=== PATIENT | female | born 1935 | race Caucasian/White ===

== ENCOUNTER 2022-09-08 07:28 | Outpatient (OUT) | payer MEDICARE, OTHER, SELFPAY ==
[2022-09-08 08:37] LABS: BUN Creatinine Ratio 29.3; Calcium 8.9 mg/dL (8.5-10.1); Carbon Dioxide 27.6 mmol/L (21.0-32.0); Chloride 100 mmol/L (98-107); Estimated GFR (African America 41 (>=60); Estimated GFR (Non-African Ame 34 (>=60); Glucose 169 mg/dL (74-106); Potassium 4.6 mmol/L (3.5-5.1); Sodium 136 mmol/L (136-145)
== END 2022-09-08 07:29 ==
LOC: LAB 07:32
PROVIDERS: PCP Internal Medicine; Visit Provider Internal Medicine Cardiovascular Disease
DX: I25.10 Atherosclerotic heart disease of native coronary artery without angina pectoris (principal); I48.91 Unspecified atrial fibrillation; I25.5 Ischemic cardiomyopathy; I50.9 Heart failure, unspecified
CPT/HCPCS: 36415; 80048; 83880

== ENCOUNTER 2023-01-18 10:33 | Outpatient (OUT) | payer MEDICARE, OTHER, SELFPAY ==
[2023-01-18 11:00] LABS: Basophils Absolute Auto 0.1 10^3/uL (0.0-0.1); Basophils Percent Auto 0.9 % (0.2-2.0); Eosinophils Absolute Auto 0.2 10^3/uL (0.0-0.7); Eosinophils Percent Auto 2.2 % (0.9-7.0); Hematocrit 44.2 % (36.0-48.0); Hemoglobin 14.7 g/dL (12.0-16.0); Immature Granulocytes Abs Auto 0.04 10^3/uL (0.00-0.03); Immature Granulocytes Pct Auto 0.5 % (0.0-0.5); Lymphocytes Absolute Auto 2.3 10^3/uL (1.2-3.8); Lymphocytes Percent Auto 28.9 % (20.5-60.0); Mean Corpuscular HGB Conc 33.3 g/dL (29.9-35.2); Mean Corpuscular Hemoglobin 31.7 pg (26.7-34.0); Mean Corpuscular Volume 95.5 fL (81.0-99.0); Mean Platelet Volume 11.4 fL (9.5-13.5); Monocytes Absolute Auto 0.7 10^3/uL (0.3-0.8); Monocytes Percent Auto 9.2 % (1.7-12.0); Neutrophils Absolute Auto 4.6 10^3/uL (1.4-6.5); Neutrophils Percent Auto 58.3 % (43.0-75.0); Platelet Count 193 10^3/uL (150-450); Red Blood Count 4.63 10^6/uL (4.20-5.40); Red Cell Distribution Width 13.3 % (11.0-15.0); White Blood Count 7.9 10^3/uL (4.0-11.0)
[2023-01-18 11:17] LABS: Estimated Average Glucose 160 mg/dL; Glycohemoglobin A1C 7.2 % (4.5-6.2)
[2023-01-18 11:52] LABS: Alanine Aminotransferase 25 U/L (14-59); Albumin Globulin Ratio 0.8; Albumin Level 3.3 g/dL (3.4-5.0); Alkaline Phosphatase 98 U/L (46-116); Anion Gap 14.5; Aspartate Amino Transferase 17 U/L (15-37); BUN Creatinine Ratio 27.1; Bilirubin Total 0.6 mg/dL (0.2-1.0); Calcium 9.1 mg/dL (8.5-10.1); Carbon Dioxide 26.9 mmol/L (21.0-32.0); Chloride 100 mmol/L (98-107); Estimated GFR (African America 48 (>=60); Estimated GFR (Non-African Ame 39 (>=60); Globulin 4.2 g/dL; Glucose 189 mg/dL (74-106); Potassium 4.4 mmol/L (3.5-5.1); Sodium 137 mmol/L (136-145); Total Protein 7.5 g/dL (6.4-8.2)
== END 2023-01-18 10:34 | disposition home or self-care (01) ==
LOC: LAB 10:35
PROVIDERS: PCP Internal Medicine; Visit Provider Internal Medicine
DX: N18.30 Chronic kidney disease, stage 3 unspecified (principal); G62.9 Polyneuropathy, unspecified; E11.9 Type 2 diabetes mellitus without complications
CPT/HCPCS: 36415; 80053; 82607; 83036; 85025

== ENCOUNTER 2023-10-05 07:13 | Outpatient (OUT) | payer MEDICARE, OTHER, SELFPAY ==
--- OUTSIDE RECORDS SUMMARY | 2023-10-05 07:18 | XMS_ITS | CCD ---
Author Organization [facility] Care Team Providers Care Securities Research Analyst Name Role Phone Darrian Benton Unavailable Unavailable GLORIA SARMED Admitting Unavailable GLORIASUNILMED Attending Unavailable ROMARIO BAKER Primary Care Unavailable ER, JOVANNI Referring Unavailable [place] Procedure Practitioner Unavailab le UNKNOWN, PROVIDER Surgeon Unavailable MD Quan Schultz Primary Care Provider [phone] MD Toi Johnson Admit Provider MD Brissa Hoffman Attending Provider FAWWAD, GOOD H Admitting Unavailable FAWWAD, GOOD H Attending Unavailable FAWWAD, GOOD H Consulting Unavailable FAWWAD, GOOD H Primary Care Unavailable FAWWAD, GOOD H Attending Unavailable FAWWAD, GOOD H Consulting Unavailable FAWWAD, GOOD H Primary Care Unavailable FAWWAD, GOOD H Admitting Unavailable FAWWAD, GOOD H Admitting Unavailable FAWWAD, GOOD H Attending Unavailable FAWWAD, GOOD H Consulting Unavailable FAWWAD, GOOD H Primary Care Unavailable DEQUAN Hinojosa, DR HOPE Attending Unavailable MARIBEL .EARLE Consulting UnavailDR JAYY Armando Admitting Unavailable FAWWAD, GOOD H Primary Care Unavailable DR JAYY ARGUELLES Consulting Unavailable ALICIA LAND Consulting Unavailable LAURENCE RAJPUT Consulting Unavailable JENNIFER SWIFT Consulting Unavailable MD Quan Schultz Attending Provider [phone] Faw[place]ad, Good Unavailable Unavailable Unavailable NO FAMILY, PHYSICIAN Primary Care Unavailable Shaikh Schultz Attending Unavailable Fawwad, Good Admitting Unavailable Toi Johnson Admitting Unavailab Shreya Spear Consulting Unavailable Brissa Hoffman Attending Unavailable Shaikh Schultz Primary Care Unavailable Sharron Casey Consulting Unavailable Barney Toledo Consulting Unavailable Joseluis Romero Consulting Unavail able Stephanie Hancock Consulting Unavailable Brandyn Swanson Consulting Unavailab Mackenzie Kimble Consulting Unavailable Yu Barriga Consulting Unavailable SalvadorAzaliaMoncho Najeeb Consulting Unavailab Brian Mcknight Consulting Unavailable Beverly Persaud Consulting Unavailable Janice Harden Consulting Unavailable JOSELUIS CASEY Attending Unavailable JACINTO, JOSELUIS Attending Unavailable Jacinto, Dr. Joseluis Warren Attending Unava ilable Jacinto, Dr. Josleuis Warren Attending Unava ilable Jacinto, Dr. Joseluis Warren Referring Unava iljakob Casey, Dr. Joseluis Warren Attending Unava joshable Marion, Dr. Good Referring Unavailable Jacinto, Dr. Joseluis Warren Attending Unava ilable MARION, Attending Unavailable Allergies Allergy Classification Reported Allergen(s) Allergy Type Date of Onset Reaction(s) Facility (2 sources) Albuterol Drug Allergy 04-06-2018 [facility] Repository (1 source) Albuterol Drug Allergy 06-22-2022 [facility] Rep[facility] Medications Current Medications Medication Drug Class(es) Dates Sig (Normalized) Sig (Original) allopurinol 300 mg oral tablet (6 sources) Xanthine Oxidase Inhibitor Start: 06-22-2022 take 300 mg by mouth once daily Allopurinol Active 300 MG PO Daily June 22, 2022 12:00am Start: 04-13-2019 End: 06-22-2022 take 100 mg by mouth twice daily Allopurinol Discontinued 100 MG PO Twice daily April 13, 2019 1:00am June 22, 2022 3:38am atorvastatin 40 mg oral tablet (4 sources) HMG-CoA Reductase Inhibitor Start: 06-23-2022 take 40 mg by mouth once daily in the evening Atorvastatin Active 40 MG PO Every evening 30 30 June 23, 2022 12:00am furosemide 40 mg oral tablet (6 sources) Loop Diuretic Start: 04-13-2019 End: 06-22-2022 take 40 mg by mouth once daily Furosemide Active 40 MG PO Daily June 22, 2022 12:00am glipiZIDE 10 mg oral tablet (6 sources) Sulfonylurea Start: 06-22-2022 take 10 mg by mouth twice daily Glipizide Active 10 MG PO Twice daily June 22, 2022 12:00am Start: 04-13-2019 End: 06-22-2022 take 5 mg by mouth twice daily Glipizide Discontinued 5 MG PO Twice daily April 13, 2019 1:00am June 22, 2022 3:38am take 1 tablet by raymond twice daily glipiZIDE ER 10 MG Oral Tablet Extended Release 24 Hour Take 1 tablet twice daily Quantity: 180 Refills: 1 Ordered: 01-Jul-2022 DO Active levothyroxine sodium 0.2 mg oral tablet (6 sources) l-Thyroxine Start: 04-13-2019 End: 06-22-2022 take 200 ug by mouth once daily Levothyroxine Active 200 MCG PO Daily June 22, 2022 12:00am take 1 capsule by mo [facility] once daily in the morning Levothyroxine Sodium 200 MCG Oral Capsul e TAKE 1 CAPSULE DAILY IN THE MORNING Quantity: 0 Refills: 0 Ordered: 01-Jul-2022 DO Active losartan potassium 100 mg oral tablet (4 sources) Angiotensin 2 Receptor Deisy Start: 06-22-2022 take 100 mg by mouth once daily Losartan Active 100 MG PO Daily June 22, 2022 12:00am metFORMIN hydrochloride 500 mg oral tablet (6 sources) Biguanide Start: 04-13-2019 End: 06-22-2022 take 500 mg by mouth twice daily Metformin Active 500 MG PO Twice daily June 22, 2022 12:00am 24 hr metoprolol succinate 50 mg extended release oral tablet (8 sources) beta-Adrenergic Deisy Start: 06-23-2022 take 150 mg by mouth once daily Metoprolol Succinate Active 150 MG PO Daily June 23, 2022 12:00am Start: 06-22-2022 End: 06-23-2022 take 100 mg by mouth once daily Metoprolol Succinate Discontinued 100 MG PO Daily June 22, 2022 12:00am June 23, 2022 12:19pm Start: 04-13-2019 End: 06-22-2022 take 50 mg by mouth once daily Metoprolol Succinate Di scontinued 50 MG PO Daily April 13, 2019 1:00am June 22, 2022 3:38am take 3 tablets by mo [facility] once daily Metoprolol Succinate ER 50 MG Oral Tablet Extended Release 24 Hour TAKE 3 TABLET Daily Quantity: 270 Refills: 0 Ordered: 15-Sep-2022 Joseluis Casey DO Active rivaroxaban 15 mg oral tablet (6 sources) Factor Xa Inhibitor Start: 06-23-2022 take 1 tablet by mouth once daily Rivaroxaban (Xarelto) 15 mg Tablet Active 15 MG PO DAILY@17 30 30 June 23, 2022 12:00am Start: 06-22-2022 End: 06-23-2022 take 1 tablet by mouth at bedtime Rivaroxaban (Xarelto) 20 mg tablet Discontinued 20 MG PO Bedtime June 22, 2022 12:00am June 23, 2022 12:19pm Completed/Discontinued Medications Medication Drug Class(es) Dates Sig (Normalized) Sig (Original) clopidogrel 75 mg oral tablet (2 sources) [id number] Platelet Inhibitor Start: 04-13-2019 End: 06-22-2022 take 75 mg by mouth once daily Clopidogrel Discontinued 75 MG PO Daily April 13, 2019 1:00am June 22, 2022 3:38am digoxin 0.125 mg oral tablet (2 sources) Cardiac Glycoside Start: 04-13-2019 End: 04-17-2019 take 125 ug by mouth once daily Digoxin Discontinued 125 MCG PO Daily April 13, 2019 1:00am April 17, 2019 3:13pm probenecid 500 mg oral tablet (2 sources) Start: 04-13-2019 End: 06-22-2022 take 500 mg by mouth once daily Probenecid Discontinued 500 MG PO Daily April 13, 2019 1:00am June 22, 2022 3:38am ramipril 10 mg oral capsule (2 sources) Angiotensin Converting Enzyme Inhibitor Start: 04-13-2019 End: 06-22-2022 take 10 mg by mouth once daily Ramipril Discontinued 10 MG PO Daily April 13, 2019 1:00am June 22, 2022 3:38am warfarin sodium 5 mg oral tablet (2 sources) Vitamin K Antagonist Start: 04-13-2019 End: 06-22-2022 Warfarin Discontinued 0 .ROUTE .COMPLEX April 13, 2019 1:00am June 22, 2022 3:38[address]. Baker in [place] instructions 5mg everyday besides Wednesday and Wednesday which then she takes 7.5mg Problems Active Problems Problem Classification Problem Date Documented [place] Episodic/Chronic Acute and unspecified renal failure (4 sources) Injury of kidney; 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: [Acute kidney failure, unspecified] Onset: 06-22-2022 06-23-2022 Episodic Acute myocardial infarction (1 source) Non-ST elevation (NSTEMI) myocardial infarction; 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: [NON-ST ELEVATION MYOCARDIAL INFARCT] Onset: 06-23-2022 Chronic Aortic; peripheral; and visceral artery aneurysms (2 sources) Ascending aorta dilatation; 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: [Thoracic aortic ectasia] 04-20-2019 Chronic Cardiac dysrhythmias (11 sources) Atrial fibrillation; 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: [Unspecified atrial fibrillation] Onset: 06-22-2022 06-22-2022 Chronic Chronic kidney disease (6 sources) Chronic kidney disease stage 3; 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: [Stage 3 chronic kidney disease] 04-20-2019 Chronic Coagulation and hemorrhagic disorders (5 sources) Factor V Leiden mutation; 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: [Activated protein C resistance] Onset: 06-22-2022 04-20-2019 Chronic Congestive heart failure; nonhypertensive (4 sources) Symptomatic congestive heart failure; 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: [Congestive heart failure, unspecified] Onset: 07-23-2022 Chronic Coronary atherosclerosis and other heart disease (14 sources) Coronary arteriosclerosis; 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: [Atherosclerotic heart disease of [place] coronary artery without angina pectoris] Onset: 06-22-2022 04-13-2019 Chronic Coronary atherosclerosis and other heart disease (4 sources) Presence of coronary angioplasty implant and graft; 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: [Percutaneous transluminal coronary angioplasty status] Onset: 06-22-2022 06-23-2022 Episodic Deficiency and other anemia (2 sources) Anemia; 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: [Anemia, unspecified] 04-15-2019 Episodic Deficiency and other anemia (2 sources) Iron deficiency anemia; 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: [Iron deficiency anemia, unspecified] 04-20-2019 Episodic Diabetes mellitus with complications (6 sources) Type 2 diabetes mellitus with diabetic polyneuropathy; 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: [Type 2 diabetes mellitus with diabetic chronic kidney disease] Onset: 07-03-2021 Chronic Diabetes mellitus without complication (11 sources) Diabetes mellitus; 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: [Type 2 diabetes mellitus without complications] Onset: 12-29-2021 04-20-2019 Chronic Disorders of lipid metabolism (2 sources) Pure hypercholesterolemia , unspecified; 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: [Hyperlipidemia, unspecified] Onset: 07-03-2021 Chronic Esophageal disorders (2 sources) Esophagitis; 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: [Esophagitis determined by endoscopy] 04-20-2019 Episodic Essential hypertension (5 sources) Hypertensive disorder; 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: [Essential (primary) hypertension] Onset: 06-22-2022 04-20-2019 Chronic Genitourinary symptoms and ill-defined conditions (1 source) Personal history of urinary (tract) infections; 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: [PERS HX URINARY TRACT INFECTIONS] Onset: 06-23-2022 Episodic Gout and other crystal arthropathies (2 sources) Gout; 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: [Gout, unspecified] 04-20-2019 Chronic Hypertension with complications and secondary hypertension (1 source) Hypertensive heart disease with heart failure; 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: [HTN HEART DISEASE W/HEART FAIL] Onset: 06-23-2022 Chronic Leukemias (1 source) Acute leukemia of unspecified cell type, in remission; 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: [AC LEUKEMIA UNS CELL TYPE IN REMISS] Onset: 06-23-2022 Chronic Malaise and fatigue (3 sources) Weakness; 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: [WEAKNESS] Onset: 06-21-2022 Episodic Nonspecific chest pain (2 sources) Chest pain; 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: [Chest pain, unspecified] 04-13-2019 Episodic Other aftercare (2 sources) Long-term current use of anticoagulant; 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: [half-way (current) use of anticoagulants] 04-20-2019 Episodic Other aftercare (4 sources) 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; 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: [Long-term (current) use of anticoagulants] Onset: 06-22-2022 06-23-2022 Episodic Other aftercare (1 source) remote computer terminal operator (current) use of oral hypoglycemic drugs; 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: [FLEET MANAGER/DISPATCH USE ORAL HYPOGLYCEMIC DX] Onset: 06-23-2022 Episodic Other aftercare (1 source) Other exterminator (current) drug therapy; 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: [OTH FLEET MANAGER/DISPATCH CURRENT DRUG THERAPY] Onset: 06-23-2022 Episodic Other hematologic conditions (2 sources) Raised cardiac enzyme or marker; 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: [Other specified abnormalities of plasma proteins] 06-22-2022 Episodic Other hematologic conditions (3 sources) Other specified abnormalities of plasma proteins; 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: [Other abnormal blood chemistry] Onset: 06-22-2022 06-23-2022 Episodic Other lower respiratory disease (2 sources) Dyspnea; 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: [Dyspnea, unspecified] 04-13-2019 Episodic Other lower respiratory disease (2 sources) Multiple nodules of lung; 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: [Other nonspecific abnormal finding of lung field] 04-20-2019 Episodic Other lower respiratory disease (3 sources) Dyspnea, unspecified; 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: [Other respiratory abnormalities] Onset: 06-22-2022 06-23-2022 Episodic Other nutritional; endocrine; and metabolic disorders (1 source) Morbid (severe) obesity due to excess calories; 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: [MORBID SEVERE OBES D/T EXCESS TAIWO] Onset: 06-23-2022 Chronic Other nutritional; endocrine; and metabolic disorders (1 source) Body mass index (BMI) 45.0-49.9, adult; 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: [BODY MASS INDEX BMI 45.0-49.9 ADULT] Onset: 06-23-2022 Chronic Other screening for suspected conditions (not mental disorders or infectious disease) (4 sources) Deviation of international normalized ratio from target range; 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: [Abnormal coagulation profile] 04-13-2019 Episodic Phlebitis; thrombophlebitis and thromboembolism (1 source) Personal history of other venous thrombosis and embolism; 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: [PERS HX OTH VENOUS THROMBOSIS AND EMBO] Onset: 06-23-2022 Episodic Pulmonary heart disease (6 sources) History of arterial thrombosis; 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: [Personal history of pulmonary embolism] Onset: 06-22-2022 04-20-2019 Episodic Residual codes; unclassified (2 sources) H/O cardiac surgery; 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: [Other specified postprocedural states] 06-22-2022 Episodic Residual codes; unclassified (3 sources) Other specified postprocedural states; 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: [Other postprocedural status] Onset: 06-22-2022 06-23-2022 Episodic Thyroid disorders (7 sources) Hypothyroidism; 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: [Hypothyroidism, unspecified] Onset: 06-30-2021 04-20-2019 Chronic Unclassified (1 source) CHRN KIDNEY DISEASE STG 3 UNSP; 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: [CHRN KIDNEY DISEASE STG 3 UNSP] Onset: 10-01-2021 Past or Other Problems Problem Classification Problem Date Documented Date Episodic/Chronic Immunizations and screening for infectious disease (2 sources) Patient encounter status; 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: [Other specified vaccination] Resolved: 07-01-2022 Episodic Other nutritional; endocrine; and metabolic disorders (1 source) Hyperuricemia without signs of inflammatory arthritis and tophaceous disease; 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: [HU W/O SIGNS IA AND TOPHACEOUS DZ] Onset: 07-03-2021 Episodic Unclassified (2 sources) Never smoked tobacco; 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: [Never a smoker] Results Test Name Value Interpretation Reference Range Facility Office Visit (Cardiology)on 09-30-2022 Follow-up visit Diagnoses/Problems Assessed Afib (427.31) (I48.91) ASHD (arteriosclerotic heart disease) (414.00) (I25.10) CHF (congestive heart failure), NYHA class III (428.0) (I50.9) Chronic renal insufficiency (585.9) (N18.9) History of coronary artery bypass graft (V45.81) (Z95.1) History of non-ST elevation myocardial infarction (NSTEMI) (412) (I25.2) Ischemic cardiomyopathy (414.8) (I25.5) Diabetes (250.00) (E11.9) Never a smoker Factor V Leiden (289.81) (D68.51) Orders Afib, ASHD (arteriosclerotic heart disease), Diabetes, Ischemic cardiomyopathy ALT - Alanine Aminotransferase, Serum; Status:Active - Retrospective Authorization; Requested for:[id number]; AST; Status:Active - Retrospective Authorization; Requested for:[id number]; Basic Metabolic Panel; Status:Active - Retrospective Authorization; Requested for:[id number]; Lipid Panel; Status:Active - Retrospective Authorization; Requested for:[id number]; SocHx: Never a smoker Tobacco Use Screening; Status:Complete; Done: [id number] Patient Instructions Please bring all medicines, vitamins, and herbal supplements with you when you come to the office. Prescriptions will not be filled unless you are compliant with your follow up appointments or have a follow up appointment scheduled as per instruction of your physician. Refills should be requested at the time of your visit. Follow up in 1 year. lab for one year. will try to obtain most recent labs at [facility] in last two weeks if no lipid will order and then discuss with Dr. Joseluis Casey DO Repatha start due to statin intolerance. ( patient does not want injections at the age of 87 years) Chief Complaint MOHAN ESPINOZA is being seen for a 12 week follow-up of. 87-year-old female returns for follow-up following recent stress imaging, revealing completely normal perfusion scan and normal ejection fraction. Details of her cardiovascular history are noted in my original consult note and last office note as well She is currently asymptomatic from a cardiovascular standpoint with no angina, hospitalizations for heart failure, nitrate usage Her underlying history is noted for ASHD with remote CABG, chronic atrial fibrillation, diabetes, obesity, factor V Leiden deficiency with previous pulmonary embolism. She is intolerant to all statins and is unwilling to try injectable therapies at this time. She had renal profile performed in June revealing elevated glucose and creatinine of 1.6 we have addressed this with her and regards to her diabetes and kidney function. Recommendations: Follow-up in 1 year on same therapies we attempted to engage patient regarding consideration for injectable therapies for cholesterol, but she refuses. Surgical History Problems History of Appendectomy History of Complete colonoscopy Managed By: Yoan Dobbs MD (Gastroenterology) History of [place] filter placement Past Medical History Problems History of Encounter for immunization (V03.89) (Z23) Resolved Date: 01 Jul 2022 Current Meds Medication NameInstruction Allopurinol 300 MG Oral TabletTake 1 tablet daily Furosemide 40 MG Oral TabletTAKE 1 TABLET DAILY. glipiZIDE ER 10 MG Oral Tablet Extended Release 24 HourTake 1 tablet twice daily Levothyroxine Sodium 200 MCG Oral CapsuleTAKE 1 CAPSULE DAILY IN THE MORNING Losartan Potassium 100 MG Oral TabletTAKE 1 TABLET DAILY. metFORMIN HCl - 500 MG Oral TabletTake 1 tablet twice daily Metoprolol Succinate ER 50 MG Oral Tablet Extended Release 24 HourTAKE 3 TABLET Daily Xarelto 15 MG Oral TabletTake 1 tablet daily Allergies Medication Statins Adverse Reaction; Myalgia; Recorded By: Su Temple; 09/30/2022 9:41:02 AM Social History Problems Caffeine use (V49.89) (Z78.9) 2.5 cups coffee in morning Never a smoker No alcohol use No illicit drug use Review of Systems Constitutional: not feeling tired. Cardiovascular: no intermittent leg claudication and as noted in HPI. Respiratory: no cough and no shortness of breath. Gastrointestinal: no change in bowel habits and no blood in stools. Integumentary: no skin rashes. Neurological: no seizures and no frequent falls. All other systems have been reviewed and are negative for complaint. Vitals Vital Signs Recorded: [id number] 09:09AM Heart Rate56 [id number], LUE, Sitting [id number], LUE, Sitting Height5 ft 8 in Tobacco Useb) No Physical Exam Constitutional: alert and in no acute distress. Neck: neck is supple, symmetric, trachea midline, no masses and no thyromegaly . Pulmonary: no increased work of breathing or signs of respiratory distress and lungs clear to auscultation. Cardiovascular: carotid pulses 2+ bilaterally with no bruit , JVP was normal, no thrills , irregular rate controlled rhythm., pedal pulses 2+ bilaterally , no edema and Radial: left 0. Abdomen: abdomen non-tender, no masses and no hepatomegaly . Skin: skin warm and dry, normal skin turgor . Psyc (more content not included)... Normal [facility] CARDIAC STRESS/REST INJE CTIONon 07-23-2022 [facility] CARDIAC STRESS/REST INJECTION Patient Name: MOHAN ESPINOZA STUDY: MYOCARDIAL PERFUSION STRESS TEST WITH LEXISCAN Performing facility: [facility], [address] [place] [address], [address], [address] Provider: Leanna Casey DO, FACC PCP: Dr. Ruben Schultz Supervising provider: Yu Barriga MD, [facility] INDICATION: A-fib ASHD CHF HISTORY: Gender: F; Age: 87 y/o ; Height: 0 cm; Weight: 815.4358335 kg. CAD; Diabetes; Previous [place]; Arrhythmias; Denies smoking. CABG on 2007. COMPARISON: No comparison. ACCESSION NUMBER(S): [id number]; [id number]; [id number] ORDERING CLINICIAN: JOSELUIS CASEY TECHNIQUE: TWO DAY protocol. Stress injection: Date:07-23-22, 35.8 mCi of Myoview IV 20 seconds after rapid injection of Lexiscan. Rest injection: Date: 07-23-22, 35.2 mCi of Myoview IV at rest. The patient had a rapid injection of 0.4 mg of Lexiscan IV over 10 seconds. Imaging was performed by gated tomographic technique. Reason for Lexiscan: Wheelchair STRESS TEST DATA: Resting heart rate was 81 BPM. Resting blood pressure was 104/68 mmHg. Peak blood pressure was 104/62 mmHg. Peak heart rate was 94 BPM. TEST TERMINATED DUE TO: Protocol completed FINDINGS: STRESS TEST RESULTS: Resting electrocardiogram revealed atrial fibrillation with nonspecific ST-T changes. There were no significant ischemic ECG changes or dysrhythmias. The patient did not have chest pains/symptoms during procedure. There was a normal recovery phase. IMAGING RESULTS: Image quality was good. Rest and stress tomographic images were reviewed and revealed normal perfusion without evidence of ischemia, myocardial infarction, or left ventricular dilatation with stress. Overall left ventricular systolic function appeared to be normal without regional wall motion abnormalities. Ejection fraction was 60%. TID is 0.83 and is normal. There when evidence of breast attenuation artifact. IMPRESSION: Normal Lexiscan Myoview cardiac perfusion stress test. No evidence of ischemia or myocardial infarction by perfusion imaging. Normal left ventricular systolic function, ejection fraction 60%. No previous study available for comparison. Electronically signed by: STEPHANIE HANCOCK MD Normal [facility] Height or Weight NOT Doneon 07-01-2022 Adult depression screening assessment Yes [facility] [employer] 250 DO Work Phone: Adult depression screening assessment Moderately Severe (15-19) [facility] [employer] heck 250 DO Work Phone: Fall risk assessment a) No falls within the last year [facility] [employer] heck 250 DO Work Phone: Tobacco use status [facility] b) No M [facility] [employer] heck 250 DO Work Phone: Height or Weight NOT Done 3-Nearly every day [facility] [employer] heck 250 DO Work Phone: Height or Weight NOT Done 1-Several days [facility] [employer] y 250 DO Work Phone: Height or Weight NOT Done 0-Not at all [facility] [employer] y 250 DO Work Phone: Height or Weight NOT Done Very Difficult [facility] [employer] y 250 DO Work Phone: Office Visit (Cardiology)on 07-01-2022 Follow-up visit Diagnoses/Problems Assessed ASHD (arteriosclerotic heart disease) (414.00) (I25.10) History of coronary artery bypass graft (V45.81) (Z95.1) Afib (427.31) (I48.91) Chronic renal insufficiency (585.9) (N18.9) Ischemic cardiomyopathy (414.8) (I25.5) CHF (congestive heart failure), NYHA class III (428.0) (I50.9) History of non-ST elevation myocardial infarction (NSTEMI) (412) (I25.2) Never a smoker Diabetes (250.00) (E11.9) Orders Afib, ASHD (arteriosclerotic heart disease), CHF (congestive heart failure), NYHA class III NM Cardiac Stress/Rest Nuclear Med Order; Status:Hold For - Scheduling,Retrospect wilson Authorization; Requested for:[id number]; Radiologist to Determine Optimal Study : Y What are the patient's signs and symptoms? : cad afib Afib, ASHD (arteriosclerotic heart disease), CHF (congestive heart failure), NYHA class III, Ischemic cardiomyopathy Basic Metabolic Panel; Status:Active - Retrospective Authorization; Requested for:[id number]; Brain Natriuretic Peptide BNP; Status:Active - Retrospective Authorization; Requested for:[id number]; Health Maintenance Depression Follow-up Visit Outpatient Follow-up Status: Complete - Retrospective Authorization Done: [id number] SocHx: Never a smoker Tobacco Use Screening; Status:Complete; Done: [id number] Tobacco Use Screening; Status:Complete; Done: [id number] Patient Instructions Please bring all medicines, vitamins, and herbal supplements with you when you come to the office. Prescriptions will not be filled unless you are compliant with your follow up appointments or have a follow up appointment scheduled as per instruction of your physician. Refills should be requested at the time of your visit. Follow up in [12 ] weeks Chief Complaint [facility] D/C 06/23/22. 86-year-old female returns for follow-up following recent hospitalization, and transfer from outside hospital with elevated biomarkers, symptoms of UTI, abdominal discomfort, controlled atrial fibrillation and acute on chronic renal failure. Her cardiology consultation is reviewed in detail. In brief she has a history of remote CABG, previously has been seen by Dr. Randolph for her cardiology care. She was seen previously by myself with similar presentation and atrial fibrillation in 2019, she remains in atrial fibrillation currently and since that time it appears. She has a history of factor V Leiden deficiency, remote pulmonary embolism, morbid obesity, A-fib/flutter, diastolic congestive heart failure, chronic kidney disease, diabetes, ambulatory disability and chronic anticoagulation. Her initial troponins were 279 and trended down to 182, BNP was elevated at 507, chest x-ray was clear, ECG revealed sinus rhythm with no ST changes and she had no anginal complaints Echocardiogram revealed mildly reduced LV function at 45% which is a change from her 2020 echo (normal at that time) Her coronary anatomy and graft anatomy is inclusive for SAMSON to LAD, GRICELDA to the diagonal 2, SVG to the OM 2, SVG to the PDA branch performed in July 2007 Recommendations, proceed with Lexiscan stress imaging, chemistry and BNP profiles, follow-up for report thereafterwards Surgical History Problems History of Appendectomy History of Complete colonoscopy Managed By: Dilia RAMIREZ, Yoan Li (Gastroenterology) History of [place] filter placement Past Medical History Problems History of Encounter for immunization (V03.89) (Z23) Resolved Date: 01 Jul 2022 Current Meds Medication NameInstruction Allopurinol 300 MG Oral TabletTake 1 tablet daily Atorvastatin Calcium 40 MG Oral TabletTAKE 1 TABLET AT BEDTIME Furosemide 40 MG Oral TabletTAKE 1 TABLET DAILY. glipiZIDE ER 10 MG Oral Tablet Extended Release 24 HourTake 1 tablet twice daily Levothyroxine Sodium 200 MCG Oral CapsuleTAKE 1 CAPSULE DAILY IN THE MORNING Losartan Potassium 100 MG Oral TabletTAKE 1 TABLET DAILY. metFORMIN HCl - 500 MG Oral TabletTake 1 tablet twice daily Metoprolol Succinate ER 50 MG Oral Tablet Extended Release 24 HourTAKE 3 TABLET Daily Xarelto 15 MG Oral TabletTake 1 tablet daily Allergies Medication No Known Drug Allergies Recorded By: Nallely Gibbs; 07/01/2022 9:26:09 AM Social History Problems Caffeine use (V49.89) (Z78.9) 2.5 cups coffee in morning Never a smoker No alcohol use No illicit drug use Review of Systems Constitutional: not feeling tired. Cardiovascular: no intermittent leg claudication and as noted in HPI. Respiratory: shortness of breath during exertion, but no cough and no shortness of breath. Gastrointestinal: no change in bowel habits and no blood in stools. Integumentary: no skin rashes. Neurological: no seizures and no frequent falls. All other systems have been reviewed and are negative for complaint. Vitals Vital Signs Recorded: 01Jul2022 09:34AM Heart Rate68, L Radial [id number], RUE, Sitting [id number], RUE, Sitting Height5 ft 8 in Height or Weight NOT Done (more content not included)... Normal [facility] Basic Metabolic Panelon 06-20 GFR/1.73 sq M.predicted MDRD (S/P/Bld) [Vol rate/Area] 30.239 mL/min/{1.73_m2} Normal [facility] Comment on above: Performed By: #### C K, HS TROP #### [facility] [address] [place] [id number] [place] Calcium [Mass/volume] in Ser um or PlasmaOrdered By: Brissa Hoffman on 06-29-2022 Calcium [Mass/Vol] 8.8 mg/dL Normal 8.6-10.3 [facility] Comment on above: Result Comment: PERF ORMED BY: [place] [address] PATHOLOGIST SITE ADMINISTRATOR CINDY BRADSHAW M.D. Performed By: #### C K, HS TROP #### [facility] [address] [place] [address] [place] Carbon dioxide, total [Moles /volume] in Serum or PlasmaOrdered By: Brissa Hoffman on 06-29-2022 CO2 [Moles/Vol] 32.3 mmol/L High 21.0-31.0 [facility] Comment on above: Performed By: #### C K, HS TROP #### [facility] [address] [place] [address] [place] Chloride [Moles/volume] in S octaviano or PlasmaOrdered By: Brissa Hoffman on 06-29-2022 Chloride [Moles/Vol] 100 mmol/L Normal 98-107 [facility] Comment on above: Performed By: #### C K, HS TROP #### [facility] [address] [place] [id number] [place] Creatinine [Mass/volume] in Serum or PlasmaOrdered By: Brissa Hoffman on 06-29-2022 Creatinine [Mass/Vol] 1.66 mg/dL High 0.60-1.20 [facility] Comment on above: Performed By: #### C K, HS TROP #### [facility] [address] [place] [address] [place] Glucose [Mass/volume] in Ser um or PlasmaOrdered By: Brissa Hoffman on 06-29-2022 Glucose [Mass/Vol] 245 mg/dL High 70-100 [facility] Comment on above: ADA recommended refe rence rangeRandom Glucose Reference Range is dependent on time and content of last meal. Glucose of more than 200 mg/dL in a nonstressed, ambulatory subject supports the diagnosis of Diabetes Mellitus. Result Comment: [place] om Glucose Reference Range is dependent on time and content of last meal. Glucose of more than 200 mg/dL in a nonstressed, ambulatory subject supports the diagnosis of Diabetes Mellitus. ADA recommended reference range Performed By: #### C K, HS TROP #### [facility] [address] No Panel InformationOrdered By: Brissa Hoffman on 06-29-2022 Estimated GFR (CKD-EPI) 30.239 mL/Min [facility] Creatinine Clearance (Chem N/A [facility] Potassium [Moles/volume] in Serum or PlasmaOrdered By: Brissa Hoffman on 06-29-2022 Potassium [Moles/Vol] 4.6 mmol/L Normal 3.5-5.1 [facility] Comment on above: Performed By: #### C K, HS TROP #### [facility] [address] [place] [address] [place] Serum or plasma anion gap de terminationOrdered By: Brissa Hoffman on 06-29-2022 Anion gap [Moles/Vol] 9.3 mmol/L Normal 6.0-15.0 [facility] Comment on above: Performed By: #### C K, HS TROP #### [facility] [address] [place] [address] [place] Sodium [Moles/volume] in Ser um or PlasmaOrdered By: Brissa Hoffman on 06-29-2022 Sodium [Moles/Vol] 137 mmol/L Normal 136-145 [facility] Comment on above: Performed By: #### C Beth HS TROP #### [facility] [address] Urea nitrogen [Mass/volume] in Serum or PlasmaOrdered By: Brissa Hoffman on 06-29-2022 Urea nitrogen [Mass/Vol] 31 mg/dL High 7-25 [facility] Comment on above: Performed By: #### C Beth, HS TROP #### [facility] [address] Basic Metabolic Panelon Anion gap [Moles/Vol] 10.9 mmol/L Normal 6.0-15.0 [facility] Comment on above: Performed By: #### G LULS #### Point of Care testing , Calcium [Mass/Vol] 8.7 mg/dL Normal 8.6-10.3 [facility] Comment on above: Performed By: #### G LULS #### Point of Care testing , Chloride [Moles/Vol] 102 mmol/L Normal 98-107 [facility] Comment on above: Performed By: #### G LULS #### Point of Care testing , CO2 [Moles/Vol] 26.3 mmol/L Normal 21.0-31.0 [facility] Comment on above: Performed By: #### G LULS #### Point of Care testing , Creatinine [Mass/Vol] 1.44 mg/dL High 0.60-1.20 [facility] Comment on above: Performed By: #### G LULS #### Point of Care testing , Creatinine Clr Calc Pharmacy 42.65 Normal [facility] Comment on above: Result Comment: PERF ORMED BY: [facility] [address] [place] [address] PATHOLOGIST SITE ADMINISTRATOR CINDY BRADSHAW M.D. Performed By: #### G LULS #### Point of Care testing , GFR/1.73 sq M.predicted MDRD (S/P/Bld) [Vol rate/Area] 35.865 mL/min/{1.73_m2} Normal [facility] Comment on above: Performed By: #### G LULS #### Point of Care testing , Glucose [Mass/Vol] 255 mg/dL High 70-100 [facility] Comment on above: Result Comment: [place] Glucose Reference Range is dependent on time and content of last meal. Glucose of more than 200 mg/dL in a nonstressed, ambulatory subject supports the diagnosis of Diabetes Mellitus. ADA recommended reference range Performed By: #### G LULS #### Point of Care testing , Potassium [Moles/Vol] 4.2 mmol/L Normal 3.5-5.1 [facility] Comment on above: Performed By: #### G LULS #### Point of Care testing , Sodium [Moles/Vol] 135 mmol/L Low 136-145 [facility] Comment on above: Performed By: #### G LULS #### Point of Care testing , Urea nitrogen [Mass/Vol] 37 mg/dL High 7-25 [facility] Comment on above: Performed By: #### G LULS #### Point of Care testing , Basophils Auto (Bld) [#/Vol] Ordered By: Brissa Hoffman on 06-23-2022 Basophils (Bld) [#/Vol] 0.1 10*3/uL 0.0-0.2 [facility] Basophils/100 WBC Auto (Bld) Ordered By: Brissa Hoffman on 06-23-2022 Basophils/100 WBC (Bld) 1.0 % . [facility] Calcium [Mass/volume] in Ser um or PlasmaOrdered By: Sharron Casey on 06-23-2022 Calcium [Mass/Vol] 8.7 mg/dL 8.6-10.3 [facility] Carbon dioxide, total [Moles /volume] in Serum or PlasmaOrdered By: Sharron Casey on 06-23-2022 CO2 [Moles/Vol] 26.3 mmol/L 21.0-31.0 [facility] Chloride [Moles/volume] in S octaviano or PlasmaOrdered By: Sharron Casey on 06-23-2022 Chloride [Moles/Vol] 102 mmol/L 98-107 [facility] Complete Blood Count Auto Di ffon 06-23-2022 Basophils (Bld) [#/Vol] 0.1 10*3/uL Normal 0.0-0.2 [facility] Comment on above: Result Comment: PERF ORMED BY: [facility] [place] [address] PATHOLOGIST SITE ADMINISTRATOR CINDY BRADSHAW M.D. Performed By: #### G LULS #### Point of Care testing , Basophils/100 WBC (Bld) 1.0 % Normal . [facility] Comment on above: Performed By: #### G LULS #### Point of Care testing , Eosinophils (Bld) [#/Vol] 0.1 10*3/uL Normal 0.0-0.45 [facility] Comment on above: Performed By: #### G LULS #### Point of Care testing , Eosinophils/100 WBC (Bld) 1.8 % Normal . [facility] Comment on above: Performed By: #### G LULS #### Point of Care testing , Erythrocyte distribution width (RBC) [Ratio] 14.7 % Normal 11.9-15.3 [facility] Comment on above: Performed By: #### G LULS #### Point of Care testing , Hematocrit (Bld) [Volume fraction] 41.2 % Normal 34.0-46.4 [facility] Comment on above: Performed By: #### G LULS #### Point of Care testing , Hemoglobin (Bld) [Mass/Vol] 13.6 g/dL Normal 11.8-15.4 [facility] Comment on above: Performed By: #### G LULS #### Point of Care testing , Lymphocytes (Bld) [#/Vol] 1.6 10*3/uL Normal 1.00-4.8 [facility] Comment on above: Performed By: #### G LULS #### Point of Care testing , Lymphocytes/100 WBC (Bld) 24.6 % Normal . [facility] Comment on above: Performed By: #### G STEVELS #### Point of Care testing , MCH (RBC) [Entitic mass] 30.9 pg Normal 24.7-34.3 [facility] Comment on above: Performed By: #### G LULS #### Point of Care testing , MCV (RBC) [Entitic vol] 93.5 fL Normal 80-100 [facility] Comment on above: Performed By: #### G LULS #### Point of Care testing , Mean Corpuscular HGB Conc 33.0 g/dL Normal 32.0-35.0 [facility] Comment on above: Performed By: #### G STEVELS #### Point of Care testing , Monocytes (Bld) [#/Vol] 0.8 10*3/uL Normal 0.0-0.8 [facility] Comment on above: Performed By: #### G STEVELS #### Point of Care testing , Monocytes/100 WBC (Bld) 12.9 % Normal . [facility] Comment on above: Performed By: #### G STEVELS #### Point of Care testing , Neutrophils (Bld) [#/Vol] 3.8 10*3/uL Normal 1.8-7.7 [facility] Comment on above: Performed By: #### G LULS #### Point of Care testing , Neutrophils/100 WBC (Bld) 59.7 % Normal . [facility] Comment on above: Performed By: #### G LULS #### Point of Care testing , NRBC% 0.0 /100{WBC} Normal 0-0.5 [facility] Comment on above: Performed By: #### G LULS #### Point of Care testing , Platelet mean volume (Bld) [Entitic vol] 10.2 fL Normal 6.3-10.7 [facility] Comment on above: Performed By: #### G LULS #### Point of Care testing , Platelets (Bld) [#/Vol] 147 10*3/uL Low 150-450 [facility] Comment on above: Performed By: #### G LULS #### Point of Care testing , RBC (Bld) [#/Vol] 4.41 10*6/uL Normal 3.60-5.00 [facility] Comment on above: Performed By: #### G AURELIA #### Point of Care testing , WBC (Bld) [#/Vol] 6.4 10*3/uL Normal 3.8-11.6 [facility] Comment on above: Performed By: #### G AURELIA #### Point of Care testing , Creatine Kinaseon 06-23-2022 CK [Catalytic activity/Vol] 74 U/L Normal [facility] Comment on above: Performed By: #### Olimpia K, HS TROP #### [facility] [address] [place] [address] [place] CK [Catalytic activity/Vol] 88 U/L Normal [facility] Comment on above: Performed By: #### Olimpia Campos, HS TROP #### [facility] [address] [place] [address] [place] Creatine kinase [Enzymatic a ctivity/volume] in Serum or PlasmaOrdered By: Sharron Casey on 06-23-2022 CK [Catalytic activity/Vol] 74 U/L [facility] Creatinine [Mass/volume] in Serum or PlasmaOrdered By: Sharron Casey on 06-23-2022 Creatinine [Mass/Vol] 1.44 mg/dL 0.60-1.20 [facility] Eosinophils Auto (Bld) [#/Vo l]Ordered By: Brissa Hoffman on 06-23-2022 Eosinophils (Bld) [#/Vol] 0.1 10*3/uL 0.0-0.45 [facility] Eosinophils/100 WBC Auto (Bl d)Ordered By: Brissa Hoffman on 06-23-2022 Eosinophils/100 WBC (Bld) 1.8 % . [facility] Erythrocyte distribution wid th Auto (RBC) [Ratio]Ordered By: Brissa Hoffman on 06-23-2022 Erythrocyte distribution width (RBC) [Ratio] 14.7 % 11.9-15.3 [facility] Glucose Glucometer (BldC) [M ass/Vol]Ordered By: Brissa Hoffman on 06-23-2022 Glucose [Mass/Vol] 230 mg/dL [facility] Comment on above: Random Glucose Refer ence Range is dependent on time and content of last meal. Glucose of more than 200 mg/dL in a nonstressed, ambulatory subject supports the diagnosis of Diabetes Mellitus. Glucose Poct Glucometerson 0 06-23-2022 Glucose [Mass/Vol] 230 mg/dL Normal [facility] Comment on above: Result Comment: [place] om Glucose Reference Range is dependent on time and content of last meal. Glucose of more than 200 mg/dL in a nonstressed, ambulatory subject supports the diagnosis of Diabetes Mellitus. PERFORMED BY: [place] [address] PATHOLOGIST SITE ADMINISTRATOR CINDY BRADSHAW M.D. Performed By: #### G AURELIA #### Point of Care testing , Glucose [Mass/Vol] 166 mg/dL Normal [facility] Comment on above: Result Comment: [place] om Glucose Reference Range is dependent on time and content of last meal. Glucose of more than 200 mg/dL in a nonstressed, ambulatory subject supports the diagnosis of Diabetes Mellitus. PERFORMED BY: [place] [address] PATHOLOGIST SITE ADMINISTRATOR CINDY BRADSHAW M.D. Performed By: #### C K, [facility] #### [address] Glucose [Mass/volume] in Ser um or PlasmaOrdered By: Sharron Casey on 06-23-2022 Glucose [Mass/Vol] 255 mg/dL 70-100 [facility] Comment on above: ADA recommended refe rence rangeRandom Glucose Reference Range is dependent on time and content of last meal. Glucose of more than 200 mg/dL in a nonstressed, ambulatory subject supports the diagnosis of Diabetes Mellitus. Hematocrit Auto (Bld) [Volum e fraction]Ordered By: Brissa Hoffman on 06-23-2022 Hematocrit (Bld) [Volume fraction] 41.2 % 34.0-46.4 [facility] Hemoglobin [Mass/volume] in BloodOrdered By: Brissa Hoffman on 06-23-2022 Hemoglobin (Bld) [Mass/Vol] 13.6 g/dL 11.8-15.4 [facility] Leukocytes [#/volume] correc ruma for nucleated erythrocytes in Blood by Automated counOrdered By: Brissa Hoffman on 06-23-2022 WBC corrected for nucl RBC Auto (Bld) [#/Vol] 6.4 10*3/uL 3.8-11.6 [facility] Lymphocytes Auto (Bld) [#/Vo l]Ordered By: Brissa Hoffman on 06-23-2022 Lymphocytes (Bld) [#/Vol] 1.6 10*3/uL 1.00-4.8 [facility] Lymphocytes/100 WBC Auto (Bl d)Ordered By: Brissa Hoffman on 06-23-2022 Lymphocytes/100 WBC (Bld) 24.6 % . [facility] MCH Auto (RBC) [Entitic mass ]Ordered By: Brissa Hoffman on 06-23-2022 MCH (RBC) [Entitic mass] 30.9 pg 24.7-34.3 [facility] MCHC Auto (RBC) [Mass/Vol]Or dered By: Brissa Hoffman on 06-23-2022 MCHC (RBC) [Mass/Vol] 33.0 g/dL 32.0-35.0 [facility] MCV Auto (RBC) [Entitic vol] Ordered By: Brissa Hoffman on 06-23-2022 MCV (RBC) [Entitic vol] 93.5 fL 80-100 [facility] Monocytes Auto (Bld) [#/Vol] Ordered By: Brissa Hoffman on 06-23-2022 Monocytes (Bld) [#/Vol] 0.8 10*3/uL 0.0-0.8 [facility] Monocytes/100 WBC Auto (Bld) Ordered By: Brissa Hoffman on 06-23-2022 Monocytes/100 WBC (Bld) 12.9 % . [facility] Neutrophils Auto (Bld) [#/Vo l]Ordered By: Brissa Hoffman on 06-23-2022 Neutrophils (Bld) [#/Vol] 3.8 10*3/uL 1.8-7.7 [facility] Neutrophils/100 WBC Auto (Bl d)Ordered By: Brissa Hoffman on 06-23-2022 Neutrophils/100 WBC (Bld) 59.7 % . [facility] No Panel InformationOrdered By: Sharron Casey on 06-23-2022 Estimated GFR (CKD-EPI) 35.865 mL/Min [facility] Creatinine Clearance (Chem 42.65 [facility] Nucleated erythrocytes [Pres ence] in Blood by Automated countOrdered By: Brissa Hoffman on 06-23-2022 Nucleated RBC Auto Ql (Bld) 0.0 /100{WBC} 0-0.5 [facility] Platelet mean volume Auto (B ld) [Entitic vol]Ordered By: Brissa Hoffman on 06-23-2022 Platelet mean volume (Bld) [Entitic vol] 10.2 fL 6.3-10.7 [facility] Platelets Auto (Bld) [#/Vol] Ordered By: Brissa Hoffman on 06-23-2022 Platelets (Bld) [#/Vol] 147 10*3/uL 150-450 [facility] Potassium [Moles/volume] in Serum or PlasmaOrdered By: Sharrno Casey on 06-23-2022 Potassium [Moles/Vol] 4.2 mmol/L 3.5-5.1 [facility] RBC Auto (Bld) [#/Vol]Ordere d By: Brissa Hoffman on 06-23-2022 RBC (Bld) [#/Vol] 4.41 10*6/uL 3.60-5.00 [facility] Serum or plasma anion gap de terminationOrdered By: Sharron Casey on 06-23-2022 Anion gap [Moles/Vol] 10.9 mmol/L 6.0-15.0 [facility] Sodium [Moles/volume] in Ser um or PlasmaOrdered By: Sharron Casey on 06-23-2022 Sodium [Moles/Vol] 135 mmol/L 136-145 [facility] Troponin I High Sensitivityo n 06-23-2022 Troponin I High Sensitivity 65.3 pg/mL Off scale high 0.0-15.0 [facility] Comment on above: Result Comment: Crit ical Result : Called to and read back by: CHELY HERNADEZ at: 06/23/2022 10:49:30 by:LEENA PERFORMED BY: [phone] PATHOLOGIST SITE ADMINISTRATOR CINDY BRADSHAW M.D. Performed By: #### C K, HS TROP #### [facility] [address] [place] [address] Troponin I High Sensitivity 75.9 pg/mL Off scale high 0.0-15.0 [facility] Comment on above: Result Comment: Crit ical Result : Called to and read back by: RICARDO LANDRUM at: 06/23/2022 03:00:48 by:[id number] PERFORMED BY: [place] [phone] PATHOLOGIST SITE ADMINISTRATOR CINDY BRADSHAW M.D. Performed By: #### C K, HS TROP #### [facility] [address] [place] [address] Troponin I.cardiac [Mass/vol ume] in Serum or Plasma by Detection limit <= 0.01 ng/Ordered By: Sharron Casey on 06-23-2022 Troponin I.cardiac DL <= 0.01 ng/mL [Mass/Vol] 65.3 pg/mL 0.0-15.0 [facility] Comment on above: Critical Result : Ca lled to and read back by: CHELY HERNADEZ at: 06/23/2022 10:49:30 by:LEENA Urea nitrogen [Mass/volume] in Serum or PlasmaOrdered By: Sharron Casey on 06-23-2022 Urea nitrogen [Mass/Vol] 37 mg/dL 7-25 [facility] WBC Auto (Bld) [#/Vol]Ordere d By: Brissa Hoffman on 06-23-2022 WBC (Bld) [#/Vol] 6.4 10*3/uL 3.8-11.6 [facility] A1C with Estimated Average Darnell blackwell 06-22-2022 Glucose [Mass/Vol] 194 mg/dL Normal [facility] Comment on above: Result Comment: PERF ORMED BY: [facility] [address] [place] [address] PATHOLOGIST SITE ADMINISTRATOR CINDY BRADSHAW M.D. Performed By: #### G LULS #### Point of Care testing , HbA1c (Bld) [Mass fraction] 8.4 % High 4.3-5.6 [facility] Comment on above: Result Comment: Incr eased risk for diabetes: 5.7 - 6.4 diabetes: >6.4 glycemic control for adults with diabetes: <7.0 Performed By: #### G LULS #### Point of Care testing , Alanine aminotransferase [En zymatic activity/volume] in Serum or PlasmaOrdered By: Marcela Cano on 06-22-2022 ALT [Catalytic activity/Vol] 13 U/L 7-52 [facility] Albumin [Mass/volume] in Ser um or Plasma by Bromocresol green (BCG) dye binding methoOrdered By: Marcela Cano on 06-22-2022 Albumin BCG dye [Mass/Vol] 3.4 g/dL 3.5-5.7 [facility] Alkaline phosphatase [Enzyma tic activity/volume] in Serum or PlasmaOrdered By: Marcela Cano on 06-22-2022 ALP [Catalytic activity/Vol] 74 U/L 34-104 [facility] Aspartate aminotransferase [ Enzymatic activity/volume] in Serum or PlasmaOrdered By: Marcela Cano on 06-22-2022 AST [Catalytic activity/Vol] 16 U/L 13-39 [facility] B-Type Natriuretic Peptideon 06-22-2022 Natriuretic peptide B (Bld) [Mass/Vol] 507.0 pg/mL High 5-100 [facility] Comment on above: Result Comment: PERF ORMED BY: [facility] [address] [place] [address] PATHOLOGIST SITE ADMINISTRATOR CINDY BRADSHAW M.D. Performed By: #### C K, HS TROP #### [facility] [address] Bilirubin.total [Mass/volume ] in Serum or PlasmaOrdered By: Marcela Cano on 06-22-2022 Bilirubin [Mass/Vol] 0.7 mg/dL 0.3-1.0 [facility] Cholesterol [Mass/volume] in Serum or PlasmaOrdered By: Marcela Cano on 06-22-2022 Cholesterol [Mass/Vol] 162 mg/dL 140-200 [facility] Comment on above: Chol less than 200 m g/dl low riskChol 201-239 mg/dl borderline riskChol 240 mg/dl and greater high risk Cholesterol in LDL Calc [Mas s/Vol]Ordered By: Marcela Cano on 06-22-2022 Cholesterol in LDL [Mass/Vol] 105 mg/dL 0-100 [facility] Comment on above: LDL ATP III CLASSIFI CATIONLDL less than 100 mg/dL OptimalLDL 100-129 mg/dL Near or above optimalLDL 130-159 mg/dL Borderline highLDL 160-189 mg/dL HighLDL greater than 189 mg/dL Very high Cholesterol in VLDL Calc [Ma ss/Vol]Ordered By: Marcela Cano on 06-22-2022 Cholesterol in VLDL [Mass/Vol] 32 mg/dL [facility] Complete Blood Count Auto Di ffon 06-22-2022 Basophils (Bld) [#/Vol] 0.1 10*3/uL Normal 0.0-0.2 [facility] Comment on above: Result Comment: PERF ORMED BY: [place] [address] PATHOLOGIST SITE ADMINISTRATOR CINDY BRADSHAW M.D. Performed By: #### C K, HS TROP #### [facility] [address] [place] [address] [place] Basophils/100 WBC (Bld) 0.9 % Normal . [facility] Comment on above: Performed By: #### C K, HS TROP #### [facility] [address] [place] [address] [place] Eosinophils (Bld) [#/Vol] 0.0 10*3/uL Normal 0.0-0.45 [facility] Comment on above: Performed By: #### C K, HS TROP #### [facility] [address] Eosinophils/100 WBC (Bld) 0.1 % Normal . [facility] Comment on above: Performed By: #### C K, HS TROP #### [address] Erythrocyte distribution width (RBC) [Ratio] 14.7 % Normal 11.9-15.3 [facility] Comment on above: Performed By: #### C K, HS TROP #### [address] Hematocrit (Bld) [Volume fraction] 42.1 % Normal 34.0-46.4 [facility] Comment on above: Performed By: #### C K, HS TROP #### [address] Hemoglobin (Bld) [Mass/Vol] 13.9 g/dL Normal 11.8-15.4 [facility] Comment on above: Performed By: #### C K, HS TROP #### [address] Lymphocytes (Bld) [#/Vol] 1.4 10*3/uL Normal 1.00-4.8 [facility] Comment on above: Performed By: #### C K, HS TROP #### [address] Lymphocytes/100 WBC (Bld) 13.4 % Normal . [facility] Comment on above: Performed By: #### C K, HS TROP #### [address] MCH (RBC) [Entitic mass] 30.6 pg Normal 24.7-34.3 [facility] Comment on above: Performed By: #### C K, HS TROP #### [address] MCV (RBC) [Entitic vol] 93.0 fL Normal 80-100 [facility] Comment on above: Performed By: #### C K, HS TROP #### [facility] [address] Mean Corpuscular HGB Conc 32.9 g/dL Normal 32.0-35.0 [facility] Comment on above: Performed By: #### C K, HS TROP #### [facility] [address] [place] [address] [place] Monocytes (Bld) [#/Vol] 0.9 10*3/uL High 0.0-0.8 [facility] Comment on above: Performed By: #### C K, HS TROP #### [facility] [address] Monocytes/100 WBC (Bld) 8.1 % Normal . [facility] Comment on above: Performed By: #### C K, HS TROP #### [facility] [address] Neutrophils (Bld) [#/Vol] 8.3 10*3/uL High 1.8-7.7 [facility] Comment on above: Performed By: #### C K, HS TROP #### [facility] [address] [place] [address] Neutrophils/100 WBC (Bld) 77.5 % Normal . [facility] Comment on above: Performed By: #### C K, HS TROP #### [facility] [address] [place] [address] [place] NRBC% 0.1 /100{WBC} Normal 0-0.5 [facility] Comment on above: Performed By: #### C K, HS TROP #### [facility] [address] Platelet mean volume (Bld) [Entitic vol] 9.7 fL Normal 6.3-10.7 [facility] Comment on above: Performed By: #### C K, HS TROP #### [facility] [address] [place] [address] [place] Platelets (Bld) [#/Vol] 135 10*3/uL Low 150-450 [facility] Comment on above: Performed By: #### C K, HS TROP #### [facility] [address] [place] [address] RBC (Bld) [#/Vol] 4.53 10*6/uL Normal 3.60-5.00 [facility] Comment on above: Performed By: #### C K, HS TROP #### [facility] [address] [place] [address] WBC (Bld) [#/Vol] 10.7 10*3/uL Normal 3.8-11.6 [facility] Comment on above: Performed By: #### C Beth, HS TROP #### [facility] [address] [place] [address] Comprehensive Metabolic Pane faye 06-22-2022 Albumin [Mass/Vol] 3.4 g/dL Low 3.5-5.7 [facility] Comment on above: Performed By: #### C Beth, HS TROP #### [facility] [address] [place] [address] Albumin/Globulin [Mass ratio] 1.4 {ratio} Normal [facility] Comment on above: Performed By: #### C K, HS TROP #### [address] ALP [Catalytic activity/Vol] 74 U/L Normal 34-104 [facility] Comment on above: Performed By: #### C K, HS TROP #### [facility] [address] [place] [address] ALT [Catalytic activity/Vol] 13 U/L Normal 7-52 [facility] Comment on above: Performed By: #### C K, HS TROP #### [facility] [address] [place] [address] Anion gap [Moles/Vol] 11.2 mmol/L Normal 6.0-15.0 [facility] Comment on above: Performed By: #### C K, HS TROP #### [facility] [address] [place] [address] AST [Catalytic activity/Vol] 16 U/L Normal 13-39 [facility] Comment on above: Performed By: #### C K, HS TROP #### [facility] [address] Bilirubin [Mass/Vol] 0.7 mg/dL Normal 0.3-1.0 [facility] Comment on above: Performed By: #### C K, HS TROP #### [facility] [address] Calcium [Mass/Vol] 8.5 mg/dL Low 8.6-10.3 [facility] Comment on above: Performed By: #### C K, HS TROP #### [facility] [address] Chloride [Moles/Vol] 102 mmol/L Normal 98-107 [facility] Comment on above: Performed By: #### C K, HS TROP #### [facility] [address] CO2 [Moles/Vol] 24.8 mmol/L Normal 21.0-31.0 [facility] Comment on above: Performed By: #### C K, HS TROP #### [facility] [address] Creatinine [Mass/Vol] 1.92 mg/dL High 0.60-1.20 [facility] Comment on above: Performed By: #### C K, HS TROP #### [facility] [address] [place] [address] [place] Creatinine Clr Calc Pharmacy 31.93 [facility] Comment on above: Performed By: #### C K, HS TROP #### [facility] [address] [place] [address] [place] GFR/1.73 sq M.predicted MDRD (S/P/Bld) [Vol rate/Area] 25.395 mL/min/{1.73_m2} [facility] Comment on above: Performed By: #### C K, HS TROP #### [facility] [address] [place] [address] [place] Globulin (S) [Mass/Vol] 2.5 g/dL Normal [facility] Comment on above: Performed By: #### C K, HS TROP #### [facility] [address] Glucose [Mass/Vol] 193 mg/dL High 70-100 [facility] Comment on above: Result Comment: [place] Glucose Reference Range is dependent on time and content of last meal. Glucose of more than 200 mg/dL in a nonstressed, ambulatory subject supports the diagnosis of Diabetes Mellitus. ADA recommended reference range Performed By: #### C K, HS TROP #### [facility] [address] Potassium [Moles/Vol] 4.0 mmol/L Normal 3.5-5.1 [facility] Comment on above: Performed By: #### C K, HS TROP #### [facility] [address] Protein [Mass/Vol] 5.9 g/dL Low 6.4-8.9 [facility] Comment on above: Performed By: #### C K, HS TROP #### [facility] [address] [place] [address] Sodium [Moles/Vol] 134 mmol/L Low 136-145 [facility] Comment on above: Performed By: #### C K, HS TROP #### [facility] [address] [place] [address] [place] Urea nitrogen [Mass/Vol] 39 mg/dL High 7-25 [facility] Comment on above: Performed By: #### C K, HS TROP #### [facility] [address] [place] [id number] [place] Creatine Kinaseon 06-22-2022 CK [Catalytic activity/Vol] 114 U/L Normal 30-223 [facility] Comment on above: Performed By: #### H S TROP, CK #### [facility] [address] [place] [id number] [facility] CK [Catalytic activity/Vol] 130 U/L Normal 30-223 [facility] Comment on above: Performed By: #### C K, HS TROP #### [facility] [address] [place] [id number] [facility] echo transthoracicon [facility] echo transthoracic [facility] [place] [address] [place] [id number] Echocardiogram Signed Patient: Mohan Espinoza MR#: [id number] 8 : 1935 Acct:[id number] Age/Sex: 86 / F ADM Date: 06/22/22 Loc: Room: [address] [place] [address] Type: ADM IN Attending Dr: Brissa Hoffman MD Ordering Provider: Sharron Casey DO Date of Service: 06/22/2206/11/1002 [facility] echo transthoracic: NSTEMI Copies to: MD Sharron Rice DO Height: 68 in Weight: 300 lb Performed By: SOULEYMANE Burr BSA: 2.4 m2 BP: 103/60 mmHg HR: 103 Reason For Study: NSTEMI History: Anemia. DM. Factor V Leiden. IVC Filter. HTN. [place]. Cancer. Chemotherapy. PE. CABG. PCI. Former Smoker. Interpretation Summary Mild concentric left ventricular hypertrophy. The LV ejection fraction is 45 %. A variety of Doppler measurements indicate impaired left ventricular relaxation, which is associated with grade I/IV or mild diastolic dysfunction. Moderate hypokinesis of the mid to distal anteroseptal wall The left atrium appears mildly dilated. The right atrium is mildly dilated. There is trace mitral regurgitation. There is trace tricuspid regurgitation. Mild aortic root dilatation. The aortic root is 4.1 cm Compared to prior study, changes are noted. New regional wall motion abnormalitie is now present. Procedure/Quality: A two-dimensional transthoracic echocardiogram with color flow, Doppler and injection of contrast agent Definity was performed. A two- dimensional transthoracic echocardiogram with color flow and Doppler was performed. The study was technically suboptimal in quality due to patient body habitus . Left Ventricle: The left ventricular size is normal. Mild concentric left ventricular hypertrophy. The LV ejection fraction is 45 %. A variety of Doppler measurements indicate impaired left ventricular relaxation, which is associated with grade I/IV or mild diastolic dysfunction. Moderate hypokinesis of the mid to distal anteroseptal wall. Left Atrium: The left atrium appears mildly dilated. Right Atrium: The right atrium is mildly dilated. Right Ventricle: The right ventricular size, thickness and function are normal. Aortic Valve: The aortic valve is mildly calcified. No aortic regurgitation is present. Mitral Valve: The mitral valve is normal in structure and function. There is trace mitral regurgitation. Tricuspid Valve: The tricuspid valve is normal in structure and function. There is trace tricuspid regurgitation. Pulmonic Valve: The pulmonic valve is normal in structure and function. Arteries: Mild aortic root dilatation. The aortic root is 4.1 cm. Pericardium/Pleura: No pericardial effusion seen. There is no pleural effusion. IVC/Hepatic Viens: The inferior vena cava is normal in size, with a normal collapsibility index. Measurements with Normals IVSd: 1.2 cm (0.7-1.1 cm)LVIDd: 3.4 cm (3.7-5.4 cm) LVPWd: 1.2 cm (0.7-1.1 cm)LVIDs: 2.9 cm (2.3-3.6 cm) LA dimension: 4.8 cm (2.3-4.0 cm)Ao root diam: 3.2 cm(2.0-3.6 cm) asc Aorta Diam: 4.1 cm(2.1-3.4cm) Doppler with Normals RVSP(TR): 22.8 mmHg (18-35mmHg) MV E max ashlee: 97.7 cm/sec(0.8-1.3m/s) MV A max ashlee: 30.0 cm/sec(0.0-0.0m/s) MV E/A: 3.3 (<1.5) MMode/2D Measurements Calculations RVDd: 2.9 cm FS: 13.9 % Ao root area: LVOT diam: 1.9 cm TAPSE: 2.1 cm EDV(Teich): 8.2 cm2 LVOT area: 2.8 cm2 RV S Ashlee: 47.6 ml 11.5 cm/sec ESV(Teich): 33.1 ml EF(Teich): 30.5 % __ LVLd ap4: 8.5 cm SV(MOD-sp4): LAV(MOD-sp4): LA A2 area: 21.4 cm2 EDV(MOD-sp4): 63.5 ml 36.4 ml 128.0 ml LAV(MOD-sp2): LA A4 area: 16.8 cm2 LVLs ap4: 6.4 cm 62.6 ml LA length (vol): ESV(MOD-sp4): 6.3 cm 64.5 ml LA vol: 48.7 ml EF(MOD-sp4): 49.6 % LA vol index: 20.0 ml/m2 Doppler Measurements Calculations MV max P.0 mmHg E/E' lat: MR max ashlee: TV max P.5 271.1 cm/sec 20.0 mmHg E/E' med: MR max P.6 mmHg 9.3 __ TR max ashlee: 222.6 cm/sec TR max P.8 mmHg RAP systole: 3.0 mmHg Transcribed By: SCV Performed At: 06/22/22 1102 Signed By: Stephanie Hancock MD 06/22/22 1251 Normal [facility] Globulin Calc (S) [Mass/Vol] Ordered By: Marcela Cano on 06-22-2022 Globulin (S) [Mass/Vol] 2.5 g/dL [facility] Glucose Poct Glucometerson 0 06-22-2022 Glucose [Mass/Vol] 245 mg/dL Normal [facility] Comment on above: Result Comment: [place] Glucose Reference Range is dependent on time and content of last meal. Glucose of more than 200 mg/dL in a nonstressed, ambulatory subject supports the diagnosis of Diabetes Mellitus. PERFORMED BY: [place] [address] [place] [place] [address] PATHOLOGIST SITE ADMINISTRATOR CINDY BRADSHAW M.D. Performed By: #### G LULS #### Point of Care testing , Glucose [Mass/Vol] 201 mg/dL Normal [facility] Comment on above: Result Comment: [facility] Glucose Reference Range is dependent on time and content of last meal. Glucose of more than 200 mg/dL in a nonstressed, ambulatory subject supports the diagnosis of Diabetes Mellitus. PERFORMED BY: [facility] [address] [place] [id number] PATHOLOGIST SITE ADMINISTRATOR CINDY BRADSHAW M.D. Performed By: #### G LULS #### Point of Care testing , Commemt1 Glu2: Cleaned Meter Normal [facility] Comment on above: Result Comment: PERF ORMED BY: [facility] [address] [place] [id number] PATHOLOGIST SITE ADMINISTRATOR CINDY BRADSHAW M.D. Performed By: #### G LULS #### Point of Care testing , Glucose [Mass/Vol] 191 mg/dL Normal [facility] Comment on above: Result Comment: [facility] Glucose Reference Range is dependent on time and content of last meal. Glucose of more than 200 mg/dL in a nonstressed, ambulatory subject supports the diagnosis of Diabetes Mellitus. Performed By: #### G LULS #### Point of Care testing , Glucose mean value [Mass/vol ume] in Blood Estimated from glycated hemoglobinOrdered By: Marcela Cano on 06-22-2022 Average glucose Estimated from glycated hemoglobin (Bld) [Mass/Vol] 194 mg/dL [facility] Hemoglobin A1c percentageOrd ered By: Marcela Cano on 06-22-2022 HbA1c (Bld) [Mass fraction] 8.4 % 4.3-5.6 [facility] Comment on above: Increased risk for d iabetes: 5.7 - 6.4diabetes: >6.4glycemic control for adults with diabetes: <7.0 Lactate [Moles/volume] in Se rum or PlasmaOrdered By: Marcela Cano on 06-22-2022 Lactate [Moles/Vol] 1.2 mmol/L 0.5-2.2 [facility] Lactic Acidon 06-22-2022 Lactate [Moles/Vol] 1.2 mmol/L Normal 0.5-2.2 [facility] Comment on above: Result Comment: PERF ORMED BY: [place] [address] PATHOLOGIST SITE ADMINISTRATOR CINDY BRADSHAW M.D. Performed By: #### C K, HS TROP #### [facility] [address] [place] [address] [facility] Lipid Panelon 06-22-2022 Cholesterol [Mass/Vol] 162 mg/dL Normal 140-200 [facility] Comment on above: Result Comment: Chol less than 200 mg/dl low risk Chol 201-239 mg/dl borderline risk Chol 240 mg/dl and greater high risk Performed By: #### C K, HS TROP #### [facility] [address] Cholesterol in HDL [Mass/Vol] 25 mg/dL Low 35-85 [facility] Comment on above: Result Comment: HDL CHOL ATP-III CLASSIFICATION Cardiovascular Risk HDL > or equal to 60 mg/dL LOW HDL < 40 mg/dL HIGH Performed By: #### C K, HS TROP #### [facility] [address] [place] [address] [place] Cholesterol.total/Mary Ann sterol in HDL [Mass ratio] 6.5 {ratio} Normal <5.0 [facility] Comment on above: Result Comment: PERF ORMED BY: [place] [address] PATHOLOGIST SITE ADMINISTRATOR CINDY BRADSHAW M.D. Performed By: #### C K, HS TROP #### [facility] [address] [place] [phone] [place] LDL Cholesterol,Calculated 105 mg/dL High 0-100 [facility] Comment on above: Result Comment: LDL ATP III CLASSIFICATION LDL less than 100 mg/dL Optimal LDL 100-129 mg/dL Near or above optimal LDL 130-159 mg/dL Borderline high LDL 160-189 mg/dL High LDL greater than 189 mg/dL Very high Performed By: #### C K, HS TROP #### [facility] [address] [place] [id number] [place] Triglyceride w/Reflex 160 mg/dL High 0-149 [facility] Comment on above: Result Comment: TRIG ATP III CLASSIFICATION TRIG less than 150 mg/dL Normal TRIG 150-199 mg/dL Borderline high TRIG 200-500 mg/dL High TRIG greater than 500 mg/dL Very high Standard traceable to the Center for Disease Conrtrol and Prevention (CDC) test method. Performed By: #### C K, HS TROP #### [facility] [address] VLDL CHOLESTEROL 32 mg/dL Normal [facility] Comment on above: Performed By: #### C K, HS TROP #### [facility] [address] Natriuretic peptide B [Mass/ Vol]Ordered By: Marcela Cano on 06-22-2022 Natriuretic peptide B (Bld) [Mass/Vol] 507.0 pg/mL 5-100 [facility] No Panel InformationOrdered By: Toi Johnson on 06-22-2022 Bedside Glucose Comment Glu2: cleaned meter [facility] Protein [Mass/volume] in Ser um or PlasmaOrdered By: Marcela Cano on 06-22-2022 Protein [Mass/Vol] 5.9 g/dL 6.4-8.9 [facility] Serum or plasma albumin/glob ulin mass ratioOrdered By: Marcela Cano on 06-22-2022 Albumin/Globulin [Mass ratio] 1.4 {ratio} [facility] Serum or plasma high density lipoprotein (HDL) cholesterol measurementOrdered By: Marcela Cano on 06-22-2022 Cholesterol in HDL [Mass/Vol] 25 mg/dL 35-85 [facility] Comment on above: HDL CHOL ATP-III CLA SSIFICATION Cardiovascular RiskHDL > or equal to 60 mg/dL LOWHDL < 40 mg/dL HIGH Serum or plasma total choles terol/high density lipoprotein (HDL) cholesterol mass ratOrdered By: Marcela Cano on 06-22-2022 Cholesterol.total/Mary Ann sterol in HDL [Mass ratio] 6.5 {ratio} <5.0 [facility] TROPONIN, HIGH SENSITIVITYon 06-22-2022 HSTROP 395.9 pg/mL Critically high 4.0-51.3 [facility] Comment on above: Result Comment: CUT- OFF POINTS HAVE BEEN ESTABLISHED BASED ON THE FOURTH UNIVERSAL DEFINITIONS OF MYOCARDIAL INFARCTION. THE UPPER REFERENCE LIMIT (URL) OF TROPONIN, DEFINED THE 99TH PERCENTILE OF cTnI DISTRIBUTION IN A REFERENCE POPULATION, HAS BEEN CONFIRMED THE DECISION THRESHOLD FOR [place] DIAGNOSIS. Performed By: #### U RTPCR #### [facility] [address] [place] [address] [address] Shilpa Beard Triglyceride [Mass/volume] i n Serum or PlasmaOrdered By: Marcela Cano on 06-22-2022 Triglyceride [Mass/Vol] 160 mg/dL 0-149 [facility] Comment on above: TRIG ATP III CLASSIF ICATIONTRIG less than 150 mg/dL NormalTRIG 150-199 mg/dL Borderline highTRIG 200-500 mg/dL High TRIG greater than 500 mg/dL Very highStandard traceable to the Center for Disease Conrtrol and Prevention (CDC) test method. Troponin I High Sensitivityo n 06-22-2022 Troponin I High Sensitivity 86.3 pg/mL Off scale high 0.0-15.0 [facility] Comment on above: Result Comment: Crit ical Result : Called to and read back by: RICARDO LANDRUM at: 06/22/2022 20:03:59 by:[email or web address] PERFORMED BY: [place] [address] PATHOLOGIST SITE ADMINISTRATOR CINDY BRADSHAW M.D. Performed By: #### H S TROP, CK #### [facility] [address] [place] [address] Troponin I High Sensitivity 182.3 pg/mL Off scale high 0.0-15.0 [facility] Comment on above: Result Comment: Crit ical Result : Called to and read back by: THERESE SANTOS at: 06/22/2022 11:30:47 by:[id number] PERFORMED BY: [place] [address] PATHOLOGIST SITE ADMINISTRATOR CINDY BRADSHAW M.D. Performed By: #### C K, HS TROP #### [address] Troponin I High Sensitivity 168.1 pg/mL Off scale high 0.0-15.0 [facility] Comment on above: Result Comment: Crit ical Result : Called to and read back by: THERESE SANTOS at: 06/22/2022 11:31:17 by:[id number] PERFORMED BY: [place] [phone] PATHOLOGIST SITE ADMINISTRATOR CINDY BRADSHAW M.D. Performed By: #### C K, HS TROP #### [address] Troponin I High Sensitivity 279.0 pg/mL Off scale high 0.0-15.0 [facility] Comment on above: Result Comment: Crit ical Result : Called to and read back by: PEDRO SAUL at: 06/22/2022 06:20:50 by:[id number] PERFORMED BY: [place] [address] PATHOLOGIST SITE ADMINISTRATOR CINDY BRADSHAW M.D. Performed By: #### G LULS #### Point of Care testing , AMYLASEon 06-21-2022 Amylase [Catalytic activity/Vol] 41 U/L Normal 25-115 [facility] Comment on above: Performed By: #### L IPA, ALLISON #### [facility] [address] [place] [address] Dr. Shilpa Beard CBC AUTO DIFFon 06-21-2022 BASO # 0.1 103/ul Normal 0.0-0.1 [facility] Comment on above: Performed By: #### C BC #### [facility] [address] [place] [address] Dr. Shilpa Beard Basophils/100 WBC (Bld) 0.4 % Normal 0.2-2.0 [facility] Comment on above: Performed By: #### C BC #### [facility] [address] [place] [address] Dr. Shilpa Beard EO # 0.0 103/ul Normal 0.0-0.7 [facility] Comment on above: Performed By: #### C BC #### [facility] [address] [place] [address] [address] Shilpa Beard Eosinophils/100 WBC (Bld) 0.1 % Critically low 0.9-7.0 [facility] Comment on above: Performed By: #### C BC #### [facility] [address] [place] [address] Dr. Shilpa Beard Erythrocyte distribution width (RBC) [Ratio] 13.4 % Normal 11.0-15.0 [facility] Comment on above: Performed By: #### C BC #### [facility] [address] [place] [address] Dr. Shilpa Beard Hematocrit (Bld) [Volume fraction] 46.1 % Normal 36.0-48.0 [facility] Comment on above: Performed By: #### C BC #### [facility] [address] [place] [address] Dr. Shilpa Beard Hemoglobin (Bld) [Mass/Vol] 15.6 g/dL Normal 12.0-16.0 [facility] Comment on above: Performed By: #### C BC #### [facility] [address] [place] [address] Dr. Shilpa Beard IG # 0.07 10e3/ul Critically high 0.00-0.03 [facility] Comment on above: Performed By: #### C BC #### [facility] [address] [place] [address] Dr. Shilpa Beard IG % 0.4 % Normal 0.0-0.5 [facility] Comment on above: Performed By: #### C BC #### [facility] [address] [place] [address] Dr. Shilpa Beard LYMPH # 0.7 103/ul Critically low 1.2-3.8 [facility] Comment on above: Performed By: #### C BC #### [facility] [address] [place] [address] Dr. Shilpa Beard Lymphocytes/100 WBC (Bld) 4.4 % Critically low 20.5-60.0 [facility] Comment on above: Performed By: #### C BC #### [facility] [address] [place] [address] Dr. Shilpa Beard MANUAL DIFF REQ NO Normal [facility] Comment on above: Performed By: #### C BC #### [facility] [address] [place] [address] Dr. Shilpa Beard MCH (RBC) [Entitic mass] 30.8 pg Normal 26.7-34.0 [facility] Comment on above: Performed By: #### C BC #### [facility] [address] [place] [address] Dr. Shilpa Beard MCHC (RBC) [Mass/Vol] 33.8 g/dL Normal 29.9-35.2 [facility] Comment on above: Performed By: #### C BC #### [facility] [address] [place] [address] Dr. Shilpa Beard MCV (RBC) [Entitic vol] 90.9 fL Normal 81.0-99.0 [facility] Comment on above: Performed By: #### C BC #### [facility] [address] [place] [address] Dr. Shilpa Beard MONO # 0.9 103/ul Critically high 0.3-0.8 [facility] Comment on above: Performed By: #### C BC #### [facility] [address] [place] [address] Dr. Shilpa Beard Monocytes/100 WBC (Bld) 5.6 % Normal 1.7-12.0 [facility] Comment on above: Performed By: #### C BC #### [facility] [address] [place] [address] Dr. Shilpa Beard NEUT # 14.5 103/ul Critically high 1.4-6.5 [facility] Comment on above: Performed By: #### C BC #### [facility] [address] [place] [address] Dr. Shilpa Beard Neutrophils/100 WBC (Bld) 89.1 % Critically high 43.0-75.0 [facility] Comment on above: Performed By: #### C BC #### [facility] [address] [place] [address] [address] Shilpa Beard Platelet mean volume (Bld) [Entitic vol] 11.6 fL Normal 9.5-13.5 [facility] Comment on above: Performed By: #### C BC #### [facility] [address] [place] [address] [address] Shilpa Beard PLT 176 103/ul Normal 150-450 [facility] Comment on above: Performed By: #### C BC #### [facility] [address] [place] [address] [address] Shilpa Beard RBC 5.07 106/ul Normal 4.20-5.40 [facility] Comment on above: Performed By: #### C BC #### [facility] [address] [place] [address] [address] Shilpa Beard WBC 16.2 103/ul Critically high 4.0-11.0 [facility] Comment on above: Performed By: #### C BC #### [facility] [address] [place] [address] [address] ABD/PELVIS WO CONon 06-21 CT ABD/PELVIS WO CON EXAMINATION: CT ABD/PELVIS WO CON, 06/21/2022 8:29 PM EDT HISTORY: UNSPECIFIED ABDOMINAL PAIN COMPARISON: 04/07/2022 TECHNIQUE: CT scan of the abdomen and pelvis was performed without IV contrast. CT dose reduction technique was used, including Automated Exposure Control. FINDINGS: Limited evaluation of the viscera/organs and vasculature without intravenous contrast. TUBES AND IMPLANTS: IVC filter. LOWER CHEST: Reticular opacities in the lung bases suggestive of scarring. Mild cardiomegaly ABDOMEN and PELVIS ABDOMINAL WALL AND SOFT TISSUES: Unremarkable. BONES: No suspicious lesions. Multilevel degenerative changes of the spine. ARTERIES: Mild aortoiliac calcification without aneurysm VEINS: Incompletely evaluated. LYMPH NODES: Unremarkable. PERITONEUM/ RETROPERITONEUM: Unremarkable. BOWEL: No obstruction. APPENDIX: Not identified. No inflammatory changes in its expected location. LIVER: No focal lesions. GALLBLADDER: Unremarkable. BILE DUCTS: Not dilated SPLEEN: Unremarkable. PANCREAS: Fatty atrophy ADRENALS: Unremarkable. KIDNEYS/ URETERS: Nonspecific mild perinephric stranding. No stones or hydronephrosis. REPRODUCTIVE ORGANS: Peripherally calcified fibroid or colonic diverticulum is noted. URINARY BLADDER: Unremarkable IMPRESSION: Nonspecific bilateral perinephric stranding. No evidence of obstructive uropathy. Other nonacute findings as described above. Electronically authenticated by: JENNIFER SWIFT Date: 2022-06-21 21:52 Normal [facility] CULTURE URINEon 06-21-2022 CULTURE URINE Culture Observations : NO GROWTH. Normal [facility] Comment on above: Performed By: #### L IPA, ALLISON #### [facility] [address], [place] [address] Dr. Shilpa Beard Covid-19 PCR ([facility])on SARS-CoV-2 (COVID-19) RNA COLIN+probe Ql (Unsp spec) Not detected Normal NOT DETECTED [facility] Comment on above: Result Comment: When diagnostic testing is negative, the possibility of a false negative should be considered in the context of a patient's recent exposures and the presence of clinical signs and symptoms consistent with SARS-CoV-2. This test is not yet approved or cleared by the [place] FDA. When there are no FDA-approved or cleared tests available, and other criteria are met, FDA can make tests available under an emergency access mechanism called an Emergency Use Authorization (EUA). The EUA for this test is supported by the [place] of Health and Human Service's declaration that circumstances exist to justify the emergency use of in vitro diagnostics for the detection and/or diagnosis of the virus that causes COVID-19. This EUA will remain in effect for the duration of the COVID-19 declaration justifying emergency of IVDs, unless it is terminated or revoked by the FDA (after which the test may no longer be used). Performed By: #### C VDTBH #### [facility] [address] [place] [address] Dr. Shilpa Beard ER URINE PROFILEon 3 Bilirubin Ql (U) Negative Normal NEGATIVE [facility] Comment on above: Performed By: #### U RTPCR #### [facility] [address] [place], [place] [address] Dr. Shilpa Beard Clarity (U) CLEAR Normal CLEAR [facility] Comment on above: Performed By: #### U RTPCR #### [facility] [address] [address] [address] Shilpa Beard Color (U) LT. YELLOW Normal YELLOW [facility] Comment on above: Performed By: #### U RTPCR #### [facility] [address] [place] [address] Dr. Shilpa Beard ERUAHD A micrscopic examination will be performed if indicated. Normal [facility] Comment on above: Performed By: #### U RTPCR #### [facility] [address] [place] [address] Dr. Shilpa Beard Glucose Ql (U) 250 mg/dl Abnormal NEGATIVE [facility] Comment on above: Performed By: #### U RTPCR #### [facility] [address] [place] [address] Dr. Shilpa Beard Hemoglobin Ql (U) TRACE-INTACT Abnormal NEGATIVE [facility] Comment on above: Performed By: #### U RTPCR #### [facility] [address] [place] [address] Dr. Shilpa Beard Ketones Ql (U) Negative Normal NEGATIVE [facility] Comment on above: Performed By: #### U RTPCR #### [facility] [address] [place] [address] Dr. Shilpa Beard LEUKOCYTES Negative Normal NEGATIVE [facility] Comment on above: Performed By: #### U RTPCR #### [facility] [address] [place] [address] Dr. Shilpa Beard Nitrite Ql (U) Negative Normal NEGATIVE [facility] Comment on above: Performed By: #### U RTPCR #### [facility] [address] [place] [address] Dr. Shilpa Beard pH (U) 5.0 [pH] Normal 5-9 [facility] Comment on above: Performed By: #### U RTPCR #### [facility] [address] [place] [address] Dr. Shilpa Beard Protein (U) [Mass/Vol] 100 mg/dL Abnormal NEGAT WILSON/ TRACE [facility] Comment on above: Performed By: #### U RTPCR #### [facility] [address] [place] [address] Dr. Shilpa Beard SPEC GRAVITY 1.025 Normal 1.005-<=1.02 5 [facility] Comment on above: Performed By: #### U RTPCR #### [facility] [address] [place] [address] Dr. Shilpa Beard UR MICRO IND INDICATED Normal [facility] Comment on above: Performed By: #### U RTPCR #### [facility] [address] [place] [address] Dr. Shilpa Beard Urobilinogen Qn (U) 0.2 {Jacklyn'U}/dL Normal 0.2 - 1. 0 [facility] Comment on above: Performed By: #### U RTPCR #### [facility] [address] [place] [address] Dr. Shilpa Beard LIPASEon 06-21-2022 Lipase [Catalytic activity/Vol] 80.0 U/L Normal 73.0-393.0 [facility] Comment on above: Performed By: #### L IPA, ALLISON #### [facility] [address] [place] [address] Dr. Shilpa Beard Lipase [Catalytic activity/Vol] 82.0 U/L Normal 73.0-393.0 [facility] Comment on above: Performed By: #### U RTPCR #### [facility] [address] [place] [address] Dr. Shilpa Beard PROF 14(COMP METB)on 023 Albumin [Mass/Vol] 3.3 g/dL Critically low 3.4-5.0 [facility] Comment on above: Performed By: #### U RTPCR #### [facility] [address] [place] [address] Dr. Shilpa Beard Albumin/Globulin [Mass ratio] 0.8 {ratio} Normal [facility] Comment on above: Performed By: #### U RTPCR #### [facility] [address] [place] [address] Dr. Shilpa Beard ALP [Catalytic activity/Vol] 114 U/L Normal 46-116 [facility] Comment on above: Performed By: #### U RTPCR #### [facility] [address] [address] [address] Shilpa Beard ALT [Catalytic activity/Vol] 18 U/L Normal 14-59 [facility] Comment on above: Performed By: #### U RTPCR #### [facility] [address] [address] [address] Shilpa Beard Anion gap [Moles/Vol] 18.4 mmol/L Normal [facility] Comment on above: Performed By: #### U RTPCR #### [facility] [address] [place] [address] Dr. Shilpa Beard AST [Catalytic activity/Vol] 22 U/L Normal 15-37 [facility] Comment on above: Performed By: #### U RTPCR #### [facility] [address] [place] [address] Dr. Shilpa Beard Bilirubin [Mass/Vol] 0.6 mg/dL Normal 0.2-1.0 [facility] Comment on above: Performed By: #### U RTPCR #### [facility] [address] [place] [address] Dr. Shilpa Beard Calcium [Mass/Vol] 8.9 mg/dL Normal 8.5-10.1 [facility] Comment on above: Performed By: #### U RTPCR #### [facility] [address] [place] [address] Dr. Shilpa Beard Chloride [Moles/Vol] 100 mmol/L Normal 98-107 [facility] Comment on above: Performed By: #### U RTPCR #### [facility] [address] [address] [address] Shilpa Beard CO2 [Moles/Vol] 22.2 mmol/L Normal 21.0-32.0 [facility] Comment on above: Performed By: #### U RTPCR #### [facility] [address] [address] [address] Shilpa Beard Creatinine [Mass/Vol] 1.80 mg/dL Critically high 0.55-1.02 [facility] Comment on above: Performed By: #### U RTPCR #### [facility] [address] [address] [address] Shilpa Beard EGFR-AF HONG K[place]ER 32 mL/min/1.73m2 Critically low >=60 [facility] Comment on above: Performed By: #### U RTPCR #### [facility] [address] [address] [address] Shilpa Beard EGFR-NON AF [place]ER 27 mL/min/1.73m2 Critically low >=60 [facility] Comment on above: Performed By: #### U RTPCR #### [facility] [address] [place] [address] Dr. Shilpa Beard Globulin (S) [Mass/Vol] 4.0 g/dL Normal [facility] Comment on above: Performed By: #### U RTPCR #### [facility] [address] [place] [address] Dr. Shilpa Beard Glucose [Mass/Vol] 277 mg/dL Critically high 74-106 [facility] Comment on above: Performed By: #### U RTPCR #### [facility] [address] [place] [address] Dr. Shilpa Beard Potassium [Moles/Vol] 4.6 mmol/L Normal 3.5-5.1 [facility] Comment on above: Performed By: #### U RTPCR #### [facility] [address] [place] [address] Dr. Shilpa Beard Protein [Mass/Vol] 7.3 g/dL Normal 6.4-8.2 [facility] Comment on above: Performed By: #### U RTPCR #### [facility] [address] [place] [address] Dr. Shilpa Beard Sodium [Moles/Vol] 136 mmol/L Normal 136-145 [facility] Comment on above: Performed By: #### U RTPCR #### [facility] [address] [address] [address] Shilpa Beard Urea nitrogen [Mass/Vol] 35.0 mg/dL Critically high 7.0-18.0 [facility] Comment on above: Performed By: #### U RTPCR #### [facility] [address] [place] [address] Dr. Shilpa Beard Urea nitrogen/Creatinine [Mass ratio] 19.4 mg/mg Normal [facility] Comment on above: Performed By: #### U RTPCR #### [facility] [address] [place] [address] Dr. Shilpa Beard TROPONIN, HIGH SENSITIVITYon 06-21-2022 HSTROP 190.4 pg/mL Critically high 4.0-51.3 [facility] Comment on above: Result Comment: CUT- OFF POINTS HAVE BEEN ESTABLISHED BASED ON THE FOURTH UNIVERSAL DEFINITIONS OF MYOCARDIAL INFARCTION. THE UPPER REFERENCE LIMIT (URL) OF TROPONIN, DEFINED THE 99TH PERCENTILE OF cTnI DISTRIBUTION IN A REFERENCE POPULATION, HAS BEEN CONFIRMED THE DECISION THRESHOLD FOR [place] DIAGNOSIS. Performed By: #### H STROPN #### [facility] [address] [place] [address] Dr. Shilpa Beard HSTROP 103.3 pg/mL Critically high 4.0-51.3 [facility] Comment on above: Result Comment: CUT- OFF POINTS HAVE BEEN ESTABLISHED BASED ON THE FOURTH UNIVERSAL DEFINITIONS OF MYOCARDIAL INFARCTION. THE UPPER REFERENCE LIMIT (URL) OF TROPONIN, DEFINED THE 99TH PERCENTILE OF cTnI DISTRIBUTION IN A REFERENCE POPULATION, HAS BEEN CONFIRMED THE DECISION THRESHOLD FOR [place] DIAGNOSIS. Performed By: #### U RTPCR #### [facility] [address] [place] [address] Dr. Shilpa Beard URINE MICROSCOPIC ONLYon AMORPHOUS CRYSTALS FEW Normal [facility] Comment on above: Performed By: #### U RTPCR #### [facility] [address] [place] [address] Dr. Shilpa Beard BACTERIA SMALL Abnormal NONE SEEN [facility] Comment on above: Performed By: #### U RTPCR #### [facility] [address] [place] [address] Dr. Shilpa Beard Bacteria identified Cx Nom (U) INDICATED Normal [facility] Comment on above: Performed By: #### U RTPCR #### [facility] [address] [place] [address] Dr. Shilpa Beard CAST SEEN Abnormal NONE SEEN [facility] Comment on above: Performed By: #### U RTPCR #### [facility] [address] [place] [address] Dr. Shilpa Beard Crystals LM Nom (Urine sed) SEEN Abnormal NONE SEEN [facility] Comment on above: Performed By: #### U RTPCR #### [facility] [address] [place] [address] Dr. Shilpa Beard Epithelial cells LM Ql (Urine sed) FEW Abnormal NONE SEEN /RARE [facility] Comment on above: Performed By: #### U RTPCR #### [facility] [address] [place] [address] Dr. Shilpa Beard HYALINE CAST FEW Normal [facility] Comment on above: Performed By: #### U RTPCR #### [facility] [address] [place] [address] Dr. Shilpa Beard MUCOUS NONE SEEN Normal NONE SEEN [facility] Comment on above: Performed By: #### U RTPCR #### [facility] [address] [place] [address] Dr. Shilpa Beard RBC 2-5 Abnormal 0-2 [facility] Comment on above: Performed By: #### U RTPCR #### [facility] [address] [place] [address] Dr. Shilpa Beard WBC NONE SEEN Normal NONE SEEN [facility] Comment on above: Performed By: #### U RTPCR #### [facility] [address] [place] [address] Dr. Shilpa Beard XR CHEST 1 Von 06-21-2022 XR CHEST 1 V EXAM: XR CHEST 1 V HISTORY: Episodes of weakness; technologist notes state nausea and generalized weakness for one day and history of leukemia, diabetes and hypertension. COMPARISON: 11/01/2020. TECHNIQUE: AP erect portable chest radiograph performed. FINDINGS: Stable median sternotomy wires. The trachea air column is unremarkable. Stable mild prominence of the cardiac silhouette. There is low lung volumes with mild elevation of the right hemidiaphragm. There is no consolidation or infiltrates. There is no pleural effusion or pulmonary vascular congestion. There is no pneumothorax or osseous abnormality. IMPRESSION: Expiratory chest radiograph. No acute cardiopulmonary process is seen. Electronically authenticated by: LAURENCE RAJPUT Date: 2022-06-21 17:15 Normal [facility] GLYCOHEMOGLOBIN A1Con 2021 ADA RECOMMENDATION SEE BELOW Normal [facility] Comment on above: Result Comment: ADA RECOMMENDED LIMIT 4.0 - 6.0 ADA THERAPEUTIC TARGET < 7.0 ACTION SUGGESTED > 7.0 Performed By: #### A 1C #### [facility] [address] [place] [address] Dr. Shilpa Beard Glucose [Mass/Vol] 174 mg/dL Normal [facility] Comment on above: Performed By: #### A 1C #### [facility] [address] [place] [address] Dr. Shilpa Beard HbA1c (Bld) [Mass fraction] 7.7 % Critically high 4.5-6.2 [facility] Comment on above: Performed By: #### A 1C #### [facility] [address] [address] [address] Shilpa Beard PROF CHEM 8 (BAS METB)on Anion gap [Moles/Vol] 13.6 mmol/L Normal [facility] [place] Comment on above: Performed By: #### B MP #### [facility] [address] [place] [address] Dr. Shilpa Beard Calcium [Mass/Vol] 9.6 mg/dL Normal 8.5-10.1 [facility] Comment on above: Performed By: #### B MP #### [facility] [address] [place] [address] Dr. Shilpa Beard Chloride [Moles/Vol] 103 mmol/L Normal 98-107 [facility] Comment on above: Performed By: #### B MP #### [facility] [address] [place] [address] Dr. Shilpa Beard CO2 [Moles/Vol] 26.1 mmol/L Normal 21.0-32.0 [facility] Comment on above: Performed By: #### B MP #### [facility] [address] [address] [address] Shilpa Beard Creatinine [Mass/Vol] 1.30 mg/dL Critically high 0.55-1.02 [facility] Comment on above: Performed By: #### B MP #### [facility] [address] [address] [address] Shilpa Beard EGFR-AF HONG [place]ER 47 mL/min/1.73m2 Critically low >=60 [facility] Comment on above: Performed By: #### B MP #### [facility] [address] [address] [address] Shilpa Beard EGFR-NON AF [place]ER 39 mL/min/1.73m2 Critically low >=60 [facility] Comment on above: Performed By: #### B MP #### [facility] [address] [address] [address] Shilpa Beard Glucose [Mass/Vol] 219 mg/dL Critically high 74-106 [facility] Comment on above: Performed By: #### B MP #### [facility] [address] [address] [address] Shilpa Beard Potassium [Moles/Vol] 4.7 mmol/L Normal 3.5-5.1 [facility] Comment on above: Performed By: #### B MP #### [facility] [address] [address] [address] Shilpa Beard Sodium [Moles/Vol] 138 mmol/L Normal 136-145 [facility] Comment on above: Performed By: #### B MP #### [facility] [address] [address] [address] Shilpa Beard Urea nitrogen [Mass/Vol] 37.0 mg/dL Critically high 7.0-18.0 [facility] Comment on above: Performed By: #### B MP #### [facility] [address] [address] [address] Shilpa Beard Urea nitrogen/Creatinine [Mass ratio] 28.5 mg/mg Normal [facility] Comment on above: Performed By: #### B MP #### [facility] [address] [address] [address] Shilpa Beard PROF CHEM 8 (BAS METB)on Anion gap [Moles/Vol] 15.2 mmol/L Normal [facility] [place] Comment on above: Performed By: #### L IPA, ALLISON #### [facility] [address] [address] [address] Shilpa Beard Calcium [Mass/Vol] 8.7 mg/dL Normal 8.5-10.1 [facility] Comment on above: Performed By: #### L IPA, ALLISON #### [facility] [address] [address] [address] Shilpa Beard Chloride [Moles/Vol] 102 mmol/L Normal 98-107 [facility] Comment on above: Performed By: #### L IPA, ALLISON #### [facility] [address] [place] [address] Dr. Shilpa Beard CO2 [Moles/Vol] 22.8 mmol/L Normal 21.0-32.0 [facility] Comment on above: Performed By: #### L IPA, ALLISON #### [facility] [address] [place] [address] Dr. Shilpa Beard Creatinine [Mass/Vol] 1.32 mg/dL Critically high 0.55-1.02 [facility] Comment on above: Performed By: #### L IPA, ALLISON #### [facility] [address] [place] [address] Dr. Shilpa Beard EGFR-AF [place]ER 46 mL/min/1.73m2 Critically low >=60 [facility] Comment on above: Performed By: #### L IPA, ALLISON #### [facility] [address] [place] [address] Dr. Shilpa Beard EGFR-NON AF [place] 38 mL/min/1.73m2 Critically low >=60 [facility] Comment on above: Performed By: #### L IPA, ALLISON #### [facility] [address] [place] [address] Dr. Shilpa Beard Glucose [Mass/Vol] 168 mg/dL Critically high 74-106 [facility] Comment on above: Performed By: #### L IPA, ALLISON #### [facility] [address] [place] [address] Dr. Shilpa Beard Potassium [Moles/Vol] 5.0 mmol/L Normal 3.5-5.1 [facility] Comment on above: Performed By: #### L IPA, ALLISON #### [facility] [address] [place] [address] Dr. Shilpa Beard Sodium [Moles/Vol] 135 mmol/L Critically low 136-145 [facility] Comment on above: Performed By: #### L IPA, ALLISON #### [facility] [address] [place] [address] Dr. Shilpa Beard Urea nitrogen [Mass/Vol] 38.0 mg/dL Critically high 7.0-18.0 [facility] Comment on above: Performed By: #### L IPA, ALLISON #### [facility] [address] [place] [address] Dr. Shilpa Beard Urea nitrogen/Creatinine [Mass ratio] 28.8 mg/mg Normal [facility] Comment on above: Performed By: #### L IPA, ALLISON #### [facility] [address] [place] [address] Dr. Shilpa Beard CBC AUTO DIFFon 06-30-2021 BASO # 0.1 103/ul Normal 0.0-0.1 [facility] Comment on above: Performed By: #### L IPA, ALLISON #### [facility] [address] [place] [address] Dr. Shilpa Beard Basophils/100 WBC (Bld) 1.0 % Normal 0.2-2.0 [facility] Comment on above: Performed By: #### L IPA, ALLISON #### [facility] [address] [place] [address] Dr. Shilpa Beard EO # 0.2 103/ul Normal 0.0-0.7 [facility] Comment on above: Performed By: #### L IPA, ALLISON #### [facility] [address] [place] [address] Dr. Shilpa Beard Eosinophils/100 WBC (Bld) 1.8 % Normal 0.9-7.0 [facility] Comment on above: Performed By: #### L IPA, ALLISON #### [facility] [address] [place] [address] Dr. Shilpa Beard Erythrocyte distribution width (RBC) [Ratio] 13.3 % Normal 11.0-15.0 [facility] Comment on above: Performed By: #### L IPA, ALLISON #### [facility] [address] [place] [address] Dr. Shilpa Beard Hematocrit (Bld) [Volume fraction] 46.5 % Normal 36.0-48.0 [facility] Comment on above: Performed By: #### L IPA, ALLISON #### [facility] [address] [place] [address] Dr. Shilpa Beard Hemoglobin (Bld) [Mass/Vol] 15.1 g/dL Normal 12.0-16.0 [facility] Comment on above: Performed By: #### L IPA, ALLISON #### [facility] [address] [place] [address] Dr. Shilpa Beard IG # 0.06 10e3/ul Critically high 0.00-0.03 [facility] Comment on above: Performed By: #### L IPA, ALLISON #### [facility] [address] [place] [address] Dr. Shilpa Beard IG % 0.7 % Critically high 0.0-0.5 [facility] Comment on above: Performed By: #### L IPA, ALLISON #### [facility] [address] [place] [address] Dr. Shilpa Beard LYMPH # 2.9 103/ul Normal 1.2-3.8 [facility] Comment on above: Performed By: #### L IPA, ALLISON #### [facility] [address] [place] [address] Dr. Shilpa Beard Lymphocytes/100 WBC (Bld) 35.4 % Normal 20.5-60.0 [facility] Comment on above: Performed By: #### L IPA, ALLISON #### [facility] [address] [place] [address] Dr. Shilpa Beard MANUAL DIFF REQ NO Normal [facility] Comment on above: Performed By: #### L IPA, ALLISON #### [facility] [address] [place] [address] Dr. Shilpa Beard MCH (RBC) [Entitic mass] 29.8 pg Normal 26.7-34.0 [facility] Comment on above: Performed By: #### L IPA, ALLISON #### [facility] [address] [place] [address] Dr. Shilpa Beard MCHC (RBC) [Mass/Vol] 32.5 g/dL Normal 29.9-35.2 [facility] Comment on above: Performed By: #### L IPA, ALLISON #### [facility] [address] [place] [address] Dr. Shilpa Beard MCV (RBC) [Entitic vol] 91.9 fL Normal 81.0-99.0 [facility] Comment on above: Performed By: #### L IPA, ALLISON #### [facility] [address] [place] [address] Dr. Shilpa Beard MONO # 0.8 103/ul Normal 0.3-0.8 [facility] Comment on above: Performed By: #### L IPA, ALLISON #### [facility] [address] [place] [address] Dr. Shilpa Beard Monocytes/100 WBC (Bld) 9.9 % Normal 1.7-12.0 [facility] Comment on above: Performed By: #### L IPA, ALLISON #### [facility] [address] [place] [address] Dr. Shilpa Beard NEUT # 4.2 103/ul Normal 1.4-6.5 [facility] Comment on above: Performed By: #### L IPA, ALLISON #### [facility] [address] [place] [address] Dr. Shilpa Beard Neutrophils/100 WBC (Bld) 51.2 % Normal 43.0-75.0 [facility] Comment on above: Performed By: #### L IPA, ALLISON #### [facility] [address] [address] [address] Shilpa Beard Platelet mean volume (Bld) [Entitic vol] 11.1 fL Normal 9.5-13.5 [facility] Comment on above: Performed By: #### L IPA, ALLISON #### [facility] [address] [place] [address] Dr. Shilpa Beard PLT 263 103/ul Normal 150-450 [facility] Comment on above: Performed By: #### L IPA, ALLISON #### [facility] Laboratory [address] [address] [address] Shilpa Beard RBC 5.06 106/ul Normal 4.20-5.40 [facility] Comment on above: Performed By: #### L IPA, ALLISON #### [facility] [address] [place] [address] Dr. Shilpa Beard WBC 8.1 103/ul Normal 4.0-11.0 [facility] Comment on above: Performed By: #### L IPA, ALLISON #### [facility] [address] [place] [address] Dr. Shilpa Beard GLYCOHEMOGLOBIN A1Con 2021 ADA RECOMMENDATION ADA THERAPEUTIC TARGET 6.0 - 7.0 ACTION SUGGESTED > 7.0 Normal [facility] Comment on above: Performed By: #### U RTPCR #### [facility] [address] [place] [address] Dr. Shilpa Beard Glucose [Mass/Vol] 186 mg/dL Normal [facility] Comment on above: Performed By: #### U RTPCR #### [facility] [address] [place] [address] Dr. Shlipa Beard HbA1c (Bld) [Mass fraction] 8.1 % Critically high <=6.0 [facility] Comment on above: Performed By: #### U RTPCR #### [facility] [address] [place] [address] Dr. Shilpa Beard LIPID PROFILEon 06-30-2021 CHOL-HDL RATIO NORM SEE BELOW Normal [facility] Comment on above: Result Comment: 3.3 - 4.4 LOW RISK 4.4 - 7.1 AVERAGE RISK 7.1 - 11.0 MODERATE RISK >11.0 HIGH RISK Performed By: #### L IPID, URIC, TSH, CMP #### [facility] [address] [place] [address] Dr. Shilpa Beard Cholesterol [Mass/Vol] 223 mg/dL Critically high <=200 [facility] Comment on above: Performed By: #### L IPID, URIC, TSH, CMP #### [facility] [address] [place] [address] Dr. Shilpa Beard Cholesterol in HDL [Mass/Vol] 31 mg/dL Critically low 40-60 [facility] Comment on above: Performed By: #### L IPID, URIC, TSH, CMP #### [facility] [address] [place] [address] Dr. Shilpa Beard Cholesterol in LDL [Mass/Vol] 143.6 mg/dL Normal [facility] Comment on above: Performed By: #### L IPID, URIC, TSH, CMP #### [facility] [address] [place] [address] Dr. Shilpa Beard Cholesterol.total/Mary Ann sterol in HDL [Mass ratio] 7.2 {ratio} Normal [facility] Comment on above: Performed By: #### L IPID, URIC, TSH, CMP #### [facility] [address] [place] [address] Dr. Shilpa Beard HDL NORMAL > or = 60 mg/dl - LO W CARDIOVASCULAR RISK <40 mg/dl - HIGH CARDIOVASCULAR RISK Normal [facility] Comment on above: Performed By: #### L IPID, URIC, TSH, CMP #### [facility] [address] [place] [address] Dr. Shilpa Beard LDL CALC NORMAL SEE BELOW Normal [facility] Comment on above: Result Comment: <100 mg/dl OPTIMAL 100 - 129 mg/dl NEAR OR ABOVE OPTIMAL 130 - 159 mg/dl BORDERLINE HIGH 160 - 189 mg/dl HIGH >190 mg/dl VERY HIGH Performed By: #### L IPID, URIC, TSH, CMP #### [facility] [address] [place] [address] Dr. Shilpa Beard Triglyceride [Mass/Vol] 242 mg/dL Critically high <=150 [facility] Comment on above: Performed By: #### L IPID, URIC, TSH, CMP #### [facility] [address] [place] [address] Dr. Shilpa Beard VLDL CALC 48.4 mg/dL Normal [facility] Comment on above: Performed By: #### L IPID, URIC, TSH, CMP #### [facility] [address] [place] [address] Dr. Shilpa Beard PROF 14(COMP METB)on 022 Albumin [Mass/Vol] 3.2 g/dL Critically low 3.4-5.0 [facility] Comment on above: Performed By: #### U RTPCR #### [facility] [address] [place] [address] Dr. Shilpa Beard Albumin/Globulin [Mass ratio] 0.7 {ratio} Normal [facility] Comment on above: Performed By: #### U RTPCR #### [facility] [address] [place] [address] Dr. Shilpa Beard ALP [Catalytic activity/Vol] 99 U/L Normal 46-116 [facility] Comment on above: Performed By: #### U RTPCR #### [facility] [address] [place] [address] Dr. Shilpa Beard ALT [Catalytic activity/Vol] 42 U/L Normal 14-59 [facility] Comment on above: Performed By: #### U RTPCR #### [facility] [address] [place] [address] Dr. Shilpa Beard Anion gap [Moles/Vol] 13.1 mmol/L Normal [facility] Comment on above: Performed By: #### U RTPCR #### [facility] [address] [place] [address] Dr. Shilpa Beard AST [Catalytic activity/Vol] 53 U/L Critically high 15-37 [facility] Comment on above: Performed By: #### U RTPCR #### [facility] [address] [place] [address] Dr. Shilpa Beard Bilirubin [Mass/Vol] 0.5 mg/dL Normal 0.2-1.3 [facility] Comment on above: Performed By: #### U RTPCR #### [facility] [address] [place] [address] Dr. Shilpa Beard Calcium [Mass/Vol] 8.8 mg/dL Normal 8.5-10.1 [facility] Comment on above: Performed By: #### U RTPCR #### [facility] [address] [address] [address] Shilpa Beard Chloride [Moles/Vol] 100 mmol/L Normal 98-107 [facility] Comment on above: Performed By: #### U RTPCR #### [facility] [address] [place] [address] Dr. Shilpa Beard CO2 [Moles/Vol] 26.7 mmol/L Normal 22.0-30.0 [facility] Comment on above: Performed By: #### U RTPCR #### [facility] [address] [place] [address] Dr. Shilpa Beard Creatinine [Mass/Vol] 1.24 mg/dL Critically high 0.52-1.04 [facility] Comment on above: Performed By: #### U RTPCR #### [facility] [address] [place] [address] Dr. Shilpa Beard EGFR-AF HONG [place]ER 50 mL/min/1.73m2 Critically low >=60 [facility] Comment on above: Performed By: #### U RTPCR #### [facility] [address] [place] [address] Dr. Shilpa Beard EGFR-NON AF [place]ER 41 mL/min/1.73m2 Critically low >=60 [facility] Comment on above: Performed By: #### U RTPCR #### [facility] [address] [place] [address] Dr. Shilpa Beard Globulin (S) [Mass/Vol] 4.5 g/dL Normal [facility] Comment on above: Performed By: #### U RTPCR #### [facility] [address] [place] [address] Dr. Shilpa Beard Glucose [Mass/Vol] 193 mg/dL Critically high 74-106 [facility] Comment on above: Performed By: #### U RTPCR #### [facility] [address] [address] [address] Shilpa Beard Potassium [Moles/Vol] 4.8 mmol/L Normal 3.4-5.0 [facility] Comment on above: Performed By: #### U RTPCR #### [facility] [address] [place] [address] Dr. Shilpa Beard Protein [Mass/Vol] 7.7 g/dL Normal 6.1-8.2 [facility] Comment on above: Performed By: #### U RTPCR #### [facility] [address] [place] [address] Dr. Shilpa Beard Sodium [Moles/Vol] 135 mmol/L Critically low 137-145 [facility] Comment on above: Performed By: #### U RTPCR #### [facility] [address] [place] [address] Dr. Shilpa Beard Urea nitrogen [Mass/Vol] 30.0 mg/dL Critically high 7.0-18.0 [facility] Comment on above: Performed By: #### U RTPCR #### [facility] [address] [place] [address] Dr. Shilpa Beard Urea nitrogen/Creatinine [Mass ratio] 24.2 mg/mg Normal [facility] Comment on above: Performed By: #### U RTPCR #### [facility] [address] [place] [address] Dr. Shilpa Beard TSHon 06-30-2021 TSH 2.982 uIU/mL Normal 0.470-4.680 [facility] Comment on above: Performed By: #### U RTPCR #### [facility] [address] [place] [address] Dr. Shilpa Beard TSH RANGE SEE BELOW Normal [facility] Comment on above: Result Comment: <0.3 4 UIU/ml HYPERTHYROID 0.34-5.60 UIU/ml EUTHYROID >5.60 UIU/ml HYPOTHYROID Performed By: #### U RTPCR #### [facility] [address] [place] [address] Dr. Shilpa Beard URIC ACID SERUMon 06-30-2021 Urate [Mass/Vol] 7.9 mg/dL Critically high 2.5-6.2 [facility] Comment on above: Performed By: #### L IPID, URIC, TSH, CMP #### [facility] [address] [address] [address] Shilpa Beard URINE T PROTEIN CREAT RATIOo n 06-30-2021 Protein (U) [Mass/Vol] 50.5 mg/dL Critically high <=12.0 [facility] Comment on above: Performed By: #### U RTPCR #### [facility] [address] [place] [address] Dr. Shilpa Beard UR PROT CREAT RAT 0.22 Normal [facility] Comment on above: Performed By: #### U RTPCR #### [facility] [address] [place] [address] Dr. Shilpa Beard URINE CREAT 230.96 mg/dL Normal 20.00-300.00 [facility] Comment on above: Performed By: #### U RTPCR #### [facility] [address] [place] [address] Dr. Shilpa Beard CNPTOUTREACHon 04-15-2020 CNPTOUTREA Patient Outreach (COOCC3) MOHAN ESPINOZA ([id number]) 1935 F Date Time Provider Department 04/15/20 BRENNAN ARVIZU During your visit today, we recorded the following information about you: Allergies As of Date: 04/15/2020 Noted Allergy Reaction ALBUTEROL 11/04/2015 16 - Unknown BIAXIN (CLARITHROMYCIN) 11/04/2015 16 - Unknown LIPITOR (ATORVASTATIN CALCIUM) 11/04/2015 6 - Diarrhea ZETIA (EZETIMIBE) 11/04/2015 16 - Unknown Comments: Headaches Date Reviewed: 09/08/2018 Reviewed by: Linnette Zhang - Fully Assessed Order(s):SARS-COVID VACCINE 1ST DOSE APPT [[id number]] Order #: [id number] FUTURE Prescriptions as of 04/15/2020 Sig: CLOPIDOGREL 75 MG TABLET ALLOPURINOL 100 MG TABLET GLIPIZIDE ER 5 MG TABLET, EXT* RAMIPRIL 10 MG CAPSULE Take 10 mg by mouth once kt* DIGOXIN 250 MCG (0.25 MG) TAB* Take 250 mcg by mouth once da* METOPROLOL TARTRATE 25 MG TAB* Take 25 mg by mouth twice jen* PROBENECID 500 MG TABLET Take 500 mg by mouth once jen* METFORMIN 500 MG TABLET Take 500 mg by mouth twice da* WARFARIN 5 MG TABLET Take 5 mg by mouth daily as d* LEVOTHYROXINE 175 MCG TABLET Take 175 mcg by mouth daily b* Problem List As Of Date 04/15/2020 Noted Resolved Hairy cell leukemia, 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 Author Type: Physician Type: Progress Notes Filed: 09/18/2019 4:23 PM Note Text: PATIENT NAME: Mohan Espinoza [facility] NO.: [id number] ATTENDING PHYSICIAN: Saeid Oneil MD DATE OF SERVICE: September 18, 2019 Dear PERLITA [place] ROMARIO here is an update on a follow up visit on female Mohan Espinoza at the clinic 09/18/2019 This was a telephone visit per patient's request. Patient agreed to a telephone visit Diagnosis: 1. Hairy Cell Leukemia 2. 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 Review of records demonstrates that the patient was treated with Rituxan and fludarabine in the early 1999. HPI: Mohan Espinoza is a 84 year old year old female here for follow up. Overall she is doing well. Denies any new complaints. No nausea vomiting fevers or chills. Denies any headaches. She is scheduled to get blood work tomorrow. PAST MEDICAL HISTORY Diagnosis Date - Atrial fibrillation (HCC) - DM (diabetes mellitus) (HCC) - Dyspnea - Factor V Leiden (HCC) - Gout - Heart attack (HCC) 04/06/2018 [facility] - Hematuria - History of DVT (deep vein thrombosis) - Hyperlipidemia - Hypothyroidism - Osteoarthritis both knees - Renal insufficiency - Vitamin D deficiency Social History Tobacco Use - Smoking status: Never Smoker - Smokeless tobacco: Never Used Substance Use Topics - Alcohol use: No - Drug use: No No family history on file. Past medical, social and family history reviewed without any changes. REVIEW OF SYSTEMS GENERAL: No weight loss, malaise or fevers. No night sweats. HEENT: Negative for headaches, No changes in hearing or vision, no nose bleeds or other nasal problems. RESPIRATORY: Negative for cough, wheezing and shortness of breath CARDIOVASCULAR: Negative for chest pain, leg swelling and palpitations GI: Negative for abdominal discomfort, blood in stools or black stools and change in bowel habits : Negative for dysuria, frequency and incontinence MUSCULOSKELETAL: Negative for joint pain or swelling, back pain, and muscle pain. SKIN: Negative for lesions, rash, and itching. HEMATOLOGY/LYMPHOLOGY Negative for prolonged bleeding, bruising easily, and swollen nodes. NEURO: Negative for numbness or tingling of hands/feet. No weakness. PHYSICAL EXAMINATION: There were no vitals taken for this visit. There were no vitals taken for this visit. Last 3 Encounter Wt Readings: Date: Wt: 09/08/2018 0 kg () 09/09/2017 0 kg () 09/10/2016 135.2 kg (298 lb) General appearance:ECOG PERFORMANCE STATUS: 1- Restricted in physically strenuous activity. Carries out light duty. Patient in NAD. LABS: Glucose (mg/dL) Date Value 09/08/2018 237 Potassium (mmol/L) Date Value 09/08/2018 5.1 Sodium (mmol/L) Date Value 09/08/2018 137 Chloride (mmol/L) Date Value 09/08/2018 99 CO2 (mmol/L) Date Value 09/08/2018 22 Creatinine (mg/dL) Date Value 09/08/2018 1.19 BUN (mg/dL) Date Value 09/08/2018 42 Anion Gap (mmol/L) Date Value 09/08/2018 16 Calcium (mg/dL) Date Value 09/08/2018 9.3 Protein, Total (g/dL) Date Value 09/08/2018 6.9 Albumin (g/dL) Date Value 09/08/2018 3.8 Bilirubin, Total (mg/dL) Date Value 09/08/2018 0.2 Alkaline Phosphatase (U/L) Date Value 09/08/2018 78 AST (U/L) Date Value 09/08/2018 38 ALT (U/L) Date Value 09/08/2018 25 WBC Date Value Ref Range Status 09/08/2018 5.78 3.70 - 11.00 k/uL Final RBC Date Value Ref Range Status 09/08/2018 4.75 3.90 - 5.20 m/uL Final Hemoglobin Date Value Ref Range Status 09/08/2018 12.4 11.5 - 15.5 g/dL Final Hematocrit Date Value Ref Range Status 09/08/2018 37.4 36.0 - 46.0 % Final MCV Date Value Ref Range Status 09/08/2018 78.7 (L) 80.0 - 100.0 fL Final MCH Date Value Ref Range Status 09/08/2018 26.1 26.0 - 34.0 pG Final MCHC Date Value Ref Range Status 09/08/2018 33.2 30.5 - 36.0 g/dL Final RDW-CV Date Value Ref Range Status 09/08/2018 16.9 (H) 11.5 - 15.0 % Final Platelet Count Date Value Ref Range Status 09/08/2018 229 150 - 400 k/uL Final MPV Date Value Ref Range Status 09/08/2018 10.0 9.0 - 12.7 fL Final Abs Neut (ANC) Date Value Ref Range Status 09/08/2018 2.43 1.45 - 7.50 k/uL Final Lymph% Date Value Ref Range Status 09/08/2018 43.8 % Final Abs Lymph Date Value Ref Range Status 09/08/2018 2.53 1.00 - 4.00 k/uL Final Sumter% Date Value Ref Range Status 09/08/2018 13.5 % Final Abs [place] Date Value Ref Range Status 09/08/2018 0.78 0.00 - 0.86 k/uL Final Abs Eosin Date Value Ref Range Status 09/08/2018 <0.03 0.00 - 0.45 k/uL Final Baso% Date Value Ref Range Status 09/08/2018 0.7 % Final Abs Baso Date Value Ref Range Status 09/08/2018 0.04 0.00 - 0.10 k/uL Final PATH: Imaging: Assessment and Plan: Mohan Espinoza is a 84 year old year old female here for follow up. History of hairy cell leukemia status post Rituxan and fludarabine based on the review of the previous notes from Dr. Garcia in early 1999 patient has been in complete remission since that time. Requested patient to have CBC results sent to our office. See back in one year. 10 minute telephone conversation. Thank you for the kind referral. If there are any questions and or concerns please do not hesitate to contact me at [phone]. Saeid Oneil MD Hematology/Medical Oncology [facility] CC: Irlanda Baker MD Normal [facility] BASIC METABOLIC PANELon 03-23 Calcium [Mass/Vol] 9.1 mg/dL Normal 8.6-10.3 [facility] Comment on above: Order Comment: No: D o not add to previous draw Performed By: #### 0 0071, 14197, 63180, 44421, 15093, 28102 #### [facility] [address] [place] [address], [place] Chloride [Moles/Vol] 113 mmol/L High 98-107 [facility] Comment on above: Order Comment: No: D o not add to previous draw Performed By: #### 0 0071, 58547, 78122, 86883, 70712, 27061 #### [facility] [address] [place] [address], [place] CO2 [Moles/Vol] 26 mmol/L Normal 21-31 [facility] Comment on above: Order Comment: No: D o not add to previous draw Performed By: #### 0 0071, 67869, 45032, 26917, 50980, 48497 #### [facility] [address] [place] [address], [facility] Creatinine [Mass/Vol] 0.95 mg/dL Normal 0.60-1.20 [facility] Comment on above: Order Comment: No: D o not add to previous draw Performed By: #### 0 0071, 84938, 84242, 14802, 07082, 83445 #### [facility] [address] [place] [address], [facility] GFR/1.73 sq M predicted among blacks MDRD (S/P/Bld) [Vol rate/Area] mL/min/{1.73_m2} Normal >60 [facility] Comment on above: Order Comment: No: D o not add to previous draw Result Comment: Calc ulation may not be valid for patients over 70 years Performed By: #### 0 0071, 12201, 91888, 52949, 64313, 01910 #### [facility] [address] [facility] [place] [address], [facility] GFR/1.73 sq M predicted among non-blacks MDRD (S/P/Bld) [Vol rate/Area] 56 ml/min/1.73sq m Abnormal >60 [facility] Comment on above: Order Comment: No: D o not add to previous draw Result Comment: Calc ulation may not be valid for patients over 70 years Performed By: #### 0 0071, 23590, 95318, 92069, 29941, 30323 #### [facility] [address] [place] [address], [facility] Glucose [Mass/Vol] 169 mg/dL High 70-100 [facility] Comment on above: Order Comment: No: D o not add to previous draw Performed By: #### 0 0071, 91035, 30787, 19361, 89468, 27680 #### [facility] [address] [place] [address], [facility] Potassium [Moles/Vol] 4.5 mmol/L Normal 3.5-5.1 [facility] Comment on above: Order Comment: No: D o not add to previous draw Performed By: #### 0 0071, 75350, 77742, 56551, 13435, 97303 #### [facility] [address] Sodium [Moles/Vol] 147 mmol/L High 136-145 [facility] Comment on above: Order Comment: No: D o not add to previous draw Performed By: #### 0 0071, 41101, 79915, 31210, 82341, 47542 #### [facility] [address] Urea nitrogen [Mass/Vol] 18 mg/dL Normal 7-25 [facility] Comment on above: Order Comment: No: D o not add to previous draw Performed By: #### 0 0071, 89747, 27740, 42274, 79935, 29944 #### [facility] [address] CBC W/DIFFon 04-10-2018 ABS BASOPHILS 0.1 10*3/uL Normal 0.0-0.2 [facility] Comment on above: Order Comment: No: D o not add to previous draw Performed By: #### 0 0071, 51451, 25342, 02083, 89289, 13789 #### [facility] [address] ABS IMM GRANS 0.1 10*3/uL Normal 0.0-0.2 [facility] Comment on above: Order Comment: No: D o not add to previous draw Performed By: #### 0 0071, 63828, 15349, 64359, 76516, 69967 #### [facility] [address] ABS NEUTROPHILS 2.2 10*3/uL Normal 1.6-7.6 [facility] Comment on above: Order Comment: No: D o not add to previous draw Performed By: #### 0 0071, 99994, 84385, 01371, 18367, 44784 #### [facility] [address] [place] [address], [facility] Basophils/100 WBC (Bld) 1.0 % Normal 0.0-1.0 T ann marie [facility] Comment on above: Order Comment: No: D o not add to previous draw Performed By: #### 0 0071, 98631, 00965, 52205, 03412, 20044 #### [facility] [address] [place] [address], [facility] Eosinophils (Bld) [#/Vol] 0.0 10*3/uL Normal 0.0-0.5 [facility] Comment on above: Order Comment: No: D o not add to previous draw Performed By: #### 0 0071, 58315, 59246, 74962, 73906, 56118 #### [facility] [address] [place] [address], [facility] Eosinophils/100 WBC (Bld) 0.0 % Normal 0.0-6.0 [facility] Comment on above: Order Comment: No: D o not add to previous draw Performed By: #### 0 0071, 96145, 40055, 48868, 34743, 48165 #### [facility] [address] [place] [address], [facility] Erythrocyte distribution width (RBC) [Ratio] 12.9 % Normal 11.5-15.0 [facility] Comment on above: Order Comment: No: D o not add to previous draw Performed By: #### 0 0071, 48301, 24058, 99867, 67747, 55605 #### [facility] [address] [place] [address], [facility] Hematocrit (Bld) [Volume fraction] 35.3 % Low 36.0-45.0 [facility] Comment on above: Order Comment: No: D o not add to previous draw Performed By: #### 0 0071, 34948, 66166, 46962, 24724, 99793 #### [facility] [address] Hemoglobin (Bld) [Mass/Vol] 11.7 g/dL Low 12.0-15.0 [facility] Comment on above: Order Comment: No: D o not add to previous draw Performed By: #### 0 0071, 38964, 59710, 45422, 84934, 99880 #### [facility] [address] [place] [address], [facility] IMMATURE GRANS 1.0 % Normal 0.0-1.0 [facility] Comment on above: Order Comment: No: D o not add to previous draw Performed By: #### 0 0071, 76587, 99886, 99094, 40672, 30310 #### [facility] [address] Lymphocytes (Bld) [#/Vol] 1.9 10*3/uL Normal 1.2-4.0 [facility] Comment on above: Order Comment: No: D o not add to previous draw Performed By: #### 0 0071, 67219, 37442, 68380, 89916, 21255 #### [facility] [address] Lymphocytes/100 WBC (Bld) 39.0 % Normal 20.0-45.0 [facility] Comment on above: Order Comment: No: D o not add to previous draw Performed By: #### 0 0071, 95780, 86776, 25054, 48355, 71430 #### [facility] [address] [place] [address], [facility] MCH (RBC) [Entitic mass] 29.9 pg Normal 27.0-33.0 [facility] Comment on above: Order Comment: No: D o not add to previous draw Performed By: #### 0 0071, 32759, 56481, 79306, 13679, 91013 #### [facility] [address] [place] [address], [place] MCHC (RBC) [Mass/Vol] 33.1 g/dL Normal 32.0-35.0 [facility] Comment on above: Order Comment: No: D o not add to previous draw Performed By: #### 0 0071, 98516, 55109, 35025, 51724, 99428 #### [facility] [address] [place] [address], [facility] MCV (RBC) [Entitic vol] 90.3 fL Normal 82.0-98.0 T [facility] Comment on above: Order Comment: No: D o not add to previous draw Performed By: #### 0 0071, 63796, 98029, 56334, 21991, 00750 #### [facility] [address] [place] [address], [facility] Monocytes (Bld) [#/Vol] 0.7 10*3/uL Normal 0.1-1.0 [facility] Comment on above: Order Comment: No: D o not add to previous draw Performed By: #### 0 0071, 83016, 71862, 11786, 05184, 37610 #### [facility] [address] [facility] [place] [address], [facility] MONOS 14.8 % High 5.0-12.0 [facility] Comment on above: Order Comment: No: D o not add to previous draw Performed By: #### 0 0071, 77467, 71546, 01929, 02535, 65906 #### [facility] [address] [place] [address], [facility] Neutrophils/100 WBC (Bld) 44.2 % Normal 40.0-72.0 [facility] Comment on above: Order Comment: No: D o not add to previous draw Performed By: #### 0 0071, 57833, 26939, 78955, 02575, 01671 #### [facility] [address] [place] [address], [facility] Nucleated RBC/100 WBC (Bld) [Ratio] 0 % Normal 0-0 [facility] Comment on above: Order Comment: No: D o not add to previous draw Performed By: #### 0 0071, 45233, 72473, 42887, 41222, 27639 #### [facility] [address] [place] [address], [facility] PLAT CNT 178 10*3/uL Normal 150-400 [facility] Comment on above: Order Comment: No: D o not add to previous draw Performed By: #### 0 0071, 72900, 89002, 19277, 87548, 43371 #### [facility] [address] [place] [address], [facility] RBC (Bld) [#/Vol] 3.91 10*6/uL Normal 3.80-5.00 [facility] Comment on above: Order Comment: No: D o not add to previous draw Performed By: #### 0 0071, 48794, 07753, 03747, 86325, 80437 #### [facility] [address] [place] [address], [facility] WBC (Bld) [#/Vol] 4.92 10*3/uL Normal 4.00-10.60 [facility] Comment on above: Order Comment: No: D o not add to previous draw Performed By: #### 0 0071, 46336, 52164, 50387, 30270, 19764 #### [facility] [address] [place] [address], [facility] POC GLUCOSE LABon 04-10-2018 Glucose [Mass/Vol] 245 mg/dL High 70-100 [facility] Comment on above: Performed By: #### 0 0071, 69714, 48264, 10484, 56335, 19164 #### [facility] [address] [place] [address], [facility] Glucose [Mass/Vol] 220 mg/dL High 70-100 [facility] Comment on above: Performed By: #### 0 0071, 29576, 61270, 51573, 81904, 58576 #### [facility] [address] [facility]. [address] PROTHROMBIN TIMEon 9 INR Coag (PPP) [Relative time] 1.84 {INR} High 0.91-1.16 [facility] Comment on above: Result Comment: ACCC P RECOMMENDED INR FOR WARFARIN THERAPY ------- CONDITION INR PROPHYLAXIS OF VENOUS THROMBOSIS 2-3 (HIGH-RISK SURGERY) TREATMENT OF VENOUS THROMBOSIS 2-3 TREATMENT OF PULMONARY EMBOLISM 2-3 PREVENTION OF SYSTEMIC EMBOLISM: 2-3 ACUTE MYOCARDIAL INFARCTION TISSUE HEART VALVES VALVULAR HEART DISEASE ATRIAL FIBRILLATION RECURRENT SYSTEMIC EMBOLISM MECHANICAL HEART VALVE 2.5-3.5 FROM: ORAL ANTICOAGULANTS. MECHANISM OF ACTION, CLINICAL EFFECTIVENESS, AND OPTIMAL THERAPEUTIC RANGE. CHEST 1995;108:231S-246S. Performed By: #### 0 0071, 96949, 75685, 76540, 40988, 40826 #### [facility] [address] [facility] [place] [address], [facility] PT Coag (PPP) [Time] 21.3 s High 12.3-14.8 [facility] Comment on above: Result Comment: ALL RESULTS MUST BE INTERPRETED WITH RESPECT TO BLOOD DRAWING ARTIFACT OR DILUTION ERROR OF ANTICOAGULANT AT THE TIME OF SAMPLING. Performed By: #### 0 0071, 21276, 72871, 37380, 22090, 92084 #### [facility] [address] BASIC METABOLIC PANELon 03-22 Calcium [Mass/Vol] 8.5 mg/dL Low 8.6-10.3 [facility] Comment on above: Order Comment: No: D o not add to previous draw Performed By: #### 0 0071, 31434, 39384, 13478, 74750, 59645 #### [facility] [address] [place] [address], [facility] Chloride [Moles/Vol] 104 mmol/L Normal 98-107 [facility] Comment on above: Order Comment: No: D o not add to previous draw Performed By: #### 0 0071, 17117, 29655, 75289, 83538, 02733 #### [facility] [address] [place] [address], [place] CO2 [Moles/Vol] 24 mmol/L Normal 21-31 [facility] Comment on above: Order Comment: No: D o not add to previous draw Performed By: #### 0 0071, 55860, 76293, 70810, 40111, 78998 #### [facility] [address] [place] [address], [place] Creatinine [Mass/Vol] 0.90 mg/dL Normal 0.60-1.20 [facility] Comment on above: Order Comment: No: D o not add to previous draw Performed By: #### 0 0071, 70393, 98653, 89851, 59015, 61621 #### [facility] [address] [place] [address], [place] GFR/1.73 sq M predicted among blacks MDRD (S/P/Bld) [Vol rate/Area] mL/min/{1.73_m2} Normal >60 [facility] Comment on above: Order Comment: No: D o not add to previous draw Result Comment: Calc ulation may not be valid for patients over 70 years Performed By: #### 0 0071, 61461, 16239, 27835, 91073, 59062 #### [facility] [address] [place] [address], [place] GFR/1.73 sq M predicted among non-blacks MDRD (S/P/Bld) [Vol rate/Area] mL/min/{1.73_m2} Normal >60 [facility] Comment on above: Order Comment: No: D o not add to previous draw Result Comment: Calc ulation may not be valid for patients over 70 years Performed By: #### 0 0071, 26433, 34471, 51018, 17341, 75670 #### [facility] [address] [place] [address], [place] Glucose [Mass/Vol] 173 mg/dL High 70-100 [facility] Comment on above: Order Comment: No: D o not add to previous draw Performed By: #### 0 0071, 17463, 20112, 32043, 23131, 04913 #### [facility] [address] [place] [address], [place] Potassium [Moles/Vol] 4.1 mmol/L Normal 3.5-5.1 [facility] Comment on above: Order Comment: No: D o not add to previous draw Performed By: #### 0 0071, 90964, 66016, 83234, 64481, 62209 #### [facility] [address] [place] [address], [place] Sodium [Moles/Vol] 136 mmol/L Normal 136-145 [facility] Comment on above: Order Comment: No: D o not add to previous draw Performed By: #### 0 0071, 81810, 58584, 00024, 89828, 78669 #### [facility] [address] [place] [address], [place] Urea nitrogen [Mass/Vol] 21 mg/dL Normal 7-25 [facility] Comment on above: Order Comment: No: D o not add to previous draw Performed By: #### 0 0071, 82665, 06419, 27625, 13173, 98251 #### [facility] [address] [place] [address], [place] CBC COMPLETE BLOOD COUNTon 0 04-09-2018 Erythrocyte distribution width (RBC) [Ratio] 12.9 % Normal 11.5-15.0 [facility] Comment on above: Order Comment: No: D o not add to previous draw Performed By: #### 0 0071, 63466, 95277, 01088, 37641, 54205 #### [facility] [address] [place] [address], [facility] Hematocrit (Bld) [Volume fraction] 35.1 % Low 36.0-45.0 [facility] Comment on above: Order Comment: No: D o not add to previous draw Performed By: #### 0 0071, 65634, 11551, 54127, 57603, 71393 #### [facility] [address] [place] [address], [facility] Hemoglobin (Bld) [Mass/Vol] 11.4 g/dL Low 12.0-15.0 [facility] Comment on above: Order Comment: No: D o not add to previous draw Performed By: #### 0 0071, 16967, 62047, 52042, 60560, 06547 #### [facility] [address] [place] [address], [place] MCH (RBC) [Entitic mass] 29.8 pg Normal 27.0-33.0 [facility] Comment on above: Order Comment: No: D o not add to previous draw Performed By: #### 0 0071, 39935, 53548, 68735, 96651, 35044 #### [facility] [address] [place] [address], [place] MCHC (RBC) [Mass/Vol] 32.5 g/dL Normal 32.0-35.0 [facility] Comment on above: Order Comment: No: D o not add to previous draw Performed By: #### 0 0071, 27460, 82849, 03317, 87030, 34823 #### [facility] [address] [place] [address], [place] MCV (RBC) [Entitic vol] 91.9 fL Normal 82.0-98.0 [facility] Comment on above: Order Comment: No: D o not add to previous draw Performed By: #### 0 0071, 05932, 96495, 07144, 78777, 54045 #### [facility] [address] [place] [address], [facility] Nucleated RBC/100 WBC (Bld) [Ratio] 0 % Normal 0-0 [facility] Comment on above: Order Comment: No: D o not add to previous draw Performed By: #### 0 0071, 22116, 91231, 34194, 01607, 06530 #### [facility] [address] [place] [address], [facility] PLAT CNT 171 10*3/uL Normal 150-400 [facility] Comment on above: Order Comment: No: D o not add to previous draw Performed By: #### 0 0071, 17898, 71357, 03088, 77596, 09153 #### [facility] [address] [place] [address], [facility] RBC (Bld) [#/Vol] 3.82 10*6/uL Normal 3.80-5.00 [facility] Comment on above: Order Comment: No: D o not add to previous draw Performed By: #### 0 0071, 32815, 32157, 83377, 42251, 28279 #### [facility] [address] [place] [address], [facility] WBC (Bld) [#/Vol] 5.35 10*3/uL Normal 4.00-10.60 [facility] Comment on above: Order Comment: No: D o not add to previous draw Performed By: #### 0 0071, 04845, 63464, 65003, 95732, 65162 #### [facility] [address] [place] [address], [facility] Cardiovascular Lab Reporton 04-09-2018 Cardiovascular Lab Report [facility] Patient Name: Mohan Espinoza [facility] MR #: [id number] Physician: Jane Clark of [facility] Randolph Medicine Service Date: 04/08/2018 Division of Birthdate: 1935 Cardiology Room #: [id number] Adult Cardiovascular Services [facility] [address] [place] [address] Cardiovascular Laboratory Report CARDIAC CATHETERIZATION REPORT INDICATION: The patient is an 82-year-old woman with coronary artery disease status post bypass surgery in the past. She is admitted with a urinary tract infection and mdg-SM-zamancu elevation myocardial infarction. She was referred for cardiac catheterization. PROCEDURE: 1. Bilateral selective coronary angiography. 2. Graft angiography. 3. Limited right femoral angiography. 4. Successful balloon dilatation and drug-eluting stenting of 99% mid RCA stenosis reduced to 0% by a Synergy 3.0 x 32 mm drug-eluting stent postdilated to 3.0 mm at high pressures. 5. Successful balloon dilation and drug-eluting stenting of 90% mid RCA stenosis reduced to 0% by deployment of a Synergy 3.0 x 12 mm drug-eluting stent postdilated to 3.0 mm at high pressures. 6. Successful balloon dilatation and drug-eluting stenting of 99% distal RCA stenosis reduced to 0% by deployment of a Synergy 2.5 x 20 mm drug-eluting stent postdilated to 2.5 mm at high pressure. 7. Administration of intracoronary nitroglycerin. 8. Deployment of a vascular access closure device. METHOD: Procedure was explained to the patient with the risks and benefits. She signed informed consent. She was brought to labor relations analyst in a fasting state. The right groin area was prepped and draped in usual fashion. Using micropuncture technique, the right common femoral artery was accessed. The inner cannula was advanced and the right femoral angiography was performed followed by upsizing to a 6-Macedonian x 11 cm sheath. Bilateral selective coronary angiography was then performed using 6-Macedonian JL4 and JR4 diagnostic catheters. A 6-Macedonian AR2 diagnostic catheter was used to selectively engage the saphenous venous graft to the obtuse marginal branch and right coronary artery and the radial graft to the diagonal branch. Angiography was performed. Catheter was removed. A 6-Macedonian FRANCES diagnostic catheter was used to selectively engage the left subclavian artery and then selectively engage. The left internal mammary artery angiography was performed. Catheter was removed. Heparin was administered intravenously and therapeutic ACT confirmed during the procedure. A 6-Macedonian JR4 guiding catheter was advanced and used to engage the right coronary ostium. A Prowater wire was advanced into the distal RCA, balloon angioplasty in the distal RCA was performed using Emerge 2.5 x 15 mm balloon inflated at 12 atmospheres. The balloon was brought backwards to the mid RCA and used to perform balloon angioplasty. Additional balloon dilatation was then performed using a NC Quantum [place] 2.5 x 8 mm balloon inflated at 14 atmospheres in the mid and distal RCA. Angiography was performed after administration of intracoronary nitroglycerin, this showed suboptimal results, therefore a Synergy 2.5 x 20 mm drug-eluting stent was advanced and deployed at 11 atmospheres in the distal RCA extending into the PDA branch. Another Synergy 3.0 x 12 mm drug-eluting stent was deployed in the mid focal lesion at 11 atmospheres, this was followed by deployment of another Synergy 3.0 x 32 mm drug-eluting stent deployed in the morrrftz-ay-qwc RCA at 11 atmospheres. Following that, NC Quantum [place] 2.5 x 8 mm noncompliant balloon was advanced into the distal stent and used to perform postdilatation at 16 atmospheres followed by postdilatation using NC Quantum [place] 3.0 x 8 mm balloon inflated at 18 atmospheres in the distal stent of the mid segment followed by additional postdilatation using NC Quantum [place] 3.0 x 20 mm noncompliant balloon inflated at 18 atmospheres in the zcymwbhu-bd-xuz segment stent. Intracoronary nitroglycerin 100 mcg was administered followed by final angiography, which showed excellent result with reduction of the stenosis to 0%. No evidence of dissection or perforation. The guiding catheter was removed. Procedure was concluded. The right femoral arteriotomy was managed with a 6-Macedonian Angio-Seal device with good hemostasis. She tolerated the procedure well. She was loaded with 600 mg of Plavix at the end of the procedure and was transferred back to her room. TOTAL FLUORO TIME: 28.22 minutes. TOTAL AIR KERMA: 3081 mGy. TOTAL CONTRAST VOLUME: 200 mL. HEMODYNAMICS: AO 167/76, mean 104. CORONARY ANGIOGRAPHY: This is a right dominant circulation. Left main. This arises from left coronary cusp. It bifurcates into left anterior descending, circumflex vessels, left main has a 50% stenosis. Left anterior descending. This is occluded proximally. The distal LAD is seen filling via patent SAMSON graft. The diagonal branch is seen filling via a patent radial graft. Circumflex vessel. This has a 60% proximal to mid segment stenosis and distally has mild disease. Right coronary artery. This arises from the right coronary cusp. It is a large and dominant vessel. It has diffuse disease throughout its course reaching 99% in the rbyowaja-ci-jyw segment. Another lesion was 90% in the tku-po-vznocz segment and then this was followed by another 99% stenosis in the distal segment extending into the PDA branch. All stenosis was reduced to 0% by Synergy drug-eluting stents as noted above. GRAFT ANGIOGRAPHY: SAMSON to LAD. This graft is widely patent. Radial graft to the diagonal branch. This graft is patent with mild disease at its ostium. Saphenous venous graft to the RCA. This graft is stump occluded. Saphenous venous graft to the OM. This graft is stump occluded. Limited right femoral angiography. This showed access in the right common femoral artery with no obstructive lesions noted in the femoral artery or its proximal branches. SUMMARY OF THE FINDINGS: 1. Severe 3-vessel coronary artery disease. 2. Patent 2/4 bypass grafts (patent SAMSON to LAD, patent radial graft to the diagonal branch, occluded saphenous venous graft to the OM, occluded saphenous venous graft to the PDA). 3. A 99% vmfvskzg-qe-kza, 90% mid, and 99% wdt-ck-wueipw stenosis in the RCA, all reduced to 0% by Synergy drug-eluting stents. RECOMMENDATIONS: 1. Aspirin and statin therapy for life. 2. Plavix therapy for minimum of 6 months to 12 months after Synergy drug-eluting stenting and NSTEMI presentation. 3. The patient can resume anticoagulation therapy for her hypercoagulable state. 4. In order to reduce the risk of bleeding, in 3-6 months aspirin can be omitted from her regimen and she can continue on Plavix and anticoagulation therapy up to 12 months after which aspirin can be resumed and Plavix can be stopped. 5. Follow up with Dr. Robert Tompkins in Cardiology Clinic. Electronically Signed by: Jane Randolph M.D. 04/17/2018 12:42 P Jane Randolph M.D. Date Dict: 04/08/2018/05:57 P/Jane Randolph M.D. Date Trans: 04/09/2018 06:33 A/alli [id number] cc: Romario Baker M.D. [address] [place] [address] Robert Tompkins M.D. [address] [place] [address] Normal [facility] MAGNESIUM BLOODon 04-09-2018 Magnesium [Mass/Vol] 1.6 mg/dL Low 1.9-2.7 [facility] Comment on above: Order Comment: No: D o not add to previous draw Performed By: #### 0 0071, 69321, 85517, 66587, 88377, 88250 #### [facility] [address] [place] [address], [place] POC GLUCOSE LABon 04-09-2018 Glucose [Mass/Vol] 253 mg/dL High 70-100 [facility] Comment on above: Performed By: #### 0 0071, 13521, 26585, 35531, 88477, 61595 #### [facility] [address] [place] [address], [place] Glucose [Mass/Vol] 161 mg/dL High 70-100 [facility] Comment on above: Performed By: #### 0 0071, 57513, 43977, 46869, 15911, 07510 #### [facility] [address] [place] [address], [place] Glucose [Mass/Vol] 244 mg/dL High 70-100 [facility] Comment on above: Performed By: #### 0 0071, 12164, 46084, 96790, 11632, 72153 #### [facility] [address] [place] [address], [place] Glucose [Mass/Vol] 175 mg/dL High 70-100 [facility] Comment on above: Performed By: #### 0 0071, 67715, 07291, 46367, 30466, 91463 #### [facility] [address] [facility]. [address] PROTHROMBIN TIMEon 9 INR Coag (PPP) [Relative time] 1.72 {INR} High 0.91-1.16 [facility] Comment on above: Result Comment: ACCC P RECOMMENDED INR FOR WARFARIN THERAPY ------- CONDITION INR PROPHYLAXIS OF VENOUS THROMBOSIS 2-3 (HIGH-RISK SURGERY) TREATMENT OF VENOUS THROMBOSIS 2-3 TREATMENT OF PULMONARY EMBOLISM 2-3 PREVENTION OF SYSTEMIC EMBOLISM: 2-3 ACUTE MYOCARDIAL INFARCTION TISSUE HEART VALVES VALVULAR HEART DISEASE ATRIAL FIBRILLATION RECURRENT SYSTEMIC EMBOLISM MECHANICAL HEART VALVE 2.5-3.5 FROM: ORAL ANTICOAGULANTS. MECHANISM OF ACTION, CLINICAL EFFECTIVENESS, AND OPTIMAL THERAPEUTIC RANGE. CHEST 1995;108:231S-246S. Performed By: #### 0 0071, 35116, 37700, 79025, 32134, 76458 #### [facility] [address] [facility] [place] [address], [facility] PT Coag (PPP) [Time] 20.2 s High 12.3-14.8 [facility] Comment on above: Result Comment: ALL RESULTS MUST BE INTERPRETED WITH RESPECT TO BLOOD DRAWING ARTIFACT OR DILUTION ERROR OF ANTICOAGULANT AT THE TIME OF SAMPLING. Performed By: #### 0 0071, 47367, 85924, 05512, 36271, 68237 #### [facility] [address] [facility] [place] [address], [place] BASIC METABOLIC PANELon 03-22 Calcium [Mass/Vol] 9.1 mg/dL Normal 8.6-10.3 [facility] Comment on above: Order Comment: No: D o not add to previous draw Performed By: #### 0 0071, 90221, 45110, 61398, 95992, 73268 #### [facility] [address] [place] [address], [facility] Chloride [Moles/Vol] 103 mmol/L Normal 98-107 [facility] Comment on above: Order Comment: No: D o not add to previous draw Performed By: #### 0 0071, 56945, 24219, 69695, 33943, 56251 #### [facility] [address] [place] [address], [facility] CO2 [Moles/Vol] 24 mmol/L Normal 21-31 [facility] Comment on above: Order Comment: No: D o not add to previous draw Performed By: #### 0 0071, 41933, 58707, 27297, 64911, 49431 #### [facility] [address] [place] [address], [facility] Creatinine [Mass/Vol] 0.95 mg/dL Normal 0.60-1.20 [facility] Comment on above: Order Comment: No: D o not add to previous draw Performed By: #### 0 0071, 27755, 75156, 11465, 15485, 90732 #### [facility] [address] [place] [address], [place] GFR/1.73 sq M predicted among blacks MDRD (S/P/Bld) [Vol rate/Area] mL/min/{1.73_m2} Normal >60 [facility] Comment on above: Order Comment: No: D o not add to previous draw Result Comment: Calc ulation may not be valid for patients over 70 years Performed By: #### 0 0071, 87458, 12545, 18388, 82655, 07825 #### [facility] [address] [place] [address], [facility] GFR/1.73 sq M predicted among non-blacks MDRD (S/P/Bld) [Vol rate/Area] 56 ml/min/1.73sq m Abnormal >60 [facility] Comment on above: Order Comment: No: D o not add to previous draw Result Comment: Calc ulation may not be valid for patients over 70 years Performed By: #### 0 0071, 52115, 45853, 61646, 11784, 18813 #### [facility] [address] [place] [address], [facility] Glucose [Mass/Vol] 158 mg/dL High 70-100 [facility] Comment on above: Order Comment: No: D o not add to previous draw Performed By: #### 0 0071, 60050, 97196, 46171, 51539, 13141 #### [facility] [address] [place] [address], [facility] Potassium [Moles/Vol] 4.3 mmol/L Normal 3.5-5.1 [facility] Comment on above: Order Comment: No: D o not add to previous draw Performed By: #### 0 0071, 80916, 67844, 59719, 78979, 26346 #### [facility] [address] [place] [address], [facility] Sodium [Moles/Vol] 134 mmol/L Low 136-145 [facility] Comment on above: Order Comment: No: D o not add to previous draw Performed By: #### 0 0071, 39641, 26609, 95765, 94978, 76017 #### [facility] [address] [place] [address], [facility] Urea nitrogen [Mass/Vol] 24 mg/dL Normal 7-25 [facility] Comment on above: Order Comment: No: D o not add to previous draw Performed By: #### 0 0071, 23236, 51563, 61606, 33761, 74193 #### [facility] [address] CBC COMPLETE BLOOD COUNTon 0 - Erythrocyte distribution width (RBC) [Ratio] 13.0 % Normal 11.5-15.0 [facility] Comment on above: Order Comment: No: D o not add to previous draw Performed By: #### 0 0071, 22054, 95403, 67493, 86104, 17461 #### [facility] [address] [place] [address], [facility] Hematocrit (Bld) [Volume fraction] 38.4 % Normal 36.0-45.0 [facility] Comment on above: Order Comment: No: D o not add to previous draw Performed By: #### 0 0071, 65588, 08233, 96013, 17156, 23485 #### [facility] [address] [facility] Hemoglobin (Bld) [Mass/Vol] 12.7 g/dL Normal 12.0-15.0 [facility] Comment on above: Order Comment: No: D o not add to previous draw Performed By: #### 0 0071, 46788, 83597, 27688, 38651, 79197 #### [facility] [address] [place] [address], [facility] MCH (RBC) [Entitic mass] 30.4 pg Normal 27.0-33.0 [facility] Comment on above: Order Comment: No: D o not add to previous draw Performed By: #### 0 0071, 83590, 67238, 63686, 75849, 69070 #### [facility] [address] [facility] [place] [address], [facility] MCHC (RBC) [Mass/Vol] 33.1 g/dL Normal 32.0-35.0 [facility] Comment on above: Order Comment: No: D o not add to previous draw Performed By: #### 0 0071, 81282, 89559, 07890, 83655, 64648 #### [facility] [address] [place] [address], [facility] MCV (RBC) [Entitic vol] 91.9 fL Normal 82.0-98.0 [facility] Comment on above: Order Comment: No: D o not add to previous draw Performed By: #### 0 0071, 53304, 65561, 37783, 64093, 70136 #### [facility] [address] [place] [address], [facility] Nucleated RBC/100 WBC (Bld) [Ratio] 0 % Normal 0-0 [facility] Comment on above: Order Comment: No: D o not add to previous draw Performed By: #### 0 0071, 23035, 99745, 21776, 59088, 17392 #### [facility] [address] [facility] [place] [address], [facility] PLAT CNT 164 10*3/uL Normal 150-400 [facility] Comment on above: Order Comment: No: D o not add to previous draw Performed By: #### 0 0071, 09223, 20272, 30498, 90898, 83430 #### [facility] [address] [place] [address], [facility] RBC (Bld) [#/Vol] 4.18 10*6/uL Normal 3.80-5.00 [facility] Comment on above: Order Comment: No: D o not add to previous draw Performed By: #### 0 0071, 75320, 75032, 35785, 56016, 54839 #### [facility] [address] [place] [address], [facility] WBC (Bld) [#/Vol] 6.62 10*3/uL Normal 4.00-10.60 [facility] Comment on above: Order Comment: No: D o not add to previous draw Performed By: #### 0 0071, 71855, 18252, 80746, 81219, 84311 #### [facility] [address] [place] [address], [facility] MAGNESIUM BLOODon 01-18-2019 Magnesium [Mass/Vol] 1.9 mg/dL Normal 1.9-2.7 [facility] Comment on above: Order Comment: No: D o not add to previous draw Performed By: #### 0 0071, 65346, 69664, 70709, 51316, 72657 #### [facility] [address] [place] [address], [facility] POC GLUCOSE LABon 04-08-2018 Glucose [Mass/Vol] 199 mg/dL High 70-100 [facility] Comment on above: Performed By: #### 0 0071, 97334, 53282, 98901, 27525, 99604 #### [facility] [address] [place] [address], [facility] Glucose [Mass/Vol] 198 mg/dL High 70-100 [facility] Comment on above: Performed By: #### 0 0071, 18550, 74731, 02101, 38219, 84421 #### [facility] [address] [place] [address], [facility] Glucose [Mass/Vol] 155 mg/dL High 70-100 [facility] Comment on above: Performed By: #### 0 0071, 07816, 20997, 17844, 87331, 27720 #### [facility] [address] [place] [address], [facility] PROTHROMBIN TIMEon 9 INR Coag (PPP) [Relative time] 1.68 {INR} High 0.91-1.16 [facility] Comment on above: Result Comment: ACCC P RECOMMENDED INR FOR WARFARIN THERAPY ------- CONDITION INR PROPHYLAXIS OF VENOUS THROMBOSIS 2-3 (HIGH-RISK SURGERY) TREATMENT OF VENOUS THROMBOSIS 2-3 TREATMENT OF PULMONARY EMBOLISM 2-3 PREVENTION OF SYSTEMIC EMBOLISM: 2-3 ACUTE MYOCARDIAL INFARCTION TISSUE HEART VALVES VALVULAR HEART DISEASE ATRIAL FIBRILLATION RECURRENT SYSTEMIC EMBOLISM MECHANICAL HEART VALVE 2.5-3.5 FROM: ORAL ANTICOAGULANTS. MECHANISM OF ACTION, CLINICAL EFFECTIVENESS, AND OPTIMAL THERAPEUTIC RANGE. CHEST 1995;108:231S-246S. Performed By: #### 0 0071, 29266, 56026, 06883, 78819, 11766 #### [facility] [address] PT Coag (PPP) [Time] 19.9 s High 12.3-14.8 [facility] Comment on above: Result Comment: ALL RESULTS MUST BE INTERPRETED WITH RESPECT TO BLOOD DRAWING ARTIFACT OR DILUTION ERROR OF ANTICOAGULANT AT THE TIME OF SAMPLING. Performed By: #### 0 0071, 91634, 34659, 56518, 67578, 64992 #### [facility] [address] [place], [place] [id number] [place] [address] *RAPID FLU AANDB BY MITCHELL Connor 04-07-2018 *RAPID FLU AANDB BY MOLECULAR Clinical Report: (D) Specimen: NASAL SWAB Collected: 04/06/2018 22:10 Status: Final Last Updated: 04/06/2018 23:10 FLUA RNA (Final) Negative FLUB RNA (Final) Negative Normal [facility] Comment on above: Performed By: #### 0 0071, 34284, 99275, 39474, 57387, 81905 #### [facility] [address] [place] [address], [facility] BASIC METABOLIC PANELon 03-22 Calcium [Mass/Vol] 8.3 mg/dL Low 8.6-10.3 [facility] Comment on above: Order Comment: No: D o not add to previous draw Performed By: #### 0 0071, 47050, 62099, 04824, 62885, 96061 #### [facility] [address] [place] [address], [facility] Chloride [Moles/Vol] 105 mmol/L Normal 98-107 [facility] Comment on above: Order Comment: No: D o not add to previous draw Performed By: #### 0 0071, 66880, 20283, 61915, 28533, 21737 #### [facility] [address] [place] [address], [facility] CO2 [Moles/Vol] 24 mmol/L Normal 21-31 [facility] Comment on above: Order Comment: No: D o not add to previous draw Performed By: #### 0 0071, 26258, 08840, 06541, 50097, 31031 #### [facility] [address] [place] [address], [facility] Creatinine [Mass/Vol] 1.24 mg/dL High 0.60-1.20 [facility] Comment on above: Order Comment: No: D o not add to previous draw Performed By: #### 0 0071, 94462, 04290, 57805, 51421, 75740 #### [facility] [address] [place] [address], [facility] GFR/1.73 sq M predicted among blacks MDRD (S/P/Bld) [Vol rate/Area] 50 ml/min/1.73sq m Abnormal >60 [facility] Comment on above: Order Comment: No: D o not add to previous draw Result Comment: Calc ulation may not be valid for patients over 70 years Performed By: #### 0 0071, 16438, 90663, 84509, 26680, 16165 #### [facility] [address] [place] [address], [facility] GFR/1.73 sq M predicted among non-blacks MDRD (S/P/Bld) [Vol rate/Area] 42 ml/min/1.73sq m Abnormal >60 [facility] Comment on above: Order Comment: No: D o not add to previous draw Result Comment: Calc ulation may not be valid for patients over 70 years Performed By: #### 0 0071, 84665, 62880, 71591, 52207, 92785 #### [facility] [address] [place] [address], [facility] Glucose [Mass/Vol] 166 mg/dL High 70-100 [facility] Comment on above: Order Comment: No: D o not add to previous draw Performed By: #### 0 0071, 81596, 14681, 44235, 95086, 85765 #### [facility] [address] [place] [address], [facility] Potassium [Moles/Vol] 4.2 mmol/L Normal 3.5-5.1 [facility] Comment on above: Order Comment: No: D o not add to previous draw Performed By: #### 0 0071, 95077, 58104, 70469, 31901, 40741 #### [facility] [address] [facility]. [address] Sodium [Moles/Vol] 135 mmol/L Low 136-145 [facility] Comment on above: Order Comment: No: D o not add to previous draw Performed By: #### 0 0071, 73969, 38861, 58507, 11581, 07917 #### [facility] [address] [place] [address], [facility] Urea nitrogen [Mass/Vol] 33 mg/dL High 7-25 [facility] Comment on above: Order Comment: No: D o not add to previous draw Performed By: #### 0 0071, 81462, 86949, 26403, 98862, 55971 #### [facility] [address] [facility] [place] [address], [facility] CBC W/DIFFon 04-07-2018 ABS BASOPHILS 0.1 10*3/uL Normal 0.0-0.2 [facility] Comment on above: Order Comment: No: D o not add to previous draw Performed By: #### 0 0071, 48745, 37244, 60519, 75369, 22479 #### [facility] [address] [place] [address], [facility] ABS IMM GRANS 0.1 10*3/uL Normal 0.0-0.2 [facility] Comment on above: Order Comment: No: D o not add to previous draw Performed By: #### 0 0071, 33806, 70714, 47368, 53190, 42506 #### [facility] [address] [place] [address], [facility] ABS NEUTROPHILS 6.4 10*3/uL Normal 1.6-7.6 [facility] Comment on above: Order Comment: No: D o not add to previous draw Performed By: #### 0 0071, 21032, 38199, 49058, 53166, 01482 #### [facility] [address] [place] [address], [facility] Basophils/100 WBC (Bld) 0.5 % Normal 0.0-1.0 T ann marie [facility] Comment on above: Order Comment: No: D o not add to previous draw Performed By: #### 0 0071, 88749, 21693, 31844, 53943, 70529 #### [facility] [address] [place] [address], [facility] Eosinophils (Bld) [#/Vol] 0.0 10*3/uL Normal 0.0-0.5 [facility] Comment on above: Order Comment: No: D o not add to previous draw Performed By: #### 0 0071, 55876, 65505, 88627, 70287, 44402 #### [facility] [address] [place] [address], [facility] Eosinophils/100 WBC (Bld) 0.0 % Normal 0.0-6.0 [facility] Comment on above: Order Comment: No: D o not add to previous draw Performed By: #### 0 0071, 78640, 53704, 47575, 45627, 46403 #### [facility] [address] Erythrocyte distribution width (RBC) [Ratio] 13.2 % Normal 11.5-15.0 [facility] Comment on above: Order Comment: No: D o not add to previous draw Performed By: #### 0 0071, 14344, 35076, 45216, 76213, 47170 #### [facility] [address] [place] [address], [facility] Hematocrit (Bld) [Volume fraction] 35.0 % Low 36.0-45.0 [facility] Comment on above: Order Comment: No: D o not add to previous draw Performed By: #### 0 0071, 94229, 99337, 52011, 70571, 77065 #### [facility] [address] [facility] Hemoglobin (Bld) [Mass/Vol] 11.4 g/dL Low 12.0-15.0 [facility] Comment on above: Order Comment: No: D o not add to previous draw Performed By: #### 0 0071, 88270, 07024, 59739, 52372, 66703 #### [facility] [address] [facility] [place] [address], [facility] IMMATURE GRANS 0.5 % Normal 0.0-1.0 [facility] Comment on above: Order Comment: No: D o not add to previous draw Performed By: #### 0 0071, 87053, 77844, 43798, 69576, 25385 #### [facility] [address] [facility] [place] [id number], [facility] Lymphocytes (Bld) [#/Vol] 2.1 10*3/uL Normal 1.2-4.0 [facility] Comment on above: Order Comment: No: D o not add to previous draw Performed By: #### 0 0071, 10688, 01357, 04963, 13852, 24977 #### [facility] [address] Lymphocytes/100 WBC (Bld) 21.7 % Normal 20.0-45.0 [facility] Comment on above: Order Comment: No: D o not add to previous draw Performed By: #### 0 0071, 62868, 69036, 42868, 67796, 88061 #### [facility] [address] [facility] [place] [address], [facility] MCH (RBC) [Entitic mass] 29.8 pg Normal 27.0-33.0 [facility] Comment on above: Order Comment: No: D o not add to previous draw Performed By: #### 0 0071, 25306, 65293, 11611, 65962, 91202 #### [facility] [address] [place] [address], [facility] MCHC (RBC) [Mass/Vol] 32.6 g/dL Normal 32.0-35.0 [facility] Comment on above: Order Comment: No: D o not add to previous draw Performed By: #### 0 0071, 94141, 15436, 97123, 01735, 77910 #### [facility] [address] [place] [address], [facility] MCV (RBC) [Entitic vol] 91.4 fL Normal 82.0-98.0 T [facility] Comment on above: Order Comment: No: D o not add to previous draw Performed By: #### 0 0071, 46938, 19228, 72721, 54224, 85686 #### [facility] [address] [place] [address], [facility] Monocytes (Bld) [#/Vol] 1.0 10*3/uL Normal 0.1-1.0 [facility] Comment on above: Order Comment: No: D o not add to previous draw Performed By: #### 0 0071, 85046, 05354, 16535, 76249, 41083 #### [facility] [address] [place] [address], [facility] MONOS 10.6 % Normal 5.0-12.0 [facility] Comment on above: Order Comment: No: D o not add to previous draw Performed By: #### 0 0071, 03124, 42679, 15668, 09047, 21770 #### [facility] [address] [place] [id number], [facility] Neutrophils/100 WBC (Bld) 66.7 % Normal 40.0-72.0 [facility] Comment on above: Order Comment: No: D o not add to previous draw Performed By: #### 0 0071, 77719, 33913, 72557, 32256, 27290 #### [facility] [address] [facility] [place] [address], [facility] Nucleated RBC/100 WBC (Bld) [Ratio] 0 % Normal 0-0 [facility] Comment on above: Order Comment: No: D o not add to previous draw Performed By: #### 0 0071, 04664, 32313, 21625, 18637, 19930 #### [facility] [address] [address], [facility] PLAT CNT 150 10*3/uL Normal 150-400 [facility] Comment on above: Order Comment: No: D o not add to previous draw Performed By: #### 0 0071, 33161, 65965, 32987, 24325, 09631 #### [facility] [address] [place] [id number], [facility] RBC (Bld) [#/Vol] 3.83 10*6/uL Normal 3.80-5.00 [facility] Comment on above: Order Comment: No: D o not add to previous draw Performed By: #### 0 0071, 46373, 15988, 64403, 36640, 63964 #### [facility] [address] [place] [address], [place] WBC (Bld) [#/Vol] 9.53 10*3/uL Normal 4.00-10.60 [facility] Comment on above: Order Comment: No: D o not add to previous draw Performed By: #### 0 0071, 83934, 70017, 22679, 86443, 76726 #### [facility] [address] [place] [address], [facility] MAGNESIUM BLOODon 04-07-2018 Magnesium [Mass/Vol] 1.4 mg/dL Low 1.9-2.7 [facility] Comment on above: Order Comment: No: D o not add to previous draw Performed By: #### 0 0071, 47954, 65859, 81134, 52532, 22234 #### [facility] [address] [place] [address], [facility] PHOSPHORUS BLOODon 9 Phosphate [Mass/Vol] 2.6 mg/dL Normal 2.5-5.0 [facility] Comment on above: Order Comment: No: D o not add to previous draw Performed By: #### 0 0071, 15405, 48321, 33501, 01985, 13506 #### [facility] [address] [place] [address], [place] POC GLUCOSE LABon 04-07-2018 Glucose [Mass/Vol] 187 mg/dL High 70-100 [facility] Comment on above: Performed By: #### 0 0071, 85007, 86995, 97587, 86352, 84523 #### [facility] [address] [place] [address], [place] Glucose [Mass/Vol] 182 mg/dL High 70-100 [facility] Comment on above: Performed By: #### 0 0071, 42866, 43917, 68373, 60263, 57178 #### [facility] [address] [place] [address], [place] Glucose [Mass/Vol] 156 mg/dL High 70-100 [facility] Comment on above: Performed By: #### 0 0071, 73704, 32799, 76821, 06025, 11038 #### [facility] [address] [facility] [place] [address], [facility] Glucose [Mass/Vol] 148 mg/dL High 70-100 [facility] Comment on above: Performed By: #### 0 0071, 65753, 24343, 39033, 93180, 04097 #### [facility] [address] [facility] PROTHROMBIN TIMEon 9 INR Coag (PPP) [Relative time] 1.65 {INR} High 0.91-1.16 [facility] Comment on above: Result Comment: ACCC P RECOMMENDED INR FOR WARFARIN THERAPY ------- CONDITION INR PROPHYLAXIS OF VENOUS THROMBOSIS 2-3 (HIGH-RISK SURGERY) TREATMENT OF VENOUS THROMBOSIS 2-3 TREATMENT OF PULMONARY EMBOLISM 2-3 PREVENTION OF SYSTEMIC EMBOLISM: 2-3 ACUTE MYOCARDIAL INFARCTION TISSUE HEART VALVES VALVULAR HEART DISEASE ATRIAL FIBRILLATION RECURRENT SYSTEMIC EMBOLISM MECHANICAL HEART VALVE 2.5-3.5 FROM: ORAL ANTICOAGULANTS. MECHANISM OF ACTION, CLINICAL EFFECTIVENESS, AND OPTIMAL THERAPEUTIC RANGE. CHEST 1995;108:231S-246S. Performed By: #### 0 0071, 63322, 70189, 61814, 56782, 29291 #### [facility] [address] [facility] [place] [address], [facility] PT Coag (PPP) [Time] 19.6 s High 12.3-14.8 [facility] Comment on above: Result Comment: ALL RESULTS MUST BE INTERPRETED WITH RESPECT TO BLOOD DRAWING ARTIFACT OR DILUTION ERROR OF ANTICOAGULANT AT THE TIME OF SAMPLING. Performed By: #### 0 0071, 10984, 01819, 54310, 68389, 24218 #### [facility] [address] [facility] [place] [address], [facility] INR Coag (PPP) [Relative time] 1.68 {INR} High 0.91-1.16 [facility] Comment on above: Result Comment: ACCC P RECOMMENDED INR FOR WARFARIN THERAPY ------- CONDITION INR PROPHYLAXIS OF VENOUS THROMBOSIS 2-3 (HIGH-RISK SURGERY) TREATMENT OF VENOUS THROMBOSIS 2-3 TREATMENT OF PULMONARY EMBOLISM 2-3 PREVENTION OF SYSTEMIC EMBOLISM: 2-3 ACUTE MYOCARDIAL INFARCTION TISSUE HEART VALVES VALVULAR HEART DISEASE ATRIAL FIBRILLATION RECURRENT SYSTEMIC EMBOLISM MECHANICAL HEART VALVE 2.5-3.5 FROM: ORAL ANTICOAGULANTS. MECHANISM OF ACTION, CLINICAL EFFECTIVENESS, AND OPTIMAL THERAPEUTIC RANGE. CHEST 1995;108:231S-246S. Performed By: #### 0 0071, 36276, 00805, 60574, 85145, 10622 #### [facility] [address] [facility] [place] [address], [facility] PT Coag (PPP) [Time] 19.9 s High 12.3-14.8 [facility] Comment on above: Result Comment: ALL RESULTS MUST BE INTERPRETED WITH RESPECT TO BLOOD DRAWING ARTIFACT OR DILUTION ERROR OF ANTICOAGULANT AT THE TIME OF SAMPLING. Performed By: #### 0 0071, 71787, 16600, 24615, 18348, 23689 #### [facility] [address] [place] [address], [facility] TROPONIN-Ion 04-07-2018 Troponin I.cardiac [Mass/Vol] 0.15 ng/mL Critically high 0.00-0.04 [facility] Comment on above: Order Comment: No: D o not add to previous draw Result Comment: M-KS EVIOUS CRITICAL RESULT REFERENCE RANGES: 0.00 - 0.04 ng/ml NORMAL 0.05 - 0.50 ng/ml INDETERMINATE > 0.50 ng/ml CONSISTENT WITH AN M.I. Performed By: #### 0 0071, 99508, 66042, 66349, 35333, 99149 #### [facility] [address] [place] [address], [facility] Troponin I.cardiac [Mass/Vol] 0.17 ng/mL Critically high 0.00-0.04 [facility] Comment on above: Result Comment: M-KS EVIOUS CRITICAL RESULT REFERENCE RANGES: 0.00 - 0.04 ng/ml NORMAL 0.05 - 0.50 ng/ml INDETERMINATE > 0.50 ng/ml CONSISTENT WITH AN M.I. Performed By: #### 0 0071, 84479, 71363, 89110, 09728, 89250 #### [facility] [address] [place] [address], [facility] Troponin I.cardiac [Mass/Vol] 0.20 ng/mL Critically high 0.00-0.04 [facility] Comment on above: Order Comment: No: D o not add to previous draw Result Comment: M-KS EVIOUS CRITICAL RESULT REFERENCE RANGES: 0.00 - 0.04 ng/ml NORMAL 0.05 - 0.50 ng/ml INDETERMINATE > 0.50 ng/ml CONSISTENT WITH AN M.I. Performed By: #### 0 0071, 64024, 03817, 92498, 78079, 61602 #### [facility] [address] [place] [address], [facility] URINALYSIS REFLEXon 04-07-19 19 Appearance (U) SL CLOUDY Abnormal CLEAR [facility] Comment on above: Order Comment: No: D o not add to previous draw Performed By: #### 0 [id number], [id number], 81691, 14974, 79647, 37690 #### [facility] [address] [place] [address], [facility] Bilirubin [Mass/Vol] Negative Normal NEGATIVE [facility] Comment on above: Order Comment: No: D o not add to previous draw Performed By: #### 0 [id number], [id number], 83136, 67114, 61185, 33301 #### [facility] [address] [place] [address], [place] BLOOD Negative Normal NEGATIVE [facility] Comment on above: Order Comment: No: D o not add to previous draw Performed By: #### 0 [id number], 78602, 11169, 93487, 12341, 25270 #### [facility] [address] [place] [address], [place] Color (U) YELLOW Normal YELLOW [facility] Comment on above: Order Comment: No: D o not add to previous draw Performed By: #### 0 [id number], [id number], 79751, 14116, 23967, 54368 #### [facility] [address] [place] [address], [place] EPIS MANY Abnormal FEW,OCC,NONE SEEN [facility] Comment on above: Order Comment: No: D o not add to previous draw Performed By: #### 0 0071, 92747, 14183, 11244, 85806, 45150 #### [facility] [address] [place] [address], [place] Glucose [Mass/Vol] Negative Normal NEGATIVE [facility] Comment on above: Order Comment: No: D o not add to previous draw Performed By: #### 0 0071, 65463, 49151, 17948, 70999, 83579 #### [facility] [address] [place] [address], [place] KETONE Negative Normal NEGATIVE [facility] Comment on above: Order Comment: No: D o not add to previous draw Performed By: #### 0 0071, 58083, 24238, 07912, 79699, 22625 #### [facility] [address] [place] [address], [facility] LEUK LIYAH MODERATE Abnormal NEGATIVE [facility] Comment on above: Order Comment: No: D o not add to previous draw Performed By: #### 0 0071, 49681, 71635, 54357, 90871, 61295 #### [facility] [address] [place] [address], [facility] Nitrite Ql (U) Negative Normal NEGATIVE [facility] Comment on above: Order Comment: No: D o not add to previous draw Performed By: #### 0 0071, 77393, 28547, 25249, 26727, 14217 #### [facility] [address] [facility] [place] [address], [facility] pH (Bld) 5.0 Normal 5.0-8.0 [facility] Comment on above: Order Comment: No: D o not add to previous draw Performed By: #### 0 0071, 17429, 62107, 72388, 13859, 01477 #### [facility] [address] [facility] [place] [address], [facility] Protein (U) [Mass/Vol] Negative Normal NEGATIVE [facility] Comment on above: Order Comment: No: D o not add to previous draw Performed By: #### 0 0071, 04890, 12768, 21109, 70213, 89781 #### [facility] [address] [facility] [place] [address], [facility] RBC (U) [#/Vol] 0-2 Abnormal NONE SEEN [facility] Comment on above: Order Comment: No: D o not add to previous draw Performed By: #### 0 0071, 48732, 06296, 96568, 82371, 83471 #### [facility] [address] [facility] [place] [address], [facility] SPEC GRAV 1.019 Normal 1.015-1.020 [facility] Comment on above: Order Comment: No: D o not add to previous draw Performed By: #### 0 0071, 50670, 53953, 64239, 23257, 07668 #### [facility] [address] [place] [address], [facility] WBC UA 11-20 Abnormal NONE SEEN [facility] Comment on above: Order Comment: No: D o not add to previous draw Performed By: #### 0 0071, 17340, 16465, 82887, 94202, 53795 #### [facility] [address] [place] [address], [facility] *A-LEGIONELLA AG URon 2018 DIRECT EXAM test. Normal [facility] Comment on above: Order Comment: No: D o not add to previous draw [place] Normal [facility] Comment on above: Order Comment: No: D o not add to previous draw REPORT STATUS FINAL 04/07/2018 Normal [facility] Comment on above: Order Comment: No: D o not add to previous draw *BLOOD CULTUREon 04-06-2018 Bacteria identified Cx Nom (Bld) Clinical Report: (D) Specimen: BLOOD CULTURE Collected: 04/06/2018 19:35 Status: Final Last Updated: 04/12/2018 07:54 (1) x 2 Prior to Antibiotic Administration CULT RES (Final) No Growth Day 5 Normal [facility] Comment on above: Order Comment: No: D o not add to previous draw Performed By: #### 0 0071, 62660, 59306, 49742, 21607, 73480 #### [facility] [address] [address], [facility] Bacteria identified Cx Nom (Bld) Clinical Report: (D) Specimen: BLOOD CULTURE Collected: 04/06/2018 19:34 Status: Final Last Updated: 04/12/2018 07:54 (1) x 2 Prior to Antibiotic Administration CULT RES (Final) No Growth Day 5 Normal [facility] Comment on above: Order Comment: No: D o not add to previous draw Performed By: #### 0 0071, 12595, 64860, 64768, 80012, 80322 #### [facility] [address] [place] [address], [place] BASIC METABOLIC PANELon 03-22 Calcium [Mass/Vol] 8.5 mg/dL Low 8.6-10.3 [facility] Comment on above: Order Comment: No: D o not add to previous draw Performed By: #### 0 0071, 84707, 16224, 79369, 74846, 23613 #### [facility] [address] [place] [address], [facility] Chloride [Moles/Vol] 104 mmol/L Normal 98-107 [facility] Comment on above: Order Comment: No: D o not add to previous draw Performed By: #### 0 0071, 96196, 37220, 53779, 07092, 71739 #### [facility] [address] [place] [address], [facility] CO2 [Moles/Vol] 22 mmol/L Normal 21-31 [facility] Comment on above: Order Comment: No: D o not add to previous draw Performed By: #### 0 0071, 78222, 90145, 41295, 12693, 64543 #### [facility] [address] [place] [address], [facility] Creatinine [Mass/Vol] 1.41 mg/dL High 0.60-1.20 [facility] Comment on above: Order Comment: No: D o not add to previous draw Performed By: #### 0 0071, 05280, 07847, 78462, 31631, 20009 #### [facility] [address] [place] [address], [place] GFR/1.73 sq M predicted among blacks MDRD (S/P/Bld) [Vol rate/Area] 44 ml/min/1.73sq m Abnormal >60 [facility] Comment on above: Order Comment: No: D o not add to previous draw Result Comment: Calc ulation may not be valid for patients over 70 years Performed By: #### 0 0071, 17364, 24197, 76502, 84313, 61841 #### [facility] [address] [place] [address], [facility] GFR/1.73 sq M predicted among non-blacks MDRD (S/P/Bld) [Vol rate/Area] 36 ml/min/1.73sq m Abnormal >60 [facility] Comment on above: Order Comment: No: D o not add to previous draw Result Comment: Calc ulation may not be valid for patients over 70 years Performed By: #### 0 0071, 05689, 11477, 30819, 54041, 51282 #### [facility] [address] [place] [address], [facility] Glucose [Mass/Vol] 198 mg/dL High 70-100 [facility] Comment on above: Order Comment: No: D o not add to previous draw Performed By: #### 0 0071, 61208, 37047, 87142, 69602, 54790 #### [facility] [address] [place] [address], [facility] Potassium [Moles/Vol] 4.7 mmol/L Normal 3.5-5.1 [facility] Comment on above: Order Comment: No: D o not add to previous draw Performed By: #### 0 0071, 44425, 80515, 87548, 53780, 56297 #### [facility] [address] [place] [address], [facility] Sodium [Moles/Vol] 135 mmol/L Low 136-145 [facility] Comment on above: Order Comment: No: D o not add to previous draw Performed By: #### 0 0071, 75822, 36347, 80803, 13277, 40657 #### [facility] [address] [place] [address], [facility] Urea nitrogen [Mass/Vol] 34 mg/dL High 7-25 [facility] Comment on above: Order Comment: No: D o not add to previous draw Performed By: #### 0 0071, 56988, 98062, 88320, 07196, 47808 #### [facility] [address] CBC W/DIFFon 04-06-2018 ABS BASOPHILS 0.1 10*3/uL Normal 0.0-0.2 [facility] Comment on above: Performed By: #### 5 0103 #### [facility] [address] ABS IMM GRANS 0.1 10*3/uL Normal 0.0-0.2 [facility] Comment on above: Performed By: #### 5 0103 #### [facility] [address] ABS NEUTROPHILS 11.3 10*3/uL High 1.6-7.6 [facility] Comment on above: Performed By: #### 5 0103 #### [facility] [address] Basophils/100 WBC (Bld) 0.3 % Normal 0.0-1.0 T ann marie [facility] Comment on above: Performed By: #### 5 0103 #### [facility] [address] [place] [address], [facility] Eosinophils (Bld) [#/Vol] 0.0 10*3/uL Normal 0.0-0.5 [facility] Comment on above: Performed By: #### 5 0103 #### [facility] [address] [place] [address], [facility] Eosinophils/100 WBC (Bld) 0.0 % Normal 0.0-6.0 [facility] Comment on above: Performed By: #### 5 0103 #### [facility] [address] Erythrocyte distribution width (RBC) [Ratio] 13.1 % Normal 11.5-15.0 [facility] Comment on above: Performed By: #### 5 0103 #### [facility] [address] Hematocrit (Bld) [Volume fraction] 38.9 % Normal 36.0-45.0 [facility] Comment on above: Performed By: #### 5 0103 #### [facility] [address] Hemoglobin (Bld) [Mass/Vol] 12.7 g/dL Normal 12.0-15.0 [facility] Comment on above: Performed By: #### 0103 #### [facility] [address] IMMATURE GRANS 0.3 % Normal 0.0-1.0 [facility] Comment on above: Performed By: #### 102 #### [facility] [address] Lymphocytes (Bld) [#/Vol] 1.8 10*3/uL Normal 1.2-4.0 [facility] Comment on above: Performed By: #### 3 #### [facility] [address] Lymphocytes/100 WBC (Bld) 12.2 % Low 20.0-45.0 [facility] Comment on above: Performed By: #### 3 #### [facility] [address] MCH (RBC) [Entitic mass] 30.5 pg Normal 27.0-33.0 [facility] Comment on above: Performed By: #### 3 #### [facility] [address] [place] [address], [facility] MCHC (RBC) [Mass/Vol] 32.6 g/dL Normal 32.0-35.0 [facility] Comment on above: Performed By: #### 3 #### [facility] [address] [place] [address], [facility] MCV (RBC) [Entitic vol] 93.3 fL Normal 82.0-98.0 [facility] Comment on above: Performed By: #### 5 0103 #### [facility] [address] [place] [address], [facility] Monocytes (Bld) [#/Vol] 1.2 10*3/uL High 0.1-1.0 [facility] Comment on above: Performed By: #### 5 0103 #### [facility] [address] [facility]. [place] [id number], [facility] MONOS 8.4 % Normal 5.0-12.0 [facility] Comment on above: Performed By: #### 5 102 #### [facility] [address] [facility] [place] [id number], [facility] Neutrophils/100 WBC (Bld) 78.8 % High 40.0-72.0 [facility] Comment on above: Performed By: #### 102 #### [facility] [address] [facility] [place] [id number], [facility] Nucleated RBC/100 WBC (Bld) [Ratio] 0 % Normal 0-0 [facility] Comment on above: Performed By: #### 5 102 #### [facility] [address] [place] [address], [facility] PLAT CNT 156 10*3/uL Normal 150-400 [facility] Comment on above: Performed By: #### 5 3 #### [facility] [address] [place] [address], [facility] RBC (Bld) [#/Vol] 4.17 10*6/uL Normal 3.80-5.00 [facility] Comment on above: Performed By: #### 102 #### [facility] [address] [place] [address], [facility] WBC (Bld) [#/Vol] 14.33 10*3/uL High 4.00-10.60 [facility] Comment on above: Performed By: #### 5 0103 #### [address] CHEST AND LATERALon 04-06-19 19 CHEST AND LATERAL [facility] Department of Radiology [address] [place] [id number] Patient Name: MOHAN ESPINOZA : 1935 Sex: F Age: Race: White Pt. 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 QUESTION FOR THE RADIOLOGIST: R/O Pneumonia PROTOCOL: AP(PA) and Lateral views were obtained. COMPARISON: 04/02/2007 FINDINGS: Unchanged cardiomediastinal silhouette. Median sternotomy wires. Minimal bibasilar opacities, likely atelectasis or scarring. No pleural effusion. No pneumothorax. Degenerative changes of the thoracic spine. IMPRESSION: No radiographic evidence of acute cardiopulmonary process. Minimal basal atelectasis. Approved by:Murtaza Villagran on 04/07/2018 8:42 AM EST. I, Ronna Villalobos, have reviewed the images and report and concur with these findings. Electronically signed by:Ronna Villalobos. Transcribed by: [email or web address], User Resident: MURTAZA VILLAGRAN Electronically Signed by: RONNA VILLALOBOS @ 04/07/2018 09:13 AM I personally read this/these film(s) with this resident Normal [facility] Comment on above: Order Comment: No: D o not add to previous draw DIGOXINon 04-06-2018 Digoxin [Mass/Vol] 0.7 ng/mL Normal 0.7-2.0 [facility] Comment on above: Performed By: #### 0 0071, 91301, 70568, 39856, 00782, 22082 #### [facility] [address] [place] [address], [facility] LIVER BATTERYon 04-06-2018 Albumin [Mass/Vol] 3.4 g/dL Low 3.5-5.7 [facility] Comment on above: Order Comment: No: D o not add to previous draw Performed By: #### 0 0071, 45023, 35445, 96824, 73866, 63806 #### [facility] [address] [place] [address], [facility] ALKALINE PHOSPH 50 IU/L Normal 34-104 [facility] Comment on above: Order Comment: No: D o not add to previous draw Performed By: #### 0 0071, 30916, 96989, 02114, 54057, 54507 #### [facility] [address] [place] [address], [facility] ALT [Catalytic activity/Vol] 16 U/L Normal 7-52 [facility] Comment on above: Order Comment: No: D o not add to previous draw Performed By: #### 0 0071, 98016, 72596, 34142, 43551, 50600 #### [facility] [address] [place] [address], [facility] AST [Catalytic activity/Vol] 17 U/L Normal 13-39 [facility] Comment on above: Order Comment: No: D o not add to previous draw Performed By: #### 0 0071, 91887, 08633, 57650, 91608, 76862 #### [facility] [address] [place] [address], [place] Bilirubin [Mass/Vol] 0.5 mg/dL Normal 0.3-1.0 [facility] Comment on above: Order Comment: No: D o not add to previous draw Performed By: #### 0 0071, 98596, 55226, 02093, 68386, 69115 #### [facility] [address] [place] [address], [facility] Bilirubin.direct [Mass/Vol] 0.1 mg/dL Normal 0.0-0.2 [facility] Comment on above: Order Comment: No: D o not add to previous draw Performed By: #### 0 0071, 10661, 48245, 54254, 50278, 15453 #### [facility] [address] [place] [address], [facility] Protein [Mass/Vol] 6.2 g/dL Normal 6.0-8.3 [facility] Comment on above: Order Comment: No: D o not add to previous draw Performed By: #### 0 0071, 24007, 73357, 00121, 68681, 87870 #### [facility] [address] [place] [address], [place] MAGNESIUM BLOODon 04-06-2018 Magnesium [Mass/Vol] 1.3 mg/dL Low 1.9-2.7 [facility] Comment on above: Order Comment: No: D o not add to previous draw Performed By: #### 0 0071, 79064, 54415, 02867, 50283, 95557 #### [facility] [address] PHOSPHORUS BLOODon 9 Phosphate [Mass/Vol] 2.6 mg/dL Normal 2.5-5.0 [facility] Comment on above: Order Comment: No: D o not add to previous draw Performed By: #### 0 0071, 39534, 70391, 62706, 09540, 23462 #### [facility] [address] POC GLUCOSE LABon 04-06-2018 Glucose [Mass/Vol] 172 mg/dL High 70-100 [facility] Comment on above: Performed By: #### 8 5499 #### [facility] [address] PROCALCITONINon 04-06-2018 PROCALCITONIN 2.61 ng/mL Critically high 0.00-0.10 [facility] Comment on above: Order Comment: Yes: Add to Previous draw if able Result Comment: Susp ected Lower Respiratory Tract Infection: 0.1-0.25ng/mL- Low likelihood for bacterial infection;Antibiotics discouraged.* >0.25ng/mL- Increased likelihood bacterial infection;Antibiotics encouraged. Suspected Sepsis: Strongly consider initiating antibiotics in all unstable patients. 0.1-0.5ng/mL- Low likelihood for sepsis; Antibiotics discouraged.* >0.5ng/mL- Increased likelihood sepsis; Antibiotics encouraged. >2.0ng/mL- High risk of sepsis/septic shock; Antibiotics strongly encouraged. *Recommend retesting PCT within 6-12hours if clinically indicated and initial PCT<0.5ng/mL RESULTS CHECKED AND CALLED. ACCURATELY READ BACK BY LAURA VITAL RN AT 2034 Performed By: #### 3 1488 #### [facility] [address] [place] [address], [facility] SEPSIS LACTATE W/REFLEXon Lactate [Moles/Vol] 1.4 mmol/L Normal 0.5-2.2 [facility] Comment on above: Order Comment: No: D o not add to previous draw Performed By: #### 3 1414 #### [facility] [address] [facility] [place] [address], [facility] TROPONIN-Ion 04-06-2018 Troponin I.cardiac [Mass/Vol] 0.23 ng/mL Critically high 0.00-0.04 [facility] Comment on above: Order Comment: No: D o not add to previous draw 175- PATIENT DOES NOT HAVE I.D. BAND YET -TECH BM 1824- NO I.D. BAND YET -TECH GC Result Comment: M-CR ITICAL RESULT(S) REVIEWED, CALLED TO AND READ BACK BY LAURA VITAL RN AT 2108 REFERENCE RANGES: 0.00 - 0.04 ng/ml NORMAL 0.05 - 0.50 ng/ml INDETERMINATE > 0.50 ng/ml CONSISTENT WITH AN M.I. Performed By: #### 0 0071, 82496, 88533, 33283, 28885, 85044 #### [facility] [address] [facility] [place] [address], [facility] CRPon 11-05-2017 CRP mass conc 4.0 mg/dL High <=1.9 [facility] Comment on above: Performed By: #### 2 [id number] ####[facility] [id number] [place] [address] Vital Signs Date Time Vital Sign Value Performing Clinician Facility 07-01-2022 09:34-0400 Body height 172.72 cm Shaikh Marion Work Phone: [facility] [address] DO Work Phone: 07-01-2022 09:34-0400 Body mass index (BMI) [Ratio] Patient Reason Not Done Shaikh Marion Work Phone: [facility] DO Work Phone: 07-01-2022 09:34-0400 Diastolic blood pressure 66 mm[Hg] Shaikh Marion Work Phone: [facility] 250 DO Work Phone: 07-01-2022 09:34-0400 Heart rate 68 /min Birgitluis Work Phone: [facility] 250 DO Work Phone: 07-01-2022 09:34-0400 Systolic blood pressure 106 mm[Hg] Shaikh Marion Work Phone: [facility] DO Work Phone: 07-01-2022 09:34-0400 16 1 Shaikh Binaandie Work Phone: [facility] DO Work Phone: Comment on above: PHQ-9 TS 06-23-2022 11:26-0400 Body temperature 97.4 [degF] MD Shaikh Schultz Work Phone: [facility] 06-23-2022 11:26-0400 Diastolic blood pressure 69 mm[Hg] MD Shaikh Schultz Work Phone: [facility] 06-23-2022 11:26-0400 Heart rate 100 /min MD Shaikh Schultz Work Phone: [facility] 06-23-2022 11:26-0400 Respiratory rate 18 /min MD Shaikh Schultz Work Phone: [facility] 06-23-2022 11:26-0400 SaO2% (BldA) [Mass fraction] 96 % MD Shaikh Schultz Work Phone: [facility] 06-23-2022 11:26-0400 Systolic blood pressure 123 mm[Hg] MD Shaikh Schultz Work Phone: [facility] 06-23-2022 08:03-0400 Inhaled oxygen flow rate 1 L/min MD Shaikh Schultz Work Phone: [facility] 06-23-2022 06:00-0400 Body weight 136.4 kg MD Shaikh Schultz Work Phone: [facility] 06-22-2022 14:39-0400 Body height 172.72 cm MD Shaikh Schultz Work Phone: [facility] 06-22-2022 00:00-0400 45 1 Shaikh Marion Work Phone: [facility] 250 DO Work Phone: Comment on above: [id number] Encounters Encounter Date Encounter Type Care Provider Facility Start: 04-12-2023 End: 04-12-2023 ambulatory SHAIKH MARION Not Available Start: 09-30-[address] Joseluis Casey Facility: Start: 09-11-2022 Rx Renewal Shaikh Marion Work Phone: [facility] DO Work Phone: Start: 07-27-2022 ambulatory JOSELUIS CASEY Facilit y:[id number] Start: 07-23-2022 ambulatory JOSELUIS CASEY Facilit y:[id number] Start: 07-01-2022 Office outpatient vi sit 40 minutes Shaikh Marion Work Phone: [facility] DO Work Phone: Start: 07-01-[address] Shaikh Schultz Facil ity: Start: 06-29-2022 End: 06-29-2022 ambulatory MD Shaikh Schultz Work Phone: [facility] Work Phone: Start: 06-29-2022 End: 06-29-2022 Departed Referred MD Shaikh Schultz Work Phone: [facility] Work Phone: Start: 06-23-[address] Joseluis Casey Facility:[id number] Start: 06-22-[address] Joseluis Casey Fac ility:[id number] Start: 06-22-2022 End: 06-23-2022 Evaluation and management of inpatient Toi Chamorro reneawillperlita Facility:[facility] Start: 06-22-2022 End: 06-23-2022 Evaluation and management of inpatient MD Shaikh Schultz Work Phone: [facility] Work Phone: Start: 06-22-[address] Joseluis Casey Facility:[id number] Start: 06-21-2022 End: 06-22-[address] JAYY BAIRES . Facility:[facility] Start: 12-29-2021 End: 12-30-2021 ambulatory SHAIKH Guillermo SCHULTZ Facility:[facility] Start: 09-29-2021 End: 09-30-2021 ambulatory GOOD H MARION Facility:[facility] Start: 06-30-2021 End: 07-01-2021 ambulatory GOOD H BINAD Facility:[facility] Start: 04-06-2018 End: 04-10-2018 Evaluation and management of inpatient DAVE MACDONALD Facility:[facility] Start: 11-05-2017 End: 11-06-2017 Patient encounter Darrian Benton Facility:[facility] Procedures Date Procedure Procedure Detail Performing Clinician Start: 03-22-2019 Total colonoscopy Shaik guillermo Schultz Work Phone: Start: 04-08-2018 DILATION OF 1 COR AR T WITH 3 DRUG-ELUT, PERC APPROACH JANE RANDOLPH Start: 04-08-2018 FLUOROSCOPY OF L INT MAMM GRAFT USING OTH CONTRAST JANE RANDOLPH Start: 04-08-2018 FLUOROSCOPY OF MULT COR A GRAFT USING OTH CONTRAST JANE RANDOLPH Start: 04-08-2018 FLUOROSCOPY OF MULTI PLE CORONARY ARTERIES USING OTH CONTRAST JANE RANDOLPH Appendectomy Marion Work Phone: History of coronary artery bypass grafting History of coronary artery bypass graft Marion Work Phone: History of placement of stent for coronary artery disease History of heart artery stent MD Shaikh Schultz Work Phone: Insertion of inferio r vena caval filter Goodguillermo Schultz Work Phone: Plan of Treatment Date Care Activity Detail Author Start: 09-30-2022 FUV, Provider: Joseluis Casey, Status: Pen, Time: 9:20 AM FUV, Provider: Joseluis Casey, Status: Pen, Time: 9:20 AM [facility] 250 DO Work Phone: Start: 07-27-2022 REST ONLY, Provider: AQUILINO HHVI NUCLEAR 01,[id number], Status: Pen, Time: 1:00 PM REST ONLY, Provider: AQUILINO HHVI NUCLEAR 01,[id number], Status: Pen, Time: 1:00 PM [facility] 250 DO Work Phone: Start: 07-23-2022 STRESSNUC2, Provider : AQUILINO HHVI NUCLEAR 01,[id number], Status: Pen, Time: 1:00 PM STRESSNUC2, Provider: AQUILINO HHVI NUCLEAR 01,[id number], Status: Pen, Time: 1:00 PM [facility] 250 DO Work Phone: Start: 06-23-2022 [facility] Start: 06-22-2022 Hospital admission [facility] Blood chemistry [facility] Patient Education Heart Failure, Adult (DC) [facility] Work Phone: Patient referral [facility] Work Phone: [facility] Immunizations Immunization Date Immunization Notes Care Provider Fa cility 01-21-2021 Moderna COVID-19 Vac cine 100 MCG/0.5ML Intramuscular Suspension Good Fawwad Work Phone: [facility] 250 DO Work Phone: 12-31-2020 Seasonal trivalent influenza vaccine, adjuvanted, preservative free Good [place]ad Work Phone: [facility] 250 DO Work Phone: 05-21-2020 Moderna COVID-19 Vac cine 100 MCG/0.5ML Intramuscular Suspension Good [place]wad Work Phone: [facility] 250 DO Work Phone: 04-23-2020 Moderna COVID-19 Vac cine 100 MCG/0.5ML Intramuscular Suspension Good [place] Work Phone: [facility] 250 DO Work Phone: 12-28-2019 Seasonal trivalent influenza vaccine, adjuvanted, preservative free Good [place]wad Work Phone: [facility] 250 DO Work Phone: 01-18-2019 Seasonal trivalent influenza vaccine, adjuvanted, preservative free Good [place]ad Work Phone: [facility] Work Phone: 02-01-2018 Seasonal trivalent influenza vaccine, adjuvanted, preservative free Good [place]wad Work Phone: [facility] 250 DO Work Phone: 01-07-2017 Seasonal trivalent influenza vaccine, adjuvanted, preservative free Good Fawwad Work Phone: [facility] 250 DO Work Phone: 02-26-2014 influenza, injectabl e, quadrivalent, contains preservative Shaikh Binad Work Phone: [facility] 250 DO Work Phone: 12-26-2012 influenza, seasonal, injectable Good Caronwad Work Phone: [facility] 250 DO Work Phone: 03-22-2002 pneumococcal polysaccharide vaccine, 23 valent Shaikh Binad Work Phone: [place] [address] DO Work Phone: Comment on above: Series: Payers Date Payer Category Payer Self-pay [id number] 1957 Medicare [id number] 3ff [id number] 1959 Unknown [id number] 1937 Unknown [id number] 2.16.8 [id number] 1937 Unknown [id number] 2.16.84 [id number] 1937 Unknown [id number] 2.16.84 0.1.755990.3.579.2.593 1937 Unknown [id number] 2.16.84 0.1.542016.3.579.2.593 1937 Unknown [id number] 2.16.84 0.1.384240.3.579.2.593 1937 Unknown [id number] 2.16.8 40.1.019372.3.579.2.1068 1937 Unknown [id number] 2.16.8 40.1.178403.3.579.2.1068 1937 Unknown [id number] 2.16. 840.1.915330.3.579.2.356 1937 Unknown [id number] 2.16. 840.1.157334.3.579.2.356 1937 Unknown [id number] 2.16. 840.1.984457.3.579.2.356 1937 Unknown [id number] 2.16. 840.1.241992.3.579.2.356 1937 Unknown [id number] 2.16. 840.1.761524.3.579.2.356 1937 Unknown [id number] 2.16.84 0.1.006414.3.579.2.1259 Medicare [id number] Unknown Unknown [id number] 2.16.8 40.1.035140.3.579.2.531 Unknown [id number] 2.16.8 [id number] Social History Date Type Detail Facility Start: 06-22-2022 [facility] [place] (finding) [facility] Start: 1935 Sex Assigned At Female F [facility] Caffeine use Caffeine use [facility] 250 DO Work Phone: Comment on above: 2.5 cups coffee in m or[place]; Goals Date Patient Goal Desired Activity /State Functional Status Date Assessment Result Facility 06-23-2022 Functional status Patient at Baseline [facility] Work Phone: Mental Status Date Assessment Result Facility 06-23-2022 Cognitive function Cognitive Sta tus Patient at Baseline [facility] Work Phone: Progress note 06-23-2022 Note Date & Type Note Facility 06-23-2022 Progress note Note Date/Time June 23, 2022 12:11pm [facility] [address] [place] [address] Hospitalist Progress Note Signed Patient: AlexisMohan MR#: [id number] : 1935 Acct:[id number] Age/Sex: 86 / F Adm Date: 3 Loc: 4 Room: [address] [place] [address] Type: ADM IN Attending Dr: Brissa Hoffman MD Copies to: ~ Date of Service: 06/23/2022 Subjective Subjective Narrative: Patient has been seen and examined today. She is doing quite well. Denies any chest pain any shortness of breath but being tired Physical exam: General -awake, alert, oriented ?3, not in acute distress Cardiovascular -S1 with S2 Pulmonary - clear to auscultation bilaterally Gastrointestinal - abdomen is soft, nondistended, nontender, bowel sounds positive, there is no rigidity, no rebound Extremities -no edema Neurological -no focal neurological dysfunction noted Exam Physical Exam Vital Signs: Temp Pulse Resp BP Pulse Ox O2 Del Method O2 Flow Rate 36.3 C L 100 H 18 123/69 96 Room Air 1 06/23/22 11:26 06/23/22 11:26 06/23/22 11:26 06/23/22 11:26 06/23/22 11:26 06/23/22 11:26 06/23/22 08:03 Objective Lab Results 06/23/22 10:06 06/23/22 10:06 Meds Allergies and Active Meds Allergies albuterol Allergy (Verified 06/22/22 03:36) Unknown Reaction Active Meds: Active Medications Generic Name Dose Route Start Last Admin Trade Name Freq PRN Reason Stop Dose Admin Acetaminophen 650 mg 06/22/22 04:52 Acetaminophen 325 Mg Tablet PO 06/22/23 04:51 Q6HR PRN Pain Scale 1 - 3 or fever Allopurinol 300 mg 06/22/22 09:00 06/23/22 09:13 Allopurinol 300 Mg Tablet PO 06/22/23 08:59 300 mg DAILY PERLA Administration Atorvastatin Calcium 40 mg 06/23/22 21:00 Atorvastatin 40 Mg Tablet PO 06/23/23 20:59 QPM PERLA Dextrose 0 gm 06/22/22 05:06 Dextrose 50% In Water 25 Gm/50 Ml Syringe IV-PUSH 06/22/23 05:05 PRN PRN Hypoglycemia Furosemide 40 mg 06/22/22 08:00 06/23/22 09:13 Furosemide 40 Mg Tablet PO 06/22/23 07:59 40 mg DAILY@0800 PERLA Administration Glucose 0 gm 06/22/22 05:06 Dextrose 40% Gel 15 Gm Tube PO 06/22/23 05:05 PRN PRN Hypoglycemia Insulin Aspart 0 units 06/22/22 08:00 06/23/22 09:14 Insulin Aspart 300 Units/3 Ml Insuln.Pen SUBCUT 06/22/23 07:59 1 units TID.WM.HS PERLA Administration Protocol Levothyroxine Sodium 200 mcg 06/22/22 06:30 06/23/22 06:57 Levothyroxine 200 Mcg Tablet PO 06/22/23 06:29 200 mcg DAILY@0630 PERLA Administration Losartan Potassium 100 mg 06/22/22 09:00 06/22/22 09:07 Losartan 50 Mg Tablet PO 06/22/23 08:59 Not Given DAILY PERLA Metoprolol Succinate 150 mg 06/24/22 09:00 Metoprolol Succinate 50 Mg Tab.Er.24h PO 06/24/23 08:59 DAILY PERLA Rivaroxaban 15 mg 06/22/22 17:00 06/22/22 17:00 Rivaroxaban 15 Mg Tablet PO 06/22/23 16:59 15 mg DAILY@17 PERLA Administration A&P - Hospitalist Assessment/Plan (1) Elevated troponin: (2) HTN (hypertension): (3) Diabetes mellitus: (4) Atrial fibrillation: (5) CAD (coronary artery disease): (6) Dyspnea: Plan 1. Elevated troponin, Dyspnea History of several MIs and CABG, A-fib on Xarelto ? Evaluated by cardiology 2. Type 2 diabetes with hyperglycemia ? Glucose checks ACHS ? Started sliding scale insulin 3. Mildly abnormal UA ? UA from outside hospital shows trace bacteria, hyaline casts, crystals ? Request results of urine culture from outside hospital - Hold on antibiotic therapy at this time 4. Atrial fibrillation ? Patient's EKG shows A-fib with RVR, ventricular rate 102 ? Patient admitted on telemetry, currently shows A-fib with ventricular rate of 85 ? 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 HOME HEALTH TO MANAGE: Nursing/PT to eval and treat Monitor VS per protocol Monitor Cardiovascular assessment--Elevated troponin, CAD, HTN Please draw a BMP in 5 days, Send to Dr. Schultz Assist with medication management and provide medication education Assist with glucose control Provide education on high risk fall precautions [facility] Work Phone: Progress note 06-23-2022 Note Date & Type Note Facility 06-23-2022 Progress note Note Date/Time June 23, 2022 9:56 am [facility] [address] [place] [address] Cardiology Progress Note Signed Patient: Mohan Espinoza MR#: [id number] : 1935 Acct:[id number] Age/Sex: 86 / F Adm Date: 3 Loc: Room: [address] [place] [address] Type: ADM IN Attending Dr: Brissa Hoffman MD Copies to: ~ Date of Service: 06/23/2022 Subjective Principal diagnosis: Atrial fibrillation, ASHD, CHF, mild LV dysfunction, history of CABG Interval history: Stable, asymptomatic with resting tachycardia/A-fib at 100 bpm. Troponin 75 down from 279. Renal function not reassessed this morning and therefore we willsimply reassess chemistry profile. Patient states she is breathing much better. Recommendations: Increase metoprolol to 150 daily, reassess renal profile, add statin; if renal function is same or better, she can be discharged on therapies as mentioned above, to follow-up with Dr. Randolph in [place], for further evaluation and management Exam Physical Exam Vital Signs: Temp Pulse Resp BP Pulse Ox O2 Del Method O2 Flow Rate 97.6 F 91 H 16 132/80 95 Nasal Cannula 1 06/23/22 07:52 06/23/22 07:52 06/23/22 07:52 06/23/22 07:52 06/23/22 07:52 06/23/22 08:03 06/23/22 08:03 Const General: cooperative, comfortable and no acute distress Nutritional Appearance: obese Orientation: alert, awake and oriented x3 Resp Effort & Inspection: normal respiratory effort Auscultation: clear to auscultation bilaterally Cardio Rate: tachycardic Rhythm: abnormal rhythm Heart Sounds: S1 normal, S2 normal and no murmurs GI Inspection: obesity Palpation: soft Neuro General: patient alert, patient awake and patient oriented x3 Extrem General: no clubbing, cyanosis or edema Objective Labs 06/22/22 05:17 06/22/22 05:17 Labs: Laboratory Results - last 24 hr 06/22/22 06/22/22 06/22/22 10:05 10:11 16:12 POC Glucose 201 Total Creatine Kinase 130 Troponin I High Sens 168.1 H* 182.3 H* 06/22/22 06/22/22 06/23/22 19:23 21:05 02:19 POC Glucose 245 Total Creatine Kinase 114 88 Troponin I High Sens 86.3 H* 75.9 H* 06/23/22 06:59 POC Glucose 166 Total Creatine Kinase Troponin I High Sens A&P - Cardiology (1) History of heart artery stent: Code(s): Z95.5 - Presence of coronary angioplasty implant and graft Status: Acute (2) History of open heart surgery: Code(s): Z98.890 - Other specified postprocedural states Status: Acute (3) Atrial fibrillation: Code(s): I48.91 - Unspecified atrial fibrillation Status: Acute (4) Elevated troponin: Code(s): R77.8 - Other specified abnormalities of plasma proteins Status: Acute (5) CKD (chronic kidney disease), stage III: Code(s): N18.3 - Chronic kidney disease, stage 3 (moderate) Status: Acute (6) Diabetes mellitus: Code(s): E11.9 - Type 2 diabetes mellitus without complications Status: Acute (7) H/O pulmonary artery thrombosis: Code(s): Z86.711 - Personal history of pulmonary embolism Status: Acute (8) Chronic anticoagulation: Code(s): Z79.01 - half-way (current) use of anticoagulants Status: Acute (9) Factor V Leiden: Code(s): D68.51 - Activated protein C resistance Status: Acute Documented By: Sharron Casey DO 06/23/22 0952 Signed By: <Electronically signed by Sharron Casey DO> 06/23/22 0956 [facility] Work Phone: Progress note 06-22-2022 Note Date & Type Note Facility 06-22-2022 Progress note Note Date/Time June 22, 2022 2:12pm [facility] [address] [place] [address] Hospitalist Progress Note Signed Patient: Mohan Espinoza MR#: [id number] : 1935 Acct:[id number] Age/Sex: 86 / F Adm Date: 3 Loc: Room: [address] [place] [address] Type: ADM IN Attending Dr: Brissa Hoffman MD Copies to: ~ Date of Service: 06/22/2022 Subjective Subjective Narrative: Patient has been seen and examined today. She is doing quite well. Denies any chest pain any shortness of breath but being tired Physical exam: General -awake, alert, oriented ?3, not in acute distress Cardiovascular -S1 with S2 Pulmonary - clear to auscultation bilaterally Gastrointestinal - abdomen is soft, nondistended, nontender, bowel sounds positive, there is no rigidity, no rebound Extremities -no edema Neurological -no focal neurological dysfunction noted Exam Physical Exam Vital Signs: Temp Pulse Resp BP Pulse Ox O2 Del Method O2 Flow Rate 36.3 C L 84 22 103/60 95 Nasal Cannula 2 06/22/22 11:54 06/22/22 11:54 06/22/22 11:54 06/22/22 11:54 06/22/22 11:54 06/22/22 11:54 06/22/22 11:54 Objective Lab Results 06/22/22 05:17 06/22/22 05:17 Meds Allergies and Active Meds Allergies albuterol Allergy (Verified 06/22/22 03:36) Unknown Reaction Active Meds: Active Medications Generic Name Dose Route Start Last Admin Trade Name Freq PRN Reason Stop Dose Admin Acetaminophen 650 mg 06/22/22 04:52 Acetaminophen 325 Mg Tablet PO 06/22/23 04:51 Q6HR PRN Pain Scale 1 - 3 or fever Allopurinol 300 mg 06/22/22 09:00 06/22/22 08:30 Allopurinol 300 Mg Tablet PO 06/22/23 08:59 300 mg DAILY PERLA Administration Dextrose 0 gm 06/22/22 05:06 Dextrose 50% In Water 25 Gm/50 Ml Syringe IV-PUSH 06/22/23 05:05 PRN PRN Hypoglycemia Furosemide 40 mg 06/22/22 08:00 06/22/22 07:48 Furosemide 40 Mg Tablet PO 06/22/23 07:59 Not Given DAILY@0800 PERLA Glucose 0 gm 06/22/22 05:06 Dextrose 40% Gel 15 Gm Tube PO 06/22/23 05:05 PRN PRN Hypoglycemia Insulin Aspart 0 units 06/22/22 08:00 06/22/22 12:02 Insulin Aspart 300 Units/3 Ml Insuln.Pen SUBCUT 06/22/23 07:59 1 units TID.WM.[facility] Administration Protocol Levothyroxine Sodium 200 mcg 06/22/22 06:30 06/22/22 05:49 Levothyroxine 200 Mcg Tablet PO 06/22/23 06:29 200 mcg DAILY@0630 [facility] Administration Losartan Potassium 100 mg 06/22/22 09:00 06/22/22 09:07 Losartan 50 Mg Tablet PO 06/22/23 08:59 Not Given DAILY [facility] Metoprolol Succinate 100 mg 06/22/22 09:00 06/22/22 09:08 Metoprolol Succinate 100 Mg Tab.Er.24h PO 06/22/23 08:59 Not Given DAILY [facility] Rivaroxaban 15 mg 06/22/22 17:00 Rivaroxaban 15 Mg Tablet PO 06/22/23 16:59 DAILY@17 [facility] A&P - Hospitalist Assessment/Plan (1) Elevated troponin: (2) HTN (hypertension): (3) Diabetes mellitus: (4) Atrial fibrillation: (5) CAD (coronary artery disease): (6) Dyspnea: Plan 1. Elevated troponin, Dyspnea History of several MIs and CABG, A-fib on Xarelto ? Evaluated by cardiology 2. Type 2 diabetes with hyperglycemia ? Glucose checks ACHS ? Started sliding scale insulin 3. Mildly abnormal UA ? UA from outside hospital shows trace bacteria, hyaline casts, crystals ? Request results of urine culture from outside hospital - Hold on antibiotic therapy at this time 4. Atrial fibrillation ? Patient's EKG shows A-fib with RVR, ventricular rate 102 ? Patient admitted on telemetry, currently shows A-fib with ventricular rate of 85 ? 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 Gout: Continue home meds DVT prophylaxis: Home Xarelto, SCD CODE STATUS: Full code Documented By: Brissa Hoffman MD 06/22/22 1411 Signed By: <Electronically signed by Brissa Hoffman MD> 06/22/22 1414 [facility] Work Phone: Consult note 06-22-2022 Note Date & Type Note Facility 06-22-2022 Consult note Note Date/Time June 22, 2022 11:40am [facility] [address] [place] [address] Cardiology Consult Note Signed Patient: Mohan Espinoza MR#: [id number] : 1935 Acct:[id number] Age/Sex: 86 / F Adm Date: 3 Loc: Room: [address] [place] [address] Type: ADM IN Attending Dr: Brissa Hoffman MD Copies to: MD Shaikh Marion Vidal MD W Scott Sheldon, DO~ Cardiology HPI History of Present Illness Consult Date: 06/22/22 Reason for Consult: Elevated cardiac biomarkers, atrial fibrillation, ASHD HPI: Ms. Espinoza is a 86 year old female seen in cardiology consultation at the request of hospitalist after patient was transferred from [place] emergency room with elevated cardiac biomarkers. She presented with symptoms of UTI, bodyaches, lower extremity weakness, rigors; very similar to symptoms she has had before with urinary tract infections. She did not complaining of any shortness of breath or chest discomfort, she was complaining of lower abdominal discomfort as well. In [place] ER, her initial high-sensitivity troponins came back elevated at 100, serum creatinine 1.8, ECG consistent with controlled atrial fibrillation. There were initial attempts to transfer her to [facility] with her primary card doffer Dr. Randolph. They were unable to accept her immediately, there was some concern in the ER that she could not be admitted to [place] (? Unknown reason), therefore [facility] hospitalist was contacted and accepted patient in transfer. I have previously seen the patient for similar presentation with A-fib in 2020. Past medical history is noted for ASHD, remote CABG 2007, history of factor V Leiden deficiency, pulmonary embolism, morbid obesity, atrial fibrillation/flutter, diastolic congestive heart failure, chronic kidney disease, diabetes mellitus, chronic anticoagulation. Current serum creatinine is 1.92, BNP 507, troponins have trended down from 279 to 168 and 182. She has no complaints of angina, she does have resting dyspnea and pursed lip breathing at bedside after morning personal hygiene activities. Echocardiogram is currently pending, and patient remains on appropriate heart failure therapies and rate control therapy for A-fib Impression/recommendations: Probable type II non-ST elevation WA secondary to multiple comorbidities including obesity, chronic renal insufficiency, A-fib. There is no clinical evidence of angina/ACS. We will await echocardiogram for further evaluation of left ventricular systolicfunction, and make further recommendations based on these findings. I would notrecommend invasive assessment at this time due to progressive chronic renal insufficiency and the potential for DARYL with contrast. We will review medications make appropriate recommendations. As per 2020 consult, I would recommend at least an ischemic evaluation with Lexiscan stress imaging; this canbe completed with her primary card doffer Review of Systems Review of Systems All other systems reviewed & are negative unless noted below or in HPI Constitutional Constitutional: Reports as per HPI Cardiovascular Cardiovascular: Denies chest pain, Denies chest pain at rest, Denies chest pain with activity, Reports dyspnea, Denies pedal edema and Denies syncope Respiratory Respiratory: Reports as per HPI and Reports dyspnea Gastrointestinal Gastrointestinal: Reports as per HPI and Reports abdominal pain Genitourinary Genitourinary: Reports as per HPI Musculoskeletal Musculoskeletal: Reports as per HPI and Reports muscle weakness Neurologic Neurologic: Reports system reviewed and no additional complaints, except as documented PMFSH Vaccinated for COVID-19?: Yes Medical History (Updated 06/22/22 @ 05:17 by Marcela Cano DO, RES) Anemia Diabetes Factor V Leiden Gout [place] filter in place Hypertension Hypothyroidism Myocardial infarct Non-Hodgkin lymphoma in remission Patient recieved chemo therapy Pulmonary embolism Surgical History (Updated 06/22/22 @ 12:49 by Sharron Casey DO) History of appendectomy History of heart artery stent March 2018- 3 stents placed at [facility] History of open heart surgery x4 Family History Father Diabetes Mother Stroke Other HTN (hypertension) Social History Smoking Status: Former smoker Substance Use Type: None Meds Medications and Allergies Allergies albuterol Allergy (Verified 06/22/22 03:36) Unknown Reaction Home Medications allopurinol 300 mg tablet 300 mg PO DAILY 06/22/22 [History Confirmed 06/22/22] furosemide 40 mg tablet 40 mg PO DAILY 06/22/22 [History Confirmed 06/22/22] glipizide 10 mg tablet 10 mg PO BID 06/22/22 [History Confirmed 06/22/22] levothyroxine 200 mcg tablet 200 mcg PO DAILY 06/22/22 [History Confirmed 06/22/22] losartan 100 mg tablet 100 mg PO DAILY 06/22/22 [History Confirmed 06/22/22] metformin 500 mg tablet 500 mg PO BID 06/22/22 [History Confirmed 06/22/22] metoprolol succinate 100 mg tablet,extended release 24 hr 100 mg PO DAILY 06/22/22 [History Confirmed 06/22/22] rivaroxaban 20 mg tablet (Xarelto) 20 mg PO HS 06/22/22 [History Confirmed 06/22/22] Exam Physical Exam Vital Signs: Temp Pulse Resp BP Pulse Ox O2 Del Method O2 Flow Rate 98.2 F 78 24 93/61 L 97 Nasal Cannula 2 06/22/22 08:00 06/22/22 08:00 06/22/22 08:30 06/22/22 08:00 06/22/22 08:00 06/22/22 08:00 06/22/22 08:00 Const General: cooperative and no acute distress Nutritional Appearance: obese Orientation: alert, awake and oriented x3 HEENT Head: normal to inspection Neck Neck: normal visual inspection Chest Chest palpation & inspection: normal inspection of the chest Resp Effort & Inspection: able to speak in complete sentences, abnormal respiratory pattern and tachypneic Auscultation: clear to auscultation bilaterally Cardio Rate: regular rate Rhythm: abnormal rhythm Heart Sounds: S1 normal, S2 normal and no murmurs Pulses: radial pulses present GI Inspection: large pannus Palpation: soft Skin General: no rashes or lesions noted Neuro General: patient alert, patient awake and patient oriented x3 Cognition: normal cognition Speech: speech normal Extrem General: no clubbing, cyanosis or edema Results Labs 06/22/22 05:17 06/22/22 05:17 Lab results: Cardiac Enzymes 06/22/22 06/22/22 06/22/22 Range/Units 05:17 05:17 10:11 AST 16 (13-39) U/L Total Creatine Kinase 130 (30-223) U/L B-Natriuretic Peptide 507.0 H (5-100) pg/mL Lipids 06/22/22 Range/Units 05:17 Triglycerides 160 H (0-149) mg/dL Cholesterol 162 (140-200) mg/dL HDL Cholesterol 25 L (35-85) mg/dL Cholesterol/HDL Ratio 6.5 (<5.0) CBC 06/22/22 Range/Units 05:17 RBC 4.53 (3.60-5.00) X10E6/uL Hgb 13.9 (11.8-15.4) g/dL Hct 42.1 (34.0-46.4) % Plt Count 135 L (150-450) x10E3/uL Neut # (Auto) 8.3 H (1.8-7.7) x10E3/uL Lymph # (Auto) 1.4 (1.00-4.8) x10E3/uL [place] # (Auto) 0.9 H (0.0-0.8) x10E3/uL Eos # (Auto) 0.0 (0.0-0.45) x10E3/uL Baso # (Auto) 0.1 (0.0-0.2) x10E3/uL Comprehensive Metabolic Panel 06/22/22 Range/Units 05:17 Sodium 134 L (136-145) mmol/L Potassium 4.0 (3.5-5.1) mmol/L Chloride 102 (98-107) mmol/L Carbon Dioxide 24.8 (21.0-31.0) mmol/L BUN 39 H (7-25) mg/dL Creatinine 1.92 H (0.60-1.20) mg/dL Glucose 193 H (70-100) mg/dL Calcium 8.5 L (8.6-10.3) mg/dL AST 16 (13-39) U/L ALT 13 (7-52) U/L Alkaline Phosphatase 74 (34-104) U/L Total Protein 5.9 L (6.4-8.9) gm/dL Albumin 3.4 L (3.5-5.7) gm/dL Intake and Output 06/21/22 06/22/22 06/22/22 23:59 07:59 15:59 Intake Total 0 / 0 Balance 0 / 0 Intake: Oral 0 / 0 Other: # Unmeasured Voids 1 # Bowel Movements 0 Weight 136 kg Date of Last Bowel Movement 06/22/22 06/22/22 Patient Weight 06/22/22 23:59 Weight 136 kg EKG Interpretations EKG EKG shows: atrial fibrillation A&P - Cardiology (1) Atrial fibrillation: Code(s): I48.91 - Unspecified atrial fibrillation (2) Elevated troponin: Code(s): R77.8 - Other specified abnormalities of plasma proteins (3) HTN (hypertension): Code(s): I10 - Essential (primary) hypertension (4) CKD (chronic kidney disease), stage III: Code(s): N18.3 - Chronic kidney disease, stage 3 (moderate) (5) Diabetes mellitus: Code(s): E11.9 - Type 2 diabetes mellitus without complications (6) H/O pulmonary artery thrombosis: Code(s): Z86.711 - Personal history of pulmonary embolism (7) Factor V Leiden: Code(s): D68.51 - Activated protein C resistance Documented By: Sharron Casey DO 06/22/22 1136 Signed By: <Electronically signed by Sharron Casey DO> 06/22/22 1249 [facility] Work Phone: History and physical note 06-22-2022 Note Date & Type Note Facility 06-22-2022 History and physi taiwo note Note Date/Time June 22, 2022 4:22am [facility] [address] [place] [address] Hospitalist H&P Signed Patient: Mohan Espinoza MR#: [id number] : 1935 Acct:[id number] Age/Sex: 86 / F Adm Date: 3 Loc: 4P Room: 3T3175-9 Type: ADM IN Attending Dr: Toi Johnson MD Copies to: MD Marcela Garvey DO, RES Shaikh Marion MD~ HPI DATE OF EXAMINATION: 06/22/22 CHIEF COMPLAINT: NSTEMI HISTORY OF PRESENT ILLNESS: Patient is an 86-year-old female with a past medical history of CKD, PE, A-fib on anticoagulation, hypertension, hyperlipidemia, diabetes mellitus type 2 who presented to outside hospital because she felt like she had a UTI. Said that she got very chilled and weak and was able to get warm. States that she does not have any unilateral weakness, denies any burning with urination or abdominalpain. She has no chest pain or shortness of breath. Does state that she has a significant history of several MIs with CABG and has never had any chest pain with these. At the outside emergency room, chest x-ray negative for any acute cardiopulmonary pathology. EKG shows A-fib with RVR, ventricular rate 102, leftaxis deviation, lateral T wave inversion, no ST segment elevation. CT abdomen pelvis shows nonspecific bilateral perinephric stranding, no obstructive neuropathy, no other acute findings. Troponins were elevated to 103.3. UA shows small amount of bacteria, hyaline casts, crystals, negative leukocytes. Lipase is 82. Sodium 136, potassium 4.6. Glucose elevated to 277. Creatinine 1.8, BUN 35. Liver function within normal limits. WBC elevated to 16.2. Hemoglobin 15.6. At the time of my exam patient is resting comfortably in hospital bed. States that she is slightly short of breath requiring small amount of oxygen. Does have some mild abdominal pain and nausea. Denies any fevers, chills, headache, dizziness, chest pain, vomiting. Review of Systems Review of Systems All other systems reviewed & are negative unless noted below or in HPI PMFSH Vaccinated for COVID-19?: Yes Medical History (Updated 06/22/22 @ 05:17 by Marcela Cano DO, RES) Anemia Diabetes Factor V Leiden Gout Lee Ann filter in place Hypertension Hypothyroidism Myocardial infarct Non-Hodgkin lymphoma in remission Patient recieved chemo therapy Pulmonary embolism Surgical History History of appendectomy History of heart artery stent March 2018- 3 stents placed at [facility] History of open heart surgery x4 Family History Father Diabetes Mother Stroke Other HTN (hypertension) Social History Smoking Status: Former smoker Substance Use Type: None Meds Medications and Allergies Allergies albuterol Allergy (Verified 06/22/22 03:36) Unknown Reaction Home Medications allopurinol 300 mg tablet 300 mg PO DAILY 06/22/22 [History Confirmed 06/22/22] furosemide 40 mg tablet 40 mg PO DAILY 06/22/22 [History Confirmed 06/22/22] glipizide 10 mg tablet 10 mg PO BID 06/22/22 [History Confirmed 06/22/22] levothyroxine 200 mcg tablet 200 mcg PO DAILY 06/22/22 [History Confirmed 06/22/22] losartan 100 mg tablet 100 mg PO DAILY 06/22/22 [History Confirmed 06/22/22] metformin 500 mg tablet 500 mg PO BID 06/22/22 [History Confirmed 06/22/22] metoprolol succinate 100 mg tablet,extended release 24 hr 100 mg PO DAILY 06/22/22 [History Confirmed 06/22/22] rivaroxaban 20 mg tablet (Xarelto) 20 mg PO HS 06/22/22 [History Confirmed 06/22/22] Exam Physical Exam Vital Signs: Temp Pulse Resp BP Pulse Ox O2 Del Method O2 Flow Rate 97.6 F 91 H 25 H 103/73 96 Nasal Cannula 2 06/22/22 03:37 06/22/22 03:37 06/22/22 03:37 06/22/22 03:37 06/22/22 03:37 06/22/22 03:39 06/22/22 03:39 Const General: cooperative Nutritional Appearance: obese Orientation: alert, awake and oriented x3 HEENT Head: normocephalic and atraumatic Eyes General: appearance normal, both eyes and all related structures Neck Neck: normal visual inspection Chest Chest palpation & inspection: normal inspection of the chest Resp Effort & Inspection: normal respiratory effort and able to speak in complete sentences Auscultation: clear to auscultation bilaterally, no rales, no rhonchi and no wheezes Cardio Rate: regular rate Rhythm: abnormal rhythm GI Palpation: soft and tender Auscultation: normal bowel sounds Skin General: no rashes or lesions noted Neuro General: patient alert, patient awake, patient oriented x3 and no focal motor deficits Extrem General: normal to inspection and no edema A&P - Hospitalist Assessment/Plan (1) Elevated troponin: (2) HTN (hypertension): (3) Diabetes mellitus: (4) Atrial fibrillation: (5) CAD (coronary artery disease): (6) Dyspnea: Plan 1. Elevated troponin, Dyspnea History of several MIs and CABG, A-fib on Xarelto ? Patient O2 sat is 96 on 2 L nasal cannula, not on home ? EKG shows A-fib with RVR, left axis deviation, lateral T wave inversions ? Chest x-ray negative for acute cardiopulmonary pathology ? Troponins elevated to 103, BNP 507 ? Patient admitted to inpatient service with telemetry ? Continue to trend troponins, EKG ? Last echo and 04/10 showed EF 60 to 65%, mild diastolic dysfunction, will repeat echo ? Repeat BMP, CBC, CMP, lactic acid, lipid panel ? Consult to cardiology 2. Type 2 diabetes with hyperglycemia ? Glucose checks ACHS ? We will hold metformin for possible heart cath ? Start sliding scale insulin 3. Mildly abnormal UA ? UA from outside hospital shows trace bacteria, hyaline casts, crystals ? Request results of urine culture from outside hospital - Hold on antibiotic therapy at this time 4. Atrial fibrillation ? Patient's EKG shows A-fib with RVR, ventricular rate 102 ? Patient admitted on telemetry, currently shows A-fib with ventricular rate of 85 ? 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 I reviewed her history and performed sarabia elements of exam and formulated the plan of care and confirmed the resident's note above. Patient transferred here to [facility] due to elevated troponin and her significant cardiac history. She has no cardiorespiratory complaints at this time, but notes that she never has cardiorespiratory complaints when her cardiac events occur. We will have cardiology assess and determine if any further coronary investigation needs to occur while patient is admitted here. Obtain echocardiogram for further evaluation of cardiac function. Documented By: Toi Johnson MD 3 [id number] Signed By: <Electronically signed by Toi Johnson MD> 06/22/22 0715 <Electronically signed by DO FLAQUITA Cano> 06/22/22 0614 [facility] Work Phone: Evaluation note Note Date & Type Note Facility Evaluation note Diagnosis Onset Date Atrial fibrillation acute CAD (coronary artery disease) acute Chronic anticoagulation acut e CKD (chronic kidney disease), stage III acute Diabetes mellitus acute Dyspnea acute Elevated troponin acute Factor V Leiden acute H/O pulmonary artery thrombosis acute History of heart artery stent acute History of open heart surgery acute HTN (hypertension) acute [facility] Work Phone: Summary Purpose Family History No Family History Records Found Relationship Condition Age at Onset Recorded Date/T bernardo Not Specified Hypertension Unknown father Diabetes mellitus Unknown Not Specified Cerebrovascular accident (CVA) Unknown Unknown Family Member Name Dates Details Family history of cerebrovas cular accident (CVA): Mother, Brother(V17.1, Z82.3) Status:Active Family history of diabetes m ellitus: Father(V18.0, Z83.3) Status:Active Acute coronary syndrome: Bro ther Status:Active Heart problem: Brother Status:Active COVID: Brother Status:Active Family history of lung disea se: Sister(V19.8, Z83.6) Status:Active Unknown Family Member Name Dates Details Family history of cerebrovas cular accident (CVA): Mother, Brother(V17.1, Z82.3) Status:Active Family history of diabetes m ellitus: Father(V18.0, Z83.3) Status:Active Acute coronary syndrome: Bro ther Status:Active Heart problem: Brother Status:Active COVID: Brother Status:Active Family history of lung disea se: Sister(V19.8, Z83.6) Status:Active Advance Directives No Advanced Directives Records Found Advance Directive Response Recorded Date/ Time Advance Directives No April 13, 2019 7:25pm Hospital Course Note MR#: [id number] [facility] Pt. Name: Mohan Espinoza Admitted: 04/06/2018 Discharged: 04/10/2018 Date of : 1935 Physician: Dave Macdonald MD DISCHARGE SUMMARY PRIMARY DIAGNOSES: 1. Sepsis. 2. Non ST- elevation myocardial infarction. 3. Acute kidney injury. 4. History of coronary artery disease status post CABG in 2007. 5. History of non-Hodgkin's lymphoma/atypical hairy cell leukemia. 6. History of multiple PE. 7. History of factor V Leiden deficiency. 8. History of paroxysmal atrial fibrillation, on digoxin and warfarin. 9. Hypertension. 10. Obstructive sleep apnea. 11. Obesity. HISTORY OF PRESENT ILLNESS AND HOSPITALIZATION COURSE: The patient is an 82-year-old female with extensive past medical history as above, the patient was seen in [facility] after she was feeling weak for 1 day. In [facility], she was found to have a temperature of 101 and her initial workup revealed elevated white count of 17,000 and positive troponin at 0.29 (more content not included)... Chief Complaint and Reason for Visit Chief Complaint non stemi Reason for Visit Atrial fibrillation CAD (coronary artery disease) Chronic anticoagulation CKD (chronic kidney disease), stage III Diabetes mellitus Dyspnea Elevated troponin Factor V Leiden H/O pulmonary artery thrombosis History of heart artery stent History of open heart surgery HTN (hypertension) Chief Complaint non stemi Acute kidney injury Reason for Visit Atrial fibrillation CAD (coronary artery disease) Chronic anticoagulation CKD (chronic kidney disease), stage III Diabetes mellitus Dyspnea Elevated troponin Factor V Leiden H/O pulmonary artery thrombosis History of heart artery stent History of open heart surgery HTN (hypertension) Chief Complaint * [facility] D/C 06/23/22. * 86-year-old female returns for follow-up following recent hospitalization, and transfer from outside hospital with elevated biomarkers, symptoms of UTI, abdominal discomfort, controlled atrial fibrillation and acute on chronic renal failure. * Her cardiology consultation is reviewed in detail. In brief she has a history of remote CABG, previously has been seen by Dr. Randolph for her cardiology care. She was seen previously by myself withsimilar presentation and atrial fibrillation in 2019, she remains in atrial fibrillation currently and since that time it appears. * She has a history of factor V Leiden deficiency, remote pulmonary embolism, morbid obesity, A-fib/flutter, diastolic congestive heart failure, chronic kidney disease, diabetes, ambulatory disability and chronic anticoagulation. * Her initial troponins were 279 and trended down to 182, BNP was elevated at 507, chest x-ray was clear, ECG revealed sinus rhythm with no ST changes and she had no anginal complaints * Echocardiogram revealed mildly reduced LV function at 45% which is a change from her 2020 echo (normal at that time) * Her coronary anatomy and graft anatomy is inclusive for SAMSON to LAD, GRICELDA to the diagonal 2, SVG tothe OM 2, SVG to the PDA branch performed in July 2007 * Recommendations, proceed with Lexiscan stress imaging, chemistry and BNP profiles, follow-up for report thereafterwards Additional Source Comments INFORMATION SOURCE (unrecogn ized section and content) DATE CREATED AUTHOR 11/06/2017 [facility] DATE CREATED AUTHOR AUTHOR'S ORGANIZ ATION 04/04/2019 [facility] DATE CREATED AUTHOR AUTHOR'S ORGANIZ ATION 04/18/2020 [facility] DATE CREATED AUTHOR AUTHOR'S ORGANIZ ATION 06/24/2022 [facility] DATE CREATED AUTHOR AUTHOR'S ORGANIZ ATION 07/03/2022 [facility] DATE CREATED AUTHOR AUTHOR'S ORGANIZ ATION 09/26/2022 [facility] DATE CREATED AUTHOR AUTHOR'S ORGANIZ ATION 10/01/2022 [facility] DATE CREATED AUTHOR AUTHOR'S ORGANIZ ATION 10/01/2022 [employer] DATE CREATED AUTHOR AUTHOR'S ORGANIZ ATION 04/12/2023 [facility] EPIC Care Teams (unrecognized sec tion and content) Team Status: Inactive Member Role Status Dates Shaikh Marion MD Attending Provider Active Team Status: Inactive Member Role Status Dates Shaikh Marion MD Primary Care Provider Active Toi Johnson MD Admit Provider Active Brissa Hoffman MD Attending Provider Active Team Status: Active Member Role Status Dates Shaikh Marion MD Primary Care Provider Active FOR RECORDS PERTAINING TO PATIENTS WHO ARE OR HAVE BEEN ENROLLED IN A CHEMICAL DEPENDENCY/SUBSTANCEABUSE PROGRAM, SOME INFORMATION MAY BE OMITTED. This clinical summary was aggregated from multiple sources. Caution should be exercised in using it in the provision of clinical care. This summary normalizes information from multiple sources, and as a consequence, information in this document may materially change the coding, format and clinical context of patient data. In addition, data may be omitted in some cases. CLINICAL DECISIONS SHOULD BE BASED ON THE PRIMARY CLINICAL RECORDS. [facility] [employer] [facility]. provides no warranty or guarantee of the accuracy or completeness of information in this document.
[2023-10-05 08:31] LABS: Alanine Aminotransferase 17 U/L (14-59); Anion Gap 14.5; Aspartate Amino Transferase 20 U/L (15-37); BUN Creatinine Ratio 32.8; Calcium 8.8 mg/dL (8.5-10.1); Carbon Dioxide 25.3 mmol/L (21.0-32.0); Chloride 105 mmol/L (98-107); Chol HDL Ratio 5.4; Cholesterol 189 mg/dL (<=200); Estimated GFR (African America 48 (>=60); Estimated GFR (Non-African Ame 40 (>=60); Glucose 154 mg/dL (74-106); HDL Cholesterol 35 mg/dL (40-60); Potassium 4.8 mmol/L (3.5-5.1); Sodium 140 mmol/L (136-145); Triglycerides 171 mg/dL (<=150); VLDL CHOLESTEROL 34.2 mg/dL
== END 2023-10-05 07:14 | disposition home or self-care (01) ==
LOC: LAB 07:15
PROVIDERS: PCP Internal Medicine; Visit Provider Internal Medicine Cardiovascular Disease
DX: I48.91 Unspecified atrial fibrillation (principal); I25.10 Atherosclerotic heart disease of native coronary artery without angina pectoris; E11.9 Type 2 diabetes mellitus without complications; I25.5 Ischemic cardiomyopathy
CPT/HCPCS: 36415; 80048; 80061; 84450; 84460

== ENCOUNTER 2023-12-24 20:33 | Emergency (ER) | payer MEDICARE, OTHER, SELFPAY ==
[2023-12-24] VITALS (25 sets, daily range): BP systolic 128–157; BP diastolic 86–97; PULSE 73–124; TEMP 36.2; O2SAT 89–98; BMI 42.1
--- OUTSIDE RECORDS SUMMARY | 2023-12-24 20:41 | XMS_ITS | CCD ---
Author Organization [facility] Care Team Providers Care Belt Fixer Name Role Phone Darrian Benton Unavailable Unavailable GLORIA SARMED Admitting Unavailable GLORIASUNILMED Attending Unavailable ROMARIO BAKER Primary Care Unavailable ER, JOVANNI Referring Unavailable [place] Procedure Practitioner Unavailab le UNKNOWN, PROVIDER Surgeon Unavailable MD Quan Schultz Primary Care Provider [phone] MD Toi Johnson Admit Provider MD Brissa [...] Consulting Unavailable MD Quan Schultz Attending Provider [place], Good Unavailable Unavailable Unavailable NO FAMILY, [...] Kimble Consulting Unavailable Yu Barriga Consulting Unavailable SalvadorAzalia petersenMoncho Najeeb Consulting Unavailab Brian Mcknight Consulting Unavailable Beverly Persaud Consulting Unavailable Janice Harden Consulting Unavailable JACINTO, JOSELUIS Attending Unavailable JACINTO, JOSELUIS Attending Unavailable Jacinto, Dr. Joseluis Warren Attending Unava ilable Jacinto, Dr. Joseluis Warren Attending Unava ilable Jacinto, Dr. Joseluis Warren Referring Unava iljakob aCsey, Dr. Joseluis Warren Attending Unava ilable Marion, Dr. Good Referring Unavailable Jacinto, Dr. Joseluis Warren Attending Unava ilable JACINTO, JOSELUIS Lara Attending Unavailable SHAIKH SCHULTZ Primary Care Unavailable SHAIKH SCHULTZ Attending Unavailable EMILIE FAIR Attending Unavailabl e Allergies Allergy Classification Reported Allergen(s) Allergy Type Date of Onset Reaction(s) Facility (2 sources) Albuterol Drug Allergy 9 [facility] Repository (1 source) Albuterol Drug Allergy 3 [facility] Repository (1 source) Hmg-Coa Reductase Inhibitors (Statins); 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: [[id number] REDUCTASE INHIBITORS] Propensity to adverse reactions to drug (disorder) 4 [facility] 3 Repository Medications Current Medications Medication Drug Class(es) [...] Atorvastatin Active 40 MG PO Every evening June 23, 2022 12:00am furosemide 40 mg [...] 2022 12:00am take 1 capsule by mo [facility] once daily in the morning Levothyroxine [...] 22, 2022 3:38am take 3 tablets by [facility] once daily Metoprolol Succinate ER 50 MG Oral Tablet Extended Release 24 Hour TAKE 3 TABLET Daily Quantity: 270 Refills: 0 Ordered: 15-Sep-2022 Joseluis Casey DO Active rivaroxaban 15 mg oral tablet (6 sources) Factor Xa Inhibitor Start: 06-23-2022 take 1 tablet by mouth once daily Rivaroxaban (Xarelto) 15 mg Tablet Active 15 MG PO DAILY@17 30 June 23, 2022 12:00am Start: 06-22-2022 [...] 22, 2022 3:38am Per Dr. Baker in [facility] instructions 5mg everyday besides Wednesday and Wednesday which then she takes 7.5mg Problems Active Problems Problem Classification Problem Date Documented Da te Episodic/Chronic Acute and unspecified renal failure (4 sources) Injury of kidney; 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: [Acute kidney failure, unspecified] Onset: 06-22-2022 06-23-2022 Episodic Acute myocardial infarction (1 source) Non-ST elevation (NSTEMI) myocardial infarction; 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: [NON-ST ELEVATION MYOCARDIAL INFARCT] Onset: 06-23-2022 Chronic Aortic; peripheral; and visceral artery aneurysms (2 sources) Ascending aorta dilatation; 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: [Thoracic aortic ectasia] 04-20-2019 Chronic Cardiac dysrhythmias (13 sources) Atrial fibrillation; 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: [Unspecified atrial fibrillation] Onset: 06-22-2022 06-22-2022 Chronic Chronic kidney disease (8 sources) Chronic kidney disease stage 3; 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: [Stage 3 chronic kidney disease] Onset: 06-02-2023 04-20-2019 Chronic Coagulation and hemorrhagic disorders (7 sources) Factor V Leiden mutation; 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: [Activated protein C resistance] Onset: 06-22-2022 04-20-2019 Chronic Congestive heart failure; nonhypertensive (4 sources) Symptomatic congestive heart failure; 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: [Congestive heart failure, unspecified] Onset: 07-23-2022 Chronic Coronary atherosclerosis and other heart disease (18 sources) Coronary arteriosclerosis; 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: [Atherosclerotic heart disease of [place] coronary artery without angina pectoris] Onset: 06-22-2022 04-13-2019 Chronic Coronary atherosclerosis and other heart disease (8 sources) Presence of coronary angioplasty implant and [...] Onset: 07-03-2021 Chronic Diabetes mellitus without complication (13 sources) Diabetes mellitus; 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: [Type 2 diabetes [...] sources) Long-term current use of anticoagulant; 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: [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] 04-20-2019 Episodic Other aftercare (4 sources) 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; 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: [Long-term (current) use of anticoagulants] Onset: 06-22-2022 06-23-2022 Episodic Other aftercare (1 source) [facility] (current) use of oral hypoglycemic drugs; 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: [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 DX] Onset: 06-23-2022 Episodic Other aftercare (1 source) Other usp (current) drug therapy; 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: [OTH HALF-WAY CURRENT DRUG THERAPY] Onset: 06-23-2022 Episodic Other [...] EMBO] Onset: 06-23-2022 Episodic Pulmonary heart disease (8 sources) History of arterial thrombosis; 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: [Personal history of pulmonary embolism] Onset: 06-22-2022 04-20-2019 Episodic Residual codes; unclassified (2 sources) H/O cardiac surgery; 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: [Other specified postprocedural states] 06-22-2022 Episodic Residual codes; unclassified (3 sources) Other specified postprocedural states; 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: [Other postprocedural status] Onset: 06-22-2022 06-23-2022 Episodic Residual codes; unclassified (2 sources) Other specified health status; 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: [Other specified health status] Onset: 10-19-2023 Episodic Thyroid disorders (7 sources) Hypothyroidism; 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: [...] Aminotransferase, Serum; Status:Active - Retrospective Authorization; Requested for:[id number]; AST; Status:Active - Retrospective Authorization; Requested for:[id number]; Basic Metabolic Panel; Status:Active - Retrospective Authorization; Requested for:[id number]; Lipid Panel; Status:Active - Retrospective Authorization; Requested for:[id number]; SocHx: Never a smoker Tobacco Use Screening; Status:Complete; Done: [id number] Patient Instructions Please bring all medicines, vitamins, [...] try to obtain most recent labs at [facility] in last two weeks if no lipid [...] By: Yoan Dobbs MD (Gastroenterology) History of [place] filter placement Past Medical History Problems History [...] negative for complaint. Vitals Vital Signs Recorded: [id number] 09:09AM Heart Rate56 Buctccpf975, LUE, Sitting Nowabnxxq92, LUE, Sitting Height5 ft 8 in Tobacco [...] (more content not included)... Normal [facility] CARDIAC STRESS/REST INJE CTIONon 07-23-2022 [facility] CARDIAC STRESS/REST INJECTION Patient Name: MOHAN ESPINOZA STUDY: MYOCARDIAL PERFUSION STRESS TEST WITH LEXISCAN Performing facility: [facility], [address] [place] [address], [address], [place] [id number] [facility] Provider: Leanna Casey DO, FACC PCP: Dr. Ruben Schultz Supervising provider: Yu Barriga MD, FACC INDICATION: A-fib ASHD CHF HISTORY: Gender: F; Age: 87 y/o ; Height: 0 cm; Weight: 967.1841354 kg. CAD; Diabetes; Previous [place]; Arrhythmias; Denies smoking. CABG on 2007. COMPARISON: No comparison. ACCESSION NUMBER(S): [id number]; [id number]; [id number] ORDERING CLINICIAN: JOSELUIS CASEY TECHNIQUE: TWO DAY [...] Electronically signed by: STEPHANIE HANCOCK MD Normal [facility] Height or Weight NOT Doneon 07-01-2022 Adult depression screening assessment Yes [facility] [address] DO Work Phone: Adult depression screening assessment Moderately Severe (15-19) [facility] [address] DO Work Phone: Fall risk assessment a) No falls within the last year [facility] DO Work Phone: Tobacco use status [facility] b) No M Located Within [facility] DO Work Phone: Height or Weight NOT Done 3-Nearly every day [facility] DO Work Phone: Height or Weight NOT Done 1-Several days [facility] DO Work Phone: Height or Weight NOT Done 0-Not at all [facility] DO Work Phone: Height or Weight NOT Done Very Difficult [facility] DO Work Phone: Office Visit [...] Status:Hold For - Scheduling,Retrospect wilson Authorization; Requested for:01Jul2022; Radiologist to Determine Optimal Study : Y What are the patient's signs and symptoms? : cad afib Afib, ASHD (arteriosclerotic heart disease), CHF (congestive heart failure), NYHA class III, Ischemic cardiomyopathy Basic Metabolic Panel; Status:Active - Retrospective Authorization; Requested for:01Jul2022; Brain Natriuretic Peptide BNP; Status:Active - Retrospective Authorization; Requested for:01Jul2022; Health Maintenance Depression Follow-up Visit Outpatient Follow-up Status: Complete - Retrospective Authorization Done: 01Jul2022 SocHx: Never a smoker Tobacco Use Screening; Status:Complete; Done: 01Jul2022 Tobacco Use Screening; Status:Complete; Done: 01Jul2022 Patient Instructions Please bring all medicines, vitamins, and herbal supplements with you when you come to the office. Prescriptions will not be filled unless you are compliant with your follow up appointments or have a follow up appointment scheduled as per instruction of your physician. Refills should be requested at the time of your visit. Follow up in [12 ] weeks Chief Complaint [facility] 06/23/22. 86-year-old female returns for follow-up [...] Dilia RAMIREZ, Yoan Li (Gastroenterology) History of [place] filter placement Past Medical History Problems History [...] Recorded: 01Jul2022 09:34AM Heart Rate68, L Radial Fohatwvt895, RUE, Sitting Nhcqwqhlz58, RUE, Sitting Height5 ft 8 in Height or Weight NOT Done (more content not included)... Normal [employer] Basic Metabolic Panelon 06-20 GFR/1.73 sq M.predicted MDRD (S/P/Bld) [Vol rate/Area] 30.239 mL/min/{1.73_m2} Normal [facility] Comment on above: Performed By: #### C K, HS TROP #### [facility] [address] Calcium [Mass/volume] in Ser um or PlasmaOrdered By: Brissa Hoffman on 06-29-2022 Calcium [Mass/Vol] 8.8 mg/dL Normal 8.6-10.3 [facility] Comment on above: Result Comment: PERF ORMED BY: [facility] [address] [facility] [place] [place] [address] PATHOLOGIST MED SURG RN CINDY BRADSHAW M.D. Performed By: #### C K, HS TROP #### [facility] [address] Carbon dioxide, total [Moles /volume] in Serum or PlasmaOrdered By: Brissa Hoffman on 06-29-2022 CO2 [Moles/Vol] 32.3 mmol/L High 21.0-31.0 [facility] Comment on above: Performed By: #### C K, HS TROP #### [facility] [address] [place] [address] [place] Chloride [Moles/volume] in S octaviano or PlasmaOrdered By: Brissa Hoffman on 06-29-2022 Chloride [Moles/Vol] 100 mmol/L Normal 98-107 [facility] Comment on above: Performed By: #### C K, HS TROP #### [facility] [address] Creatinine [Mass/volume] in Serum or PlasmaOrdered By: Brissa Hoffman on 06-29-2022 Creatinine [Mass/Vol] 1.66 mg/dL High 0.60-1.20 [facility] Comment on above: Performed By: #### C K, HS TROP #### [facility] [address] Glucose [Mass/volume] in Ser um or PlasmaOrdered By: Brissa Hoffman on 06-29-2022 Glucose [Mass/Vol] 245 mg/dL High 70-100 [facility] Comment on above: ADA recommended refe rence rangeRandom Glucose Reference Range is dependent on time and content of last meal. Glucose of more than 200 mg/dL in a nonstressed, ambulatory subject supports the diagnosis of Diabetes Mellitus. Result Comment: [place] [facility] Glucose Reference Range is dependent on time and content of last meal. Glucose of more than 200 mg/dL in a nonstressed, ambulatory subject supports the diagnosis of Diabetes Mellitus. ADA recommended reference range Performed By: #### C K, HS TROP #### [facility] [address] No Panel InformationOrdered By: Brissa Hoffman on 06-29-2022 Estimated GFR (CKD-EPI) 30.239 mL/Min [facility] Creatinine Clearance (Chem N/A [facility] Potassium [Moles/volume] in Serum or PlasmaOrdered By: Brissa Hoffman on 06-29-2022 Potassium [Moles/Vol] 4.6 mmol/L Normal 3.5-5.1 [facility] Comment on above: Performed By: #### C K, HS TROP #### [facility] [address] Serum or plasma anion gap de terminationOrdered By: Brissa Mele on 06-29-2022 Anion gap [Moles/Vol] 9.3 mmol/L Normal 6.0-15.0 [facility] Comment on above: Performed By: #### C K, HS TROP #### [facility] [address] [place] [address] [place] Sodium [Moles/volume] in Ser um or PlasmaOrdered By: Brissa Mele on 06-29-2022 Sodium [Moles/Vol] 137 mmol/L Normal 136-145 [facility] Comment on above: Performed By: #### C K, HS TROP #### [address] Urea nitrogen [Mass/volume] in Serum or PlasmaOrdered By: Brissa Hoffman on 06-29-2022 Urea nitrogen [Mass/Vol] 31 mg/dL High 7-25 [facility] Comment on above: Performed By: #### C K, HS TROP #### [address] Basic Metabolic Panelon Anion gap [Moles/Vol] 10.9 mmol/L Normal 6.0-15.0 [facility] Comment on above: Performed By: #### G AURELIA #### Point of Care testing , Calcium [Mass/Vol] 8.7 mg/dL Normal 8.6-10.3 [facility] Comment on above: Performed By: #### G AURELIA #### Point of Care testing , Chloride [Moles/Vol] 102 mmol/L Normal 98-107 [facility] Comment on above: Performed By: #### G LULS #### Point of Care testing , CO2 [Moles/Vol] 26.3 mmol/L Normal 21.0-31.0 [facility] Comment on above: Performed By: #### G LUJIMMIE #### Point of Care testing , Creatinine [Mass/Vol] 1.44 mg/dL High 0.60-1.20 [facility] Comment on above: Performed By: #### G LULS #### Point of Care testing , Creatinine Clr Calc Pharmacy 42.65 [facility] Comment on above: Result Comment: PERF ORMED BY: [facility] [place] [address] PATHOLOGIST MED SURG RN CINDY BRADSHAW M.D. Performed By: #### G LULS #### Point of Care testing , GFR/1.73 sq M.predicted MDRD (S/P/Bld) [Vol rate/Area] 35.865 mL/min/{1.73_m2} [facility] Comment on above: Performed By: #### G LULS #### Point of Care testing , Glucose [Mass/Vol] 255 mg/dL High 70-100 [facility] Comment on above: Result Comment: [place] Glucose Reference Range is dependent on time and content of last meal. Glucose of more than 200 mg/dL in a nonstressed, ambulatory subject supports the diagnosis of Diabetes Mellitus. ADA recommended reference range Performed By: #### G LULS #### Point of Care testing , Potassium [Moles/Vol] 4.2 mmol/L Normal 3.5-5.1 [facility] Comment on above: Performed By: #### G LULS #### Point of Care testing , Sodium [Moles/Vol] 135 mmol/L Low 136-145 [facility] Comment on above: Performed By: #### G LULS #### Point of Care testing , Urea nitrogen [Mass/Vol] 37 mg/dL High 7-25 [facility] Comment on above: Performed By: #### G LULS #### Point of Care testing , Basophils Auto (Bld) [#/Vol] Ordered By: Brissa Hoffman on 06-23-2022 Basophils (Bld) [#/Vol] 0.1 10*3/uL 0.0-0.2 [facility] Basophils/100 WBC Auto (Bld) Ordered By: Brissa Hoffman on 06-23-2022 Basophils/100 WBC (Bld) 1.0 % . [facility] Calcium [Mass/volume] in Ser um or PlasmaOrdered By: Sharron Casey on 06-23-2022 Calcium [Mass/Vol] 8.7 mg/dL 8.6-10.3 [facility] Carbon dioxide, total [Moles /volume] in Serum or PlasmaOrdered By: Sharron Casey on 06-23-2022 CO2 [Moles/Vol] 26.3 mmol/L 21.0-31.0 [facility] Chloride [Moles/volume] in S octaviano or PlasmaOrdered By: Sharron Casey on 06-23-2022 Chloride [Moles/Vol] 102 mmol/L 98-107 [facility] Complete Blood Count Auto Di ffon 06-23-2022 Basophils (Bld) [#/Vol] 0.1 10*3/uL Normal 0.0-0.2 [facility] Comment on above: Result Comment: PERF ORMED BY: [facility] [address] [place] [address] PATHOLOGIST MED SURG RN CINDY BRADSHAW M.D. Performed By: #### G LULS #### Point of Care testing , Basophils/100 WBC (Bld) 1.0 % Normal . [facility] Comment on above: Performed By: #### G LULS #### Point of Care testing , Eosinophils (Bld) [#/Vol] 0.1 10*3/uL Normal 0.0-0.45 [facility] Comment on above: Performed By: #### G LULS #### Point of Care testing , Eosinophils/100 WBC (Bld) 1.8 % Normal . [facility] Comment on above: Performed By: #### G LULS #### Point of Care testing , Erythrocyte distribution width (RBC) [Ratio] 14.7 % Normal 11.9-15.3 [facility] Comment on above: Performed By: #### G LULS #### Point of Care testing , Hematocrit (Bld) [Volume fraction] 41.2 % Normal 34.0-46.4 [facility] Comment on above: Performed By: #### G LULS #### Point of Care testing , Hemoglobin (Bld) [Mass/Vol] 13.6 g/dL Normal 11.8-15.4 [facility] Comment on above: Performed By: #### G STEVELS #### Point of Care testing , Lymphocytes (Bld) [#/Vol] 1.6 10*3/uL Normal 1.00-4.8 [facility] Comment on above: Performed By: #### G LULS #### Point of Care testing , Lymphocytes/100 WBC (Bld) 24.6 % Normal . [facility] Comment on above: Performed By: #### G LULS #### Point of Care testing , MCH (RBC) [Entitic mass] 30.9 pg Normal 24.7-34.3 [facility] Comment on above: Performed By: #### G STEVELS #### Point of Care testing , MCV (RBC) [Entitic vol] 93.5 fL Normal 80-100 [facility] Comment on above: Performed By: #### G STEVELS #### Point of Care testing , Mean Corpuscular HGB Conc 33.0 g/dL Normal 32.0-35.0 [facility] Comment on above: Performed By: #### G STEVELS #### Point of Care testing , Monocytes (Bld) [#/Vol] 0.8 10*3/uL Normal 0.0-0.8 [facility] Comment on above: Performed By: #### G STEVELS #### Point of Care testing , Monocytes/100 WBC (Bld) 12.9 % Normal . [facility] Comment on above: Performed By: #### G STEVELS #### Point of Care testing , Neutrophils (Bld) [#/Vol] 3.8 10*3/uL Normal 1.8-7.7 [facility] Comment on above: Performed By: #### G LULS #### Point of Care testing , Neutrophils/100 WBC (Bld) 59.7 % Normal . [facility] Comment on above: Performed By: #### G LULS #### Point of Care testing , NRBC% 0.0 /100{WBC} Normal 0-0.5 [facility] Comment on above: Performed By: #### Darnell MOSES #### Point of Care testing , Platelet mean volume (Bld) [Entitic vol] 10.2 fL Normal 6.3-10.7 [facility] Comment on above: Performed By: #### G AURELIA #### Point of Care testing , Platelets (Bld) [#/Vol] 147 10*3/uL Low 150-450 [facility] Comment on above: Performed By: #### G AURELIA #### Point of Care testing , RBC (Bld) [#/Vol] 4.41 10*6/uL Normal 3.60-5.00 [facility] Comment on above: Performed By: #### G AURELIA #### Point of Care testing , WBC (Bld) [#/Vol] 6.4 10*3/uL Normal 3.8-11.6 [facility] Comment on above: Performed By: #### Darnell MOSES #### Point of Care testing , Creatine Kinaseon 06-23-2022 CK [Catalytic activity/Vol] 74 U/L Normal 30-223 [facility] Comment on above: Performed By: #### Olimpia Campos HS TROP #### [facility] [address] [place] [address] CK [Catalytic activity/Vol] 88 U/L Normal [facility] Comment on above: Performed By: #### Olimpia Campos, HS TROP #### [facility] [address] Creatine kinase [Enzymatic a ctivity/volume] in Serum or PlasmaOrdered By: Sharron Casey on 06-23-2022 CK [Catalytic activity/Vol] 74 U/L [facility] Creatinine [Mass/volume] in Serum or PlasmaOrdered By: Sharron Casey on 06-23-2022 Creatinine [Mass/Vol] 1.44 mg/dL 0.60-1.20 [facility] Eosinophils Auto (Bld) [#/Vo l]Ordered By: Brissa Hoffman on 06-23-2022 Eosinophils (Bld) [#/Vol] 0.1 10*3/uL 0.0-0.45 [facility] Eosinophils/100 WBC Auto (Bl d)Ordered By: Brissa Hoffman on 06-23-2022 Eosinophils/100 WBC (Bld) 1.8 % . [facility] Erythrocyte distribution wid th Auto (RBC) [Ratio]Ordered By: Brissa Hoffman on 06-23-2022 Erythrocyte distribution width (RBC) [Ratio] 14.7 % 11.9-15.3 [facility] Glucose Glucometer (BldC) [M ass/Vol]Ordered By: Brissa Hoffman on 06-23-2022 Glucose [Mass/Vol] 230 mg/dL [facility] Comment on above: Random Glucose Refer ence Range is dependent on time and content of last meal. Glucose of more than 200 mg/dL in a nonstressed, ambulatory subject supports the diagnosis of Diabetes Mellitus. Glucose Poct Glucometerson 0 06-23-2022 Glucose [Mass/Vol] 230 mg/dL Normal [facility] Comment on above: Result Comment: [facility] Glucose Reference Range is dependent on time and content of last meal. Glucose of more than 200 mg/dL in a nonstressed, ambulatory subject supports the diagnosis of Diabetes Mellitus. PERFORMED BY: [place] [address] PATHOLOGIST MED SURG RN CINDY BRADSHAW M.D. Performed By: #### G LULS #### Point of Care testing , Glucose [Mass/Vol] 166 mg/dL Normal [facility] Comment on above: Result Comment: [facility] Glucose Reference Range is dependent on time and content of last meal. Glucose of more than 200 mg/dL in a nonstressed, ambulatory subject supports the diagnosis of Diabetes Mellitus. PERFORMED BY: [place] [address] PATHOLOGIST MED SURG RN CINDY BRADSHAW M.D. Performed By: #### C K, HS TROP #### [address] Glucose [Mass/volume] in Ser um or PlasmaOrdered By: Sharron Casey on 06-23-2022 Glucose [Mass/Vol] 255 mg/dL 70-100 [facility] Comment on above: ADA recommended refe rence rangeRandom Glucose Reference Range is dependent on time and content of last meal. Glucose of more than 200 mg/dL in a nonstressed, ambulatory subject supports the diagnosis of Diabetes Mellitus. Hematocrit Auto (Bld) [Volum e fraction]Ordered By: Brissa Hoffman on 06-23-2022 Hematocrit (Bld) [Volume fraction] 41.2 % 34.0-46.4 [facility] Hemoglobin [Mass/volume] in BloodOrdered By: Brissa Hoffman on 06-23-2022 Hemoglobin (Bld) [Mass/Vol] 13.6 g/dL 11.8-15.4 [facility] Leukocytes [#/volume] correc ruma for nucleated erythrocytes in Blood by Automated counOrdered By: Brissa Hoffman on 06-23-2022 WBC corrected for nucl RBC Auto (Bld) [#/Vol] 6.4 10*3/uL 3.8-11.6 [facility] Lymphocytes Auto (Bld) [#/Vo l]Ordered By: Brissa Hoffman on 06-23-2022 Lymphocytes (Bld) [#/Vol] 1.6 10*3/uL 1.00-4.8 [facility] Lymphocytes/100 WBC Auto (Bl d)Ordered By: Brissa Hoffamn on 06-23-2022 Lymphocytes/100 WBC (Bld) 24.6 % . [facility] MCH Auto (RBC) [Entitic mass ]Ordered By: Brissa Hoffman on 06-23-2022 MCH (RBC) [Entitic mass] 30.9 pg 24.7-34.3 [facility] MCHC Auto (RBC) [Mass/Vol]Or dered By: Brissa Hoffman on 06-23-2022 MCHC (RBC) [Mass/Vol] 33.0 g/dL 32.0-35.0 [facility] MCV Auto (RBC) [Entitic vol] Ordered By: Brissa Hoffman on 06-23-2022 MCV (RBC) [Entitic vol] 93.5 fL 80-100 [facility] Monocytes Auto (Bld) [#/Vol] Ordered By: Brissa Hoffman on 06-23-2022 Monocytes (Bld) [#/Vol] 0.8 10*3/uL 0.0-0.8 [facility] Monocytes/100 WBC Auto (Bld) Ordered By: Brissa Hoffman on 06-23-2022 Monocytes/100 WBC (Bld) 12.9 % . [facility] Neutrophils Auto (Bld) [#/Vo l]Ordered By: Brissa Hoffman on 06-23-2022 Neutrophils (Bld) [#/Vol] 3.8 10*3/uL 1.8-7.7 [facility] Neutrophils/100 WBC Auto (Bl d)Ordered By: Brissa Hoffman on 06-23-2022 Neutrophils/100 WBC (Bld) 59.7 % . [facility] No Panel InformationOrdered By: Sharron Casey on 06-23-2022 Estimated GFR (CKD-EPI) 35.865 mL/Min [facility] Creatinine Clearance (Chem 42.65 [facility] Nucleated erythrocytes [Pres ence] in Blood by Automated countOrdered By: Brissa Hoffman on 06-23-2022 Nucleated RBC Auto Ql (Bld) 0.0 /100{WBC} 0-0.5 [facility] Platelet mean volume Auto (B ld) [Entitic vol]Ordered By: Brissa Hoffman on 06-23-2022 Platelet mean volume (Bld) [Entitic vol] 10.2 fL 6.3-10.7 [facility] Platelets Auto (Bld) [#/Vol] Ordered By: Brissa Hoffman on 06-23-2022 Platelets (Bld) [#/Vol] 147 10*3/uL 150-450 [facility] Potassium [Moles/volume] in Serum or PlasmaOrdered By: Sharron Casey on 06-23-2022 Potassium [Moles/Vol] 4.2 mmol/L 3.5-5.1 [facility] RBC Auto (Bld) [#/Vol]Ordere d By: Brissa Hoffman on 06-23-2022 RBC (Bld) [#/Vol] 4.41 10*6/uL 3.60-5.00 [facility] Serum or plasma anion gap de terminationOrdered By: Sharron Casey on 06-23-2022 Anion gap [Moles/Vol] 10.9 mmol/L 6.0-15.0 [facility] Sodium [Moles/volume] in Ser um or PlasmaOrdered By: Sharron Casey on 06-23-2022 Sodium [Moles/Vol] 135 mmol/L 136-145 [facility] Troponin I High Sensitivityo n 06-23-2022 Troponin I High Sensitivity 65.3 pg/mL Off scale high 0.0-15.0 [facility] Comment on above: Result Comment: Crit ical Result : Called to and read back by: CHELY HERNADEZ at: 06/23/2022 10:49:30 by:LEENA PERFORMED BY: [place] [phone] PATHOLOGIST MED SURG RN CINDY BRADSHAW M.D. Performed By: #### C K, HS TROP #### [facility] [address] [place] [address] Troponin I High Sensitivity 75.9 pg/mL Off scale high 0.0-15.0 [facility] Comment on above: Result Comment: Crit ical Result : Called to and read back by: RICARDO LANDRUM at: 06/23/2022 03:00:48 by:[id number] PERFORMED BY: [place] [phone] PATHOLOGIST MED SURG RN CINDY BRADSHAW M.D. Performed By: #### C K, HS TROP #### [facility] [address] [place] [address] Troponin I.cardiac [Mass/vol ume] in Serum or Plasma by Detection limit <= 0.01 ng/Ordered By: Sharron Casey on 06-23-2022 Troponin I.cardiac DL <= 0.01 ng/mL [Mass/Vol] 65.3 pg/mL 0.0-15.0 [facility] Comment on above: Critical Result : Ca lled to and read back by: CHELY HERNADEZ at: 06/23/2022 10:49:30 by:LEENA Urea nitrogen [Mass/volume] in Serum or PlasmaOrdered By: Sharron Casey on 06-23-2022 Urea nitrogen [Mass/Vol] 37 mg/dL 7- [facility] WBC Auto (Bld) [#/Vol]Ordere d By: Brissa Hoffman on 06-23-2022 WBC (Bld) [#/Vol] 6.4 10*3/uL 3.8-11.6 [facility] A1C with Estimated Average Darnell blackwell 06-22-2022 Glucose [Mass/Vol] 194 mg/dL Normal [facility] Comment on above: Result Comment: PERF ORMED BY: [facility] [address] [place] [address] PATHOLOGIST MED SURG RN CINDY BRADSHAW M.D. Performed By: #### G LULS #### Point of Care testing , HbA1c (Bld) [Mass fraction] 8.4 % High 4.3-5.6 [facility] Comment on above: Result Comment: Incr eased risk for diabetes: 5.7 - 6.4 diabetes: >6.4 glycemic control for adults with diabetes: <7.0 Performed By: #### G LULS #### Point of Care testing , Alanine aminotransferase [En zymatic activity/volume] in Serum or PlasmaOrdered By: Marcela Cano on 06-22-2022 ALT [Catalytic activity/Vol] 13 U/L 7-52 [facility] Albumin [Mass/volume] in Ser um or Plasma by Bromocresol green (BCG) dye binding methoOrdered By: Marcela Cano on 06-22-2022 Albumin BCG dye [Mass/Vol] 3.4 g/dL 3.5-5.7 [facility] Alkaline phosphatase [Enzyma tic activity/volume] in Serum or PlasmaOrdered By: Marcela Cano on 06-22-2022 ALP [Catalytic activity/Vol] 74 U/L 34-104 [facility] Aspartate aminotransferase [ Enzymatic activity/volume] in Serum or PlasmaOrdered By: Marcela Cano on 06-22-2022 AST [Catalytic activity/Vol] 16 U/L 13-39 [facility] B-Type Natriuretic Peptideon 06-22-2022 Natriuretic peptide B (Bld) [Mass/Vol] 507.0 pg/mL High 5-100 [facility] Comment on above: Result Comment: PERF ORMED BY: [place] [address] PATHOLOGIST MED SURG RN CINDY BRADSHAW M.D. Performed By: #### C K, HS TROP #### [address] Bilirubin.total [Mass/volume ] in Serum or PlasmaOrdered By: Marcela Cano on 06-22-2022 Bilirubin [Mass/Vol] 0.7 mg/dL 0.3-1.0 [facility] Cholesterol [Mass/volume] in Serum or PlasmaOrdered By: Marcela Cano on 06-22-2022 Cholesterol [Mass/Vol] 162 mg/dL 140-200 [facility] Comment on above: Chol less than 200 m g/dl low riskChol 201-239 mg/dl borderline riskChol 240 mg/dl and greater high risk Cholesterol in LDL Calc [Mas s/Vol]Ordered By: Marcela Cano on 06-22-2022 Cholesterol in LDL [Mass/Vol] 105 mg/dL 0-100 [facility] Comment on above: LDL ATP III CLASSIFI CATIONLDL less than 100 mg/dL OptimalLDL 100-129 mg/dL Near or above optimalLDL 130-159 mg/dL Borderline highLDL 160-189 mg/dL HighLDL greater than 189 mg/dL Very high Cholesterol in VLDL Calc [Ma ss/Vol]Ordered By: Marcela Cano on 06-22-2022 Cholesterol in VLDL [Mass/Vol] 32 mg/dL [facility] Complete Blood Count Auto Di ffon 06-22-2022 Basophils (Bld) [#/Vol] 0.1 10*3/uL Normal 0.0-0.2 [facility] Comment on above: Result Comment: PERF ORMED BY: [facility] [address] [place] [address] PATHOLOGIST MED SURG RN CINDY BRADSHAW M.D. Performed By: #### C K, HS TROP #### [facility] [address] [place] [address] [place] Basophils/100 WBC (Bld) 0.9 % Normal . [facility] Comment on above: Performed By: #### C K, HS TROP #### [facility] [address] [place] [address] [place] Eosinophils (Bld) [#/Vol] 0.0 10*3/uL Normal 0.0-0.45 [facility] Comment on above: Performed By: #### C K, HS TROP #### [facility] [address] [place] [address] [place] Eosinophils/100 WBC (Bld) 0.1 % Normal . [facility] Comment on above: Performed By: #### C K, HS TROP #### [facility] [address] [place] [address] [place] Erythrocyte distribution width (RBC) [Ratio] 14.7 % Normal 11.9-15.3 [facility] Comment on above: Performed By: #### C K, HS TROP #### [facility] [address] [place] [address] [place] Hematocrit (Bld) [Volume fraction] 42.1 % Normal 34.0-46.4 [facility] Comment on above: Performed By: #### C K, HS TROP #### [facility] [address] [place] [address] [place] Hemoglobin (Bld) [Mass/Vol] 13.9 g/dL Normal 11.8-15.4 [facility] Comment on above: Performed By: #### C K, HS TROP #### [facility] [address] [place] [address] [place] Lymphocytes (Bld) [#/Vol] 1.4 10*3/uL Normal 1.00-4.8 [facility] Comment on above: Performed By: #### C K, HS TROP #### [facility] [address] [place] [address] [place] Lymphocytes/100 WBC (Bld) 13.4 % Normal . [facility] Comment on above: Performed By: #### C K, HS TROP #### [facility] [address] MCH (RBC) [Entitic mass] 30.6 pg Normal 24.7-34.3 [facility] Comment on above: Performed By: #### C K, HS TROP #### [facility] [address] MCV (RBC) [Entitic vol] 93.0 fL Normal 80-100 [facility] Comment on above: Performed By: #### C K, HS TROP #### [facility] [address] Mean Corpuscular HGB Conc 32.9 g/dL Normal 32.0-35.0 [facility] Comment on above: Performed By: #### C K, HS TROP #### [address] Monocytes (Bld) [#/Vol] 0.9 10*3/uL High 0.0-0.8 [facility] Comment on above: Performed By: #### C K, HS TROP #### [facility] [address] Monocytes/100 WBC (Bld) 8.1 % Normal . [facility] Comment on above: Performed By: #### C K, HS TROP #### [facility] [address] [place] [address] [place] Neutrophils (Bld) [#/Vol] 8.3 10*3/uL High 1.8-7.7 [facility] Comment on above: Performed By: #### C K, HS TROP #### [facility] [address] [place] [address] [place] Neutrophils/100 WBC (Bld) 77.5 % Normal . [facility] Comment on above: Performed By: #### C K, HS TROP #### [facility] [address] NRBC% 0.1 /100{WBC} Normal 0-0.5 [facility] Comment on above: Performed By: #### C K, HS TROP #### [address] Platelet mean volume (Bld) [Entitic vol] 9.7 fL Normal 6.3-10.7 [facility] Comment on above: Performed By: #### C K, HS TROP #### [address] Platelets (Bld) [#/Vol] 135 10*3/uL Low 150-450 [facility] Comment on above: Performed By: #### C K, HS TROP #### [address] RBC (Bld) [#/Vol] 4.53 10*6/uL Normal 3.60-5.00 [facility] Comment on above: Performed By: #### C K, HS TROP #### [address] WBC (Bld) [#/Vol] 10.7 10*3/uL Normal 3.8-11.6 [facility] Comment on above: Performed By: #### C Beth, HS TROP #### [address] Comprehensive Metabolic Pane faye 06-22-2022 Albumin [Mass/Vol] 3.4 g/dL Low 3.5-5.7 [facility] Comment on above: Performed By: #### C K, HS TROP #### [address] Albumin/Globulin [Mass ratio] 1.4 {ratio} Normal [facility] Comment on above: Performed By: #### C K, HS TROP #### [address] ALP [Catalytic activity/Vol] 74 U/L Normal 34-104 [facility] Comment on above: Performed By: #### C K, HS TROP #### [facility] [address] [place] [address] ALT [Catalytic activity/Vol] 13 U/L Normal 7-52 [facility] Comment on above: Performed By: #### C K, HS TROP #### [facility] [address] Anion gap [Moles/Vol] 11.2 mmol/L Normal 6.0-15.0 [facility] Comment on above: Performed By: #### C K, HS TROP #### [facility] [address] AST [Catalytic activity/Vol] 16 U/L Normal 13-39 [facility] Comment on above: Performed By: #### C K, HS TROP #### [facility] [address] Bilirubin [Mass/Vol] 0.7 mg/dL Normal 0.3-1.0 [facility] Comment on above: Performed By: #### C K, HS TROP #### [facility] [address] Calcium [Mass/Vol] 8.5 mg/dL Low 8.6-10.3 [facility] Comment on above: Performed By: #### C K, HS TROP #### [facility] [address] Chloride [Moles/Vol] 102 mmol/L Normal 98-107 [facility] Comment on above: Performed By: #### C K, HS TROP #### [facility] [address] CO2 [Moles/Vol] 24.8 mmol/L Normal 21.0-31.0 [facility] Comment on above: Performed By: #### C K, HS TROP #### [facility] [address] [place] [address] [place] Creatinine [Mass/Vol] 1.92 mg/dL High 0.60-1.20 [facility] Comment on above: Performed By: #### C K, HS TROP #### [facility] [address] [place] [address] [place] Creatinine Clr Calc Pharmacy 31.93 Normal [facility] Comment on above: Performed By: #### C K, HS TROP #### [facility] [address] [place] [address] [place] GFR/1.73 sq M.predicted MDRD (S/P/Bld) [Vol rate/Area] 25.395 mL/min/{1.73_m2} Normal [facility] Comment on above: Performed By: #### C K, HS TROP #### [facility] [address] [place] [address] [place] Globulin (S) [Mass/Vol] 2.5 g/dL Normal [facility] Comment on above: Performed By: #### C K, HS TROP #### [facility] [address] Glucose [Mass/Vol] 193 mg/dL High 70-100 [facility] Comment on above: Result Comment: [place] Glucose Reference Range is dependent on time and content of last meal. Glucose of more than 200 mg/dL in a nonstressed, ambulatory subject supports the diagnosis of Diabetes Mellitus. ADA recommended reference range Performed By: #### C K, HS TROP #### [facility] [address] [place] [address] [place] Potassium [Moles/Vol] 4.0 mmol/L Normal 3.5-5.1 [facility] Comment on above: Performed By: #### C K, HS TROP #### [facility] [address] [place] [address] [place] Protein [Mass/Vol] 5.9 g/dL Low 6.4-8.9 [facility] Comment on above: Performed By: #### C K, HS TROP #### [facility] [address] [place] [id number] [place] Sodium [Moles/Vol] 134 mmol/L Low 136-145 [facility] Comment on above: Performed By: #### C K, HS TROP #### [facility] [address] [place] [id number] [place] Urea nitrogen [Mass/Vol] 39 mg/dL High 7-25 [facility] Comment on above: Performed By: #### C K, HS TROP #### [facility] [address] [place] [address] [place] Creatine Kinaseon 06-22-2022 CK [Catalytic activity/Vol] 114 U/L Normal 30-223 [facility] Comment on above: Performed By: #### H S TROP, CK #### [facility] [address] [place] [address] [place] CK [Catalytic activity/Vol] 130 U/L Normal 30-223 [facility] Comment on above: Performed By: #### C K, HS TROP #### [facility] [address] [place] [address] [facility] ECH echo transthoracicon [facility] echo transthoracic [facility] Main [place] [address] [place] [address] Echocardiogram Signed Patient: Mohan Espinoza MR#: [id number] 8 : 1935 Acct:[id number] Age/Sex: 86 / F ADM Date: 06/22/22 Loc: Room: [address] [place] [address] Type: ADM IN Attending Dr: Brissa Hoffman MD Ordering Provider: Sharron Casey DO Date of Service: 06/22/2206/11/1002 ECH/ECH echo transthoracic: NSTEMI Copies to: MD Sharron Rice DO Height: 68 in Weight: 300 lb Performed By: SOULEYMANE Burr BSA: 2.4 m2 BP: 103/60 mmHg HR: 103 Reason For Study: NSTEMI History: Anemia. DM. Factor V Leiden. IVC Filter. HTN. TN. Cancer. Chemotherapy. PE. CABG. PCI. Former Smoker. [...] Signed By: Stephanie Hancock MD 06/22/22 1251 [facility] Globulin Calc (S) [Mass/Vol] Ordered By: Marcela Cano on 06-22-2022 Globulin (S) [Mass/Vol] 2.5 g/dL [facility] Glucose Poct Glucometerson 0 06-22-2022 Glucose [Mass/Vol] 245 mg/dL Normal [facility] Comment on above: Result Comment: [place] Glucose Reference Range is dependent on time and content of last meal. Glucose of more than 200 mg/dL in a nonstressed, ambulatory subject supports the diagnosis of Diabetes Mellitus. PERFORMED BY: [facility] [address] [place] [place] [address] PATHOLOGIST MED SURG RN CINDY BRADSHAW M.D. Performed By: #### G LULS #### Point of Care testing , Glucose [Mass/Vol] 201 mg/dL Normal [facility] Comment on above: Result Comment: [facility] Glucose Reference Range is dependent on time and content of last meal. Glucose of more than 200 mg/dL in a nonstressed, ambulatory subject supports the diagnosis of Diabetes Mellitus. PERFORMED BY: [facility] [address] [place] [address] PATHOLOGIST MED SURG RN CINDY BRADSHAW M.D. Performed By: #### G LULS #### Point of Care testing , Commemt1 Glu2: Cleaned Meter Normal [facility] Comment on above: Result Comment: PERF ORMED BY: [facility] [address] [place] [address] PATHOLOGIST MED SURG RN CINDY BRADSHAW M.D. Performed By: #### G LULS #### Point of Care testing , Glucose [Mass/Vol] 191 mg/dL Normal [facility] Comment on above: Result Comment: [place] Glucose Reference Range is dependent on time [...] from glycated hemoglobin (Bld) [Mass/Vol] 194 mg/dL [facility] Hemoglobin A1c percentageOrd ered By: Marcela Cano on 06-22-2022 HbA1c (Bld) [Mass fraction] 8.4 % 4.3-5.6 [facility] Comment on above: Increased risk for d iabetes: 5.7 - 6.4diabetes: >6.4glycemic control for adults with diabetes: <7.0 Lactate [Moles/volume] in Se rum or PlasmaOrdered By: Marcela Cano on 06-22-2022 Lactate [Moles/Vol] 1.2 mmol/L 0.5-2.2 [facility] Lactic Acidon 06-22-2022 Lactate [Moles/Vol] 1.2 mmol/L Normal 0.5-2.2 [facility] Comment on above: Result Comment: PERF ORMED BY: [place] [address] PATHOLOGIST MED SURG RN CINDY BRADSHAW M.D. Performed By: #### C K, HS TROP #### [facility] [address] [place] [address] Lipid Panelon 06-22-2022 Cholesterol [Mass/Vol] 162 mg/dL Normal 140-200 [facility] Comment on above: Result Comment: Chol less than 200 mg/dl low risk Chol 201-239 mg/dl borderline risk Chol 240 mg/dl and greater high risk Performed By: #### C K, HS TROP #### [address] Cholesterol in HDL [Mass/Vol] 25 mg/dL Low 35-85 [facility] Comment on above: Result Comment: HDL CHOL ATP-III CLASSIFICATION Cardiovascular Risk HDL > or equal to 60 mg/dL LOW HDL < 40 mg/dL HIGH Performed By: #### C K, HS TROP #### [facility] [address] [place] [address] [place] Cholesterol.total/Mary Ann sterol in HDL [Mass ratio] 6.5 {ratio} Normal <5.0 [facility] Comment on above: Result Comment: PERF ORMED BY: [place] [address] PATHOLOGIST MED SURG RN CINDY BRADSHAW M.D. Performed By: #### C K, HS TROP #### [facility] [address] LDL Cholesterol,Calculated 105 mg/dL High 0-100 [facility] Comment on above: Result Comment: LDL ATP III CLASSIFICATION LDL less than 100 mg/dL Optimal LDL 100-129 mg/dL Near or above optimal LDL 130-159 mg/dL Borderline high LDL 160-189 mg/dL High LDL greater than 189 mg/dL Very high Performed By: #### C K, HS TROP #### [facility] [address] Triglyceride w/Reflex 160 mg/dL High 0-149 [facility] Comment on above: Result Comment: TRIG ATP III CLASSIFICATION TRIG less than 150 mg/dL Normal TRIG 150-199 mg/dL Borderline high TRIG 200-500 mg/dL High TRIG greater than 500 mg/dL Very high Standard traceable to the Center for Disease Conrtrol and Prevention (CDC) test method. Performed By: #### C K, HS TROP #### [facility] [address] VLDL CHOLESTEROL 32 mg/dL Normal [facility] Comment on above: Performed By: #### C K, HS TROP #### [facility] [address] Natriuretic peptide B [Mass/ Vol]Ordered By: Marcela Cano on 06-22-2022 Natriuretic peptide B (Bld) [Mass/Vol] 507.0 pg/mL 5-100 [facility] No Panel InformationOrdered By: Toi Johnson on 06-22-2022 Bedside Glucose Comment Glu2: cleaned meter [facility] Protein [Mass/volume] in Ser um or PlasmaOrdered By: Marcela Cano on 06-22-2022 Protein [Mass/Vol] 5.9 g/dL 6.4-8.9 [facility] Serum or plasma albumin/glob ulin mass ratioOrdered By: Marcela Cano on 06-22-2022 Albumin/Globulin [Mass ratio] 1.4 {ratio} [facility] Serum or plasma high density lipoprotein (HDL) cholesterol measurementOrdered By: Marcela Cano on 06-22-2022 Cholesterol in HDL [Mass/Vol] 25 mg/dL 35-85 [facility] Comment on above: HDL CHOL ATP-III CLA SSIFICATION Cardiovascular RiskHDL > or equal to 60 mg/dL LOWHDL < 40 mg/dL HIGH Serum or plasma total choles terol/high density lipoprotein (HDL) cholesterol mass ratOrdered By: Marcela Cano on 06-22-2022 Cholesterol.total/Mary Ann sterol in HDL [Mass ratio] 6.5 {ratio} <5.0 [facility] TROPONIN, HIGH SENSITIVITYon 06-22-2022 HSTROP 395.9 pg/mL Critically high 4.0-51.3 [facility] Comment on above: Result Comment: CUT- OFF POINTS HAVE BEEN ESTABLISHED BASED ON THE FOURTH UNIVERSAL DEFINITIONS OF MYOCARDIAL INFARCTION. THE UPPER REFERENCE LIMIT (URL) OF TROPONIN, DEFINED THE 99TH PERCENTILE OF cTnI DISTRIBUTION IN A REFERENCE POPULATION, HAS BEEN CONFIRMED THE DECISION THRESHOLD FOR [place] DIAGNOSIS. Performed By: #### U RTPCR #### [facility] [address] [place] [address] Dr. Shilpa Beard Triglyceride [Mass/volume] i n Serum or PlasmaOrdered By: Marcela Cano on 06-22-2022 Triglyceride [Mass/Vol] 160 mg/dL 0-149 [facility] Comment on above: TRIG ATP III CLASSIF ICATIONTRIG less than 150 mg/dL NormalTRIG 150-199 mg/dL Borderline highTRIG 200-500 mg/dL High TRIG greater than 500 mg/dL Very highStandard traceable to the Center for Disease Conrtrol and Prevention (CDC) test method. Troponin I High Sensitivityo n 06-22-2022 Troponin I High Sensitivity 86.3 pg/mL Off scale high 0.0-15.0 [facility] Comment on above: Result Comment: Crit ical Result : Called to and read back by: RICARDO LANDRUM at: 06/22/2022 20:03:59 by:MAHIN PERFORMED BY: [place] [address] PATHOLOGIST MED SURG RN CINDY BRADSHAW M.D. Performed By: #### H S TROP, CK #### [address] Troponin I High Sensitivity 182.3 pg/mL Off scale high 0.0-15.0 [facility] Comment on above: Result Comment: Crit ical Result : Called to and read back by: THERESE SANTOS at: 06/22/2022 11:30:47 by:[id number] PERFORMED BY: [phone] PATHOLOGIST MED SURG RN CINDY BRADSHAW M.D. Performed By: #### C K, HS TROP #### [address] Troponin I High Sensitivity 168.1 pg/mL Off scale high 0.0-15.0 [facility] Comment on above: Result Comment: Crit ical Result : Called to and read back by: THERESE SANTOS at: 06/22/2022 11:31:17 by:[id number] PERFORMED BY: [place] [phone] PATHOLOGIST MED SURG RN CINDY BRADSHAW M.D. Performed By: #### C K, HS TROP #### [place] [address] [place] Troponin I High Sensitivity 279.0 pg/mL Off scale high 0.0-15.0 [facility] Comment on above: Result Comment: Crit ical Result : Called to and read back by: PEDRO SAUL at: 06/22/2022 06:20:50 by:[id number] PERFORMED BY: [place] [phone] PATHOLOGIST MED SURG RN CINDY BRADSHAW M.D. Performed By: #### G LULS #### Point of Care testing , AMYLASEon 06-21-2022 Amylase [Catalytic activity/Vol] 41 U/L Normal 25-115 [facility] Comment on above: Performed By: #### L IPA, ALLISON #### [facility] [address] [place] [address] Dr. Shilpa Beard CBC AUTO DIFFon 06-21-2022 BASO # 0.1 103/ul Normal 0.0-0.1 [facility] Comment on above: Performed By: #### C BC #### [facility] [address] [place] [address] Dr. Shilpa Beard Basophils/100 WBC (Bld) 0.4 % Normal 0.2-2.0 [facility] Comment on above: Performed By: #### C BC #### [facility] [address] [place] [address] Dr. Shilpa Beard EO # 0.0 103/ul Normal 0.0-0.7 [facility] Comment on above: Performed By: #### C BC #### [facility] [address] [place] [address] Dr. Shilpa Beard Eosinophils/100 WBC (Bld) 0.1 % Critically low 0.9-7.0 [facility] Comment on above: Performed By: #### C BC #### [facility] [address] [place] [address] Dr. Shilpa Beard Erythrocyte distribution width (RBC) [Ratio] 13.4 % Normal 11.0-15.0 [facility] Comment on above: Performed By: #### C BC #### [facility] [address] [place] [address] Dr. Shilpa Beard Hematocrit (Bld) [Volume fraction] 46.1 % Normal 36.0-48.0 [facility] Comment on above: Performed By: #### C BC #### [facility] [address] [place] [address] Dr. Shilpa Beard Hemoglobin (Bld) [Mass/Vol] 15.6 g/dL Normal 12.0-16.0 [facility] Comment on above: Performed By: #### C BC #### [facility] [address] [place] [address] Dr. Shilpa Beard IG # 0.07 10e3/ul Critically high 0.00-0.03 [facility] Comment on above: Performed By: #### C BC #### [facility] [address] [place] [address] Dr. Shilpa Beard IG % 0.4 % Normal 0.0-0.5 [facility] Comment on above: Performed By: #### C BC #### [facility] [address] [address] [address] Shilpa Beard LYMPH # 0.7 103/ul Critically low 1.2-3.8 [facility] Comment on above: Performed By: #### C BC #### [facility] [address] [place] [address] Dr. Shilpa Beard Lymphocytes/100 WBC (Bld) 4.4 % Critically low 20.5-60.0 [facility] Comment on above: Performed By: #### C BC #### [facility] [address] [place] [address] Dr. Shilpa Beard MANUAL DIFF REQ NO Normal [facility] Comment on above: Performed By: #### C BC #### [facility] [address] [place] [address] Dr. Shilpa Beard MCH (RBC) [Entitic mass] 30.8 pg Normal 26.7-34.0 [facility] Comment on above: Performed By: #### C BC #### [facility] [address] [place] [address] Dr. Shilpa Beard MCHC (RBC) [Mass/Vol] 33.8 g/dL Normal 29.9-35.2 [facility] Comment on above: Performed By: #### C BC #### [facility] [address] [place] [address] Dr. Shilpa Beard MCV (RBC) [Entitic vol] 90.9 fL Normal 81.0-99.0 [facility] Comment on above: Performed By: #### C BC #### [facility] [address] [place] [address] Dr. Shilpa Beard MONO # 0.9 103/ul Critically high 0.3-0.8 [facility] Comment on above: Performed By: #### C BC #### [facility] [address] [place] [address] Dr. Shilpa Beard Monocytes/100 WBC (Bld) 5.6 % Normal 1.7-12.0 [facility] Comment on above: Performed By: #### C BC #### [facility] [address] [address] [address] Shilpa Beard NEUT # 14.5 103/ul Critically high 1.4-6.5 [facility] Comment on above: Performed By: #### C BC #### [facility] [address] [address] [address] Shilpa Beard Neutrophils/100 WBC (Bld) 89.1 % Critically high 43.0-75.0 [facility] Comment on above: Performed By: #### C BC #### [facility] [address] [place] [address] Dr. Shilpa Beard Platelet mean volume (Bld) [Entitic vol] 11.6 fL Normal 9.5-13.5 [facility] Comment on above: Performed By: #### C BC #### [facility] [address] [place] [address] Dr. Shilpa Beard PLT 176 103/ul Normal 150-450 [facility] Comment on above: Performed By: #### C BC #### [facility] [address] [place] [address] Dr. Shilpa Beard RBC 5.07 106/ul Normal 4.20-5.40 [facility] Comment on above: Performed By: #### C BC #### [facility] [address] [place] [address] Dr. Shilpa Beard WBC 16.2 103/ul Critically high 4.0-11.0 [facility] Comment on above: Performed By: #### C BC #### [facility] [address] [place] [address] ABD/PELVIS WO CONon [...] JENNIFER SWIFT Date: 2022-06-21 21:52 Normal [facility] CULTURE URINEon 06-21-2022 CULTURE URINE Culture Observations : NO GROWTH. Normal [facility] Comment on above: Performed By: #### L IPAALLISON #### [facility] [address] [address] [address] Shilpa Beard [facility]on SARS-CoV-2 (COVID-19) RNA COLIN+probe Ql (Unsp spec) Not detected Normal NOT DETECTED [facility] Comment on above: Result Comment: When diagnostic [...] for this test is supported by the [place] of [employer] and Human Service's declaration that [...] used). Performed By: #### C VDTBH #### [facility] [address] [place] [address] Dr. Shilpa GALVEZ URINE PROFILEon 3 Bilirubin Ql (U) Negative Normal NEGATIVE [facility] Comment on above: Performed By: #### U RTPCR #### [facility] [address] [place] [address] Dr. Shilpa Beard Clarity (U) CLEAR Normal CLEAR [facility] Comment on above: Performed By: #### U RTPCR #### [facility] [address] [place] [address] Dr. Shilpa Beard Color (U) LT. YELLOW Normal YELLOW [facility] Comment on above: Performed By: #### U RTPCR #### [facility] [address] [place] [address] Dr. Shilpa SUTTON A micrscopic examination will be performed if indicated. Normal [facility] Comment on above: Performed By: #### U RTPCR #### [facility] [address] [place] [address] Dr. Shilpa Beard Glucose Ql (U) 250 mg/dl Abnormal NEGATIVE [facility] Comment on above: Performed By: #### U RTPCR #### [facility] [address] [place] [address] Dr. Shilpa Beard Hemoglobin Ql (U) TRACE-INTACT Abnormal NEGATIVE [facility] Comment on above: Performed By: #### U RTPCR #### [facility] [address] [place] [address] Dr. Shilpa Beard Ketones Ql (U) Negative Normal NEGATIVE [facility] Comment on above: Performed By: #### U RTPCR #### [facility] [address] [place] [address] Dr. Shilpa Beard LEUKOCYTES Negative Normal NEGATIVE [facility] Comment on above: Performed By: #### U RTPCR #### [facility] [address] [place] [address] Dr. Shilpa Beard Nitrite Ql (U) Negative Normal NEGATIVE [facility] Comment on above: Performed By: #### U RTPCR #### [facility] [address] [place] [address] Dr. Shilpa Beard pH (U) 5.0 [pH] Normal 5-9 [facility] Comment on above: Performed By: #### U RTPCR #### [facility] [address] [place] [address] Dr. Shilpa Beard Protein (U) [Mass/Vol] 100 mg/dL Abnormal NEGAT WILSON/ TRACE [facility] Comment on above: Performed By: #### U RTPCR #### [facility] [address] [place] [address] Dr. Shilpa Beard SPEC GRAVITY 1.025 Normal 1.005-<=1.02 5 [facility] Comment on above: Performed By: #### U RTPCR #### [facility] [address] [place] [address] Dr. Shilpa Beard UR MICRO IND INDICATED Normal [facility] Comment on above: Performed By: #### U RTPCR #### [facility] [address] [place] [address] Dr. Shilpa Beard Urobilinogen Qn (U) 0.2 {Jacklyn'U}/dL Normal 0.2 - 1. 0 [facility] Comment on above: Performed By: #### U RTPCR #### [facility] [address] [place] [address] Dr. Shilpa Beard LIPASEon 06-21-2022 Lipase [Catalytic activity/Vol] 80.0 U/L Normal 73.0-393.0 [facility] Comment on above: Performed By: #### L IPA, ALLISON #### [facility] [address] [place] [address] Dr. Shilpa Beard Lipase [Catalytic activity/Vol] 82.0 U/L Normal 73.0-393.0 [facility] Comment on above: Performed By: #### U RTPCR #### [facility] [address] [place] [address] Dr. Shilpa Beard PROF 14(COMP METB)on 023 Albumin [Mass/Vol] 3.3 g/dL Critically low 3.4-5.0 [facility] Comment on above: Performed By: #### U RTPCR #### [facility] [address] [place] [address] Dr. Shilpa Beard Albumin/Globulin [Mass ratio] 0.8 {ratio} Normal [facility] Comment on above: Performed By: #### U RTPCR #### [facility] [address] [address] [address] Shilpa Beard ALP [Catalytic activity/Vol] 114 U/L Normal 46-116 [facility] Comment on above: Performed By: #### U RTPCR #### [facility] [address] [address] [address] Shilpa Beard ALT [Catalytic activity/Vol] 18 U/L Normal 14-59 [facility] Comment on above: Performed By: #### U RTPCR #### [facility] [address] [place] [address] Dr. Shilpa Beard Anion gap [Moles/Vol] 18.4 mmol/L Normal [facility] Comment on above: Performed By: #### U RTPCR #### [facility] [address] [place] [address] Dr. Shilpa Beard AST [Catalytic activity/Vol] 22 U/L Normal 15-37 [facility] Comment on above: Performed By: #### U RTPCR #### [facility] [address] [place] [address] Dr. Shilpa Beard Bilirubin [Mass/Vol] 0.6 mg/dL Normal 0.2-1.0 [facility] Comment on above: Performed By: #### U RTPCR #### [facility] [address] [place] [address] Dr. Shilpa Beard Calcium [Mass/Vol] 8.9 mg/dL Normal 8.5-10.1 [facility] Comment on above: Performed By: #### U RTPCR #### [facility] [address] [place] [address] Dr. Shilpa Beard Chloride [Moles/Vol] 100 mmol/L Normal 98-107 [facility] Comment on above: Performed By: #### U RTPCR #### [facility] [address] [address] [address] Shilpa Beard CO2 [Moles/Vol] 22.2 mmol/L Normal 21.0-32.0 [facility] Comment on above: Performed By: #### U RTPCR #### [facility] [address] [address] [address] Shilpa Beard Creatinine [Mass/Vol] 1.80 mg/dL Critically high 0.55-1.02 [facility] Comment on above: Performed By: #### U RTPCR #### [facility] [address] [address] [address] Shilpa Beard EGFR-AF GERMAN 32 mL/min/1.73m2 Critically low >=60 [facility] Comment on above: Performed By: #### U RTPCR #### [facility] [address] [address] [address] Shilpa Beard EGFR-NON AF GERMAN 27 mL/min/1.73m2 Critically low >=60 [facility] Comment on above: Performed By: #### U RTPCR #### [facility] [address] [address] [address] Shilpa Beard Globulin (S) [Mass/Vol] 4.0 g/dL Normal [facility] Comment on above: Performed By: #### U RTPCR #### [facility] [address] [address] [address] Shilpa Beard Glucose [Mass/Vol] 277 mg/dL Critically high 74-106 [facility] Comment on above: Performed By: #### U RTPCR #### [facility] [address] [address] [address] Shilpa Beard Potassium [Moles/Vol] 4.6 mmol/L Normal 3.5-5.1 [facility] Comment on above: Performed By: #### U RTPCR #### [facility] [address] [address] [address] Shilpa Beard Protein [Mass/Vol] 7.3 g/dL Normal 6.4-8.2 [facility] Comment on above: Performed By: #### U RTPCR #### [facility] [address] [address] [address] Shilpa Beard Sodium [Moles/Vol] 136 mmol/L Normal 136-145 [facility] Comment on above: Performed By: #### U RTPCR #### [facility] [address] [address] [address] Shilpa Beard Urea nitrogen [Mass/Vol] 35.0 mg/dL Critically high 7.0-18.0 [facility] Comment on above: Performed By: #### U RTPCR #### [facility] [address] [address] [address] Shilpa Beard Urea nitrogen/Creatinine [Mass ratio] 19.4 mg/mg Normal [facility] Comment on above: Performed By: #### U RTPCR #### [facility] [address] [place] [address] Dr. Shilpa Beard TROPONIN, HIGH SENSITIVITYon 06-21-2022 HSTROP 190.4 pg/mL Critically high 4.0-51.3 [facility] Comment on above: Result Comment: CUT- OFF POINTS HAVE BEEN ESTABLISHED BASED ON THE FOURTH UNIVERSAL DEFINITIONS OF MYOCARDIAL INFARCTION. THE UPPER REFERENCE LIMIT (URL) OF TROPONIN, DEFINED THE 99TH PERCENTILE OF cTnI DISTRIBUTION IN A REFERENCE POPULATION, HAS BEEN CONFIRMED THE DECISION THRESHOLD FOR [place] DIAGNOSIS. Performed By: #### H STROPN #### [facility] [address] [place] [address] Dr. Shilpa Beard HSTROP 103.3 pg/mL Critically high 4.0-51.3 [facility] Comment on above: Result Comment: CUT- OFF POINTS HAVE BEEN ESTABLISHED BASED ON THE FOURTH UNIVERSAL DEFINITIONS OF MYOCARDIAL INFARCTION. THE UPPER REFERENCE LIMIT (URL) OF TROPONIN, DEFINED THE 99TH PERCENTILE OF cTnI DISTRIBUTION IN A REFERENCE POPULATION, HAS BEEN CONFIRMED THE DECISION THRESHOLD FOR TN DIAGNOSIS. Performed By: #### U RTPCR #### [facility] [address] [place] [address] Dr. Shilpa Beard URINE MICROSCOPIC ONLYon AMORPHOUS CRYSTALS FEW Normal [facility] Comment on above: Performed By: #### U RTPCR #### [facility] [address] [place] [address] Dr. Shilpa Beard BACTERIA SMALL Abnormal NONE SEEN [facility] Comment on above: Performed By: #### U RTPCR #### [facility] [address] [place] [address] Dr. Shilpa Beard Bacteria identified Cx Nom (U) INDICATED Normal [facility] Comment on above: Performed By: #### U RTPCR #### [facility] [address] [place] [address] Dr. Shilpa Beard CAST SEEN Abnormal NONE SEEN [facility] Comment on above: Performed By: #### U RTPCR #### [facility] [address] [place] [address] Dr. Shilpa Beard Crystals LM Nom (Urine sed) SEEN Abnormal NONE SEEN [facility] Comment on above: Performed By: #### U RTPCR #### [facility] [address] [place] [address] Dr. Shilpa Beard Epithelial cells LM Ql (Urine sed) FEW Abnormal NONE SEEN /RARE [facility] Comment on above: Performed By: #### U RTPCR #### [facility] [address] [place] [address] Dr. Shilpa Beard HYALINE CAST FEW Normal [facility] Comment on above: Performed By: #### U RTPCR #### [facility] [address] [place] [address] Dr. Shilpa Beard MUCOUS NONE SEEN Normal NONE SEEN [facility] Comment on above: Performed By: #### U RTPCR #### [facility] [address] [place] [address] Dr. Shilpa Beard RBC 2-5 Abnormal 0-2 [facility] Comment on above: Performed By: #### U RTPCR #### [facility] [address] [place] [address] Dr. Shilpa Beard WBC NONE SEEN Normal NONE SEEN [facility] Comment on above: Performed By: #### U RTPCR #### [facility] [address] [place] [address] Dr. Shilpa Beard XR CHEST 1 Von [...] LAURENCE RAJPUT Date: 2022-06-21 17:15 Normal [facility] GLYCOHEMOGLOBIN A1Con 2021 ADA RECOMMENDATION SEE BELOW Normal [facility] Comment on above: Result Comment: ADA RECOMMENDED LIMIT 4.0 - 6.0 ADA THERAPEUTIC TARGET < 7.0 ACTION SUGGESTED > 7.0 Performed By: #### A 1C #### [facility] [address] [place] [address] Dr. Shilpa Beard Glucose [Mass/Vol] 174 mg/dL Normal [facility] Comment on above: Performed By: #### A 1C #### [facility] [address] [address] [address] Shilpa Beard HbA1c (Bld) [Mass fraction] 7.7 % Critically high 4.5-6.2 [facility] Comment on above: Performed By: #### A 1C #### [facility] [address] [address] [address] Shilpa Beard PROF CHEM 8 (BAS METB)on Anion gap [Moles/Vol] 13.6 mmol/L Normal [facility] Comment on above: Performed By: #### B MP #### [facility] [address] [place] [address] Dr. Shilpa Beard Calcium [Mass/Vol] 9.6 mg/dL Normal 8.5-10.1 [facility] Comment on above: Performed By: #### B MP #### [facility] [address] [address] [address] Shilpa Beard Chloride [Moles/Vol] 103 mmol/L Normal 98-107 [facility] Comment on above: Performed By: #### B MP #### [facility] [address] [address] [address] Shilpa Beard CO2 [Moles/Vol] 26.1 mmol/L Normal 21.0-32.0 [facility] Comment on above: Performed By: #### B MP #### [facility] [address] [address] [address] Shilpa Beard Creatinine [Mass/Vol] 1.30 mg/dL Critically high 0.55-1.02 [facility] Comment on above: Performed By: #### B MP #### [facility] [address] [address] [address] Shilpa Beard EGFR-AF GERMAN 47 mL/min/1.73m2 Critically low >=60 [facility] Comment on above: Performed By: #### B MP #### [facility] [address] [address] [address] Shilpa Beard EGFR-NON AF GERMAN 39 mL/min/1.73m2 Critically low >=60 [facility] Comment on above: Performed By: #### B MP #### [facility] [address] [address] [address] Shilpa Beard Glucose [Mass/Vol] 219 mg/dL Critically high 74-[address] [facility] Comment on above: Performed By: #### B MP #### [facility] [address] [address] [address] Shilpa Beard Potassium [Moles/Vol] 4.7 mmol/L Normal 3.5-5.1 [facility] Comment on above: Performed By: #### B MP #### [facility] [address] [address] [address] Shilpa Beard Sodium [Moles/Vol] 138 mmol/L Normal 136-145 [facility] Comment on above: Performed By: #### B MP #### [facility] [address] [address] [address] Shilpa Beard Urea nitrogen [Mass/Vol] 37.0 mg/dL Critically high 7.0-18.0 [facility] Comment on above: Performed By: #### B MP #### [facility] [address] [address] [address] Shilpa Beard Urea nitrogen/Creatinine [Mass ratio] 28.5 mg/mg Normal [facility] Comment on above: Performed By: #### B MP #### [facility] [address] [address] [address] Shilpa Beard PROF CHEM 8 (BAS METB)on Anion gap [Moles/Vol] 15.2 mmol/L Normal [facility] Comment on above: Performed By: #### L IPA, ALLISON #### [facility] [address] [place] [address] Dr. Shilpa Beard Calcium [Mass/Vol] 8.7 mg/dL Normal 8.5-10.1 [facility] Comment on above: Performed By: #### L IPA, ALLISON #### [facility] [address] [place] [address] Dr. Shilpa Beard Chloride [Moles/Vol] 102 mmol/L Normal 98-107 [facility] Comment on above: Performed By: #### L IPA, ALLISON #### [facility] [address] [place] [address] Dr. Shilpa Beard CO2 [Moles/Vol] 22.8 mmol/L Normal 21.0-32.0 [facility] Comment on above: Performed By: #### L IPA, ALLISON #### [facility] [address] [place] [address] Dr. Shilpa Beard Creatinine [Mass/Vol] 1.32 mg/dL Critically high 0.55-1.02 [facility] Comment on above: Performed By: #### L IPA, ALLISON #### [facility] [address] [place] [address] Dr. Shilpa Beard EGFR-AF GERMAN 46 mL/min/1.73m2 Critically low >=60 [facility] Comment on above: Performed By: #### L IPA, ALLISON #### [facility] [address] [address] [address] Shilpa Beard EGFR-NON AF GERMAN 38 mL/min/1.73m2 Critically low >=60 [facility] Comment on above: Performed By: #### L IPA, ALLISON #### [facility] [address] [address] [address] Shilpa Beard Glucose [Mass/Vol] 168 mg/dL Critically high 74-106 [facility] Comment on above: Performed By: #### L IPA, ALLISON #### [facility] [address] [address] [address] Shilpa Beard Potassium [Moles/Vol] 5.0 mmol/L Normal 3.5-5.1 [facility] Comment on above: Performed By: #### L IPA, ALLISON #### [facility] [address] [place] [address] Dr. Shilpa Beard Sodium [Moles/Vol] 135 mmol/L Critically low 136-145 [facility] Comment on above: Performed By: #### L IPA, ALLISON #### [facility] [address] [address] [address] Shilpa Beard Urea nitrogen [Mass/Vol] 38.0 mg/dL Critically high 7.0-18.0 [facility] Comment on above: Performed By: #### L IPA, ALLISON #### [facility] [address] [address] [address] Shilpa Beard Urea nitrogen/Creatinine [Mass ratio] 28.8 mg/mg Normal [facility] Comment on above: Performed By: #### L IPA, ALLISON #### [facility] [address] [address] [address] Shilpa Beard CBC AUTO DIFFon 06-30-2021 BASO # 0.1 103/ul Normal 0.0-0.1 [facility] Comment on above: Performed By: #### L IPA, ALLISON #### [facility] [address] [address] [address] Shilpa Beard Basophils/100 WBC (Bld) 1.0 % Normal 0.2-2.0 [facility] Comment on above: Performed By: #### L IPA, ALLISON #### [facility] [address] [place] [address] Dr. Shilpa Beard EO # 0.2 103/ul Normal 0.0-0.7 [facility] Comment on above: Performed By: #### L IPA, ALLISON #### [facility] [address] [place] [address] Dr. Shilpa Beard Eosinophils/100 WBC (Bld) 1.8 % Normal 0.9-7.0 [facility] Comment on above: Performed By: #### L IPA, ALLISON #### [facility] [address] [place] [address] Dr. Shilpa Beard Erythrocyte distribution width (RBC) [Ratio] 13.3 % Normal 11.0-15.0 [facility] Comment on above: Performed By: #### L IPA, ALLISON #### [facility] [address] [place] [address] Dr. Shilpa Beard Hematocrit (Bld) [Volume fraction] 46.5 % Normal 36.0-48.0 [facility] Comment on above: Performed By: #### L IPA, ALLISON #### [facility] [address] [place] [address] Dr. Shilpa Beard Hemoglobin (Bld) [Mass/Vol] 15.1 g/dL Normal 12.0-16.0 [facility] Comment on above: Performed By: #### L IPA, ALLISON #### [facility] [address] [place] [address] Dr. Shilpa Beard IG # 0.06 10e3/ul Critically high 0.00-0.03 [facility] Comment on above: Performed By: #### L IPA, ALLISON #### [facility] [address] [place] [address] Dr. Shilpa Baerd IG % 0.7 % Critically high 0.0-0.5 [facility] Comment on above: Performed By: #### L IPA, ALLISON #### [facility] [address] [place] [address] Dr. Shilpa Beard LYMPH # 2.9 103/ul Normal 1.2-3.8 [facility] Comment on above: Performed By: #### L IPA, ALLISON #### [facility] [address] [place] [address] Dr. Shilpa Beard Lymphocytes/100 WBC (Bld) 35.4 % Normal 20.5-60.0 [facility] Comment on above: Performed By: #### L IPA, ALLISON #### [facility] [address] [place] [address] Dr. Shilpa Beard MANUAL DIFF REQ NO Normal [facility] Comment on above: Performed By: #### L IPA, ALLISON #### [facility] [address] [place] [address] Dr. Shilpa Beard MCH (RBC) [Entitic mass] 29.8 pg Normal 26.7-34.0 [facility] Comment on above: Performed By: #### L IPA, ALLISON #### [facility] [address] [place] [address] Dr. Shilpa Beard MCHC (RBC) [Mass/Vol] 32.5 g/dL Normal 29.9-35.2 [facility] Comment on above: Performed By: #### L IPA, ALLISON #### [facility] [address] [place] [address] Dr. Shilpa Beard MCV (RBC) [Entitic vol] 91.9 fL Normal 81.0-99.0 [facility] Comment on above: Performed By: #### L IPA, ALLISON #### [facility] [address] [place] [address] Dr. Shilpa Beard MONO # 0.8 103/ul Normal 0.3-0.8 [facility] Comment on above: Performed By: #### L IPA, ALLISON #### [facility] [address] [place] [address] Dr. Shilpa Beard Monocytes/100 WBC (Bld) 9.9 % Normal 1.7-12.0 [facility] Comment on above: Performed By: #### L IPA, ALLISON #### [facility] [address] [place] [address] Dr. Shilpa Beard NEUT # 4.2 103/ul Normal 1.4-6.5 [facility] Comment on above: Performed By: #### L IPA, ALLISON #### [facility] [address] [place] [address] Dr. Shilpa Beard Neutrophils/100 WBC (Bld) 51.2 % Normal 43.0-75.0 [facility] Comment on above: Performed By: #### L IPA, ALLISON #### [facility] [address] [place] [address] Dr. Shilpa Beard Platelet mean volume (Bld) [Entitic vol] 11.1 fL Normal 9.5-13.5 [facility] Comment on above: Performed By: #### L IPA, ALLISON #### [facility] [address] [place] [address] Dr. Shilpa Beard PLT 263 103/ul Normal 150-450 [facility] Comment on above: Performed By: #### L IPA, ALLISON #### [facility] [address] [place] [address] Dr. Shilpa Beard RBC 5.06 106/ul Normal 4.20-5.40 [facility] Comment on above: Performed By: #### L IPA, ALLISON #### [facility] [address] [place] [address] Dr. Shilpa Beard WBC 8.1 103/ul Normal 4.0-11.0 [facility] Comment on above: Performed By: #### L IPA, ALLISON #### [facility] [address] [place] [address] Dr. Shilpa Beard GLYCOHEMOGLOBIN A1Con 2021 ADA RECOMMENDATION ADA THERAPEUTIC TARGET 6.0 - 7.0 ACTION SUGGESTED > 7.0 Normal [facility] Comment on above: Performed By: #### U RTPCR #### [facility] [address] [place] [address] Dr. Shilpa Beard Glucose [Mass/Vol] 186 mg/dL Normal [facility] Comment on above: Performed By: #### U RTPCR #### [facility] [address] [place] [address] Dr. Shilpa Beard HbA1c (Bld) [Mass fraction] 8.1 % Critically high <=6.0 [facility] Comment on above: Performed By: #### U RTPCR #### [facility] [address] [place] [address] Dr. Shilpa Beard LIPID PROFILEon 06-30-2021 CHOL-HDL RATIO NORM SEE BELOW Normal [facility] Comment on above: Result Comment: 3.3 - 4.4 LOW RISK 4.4 - 7.1 AVERAGE RISK 7.1 - 11.0 MODERATE RISK >11.0 HIGH RISK Performed By: #### L IPID, URIC, TSH, CMP #### [facility] [address] [place] [address] Dr. Shilpa Beard Cholesterol [Mass/Vol] 223 mg/dL Critically high <=200 [facility] Comment on above: Performed By: #### L IPID, URIC, TSH, CMP #### [facility] [address] [place] [address] Dr. Shilpa Beard Cholesterol in HDL [Mass/Vol] 31 mg/dL Critically low 40-60 [facility] Comment on above: Performed By: #### L IPID, URIC, TSH, CMP #### [facility] [address] [place] [address] Dr. Shilpa Beard Cholesterol in LDL [Mass/Vol] 143.6 mg/dL Normal [facility] Comment on above: Performed By: #### L IPID, URIC, TSH, CMP #### [facility] [address] [place] [address] Dr. Shilpa Beard Cholesterol.total/Mary Ann sterol in HDL [Mass ratio] 7.2 {ratio} Normal [facility] Comment on above: Performed By: #### L IPID, URIC, TSH, CMP #### [facility] [address] [place] [address] Dr. Shilpa Beard HDL NORMAL > or = 60 mg/dl - LO W CARDIOVASCULAR RISK <40 mg/dl - HIGH CARDIOVASCULAR RISK Normal [facility] Comment on above: Performed By: #### L IPID, URIC, TSH, CMP #### [facility] [address] [address] [address] Shilpa Beard LDL CALC NORMAL SEE BELOW Normal [facility] Comment on above: Result Comment: <100 mg/dl OPTIMAL 100 - 129 mg/dl NEAR OR ABOVE OPTIMAL 130 - 159 mg/dl BORDERLINE HIGH 160 - 189 mg/dl HIGH >190 mg/dl VERY HIGH Performed By: #### L IPID, URIC, TSH, CMP #### [facility] [address] [place] [address] Dr. Shilpa Beard Triglyceride [Mass/Vol] 242 mg/dL Critically high <=150 [facility] Comment on above: Performed By: #### L IPID, URIC, TSH, CMP #### [facility] [address] [address] [address] Shilpa Beard VLDL CALC 48.4 mg/dL Normal [facility] Comment on above: Performed By: #### L IPID, URIC, TSH, CMP #### [facility] [address] [place] [address] Dr. Shilpa Beard PROF 14(COMP METB)on 022 Albumin [Mass/Vol] 3.2 g/dL Critically low 3.4-5.0 [facility] Comment on above: Performed By: #### U RTPCR #### [facility] [address] [place] [address] Dr. Shilpa Beard Albumin/Globulin [Mass ratio] 0.7 {ratio} Normal [facility] Comment on above: Performed By: #### U RTPCR #### [facility] [address] [place] [address] Dr. Shilpa Beard ALP [Catalytic activity/Vol] 99 U/L Normal 46-116 [facility] Comment on above: Performed By: #### U RTPCR #### [facility] [address] [place] [address] Dr. Shilpa Beard ALT [Catalytic activity/Vol] 42 U/L Normal 14-59 [facility] Comment on above: Performed By: #### U RTPCR #### [facility] [address] [place] [address] Dr. Shilpa Beard Anion gap [Moles/Vol] 13.1 mmol/L Normal Th [facility] Comment on above: Performed By: #### U RTPCR #### [facility] [address] [address] [address] Shilpa Beard AST [Catalytic activity/Vol] 53 U/L Critically high 15-37 [facility] Comment on above: Performed By: #### U RTPCR #### [facility] [address] [address] [address] Shilpa Beard Bilirubin [Mass/Vol] 0.5 mg/dL Normal 0.2-1.3 [facility] Comment on above: Performed By: #### U RTPCR #### [facility] [address] [address] [address] Shilpa Beard Calcium [Mass/Vol] 8.8 mg/dL Normal 8.5-10.1 [facility] Comment on above: Performed By: #### U RTPCR #### [facility] [address] [address] [address] Shilpa Beard Chloride [Moles/Vol] 100 mmol/L Normal 98-107 [facility] Comment on above: Performed By: #### U RTPCR #### [facility] [address] [place] [address] Dr. Shilpa Beard CO2 [Moles/Vol] 26.7 mmol/L Normal 22.0-30.0 [facility] Comment on above: Performed By: #### U RTPCR #### [facility] [address] [address] [address] Shilpa Beard Creatinine [Mass/Vol] 1.24 mg/dL Critically high 0.52-1.04 [facility] Comment on above: Performed By: #### U RTPCR #### [facility] [address] [place] [address] Dr. Shilpa Beard EGFR-AF GERMAN 50 mL/min/1.73m2 Critically low >=60 [facility] Comment on above: Performed By: #### U RTPCR #### [facility] [address] [address] [address] Shilpa Beard EGFR-NON AF GERMAN 41 mL/min/1.73m2 Critically low >=60 [facility] Comment on above: Performed By: #### U RTPCR #### [facility] [address] [place] [address] Dr. Shilpa Beard Globulin (S) [Mass/Vol] 4.5 g/dL Normal [facility] Comment on above: Performed By: #### U RTPCR #### [facility] [address] [place] [address] Dr. Shilpa Beard Glucose [Mass/Vol] 193 mg/dL Critically high 74-106 [facility] Comment on above: Performed By: #### U RTPCR #### [facility] [address] [place] [address] Dr. Shilpa Beard Potassium [Moles/Vol] 4.8 mmol/L Normal 3.4-5.0 [facility] Comment on above: Performed By: #### U RTPCR #### [facility] [address] [place] [address] Dr. Shilpa Beard Protein [Mass/Vol] 7.7 g/dL Normal 6.1-8.2 [facility] Comment on above: Performed By: #### U RTPCR #### [facility] [address] [place] [address] Dr. Shilpa Beard Sodium [Moles/Vol] 135 mmol/L Critically low 137-145 [facility] Comment on above: Performed By: #### U RTPCR #### [facility] [address] [place] [address] Dr. Shilpa Beard Urea nitrogen [Mass/Vol] 30.0 mg/dL Critically high 7.0-18.0 [facility] Comment on above: Performed By: #### U RTPCR #### [facility] [address] [place] [address] Dr. Shilpa Beard Urea nitrogen/Creatinine [Mass ratio] 24.2 mg/mg Normal [facility] Comment on above: Performed By: #### U RTPCR #### [facility] [address] [place] [address] Dr. Shilpa Beard TSHon 06-30-2021 TSH 2.982 uIU/mL Normal 0.470-4.680 [facility] Comment on above: Performed By: #### U RTPCR #### [facility] [address] [place] [address] Dr. Shilpa Beard TSH RANGE SEE BELOW Normal [facility] Comment on above: Result Comment: <0.3 4 UIU/ml HYPERTHYROID 0.34-5.60 UIU/ml EUTHYROID >5.60 UIU/ml HYPOTHYROID Performed By: #### U RTPCR #### [facility] [address] [place] [address] Dr. Shilpa Beard URIC ACID SERUMon 06-30-2021 Urate [Mass/Vol] 7.9 mg/dL Critically high 2.5-6.2 [facility] Comment on above: Performed By: #### L IPID, URIC, TSH, CMP #### [facility] [address] [place] [address] Dr. Shilpa Beard URINE T PROTEIN CREAT RATIOo n 06-30-2021 Protein (U) [Mass/Vol] 50.5 mg/dL Critically high <=12.0 [facility] Comment on above: Performed By: #### U RTPCR #### [facility] [address] [place] [address] Dr. Shilpa Beard UR PROT CREAT RAT 0.22 Normal [facility] Comment on above: Performed By: #### U RTPCR #### [facility] [address] [place] [address] Dr. Shilpa Beard URINE CREAT 230.96 mg/dL Normal 20.00-300.00 [facility] Comment on above: Performed By: #### U RTPCR #### [facility] [address] [place] [address] Dr. Shilpa Vazquez 04-15-2020 [facility] MOHAN ESPINOZA ([id number]) 1935 F Date Time Provider Department 04/15/20 [...] Fully Assessed Order(s):SARS-COVID VACCINE 1ST DOSE APPT [[id number]] Order #: [id number] FUTURE Prescriptions as of 04/15/2020 Sig: CLOPIDOGREL [...] (HCC) [C91.41]11/04/2015 Letter Text Encounter Status:Closed by [employer] on 04/18/20 [facility] PROGRESSon 09-18-2019 PROGRESS HNO ID: [id number] Author: aSeid Szymanski) Thad Service: ? Author Type: Physician Type: Progress Notes Filed: 09/18/2019 4:23 PM Note Text: PATIENT NAME: Mohan Espinoza CLINIC NO.: [id number] ATTENDING PHYSICIAN: Saeid Oneil MD DATE OF SERVICE: September 18, 2019 Dear IRLANDA Islas here is an update on a follow [...] - Gout - Heart attack (HCC) 04/06/2018 [facility] - Hematuria - History of DVT [...] 09/08/2018 2.53 1.00 - 4.00 k/uL Final [facility]% Date Value Ref Range Status 09/08/2018 13.5 % Final Abs [facility] Date Value Ref Range Status 09/08/2018 0.78 [...] do not hesitate to contact me at [phone]. Saeid Oneil MD Hematology/Medical Oncology [facility] CC: Irlanda Baker MD Normal [facility] BASIC METABOLIC PANELon 03-23 Calcium [Mass/Vol] 9.1 mg/dL Normal 8.6-10.3 [facility] Comment on above: Order Comment: No: D o not add to previous draw Performed By: #### 0 0071, 84169, 39734, 97323, 27572, 49695 #### [facility] [address] [place] [address], [facility] Chloride [Moles/Vol] 113 mmol/L High 98-107 [facility] Comment on above: Order Comment: No: D o not add to previous draw Performed By: #### 0 0071, 16551, 23701, 59979, 57166, 81681 #### [facility] [address] [place] [address], [facility] CO2 [Moles/Vol] 26 mmol/L Normal 21-31 [facility] Comment on above: Order Comment: No: D o not add to previous draw Performed By: #### 0 0071, 60386, 12484, 63055, 79027, 34285 #### [facility] [address] [place] [address], [place] Creatinine [Mass/Vol] 0.95 mg/dL Normal 0.60-1.20 [facility] Comment on above: Order Comment: No: D o not add to previous draw Performed By: #### 0 0071, 40413, 88736, 36804, 69936, 36326 #### [facility] [address] [place] [address], [facility] GFR/1.73 sq M predicted among blacks MDRD (S/P/Bld) [Vol rate/Area] mL/min/{1.73_m2} Normal >60 [facility] Comment on above: Order Comment: No: D o not add to previous draw Result Comment: Calc ulation may not be valid for patients over 70 years Performed By: #### 0 0071, 03216, 35523, 49152, 79432, 69014 #### [facility] [address] [place] [address], [facility] GFR/1.73 sq M predicted among non-blacks MDRD (S/P/Bld) [Vol rate/Area] 56 ml/min/1.73sq m Abnormal >60 [facility] Comment on above: Order Comment: No: D o not add to previous draw Result Comment: Calc ulation may not be valid for patients over 70 years Performed By: #### 0 0071, 16966, 19191, 99922, 66637, 82558 #### [facility] [address] [place] [address], [place] Glucose [Mass/Vol] 169 mg/dL High 70-100 [facility] Comment on above: Order Comment: No: D o not add to previous draw Performed By: #### 0 0071, 72556, 13528, 50806, 29833, 29390 #### [facility] [address] Potassium [Moles/Vol] 4.5 mmol/L Normal 3.5-5.1 [facility] Comment on above: Order Comment: No: D o not add to previous draw Performed By: #### 0 0071, 08907, 46261, 11109, 41625, 30252 #### [facility] [address] Sodium [Moles/Vol] 147 mmol/L High 136-145 [facility] Comment on above: Order Comment: No: D o not add to previous draw Performed By: #### 0 0071, 59510, 07499, 41255, 41561, 25574 #### [facility] [address] Urea nitrogen [Mass/Vol] 18 mg/dL Normal 7-25 [facility] Comment on above: Order Comment: No: D o not add to previous draw Performed By: #### 0 0071, 67417, 94567, 76054, 61382, 31399 #### [facility] [address] CBC W/DIFFon 04-10-2018 ABS BASOPHILS 0.1 10*3/uL Normal 0.0-0.2 [facility] Comment on above: Order Comment: No: D o not add to previous draw Performed By: #### 0 0071, 80911, 05827, 79264, 19195, 54948 #### [facility] [address] ABS IMM GRANS 0.1 10*3/uL Normal 0.0-0.2 [facility] Comment on above: Order Comment: No: D o not add to previous draw Performed By: #### 0 0071, 29362, 16574, 44664, 10796, 89544 #### [facility] [address] [place] [address], [facility] ABS NEUTROPHILS 2.2 10*3/uL Normal 1.6-7.6 [facility] Comment on above: Order Comment: No: D o not add to previous draw Performed By: #### 0 0071, 18439, 14438, 39336, 79165, 78122 #### [facility] [address] [facility] [place] [address], [facility] Basophils/100 WBC (Bld) 1.0 % Normal 0.0-1.0 [facility] Comment on above: Order Comment: No: D o not add to previous draw Performed By: #### 0 0071, 79738, 71614, 11990, 69581, 09282 #### [facility] [address] [place] [address], [facility] Eosinophils (Bld) [#/Vol] 0.0 10*3/uL Normal 0.0-0.5 [facility] Comment on above: Order Comment: No: D o not add to previous draw Performed By: #### 0 0071, 07525, 89993, 37195, 78011, 77084 #### [facility] [address] [facility] [place] [address], [facility] Eosinophils/100 WBC (Bld) 0.0 % Normal 0.0-6.0 [facility] Comment on above: Order Comment: No: D o not add to previous draw Performed By: #### 0 0071, 84429, 49879, 31168, 26668, 07810 #### [facility] [address] [place] [address], [facility] Erythrocyte distribution width (RBC) [Ratio] 12.9 % Normal 11.5-15.0 [facility] Comment on above: Order Comment: No: D o not add to previous draw Performed By: #### 0 0071, 67560, 48576, 17614, 81184, 33541 #### [facility] [address] [place] [address], [facility] Hematocrit (Bld) [Volume fraction] 35.3 % Low 36.0-45.0 [facility] Comment on above: Order Comment: No: D o not add to previous draw Performed By: #### 0 0071, 85123, 39285, 64989, 48224, 16000 #### [facility] [address] [facility] [place] [address], [facility] Hemoglobin (Bld) [Mass/Vol] 11.7 g/dL Low 12.0-15.0 [facility] Comment on above: Order Comment: No: D o not add to previous draw Performed By: #### 0 0071, 40854, 37325, 52955, 45839, 36127 #### [facility] [address] IMMATURE GRANS 1.0 % Normal 0.0-1.0 [facility] Comment on above: Order Comment: No: D o not add to previous draw Performed By: #### 0 0071, 94182, 63801, 24258, 20476, 66531 #### [facility] [address] Lymphocytes (Bld) [#/Vol] 1.9 10*3/uL Normal 1.2-4.0 [facility] Comment on above: Order Comment: No: D o not add to previous draw Performed By: #### 0 0071, 17060, 81228, 27974, 56131, 28023 #### [facility] [address] [place] [address], [facility] Lymphocytes/100 WBC (Bld) 39.0 % Normal 20.0-45.0 [facility] Comment on above: Order Comment: No: D o not add to previous draw Performed By: #### 0 0071, 81657, 41404, 04938, 51880, 07739 #### [facility] [address] [place] [address], [facility] MCH (RBC) [Entitic mass] 29.9 pg Normal 27.0-33.0 [facility] Comment on above: Order Comment: No: D o not add to previous draw Performed By: #### 0 0071, 02729, 90797, 82825, 73880, 80487 #### [facility] [address] [place] [address], [facility] MCHC (RBC) [Mass/Vol] 33.1 g/dL Normal 32.0-35.0 [facility] Comment on above: Order Comment: No: D o not add to previous draw Performed By: #### 0 0071, 30428, 53750, 58504, 86945, 56648 #### [facility] [address] [facility] [address] MCV (RBC) [Entitic vol] 90.3 fL Normal 82.0-98.0 [facility] Comment on above: Order Comment: No: D o not add to previous draw Performed By: #### 0 0071, 70001, 69976, 32580, 34461, 43338 #### [facility] [address] [place] [address], [facility] Monocytes (Bld) [#/Vol] 0.7 10*3/uL Normal 0.1-1.0 [facility] Comment on above: Order Comment: No: D o not add to previous draw Performed By: #### 0 0071, 08829, 08780, 10620, 79642, 01775 #### [facility] [address] MONOS 14.8 % High 5.0-12.0 [facility] Comment on above: Order Comment: No: D o not add to previous draw Performed By: #### 0 0071, 41426, 17139, 88132, 00630, 13924 #### [facility] [address] [place] [address], [facility] Neutrophils/100 WBC (Bld) 44.2 % Normal 40.0-72.0 [facility] Comment on above: Order Comment: No: D o not add to previous draw Performed By: #### 0 0071, 38066, 00046, 11904, 02642, 59641 #### [facility] [address] [place] [address], [facility] Nucleated RBC/100 WBC (Bld) [Ratio] 0 % Normal 0-0 [facility] Comment on above: Order Comment: No: D o not add to previous draw Performed By: #### 0 0071, 18492, 30535, 32444, 86935, 82520 #### [facility] [address] [place] [address], [facility] PLAT CNT 178 10*3/uL Normal 150-400 [facility] Comment on above: Order Comment: No: D o not add to previous draw Performed By: #### 0 0071, 86581, 18583, 26876, 01054, 18814 #### [facility] [address] [facility] [place] [address], [facility] RBC (Bld) [#/Vol] 3.91 10*6/uL Normal 3.80-5.00 [facility] Comment on above: Order Comment: No: D o not add to previous draw Performed By: #### 0 0071, 10265, 81150, 31705, 90129, 84087 #### [facility] [address] [place] [address], [facility] WBC (Bld) [#/Vol] 4.92 10*3/uL Normal 4.00-10.60 [facility] Comment on above: Order Comment: No: D o not add to previous draw Performed By: #### 0 0071, 10869, 36915, 10118, 42722, 52935 #### [facility] [address] [place] [id number], [facility] POC GLUCOSE LABon 04-10-2018 Glucose [Mass/Vol] 245 mg/dL High 70-100 [facility] Comment on above: Performed By: #### 0 0071, 09676, 18976, 87299, 36927, 22550 #### [facility] [address] [place] [address], [facility] Glucose [Mass/Vol] 220 mg/dL High 70-100 [facility] Comment on above: Performed By: #### 0 0071, 29718, 46295, 23371, 89421, 44120 #### [facility] [address] [place] [address], [facility] PROTHROMBIN TIMEon 9 INR Coag (PPP) [Relative time] 1.84 {INR} High 0.91-1.16 [facility] Comment on above: Result Comment: ACCC [...] CHEST 1995;108:231S-246S. Performed By: #### 0 0071, 83175, 41434, 25954, 32971, 23979 #### [facility] [address] [place] [address], [place] PT Coag (PPP) [Time] 21.3 s High 12.3-14.8 [facility] Comment on above: Result Comment: ALL RESULTS MUST BE INTERPRETED WITH RESPECT TO BLOOD DRAWING ARTIFACT OR DILUTION ERROR OF ANTICOAGULANT AT THE TIME OF SAMPLING. Performed By: #### 0 0071, 94554, 88175, 00358, 57011, 57318 #### [facility] [address] [place] [address], [facility] BASIC METABOLIC PANELon 03-22 Calcium [Mass/Vol] 8.5 mg/dL Low 8.6-10.3 [facility] Comment on above: Order Comment: No: D o not add to previous draw Performed By: #### 0 0071, 39908, 45917, 21838, 73525, 66505 #### [facility] [address] [place] [address], [facility] Chloride [Moles/Vol] 104 mmol/L Normal 98-107 [facility] Comment on above: Order Comment: No: D o not add to previous draw Performed By: #### 0 0071, 97452, 07529, 24159, 64599, 47431 #### [facility] [address] [place] [address], [place] CO2 [Moles/Vol] 24 mmol/L Normal 21-31 [facility] Comment on above: Order Comment: No: D o not add to previous draw Performed By: #### 0 0071, 38377, 36078, 83085, 07289, 81209 #### [facility] [address] [place] [address], [facility] Creatinine [Mass/Vol] 0.90 mg/dL Normal 0.60-1.20 [facility] Comment on above: Order Comment: No: D o not add to previous draw Performed By: #### 0 0071, 08795, 71293, 69061, 98841, 46966 #### [facility] [address] [place] [address], [place] GFR/1.73 sq M predicted among blacks MDRD (S/P/Bld) [Vol rate/Area] mL/min/{1.73_m2} Normal >60 [facility] Comment on above: Order Comment: No: D o not add to previous draw Result Comment: Calc ulation may not be valid for patients over 70 years Performed By: #### 0 0071, 77421, 70642, 69463, 65711, 33090 #### [facility] [address] [place] [address], [facility] GFR/1.73 sq M predicted among non-blacks MDRD (S/P/Bld) [Vol rate/Area] mL/min/{1.73_m2} Normal >60 [facility] Comment on above: Order Comment: No: D o not add to previous draw Result Comment: Calc ulation may not be valid for patients over 70 years Performed By: #### 0 0071, 05847, 62887, 68742, 91506, 57502 #### [facility] [address] [place] [address], [facility] Glucose [Mass/Vol] 173 mg/dL High 70-100 [facility] Comment on above: Order Comment: No: D o not add to previous draw Performed By: #### 0 0071, 98411, 14636, 85653, 83847, 81423 #### [facility] [address] [place] [address], [facility] Potassium [Moles/Vol] 4.1 mmol/L Normal 3.5-5.1 [facility] Comment on above: Order Comment: No: D o not add to previous draw Performed By: #### 0 0071, 57871, 24486, 39985, 04381, 15299 #### [facility] [address] [place] [address], [place] Sodium [Moles/Vol] 136 mmol/L Normal 136-145 [facility] Comment on above: Order Comment: No: D o not add to previous draw Performed By: #### 0 0071, 49274, 50937, 02740, 01183, 19830 #### [facility] [address] [place] [address], [facility] Urea nitrogen [Mass/Vol] 21 mg/dL Normal 7-25 [facility] Comment on above: Order Comment: No: D o not add to previous draw Performed By: #### 0 0071, 17976, 70644, 53088, 53336, 18620 #### [facility] [address] [place] [id number], [facility] CBC COMPLETE BLOOD COUNTon 0 - Erythrocyte distribution width (RBC) [Ratio] 12.9 % Normal 11.5-15.0 [facility] Comment on above: Order Comment: No: D o not add to previous draw Performed By: #### 0 0071, 62410, 29321, 35578, 54112, 69046 #### [facility] [address] [place], [place] [address] [place] [address] Hematocrit (Bld) [Volume fraction] 35.1 % Low 36.0-45.0 [facility] Comment on above: Order Comment: No: D o not add to previous draw Performed By: #### 0 0071, 13760, 01370, 42070, 21574, 18696 #### [facility] [address] [place] [address], [facility] Hemoglobin (Bld) [Mass/Vol] 11.4 g/dL Low 12.0-15.0 [facility] Comment on above: Order Comment: No: D o not add to previous draw Performed By: #### 0 0071, 48010, 03340, 65305, 78488, 90092 #### [facility] [address] [place] [address], [facility] MCH (RBC) [Entitic mass] 29.8 pg Normal 27.0-33.0 [facility] Comment on above: Order Comment: No: D o not add to previous draw Performed By: #### 0 0071, 68217, 68210, 54405, 88486, 93395 #### [facility] [address] MCHC (RBC) [Mass/Vol] 32.5 g/dL Normal 32.0-35.0 [facility] Comment on above: Order Comment: No: D o not add to previous draw Performed By: #### 0 0071, 24390, 16184, 31786, 82959, 37452 #### [facility] [address] [facility] [place] [address], [facility] MCV (RBC) [Entitic vol] 91.9 fL Normal 82.0-98.0 [facility] Comment on above: Order Comment: No: D o not add to previous draw Performed By: #### 0 0071, 03704, 07306, 12050, 33761, 56565 #### [facility] [address] [facility] [place] [address], [facility] Nucleated RBC/100 WBC (Bld) [Ratio] 0 % Normal 0-0 [facility] Comment on above: Order Comment: No: D o not add to previous draw Performed By: #### 0 0071, 07880, 89971, 62158, 31501, 20320 #### [facility] [address] [place] [address], [facility] PLAT CNT 171 10*3/uL Normal 150-400 [facility] Comment on above: Order Comment: No: D o not add to previous draw Performed By: #### 0 0071, 11906, 35721, 90094, 89901, 08762 #### [facility] [address] [facility] [place] [address], [facility] RBC (Bld) [#/Vol] 3.82 10*6/uL Normal 3.80-5.00 [facility] Comment on above: Order Comment: No: D o not add to previous draw Performed By: #### 0 0071, 31338, 76632, 31632, 85645, 66175 #### [facility] [address] [facility] [place] [address], [facility] WBC (Bld) [#/Vol] 5.35 10*3/uL Normal 4.00-10.60 [facility] Comment on above: Order Comment: No: D o not add to previous draw Performed By: #### 0 0071, 69118, 57895, 91601, 27263, 96724 #### [facility] [address] [place] [address], [facility] Cardiovascular Lab Reporton 04-09-2018 Cardiovascular Lab Report [facility] Patient Name: Mohan Espinoza [facility] MR #: [id number] Physician: Jane Clark of [facility] Medicine Service Date: 04/08/2018 Division of Birthdate: 1935 Cardiology Room #: [id number] Adult Cardiovascular Services [facility] [address] [place] [address] Cardiovascular Laboratory Report CARDIAC CATHETERIZATION REPORT INDICATION: The patient is an 82-year-old woman with coronary artery disease status post bypass surgery in the past. She is admitted with a urinary tract infection and uze-KC-ktgzcql elevation myocardial infarction. She was referred for [...] signed informed consent. She was brought to laborer rags in a fasting state. The right groin area was prepped and draped in usual fashion. Using micropuncture technique, the right common femoral artery was accessed. The inner cannula was advanced and the right femoral angiography was performed followed by upsizing to a 6-Lebanese x 11 cm sheath. Bilateral selective coronary angiography was then performed using 6-Lebanese JL4 and JR4 diagnostic catheters. A 6-Lebanese AR2 diagnostic catheter was used to selectively engage the saphenous venous graft to the obtuse marginal branch and right coronary artery and the radial graft to the diagonal branch. Angiography was performed. Catheter was removed. A 6-Lebanese FRANCES diagnostic catheter was used to selectively engage the left subclavian artery and then selectively engage. The left internal mammary artery angiography was performed. Catheter was removed. Heparin was administered intravenously and therapeutic ACT confirmed during the procedure. A 6-Lebanese JR4 guiding catheter was advanced and used to engage the right coronary ostium. A Geosophic wire was advanced into the distal RCA, balloon angioplasty in the distal RCA was performed using Emerge 2.5 x 15 mm balloon inflated at 12 atmospheres. The balloon was brought backwards to the mid RCA and used to perform balloon angioplasty. Additional balloon dilatation was then performed using a NC Quantum Luray 2.5 x 8 mm balloon inflated at [...] 32 mm drug-eluting stent deployed in the xwxepael-ju-ksa RCA at 11 atmospheres. Following that, NC Quantum [place] 2.5 x 8 mm noncompliant balloon was advanced into the distal stent and used to perform postdilatation at 16 atmospheres followed by postdilatation using NC Quantum Luray 3.0 x 8 mm balloon inflated at 18 atmospheres in the distal stent of the mid segment followed by additional postdilatation using NC Quantum Luray 3.0 x 20 mm noncompliant balloon inflated at 18 atmospheres in the vosrmkea-tj-nrf segment stent. Intracoronary nitroglycerin 100 mcg was administered followed by final angiography, which showed excellent result with reduction of the stenosis to 0%. No evidence of dissection or perforation. The guiding catheter was removed. Procedure was concluded. The right femoral arteriotomy was managed with a 6-Lebanese Angio-Seal device with good hemostasis. She tolerated [...] throughout its course reaching 99% in the udauwcow-jj-yfm segment. Another lesion was 90% in the yae-pp-hmcsmh segment and then this was followed by [...] graft to the PDA). 3. A 99% uakiqriv-ga-eev, 90% mid, and 99% tom-ab-mioytw stenosis in the RCA, all reduced to [...] P/Jane Randolph M.D. Date Trans: 04/09/2018 06:33 Luna/alli [id number] cc: Romario Baker M.D. [address] [place] [address] Robert Tompkins M.D. [address] [place] [address] Normal [facility] MAGNESIUM BLOODon 04-09-2018 Magnesium [Mass/Vol] 1.6 mg/dL Low 1.9-2.7 [facility] Comment on above: Order Comment: No: D o not add to previous draw Performed By: #### 0 0071, 39835, 16742, 55996, 97232, 64402 #### [facility] [address] [facility] [place] [address], [facility] POC GLUCOSE LABon 04-09-2018 Glucose [Mass/Vol] 253 mg/dL High 70-100 [facility] Comment on above: Performed By: #### 0 0071, 91694, 70675, 35394, 01332, 24824 #### [facility] [address] [place] [address], [facility] Glucose [Mass/Vol] 161 mg/dL High 70-100 [facility] Comment on above: Performed By: #### 0 0071, 53366, 91809, 79782, 26378, 12604 #### [facility] [address] [place] [address], [facility] Glucose [Mass/Vol] 244 mg/dL High 70-100 [facility] Comment on above: Performed By: #### 0 0071, 56535, 80730, 11909, 50181, 97318 #### [facility] [address] [place] [address], [facility] Glucose [Mass/Vol] 175 mg/dL High 70-100 [facility] Comment on above: Performed By: #### 0 0071, 30284, 91875, 73491, 53565, 07054 #### [facility] [address] [place] [address], [facility] PROTHROMBIN TIMEon 9 INR Coag (PPP) [Relative time] 1.72 {INR} High 0.91-1.16 [facility] Comment on above: Result Comment: ACCC [...] CHEST 1995;108:231S-246S. Performed By: #### 0 0071, 81178, 25411, 73083, 10832, 47790 #### [facility] [address] [place] [address], [facility] PT Coag (PPP) [Time] 20.2 s High 12.3-14.8 [facility] Comment on above: Result Comment: ALL RESULTS MUST BE INTERPRETED WITH RESPECT TO BLOOD DRAWING ARTIFACT OR DILUTION ERROR OF ANTICOAGULANT AT THE TIME OF SAMPLING. Performed By: #### 0 0071, 00858, 97809, 91262, 61301, 40025 #### [facility] [address] [place] [address], [facility] BASIC METABOLIC PANELon 03-22 Calcium [Mass/Vol] 9.1 mg/dL Normal 8.6-10.3 [facility] Comment on above: Order Comment: No: D o not add to previous draw Performed By: #### 0 0071, 35666, 48202, 77093, 64965, 30733 #### [facility] [address] [place] [address], [facility] Chloride [Moles/Vol] 103 mmol/L Normal 98-107 [facility] Comment on above: Order Comment: No: D o not add to previous draw Performed By: #### 0 0071, 38727, 13364, 01284, 87946, 06467 #### [facility] [address] [place] [id number], [facility] CO2 [Moles/Vol] 24 mmol/L Normal 21-31 [facility] Comment on above: Order Comment: No: D o not add to previous draw Performed By: #### 0 0071, 41206, 05599, 70633, 25215, 68890 #### [facility] [address] [place] [address], [facility] Creatinine [Mass/Vol] 0.95 mg/dL Normal 0.60-1.20 [facility] Comment on above: Order Comment: No: D o not add to previous draw Performed By: #### 0 0071, 89601, 38400, 54749, 14375, 76367 #### [facility] [address] [place] [address], [place] GFR/1.73 sq M predicted among blacks MDRD (S/P/Bld) [Vol rate/Area] mL/min/{1.73_m2} Normal >60 [facility] Comment on above: Order Comment: No: D o not add to previous draw Result Comment: Calc ulation may not be valid for patients over 70 years Performed By: #### 0 0071, 11555, 01915, 30132, 01283, 81430 #### [facility] [address] [place] [address], [facility] GFR/1.73 sq M predicted among non-blacks MDRD (S/P/Bld) [Vol rate/Area] 56 ml/min/1.73sq m Abnormal >60 [facility] Comment on above: Order Comment: No: D o not add to previous draw Result Comment: Calc ulation may not be valid for patients over 70 years Performed By: #### 0 0071, 31036, 59557, 68046, 83678, 29048 #### [facility] [address] [place] [address], [facility] Glucose [Mass/Vol] 158 mg/dL High 70-100 [facility] Comment on above: Order Comment: No: D o not add to previous draw Performed By: #### 0 0071, 70063, 40444, 81921, 38272, 23750 #### [facility] [address] [place] [address], [place] Potassium [Moles/Vol] 4.3 mmol/L Normal 3.5-5.1 [facility] Comment on above: Order Comment: No: D o not add to previous draw Performed By: #### 0 0071, 05449, 86102, 11061, 43872, 27652 #### [facility] [address] [place] [address], [place] Sodium [Moles/Vol] 134 mmol/L Low 136-145 [facility] Comment on above: Order Comment: No: D o not add to previous draw Performed By: #### 0 0071, 82570, 97095, 05685, 61754, 77374 #### [facility] [address] [place] [address], [facility] Urea nitrogen [Mass/Vol] 24 mg/dL Normal 7-25 [facility] Comment on above: Order Comment: No: D o not add to previous draw Performed By: #### 0 0071, 22711, 29041, 46952, 81063, 12087 #### [facility] [address] CBC COMPLETE BLOOD COUNTon 0 - Erythrocyte distribution width (RBC) [Ratio] 13.0 % Normal 11.5-15.0 [facility] Comment on above: Order Comment: No: D o not add to previous draw Performed By: #### 0 0071, 18578, 75119, 92452, 34113, 54038 #### [facility] [address] [facility] [address] Hematocrit (Bld) [Volume fraction] 38.4 % Normal 36.0-45.0 [facility] Comment on above: Order Comment: No: D o not add to previous draw Performed By: #### 0 0071, 95278, 22012, 14627, 97299, 15990 #### [facility] [address] [facility] Hemoglobin (Bld) [Mass/Vol] 12.7 g/dL Normal 12.0-15.0 [facility] Comment on above: Order Comment: No: D o not add to previous draw Performed By: #### 0 0071, 72823, 97963, 50001, 95299, 70442 #### [facility] [address] [place] [id number], [facility] MCH (RBC) [Entitic mass] 30.4 pg Normal 27.0-33.0 [facility] Comment on above: Order Comment: No: D o not add to previous draw Performed By: #### 0 0071, 60730, 37663, 38489, 60426, 80322 #### [facility] [address] [place] [address], [facility] MCHC (RBC) [Mass/Vol] 33.1 g/dL Normal 32.0-35.0 [facility] Comment on above: Order Comment: No: D o not add to previous draw Performed By: #### 0 0071, 31218, 01618, 97575, 82711, 65262 #### [facility] [address] [place] [address], [facility] MCV (RBC) [Entitic vol] 91.9 fL Normal 82.0-98.0 [facility] Comment on above: Order Comment: No: D o not add to previous draw Performed By: #### 0 0071, 71680, 20576, 87906, 22852, 29532 #### [facility] [address] [facility] [address] Nucleated RBC/100 WBC (Bld) [Ratio] 0 % Normal 0-0 [facility] Comment on above: Order Comment: No: D o not add to previous draw Performed By: #### 0 0071, 80815, 24674, 37746, 31443, 74059 #### [facility] [address] [facility] [place] [address], [facility] PLAT CNT 164 10*3/uL Normal 150-400 [facility] Comment on above: Order Comment: No: D o not add to previous draw Performed By: #### 0 0071, 57217, 06311, 90821, 47576, 16439 #### [facility] [address] [facility] [place] [id number], [facility] RBC (Bld) [#/Vol] 4.18 10*6/uL Normal 3.80-5.00 [facility] Comment on above: Order Comment: No: D o not add to previous draw Performed By: #### 0 0071, 74952, 40181, 43379, 40291, 85105 #### [facility] [address] [facility] [place] [address], [facility] WBC (Bld) [#/Vol] 6.62 10*3/uL Normal 4.00-10.60 [facility] Comment on above: Order Comment: No: D o not add to previous draw Performed By: #### 0 0071, 59349, 79831, 95218, 55742, 83098 #### [facility] [address] [facility] [place] [address], [facility] MAGNESIUM BLOODon 04-08-2018 Magnesium [Mass/Vol] 1.9 mg/dL Normal 1.9-2.7 [facility] Comment on above: Order Comment: No: D o not add to previous draw Performed By: #### 0 0071, 15380, 27618, 77033, 97573, 58616 #### [facility] [address] [facility] [place] [address], [facility] POC GLUCOSE LABon 04-08-2018 Glucose [Mass/Vol] 199 mg/dL High 70-100 [facility] Comment on above: Performed By: #### 0 0071, 73795, 40083, 84802, 34491, 70669 #### [facility] [address] [place] [address], [facility] Glucose [Mass/Vol] 198 mg/dL High 70-100 [facility] Comment on above: Performed By: #### 0 0071, 20775, 75604, 69850, 21216, 77579 #### [facility] [address] [place] [address], [facility] Glucose [Mass/Vol] 155 mg/dL High 70-100 [facility] Comment on above: Performed By: #### 0 0071, 03546, 47328, 43613, 29867, 44240 #### [facility] [address] [facility] [place] [address], [facility] PROTHROMBIN TIMEon 9 INR Coag (PPP) [Relative time] 1.68 {INR} High 0.91-1.16 [facility] Comment on above: Result Comment: ACCC [...] CHEST 1995;108:231S-246S. Performed By: #### 0 0071, 23669, 38374, 87733, 78625, 40628 #### [facility] [address] PT Coag (PPP) [Time] 19.9 s High 12.3-14.8 [facility] Comment on above: Result Comment: ALL RESULTS MUST BE INTERPRETED WITH RESPECT TO BLOOD DRAWING ARTIFACT OR DILUTION ERROR OF ANTICOAGULANT AT THE TIME OF SAMPLING. Performed By: #### 0 0071, 91685, 04158, 46542, 23128, 24865 #### [facility] [address] *RAPID FLU AANDB BY MITCHELL Connor 04-07-2018 *RAPID FLU AANDB BY MOLECULAR Clinical Report: (D) Specimen: NASAL SWAB Collected: 04/06/2018 22:10 Status: Final Last Updated: 04/06/2018 23:10 FLUA RNA (Final) Negative FLUB RNA (Final) Negative Normal [facility] Comment on above: Performed By: #### 0 0071, 86481, 43906, 47396, 94650, 28667 #### [facility] [address] [place] [address], [facility] BASIC METABOLIC PANELon 03-22 Calcium [Mass/Vol] 8.3 mg/dL Low 8.6-10.3 [facility] Comment on above: Order Comment: No: D o not add to previous draw Performed By: #### 0 0071, 71808, 34662, 27428, 50441, 06602 #### [facility] [address] [place] [address], [facility] Chloride [Moles/Vol] 105 mmol/L Normal 98-107 [facility] Comment on above: Order Comment: No: D o not add to previous draw Performed By: #### 0 0071, 43267, 42412, 06384, 13215, 93816 #### [facility] [address] [place] [address], [facility] CO2 [Moles/Vol] 24 mmol/L Normal 21-31 [facility] Comment on above: Order Comment: No: D o not add to previous draw Performed By: #### 0 0071, 02595, 13086, 42649, 48748, 28669 #### [facility] [address] [place] [address], [facility] Creatinine [Mass/Vol] 1.24 mg/dL High 0.60-1.20 [facility] Comment on above: Order Comment: No: D o not add to previous draw Performed By: #### 0 0071, 45125, 15362, 85043, 30373, 83575 #### [facility] [address] [place] [address], [facility] GFR/1.73 sq M predicted among blacks MDRD (S/P/Bld) [Vol rate/Area] 50 ml/min/1.73sq m Abnormal >60 [facility] Comment on above: Order Comment: No: D o not add to previous draw Result Comment: Calc ulation may not be valid for patients over 70 years Performed By: #### 0 0071, 24871, 85326, 43617, 00851, 67675 #### [facility] [address] [place] [address], [facility] GFR/1.73 sq M predicted among non-blacks MDRD (S/P/Bld) [Vol rate/Area] 42 ml/min/1.73sq m Abnormal >60 [facility] Comment on above: Order Comment: No: D o not add to previous draw Result Comment: Calc ulation may not be valid for patients over 70 years Performed By: #### 0 0071, 76952, 69286, 14731, 60192, 52406 #### [facility] [address] [place] [address], [place] Glucose [Mass/Vol] 166 mg/dL High 70-100 [facility] Comment on above: Order Comment: No: D o not add to previous draw Performed By: #### 0 0071, 69430, 83812, 35701, 85182, 50599 #### [facility] [address] [place] [address], [place] Potassium [Moles/Vol] 4.2 mmol/L Normal 3.5-5.1 [facility] Comment on above: Order Comment: No: D o not add to previous draw Performed By: #### 0 0071, 04864, 95720, 51094, 53043, 96770 #### [facility] [address] [place] [address], [place] Sodium [Moles/Vol] 135 mmol/L Low 136-145 [facility] Comment on above: Order Comment: No: D o not add to previous draw Performed By: #### 0 0071, 74347, 27195, 93742, 90132, 68067 #### [facility] [address] [place] [address], [place] Urea nitrogen [Mass/Vol] 33 mg/dL High 7-25 [facility] Comment on above: Order Comment: No: D o not add to previous draw Performed By: #### 0 0071, 69385, 70185, 68173, 53682, 99370 #### [facility] [address] [place] [address], [facility] CBC W/DIFFon 04-07-2018 ABS BASOPHILS 0.1 10*3/uL Normal 0.0-0.2 [facility] Comment on above: Order Comment: No: D o not add to previous draw Performed By: #### 0 0071, 74557, 41141, 78574, 16120, 94380 #### [facility] [address] ABS IMM GRANS 0.1 10*3/uL Normal 0.0-0.2 [facility] Comment on above: Order Comment: No: D o not add to previous draw Performed By: #### 0 0071, 74021, 52134, 96357, 57094, 46580 #### [facility] [address] ABS NEUTROPHILS 6.4 10*3/uL Normal 1.6-7.6 [facility] Comment on above: Order Comment: No: D o not add to previous draw Performed By: #### 0 0071, 99289, 19203, 17344, 00141, 69442 #### [facility] [address] [place] [address], [facility] Basophils/100 WBC (Bld) 0.5 % Normal 0.0-1.0 [facility] Comment on above: Order Comment: No: D o not add to previous draw Performed By: #### 0 0071, 66280, 27428, 25874, 13570, 22821 #### [facility] [address] [place] [address], [facility] Eosinophils (Bld) [#/Vol] 0.0 10*3/uL Normal 0.0-0.5 [facility] Comment on above: Order Comment: No: D o not add to previous draw Performed By: #### 0 0071, 22813, 44234, 80202, 71708, 61328 #### [facility] [address] [place] [address], [facility] Eosinophils/100 WBC (Bld) 0.0 % Normal 0.0-6.0 [facility] Comment on above: Order Comment: No: D o not add to previous draw Performed By: #### 0 0071, 79731, 57086, 31908, 26026, 19709 #### [facility] [address] Erythrocyte distribution width (RBC) [Ratio] 13.2 % Normal 11.5-15.0 [facility] Comment on above: Order Comment: No: D o not add to previous draw Performed By: #### 0 0071, 37272, 82665, 24587, 24359, 29751 #### [facility] [address] Hematocrit (Bld) [Volume fraction] 35.0 % Low 36.0-45.0 [facility] Comment on above: Order Comment: No: D o not add to previous draw Performed By: #### 0 0071, 16145, 08683, 65866, 90722, 06500 #### [facility] [address] Hemoglobin (Bld) [Mass/Vol] 11.4 g/dL Low 12.0-15.0 [facility] Comment on above: Order Comment: No: D o not add to previous draw Performed By: #### 0 0071, 32036, 12097, 15065, 52377, 74147 #### [facility] [address] [place] [address], [facility] IMMATURE GRANS 0.5 % Normal 0.0-1.0 [facility] Comment on above: Order Comment: No: D o not add to previous draw Performed By: #### 0 0071, 35838, 81760, 52113, 73995, 17779 #### [facility] [address] [place] [address], [facility] Lymphocytes (Bld) [#/Vol] 2.1 10*3/uL Normal 1.2-4.0 [facility] Comment on above: Order Comment: No: D o not add to previous draw Performed By: #### 0 0071, 21767, 90779, 90572, 88177, 45116 #### [facility] [address] [place] [address], [facility] Lymphocytes/100 WBC (Bld) 21.7 % Normal 20.0-45.0 [facility] Comment on above: Order Comment: No: D o not add to previous draw Performed By: #### 0 0071, 06006, 74648, 65994, 52488, 58839 #### [facility] [address] [place] [address], [facility] MCH (RBC) [Entitic mass] 29.8 pg Normal 27.0-33.0 [facility] Comment on above: Order Comment: No: D o not add to previous draw Performed By: #### 0 0071, 93736, 31257, 55507, 37509, 69547 #### [facility] [address] [place] [address], [facility] MCHC (RBC) [Mass/Vol] 32.6 g/dL Normal 32.0-35.0 [facility] Comment on above: Order Comment: No: D o not add to previous draw Performed By: #### 0 0071, 48153, 90139, 55340, 16150, 95051 #### [facility] [address] [place] [address], [facility] MCV (RBC) [Entitic vol] 91.4 fL Normal 82.0-98.0 [facility] Comment on above: Order Comment: No: D o not add to previous draw Performed By: #### 0 0071, 46505, 08644, 31778, 81063, 45708 #### [facility] [address] [place] [address], [facility] Monocytes (Bld) [#/Vol] 1.0 10*3/uL Normal 0.1-1.0 [facility] Comment on above: Order Comment: No: D o not add to previous draw Performed By: #### 0 0071, 46108, 22445, 90653, 19631, 57459 #### [facility] [address] [place] [id number], [facility] MONOS 10.6 % Normal 5.0-12.0 [facility] Comment on above: Order Comment: No: D o not add to previous draw Performed By: #### 0 0071, 32499, 96124, 35064, 75715, 17395 #### [facility] [address] [place] [address], [facility] Neutrophils/100 WBC (Bld) 66.7 % Normal 40.0-72.0 [facility] Comment on above: Order Comment: No: D o not add to previous draw Performed By: #### 0 0071, 60089, 84569, 13977, 75077, 39315 #### [facility] [address] [facility] [place] [address], [facility] Nucleated RBC/100 WBC (Bld) [Ratio] 0 % Normal 0-0 [facility] Comment on above: Order Comment: No: D o not add to previous draw Performed By: #### 0 0071, 46395, 82301, 31774, 11926, 11699 #### [facility] [address] [place] [id number], [facility] PLAT CNT 150 10*3/uL Normal 150-400 [facility] Comment on above: Order Comment: No: D o not add to previous draw Performed By: #### 0 0071, 82231, 29868, 54756, 56030, 31979 #### [facility] [address] [place] [address], [facility] RBC (Bld) [#/Vol] 3.83 10*6/uL Normal 3.80-5.00 [facility] Comment on above: Order Comment: No: D o not add to previous draw Performed By: #### 0 0071, 22155, 93545, 38716, 98179, 28626 #### [facility] [address] [place] [address], [facility] WBC (Bld) [#/Vol] 9.53 10*3/uL Normal 4.00-10.60 [facility] Comment on above: Order Comment: No: D o not add to previous draw Performed By: #### 0 0071, 50576, 66738, 12330, 65811, 35191 #### [facility] [address] [place] [address], [facility] MAGNESIUM BLOODon 04-07-2018 Magnesium [Mass/Vol] 1.4 mg/dL Low 1.9-2.7 [facility] Comment on above: Order Comment: No: D o not add to previous draw Performed By: #### 0 0071, 96076, 58150, 24177, 91330, 72421 #### [facility] [address] [place] [address], [facility] PHOSPHORUS BLOODon 9 Phosphate [Mass/Vol] 2.6 mg/dL Normal 2.5-5.0 [facility] Comment on above: Order Comment: No: D o not add to previous draw Performed By: #### 0 0071, 03337, 02329, 73172, 13064, 48654 #### [facility] [address] [place] [address], [place] POC GLUCOSE LABon 04-07-2018 Glucose [Mass/Vol] 187 mg/dL High 70-100 [facility] Comment on above: Performed By: #### 0 0071, 76554, 40606, 30827, 40588, 39161 #### [facility] [address] [place] [address], [place] Glucose [Mass/Vol] 182 mg/dL High 70-100 [facility] Comment on above: Performed By: #### 0 0071, 23715, 02465, 26256, 67372, 40811 #### [facility] [address] [place] [address], [facility] Glucose [Mass/Vol] 156 mg/dL High 70-100 [facility] Comment on above: Performed By: #### 0 0071, 32383, 25157, 36509, 11778, 20258 #### [facility] [address] [place] [address], [facility] Glucose [Mass/Vol] 148 mg/dL High 70-100 [facility] Comment on above: Performed By: #### 0 0071, 43226, 05046, 71240, 85235, 51037 #### [facility] [address] [place] [address], [facility] PROTHROMBIN TIMEon 9 INR Coag (PPP) [Relative time] 1.65 {INR} High 0.91-1.16 [facility] Comment on above: Result Comment: ACCC [...] CHEST 1995;108:231S-246S. Performed By: #### 0 0071, 11494, 95074, 08268, 18692, 49904 #### [facility] [address] [place] [address], [place] PT Coag (PPP) [Time] 19.6 s High 12.3-14.8 [facility] Comment on above: Result Comment: ALL RESULTS MUST BE INTERPRETED WITH RESPECT TO BLOOD DRAWING ARTIFACT OR DILUTION ERROR OF ANTICOAGULANT AT THE TIME OF SAMPLING. Performed By: #### 0 0071, 16075, 75893, 61759, 73488, 60411 #### [facility] [address] [place] [address], [place] INR Coag (PPP) [Relative time] 1.68 {INR} High 0.91-1.16 [facility] Comment on above: Result Comment: ACCC [...] CHEST 1995;108:231S-246S. Performed By: #### 0 0071, 29001, 77510, 15916, 20678, 56783 #### [facility] [address] [place] [address], [place] PT Coag (PPP) [Time] 19.9 s High 12.3-14.8 [facility] Comment on above: Result Comment: ALL RESULTS MUST BE INTERPRETED WITH RESPECT TO BLOOD DRAWING ARTIFACT OR DILUTION ERROR OF ANTICOAGULANT AT THE TIME OF SAMPLING. Performed By: #### 0 0071, 78106, 09156, 67248, 66232, 45001 #### [facility] [address] TROPONIN-Ion 04-07-2018 Troponin I.cardiac [Mass/Vol] 0.15 ng/mL Critically high 0.00-0.04 [facility] Comment on above: Order Comment: No: D o not add to previous draw Result Comment: M-GA EVIOUS CRITICAL RESULT REFERENCE RANGES: 0.00 - 0.04 ng/ml NORMAL 0.05 - 0.50 ng/ml INDETERMINATE > 0.50 ng/ml CONSISTENT WITH AN M.I. Performed By: #### 0 0071, 97302, 44109, 85897, 80799, 00055 #### [facility] [address] Troponin I.cardiac [Mass/Vol] 0.17 ng/mL Critically high 0.00-0.04 [facility] Comment on above: Result Comment: M-GA EVIOUS CRITICAL RESULT REFERENCE RANGES: 0.00 - 0.04 ng/ml NORMAL 0.05 - 0.50 ng/ml INDETERMINATE > 0.50 ng/ml CONSISTENT WITH AN M.I. Performed By: #### 0 0071, 53923, 27692, 31916, 06053, 54833 #### [facility] [address] Troponin I.cardiac [Mass/Vol] 0.20 ng/mL Critically high 0.00-0.04 [facility] Comment on above: Order Comment: No: D o not add to previous draw Result Comment: M-GA EVIOUS CRITICAL RESULT REFERENCE RANGES: 0.00 - 0.04 ng/ml NORMAL 0.05 - 0.50 ng/ml INDETERMINATE > 0.50 ng/ml CONSISTENT WITH AN M.I. Performed By: #### 0 0071, 14298, 46227, 43826, 64377, 51600 #### [facility] [address] [place] [address], [place] URINALYSIS REFLEXon 04-07-19 19 Appearance (U) SL CLOUDY Abnormal CLEAR [facility] Comment on above: Order Comment: No: D o not add to previous draw Performed By: #### 0 0071, 40194, 98971, 39407, 50635, 58533 #### [facility] [address] [place] [address], [place] Bilirubin [Mass/Vol] Negative Normal NEGATIVE [facility] Comment on above: Order Comment: No: D o not add to previous draw Performed By: #### 0 0071, 67568, 99122, 79352, 94050, 48240 #### [facility] [address] [place] [address], [place] BLOOD Negative Normal NEGATIVE [facility] Comment on above: Order Comment: No: D o not add to previous draw Performed By: #### 0 0071, 18720, 88135, 75950, 15495, 33492 #### [facility] [address] [place] [address], [place] Color (U) YELLOW Normal YELLOW [facility] Comment on above: Order Comment: No: D o not add to previous draw Performed By: #### 0 0071, 03701, 64742, 57318, 16735, 95990 #### [facility] [address] [place] [address], [place] EPIS MANY Abnormal FEW,OCC,NONE SEEN [facility] Comment on above: Order Comment: No: D o not add to previous draw Performed By: #### 0 0071, 82098, 00254, 06966, 99482, 64835 #### [facility] [address] [place] [address], [place] Glucose [Mass/Vol] Negative Normal NEGATIVE [facility] Comment on above: Order Comment: No: D o not add to previous draw Performed By: #### 0 0071, 25795, 80631, 07425, 13371, 13361 #### [facility] [address] [place] [address], [facility] KETONE Negative Normal NEGATIVE [facility] Comment on above: Order Comment: No: D o not add to previous draw Performed By: #### 0 0071, 84685, 95047, 93397, 02568, 51023 #### [facility] [address] [place] [address], [facility] LEUK LIYAH MODERATE Abnormal NEGATIVE [facility] Comment on above: Order Comment: No: D o not add to previous draw Performed By: #### 0 0071, 32000, 87892, 01891, 30802, 32758 #### [facility] [address] [place] [address], [facility] Nitrite Ql (U) Negative Normal NEGATIVE [facility] Comment on above: Order Comment: No: D o not add to previous draw Performed By: #### 0 0071, 92725, 90914, 01606, 32934, 28316 #### [facility] [address] [place] [address], [facility] pH (Bld) 5.0 Normal 5.0-8.0 [facility] Comment on above: Order Comment: No: D o not add to previous draw Performed By: #### 0 0071, 67510, 49513, 40583, 10659, 76521 #### [facility] [address] [place] [address], [facility] Protein (U) [Mass/Vol] Negative Normal NEGATIVE [facility] Comment on above: Order Comment: No: D o not add to previous draw Performed By: #### 0 0071, 32931, 94389, 20406, 52155, 83969 #### [facility] [address] [place] [address], [facility] RBC (U) [#/Vol] 0-2 Abnormal NONE SEEN [facility] Comment on above: Order Comment: No: D o not add to previous draw Performed By: #### 0 0071, 56032, 23932, 63708, 35281, 93646 #### [facility] [address] [place] [address], [facility] SPEC GRAV 1.019 Normal 1.015-1.020 [facility] Comment on above: Order Comment: No: D o not add to previous draw Performed By: #### 0 0071, 36835, 31181, 99686, 06941, 27532 #### [facility] [address] [place] [address], [facility] WBC UA 11-20 Abnormal NONE SEEN [facility] Comment on above: Order Comment: No: D o not add to previous draw Performed By: #### 0 0071, 91514, 36199, 82282, 01286, 34308 #### [facility] [address] [facility] [place] [address], [facility] *A-LEGIONELLA AG URon 2018 DIRECT EXAM test. Normal [facility] Comment on above: Order Comment: No: D o not add to previous draw [place] Normal [facility] Comment on above: Order Comment: No: D o not add to previous draw REPORT STATUS FINAL 04/07/2018 Normal [facility] Comment on above: Order Comment: No: D o not add to previous draw *BLOOD CULTUREon 04-06-2018 Bacteria identified Cx Nom (Bld) Clinical Report: (D) Specimen: BLOOD CULTURE Collected: 04/06/2018 19:35 Status: Final Last Updated: 04/12/2018 07:54 (1) x 2 Prior to Antibiotic Administration CULT RES (Final) No Growth Day 5 Normal [facility] Comment on above: Order Comment: No: D o not add to previous draw Performed By: #### 0 0071, 97271, 84794, 48502, 11044, 71696 #### [facility] [address] [place] [address], [facility] Bacteria identified Cx Nom (Bld) Clinical Report: (D) Specimen: BLOOD CULTURE Collected: 04/06/2018 19:34 Status: Final Last Updated: 04/12/2018 07:54 (1) x 2 Prior to Antibiotic Administration CULT RES (Final) No Growth Day 5 Normal [facility] Comment on above: Order Comment: No: D o not add to previous draw Performed By: #### 0 0071, 01077, 97958, 96566, 67853, 92330 #### [facility] [address] [place] [address], [facility] BASIC METABOLIC PANELon 03-22 Calcium [Mass/Vol] 8.5 mg/dL Low 8.6-10.3 [facility] Comment on above: Order Comment: No: D o not add to previous draw Performed By: #### 0 0071, 45990, 15654, 66222, 15852, 05111 #### [facility] [address] [place] [address], [place] Chloride [Moles/Vol] 104 mmol/L Normal 98-107 [facility] Comment on above: Order Comment: No: D o not add to previous draw Performed By: #### 0 0071, 78803, 58338, 62366, 08015, 58115 #### [facility] [address] [place] [address], [place] CO2 [Moles/Vol] 22 mmol/L Normal 21-31 [facility] Comment on above: Order Comment: No: D o not add to previous draw Performed By: #### 0 0071, 16435, 36281, 24753, 93240, 09295 #### [facility] [address] [place] [address], [place] Creatinine [Mass/Vol] 1.41 mg/dL High 0.60-1.20 [facility] Comment on above: Order Comment: No: D o not add to previous draw Performed By: #### 0 0071, 12698, 91329, 25501, 55378, 02724 #### [facility] [address] [place] [address], [place] GFR/1.73 sq M predicted among blacks MDRD (S/P/Bld) [Vol rate/Area] 44 ml/min/1.73sq m Abnormal >60 [facility] Comment on above: Order Comment: No: D o not add to previous draw Result Comment: Calc ulation may not be valid for patients over 70 years Performed By: #### [id number], [id number] #### [facility] [address] [place] [address], [facility] GFR/1.73 sq M predicted among non-blacks MDRD (S/P/Bld) [Vol rate/Area] 36 ml/min/1.73sq m Abnormal >60 [facility] Comment on above: Order Comment: No: D o not add to previous draw Result Comment: Calc ulation may not be valid for patients over 70 years Performed By: #### 0 0071, 46212, 96373, 28672, 37839, 72371 #### [facility] [address] [place] [address], [facility] Glucose [Mass/Vol] 198 mg/dL High 70-100 [facility] Comment on above: Order Comment: No: D o not add to previous draw Performed By: #### 0 0071, 68510, 21163, 67768, 76472, 73835 #### [facility] [address] [place] [address], [place] Potassium [Moles/Vol] 4.7 mmol/L Normal 3.5-5.1 [facility] Comment on above: Order Comment: No: D o not add to previous draw Performed By: #### 0 0071, 44862, 43637, 94193, 57312, 19387 #### [facility] [address] [place] [address], [place] Sodium [Moles/Vol] 135 mmol/L Low 136-145 [facility] Comment on above: Order Comment: No: D o not add to previous draw Performed By: #### 0 0071, 89750, 96802, 09811, 56434, 66445 #### [facility] [address] [place] [address], [facility] Urea nitrogen [Mass/Vol] 34 mg/dL High 7-25 [facility] Comment on above: Order Comment: No: D o not add to previous draw Performed By: #### 0 0071, 02189, 69503, 83061, 96536, 62654 #### [facility] [address] [place] [address], [facility] CBC W/DIFFon 04-06-2018 ABS BASOPHILS 0.1 10*3/uL Normal 0.0-0.2 [facility] Comment on above: Performed By: #### 5 0103 #### [facility] [address] ABS IMM GRANS 0.1 10*3/uL Normal 0.0-0.2 [facility] Comment on above: Performed By: #### 5 0103 #### [facility] [address] [place] [address], [facility] ABS NEUTROPHILS 11.3 10*3/uL High 1.6-7.6 [facility] Comment on above: Performed By: #### 5 0103 #### [facility] [address] [place] [address], [facility] Basophils/100 WBC (Bld) 0.3 % Normal 0.0-1.0 [facility] Comment on above: Performed By: #### 5 0103 #### [facility] [address] [place] [address], [facility] Eosinophils (Bld) [#/Vol] 0.0 10*3/uL Normal 0.0-0.5 [facility] Comment on above: Performed By: #### 5 3 #### [facility] [address] [place] [address], [facility] Eosinophils/100 WBC (Bld) 0.0 % Normal 0.0-6.0 [facility] Comment on above: Performed By: #### 5 0103 #### [facility] [address] Erythrocyte distribution width (RBC) [Ratio] 13.1 % Normal 11.5-15.0 [facility] Comment on above: Performed By: #### 5 0103 #### [facility] [address] Hematocrit (Bld) [Volume fraction] 38.9 % Normal 36.0-45.0 [facility] Comment on above: Performed By: #### 5 0103 #### [facility] [address] Hemoglobin (Bld) [Mass/Vol] 12.7 g/dL Normal 12.0-15.0 [facility] Comment on above: Performed By: #### 5 0103 #### [facility] [address] IMMATURE GRANS 0.3 % Normal 0.0-1.0 [facility] Comment on above: Performed By: #### 5 0103 #### [facility] [address] Lymphocytes (Bld) [#/Vol] 1.8 10*3/uL Normal 1.2-4.0 [facility] Comment on above: Performed By: #### 5 3 #### [facility] [address] Lymphocytes/100 WBC (Bld) 12.2 % Low 20.0-45.0 [facility] Comment on above: Performed By: #### 5 3 #### [facility] [address] [facility] [place] [address], [facility] MCH (RBC) [Entitic mass] 30.5 pg Normal 27.0-33.0 [facility] Comment on above: Performed By: #### 5 3 #### [facility] [address] [facility] [place] [address], [facility] MCHC (RBC) [Mass/Vol] 32.6 g/dL Normal 32.0-35.0 [facility] Comment on above: Performed By: #### 5 3 #### [facility] [address] [facility] [place] [address], [facility] MCV (RBC) [Entitic vol] 93.3 fL Normal 82.0-98.0 [facility] Comment on above: Performed By: #### 5 102 #### [facility] [address] [place] [address], [facility] Monocytes (Bld) [#/Vol] 1.2 10*3/uL High 0.1-1.0 [facility] Comment on above: Performed By: #### 5 3 #### [facility] [address] [facility] MONOS 8.4 % Normal 5.0-12.0 [facility] Comment on above: Performed By: #### 5 102 #### [facility] [address] [facility] Neutrophils/100 WBC (Bld) 78.8 % High 40.0-72.0 [facility] Comment on above: Performed By: #### 3 #### [facility] [address] [facility] [place] [address], [facility] Nucleated RBC/100 WBC (Bld) [Ratio] 0 % Normal 0-0 [facility] Comment on above: Performed By: #### 5 3 #### [facility] [address] [place] [address], [facility] PLAT CNT 156 10*3/uL Normal 150-400 [facility] Comment on above: Performed By: #### 5 102 #### [facility] [address] [place] [address], [facility] RBC (Bld) [#/Vol] 4.17 10*6/uL Normal 3.80-5.00 [facility] Comment on above: Performed By: #### 5 0103 #### [facility] [address] [facility] [place] [address], [facility] WBC (Bld) [#/Vol] 14.33 10*3/uL High 4.00-10.60 [facility] Comment on above: Performed By: #### 5 0103 #### [facility] [address] [place] [address], [facility] CHEST AND LATERALon 04-06-19 CHEST AND LATERAL [facility] Department of Radiology [address] [place] [address] [phone] Patient Name: MOHAN ESPINOZA : 1935 Sex: F Age: Race: White Pt. Location: [id number] Patient Status: I Ordered Date: 04/06/2018 6:20:00 [...] findings. Electronically signed by:Ronna Villalobos. Transcribed by: [email or web address], User Resident: MURTAZA VILLAGRAN Electronically Signed by: RONNA VILLALOBOS @ 04/07/2018 09:13 AM I personally read this/these film(s) with this resident Normal [facility] Comment on above: Order Comment: No: D o not add to previous draw DIGOXINon 04-06-2018 Digoxin [Mass/Vol] 0.7 ng/mL Normal 0.7-2.0 [facility] Comment on above: Performed By: #### 0 0071, 16645, 29568, 46319, 27316, 46166 #### [facility] [address] [place] [address], [facility] LIVER BATTERYon 04-06-2018 Albumin [Mass/Vol] 3.4 g/dL Low 3.5-5.7 [facility] Comment on above: Order Comment: No: D o not add to previous draw Performed By: #### 0 0071, 68898, 44833, 59843, 47016, 14112 #### [facility] [address] [facility] [place] [address], [facility] ALKALINE PHOSPH 50 IU/L Normal 34-104 [facility] Comment on above: Order Comment: No: D o not add to previous draw Performed By: #### 0 0071, 25386, 89767, 04876, 04072, 20948 #### [facility] [address] [place] [address], [place] ALT [Catalytic activity/Vol] 16 U/L Normal 7-52 [facility] Comment on above: Order Comment: No: D o not add to previous draw Performed By: #### 0 0071, 88352, 72134, 26618, 74011, 98656 #### [facility] [address] [place] [address], [place] AST [Catalytic activity/Vol] 17 U/L Normal 13-39 [facility] Comment on above: Order Comment: No: D o not add to previous draw Performed By: #### 0 0071, 94030, 19262, 39128, 84927, 58326 #### [facility] [address] [place] [address], [place] Bilirubin [Mass/Vol] 0.5 mg/dL Normal 0.3-1.0 [facility] Comment on above: Order Comment: No: D o not add to previous draw Performed By: #### 0 0071, 32962, 44309, 53999, 92831, 84628 #### [facility] [address] [place] [address], [place] Bilirubin.direct [Mass/Vol] 0.1 mg/dL Normal 0.0-0.2 [facility] Comment on above: Order Comment: No: D o not add to previous draw Performed By: #### 0 0071, 97489, 25896, 52556, 44463, 56462 #### [facility] [address] [place] [address], [place] Protein [Mass/Vol] 6.2 g/dL Normal 6.0-8.3 [facility] Comment on above: Order Comment: No: D o not add to previous draw Performed By: #### 0 0071, 58028, 46978, 82885, 80658, 93454 #### [facility] [address] [place] [address], [facility] MAGNESIUM BLOODon 04-06-2018 Magnesium [Mass/Vol] 1.3 mg/dL Low 1.9-2.7 [facility] Comment on above: Order Comment: No: D o not add to previous draw Performed By: #### 0 0071, 10267, 63714, 92930, 39639, 35718 #### [facility] [address] [place] [address], [facility] PHOSPHORUS BLOODon 9 Phosphate [Mass/Vol] 2.6 mg/dL Normal 2.5-5.0 [facility] Comment on above: Order Comment: No: D o not add to previous draw Performed By: #### 0 0071, 16635, 92712, 14181, 99549, 38613 #### [facility] [address] [place] [address], [facility] POC GLUCOSE LABon 04-06-2018 Glucose [Mass/Vol] 172 mg/dL High 70-100 [facility] Comment on above: Performed By: #### 8 5499 #### [facility] [address] [place] [address], [facility] PROCALCITONINon 04-06-2018 PROCALCITONIN 2.61 ng/mL Critically high 0.00-0.10 [facility] Comment on above: Order Comment: Yes: [...] 2034 Performed By: #### 3 1488 #### [facility] [address] [facility] SEPSIS LACTATE W/REFLEXon Lactate [Moles/Vol] 1.4 mmol/L Normal 0.5-2.2 [facility] Comment on above: Order Comment: No: D o not add to previous draw Performed By: #### 3 1414 #### [facility] [address] [facility] [place] [address], [facility] TROPONIN-Ion 04-06-2018 Troponin I.cardiac [Mass/Vol] 0.23 ng/mL Critically high 0.00-0.04 [facility] Comment on above: Order Comment: No: D o not add to previous draw 1756- PATIENT DOES NOT HAVE I.D. BAND YET -TECH BM 1824- NO I.D. BAND YET -TECH GC Result Comment: M-CR ITICAL RESULT(S) REVIEWED, CALLED TO AND READ BACK BY LAURA VITAL RN AT 210 REFERENCE RANGES: 0.00 - 0.04 ng/ml NORMAL 0.05 - 0.50 ng/ml INDETERMINATE > 0.50 ng/ml CONSISTENT WITH AN M.I. Performed By: #### 0 0071, 32526, 96609, 81046, 97739, 62698 #### [facility] [address] [place] [address], [facility] CRPon 11-05-2017 CRP mass conc 4.0 mg/dL High <=1.9 [facility] Comment on above: Performed By: #### 2 [id number] ####[facility] [address] [place] [address] Vital Signs Date Time Vital Sign Value Performing Clinician Facility 07-01-2022 09:34-0400 Body height 172.72 cm Shaikh Caronesme Work Phone: [facility] [address] DO Work Phone: 07-01-2022 09:34-0400 Body mass index (BMI) [Ratio] Patient Reason Not Done Shaikh Birgitluis Work Phone: [facility] DO Work Phone: 07-01-2022 09:34-0400 Diastolic blood pressure 66 mm[Hg] Shaikh Marion Work Phone: [facility] DO Work Phone: 07-01-2022 09:34-0400 Heart rate 68 /min Shaikh Caronwaandie Work Phone: [facility] DO Work Phone: 07-01-2022 09:34-0400 Systolic blood pressure 106 mm[Hg] Shaikh Marion Work Phone: [facility] DO Work Phone: 07-01-2022 09:34-0400 16 1 Goodmandy Reardonwad Work Phone: [facility] DO Work Phone: Comment on above: PHQ-9 TS 06-23-2022 11:26-0400 Body temperature 97.4 [degF] MD Shaikh Schultz Work Phone: [facility] 06-23-2022 11:26-0400 Diastolic blood pressure 69 mm[Hg] MD Shaikh Schultz Work Phone: [facility] 06-23-2022 11:26-0400 Heart rate 100 /min MD Shaikh Schultz Work Phone: [facility] 06-23-2022 11:26-0400 Respiratory rate 18 /min MD Shaikh Schultz Work Phone: [facility] 06-23-2022 11:26-0400 SaO2% (BldA) [Mass fraction] 96 % MD Shaikh Schultz Work Phone: [facility] 06-23-2022 11:26-0400 Systolic blood pressure 123 mm[Hg] MD Shaikh Schultz Work Phone: [facility] 06-23-2022 08:03-0400 Inhaled oxygen flow rate 1 L/min MD Shaikh Schultz Work Phone: [facility] 06-23-2022 06:00-0400 Body weight 136.4 kg MD Shaikh Schultz Work Phone: [facility] 06-22-2022 14:39-0400 Body height 172.72 cm MD Shaikh Schultz Work Phone: [facility] 06-22-2022 00:00-0400 45 1 Shaikh Marion Work Phone: [facility] DO Work Phone: Comment on above: [id number] Encounters Encounter Date Encounter Type Care Provider Facility Start: 10-25-2023 End: 10-25-2023 ambulatory EMILIE FAIR Not Available Start: 10-19-2023 End: 10-19-2023 ambulatory JOSELUIS [facility] Start: 04-12-2023 End: 04-12-2023 ambulatory SHAIKH MARION Not Available Start: 09-30-[address] Joseluis quigley Johnson Facility: Start: 09-11-2022 Rx Renewal Shaikh Marino Work Phone: [facility] DO Work Phone: Start: 07-27-2022 ambulatory JOSELUIS CASEY Facilit y:[id number] Start: 07-23-2022 ambulatory JOSELUIS CASEY Facilit y:[id number] Start: 07-01-2022 Office outpatient visit 40 minutes Shaikh Marion Work Phone: [facility] DO Work Phone: Start: 07-01-[address] Shaikh Schultz Facil ity: Start: 06-29-2022 End: 06-29-2022 ambulatory MD Shaikh Schultz Work Phone: [facility] Work Phone: Start: 06-29-2022 End: 06-29-2022 Departed Referred MD Shaikh Schultz Work Phone: [facility] Work Phone: Start: 06-23-[address] Joseluis Casey Facility:[id number] Start: 06-22-[address] Joseluis Casey Fac ility:[id number] Start: 06-22-2022 End: 06-23-2022 Evaluation and management of inpatient Toi Johnson Facility:[facility] Start: 06-22-2022 End: 06-23-2022 Evaluation and management of inpatient MD Shaikh Schultz Work Phone: [facility] Work Phone: Start: 06-22-[address] Joseluis Casey Facility:[id number] Start: 06-21-2022 End: 06-22-[address] JAYY Hinojosa Facility:H1 Start: 12-29-2021 End: 12-30-2021 ambulatory SHAIKH Guillermo SCHULTZ Facility:H1 Start: 09-29-2021 End: 09-30-2021 ambulatory SHAIKH Guillermo SCHULTZ Facility: Start: 06-30-2021 End: 07-01-2021 ambulatory SHAIKH Guillermo SCHULTZ Facility: Start: 04-06-2018 End: 04-10-2018 Evaluation and management of inpatient DAVE MACDONALD Facility:[facility] Start: 11-05-2017 End: 11-06-2017 Patient encounter aDrrian Benton [facility] Procedures Date Procedure Procedure Detail Performing Clinician Start: 03-22-2019 Total colonoscopy Elver h Marion Work Phone: Start: 04-08-2018 DILATION OF 1 COR AR T WITH 3 DRUG-ELUT, PERC APPROACH JANE Carie MOUKARBEL Start: 04-08-2018 FLUOROSCOPY OF L INT MAMM GRAFT USING OTH CONTRAST JANE Darnell MOUKARBEL Start: 04-08-2018 FLUOROSCOPY OF MULT COR A GRAFT USING OTH CONTRAST JANE Carie MOUKARBEL Start: 04-08-2018 FLUOROSCOPY OF MULTI PLE CORONARY ARTERIES USING OTH CONTRAST JANE Darnell MOUKARBEL Appendectomy Shaikh Marion Work Phone: History of coronary artery bypass grafting History of coronary artery bypass graft Shaikh Marion Work Phone: History of placement of stent for coronary artery disease History of heart artery stent MD Shaikh Schultz Work Phone: Insertion of inferio r vena caval filter Shaikh Marion Work Phone: Plan of Treatment Date Care Activity Detail Author Start: 09-30-2022 FUV, Provider: Joseluis Casey, Status: Pen, Time: 9:20 AM FUV, Provider: Joseluis Casey, Status: Pen, Time: 9:20 AM [facility] DO Work Phone: Start: 07-27-2022 REST ONLY, Provider: AQUILINO PAYNEI NUCLEAR 01,[id number], Status: Pen, Time: 1:00 PM REST ONLY, Provider: AQUILINO PAYNEI NUCLEAR 01,[id number], Status: Pen, Time: 1:00 PM [facility] DO Work Phone: Start: 07-23-2022 STRESSNUC2, Provider : AQUILINO HHVI NUCLEAR 01,[id number], Status: Pen, Time: 1:00 PM STRESSNUC2, Provider: AQUILINO HHVI NUCLEAR 01,[id number], Status: Pen, Time: 1:00 PM [facility] 250 DO Work Phone: Start: 06-23-2022 [facility] Start: 06-22-2022 Hospital admission [facility] Blood chemistry [facility] Patient Education Heart Failure, Adult (DC) [facility] Work Phone: Patient referral [facility] Work Phone: [facility] Immunizations Immunization Date Immunization Notes Care Provider Birgit peñaloza 01-21-2021 Moderna COVID-19 Vac cine 100 MCG/0.5ML Intramuscular Suspension Shaikh Marion Work Phone: [facility] 250 DO Work Phone: 12-31-2020 Seasonal trivalent influenza vaccine, adjuvanted, preservative free Shaikh Marion Work Phone: [facility] 250 DO Work Phone: 05-21-2020 Moderna COVID-19 Vac cine 100 MCG/0.5ML Intramuscular Suspension Shaikh Marion Work Phone: [facility] 250 DO Work Phone: 04-23-2020 Moderna COVID-19 Vac cine 100 MCG/0.5ML Intramuscular Suspension Good Birgitwwad Work Phone: [facility] 250 DO Work Phone: 12-28-2019 Seasonal trivalent influenza vaccine, adjuvanted, preservative free Good Fawwad Work Phone: [facility] 250 DO Work Phone: 01-18-2019 Seasonal trivalent influenza vaccine, adjuvanted, preservative free Good [place] Work Phone: [place] [address] DO Work Phone: 02-01-2018 Seasonal trivalent influenza vaccine, adjuvanted, preservative free [facility] [place] Work Phone: [place] [address] DO Work Phone: 01-07-2017 Seasonal trivalent influenza vaccine, adjuvanted, preservative free Good [place] Work Phone: [place] [address] DO Work Phone: 02-26-2014 influenza, injectabl e, quadrivalent, contains preservative [facility] [place] Work Phone: [place] [address] DO Work Phone: 12-26-2012 influenza, seasonal, injectable Good [place] Work Phone: [place] [address] DO Work Phone: 03-22-2002 pneumococcal polysaccharide vaccine, 23 valent [facility] [place] Work Phone: [place] [address] DO Work Phone: Comment on above: Series: Payers Date Payer Category Payer Self-pay [id number] 1957 Medicare [id number] 3ff [id number] 1957 Unknown [id number] 1935 Unknown [id number] 2.16.8 40.1.153839.3.579.2.647 1935 Unknown [id number] 2.16.84 0.1.946533.3.579.2.593 1935 Unknown [id number] 2.16.84 0.1.365581.3.579.2.593 1935 Unknown [id number] 2.16.84 0.1.082726.3.579.2.593 1935 Unknown [id number] 2.16.84 0.1.123200.3.579.2.593 1937 Unknown [id number] 2.16.8 40.1.117792.3.579.2.1068 1937 Unknown [id number] 2.16.8 40.1.633572.3.579.2.1068 1937 Unknown [id number] 2.16. 840.1.823554.3.579.2.356 1937 Unknown [id number] 2.. 840.1.001891.3.579.2.356 1935 Unknown [id number] 2.. 840.1.511369.3.579.2.356 1937 Unknown [id number] 2.. 840.1.804334.3.579.2.356 1937 Unknown [id number] 2.. 840.1.008564.3.579.2.356 1937 Unknown [id number] 2.16.8 40.1.216510.3.579.2.1244 1937 Unknown [id number] 2.16.84 0.1.499960.3.579.2.1259 1935 Unknown [id number] 2.16.84 0.1.371504.3.579.2.1259 Medicare [id number] Unknown Unknown [id number] 2.16.8 40.1.429686.3.579.2.531 Unknown [id number] 2.16.8 40.1.342369.3.579.2.531 Social History Date Type Detail Facility Start: 06-22-2022 Tobacco smoking stat us NHIS Ex-smoker (finding) [facility] Start: 1935 Sex Assigned At Female F [facility] Caffeine use Caffeine use -[facility] DO Work Phone: Comment on above: 2.5 cups coffee in m orning; Goals Date Patient Goal Desired Activity /State Functional Status Date Assessment Result Facility 06-23-2022 Functional status Patient at Baseline [facility] Work Phone: Mental Status Date Assessment Result Facility 06-23-2022 Cognitive function Cognitive Sta tus Patient at Baseline [facility] Work Phone: Progress note 06-23-2022 Note Date & Type Note Facility 06-23-2022 Progress note Note Date/Time June 23, 2022 12:11pm [facility] ENTER [address] [place] [address] Hospitalist Progress Note Signed Patient: Mohan Espinoza MR#: [id number] : 1935 Acct:[id number] Age/Sex: 86 / F Adm Date: 3 Loc: Room: [address] [place] [address] Type: ADM IN Attending Dr: Brissa Hoffman [...] Dose Route Start Last Admin Trade Name Carly PRN Reason Stop Dose Admin Acetaminophen 650 [...] Tablet PO 06/22/23 08:59 Not Given DAILY [facility] Metoprolol Succinate 150 mg 06/24/22 09:00 Metoprolol Succinate 50 Mg Tab.Er.24h PO 06/24/23 08:59 DAILY [facility] Rivaroxaban 15 mg 06/22/22 17:00 06/22/22 17:00 [...] <Electronically signed by Brissa Hoffman MD> 06/23/22 8294 [facility] Work Phone: Hospital Discharge instructions 06-23-2022 Note Date & Type Note Facility 06-23-2022 Hospital Discharg e instructions Ambulatory OrdersInitiate Home Health Time Frame: 06/23/22, Location: Determined By Patient Additional Instructions Please call and schedule an appointment with your established Carpenter Supervisor Wooden Ship. HOME HEALTH TO MANAGE: Nursing/PT to eval and treat Monitor VS per protocol Monitor Cardiovascular assessment--Elevated troponin, CAD, HTN Please draw a BMP in 5 days, Send to Dr. Schultz Assist with medication management and provide medication education Assist with glucose control Provide education on high risk fall precautions [facility] Work Phone: Progress note 06-23-2022 Note Date & Type Note Facility 06-23-2022 Progress note Note Date/Time June 23, 2022 9:56 am [facility] ENTER [address] [place] [address] Cardiology Progress Note Signed Patient: Mohan Espinoza MR#: [id number] : 1935 Acct:[id number] Age/Sex: 86 / F Adm Date: 3 Loc: Room: [address] [place] [address] Type: ADM IN Attending Dr: Brissa Hoffman [...] above, to follow-up with Dr. Randolph in [place], for further evaluation and management Exam Physical [...] Acute (8) Chronic anticoagulation: Code(s): Z79.01 - [facility] (current) use of anticoagulants Status: Acute (9) Factor V Leiden: Code(s): D68.51 - Activated protein C resistance Status: Acute Documented By: Sharron Casey DO 06/23/22 0952 Signed By: <Electronically signed by Sharron Casey DO> 06/23/22 0956 [facility] Work Phone: Progress note 06-22-2022 Note Date & Type Note Facility 06-22-2022 Progress note Note Date/Time June 22, 2022 2:12pm [facility] [facility] [address] [place] [address] Hospitalist Progress Note Signed Patient: Mohan Espinoza MR#: [id number] : 1935 Acct:[id number] Age/Sex: 86 / F Adm Date: 3 Loc: 4 Room: [address] [place] [address] Type: ADM IN Attending Dr: Brissa Hoffman [...] Tablet PO 06/22/23 08:59 Not Given DAILY [facility] Metoprolol Succinate 100 mg 06/22/22 09:00 06/22/22 09:08 Metoprolol Succinate 100 Mg Tab.Er.24h PO 06/22/23 08:59 Not Given DAILY [facility] Rivaroxaban 15 mg 06/22/22 17:00 Rivaroxaban 15 Mg Tablet PO 06/22/23 16:59 DAILY@17 [facility] A&P - Hospitalist Assessment/Plan (1) Elevated troponin: [...] 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 DVT/PE: [place] filter in place Gout: Continue home meds DVT prophylaxis: Home Xarelto, SCD CODE STATUS: Full code Documented By: Brissa Hoffman MD 06/22/22 1411 Signed By: <Electronically signed by Brissa Hoffman MD> 06/22/22 1414 [facility] Work Phone: Consult note 06-22-2022 Note Date & Type Note Facility 06-22-2022 Consult note Note Date/Time June 22, 2022 11:40am [facility] [address] [place], [place] [id number] Cardiology Consult Note Signed Patient: Mohan Espinoza MR#: [id number] : 1935 Acct:[id number] Age/Sex: 86 / F Adm Date: 3 Loc: 4P Room: 1E6485-1 Type: ADM IN Attending Dr: Brissa Hoffman MD Copies to: MD Shaikh Marion Vidal MD W Scott Sheldon, DO~ Cardiology HPI History of Present Illness Consult Date: 06/22/22 Reason for Consult: Elevated cardiac biomarkers, atrial fibrillation, ASHD HPI: Ms. Espinoza is a 86 year old female seen in cardiology consultation at the request of hospitalist after patient was transferred from [facility] emergency room with elevated cardiac biomarkers. She presented with symptoms of UTI, bodyaches, lower extremity weakness, rigors; very similar to symptoms she has had before with urinary tract infections. She did not complaining of any shortness of breath or chest discomfort, she was complaining of lower abdominal discomfort as well. In [facility] ER, her initial high-sensitivity troponins came back elevated at 100, serum creatinine 1.8, ECG consistent with controlled atrial fibrillation. There were initial attempts to transfer her to [facility] with her primary casting house worker Dr. Randolph. They were unable to accept her immediately, there was some concern in the ER that she could not be admitted to [facility] (? 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 History of open heart surgery x4 [...] x10E3/uL Lymph # (Auto) 1.4 (1.00-4.8) x10E3/uL [place] # (Auto) 0.9 H (0.0-0.8) x10E3/uL Eos [...] signed by Sharron Casey DO> 06/22/22 1249 [facility] Work Phone: History and physical note 06-22-2022 Note Date & Type Note Facility 06-22-2022 History and physi taiwo note Note Date/Time June 22, 2022 4:22am [facility] [address] [place] [address] Hospitalist H&P Signed Patient: Mohan Espinoza MR#: [id number] : 1935 Acct:[id number] Age/Sex: 86 / F Adm Date: 3 Loc: Room: [address] [place] [address] Type: ADM IN Attending Dr: Toi Johnson [...] stent March 2018- [address] 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 I reviewed her history and performed sarabia elements of exam and formulated the plan of care and confirmed the resident's note above. Patient transferred here to [facility] due to elevated troponin and her significant [...] signed by DO FLAQUITA Cano> 06/22/22 0614 [facility] Work Phone: Evaluation note Note Date [...] open heart surgery acute HTN (hypertension) acute [facility] Work Phone: Summary Purpose Family History [...] 2019 7:25pm Hospital Course Note MR#: [id number] [facility] Pt. Name: Mohan Espinoza Admitted: 04/06/2018 Discharged: [...] as above, the patient was seen in [facility] after she was feeling weak for 1 day. In [facility], she was found to have a temperature [...] heart surgery HTN (hypertension) Chief Complaint * [facility] D/C 06/23/22. * 86-year-old female returns for [...] myself withsimilar presentation and atrial fibrillation in 2020, she remains in atrial fibrillation currently and [...] section and content) DATE CREATED AUTHOR 11/06/2017 [facility] DATE CREATED AUTHOR AUTHOR'S ORGANIZ ATION 04/04/2019 [facility] DATE CREATED AUTHOR AUTHOR'S ORGANIZ ATION 04/18/2020 [facility] DATE CREATED AUTHOR AUTHOR'S ORGANIZ ATION 06/24/2022 [facility] DATE CREATED AUTHOR AUTHOR'S ORGANIZ ATION 07/03/2022 [facility] DATE CREATED AUTHOR AUTHOR'S ORGANIZ ATION 09/26/2022 [facility] DATE CREATED AUTHOR AUTHOR'S ORGANIZ ATION 10/01/2022 [facility] DATE CREATED AUTHOR AUTHOR'S ORGANIZ ATION 10/01/2022 [employer] DATE CREATED AUTHOR AUTHOR'S ORGANIZ ATION 10/21/2023 [facility] DATE CREATED AUTHOR AUTHOR'S ORGANIZ ATION 10/26/2023 [facility] EPIC Care Teams (unrecognized sec [...] BE BASED ON THE PRIMARY CLINICAL RECORDS. [employer] provides no warranty or guarantee of the accuracy or completeness of information in this document.
--- NOTE | 2023-12-24 20:53 | ED.GENADUL1 ---
HPI HPI - General Adult General Chief complaint: Dizziness Stated complaint: FEVER, CHILLS Time Seen by Provider: 12/24/23 20:43 Source: patient Mode of arrival: ambulance Limitations: no limitations History of Present Illness HPI narrative: ill past couple of days. complains of diarrhea one episode, cough, shortness of breath and chills. No chest pain. Did have lower abdominal pain earlier. No nausea or vomiting. feels weak. past history of A. fib and takes Xarelto Related Data Home Medications ?Medication ?Instructions ?Recorded ?Confirmed allopurinol 300 mg tablet 300 mg PO DAILY 12/25/23 12/25/23 furosemide 40 mg tablet 40 mg PO DAILY 12/25/23 12/25/23 glipizide 10 mg tablet 10 mg PO BID 12/25/23 12/25/23 levothyroxine 200 mcg tablet 200 mcg PO DAILY 12/25/23 12/25/23 metformin 500 mg tablet 500 mg PO DAILY 12/25/23 12/25/23 metoprolol succinate 50 mg 150 mg PO DAILY 12/25/23 12/25/23 tablet,extended release 24 hr rivaroxaban 15 mg tablet (Xarelto) 15 mg PO Q24H 12/25/23 12/25/23 Allergies Allergy/AdvReac Type Severity Reaction Status Date / Time Iodinated Contrast Media Allergy Unknown Unknown Verified 12/24/23 23:08 Opioid HPI Opioid Management Most Recent Opioid Data: No Data to Display Review of Systems ROS Status of ROS 10 or more systems reviewed and unremarkable except as noted in history and below PFSH PFSH Social History Little interest or pleasure in doing things: not at all Feeling down, depressed, or hopeless: not at all Exam Constitutional Vital Signs, click to edit/add: Last Vital Signs Temp 97.1 F L 12/24/23 20:36 Pulse 111 H 12/25/23 02:34 Resp 29 H 12/25/23 02:10 BP 100/80 12/25/23 02:34 Pulse Ox 94 L 12/25/23 02:34 O2 Del Method Room Air 12/25/23 02:34 Common normals: no apparent distress (mild respiratory distress), oriented x3 and alert HENMT Common normals: normocephalic and head/scalp atraumatic Eye Common normals: PERRL, EOMs intact bilaterally and conjunctivae normal Respiratory Common normals: normal respiratory effort, no retractions and clear to auscultation bilaterally Other: tachypnea Cardio Common normals: regular rate, regular rhythm, S1 normal heart sound and S2 normal heart sound GI Common normals: Normal to inspection, nondistended, normoactive bowel sounds present, soft to palpation and non-tender Extremity Common normals: normal to inspection and full ROM Neuro Common normals: oriented x3, moves all extremities and no focal motor deficits Psych Appearance: grossly normal Course Vital Signs Vital signs: Vital Signs Blood Pressure 157/86 H 12/24/23 20:35 Temperature 97.1 F L 12/24/23 20:36 Pulse Rate 111 H 12/25/23 02:34 Respiratory Rate 29 H 12/25/23 02:10 Blood Pressure 100/80 12/25/23 02:34 Pulse Oximetry 94 L 12/25/23 02:34 Oxygen Delivery Method Room Air 12/25/23 02:34 Medical Decision Making MDM Narrative Medical decision making narrative: patient presents complaining of chills, weakness and shortness of breath. Has mild cough and one episode of diarrhea. Past history of blood clots and A. fib. Followed by Dr Casey. presents dyspnea . Chest clear on exam. Patient tachycardic and EKG demonstrating A. fib without acute changes. First troponin elevated and 2nd troponin increased. D-dimer elevated but patient not candidate for CTA at this time due to GFR 28 Hospitalist paged from [facility]. Discussed with hospitalist at [facility] and he would like ASA and lovenox. Patient informed of the plan to transfer to [facility] Lab Data Labs: Lab Results 12/24/23 12/24/23 12/24/23 Range/Units 21:23 21:35 21:45 WBC 17.3 H (4.0-11.0) 10^3/uL RBC 5.39 (4.20-5.40) 10^6/uL Hgb 16.6 H (12.0-16.0) g/dL Hct 49.6 H (36.0-48.0) % MCV 92.0 (81.0-99.0) fL MCH 30.8 (26.7-34.0) pg MCHC 33.5 (29.9-35.2) g/dL RDW 13.3 (11.0-15.0) % Plt Count 236 (150-450) 10^3/uL MPV 11.3 (9.5-13.5) fL Neut % (Auto) 83.6 H (43.0-75.0) % Lymph % (Auto) 8.8 L (20.5-60.0) % Williams % (Auto) 6.5 (1.7-12.0) % Eos % (Auto) 0.3 L (0.9-7.0) % Baso % (Auto) 0.5 (0.2-2.0) % Neut # (Auto) 14.5 H (1.4-6.5) 10^3/uL Lymph # (Auto) 1.5 (1.2-3.8) 10^3/uL Williams # (Auto) 1.1 H (0.3-0.8) 10^3/uL Eos # (Auto) 0.1 (0.0-0.7) 10^3/uL Baso # (Auto) 0.1 (0.0-0.1) 10^3/uL Abs Immat Gran (auto) 0.06 H (0.00-0.03) 10^3/uL Imm/Tot Granulo (auto) 0.3 (0.0-0.5) % D-Dimer 0.89 H* (<=0.59) mg/L FEU Sodium 134 L (136-145) mmol/L Potassium 4.3 (3.5-5.1) mmol/L Chloride 97 L (98-107) mmol/L Carbon Dioxide 24.3 (21.0-32.0) mmol/L Anion Gap 17.0 BUN 41.0 H (7.0-18.0) mg/dL Creatinine 1.73 H (0.55-1.02) mg/dL Est GFR ( Amer) 34 L (>=60 mL/min/1.73m^2) Est GFR (Non-Af Amer) 28 L (>=60 mL/min/1.73m^2) BUN/Creatinine Ratio 23.7 Glucose 231 H (74-106) mg/dL Calcium 9.4 (8.5-10.1) mg/dL Troponin I High Sens 51.6 H* (4.0-51.3) pg/mL Urine Color (YELLOW) Urine Clarity (CLEAR) Urine pH (5.0-9.0) Ur Specific [place] (1.005-1.025) Urine Protein (NEG/TRACE) mg/dL Urine Glucose (UA) (NEGATIVE) mg/dL Urine Ketones (NEGATIVE) mg/dL Urine Occult Blood (NEGATIVE) Urine Nitrite (NEGATIVE) Urine Bilirubin (NEGATIVE) Urine Urobilinogen (0.2-1.0) EU/dL Ur Leukocyte Esterase (NEGATIVE) Urine RBC (0-2) #/HPF Urine WBC (NONE SEEN) #/HPF Ur Squamous Epith Cells (NONE/RARE) #/LPF Urine Crystals (None Seen) #/HPF Urine Bacteria (NONE SEEN) #/HPF Urine Casts (NONE SEEN) #/LPF Urine Mucus (NONE SEEN) Ur Culture Indicated? Influenza Type A Ag Negative Influenza Type B Ag Negative SARS-CoV-2 Ag (CV2AG) Negative (NEGATIVE) 12/24/23 12/25/23 Range/Units 21:50 00:25 WBC (4.0-11.0) 10^3/uL RBC (4.20-5.40) 10^6/uL Hgb (12.0-16.0) g/dL Hct (36.0-48.0) % MCV (81.0-99.0) fL MCH (26.7-34.0) pg MCHC (29.9-35.2) g/dL RDW (11.0-15.0) % Plt Count (150-450) 10^3/uL MPV (9.5-13.5) fL Neut % (Auto) (43.0-75.0) % Lymph % (Auto) (20.5-60.0) % Williams % (Auto) (1.7-12.0) % Eos % (Auto) (0.9-7.0) % Baso % (Auto) (0.2-2.0) % Neut # (Auto) (1.4-6.5) 10^3/uL Lymph # (Auto) (1.2-3.8) 10^3/uL Williams # (Auto) (0.3-0.8) 10^3/uL Eos # (Auto) (0.0-0.7) 10^3/uL Baso # (Auto) (0.0-0.1) 10^3/uL Abs Immat Gran (auto) (0.00-0.03) 10^3/uL Imm/Tot Granulo (auto) (0.0-0.5) % D-Dimer (<=0.59) mg/L FEU Sodium (136-145) mmol/L Potassium (3.5-5.1) mmol/L Chloride (98-107) mmol/L Carbon Dioxide (21.0-32.0) mmol/L Anion Gap BUN (7.0-18.0) mg/dL Creatinine (0.55-1.02) mg/dL Est GFR ( Amer) (>=60 mL/min/1.73m^2) Est GFR (Non-Af Amer) (>=60 mL/min/1.73m^2) BUN/Creatinine Ratio Glucose (74-106) mg/dL Calcium (8.5-10.1) mg/dL Troponin I High Sens 220.2 H* (4.0-51.3) pg/mL Urine Color Lt. yellow (YELLOW) Urine Clarity Clear (CLEAR) Urine pH 6.0 (5.0-9.0) Ur Specific [place] 1.020 (1.005-1.025) Urine Protein 100 A (NEG/TRACE) mg/dL Urine Glucose (UA) Negative (NEGATIVE) mg/dL Urine Ketones Negative (NEGATIVE) mg/dL Urine Occult Blood Small A (NEGATIVE) Urine Nitrite Negative (NEGATIVE) Urine Bilirubin Negative (NEGATIVE) Urine Urobilinogen 0.2 (0.2-1.0) EU/dL Ur Leukocyte Esterase Small A (NEGATIVE) Urine RBC 0-2 (0-2) #/HPF Urine WBC 0-2 A (NONE SEEN) #/HPF Ur Squamous Epith Cells Few A (NONE/RARE) #/LPF Urine Crystals None seen (None Seen) #/HPF Urine Bacteria None seen (NONE SEEN) #/HPF Urine Casts None seen (NONE SEEN) #/LPF Urine Mucus None seen (NONE SEEN) Ur Culture Indicated? No Influenza Type A Ag Influenza Type B Ag SARS-CoV-2 Ag (CV2AG) (NEGATIVE) Discharge Plan Discharge Chief Complaint: Dizziness Clinical Impression: Atrial fibrillation with RVR, Elevated troponin, D-dimer, elevated Patient Disposition: Xfer Acute Care Hospital Discharge Location: [facility] Mode of Transportation: EMS Discharge Date/Time: 12/25/23 02:37
--- NOTE | 2023-12-24 20:56 | XR_ITS ---
The [address] [address] Patient Name: MOHAN INTERIANO MRN: [id number] date: 1935 Sex: F Assigned Patient Location: ER Current Patient Location: ER Accession/Order Number: [id number] Exam Date: 12/24/2023 21:14 Report Date: 12/24/2023 21:30 At the request of: MOSES OBREGON Procedure: XR chest 1V EXAM: XR chest 1V TECHNIQUE: Single AP view chest HISTORY: short of breath COMPARISON: 06/21/2022 FINDINGS: The heart and mediastinum are unremarkable. Strandy worse are seen. No acute consolidation. Osseous structures are intact. Evaluation limited by low lung volumes and patient rotation. XR/XR chest 1V IMPRESSION: No acute pulmonary disease. Electronically authenticated by: BOBBY WRIGHT Date: 12/24/2023 21:30
--- NOTE | 2023-12-24 20:57 | ECG_ITS ---
The [facility] Test Date: 2023-12-24 Pat Name: MOHAN INTERIANO Department: Room: - Gender: Female Data Abstractor: : 1935 Requested By: SHAIKH ELLIOTT Order Number: [id number] Reading MD: BURAK SCOTT Measurements Intervals [place] Rate: 100 P: -[id number] [place]: -[id number] QRS: -31 QRSD: 110 T: 109 QT: 368 QTc: 425 Interpretive Statements 57649 Atrial fibrillation with rapid ventricular response 2540 Incomplete left bundle branch block [address] depression, probably digitalis effect 29613 Twave abnormality, possible lateral ischemia or digitalis effect 5211 Minimal voltage criteria for LVH, may be normal variant 7200 Abnormal left axis deviation 8003 Consistent with pulmonary disease 9150 abnormal ECG Electronically Signed On 12-26-2023 20:49:54 EDT by BURAK SCOTT
[2023-12-24] MEDS: 0.9 % SODIUM CHLORIDE 1,000 ML 999 ML IV (21:54)
[2023-12-24 21:57] LABS: BUN Creatinine Ratio 23.7; Calcium 9.4 mg/dL (8.5-10.1); Carbon Dioxide 24.3 mmol/L (21.0-32.0); Chloride 97 mmol/L (98-107); Estimated GFR (African America 34 (>=60 mL/min/1.73m^2); Estimated GFR (Non-African Ame 28 (>=60 mL/min/1.73m^2); Glucose 231 mg/dL (74-106); Potassium 4.3 mmol/L (3.5-5.1); Sodium 134 mmol/L (136-145)
[2023-12-24 21:58] LABS: Basophils Absolute Auto 0.1 10^3/uL (0.0-0.1); Basophils Percent Auto 0.5 % (0.2-2.0); Eosinophils Absolute Auto 0.1 10^3/uL (0.0-0.7); Eosinophils Percent Auto 0.3 % (0.9-7.0); Hematocrit 49.6 % (36.0-48.0); Hemoglobin 16.6 g/dL (12.0-16.0); Immature Granulocytes Abs Auto 0.06 10^3/uL (0.00-0.03); Immature Granulocytes Pct Auto 0.3 % (0.0-0.5); Lymphocytes Absolute Auto 1.5 10^3/uL (1.2-3.8); Lymphocytes Percent Auto 8.8 % (20.5-60.0); Mean Corpuscular HGB Conc 33.5 g/dL (29.9-35.2); Mean Corpuscular Hemoglobin 30.8 pg (26.7-34.0); Mean Platelet Volume 11.3 fL (9.5-13.5); Monocytes Absolute Auto 1.1 10^3/uL (0.3-0.8); Monocytes Percent Auto 6.5 % (1.7-12.0); Neutrophils Absolute Auto 14.5 10^3/uL (1.4-6.5); Neutrophils Percent Auto 83.6 % (43.0-75.0); Platelet Count 236 10^3/uL (150-450); Red Blood Count 5.39 10^6/uL (4.20-5.40); Red Cell Distribution Width 13.3 % (11.0-15.0); White Blood Count 17.3 10^3/uL (4.0-11.0)
[2023-12-24 21:59] LABS: Bilirubin Urine NEGATIVE (NEGATIVE); Blood Urine SMALL (NEGATIVE); Clarity Urine CLEAR (CLEAR); Color Urine LT. YELLOW (YELLOW); Glucose Urine UA NEGATIVE (NEGATIVE); Ketones Urine NEGATIVE (NEGATIVE); Leukocyte Esterase Urine SMALL (NEGATIVE); Nitrite Urine NEGATIVE (NEGATIVE); Protein Urine 100 mg/dL (NEG/TRACE); Urobilinogen Urine 0.2 EU/dL (0.2-1.0)
[2023-12-24 22:04] LABS: Troponin I High Sensitivity 51.6 pg/mL (4.0-51.3)
[2023-12-24 22:06] LABS: Urine Microscopic Indicated YES
[2023-12-24 22:11] LABS: Bacteria Urine NONE SEEN #/HPF (NONE SEEN); RBC Urine 0-2 #/HPF (0-2); WBC Urine 0-2 #/HPF (NONE SEEN)
[2023-12-24 22:12] LABS: Cast Seen? NONE SEEN #/LPF (NONE SEEN); Crystals Seen? None Seen #/HPF (None Seen); Mucus Urine NONE SEEN (NONE SEEN); Squamous Epithelial Cell Urine FEW #/LPF (NONE/RARE); Urine Culture Indicated NO
[2023-12-24 22:12] LABS: Influenza Virus A Antigen Negative
[2023-12-24 22:13] LABS: Influenza Virus B Antigen Negative; Internal Control Within Normal Limits; SARS-CoV-2 Ag NEGATIVE (NEGATIVE)
[2023-12-24 22:20] LABS: D Dimer 0.89 mg/L FEU (<=0.59)
[2023-12-25] VITALS (15 sets, daily range): BP systolic 100; BP diastolic 80; PULSE 97–128; O2SAT 91–94
[2023-12-25 00:49] LABS: Troponin I High Sensitivity 220.2 pg/mL (4.0-51.3)
--- NOTE | 2023-12-25 00:49 | PC.NURSE ---
lab called with a critical troponin 220.2 dr terry notified
[2023-12-25] MEDS: ASPIRIN 81 MG TAB.CHEW 324 MG PO (02:00)
[2023-12-25] MEDS: ENOXAPARIN SODIUM 120 MG/0.8 ML SYRINGE SUBQ (02:00)
--- NOTE | 2023-12-25 02:11 | PC.NURSE ---
PHYSICIAN NOTIFIED. MEDICATION HELD
== END 2023-12-25 02:37 | disposition short-term general hospital (02) ==
PROVIDERS: Emergency Provider Internal Medicine; PCP Internal Medicine
DX: I48.91 Unspecified atrial fibrillation (principal); R79.89 Other specified abnormal findings of blood chemistry; R79.1 Abnormal coagulation profile; Z20.822 Contact with and (suspected) exposure to COVID-19; Z79.01 Long term (current) use of anticoagulants
CPT/HCPCS: 36415; 71045; 80048; 81001; 84484; 85025; 85378; 87804; 87811; 93005; 96360; 96361; 96372; 99285; J1650

== ENCOUNTER 2024-04-17 07:34 | Outpatient (OUT) | payer MEDICARE, OTHER, SELFPAY ==
--- OUTSIDE RECORDS SUMMARY | 2024-04-17 07:39 | XMS_ITS | CCD ---
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 Name Role Phone Darrian Benton Unavailable Unavailable GLORIA, SARMED Admitting Unavailable GLORIA, SARMED Attending Unavailable ROMARIO BAKER Primary Care Unavailable ER, JOVANNI Referring Unavailable SD Procedure Practitioner Unavailab le UNKNOWN, PROVIDER Surgeon Unavailable MD Quan Schultz Primary Care Provider MD Toi Johnson Admit Provider MD Brissa Hoffman Attending Provider [phone] FAWWAD, GOOD H Admitting Unavailable FAWWAD, GOOD [...] H Primary Care Unavailable DR JAYY ARGUELLES Attending Unavailable MARIBEL .EARLE Consulting UnavailDR JAYY Armando Admitting Unavailable FAWWAD, GOOD H Primary Care Unavailable DR JAYY ARGUELLES Consulting Unavailable ALICIA LAND Consulting Unavailable LAURENCE RAJPUT Consulting Unavailable JENNIFER SWIFT Consulting Unavailable MD Quan Schultz Attending Provider [place], Good Unavailable Unavailable Unavailable JOSELUIS CASEY Attending Unavailable JOSELUIS CASEY Attending Unavailable Jacinto, Dr. Joseluis Warren Attending Unava ilable Jacinto, Dr. Joseluis Warren Attending Unava ilable Jacinto, Dr. Joseluis Warren Referring Unava iljakob Casey, Dr. Joseluis Warren Attending Cesiava Dr. Qaun Stewart Referring Unavailable Jacinto, Dr. Joseluis Warren Attending Unava ilable Nelson Orourke Attending Unavailable Ren Mohan Admitting Unavailable Emilie Meza Primary Care Unavaila ble DO Ren Mohan Admit Provider [phone] DO Nelson Orourke Attending Provider Derrick, CHRISTY Wells Primary Care Provid er Fabricio Edouard MD Primary Care Provider Derrick MILTON, Emilie Unavailable JOSELUIS CASEY Attending Unavailable SHAIKH SCHULTZ Primary Care Unavailable SHAIKH SCHULTZ Attending Unavailable EMILIE MEZA Attending Unavailabl e MEZAEMILIE Attending Unavailabl e MEZA, EMILIE Attending Unavailabl e Allergies Allergy Classification Reported Allergen(s) Allergy Type Date of Onset Reaction(s) Facility (2 sources) Albuterol Drug Allergy 9 [facility] Repository (1 source) Albuterol Drug Allergy 3 [facility] Repository (10 sources) Albuterol Drug Allergy 6 [facility] (10 sources) atorvastatin Drug Allergy [address] [facility] (10 sources) Clarithromycin Allergy to substance 6 [facility] (10 sources) ezetimibe Drug Allergy 6 [facility] (1 source) Hmg-Coa Reductase Inhibitors (Statins); 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: [ZNAMZKY-CXP-YIN REDUCTASE INHIBITORS] Propensity to adverse reactions to drug (disorder) 4 [facility] 3 Repository Medications Current Medications Medication Drug Class(es) Dates Sig (Normalized) Sig (Original) allopurinol 300 mg oral tablet (19 sources) Xanthine Oxidase Inhibitor Start: 02-28-2024 take 1 tablet by mouth once daily allopurinol (Zyloprim) 300 MG tablet Indications: Hyperuricemia without signs of inflammatory arthritis and tophaceous disease Take 1 tablet (300 mg) by mouth Daily 90 tablet 1 02/28/2024 Active Start: 02-28-2024 take 1 tablet by raymond th once daily allopurinol (Zyloprim) 300 MG tablet Indications: Hyperuricemia without signs of inflammatory arthritis and tophaceous disease Take 1 tablet (300 mg) by mouth Daily 90 tablet 1 02/28/2024 Active Start: 02-28-2024 take 1 tablet by raymond th once daily allopurinol (Zyloprim) 300 MG tablet Indications: Hyperuricemia without signs of inflammatory arthritis and tophaceous disease Take 1 tablet (300 mg) by mouth Daily 90 tablet 1 02/28/2024 Active Start: 06-22-2022 End: 02-28-2024 take 1 tablet by mouth once daily allopurinol (Zyloprim) 300 MG tablet Indications: Hyperuricemia without signs of inflammatory arthritis and tophaceous disease TAKE 1 TABLET BY MOUTH DAILY 90 tablet 1 09/08/2023 02/28/2024 Discontinued (Reorder) Start: 04-13-2019 End: 06-22-2022 take 100 mg by mouth twice daily Allopurinol Discontinued 100 MG PO Twice daily April 13, 2019 1:00am June 22, 2022 3:38am atorvastatin 40 mg oral tablet (5 sources) HMG-CoA Reductase Inhibitor Start: 06-23-2022 take 40 mg by mouth once daily in the evening Atorvastatin Active 40 MG PO Every evening 30 June 23, 2022 12:00am furosemide 40 mg oral tablet (19 sources) Loop Diuretic Start: 02-28-2024 take 1 tablet by mouth once daily furosemide (Lasix) 40 MG tablet Indications: 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/HCC) Take 1 tablet (40 mg) by mouth Daily 90 tablet 1 02/28/2024 Active Start: 02-28-2024 take 1 tablet by raymond th once daily furosemide (Lasix) 40 MG tablet Indications: 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/HCC) Take 1 tablet (40 mg) by mouth Daily 90 tablet 1 02/28/2024 Active Start: 09-08-2023 End: 02-28-2024 take 1 tablet by mouth once daily furosemide (Lasix) 40 MG tablet Indications: 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/HCC) TAKE 1 TABLET BY MOUTH DAILY 90 tablet 1 09/08/2023 02/28/2024 Discontinued (Reorder) Start: 04-13-2019 End: 06-22-2022 take 40 mg by mouth once daily Furosemide Active 40 MG PO Daily June 22, 2022 12:00am glipiZIDE 10 mg oral tablet (19 sources) Sulfonylurea Start: 06-22-2022 End: 08-26-2024 take 1 tablet by mouth in the morning glipiZIDE (Glucotrol) 10 MG tablet Indications: Type 2 diabetes mellitus without complications (CMS/HCC) Take 1 tablet (10 mg) by mouth in the morning and 1 tablet (10 mg) before bedtime. 180 tablet 1 02/28/2024 08/26/2024 Active Start: 04-13-2019 End: 06-22-2022 take 5 mg by mouth twice daily Glipizide Discontinued 5 MG PO Twice daily April 13, 2019 1:00am June 22, 2022 3:38am take 1 tablet by raymond twice daily glipiZIDE ER 10 MG Oral Tablet Extended Release 24 Hour Take 1 tablet twice daily Quantity: 180 Refills: 1 Ordered: 01-Jul-2022 DO Active levothyroxine sodium 0.2 mg oral tablet (19 sources) l-Thyroxine Start: 09-08-2023 End: 08-26-2024 take 1 tablet by mouth once daily levothyroxine (Synthroid, Levoxyl) 200 MCG tablet Indications: Hypothyroidism, unspecified (CMS/HCC) Take 1 tablet (200 mcg) by mouth Daily 90 tablet 1 02/28/2024 08/26/2024 Active Start: 04-13-2019 End: 06-22-2022 take 200 ug by mouth once daily Levothyroxine Active 2 00 MCG PO Daily June 22, 2022 12:00am take 1 capsule by mo [facility] once daily in the morning Levothyroxine Sodium 200 MCG Oral Capsule TAKE 1 CAPSULE DAILY IN THE MORNING Quantity: 0 Refills: 0 Ordered: 01-Jul-2022 DO Active losartan potassium 100 mg oral tablet (5 sources) Angiotensin 2 Receptor Jazmine Start: 06-22-2022 take 100 mg by mouth once daily Losartan Active 100 MG PO Daily June 22, 2022 12:00am metFORMIN hydrochloride 500 mg oral tablet (19 sources) Biguanide Start: 04-05-2024 take 1 tablet by mouth in the morning metFORMIN (Glucophage) 500 MG tablet Indications: Type 2 diabetes mellitus without complications (CMS/HCC) Take 1 tablet (500 mg) by mouth in the morning and 1 tablet (500 mg) before bedtime. 180 tablet 1 04/05/2024 Active Start: 09-09-2023 End: 04-05-2024 take 1 tablet by mouth twice daily metFORMIN (Glucophage) 500 MG tablet Indications: Type 2 diabetes mellitus without complications (CMS/HCC) TAKE 1 TABLET BY MOUTH TWICE DAILY 180 tablet 1 09/09/2023 04/05/2024 Discontinued (Reorder) Start: 04-13-2019 End: 06-22-2022 take 500 mg by mouth twice daily Metformin Active 500 MG PO Twice daily June 22, 2022 12:00am 24 hr metoprolol succinate 50 mg extended release oral tablet (20 sources) beta-Adrenergic Jazmine Start: 06-23-2022 take 150 mg by mouth [...] 2022 3:38am take 1 tablet by raymond every twenty-four hours in the morning metoprolol succinate XL (Toprol-XL) 100 MG 24 hr tablet Take 1 tablet by mouth in the morning. Active take 3 tablets by mo [facility] once daily Metoprolol Succinate ER 50 MG Oral Tablet Extended Release 24 Hour TAKE 3 TABLET Daily Quantity: 270 Refills: 0 Ordered: 15-Sep-2022 Joseluis Casey DO Active rivaroxaban 15 mg oral tablet (19 sources) Factor Xa Inhibitor Start: 06-23-2022 End: 12-28-2023 take 1 tablet by mouth once daily rivaroxaban (Xarelto) 15 MG tablet Indications: Unspecified atrial fibrillation (CMS/HCC) Take 1 tablet (15 mg) by mouth Daily 90 tablet 1 12/28/2023 Active Start: 06-22-2022 End: 06-23-2022 take 1 tablet by mouth at bedtime Rivaroxaban (Xarelto) 20 mg tablet Discontinued 20 MG PO Bedtime June 22, 2022 12:00am June 23, 2022 12:19pm spironolactone 25 mg oral tablet (10 sources) Aldosterone Antagonist spironola ctone (Aldactone) 25 MG tablet Oral Active Completed/Discontinued Medications Medication Drug Class(es) Dates Sig (Normalized) Sig (Original) clopidogrel 75 mg oral tablet (3 sources) [id number] Platelet Inhibitor Start: 04-13-2019 End: 06-22-2022 take 75 mg by mouth once daily Clopidogrel Discontinued 75 MG PO Daily April 13, 2019 1:00am June 22, 2022 3:38am digoxin 0.125 mg oral tablet (3 sources) Cardiac Glycoside Start: 04-13-2019 End: 04-17-2019 take 125 ug by mouth once daily Digoxin Discontinued 125 MCG PO Daily April 13, 2019 1:00am April 17, 2019 3:13pm probenecid 500 mg oral tablet (3 sources) Start: 04-13-2019 End: 06-22-2022 take 500 mg by mouth once daily Probenecid Discontinued 500 MG PO Daily April 13, 2019 1:00am June 22, 2022 3:38am ramipril 10 mg oral capsule (3 sources) Angiotensin Converting Enzyme Inhibitor Start: 04-13-2019 End: 06-22-2022 take 10 mg by mouth once daily Ramipril Discontinued 10 MG PO Daily April 13, 2019 1:00am June 22, 2022 3:38am warfarin sodium 5 mg oral tablet (3 sources) Vitamin K Antagonist Start: 04-13-2019 End: 06-22-2022 Warfarin Discontinued 0 .ROUTE .COMPLEX April 13, 2019 1:00am June 22, 2022 3:[address]. Baker in [place] instructions 5mg everyday besides Wednesday and Wednesday which then she takes 7.5mg Problems Active Problems Problem Classification Problem Date Documented Date Episodic/Chronic Acute and unspecified renal failure (3 sources) Injury of kidney; 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: [Acute kidney failure, unspecified] 06-23-2022 Episodic Acute myocardial infarction (7 sources) Non-ST elevation (NSTEMI) myocardial infarction; 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: [Myocardial infarction type 2] Onset: 06-23-2022 12-25-2023 Chronic Aortic; peripheral; and visceral artery aneurysms (3 sources) Ascending aorta dilatation; 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: [Thoracic aortic ectasia] 04-20-2019 Chronic Cardiac dysrhythmias (20 sources) Atrial fibrillation; 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: [Unspecified atrial fibrillation] Onset: 10-29-2011 06-22-2022 Chronic Cataract (20 sources) Bilateral age-related nuclear cataracts; 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: [Age-related nuclear cataract, bilateral] Onset: 09-23-2022 09-23-2022 Chronic Chronic kidney disease (19 sources) Chronic kidney disease stage 3; 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: [Stage 3 chronic kidney disease] Onset: 04-12-2023 04-20-2019 Chronic Coagulation and hemorrhagic disorders (17 sources) Factor V Leiden mutation; 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: [Activated protein C resistance] Onset: 04-12-2023 04-20-2019 Chronic Congestive heart failure; nonhypertensive (4 sources) Symptomatic congestive heart failure; 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: [Congestive heart failure, unspecified] Onset: 07-23-2022 Chronic Coronary atherosclerosis and other heart disease (20 sources) Coronary arteriosclerosis; 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: [Atherosclerotic heart disease of [place] coronary artery without angina pectoris] Onset: 12-15-2010 04-13-2019 Chronic Coronary atherosclerosis and other heart disease (7 sources) Presence of coronary angioplasty implant and graft; 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: [Percutaneous transluminal coronary angioplasty status] Onset: 06-23-2022 06-23-2022 Episodic Deficiency and other anemia (3 sources) Anemia; 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: [Anemia, unspecified] 04-15-2019 Episodic Deficiency and other anemia (3 sources) Iron deficiency anemia; 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: [Iron deficiency anemia, unspecified] 04-20-2019 Episodic Diabetes mellitus with complications (19 sources) Type 2 diabetes mellitus with diabetic polyneuropathy; 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: [Type 2 diabetes mellitus with diabetic chronic kidney disease] Onset: 07-03-2021 Chronic Diabetes mellitus without complication (15 sources) Diabetes mellitus; 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: [Type 2 diabetes mellitus without complications] Onset: 12-29-2021 04-20-2019 Chronic Disorders of lipid metabolism (12 sources) Pure hypercholesterolemia, unspecified; 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: [Hyperlipidemia, unspecified] Onset: 12-15-2010 04-12-2023 Chronic Esophageal disorders (10 sources) Gastroesophageal reflux disease; 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: [Gastro-esophageal reflux disease without esophagitis] Onset: 10-29-2011 04-12-2023 Chronic Esophageal disorders (3 sources) Esophagitis; 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: [Esophagitis determined by endoscopy] 04-20-2019 Episodic Essential hypertension (17 sources) Hypertensive disorder; 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: [Essential (primary) hypertension] Onset: 12-15-2010 04-20-2019 Chronic Genitourinary symptoms and ill-defined conditions (1 source) Personal history of urinary (tract) infections; 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: [PERS HX URINARY TRACT INFECTIONS] Onset: 06-23-2022 Episodic Gout and other crystal arthropathies (13 sources) Gout; 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: [Gout, unspecified] Onset: 12-15-2010 04-20-2019 Chronic Hypertension with complications and secondary hypertension (1 source) Hypertensive heart disease with heart failure; 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: [HTN HEART DISEASE W/HEART FAIL] Onset: 06-23-2022 Chronic Immunizations and screening for infectious disease (4 sources) Patient encounter status; 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: [Other specified vaccination] Resolved: 07-01-2022 01-25-2024 Episodic Leukemias (20 sources) Acute leukemia of unspecified cell type, in remission; 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, disease] Onset: 12-15-2010 04-12-2023 Chronic Malaise and fatigue (3 sources) Weakness; 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: [WEAKNESS] Onset: 06-21-2022 Episodic Nonspecific chest pain (3 sources) Chest pain; 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: [Chest pain, unspecified] 04-13-2019 Episodic Osteoarthritis (10 sources) Degenerative joint disease involving multiple joints; 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: [Polyosteoarthritis, unspecified] Onset: 12-15-2010 04-12-2023 Chronic Other aftercare (3 sources) Long-term current use of anticoagulant; 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: [buttermaker helper (current) use of anticoagulants] 04-20-2019 Episodic Other aftercare (3 sources) buttermaker helper (current) use of anticoagulants; 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: [Long-term (current) use of anticoagulants] Onset: 06-23-2022 06-23-2022 Episodic Other aftercare (1 source) jail (current) use of oral hypoglycemic drugs; 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: [HORSE TRADER USE ORAL HYPOGLYCEMIC DX] Onset: 06-23-2022 Episodic Other aftercare (1 source) Other care home (current) drug therapy; 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: [OTH HORSE TRADER CURRENT DRUG THERAPY] Onset: 06-23-2022 Episodic Other hematologic conditions (3 sources) Raised cardiac enzyme or marker; 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: [Other specified abnormalities of plasma proteins] 06-22-2022 Episodic Other hematologic conditions (2 sources) Other specified abnormalities of plasma proteins; 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: [Other abnormal blood chemistry] 06-23-2022 Episodic Other lower respiratory disease (3 sources) Dyspnea; 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: [Dyspnea, unspecified] 04-13-2019 Episodic Other lower respiratory disease (3 sources) Multiple nodules of lung; 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: [Other nonspecific abnormal finding of lung field] 04-20-2019 Episodic Other lower respiratory disease (2 sources) Dyspnea, unspecified; 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: [Other respiratory abnormalities] 06-23-2022 Episodic Other nutritional; endocrine; and metabolic disorders (1 source) Morbid (severe) obesity due to excess calories; 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: [MORBID SEVERE OBES D/T EXCESS TAIWO] Onset: 06-23-2022 Chronic Other nutritional; endocrine; and metabolic disorders (1 source) Body mass index (BMI) 45.0-49.9, adult; 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: [BODY MASS INDEX BMI 45.0-49.9 ADULT] Onset: 06-23-2022 Chronic Other nutritional; endocrine; and metabolic disorders (10 sources) Morbid obesity; 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: [Morbid (severe) obesity due to excess calories] Onset: 12-15-2010 04-12-2023 Chronic Other nutritional; endocrine; and metabolic disorders (1 source) Hyperuricemia without signs of inflammatory arthritis and tophaceous disease; 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: [Hyperuricemia without signs of inflammatory arthritis and tophaceous disease] 02-28-2024 Episodic Other screening for suspected conditions (not mental disorders or infectious disease) (6 sources) Deviation of international normalized ratio from target range; 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: [Abnormal coagulation profile] 04-13-2019 Episodic Residual codes; unclassified (3 sources) H/O cardiac surgery; 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: [Other specified postprocedural states] 06-22-2022 Episodic Residual codes; unclassified (2 sources) Other specified postprocedural states; 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: [Other postprocedural status] 06-23-2022 Episodic Residual codes; unclassified (2 sources) Other specified health status; 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: [Other specified health status] Onset: 10-19-2023 Episodic Thyroid disorders (20 sources) Hypothyroidism; 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: [Hypothyroidism, unspecified] Onset: 12-15-2010 04-20-2019 Chronic Unclassified (1 source) CHRN KIDNEY DISEASE STG 3 UNSP; 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: [CHRN KIDNEY DISEASE STG 3 UNSP] Onset: 10-01-2021 Past or Other Problems Problem Classification Problem Date Documented Da te Episodic/Chronic Mood disorders (10 sources) Mood disorders Onset: 04-12-2023 04-12-2023 Other nutritional; endocrine; and metabolic disorders (1 source) Hyperuricemia without signs of inflammatory arthritis and tophaceous disease; 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: [HU W/O SIGNS IA AND TOPHACEOUS DZ] Onset: 07-03-2021 Episodic Phlebitis; thrombophlebitis and thromboembolism (11 sources) Personal history of other venous thrombosis and embolism; 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: [H/O: Deep vein thrombosis] Onset: 02-09-2022 04-12-2023 Episodic Pulmonary heart disease (18 sources) History of arterial thrombosis; 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: [Personal history of pulmonary embolism] Onset: 02-09-2022 04-20-2019 Episodic Unclassified (2 sources) Never smoked tobacco; 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: [Never a smoker] Results Test Name Value Interpretation Reference Range Facility Glucose Poct GlucometersOrde red By: Nelson Orourke on 12-28-2023 Glucose [Mass/Vol] 144 mg/dL Normal [facility] Comment on above: Result Comment: [place] Glucose Reference Range is dependent on time and content of last meal. Glucose of more than 200 mg/dL in a nonstressed, ambulatory subject supports the diagnosis of Diabetes Mellitus. PERFORMED BY: [address] [place] [address] PATHOLOGIST MICROFICHE DUPLICATOR CINDY BRADSHAW M.D. Performed By: #### H S TROP #### [address] Random Glucose Refer ence Range is dependent on time and content of last meal. Glucose of more than 200 mg/dL in a nonstressed, ambulatory subject supports the diagnosis of Diabetes Mellitus. Basic Metabolic PanelOrdered By: Ren Mohan on 12-27-2023 Anion gap [Moles/Vol] 11.7 mmol/L Normal 6.0-15.0 [facility] Comment on above: Performed By: #### G STEVELS #### Point of Care testing , Calcium [Mass/Vol] 8.6 mg/dL Normal 8.6-10.3 [facility] Comment on above: Performed By: #### G STEVELS #### Point of Care testing , Chloride [Moles/Vol] 102 mmol/L Normal 98-107 [facility] Comment on above: Performed By: #### G STEVELS #### Point of Care testing , CO2 [Moles/Vol] 24.9 mmol/L Normal 21.0-31.0 [facility] Comment on above: Performed By: #### G STEVELS #### Point of Care testing , Creatinine [Mass/Vol] 1.12 mg/dL Normal 0.60-1.20 [facility] Comment on above: Performed By: #### G STEVELS #### Point of Care testing , Glucose [Mass/Vol] 172 mg/dL High 70-100 [facility] Comment on above: Result Comment: [place] Glucose Reference Range is dependent on time and content of last meal. Glucose of more than 200 mg/dL in a nonstressed, ambulatory subject supports the diagnosis of Diabetes Mellitus. ADA recommended reference range Performed By: #### G LULS #### Point of Care testing , ADA recommended refe rence rangeRandom Glucose Reference Range is dependent on time and content of last meal. Glucose of more than 200 mg/dL in a nonstressed, ambulatory subject supports the diagnosis of Diabetes Mellitus. Potassium [Moles/Vol] 3.6 mmol/L Normal 3.5-5.1 [facility] Comment on above: Performed By: #### G LULS #### Point of Care testing , Sodium [Moles/Vol] 135 mmol/L Low 136-145 [facility] Comment on above: Performed By: #### G LULS #### Point of Care testing , Urea nitrogen [Mass/Vol] 38 mg/dL High 7-25 [facility] Comment on above: Performed By: #### G AURELIA #### Point of Care testing , Basic Metabolic Panelon Creatinine Clr Calc Pharmacy 52.61 Normal [facility] Comment on above: Performed By: #### G AURELIA #### Point of Care testing , GFR/1.73 sq M.predicted MDRD (S/P/Bld) [Vol rate/Area] 47.889 mL/min/{1.73_m2} Normal [facility] Comment on above: Performed By: #### G AURELIA #### Point of Care testing , Complete Blood Count Auto Di ffOrdered By: Ren Mohan on 12-27-2023 Basophils (Bld) [#/Vol] 0.1 10*3/uL Normal 0.0-0.2 [facility] Comment on above: Result Comment: PERF ORMED BY: [place] [address] PATHOLOGIST MICROFICHE DUPLICATOR CINDY BRADSHAW M.D. Performed By: #### C BC, MG, BMP #### [facility] [address] [place] [address] Basophils/100 WBC (Bld) 0.8 % Normal . [facility] Comment on above: Performed By: #### C BC, MG, BMP #### [facility] [address] [place] [address] [place] Eosinophils (Bld) [#/Vol] 0.2 10*3/uL Normal 0.0-0.45 [facility] Comment on above: Performed By: #### C BC, MG, BMP #### [facility] [address] [place] [address] [place] Eosinophils/100 WBC (Bld) 3.4 % Normal . [facility] Comment on above: Performed By: #### C BC, MG, BMP #### [facility] [address] [place] [address] Erythrocyte distribution width (RBC) [Ratio] 14.4 % Normal 11.9-15.3 [facility] Comment on above: Performed By: #### C BC, MG, BMP #### [facility] [address] Hematocrit (Bld) [Volume fraction] 39.7 % Normal 34.0-46.4 [facility] Comment on above: Performed By: #### C BC, MG, BMP #### [address] Hemoglobin (Bld) [Mass/Vol] 13.5 g/dL Normal 11.8-15.4 [facility] Comment on above: Performed By: #### C BC, MG, BMP #### [address] Lymphocytes (Bld) [#/Vol] 2.4 10*3/uL Normal 1.00-4.8 [facility] Comment on above: Performed By: #### C BC, MG, BMP #### [address] Lymphocytes/100 WBC (Bld) 34.5 % Normal . [facility] Comment on above: Performed By: #### C BC, MG, BMP #### [address] MCH (RBC) [Entitic mass] 31.6 pg Normal 24.7-34.3 [facility] Comment on above: Performed By: #### C BC, MG, BMP #### [address] MCV (RBC) [Entitic vol] 93.2 fL Normal 80-100 [facility] Comment on above: Performed By: #### C BC, MG, BMP #### [address] Monocytes (Bld) [#/Vol] 0.9 10*3/uL High 0.0-0.8 [facility] Comment on above: Performed By: #### C BC, MG, BMP #### [address] Monocytes/100 WBC (Bld) 12.5 % Normal . [facility] Comment on above: Performed By: #### C BC, MG, BMP #### [facility] [address] Neutrophils (Bld) [#/Vol] 3.5 10*3/uL Normal 1.8-7.7 [facility] Comment on above: Performed By: #### C BC, MG, BMP #### [facility] [address] Neutrophils/100 WBC (Bld) 48.8 % Normal . [facility] [facility] Comment on above: Performed By: #### C BC, MG, BMP #### [address] Platelet mean volume (Bld) [Entitic vol] 9.9 fL Normal 6.3-10.7 [facility] Comment on above: Performed By: #### C BC, MG, BMP #### [address] Platelets (Bld) [#/Vol] 175 10*3/uL Normal 150-450 [facility] Comment on above: Performed By: #### C BC, MG, BMP #### [address] RBC (Bld) [#/Vol] 4.26 10*6/uL Normal 3.60-5.00 [facility] Comment on above: Performed By: #### C BC, MG, BMP #### [address] WBC (Bld) [#/Vol] 7.1 10*3/uL Normal 3.8-11.6 [facility] Comment on above: Performed By: #### C BC, MG, BMP #### [address] Complete Blood Count Auto Di ffon 12-27-2023 Mean Corpuscular HGB Conc 33.9 g/dL Normal 32.0-35.0 [facility] Comment on above: Performed By: #### C BC, MG, BMP #### [address] NRBC% 0.0 /100{WBC} Normal 0-0.5 [facility] Comment on above: Performed By: #### C BC, MG, BMP #### [facility] [address] [place] [address] [facility] echo transthoracicon ECH echo transthoracic [facility] Main [place] [address] [place] [address] Echocardiogram Signed Patient: Mohan Espinoza MR#: [id number] 8 : 1935 Acct:[id number] Age/Sex: 88 / F ADM Date: 12/25/23 Loc: Room: [address] [place] [address] Type: ADM IN Attending Dr: Nelson Orourke DO Ordering Provider: Apryl Shirley MD Date of Service: 12/27/2310/13/1835 ECH/ECH echo transthoracic: Troponin elevation Copies to: MD Apryl Streeter MD A 10:19 AM Patient Location: : 1935 Gender: Female (MM/DD/YYYY) Age: 88 Years Ordering Physician: Apryl Shirley Height: 68 in Weight: 298.065 lb Performed By: SOULEYMANE Solares BSA: 2.42 m2 BP: 148 / 80 mmHg HR: 71 bpm Reason For Study: Troponin elevation History: Anemia. DM. Factor V Leiden. IVC Filter. HTN. AR. Cancer. Chemotherapy. PE. CABG. PCI. Former Smoke + + Interpretation Summary Ejection Fraction = 60-65%. Hypokinesis of the basal to mid anteroseptal wall. Mild concentric left ventricular hypertrophy. The left atrium appears mildly dilated. There is trace mitral regurgitation. There is trace tricuspid regurgitation. The study was technically suboptimal in quality due to patient body habitus . Compared to prior study, there is no significant change. Procedure/Quality: A two-dimensional transthoracic echocardiogram with color flow, Doppler and injection of contrast agent Definity was performed. A two-dimensional transthoracic echocardiogram with color flow and Doppler was performed. The study was technically suboptimal in quality due to patient body habitus . Left Ventricle: The left ventricular size is normal. Mild concentric left ventricular hypertrophy. Ejection Fraction = 60-65%. Inadequate for diastolic asssessment. Hypokinesis of the basal to mid anteroseptal wall. Left Atrium: The left atrium appears mildly dilated. Right Atrium: The right atrium is not well visualized. Right Ventricle: The right ventricle is not well visualized. Aortic Valve: The aortic valve is moderately calcified. No hemodynamically significant valvular aortic stenosis. No aortic regurgitation is present. Mitral Valve: The mitral valve is normal in structure and function. No significant mitral valve stenosis. There is trace mitral regurgitation. Tricuspid Valve: The tricuspid valve is not well visualized. There is trace tricuspid regurgitation. Pulmonic Valve: The pulmonic valve is not well visualized. Arteries: The aortic root is not well visualized. Pericardium/Pleura: No pericardial effusion seen. There is no pleural effusion. IVC/Hepatic Veins: The inferior vena cava is normal in size, with a normal collapsibility index. MMode/2D Measurements Calculations IVSd (0.7-1.1 cm): 1.29 cm LVIDd (3.7-5.4 cm): 4.4 cm LVPWd (0.7-1.1 cm): 1.08 cm LVIDs (2.3-3.6 cm): 3.0 cm LA dimension (2.3-4.0 cm): 5.1 Ao root diam (2.0-3.2 cm): 3.0 cm cm FS: 32.0 % Ao root area: 7.2 cm2 EDV(Teich): 86.6 ml LVOT diam: 2.02 cm ESV(Teich): 34.3 ml LVOT area: 3.2 cm2 EF(Teich): 60.4 % LAV(MOD-sp2): 51.9 ml LAV(MOD-sp4): 47.7 ml LA A2 area: 20.9 cm2 LA A4 area: 20.1 cm2 LA length (vol): 6.7 cm LA vol: 53.1 ml LA vol index: 21.9 ml/m2 Doppler Measurements Calculations MV E max ashlee: 112.0 cm/sec Ao V2 max: 142.5 cm/sec MV V2 VTI: 23.8 cm Ao max P.1 mmHg MV dec time: 0.17 sec Ao mean P.5 mmHg MV dec slope: 673.3 cm/sec?? Ao V2 mean: 97.8 cm/sec E/E' lat: 9.6 Ao V2 VTI: 27.6 cm E/E' med: 12.1 JUNIE(I,D): 1.95 cm2 JUNIE(V,D): 1.39 cm2 TV max P.0 mmHg LV V1 max: 61.8 cm/sec TR max ashlee: 301.6 cm/sec LV V1 max P.53 mmHg TR max P.4 mmHg LV V1 mean: 42.3 cm/sec RAP systole: 5.0 mmHg LV V1 mean P.82 mmHg LV V1 VTI: 16.9 cm + + + -+ + : Electronically : : signed by: Jane : : : : Gerardo : : : : : : on: 12/27/2023, : : 7:58 PM : Transcribed By: JENNIFRE Performed At: 12/27/23 1019 Signed By: Jane Carrillo MD 12/27/231957 Normal [facility] Glucose Poct Glucometerson 1 Glucose [Mass/Vol] 220 mg/dL Normal [facility] Comment on above: Result Comment: [place] Glucose Reference Range is dependent on time and content of last meal. Glucose of more than 200 mg/dL in a nonstressed, ambulatory subject supports the diagnosis of Diabetes Mellitus. PERFORMED BY: [place] [address] PATHOLOGIST MICROFICHE DUPLICATOR CINDY BRADSHAW M.D. Performed By: #### G LULS #### Point of Care testing , Glucose [Mass/Vol] 242 mg/dL Normal [facility] Comment on above: Result Comment: [facility] Glucose Reference Range is dependent on time and content of last meal. Glucose of more than 200 mg/dL in a nonstressed, ambulatory subject supports the diagnosis of Diabetes Mellitus. PERFORMED BY: [place] [address] PATHOLOGIST MICROFICHE DUPLICATOR CINDY BRADSHAW M.D. Performed By: #### H S TROP #### [address] Glucose [Mass/Vol] 272 mg/dL Normal [facility] Comment on above: Result Comment: [facility] Glucose Reference Range is dependent on time and content of last meal. Glucose of more than 200 mg/dL in a nonstressed, ambulatory subject supports the diagnosis of Diabetes Mellitus. PERFORMED BY: [place] [address] PATHOLOGIST MICROFICHE DUPLICATOR CINDY BRADSHAW M.D. Performed By: #### G LULS #### Point of Care testing , Glucose [Mass/Vol] 182 mg/dL Normal [facility] Comment on above: Result Comment: [facility] Glucose Reference Range is dependent on time and content of last meal. Glucose of more than 200 mg/dL in a nonstressed, ambulatory subject supports the diagnosis of Diabetes Mellitus. PERFORMED BY: [place] [address] PATHOLOGIST MICROFICHE DUPLICATOR CINDY BRADSHAW M.D. Performed By: #### G LULS #### Point of Care testing , Leukocytes [#/volume] correc ruma for nucleated erythrocytes in Blood by Automated counOrdered By: Ren Mohan on 12-27-2023 WBC corrected for nucl RBC Auto (Bld) [#/Vol] 7.1 10*3/uL 3.8-11.6 [facility] MCHC Auto (RBC) [Mass/Vol]Or dered By: Ren Mohan on 12-27-2023 MCHC (RBC) [Mass/Vol] 33.9 g/dL 32.0-35.0 [facility] MagnesiumOrdered By: Ren Mohan on 12-27-2023 Magnesium [Mass/Vol] 1.9 mg/dL Normal 1.9-2.7 [facility] Comment on above: Result Comment: PERF ORMED BY: [place] [address] PATHOLOGIST MICROFICHE DUPLICATOR CINDY BRADSHAW M.D. Performed By: #### G LULS #### Point of Care testing , No Panel InformationOrdered By: Ren Mohan on 12-27-2023 Estimated GFR (CKD-EPI) 47.889 mL/Min [facility] Creatinine Clearance (Chem 52.61 [facility] Nucleated erythrocytes [Pres ence] in Blood by Automated countOrdered By: Ren Mohan on 12-27-2023 Nucleated RBC Auto Ql (Bld) 0.0 /100{WBC} 0-0.5 [facility] US venous duplex LE BIon US venous duplex LE BI [facility] [place] [address] Ultrasound Report Signed Patient: Mohan Espinoza MR#: [id number] 8 : 1935 Acct:[id number] Age/Sex: 88 / F ADM Date: 12/25/23 Loc: Room: [address] [place] [address] Type: ADM IN Attending Dr: Nelson Orourke DO Ordering Provider: Apryl Shirley MD Date of Service: 12/26/23 US/US venous duplex LE BI: elevated d-dimer/Leg swelling Copies to: MD Nelson Price DO BILATERAL LOWER EXTREMITY VENOUS DUPLEX INDICATION: Leg edema and pain. PROCEDURE: Color-flow duplex scanning is used to interrogate the deep venous system of the right and left lower extremities. The common femoral vein, femoral vein and popliteal vein show good compressibility with normal proximal and distal augmentation. The calf veins are compressible. US/US venous duplex LE BI IMPRESSION: NO EVIDENCE FOR DEEP VEIN THROMBOSIS OR PROXIMAL SUPERFICIAL THROMBOPHLEBITIS IN THE RIGHT OR LEFT LOWER EXTREMITY. There is a large hypoechoic area identified in the left popliteal fossa measuring 5.2 x 2.0 x 2.2 cm. This may represent a Walls's cyst. Impression dictated by: Jaxson Cooney MD12/27/2023 2:30 PM Dictation [facility] Tech: Selena Vaughanjeannine Transcribed By: SANA 12/27/23 143 Dictated By: Jaxson Cooney MD 12/27/231429 Signed By: 12/27/23 143 Normal [facility] Albumin [Mass/volume] in Ser um or Plasma by Bromocresol green (BCG) dye binding methoOrdered By: Apryl Shirley on 12-26-2023 Albumin BCG dye [Mass/Vol] 3.3 g/dL Low 3.5-5.7 [facility] Basic Metabolic Panelon 10-0 Anion gap [Moles/Vol] 12.7 mmol/L Normal 6.0-15.0 [facility] Comment on above: Performed By: #### H S TROP #### [address] Calcium [Mass/Vol] 8.7 mg/dL Normal 8.6-10.3 [facility] Comment on above: Performed By: #### H S TROP #### [facility] [address] [place] [id number] [place] Chloride [Moles/Vol] 100 mmol/L Normal 98-107 [facility] Comment on above: Performed By: #### H S TROP #### [facility] [address] [place] [id number] [place] CO2 [Moles/Vol] 26.1 mmol/L Normal 21.0-31.0 [facility] Comment on above: Performed By: #### H S TROP #### [place] [id number] [place] Creatinine [Mass/Vol] 1.37 mg/dL High 0.60-1.20 [facility] Comment on above: Performed By: #### H S TROP #### [place] [address] [place] Creatinine Clr Calc Pharmacy 42.97 Normal [facility] Comment on above: Performed By: #### H S TROP #### [place] [address] [place] GFR/1.73 sq M.predicted MDRD (S/P/Bld) [Vol rate/Area] 37.604 mL/min/{1.73_m2} Normal [facility] Comment on above: Performed By: #### H S TROP #### [address] Glucose [Mass/Vol] 180 mg/dL High 70-100 [facility] Comment on above: Result Comment: [place] Glucose Reference Range is dependent on time and content of last meal. Glucose of more than 200 mg/dL in a nonstressed, ambulatory subject supports the diagnosis of Diabetes Mellitus. ADA recommended reference range Performed By: #### H S TROP #### [address] Potassium [Moles/Vol] 3.8 mmol/L Normal 3.5-5.1 [facility] Comment on above: Performed By: #### H S TROP #### [place] [address] [place] Sodium [Moles/Vol] 135 mmol/L Low 136-145 [facility] Comment on above: Performed By: #### H S TROP #### [place] [address] [place] Urea nitrogen [Mass/Vol] 44 mg/dL High 7-25 [facility] Comment on above: Performed By: #### H S TROP #### [address] Bilirubin.direct [Mass/volum e] in Serum or PlasmaOrdered By: Apryl Shirley on 12-26-2023 Bilirubin.direct [Mass/Vol] 0.10 mg/dL 0.03-0.18 [facility] Complete Blood Count Auto Di ffon 12-26-2023 Basophils (Bld) [#/Vol] 0.0 10*3/uL Normal 0.0-0.2 [facility] Comment on above: Result Comment: PERF ORMED BY: [place] [address] PATHOLOGIST MICROFICHE DUPLICATOR CINDY BRADSHAW M.D. Performed By: #### H S TROP #### [address] Basophils/100 WBC (Bld) 0.6 % Normal . [facility] Comment on above: Performed By: #### H S TROP #### [address] Eosinophils (Bld) [#/Vol] 0.2 10*3/uL Normal 0.0-0.45 [facility] Comment on above: Performed By: #### H S TROP #### [address] Eosinophils/100 WBC (Bld) 2.2 % Normal . [facility] Comment on above: Performed By: #### H S TROP #### [address] Erythrocyte distribution width (RBC) [Ratio] 14.8 % Normal 11.9-15.3 [facility] Comment on above: Performed By: #### H S TROP #### [address] Hematocrit (Bld) [Volume fraction] 42.0 % Normal 34.0-46.4 [facility] Comment on above: Performed By: #### H S TROP #### [address] Hemoglobin (Bld) [Mass/Vol] 14.1 g/dL Normal 11.8-15.4 [facility] Comment on above: Performed By: #### H S TROP #### [place] [address] [place] Lymphocytes (Bld) [#/Vol] 2.2 10*3/uL Normal 1.00-4.8 [facility] Comment on above: Performed By: #### H S TROP #### [address] Lymphocytes/100 WBC (Bld) 30.0 % Normal . [facility] Comment on above: Performed By: #### H S TROP #### [address] MCH (RBC) [Entitic mass] 31.5 pg Normal 24.7-34.3 [facility] Comment on above: Performed By: #### H S TROP #### [address] MCV (RBC) [Entitic vol] 93.9 fL Normal 80-100 [facility] Comment on above: Performed By: #### H S TROP #### [address] Mean Corpuscular HGB Conc 33.6 g/dL Normal 32.0-35.0 [facility] Comment on above: Performed By: #### H S TROP #### [address] Monocytes (Bld) [#/Vol] 0.9 10*3/uL High 0.0-0.8 [facility] Comment on above: Performed By: #### H S TROP #### [address] Monocytes/100 WBC (Bld) 12.2 % Normal . [facility] Comment on above: Performed By: #### H S TROP #### [address] Neutrophils (Bld) [#/Vol] 4.1 10*3/uL Normal 1.8-7.7 [facility] Comment on above: Performed By: #### H S TROP #### [address] Neutrophils/100 WBC (Bld) 55.0 % Normal . [facility] Comment on above: Performed By: #### H S TROP #### [address] NRBC% 0.2 /100{WBC} Normal 0-0.5 [facility] Comment on above: Performed By: #### H S TROP #### [place] [id number] [facility] Platelet mean volume (Bld) [Entitic vol] 10.1 fL Normal 6.3-10.7 [facility] Comment on above: Performed By: #### H S TROP #### [place] [address] [place] Platelets (Bld) [#/Vol] 168 10*3/uL Normal 150-450 [facility] Comment on above: Performed By: #### H S TROP #### [address] RBC (Bld) [#/Vol] 4.47 10*6/uL Normal 3.60-5.00 [facility] Comment on above: Performed By: #### H S TROP #### [place] [address] [place] WBC (Bld) [#/Vol] 7.4 10*3/uL Normal 3.8-11.6 [facility] Comment on above: Performed By: #### H S TROP #### [address] ECG 12 lead ECGon 12-26-2023 ECG [address] [facility] [place] [address] Electrocardiograph Report Signed Patient: Mohan Espinoza MR#: [id number] 8 : 1935 Acct:[id number] Age/Sex: 88 / F ADM Date: 12/25/23 Loc: Room: [address] [place] [address] Type: ADM IN Attending Dr: Apryl Shirley MD Ordering Provider: Apryl Shirley MD Date of Service: 12/26/2309/12/499 ECG/ECG 12 lead ECG: Elevated tropnin Copies to: Test Reason : Blood Pressure : */* mmHG Vent. Rate : 62 BPM Atrial Rate : * BPM P-R Int : * ms QRS Dur : 96 ms QT Int : 478 ms P-R-T Axes : * -6 63 degrees QTcB Int : 485 ms Atrial fibrillation Prolonged QT Abnormal ECG Confirmed by Nubia Holley ([id number]) on 12/26/2023 3:04:05 PM Referred By: Electronically Signed By: Nubia Holley Transcribed By: MUS Signed By Nubia Holley MD 4 1504 Normal [facility] Glucose Poct Glucometerson 1 Glucose [Mass/Vol] 287 mg/dL Normal [facility] Comment on above: Result Comment: [facility] Glucose Reference Range is dependent on time and content of last meal. Glucose of more than 200 mg/dL in a nonstressed, ambulatory subject supports the diagnosis of Diabetes Mellitus. PERFORMED BY: [place] [address] PATHOLOGIST MICROFICHE DUPLICATOR CINDY BRADSHAW M.D. Performed By: #### [employer] #### [address] Glucose [Mass/Vol] 217 mg/dL Normal [facility] Comment on above: Result Comment: [facility] Glucose Reference Range is dependent on time and content of last meal. Glucose of more than 200 mg/dL in a nonstressed, ambulatory subject supports the diagnosis of Diabetes Mellitus. PERFORMED BY: [place] [address] PATHOLOGIST MICROFICHE DUPLICATOR CINDY BRADSHAW M.D. Performed By: #### G LULS #### Point of Care testing , Glucose [Mass/Vol] 286 mg/dL Normal [facility] Comment on above: Result Comment: [facility] Glucose Reference Range is dependent on time and content of last meal. Glucose of more than 200 mg/dL in a nonstressed, ambulatory subject supports the diagnosis of Diabetes Mellitus. PERFORMED BY: [place] [id number] PATHOLOGIST MICROFICHE DUPLICATOR CINDY BRADSHAW M.D. Performed By: #### G LULS #### Point of Care testing , Glucose [Mass/Vol] 155 mg/dL Normal [facility] Comment on above: Result Comment: [place] Glucose Reference Range is dependent on time and content of last meal. Glucose of more than 200 mg/dL in a nonstressed, ambulatory subject supports the diagnosis of Diabetes Mellitus. PERFORMED BY: [place] [address] PATHOLOGIST MICROFICHE DUPLICATOR CINDY BRADSHAW M.D. Performed By: #### G LUJIMMIE #### Point of Care testing , Hepatic Panelon 12-26-2023 Albumin [Mass/Vol] 3.3 g/dL Low 3.5-5.7 [facility] Comment on above: Performed By: #### H S TROP #### [address] Bilirubin,Indirect 0.4 mg/dL Normal [facility] Comment on above: Performed By: #### H S TROP #### [address] Bilirubin.indirect [Mass/Vol] 0.10 mg/dL Normal 0.03-0.18 [facility] Comment on above: Performed By: #### H S TROP #### [address] Hepatic PanelOrdered By: Dhara Shirley on 12-26-2023 Albumin/Globulin [Mass ratio] 1.0 {ratio} Normal [facility] Comment on above: Performed By: #### H S TROP #### [address] ALP [Catalytic activity/Vol] 77 U/L Normal 34-104 [facility] Comment on above: Performed By: #### H S TROP #### [address] ALT [Catalytic activity/Vol] 11 U/L Normal 7-52 [facility] Comment on above: Performed By: #### H S TROP #### [address] AST [Catalytic activity/Vol] 17 U/L Normal 13-39 [facility] Comment on above: Performed By: #### H S TROP #### [facility] [address] [place] [address] Bilirubin [Mass/Vol] 0.5 mg/dL Normal 0.3-1.0 [facility] Comment on above: Performed By: #### H S TROP #### [facility] [address] [place] [address] Globulin (S) [Mass/Vol] 3.4 g/dL Normal [facility] Comment on above: Performed By: #### H S TROP #### [facility] [address] [place] [address] Protein [Mass/Vol] 6.7 g/dL Normal 6.4-8.9 [facility] Comment on above: Performed By: #### H S TROP #### [facility] [address] [place] [address] Magnesiumon 12-26-2023 Magnesium [Mass/Vol] 2.1 mg/dL Normal 1.9-2.7 [facility] Comment on above: Performed By: #### H S TROP #### [address] Serum or plasma non-glucuron idated bilirubin measurement (mass/volume)Ordered By: Apryl Shirley on 12-26-2023 Bilirubin.indirect [Mass/Vol] 0.4 mg/dL [facility] Thyroid Stimulating HormoneO rdered By: Ren Mohan on 12-26-2023 TSH Qn 0.61 m[IU]/L Normal 0.45-5.33 [facility] Comment on above: Result Comment: PERF ORMED BY: [place] [address] PATHOLOGIST MICROFICHE DUPLICATOR CINDY BRADSHAW M.D. Performed By: #### H S TROP #### [facility] [address] [place] [address] Troponin I High Sensitivityo n 12-26-2023 Troponin I High Sensitivity 73.3 pg/mL Off scale high 0.0-15.0 [facility] Comment on above: Result Comment: Crit ical Result : Called to and read back by: CLAUDIA ARELLANO at: 12/26/2023 07:38:15 by:SPENCER PERFORMED BY: [place] [address] PATHOLOGIST MICROFICHE DUPLICATOR CINDY BRADSHAW M.D. Performed By: #### H S TROP #### [address] Troponin I.cardiac [Mass/vol ume] in Serum or Plasma by Detection limit <= 0.01 ng/Ordered By: Apryl Shirley on 12-26-2023 Troponin I.cardiac DL <= 0.01 ng/mL [Mass/Vol] 73.3 pg/mL High 0.0-15.0 [facility] Comment on above: Critical Result : Ca lled to and read back by: CLAUDIA ARELLANO at: 12/26/2023 07:38:15 by:SPENCER XR chest 1V portableon 12-25 XR chest 1V portable [facility] [place] [address] [place] [address] XRay Report Signed Patient: Mohan Espinoza MR#: [id number] 8 : 1935 Acct:[id number] Age/Sex: 88 / F ADM Date: 12/25/23 Loc: Room: [address] [place] [address] Type: ADM IN Attending Dr: Apryl Shirley MD Copies to: Apryl Shirley MD Ordering Provider: Apryl Shirley MD Date of Service: 12/26/23 XR/XR chest 1V portable: PNA SINGLE VIEW CHEST CLINICAL HISTORY: Weakness, shortness of breath wheezing COMPARISON: Chest 06/21/2022 FINDINGS: Sternotomy wires are noted. Post CABG changes. No consolidation pneumothorax pleural effusion or free air. XR/XR chest 1V portable IMPRESSION: NO ACUTE FINDINGS Impression dictated by: Ck Dove Jr., D.OAshish12/26/2023 9:37 AM Dictation Location: [facility]IO-PC-15 Transcribed By: SANA 12/26/23936 Dictated By: Ck Dove Jr, DO 12/26/23935 Signed By: 12/26/23936 Normal [facility] A1C with Estimated Average G luon 12-25-2023 Glucose [Mass/Vol] 177 mg/dL Normal [facility] Comment on above: Result Comment: PERF ORMED BY: [place] [address] PATHOLOGIST MICROFICHE DUPLICATOR CINDY BRADSHAW M.D. Performed By: #### H S TROP #### [facility] [address] [place] [address] A1C with Estimated Average G luOrdered By: Ren Mohan on 12-25-2023 HbA1c (Bld) [Mass fraction] 7.8 % High 4.3-5.6 [facility] Comment on above: Result Comment: Incr eased risk for diabetes: 5.7 - 6.4 diabetes: >6.4 glycemic control for adults with diabetes: <7.0 Performed By: #### H S TROP #### [facility] [address] [place] [address] Increased risk for d iabetes: 5.7 - 6.4diabetes: >6.4glycemic control for adults with diabetes: <7.0 Activated partial thrombopla stin time (aPTT) in platelet poor plasma by coagulation aOrdered By: Ren Mohan on 12-25-2023 aPTT Coag (PPP) [Time] 33.2 s 25.1-36.5 [facility] Comment on above: A hematocrit value g reater than 55% may lead to inaccurate results in coagulation testing. Patients having hematocrit values >55% require a special collection tube for coagulation studies. Please contact the laboratory at [phone] for redraw instructions. Basic Metabolic Panelon Anion gap [Moles/Vol] 14.8 mmol/L Normal 6.0-15.0 Th [facility] Comment on above: Order Comment: FASTI NG N Performed By: #### G LULS #### Point of Care testing , Calcium [Mass/Vol] 8.5 mg/dL Low 8.6-10.3 [facility] Comment on above: Order Comment: FASTI NG N Performed By: #### G LULS #### Point of Care testing , Chloride [Moles/Vol] 99 mmol/L Normal 98-107 [facility] Comment on above: Order Comment: FASTI NG N Performed By: #### G LULS #### Point of Care testing , CO2 [Moles/Vol] 25.5 mmol/L Normal 21.0-31.0 [facility] Comment on above: Order Comment: FASTI NG N Performed By: #### G LULS #### Point of Care testing , Creatinine [Mass/Vol] 1.84 mg/dL High 0.60-1.20 [facility] Comment on above: Order Comment: FASTI NG N Performed By: #### G LULS #### Point of Care testing , Creatinine Clr Calc Pharmacy 31.63 Normal [facility] Comment on above: Order Comment: FASTI NG N Performed By: #### G LULS #### Point of Care testing , GFR/1.73 sq M.predicted MDRD (S/P/Bld) [Vol rate/Area] 26.395 mL/min/{1.73_m2} Normal [facility] Comment on above: Order Comment: FASTI NG N Performed By: #### G LULS #### Point of Care testing , Glucose [Mass/Vol] 258 mg/dL High 70-100 [facility] Comment on above: Order Comment: FASTI NG N Result Comment: [place] Glucose Reference Range is dependent on time and content of last meal. Glucose of more than 200 mg/dL in a nonstressed, ambulatory subject supports the diagnosis of Diabetes Mellitus. ADA recommended reference range Performed By: #### G LULS #### Point of Care testing , Potassium [Moles/Vol] 4.3 mmol/L Normal 3.5-5.1 [facility] Comment on above: Order Comment: FASTI NG N Performed By: #### G LULS #### Point of Care testing , Sodium [Moles/Vol] 135 mmol/L Low 136-145 [facility] Comment on above: Order Comment: FASTI NG N Performed By: #### G LULS #### Point of Care testing , Urea nitrogen [Mass/Vol] 45 mg/dL High 7-25 [facility] Comment on above: Order Comment: FASTI NG N Performed By: #### G LULS #### Point of Care testing , BioFire Not Detectedon 12-24 BioFire Not Detected Not detected Normal Not Detecte [facility] Comment on above: Result Comment: This is a duplicate RP2.1 COVID (PCR) result to be used for statistical tracking purpose only. PERFORMED BY: [place] [address] PATHOLOGIST MICROFICHE DUPLICATOR CINDY BRADSHAW M.D. Performed By: #### G LULS #### Point of Care testing , Blood Cultureon 12-25-2023 Bacteria identified Cx Nom (Bld) NO GROWTH 5 DAYS PERFORMED BY: [place] [id number] PATHOLOGIST MICROFICHE DUPLICATOR CINDY BRADSHAW M.D. Normal [facility] Comment on above: Performed By: #### G LULS #### Point of Care testing , COVID-19 Detected/Not Detect edOrdered By: Ren Mohan on 12-25-2023 SARS-CoV-2 (COVID-19) RNA COLIN+non-probe Ql (Nph) Not detected Not Detecte [facility] Comment on above: This is a duplicate RP2.1 COVID (PCR) result to be used for statistical tracking purpose only. Cholesterol in LDL Calc [Mas s/Vol]Ordered By: Ren Mohan on 12-25-2023 Cholesterol in LDL [Mass/Vol] 115 mg/dL High 0-100 [facility] Comment on above: LDL ATP III CLASSIFI CATIONLDL less than 100 mg/dL OptimalLDL 100-129 mg/dL Near or above optimalLDL 130-159 mg/dL Borderline highLDL 160-189 mg/dL HighLDL greater than 189 mg/dL Very high Cholesterol in VLDL Calc [Ma ss/Vol]Ordered By: Ren Moahn on 12-25-2023 Cholesterol in VLDL [Mass/Vol] 23 mg/dL [facility] Complete Blood Count Auto Di ffon 12-25-2023 Basophils (Bld) [#/Vol] 0.1 10*3/uL Normal 0.0-0.2 [facility] Comment on above: Result Comment: PERF ORMED BY: [facility] [place] [address] PATHOLOGIST MICROFICHE DUPLICATOR CINDY BRADSHAW M.D. Performed By: #### G LULS #### Point of Care testing , Basophils/100 WBC (Bld) 0.5 % Normal . [facility] Comment on above: Performed By: #### G LULS #### Point of Care testing , Eosinophils (Bld) [#/Vol] 0.0 10*3/uL Normal 0.0-0.45 [facility] Comment on above: Performed By: #### G LULS #### Point of Care testing , Eosinophils/100 WBC (Bld) 0.0 % Normal . [facility] Comment on above: Performed By: #### G LULS #### Point of Care testing , Erythrocyte distribution width (RBC) [Ratio] 14.7 % Normal 11.9-15.3 [facility] Comment on above: Performed By: #### G LULS #### Point of Care testing , Hematocrit (Bld) [Volume fraction] 42.8 % Normal 34.0-46.4 [facility] Comment on above: Performed By: #### G LULS #### Point of Care testing , Hemoglobin (Bld) [Mass/Vol] 14.4 g/dL Normal 11.8-15.4 [facility] Comment on above: Performed By: #### G LULS #### Point of Care testing , Lymphocytes (Bld) [#/Vol] 1.5 10*3/uL Normal 1.00-4.8 [facility] Comment on above: Performed By: #### G LULS #### Point of Care testing , Lymphocytes/100 WBC (Bld) 9.8 % Normal . [facility] Comment on above: Performed By: #### G LULS #### Point of Care testing , MCH (RBC) [Entitic mass] 31.4 pg Normal 24.7-34.3 [facility] Comment on above: Performed By: #### G LULS #### Point of Care testing , MCV (RBC) [Entitic vol] 93.2 fL Normal 80-100 [facility] Comment on above: Performed By: #### G LULS #### Point of Care testing , Mean Corpuscular HGB Conc 33.7 g/dL Normal 32.0-35.0 [facility] Comment on above: Performed By: #### G LULS #### Point of Care testing , Monocytes (Bld) [#/Vol] 0.7 10*3/uL Normal 0.0-0.8 [facility] Comment on above: Performed By: #### G LULS #### Point of Care testing , Monocytes/100 WBC (Bld) 5.0 % Normal . [facility] Comment on above: Performed By: #### G LULS #### Point of Care testing , Neutrophils (Bld) [#/Vol] 12.6 10*3/uL High 1.8-7.7 [facility] Comment on above: Performed By: #### G LULS #### Point of Care testing , Neutrophils/100 WBC (Bld) 84.7 % Normal . [facility] Comment on above: Performed By: #### G LULS #### Point of Care testing , NRBC% 0.1 /100{WBC} Normal 0-0.5 [facility] Comment on above: Performed By: #### G LULS #### Point of Care testing , Platelet mean volume (Bld) [Entitic vol] 10.1 fL Normal 6.3-10.7 [facility] Comment on above: Performed By: #### G LULS #### Point of Care testing , Platelets (Bld) [#/Vol] 187 10*3/uL Normal 150-450 [facility] Comment on above: Performed By: #### G LULS #### Point of Care testing , RBC (Bld) [#/Vol] 4.59 10*6/uL Normal 3.60-5.00 [facility] Comment on above: Performed By: #### G LULS #### Point of Care testing , WBC (Bld) [#/Vol] 14.9 10*3/uL High 3.8-11.6 [facility] Comment on above: Performed By: #### G LULS #### Point of Care testing , Creatine KinaseOrdered By: Willem mustafabelen Kalpanarosa on 12-25-2023 CK [Catalytic activity/Vol] 52 U/L Normal 30-223 [facility] Comment on above: Performed By: #### G LULS #### Point of Care testing , Glucose Poct Glucometerson 1 Glucose [Mass/Vol] 232 mg/dL Normal [facility] Comment on above: Result Comment: [facility] Glucose Reference Range is dependent on time and content of last meal. Glucose of more than 200 mg/dL in a nonstressed, ambulatory subject supports the diagnosis of Diabetes Mellitus. PERFORMED BY: [place] [id number] PATHOLOGIST MICROFICHE DUPLICATOR CINDY BRADSHAW M.D. Performed By: #### G LULS #### Point of Care testing , Glucose [Mass/Vol] 213 mg/dL Normal [facility] Comment on above: Result Comment: [facility] Glucose Reference Range is dependent on time and content of last meal. Glucose of more than 200 mg/dL in a nonstressed, ambulatory subject supports the diagnosis of Diabetes Mellitus. PERFORMED BY: [address] [place] [address] PATHOLOGIST MICROFICHE DUPLICATOR CINDY BRADSHAW M.D. Performed By: #### G LULS #### Point of Care testing , Glucose [Mass/Vol] 252 mg/dL Normal [facility] Comment on above: Result Comment: [facility] Glucose Reference Range is dependent on time and content of last meal. Glucose of more than 200 mg/dL in a nonstressed, ambulatory subject supports the diagnosis of Diabetes Mellitus. PERFORMED BY: [address] [place] [address] PATHOLOGIST MICROFICHE DUPLICATOR CINDY BRADSHAW M.D. Performed By: #### G LULS #### Point of Care testing , Glucose [Mass/Vol] 202 mg/dL Normal [facility] Comment on above: Result Comment: [facility] Glucose Reference Range is dependent on time and content of last meal. Glucose of more than 200 mg/dL in a nonstressed, ambulatory subject supports the diagnosis of Diabetes Mellitus. PERFORMED BY: [facility] [address] [place] [id number] PATHOLOGIST MICROFICHE DUPLICATOR CINDY BRADSHAW M.D. Performed By: #### G LULS #### Point of Care testing , Glucose mean value [Mass/vol ume] in Blood Estimated from glycated hemoglobinOrdered By: Ren Mohan on 12-25-2023 Average glucose Estimated from glycated hemoglobin (Bld) [Mass/Vol] 177 mg/dL [facility] Lipid PanelOrdered By: Nik Mohan on 12-25-2023 Cholesterol [Mass/Vol] 166 mg/dL Normal 140-200 [facility] Comment on above: Order Comment: FASTI NG N Result Comment: Chol less than 200 mg/dl low risk Chol 201-239 mg/dl borderline risk Chol 240 mg/dl and greater high risk Performed By: #### G LULS #### Point of Care testing , Chol less than 200 m g/dl low riskChol 201-239 mg/dl borderline riskChol 240 mg/dl and greater high risk Cholesterol in HDL [Mass/Vol] 27 mg/dL Normal 23-92 [facility] Comment on above: Order Comment: FASTI NG N Result Comment: HDL CHOL ATP-III CLASSIFICATION Cardiovascular Risk HDL > or equal to 60 mg/dL LOW HDL < 40 mg/dL HIGH Performed By: #### G LULS #### Point of Care testing , HDL CHOL ATP-III CLA SSIFICATION Cardiovascular RiskHDL > or equal to 60 mg/dL LOWHDL < 40 mg/dL HIGH Cholesterol.total/Chol esterol in HDL [Mass ratio] 6.1 {ratio} Normal <5.0 [facility] Comment on above: Order Comment: FASTI NG N Result Comment: PERF ORMED BY: [facility] [address] [place] [address] PATHOLOGIST MICROFICHE DUPLICATOR CINDY BRADSHAW M.D. Performed By: #### G LULS #### Point of Care testing , Lipid Panelon 12-25-2023 LDL Cholesterol,Calculated 115 mg/dL High 0-100 [facility] Comment on above: Order Comment: FASTI NG N Result Comment: LDL ATP III CLASSIFICATION LDL less than 100 mg/dL Optimal LDL 100-129 mg/dL Near or above optimal LDL 130-159 mg/dL Borderline high LDL 160-189 mg/dL High LDL greater than 189 mg/dL Very high Performed By: #### G LULS #### Point of Care testing , Triglyceride w/Reflex 118 mg/dL Normal 0-149 [facility] Comment on above: Order Comment: FASTI NG N Result Comment: TRIG ATP III CLASSIFICATION TRIG less than 150 mg/dL Normal TRIG 150-199 mg/dL Borderline high TRIG 200-500 mg/dL High TRIG greater than 500 mg/dL Very high Standard traceable to the Center for Disease Conrtrol and Prevention (CDC) test method. Performed By: #### G LULS #### Point of Care testing , VLDL CHOLESTEROL 23 mg/dL Normal [facility] Comment on above: Order Comment: FASTI NG N Performed By: #### G LULS #### Point of Care testing , Magnesiumon 12-25-2023 Magnesium [Mass/Vol] 1.3 mg/dL Low 1.9-2.7 [facility] Comment on above: Order Comment: FASTI NG N Performed By: #### G LULS #### Point of Care testing , Partial Thromboplastin Timeo n 12-25-2023 aPTT Coag (Bld) [Time] 33.2 s Normal 25.1-36.5 [facility] Comment on above: Result Comment: A he matocrit value greater than 55% may lead to inaccurate results in coagulation testing. Patients having hematocrit values >55% require a special collection tube for coagulation studies. Please contact the laboratory at [phone] for redraw instructions. PERFORMED BY: [facility] [address] [address] PATHOLOGIST MICROFICHE DUPLICATOR CINDY BRADSHAW M.D. Performed By: #### P TT #### [address] Prothrombin Time INROrdered By: Ren Mohan on 12-25-2023 INR Coag (PPP) [Relative time] 1.2 {INR} Normal [facility] Comment on above: Result Comment: INR Therapeutic Range A) Pre- and Peroperative OAT started two weeks before surgery. NOT HIP SURGERY: 1.5 - 2.5 HIP SURGERY: 2 - 3 B) Primary and secondary prevention of venous THROMBOSIS: 2 - 3 C) Active venous thrombosis, pulmonary embolism and prevention of recurrent venous thrombosis: 2 - 3 D) Prevention of arterial thromboembolism including patients with mechanical heart valves: 3 - 4.5 PERFORMED BY: [place] [address] PATHOLOGIST MICROFICHE DUPLICATOR CINDY BRADSHAW M.D. Performed By: #### G LULS #### Point of Care testing , INR Therapeutic Rang e A) Pre- and Peroperative OAT started two weeks before surgery. NOT HIP SURGERY: 1.5 - 2.5 HIP SURGERY: 2 - 3B) Primary and secondary prevention of venous THROMBOSIS: 2 - 3C) Active venous thrombosis, pulmonary embolismand prevention of recurrent venous thrombosis: 2 - 3D) Prevention of arterial thromboembolismincluding patients with mechanical heart valves: 3 - 4.5 PT Coag (PPP) [Time] 14.1 s High 9.0-12.9 [facility] Comment on above: Result Comment: A he matocrit value greater than 55% may lead to inaccurate results in coagulation testing. Patients having hematocrit values >55% require a special collection tube for coagulation studies. Please contact the laboratory at [phone] for redraw instructions. Performed By: #### G LULS #### Point of Care testing , A hematocrit value g reater than 55% may lead to inaccurate results in coagulation testing. Patients having hematocrit values >55% require a special collection tube for coagulation studies. Please contact the laboratory at [phone] for redraw instructions. Respiratory (Upper) Panel, P CRon 12-25-2023 Respiratory (Upper) Panel, PCR Adenovirus Not detected Bordetella parapertussis Not detected Chlamydia pneumoniae Not detected Coronavirus 229E Not detected Coronavirus HKU1 Not detected Coronavirus NL63 Not detected Coronavirus OC43 Not detected Influenza A Not detected Influenza B Not detected Human Metapneumovirus Not detected Mycoplasma pneumoniae Not detected Parainfluenza Virus 1 Not detected Parainfluenza Virus 2 Not detected Parainfluenza Virus 3 Not detected Parainfluenza Virus 4 Not detected Bordetella pertussis-ptxP Not detected Human Rhino/Enterovirus Not detected Resp. Syncytial Virus Not detected COVID-19 Detected/Not Detected Not detected Blank Space -- FLUA TEST INCLUDES Influenza A tests for the following clinically FLUA TEST INCLUDES significant subtypes: FLUA TEST INCLUDES - Influenza A FLUA TEST INCLUDES - Influenza A H1 FLUA TEST INCLUDES - Influenza A H1 2009 FLUA TEST INCLUDES - Influenza A H3 Blank Space -- PERFORMED BY: [address] [place] [address] PATHOLOGIST MICROFICHE DUPLICATOR CINDY BRADSHAW M.D. Normal [facility] Comment on above: Performed By: #### G LUJIMMIE #### Point of Care testing , Respiratory pathogens DNA an d RNA panel - Nasopharynx by COLIN with non-probe detectionOrdered By: Ren Mohan on 12-25-2023 Respiratory pathogens DNA and RNA panel COLIN+non-probe (Nph) [facility] Triglyceride [Mass/volume] i n Serum or PlasmaOrdered By: Ren Mohan on 12-25-2023 Triglyceride [Mass/Vol] 118 mg/dL 0-149 [facility] Comment on above: TRIG ATP III CLASSIF ICATIONTRIG less than 150 mg/dL NormalTRIG 150-199 mg/dL Borderline highTRIG 200-500 mg/dL High TRIG greater than 500 mg/dL Very highStandard traceable to the Center for Disease Conrtrol and Prevention (CDC) test method. Troponin I High Sensitivityo n 12-25-2023 Troponin I High Sensitivity 282.7 pg/mL Off scale high 0.0-15.0 [facility] Comment on above: Result Comment: Derrick wild Result : Called to and read back by: ARMANI GUDINO at: 12/25/2023 07:36:52 by:SPENCER PERFORMED BY: [facility] [address] [place] [address] PATHOLOGIST MICROFICHE DUPLICATOR CINDY BRADSHAW M.D. Performed By: #### G LULS #### Point of Care testing , Office Visit (Cardiology)on 09-30-2022 Follow-up visit Diagnoses/Problems [...] Aminotransferase, Serum; Status:Active - Retrospective Authorization; Requested for:[id number]; AST; Status:Active - Retrospective Authorization; Requested for:[id number]; Basic Metabolic Panel; Status:Active - Retrospective Authorization; Requested for:[id number]; Lipid Panel; Status:Active - Retrospective Authorization; Requested for:[id number]; SocHx: Never a smoker Tobacco Use Screening; Status:Complete; Done: [id number] Patient Instructions Please bring all medicines, vitamins, [...] try to obtain most recent labs at [facility] in last two weeks if no lipid [...] By: Yoan Dobbs MD (Gastroenterology) History of [place] filter placement Past Medical History Problems History [...] negative for complaint. Vitals Vital Signs Recorded: [id number] 09:09AM Heart Rate56 Ailobniz094, LUE, Sitting Swdruvcew73, LUE, Sitting Height5 ft 8 in Tobacco [...] . Psyc (more content not included)... Normal Touchworks [facility] CARDIAC STRESS/REST INJE CTIONon 07-23-2022 [facility] CARDIAC STRESS/REST INJECTION Patient Name: MOHAN ESPINOZA STUDY: MYOCARDIAL PERFUSION STRESS TEST WITH LEXISCAN Performing facility: [facility], [address] [place] [address], [address], [address] Provider: Leanna Casey DO, FACC PCP: Dr. Ruben Schultz Supervising provider: Yu Barriga MD, FACC INDICATION: A-fib ASHD CHF HISTORY: Gender: F; Age: 87 y/o ; Height: 0 cm; Weight: 346.0298906 kg. CAD; Diabetes; Previous AR; Arrhythmias; Denies smoking. CABG on 2007. COMPARISON: No comparison. ACCESSION NUMBER(S): [id number]; [id number]; [id number] ORDERING CLINICIAN: JOSELUIS CASEY TECHNIQUE: TWO DAY [...] Electronically signed by: STEPHANIE HANCOCK MD Normal [facility] Height or Weight NOT Doneon 07-01-2022 Adult depression screening assessment Yes [facility] [email or web address] DO Work Phone: Adult depression screening assessment Moderately Severe (15-19) M [facility] [employer] 250 DO Work Phone: Fall risk assessment a) No falls within the last year [facility] [employer] 250 DO Work Phone: Tobacco use status [facility] b) No [facility] [employer] 250 DO Work Phone: Height or Weight NOT Done 3-Nearly every day [facility] [employer] 250 DO Work Phone: Height or Weight NOT Done 1-Several days [facility] [employer] 250 DO Work Phone: Height or Weight NOT Done 0-Not at all [facility] [employer] 250 DO Work Phone: Height or Weight NOT Done Very Difficult -[facility] Heart-Sandu salvador 250 DO Work Phone: Office Visit (Cardiology)on [...] Stress/Rest Nuclear Med Order; Status:Hold For - Scheduling,Retrospective Authorization; Requested for:01Jul2022; Radiologist to Determine Optimal Study : Y What are the patient's signs and symptoms? : cad afib Afib, ASHD (arteriosclerotic heart disease), CHF (congestive heart failure), NYHA class III, Ischemic cardiomyopathy Basic Metabolic Panel; Status:Active - Retrospective Authorization; Requested for:[id number]; Brain Natriuretic Peptide BNP; Status:Active - Retrospective Authorization; Requested for:[id number]; Health Maintenance Depression Follow-up Visit Outpatient Follow-up Status: Complete - Retrospective Authorization Done: [id number] SocHx: Never a smoker Tobacco Use Screening; Status:Complete; Done: [id number] Tobacco Use Screening; Status:Complete; Done: [id number] Patient Instructions Please bring all medicines, vitamins, and herbal supplements with you when you come to the office. Prescriptions will not be filled unless you are compliant with your follow up appointments or have a follow up appointment scheduled as per instruction of your physician. Refills should be requested at the time of your visit. Follow up in [12 ] weeks Chief Complaint [facility] D/C 06/23/22. 86-year-old female returns for follow-up [...] 45% which is a change from her 2019 echo (normal at that time) Her coronary [...] Dilia RAMIREZ, Yoan Li (Gastroenterology) History of Low[place] filter placement Past Medical History Problems History [...] Recorded: 01Jul2022 09:34AM Heart Rate68, L Radial Muzzyzpn716, RUE, Sitting Nhnnfoibj80, RUE, Sitting Height5 ft 8 in Height or Weight NOT Done (more content not included)... Normal Touchworks Calcium [Mass/volume] in Ser um or PlasmaOrdered By: Brissa Hoffman on 06-29-2022 Calcium [Mass/Vol] 8.8 mg/dL 8.6-10.3 [facility] Carbon dioxide, total [Moles /volume] in Serum or PlasmaOrdered By: Brissa Hoffman on 06-29-2022 CO2 [Moles/Vol] 32.3 mmol/L 21.0-31.0 [facility] Chloride [Moles/volume] in S octaviano or PlasmaOrdered By: Brissa Hoffman on 06-29-2022 Chloride [Moles/Vol] 100 mmol/L 98-107 [facility] Creatinine [Mass/volume] in Serum or PlasmaOrdered By: Brissa Hoffman on 06-29-2022 Creatinine [Mass/Vol] 1.66 mg/dL 0.60-1.20 [facility] Glucose [Mass/volume] in Ser um or PlasmaOrdered By: Brissa Hoffman on 06-29-2022 Glucose [Mass/Vol] 245 mg/dL 70-100 [facility] Comment on above: ADA recommended refe rence rangeRandom Glucose Reference Range is dependent on time and content of last meal. Glucose of more than 200 mg/dL in a nonstressed, ambulatory subject supports the diagnosis of Diabetes Mellitus. No Panel InformationOrdered By: Brissa Hoffman on 06-29-2022 Estimated GFR (CKD-EPI) 30.239 mL/Min [facility] Creatinine Clearance (Chem N/A [facility] Potassium [Moles/volume] in Serum or PlasmaOrdered By: Brissa Hoffman on 06-29-2022 Potassium [Moles/Vol] 4.6 mmol/L 3.5-5.1 [facility] Serum or plasma anion gap de terminationOrdered By: Brissa Hoffman on 06-29-2022 Anion gap [Moles/Vol] 9.3 mmol/L 6.0-15.0 [facility] Sodium [Moles/volume] in Ser um or PlasmaOrdered By: Brissa Hoffman on 06-29-2022 Sodium [Moles/Vol] 137 mmol/L 136-145 [facility] Urea nitrogen [Mass/volume] in Serum or PlasmaOrdered By: Brissa Hoffman on 06-29-2022 Urea nitrogen [Mass/Vol] 31 mg/dL 7-25 [facility] Basophils Auto (Bld) [#/Vol] Ordered By: Brissa Hoffman on 06-23-2022 Basophils (Bld) [#/Vol] 0.1 10*3/uL 0.0-0.2 [facility] Basophils/100 WBC Auto (Bld) Ordered By: Brissa Hoffman on 06-23-2022 Basophils/100 WBC (Bld) 1.0 % . [facility] Calcium [Mass/volume] in Ser um or PlasmaOrdered By: Marta Casey on 06-23-2022 Calcium [Mass/Vol] 8.7 mg/dL 8.6-10.3 [facility] Carbon dioxide, total [Moles /volume] in Serum or PlasmaOrdered By: Marta Casey on 06-23-2022 CO2 [Moles/Vol] 26.3 mmol/L 21.0-31.0 [facility] Chloride [Moles/volume] in S octaviano or PlasmaOrdered By: Marta Casey on 06-23-2022 Chloride [Moles/Vol] 102 mmol/L 98-107 [facility] Creatine kinase [Enzymatic a ctivity/volume] in Serum or PlasmaOrdered By: Marta Casey on 06-23-2022 CK [Catalytic activity/Vol] 74 U/L 30-223 [facility] Creatinine [Mass/volume] in Serum or PlasmaOrdered By: Marta Casey on 06-23-2022 Creatinine [Mass/Vol] 1.44 mg/dL 0.60-1.20 [facility] Eosinophils Auto (Bld) [#/Vo l]Ordered By: Brissa Hoffman on 06-23-2022 Eosinophils (Bld) [#/Vol] 0.1 10*3/uL 0.0-0.45 [facility] Eosinophils/100 WBC Auto (Bl d)Ordered By: Brissa Hoffman on 06-23-2022 Eosinophils/100 WBC (Bld) 1.8 % . [facility] Erythrocyte distribution wid th Auto (RBC) [Ratio]Ordered By: Brissa Hoffman on 06-23-2022 Erythrocyte distribution width (RBC) [Ratio] 14.7 % 11.9-15.3 [facility] Glucose Glucometer (BldC) [M ass/Vol]Ordered By: Brissa Hoffman on 06-23-2022 Glucose [Mass/Vol] 230 mg/dL [facility] Comment on above: Random Glucose Refer ence Range is dependent on time and content of last meal. Glucose of more than 200 mg/dL in a nonstressed, ambulatory subject supports the diagnosis of Diabetes Mellitus. Glucose [Mass/volume] in Ser um or PlasmaOrdered By: Marta Casey on 06-23-2022 Glucose [Mass/Vol] 255 mg/dL 70-100 [facility] Comment on above: ADA recommended refe rence rangeRandom Glucose Reference Range is dependent on time and content of last meal. Glucose of more than 200 mg/dL in a nonstressed, ambulatory subject supports the diagnosis of Diabetes Mellitus. Hematocrit Auto (Bld) [Volum e fraction]Ordered By: Brissa Hoffman on 06-23-2022 Hematocrit (Bld) [Volume fraction] 41.2 % 34.0-46.4 [facility] Hemoglobin [Mass/volume] in BloodOrdered By: Brissa Hoffman on 06-23-2022 Hemoglobin (Bld) [Mass/Vol] 13.6 g/dL 11.8-15.4 [facility] Leukocytes [#/volume] correc ruma for nucleated erythrocytes in Blood by Automated counOrdered By: Brissa Hoffman on 06-23-2022 WBC corrected for nucl RBC Auto (Bld) [#/Vol] 6.4 10*3/uL 3.8-11.6 [facility] Lymphocytes Auto (Bld) [#/Vo l]Ordered By: Brissa Hoffman on 06-23-2022 Lymphocytes (Bld) [#/Vol] 1.6 10*3/uL 1.00-4.8 [facility] Lymphocytes/100 WBC Auto (Bl d)Ordered By: Brissa Hoffman on 06-23-2022 Lymphocytes/100 WBC (Bld) 24.6 % . [facility] MCH Auto (RBC) [Entitic mass ]Ordered By: Brissa Hoffman on 06-23-2022 MCH (RBC) [Entitic mass] 30.9 pg 24.7-34.3 [facility] MCHC Auto (RBC) [Mass/Vol]Or dered By: Brissa Hoffman on 06-23-2022 MCHC (RBC) [Mass/Vol] 33.0 g/dL 32.0-35.0 [facility] MCV Auto (RBC) [Entitic vol] Ordered By: Brissa Hoffman on 06-23-2022 MCV (RBC) [Entitic vol] 93.5 fL 80-100 [facility] Monocytes Auto (Bld) [#/Vol] Ordered By: Brissa Hoffman on 06-23-2022 Monocytes (Bld) [#/Vol] 0.8 10*3/uL 0.0-0.8 [facility] Monocytes/100 WBC Auto (Bld) Ordered By: Brissa Hoffman on 06-23-2022 Monocytes/100 WBC (Bld) 12.9 % . [facility] Neutrophils Auto (Bld) [#/Vo l]Ordered By: Brissa Hoffman on 06-23-2022 Neutrophils (Bld) [#/Vol] 3.8 10*3/uL 1.8-7.7 [facility] Neutrophils/100 WBC Auto (Bl d)Ordered By: Brissa Hoffman on 06-23-2022 Neutrophils/100 WBC (Bld) 59.7 % . [facility] No Panel InformationOrdered By: Marta Casey on 06-23-2022 Estimated GFR (CKD-EPI) 35.865 mL/Min [facility] Creatinine Clearance (Chem 42.65 [facility] Nucleated erythrocytes [Pres ence] in Blood by Automated countOrdered By: Brissa Hoffman on 06-23-2022 Nucleated RBC Auto Ql (Bld) 0.0 /100{WBC} 0-0.5 [facility] Platelet mean volume Auto (B ld) [Entitic vol]Ordered By: Brissa Hoffman on 06-23-2022 Platelet mean volume (Bld) [Entitic vol] 10.2 fL 6.3-10.7 [facility] Platelets Auto (Bld) [#/Vol] Ordered By: Brissa Hoffman on 06-23-2022 Platelets (Bld) [#/Vol] 147 10*3/uL 150-450 [facility] Potassium [Moles/volume] in Serum or PlasmaOrdered By: Marta Casey on 06-23-2022 Potassium [Moles/Vol] 4.2 mmol/L 3.5-5.1 [facility] RBC Auto (Bld) [#/Vol]Ordere d By: Brissa Hoffman on 06-23-2022 RBC (Bld) [#/Vol] 4.41 10*6/uL 3.60-5.00 [facility] Serum or plasma anion gap de terminationOrdered By: Marta Casey on 06-23-2022 Anion gap [Moles/Vol] 10.9 mmol/L 6.0-15.0 [facility] Sodium [Moles/volume] in Ser um or PlasmaOrdered By: Marta Casey on 06-23-2022 Sodium [Moles/Vol] 135 mmol/L 136-145 [facility] Troponin I.cardiac [Mass/vol ume] in Serum or Plasma by Detection limit <= 0.01 ng/Ordered By: Marta Casey on 06-23-2022 Troponin I.cardiac DL <= 0.01 ng/mL [Mass/Vol] 65.3 pg/mL 0.0-15.0 [facility] Comment on above: Critical Result : Ca lled to and read back by: CHELY HERNADEZ at: 06/23/2022 10:49:30 by:LEENA Urea nitrogen [Mass/volume] in Serum or PlasmaOrdered By: Marta Casey on 06-23-2022 Urea nitrogen [Mass/Vol] 37 mg/dL 7-25 [facility] WBC Auto (Bld) [#/Vol]Ordere d By: Brissa Hoffman on 06-23-2022 WBC (Bld) [#/Vol] 6.4 10*3/uL 3.8-11.6 [facility] Alanine aminotransferase [En zymatic activity/volume] in Serum or PlasmaOrdered By: Marcela Cano on 06-22-2022 ALT [Catalytic activity/Vol] 13 U/L 7-52 [facility] Albumin [Mass/volume] in Ser um or Plasma by Bromocresol green (BCG) dye binding methoOrdered By: Marcela Cano on 06-22-2022 Albumin BCG dye [Mass/Vol] 3.4 g/dL 3.5-5.7 [facility] Alkaline phosphatase [Enzyma tic activity/volume] in Serum or PlasmaOrdered By: Marcela Cano on 06-22-2022 ALP [Catalytic activity/Vol] 74 U/L 34-104 [facility] Aspartate aminotransferase [ Enzymatic activity/volume] in Serum or PlasmaOrdered By: Marcela Cano on 06-22-2022 AST [Catalytic activity/Vol] 16 U/L 13-39 [facility] Bilirubin.total [Mass/volume ] in Serum or PlasmaOrdered By: Marcela Cano on 06-22-2022 Bilirubin [Mass/Vol] 0.7 mg/dL 0.3-1.0 [facility] Cholesterol [Mass/volume] in Serum or PlasmaOrdered By: Marcela Cano on 06-22-2022 Cholesterol [Mass/Vol] 162 mg/dL 140-200 [facility] Comment on above: Chol less than 200 m g/dl low riskChol 201-239 mg/dl borderline riskChol 240 mg/dl and greater high risk Cholesterol in LDL Calc [Mas s/Vol]Ordered By: Marcela Cano on 06-22-2022 Cholesterol in LDL [Mass/Vol] 105 mg/dL 0-100 [facility] Comment on above: LDL ATP III CLASSIFI CATIONLDL less than 100 mg/dL OptimalLDL 100-129 mg/dL Near or above optimalLDL 130-159 mg/dL Borderline highLDL 160-189 mg/dL HighLDL greater than 189 mg/dL Very high Cholesterol in VLDL Calc [Ma ss/Vol]Ordered By: Marcela Cano on 06-22-2022 Cholesterol in VLDL [Mass/Vol] 32 mg/dL [facility] Globulin Calc (S) [Mass/Vol] Ordered By: Marcela Cano on 06-22-2022 Globulin (S) [Mass/Vol] 2.5 g/dL [facility] Glucose mean value [Mass/vol ume] in Blood Estimated from glycated hemoglobinOrdered By: Marcela Cano on 06-22-2022 Average glucose Estimated from glycated hemoglobin (Bld) [Mass/Vol] 194 mg/dL [facility] Hemoglobin A1c percentageOrd ered By: Marcela Cano on 06-22-2022 HbA1c (Bld) [Mass fraction] 8.4 % 4.3-5.6 [facility] Comment on above: Increased risk for d iabetes: 5.7 - 6.4diabetes: >6.4glycemic control for adults with diabetes: <7.0 Lactate [Moles/volume] in Se rum or PlasmaOrdered By: Marcela Cano on 06-22-2022 Lactate [Moles/Vol] 1.2 mmol/L 0.5-2.2 [facility] Natriuretic peptide B [Mass/ Vol]Ordered By: Marcela Cano on 06-22-2022 Natriuretic peptide B (Bld) [Mass/Vol] 507.0 pg/mL 5-100 [facility] No Panel InformationOrdered By: Toi Johnson on 06-22-2022 Bedside Glucose Comment Glu2: cleaned meter [facility] Protein [Mass/volume] in Ser um or PlasmaOrdered By: Marcela Cano on 06-22-2022 Protein [Mass/Vol] 5.9 g/dL 6.4-8.9 [facility] Serum or plasma albumin/glob ulin mass ratioOrdered By: Marcela Cano on 06-22-2022 Albumin/Globulin [Mass ratio] 1.4 {ratio} [facility] Serum or plasma high density lipoprotein (HDL) cholesterol measurementOrdered By: Marcela Cano on 06-22-2022 Cholesterol in HDL [Mass/Vol] 25 mg/dL 35-85 [facility] Comment on above: HDL CHOL ATP-III CLA SSIFICATION Cardiovascular RiskHDL > or equal to 60 mg/dL LOWHDL < 40 mg/dL HIGH Serum or plasma total choles terol/high density lipoprotein (HDL) cholesterol mass ratOrdered By: Marcela Cano on 06-22-2022 Cholesterol.total/Chol esterol in HDL [Mass ratio] 6.5 {ratio} <5.0 [facility] TROPONIN, HIGH SENSITIVITYon 06-22-2022 HSTROP 395.9 pg/mL Critically high 4.0-51.[address] [facility] Comment on above: Result Comment: CUT- OFF POINTS HAVE BEEN ESTABLISHED BASED ON THE FOURTH UNIVERSAL DEFINITIONS OF MYOCARDIAL INFARCTION. THE UPPER REFERENCE LIMIT (URL) OF TROPONIN, DEFINED THE 99TH PERCENTILE OF cTnI DISTRIBUTION IN A REFERENCE POPULATION, HAS BEEN CONFIRMED THE DECISION THRESHOLD FOR AR DIAGNOSIS. Performed By: #### U RTPCR #### [facility] [address] [place] [address] Dr. Shilpa Beard Triglyceride [Mass/volume] i n Serum or PlasmaOrdered By: Marcela Cano on 06-22-2022 Triglyceride [Mass/Vol] 160 mg/dL 0-149 [facility] Comment on above: TRIG ATP III CLASSIF ICATIONTRIG less than 150 mg/dL NormalTRIG 150-199 mg/dL Borderline highTRIG 200-500 mg/dL High TRIG greater than 500 mg/dL Very highStandard traceable to the Center for Disease Conrtrol and Prevention (CDC) test method. AMYLASEon 06-21-2022 Amylase [Catalytic activity/Vol] 41 U/L Normal 25-[address] [facility] Comment on above: Performed By: #### L IPA, ALLISON #### [facility] [address] [place] [address] Dr. Shilpa Beard CBC AUTO DIFFon 06-21-2022 BASO # 0.1 103/ul Normal 0.0-0.1 [facility] Comment on above: Performed By: #### C BC #### [facility] [address] [place] [address] Dr. Shilpa Beard Basophils/100 WBC (Bld) 0.4 % Normal 0.2-2.0 [facility] Comment on above: Performed By: #### C BC #### [facility] [address] [place] [address] Dr. Shilpa Beard EO # 0.0 103/ul Normal 0.0-0.7 [facility] Comment on above: Performed By: #### C BC #### [facility] [address] [place] [address] Dr. Shilpa Beard Eosinophils/100 WBC (Bld) 0.1 % Critically low 0.9-7.0 [facility] Comment on above: Performed By: #### C BC #### [facility] [address] [place] [address] Dr. Shilpa Beard Erythrocyte distribution width (RBC) [Ratio] 13.4 % Normal 11.0-15.0 [facility] Comment on above: Performed By: #### C BC #### [facility] [address] [place] [address] Dr. Shilpa Beard Hematocrit (Bld) [Volume fraction] 46.1 % Normal 36.0-48.0 [facility] Comment on above: Performed By: #### C BC #### [facility] [address] [place] [address] Dr. Shilpa Beard Hemoglobin (Bld) [Mass/Vol] 15.6 g/dL Normal 12.0-16.0 [facility] Comment on above: Performed By: #### C BC #### [facility] [address] [place] [address] Dr. Shilpa Beard IG # 0.07 10e3/ul Critically high 0.00-0.03 [facility] Comment on above: Performed By: #### C BC #### [facility] [address] [place] [address] Dr. Shilpa Beard IG % 0.4 % Normal 0.0-0.5 [facility] Comment on above: Performed By: #### C BC #### [facility] [address] [place] [address] Dr. Shilpa Beard LYMPH # 0.7 103/ul Critically low 1.2-3.8 [facility] Comment on above: Performed By: #### C BC #### [facility] [address] [place] [address] Dr. Shilpa Beard Lymphocytes/100 WBC (Bld) 4.4 % Critically low 20.5-60.0 [facility] Comment on above: Performed By: #### C BC #### [facility] [address] [place] [address] Dr. Shilpa Beard MANUAL DIFF REQ NO Normal [facility] Comment on above: Performed By: #### C BC #### [facility] [address] [place] [address] Dr. Shilpa Beard MCH (RBC) [Entitic mass] 30.8 pg Normal 26.7-34.0 [facility] Comment on above: Performed By: #### C BC #### [facility] [address] [place] [address] Dr. Shilpa Beard MCHC (RBC) [Mass/Vol] 33.8 g/dL Normal 29.9-35.2 [facility] Comment on above: Performed By: #### C BC #### [facility] [address] [place] [address] Dr. Shilpa Beard MCV (RBC) [Entitic vol] 90.9 fL Normal 81.0-99.0 [facility] Comment on above: Performed By: #### C BC #### [facility] [address] [place] [address] Dr. Shilpa Beard MONO # 0.9 103/ul Critically high 0.3-0.8 [facility] Comment on above: Performed By: #### C BC #### [facility] [address] [place] [address] Dr. Shilpa Beard Monocytes/100 WBC (Bld) 5.6 % Normal 1.7-12.0 [facility] Comment on above: Performed By: #### C BC #### [facility] [address] [address] [address] Shilpa Beard NEUT # 14.5 103/ul Critically high 1.4-6.5 [facility] Comment on above: Performed By: #### C BC #### [facility] [address] [address] [address] Shilpa Beard Neutrophils/100 WBC (Bld) 89.1 % Critically high 43.0-75.0 [facility] Comment on above: Performed By: #### C BC #### [facility] [address] [address] [address] Shilpa Beard Platelet mean volume (Bld) [Entitic vol] 11.6 fL Normal 9.5-13.5 [facility] Comment on above: Performed By: #### C BC #### [facility] [address] [place] [address] Dr. Shilpa Beard PLT 176 103/ul Normal 150-[address] [facility] Comment on above: Performed By: #### C BC #### [facility] [address] [address] [address] Shilpa Beard RBC 5.07 106/ul Normal 4.20-5.[address] [facility] Comment on above: Performed By: #### C BC #### [facility] [address] [place] [address] Dr. Shilpa Beard WBC 16.2 103/ul Critically high 4.0-11.0 [facility] Comment on above: Performed By: #### C BC #### [facility] [address] [place] [address] ABD/PELVIS WO CONon 06-21 CT ABD/PELVIS WO CON EXAMINATION: CT ABD /PELVIS WO CON, 06/21/2022 8:29 PM EDT HISTORY: [...] JENNIFER SWIFT Date: 2022-06-21 21:52 [address] [facility] CULTURE URINEon 06-21-2022 CULTURE URINE Culture Observations : NO GROWTH. Normal [facility] Comment on above: Performed By: #### L IPA, ALLISON #### [facility] [address] [address] [address] Shilpa Beard [facility]on SARS-CoV-2 (COVID-19) RNA COLIN+probe Ql (Unsp spec) Not detected Normal NOT DETECTED [facility] Comment on above: Result Comment: When diagnostic [...] for this test is supported by the [place] of Health and Human Service's declaration that [...] longer be used). Performed By: #### C VDTB #### [facility] [address] [place] [address] Dr. Shilpa Beard ER URINE PROFILEon 3 Bilirubin Ql (U) Negative Normal NEGATIVE [facility] Comment on above: Performed By: #### U RTPCR #### [facility] [address] [place] [address] Dr. Shilpa Beard Clarity (U) CLEAR Normal CLEAR [facility] Comment on above: Performed By: #### U RTPCR #### [facility] [address] [place] [address] Dr. Shilpa Beard Color (U) LT. YELLOW Normal YELLOW [facility] Comment on above: Performed By: #### U RTPCR #### [facility] [address] [place] [address] Dr. Shilpa Beard ERUAHD A micrscopic examina tion will be performed if indicated. Normal [facility] Comment on above: Performed By: #### U RTPCR #### [facility] [address] [place] [address] Dr. Shilpa Beard Glucose Ql (U) 250 mg/dl Abnormal NEGATIVE [facility] Comment on above: Performed By: #### U RTPCR #### [facility] [address] [place] [address] Dr. Shilpa Beard Hemoglobin Ql (U) TRACE-INTACT Abnormal NEGATIVE [facility] Comment on above: Performed By: #### U RTPCR #### [facility] [address] [place] [address] Dr. Shilpa Beard Ketones Ql (U) Negative Normal NEGATIVE [facility] Comment on above: Performed By: #### U RTPCR #### [facility] [address] [place] [address] Dr. Shilpa Beard LEUKOCYTES Negative Normal NEGATIVE [facility] Comment on above: Performed By: #### U RTPCR #### [facility] [address] [place] [address] Dr. Shilpa Beard Nitrite Ql (U) Negative Normal NEGATIVE [facility] Comment on above: Performed By: #### U RTPCR #### [facility] [address] [place] [address] Dr. Shilpa Beard pH (U) 5.0 [pH] Normal 5-9 [facility] Comment on above: Performed By: #### U RTPCR #### [facility] [address] [place] [address] Dr. Shilpa Beard Protein (U) [Mass/Vol] 100 mg/dL Abnormal NEGAT WILSON/ TRACE [facility] Comment on above: Performed By: #### U RTPCR #### [facility] [address] [place] [address] Dr. Shilpa Beard SPEC GRAVITY 1.025 Normal 1.005-<=1. 025 [facility] Comment on above: Performed By: #### U RTPCR #### [facility] [address] [place] [address] Dr. Shilpa Beard UR MICRO IND INDICATED Normal [facility] Comment on above: Performed By: #### U RTPCR #### [facility] [address] [place] [address] Dr. Shilpa Beard Urobilinogen Qn (U) 0.2 {Jacklyn'U}/dL Normal 0.2 - 1. 0 [facility] Comment on above: Performed By: #### U RTPCR #### [facility] [address] [place] [address] Dr. Shilpa Beard LIPASEon 06-21-2022 Lipase [Catalytic activity/Vol] 80.0 U/L Normal 73.0-393.0 [facility] Comment on above: Performed By: #### L IPA, ALLISON #### [facility] [address] [place] [address] Dr. Shilpa Beard Lipase [Catalytic activity/Vol] 82.0 U/L Normal 73.0-393.0 [facility] Comment on above: Performed By: #### U RTPCR #### [facility] [address] [place] [address] Dr. Shilpa Beard PROF 14(COMP METB)on 023 Albumin [Mass/Vol] 3.3 g/dL Critically low 3.4-5.0 [facility] Comment on above: Performed By: #### U RTPCR #### [facility] [address] [place] [address] Dr. Shilpa Beard Albumin/Globulin [Mass ratio] 0.8 {ratio} Normal [facility] Comment on above: Performed By: #### U RTPCR #### [facility] [address] [place] [address] Dr. Shilpa Beard ALP [Catalytic activity/Vol] 114 U/L Normal 46-116 [facility] Comment on above: Performed By: #### U RTPCR #### [facility] [address] [place] [address] Dr. Shilpa Beard ALT [Catalytic activity/Vol] 18 U/L Normal 14-59 [facility] Comment on above: Performed By: #### U RTPCR #### [facility] [address] [place] [address] Dr. Shilpa Beard Anion gap [Moles/Vol] 18.4 mmol/L Normal [facility] Comment on above: Performed By: #### U RTPCR #### [facility] [address] [place] [address] Dr. Shilpa eBard AST [Catalytic activity/Vol] 22 U/L Normal 15-37 [facility] Comment on above: Performed By: #### U RTPCR #### [facility] [address] [place] [address] Dr. Shilpa Beard Bilirubin [Mass/Vol] 0.6 mg/dL Normal 0.2-1.0 [facility] Comment on above: Performed By: #### U RTPCR #### [facility] [address] [place] [address] Dr. Shilpa Beard Calcium [Mass/Vol] 8.9 mg/dL Normal 8.5-10.1 [facility] Comment on above: Performed By: #### U RTPCR #### [facility] [address] [place] [address] Dr. Shilpa Beard Chloride [Moles/Vol] 100 mmol/L Normal 98-107 [facility] Comment on above: Performed By: #### U RTPCR #### [facility] [address] [place] [address] Dr. Shilpa Beard CO2 [Moles/Vol] 22.2 mmol/L Normal 21.0-32.0 [facility] Comment on above: Performed By: #### U RTPCR #### [facility] [address] [place] [address] Dr. Shilpa Beard Creatinine [Mass/Vol] 1.80 mg/dL Critically high 0.55-1.02 [facility] Comment on above: Performed By: #### U RTPCR #### [facility] [address] [place] [address] Dr. Shilpa Beard EGFR-AF SURINAMESE 32 mL/min/1.73m2 Critically low >=60 [facility] Comment on above: Performed By: #### U RTPCR #### [facility] [address] [place] [address] Dr. Shilpa Beard EGFR-NON AF SURINAMESE 27 mL/min/1.73m2 Critically low >=60 [facility] Comment on above: Performed By: #### U RTPCR #### [facility] [address] [place] [address] Dr. Shilpa Beard Globulin (S) [Mass/Vol] 4.0 g/dL Normal [facility] Comment on above: Performed By: #### U RTPCR #### [facility] [address] [place] [address] Dr. Shilpa Beard Glucose [Mass/Vol] 277 mg/dL Critically high 74-106 [facility] Comment on above: Performed By: #### U RTPCR #### [facility] [address] [place] [address] Dr. Shilpa Beard Potassium [Moles/Vol] 4.6 mmol/L Normal 3.5-5.1 [facility] Comment on above: Performed By: #### U RTPCR #### [facility] [address] [place] [address] Dr. Shilpa Beard Protein [Mass/Vol] 7.3 g/dL Normal 6.4-8.[address] [facility] Comment on above: Performed By: #### U RTPCR #### [facility] [address] [place] [address] Dr. Shilpa Beard Sodium [Moles/Vol] 136 mmol/L Normal 136-[address] [facility] Comment on above: Performed By: #### U RTPCR #### [facility] [address] [place] [address] Dr. Shilpa Beard Urea nitrogen [Mass/Vol] 35.0 mg/dL Critically high 7.0-18.0 [facility] Comment on above: Performed By: #### U RTPCR #### [facility] [address] [place] [address] Dr. Shilpa Beard Urea nitrogen/Creatinine [Mass ratio] 19.4 mg/mg Normal [facility] Comment on above: Performed By: #### U RTPCR #### [facility] [address] [place] [address] Dr. Shilpa Beard TROPONIN, HIGH SENSITIVITYon 06-21-2022 HSTROP 190.4 pg/mL Critically high 4.0-51.[address] [facility] Comment on above: Result Comment: CUT- OFF POINTS HAVE BEEN ESTABLISHED BASED ON THE FOURTH UNIVERSAL DEFINITIONS OF MYOCARDIAL INFARCTION. THE UPPER REFERENCE LIMIT (URL) OF TROPONIN, DEFINED THE 99TH PERCENTILE OF cTnI DISTRIBUTION IN A REFERENCE POPULATION, HAS BEEN CONFIRMED THE DECISION THRESHOLD FOR AR DIAGNOSIS. Performed By: #### H STROPN #### [facility] [address] [place] [address] Dr. Shilpa Beard HSTROP 103.3 pg/mL Critically high 4.0-51.[address] [facility] Comment on above: Result Comment: CUT- OFF POINTS HAVE BEEN ESTABLISHED BASED ON THE FOURTH UNIVERSAL DEFINITIONS OF MYOCARDIAL INFARCTION. THE UPPER REFERENCE LIMIT (URL) OF TROPONIN, DEFINED THE 99TH PERCENTILE OF cTnI DISTRIBUTION IN A REFERENCE POPULATION, HAS BEEN CONFIRMED THE DECISION THRESHOLD FOR AR DIAGNOSIS. Performed By: #### U RTPCR #### [facility] [address] [place] [address] Dr. Shilpa Beard URINE MICROSCOPIC ONLYon 04- 02-2023 AMORPHOUS CRYSTALS FEW Normal [facility] Comment on above: Performed By: #### U RTPCR #### [facility] [address] [address] [address] Shilpa Beard BACTERIA SMALL Abnormal NONE SEEN The [facility] Comment on above: Performed By: #### U RTPCR #### [facility] [address] [place] [address] Dr. Shilpa Beard Bacteria identified Cx Nom (U) INDICATED Normal [facility] Comment on above: Performed By: #### U RTPCR #### [facility] [address] [place] [address] Dr. Shilpa Beard CAST SEEN Abnormal NONE SEEN [facility] Comment on above: Performed By: #### U RTPCR #### [facility] [address] [place] [address] Dr. Shilpa Beard Crystals LM Nom (Urine sed) SEEN Abnormal NONE SEEN [facility] Comment on above: Performed By: #### U RTPCR #### [facility] [address] [place] [address] Dr. Shilpa Beard Epithelial cells LM Ql (Urine sed) FEW Abnormal NONE SEEN /RARE The [facility] Comment on above: Performed By: #### U RTPCR #### [facility] [address] [place] [address] Dr. Shilpa Beard HYALINE CAST FEW Normal [facility] Comment on above: Performed By: #### U RTPCR #### [facility] [address] [place] [address] Dr. Shilpa Beard MUCOUS NONE SEEN Normal NONE SEEN [facility] Comment on above: Performed By: #### U RTPCR #### [facility] [address] [place] [address] Dr. Shilpa Beard RBC 2-5 Abnormal 0-[address] [facility] Comment on above: Performed By: #### U RTPCR #### [facility] [address] [place] [address] Dr. Shilpa Beard WBC NONE SEEN Normal NONE SEEN The [facility] Comment on above: Performed By: #### U RTPCR #### [facility] [address] [place] [address] Dr. Shilpa Beard XR CHEST 1 Von [...] LAURENCE RAJPUT Date: 2022-06-21 17:15 Normal [address] [facility] GLYCOHEMOGLOBIN A1Con 2021 ADA RECOMMENDATION SEE BELOW Normal [facility] Comment on above: Result Comment: ADA RECOMMENDED LIMIT 4.0 - 6.0 ADA THERAPEUTIC TARGET < 7.0 ACTION SUGGESTED > 7.0 Performed By: #### A 1C #### [facility] [address] [place] [address] Dr. Shilpa Beard Glucose [Mass/Vol] 174 mg/dL Normal [facility] Comment on above: Performed By: #### A 1C #### [facility] [address] [place] [address] Dr. Shilpa Beard HbA1c (Bld) [Mass fraction] 7.7 % Critically high 4.5-6.2 [facility] Comment on above: Performed By: #### A 1C #### [facility] [address] [place] [address] Dr. Shilpa Beard PROF CHEM 8 (BAS METB)on Anion gap [Moles/Vol] 13.6 mmol/L Normal [facility] Comment on above: Performed By: #### B MP #### [facility] [address] [place] [address] Dr. Shilpa Beard Calcium [Mass/Vol] 9.6 mg/dL Normal 8.5-10.1 [facility] Comment on above: Performed By: #### B MP #### [facility] [address] [address] [address] Shilpa Beard Chloride [Moles/Vol] 103 mmol/L Normal 98-107 [facility] Comment on above: Performed By: #### B MP #### [facility] [address] [address] [address] Shilpa Beard CO2 [Moles/Vol] 26.1 mmol/L Normal 21.0-32.0 [facility] Comment on above: Performed By: #### B MP #### [facility] [address] [address] [address] Shilpa Beard Creatinine [Mass/Vol] 1.30 mg/dL Critically high 0.55-1.02 [facility] Comment on above: Performed By: #### B MP #### [facility] [address] [address] [address] Shilpa Beard EGFR-AF SURINAMESE 47 mL/min/1.73m2 Critically low >=[address] [facility] Comment on above: Performed By: #### B MP #### [facility] [address] [address] [address] Shilpa Beard EGFR-NON AF SURINAMESE 39 mL/min/1.73m2 Critically low >=60 [facility] Comment on above: Performed By: #### B MP #### [facility] [address] [address] [address] Shilpa Beard Glucose [Mass/Vol] 219 mg/dL Critically high 74-106 [facility] Comment on above: Performed By: #### B MP #### [facility] [address] [address] [address] Shilpa Beard Potassium [Moles/Vol] 4.7 mmol/L Normal 3.5-5.[address] [facility] Comment on above: Performed By: #### B MP #### [facility] [address] [address] [address] Shilpa Beard Sodium [Moles/Vol] 138 mmol/L Normal 136-[address] [facility] Comment on above: Performed By: #### B MP #### [facility] [address] [address] [address] Shilpa Beard Urea nitrogen [Mass/Vol] 37.0 mg/dL Critically high 7.0-18.0 [facility] Comment on above: Performed By: #### B MP #### [facility] [address] [place] [address] Dr. Shilpa Beard Urea nitrogen/Creatinine [Mass ratio] 28.5 mg/mg Normal [facility] Comment on above: Performed By: #### B MP #### [facility] [address] [place] [address] Dr. Shilpa Beard PROF CHEM 8 (BAS METB)on Anion gap [Moles/Vol] 15.2 mmol/L Normal [facility] Comment on above: Performed By: #### L IPA, ALLISON #### [facility] [address] [place] [address] Dr. Shilpa Beard Calcium [Mass/Vol] 8.7 mg/dL Normal 8.5-10.1 [facility] Comment on above: Performed By: #### L IPA, ALLISON #### [facility] [address] [place] [address] Dr. Shilpa Beard Chloride [Moles/Vol] 102 mmol/L Normal 98-107 [facility] Comment on above: Performed By: #### L IPA, ALLISON #### [facility] [address] [place] [address] Dr. Shilpa Beard CO2 [Moles/Vol] 22.8 mmol/L Normal 21.0-32.0 [facility] Comment on above: Performed By: #### L IPA, ALLISON #### [facility] [address] [place] [address] Dr. Shilpa Beard Creatinine [Mass/Vol] 1.32 mg/dL Critically high 0.55-1.02 [facility] Comment on above: Performed By: #### L IPA, ALLISON #### [facility] [address] [place] [address] Dr. Shilpa Beard EGFR-AF SURINAMESE 46 mL/min/1.73m2 Critically low >=[address] [facility] Comment on above: Performed By: #### L IPA, ALLISON #### [facility] [address] [address] [address] Shilpa Beard EGFR-NON AF SURINAMESE 38 mL/min/1.73m2 Critically low >=60 [facility] Comment on above: Performed By: #### L IPA, ALLISON #### [facility] [address] [address] [address] Shilpa Beard Glucose [Mass/Vol] 168 mg/dL Critically high 74-106 T [facility] Comment on above: Performed By: #### L IPA, ALLISON #### [facility] [address] [address] [address] Shilpa Beard Potassium [Moles/Vol] 5.0 mmol/L Normal 3.5-5.1 [facility] Comment on above: Performed By: #### L IPA, ALLISON #### [facility] [address] [place] [address] Dr. Shilpa Beard Sodium [Moles/Vol] 135 mmol/L Critically low 136-145 [facility] Comment on above: Performed By: #### L IPA, ALLISON #### [facility] [address] [address] [address] Shilpa Beard Urea nitrogen [Mass/Vol] 38.0 mg/dL Critically high 7.0-18.0 [facility] Comment on above: Performed By: #### L IPA, ALLISON #### [facility] [address] [address] [address] Shilpa Beard Urea nitrogen/Creatinine [Mass ratio] 28.8 mg/mg Normal [facility] Comment on above: Performed By: #### L IPA, ALLISON #### [facility] [address] [address] [address] Shilpa Beard CBC AUTO DIFFon 06-30-2021 BASO # 0.1 103/ul Normal 0.0-0.1 [facility] Comment on above: Performed By: #### L IPA, ALLISON #### [facility] [address] [address] [address] Shilpa Beard Basophils/100 WBC (Bld) 1.0 % Normal 0.2-2.0 [facility] Comment on above: Performed By: #### L IPA, ALLISON #### [facility] [address] [place] [address] Dr. Shilpa Beard EO # 0.2 103/ul Normal 0.0-0.7 [facility] Comment on above: Performed By: #### L IPA, ALLISON #### [facility] [address] [place] [address] Dr. Shilpa Beard Eosinophils/100 WBC (Bld) 1.8 % Normal 0.9-7.0 [facility] Comment on above: Performed By: #### L IPA, ALLISON #### [facility] [address] [place] [address] Dr. Shilpa Beard Erythrocyte distribution width (RBC) [Ratio] 13.3 % Normal 11.0-15.0 [facility] Comment on above: Performed By: #### L IPA, ALLISON #### [facility] [address] [place] [address] Dr. Shilpa Beard Hematocrit (Bld) [Volume fraction] 46.5 % Normal 36.0-48.0 [facility] Comment on above: Performed By: #### L IPA, ALLISON #### [facility] [address] [place] [address] Dr. Shilpa Beard Hemoglobin (Bld) [Mass/Vol] 15.1 g/dL Normal 12.0-16.0 [facility] Comment on above: Performed By: #### L IPA, ALLISON #### [facility] [address] [place] [address] Dr. Shilpa Beard IG # 0.06 10e3/ul Critically high 0.00-0.03 [facility] Comment on above: Performed By: #### L IPA, ALLISON #### [facility] [address] [place] [address] Dr. Shilpa Beard IG % 0.7 % Critically high 0.0-0.5 [facility] Comment on above: Performed By: #### L IPA, ALLISON #### [facility] [address] [place] [address] Dr. Shilpa Beard LYMPH # 2.9 103/ul Normal 1.2-3.8 [facility] Comment on above: Performed By: #### L IPA, ALLISON #### [facility] [address] [place] [address] Dr. Shilpa Beard Lymphocytes/100 WBC (Bld) 35.4 % Normal 20.5-60.0 [facility] Comment on above: Performed By: #### L IPA, ALLISON #### [facility] [address] [place] [address] Dr. Shilpa Beard MANUAL DIFF REQ NO Normal [facility] Comment on above: Performed By: #### L IPA, ALLISON #### [facility] [address] [place] [address] Dr. Shilpa Beard MCH (RBC) [Entitic mass] 29.8 pg Normal 26.7-34.0 [facility] Comment on above: Performed By: #### L IPA, ALLISON #### [facility] [address] [place] [address] Dr. Shilpa Beard MCHC (RBC) [Mass/Vol] 32.5 g/dL Normal 29.9-35.[address] [facility] Comment on above: Performed By: #### L IPA, ALLISON #### [facility] [address] [place] [address] Dr. Shilpa Beard MCV (RBC) [Entitic vol] 91.9 fL Normal 81.0-99.0 [facility] Comment on above: Performed By: #### L IPA, ALLISON #### [facility] [address] [place] [address] Dr. Shilpa Beard MONO # 0.8 103/ul Normal 0.3-0.8 [facility] Comment on above: Performed By: #### L IPA, ALLISON #### [facility] [address] [place] [address] Dr. Shilpa Beard Monocytes/100 WBC (Bld) 9.9 % Normal 1.7-12.0 [facility] Comment on above: Performed By: #### L IPA, ALLISON #### [facility] [address] [place] [address] Dr. Shilpa Beard NEUT # 4.2 103/ul Normal 1.4-6.5 [facility] Comment on above: Performed By: #### L IPA, ALLISON #### [facility] [address] [place] [address] Dr. Shilpa Beard Neutrophils/100 WBC (Bld) 51.2 % Normal 43.0-75.0 [facility] Comment on above: Performed By: #### L IPA, ALLISON #### [facility] [address] [place] [address] Dr. Shilpa Beard Platelet mean volume (Bld) [Entitic vol] 11.1 fL Normal 9.5-13.5 [facility] Comment on above: Performed By: #### L IPA, ALLISON #### [facility] [address] [place] [address] Dr. Shilpa Beard PLT 263 103/ul Normal 150-[address] [facility] Comment on above: Performed By: #### L IPA, ALLISON #### [facility] [address] [place] [address] Dr. Shilpa Beard RBC 5.06 106/ul Normal 4.20-5.[address] [facility] Comment on above: Performed By: #### L IPA, ALLISON #### [facility] [address] [place] [address] Dr. Shilpa Beard WBC 8.1 103/ul Normal 4.0-11.0 [facility] Comment on above: Performed By: #### L IPA, ALLISON #### [facility] [address] [place] [address] Dr. Shilpa Beard GLYCOHEMOGLOBIN A1Con 2021 ADA RECOMMENDATION ADA THERAPEUTIC TARG ET 6.0 - 7.0 ACTION SUGGESTED > 7.0 Normal [facility] Comment on above: Performed By: #### U RTPCR #### [facility] [address] [place] [address] Dr. Shilpa Beard Glucose [Mass/Vol] 186 mg/dL Normal [facility] Comment on above: Performed By: #### U RTPCR #### [facility] [address] [place] [address] Dr. Shilpa Beard HbA1c (Bld) [Mass fraction] 8.1 % Critically high <=6.0 [facility] Comment on above: Performed By: #### U RTPCR #### [facility] [address] [place] [address] Dr. Shilpa Beard LIPID PROFILEon 06-30-2021 CHOL-HDL RATIO NORM SEE BELOW Normal [facility] Comment on above: Result Comment: 3.3 - 4.4 LOW RISK 4.4 - 7.1 AVERAGE RISK 7.1 - 11.0 MODERATE RISK >11.0 HIGH RISK Performed By: #### L IPID, URIC, TSH, CMP #### [facility] [address] [place] [address] Dr. Shilpa Beadr Cholesterol [Mass/Vol] 223 mg/dL Critically high <=200 [facility] Comment on above: Performed By: #### L IPID, URIC, TSH, CMP #### [facility] [address] [place] [address] Dr. Shilpa Beard Cholesterol in HDL [Mass/Vol] 31 mg/dL Critically low 40-60 [facility] Comment on above: Performed By: #### L IPID, URIC, TSH, CMP #### [facility] [address] [place] [address] Dr. Shilpa Beard Cholesterol in LDL [Mass/Vol] 143.6 mg/dL Normal [facility] Comment on above: Performed By: #### L IPID, URIC, TSH, CMP #### [facility] [address] [place] [address] Dr. Shilpa Beard Cholesterol.total/Chol esterol in HDL [Mass ratio] 7.2 {ratio} Normal [facility] Comment on above: Performed By: #### L IPID, URIC, TSH, CMP #### [facility] [address] [place] [address] Dr. Shlipa Beard HDL NORMAL > or = 60 mg/dl - LO W CARDIOVASCULAR RISK <40 mg/dl - HIGH CARDIOVASCULAR RISK Normal [facility] Comment on above: Performed By: #### L IPID, URIC, TSH, CMP #### [facility] [address] [place] [address] Dr. Shilpa Beard LDL CALC NORMAL SEE BELOW Normal [facility] Comment on above: Result Comment: <100 mg/dl OPTIMAL 100 - 129 mg/dl NEAR OR ABOVE OPTIMAL 130 - 159 mg/dl BORDERLINE HIGH 160 - 189 mg/dl HIGH >190 mg/dl VERY HIGH Performed By: #### L IPID, URIC, TSH, CMP #### [facility] [address] [address] [address] Shilpa Beard Triglyceride [Mass/Vol] 242 mg/dL Critically high <=150 [facility] Comment on above: Performed By: #### L IPID, URIC, TSH, CMP #### [facility] [address] [address] [address] Shilpa Beard VLDL CALC 48.4 mg/dL Normal [facility] Comment on above: Performed By: #### L IPID, URIC, TSH, CMP #### [facility] [address] [address] [address] Shilpa Beard PROF 14(COMP METB)on 022 Albumin [Mass/Vol] 3.2 g/dL Critically low 3.4-5.0 [facility] Comment on above: Performed By: #### U RTPCR #### [facility] [address] [address] [address] Shilpa Beard Albumin/Globulin [Mass ratio] 0.7 {ratio} Normal [facility] Comment on above: Performed By: #### U RTPCR #### [facility] [address] [address] [address] Shilpa Beard ALP [Catalytic activity/Vol] 99 U/L Normal 46-116 [facility] Comment on above: Performed By: #### U RTPCR #### [facility] [address] [address] [address] Shilpa Beard ALT [Catalytic activity/Vol] 42 U/L Normal 14-59 [facility] Comment on above: Performed By: #### U RTPCR #### [facility] [address] [address] [address] Shilpa Beard Anion gap [Moles/Vol] 13.1 mmol/L Normal Th e [facility] Comment on above: Performed By: #### U RTPCR #### [facility] [address] [address] [address] Shilpa Beard AST [Catalytic activity/Vol] 53 U/L Critically high 15-37 [facility] Comment on above: Performed By: #### U RTPCR #### [facility] [address] [address] [address] Shilpa Beard Bilirubin [Mass/Vol] 0.5 mg/dL Normal 0.2-1.3 [facility] Comment on above: Performed By: #### U RTPCR #### [facility] [address] [address] [address] Shilpa Beard Calcium [Mass/Vol] 8.8 mg/dL Normal 8.5-10.1 [facility] Comment on above: Performed By: #### U RTPCR #### [facility] [address] [address] [address] Shilpa Beard Chloride [Moles/Vol] 100 mmol/L Normal 98-107 [facility] Comment on above: Performed By: #### U RTPCR #### [facility] [address] [address] [address] Shilpa Beard CO2 [Moles/Vol] 26.7 mmol/L Normal 22.0-30.0 [facility] Comment on above: Performed By: #### U RTPCR #### [facility] [address] [address] [address] Shilpa Beard Creatinine [Mass/Vol] 1.24 mg/dL Critically high 0.52-1.04 [facility] Comment on above: Performed By: #### U RTPCR #### [facility] [address] [address] [address] Shilpa Beard EGFR-AF SURINAMESE 50 mL/min/1.73m2 Critically low >=60 [facility] Comment on above: Performed By: #### U RTPCR #### [facility] [address] [address] [address] Shilpa Beard EGFR-NON AF SURINAMESE 41 mL/min/1.73m2 Critically low >=60 [facility] Comment on above: Performed By: #### U RTPCR #### [facility] [address] [place] [address] Dr. Shilpa Beard Globulin (S) [Mass/Vol] 4.5 g/dL Normal [facility] Comment on above: Performed By: #### U RTPCR #### [facility] [address] [address] [address] Shilpa Beard Glucose [Mass/Vol] 193 mg/dL Critically high 74-106 T [facility] Comment on above: Performed By: #### U RTPCR #### [facility] [address] [place] [address] Dr. Shilpa Beard Potassium [Moles/Vol] 4.8 mmol/L Normal 3.4-5.0 [facility] Comment on above: Performed By: #### U RTPCR #### [facility] [address] [place] [address] Dr. Shilpa Beard Protein [Mass/Vol] 7.7 g/dL Normal 6.1-8.2 [facility] Comment on above: Performed By: #### U RTPCR #### [facility] [address] [place] [address] Dr. Shilpa Beard Sodium [Moles/Vol] 135 mmol/L Critically low 137-145 [facility] Comment on above: Performed By: #### U RTPCR #### [facility] [address] [place] [address] Dr. Shilpa Beard Urea nitrogen [Mass/Vol] 30.0 mg/dL Critically high 7.0-18.0 [facility] Comment on above: Performed By: #### U RTPCR #### [facility] [address] [place] [address] Dr. Shilpa Beard Urea nitrogen/Creatinine [Mass ratio] 24.2 mg/mg Normal [facility] Comment on above: Performed By: #### U RTPCR #### [facility] [address] [place] [address] Dr. Shilpa Beard TSHon 06-30-2021 TSH 2.982 uIU/mL Normal 0.470-4.68 0 [facility] Comment on above: Performed By: #### U RTPCR #### [facility] [address] [place] [address] Dr. Shilpa Beard TSH RANGE SEE BELOW Normal [facility] Comment on above: Result Comment: <0.3 4 UIU/ml HYPERTHYROID 0.34-5.60 UIU/ml EUTHYROID >5.60 UIU/ml HYPOTHYROID Performed By: #### U RTPCR #### [facility] [address] [place] [address] Dr. Shilpa Beard URIC ACID SERUMon 06-30-2021 Urate [Mass/Vol] 7.9 mg/dL Critically high 2.5-6.2 [facility] Comment on above: Performed By: #### L IPID, URIC, TSH, CMP #### [facility] [address] [place] [address] Dr. Shilpa Beard URINE T PROTEIN CREAT RATIOo n 06-30-2021 Protein (U) [Mass/Vol] 50.5 mg/dL Critically high <=12.0 [facility] Comment on above: Performed By: #### U RTPCR #### [facility] [address] [place] [address] Dr. Shilpa Beard UR PROT CREAT RAT 0.22 Normal [facility] Comment on above: Performed By: #### U RTPCR #### [facility] [address] [place] [address] Dr. Shilpa Beard URINE CREAT 230.96 mg/dL Normal 20.00-300. 00 [facility] Comment on above: Performed By: #### U RTPCR #### [facility] [address] [place] [address] Dr. Shilpa Vazquez [facility] ([facility] OCC3[facility] -- MOHAN ESPINOZA ([id number]) 1935 F Date Time Provider Department 04/15/20 [...] Fully Assessed Order(s):SARS-COVID VACCINE 1ST DOSE APPT [[id number]] Order #: [id number] FUTURE Prescriptions as of 04/15/2020 Sig: CLOPIDOGREL [...] (HCC) [C91.41]11/04/2015 Letter Text Encounter Status:Closed by Is That Odd, Fair ObserverUSER on 04/18/20 [facility] PROGRESSon 09-18-2019 PROGRESS HNO ID: [id number] Author: Saeid Oneil Service: ? Author Type: Physician Type: Progress Notes Filed: 09/18/2019 4:23 PM Note Text: PATIENT NAME: Mohan Espinoza CLINIC NO.: [id number] ATTENDING PHYSICIAN: Saeid Oneil MD DATE OF [...] and fludarabine in the early 1999. HPI: Mhoan Espinoza is a 84 year old year [...] - Gout - Heart attack (HCC) 04/06/2018 [facility] - Hematuria - History of DVT [...] 09/08/2018 2.53 1.00 - 4.00 k/uL Final Cobb% Date Value Ref Range Status 09/08/2018 13.5 % Final Abs Cobb Date Value Ref Range Status 09/08/2018 0.78 [...] do not hesitate to contact me at [phone]. Saeid Oneil MD Hematology/Medical Oncology [facility] CC: Irlanda Baker MD Normal [facility] BASIC METABOLIC PANELon 03-23 Calcium [Mass/Vol] 9.1 mg/dL Normal 8.6-10.3 [facility] Comment on above: Order Comment: No: D o not add to previous draw Performed By: #### 0 0071, 82283, 53793, 71207, 91669, 86255 #### [facility] [address] [place] [address], [facility] Chloride [Moles/Vol] 113 mmol/L High 98-107 [facility] Comment on above: Order Comment: No: D o not add to previous draw Performed By: #### 0 0071, 21017, 83195, 41751, 81626, 41677 #### [facility] [address] [place] [address], [place] CO2 [Moles/Vol] 26 mmol/L Normal 21-31 [facility] Comment on above: Order Comment: No: D o not add to previous draw Performed By: #### 0 0071, 46740, 84206, 52761, 47758, 28363 #### [facility] [address] [place] [address], [place] Creatinine [Mass/Vol] 0.95 mg/dL Normal 0.60-1.20 [facility] Comment on above: Order Comment: No: D o not add to previous draw Performed By: #### 0 0071, 03406, 93363, 22584, 30302, 06008 #### [facility] [address] [place] [address], [place] GFR/1.73 sq M predicted among blacks MDRD (S/P/Bld) [Vol rate/Area] mL/min/{1.73_m2} Normal >60 [facility] Comment on above: Order Comment: No: D o not add to previous draw Result Comment: Calc ulation may not be valid for patients over 70 years Performed By: #### 0 0071, 72332, 14169, 49552, 17766, 96730 #### [facility] [address] [place] [address], [place] GFR/1.73 sq M predicted among non-blacks MDRD (S/P/Bld) [Vol rate/Area] 56 ml/min/1.73sq m Abnormal >60 [facility] Comment on above: Order Comment: No: D o not add to previous draw Result Comment: Calc ulation may not be valid for patients over 70 years Performed By: #### 0 0071, 68602, 62390, 96268, 71047, 19185 #### [facility] [address] [place] [address], [place] Glucose [Mass/Vol] 169 mg/dL High 70-100 [facility] Comment on above: Order Comment: No: D o not add to previous draw Performed By: #### 0 0071, 93614, 12710, 29397, 73085, 25114 #### [facility] [address] Potassium [Moles/Vol] 4.5 mmol/L Normal 3.5-5.1 [facility] Comment on above: Order Comment: No: D o not add to previous draw Performed By: #### 0 0071, 22443, 12758, 64476, 43058, 04005 #### [facility] [address] Sodium [Moles/Vol] 147 mmol/L High 136-145 [facility] Comment on above: Order Comment: No: D o not add to previous draw Performed By: #### 0 0071, 73393, 44060, 19183, 37241, 66143 #### [facility] [address] Urea nitrogen [Mass/Vol] 18 mg/dL Normal 7-25 [facility] Comment on above: Order Comment: No: D o not add to previous draw Performed By: #### 0 0071, 69162, 61768, 85060, 12345, 83169 #### [facility] [address] CBC W/DIFFon 04-10-2018 ABS BASOPHILS 0.1 10*3/uL Normal 0.0-0.2 [facility] Comment on above: Order Comment: No: D o not add to previous draw Performed By: #### 0 0071, 89044, 00946, 66489, 62315, 76396 #### [facility] [address] ABS IMM GRANS 0.1 10*3/uL Normal 0.0-0.2 [facility] Comment on above: Order Comment: No: D o not add to previous draw Performed By: #### 0 0071, 07099, 29743, 73403, 63769, 62686 #### [facility] [address] [place] [address], [facility] ABS NEUTROPHILS 2.2 10*3/uL Normal 1.6-7.6 [facility] Comment on above: Order Comment: No: D o not add to previous draw Performed By: #### 0 0071, 73476, 89567, 40033, 15129, 48642 #### [facility] [address] [facility] [place] [address], [facility] Basophils/100 WBC (Bld) 1.0 % Normal 0.0-1.0 [facility] Comment on above: Order Comment: No: D o not add to previous draw Performed By: #### 0 0071, 39769, 37219, 44101, 99885, 64030 #### [facility] [address] [place] [address], [facility] Eosinophils (Bld) [#/Vol] 0.0 10*3/uL Normal 0.0-0.5 [facility] Comment on above: Order Comment: No: D o not add to previous draw Performed By: #### 0 0071, 89210, 71526, 30417, 20599, 64013 #### [facility] [address] [facility] [place] [address], [facility] Eosinophils/100 WBC (Bld) 0.0 % Normal 0.0-6.0 [facility] Comment on above: Order Comment: No: D o not add to previous draw Performed By: #### 0 0071, 58229, 24067, 67587, 59829, 75068 #### [facility] [address] [place] [address], [facility] Erythrocyte distribution width (RBC) [Ratio] 12.9 % Normal 11.5-15.0 [facility] Comment on above: Order Comment: No: D o not add to previous draw Performed By: #### 0 0071, 69357, 90193, 63450, 20933, 86066 #### [facility] [address] [place] [address], [facility] Hematocrit (Bld) [Volume fraction] 35.3 % Low 36.0-45.0 [facility] Comment on above: Order Comment: No: D o not add to previous draw Performed By: #### 0 0071, 47775, 24098, 04054, 72161, 13506 #### [facility] [address] [place] [address], [facility] Hemoglobin (Bld) [Mass/Vol] 11.7 g/dL Low 12.0-15.0 [facility] Comment on above: Order Comment: No: D o not add to previous draw Performed By: #### 0 0071, 75008, 28144, 82288, 95027, 88077 #### [facility] [address] [facility] IMMATURE GRANS 1.0 % Normal 0.0-1.0 [facility] Comment on above: Order Comment: No: D o not add to previous draw Performed By: #### 0 0071, 20538, 47004, 06604, 04577, 01051 #### [facility] [address] [facility] [place] [address], [facility] Lymphocytes (Bld) [#/Vol] 1.9 10*3/uL Normal 1.2-4.0 [facility] Comment on above: Order Comment: No: D o not add to previous draw Performed By: #### 0 0071, 79483, 43632, 79505, 77613, 04514 #### [facility] [address] [facility] [place] [address], [facility] Lymphocytes/100 WBC (Bld) 39.0 % Normal 20.0-45.0 [facility] Comment on above: Order Comment: No: D o not add to previous draw Performed By: #### 0 0071, 85827, 37737, 45012, 59297, 80838 #### [facility] [address] [facility] MCH (RBC) [Entitic mass] 29.9 pg Normal 27.0-33.0 [facility] Comment on above: Order Comment: No: D o not add to previous draw Performed By: #### 0 0071, 62366, 51226, 72893, 03146, 55489 #### [facility] [address] [facility] [place] [place] [address], [facility] MCHC (RBC) [Mass/Vol] 33.1 g/dL Normal 32.0-35.0 [facility] Comment on above: Order Comment: No: D o not add to previous draw Performed By: #### 0 0071, 21922, 28501, 84575, 59247, 65248 #### [facility] [address] [facility] MCV (RBC) [Entitic vol] 90.3 fL Normal 82.0-98.0 [facility] Comment on above: Order Comment: No: D o not add to previous draw Performed By: #### 0 0071, 34972, 66398, 42521, 37243, 59453 #### [facility] [address] [place] [address], [facility] Monocytes (Bld) [#/Vol] 0.7 10*3/uL Normal 0.1-1.0 [facility] Comment on above: Order Comment: No: D o not add to previous draw Performed By: #### 0 0071, 53857, 23999, 04930, 50690, 28759 #### [facility] [address] MONOS 14.8 % High 5.0-12.0 [facility] Comment on above: Order Comment: No: D o not add to previous draw Performed By: #### 0 0071, 74403, 52736, 09356, 66761, 54816 #### [facility] [address] [facility] [place] [address], [facility] Neutrophils/100 WBC (Bld) 44.2 % Normal 40.0-72.0 [facility] Comment on above: Order Comment: No: D o not add to previous draw Performed By: #### 0 0071, 52032, 09213, 50488, 10429, 56321 #### [facility] [address] [place] [address], [facility] Nucleated RBC/100 WBC (Bld) [Ratio] 0 % Normal 0-0 [facility] Comment on above: Order Comment: No: D o not add to previous draw Performed By: #### 0 0071, 67598, 26734, 14131, 83275, 64018 #### [facility] [address] [place] [address], [facility] PLAT CNT 178 10*3/uL Normal 150-400 [facility] Comment on above: Order Comment: No: D o not add to previous draw Performed By: #### 0 0071, 45433, 29352, 41582, 75286, 66620 #### [facility] [address] [place] [address], [facility] RBC (Bld) [#/Vol] 3.91 10*6/uL Normal 3.80-5.00 [facility] Comment on above: Order Comment: No: D o not add to previous draw Performed By: #### 0 0071, 96662, 21448, 15705, 10651, 45584 #### [facility] [address] [place] [address], [facility] WBC (Bld) [#/Vol] 4.92 10*3/uL Normal 4.00-10.60 [facility] Comment on above: Order Comment: No: D o not add to previous draw Performed By: #### 0 0071, 47872, 55276, 31294, 55032, 57193 #### [facility] [address] [place] [address], [facility] POC GLUCOSE LABon 04-10-2018 Glucose [Mass/Vol] 245 mg/dL High 70-100 [facility] Comment on above: Performed By: #### 0 0071, 77223, 50629, 06404, 77124, 57180 #### [facility] [address] [facility]. [address] Glucose [Mass/Vol] 220 mg/dL High 70-100 [facility] Comment on above: Performed By: #### 0 0071, 91559, 54718, 69821, 54434, 64896 #### [facility] [address] [facility] [address] PROTHROMBIN TIMEon 9 INR Coag (PPP) [Relative time] 1.84 {INR} High 0.91-1.16 [facility] Comment on above: Result Comment: ACCC P RECOMMENDED INR FOR WARFARIN THERAPY --------- ------- CONDITION INR PROPHYLAXIS OF VENOUS THROMBOSIS 2-3 (HIGH-RISK SURGERY) TREATMENT OF VENOUS THROMBOSIS 2-3 TREATMENT OF PULMONARY EMBOLISM 2-3 PREVENTION OF SYSTEMIC EMBOLISM: 2-3 ACUTE MYOCARDIAL INFARCTION TISSUE HEART VALVES VALVULAR HEART DISEASE ATRIAL FIBRILLATION RECURRENT SYSTEMIC EMBOLISM MECHANICAL HEART VALVE 2.5-3.5 FROM: ORAL ANTICOAGULANTS. MECHANISM OF ACTION, CLINICAL EFFECTIVENESS, AND OPTIMAL THERAPEUTIC RANGE. CHEST 1995;108:231S-246S. Performed By: #### 0 0071, 30390, 62065, 68483, 50142, 60541 #### [facility] [address] [facility] [place] [address], [facility] PT Coag (PPP) [Time] 21.3 s High 12.3-14.8 [facility] Comment on above: Result Comment: ALL RESULTS MUST BE INTERPRETED WITH RESPECT TO BLOOD DRAWING ARTIFACT OR DILUTION ERROR OF ANTICOAGULANT AT THE TIME OF SAMPLING. Performed By: #### 0 0071, 09660, 66700, 97867, 86673, 51867 #### [facility] [address] [place] [address], [facility] BASIC METABOLIC PANELon 03-22 Calcium [Mass/Vol] 8.5 mg/dL Low 8.6-10.3 [facility] Comment on above: Order Comment: No: D o not add to previous draw Performed By: #### 0 0071, 58256, 99789, 76081, 78148, 42166 #### [facility] [address] [place] [address], [facility] Chloride [Moles/Vol] 104 mmol/L Normal 98-107 [facility] Comment on above: Order Comment: No: D o not add to previous draw Performed By: #### 0 0071, 54675, 89332, 48636, 03622, 19490 #### [facility] [address] [place] [address], [place] CO2 [Moles/Vol] 24 mmol/L Normal 21-31 [facility] Comment on above: Order Comment: No: D o not add to previous draw Performed By: #### 0 0071, 45715, 16187, 50604, 51377, 54697 #### [facility] [address] [place] [address], [place] Creatinine [Mass/Vol] 0.90 mg/dL Normal 0.60-1.20 [facility] Comment on above: Order Comment: No: D o not add to previous draw Performed By: #### 0 0071, 11414, 44817, 50595, 91993, 70756 #### [facility] [address] [place] [address], [place] GFR/1.73 sq M predicted among blacks MDRD (S/P/Bld) [Vol rate/Area] mL/min/{1.73_m2} Normal >60 [facility] Comment on above: Order Comment: No: D o not add to previous draw Result Comment: Calc ulation may not be valid for patients over 70 years Performed By: #### 0 0071, 44616, 63887, 86029, 07706, 63437 #### [facility] [address] [place] [address], [facility] GFR/1.73 sq M predicted among non-blacks MDRD (S/P/Bld) [Vol rate/Area] mL/min/{1.73_m2} Normal >60 [facility] Comment on above: Order Comment: No: D o not add to previous draw Result Comment: Calc ulation may not be valid for patients over 70 years Performed By: #### 0 0071, 25110, 37789, 12456, 71697, 67481 #### [facility] [address] [place] [address], [place] Glucose [Mass/Vol] 173 mg/dL High 70-100 [facility] Comment on above: Order Comment: No: D o not add to previous draw Performed By: #### 0 0071, 67329, 13175, 62757, 11108, 65963 #### [facility] [address] [place] [address], [place] Potassium [Moles/Vol] 4.1 mmol/L Normal 3.5-5.1 [facility] Comment on above: Order Comment: No: D o not add to previous draw Performed By: #### 0 0071, 27155, 78850, 44899, 55676, 17518 #### [facility] [address] [place] [address], [place] Sodium [Moles/Vol] 136 mmol/L Normal 136-145 [facility] Comment on above: Order Comment: No: D o not add to previous draw Performed By: #### 0 0071, 37982, 24395, 38176, 42537, 50502 #### [facility] [address] Urea nitrogen [Mass/Vol] 21 mg/dL Normal 7-25 [facility] Comment on above: Order Comment: No: D o not add to previous draw Performed By: #### 0 0071, 96524, 85496, 53535, 17083, 07099 #### [facility] [address] [facility] [place] [address], [facility] CBC COMPLETE BLOOD COUNTon 0 04-09-2018 Erythrocyte distribution width (RBC) [Ratio] 12.9 % Normal 11.5-15.0 [facility] Comment on above: Order Comment: No: D o not add to previous draw Performed By: #### 0 0071, 34665, 68839, 22515, 48830, 57201 #### [facility] [address] Hematocrit (Bld) [Volume fraction] 35.1 % Low 36.0-45.0 [facility] Comment on above: Order Comment: No: D o not add to previous draw Performed By: #### 0 0071, 71512, 70619, 96821, 84247, 36465 #### [facility] [address] [facility] [place] [address], [facility] Hemoglobin (Bld) [Mass/Vol] 11.4 g/dL Low 12.0-15.0 [facility] Comment on above: Order Comment: No: D o not add to previous draw Performed By: #### 0 0071, 51417, 26200, 28673, 13136, 37872 #### [facility] [address] [place] [address], [facility] MCH (RBC) [Entitic mass] 29.8 pg Normal 27.0-33.0 [facility] Comment on above: Order Comment: No: D o not add to previous draw Performed By: #### 0 0071, 84634, 27060, 67782, 50753, 96172 #### [facility] [address] [facility] [address] MCHC (RBC) [Mass/Vol] 32.5 g/dL Normal 32.0-35.0 [facility] Comment on above: Order Comment: No: D o not add to previous draw Performed By: #### 0 0071, 75244, 29885, 38213, 69448, 04480 #### [facility] [address] [place] [address], [facility] MCV (RBC) [Entitic vol] 91.9 fL Normal 82.0-98.0 [facility] Comment on above: Order Comment: No: D o not add to previous draw Performed By: #### 0 0071, 12869, 81437, 52437, 78844, 28829 #### [facility] [address] [facility] [place] [address], [facility] Nucleated RBC/100 WBC (Bld) [Ratio] 0 % Normal 0-0 [facility] Comment on above: Order Comment: No: D o not add to previous draw Performed By: #### 0 0071, 10549, 22646, 20941, 74299, 41893 #### [facility] [address] [place] [address], [facility] PLAT CNT 171 10*3/uL Normal 150-400 [facility] Comment on above: Order Comment: No: D o not add to previous draw Performed By: #### 0 0071, 09645, 38489, 17767, 74144, 98034 #### [facility] [address] [facility] [place] [address], [facility] RBC (Bld) [#/Vol] 3.82 10*6/uL Normal 3.80-5.00 [facility] Comment on above: Order Comment: No: D o not add to previous draw Performed By: #### 0 0071, 84634, 88319, 31911, 42261, 57601 #### [facility] [address] [place] [id number], [facility] WBC (Bld) [#/Vol] 5.35 10*3/uL Normal 4.00-10.60 [facility] Comment on above: Order Comment: No: D o not add to previous draw Performed By: #### 0 0071, 53537, 16670, 68373, 00143, 40291 #### [facility] [address] [place] [address], [facility] Cardiovascular Lab Reporton 04-09-2018 Cardiovascular Lab Report [facility] Patient Name: Mohan Espinoza [facility] MR #: [id number] Physician: Jane Clark of [facility] Medicine Service Date: 04/08/2018 Division of Birthdate: 1935 Cardiology Room #: [id number] Adult Cardiovascular Services [facility] [address] [facility]. [place] [address] Cardiovascular Laboratory Report CARDIAC CATHETERIZATION REPORT INDICATION: The patient is an 82-year-old woman with coronary artery disease status post bypass surgery in the past. She is admitted with a urinary tract infection and dwq-CS-gdkdkpo elevation myocardial infarction. She was referred for [...] signed informed consent. She was brought to laboratory courier in a fasting state. The right groin area was prepped and draped in usual fashion. Using micropuncture technique, the right common femoral artery was accessed. The inner cannula was advanced and the right femoral angiography was performed followed by upsizing to a 6-Bhutanese x 11 cm sheath. Bilateral selective coronary angiography was then performed using 6-Bhutanese JL4 and JR4 diagnostic catheters. A 6-Bhutanese AR2 diagnostic catheter was used to selectively engage the saphenous venous graft to the obtuse marginal branch and right coronary artery and the radial graft to the diagonal branch. Angiography was performed. Catheter was removed. A 6-Bhutanese FRANCES diagnostic catheter was used to selectively engage the left subclavian artery and then selectively engage. The left internal mammary artery angiography was performed. Catheter was removed. Heparin was administered intravenously and therapeutic ACT confirmed during the procedure. A 6-Bhutanese JR4 guiding catheter was advanced and used to engage the right coronary ostium. A Photobucket wire was advanced into the distal RCA, balloon angioplasty in the distal RCA was performed using Emerge 2.5 x 15 mm balloon inflated at 12 atmospheres. The balloon was brought backwards to the mid RCA and used to perform balloon angioplasty. Additional balloon dilatation was then performed using a NC Quantum [place] 2.5 x 8 mm balloon inflated at [...] 32 mm drug-eluting stent deployed in the dqcqroaz-zh-acp RCA at 11 atmospheres. Following that, NC Quantum [place] 2.5 x 8 mm noncompliant balloon was advanced into the distal stent and used to perform postdilatation at 16 atmospheres followed by postdilatation using NC Quantum [place] 3.0 x 8 mm balloon inflated at 18 atmospheres in the distal stent of the mid segment followed by additional postdilatation using NC Quantum [place] 3.0 x 20 mm noncompliant balloon inflated at 18 atmospheres in the bvxjvixz-he-wry segment stent. Intracoronary nitroglycerin 100 mcg was administered followed by final angiography, which showed excellent result with reduction of the stenosis to 0%. No evidence of dissection or perforation. The guiding catheter was removed. Procedure was concluded. The right femoral arteriotomy was managed with a 6-Bhutanese Angio-Seal device with good hemostasis. She tolerated [...] throughout its course reaching 99% in the tcffcorv-uc-btg segment. Another lesion was 90% in the avh-hs-ubzvpm segment and then this was followed by [...] graft to the PDA). 3. A 99% mjfxxfuc-ui-zxf, 90% mid, and 99% kgn-sh-xxijxs stenosis in the RCA, all reduced to [...] Randolph M.D. Date Trans: 04/09/2018 06:33 Luna/alli [id number] cc: Romario Baker M.D. [address] [place] [address] Robert Tompkins M.D. [address] [place] [address] Normal [facility] MAGNESIUM BLOODon 04-09-2018 Magnesium [Mass/Vol] 1.6 mg/dL Low 1.9-2.7 [facility] Comment on above: Order Comment: No: D o not add to previous draw Performed By: #### 0 0071, 05106, 17640, 28040, 68182, 06631 #### [facility] [address] [place] [address], [facility] POC GLUCOSE LABon 04-09-2018 Glucose [Mass/Vol] 253 mg/dL High 70-100 [facility] Comment on above: Performed By: #### 0 0071, 76063, 92856, 76236, 21246, 47659 #### [facility] [address] [place] [address], [place] Glucose [Mass/Vol] 161 mg/dL High 70-100 [facility] Comment on above: Performed By: #### 0 0071, 67460, 55872, 68628, 27234, 50941 #### [facility] [address] [facility] [address], [facility] Glucose [Mass/Vol] 244 mg/dL High 70-100 [facility] Comment on above: Performed By: #### 0 0071, 87207, 89524, 27381, 93830, 76969 #### [facility] [address] [place] [address], [facility] Glucose [Mass/Vol] 175 mg/dL High 70-100 [facility] Comment on above: Performed By: #### 0 0071, 30738, 56836, 67775, 66392, 96699 #### [facility] [address] [facility] [place] [address], [facility] PROTHROMBIN TIMEon 9 INR Coag (PPP) [Relative time] 1.72 {INR} High 0.91-1.16 [facility] Comment on above: Result Comment: ACCC P RECOMMENDED INR FOR WARFARIN THERAPY --------- ------- CONDITION INR PROPHYLAXIS OF VENOUS THROMBOSIS 2-3 (HIGH-RISK SURGERY) TREATMENT OF VENOUS THROMBOSIS 2-3 TREATMENT OF PULMONARY EMBOLISM 2-3 PREVENTION OF SYSTEMIC EMBOLISM: 2-3 ACUTE MYOCARDIAL INFARCTION TISSUE HEART VALVES VALVULAR HEART DISEASE ATRIAL FIBRILLATION RECURRENT SYSTEMIC EMBOLISM MECHANICAL HEART VALVE 2.5-3.5 FROM: ORAL ANTICOAGULANTS. MECHANISM OF ACTION, CLINICAL EFFECTIVENESS, AND OPTIMAL THERAPEUTIC RANGE. CHEST 1995;108:231S-246S. Performed By: #### 0 0071, 46942, 63686, 25523, 46989, 15541 #### [facility] [address] [place] [address], [facility] PT Coag (PPP) [Time] 20.2 s High 12.3-14.8 [facility] Comment on above: Result Comment: ALL RESULTS MUST BE INTERPRETED WITH RESPECT TO BLOOD DRAWING ARTIFACT OR DILUTION ERROR OF ANTICOAGULANT AT THE TIME OF SAMPLING. Performed By: #### 0 0071, 77258, 65333, 60005, 70344, 77508 #### [facility] [address] [place] [address], [facility] BASIC METABOLIC PANELon 03-22 Calcium [Mass/Vol] 9.1 mg/dL Normal 8.6-10.3 [facility] Comment on above: Order Comment: No: D o not add to previous draw Performed By: #### 0 0071, 68564, 12388, 38863, 72158, 52947 #### [facility] [address] [place] [address], [facility] Chloride [Moles/Vol] 103 mmol/L Normal 98-107 [facility] Comment on above: Order Comment: No: D o not add to previous draw Performed By: #### 0 0071, 00286, 49246, 16007, 86097, 82213 #### [facility] [address] [place] [address], [facility] CO2 [Moles/Vol] 24 mmol/L Normal 21-31 [facility] Comment on above: Order Comment: No: D o not add to previous draw Performed By: #### 0 0071, 72411, 55853, 97594, 18682, 55124 #### [facility] [address] [place] [address], [place] Creatinine [Mass/Vol] 0.95 mg/dL Normal 0.60-1.20 [facility] Comment on above: Order Comment: No: D o not add to previous draw Performed By: #### 0 0071, 22453, 75586, 99823, 94978, 50499 #### [facility] [address] [place] [address], [place] GFR/1.73 sq M predicted among blacks MDRD (S/P/Bld) [Vol rate/Area] mL/min/{1.73_m2} Normal >60 [facility] Comment on above: Order Comment: No: D o not add to previous draw Result Comment: Calc ulation may not be valid for patients over 70 years Performed By: #### 0 0071, 20777, 03595, 59221, 90700, 08825 #### [facility] [address] [place] [address], [facility] GFR/1.73 sq M predicted among non-blacks MDRD (S/P/Bld) [Vol rate/Area] 56 ml/min/1.73sq m Abnormal >60 [facility] Comment on above: Order Comment: No: D o not add to previous draw Result Comment: Calc ulation may not be valid for patients over 70 years Performed By: #### 0 0071, 01927, 57081, 47741, 38935, 44707 #### [facility] [address] [facility] [place] [address], [facility] Glucose [Mass/Vol] 158 mg/dL High 70-100 [facility] Comment on above: Order Comment: No: D o not add to previous draw Performed By: #### 0 0071, 74692, 94653, 35633, 14136, 48564 #### [facility] [address] [place] [address], [facility] Potassium [Moles/Vol] 4.3 mmol/L Normal 3.5-5.1 [facility] Comment on above: Order Comment: No: D o not add to previous draw Performed By: #### 0 0071, 04439, 11019, 07235, 31870, 47047 #### [facility] [address] [place] [address], [place] Sodium [Moles/Vol] 134 mmol/L Low 136-145 [facility] Comment on above: Order Comment: No: D o not add to previous draw Performed By: #### 0 0071, 81132, 00057, 13409, 65378, 16699 #### [facility] [address] [place], [place] [address] [place] [address] Urea nitrogen [Mass/Vol] 24 mg/dL Normal 7-25 [facility] Comment on above: Order Comment: No: D o not add to previous draw Performed By: #### 0 0071, 83668, 30094, 43757, 59371, 73511 #### [facility] [address] [place], [place] [address] [place] [address] CBC COMPLETE BLOOD COUNTon 04-08-2018 Erythrocyte distribution width (RBC) [Ratio] 13.0 % Normal 11.5-15.0 [facility] Comment on above: Order Comment: No: D o not add to previous draw Performed By: #### 0 0071, 98395, 85933, 57079, 25847, 17741 #### [facility] [address] [facility] [place] Hematocrit (Bld) [Volume fraction] 38.4 % Normal 36.0-45.0 [facility] Comment on above: Order Comment: No: D o not add to previous draw Performed By: #### 0 0071, 45603, 97206, 12398, 29282, 59421 #### [facility] [address] [place] [address], [facility] Hemoglobin (Bld) [Mass/Vol] 12.7 g/dL Normal 12.0-15.0 [facility] Comment on above: Order Comment: No: D o not add to previous draw Performed By: #### 0 0071, 00488, 50714, 38898, 73605, 00576 #### [facility] [address] [place] [address], [facility] MCH (RBC) [Entitic mass] 30.4 pg Normal 27.0-33.0 [facility] Comment on above: Order Comment: No: D o not add to previous draw Performed By: #### 0 0071, 67316, 08382, 39398, 61261, 07640 #### [facility] [address] [place] [address], [facility] MCHC (RBC) [Mass/Vol] 33.1 g/dL Normal 32.0-35.0 [facility] Comment on above: Order Comment: No: D o not add to previous draw Performed By: #### 0 0071, 20955, 96645, 00899, 41662, 82545 #### [facility] [address] [place] [address], [facility] MCV (RBC) [Entitic vol] 91.9 fL Normal 82.0-98.0 [facility] Comment on above: Order Comment: No: D o not add to previous draw Performed By: #### 0 0071, 35284, 22222, 88522, 59033, 27059 #### [facility] [address] [facility] [place] [address], [facility] Nucleated RBC/100 WBC (Bld) [Ratio] 0 % Normal 0-0 [facility] Comment on above: Order Comment: No: D o not add to previous draw Performed By: #### 0 0071, 42407, 81316, 37642, 66650, 50916 #### [facility] [address] [place] [address], [facility] PLAT CNT 164 10*3/uL Normal 150-400 [facility] Comment on above: Order Comment: No: D o not add to previous draw Performed By: #### 0 0071, 56856, 44382, 97617, 76542, 34756 #### [facility] [address] [place] [address], [facility] RBC (Bld) [#/Vol] 4.18 10*6/uL Normal 3.80-5.00 [facility] Comment on above: Order Comment: No: D o not add to previous draw Performed By: #### 0 0071, 96814, 78832, 66388, 65787, 96348 #### [facility] [address] [facility] [place] [place] [address], [facility] WBC (Bld) [#/Vol] 6.62 10*3/uL Normal 4.00-10.60 [facility] Comment on above: Order Comment: No: D o not add to previous draw Performed By: #### 0 0071, 65155, 76035, 83923, 66078, 76045 #### [facility] [address] [place] [address], [facility] MAGNESIUM BLOODon 04-08-2018 Magnesium [Mass/Vol] 1.9 mg/dL Normal 1.9-2.7 [facility] Comment on above: Order Comment: No: D o not add to previous draw Performed By: #### 0 0071, 20552, 56205, 48075, 03530, 64521 #### [facility] [address] [place] [address], [facility] POC GLUCOSE LABon 04-08-2018 Glucose [Mass/Vol] 199 mg/dL High 70-100 [facility] Comment on above: Performed By: #### 0 0071, 47602, 64523, 76199, 76582, 47518 #### [facility] [address] [place] [address], [facility] Glucose [Mass/Vol] 198 mg/dL High 70-100 [facility] Comment on above: Performed By: #### 0 0071, 70417, 69071, 44493, 23065, 43938 #### [facility] [address] [place] [id number], [facility] Glucose [Mass/Vol] 155 mg/dL High 70-100 [facility] Comment on above: Performed By: #### 0 0071, 28670, 21173, 06343, 11956, 54089 #### [facility] [address] [place] [id number], [facility] PROTHROMBIN TIMEon 9 INR Coag (PPP) [Relative time] 1.68 {INR} High 0.91-1.16 [facility] Comment on above: Result Comment: ACCC P RECOMMENDED INR FOR WARFARIN THERAPY --------- ------- CONDITION INR PROPHYLAXIS OF VENOUS THROMBOSIS 2-3 (HIGH-RISK SURGERY) TREATMENT OF VENOUS THROMBOSIS 2-3 TREATMENT OF PULMONARY EMBOLISM 2-3 PREVENTION OF SYSTEMIC EMBOLISM: 2-3 ACUTE MYOCARDIAL INFARCTION TISSUE HEART VALVES VALVULAR HEART DISEASE ATRIAL FIBRILLATION RECURRENT SYSTEMIC EMBOLISM MECHANICAL HEART VALVE 2.5-3.5 FROM: ORAL ANTICOAGULANTS. MECHANISM OF ACTION, CLINICAL EFFECTIVENESS, AND OPTIMAL THERAPEUTIC RANGE. CHEST 1995;108:231S-246S. Performed By: #### 0 0071, 93920, 84957, 80392, 88489, 40968 #### [facility] [address] [facility]. [address] PT Coag (PPP) [Time] 19.9 s High 12.3-14.8 [facility] Comment on above: Result Comment: ALL RESULTS MUST BE INTERPRETED WITH RESPECT TO BLOOD DRAWING ARTIFACT OR DILUTION ERROR OF ANTICOAGULANT AT THE TIME OF SAMPLING. Performed By: #### 0 0071, 85284, 53529, 82230, 03161, 95595 #### [facility] [address] [facility] *RAPID FLU AANDB BY MITCHELL Connor 04-07-2018 *RAPID FLU AANDB BY MOLECULAR Clinical Report: (D) Specimen: NASAL SWAB Collected: 04/06/2018 22:10 Status: Final Last Updated: 04/06/2018 23:10 FLUA RNA (Final) Negative FLUB RNA (Final) Negative Normal [facility] Comment on above: Performed By: #### 0 0071, 41898, 56346, 44746, 79447, 67823 #### [facility] [address] [place] [address], [facility] BASIC METABOLIC PANELon 03-22 Calcium [Mass/Vol] 8.3 mg/dL Low 8.6-10.3 [facility] Comment on above: Order Comment: No: D o not add to previous draw Performed By: #### 0 0071, 28459, 12671, 01889, 52929, 69871 #### [facility] [address] [place] [address], [facility] Chloride [Moles/Vol] 105 mmol/L Normal 98-107 [facility] Comment on above: Order Comment: No: D o not add to previous draw Performed By: #### 0 0071, 48594, 82647, 46399, 21301, 28661 #### [facility] [address] [place] [address], [facility] CO2 [Moles/Vol] 24 mmol/L Normal 21-31 [facility] Comment on above: Order Comment: No: D o not add to previous draw Performed By: #### 0 0071, 19355, 27255, 56108, 64249, 43407 #### [facility] [address] [place] [id number], [facility] Creatinine [Mass/Vol] 1.24 mg/dL High 0.60-1.20 [facility] Comment on above: Order Comment: No: D o not add to previous draw Performed By: #### 0 0071, 97641, 66802, 94424, 77712, 54778 #### [facility] [address] [place] [address], [place] GFR/1.73 sq M predicted among blacks MDRD (S/P/Bld) [Vol rate/Area] 50 ml/min/1.73sq m Abnormal >60 [facility] Comment on above: Order Comment: No: D o not add to previous draw Result Comment: Calc ulation may not be valid for patients over 70 years Performed By: #### 0 0071, 56456, 67106, 41237, 07282, 24851 #### [facility] [address] [place] [address], [facility] GFR/1.73 sq M predicted among non-blacks MDRD (S/P/Bld) [Vol rate/Area] 42 ml/min/1.73sq m Abnormal >60 [facility] Comment on above: Order Comment: No: D o not add to previous draw Result Comment: Calc ulation may not be valid for patients over 70 years Performed By: #### 0 0071, 95907, 10071, 28070, 67722, 04098 #### [facility] [address] [place] [address], [facility] Glucose [Mass/Vol] 166 mg/dL High 70-100 [facility] Comment on above: Order Comment: No: D o not add to previous draw Performed By: #### 0 0071, 12872, 98265, 34891, 52806, 96161 #### [facility] [address] [place] [address], [facility] Potassium [Moles/Vol] 4.2 mmol/L Normal 3.5-5.1 [facility] Comment on above: Order Comment: No: D o not add to previous draw Performed By: #### 0 0071, 48666, 18328, 79423, 74043, 67236 #### [facility] [address] [place] [address], [facility] Sodium [Moles/Vol] 135 mmol/L Low 136-145 [facility] Comment on above: Order Comment: No: D o not add to previous draw Performed By: #### 0 0071, 81062, 77472, 72221, 24999, 70709 #### [facility] [address] [place] [address], [facility] Urea nitrogen [Mass/Vol] 33 mg/dL High 7-25 [facility] Comment on above: Order Comment: No: D o not add to previous draw Performed By: #### 0 0071, 50975, 29120, 53180, 12929, 51322 #### [facility] [address] [place] [address], [facility] CBC W/DIFFon 04-07-2018 ABS BASOPHILS 0.1 10*3/uL Normal 0.0-0.2 [facility] Comment on above: Order Comment: No: D o not add to previous draw Performed By: #### 0 0071, 56780, 25610, 19208, 63109, 90171 #### [facility] [address] ABS IMM GRANS 0.1 10*3/uL Normal 0.0-0.2 [facility] Comment on above: Order Comment: No: D o not add to previous draw Performed By: #### 0 0071, 60488, 88996, 82354, 81683, 24935 #### [facility] [address] ABS NEUTROPHILS 6.4 10*3/uL Normal 1.6-7.6 [facility] Comment on above: Order Comment: No: D o not add to previous draw Performed By: #### 0 0071, 40090, 04605, 63565, 41910, 89492 #### [facility] [address] [place] [address], [facility] Basophils/100 WBC (Bld) 0.5 % Normal 0.0-1.0 [facility] Comment on above: Order Comment: No: D o not add to previous draw Performed By: #### 0 0071, 94092, 60761, 06494, 85964, 10002 #### [facility] [address] [place] [address], [facility] Eosinophils (Bld) [#/Vol] 0.0 10*3/uL Normal 0.0-0.5 [facility] Comment on above: Order Comment: No: D o not add to previous draw Performed By: #### 0 0071, 08120, 10721, 90592, 26123, 32455 #### [facility] [address] [place] [address], [facility] Eosinophils/100 WBC (Bld) 0.0 % Normal 0.0-6.0 [facility] Comment on above: Order Comment: No: D o not add to previous draw Performed By: #### 0 0071, 15169, 25139, 22589, 44191, 91099 #### [facility] [address] Erythrocyte distribution width (RBC) [Ratio] 13.2 % Normal 11.5-15.0 [facility] Comment on above: Order Comment: No: D o not add to previous draw Performed By: #### 0 0071, 32717, 90573, 72739, 85153, 26415 #### [facility] [address] [facility] [address] Hematocrit (Bld) [Volume fraction] 35.0 % Low 36.0-45.0 [facility] Comment on above: Order Comment: No: D o not add to previous draw Performed By: #### 0 0071, 91562, 53700, 79186, 77259, 86675 #### [facility] [address] [facility] [address] Hemoglobin (Bld) [Mass/Vol] 11.4 g/dL Low 12.0-15.0 [facility] Comment on above: Order Comment: No: D o not add to previous draw Performed By: #### 0 0071, 89030, 38883, 72722, 55378, 51737 #### [facility] [address] [place] [address], [facility] IMMATURE GRANS 0.5 % Normal 0.0-1.0 [facility] Comment on above: Order Comment: No: D o not add to previous draw Performed By: #### 0 0071, 67224, 49230, 11358, 74529, 53124 #### [facility] [address] Lymphocytes (Bld) [#/Vol] 2.1 10*3/uL Normal 1.2-4.0 [facility] Comment on above: Order Comment: No: D o not add to previous draw Performed By: #### 0 0071, 46808, 58968, 77980, 24631, 52124 #### [facility] [address] [facility] [place] [address], [facility] Lymphocytes/100 WBC (Bld) 21.7 % Normal 20.0-45.0 [facility] Comment on above: Order Comment: No: D o not add to previous draw Performed By: #### 0 0071, 25010, 90889, 18171, 19296, 43133 #### [facility] [address] [facility] [place] [address], [facility] MCH (RBC) [Entitic mass] 29.8 pg Normal 27.0-33.0 [facility] Comment on above: Order Comment: No: D o not add to previous draw Performed By: #### 0 0071, 29481, 24702, 58659, 74287, 43314 #### [facility] [address] [place] [address], [facility] MCHC (RBC) [Mass/Vol] 32.6 g/dL Normal 32.0-35.0 [facility] Comment on above: Order Comment: No: D o not add to previous draw Performed By: #### 0 0071, 59929, 98507, 86851, 00401, 55951 #### [facility] [address] [place] [address], [facility] MCV (RBC) [Entitic vol] 91.4 fL Normal 82.0-98.0 [facility] Comment on above: Order Comment: No: D o not add to previous draw Performed By: #### 0 0071, 89709, 03919, 71413, 00297, 59146 #### [facility] [address] [place] [address], [facility] Monocytes (Bld) [#/Vol] 1.0 10*3/uL Normal 0.1-1.0 [facility] Comment on above: Order Comment: No: D o not add to previous draw Performed By: #### 0 0071, 41460, 10835, 72484, 16728, 02185 #### [facility] [address] [place] [address], [facility] MONOS 10.6 % Normal 5.0-12.0 [facility] Comment on above: Order Comment: No: D o not add to previous draw Performed By: #### 0 0071, 65063, 64333, 09938, 84944, 57123 #### [facility] [address] [facility] [place] [place] [address], [facility] Neutrophils/100 WBC (Bld) 66.7 % Normal 40.0-72.0 [facility] Comment on above: Order Comment: No: D o not add to previous draw Performed By: #### 0 0071, 23477, 03970, 96961, 10641, 38695 #### [facility] [address] [facility]. [address] Nucleated RBC/100 WBC (Bld) [Ratio] 0 % Normal 0-0 [facility] Comment on above: Order Comment: No: D o not add to previous draw Performed By: #### 0 0071, 17453, 55257, 80341, 07393, 33452 #### [facility] [address] [facility] [place] [place] [address], [facility] PLAT CNT 150 10*3/uL Normal 150-400 [facility] Comment on above: Order Comment: No: D o not add to previous draw Performed By: #### 0 0071, 62377, 40077, 85084, 57233, 91852 #### [facility] [address] [place] [address], [facility] RBC (Bld) [#/Vol] 3.83 10*6/uL Normal 3.80-5.00 [facility] Comment on above: Order Comment: No: D o not add to previous draw Performed By: #### 0 0071, 95641, 62190, 62385, 26417, 06980 #### [facility] [address] [place] [address], [facility] WBC (Bld) [#/Vol] 9.53 10*3/uL Normal 4.00-10.60 [facility] Comment on above: Order Comment: No: D o not add to previous draw Performed By: #### 0 0071, [id number], 88020, 06896, 98615, 12438 #### [facility] [address] [place] [address], [facility] MAGNESIUM BLOODon 04-07-2018 Magnesium [Mass/Vol] 1.4 mg/dL Low 1.9-2.7 [facility] Comment on above: Order Comment: No: D o not add to previous draw Performed By: #### 0 0071, [id number], 17790, 20706, 63746, 31845 #### [facility] [address] [place] [address], [facility] PHOSPHORUS BLOODon 9 Phosphate [Mass/Vol] 2.6 mg/dL Normal 2.5-5.0 [facility] Comment on above: Order Comment: No: D o not add to previous draw Performed By: #### 0 0071, 30982, 41004, 20854, 60693, 15439 #### [facility] [address] [place] [address], [place] POC GLUCOSE LABon 04-07-2018 Glucose [Mass/Vol] 187 mg/dL High 70-100 [facility] Comment on above: Performed By: #### 0 0071, 44670, 54197, 43396, 92400, 09998 #### [facility] [address] [place] [address], [place] Glucose [Mass/Vol] 182 mg/dL High 70-100 [facility] Comment on above: Performed By: #### 0 0071, 35922, 59617, 24671, 24101, 08220 #### [facility] [address] [place] [address], [facility] Glucose [Mass/Vol] 156 mg/dL High 70-100 [facility] Comment on above: Performed By: #### 0 0071, 99161, 78737, 43326, 49963, 48311 #### [facility] [address] [facility] [place] [address], [facility] Glucose [Mass/Vol] 148 mg/dL High 70-100 [facility] Comment on above: Performed By: #### 0 0071, 14867, 12793, 39020, 16931, 35054 #### [facility] [address] PROTHROMBIN TIMEon 9 INR Coag (PPP) [Relative time] 1.65 {INR} High 0.91-1.16 [facility] Comment on above: Result Comment: ACCC P RECOMMENDED INR FOR WARFARIN THERAPY --------- ------- CONDITION INR PROPHYLAXIS OF VENOUS THROMBOSIS 2-3 (HIGH-RISK SURGERY) TREATMENT OF VENOUS THROMBOSIS 2-3 TREATMENT OF PULMONARY EMBOLISM 2-3 PREVENTION OF SYSTEMIC EMBOLISM: 2-3 ACUTE MYOCARDIAL INFARCTION TISSUE HEART VALVES VALVULAR HEART DISEASE ATRIAL FIBRILLATION RECURRENT SYSTEMIC EMBOLISM MECHANICAL HEART VALVE 2.5-3.5 FROM: ORAL ANTICOAGULANTS. MECHANISM OF ACTION, CLINICAL EFFECTIVENESS, AND OPTIMAL THERAPEUTIC RANGE. CHEST 1995;108:231S-246S. Performed By: #### 0 0071, 17139, 50114, 07472, 15734, 33024 #### [facility] [address] [place] [address], [place] PT Coag (PPP) [Time] 19.6 s High 12.3-14.8 [facility] Comment on above: Result Comment: ALL RESULTS MUST BE INTERPRETED WITH RESPECT TO BLOOD DRAWING ARTIFACT OR DILUTION ERROR OF ANTICOAGULANT AT THE TIME OF SAMPLING. Performed By: #### 0 0071, 22752, 33016, 11809, 06468, 29089 #### [facility] [address] [place] [address], [place] INR Coag (PPP) [Relative time] 1.68 {INR} High 0.91-1.16 [facility] Comment on above: Result Comment: ACCC P RECOMMENDED INR FOR WARFARIN THERAPY --------- ------- CONDITION INR PROPHYLAXIS OF VENOUS THROMBOSIS 2-3 (HIGH-RISK SURGERY) TREATMENT OF VENOUS THROMBOSIS 2-3 TREATMENT OF PULMONARY EMBOLISM 2-3 PREVENTION OF SYSTEMIC EMBOLISM: 2-3 ACUTE MYOCARDIAL INFARCTION TISSUE HEART VALVES VALVULAR HEART DISEASE ATRIAL FIBRILLATION RECURRENT SYSTEMIC EMBOLISM MECHANICAL HEART VALVE 2.5-3.5 FROM: ORAL ANTICOAGULANTS. MECHANISM OF ACTION, CLINICAL EFFECTIVENESS, AND OPTIMAL THERAPEUTIC RANGE. CHEST 1995;108:231S-246S. Performed By: #### 0 0071, 97126, 33071, 33721, 62685, 18632 #### [facility] [address] [place] [address], [place] PT Coag (PPP) [Time] 19.9 s High 12.3-14.8 [facility] Comment on above: Result Comment: ALL RESULTS MUST BE INTERPRETED WITH RESPECT TO BLOOD DRAWING ARTIFACT OR DILUTION ERROR OF ANTICOAGULANT AT THE TIME OF SAMPLING. Performed By: #### 0 0071, 99291, 88514, 81990, 05906, 46620 #### [facility] [address] TROPONIN-Ion 04-07-2018 Troponin I.cardiac [Mass/Vol] 0.15 ng/mL Critically high 0.00-0.04 [facility] Comment on above: Order Comment: No: D o not add to previous draw Result Comment: M-SD EVIOUS CRITICAL RESULT REFERENCE RANGES: 0.00 - 0.04 ng/ml NORMAL 0.05 - 0.50 ng/ml INDETERMINATE > 0.50 ng/ml CONSISTENT WITH AN M.I. Performed By: #### 0 0071, 52589, 99047, 40465, 47246, 07730 #### [facility] [address] Troponin I.cardiac [Mass/Vol] 0.17 ng/mL Critically high 0.00-0.04 [facility] Comment on above: Result Comment: M-SD EVIOUS CRITICAL RESULT REFERENCE RANGES: 0.00 - 0.04 ng/ml NORMAL 0.05 - 0.50 ng/ml INDETERMINATE > 0.50 ng/ml CONSISTENT WITH AN M.I. Performed By: #### 0 0071, 55317, 50262, 14574, 53677, 91268 #### [facility] [address] Troponin I.cardiac [Mass/Vol] 0.20 ng/mL Critically high 0.00-0.04 [facility] Comment on above: Order Comment: No: D o not add to previous draw Result Comment: M-SD EVIOUS CRITICAL RESULT REFERENCE RANGES: 0.00 - 0.04 ng/ml NORMAL 0.05 - 0.50 ng/ml INDETERMINATE > 0.50 ng/ml CONSISTENT WITH AN M.I. Performed By: #### 0 0071, 72365, 78405, 44448, 85384, 39769 #### [facility] [address] [place] [address], [facility] URINALYSIS REFLEXon 04-07-19 19 Appearance (U) SL CLOUDY Abnormal CLEAR [facility] Comment on above: Order Comment: No: D o not add to previous draw Performed By: #### 0 0071, 72253, 82954, 61885, 21262, 53723 #### [facility] [address] [place] [address], [place] Bilirubin [Mass/Vol] Negative Normal NEGATIVE [facility] Comment on above: Order Comment: No: D o not add to previous draw Performed By: #### 0 0071, 56846, 41481, 00365, 84803, 35321 #### [facility] [address] [place] [address], [place] BLOOD Negative Normal NEGATIVE [facility] Comment on above: Order Comment: No: D o not add to previous draw Performed By: #### 0 0071, 00677, 57344, 07124, 42843, 51172 #### [facility] [address] [place] [address], [place] Color (U) YELLOW Normal YELLOW [facility] Comment on above: Order Comment: No: D o not add to previous draw Performed By: #### 0 0071, 78416, 95768, 44742, 97298, 10791 #### [facility] [address] [place] [address], [place] EPIS MANY Abnormal FEW,OCC,NO NE SEEN [facility] Comment on above: Order Comment: No: D o not add to previous draw Performed By: #### 0 0071, 25204, 30749, 85096, 36821, 38071 #### [facility] [address] [place] [address], [place] Glucose [Mass/Vol] Negative Normal NEGATIVE [facility] Comment on above: Order Comment: No: D o not add to previous draw Performed By: #### 0 0071, 46493, 81264, 34598, 65918, 37189 #### [facility] [address] [place] [address], [facility] KETONE Negative Normal NEGATIVE [facility] Comment on above: Order Comment: No: D o not add to previous draw Performed By: #### 0 0071, 82455, 37578, 70885, 23606, 64615 #### [facility] [address] [place] [address], [place] LEUK LIYAH MODERATE Abnormal NEGATIVE [facility] Comment on above: Order Comment: No: D o not add to previous draw Performed By: #### 0 0071, 35684, 72621, 95005, 88540, 25805 #### [facility] [address] [place] [address], [facility] Nitrite Ql (U) Negative Normal NEGATIVE [facility] Comment on above: Order Comment: No: D o not add to previous draw Performed By: #### 0 0071, 78025, 15825, 68000, 39152, 94413 #### [facility] [address] [place] [address], [facility] pH (Bld) 5.0 Normal 5.0-8.0 [facility] Comment on above: Order Comment: No: D o not add to previous draw Performed By: #### 0 0071, 96307, 61532, 80335, 39944, 76132 #### [facility] [address] [place] [address], [facility] Protein (U) [Mass/Vol] Negative Normal NEGATIVE Th [facility] Comment on above: Order Comment: No: D o not add to previous draw Performed By: #### 0 0071, 76932, 67118, 17831, 15546, 76931 #### [facility] [address] [place] [address], [place] RBC (U) [#/Vol] 0-2 Abnormal NONE SEEN [facility] Comment on above: Order Comment: No: D o not add to previous draw Performed By: #### 0 0071, 43123, 50501, 45845, 56785, 93378 #### [facility] [address] [place] [address], [facility] SPEC GRAV 1.019 Normal 1.015-1.02 0 [facility] Comment on above: Order Comment: No: D o not add to previous draw Performed By: #### 0 0071, 36081, 15540, 36577, 17535, 03612 #### [facility] [address] [place] [address], [facility] WBC UA 11-20 Abnormal NONE SEEN [facility] Comment on above: Order Comment: No: D o not add to previous draw Performed By: #### 0 0071, 17189, 05868, 70309, 76928, 63970 #### [facility] [address] *A-LEGIONELLA AG URon 2018 DIRECT EXAM test. Normal [facility] Comment on above: Order Comment: No: D o not add to previous draw [place] Normal [facility] Comment on above: Order Comment: No: D o not add to previous draw REPORT STATUS FINAL 04/07/2018 Normal [facility] Comment on above: Order Comment: No: D o not add to previous draw *BLOOD CULTUREon 04-06-2018 Bacteria identified Cx Nom (Bld) Clinical Report: (D) Specimen: BLOOD CULTURE Collected: 04/06/2018 19:35 Status: Final Last Updated: 04/12/2018 07:54 (1) x 2 Prior to Antibiotic Administration CULT RES (Final) No Growth Day 5 Normal [facility] Comment on above: Order Comment: No: D o not add to previous draw Performed By: #### 0 0071, 66223, 58510, 42026, 94176, 01996 #### [facility] [address] [place] [address], [facility] Bacteria identified Cx Nom (Bld) Clinical Report: (D) Specimen: BLOOD CULTURE Collected: 04/06/2018 19:34 Status: Final Last Updated: 04/12/2018 07:54 (1) x 2 Prior to Antibiotic Administration CULT RES (Final) No Growth Day 5 Normal [facility] Comment on above: Order Comment: No: D o not add to previous draw Performed By: #### 0 0071, 79026, 22107, 45717, 08551, 52970 #### [facility] [address] [place] [address], [place] BASIC METABOLIC PANELon 03-22 Calcium [Mass/Vol] 8.5 mg/dL Low 8.6-10.3 [facility] Comment on above: Order Comment: No: D o not add to previous draw Performed By: #### 0 0071, 31339, 10724, 41145, 69303, 72908 #### [facility] [address] [place] [address], [place] Chloride [Moles/Vol] 104 mmol/L Normal 98-107 [facility] Comment on above: Order Comment: No: D o not add to previous draw Performed By: #### 0 0071, 00072, 86200, 72336, 00817, 90827 #### [facility] [address] [place] [address], [place] CO2 [Moles/Vol] 22 mmol/L Normal 21-31 [facility] Comment on above: Order Comment: No: D o not add to previous draw Performed By: #### 0 0071, 95285, 70467, 32542, 75251, 92222 #### [facility] [address] [place] [address], [place] Creatinine [Mass/Vol] 1.41 mg/dL High 0.60-1.20 [facility] Comment on above: Order Comment: No: D o not add to previous draw Performed By: #### 0 0071, 54102, 27452, 36961, 10648, 16368 #### [facility] [address] [place] [address], [place] GFR/1.73 sq M predicted among blacks MDRD (S/P/Bld) [Vol rate/Area] 44 ml/min/1.73sq m Abnormal >60 [facility] Comment on above: Order Comment: No: D o not add to previous draw Result Comment: Calc ulation may not be valid for patients over 70 years Performed By: #### 0 0071, 97965, 81140, 85638, 50205, 29689 #### [facility] [address] [place] [address], [facility] GFR/1.73 sq M predicted among non-blacks MDRD (S/P/Bld) [Vol rate/Area] 36 ml/min/1.73sq m Abnormal >60 [facility] Comment on above: Order Comment: No: D o not add to previous draw Result Comment: Calc ulation may not be valid for patients over 70 years Performed By: #### 0 0071, 39267, 79015, 17904, 88194, 70714 #### [facility] [address] [facility] [place] [address], [facility] Glucose [Mass/Vol] 198 mg/dL High 70-100 [facility] Comment on above: Order Comment: No: D o not add to previous draw Performed By: #### 0 0071, 30117, 22180, 91041, 42652, 18632 #### [facility] [address] [place] [address], [facility] Potassium [Moles/Vol] 4.7 mmol/L Normal 3.5-5.1 [facility] Comment on above: Order Comment: No: D o not add to previous draw Performed By: #### 0 0071, 38649, 63048, 14365, 12136, 74461 #### [facility] [address] [place] [address], [place] Sodium [Moles/Vol] 135 mmol/L Low 136-145 [facility] Comment on above: Order Comment: No: D o not add to previous draw Performed By: #### 0 0071, 34469, 77723, 47554, 09179, 15976 #### [facility] [address] Urea nitrogen [Mass/Vol] 34 mg/dL High 7-25 [facility] Comment on above: Order Comment: No: D o not add to previous draw Performed By: #### 0 0071, 78275, 18547, 44161, 35317, 78451 #### [facility] [address] [place] [address], [facility] CBC W/DIFFon 04-06-2018 ABS BASOPHILS 0.1 10*3/uL Normal 0.0-0.2 [facility] Comment on above: Performed By: #### 5 0103 #### [facility] [address] ABS IMM GRANS 0.1 10*3/uL Normal 0.0-0.2 [facility] Comment on above: Performed By: #### 5 0103 #### [facility] [address] ABS NEUTROPHILS 11.3 10*3/uL High 1.6-7.6 [facility] Comment on above: Performed By: #### 5 0103 #### [facility] [address] Basophils/100 WBC (Bld) 0.3 % Normal 0.0-1.0 [facility] Comment on above: Performed By: #### 5 0103 #### [facility] [address] [place] [address], [facility] Eosinophils (Bld) [#/Vol] 0.0 10*3/uL Normal 0.0-0.5 [facility] Comment on above: Performed By: #### 5 3 #### [facility] [address] [place] [address], [facility] Eosinophils/100 WBC (Bld) 0.0 % Normal 0.0-6.0 [facility] Comment on above: Performed By: #### 5 0103 #### [facility] [address] [facility]. [address] Erythrocyte distribution width (RBC) [Ratio] 13.1 % Normal 11.5-15.0 [facility] Comment on above: Performed By: #### 5 0103 #### [facility] [address] [facility]. [address] Hematocrit (Bld) [Volume fraction] 38.9 % Normal 36.0-45.0 [facility] Comment on above: Performed By: #### 5 3 #### [facility] [address] Hemoglobin (Bld) [Mass/Vol] 12.7 g/dL Normal 12.0-15.0 [facility] Comment on above: Performed By: #### 5 3 #### [facility] [address] IMMATURE GRANS 0.3 % Normal 0.0-1.0 [facility] Comment on above: Performed By: #### 5 3 #### [facility] [address] Lymphocytes (Bld) [#/Vol] 1.8 10*3/uL Normal 1.2-4.0 [facility] Comment on above: Performed By: #### 5 3 #### [facility] [address] Lymphocytes/100 WBC (Bld) 12.2 % Low 20.0-45.0 [facility] Comment on above: Performed By: #### 5 3 #### [facility] [address] [facility]. [address] MCH (RBC) [Entitic mass] 30.5 pg Normal 27.0-33.0 [facility] Comment on above: Performed By: #### 5 0103 #### [facility] [address] [facility]. [address] MCHC (RBC) [Mass/Vol] 32.6 g/dL Normal 32.0-35.0 [facility] Comment on above: Performed By: #### 3 #### [facility] [address] [place] [address], [facility] MCV (RBC) [Entitic vol] 93.3 fL Normal 82.0-98.0 [facility] Comment on above: Performed By: #### 102 #### [facility] [address] [place] [address], [facility] Monocytes (Bld) [#/Vol] 1.2 10*3/uL High 0.1-1.0 [facility] Comment on above: Performed By: #### 3 #### [facility] [address] MONOS 8.4 % Normal 5.0-12.0 [facility] Comment on above: Performed By: #### 102 #### [facility] [address] Neutrophils/100 WBC (Bld) 78.8 % High 40.0-72.0 [facility] Comment on above: Performed By: #### 5 3 #### [facility] [address] Nucleated RBC/100 WBC (Bld) [Ratio] 0 % Normal 0-0 [facility] Comment on above: Performed By: #### 102 #### [facility] [address] [place] [address], [facility] PLAT CNT 156 10*3/uL Normal 150-400 [facility] Comment on above: Performed By: #### 3 #### [facility] [address] [place] [place] [address], [facility] RBC (Bld) [#/Vol] 4.17 10*6/uL Normal 3.80-5.00 [facility] Comment on above: Performed By: #### 5 0103 #### [address] [address], [facility] WBC (Bld) [#/Vol] 14.33 10*3/uL High 4.00-10.60 [facility] Comment on above: Performed By: #### 5 0103 #### [address] [address], [facility] CHEST AND LATERALon 04-06-19 19 CHEST AND LATERAL [facility] Department of Radiology [address] [place] [address] [phone] Patient Name: MOHAN ESPINOZA : 1935 Sex: F Age: Race: White Pt. Location: [id number] Patient Status: I Ordered Date: 04/06/2018 6:20:00 [...] findings. Electronically signed by:Ronna Villalobos. Transcribed by: [email or web address], User Resident: MURTAZA VILLAGRAN Electronically Signed by: RONNA VILLALOBOS @ 04/07/2018 09:13 AM I personally read this/these film(s) with this resident Normal [facility] Comment on above: Order Comment: No: D o not add to previous draw DIGOXINon 04-06-2018 Digoxin [Mass/Vol] 0.7 ng/mL Normal 0.7-2.0 [facility] Comment on above: Performed By: #### 0 0071, 55726, 75387, 63720, 16572, 98669 #### [facility] [address] [facility] [place] [address], [facility] LIVER BATTERYon 04-06-2018 Albumin [Mass/Vol] 3.4 g/dL Low 3.5-5.7 [facility] Comment on above: Order Comment: No: D o not add to previous draw Performed By: #### 0 0071, 30622, 02369, 40198, 16135, 27065 #### [facility] [address] [place] [address], [facility] ALKALINE PHOSPH 50 IU/L Normal 34-104 [facility] Comment on above: Order Comment: No: D o not add to previous draw Performed By: #### 0 0071, 09663, 65390, 81075, 89264, 49833 #### [facility] [address] [place] [address], [place] ALT [Catalytic activity/Vol] 16 U/L Normal 7-52 [facility] Comment on above: Order Comment: No: D o not add to previous draw Performed By: #### 0 0071, 47017, 18243, 06427, 48211, 34550 #### [facility] [address] [place] [address], [place] AST [Catalytic activity/Vol] 17 U/L Normal 13-39 [facility] Comment on above: Order Comment: No: D o not add to previous draw Performed By: #### 0 0071, 54589, 31662, 40966, 62758, 09219 #### [facility] [address] [place] [address], [place] Bilirubin [Mass/Vol] 0.5 mg/dL Normal 0.3-1.0 [facility] Comment on above: Order Comment: No: D o not add to previous draw Performed By: #### 0 0071, 23177, 37478, 01235, 69968, 42464 #### [facility] [address] [place] [address], [place] Bilirubin.direct [Mass/Vol] 0.1 mg/dL Normal 0.0-0.2 [facility] Comment on above: Order Comment: No: D o not add to previous draw Performed By: #### 0 0071, 15797, 92722, 61399, 61091, 43601 #### [facility] [address] [place] [address], [place] Protein [Mass/Vol] 6.2 g/dL Normal 6.0-8.3 [facility] Comment on above: Order Comment: No: D o not add to previous draw Performed By: #### 0 0071, 88824, 51104, 03221, 03448, 90307 #### [facility] [address] [place] [address], [place] MAGNESIUM BLOODon 04-06-2018 Magnesium [Mass/Vol] 1.3 mg/dL Low 1.9-2.7 [facility] Comment on above: Order Comment: No: D o not add to previous draw Performed By: #### 0 0071, 69083, 26901, 99218, 42253, 45551 #### [facility] [address] [place] [address], [facility] PHOSPHORUS BLOODon 9 Phosphate [Mass/Vol] 2.6 mg/dL Normal 2.5-5.0 [facility] Comment on above: Order Comment: No: D o not add to previous draw Performed By: #### 0 0071, 24896, 20699, 09235, 28475, 94509 #### [facility] [address] [place] [address], [facility] POC GLUCOSE LABon 04-06-2018 Glucose [Mass/Vol] 172 mg/dL High 70-100 [facility] Comment on above: Performed By: #### 8 5499 #### [facility] [address] [place] [address], [facility] PROCALCITONINon 04-06-2018 PROCALCITONIN 2.61 ng/mL Critically high 0.00-0.10 [facility] Comment on above: Order Comment: Yes: Add [...] 2034 Performed By: #### 3 1488 #### [facility] [address] [place] [address], [facility] SEPSIS LACTATE W/REFLEXon Lactate [Moles/Vol] 1.4 mmol/L Normal 0.5-2.2 [facility] Comment on above: Order Comment: No: D o not add to previous draw Performed By: #### 3 1414 #### [facility] [address] [place] [address], [facility] TROPONIN-Ion 04-06-2018 Troponin I.cardiac [Mass/Vol] 0.23 ng/mL Critically high 0.00-0.04 [facility] Comment on above: Order Comment: No: D [...] AN M.I. Performed By: #### 0 0071, 93557, 50323, 44724, 03887, 94007 #### [facility] [address] [place] [address], [facility] CRPon 11-05-2017 CRP mass conc 4.0 mg/dL High <=1.9 [facility] Comment on above: Performed By: #### 2 [id number] ####[facility] [id number] [place] [address] Vital Signs Date Time Vital Sign Value Performing Clinician Facility 01-25-2024 08:54-0500 Body height 172.7 cm Emilie Meza [employer] Work Phone: [facility] 01-25-2024 08:54-0500 Body temperature 97 [degF] Emilie Meza [employer] Work Phone: [facility] 01-25-2024 08:54-0500 Diastolic blood pressure 82 mm[Hg] Emilie Meza [employer] Work Phone: [facility] 01-25-2024 08:54-0500 Heart rate 76 /min Emilie Meza [employer] Work Phone: [facility] 01-25-2024 08:54-0500 Respiratory rate 18 /min Emilie Meza [employer] Work Phone: [facility] 01-25-2024 08:54-0500 SaO2% (BldA) [Mass fraction] 94 % Emilie Meza [employer] Work Phone: [facility] 01-25-2024 08:54-0500 Systolic blood pressure 118 mm[Hg] Emilie Meza HAIRCUTTER Work Phone: [facility] 01-10-2024 11:08-0400 Body temperature 97 [degF] Emilie Meza HA[employer]TER Work Phone: [facility] 01-10-2024 11:08-0400 Diastolic blood pressure 68 mm[Hg] Emilie Meza HAIRCUTTER Work Phone: [facility] 01-10-2024 11:08-0400 Heart rate 85 /min Emilie Meza HA[employer]TER Work Phone: [facility] 01-10-2024 11:08-0400 SaO2% (BldA) [Mass fraction] 94 % Emilie Meza HAIRCUTTER Work Phone: [facility] 01-10-2024 11:08-0400 Systolic blood pressure 140 mm[Hg] Emilie Willsonzpatrick HAIRCUTTER Work Phone: [facility] 12-28-2023 08:00-0400 Body temperature 98.4 [degF] DO Ren Frings Work Phone: [facility] 12-28-2023 08:00-0400 Diastolic blood pressure 80 mm[Hg] DO Ren Frings Work Phone: [facility] 12-28-2023 08:00-0400 Heart rate 80 /min DO Ren Frings Work Phone: [facility] 12-28-2023 08:00-0400 Respiratory rate 18 /min DO Ren Frings Work Phone: [facility] 12-28-2023 08:00-0400 SaO2% (BldA) [Mass fraction] 96 % DO Ern Frings Work Phone: [facility] 12-28-2023 08:00-0400 Systolic blood pressure 155 mm[Hg] DO Ren Frings Work Phone: [facility] 12-28-2023 06:00-0400 Body weight 132.9 kg DO Ren Frings Work Phone: [facility] 12-25-2023 11:58-0400 Body height 172.72 cm DO Ren Frings Work Phone: [facility] 07-01-2022 09:34-0400 Body height 172.72 cm Shaikh Marion Work Phone: [facility] DO Work Phone: 07-01-2022 09:34-0400 Body mass index (BMI) [Ratio] Patient Reason Not Done Shaikh Marion Work Phone: [facility] DO Work Phone: 07-01-2022 09:34-0400 Diastolic blood pressure 66 mm[Hg] Shaikh Marion Work Phone: [facility] DO Work Phone: 07-01-2022 09:34-0400 Heart rate 68 /min Shaikh Marion Work Phone: [facility] DO Work Phone: 07-01-2022 09:34-0400 Systolic blood pressure 106 mm[Hg] Shaikh Marion Work Phone: [facility] DO Work Phone: 07-01-2022 09:34-0400 16 1 Shaikh Marion Work Phone: [facility] DO Work Phone: Comment on above: PHQ-9 TS 06-23-2022 11:26-0400 Body temperature 97.4 [degF] MD Shaikh Schultz Work Phone: [facility] 06-23-2022 11:26-0400 Diastolic blood pressure 69 mm[Hg] MD Shaikh Schultz Work Phone: [facility] 06-23-2022 11:26-0400 Heart rate 100 /min MD Shaikh Schultz Work Phone: [facility] 06-23-2022 11:26-0400 Respiratory rate 18 /min MD Shaikh Schultz Work Phone: [facility] 06-23-2022 11:26-0400 SaO2% (BldA) [Mass fraction] 96 % MD Shaikh Schultz Work Phone: [facility] 06-23-2022 11:26-0400 Systolic blood pressure 123 mm[Hg] MD Shaikh Schultz Work Phone: [facility] 06-23-2022 08:03-0400 Inhaled oxygen flow rate 1 L/min MD Shaikh Schultz Work Phone: [facility] 06-23-2022 06:00-0400 Body weight 136.4 kg MD Shaikh Schultz Work Phone: [facility] 06-22-2022 14:39-0400 Body height 172.72 cm MD Shaikh Schultz Work Phone: [facility] 06-22-2022 00:00-0400 45 1 Shaikh Marion Work Phone: [facility] DO Work Phone: Comment on above: [id number] Encounters Encounter Date Encounter Type Care Provider Facility Start: 04-05-2024 End: 04-05-2024 Refill Emilie Meza HAIRCUTTER [facility] Comment on above: Type 2 diabetes mary itus without complications (CMS/HCC) Start: 02-28-2024 End: 02-28-2024 Refill Emilie Albertsk HAIRCUTTER Work Phone: [facility] Comment on above: 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; Type 2 diabetes mellitus without complications (CMS/HCC) 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) Hypothyroidism, unsp ecified (CMS/HCC); Unspecified atrial fibrillation (CMS/HCC) Start: 01-25-2024 End: 01-25-2024 Bamboo flowsheet Emilie Albertsk HAIRCUTTER Work Phone: [facility] Start: 01-25-2024 End: 01-25-2024 Bamboo flowsheet Emilie Albertsk HAIRCUTTER Work Phone: [facility] Start: 01-25-2024 End: 01-25-2024 Office outpatient visit 15 minutes Emilie Meza HAIRCUTTER Work Phone: [facility] Comment on above: 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, without long-term current use of insulin (HCC) ([facility]/HCC) (Primary Dx); Essential hypertension (CMS/HCC); Acquired hypothyroidism ([facility]); Need for influenza vaccination Start: 01-25-2024 End: 01-25-2024 ambulatory EMILIE MEZA Not Available Start: 01-10-2024 End: 01-10-2024 Transitional care manage srvc 14 day discharge Emilie Meza HAIRCUTTER Work Phone: [facility] Comment on above: Longstanding persist ent atrial fibrillation ([facility]/HCC) (Primary Dx) Start: 01-10-2024 End: 01-10-2024 ambulatory EMILIE MEZA Not Available Start: 12-28-2023 End: 12-28-2023 Refill [facility]il[facility] HAIRCUTTER [facility] Comment on above: Unspecified atrial f ibrillation ([facility]/HCC) Start: 12-25-2023 End: 12-28-2023 Evaluation and management of inpatient Nelson Orourke Facility:[facility] Start: 10-25-2023 End: 10-25-2023 ambulatory EMILIE MEZA Not Available Start: 10-19-2023 End: 10-19-2023 ambulatory [facility] Ambulatory Start: 04-12-2023 Patient encounter procedure Emilie Meza HAIRCUTTER Work Phone: [facility] Start: 04-12-2023 End: 04-12-2023 ambulatory SHAIKH MARION Not Available Start: 09-30-[address] Joseluis Casey Facility: Start: 09-11-2022 Rx Renewal Shaikh Marion Work Phone: [facility] DO Work Phone: Start: 07-27-2022 ambulatory JOSELUIS CASEY Facilit y:[id number] Start: 07-23-2022 ambulatory JOSELUIS CASEY Facilit y:[id number] Start: 07-01-2022 Office outpatient vi sit 40 minutes Shaikh Marion Work Phone: [facility] DO Work Phone: Start: 07-01-[address] Shaikh Schultz Facil ity:[id number] Start: 06-29-2022 End: 06-29-2022 ambulatory MD Shaikh Schultz Work Phone: [facility] Work Phone: Start: 06-29-2022 End: 06-29-2022 Departed Referred MD Shaikh Schultz Work Phone: [facility] Work Phone: Start: 06-23-[address] Joseluis Casey Facility:[id number] Start: 06-22-[address] Joseluis Casey Fac ility:[id number] Start: 06-22-2022 End: 06-23-2022 Evaluation and management of inpatient MD Shaikh Schultz Work Phone: [facility] [place] [facility] Work Phone: Start: 06-22-[address] Joseluis Casey Facility:[id number] Start: 06-21-2022 End: 06-22-[address] JAYY Hinojosa Facility:H1 Start: 12-29-2021 End: 12-30-2021 ambulatory SHAIKH Guillermo SCHULTZ Facility:H1 Start: 09-29-2021 End: 09-30-2021 ambulatory SHAIKH Guillermo SCHULTZ Facility:H1 Start: 06-30-2021 End: 07-01-2021 ambulatory SHAIKH Guillermo SCHULTZ Facility:H1 Start: 04-06-2018 End: 04-10-2018 Evaluation and management of inpatient DAVE MACDONALD Facility:[facility] Start: 11-05-2017 End: 11-06-2017 Patient encounter Darrian Benton Facility:[facility] Procedures Date Procedure Procedure Detail Performing Clinician Start: 12-26-2023 Duplex scan of lower limb veins DO Ren Mohan Work Phone: Start: 12-26-2023 Plain chest X-ray DO Lou Mohan Work Phone: Start: 12-25-2023 Respiratory Panel (PCR) DO Ren Mohan Work Phone: Start: 02-09-2022 History of coronary artery bypass grafting History of coronary artery bypass graft Emilie Meza NP Work Phone: Start: 03-22-2019 Total colonoscopy Shaik guillermo Schultz Work Phone: Start: 04-08-2018 DILATION OF 1 COR AR T WITH 3 DRUG-ELUT, PERC APPROACH JANE RANDOLPH Start: 04-08-2018 FLUOROSCOPY OF L INT MAMM GRAFT USING OTH CONTRAST JANE RANDOLPH Start: 04-08-2018 FLUOROSCOPY OF MULT COR A GRAFT USING OTH CONTRAST JANE RANDOLPH Start: 04-08-2018 FLUOROSCOPY OF MULTI PLE CORONARY ARTERIES USING OTH CONTRAST JANE Darnell MOALEJARBOLI Appendectomy Shaikh Marion Work Phone: History of coronary artery bypass grafting History of coronary artery bypass graft Shaikh Marion Work Phone: History of placement of stent for coronary artery disease History of heart artery stent MD Shaikh Schultz Work Phone: Insertion of inferio r vena caval filter Shaikh Marion Work Phone: Plan of Treatment Date Care Activity Detail Author Start: 10-03-2025 Glaucoma screening Diabetes: R etinopathy Screening [facility] Start: 05-01-2024 End: 05-01-2024 Patient encounter procedure 05/01/2024 9:00 AM EST Office Visit [facility] [address] [place] [place] [id number] Emilie Meza, YOAN [address] [facility] [id number] [facility] Start: 04-12-2024 Medicare Annual Wellness (AWV) Medicare Annual Wellness (AWV) [facility] Start: 04-12-2024 Pneumococcal Vaccine : 65+ Years (2 of 2 - PCV) Pneumococcal Vaccine: 65+ Years (2 of 2 - PCV) [facility] Comment on above: Postponed from 03/22 (Patient Refused) Start: 02-14-2024 Influenza vaccination Influenza Vacc ine (#1) [facility] Comment on above: Postponed from 11/20 (Patient Ill Today) Start: 01-25-2024 End: 01-24-2025 CBC W Auto Differential panel - Blood CBC and differential Lab Routine Type 2 diabetes mellitus with stage 3a chronic kidney disease, without long-term current use of insulin (HCC) (CMS/HCC) Essential hypertension (CMS/HCC) Expected: 01/25/2024 (Approximate), Expires: 01/24/2025 [facility] Comment on above: Expected: 01/25/2024 (Approximate), Expires: 01/24/2025 Start: 01-25-2024 End: 01-24-2025 Comprehensive metabolic 2000 panel - Serum or Plasma Comprehensive metabolic panel Lab Routine Type 2 diabetes mellitus with stage 3a chronic kidney disease, without long-term current use of insulin (HCC) (CMS/HCC) Essential hypertension (CMS/HCC) Expected: 01/25/2024 (Approximate), Expires: 01/24/2025 [facility] Comment on above: Expected: 01/25/2024 (Approximate), Expires: 01/24/2025 Start: 01-25-2024 End: 01-24-2025 Hemoglobin A1c/Hemoglobin.total in Blood Hemoglobin A1c Lab Routine Type 2 diabetes mellitus with stage 3a chronic kidney disease, without long-term current use of insulin (HCC) (CMS/HCC) Essential hypertension (CMS/HCC) Expected: 01/25/2024 (Approximate), Expires: 01/24/2025 [facility] Comment on above: Expected: 01/25/2024 (Approximate), Expires: 01/24/2025 Start: 01-25-2024 End: 01-24-2025 TSH W/REFLEX TO FT4 TSH W/REFLEX TO FT4 Lab Routine Acquired hypothyroidism (CMS/HCC) Expected: 01/25/2024 (Approximate), Expires: 01/24/2025 [facility] Comment on above: Expected: 01/25/2024 (Approximate), Expires: 01/24/2025 Start: 01-25-2024 End: 01-25-2024 Patient encounter procedure [facility] Comment on above: Arrived Start: 01-10-2024 End: 01-10-2024 Patient encounter procedure 01/10/2024 11:00 AM EDT Office Visit [facility] [address] [place] [address] Emilie Meza, YOAN [address] [place] [address] [facility] Start: 12-28-2023 [facility] Start: 12-25-2023 Blood culture for bacteria, including anaerobic screen Blood Culture [facility] Start: 12-25-2023 Hospital admission [facility] Start: 11-21-2023 Influenza vaccination Influenza Vacc ine (#1) [facility] Start: 04-20-2023 Hemoglobin A1c measurement Diabetes: Hemoglobin A1C [facility] Start: 09-30-2022 FUV, Provider: Joseluis Casey, Status: Pen, Time: 9:20 AM FUV, Provider: Joseluis Casey, Status: Pen, Time: 9:20 AM [facility] Work Phone: Start: 07-27-2022 REST ONLY, Provider: AQUILINO PAYNEI NUCLEAR ,[id number], Status: Pen, Time: 1:00 PM REST ONLY, Provider: AQUILINO HHVI NUCLEAR ,[id number], Status: Pen, Time: 1:00 PM [facility] Work Phone: Start: 07-23-2022 STRESSNUC2, Provider : AQUILINO HHVI NUCLEAR ,[id number], Status: Pen, Time: 1:00 PM STRESSNUC2, Provider: AQUILINO PAYNEI NUCLEAR ,[id number], Status: Pen, Time: 1:00 PM [facility] 250 DO Work Phone: Start: 06-23-2022 [facility] Start: 06-22-2022 Hospital admission [facility] Start: 1954 Urine screening for protein Diabetes: Urine Protein Screening [facility] Blood chemistry [facility] Microalbumin/Creatin ine panel in random Urine Microalbumin / creatinine urine ratio Lab Routine Type 2 diabetes mellitus with stage 3a chronic kidney disease, without long-term current use of insulin (HCC) ([facility]/HCC) Essential hypertension ([facility]) Ordered: 01/25/2024 [facility] Work Phone: Comment on above: Ordered: 01/25/2024 Patient Education [facility] Work Phone: Patient referral [facility] Work Phone: [facility] Immunizations Immunization Date Immunization Notes Care Provider [facility] 01-25-2024 Influenza, injectabl e, Madin Sarah Ann Canine Kidney, preservative free, quadrivalent Emilie Meza HAIRCUTTER Work Phone: [facility] 01-21-2021 Moderna COVID-19 Vaccine 100 MCG/0.5ML Intramuscular Suspension Shaikh aMrion Work Phone: [facility] 250 DO Work Phone: 12-31-2020 Seasonal trivalent influenza vaccine, adjuvanted, preservative free Shaikh Marion Work Phone: [facility] 250 DO Work Phone: 12-31-2020 influenza virus vaccine, unspecified formulation Emilie Meza HAIRCUTTER Work Phone: [facility] 05-21-2020 Moderna COVID-19 Vaccine 100 MCG/0.5ML Intramuscular Suspension [employer] [facility] Work Phone: 04-23-2020 Moderna COVID-19 Vaccine 100 MCG/0.5ML Intramuscular Suspension [employer] Work Phone: [facility] Work Phone: 12-28-2019 Seasonal trivalent influenza vaccine, adjuvanted, preservative free [employer] Work Phone: [facility] Work Phone: 01-18-2019 Seasonal trivalent influenza vaccine, adjuvanted, preservative free [employer] [facility] Work Phone: 02-01-2018 Seasonal trivalent influenza vaccine, adjuvanted, preservative free [employer] Work Phone: [facility] Work Phone: 01-07-2017 Seasonal trivalent influenza vaccine, adjuvanted, preservative free [employer] [facility] Work Phone: 02-26-2014 influenza, injectabl e, quadrivalent, contains preservative [employer] Work Phone: [facility] Work Phone: 12-26-2012 influenza, seasonal, injectable [employer] Work Phone: [facility] DO Work Phone: 03-22-2002 pneumococcal polysaccharide vaccine, 23 valent [employer] Work Phone: [facility] Work Phone: Comment on above: Series: Payers Date Payer Category Payer Self-pay [id number] 2022 Private Health Insurance [id number] 2002 Medicare [id number] 1959 Medicare [id number] 1959 Unknown [id number] 1937 Unknown [id number] 2.16.8 [id number] 1937 Unknown [id number] 2.16.84 [id number] 1937 Unknown [id number] 2.16.84 [id number] 1937 Unknown [id number] 2.16.84 [id number] 1937 Unknown [id number] 2.16.84 [id number] 1937 Unknown [id number] 2.16.8 [id number] 1937 Unknown [id number] 2.16.8 [id number] 1937 Unknown [id number] 2.16. [id number] 1937 Unknown [id number] 2.16. [id number] 1937 Unknown [id number] 2.16. [id number] 1937 Unknown [id number] 2.16. [id number] 1937 Unknown [id number] 2.16. [id number] 1937 Unknown [id number] 2.16.8 [id number] 1937 Unknown [id number] 2.16.84 [id number] 1937 Unknown [id number] 2.16.84 0.1.001723.3.579.2.1259 1937 Unknown [id number] 2.16.84 [id number] 1937 Unknown [id number] 2.16.84 [id number] Medicare [id number] Unknown Unknown [id number] 2.16.8 [id number] Social History Date Type Detail Facility Start: 06-22-2022 End: 12-25-2023 Tobacco smoking status CTIS Ex-smoker (finding) [facility] Start: 1935 Sex Assigned At Female F [facility] Start: 10-25-2023 End: 01-25-2024 Caffeine use Caffeine use [place] [address] DO Work Phone: Comment on above: 2.5 cups coffee in m orning; Start: 10-25-2023 Tobacco smoking status CTIS Never smoked tobacco [facility] Start: 10-25-2023 Tobacco use and exposure Smokeless tobacco non-user [facility] Start: 10-25-2023 End: 01-25-2024 Alcoholic beverage intake Lifetime non-drinker (finding) [facility] Start: 10-25-2023 End: 01-25-2024 Tobacco use panel [facility] Start: 1935 Sex assigned at Not on file [facility] NEGATED: Highlighted rowStart: NINF History of tobacco use Passive smoker [facility] Goals Date Patient Goal Desired Activity /State Functional Status Date Assessment Result Facility 12-28-2023 Functional status Patient at [facility] Work Phone: 06-23-2022 Functional status Patient at [facility] Work Phone: Mental Status Date Assessment Result Facility 12-28-2023 Cognitive function Cognitive Sta tus Patient at Baseline [facility] Work Phone: 06-23-2022 Cognitive function Cognitive Sta tus Patient at Baseline [facility] Work Phone: Clinical Notes 06-22-2022 to 01-25-2024 Emilie Meza NP - 01/25/2024 11:07 AM Nuno Meza, YOAN - 01/25/2024 11:06 AM Nuno Meza, YOAN - 01/25/2024 11:06 AM Nuno Meza, YOAN - 01/25/2024 11:06 AM EST Note Date & Type Note Facility 01-25-2024 History of Presen t illness Narrative Associated Problem(s): Essential hypertension ([facility]) Currently taking Metoprolol Succincate 100mg Checks BP at home; Averages are 120's/70's Denies orthostatic changes, dizziness, cough, shortness of breath, swelling in extremities. Continue current regimen. Given BP log, advised pt to record BP and bring log back with them to next visit. Associated Problem(s): Type 2 diabetes mellitus with stage 3a chronic kidney disease, without long-term current use of insulin (HCC) (CMS/HCC) Most recent labs: hemoglobin A1C Average FSBS range from BGs range between 117 and 137 Checks BG levels using: Finger sticks Accucheck Glucometer No episode of hypoglycemia No medication adverse effects reported by the patient. Patient educated on lifestyle modifications, dietary restrictions, signs and symptoms of hypoglycemia/hyperglycemia and importance of eating regular consistent meals. Stressed upon importance of checking blood glucose at home and bring blood glucose log to appointments. All questions, concerns answered and addressed. Encouraged to call office if persistent hypoglycemia/hyperglycemia on home glucose monitoring noted. Associated Problem(s): Acquired hypothyroidism (CMS/HCC) On levothyroxine. TSH needs checked. Labs ordered today. Associated Problem(s): Stage 3a chronic kidney disease (HCC) (CMS/HCC) Most recent Creatinine: 1.28 eGFR 40 Continue to monitor closely Avoid nephrotoxic agents. Images from the original note were not included. Subjective Patient ID: Mohan Espinoza is a 88 y.o. female who presents for Hypertension. HPI Specailists: Cardiology- Dr. Casey Ophthalmology- Dr. Guadalupe/ HTN: Currently taking Metoprolol Succincate 100mg Checks BP at home; Averages are 120's/70's Denies orthostatic changes, dizziness, cough, shortness of breath, swelling in extremities. Continue current regimen. Given BP log, advised pt to record BP and bring log back with them to next visit. DMII: Most recent labs: hemoglobin A1C Average FSBS range from BGs range between 117 and 137 Checks BG levels using: Finger sticks Accucheck Glucometer No episode of hypoglycemia No medication adverse effects reported by the patient. Patient educated on lifestyle modifications, dietary restrictions, signs and symptoms of hypoglycemia/hyperglycemia and importance of eating regular consistent meals. Stressed upon importance of checking blood glucose at home and bring blood glucose log to appointments. All questions, concerns answered and addressed. Encouraged to call office if persistent hypoglycemia/hyperglycemia on home glucose monitoring noted. Education: Check blood sugars daily, notify if <70 or >200. Take medications (pills or insulin) as directed. Monitor for s/s of hypoglycemia (sweaty, dizziness, nausea, vomiting, or shakiness). Watch for increase in thirst, urination, or appetite. Inspect feet frequently monitoring for open wounds , and also recommend yearly eye exam. Pt should attempt to remain as physically active as chronic conditions allow, as well as trying to follow a diet low in carbohydrates, and simple sugars. Hypothyroidism: On levothyroxine. TSH needs checked. Labs ordered today. CKDIII: Most recent Creatinine: 1.28 eGFR 40 Continue to monitor closely Avoid nephrotoxic agents. Review of Systems Constitutional: Positive for fatigue. Negative for activity change, appetite change, chills, diaphoresis, fever and unexpected weight change. HENT: Negative for congestion, ear pain, rhinorrhea, sinus pressure, sinus pain, sneezing, sore throat, trouble swallowing and voice change. Eyes: Negative for visual disturbance. Respiratory: Negative for cough, chest tightness, shortness of breath and wheezing. Cardiovascular: Negative for chest pain, palpitations and leg swelling. Gastrointestinal: Negative for abdominal distention, abdominal pain, blood in stool, constipation, diarrhea and vomiting. Genitourinary: Negative for decreased urine volume, dysuria, flank pain, frequency, hematuria and urgency. Musculoskeletal: Negative for arthralgias, gait problem, joint swelling and myalgias. Skin: Negative for rash. Neurological: Negative for dizziness, tremors, syncope, weakness, light-headedness and headaches. Psychiatric/Behavioral: Negative for decreased concentration and suicidal ideas. The patient is not nervous/anxious. Hematological: Does not bruise/bleed easily. Endocrine: Negative for cold intolerance, heat intolerance, polydipsia, polyphagia and polyuria. Objective Physical Exam Vitals reviewed. Constitutional: Appearance: Normal appearance. HENT: Head: Normocephalic and atraumatic. Right Ear: Tympanic membrane normal. Left Ear: Tympanic membrane normal. Nose: Nose normal. Mouth/Throat: Mouth: Mucous membranes are moist. Pharynx: Oropharynx is clear. Eyes: Pupils: Pupils are equal, round, and reactive to light. Cardiovascular: Rate and Rhythm: Normal rate. Rhythm irregular. Pulses: Normal pulses. Heart sounds: Normal heart sounds. Pulmonary: Effort: Pulmonary effort is normal. Breath sounds: Normal breath sounds. Abdominal: General: Abdomen is flat. Bowel sounds are normal. Palpations: Abdomen is soft. Musculoskeletal: General: Normal range of motion. Cervical back: Normal range of motion. Skin: General: Skin is warm and dry. Capillary Refill: Capillary refill takes less than 2 seconds. Neurological: General: No focal deficit present. Mental Status: She is alert and oriented to person, place, and time. Psychiatric: Mood and Affect: Mood normal. Behavior: Behavior normal. Assessment/Plan Problem List Items Addressed This Visit Acquired hypothyroidism (CMS/HCC) On levothyroxine. TSH needs checked. Labs ordered today. Relevant Orders TSH W/REFLEX TO FT4 Essential hypertension (CMS/HCC) Currently taking Metoprolol Succincate 100mg Checks BP at home; Averages are 120's/70's Denies orthostatic changes, dizziness, cough, shortness of breath, swelling in extremities. Continue current regimen. Given BP log, advised pt to record BP and bring log back with them to next visit. Relevant Orders Microalbumin / creatinine urine ratio Hemoglobin A1c Comprehensive metabolic panel CBC and differential Type 2 diabetes mellitus with stage 3a chronic kidney disease, without long-term current use of insulin (HCC) (CMS/[facility]) - Primary Most recent labs: hemoglobin A1C Average FSBS range from BGs range between 117 and 137 Checks BG levels using: Finger sticks Accucheck Glucometer No episode of hypoglycemia No medication adverse effects reported by the patient. Patient educated on lifestyle modifications, dietary restrictions, signs and symptoms of hypoglycemia/hyperglycemia and importance of eating regular consistent meals. Stressed upon importance of checking blood glucose at home and bring blood glucose log to appointments. All questions, concerns answered and addressed. Encouraged to call office if persistent hypoglycemia/hyperglycemia on home glucose monitoring noted. Relevant Orders Microalbumin / creatinine urine ratio Hemoglobin A1c Comprehensive metabolic panel CBC and differential Other Visit Diagnoses Need for influenza vaccination documented in this encounter [facility] 01-25-2024 Instructions Emilie Meza NP - 01/25/2024 9:00 AM EST FASTING labs ordered. Nothing to eat or drink for 12 hours prior to blood draw. Water and black coffee ok. Call if you need anything! documented in this encounter [facility] 01-10-2024 History of Presen t illness Narrative Associated Problem(s): Atrial fibrillation (CMS/HCC) Currently taking Eliquis. Was admitted to [facility] for NSTEMI 12/24 Echo ordered EF was 60%-65% [facility] discharged, believed troponin elevations were related to brief episode of Afib RVR No medication changes States she feels better presently, but is still fatigued. Follows with Dr. Monge Cardiology; Has not made an appointment to follow up with Cards yet. Advised pt to do so. Images from the original note were not included. Subjective Patient ID: Mohan Espinoza is a 88 y.o. female who presents for Hospital Follow-up. HPI Specialists: Dr. Saleem Charles Hospital Follow-Up: Was admitted to [facility] for NSTEMI 12/24-12/27 Echo ordered EF was 60%-65% [facility] discharged, believed troponin elevations were related to brief episode of Afib RVR No medicaiton changes States she feels better presently, but is still fatigued. Follows with Dr. Monge Cardiology; Has not made an appointment to follow up with Cards yet. Advised pt to do so. Review of Systems Constitutional: Positive for fatigue. Negative for activity change, appetite change, chills, diaphoresis, fever and unexpected weight change. HENT: Negative for congestion, ear pain, rhinorrhea, sinus pressure, sinus pain, sneezing, sore throat, trouble swallowing and voice change. Eyes: Negative for visual disturbance. Respiratory: Negative for cough, chest tightness, shortness of breath and wheezing. Cardiovascular: Negative for chest pain, palpitations and leg swelling. Gastrointestinal: Negative for abdominal distention, abdominal pain, blood in stool, constipation, diarrhea and vomiting. Genitourinary: Negative for decreased urine volume, dysuria, flank pain, frequency, hematuria and urgency. Musculoskeletal: Negative for arthralgias, gait problem, joint swelling and myalgias. Skin: Negative for rash. Neurological: Negative for dizziness, tremors, syncope, weakness, light-headedness and headaches. Psychiatric/Behavioral: Negative for decreased concentration and suicidal ideas. The patient is not nervous/anxious. Hematological: Does not bruise/bleed easily. Endocrine: Negative for cold intolerance, heat intolerance, polydipsia, polyphagia and polyuria. Objective Physical Exam Vitals reviewed. Constitutional: Appearance: Normal appearance. HENT: Head: Normocephalic and atraumatic. Right Ear: Tympanic membrane normal. Left Ear: Tympanic membrane normal. Nose: Nose normal. Mouth/Throat: Mouth: Mucous membranes are moist. Pharynx: Oropharynx is clear. Eyes: Pupils: Pupils are equal, round, and reactive to light. Cardiovascular: Rate and Rhythm: Normal rate and regular rhythm. Pulses: Normal pulses. Heart sounds: Normal heart sounds. Pulmonary: Effort: Pulmonary effort is normal. Breath sounds: Normal breath sounds. Abdominal: General: Abdomen is flat. Bowel sounds are normal. Palpations: Abdomen is soft. Musculoskeletal: General: Normal range of motion. Cervical back: Normal range of motion. Skin: General: Skin is warm and dry. Capillary Refill: Capillary refill takes less than 2 seconds. Neurological: General: No focal deficit present. Mental Status: She is alert and oriented to person, place, and time. Psychiatric: Mood and Affect: Mood normal. Behavior: Behavior normal. Assessment/Plan Problem List Items Addressed This Visit Atrial fibrillation (CMS/HCC) - Primary Currently taking Eliquis. Was admitted to [facility] for NSTEMI 12/24 Echo ordered EF was 60%-65% [facility] discharged, believed troponin elevations were related to brief episode of Afib RVR No medication changes States she feels better presently, but is still fatigued. Follows with Dr. Casey- Cardiology; Has not made an appointment to follow up with Cards yet. Advised pt to do so. documented in this encounter [facility] 01-10-2024 Instructions Emilie Meza NP - 01/10/2024 11:00 AM EDT Follow up with Cardiology- Call office to schedule appointment Joseluis Vuong DO [address] [address], [address] [id number] documented in this encounter [facility] 12-28-2023 Progress note Note Date/Time December 27, 2023 10:24pm [facility] [address] [place] [address] Hospitalist Progress Note Signed Patient: Mohan Espinoza MR#: [id number] : 1935 Acct:[id number] Age/Sex: 88 / F Adm Date: 4 Loc: 3T Room: [address] [place] [address] Type: ADM IN Attending Dr: Nelson Orourke DO Copies to: ~ Date of Service: 12/27/2023 Subjective Subjective Narrative: Seen and evaluated, patient endorses feeling much better, she denies any furtherissues with chest pain. type 2 myocardial infarction Rule out NSTEMI ASA,beta jazmine and statin Echo shows EF of 60 to 65% with moderate hypokinesis of the anterolateral wall, very similar and unchanged from her prior study may need outpatient elective stress test Rule out atypical PNA Continue with azithromycin/ceftriaxone Hypomagnesemia Replace as needed MagOx LE edema She reported more pain in her left leg , D-dimer (BH) noted to be elevated lower extremity ultrasound preliminary report was negative for dvt HTN She said she has been having lightheadedness recently Her blood pressure was trending up today, plan to resume her home antihypertensives upon discharge DM blood sugars were reviewed A1c 7.8 carbohydrate controlled diet. sliding scale insulin and accuchecks. hold oral antidiabetic medication/metformin. basal insulin: 15 units hypoglycemia protocol. Exam Physical Exam Vital Signs: Temp Pulse Resp BP Pulse Ox O2 Del Method 98.0 F 67 18 134/87 97 Room Air 12/27/23 20:13 12/27/23 20:13 12/27/23 20:13 12/27/23 20:13 12/27/23 20:13 12/27/23 20:13 Narrative: General: Awake alert, no acute distress HEENT: head atraumatic, normocephalic, moist mucous membranes Neck: supple no masses, no lymphadenopathy CVS: regular rate and rhythm, no murmurs or gallops Respiratory: clear to auscultation bilaterally, no wheezing or crackles, symmetric expansion GI: soft, nondistended, nontender, positive bowel sounds with no organomegaly Extremity: moves all extremities, no restrictions of movements, no calf tenderness, no edema Neuro: AOx3, CN II-VII intact. Moves all extremities in all planes of motion. Skin: dry, intact no rashes or lesions Objective Lab Results 12/27/23 06:02 12/27/23 06:02 Microbiology Results Microbiology 12/25/23 06:04 Blood - Left Antecubital Blood Culture - Preliminary No Growth 2 Days 12/25/23 06:04 Blood - Right Hand Blood Culture - Preliminary No Growth 2 Days Meds Allergies and Active Meds Allergies albuterol Allergy (Verified 06/22/22 03:36) Unknown Reaction Active Meds: Active Medications Generic Name Dose Route Start Last Admin Trade Name Freq PRN Reason Stop Dose Admin Allopurinol 300 mg 12/25/23 09:00 12/27/23 08:49 Allopurinol 300 Mg Tablet PO 12/24/24 08:59 300 mg DAILY PERLA Administration Aspirin 81 mg 12/26/23 09:00 12/27/23 08:49 Aspirin 81 Mg Tablet.Dr PO 12/25/24 08:59 81 mg DAILY PERLA Administration Atorvastatin Calcium 40 mg 12/25/23 21:00 12/27/23 21:08 Atorvastatin 40 Mg Tablet PO 12/24/24 20:59 Not Given QPM PERLA Dextrose 0 gm 12/25/23 18:11 Dextrose 50% In Water 25 Gm/50 Ml Syringe IV-PUSH 12/24/24 18:10 PRN PRN Hypoglycemia Furosemide 40 mg 12/26/23 09:00 12/27/23 08:50 Furosemide 40 Mg Tablet PO 12/25/24 08:59 40 mg DAILY PERLA Administration Glucose 0 gm 12/25/23 18:11 Dextrose 40% Gel 15 Gm Tube PO 12/24/24 18:10 PRN PRN Hypoglycemia Azithromycin 500 mg in 250 mls @ 250 mls/hr 12/25/23 09:00 12/27/23 08:50 Zithromax IV 250 mls/hr Q24H PERLA Administration Magnesium Sulfate 2 gm in 50 mls @ 25 mls/hr 12/26/23 05:44 Magnesium Sulf 2gm-*Swfi* IV 12/25/24 05:43 DAILY PRN Magnesium < 1.9 Insulin Aspart 0 units 10/05/24 22:00 12/27/23 21:05 Insulin Aspart 300 Units/3 Ml Insuln.Pen SUBCUT 12/24/24 21:59 2 units TID.WM.HS PERLA Administration Protocol Insulin Glargine 15 units 12/25/23 22:00 12/27/23 21:05 Insulin Glargine 300 Units/3 Ml Insuln.Pen SUBCUT 12/24/24 21:59 15 units QHS PERLA Administration Levothyroxine Sodium 200 mcg 12/25/23 06:30 12/27/23 06:43 Levothyroxine 200 Mcg Tablet PO 12/24/24 06:29 200 mcg DAILY@0630 PERLA Administration Magnesium Oxide 400 mg 12/26/23 09:00 12/27/23 08:49 Magnesium Oxide 400 Mg Tablet PO 12/25/24 08:59 400 mg DAILY PERLA Administration Metoprolol Succinate 150 mg 12/25/23 06:00 12/27/23 08:49 Metoprolol Succinate 50 Mg Tab.Er.24h PO 12/24/24 05:59 150 mg DAILY PERLA Administration Oxycodone/Acetaminophen 1 tab 12/26/23 10:14 Oxycodone/Acetaminophen 5-325 Mg Tablet PO Q6H PRN Pain Rivaroxaban 15 mg 12/25/23 17:00 12/27/23 17:15 Rivaroxaban 15 Mg Tablet PO 12/24/24 16:59 15 mg DAILY@17 PERLA Administration A&P - Hospitalist Assessment/Plan (1) Type 2 AR (myocardial infarction): Plan Documented By: Nelson Orourke DO 12/27/232221 Signed By: <Electronically signed by Nelson Orourke DO> 12/27/232223 [facility] Work Phone: 1(887) 598-377710-06-2024 Progress note Author Apryl Shirley [facility] December 26, 2023 5:24pm Note Date/Time December 26, 2023 3: 47pm [facility] [address] [place] [address] Hospitalist Progress Note Signed Patient: Mohan Espinoza MR#: [id number] : 1935 Acct:[id number] Age/Sex: 88 / F Adm Date: 4 Loc: 3T Room: [address] [place] [address] Type: ADM IN Attending Dr: Apryl Shirley MD Copies to: ~ Date of Service: 12/26/2023 Subjective Subjective Narrative: Assessment And Plan 88-year-old female with previously known history of atrial fibrillation, hypertension, CKD , diabetes and hyperlipidemia, Hypothyroidism She presented to [facility] () ER earlier this evening with initially reported shortness of breath type 2 myocardial infarction Rule out NSTEMI She denies any chest pain or worsening SOB during her stay HS-Troponin 50 ()> 200 () > 280 ([facility]) > 73 (today) LDL 115 EKG () shows afib RVR High Sensitivity Troponin was found incidentally to be mildly elevated above normal limits. There are no significant EKG changes. This is likely type 2 myocardial infarction secondary to ischaemia due to increased oxygen demand and/or decreased supply in the setting of tachycardia . Decreased Troponin renalclearance due to decreased renal function may play a role too. Last echo last year ASA,beta jazmine and statin Echo pending may need outpatient elective stress test Rule out atypical PNA No fever leukocytosis resolved She is complaining symptomatic complaints are of malaise and chills and nonproductive cough Afebrile in the hospital , leukocytosis Respiratory (Upper) Panel, PCR negative Blood culture negative azithromycin/ceftriaxone Hypomagnesemia Replace as needed MagOx LE edema She reported more pain in her left leg , D-dimer () noted to be elevated lower extremity ultrasound preliminary report was negative for dvt HTN She said she has been having lightheadedness recently BP low normal. hold on lisinopril DM blood sugars were reviewed A1c 7.8 carbohydrate controlled diet. sliding scale insulin and accuchecks. hold oral antidiabetic medication/metformin. basal insulin: 15 units hypoglycemia protocol. LINTERVAL HPI: As Above, Pt resting in bed. feeling better. Denies any chest pain, SOB Chronic diseases: Unless mentioned Above, Essential home medications have been continued. DVT Px: Addressed Disposition: home in 1-2 days Plan of care Discussed with: the medical team, the patient L Exam Physical Exam Vital Signs: Temp Pulse Resp BP Pulse Ox O2 Del Method 36.6 C 74 20 113/74 97 Room Air 12/26/23 12:00 12/26/23 12:00 12/26/23 12:00 12/26/23 12:00 12/26/23 12:00 12/26/23 12:00 Narrative: GEN: NAD, Cooperative NECK: ? JVD, supple LUNGS: diminished breathing sounds minimal rhonchi. CV: nl S1 S2; no M/R/G, ABD: Soft, ND, NT, + BS, ? HSM EXT: LE peripheral lymphedema, left leg tenderness above the ankle, chronic tenderness in her left knee, No calf muscle tenderness NEURO: ? FND. PSYCH: nl affect, AOx3 Objective Lab Results 12/26/23 06:23 12/26/23 06:23 Microbiology Results Microbiology 12/25/23 06:04 Blood - Left Antecubital Blood Culture - Preliminary No Growth 1 Day 12/25/23 06:04 Blood - Right Hand Blood Culture - Preliminary No Growth 1 Day Meds Allergies and Active Meds Allergies albuterol Allergy (Verified 06/22/22 03:36) Unknown Reaction Active Meds: Active Medications Generic Name Dose Route Start Last Admin Trade Name Carly PRN Reason Stop Dose Admin Allopurinol 300 mg 12/25/23 09:00 12/26/23 08:44 Allopurinol 300 Mg Tablet PO 12/24/24 08:59 300 mg DAILY PERLA Administration Aspirin 81 mg 12/26/23 09:00 12/26/23 08:45 Aspirin 81 Mg Tablet.Dr PO 12/25/24 08:59 81 mg DAILY PERLA Administration Atorvastatin Calcium 40 mg 12/25/23 21:00 12/25/23 22:10 Atorvastatin 40 Mg Tablet PO 12/24/24 20:59 Not Given QPM PERLA Dextrose 0 gm 12/25/23 18:11 Dextrose 50% In Water 25 Gm/50 Ml Syringe IV-PUSH 12/24/24 18:10 PRN PRN Hypoglycemia Furosemide 40 mg 12/26/23 09:00 12/26/23 08:45 Furosemide 40 Mg Tablet PO 12/25/24 08:59 40 mg DAILY PERLA Administration Glucose 0 gm 12/25/23 18:11 Dextrose 40% Gel 15 Gm Tube PO 12/24/24 18:10 PRN PRN Hypoglycemia Azithromycin 500 mg in 250 mls @ 250 mls/hr 12/25/23 09:00 12/26/23 08:45 Zithromax IV 250 mls/hr Q24H PERLA Administration Magnesium Sulfate 2 gm in 50 mls @ 25 mls/hr 12/26/23 05:44 Magnesium Sulf 2gm-*Swfi* IV 12/25/24 05:43 DAILY PRN Magnesium < 1.9 Insulin Aspart 0 units 12/25/23 22:00 12/26/23 12:58 Insulin Aspart 300 Units/3 Ml Insuln.Pen SUBCUT 12/24/24 21:59 3 units TID.WM.HS PERLA Administration Protocol Insulin Glargine 15 units 12/25/23 22:00 12/26/23 00:09 Insulin Glargine 300 Units/3 Ml Insuln.Pen SUBCUT 12/24/24 21:59 15 units QHS PERLA Administration Levothyroxine Sodium 200 mcg 12/25/23 06:30 12/26/23 05:31 Levothyroxine 200 Mcg Tablet PO 12/24/24 06:29 200 mcg DAILY@0630 PERLA Administration Magnesium Oxide 400 mg 12/26/23 09:00 12/26/23 08:45 Magnesium Oxide 400 Mg Tablet PO 12/25/24 08:59 400 mg DAILY PERLA Administration Metoprolol Succinate 150 mg 12/25/23 06:00 12/26/23 08:44 Metoprolol Succinate 50 Mg Tab.Er.24h PO 12/24/24 05:59 150 mg DAILY PERLA Administration Oxycodone/Acetaminophen 1 tab 12/26/23 10:14 Oxycodone/Acetaminophen 5-325 Mg Tablet PO Q6H PRN Pain Rivaroxaban 15 mg 12/25/23 17:00 12/25/23 17:21 Rivaroxaban 15 Mg Tablet PO 12/24/24 16:59 15 mg DAILY@17 PERLA Administration A&P - Hospitalist Assessment/Plan (1) Type 2 AR (myocardial infarction): Plan Documented By: Apryl Shirley MD 12/26/23 8050 Signed By: <Electronically signed by Apryl Shirley MD> 12/26/23 5798 [facility] Work Phone: 1(571) 877-867710-06-2024 Progress note Author Apryl Shirley [facility] December 25, 2023 11:11pm Note Date/Time December 25, 2023 6: 36pm [facility] [address] [place] [address] Hospitalist Progress Note Signed Patient: Mohan Espinoza MR#: [id number] : 1935 Acct:[id number] Age/Sex: 88 / F Adm Date: 4 Loc: 3T Room: [address] [place] [address] Type: ADM IN Attending Dr: Apryl Shirley MD Copies to: ~ Date of Service: 12/25/2023 Subjective Subjective Narrative: Assessment And Plan 88-year-old female with previously known history of atrial fibrillation, hypertension, CKD , diabetes and hyperlipidemia, Hypothyroidism She presented to [facility] () ER earlier this evening with initially reported shortness of breath type 2 myocardial infarction Rule out NSTEMI She denies any chest pain or worsening SOB HS-Troponin 50 ()> 200 () > 280 ([facility]) LDL 115 EKG () shows afib RVR High Sensitivity Troponin was found incidentally to be mildly elevated above normal limits. There are no significant EKG changes. This is likely type 2 myocardial infarction secondary to ischaemia due to increased oxygen demand and/or decreased supply in the setting of tachycardia . Decreased Troponin renalclearance due to decreased renal function may play a role too. Troponin will be repeated in am ASA,beta jazmine and statin Echo She is already on Xarelto adding Lovenox will increase risk of bleeding with no extra benefits Rule out atypical PNA She is complaining symptomatic complaints are of malaise and chills and nonproductive cough Afebrile in the hospital , leukocytosis Respiratory (Upper) Panel, PCR negative Blood culture negative Empirically will start azithromycin Add ceftriaxone Hypomagnesemia Replace as needed MagOx LE edema She reported more pain in her left leg , D-dimer () noted to be elevated Will check for DVT HTN She said she has been having lightheadedness recently BP low normal will hold on lisinopril DM blood sugars were reviewed A1c 7.8 carbohydrate controlled diet. sliding scale insulin and accuchecks. hold oral antidiabetic medication/metformin. basal insulin: 15 units hypoglycemia protocol. LINTERVAL HPI: As Above, Pt resting in bed. feeling better. Denies any chest pain, SOB Chronic diseases: Unless mentioned Above, Essential home medications have been continued. DVT Px: Addressed Disposition: To be determined Plan of care Discussed with: the medical team, the patient L Exam Physical Exam Vital Signs: Temp Pulse Resp BP Pulse Ox O2 Del Method 36.8 C 66 20 117/66 94 L Room Air 12/25/23 16:00 12/25/23 16:00 12/25/23 16:00 12/25/23 16:00 12/25/23 16:00 12/25/23 16:00 Narrative: GEN: NAD, Cooperative NECK: ? JVD, supple LUNGS: diminished breathing sounds minimal rhonchi . CV: nl S1 S2; no M/R/G, ABD: Soft, ND, NT, + BS, ? HSM EXT: LE peripheral lymphedema, left leg tenderness above the ankle, chronic tenderness in her left knee, No calf muscle tenderness NEURO: ? FND. PSYCH: nl affect, AOx3 Objective Lab Results 12/25/23 06:04 12/25/23 06:04 Microbiology Results Microbiology 12/25/23 06:45 Nasopharyngeal Respiratory Panel (PCR) - Final Meds Allergies and Active Meds Allergies albuterol Allergy (Verified 06/22/22 03:36) Unknown Reaction Active Meds: Active Medications Generic Name Dose Route Start Last Admin Trade Name Freq PRN Reason Stop Dose Admin Allopurinol 300 mg 12/25/23 09:00 12/25/23 08:44 Allopurinol 300 Mg Tablet PO 12/24/24 08:59 300 mg DAILY PERLA Administration Atorvastatin Calcium 40 mg 12/25/23 21:00 Atorvastatin 40 Mg Tablet PO 12/24/24 20:59 QPM PERLA Dextrose 0 gm 12/25/23 18:11 Dextrose 50% In Water 25 Gm/50 Ml Syringe IV-PUSH 12/24/24 18:10 PRN PRN Hypoglycemia Furosemide 40 mg 12/26/23 09:00 Furosemide 40 Mg Tablet PO 12/25/24 08:59 DAILY PERLA Glucose 0 gm 12/25/23 18:11 Dextrose 40% Gel 15 Gm Tube PO 12/24/24 18:10 PRN PRN Hypoglycemia Azithromycin 500 mg in 250 mls @ 250 mls/hr 12/25/23 09:00 12/25/23 08:43 Zithromax IV 250 mls/hr Q24H PERLA Administration Magnesium Sulfate 2 gm in 50 mls @ 25 mls/hr 12/26/23 05:44 Magnesium Sulf 2gm-*Swfi* IV 12/25/24 05:43 DAILY PRN Magnesium < 1.9 Insulin Aspart 0 units 12/25/23 22:00 Insulin Aspart 300 Units/3 Ml Insuln.Pen SUBCUT 12/24/24 21:59 TID.WM.HS [facility] Protocol Insulin Glargine 15 units 12/25/23 22:00 Insulin Glargine 300 Units/3 Ml Insuln.Pen SUBCUT 12/24/24 21:59 QHS PERLA Levothyroxine Sodium 200 mcg 12/25/23 06:30 12/25/23 06:34 Levothyroxine 200 Mcg Tablet PO 12/24/24 06:29 200 mcg DAILY@0630 PERLA Administration Metoprolol Succinate 150 mg 12/25/23 06:00 12/25/23 06:34 Metoprolol Succinate 50 Mg Tab.Er.24h PO 12/24/24 05:59 150 mg DAILY PERLA Administration Rivaroxaban 15 mg 12/25/23 17:00 12/25/23 17:21 Rivaroxaban 15 Mg Tablet PO 12/24/24 16:59 15 mg DAILY@17 PERLA Administration A&P - Hospitalist Assessment/Plan (1) Type 2 AR (myocardial infarction): Plan Documented By: Apryl Shirley MD 12/25/231811 Signed By: <Electronically signed by Apryl Sihrley MD> 12/25/23 0541 [facility] Work Phone: 1(110) 563-752710-05-2024 History and physical note Author Ren Mohan [facility] December 25, 2023 5:41am Note Date/Time December 25, 2023 3: 54am [facility] [address] [place] [address] Hospitalist H&P Signed Patient: Mohan Espinoza MR#: [id number] : 1935 Acct:[id number] Age/Sex: 88 / F Adm Date: 4 Loc: Room: [address] [place] [address] Type: ADM IN Attending Dr: Ren Mohan DO Copies to: Ren Mohan DO NO FAMILY PHYSICIAN~ HPI DATE OF EXAMINATION: 12/25/23 CHIEF COMPLAINT: Shortness of breath HISTORY OF PRESENT ILLNESS: This patient is an 88-year-old female with previously known history of atrial fibrillation, hypertension, type 2 diabetes and hyperlipidemia. She has been evaluated here at [facility] necessitating cardiology consultation for troponin elevation in June of last year. She presented to outside ER earlier this evening with initially reported shortness of breath per report. Accompanying documentation from outside ER suggest this was associated with ongoing cough with subjective fevers and chills. Diarrhea reported x 1. Overall malaise. Available vital signs for review indicate tachypnea 34 breaths/min and tachycardia 109 bpm. Afebrile, 94% oxygen saturation on room air with a blood pressure 138/91. Laboratory evaluation revealed leukocytosis of 17.3 with neutrophil predominance, monocyte elevation 1.1., H&H 16.6/49.6%, platelets 236. D-dimer was elevated per outside scale at 0.89 although not significantly so based on age adjustment. Chemistries showed appropriate electrolytes BUN/creatinine 41/1.73. High- sensitivity troponin elevated at 51.6 with subsequent repeat 220.2. Urinalysis is benign appearing. Viral screening for COVID and influenza negative. Nonacute chest x- ray reported. I discussed the case earlier in the evening with ER physician at [place] and with rising troponins ACS cannot be excluded at this time and decision was made to provide therapeutic Lovenox 1 mg/kg, aspirin 324 mg. Records accompanying her show only orders for heparin drip, IV metoprolol and Solu-Medrol 125. Per patient and nursing report the patient did not receive Lovenox and aspirin as intended. She describes generalized malaise and nonfocal weakness for upwards of a week with difficulty sleeping. Minimally productive cough and subjective chills. Has some faint audible wheezing and visible dyspnea on initial evaluation Physical Examination: GENERAL APPEARANCE: Alert, up in bed AAOx3, mildly dyspneic appearing CARDIAC: Normal S1 and S2. Irregularly irregular, mildly tachycardic LUNGS: Clear to auscultation anterolaterally without wheeze rhonchi or rales ABDOMEN: Positive bowel sounds. Soft, nontender. No guarding or signs of an acute abdomen EXTREMITIES: No clubbing, cyanosis or edema NEUROLOGICAL: No focal deficits SKIN: Skin normal color, texture and turgor with no lesions or eruptions. PSYCHIATRIC: Appropriate mood and affect Assessment and plan: 1. Non-ST segment myocardial infarction versus type II demand ischemia 2. Atrial fibrillation with rapid ventricular rate 3. Generalized malaise 4. Shortness of breath with cough 5. Hypertension 6. Type 2 diabetes mellitus 7. Hyperlipidemia 8. Leukocytosis 9. Factor V Leiden disorder with history of pulmonary embolism status post [place] filter 10. Hypothyroidism 11. 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 Her symptomatic complaints are of malaise and chills/cough. Shewas influenza and COVID-negative but will screen with full viral PCR panel as her complaints are consistent with a viral syndrome. Certainly her troponin elevation and its initial trajectory need to be monitored but rapid heart rate and tachypnea on presentation could have led to type II myocardial infarction. A set of cardiac markers is pending this morning and she has received aspirin bolus with anticoagulation Lovenox x 1. Additionally her regularly prescribed Xarelto has been on board and will be continued for now unless true suspicion for ongoing event develops. She however at this time has relatively good control of respiratory status with minimal hypoxia and mild tachycardia, persistent A-fib. Empirically will start azithromycin for concomitant anti-inflammatory effect given her work of breathing and faint wheeze audible at the bedside. Oddly when I actually listen to her lungs she is clear to auscultation. Will consider repeat chest x-ray but empirically draw blood cultures with a.m. labs and if further concern for bacterial pneumonia persist addition of Rocephin to azithromycin can be considered. She is on 200 mcg of levothyroxine daily which will also be continued. Given her malaise and fatigue will check thyroid studies to assure adequate dosing. Her CKD is seemingly near baseline but will evaluate on labs this morning. Likely can safely continue metformin and glipizide. Continue on 150 mg metoprolol ER. [facility] Medical History (Updated 12/25/23 @ 05:41 by Ren Mohan DO) Non-Hodgkin lymphoma in remission Patient recieved chemo therapy Problem List clean-up per request of Phys. EHR [facility] [place] filter in place Problem List clean-up per request of Phys. EHR Cmte Anemia Problem List clean-up per request of Phys. EHR Cmte Hypothyroidism Problem List clean-up per request of Phys. EHR Cmte Hypertension Problem List clean-up per request of Phys. EHR Cmte Gout Problem List clean-up per request of Phys. EHR Cmte Factor V Leiden Problem List clean-up per request of Phys. EHR [facility] Pulmonary embolism Problem List clean-up per request of Phys. EHR [facility] Diabetes Problem List clean-up per request of Phys. EHR [facility] Myocardial infarct Problem List clean-up per request of Phys. EHR [facility] Surgical History (Updated 03/03/23 @ 14:47 by Fast FiBR Ms) History of appendectomy Problem List clean-up per request of Phys. EHR [facility] History of open heart surgery x4 Problem List clean-up per request of Phys. EHR [facility] History of heart artery stent March 2018- 3 stents placed at [facility] Problem List clean-up per request of Phys. EHR [facility] Family History Father Diabetes Mother Stroke Other Hypertension Social History Smoking Status: Former smoker Substance Use Type: None Meds Medications and Allergies Allergies albuterol Allergy (Verified 06/22/22 03:36) Unknown Reaction Home Medications allopurinol 300 mg tablet 300 mg PO DAILY 06/22/22 [History Confirmed 12/25/23] furosemide 40 mg tablet 40 mg PO DAILY 06/22/22 [History Confirmed 12/25/23] glipizide 10 mg tablet 10 mg PO BID 06/22/22 [History Confirmed 12/25/23] levothyroxine 200 mcg tablet 200 mcg PO DAILY 06/22/22 [History Confirmed 12/25/23] losartan 100 mg tablet 100 mg PO DAILY 06/22/22 [History Confirmed 12/25/23] metformin 500 mg tablet 500 mg PO BID 06/22/22 [History Confirmed 12/25/23] atorvastatin 40 mg tablet 40 mg PO QPM 30 days #30 tabs 06/23/22 [Rx Confirmed 12/25/23] metoprolol succinate 50 mg tablet,extended release 24 hr 150 mg (3 x 50 mg) PO DAILY 30 days #90 tabs 06/23/22 [Rx Confirmed 12/25/23] rivaroxaban 15 mg tablet (Xarelto) 15 mg PO DAILY@17 30 days #30 tabs 06/23/22 [Rx Confirmed 12/25/23] Assessment & Plan Assessment/Plan (1) NSTEMI (non-ST elevated myocardial infarction): Plan . IP vs OBS Justification Based on differential dx, clinical care plan, and risk of adverse events, if untreated, in my clinical judgement this patient requires an acute care setting as: INPATIENT because of an expectation of an over 2 midnight stay. Estimated length of stay (# of days): 3 Documented By: Ren Mohan DO 12/25/23 43 Signed By: <Electronically signed by Ren Mohan DO> 12/25/23 0541 [facility] Work Phone: [phone]) 258-107904-04-2023 Progress note Author Brissa Hoffman [facility] June 23, 2022 5:18pm Note Date/Time June 23, 2022 12:1 1pm [facility] [address] [place] [address] Hospitalist Progress Note Signed Patient: Mohan Espinoza MR#: [id number] : 1935 Acct:[id number] Age/Sex: 86 / F Adm Date: 3 Loc: Room: [address] [place] [address] Type: ADM IN Attending Dr: Brissa Hoffman [...] Tablet PO 06/22/23 08:59 Not Given DAILY [facility] Metoprolol Succinate 150 mg 06/24/22 09:00 Metoprolol Succinate 50 Mg Tab.Er.24h PO 06/24/23 08:59 DAILY [facility] Rivaroxaban 15 mg 06/22/22 17:00 06/22/22 17:00 Rivaroxaban 15 Mg Tablet PO 06/22/23 16:59 15 mg DAILY@17 [facility] Administration A&P - Hospitalist Assessment/Plan (1) Elevated [...] 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 DVT/PE: [place] filter in place Gout: Continue home meds DVT prophylaxis: Home Xarelto, SCD CODE STATUS: Full code Documented By: Brissa Hoffman MD 06/23/22 1210 Signed By: <Electronically signed by Brissa Hoffman MD> 06/23/22 1718 [facility] Work Phone: 1(209) 924-806904-04-2023 Hospital Discharge instructionsAmbulatory Orders* Initiate Home Health Time Frame: 06/23/22, Location: Determined By Patient Additional Instructions Please call and schedule an appointment with your established Tablet Tester. HOME HEALTH TO MANAGE: Nursing/PT to eval and treat Monitor VS per protocol Monitor Cardiovascular assessment--Elevated troponin, CAD, HTN Please draw a BMP in 5 days, Send to Dr. Schultz Assist with medication management and provide medication education Assist with glucose control Provide education on high risk fall precautions [facility] Work Phone: 1([phone]) 107-319504-04-2023 Progress note Author W Jacinto [facility] June 23, 2022 9:56am Note Date/Time June 23, 2022 9:56 am [facility] [address] [place] [address] Cardiology Progress Note Signed Patient: Mohan Espinoza MR#: [id number] : 1935 Acct:[id number] Age/Sex: 86 / F Adm Date: 3 Loc: 4 Room: [address] [place] [address] Type: ADM IN Attending Dr: Brissa Hoffman [...] above, to follow-up with Dr. 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 - Activated protein C resistance Status: Acute Documented By: Marta Casey DO 06/23/22 0952 Signed By: <Electronically signed by Marta Casey DO> 06/23/22 0956 [facility] Work Phone: [phone] 242-185404-03-2023 Progress note Author Brissa Hoffman [facility] June 22, 2022 2:14pm Note Date/Time June 22, 2022 2:12 pm [facility] [address] [place] [address] Hospitalist Progress Note Signed Patient: Mohan Espinoza MR#: [id number] : 1935 Acct:[id number] Age/Sex: 86 / F Adm Date: 3 Loc: Room: [address] [place] [address] Type: ADM IN Attending Dr: Brissa Hoffman [...] 08:59 Not Given DAILY [facility] Metoprolol Succinate 100 mg 06/22/22 09:00 06/22/22 09:08 Metoprolol Succinate 100 Mg Tab.Er.24h PO 06/22/23 08:59 Not Given DAILY [facility] Rivaroxaban 15 mg 06/22/22 17:00 Rivaroxaban 15 Mg Tablet PO 06/22/23 16:59 DAILY@17 [facility] A&P - Hospitalist Assessment/Plan (1) Elevated troponin: [...] <Electronically signed by Brissa Hoffman MD> 06/22/22 [facility] Work Phone: 1(755) 238-933704-03-2023 Consult note Author Marta Casey [facility] June 22, 2022 12:49pm Note Date/Time June 22, 2022 11:4 0am [facility] [address] [place] [address] Cardiology Consult Note Signed Patient: Mohan Espinoza MR#: [id number] : 1935 Acct:[id number] Age/Sex: 86 / F Adm Date: 3 Loc: Room: [address] [place] [address] Type: ADM IN Attending Dr: Brissa Hoffman MD Copies to: MD Shaikh Marion Vidal MD W Scott Sheldon, DO~ Cardiology HPI History of Present Illness Consult Date: 06/22/22 Reason for Consult: Elevated cardiac biomarkers, atrial fibrillation, ASHD HPI: Ms. Espinoza is a 86 year old female seen in cardiology consultation at the request of hospitalist after patient was transferred from [place] emergency room with elevated cardiac biomarkers. She presented with symptoms of UTI, bodyaches, lower extremity weakness, rigors; very similar to symptoms she has had before with urinary tract infections. She did not complaining of any shortness of breath or chest discomfort, she was complaining of lower abdominal discomfort as well. In [place] ER, her initial high-sensitivity troponins came back elevated at 100, serum creatinine 1.8, ECG consistent with controlled atrial fibrillation. There were initial attempts to transfer her to [facility] with her primary metal grader Dr. Randolph. They were unable to accept her immediately, there was some concern in the ER that she could not be admitted to [place] (? Unknown reason), therefore [facility] hospitalist was contacted and accepted patient in [...] A-fib Impression/recommendations: Probable type II non-ST elevation AR secondary to multiple comorbidities including obesity, chronic [...] imaging; this canbe completed with her primary metal grader Review of Systems Review of Systems All [...] Surgical History (Updated 06/22/22 @ 12:49 by Marta Casey DO) History of appendectomy History of heart artery stent March 2018- 3 stents placed at [facility] History of open heart surgery x4 [...] x10E3/uL Lymph # (Auto) 1.4 (1.00-4.8) x10E3/uL Cobb # (Auto) 0.9 H (0.0-0.8) x10E3/uL Eos [...] - Activated protein C resistance Documented By: Marta Casey DO 06/22/22 1136 Signed By: <Electronically signed by Marta Casey DO> 06/22/22 2339 [facility] Work Phone: 1([phone]) 219-239504-03-2023 History and physical note Author Toi Johnson [facility] June 22, 2022 7:15am Note Date/Time June 22, 2022 4:22 am [facility] [address] [place] [address] Hospitalist H&P Signed Patient: Mohan Espinoza MR#: [id number] : 1935 Acct:[id number] Age/Sex: 86 / F Adm Date: 3 Loc: Room: [address] [place] [address] Type: ADM IN Attending Dr: Toi Johnson [...] RES) Anemia Diabetes Factor V Leiden Gout Lowell filter in place Hypertension Hypothyroidism Myocardial infarct Non-Hodgkin lymphoma in remission Patient recieved chemo therapy Pulmonary embolism Surgical History History of appendectomy History of heart artery stent March 2018- 3 stents placed at [facility] History of open heart surgery x4 [...] resident's note above. Patient transferred here to [facility] due to elevated troponin and her significant [...] signed by DO FLAQUITA Cano> 06/22/22 0614 [facility] Work Phone: Evaluation note* Diagnosis Onset Date Resolution Status Atrial fibrillation acute CAD (coronary artery disease) acute Chronic anticoagulation acut e CKD (chronic kidney disease), stage III acute Diabetes mellitus acute Dyspnea acute Elevated troponin acute Factor V Leiden acute H/O pulmonary artery thrombosis acute History of heart artery stent acute History of open heart surgery acute HTN (hypertension) acute [facility] Work Phone: Evaluation note* Diagnosis Onset Date Resolution Status NSTEMI (non-ST elevated myocardial infarction) acute Type 2 AR (myocardial infarction) acute [facility] Work Phone: Evaluation note* Diagnosis Unspecified atrial fibrillation (CMS/HCC) documented in this encounter [facility] Diagnosis Primary hypertension (CMS/HCC)- Primary Unspecified essential hypertension Hypothyroidism, unspecified type (CMS/HCC) Type 2 diabetes mellitus with stage 3a chronic kidney disease, without long-term current use of insulin (HCC) (CMS/HCC) Longstanding persistent atrial fibrillation (CMS/HCC) Coronary artery disease involving [place] coronary artery of [place] heart without angina pectoris (CMS/HCC) Essential hypertension (CMS/HCC) Unspecified essential hypertension Stage 3a chronic kidney disease (HCC) (CMS/HCC) Acquired hypothyroidism (CMS/HCC) Unspecified hypothyroidism Chronic lymphocytic leukemia (CMS/HCC) Chronic lymphoid leukemia, without mention of having achieved remission Medicare annual wellness visit, subsequent Longstanding persistent atrial fibrillation (CMS/HCC)- Primary documented in this encounter [facility]* Diagnosis Primary hypertension (CMS/HCC)- Primary Unspecified essential hypertension Hypothyroidism, unspecified type (CMS/HCC) Type 2 diabetes mellitus with stage 3a chronic kidney disease, without long-term current use of insulin (HCC) (CMS/HCC) Longstanding persistent atrial fibrillation (CMS/HCC) Coronary artery disease involving [place] coronary artery of [place] heart without angina pectoris (CMS/HCC) Essential hypertension (CMS/HCC) Unspecified essential hypertension Stage 3a chronic kidney disease (HCC) (CMS/HCC) Acquired hypothyroidism (CMS/HCC) Unspecified hypothyroidism Chronic lymphocytic leukemia (CMS/HCC) Chronic lymphoid leukemia, without mention of having achieved remission Medicare annual wellness visit, subsequent Longstanding persistent atrial fibrillation (CMS/HCC)- Primary Type 2 diabetes mellitus with stage 3a chronic kidney disease, without long-term current use of insulin (HCC) (CMS/HCC)- Primary Essential hypertension (CMS/HCC) Unspecified essential hypertension Acquired hypothyroidism (CMS/HCC) Unspecified hypothyroidism Need for influenza vaccination Need for prophylactic vaccination and inoculation against influenza documented in this encounter [facility]* Diagnosis Primary hypertension (CMS/HCC)- Primary Unspecified essential hypertension Hypothyroidism, unspecified type (CMS/HCC) Type 2 diabetes mellitus with stage 3a chronic kidney disease, without long-term current use of insulin (HCC) (CMS/HCC) Longstanding persistent atrial fibrillation (CMS/HCC) Coronary artery disease involving [place] coronary artery of [place] heart without angina pectoris (CMS/HCC) Essential hypertension (CMS/HCC) Unspecified essential hypertension Stage 3a chronic kidney disease (HCC) (CMS/HCC) Acquired hypothyroidism (CMS/HCC) Unspecified hypothyroidism Chronic lymphocytic leukemia (CMS/HCC) Chronic lymphoid leukemia, without mention of having achieved remission Medicare annual wellness visit, subsequent Longstanding persistent atrial fibrillation (CMS/HCC)- Primary Type 2 diabetes mellitus with stage 3a chronic kidney disease, without long-term current use of insulin (HCC) (CMS/HCC)- Primary Essential hypertension (CMS/HCC) Unspecified essential hypertension Acquired hypothyroidism (CMS/HCC) Unspecified hypothyroidism Need for influenza vaccination Need for prophylactic vaccination and inoculation against influenza Hyperuricemia without signs of inflammatory arthritis and tophaceous disease Type 2 diabetes mellitus without complications (CMS/HCC) documented in this encounter [facility]* Diagnosis Primary hypertension (CMS/HCC)- Primary Unspecified essential hypertension Hypothyroidism, unspecified type (CMS/HCC) Type 2 diabetes mellitus with stage 3a chronic kidney disease, without long-term current use of insulin (HCC) (CMS/HCC) Longstanding persistent atrial fibrillation (CMS/HCC) Coronary artery disease involving [place] coronary artery of [place] heart without angina pectoris (CMS/HCC) Essential hypertension (CMS/HCC) Unspecified essential hypertension Stage 3a chronic kidney disease (HCC) (CMS/HCC) Acquired hypothyroidism (CMS/HCC) Unspecified hypothyroidism Chronic lymphocytic leukemia ([facility]/HCC) Chronic lymphoid leukemia, without mention of having achieved remission Medicare annual wellness visit, subsequent Longstanding persistent atrial fibrillation (CMS/HCC)- Primary Type 2 diabetes mellitus with stage 3a chronic kidney disease, without long-term current use of insulin (HCC) ([facility]/HCC)- Primary Essential hypertension (CMS/HCC) Unspecified essential hypertension Acquired hypothyroidism ([facility]/HCC) Unspecified hypothyroidism Need for influenza vaccination Need for prophylactic vaccination and inoculation against influenza 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/HCC) documented in this encounter [facility]* Diagnosis Primary hypertension (CMS/HCC)- Primary Unspecified essential hypertension Hypothyroidism, unspecified type (CMS/HCC) Type 2 diabetes mellitus with stage 3a chronic kidney disease, without long-term current use of insulin (HCC) (CMS/HCC) Longstanding persistent atrial fibrillation (CMS/HCC) Coronary artery disease involving [place] coronary artery of [place] heart without angina pectoris (CMS/HCC) Essential hypertension (CMS/HCC) Unspecified essential hypertension Stage 3a chronic kidney disease (HCC) (CMS/HCC) Acquired hypothyroidism (CMS/HCC) Unspecified hypothyroidism Chronic lymphocytic leukemia (CMS/HCC) Chronic lymphoid leukemia, without mention of having achieved remission Medicare annual wellness visit, subsequent Longstanding persistent atrial fibrillation (CMS/HCC)- Primary Type 2 diabetes mellitus with stage 3a chronic kidney disease, without long-term current use of insulin (HCC) ([facility]/HCC)- Primary Essential hypertension (CMS/HCC) Unspecified essential hypertension Acquired hypothyroidism (CMS/HCC) Unspecified hypothyroidism Need for influenza vaccination Need for prophylactic vaccination and inoculation against influenza Hypothyroidism, unspecified (CMS/HCC) Unspecified atrial fibrillation (CMS/HCC) documented in this encounter [facility]* Diagnosis Primary hypertension (CMS/HCC)- Primary Unspecified essential hypertension Hypothyroidism, unspecified type (CMS/HCC) Type 2 diabetes mellitus with stage 3a chronic kidney disease, without long-term current use of insulin (HCC) (CMS/HCC) Longstanding persistent atrial fibrillation (CMS/HCC) Coronary artery disease involving [place] coronary artery of [place] heart without angina pectoris (CMS/HCC) Essential hypertension (CMS/HCC) Unspecified essential hypertension Stage 3a chronic kidney disease (HCC) (CMS/HCC) Acquired hypothyroidism (CMS/HCC) Unspecified hypothyroidism Chronic lymphocytic leukemia (CMS/HCC) Chronic lymphoid leukemia, without mention of having achieved remission Medicare annual wellness visit, subsequent Longstanding persistent atrial fibrillation (CMS/HCC)- Primary Type 2 diabetes mellitus with stage 3a chronic kidney disease, without long-term current use of insulin (HCC) (CMS/HCC)- Primary Essential hypertension (CMS/HCC) Unspecified essential hypertension Acquired hypothyroidism (CMS/HCC) Unspecified hypothyroidism Need for influenza vaccination Need for prophylactic vaccination and inoculation against influenza Type 2 diabetes mellitus without complications (CMS/HCC) documented in this encounter [facility] Summary Purpose Family History Relationship Condition Age at Onset Recorded Date/T [...] of lung disea se: Sister(V19.8, Z83.6) Status:Active Relationship Condition Age at Onset Recorded Date/T bernardo Not Specified Hypertension Unknown father Diabetes mellitus Unknown mother Cerebrovascular accident (CVA) Unknown Advance Directives Advance Directive Response Recorded Date/ Time Advance Directives No April 13, 2019 7:25pm Hospital Course Note MR#: [id number] I [facility] Pt. Name: Mohan Espinoza Admitted: 04/06/2018 Discharged: [...] as above, the patient was seen in [facility] after she was feeling weak for 1 day[address] [facility], she was found to have a temperature [...] open heart surgery HTN (hypertension) Chief Complaint Nstemi Reason for Visit NSTEMI (non-ST eleva ruma myocardial infarction) Type 2 AR (myocardial infarction) Chief Complaint * [facility] D/C 06/23/22. * 86-year-old female returns for [...] section and content) DATE CREATED AUTHOR 11/06/2017 [facility] DATE CREATED AUTHOR AUTHOR'S ORGANIZ ATION 04/04/2019 [facility] DATE CREATED AUTHOR AUTHOR'S ORGANIZ ATION 04/18/2020 [facility] DATE CREATED AUTHOR AUTHOR'S ORGANIZ ATION 06/24/2022 [facility] DATE CREATED AUTHOR AUTHOR'S ORGANIZ ATION 09/26/2022 [facility] DATE CREATED AUTHOR AUTHOR'S ORGANIZ ATION 10/01/2022 [facility] DATE CREATED AUTHOR AUTHOR'S ORGANIZ ATION 10/01/2022 [facility] DATE CREATED AUTHOR AUTHOR'S ORGANIZ ATION 12/30/2023 [facility] DATE CREATED AUTHOR AUTHOR'S ORGANIZ ATION 01/12/2024 [facility] DATE CREATED AUTHOR AUTHOR'S ORGANIZ ATION 01/26/2024 [facility] [employer] Care Teams (unrecognized sec tion and content) Team Status: Inactive Member Role Status Dates Shaikh Marion MD Attending Provider Active Team Status: Inactive Member Role Status Dates Shaikh Marion MD Primary Care Provider Active Toi Johnson MD Admit Provider Active Brissa Hoffman MD Attending Provider Active Team Status: Active Member Role Status Dates Shaikh Marion MD Primary Care Provider Active Team Status: Active Member Role Status Dates Emilie Meza NP-[place] Primary Care Provider Ac tive Team Status: Inactive Member Role Status Dates Ren Mohan DO Admit Provider Active Start: December 25, 2023 End: December 28, 2023 Nelson Orourke DO Attending Provider Active St art: December 25, 2023 End: December 28, 2023 Emilie Meza NP-C Primary Care Provider Ac tive Start: December 25, 2023 End: December 28, 2023 Lift Mechanic Relationship Specialty Start Date End Date Fabricio Edouard MD [address] [place] [phone] PCP - General Family Medicine 10/20/23 Emilie Meza NP [address] [place] [phone] Nurse Practitioner Family Medicine 10/20/23 Lift Mechanic Relationship Specialty Start Date End Date Fabricio Edouard MD [address] [place] [phone] PCP - General Family Medicine 10/20/23 Emilie Meza NP [address] [place] [address] Nurse Practitioner Family Medicine 10/20/23 Lift Mechanic Relationship Specialty Start Date End Date Fabricio Edouard MD [address] [place] [phone] PCP - General Family Medicine 10/20/23 Emilie Meza NP [address] [place] [address] Nurse Practitioner Family Medicine 10/20/23 Lift Mechanic Relationship Specialty Start Date End Date Fabricio Edouard MD [address] [place] [phone] PCP - General Family Medicine 10/20/23 Emilie Meza NP [address] [place] [address] Nurse Practitioner Family Medicine 10/20/23 Lift Mechanic Relationship Specialty Start Date End Date Fabricio Edouard MD [address] [place] [phone] PCP - General Family Medicine 10/20/23 Emilie Meza NP [address] [place] [address] Nurse Practitioner Family Medicine 10/20/23 Lift Mechanic Relationship Specialty Start Date End Date Fabricio Edouard MD [address] [place] [phone] PCP - General Family Medicine 10/20/23 Emilie Meza NP [address] [place] [address] Nurse Practitioner Family Medicine 10/20/23 Lift Mechanic Relationship Specialty Start Date End Date Fabricio Edouard MD [address] [place] [address] PCP - General Family Medicine 10/20/23 Emilie Meza NP [address] [place] [address] Nurse Practitioner Family Medicine 10/20/23 Reason for Visit (unrecogniz ed section and content) Reason Onset Date Comments Med Refill 12/28/2023 Reason Comments Hospital Follow-up Reason Comments Hypertension Reason Onset Date Comments Med Refill 02/28/2024 Reason Onset Date Comments Med Refill 04/05/2024 FOR RECORDS PERTAINING TO PATIENTS WHO ARE [...] BE BASED ON THE PRIMARY CLINICAL RECORDS. [employer] provides no warranty or guarantee of the accuracy or completeness of information in this document.
[2024-04-17 08:12] LABS: Basophils Absolute Auto 0.1 10^3/uL (0.0-0.1); Basophils Percent Auto 1.1 % (0.2-2.0); Eosinophils Absolute Auto 0.2 10^3/uL (0.0-0.7); Eosinophils Percent Auto 2.9 % (0.9-7.0); Hematocrit 45.2 % (36.0-48.0); Hemoglobin 14.9 g/dL (12.0-16.0); Immature Granulocytes Abs Auto 0.03 10^3/uL (0.00-0.03); Immature Granulocytes Pct Auto 0.4 % (0.0-0.5); Lymphocytes Absolute Auto 2.6 10^3/uL (1.2-3.8); Lymphocytes Percent Auto 34.2 % (20.5-60.0); Mean Corpuscular Volume 94.2 fL (81.0-99.0); Mean Platelet Volume 11.6 fL (9.5-13.5); Monocytes Absolute Auto 0.8 10^3/uL (0.3-0.8); Monocytes Percent Auto 10.3 % (1.7-12.0); Neutrophils Absolute Auto 3.9 10^3/uL (1.4-6.5); Neutrophils Percent Auto 51.1 % (43.0-75.0); Platelet Count 218 10^3/uL (150-450); Red Cell Distribution Width 13.8 % (11.0-15.0); White Blood Count 7.6 10^3/uL (4.0-11.0)
[2024-04-17 08:24] LABS: Estimated Average Glucose 154 mg/dL
[2024-04-17 09:31] LABS: Alanine Aminotransferase 20 U/L (14-59); Albumin Globulin Ratio 0.7; Albumin Level 3.1 g/dL (3.4-5.0); Alkaline Phosphatase 99 U/L (46-116); Anion Gap 14.1; Aspartate Amino Transferase 17 U/L (15-37); BUN Creatinine Ratio 20.4; Bilirubin Total 0.5 mg/dL (0.2-1.0); Calcium 8.9 mg/dL (8.5-10.1); Carbon Dioxide 27.1 mmol/L (21.0-32.0); Chloride 105 mmol/L (98-107); Estimated GFR (African America 44 (>=60 mL/min/1.73m^2); Estimated GFR (Non-African Ame 37 (>=60 mL/min/1.73m^2); Globulin 4.2 g/dL; Glucose 173 mg/dL (74-106); Potassium 4.2 mmol/L (3.5-5.1); Sodium 142 mmol/L (136-145); TSH W/ REFLEX FT4 0.937 uIU/mL (0.358-3.740); Total Protein 7.3 g/dL (6.4-8.2)
[2024-04-17 13:55] LABS: Creatinine Urine Random 62.19 mg/dL (20.00-300.00); Microalbum Creatinine Ratio Ur 120.5 mg/g (0.0-29.9); Microalbumin Urine Random 7.5 mg/dL (<=30.0)
== END 2024-04-17 07:35 | disposition home or self-care (01) ==
LOC: LAB 07:36
DX: E03.9 Hypothyroidism, unspecified (principal); E11.22 Type 2 diabetes mellitus with diabetic chronic kidney disease; N18.31 Chronic kidney disease, stage 3a; I12.9 Hypertensive chronic kidney disease with stage 1 through stage 4 chronic kidney disease, or unspecified chronic kidney disease
CPT/HCPCS: 36415; 80053; 82043; 82570; 83036; 84443; 85025

== ENCOUNTER 2024-07-06 13:10 | Inpatient (IN) | payer MEDICARE, OTHER, SELFPAY ==
[2024-07-06 13:10] VITALS: BP 94/71; PULSE 91; TEMP 36.5; O2SAT 94; BMI 41.8
--- NOTE | 2024-07-06 13:22 | ECG_ITS ---
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 Measurements Intervals [place] Rate: 82 P: -11092 [place]: -[address] QRS: -5 QRSD: 86 T: 108 QT: 362 QTc: 400 Interpretive Statements 1210 Atrial fibrillation [address] depression, probably digitalis effect [address] & [place] abnormality, probably digitalis effect 9140 abnormal rhythm ECG Compared to ECG 12/24/2023 20:42:34 QRS duration has decreased Electronically Signed On 07-06-2024 17:17:03 EDT by JANE WESLEY M.D.
--- NOTE | 2024-07-06 13:23 | ED.GENADUL1 ---
HPI HPI - General Adult General Chief complaint: Fall Stated complaint: WEAKNESS Time Seen by Provider: 07/06/24 13:13 Source: patient Mode of arrival: ambulance Limitations: no limitations History of Present Illness HPI narrative: 88-year-old female presents for generalized weakness. Today she tried to get out of bed but her legs would not support her and she slid off the bed onto the floor. She did not injure herself in any way and did not hit her head. She was not able to get herself up off the floor. She lives with her at home. Paramedics transported her here. She fell also about a week ago. She does not complain of any pain and has not had a fever. She states she has had some intermittent diarrhea for about 2 weeks. Related Data Home Medications ?Medication ?Instructions ?Recorded ?Confirmed allopurinol 300 mg tablet 300 mg PO DAILY 12/25/23 07/06/24 furosemide 40 mg tablet 40 mg PO DAILY 12/25/23 07/06/24 glipizide 10 mg tablet 10 mg PO BID 12/25/23 07/06/24 levothyroxine 200 mcg tablet 200 mcg PO DAILY 12/25/23 07/06/24 metformin 500 mg tablet 500 mg PO DAILY 12/25/23 07/06/24 metoprolol succinate 50 mg 150 mg PO DAILY 12/25/23 07/06/24 tablet,extended release 24 hr rivaroxaban 15 mg tablet (Xarelto) 15 mg PO Q24H 12/25/23 07/06/24 Allergies Allergy/AdvReac Type Severity Reaction Status Date / Time Iodinated Contrast Media Allergy Unknown Unknown Verified 07/06/24 13:32 Opioid HPI Opioid Management Most Recent Opioid Data: No Data to Display Review of Systems ROS Narrative A ten point review of systems is negative except as noted above. PFSH PFSH Medical History (Updated 07/06/24 @ 16:01 by Kasi Kendrick MD) Diabetes ?E11.9 - Type 2 diabetes mellitus without complications (ICD-10) Atrial fibrillation ?I48.91 - Unspecified atrial fibrillation (ICD-10) Surgical History (Updated 07/06/24 @ 13:33 by Kristin Ellis RN) Hx of heart artery stent ?Z95.5 - Presence of coronary angioplasty implant and graft (ICD-10) Social History Little interest or pleasure in doing things: not at all Feeling down, depressed, or hopeless: not at all Exam Narrative Exam Narrative: Nurses note and vital signs reviewed and patient is not hypoxic. General: The patient appears in no apparent distress. Patient is resting comfortably on cart. Skin: Warm, dry, no pallor noted. There is no rash noted. Head: Normocephalic, atraumatic Eye: Normal conjunctiva, no drainage Ears, Nose, Mouth, and Throat: oral mucosa is moist. Nares patent. Cardiovascular: Regular Rate and Rhythm Respiratory: Patient is in no distress, no accessory muscle use, lungs are clear to auscultation, no wheezing, rales or rhonchi Back: non-tender GI: Soft and nontender Musculoskeletal: The patient has no evidence of calf tenderness, no pitting edema, symmetrical pulses noted bilaterally Neurological: A&O x4, normal speech; she is unable to lift each leg off of the bed individually. She is able to move her arms without difficulty. Psychiatric: Cooperative Constitutional Vital Signs, click to edit/add: Last Vital Signs Temp 97.7 F 07/06/24 13:10 Pulse 94 H 07/06/24 14:49 Resp 20 07/06/24 14:49 BP 145/91 H 07/06/24 14:49 Pulse Ox 98 07/06/24 14:49 O2 Del Method Room Air 07/06/24 14:49 Course Vital Signs Vital signs: Vital Signs Temperature 97.7 F 07/06/24 13:10 Pulse Rate 91 H 07/06/24 13:10 Respiratory Rate 20 07/06/24 13:10 Blood Pressure 94/71 07/06/24 13:10 Pulse Oximetry 94 L 07/06/24 13:10 Oxygen Delivery Method Room Air 07/06/24 13:10 Temperature 97.7 F 07/06/24 13:10 Pulse Rate 94 H 07/06/24 14:49 Respiratory Rate 20 07/06/24 14:49 Blood Pressure 145/91 H 07/06/24 14:49 Pulse Oximetry 98 07/06/24 14:49 Oxygen Delivery Method Room Air 07/06/24 14:49 Medical Decision Making MDM Narrative Medical decision making narrative: Her workup is negative. No evidence of UTI. She is unable to bear weight on her legs and she will be admitted. She will likely need social media senior associate consult and possible ECF placement. Treatment diagnosis and disposition were discussed with the patient. Differential Diagnosis Differential Diagnosis: UTI, dehydration, anemia Lab Data Lab results reviewed: Yes I reviewed the patient's lab results Labs: Lab Results 07/06/24 07/06/24 Range/Units 13:46 13:52 WBC 12.8 H (4.0-11.0) 10^3/uL RBC 4.92 (4.20-5.40) 10^6/uL Hgb 15.4 (12.0-16.0) g/dL Hct 45.7 (36.0-48.0) % MCV 92.9 (81.0-99.0) fL MCH 31.3 (26.7-34.0) pg MCHC 33.7 (29.9-35.2) g/dL RDW 13.7 (11.0-15.0) % Plt Count 194 (150-450) 10^3/uL MPV 11.5 (9.5-13.5) fL Neut % (Auto) 80.8 H (43.0-75.0) % Lymph % (Auto) 11.3 L (20.5-60.0) % [place] % (Auto) 6.6 (1.7-12.0) % Eos % (Auto) 0.3 L (0.9-7.0) % Baso % (Auto) 0.6 (0.2-2.0) % Neut # (Auto) 10.3 H (1.4-6.5) 10^3/uL Lymph # (Auto) 1.4 (1.2-3.8) 10^3/uL [place] # (Auto) 0.8 (0.3-0.8) 10^3/uL Eos # (Auto) 0.0 (0.0-0.7) 10^3/uL Baso # (Auto) 0.1 (0.0-0.1) 10^3/uL Abs Immat Gran (auto) 0.05 H (0.00-0.03) 10^3/uL Imm/Tot Granulo (auto) 0.4 (0.0-0.5) % Sodium 137 (136-145) mmol/L Potassium 4.3 (3.5-5.1) mmol/L Chloride 100 (98-107) mmol/L Carbon Dioxide 25.7 (21.0-32.0) mmol/L Anion Gap 15.6 BUN 37.0 H (7.0-18.0) mg/dL Creatinine 1.65 H (0.55-1.02) mg/dL Est GFR ( Amer) 36 L (>=60 mL/min/1.73m^2) Est GFR (Non-Af Amer) 29 L (>=60 mL/min/1.73m^2) BUN/Creatinine Ratio 22.4 Glucose 174 H (74-106) mg/dL Calcium 9.0 (8.5-10.1) mg/dL Troponin I High Sens 10.1 (4.0-51.3) pg/mL Urine Color Lt. yellow (YELLOW) Urine Clarity Clear (CLEAR) Urine pH 6.0 (5.0-9.0) Ur Specific [place] 1.020 (1.005-1.025) Urine Protein Negative (NEG/TRACE) mg/dL Urine Glucose (UA) Negative (NEGATIVE) mg/dL Urine Ketones Negative (NEGATIVE) mg/dL Urine Occult Blood Small A (NEGATIVE) Urine Nitrite Negative (NEGATIVE) Urine Bilirubin Negative (NEGATIVE) Urine Urobilinogen 0.2 (0.2-1.0) EU/dL Ur Leukocyte Esterase Moderate A (NEGATIVE) Urine RBC 0-2 (0-2) #/HPF Urine WBC 2-5 A (NONE SEEN) #/HPF Ur Squamous Epith Cells Few A (NONE/RARE) #/LPF Ur Transition Epith Cell Rare A (NONE SEEN) #/LPF Urine Crystals None seen (None Seen) #/HPF Urine Bacteria Small A (NONE SEEN) #/HPF Urine Casts Seen A (NONE SEEN) #/LPF Hyaline Casts Few Urine Mucus Small A (NONE SEEN) Ur Culture Indicated? Yes-[facility] [place] Imaging Data Chest x-ray: Radiologist's impression: No acute process ECG Data Attestation: I personally reviewed and interpreted this ECG as follows: (EKG on my interpretation shows atrial fibrillation) Discharge Plan Discharge Chief Complaint: Fall Clinical Impression: Generalized weakness Patient Disposition: Admitted as Observation Time of Disposition Decision: 16:00 Condition: Fair
--- NOTE | 2024-07-06 13:23 | PC.NURSE ---
Per patient she slid off side of the bed landing on buttocks. Denies Loss of conscious. Denies injury from fall.
[2024-07-06] MEDS: 0.9 % SODIUM CHLORIDE 500 ML IV (14:05)
[2024-07-06 14:12] LABS: Basophils Absolute Auto 0.1 10^3/uL (0.0-0.1); Basophils Percent Auto 0.6 % (0.2-2.0); Eosinophils Percent Auto 0.3 % (0.9-7.0); Hematocrit 45.7 % (36.0-48.0); Hemoglobin 15.4 g/dL (12.0-16.0); Immature Granulocytes Abs Auto 0.05 10^3/uL (0.00-0.03); Immature Granulocytes Pct Auto 0.4 % (0.0-0.5); Lymphocytes Absolute Auto 1.4 10^3/uL (1.2-3.8); Lymphocytes Percent Auto 11.3 % (20.5-60.0); Mean Corpuscular HGB Conc 33.7 g/dL (29.9-35.2); Mean Corpuscular Hemoglobin 31.3 pg (26.7-34.0); Mean Corpuscular Volume 92.9 fL (81.0-99.0); Mean Platelet Volume 11.5 fL (9.5-13.5); Monocytes Absolute Auto 0.8 10^3/uL (0.3-0.8); Monocytes Percent Auto 6.6 % (1.7-12.0); Neutrophils Absolute Auto 10.3 10^3/uL (1.4-6.5); Neutrophils Percent Auto 80.8 % (43.0-75.0); Platelet Count 194 10^3/uL (150-450); Red Blood Count 4.92 10^6/uL (4.20-5.40); Red Cell Distribution Width 13.7 % (11.0-15.0); White Blood Count 12.8 10^3/uL (4.0-11.0)
[2024-07-06 14:13] LABS: Bilirubin Urine NEGATIVE (NEGATIVE); Blood Urine SMALL (NEGATIVE); Clarity Urine CLEAR (CLEAR); Color Urine LT. YELLOW (YELLOW); Glucose Urine UA NEGATIVE (NEGATIVE); Ketones Urine NEGATIVE (NEGATIVE); Leukocyte Esterase Urine MODERATE (NEGATIVE); Nitrite Urine NEGATIVE (NEGATIVE); Protein Urine NEGATIVE (NEG/TRACE); Urobilinogen Urine 0.2 EU/dL (0.2-1.0)
[2024-07-06 14:20] LABS: Anion Gap 15.6; BUN Creatinine Ratio 22.4; Carbon Dioxide 25.7 mmol/L (21.0-32.0); Chloride 100 mmol/L (98-107); Estimated GFR (African America 36 (>=60 mL/min/1.73m^2); Estimated GFR (Non-African Ame 29 (>=60 mL/min/1.73m^2); Glucose 174 mg/dL (74-106); Potassium 4.3 mmol/L (3.5-5.1); Sodium 137 mmol/L (136-145)
[2024-07-06 14:21] LABS: Bacteria Urine SMALL #/HPF (NONE SEEN); Cast Seen? SEEN #/LPF (NONE SEEN); Crystals Seen? None Seen #/HPF (None Seen); Mucus Urine SMALL (NONE SEEN); RBC Urine 0-2 #/HPF (0-2); Squamous Epithelial Cell Urine FEW #/LPF (NONE/RARE); Transitional Epi Cells Urine RARE #/LPF (NONE SEEN)
[2024-07-06 14:22] LABS: Hyaline Casts Urine FEW; Urine Culture Indicated YES-FRMC
[2024-07-06 14:39] LABS: Troponin I High Sensitivity 10.1 pg/mL (4.0-51.3)
[2024-07-06 14:49] VITALS: BP 145/91; PULSE 94; O2SAT 98
[2024-07-06 17:06] VITALS: BP 116/77; PULSE 80; TEMP 36.4; O2SAT 94; BMI 31.6
--- NOTE | 2024-07-06 17:55 | P.HP_ITS ---
HPI H&P: HPI History of Present Illness Chief complaint: WEAKNESS Narrative: Patient presented emergency room after a fall and unable to get up, having knee pain, over the last week to 10 days she has been progressively getting weaker, in ER found to have significant dehydration acute UTI with leukocytosis and sinus tachycardia When I saw patient up in the medical surgical floor she been given some IV fluids and did feel somewhat better with that, no conversational dyspnea just feels generally short of breath with any activity Opioid HPI Opioid Management Most Recent Pain and Opioid Data: Last Pain Scale 7 07/06/24 18:00 07/06/24 Last Pain Assessment 07/06/24 18:00 Last ORT Total Score 0 07/06/24 17:06 07/06/24 Last ORT Risk Category Low Risk 07/06/24 17:06 07/06/24 Review of Systems ROS Status of ROS 10 or more systems reviewed and unremark able except as noted in history and below PFSH PFSH Medical History (Updated 07/06/24 @ 17:36 by Gayathri Mcdonald) Non Hodgkin's lymphoma ?C85.90 - Non-Hodgkin lymphoma, unspecified, unspecified site (ICD-10) Diabetes ?E11.9 - Type 2 diabetes mellitus without complications (ICD-10) Atrial fibrillation ?I48.91 - Unspecified atrial fibrillation (ICD-10) Surgical History (Updated 07/06/24 @ 13:33 by Kristin Ellis RN) Hx of heart artery stent ?Z95.5 - Presence of coronary angioplasty implant and graft (ICD-10) Social History Highest level of school completed/degree received: some college, no degree Little interest or pleasure in doing things: not at all Feeling down, depressed, or hopeless: not at all Meds Home Medications and Allergies Home Medications ?Medication ?Instructions ?Recorded ?Confirmed ?Type allopurinol 300 mg tablet 300 mg PO DAILY 12/25/23 07/06/24 History furosemide 40 mg tablet 40 mg PO DAILY 12/25/23 07/06/24 History glipizide 10 mg tablet 10 mg PO BID 12/25/23 07/06/24 History levothyroxine 200 mcg tablet 200 mcg PO DAILY 12/25/23 07/06/24 History metformin 500 mg tablet 500 mg PO DAILY 12/25/23 07/06/24 History metoprolol succinate 50 mg 150 mg PO DAILY 12/25/23 07/06/24 History tablet,extended release 24 hr rivaroxaban 15 mg tablet (Xarelto) 15 mg PO Q24H 12/25/23 07/06/24 History Allergies Allergy/AdvReac Type Severity Reaction Status Date / Time Iodinated Contrast Media Allergy Unknown Unknown Verified 07/06/24 13:32 Exam Constitutional Vital Signs, click to edit/add: Last Vital Signs Temp 97.5 F L 07/06/24 17:06 Pulse 80 07/06/24 17:06 Resp 20 07/06/24 17:06 BP 116/77 07/06/24 17:06 Pulse Ox 94 L 07/06/24 17:06 O2 Del Method Room Air 07/06/24 17:06 Documenting provider has reviewed patient's vital signs: yes Common normals: no apparent distress Respiratory Common normals: normal respiratory effort and no retractions Cardio Common normals: regular rhythm Rate: tachycardic GI Common normals: Normal to inspection, nondistended, normoactive bowel sounds p resent and soft to palpation Neuro [place] Coma Scale: document GCS findings Results Labs Labs: Short CBC 07/06/24 Range/Units 13:46 WBC 12.8 H (4.0-11.0) 10^3/uL Hgb 15.4 (12.0-16.0) g/dL Hct 45.7 (36.0-48.0) % Plt Count 194 (150-450) 10^3/uL BMP 07/06/24 13:46 Sodium 137 Potassium 4.3 Chloride 100 Carbon Dioxide 25.7 BUN 37.0 H Creatinine 1.65 H Glucose 174 H Calcium 9.0 Urine 07/06/24 Range/Units 13:52 Urine Color Lt. yellow (YELLOW) Urine Clarity Clear (CLEAR) Urine pH 6.0 (5.0-9.0) Ur Specific [place] 1.020 (1.005-1.025) Urine Protein Negative (NEG/TRACE) mg/dL Urine Glucose (UA) Negative (NEGATIVE) mg/dL Assessment and Plan Assessment and Plan (1) Generalized weakness: (2) D-dimer, elevated: (3) Elevated troponin: (4) Atrial fibrillation with RVR: Plan Admission findings: tachycardia, labile hypertension, leukocytosis, mild elevation in creatinine with an acute UTI resulting in criteria for sepsis (tachycardia, leukocytosis with a known infectious source of urine) Sepsis secondary to likely pyelonephritis with back pain-IV antibiotics, blood cultures, urine cultures, serial labs Leukocytosis secondary to the above-monitor daily Acute elevation in creatinine secondary to dehydration, 125.4% above baseline Atrial fibrillation-rates not controlled-but improving with IV fluids, check echocardiogram, HST, BNP Coronary artery disease-see above Knee pain bilaterally-check x-rays Diabetes mellitus-insulin sliding scale Admission status: Patient with tachycardia, labile hypertension, leukocytosis with known infectious source reviewed urine and back pain likely pyelonephritis, resulting in sepsis, medically necessary treatment will span 2 midnights. Inpatient status
--- OUTSIDE RECORDS SUMMARY | 2024-07-06 18:21 | XMS_ITS | CCD ---
Author Organization [facility] Care Team Providers Care Data Communications Engineer Name Role Phone Darrian Benton Unavailable Unavailable GLORIA, SARMED Admitting Unavailable GLORIA, SARMED Attending Unavailable ROMARIO BAKER Primary Care Unavailable ER, JOVANNI Referring Unavailable MO Procedure Practitioner Unavailab le UNKNOWN, PROVIDER Surgeon Unavailable MD Quan Schultz Primary Care Provider MD Toi Johnson Admit Provider MD Brissa Hoffman Attending Provider [phone] FAWWAD, GOOD H Admitting Unavailable FAWWAD, GOOD [...] Consulting Unavailable MD Quan Schultz Attending Provider [phone] [place], Good Unavailable Unavailable Unavailable JOSELUIS CASEY Attending Unavailable JOSELUIS CASEY Attending Unavailable Jacinto, Dr. Joseluis Warren Attending Unava ilable Jacinto, Dr. Joseluis Warren Attending Unava ilable Jacinto, Dr. Joseluis Warren Referring Unava ilable Jacinto, Dr. Joseluis Warren Attending Unava iljakob Schultz, Dr. Good Referring Unavailable Jacinto, Dr. Joseluis Warren Attending Unava ilable Nelson Orourke Attending Unavailable Ren Mohan Admitting Unavailable Emilie Meza Primary Care Unavaila DO Ren Kiser Admit Provider [phone] DO Nelson Orourke Attending Provider [phone] CHRSITY Meza Primary Care Provid er Fabricio Edouard MD Primary Care Provider Derrick RODDING MACHINE TENDER, Emilie Unavailable [phone] JOSELUIS CASEY Attending Unavailable SHAIKH SCHULTZ Primary Care Unavailable Meza RODDING MACHINE TENDER, Emilie Unavailable [phone] ИРИНА BROWN Attending Unavailable MEZAEMILIE Attending Unavailabl e MEZA, EMILIE Attending Unavailabl e MEZAEMILIE Attending Unavailabl e Allergies Allergy Classification Reported Allergen(s) Allergy Type Date of Onset Reaction(s) Facility (2 sources) Albuterol Drug Allergy 9 [facility] Repository (1 source) Albuterol Drug Allergy 3 [facility] Repository (14 sources) Albuterol Drug Allergy 6 [facility] (14 sources) atorvastatin Drug Allergy 6 Diarrhea [facility] (14 sources) Clarithromycin Allergy to substance 6 [facility] (14 sources) ezetimibe Drug Allergy 6 [facility] Healthcare (1 source) Hmg-Coa Reductase Inhibitors (Statins); 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: [ATUMFCU-VGZ-QDG REDUCTASE INHIBITORS] Propensity to adverse reactions to drug (disorder) 4 [facility] 3 Repository (3 sources) Angiotensin-conver ting enzyme inhibitor agent Drug Intolerance 4 Other [facility] Healthcare Work Phone: (3 sources) Other Propensity to adverse reactions 4 Other [facility] Medications Current Medications Medication Drug Class(es) Dates Sig (Normalized) Sig (Original) allopurinol 300 mg oral tablet (20 sources) Xanthine Oxidase Inhibitor Start: 06-22-2022 End: 02-28-2024 take 1 tablet by mouth once daily allopurinol (Zyloprim) 300 MG tablet Indications: Hyperuricemia without signs of inflammatory arthritis and tophaceous disease Take 1 tablet (300 mg) by mouth Daily 90 tablet 1 02/28/2024 Active Start: 04-13-2019 End: 06-22-2022 take 100 mg [...] 2022 12:00am furosemide 40 mg oral tablet (20 sources) Loop Diuretic Start: 09-08-2023 End: 02-28-2024 take 1 tablet by mouth once daily furosemide (Lasix) 40 MG tablet Indications: 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/HCC) Take 1 tablet (40 mg) by mouth Daily 90 tablet 1 02/28/2024 Active Start: 04-13-2019 End: 06-22-2022 take 40 mg by mouth once daily Furosemide Active 40 MG PO Daily June 22, 2022 12:00am glipiZIDE 10 mg oral tablet (20 sources) Sulfonylurea Start: 06-22-2022 End: 08-26-2024 take [...] 2022 3:38am take 1 tablet by raymond th twice daily glipiZIDE ER 10 MG Oral Tablet Extended Release 24 Hour Take 1 tablet twice daily Quantity: 180 Refills: 1 Ordered: 01-Jul-2022 DO Active levothyroxine sodium 0.2 mg oral tablet (20 sources) l-Thyroxine Start: 09-08-2023 End: 08-26-2024 take 1 tablet by mouth once daily levothyroxine (Synthroid, Levoxyl) 200 MCG tablet Indications: Hypothyroidism, unspecified (CMS/HCC) Take 1 tablet (200 mcg) by mouth Daily 90 tablet 1 02/28/2024 08/26/2024 Active Start: 04-13-2019 End: 06-22-2022 take 200 ug by mouth once daily Levothyroxine Active 2 00 MCG PO Daily June 22, 2022 12:00am take 1 capsule by [facility] once daily in the morning Levothyroxine Sodium 200 MCG Oral Capsule TAKE 1 CAPSULE DAILY IN THE MORNING Quantity: 0 Refills: 0 Ordered: 01-Jul-2022 DO Active losartan potassium 100 mg oral tablet (5 sources) Angiotensin 2 Receptor Jazmine Start: 06-22-2022 take 100 mg by mouth once daily Losartan Active 100 MG PO Daily June 22, 2022 12:00am metFORMIN hydrochloride 500 mg oral tablet (20 sources) Biguanide Start: 09-09-2023 End: 04-05-2024 take 1 tablet by mouth in the morning metFORMIN (Glucophage) 500 MG tablet Indications: Type 2 diabetes mellitus without complications (CMS/HCC) Take 1 tablet (500 mg) by mouth in the morning and 1 tablet (500 mg) before bedtime. 180 tablet 1 04/05/2024 Active Start: 04-13-2019 End: 06-22-2022 take 500 mg by mouth twice daily Metformin Active 500 MG PO Twice daily June 22, 2022 12:00am 24 hr metoprolol succinate 50 mg extended release oral tablet (20 sources) beta-Adrenergic Jazmine Start: 05-08-2024 take 3 tablets by mouth once daily metoprolol succinate XL (Toprol-XL) 50 MG 24 hr tablet TAKE 3 TABLETS BY MOUTH ONCE DAILY DO NOT CRUSH OR CHEW 05/08/2024 Active Start: 06-23-2022 take 150 mg by mouth once kt y Metoprolol Succinate Active 150 MG PO Daily 90 30 June 23, 2022 12:00am Start: 06-22-2022 End: 06-23-2022 take 100 mg by mouth once daily Metoprolol Succinate Discontinued 100 MG PO Daily June 22, 2022 12:00am June 23, 2022 12:19pm Start: 04-13-2019 End: 06-22-2022 take 50 mg by mouth once daily Metoprolol Succinate Di scontinued 50 MG PO Daily April 13, 2019 1:00am June 22, 2022 3:38am End: 05-25-2024 take 1 tablet by mouth every twenty-four hours in the morning metoprolol succinate XL (Toprol-XL) 100 MG 24 hr tablet Take 1 tablet by mouth in the morning. 05/25/2024 Discontinued take 3 tablets by mo uth once daily Metoprolol Succinate ER 50 MG Oral Tablet Extended Release 24 Hour TAKE 3 TABLET Daily Quantity: 270 Refills: 0 Ordered: 15-Sep-2022 Joseluis Casey DO Active rivaroxaban 15 mg oral tablet (20 sources) Factor Xa Inhibitor Start: 06-23-2022 End: [...] 2022 12:19pm spironolactone 25 mg oral tablet (14 sources) Aldosterone Antagonist End: 05-25-2024 spironolactone (Aldactone) 25 MG tablet Oral 05/25/2024 Discontinued (Therapy completed) Completed/Discontinued Medications Medication Drug Class(es) Dates Sig [...] 22, 2022 3:38am Per Dr. Baker in [place] instructions 5mg everyday besides Wednesday and Wednesday which then she takes 7.5mg Problems Active Problems Problem Classification Problem Date Documented Da te Episodic/Chronic Acute and unspecified renal failure (3 [...] Onset: 09-23-2022 09-23-2022 Chronic Chronic kidney disease (20 sources) Chronic kidney disease stage 3; 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: [Stage 3 chronic kidney disease] Onset: 04-12-2023 Resolved: 05-25-2024 04-20-2019 Chronic Coagulation and hemorrhagic disorders (20 sources) Factor V Leiden mutation; 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: [Activated protein C resistance] Onset: 04-12-2023 04-20-2019 Chronic Congestive heart failure; nonhypertensive (12 sources) Symptomatic congestive heart failure; 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: [Congestive heart failure, unspecified] Onset: 07-23-2022 Resolved: 05-25-2024 05-25-2024 Chronic Coronary atherosclerosis and other heart disease (20 sources) Coronary arteriosclerosis; 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: [Atherosclerotic heart disease of [place] coronary artery without angina pectoris] Onset: 12-15-2010 Resolved: 05-25-2024 04-13-2019 Chronic Coronary atherosclerosis and other heart disease (7 sources) Presence of coronary angioplasty implant and graft; 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: [Percutaneous transluminal coronary angioplasty status] Onset: 06-23-2022 06-23-2022 Episodic Deficiency and other anemia (3 sources) Anemia; 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: [Anemia, unspecified] 04-15-2019 Episodic Deficiency and other anemia (3 sources) Iron deficiency anemia; 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: [Iron deficiency anemia, unspecified] 04-20-2019 Episodic Diabetes mellitus with complications (20 sources) Type 2 diabetes mellitus with diabetic polyneuropathy; 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: [Type 2 diabetes mellitus with diabetic chronic kidney disease] Onset: 07-03-2021 Chronic Diabetes mellitus without complication (15 sources) Diabetes mellitus; 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: [Type 2 diabetes mellitus without complications] Onset: 12-29-2021 04-20-2019 Chronic Disorders of lipid metabolism (16 sources) Pure hypercholesterolemia , unspecified; 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: [Hyperlipidemia, unspecified] Onset: 12-15-2010 04-12-2023 Chronic Esophageal disorders (3 sources) Esophagitis; 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: [Esophagitis determined by endoscopy] 04-20-2019 Episodic Essential hypertension (20 sources) Hypertensive disorder; 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: [Essential (primary) hypertension] Onset: 12-15-2010 04-20-2019 Chronic Genitourinary symptoms and ill-defined conditions (1 source) Personal history of urinary (tract) infections; 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: [PERS HX URINARY TRACT INFECTIONS] Onset: 06-23-2022 Episodic Gout and other crystal arthropathies (17 sources) Gout; 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: [Gout, unspecified] Onset: 12-15-2010 04-20-2019 Chronic Hypertension with complications and secondary hypertension (1 source) Hypertensive heart disease with heart failure; 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: [HTN HEART DISEASE W/HEART FAIL] Onset: 06-23-2022 Chronic Immunity disorders (5 sources) Secondary immune deficiency disorder; 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: [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 elsewhere] Onset: 05-25-2024 05-25-2024 Chronic Immunizations and screening for infectious disease [...] 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: [Chest pain, unspecified] 04-13-2019 Episodic Osteoarthritis (14 sources) Degenerative joint disease involving multiple joints; 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: [Polyosteoarthritis, unspecified] Onset: 12-15-2010 04-12-2023 Chronic Other aftercare (3 sources) Long-term current use of anticoagulant; 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: [care home (current) use of anticoagulants] 04-20-2019 Episodic Other aftercare (3 sources) terminal carman (current) use of anticoagulants; 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: [Long-term (current) use of anticoagulants] Onset: 06-23-2022 06-23-2022 Episodic Other aftercare (1 source) care home (current) use of oral hypoglycemic drugs; 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: [FDC USE ORAL HYPOGLYCEMIC DX] Onset: 06-23-2022 Episodic Other aftercare (1 source) Other senior living (current) drug therapy; 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: [OTH LEGAL ASSISTANT CURRENT DRUG THERAPY] Onset: 06-23-2022 Episodic Other [...] Chronic Other nutritional; endocrine; and metabolic disorders (11 sources) Morbid obesity; 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: [Morbid (severe) obesity due to excess calories] Onset: 12-15-2010 04-12-2023 Chronic Other nutritional; endocrine; and metabolic disorders (5 sources) Obesity caused by energy imbalance; 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: [Morbid (severe) obesity due to excess calories] Onset: 12-15-2010 05-25-2024 Chronic Other nutritional; endocrine; and metabolic disorders (5 sources) Body mass index 40+ - severely obese; 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: [Body mass index (BMI) 40.0-44.9, adult] Onset: 05-25-2024 05-25-2024 Chronic Other nutritional; endocrine; and metabolic disorders (3 sources) Hyperuricemia without signs of inflammatory arthritis and [...] postprocedural status] 06-23-2022 Episodic Residual codes; unclassified (7 sources) Other specified health status; 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: [Other drug allergy] Onset: 10-19-2023 Episodic Thyroid disorders (20 sources) Hypothyroidism; 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: [Hypothyroidism, unspecified] Onset: 12-15-2010 04-20-2019 Chronic Unclassified (1 source) CHRN KIDNEY DISEASE STG 3 UNSP; 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: [CHRN KIDNEY DISEASE STG 3 UNSP] Onset: 10-01-2021 Past or Other Problems Problem Classification Problem Date Documented Da te Episodic/Chronic Esophageal disorders (14 sources) Gastroesophageal reflux disease; 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: [Gastro-esophageal reflux disease without esophagitis] Onset: 2 Resolved: 5 04-12-2023 Chronic Mood disorders (14 sources) Mood disorders Onset: 4 04-12-2023 Other nutritional; endocrine; and metabolic disorders (1 source) Hyperuricemia without signs of inflammatory arthritis and tophaceous disease; 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: [HU W/O SIGNS IA AND TOPHACEOUS DZ] Onset: 2 Episodic Phlebitis; thrombophlebitis and thromboembolism (15 sources) Personal history of other venous thrombosis and embolism; 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: [H/O: Deep vein thrombosis] Onset: 2 04-12-2023 Episodic Pulmonary heart disease (20 sources) History of arterial thrombosis; 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: [Personal history of pulmonary embolism] Onset: 2 04-20-2019 Episodic Unclassified (2 sources) Never smoked tobacco; 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: [Never a smoker] Results Test Name Value Interpretation Reference Range Facility ALL CBC WITH AUTO DIFFon BASOPHILS ABSOLUTE AUTO 0.1 [facility] Basophils/100 WBC (Bld) 1.1 % 0.2 - 2.0 % [facility] Eosinophils/100 WBC (Bld) 2.9 % 0.9 - 7.0 % [facility] Erythrocyte distribution width (RBC) [Ratio] 13.8 % 11.0 - 15.0 % [facility] Hematocrit (Bld) [Volume fraction] 45.2 % 36.0 - 48.0 % [facility] Hemoglobin (Bld) [Mass/Vol] 14.9 g/dL 12.0 - 16.0 g/dL [facility] IMMATURE GRANULOCYTES ABS AUTO 0.03 [facility] Immature granulocytes/100 WBC (Bld) 0.4 % 0.0 - 0.5 % [facility] LYMPHOCYTES ABSOLUTE [facility] Lymphocytes/100 WBC (Bld) 34.2 % 20.5 - 60.0 % [facility] MCH (RBC) [Entitic mass] 31 pg 26.7 - 34.0 pg [facility] MCHC (RBC) [Mass/Vol] 33 g/dL 29.9 - 35.2 g/dL [facility] MCV (RBC) [Entitic vol] 94.2 fL 81.0 - 99.0 fL [facility] MONOCYTES ABSOLUTE AUTO 0.8 [facility] Monocytes/100 WBC (Bld) 10.3 % 1.7 - 12.0 % [facility] NEUTROPHILS ABSOLUTE AUTO 3.9 [facility] Neutrophils/100 WBC (Bld) 51.1 % 43.0 - 75.0 % [facility] Platelet mean volume (Bld) [Entitic vol] 11.6 fL 9.5 - 13.5 fL [facility] TBH EO # 0.2 [facility] [address]T [address] [facility] RBC 4.8 [facility] WBC 7.6 [facility] Glucose Poct GlucometersOrde red By: Nelson Orourke on 12-28-2023 Glucose [Mass/Vol] 144 mg/dL Normal [facility] Comment on above: Result Comment: [place] Glucose Reference Range is dependent on time and content of last meal. Glucose of more than 200 mg/dL in a nonstressed, ambulatory subject supports the diagnosis of Diabetes Mellitus. PERFORMED BY: [place] [address] PATHOLOGIST OCEANIC SCIENCES PROFESSOR CINDY BRADSHAW M.D. Performed By: #### H S TROP #### [address] Random Glucose Refer ence Range is dependent on time and content of last meal. Glucose of more than 200 mg/dL in a nonstressed, ambulatory subject supports the diagnosis of Diabetes Mellitus. Basic Metabolic PanelOrdered By: Ren Mohan on 12-27-2023 Anion gap [Moles/Vol] 11.7 mmol/L Normal 6.0-15.0 [facility] Comment on above: Performed By: #### G LULS #### Point of Care testing , Calcium [Mass/Vol] 8.6 mg/dL Normal 8.6-10.3 [facility] Comment on above: Performed By: #### G LULS #### Point of Care testing , Chloride [Moles/Vol] 102 mmol/L Normal 98-107 [facility] Comment on above: Performed By: #### G LULS #### Point of Care testing , CO2 [Moles/Vol] 24.9 mmol/L Normal 21.0-31.0 [facility] Comment on above: Performed By: #### G LULS #### Point of Care testing , Creatinine [Mass/Vol] 1.12 mg/dL Normal 0.60-1.20 [facility] Comment on above: Performed By: #### G LULS #### Point of Care testing , Glucose [Mass/Vol] 172 mg/dL High 70-100 [facility] Comment on above: Result Comment: [place] om Glucose Reference Range is dependent on [...] Mellitus. Potassium [Moles/Vol] 3.6 mmol/L Normal 3.5-5.1 [facility] Comment on above: Performed By: #### G LULS #### Point of Care testing , Sodium [Moles/Vol] 135 mmol/L Low 136-145 [facility] Comment on above: Performed By: #### G LULS #### Point of Care testing , Urea nitrogen [Mass/Vol] 38 mg/dL High 7-25 [facility] Comment on above: Performed By: #### G LULS #### Point of Care testing , Basic Metabolic Panelon 10-0 Creatinine Clr Calc Pharmacy 52.61 Normal [facility] Comment on above: Performed By: #### G LULS #### Point of Care testing , GFR/1.73 sq M.predicted MDRD (S/P/Bld) [Vol rate/Area] 47.889 mL/min/{1.73_m2} Normal [facility] Comment on above: Performed By: #### G LULS #### Point of Care testing , Complete Blood Count Auto Di ffOrdered By: Ren Mohan on 12-27-2023 Basophils (Bld) [#/Vol] 0.1 10*3/uL Normal 0.0-0.2 [facility] Comment on above: Result Comment: PERF ORMED BY: [place] [address] PATHOLOGIST OCEANIC SCIENCES PROFESSOR CINDY BRADSHAW M.D. Performed By: #### C BC MG, BMP #### [address] Basophils/100 WBC (Bld) 0.8 % Normal . [facility] Comment on above: Performed By: #### C BC MG, BMP #### [address] Eosinophils (Bld) [#/Vol] 0.2 10*3/uL Normal 0.0-0.45 [facility] Comment on above: Performed By: #### C BC MG, BMP #### [address] Eosinophils/100 WBC (Bld) 3.4 % Normal . [facility] Comment on above: Performed By: #### C BC MG, BMP #### [address] Erythrocyte distribution width (RBC) [Ratio] 14.4 % Normal 11.9-15.3 [facility] Comment on above: Performed By: #### C BC MG, BMP #### [address] Hematocrit (Bld) [Volume fraction] 39.7 % Normal 34.0-46.4 [facility] Comment on above: Performed By: #### C BC MG, BMP #### [address] Hemoglobin (Bld) [Mass/Vol] 13.5 g/dL Normal 11.8-15.4 [facility] Comment on above: Performed By: #### C BC MG, BMP #### [address] [place] [address] [place] Lymphocytes (Bld) [#/Vol] 2.4 10*3/uL Normal 1.00-4.8 [facility] Comment on above: Performed By: #### C BC MG, BMP #### [facility] [address] [place] [address] [place] Lymphocytes/100 WBC (Bld) 34.5 % Normal . [facility] Comment on above: Performed By: #### C BC, MG, BMP #### [facility] [address] [place] [address] [place] MCH (RBC) [Entitic mass] 31.6 pg Normal 24.7-34.3 [facility] Comment on above: Performed By: #### C BC, MG, BMP #### [facility] [address] [place] [address] [place] MCV (RBC) [Entitic vol] 93.2 fL Normal 80-100 [facility] Comment on above: Performed By: #### C BC, MG, BMP #### [facility] [address] [place] [address] [place] Monocytes (Bld) [#/Vol] 0.9 10*3/uL High 0.0-0.8 [facility] Comment on above: Performed By: #### C BC, MG, BMP #### [place] [address] [place] Monocytes/100 WBC (Bld) 12.5 % Normal . [facility] Comment on above: Performed By: #### C BC, MG, BMP #### [facility] [address] [place] [address] [place] Neutrophils (Bld) [#/Vol] 3.5 10*3/uL Normal 1.8-7.7 [facility] Comment on above: Performed By: #### C BC, MG, BMP #### [facility] [address] [place] [address] [place] Neutrophils/100 WBC (Bld) 48.8 % Normal . [facility] Comment on above: Performed By: #### C BC, MG, BMP #### [facility] [address] [place] [address] Platelet mean volume (Bld) [Entitic vol] 9.9 fL Normal 6.3-10.7 [facility] Comment on above: Performed By: #### C BC, MG, BMP #### [address] Platelets (Bld) [#/Vol] 175 10*3/uL Normal 150-450 [facility] Comment on above: Performed By: #### C BC, MG, BMP #### [address] RBC (Bld) [#/Vol] 4.26 10*6/uL Normal 3.60-5.00 [facility] Comment on above: Performed By: #### C BC, MG, BMP #### [address] WBC (Bld) [#/Vol] 7.1 10*3/uL Normal 3.8-11.6 [facility] Comment on above: Performed By: #### C BC, MG, BMP #### [address] Complete Blood Count Auto Di ffon 12-27-2023 Mean Corpuscular HGB Conc 33.9 g/dL Normal 32.0-35.0 [facility] Comment on above: Performed By: #### C BC, MG, BMP #### [address] NRBC% 0.0 /100{WBC} Normal 0-0.5 [facility] Comment on above: Performed By: #### C BC, MG, BMP #### [address] [facility] echo transthoracicon [facility] echo transthoracic [facility] Main [place] [address] [place] [address] Echocardiogram Signed Patient: Mohan Espinoza MR#: [id number] 8 : 1935 Acct:[id number] Age/Sex: 88 / F ADM Date: 12/25/23 Loc: Room: [address] [place] [address] Type: ADM IN Attending Dr: Nelson Orourke DO Ordering Provider: Apryl Shirley MD Date of Service: 12/27/2310/13/1835 [facility] echo transthoracic: Troponin elevation Copies to: MD Apryl Streeter MD A 10:19 AM Patient Location: : 1935 Gender: Female (MM/DD/YYYY) Age: 88 Years Ordering Physician: Apryl Shirley Height: 68 in Weight: 298.065 lb Performed By: SOULEYMANE Solares BSA: 2.42 m2 BP: 148 / 80 mmHg HR: 71 bpm Reason For Study: Troponin elevation History: Anemia. DM. Factor V Leiden. IVC Filter. HTN. [place]. Cancer. Chemotherapy. PE. CABG. PCI. Former Smoke [...] : : 7:58 PM : Transcribed By: JENNIFER Performed At: 12/27/23 1019 Signed By: Jane Carrillo MD 12/27/231957 Normal [facility] Glucose Poct Glucometerson 1 Glucose [Mass/Vol] 220 mg/dL Normal [facility] Comment on above: Result Comment: [facility] Glucose Reference Range is dependent on time and content of last meal. Glucose of more than 200 mg/dL in a nonstressed, ambulatory subject supports the diagnosis of Diabetes Mellitus. PERFORMED BY: [facility] [address] [place] [address] PATHOLOGIST OCEANIC SCIENCES PROFESSOR CINDY BRADSHAW M.D. Performed By: #### G AURELIA #### Point of Care testing , Glucose [Mass/Vol] 242 mg/dL Normal [facility] Comment on above: Result Comment: [facility] Glucose Reference Range is dependent on time and content of last meal. Glucose of more than 200 mg/dL in a nonstressed, ambulatory subject supports the diagnosis of Diabetes Mellitus. PERFORMED BY: [place] [address] PATHOLOGIST OCEANIC SCIENCES PROFESSOR CINDY BRADSHAW M.D. Performed By: #### H S TROP #### [address] Glucose [Mass/Vol] 272 mg/dL Normal [facility] Comment on above: Result Comment: [facility] Glucose Reference Range is dependent on time and content of last meal. Glucose of more than 200 mg/dL in a nonstressed, ambulatory subject supports the diagnosis of Diabetes Mellitus. PERFORMED BY: [place] [address] PATHOLOGIST OCEANIC SCIENCES PROFESSOR CINDY BRADSHAW M.D. Performed By: #### G LULS #### Point of Care testing , Glucose [Mass/Vol] 182 mg/dL Normal [facility] Comment on above: Result Comment: [facility] Glucose Reference Range is dependent on time and content of last meal. Glucose of more than 200 mg/dL in a nonstressed, ambulatory subject supports the diagnosis of Diabetes Mellitus. PERFORMED BY: [place] [address] PATHOLOGIST OCEANIC SCIENCES PROFESSOR CINDY BRADSHAW M.D. Performed By: #### G LULS #### Point of Care testing , Leukocytes [#/volume] correc ruma for nucleated erythrocytes in Blood by Automated counOrdered By: Ren Mohan on 12-27-2023 WBC corrected for nucl RBC Auto (Bld) [#/Vol] 7.1 10*3/uL 3.8-11.6 [facility] MCHC Auto (RBC) [Mass/Vol]Or dered By: Ren Mohan on 12-27-2023 MCHC (RBC) [Mass/Vol] 33.9 g/dL 32.0-35.0 [facility] MagnesiumOrdered By: Ren Mohan on 12-27-2023 Magnesium [Mass/Vol] 1.9 mg/dL Normal 1.9-2.7 [facility] Comment on above: Result Comment: PERF ORMED BY: [place] [address] PATHOLOGIST OCEANIC SCIENCES PROFESSOR CINDY BRADSHAW M.D. Performed By: #### G LULS #### Point of Care testing , No Panel InformationOrdered By: Ren Mohan on 12-27-2023 Estimated GFR (CKD-EPI) 47.889 mL/Min [facility] Creatinine Clearance (Chem 52.61 [facility] Nucleated erythrocytes [Pres ence] in Blood by Automated countOrdered By: Ren Mohan on 12-27-2023 Nucleated RBC Auto Ql (Bld) 0.0 /100{WBC} 0-0.5 [facility] US venous duplex LE BIon US venous duplex LE BI [facility] Main [place] [address] [place] [id number] Ultrasound Report Signed Patient: Mohan Espinoza MR#: [id number] 8 : 1935 Acct:[id number] Age/Sex: 88 / F ADM Date: 12/25/23 Loc: Room: [address] [place] [address] Type: ADM IN Attending Dr: Nelson Orourke [...] Jaxson Cooney MD12/27/2023 2:30 PM Dictation Location: [facility]- Tech: Selena Meade Transcribed By: SANA 12/27/231429 Dictated By: Jaxson Cooney MD 12/27/23 143 Signed By: 12/27/23 143 Normal [facility] Albumin [Mass/volume] in Ser um or Plasma by Bromocresol green (BCG) dye binding methoOrdered By: Apryl Shirley on 12-26-2023 Albumin BCG dye [Mass/Vol] 3.3 g/dL Low 3.5-5.7 [facility] Basic Metabolic Panelon Anion gap [Moles/Vol] 12.7 mmol/L Normal 6.0-15.0 [facility] Comment on above: Performed By: #### H S TROP #### [address] Calcium [Mass/Vol] 8.7 mg/dL Normal 8.6-10.3 [facility] Comment on above: Performed By: #### H S TROP #### [address] Chloride [Moles/Vol] 100 mmol/L Normal 98-107 [facility] Comment on above: Performed By: #### H S TROP #### [place] [address] [place] CO2 [Moles/Vol] 26.1 mmol/L Normal 21.0-31.0 [facility] Comment on above: Performed By: #### H S TROP #### [facility] [address] [place] [address] [place] Creatinine [Mass/Vol] 1.37 mg/dL High 0.60-1.20 [facility] Comment on above: Performed By: #### H S TROP #### [facility] [address] [place] [address] [place] Creatinine Clr Calc Pharmacy 42.97 Normal [facility] Comment on above: Performed By: #### H S TROP #### [place] [address] [place] GFR/1.73 sq M.predicted MDRD (S/P/Bld) [Vol rate/Area] 37.604 mL/min/{1.73_m2} Normal [facility] Comment on above: Performed By: #### H S TROP #### [address] Glucose [Mass/Vol] 180 mg/dL High 70-100 [facility] Comment on above: Result Comment: [facility] Glucose Reference Range is dependent on time and content of last meal. Glucose of more than 200 mg/dL in a nonstressed, ambulatory subject supports the diagnosis of Diabetes Mellitus. ADA recommended reference range Performed By: #### H S TROP #### [address] Potassium [Moles/Vol] 3.8 mmol/L Normal 3.5-5.1 [facility] Comment on above: Performed By: #### H S TROP #### [address] Sodium [Moles/Vol] 135 mmol/L Low 136-145 [facility] Comment on above: Performed By: #### H S TROP #### [address] Urea nitrogen [Mass/Vol] 44 mg/dL High 7-25 [facility] Comment on above: Performed By: #### H S TROP #### [address] Bilirubin.direct [Mass/volum e] in Serum or PlasmaOrdered By: Apryl Shirley on 12-26-2023 Bilirubin.direct [Mass/Vol] 0.10 mg/dL 0.03-0.18 [facility] Complete Blood Count Auto Di ffon 12-26-2023 Basophils (Bld) [#/Vol] 0.0 10*3/uL Normal 0.0-0.2 [facility] Comment on above: Result Comment: PERF ORMED BY: [place] [address] PATHOLOGIST OCEANIC SCIENCES PROFESSOR CINDY BRADSHAW M.D. Performed By: #### H S TROP #### [place] [address] [place] Basophils/100 WBC (Bld) 0.6 % Normal . [facility] Comment on above: Performed By: #### H S TROP #### [place] [address] [place] Eosinophils (Bld) [#/Vol] 0.2 10*3/uL Normal 0.0-0.45 [facility] Comment on above: Performed By: #### H S TROP #### [place] [address] [place] Eosinophils/100 WBC (Bld) 2.2 % Normal . [facility] Comment on above: Performed By: #### H S TROP #### [address] Erythrocyte distribution width (RBC) [Ratio] 14.8 % Normal 11.9-15.3 [facility] Comment on above: Performed By: #### H S TROP #### [address] Hematocrit (Bld) [Volume fraction] 42.0 % Normal 34.0-46.4 [facility] Comment on above: Performed By: #### H S TROP #### [address] Hemoglobin (Bld) [Mass/Vol] 14.1 g/dL Normal 11.8-15.4 [facility] Comment on above: Performed By: #### H S TROP #### [place] [address] [place] Lymphocytes (Bld) [#/Vol] 2.2 10*3/uL Normal 1.00-4.8 [facility] Comment on above: Performed By: #### H S TROP #### [place] [address] [place] Lymphocytes/100 WBC (Bld) 30.0 % Normal . [facility] Comment on above: Performed By: #### H S TROP #### [address] MCH (RBC) [Entitic mass] 31.5 pg Normal 24.7-34.3 [facility] Comment on above: Performed By: #### H S TROP #### [address] MCV (RBC) [Entitic vol] 93.9 fL Normal 80-100 [facility] Comment on above: Performed By: #### H S TROP #### [address] Mean Corpuscular HGB Conc 33.6 g/dL Normal 32.0-35.0 [facility] Comment on above: Performed By: #### H S TROP #### [address] Monocytes (Bld) [#/Vol] 0.9 10*3/uL High 0.0-0.8 [facility] Comment on above: Performed By: #### H S TROP #### [address] Monocytes/100 WBC (Bld) 12.2 % Normal . [facility] Comment on above: Performed By: #### H S TROP #### [address] Neutrophils (Bld) [#/Vol] 4.1 10*3/uL Normal 1.8-7.7 [facility] Comment on above: Performed By: #### H S TROP #### [address] Neutrophils/100 WBC (Bld) 55.0 % Normal . [facility] Comment on above: Performed By: #### H S TROP #### [address] NRBC% 0.2 /100{WBC} Normal 0-0.5 [facility] Comment on above: Performed By: #### H S TROP #### [address] Platelet mean volume (Bld) [Entitic vol] 10.1 fL Normal 6.3-10.7 [facility] Comment on above: Performed By: #### H S TROP #### [facility] [address] [id number] [place] Platelets (Bld) [#/Vol] 168 10*3/uL Normal 150-450 [facility] Comment on above: Performed By: #### H S TROP #### [facility] [address] [id number] [facility] RBC (Bld) [#/Vol] 4.47 10*6/uL Normal 3.60-5.00 [facility] Comment on above: Performed By: #### H S TROP #### [facility] [address] [id number] [place] WBC (Bld) [#/Vol] 7.4 10*3/uL Normal 3.8-11.6 [facility] Comment on above: Performed By: #### H S TROP #### [address] ECG 12 lead ECGon 12-26-2023 ECG 12 lead ECG [facility] Main [place] [address] [place] [address] Electrocardiograph Report Signed Patient: Mohan Espinoza MR#: [id number] 8 : 1935 Acct:[id number] Age/Sex: 88 / F ADM Date: 12/25/23 Loc: Room: [address] [place] [address] Type: ADM IN Attending Dr: Apryl Shirley [...] QT Abnormal ECG Confirmed by Nubia Holley ([id number]) on 12/26/2023 3:04:05 PM Referred By: Electronically Signed By: Nubia Holley Transcribed By: MUS Signed By Nubia Holley MD 4 1504 Normal [facility] Glucose Poct Glucometerson 1 Glucose [Mass/Vol] 287 mg/dL Normal [facility] Comment on above: Result Comment: [place] Glucose Reference Range is dependent on time and content of last meal. Glucose of more than 200 mg/dL in a nonstressed, ambulatory subject supports the diagnosis of Diabetes Mellitus. PERFORMED BY: [place] [address] PATHOLOGIST OCEANIC SCIENCES PROFESSOR CINDY BRADSHAW M.D. Performed By: #### H S TROP #### [address] Glucose [Mass/Vol] 217 mg/dL Normal [facility] Comment on above: Result Comment: [facility] Glucose Reference Range is dependent on time and content of last meal. Glucose of more than 200 mg/dL in a nonstressed, ambulatory subject supports the diagnosis of Diabetes Mellitus. PERFORMED BY: [place] [address] PATHOLOGIST OCEANIC SCIENCES PROFESSOR CINDY BRADSHAW M.D. Performed By: #### G LULS #### Point of Care testing , Glucose [Mass/Vol] 286 mg/dL Normal [facility] Comment on above: Result Comment: [facility] Glucose Reference Range is dependent on time and content of last meal. Glucose of more than 200 mg/dL in a nonstressed, ambulatory subject supports the diagnosis of Diabetes Mellitus. PERFORMED BY: [place] [address] PATHOLOGIST OCEANIC SCIENCES PROFESSOR CINDY BRADSHAW M.D. Performed By: #### G LULS #### Point of Care testing , Glucose [Mass/Vol] 155 mg/dL Normal [facility] Comment on above: Result Comment: [facility] Glucose Reference Range is dependent on time and content of last meal. Glucose of more than 200 mg/dL in a nonstressed, ambulatory subject supports the diagnosis of Diabetes Mellitus. PERFORMED BY: [place] [id number] PATHOLOGIST OCEANIC SCIENCES PROFESSOR CINDY BRADSHAW M.D. Performed By: #### G LULS #### Point of Care testing , Hepatic Panelon 12-26-2023 Albumin [Mass/Vol] 3.3 g/dL Low 3.5-5.7 [facility] Comment on above: Performed By: #### H S TROP #### [address] Bilirubin,Indirect 0.4 mg/dL Normal [facility] Comment on above: Performed By: #### H S TROP #### [address] Bilirubin.indirect [Mass/Vol] 0.10 mg/dL Normal 0.03-0.18 [facility] Comment on above: Performed By: #### H S TROP #### [address] Hepatic PanelOrdered By: Dhara Shirley on 12-26-2023 Albumin/Globulin [Mass ratio] 1.0 {ratio} Normal [facility] Comment on above: Performed By: #### H S TROP #### [address] ALP [Catalytic activity/Vol] 77 U/L Normal 34-104 [facility] Comment on above: Performed By: #### H S TROP #### [address] ALT [Catalytic activity/Vol] 11 U/L Normal 7-52 [facility] Comment on above: Performed By: #### H S TROP #### [address] AST [Catalytic activity/Vol] 17 U/L Normal 13-39 [facility] Comment on above: Performed By: #### H S TROP #### [address] Bilirubin [Mass/Vol] 0.5 mg/dL Normal 0.3-1.0 [facility] Comment on above: Performed By: #### H S TROP #### [address] Globulin (S) [Mass/Vol] 3.4 g/dL Normal [facility] Comment on above: Performed By: #### H S TROP #### [address] Protein [Mass/Vol] 6.7 g/dL Normal 6.4-8.9 [facility] Comment on above: Performed By: #### H S TROP #### [facility] [address] [place] [address] Magnesiumon 12-26-2023 Magnesium [Mass/Vol] 2.1 mg/dL Normal 1.9-2.7 [facility] Comment on above: Performed By: #### H S TROP #### [address] Serum or plasma non-glucuron idated bilirubin measurement (mass/volume)Ordered By: Apryl Shirley on 12-26-2023 Bilirubin.indirect [Mass/Vol] 0.4 mg/dL [facility] Thyroid Stimulating HormoneO rdered By: Ren Mohan on 12-26-2023 TSH Qn 0.61 m[IU]/L Normal 0.45-5.33 [facility] Comment on above: Result Comment: PERF ORMED BY: [place] [address] PATHOLOGIST OCEANIC SCIENCES PROFESSOR CINDY BRADSHAW M.D. Performed By: #### H S TROP #### [address] Troponin I High Sensitivityo n 12-26-2023 Troponin I High Sensitivity 73.3 pg/mL Off scale high 0.0-15.0 [facility] Comment on above: Result Comment: Crit ical Result : Called to and read back by: CLAUDIA ARELLANO at: 12/26/2023 07:38:15 by:SPENCER PERFORMED BY: [place] [address] PATHOLOGIST OCEANIC SCIENCES PROFESSOR CINDY BRADSHAW M.D. Performed By: #### H S TROP #### [address] Troponin I.cardiac [Mass/vol ume] in Serum or Plasma by Detection limit <= 0.01 ng/Ordered By: Apryl Shirley on 12-26-2023 Troponin I.cardiac DL <= 0.01 ng/mL [Mass/Vol] 73.3 pg/mL High 0.0-15.0 [facility] Comment on above: Critical Result : Ca lled to and read back by: CLAUDIA ARELLANO at: 12/26/2023 07:38:15 by:SPENCER XR chest 1V portableon 12-25 XR chest 1V portable [facility] Main [address] [address] XRay Report Signed Patient: Mohan Espinoza MR#: [id number] 8 : 1935 Acct:[id number] Age/Sex: 88 / F ADM Date: 12/25/23 Loc: Room: [address] [place] [address] Type: ADM IN Attending Dr: Apryl Shirley [...] FINDINGS Impression dictated by: Ck Dove Jr., D.O.12/26/2023 9:37 AM Dictation Location: [place] [address] Transcribed By: [facility] 12/26/23936 Dictated By: Ck Dove Jr DO 12/26/23935 Signed By: 12/26/23936 Normal [facility] A1C with Estimated Average G rosalva 12-25-2023 Glucose [Mass/Vol] 177 mg/dL Normal [facility] Comment on above: Result Comment: PERF ORMED BY: [place] [address] PATHOLOGIST OCEANIC SCIENCES PROFESSOR CINDY BRADSHAW M.D. Performed By: #### H S TROP #### [facility] [address] [id number] [facility] A1C with Estimated Average G luOrdered By: Ren Mohan on 12-25-2023 HbA1c (Bld) [Mass fraction] 7.8 % High 4.3-5.6 [facility] Comment on above: Result Comment: Incr eased risk for diabetes: 5.7 - 6.4 diabetes: >6.4 glycemic control for adults with diabetes: <7.0 Performed By: #### H S TROP #### [facility] [address] [id number] [facility] Increased risk for d iabetes: 5.7 - 6.4diabetes: >6.4glycemic control for adults with diabetes: <7.0 Activated partial thrombopla stin time (aPTT) in platelet poor plasma by coagulation aOrdered By: Ren Mohan on 12-25-2023 aPTT Coag (PPP) [Time] 33.2 s 25.1-36.5 [facility] Comment on above: A hematocrit value g reater than 55% may lead to inaccurate results in coagulation testing. Patients having hematocrit values >55% require a special collection tube for coagulation studies. Please contact the laboratory at [phone] for redraw instructions. Basic Metabolic Panelon Anion gap [Moles/Vol] 14.8 mmol/L Normal 6.0-15.0 [facility] Comment on above: Order Comment: FASTI NG N Performed By: #### G LULS #### Point of Care testing , Calcium [Mass/Vol] 8.5 mg/dL Low 8.6-10.3 [facility] Comment on above: Order Comment: FASTI NG N Performed By: #### G LULS #### Point of Care testing , Chloride [Moles/Vol] 99 mmol/L Normal 98-107 [facility] Comment on above: Order Comment: FASTI NG N Performed By: #### G LULS #### Point of Care testing , CO2 [Moles/Vol] 25.5 mmol/L Normal 21.0-31.0 [facility] Comment on above: Order Comment: FASTI NG N Performed By: #### G LULS #### Point of Care testing , Creatinine [Mass/Vol] 1.84 mg/dL High 0.60-1.20 [facility] Comment on above: Order Comment: FASTI NG N Performed By: #### G LULS #### Point of Care testing , Creatinine Clr Calc Pharmacy 31.63 Normal [facility] Comment on above: Order Comment: FASTI NG N Performed By: #### G LULS #### Point of Care testing , GFR/1.73 sq M.predicted MDRD (S/P/Bld) [Vol rate/Area] 26.395 mL/min/{1.73_m2} Normal [facility] Comment on above: Order Comment: FASTI NG N Performed By: #### G LULS #### Point of Care testing , Glucose [Mass/Vol] 258 mg/dL High 70-100 [facility] Comment on above: Order Comment: FASTI NG N Result Comment: [place] Glucose Reference Range is dependent on time and content of last meal. Glucose of more than 200 mg/dL in a nonstressed, ambulatory subject supports the diagnosis of Diabetes Mellitus. ADA recommended reference range Performed By: #### G LULS #### Point of Care testing , Potassium [Moles/Vol] 4.3 mmol/L Normal 3.5-5.1 [facility] Comment on above: Order Comment: FASTI NG N Performed By: #### G LULS #### Point of Care testing , Sodium [Moles/Vol] 135 mmol/L Low 136-145 [facility] Comment on above: Order Comment: FASTI NG N Performed By: #### G LULS #### Point of Care testing , Urea nitrogen [Mass/Vol] 45 mg/dL High 7-25 [facility] Comment on above: Order Comment: FASTI NG N Performed By: #### G LULS #### Point of Care testing , BioFire Not Detectedon 12-24 BioFire Not Detected Not detected Normal Not Detecte [facility] Comment on above: Result Comment: This is a duplicate RP2.1 COVID (PCR) result to be used for statistical tracking purpose only. PERFORMED BY: [place] [address] [address] [id number] PATHOLOGIST OCEANIC SCIENCES PROFESSOR CINDY BRADSHAW M.D. Performed By: #### G LULS #### Point of Care testing , Blood Cultureon 12-25-2023 Bacteria identified Cx Nom (Bld) NO GROWTH 5 DAYS PERFORMED BY: [address] [place] [address] PATHOLOGIST OCEANIC SCIENCES PROFESSOR CINDY BRADSHAW M.D. Normal [facility] Comment on above: Performed By: #### G LULS #### Point of Care testing , COVID-19 Detected/Not Detect edOrdered By: Ren Mohan on 12-25-2023 SARS-CoV-2 (COVID-19) RNA COLIN+non-probe Ql (Nph) Not detected Not Detecte [facility] Comment on above: This is a duplicate RP2.1 COVID (PCR) result to be used for statistical tracking purpose only. Cholesterol in LDL Calc [Mas s/Vol]Ordered By: Ren Mohan on 12-25-2023 Cholesterol in LDL [Mass/Vol] 115 mg/dL High 0-100 [facility] Comment on above: LDL ATP III CLASSIFI CATIONLDL less than 100 mg/dL OptimalLDL 100-129 mg/dL Near or above optimalLDL 130-159 mg/dL Borderline highLDL 160-189 mg/dL HighLDL greater than 189 mg/dL Very high Cholesterol in VLDL Calc [Ma ss/Vol]Ordered By: Ren Mohan on 12-25-2023 Cholesterol in VLDL [Mass/Vol] 23 mg/dL [facility] Complete Blood Count Auto Di ffon 12-25-2023 Basophils (Bld) [#/Vol] 0.1 10*3/uL Normal 0.0-0.2 [facility] Comment on above: Result Comment: PERF ORMED BY: [place] [address] [address] [id number] PATHOLOGIST OCEANIC SCIENCES PROFESSOR CINDY BRADSHAW M.D. Performed By: #### G LULS #### Point of Care testing , Basophils/100 WBC (Bld) 0.5 % Normal . [facility] Comment on above: Performed By: #### G LULS #### Point of Care testing , Eosinophils (Bld) [#/Vol] 0.0 10*3/uL Normal 0.0-0.45 [facility] Comment on above: Performed By: #### G LULS #### Point of Care testing , Eosinophils/100 WBC (Bld) 0.0 % Normal . [facility] Comment on above: Performed By: #### G LULS #### Point of Care testing , Erythrocyte distribution width (RBC) [Ratio] 14.7 % Normal 11.9-15.3 [facility] Comment on above: Performed By: #### G LULS #### Point of Care testing , Hematocrit (Bld) [Volume fraction] 42.8 % Normal 34.0-46.4 [facility] Comment on above: Performed By: #### G LULS #### Point of Care testing , Hemoglobin (Bld) [Mass/Vol] 14.4 g/dL Normal 11.8-15.4 [facility] Comment on above: Performed By: #### G LULS #### Point of Care testing , Lymphocytes (Bld) [#/Vol] 1.5 10*3/uL Normal 1.00-4.8 [facility] Comment on above: Performed By: #### G LULS #### Point of Care testing , Lymphocytes/100 WBC (Bld) 9.8 % Normal . [facility] Comment on above: Performed By: #### G LULS #### Point of Care testing , MCH (RBC) [Entitic mass] 31.4 pg Normal 24.7-34.3 [facility] Comment on above: Performed By: #### G LULS #### Point of Care testing , MCV (RBC) [Entitic vol] 93.2 fL Normal 80-100 [facility] Comment on above: Performed By: #### G LULS #### Point of Care testing , Mean Corpuscular HGB Conc 33.7 g/dL Normal 32.0-35.0 [facility] Comment on above: Performed By: #### G LULS #### Point of Care testing , Monocytes (Bld) [#/Vol] 0.7 10*3/uL Normal 0.0-0.8 [facility] Comment on above: Performed By: #### G LULS #### Point of Care testing , Monocytes/100 WBC (Bld) 5.0 % Normal . [facility] Comment on above: Performed By: #### G LULS #### Point of Care testing , Neutrophils (Bld) [#/Vol] 12.6 10*3/uL High 1.8-7.7 [facility] Comment on above: Performed By: #### G LULS #### Point of Care testing , Neutrophils/100 WBC (Bld) 84.7 % Normal . [facility] Comment on above: Performed By: #### G LULS #### Point of Care testing , NRBC% 0.1 /100{WBC} Normal 0-0.5 [facility] Comment on above: Performed By: #### G LULS #### Point of Care testing , Platelet mean volume (Bld) [Entitic vol] 10.1 fL Normal 6.3-10.7 [facility] Comment on above: Performed By: #### G LULS #### Point of Care testing , Platelets (Bld) [#/Vol] 187 10*3/uL Normal 150-450 [facility] Comment on above: Performed By: #### G LULS #### Point of Care testing , RBC (Bld) [#/Vol] 4.59 10*6/uL Normal 3.60-5.00 [facility] Comment on above: Performed By: #### G LULS #### Point of Care testing , WBC (Bld) [#/Vol] 14.9 10*3/uL High 3.8-11.6 [facility] Comment on above: Performed By: #### G LULS #### Point of Care testing , Creatine KinaseOrdered By: Willem Mohan on 12-25-2023 CK [Catalytic activity/Vol] 52 U/L Normal 30-223 [facility] Comment on above: Performed By: #### G LULS #### Point of Care testing , Glucose Poct Glucometerson 1 Glucose [Mass/Vol] 232 mg/dL Normal [facility] Comment on above: Result Comment: [facility] Glucose Reference Range is dependent on time and content of last meal. Glucose of more than 200 mg/dL in a nonstressed, ambulatory subject supports the diagnosis of Diabetes Mellitus. PERFORMED BY: [place] [address] PATHOLOGIST OCEANIC SCIENCES PROFESSOR CINDY BRADSHAW M.D. Performed By: #### G LULS #### Point of Care testing , Glucose [Mass/Vol] 213 mg/dL Normal [facility] Comment on above: Result Comment: [facility] Glucose Reference Range is dependent on time and content of last meal. Glucose of more than 200 mg/dL in a nonstressed, ambulatory subject supports the diagnosis of Diabetes Mellitus. PERFORMED BY: [place] [id number] PATHOLOGIST OCEANIC SCIENCES PROFESSOR CINDY BRADSHAW M.D. Performed By: #### G LULS #### Point of Care testing , Glucose [Mass/Vol] 252 mg/dL Normal [facility] Comment on above: Result Comment: [facility] Glucose Reference Range is dependent on time and content of last meal. Glucose of more than 200 mg/dL in a nonstressed, ambulatory subject supports the diagnosis of Diabetes Mellitus. PERFORMED BY: [place] [address] PATHOLOGIST OCEANIC SCIENCES PROFESSOR CINDY BRADSHAW M.D. Performed By: #### G LULS #### Point of Care testing , Glucose [Mass/Vol] 202 mg/dL Normal [facility] Comment on above: Result Comment: [facility] Glucose Reference Range is dependent on time and content of last meal. Glucose of more than 200 mg/dL in a nonstressed, ambulatory subject supports the diagnosis of Diabetes Mellitus. PERFORMED BY: [place] [id number] PATHOLOGIST OCEANIC SCIENCES PROFESSOR CINDY BRADSHAW M.D. Performed By: #### G LULS #### Point of Care testing , Glucose mean value [Mass/vol ume] in Blood Estimated from glycated hemoglobinOrdered By: Ren Mohan on 12-25-2023 Average glucose Estimated from glycated hemoglobin (Bld) [Mass/Vol] 177 mg/dL [facility] Lipid PanelOrdered By: Nik Mohan on 12-25-2023 Cholesterol [Mass/Vol] 166 mg/dL Normal 140-200 [facility] Comment on above: Order Comment: FASTI [...] in HDL [Mass/Vol] 27 mg/dL Normal 23-92 [facility] Comment on above: Order Comment: FASTI NG [...] HDL [Mass ratio] 6.1 {ratio} Normal <5.0 [facility] Comment on above: Order Comment: FASTI NG N Result Comment: PERF ORMED BY: [facility] [address] [place] [address] PATHOLOGIST OCEANIC SCIENCES PROFESSOR CINDY BRADSHAW M.D. Performed By: #### G LULS #### Point of Care testing , Lipid Panelon 12-25-2023 LDL Cholesterol,Calculated 115 mg/dL High 0-100 [facility] Comment on above: Order Comment: FASTI NG N Result Comment: LDL ATP III CLASSIFICATION LDL less than 100 mg/dL Optimal LDL 100-129 mg/dL Near or above optimal LDL 130-159 mg/dL Borderline high LDL 160-189 mg/dL High LDL greater than 189 mg/dL Very high Performed By: #### G LULS #### Point of Care testing , Triglyceride w/Reflex 118 mg/dL Normal 0-149 [facility] Comment on above: Order Comment: [...] , VLDL CHOLESTEROL 23 mg/dL Normal [facility] Comment on above: Order Comment: FASTI NG N Performed By: #### G LULS #### Point of Care testing , Magnesiumon 12-25-2023 Magnesium [Mass/Vol] 1.3 mg/dL Low 1.9-2.7 [facility] Comment on above: Order Comment: FASTI NG N Performed By: #### G LULS #### Point of Care testing , Partial Thromboplastin Timeo n 12-25-2023 aPTT Coag (Bld) [Time] 33.2 s Normal 25.1-36.5 [facility] Comment on above: Result Comment: A he matocrit value greater than 55% may lead to inaccurate results in coagulation testing. Patients having hematocrit values >55% require a special collection tube for coagulation studies. Please contact the laboratory at [phone] for redraw instructions. PERFORMED BY: [place] [address] PATHOLOGIST OCEANIC SCIENCES PROFESSOR CINDY BRADSHAW M.D. Performed By: #### P TT #### [address] Prothrombin Time INROrdered By: Ren Mohan on 12-25-2023 INR Coag (PPP) [Relative time] 1.2 {INR} Normal [facility] Comment on above: Result Comment: INR Therapeutic [...] heart valves: 3 - 4.5 PERFORMED BY: [facility] [place] [address] PATHOLOGIST OCEANIC SCIENCES PROFESSOR CINDY BRADSHAW M.D. Performed By: #### G [...] Coag (PPP) [Time] 14.1 s High 9.0-12.9 [facility] Comment on above: Result Comment: A he matocrit value greater than 55% may lead to inaccurate results in coagulation testing. Patients having hematocrit values >55% require a special collection tube for coagulation studies. Please contact the laboratory at [phone] for redraw instructions. Performed By: #### G LULS #### Point of Care testing , A hematocrit value g reater than 55% may lead to inaccurate results in coagulation testing. Patients having hematocrit values >55% require a special collection tube for coagulation studies. Please contact the laboratory at [phone] for redraw instructions. Respiratory (Upper) Panel, P [...] A H3 Blank Space -- PERFORMED BY: [facility] [address] [place] [place] [address] PATHOLOGIST OCEANIC SCIENCES PROFESSOR CINDY BRADSHAW M.D. Normal [facility] Comment on above: Performed By: #### G LULS #### Point of Care testing , Respiratory pathogens DNA an d RNA panel - Nasopharynx by COLIN with non-probe detectionOrdered By: Ren Mohan on 12-25-2023 Respiratory pathogens DNA and RNA panel COLIN+non-probe (Nph) [facility] Triglyceride [Mass/volume] i n Serum or PlasmaOrdered By: Ren Mohan on 12-25-2023 Triglyceride [Mass/Vol] 118 mg/dL 0-149 [facility] Comment on above: TRIG ATP III CLASSIF ICATIONTRIG less than 150 mg/dL NormalTRIG 150-199 mg/dL Borderline highTRIG 200-500 mg/dL High TRIG greater than 500 mg/dL Very highStandard traceable to the Center for Disease Conrtrol and Prevention (CDC) test method. Troponin I High Sensitivityo n 12-25-2023 Troponin I High Sensitivity 282.7 pg/mL Off scale high 0.0-15.0 [facility] Comment on above: Result Comment: Crit ical Result : Called to and read back by: ARMANI GUDINO at: 12/25/2023 07:36:52 by:SPENCER PERFORMED BY: [facility] [address] [place] [address] PATHOLOGIST OCEANIC SCIENCES PROFESSOR CINDY BRADSHAW M.D. Performed By: #### G [...] Aminotransferase, Serum; Status:Active - Retrospective Authorization; Requested for:[id number]; AST; Status:Active - Retrospective Authorization; Requested for:[id number]; Basic Metabolic Panel; Status:Active - Retrospective Authorization; Requested for:[id number]; Lipid Panel; Status:Active - Retrospective Authorization; Requested for:[id number]; SocHx: Never a smoker Tobacco Use Screening; Status:Complete; Done: [id number] Patient Instructions Please bring all medicines, vitamins, [...] try to obtain most recent labs at [facility] in last two weeks if no [...] By: Yoan Dobbs MD (Gastroenterology) History of [place] filter placement Past Medical History Problems History [...] negative for complaint. Vitals Vital Signs Recorded: [id number] 09:09AM Heart Rate56 [id number], LUE, Sitting Rzxtquhrr69, LUE, Sitting Height5 ft 8 in Tobacco [...] (more content not included)... Normal [facility] CARDIAC STRESS/REST INJE CTIONon 07-23-2022 [facility] CARDIAC STRESS/REST INJECTION Patient Name: MOHAN ESPINOZA STUDY: MYOCARDIAL PERFUSION STRESS TEST WITH LEXISCAN Performing facility: [facility], [address] [place] [address], [address], [address] Provider: Leanna Casey DO, FACC PCP: Dr. Ruben Schultz Supervising provider: Yu Barriga MD, FACC INDICATION: A-fib ASHD CHF HISTORY: Gender: F; Age: 87 y/o ; Height: 0 cm; Weight: 076.1088577 kg. CAD; Diabetes; Previous [place]; Arrhythmias; Denies smoking. CABG on 2007. COMPARISON: No comparison. ACCESSION NUMBER(S): [id number]; [id number]; [id number] ORDERING CLINICIAN: JOSELUIS CASEY TECHNIQUE: TWO DAY [...] Electronically signed by: STEPHANIE HANCOCK MD Normal [facility] Height or Weight NOT Doneon 07-01-2022 Adult depression screening assessment Yes [facility] [employer] 250 DO Work Phone: Adult depression screening assessment Moderately Severe (15-19) [facility] [employer] 250 DO Work Phone: Fall risk assessment a) No falls within the last year [facility] [employer] 250 DO Work Phone: Tobacco use status CPHS b) No [facility] [employer] 250 DO Work Phone: Height or Weight NOT Done 3-Nearly every day [facility] [employer] 250 DO Work Phone: Height or Weight NOT Done 1-Several days [facility] [employer] [employer] 250 DO Work Phone: Height or Weight NOT Done 0-Not at all [facility] [employer] 250 DO Work Phone: Height or Weight NOT Done Very Difficult [facility] [employer] 250 DO Work Phone: Office Visit (Cardiology)on [...] Order; Status:Hold For - Scheduling,Retrospective Authorization; Requested for:[id number]; Radiologist to Determine Optimal Study : Y What are the patient's signs and symptoms? : cad afib Afib, ASHD (arteriosclerotic heart disease), CHF (congestive heart failure), NYHA class III, Ischemic cardiomyopathy Basic Metabolic Panel; Status:Active - Retrospective Authorization; Requested for:[id number]; Brain Natriuretic Peptide BNP; Status:Active - Retrospective Authorization; Requested for:[id number]; Health Maintenance Depression Follow-up Visit Outpatient Follow-up Status: Complete - Retrospective Authorization Done: 01Jul2022 SocHx: Never a smoker Tobacco Use Screening; Status:Complete; Done: [id number] Tobacco Use Screening; Status:Complete; Done: [id number] Patient Instructions Please bring all medicines, vitamins, and herbal supplements with you when you come to the office. Prescriptions will not be filled unless you are compliant with your follow up appointments or have a follow up appointment scheduled as per instruction of your physician. Refills should be requested at the time of your visit. Follow up in [12 ] weeks Chief Complaint [facility] [place]. 86-year-old female returns for follow-up [...] By: Yoan Dobbs MD (Gastroenterology) History of [place] filter placement Past Medical History Problems History [...] Recorded: 01Jul2022 09:34AM Heart Rate68, L Radial [id number], RUE, Sitting Szqhkmsqo50, RUE, Sitting Height5 ft 8 in Height or Weight NOT Done (more content not included)... Normal [facility]works Calcium [Mass/volume] in Ser um or PlasmaOrdered By: Brissa Hoffman on 06-29-2022 Calcium [Mass/Vol] 8.8 mg/dL 8.6-10.3 [facility] Carbon dioxide, total [Moles /volume] in Serum or PlasmaOrdered By: Brissa Hoffman on 06-29-2022 CO2 [Moles/Vol] 32.3 mmol/L 21.0-31.0 [facility] Chloride [Moles/volume] in S octaviano or PlasmaOrdered By: Brissa Hoffman on 06-29-2022 Chloride [Moles/Vol] 100 mmol/L 98-107 [facility] Creatinine [Mass/volume] in Serum or PlasmaOrdered By: Brissa Hoffman on 06-29-2022 Creatinine [Mass/Vol] 1.66 mg/dL 0.60-1.20 [facility] Glucose [Mass/volume] in Ser um or PlasmaOrdered By: Brissa Hoffman on 06-29-2022 Glucose [Mass/Vol] 245 mg/dL 70-100 [facility] Comment on above: ADA recommended refe rence rangeRandom Glucose Reference Range is dependent on time and content of last meal. Glucose of more than 200 mg/dL in a nonstressed, ambulatory subject supports the diagnosis of Diabetes Mellitus. No Panel InformationOrdered By: Brissa Hoffman on 06-29-2022 Estimated GFR (CKD-EPI) 30.239 mL/Min [facility] Creatinine Clearance (Chem N/A [facility] Potassium [Moles/volume] in Serum or PlasmaOrdered By: Brissa Hoffman on 06-29-2022 Potassium [Moles/Vol] 4.6 mmol/L 3.5-5.1 [facility] Serum or plasma anion gap de terminationOrdered By: Brissa Hoffman on 06-29-2022 Anion gap [Moles/Vol] 9.3 mmol/L 6.0-15.0 [facility] Sodium [Moles/volume] in Ser um or PlasmaOrdered By: Brissa Hoffman on 06-29-2022 Sodium [Moles/Vol] 137 mmol/L 136-145 [facility] Urea nitrogen [Mass/volume] in Serum or PlasmaOrdered By: Brissa Hoffman on 06-29-2022 Urea nitrogen [Mass/Vol] 31 mg/dL 7-25 [facility] Basophils Auto (Bld) [#/Vol] Ordered By: Brissa Hoffman on 06-23-2022 Basophils (Bld) [#/Vol] 0.1 10*3/uL 0.0-0.2 [facility] Basophils/100 WBC Auto (Bld) Ordered By: Brissa Hoffman on 06-23-2022 Basophils/100 WBC (Bld) 1.0 % . [facility] Calcium [Mass/volume] in Ser um or PlasmaOrdered By: Sharron Casey on 06-23-2022 Calcium [Mass/Vol] 8.7 mg/dL 8.6-10.3 [facility] Carbon dioxide, total [Moles /volume] in Serum or PlasmaOrdered By: Sharron Casey on 06-23-2022 CO2 [Moles/Vol] 26.3 mmol/L 21.0-31.0 [facility] Chloride [Moles/volume] in S octaviano or PlasmaOrdered By: Sharron Casey on 06-23-2022 Chloride [Moles/Vol] 102 mmol/L 98-107 [facility] Creatine kinase [Enzymatic a ctivity/volume] in Serum or PlasmaOrdered By: Sharron Casey on 06-23-2022 CK [Catalytic activity/Vol] 74 U/L 30-223 [facility] Creatinine [Mass/volume] in Serum or PlasmaOrdered By: Sharron Casey on 06-23-2022 Creatinine [Mass/Vol] 1.44 mg/dL 0.60-1.20 [facility] Eosinophils Auto (Bld) [#/Vo l]Ordered By: Brissa Hoffman on 06-23-2022 Eosinophils (Bld) [#/Vol] 0.1 10*3/uL 0.0-0.45 [facility] Eosinophils/100 WBC Auto (Bl d)Ordered By: Brissa Hoffman on 06-23-2022 Eosinophils/100 WBC (Bld) 1.8 % . [facility] Erythrocyte distribution wid th Auto (RBC) [Ratio]Ordered By: Brissa Hoffman on 06-23-2022 Erythrocyte distribution width (RBC) [Ratio] 14.7 % 11.9-15.3 [facility] Glucose Glucometer (BldC) [M ass/Vol]Ordered By: Brissa Hoffman on 06-23-2022 Glucose [Mass/Vol] 230 mg/dL [facility] Comment on above: Random Glucose Refer ence Range is dependent on time and content of last meal. Glucose of more than 200 mg/dL in a nonstressed, ambulatory subject supports the diagnosis of Diabetes Mellitus. Glucose [Mass/volume] in Ser um or PlasmaOrdered By: Sharron Casey on 06-23-2022 Glucose [Mass/Vol] 255 mg/dL 70-100 [facility] Comment on above: ADA recommended refe rence rangeRandom Glucose Reference Range is dependent on time and content of last meal. Glucose of more than 200 mg/dL in a nonstressed, ambulatory subject supports the diagnosis of Diabetes Mellitus. Hematocrit Auto (Bld) [Volum e fraction]Ordered By: Brissa Hoffman on 06-23-2022 Hematocrit (Bld) [Volume fraction] 41.2 % 34.0-46.4 [facility] Hemoglobin [Mass/volume] in BloodOrdered By: Brissa Hoffman on 06-23-2022 Hemoglobin (Bld) [Mass/Vol] 13.6 g/dL 11.8-15.4 [facility] Leukocytes [#/volume] correc ruma for nucleated erythrocytes in Blood by Automated counOrdered By: Brissa Hoffman on 06-23-2022 WBC corrected for nucl RBC Auto (Bld) [#/Vol] 6.4 10*3/uL 3.8-11.6 [facility] Lymphocytes Auto (Bld) [#/Vo l]Ordered By: Brissa Hoffman on 06-23-2022 Lymphocytes (Bld) [#/Vol] 1.6 10*3/uL 1.00-4.8 [facility] Lymphocytes/100 WBC Auto (Bl d)Ordered By: Brissa Hoffman on 06-23-2022 Lymphocytes/100 WBC (Bld) 24.6 % . [facility] MCH Auto (RBC) [Entitic mass ]Ordered By: Brissa Hoffman on 06-23-2022 MCH (RBC) [Entitic mass] 30.9 pg 24.7-34.3 [facility] MCHC Auto (RBC) [Mass/Vol]Or dered By: Brissa Hoffman on 06-23-2022 MCHC (RBC) [Mass/Vol] 33.0 g/dL 32.0-35.0 [facility] MCV Auto (RBC) [Entitic vol] Ordered By: Brissa Hoffman on 06-23-2022 MCV (RBC) [Entitic vol] 93.5 fL 80-100 [facility] Monocytes Auto (Bld) [#/Vol] Ordered By: Brissa Hoffman on 06-23-2022 Monocytes (Bld) [#/Vol] 0.8 10*3/uL 0.0-0.8 [facility] Monocytes/100 WBC Auto (Bld) Ordered By: Brissa Hoffman on 06-23-2022 Monocytes/100 WBC (Bld) 12.9 % . [facility] Neutrophils Auto (Bld) [#/Vo l]Ordered By: Brissa Hoffman on 06-23-2022 Neutrophils (Bld) [#/Vol] 3.8 10*3/uL 1.8-7.7 [facility] Neutrophils/100 WBC Auto (Bl d)Ordered By: Brissa Hoffman on 06-23-2022 Neutrophils/100 WBC (Bld) 59.7 % . [facility] No Panel InformationOrdered By: Sharron Casey on 06-23-2022 Estimated GFR (CKD-EPI) 35.865 mL/Min [facility] Creatinine Clearance (Chem 42.65 [facility] Nucleated erythrocytes [Pres ence] in Blood by Automated countOrdered By: Brissa Hoffman on 06-23-2022 Nucleated RBC Auto Ql (Bld) 0.0 /100{WBC} 0-0.5 [facility] Platelet mean volume Auto (B ld) [Entitic vol]Ordered By: Brissa Hoffman on 06-23-2022 Platelet mean volume (Bld) [Entitic vol] 10.2 fL 6.3-10.7 [facility] Platelets Auto (Bld) [#/Vol] Ordered By: Brissa Hoffman on 06-23-2022 Platelets (Bld) [#/Vol] 147 10*3/uL 150-450 [facility] Potassium [Moles/volume] in Serum or PlasmaOrdered By: Sharron Casey on 06-23-2022 Potassium [Moles/Vol] 4.2 mmol/L 3.5-5.1 [facility] RBC Auto (Bld) [#/Vol]Ordere d By: Brissa Hoffman on 06-23-2022 RBC (Bld) [#/Vol] 4.41 10*6/uL 3.60-5.00 [facility] Serum or plasma anion gap de terminationOrdered By: Sharron Casey on 06-23-2022 Anion gap [Moles/Vol] 10.9 mmol/L 6.0-15.0 [facility] Sodium [Moles/volume] in Ser um or PlasmaOrdered By: Sharron Casey on 06-23-2022 Sodium [Moles/Vol] 135 mmol/L 136-145 [facility] Troponin I.cardiac [Mass/vol ume] in Serum or Plasma by Detection limit <= 0.01 ng/Ordered By: Sharron Casey on 06-23-2022 Troponin I.cardiac DL <= 0.01 ng/mL [Mass/Vol] 65.3 pg/mL 0.0-15.0 [facility] Comment on above: Critical Result : Ca lled to and read back by: CHELY HERNADEZ at: 06/23/2022 10:49:30 by:LEENA Urea nitrogen [Mass/volume] in Serum or PlasmaOrdered By: Sharron Casey on 06-23-2022 Urea nitrogen [Mass/Vol] 37 mg/dL 7-25 [facility] WBC Auto (Bld) [#/Vol]Ordere d By: Brissa Hoffman on 06-23-2022 WBC (Bld) [#/Vol] 6.4 10*3/uL 3.8-11.6 [facility] Alanine aminotransferase [En zymatic activity/volume] in Serum or PlasmaOrdered By: Marcela Cano on 06-22-2022 ALT [Catalytic activity/Vol] 13 U/L 7-52 [facility] Albumin [Mass/volume] in Ser um or Plasma by Bromocresol green (BCG) dye binding methoOrdered By: Marcela Cano on 06-22-2022 Albumin BCG dye [Mass/Vol] 3.4 g/dL 3.5-5.7 [facility] Alkaline phosphatase [Enzyma tic activity/volume] in Serum or PlasmaOrdered By: Marcela Cano on 06-22-2022 ALP [Catalytic activity/Vol] 74 U/L 34-104 [facility] Aspartate aminotransferase [ Enzymatic activity/volume] in Serum or PlasmaOrdered By: Marcela Cano on 06-22-2022 AST [Catalytic activity/Vol] 16 U/L 13-39 [facility] Bilirubin.total [Mass/volume ] in Serum or PlasmaOrdered By: Marcela Cano on 06-22-2022 Bilirubin [Mass/Vol] 0.7 mg/dL 0.3-1.0 [facility] Cholesterol [Mass/volume] in Serum or PlasmaOrdered By: Marcela Cano on 06-22-2022 Cholesterol [Mass/Vol] 162 mg/dL 140-200 [facility] Comment on above: Chol less than 200 m g/dl low riskChol 201-239 mg/dl borderline riskChol 240 mg/dl and greater high risk Cholesterol in LDL Calc [Mas s/Vol]Ordered By: Marcela Cano on 06-22-2022 Cholesterol in LDL [Mass/Vol] 105 mg/dL 0-100 [facility] Comment on above: LDL ATP III CLASSIFI CATIONLDL less than 100 mg/dL OptimalLDL 100-129 mg/dL Near or above optimalLDL 130-159 mg/dL Borderline highLDL 160-189 mg/dL HighLDL greater than 189 mg/dL Very high Cholesterol in VLDL Calc [Ma ss/Vol]Ordered By: Marcela Cano on 06-22-2022 Cholesterol in VLDL [Mass/Vol] 32 mg/dL [facility] Globulin Calc (S) [Mass/Vol] Ordered By: Marcela Cano on 06-22-2022 Globulin (S) [Mass/Vol] 2.5 g/dL [facility] Glucose mean value [Mass/vol ume] in Blood Estimated from glycated hemoglobinOrdered By: Marcela Cano on 06-22-2022 Average glucose Estimated from glycated hemoglobin (Bld) [Mass/Vol] 194 mg/dL [facility] Hemoglobin A1c percentageOrd ered By: Marcela Cano on 06-22-2022 HbA1c (Bld) [Mass fraction] 8.4 % 4.3-5.6 [facility] Comment on above: Increased risk for d iabetes: 5.7 - 6.4diabetes: >6.4glycemic control for adults with diabetes: <7.0 Lactate [Moles/volume] in Se rum or PlasmaOrdered By: Marcela Cano on 06-22-2022 Lactate [Moles/Vol] 1.2 mmol/L 0.5-2.2 [facility] Natriuretic peptide B [Mass/ Vol]Ordered By: Marcela Cano on 06-22-2022 Natriuretic peptide B (Bld) [Mass/Vol] 507.0 pg/mL 5-100 [facility] No Panel InformationOrdered By: Toi Johnson on 06-22-2022 Bedside Glucose Comment Glu2: cleaned meter [facility] Protein [Mass/volume] in Ser um or PlasmaOrdered By: Marcela Cano on 06-22-2022 Protein [Mass/Vol] 5.9 g/dL 6.4-8.9 [facility] Serum or plasma albumin/glob ulin mass ratioOrdered By: Marcela Cano on 06-22-2022 Albumin/Globulin [Mass ratio] 1.4 {ratio} [facility] Serum or plasma high density lipoprotein (HDL) cholesterol measurementOrdered By: Marcela Cano on 06-22-2022 Cholesterol in HDL [Mass/Vol] 25 mg/dL 35-85 [facility] Comment on above: HDL CHOL ATP-III CLA SSIFICATION Cardiovascular RiskHDL > or equal to 60 mg/dL LOWHDL < 40 mg/dL HIGH Serum or plasma total choles terol/high density lipoprotein (HDL) cholesterol mass ratOrdered By: Marcela Cano on 06-22-2022 Cholesterol.total/Chol esterol in HDL [Mass ratio] 6.5 {ratio} <5.0 [facility] TROPONIN, HIGH SENSITIVITYon 06-22-2022 HSTROP 395.9 pg/mL Critically high 4.0-51.3 [facility] Comment on above: Result Comment: CUT- OFF POINTS HAVE BEEN ESTABLISHED BASED ON THE FOURTH UNIVERSAL DEFINITIONS OF MYOCARDIAL INFARCTION. THE UPPER REFERENCE LIMIT (URL) OF TROPONIN, DEFINED THE 99TH PERCENTILE OF cTnI DISTRIBUTION IN A REFERENCE POPULATION, HAS BEEN CONFIRMED THE DECISION THRESHOLD FOR [place] DIAGNOSIS. Performed By: #### U RTPCR #### [facility] [address] [place] [address] Dr. Shilpa Beard Triglyceride [Mass/volume] i n Serum or PlasmaOrdered By: Marcela Cano on 06-22-2022 Triglyceride [Mass/Vol] 160 mg/dL 0-149 [facility] Comment on above: TRIG ATP III CLASSIF ICATIONTRIG less than 150 mg/dL NormalTRIG 150-199 mg/dL Borderline highTRIG 200-500 mg/dL High TRIG greater than 500 mg/dL Very highStandard traceable to the Center for Disease Conrtrol and Prevention (CDC) test method. AMYLASEon 06-21-2022 Amylase [Catalytic activity/Vol] 41 U/L Normal 25-115 [facility] Comment on above: Performed By: #### L IPA, ALLISON #### [facility] [address] [place] [address] Dr. Shilpa Beard CBC AUTO DIFFon 06-21-2022 BASO # 0.1 103/ul Normal 0.0-0.1 [facility] Comment on above: Performed By: #### C BC #### [facility] [address] [place] [address] Dr. Shilpa Beard Basophils/100 WBC (Bld) 0.4 % Normal 0.2-2.0 [facility] Comment on above: Performed By: #### C BC #### [facility] [address] [place] [address] Dr. Shilpa Beard EO # 0.0 103/ul Normal 0.0-0.7 [facility] Comment on above: Performed By: #### C BC #### [facility] [address] [place] [address] Dr. Shilpa Beard Eosinophils/100 WBC (Bld) 0.1 % Critically low 0.9-7.0 [facility] Comment on above: Performed By: #### C BC #### [facility] [address] [place] [address] Dr. Shilpa eBard Erythrocyte distribution width (RBC) [Ratio] 13.4 % Normal 11.0-15.0 [facility] Comment on above: Performed By: #### C BC #### [facility] [address] [place] [address] Dr. Shilpa Beard Hematocrit (Bld) [Volume fraction] 46.1 % Normal 36.0-48.0 [facility] Comment on above: Performed By: #### C BC #### [facility] [address] [place] [address] Dr. Shilpa Beard Hemoglobin (Bld) [Mass/Vol] 15.6 g/dL Normal 12.0-16.0 [facility] Comment on above: Performed By: #### C BC #### [facility] [address] [place] [address] Dr. Shilpa Beard IG # 0.07 10e3/ul Critically high 0.00-0.03 [facility] Comment on above: Performed By: #### C BC #### [facility] [address] [place] [address] Dr. Shilpa Beard IG % 0.4 % Normal 0.0-0.5 [facility] Comment on above: Performed By: #### C BC #### [facility] [address] [place] [address] Dr. Shilpa Beard LYMPH # 0.7 103/ul Critically low 1.2-3.8 [facility] Comment on above: Performed By: #### C BC #### [facility] [address] [place] [address] Dr. Shilpa Beard Lymphocytes/100 WBC (Bld) 4.4 % Critically low 20.5-60.0 [facility] Comment on above: Performed By: #### C BC #### [facility] [address] [place] [address] Dr. Shilpa Beard MANUAL DIFF REQ NO Normal [facility] Comment on above: Performed By: #### C BC #### [facility] [address] [place] [address] Dr. Shilpa Beard MCH (RBC) [Entitic mass] 30.8 pg Normal 26.7-34.0 [facility] Comment on above: Performed By: #### C BC #### [facility] [address] [place] [address] Dr. Shilpa Beard MCHC (RBC) [Mass/Vol] 33.8 g/dL Normal 29.9-35.2 [facility] Comment on above: Performed By: #### C BC #### [facility] [address] [place] [address] Dr. Shilpa Beard MCV (RBC) [Entitic vol] 90.9 fL Normal 81.0-99.0 [facility] Comment on above: Performed By: #### C BC #### [facility] [address] [place] [address] Dr. Shilpa Beard MONO # 0.9 103/ul Critically high 0.3-0.8 [facility] Comment on above: Performed By: #### C BC #### [facility] [address] [place] [address] Dr. Shilpa Beard Monocytes/100 WBC (Bld) 5.6 % Normal 1.7-12.0 [facility] Comment on above: Performed By: #### C BC #### [facility] [address] [place] [address] Dr. Shilpa Beard NEUT # 14.5 103/ul Critically high 1.4-6.5 [facility] Comment on above: Performed By: #### C BC #### [facility] [address] [place] [address] Dr. Shilpa Beard Neutrophils/100 WBC (Bld) 89.1 % Critically high 43.0-75.0 [facility] Comment on above: Performed By: #### C BC #### [facility] [address] [place], [place] [address] Dr. Shilpa Beard Platelet mean volume (Bld) [Entitic vol] 11.6 fL Normal 9.5-13.5 [facility] Comment on above: Performed By: #### C BC #### [facility] [address] [address] [address] Shilpa Beard PLT 176 103/ul Normal 150-450 [facility] Comment on above: Performed By: #### C BC #### [facility] [address] [address] [address] Shilpa Beard RBC 5.07 106/ul Normal 4.20-5.40 [facility] Comment on above: Performed By: #### C BC #### [facility] [address] [address] [address] Shilpa Beard WBC 16.2 103/ul Critically high 4.0-11.0 [facility] Comment on above: Performed By: #### C BC #### [facility] [address] [place] [address] ABD/PELVIS WO CONon [...] JENNIFER SWIFT Date: 2022-06-21 21:52 Normal [facility] CULTURE URINEon 06-21-2022 CULTURE URINE Culture Observations : NO GROWTH. Normal [facility] Comment on above: Performed By: #### L IPA, ALLISON #### [facility] [address] [address] [address] Shilpa Beard [facility]on SARS-CoV-2 (COVID-19) RNA COLIN+probe Ql (Unsp spec) Not detected Normal NOT DETECTED [facility] Comment on above: Result Comment: When diagnostic [...] for this test is supported by the [place] of Health and Human Service's declaration that [...] used). Performed By: #### C VDTBH #### [facility] [address] [address] [address] Shilpa Beard ER URINE PROFILEon 3 Bilirubin Ql (U) Negative Normal NEGATIVE [facility] Comment on above: Performed By: #### U RTPCR #### [facility] [address] [place], [place] [address] Dr. Shilpa Beard Clarity (U) CLEAR Normal CLEAR [facility] Comment on above: Performed By: #### U RTPCR #### [facility] [address] [place] [address] Dr. Shilpa Beard Color (U) LT. YELLOW Normal YELLOW [facility] Comment on above: Performed By: #### U RTPCR #### [facility] [address] [place] [address] Dr. Shilpa Beard ERUAHD A micrscopic examina tion will be performed if indicated. Normal [facility] Comment on above: Performed By: #### U RTPCR #### [facility] [address] [place] [address] Dr. Shilpa Beard Glucose Ql (U) 250 mg/dl Abnormal NEGATIVE [facility] Comment on above: Performed By: #### U RTPCR #### [facility] [address] [place] [address] Dr. Shilpa Beard Hemoglobin Ql (U) TRACE-INTACT Abnormal NEGATIVE [facility] Comment on above: Performed By: #### U RTPCR #### [facility] [address] [place] [address] Dr. Shilpa Beard Ketones Ql (U) Negative Normal NEGATIVE [facility] Comment on above: Performed By: #### U RTPCR #### [facility] [address] [place] [address] Dr. Shilpa Beard LEUKOCYTES Negative Normal NEGATIVE [facility] Comment on above: Performed By: #### U RTPCR #### [facility] [address] [place] [address] Dr. Shilpa Beard Nitrite Ql (U) Negative Normal NEGATIVE [facility] Comment on above: Performed By: #### U RTPCR #### [facility] [address] [place] [address] Dr. Shilpa Beard pH (U) 5.0 [pH] Normal 5-9 [facility] Comment on above: Performed By: #### U RTPCR #### [facility] [address] [place] [address] Dr. Shilpa Beard Protein (U) [Mass/Vol] 100 mg/dL Abnormal NEGAT WILSON/ TRACE [facility] Comment on above: Performed By: #### U RTPCR #### [facility] [address] [place] [address] Dr. Shilpa Beard SPEC GRAVITY 1.025 Normal 1.005-<=1. 025 [facility] Comment on above: Performed By: #### U RTPCR #### [facility] [address] [place] [address] Dr. Shilpa Beard UR MICRO IND INDICATED Normal [facility] Comment on above: Performed By: #### U RTPCR #### [facility] [address] [place] [address] Dr. Shilpa Beard Urobilinogen Qn (U) 0.2 {Jacklyn'U}/dL Normal 0.2 - 1. 0 [facility] Comment on above: Performed By: #### U RTPCR #### [facility] [address] [place] [address] Dr. Shilpa Beard LIPASEon 06-21-2022 Lipase [Catalytic activity/Vol] 80.0 U/L Normal 73.0-393.0 [facility] Comment on above: Performed By: #### L IPA, ALLISON #### [facility] [address] [place] [address] Dr. Shilpa Beard Lipase [Catalytic activity/Vol] 82.0 U/L Normal 73.0-393.0 [facility] Comment on above: Performed By: #### U RTPCR #### [facility] [address] [place] [address] Dr. Shilpa Beard PROF 14(COMP METB)on 023 Albumin [Mass/Vol] 3.3 g/dL Critically low 3.4-5.0 [facility] Comment on above: Performed By: #### U RTPCR #### [facility] [address] [place] [address] Dr. Shilpa Beard Albumin/Globulin [Mass ratio] 0.8 {ratio} Normal [facility] Comment on above: Performed By: #### U RTPCR #### [facility] [address] [place] [address] Dr. Shilpa Beard ALP [Catalytic activity/Vol] 114 U/L Normal 46-116 [facility] Comment on above: Performed By: #### U RTPCR #### [facility] [address] [address] [address] Shilpa Beard ALT [Catalytic activity/Vol] 18 U/L Normal 14-59 [facility] Comment on above: Performed By: #### U RTPCR #### [facility] [address] [address] [address] Shilpa Beard Anion gap [Moles/Vol] 18.4 mmol/L Normal [facility] Comment on above: Performed By: #### U RTPCR #### [facility] [address] [address] [address] Shilpa Beard AST [Catalytic activity/Vol] 22 U/L Normal 15-37 [facility] Comment on above: Performed By: #### U RTPCR #### [facility] [address] [place] [address] Dr. Shilpa Beard Bilirubin [Mass/Vol] 0.6 mg/dL Normal 0.2-1.0 [facility] Comment on above: Performed By: #### U RTPCR #### [facility] [address] [address] [address] Shilpa Beard Calcium [Mass/Vol] 8.9 mg/dL Normal 8.5-10.1 [facility] Comment on above: Performed By: #### U RTPCR #### [facility] [address] [place] [address] [address] Shilpa Beard Chloride [Moles/Vol] 100 mmol/L Normal 98-107 [facility] Comment on above: Performed By: #### U RTPCR #### [facility] [address] [place] [address] [address] Shilpa Beard CO2 [Moles/Vol] 22.2 mmol/L Normal 21.0-32.0 [facility] Comment on above: Performed By: #### U RTPCR #### [facility] [address] [address] [address] Shilpa Beard Creatinine [Mass/Vol] 1.80 mg/dL Critically high 0.55-1.02 [facility] Comment on above: Performed By: #### U RTPCR #### [facility] [address] [place] [address] [address] Shilpa Baerd EGFR-AF [place] 32 mL/min/1.73m2 Critically low >=60 [facility] Comment on above: Performed By: #### U RTPCR #### [facility] [address] [place] [address] [address] Shilpa Beard EGFR-NON AF [place] 27 mL/min/1.73m2 Critically low >=60 [facility] Comment on above: Performed By: #### U RTPCR #### [facility] [address] [address] [address] Shilpa Beard Globulin (S) [Mass/Vol] 4.0 g/dL Normal [facility] Comment on above: Performed By: #### U RTPCR #### [facility] [address] [address] [address] Shilpa Beard Glucose [Mass/Vol] 277 mg/dL Critically high 74-106 [facility] Comment on above: Performed By: #### U RTPCR #### [facility] [address] [address] [address] Shilpa Beard Potassium [Moles/Vol] 4.6 mmol/L Normal 3.5-5.1 [facility] Comment on above: Performed By: #### U RTPCR #### [facility] [address] [address] [address] Shilpa Beard Protein [Mass/Vol] 7.3 g/dL Normal 6.4-8.2 [facility] Comment on above: Performed By: #### U RTPCR #### [facility] [address] [address] [address] Shilpa Beard Sodium [Moles/Vol] 136 mmol/L Normal 136-145 [facility] Comment on above: Performed By: #### U RTPCR #### [facility] [address] [address] [address] Shilpa Beard Urea nitrogen [Mass/Vol] 35.0 mg/dL Critically high 7.0-18.0 [facility] Comment on above: Performed By: #### U RTPCR #### [facility] [address] [place] [address] Dr. Shilpa Beard Urea nitrogen/Creatinine [Mass ratio] 19.4 mg/mg Normal [facility] Comment on above: Performed By: #### U RTPCR #### [facility] [address] [place] [address] Dr. Shilpa Beard TROPONIN, HIGH SENSITIVITYon 06-21-2022 HSTROP 190.4 pg/mL Critically high 4.0-51.3 [facility] Comment on above: Result Comment: CUT- OFF POINTS HAVE BEEN ESTABLISHED BASED ON THE FOURTH UNIVERSAL DEFINITIONS OF MYOCARDIAL INFARCTION. THE UPPER REFERENCE LIMIT (URL) OF TROPONIN, DEFINED THE 99TH PERCENTILE OF cTnI DISTRIBUTION IN A REFERENCE POPULATION, HAS BEEN CONFIRMED THE DECISION THRESHOLD FOR [place] DIAGNOSIS. Performed By: #### H STROPN #### [facility] [address] [place] [address] Dr. Shilpa Beard HSTROP 103.3 pg/mL Critically high 4.0-51.3 [facility] Comment on above: Result Comment: CUT- OFF POINTS HAVE BEEN ESTABLISHED BASED ON THE FOURTH UNIVERSAL DEFINITIONS OF MYOCARDIAL INFARCTION. THE UPPER REFERENCE LIMIT (URL) OF TROPONIN, DEFINED THE 99TH PERCENTILE OF cTnI DISTRIBUTION IN A REFERENCE POPULATION, HAS BEEN CONFIRMED THE DECISION THRESHOLD FOR [place] DIAGNOSIS. Performed By: #### U RTPCR #### [facility] [address] [place] [address] Dr. Shilpa Beard URINE MICROSCOPIC ONLYon AMORPHOUS CRYSTALS FEW Normal [facility] Comment on above: Performed By: #### U RTPCR #### [facility] [address] [place] [address] Dr. Shilpa Beard BACTERIA SMALL Abnormal NONE SEEN [facility] Comment on above: Performed By: #### U RTPCR #### [facility] [address] [place] [address] Dr. Shilpa Beard Bacteria identified Cx Nom (U) INDICATED Normal [facility] Comment on above: Performed By: #### U RTPCR #### [facility] [address] [place], [place] [id number] Dr. Shilpa Beard CAST SEEN Abnormal NONE SEEN [facility] Comment on above: Performed By: #### U RTPCR #### [facility] [address] [place] [address] Dr. Shilpa Beard Crystals LM Nom (Urine sed) SEEN Abnormal NONE SEEN [facility] Comment on above: Performed By: #### U RTPCR #### [facility] [address] [place] [address] Dr. Shilpa Beard Epithelial cells LM Ql (Urine sed) FEW Abnormal NONE SEEN /RARE [facility] Comment on above: Performed By: #### U RTPCR #### [facility] [address] [place] [address] Dr. Shilpa Beard HYALINE CAST FEW Normal [facility] Comment on above: Performed By: #### U RTPCR #### [facility] [address] [place] [address] Dr. Shilpa Beard MUCOUS NONE SEEN Normal NONE SEEN [facility] Comment on above: Performed By: #### U RTPCR #### [facility] [address] [place] [address] Dr. Shilpa Beard RBC 2-5 Abnormal 0-2 [facility] Comment on above: Performed By: #### U RTPCR #### [facility] [address] [place] [address] Dr. Shilpa Beard WBC NONE SEEN Normal NONE SEEN [facility] Comment on above: Performed By: #### U RTPCR #### [facility] [address] [place] [address] Dr. Shilpa Beard XR CHEST 1 Von [...] LAURENCE RAJPUT Date: 2022-06-21 17:15 Normal [facility] GLYCOHEMOGLOBIN A1Con 2021 ADA RECOMMENDATION SEE BELOW Normal [facility] Comment on above: Result Comment: ADA RECOMMENDED LIMIT 4.0 - 6.0 ADA THERAPEUTIC TARGET < 7.0 ACTION SUGGESTED > 7.0 Performed By: #### A 1C #### [facility] [address] [place] [address] Dr. Shilpa Beard Glucose [Mass/Vol] 174 mg/dL Normal [facility] Comment on above: Performed By: #### A 1C #### [facility] [address] [place] [address] Dr. Shilpa Beard HbA1c (Bld) [Mass fraction] 7.7 % Critically high 4.5-6.2 [facility] Comment on above: Performed By: #### A 1C #### [facility] [address] [place] [address] Dr. Shilpa Beard PROF CHEM 8 (BAS METB)on Anion gap [Moles/Vol] 13.6 mmol/L Normal [facility] Comment on above: Performed By: #### B MP #### [facility] [address] [place] [address] Dr. Shilpa Beard Calcium [Mass/Vol] 9.6 mg/dL Normal 8.5-10.1 [facility] Comment on above: Performed By: #### B MP #### [facility] [address] [place] [address] Dr. Shilpa Beard Chloride [Moles/Vol] 103 mmol/L Normal 98-107 [facility] Comment on above: Performed By: #### B MP #### [facility] [address] [place] [address] Dr. Shilpa Beard CO2 [Moles/Vol] 26.1 mmol/L Normal 21.0-32.0 [facility] Comment on above: Performed By: #### B MP #### [facility] [address] [place] [address] Dr. Shilpa Beard Creatinine [Mass/Vol] 1.30 mg/dL Critically high 0.55-1.02 [facility] Comment on above: Performed By: #### B MP #### [facility] [address] [place] [address] [address] Shilpa Beard EGFR-AF [place] 47 mL/min/1.73m2 Critically low >=60 [facility] Comment on above: Performed By: #### B MP #### [facility] [address] [place] [address] [address] Shilpa Beard EGFR-NON AF [place] 39 mL/min/1.73m2 Critically low >=60 [facility] Comment on above: Performed By: #### B MP #### [facility] [address] [place] [address] Dr. Shilpa Beard Glucose [Mass/Vol] 219 mg/dL Critically high 74-106 [facility] Comment on above: Performed By: #### B MP #### [facility] [address] [address] [address] Shilpa Beard Potassium [Moles/Vol] 4.7 mmol/L Normal 3.5-5.1 [facility] Comment on above: Performed By: #### B MP #### [facility] [address] [place] [address] Dr. Shilpa Beard Sodium [Moles/Vol] 138 mmol/L Normal 136-145 [facility] Comment on above: Performed By: #### B MP #### [facility] [address] [place] [address] [address] Shilpa Beard Urea nitrogen [Mass/Vol] 37.0 mg/dL Critically high 7.0-18.0 [facility] Comment on above: Performed By: #### B MP #### [facility] [address] [place] [address] [address] Shilpa Beard Urea nitrogen/Creatinine [Mass ratio] 28.5 mg/mg Normal [facility] Comment on above: Performed By: #### B MP #### [facility] [address] [place] [address] Dr. Shilpa Beard PROF CHEM 8 (BAS METB)on Anion gap [Moles/Vol] 15.2 mmol/L Normal [facility] Comment on above: Performed By: #### L IPA, ALLISON #### [facility] [address] [address] [address] Shilpa Beard Calcium [Mass/Vol] 8.7 mg/dL Normal 8.5-10.1 [facility] Comment on above: Performed By: #### L IPA, ALLISON #### [facility] [address] [address] [address] Shilpa Beard Chloride [Moles/Vol] 102 mmol/L Normal 98-107 [facility] Comment on above: Performed By: #### L IPA, ALLISON #### [facility] [address] [address] [address] Shilpa Beard CO2 [Moles/Vol] 22.8 mmol/L Normal 21.0-32.0 [facility] Comment on above: Performed By: #### L IPA, ALLISON #### [facility] [address] [address] [address] Shilpa Beard Creatinine [Mass/Vol] 1.32 mg/dL Critically high 0.55-1.02 [facility] Comment on above: Performed By: #### L IPA, ALLISON #### [facility] [address] [address] [address] Shilpa Beard EGFR-AF [place] 46 mL/min/1.73m2 Critically low >=60 [facility] Comment on above: Performed By: #### L IPA, ALLISON #### [facility] [address] [address] [address] Shilpa Beard EGFR-NON AF [place] 38 mL/min/1.73m2 Critically low >=60 [facility] Comment on above: Performed By: #### L IPA, ALLISON #### [facility] [address] [address] [address] Shilpa Beard Glucose [Mass/Vol] 168 mg/dL Critically high 74-106 [facility] Comment on above: Performed By: #### L IPA, ALLISON #### [facility] [address] [place] [address] Dr. Shilpa Beard Potassium [Moles/Vol] 5.0 mmol/L Normal 3.5-5.1 [facility] Comment on above: Performed By: #### L IPA, ALLISON #### [facility] [address] [place] [address] Dr. Shilpa Beard Sodium [Moles/Vol] 135 mmol/L Critically low 136-145 [facility] Comment on above: Performed By: #### L IPA, ALLISON #### [facility] [address] [place] [address] Dr. Shilpa Beard Urea nitrogen [Mass/Vol] 38.0 mg/dL Critically high 7.0-18.0 [facility] Comment on above: Performed By: #### L IPA, ALLISON #### [facility] [address] [place] [address] Dr. Shilpa Beard Urea nitrogen/Creatinine [Mass ratio] 28.8 mg/mg Normal [facility] Comment on above: Performed By: #### L IPA, ALLISON #### [facility] [address] [place] [address] Dr. Shilpa Beard CBC AUTO DIFFon 06-30-2021 BASO # 0.1 103/ul Normal 0.0-0.1 [facility] Comment on above: Performed By: #### L IPA, ALLISON #### [facility] [address] [place] [address] Dr. Shilpa Beard Basophils/100 WBC (Bld) 1.0 % Normal 0.2-2.0 [facility] Comment on above: Performed By: #### L IPA, ALLISON #### [facility] [address] [place] [address] Dr. Shilpa Beard EO # 0.2 103/ul Normal 0.0-0.7 [facility] Comment on above: Performed By: #### L IPA, ALLISON #### [facility] [address] [place] [address] Dr. Shilpa Beard Eosinophils/100 WBC (Bld) 1.8 % Normal 0.9-7.0 [facility] Comment on above: Performed By: #### L IPA, ALLISON #### [facility] [address] [place] [address] Dr. Shilpa Beard Erythrocyte distribution width (RBC) [Ratio] 13.3 % Normal 11.0-15.0 [facility] Comment on above: Performed By: #### L IPA, ALLISON #### [facility] [address] [place] [address] Dr. Shilpa Beard Hematocrit (Bld) [Volume fraction] 46.5 % Normal 36.0-48.0 [facility] Comment on above: Performed By: #### L IPA, ALLISON #### [facility] [address] [place] [address] Dr. Shilpa Beard Hemoglobin (Bld) [Mass/Vol] 15.1 g/dL Normal 12.0-16.0 [facility] Comment on above: Performed By: #### L IPA, ALLISON #### [facility] [address] [place] [address] Dr. Shilpa Beard IG # 0.06 10e3/ul Critically high 0.00-0.03 [facility] Comment on above: Performed By: #### L IPA, ALLISON #### [facility] [address] [place] [address] Dr. Shilpa Beard IG % 0.7 % Critically high 0.0-0.5 [facility] Comment on above: Performed By: #### L IPA, ALLISON #### [facility] [address] [place] [address] Dr. Shilpa Beard LYMPH # 2.9 103/ul Normal 1.2-3.8 [facility] Comment on above: Performed By: #### L IPA, ALLISON #### [facility] [address] [place] [address] Dr. Shilpa Beard Lymphocytes/100 WBC (Bld) 35.4 % Normal 20.5-60.0 [facility] Comment on above: Performed By: #### L IPA, ALLISON #### [facility] [address] [place] [address] Dr. Shilpa Beard MANUAL DIFF REQ NO [facility] Comment on above: Performed By: #### L IPA, ALLISON #### [facility] [address] [place] [address] Dr. Shilpa Beard MCH (RBC) [Entitic mass] 29.8 pg Normal 26.7-34.0 [facility] Comment on above: Performed By: #### L IPA, ALLISON #### [facility] [address] [place] [address] Dr. Shilpa Beard MCHC (RBC) [Mass/Vol] 32.5 g/dL Normal 29.9-35.2 [facility] Comment on above: Performed By: #### L IPA, ALLISON #### [facility] [address] [place] [address] Dr. Shilpa Beard MCV (RBC) [Entitic vol] 91.9 fL Normal 81.0-99.0 [facility] Comment on above: Performed By: #### L IPA, ALLISON #### [facility] [address] [place] [address] Dr. Shilpa Beard MONO # 0.8 103/ul Normal 0.3-0.8 [facility] Comment on above: Performed By: #### L IPA, ALLISON #### [facility] [address] [place] [address] Dr. Shilpa Beard Monocytes/100 WBC (Bld) 9.9 % Normal 1.7-12.0 [facility] Comment on above: Performed By: #### L IPA, ALLISON #### [facility] [address] [place] [address] Dr. Shilpa Beard NEUT # 4.2 103/ul Normal 1.4-6.5 [facility] Comment on above: Performed By: #### L IPA, ALLISON #### [facility] [address] [place] [address] Dr. Shilpa Beard Neutrophils/100 WBC (Bld) 51.2 % Normal 43.0-75.0 [facility] Comment on above: Performed By: #### L IPA, ALLISON #### [facility] [address] [place] [address] Dr. Shilpa Beard Platelet mean volume (Bld) [Entitic vol] 11.1 fL Normal 9.5-13.5 [facility] Comment on above: Performed By: #### L IPA, ALLISON #### [facility] [address] [place] [address] Dr. Shilpa Beard PLT 263 103/ul Normal 150-450 [facility] Comment on above: Performed By: #### L IPA, ALLISON #### [facility] [address] [place] [address] Dr. Shilpa Beard RBC 5.06 106/ul Normal 4.20-5.40 [facility] Comment on above: Performed By: #### L IPA, ALLISON #### [facility] [address] [place] [address] Dr. Shilpa Beard WBC 8.1 103/ul Normal 4.0-11.0 [facility] Comment on above: Performed By: #### L IPA, ALLISON #### [facility] [address] [place] [address] Dr. Shilpa Beard GLYCOHEMOGLOBIN A1Con 2021 ADA RECOMMENDATION ADA THERAPEUTIC TARG ET 6.0 - 7.0 ACTION SUGGESTED > 7.0 Normal [facility] Comment on above: Performed By: #### U RTPCR #### [facility] [address] [place] [address] Dr. Shilpa Beard Glucose [Mass/Vol] 186 mg/dL Normal [facility] Comment on above: Performed By: #### U RTPCR #### [facility] [address] [place] [address] Dr. Shilpa Beard HbA1c (Bld) [Mass fraction] 8.1 % Critically high <=6.0 [facility] Comment on above: Performed By: #### U RTPCR #### [facility] [address] [place] [address] Dr. Shilpa Beard LIPID PROFILEon 06-30-2021 CHOL-HDL RATIO NORM SEE BELOW Normal [facility] Comment on above: Result Comment: 3.3 - 4.4 LOW RISK 4.4 - 7.1 AVERAGE RISK 7.1 - 11.0 MODERATE RISK >11.0 HIGH RISK Performed By: #### L IPID, URIC, TSH, CMP #### [facility] [address] [address] [address] Shilpa Beard Cholesterol [Mass/Vol] 223 mg/dL Critically high <=200 [facility] Comment on above: Performed By: #### L IPID, URIC, TSH, CMP #### [facility] [address] [address] [address] Shilpa Beard Cholesterol in HDL [Mass/Vol] 31 mg/dL Critically low 40-60 [facility] Comment on above: Performed By: #### L IPID, URIC, TSH, CMP #### [facility] [address] [address] [address] Shilpa Beard Cholesterol in LDL [Mass/Vol] 143.6 mg/dL Normal [facility] Comment on above: Performed By: #### L IPID, URIC, TSH, CMP #### [facility] [address] [place] [address] Dr. Shilpa Beard Cholesterol.total/Chol esterol in HDL [Mass ratio] 7.2 {ratio} Normal [facility] Comment on above: Performed By: #### L IPID, URIC, TSH, CMP #### [facility] [address] [address] [address] Shilpa Beard HDL NORMAL > or = 60 mg/dl - LO W CARDIOVASCULAR RISK <40 mg/dl - HIGH CARDIOVASCULAR RISK Normal [facility] Comment on above: Performed By: #### L IPID, URIC, TSH, CMP #### [facility] [address] [address] [address] Shilpa Beard LDL CALC NORMAL SEE BELOW Normal [facility] Comment on above: Result Comment: <100 mg/dl OPTIMAL 100 - 129 mg/dl NEAR OR ABOVE OPTIMAL 130 - 159 mg/dl BORDERLINE HIGH 160 - 189 mg/dl HIGH >190 mg/dl VERY HIGH Performed By: #### L IPID, URIC, TSH, CMP #### [facility] [address] [address] [address] Shilpa Beard Triglyceride [Mass/Vol] 242 mg/dL Critically high <=150 [facility] Comment on above: Performed By: #### L IPID, URIC, TSH, CMP #### [facility] [address] [address] [address] Shilpa Beard VLDL CALC 48.4 mg/dL Normal [facility] Comment on above: Performed By: #### L IPID, URIC, TSH, CMP #### [facility] [address] [address] [address] Shilpa Beard PROF 14(COMP METB)on 022 Albumin [Mass/Vol] 3.2 g/dL Critically low 3.4-5.0 [facility] Comment on above: Performed By: #### U RTPCR #### [facility] [address] [place] [address] Dr. Shilpa Beard Albumin/Globulin [Mass ratio] 0.7 {ratio} Normal [facility] Comment on above: Performed By: #### U RTPCR #### [facility] [address] [place] [address] Dr. Shilpa Beard ALP [Catalytic activity/Vol] 99 U/L Normal 46-116 [facility] Comment on above: Performed By: #### U RTPCR #### [facility] [address] [place] [address] Dr. Shilpa Beard ALT [Catalytic activity/Vol] 42 U/L Normal 14-59 [facility] Comment on above: Performed By: #### U RTPCR #### [facility] [address] [place] [address] Dr. Shilpa Beard Anion gap [Moles/Vol] 13.1 mmol/L Normal [facility] Comment on above: Performed By: #### U RTPCR #### [facility] [address] [place] [address] Dr. Shilpa Beard AST [Catalytic activity/Vol] 53 U/L Critically high 15-37 [facility] Comment on above: Performed By: #### U RTPCR #### [facility] [address] [place] [address] Dr. Shilpa Beard Bilirubin [Mass/Vol] 0.5 mg/dL Normal 0.2-1.3 [facility] Comment on above: Performed By: #### U RTPCR #### [facility] [address] [address] [address] Shilpa Beard Calcium [Mass/Vol] 8.8 mg/dL Normal 8.5-10.1 [facility] Comment on above: Performed By: #### U RTPCR #### [facility] [address] [address] [address] Shilpa Beard Chloride [Moles/Vol] 100 mmol/L Normal 98-107 [facility] Comment on above: Performed By: #### U RTPCR #### [facility] [address] [address] [address] Shilpa Beard CO2 [Moles/Vol] 26.7 mmol/L Normal 22.0-30.0 [facility] Comment on above: Performed By: #### U RTPCR #### [facility] [address] [address] [address] Shilpa Beard Creatinine [Mass/Vol] 1.24 mg/dL Critically high 0.52-1.04 [facility] Comment on above: Performed By: #### U RTPCR #### [facility] [address] [address] [address] Shilpa Beard EGFR-AF [place] 50 mL/min/1.73m2 Critically low >=60 [facility] Comment on above: Performed By: #### U RTPCR #### [facility] [address] [address] [address] Shilpa Beard EGFR-NON AF [place] 41 mL/min/1.73m2 Critically low >=60 [facility] Comment on above: Performed By: #### U RTPCR #### [facility] [address] [address] [address] Shilpa Beard Globulin (S) [Mass/Vol] 4.5 g/dL [facility] Comment on above: Performed By: #### U RTPCR #### [facility] [address] [address] [address] Shilpa Beard Glucose [Mass/Vol] 193 mg/dL Critically high 74-106 T [facility] Comment on above: Performed By: #### U RTPCR #### [facility] [address] [address] [address] Shilpa Beard Potassium [Moles/Vol] 4.8 mmol/L Normal 3.4-5.0 [facility] Comment on above: Performed By: #### U RTPCR #### [facility] [address] [place] [address] Dr. Shilpa Beard Protein [Mass/Vol] 7.7 g/dL Normal 6.1-8.2 [facility] Comment on above: Performed By: #### U RTPCR #### [facility] [address] [place] [address] Dr. Shilpa Beard Sodium [Moles/Vol] 135 mmol/L Critically low 137-145 Th [facility] Comment on above: Performed By: #### U RTPCR #### [facility] [address] [place] [address] Dr. Shilpa Beard Urea nitrogen [Mass/Vol] 30.0 mg/dL Critically high 7.0-18.0 [facility] Comment on above: Performed By: #### U RTPCR #### [facility] [address] [place] [address] Dr. Shilpa Beard Urea nitrogen/Creatinine [Mass ratio] 24.2 mg/mg Normal [facility] Comment on above: Performed By: #### U RTPCR #### [facility] [address] [place] [address] Dr. Shilpa Beard TSHon 06-30-2021 TSH 2.982 uIU/mL Normal 0.470-4.68 0 [facility] Comment on above: Performed By: #### U RTPCR #### [facility] [address] [place] [address] Dr. Shilpa Beard TSH RANGE SEE BELOW Normal [facility] Comment on above: Result Comment: <0.3 4 UIU/ml HYPERTHYROID 0.34-5.60 UIU/ml EUTHYROID >5.60 UIU/ml HYPOTHYROID Performed By: #### U RTPCR #### [facility] [address] [place] [address] Dr. Shilpa Beard URIC ACID SERUMon 06-30-2021 Urate [Mass/Vol] 7.9 mg/dL Critically high 2.5-6.2 [facility] Comment on above: Performed By: #### L IPID, URIC, TSH, CMP #### [facility] [address] [address] [address] Shilpa Beard URINE T PROTEIN CREAT RATIOo n 06-30-2021 Protein (U) [Mass/Vol] 50.5 mg/dL Critically high <=12.0 [facility] Comment on above: Performed By: #### U RTPCR #### [facility] [address] [address] [address] Shilpa Beard UR PROT CREAT RAT 0.22 Normal [facility] Comment on above: Performed By: #### U RTPCR #### [facility] [address] [place] [address] Dr. Shilpa Beard URINE CREAT 230.96 mg/dL Normal 20.00-300. 00 [facility] Comment on above: Performed By: #### U RTPCR #### [facility] [address] [address] [address] Shilpa Beard CNPTOUTREACHon 04-15-2020 CNPTOUTREA Patient Outreach ([place] OCC3) -- MOHAN ESPINOZA ([id number]) 1935 F Date Time Provider Department 04/15/20 [...] Fully Assessed Order(s):SARS-COVID VACCINE 1ST DOSE APPT [[id number]] Order #: [id number] FUTURE Prescriptions as of 04/15/2020 Sig: CLOPIDOGREL [...] (HCC) [C91.41]11/04/2015 Letter Text Encounter Status:Closed by [employer] on 04/18/20 [facility] PROGRESSon 09-18-2019 PROGRESS HNO ID: [id number] Author: Saeid Szymanski) Thad Service: ? Author Type: Physician Type: Progress Notes Filed: 09/18/2019 4:23 PM Note Text: PATIENT NAME: Mohan Espinoza [facility] NO.: [id number] ATTENDING PHYSICIAN: Saeid Oneil MD DATE OF [...] - Gout - Heart attack (HCC) 04/06/2018 [facility] - Hematuria - History of DVT (deep [...] 09/08/2018 2.53 1.00 - 4.00 k/uL Final [place]% Date Value Ref Range Status 09/08/2018 13.5 % Final Abs [facility] Date Value Ref Range Status 09/08/2018 0.78 [...] do not hesitate to contact me at [phone]. Saeid Oneil MD Hematology/Medical Oncology [facility] CC: Irlanda Baker MD Normal [facility] BASIC METABOLIC PANELon 03-23 Calcium [Mass/Vol] 9.1 mg/dL Normal 8.6-10.3 [facility] Comment on above: Order Comment: No: D o not add to previous draw Performed By: #### 0 0071, 54047, 08409, 61144, 68977, 27094 #### [facility] [address] [place] [address], [place] Chloride [Moles/Vol] 113 mmol/L High 98-107 [facility] Comment on above: Order Comment: No: D o not add to previous draw Performed By: #### 0 0071, 48463, 43495, 99142, 66634, 90249 #### [facility] [address] [place] [address], [place] CO2 [Moles/Vol] 26 mmol/L Normal 21-31 [facility] Comment on above: Order Comment: No: D o not add to previous draw Performed By: #### 0 0071, 25441, 76002, 84152, 55283, 08067 #### [facility] [address] [place] [address], [place] Creatinine [Mass/Vol] 0.95 mg/dL Normal 0.60-1.20 [facility] Comment on above: Order Comment: No: D o not add to previous draw Performed By: #### 0 0071, 67732, 67216, 96836, 46501, 55991 #### [facility] [address] [place] [address], [facility] GFR/1.73 sq M predicted among blacks MDRD (S/P/Bld) [Vol rate/Area] mL/min/{1.73_m2} Normal >60 [facility] Comment on above: Order Comment: No: D o not add to previous draw Result Comment: Calc ulation may not be valid for patients over 70 years Performed By: #### 0 0071, 38832, 13284, 17216, 01729, 48932 #### [facility] [address] [place] [address], [facility] GFR/1.73 sq M predicted among non-blacks MDRD (S/P/Bld) [Vol rate/Area] 56 ml/min/1.73sq m Abnormal >60 [facility] Comment on above: Order Comment: No: D o not add to previous draw Result Comment: Calc ulation may not be valid for patients over 70 years Performed By: #### 0 0071, 68683, 38403, 81428, 54740, 34518 #### [facility] [address] [place] [address], [facility] Glucose [Mass/Vol] 169 mg/dL High 70-100 [facility] Comment on above: Order Comment: No: D o not add to previous draw Performed By: #### 0 0071, 73723, 92058, 87969, 61351, 80455 #### [facility] [address] [place] [address], [facility] Potassium [Moles/Vol] 4.5 mmol/L Normal 3.5-5.1 [facility] Comment on above: Order Comment: No: D o not add to previous draw Performed By: #### 0 0071, 45324, 97462, 77209, 49932, 80916 #### [facility] [address] Sodium [Moles/Vol] 147 mmol/L High 136-145 [facility] Comment on above: Order Comment: No: D o not add to previous draw Performed By: #### 0 0071, 86946, 55988, 03428, 65265, 67024 #### [facility] [address] [facility]. [address] Urea nitrogen [Mass/Vol] 18 mg/dL Normal 7-25 [facility] Comment on above: Order Comment: No: D o not add to previous draw Performed By: #### 0 0071, 83225, 39867, 56759, 40093, 74443 #### [facility] [address] CBC W/DIFFon 04-10-2018 ABS BASOPHILS 0.1 10*3/uL Normal 0.0-0.2 [facility] Comment on above: Order Comment: No: D o not add to previous draw Performed By: #### 0 0071, 59395, 98480, 87356, 53625, 80308 #### [facility] [address] ABS IMM GRANS 0.1 10*3/uL Normal 0.0-0.2 [facility] Comment on above: Order Comment: No: D o not add to previous draw Performed By: #### 0 0071, 11854, 26593, 48046, 60634, 52651 #### [facility] [address] ABS NEUTROPHILS 2.2 10*3/uL Normal 1.6-7.6 [facility] Comment on above: Order Comment: No: D o not add to previous draw Performed By: #### 0 0071, 09800, 30849, 59813, 15989, 24237 #### [facility] [address] Basophils/100 WBC (Bld) 1.0 % Normal 0.0-1.0 [facility] Comment on above: Order Comment: No: D o not add to previous draw Performed By: #### 0 0071, 33800, 65753, 48100, 85043, 46571 #### [facility] [address] [place] [address], [facility] Eosinophils (Bld) [#/Vol] 0.0 10*3/uL Normal 0.0-0.5 [facility] Comment on above: Order Comment: No: D o not add to previous draw Performed By: #### 0 0071, 27772, 70979, 18467, 44904, 02475 #### [facility] [address] [place] [address], [facility] Eosinophils/100 WBC (Bld) 0.0 % Normal 0.0-6.0 [facility] Comment on above: Order Comment: No: D o not add to previous draw Performed By: #### 0 0071, 62098, 31889, 81032, 52569, 85413 #### [facility] [address] [place] [address], [facility] Erythrocyte distribution width (RBC) [Ratio] 12.9 % Normal 11.5-15.0 [facility] Comment on above: Order Comment: No: D o not add to previous draw Performed By: #### 0 0071, 22567, 77288, 87818, 75430, 84907 #### [facility] [address] [place] [address], [place] Hematocrit (Bld) [Volume fraction] 35.3 % Low 36.0-45.0 [facility] Comment on above: Order Comment: No: D o not add to previous draw Performed By: #### 0 0071, 58294, 46075, 73677, 04417, 19896 #### [facility] [address] [place] [address], [facility] Hemoglobin (Bld) [Mass/Vol] 11.7 g/dL Low 12.0-15.0 [facility] Comment on above: Order Comment: No: D o not add to previous draw Performed By: #### 0 0071, 67291, 09239, 42954, 76967, 74171 #### [facility] [address] [place] [address], [facility] IMMATURE GRANS 1.0 % Normal 0.0-1.0 [facility] Comment on above: Order Comment: No: D o not add to previous draw Performed By: #### 0 0071, 57614, 04082, 25182, 89005, 36959 #### [facility] [address] [facility] [place] [address], [facility] Lymphocytes (Bld) [#/Vol] 1.9 10*3/uL Normal 1.2-4.0 [facility] Comment on above: Order Comment: No: D o not add to previous draw Performed By: #### 0 0071, 73088, 70424, 11544, 41741, 15302 #### [facility] [address] [facility] [place] [address], [facility] Lymphocytes/100 WBC (Bld) 39.0 % Normal 20.0-45.0 [facility] Comment on above: Order Comment: No: D o not add to previous draw Performed By: #### 0 0071, 10492, 46495, 05091, 49345, 83095 #### [facility] [address] [place] [address], [facility] MCH (RBC) [Entitic mass] 29.9 pg Normal 27.0-33.0 [facility] Comment on above: Order Comment: No: D o not add to previous draw Performed By: #### 0 0071, 51557, 97010, 08048, 50801, 16009 #### [facility] [address] [place] [address], [facility] MCHC (RBC) [Mass/Vol] 33.1 g/dL Normal 32.0-35.0 [facility] Comment on above: Order Comment: No: D o not add to previous draw Performed By: #### 0 0071, 93563, 18988, 04665, 08571, 65488 #### [facility] [address] [place] [address], [facility] MCV (RBC) [Entitic vol] 90.3 fL Normal 82.0-98.0 [facility] Comment on above: Order Comment: No: D o not add to previous draw Performed By: #### 0 0071, 35429, 58726, 03709, 24089, 44959 #### [facility] [address] [facility] [place] [address], [facility] Monocytes (Bld) [#/Vol] 0.7 10*3/uL Normal 0.1-1.0 [facility] Comment on above: Order Comment: No: D o not add to previous draw Performed By: #### 0 0071, 75443, 05680, 83901, 56200, 30785 #### [facility] [address] [facility] [place] [address], [facility] MONOS 14.8 % High 5.0-12.0 [facility] Comment on above: Order Comment: No: D o not add to previous draw Performed By: #### 0 0071, 12477, 62088, 95817, 67477, 33427 #### [facility] [address] [facility] [place] [address], [facility] Neutrophils/100 WBC (Bld) 44.2 % Normal 40.0-72.0 [facility] Comment on above: Order Comment: No: D o not add to previous draw Performed By: #### 0 0071, 34847, 85901, 49573, 99383, 89994 #### [facility] [address] [place] [address], [facility] Nucleated RBC/100 WBC (Bld) [Ratio] 0 % Normal 0-0 [facility] Comment on above: Order Comment: No: D o not add to previous draw Performed By: #### 0 0071, 99195, 12101, 58208, 51891, 58791 #### [facility] [address] [facility] [place] [address], [facility] PLAT CNT 178 10*3/uL Normal 150-400 [facility] Comment on above: Order Comment: No: D o not add to previous draw Performed By: #### 0 0071, 00733, 60238, 29671, 67727, 01321 #### [facility] [address] [facility] [place] [address], [facility] RBC (Bld) [#/Vol] 3.91 10*6/uL Normal 3.80-5.00 [facility] Comment on above: Order Comment: No: D o not add to previous draw Performed By: #### 0 0071, 03295, 27711, 04775, 21659, 74760 #### [facility] [address] [facility] [place] [address], [facility] WBC (Bld) [#/Vol] 4.92 10*3/uL Normal 4.00-10.60 [facility] Comment on above: Order Comment: No: D o not add to previous draw Performed By: #### 0 0071, 05747, 55488, 20648, 80321, 14585 #### [facility] [address] [facility] [place] [address], [facility] POC GLUCOSE LABon 04-10-2018 Glucose [Mass/Vol] 245 mg/dL High 70-100 [facility] Comment on above: Performed By: #### 0 0071, 33422, 96795, 45996, 92431, 38110 #### [facility] [address] [facility] [place] [address], [facility] Glucose [Mass/Vol] 220 mg/dL High 70-100 [facility] Comment on above: Performed By: #### 0 0071, 52126, 23470, 43310, 72208, 33704 #### [facility] [address] [facility]. [address] PROTHROMBIN TIMEon 9 INR Coag (PPP) [Relative time] 1.84 {INR} High 0.91-1.16 [facility] Comment on above: Result Comment: [...] CHEST 1995;108:231S-246S. Performed By: #### 0 0071, 00135, 84023, 20730, 79131, 46793 #### [facility] [address] [facility]. [address] PT Coag (PPP) [Time] 21.3 s High 12.3-14.8 [facility] Comment on above: Result Comment: ALL RESULTS MUST BE INTERPRETED WITH RESPECT TO BLOOD DRAWING ARTIFACT OR DILUTION ERROR OF ANTICOAGULANT AT THE TIME OF SAMPLING. Performed By: #### 0 0071, 09090, 77212, 97808, 94021, 11177 #### [facility] [address] BASIC METABOLIC PANELon 03-22 Calcium [Mass/Vol] 8.5 mg/dL Low 8.6-10.3 [facility] Comment on above: Order Comment: No: D o not add to previous draw Performed By: #### 0 0071, 17091, 70404, 21548, 40803, 61345 #### [facility] [address] [place] [address], [facility] Chloride [Moles/Vol] 104 mmol/L Normal 98-107 [facility] Comment on above: Order Comment: No: D o not add to previous draw Performed By: #### 0 0071, 64812, 32857, 34399, 42760, 24974 #### [facility] [address] [place] [address], [place] CO2 [Moles/Vol] 24 mmol/L Normal 21-31 [facility] Comment on above: Order Comment: No: D o not add to previous draw Performed By: #### 0 0071, 35698, 55030, 84512, 74417, 90608 #### [facility] [address] [place] [address], [facility] Creatinine [Mass/Vol] 0.90 mg/dL Normal 0.60-1.20 [facility] Comment on above: Order Comment: No: D o not add to previous draw Performed By: #### 0 0071, 09528, 37357, 74933, 58932, 90365 #### [facility] [address] [place] [address], [place] GFR/1.73 sq M predicted among blacks MDRD (S/P/Bld) [Vol rate/Area] mL/min/{1.73_m2} Normal >60 [facility] Comment on above: Order Comment: No: D o not add to previous draw Result Comment: Calc ulation may not be valid for patients over 70 years Performed By: #### 0 0071, 87622, 31415, 06473, 81489, 90931 #### [facility] [address] [place] [address], [place] GFR/1.73 sq M predicted among non-blacks MDRD (S/P/Bld) [Vol rate/Area] mL/min/{1.73_m2} Normal >60 [facility] Comment on above: Order Comment: No: D o not add to previous draw Result Comment: Calc ulation may not be valid for patients over 70 years Performed By: #### 0 0071, 94892, 55877, 42981, 82225, 07764 #### [facility] [address] [place] [address], [place] Glucose [Mass/Vol] 173 mg/dL High 70-100 [facility] Comment on above: Order Comment: No: D o not add to previous draw Performed By: #### 0 0071, 05534, 74937, 33959, 24375, 03793 #### [facility] [address] [place] [address], [place] Potassium [Moles/Vol] 4.1 mmol/L Normal 3.5-5.1 [facility] Comment on above: Order Comment: No: D o not add to previous draw Performed By: #### 0 0071, 20412, 31291, 58891, 20511, 91171 #### [facility] [address] [place] [address], [place] Sodium [Moles/Vol] 136 mmol/L Normal 136-145 [facility] Comment on above: Order Comment: No: D o not add to previous draw Performed By: #### 0 0071, 41652, 97131, 22359, 38400, 84894 #### [facility] [address] [place] [address], [place] Urea nitrogen [Mass/Vol] 21 mg/dL Normal 7-25 [facility] Comment on above: Order Comment: No: D o not add to previous draw Performed By: #### 0 0071, 81579, 42830, 46936, 76870, 45099 #### [facility] [address] [place] [address], [place] CBC COMPLETE BLOOD COUNTon 0 - Erythrocyte distribution width (RBC) [Ratio] 12.9 % Normal 11.5-15.0 [facility] Comment on above: Order Comment: No: D o not add to previous draw Performed By: #### 0 0071, 07577, 35465, 45361, 10599, 28737 #### [facility] [address] [place] [address], [facility] Hematocrit (Bld) [Volume fraction] 35.1 % Low 36.0-45.0 [facility] Comment on above: Order Comment: No: D o not add to previous draw Performed By: #### 0 0071, 08518, 40416, 43055, 88842, 53568 #### [facility] [address] [place] [address], [facility] Hemoglobin (Bld) [Mass/Vol] 11.4 g/dL Low 12.0-15.0 [facility] Comment on above: Order Comment: No: D o not add to previous draw Performed By: #### 0 0071, 09816, 72545, 91133, 40389, 76496 #### [facility] [address] [place] [address], [facility] MCH (RBC) [Entitic mass] 29.8 pg Normal 27.0-33.0 [facility] Comment on above: Order Comment: No: D o not add to previous draw Performed By: #### 0 0071, 80871, 46694, 71078, 13495, 38556 #### [facility] [address] [place] [address], [facility] MCHC (RBC) [Mass/Vol] 32.5 g/dL Normal 32.0-35.0 [facility] Comment on above: Order Comment: No: D o not add to previous draw Performed By: #### 0 0071, 24427, 79522, 57142, 04736, 17705 #### [facility] [address] [place] [address], [facility] MCV (RBC) [Entitic vol] 91.9 fL Normal 82.0-98.0 [facility] Comment on above: Order Comment: No: D o not add to previous draw Performed By: #### 0 0071, 11562, 15275, 90009, 22551, 47148 #### [facility] [address] [place] [address], [facility] Nucleated RBC/100 WBC (Bld) [Ratio] 0 % Normal 0-0 [facility] Comment on above: Order Comment: No: D o not add to previous draw Performed By: #### 0 0071, 64968, 34914, 53878, 03208, 98769 #### [facility] [address] [place] [address], [facility] PLAT CNT 171 10*3/uL Normal 150-400 [facility] Comment on above: Order Comment: No: D o not add to previous draw Performed By: #### 0 0071, 41228, 98233, 95379, 70799, 51116 #### [facility] [address] [address], [facility] RBC (Bld) [#/Vol] 3.82 10*6/uL Normal 3.80-5.00 [facility] Comment on above: Order Comment: No: D o not add to previous draw Performed By: #### 0 0071, 00254, 68305, 12804, 14764, 10161 #### [facility] [address] [place] [address], [facility] WBC (Bld) [#/Vol] 5.35 10*3/uL Normal 4.00-10.60 [facility] Comment on above: Order Comment: No: D o not add to previous draw Performed By: #### 0 0071, 03762, 09095, 18075, 81263, 77860 #### [facility] [address] [facility] [place] [address], [facility] Cardiovascular Lab Reporton 04-09-2018 Cardiovascular Lab Report [facility] Patient Name: Mohan Espinoza [facility] MR #: [id number] Physician: Jane Clark of [facility] Medicine Service Date: 04/08/2018 Division of Birthdate: 1935 Cardiology Room #: [id number] Adult Cardiovascular Services [place] [address] [place] [address] Cardiovascular Laboratory Report CARDIAC CATHETERIZATION REPORT INDICATION: The patient is an 82-year-old woman with coronary artery disease status post bypass surgery in the past. She is admitted with a urinary tract infection and cja-MH-silxahd elevation myocardial infarction. She was referred for [...] signed informed consent. She was brought to cath lab manager in a fasting state. The right groin area was prepped and draped in usual fashion. Using micropuncture technique, the right common femoral artery was accessed. The inner cannula was advanced and the right femoral angiography was performed followed by upsizing to a 6-Tunisian x 11 cm sheath. Bilateral selective coronary angiography was then performed using 6-Tunisian JL4 and JR4 diagnostic catheters. A 6-Tunisian AR2 diagnostic catheter was used to selectively engage the saphenous venous graft to the obtuse marginal branch and right coronary artery and the radial graft to the diagonal branch. Angiography was performed. Catheter was removed. A 6-Tunisian FRANCES diagnostic catheter was used to selectively engage the left subclavian artery and then selectively engage. The left internal mammary artery angiography was performed. Catheter was removed. Heparin was administered intravenously and therapeutic ACT confirmed during the procedure. A 6-Tunisian JR4 guiding catheter was advanced and used [...] was then performed using a NC Quantum Cooks 2.5 x 8 mm balloon inflated at [...] 32 mm drug-eluting stent deployed in the kmvgdeft-di-jgt RCA at 11 atmospheres. Following that, NC Quantum Cooks 2.5 x 8 mm noncompliant balloon was advanced into the distal stent and used to perform postdilatation at 16 atmospheres followed by postdilatation using NC Quantum Cooks 3.0 x 8 mm balloon inflated at 18 atmospheres in the distal stent of the mid segment followed by additional postdilatation using NC Quantum Cooks 3.0 x 20 mm noncompliant balloon inflated at 18 atmospheres in the nvldicjm-va-pvc segment stent. Intracoronary nitroglycerin 100 mcg was administered followed by final angiography, which showed excellent result with reduction of the stenosis to 0%. No evidence of dissection or perforation. The guiding catheter was removed. Procedure was concluded. The right femoral arteriotomy was managed with a 6-Tunisian Angio-Seal device with good hemostasis. She tolerated [...] throughout its course reaching 99% in the fummsqxu-ka-aur segment. Another lesion was 90% in the uns-pb-sywafe segment and then this was followed by [...] graft to the PDA). 3. A 99% eqxkttof-lv-mbv, 90% mid, and 99% kok-yx-wkxzsb stenosis in the RCA, all reduced to [...] P Jane Randolph M.D. Date Dict: 04/08/2018/05:57 Shashank/Jane Randolph M.D. Date Trans: 04/09/2018 06:33 A/alli [id number] cc: Romario Baker M.D. [address] [place] [address] Robert Tompkins M.D. [address] [place] [address] Normal [facility] MAGNESIUM BLOODon 04-09-2018 Magnesium [Mass/Vol] 1.6 mg/dL Low 1.9-2.7 [facility] Comment on above: Order Comment: No: D o not add to previous draw Performed By: #### 0 0071, 72830, 06137, 57132, 30910, 73548 #### [facility] [address] [facility] [place] [address], [facility] POC GLUCOSE LABon 04-09-2018 Glucose [Mass/Vol] 253 mg/dL High 70-100 [facility] Comment on above: Performed By: #### 0 0071, 12848, 73466, 03051, 04022, 73744 #### [facility] [address] [facility] [place] [address], [place] Glucose [Mass/Vol] 161 mg/dL High 70-100 [facility] Comment on above: Performed By: #### 0 0071, 40260, 22690, 83730, 82826, 90373 #### [facility] [address] [place] [address], [place] Glucose [Mass/Vol] 244 mg/dL High 70-100 [facility] Comment on above: Performed By: #### 0 0071, 99241, 88006, 61290, 26345, 36449 #### [facility] [address] [place] [address], [place] Glucose [Mass/Vol] 175 mg/dL High 70-100 [facility] Comment on above: Performed By: #### 0 0071, 47574, 18570, 16029, 43719, 82478 #### [facility] [address] [facility] [facility] PROTHROMBIN TIMEon 9 INR Coag (PPP) [Relative time] 1.72 {INR} High 0.91-1.16 [facility] Comment on above: Result Comment: [...] CHEST 1995;108:231S-246S. Performed By: #### 0 0071, 65547, 51817, 45004, 32345, 61094 #### [facility] [address] [facility] [place] [address], [facility] PT Coag (PPP) [Time] 20.2 s High 12.3-14.8 [facility] Comment on above: Result Comment: ALL RESULTS MUST BE INTERPRETED WITH RESPECT TO BLOOD DRAWING ARTIFACT OR DILUTION ERROR OF ANTICOAGULANT AT THE TIME OF SAMPLING. Performed By: #### 0 0071, 92807, 82904, 90947, 35521, 62783 #### [facility] [address] BASIC METABOLIC PANELon 03-22 Calcium [Mass/Vol] 9.1 mg/dL Normal 8.6-10.3 [facility] Comment on above: Order Comment: No: D o not add to previous draw Performed By: #### 0 0071, 07803, 14396, 89733, 49769, 14296 #### [facility] [address] [place] [address], [place] Chloride [Moles/Vol] 103 mmol/L Normal 98-107 [facility] Comment on above: Order Comment: No: D o not add to previous draw Performed By: #### 0 0071, 52141, 81950, 16690, 80928, 14608 #### [facility] [address] [place] [address], [place] CO2 [Moles/Vol] 24 mmol/L Normal 21-31 [facility] Comment on above: Order Comment: No: D o not add to previous draw Performed By: #### 0 0071, 93258, 27950, 72015, 50362, 53861 #### [facility] [address] [place] [address], [place] Creatinine [Mass/Vol] 0.95 mg/dL Normal 0.60-1.20 [facility] Comment on above: Order Comment: No: D o not add to previous draw Performed By: #### 0 0071, 15113, 27594, 05345, 59702, 52402 #### [facility] [address] [place] [address], [place] GFR/1.73 sq M predicted among blacks MDRD (S/P/Bld) [Vol rate/Area] mL/min/{1.73_m2} Normal >60 [facility] Comment on above: Order Comment: No: D o not add to previous draw Result Comment: Calc ulation may not be valid for patients over 70 years Performed By: #### 0 0071, 87543, 78180, 85813, 84422, 93001 #### [facility] [address] [place] [address], [place] GFR/1.73 sq M predicted among non-blacks MDRD (S/P/Bld) [Vol rate/Area] 56 ml/min/1.73sq m Abnormal >60 [facility] Comment on above: Order Comment: No: D o not add to previous draw Result Comment: Calc ulation may not be valid for patients over 70 years Performed By: #### 0 0071, 87611, 85370, 93927, 53107, 28201 #### [facility] [address] [place] [address], [place] Glucose [Mass/Vol] 158 mg/dL High 70-100 [facility] Comment on above: Order Comment: No: D o not add to previous draw Performed By: #### 0 0071, 32378, 00486, 98319, 48917, 34988 #### [facility] [address] [place] [address], [place] Potassium [Moles/Vol] 4.3 mmol/L Normal 3.5-5.1 [facility] Comment on above: Order Comment: No: D o not add to previous draw Performed By: #### 0 0071, 34909, 30454, 06482, 54634, 38157 #### [facility] [address] [place] [address], [place] Sodium [Moles/Vol] 134 mmol/L Low 136-145 [facility] Comment on above: Order Comment: No: D o not add to previous draw Performed By: #### 0 0071, 24058, 69172, 73075, 03401, 09086 #### [facility] [address] [place] [address], [place] Urea nitrogen [Mass/Vol] 24 mg/dL Normal 7-25 [facility] Comment on above: Order Comment: No: D o not add to previous draw Performed By: #### 0 0071, 35842, 02211, 17164, 36530, 65973 #### [facility] [address] [place] [address], [place] CBC COMPLETE BLOOD COUNTon 0 -18-2019 Erythrocyte distribution width (RBC) [Ratio] 13.0 % Normal 11.5-15.0 [facility] Comment on above: Order Comment: No: D o not add to previous draw Performed By: #### 0 0071, 76614, 64308, 35276, 27208, 01437 #### [facility] [address] [place] [id number], [facility] Hematocrit (Bld) [Volume fraction] 38.4 % Normal 36.0-45.0 [facility] Comment on above: Order Comment: No: D o not add to previous draw Performed By: #### 0 0071, 85162, 96197, 11044, 87340, 18805 #### [facility] [address] [place] [address], [facility] Hemoglobin (Bld) [Mass/Vol] 12.7 g/dL Normal 12.0-15.0 [facility] Comment on above: Order Comment: No: D o not add to previous draw Performed By: #### 0 0071, 18999, 66728, 87143, 17920, 30949 #### [facility] [address] [place] [address], [facility] MCH (RBC) [Entitic mass] 30.4 pg Normal 27.0-33.0 [facility] Comment on above: Order Comment: No: D o not add to previous draw Performed By: #### 0 0071, 88228, 18691, 32583, 02071, 42922 #### [facility] [address] [place] [address], [facility] MCHC (RBC) [Mass/Vol] 33.1 g/dL Normal 32.0-35.0 [facility] Comment on above: Order Comment: No: D o not add to previous draw Performed By: #### 0 0071, 39428, 89661, 36271, 25852, 85629 #### [facility] [address] [place] [address], [facility] MCV (RBC) [Entitic vol] 91.9 fL Normal 82.0-98.0 [facility] Comment on above: Order Comment: No: D o not add to previous draw Performed By: #### 0 0071, 79500, 96568, 07910, 80895, 42039 #### [facility] [address] [place] [address], [facility] Nucleated RBC/100 WBC (Bld) [Ratio] 0 % Normal 0-0 [facility] Comment on above: Order Comment: No: D o not add to previous draw Performed By: #### 0 0071, 99845, 39469, 45270, 95279, 83050 #### [facility] [address] [facility] [place] [address], [facility] PLAT CNT 164 10*3/uL Normal 150-400 [facility] Comment on above: Order Comment: No: D o not add to previous draw Performed By: #### 0 0071, 86572, 75228, 23822, 04524, 52082 #### [facility] [address] [place] [address], [facility] RBC (Bld) [#/Vol] 4.18 10*6/uL Normal 3.80-5.00 [facility] Comment on above: Order Comment: No: D o not add to previous draw Performed By: #### 0 0071, 58286, 35196, 26898, 54186, 57816 #### [facility] [address] [facility] [place] [address], [facility] WBC (Bld) [#/Vol] 6.62 10*3/uL Normal 4.00-10.60 [facility] Comment on above: Order Comment: No: D o not add to previous draw Performed By: #### 0 0071, 63334, 08443, 49201, 89260, 43113 #### [facility] [address] [place] [address], [facility] MAGNESIUM BLOODon 04-08-2018 Magnesium [Mass/Vol] 1.9 mg/dL Normal 1.9-2.7 [facility] Comment on above: Order Comment: No: D o not add to previous draw Performed By: #### 0 0071, 69106, 59471, 36398, 86292, 68727 #### [facility] [address] [place] [address], [facility] POC GLUCOSE LABon 04-08-2018 Glucose [Mass/Vol] 199 mg/dL High 70-100 [facility] Comment on above: Performed By: #### 0 0071, 41534, 65380, 59940, 65202, 90612 #### [facility] [address] [place] [address], [place] Glucose [Mass/Vol] 198 mg/dL High 70-100 [facility] Comment on above: Performed By: #### 0 0071, 68848, 69490, 89556, 99758, 97358 #### [facility] [address] [place] [address], [facility] Glucose [Mass/Vol] 155 mg/dL High 70-100 [facility] Comment on above: Performed By: #### 0 0071, 35843, 75663, 58288, 22110, 07688 #### [facility] [address] [place] [address], [facility] PROTHROMBIN TIMEon 9 INR Coag (PPP) [Relative time] 1.68 {INR} High 0.91-1.16 [facility] Comment on above: Result Comment: [...] CHEST 1995;108:231S-246S. Performed By: #### 0 0071, 81172, 58359, 90995, 71225, 79953 #### [facility] [address] PT Coag (PPP) [Time] 19.9 s High 12.3-14.8 [facility] Comment on above: Result Comment: ALL RESULTS MUST BE INTERPRETED WITH RESPECT TO BLOOD DRAWING ARTIFACT OR DILUTION ERROR OF ANTICOAGULANT AT THE TIME OF SAMPLING. Performed By: #### 0 0071, 96960, 22572, 04142, 26437, 02862 #### [facility] [address] *RAPID FLU AANDB BY MITCHELL Connor 04-07-2018 *RAPID FLU AANDB BY MOLECULAR Clinical Report: (D) Specimen: NASAL SWAB Collected: 04/06/2018 22:10 Status: Final Last Updated: 04/06/2018 23:10 FLUA RNA (Final) Negative FLUB RNA (Final) Negative Normal [facility] Comment on above: Performed By: #### 0 0071, 98585, 66784, 95887, 22392, 38886 #### [facility] [address] BASIC METABOLIC PANELon 03-22 Calcium [Mass/Vol] 8.3 mg/dL Low 8.6-10.3 [facility] Comment on above: Order Comment: No: D o not add to previous draw Performed By: #### 0 0071, 01584, 62906, 94484, 85393, 71168 #### [facility] [address] [place] [address], [facility] Chloride [Moles/Vol] 105 mmol/L Normal 98-107 [facility] Comment on above: Order Comment: No: D o not add to previous draw Performed By: #### 0 0071, 24891, 97045, 87383, 49786, 95174 #### [facility] [address] [place] [address], [place] CO2 [Moles/Vol] 24 mmol/L Normal 21-31 [facility] Comment on above: Order Comment: No: D o not add to previous draw Performed By: #### 0 0071, 86601, 01533, 98208, 62375, 89178 #### [facility] [address] [place] [address], [facility] Creatinine [Mass/Vol] 1.24 mg/dL High 0.60-1.20 [facility] Comment on above: Order Comment: No: D o not add to previous draw Performed By: #### 0 0071, 98917, 92067, 50009, 68007, 00303 #### [facility] [address] [place] [address], [place] GFR/1.73 sq M predicted among blacks MDRD (S/P/Bld) [Vol rate/Area] 50 ml/min/1.73sq m Abnormal >60 [facility] Comment on above: Order Comment: No: D o not add to previous draw Result Comment: Calc ulation may not be valid for patients over 70 years Performed By: #### 0 0071, 67190, 69843, 74335, 78357, 80948 #### [facility] [address] [place] [address], [place] GFR/1.73 sq M predicted among non-blacks MDRD (S/P/Bld) [Vol rate/Area] 42 ml/min/1.73sq m Abnormal >60 [facility] Comment on above: Order Comment: No: D o not add to previous draw Result Comment: Calc ulation may not be valid for patients over 70 years Performed By: #### 0 0071, 45765, 12275, 68830, 23453, 66869 #### [facility] [address] [facility] [place] [address], [facility] Glucose [Mass/Vol] 166 mg/dL High 70-100 [facility] Comment on above: Order Comment: No: D o not add to previous draw Performed By: #### 0 0071, 07676, 02857, 09416, 22241, [id number] #### [facility] [address] [place] [address], [facility] Potassium [Moles/Vol] 4.2 mmol/L Normal 3.5-5.1 [facility] Comment on above: Order Comment: No: D o not add to previous draw Performed By: #### 0 0071, 59686, 73953, 91014, 06519, 15739 #### [facility] [address] [place] [address], [facility] Sodium [Moles/Vol] 135 mmol/L Low 136-145 [facility] Comment on above: Order Comment: No: D o not add to previous draw Performed By: #### 0 0071, 71045, 57534, 31495, 06561, 51392 #### [facility] [address] [place] [address], [facility] Urea nitrogen [Mass/Vol] 33 mg/dL High 7-25 [facility] Comment on above: Order Comment: No: D o not add to previous draw Performed By: #### 0 0071, 87662, 86198, 00895, 86746, 34969 #### [facility] [address] [facility] [place] [address], [facility] CBC W/DIFFon 04-07-2018 ABS BASOPHILS 0.1 10*3/uL Normal 0.0-0.2 [facility] Comment on above: Order Comment: No: D o not add to previous draw Performed By: #### 0 0071, 75564, 52226, 72584, 77438, 98912 #### [facility] [address] [place] [address], [facility] ABS IMM GRANS 0.1 10*3/uL Normal 0.0-0.2 [facility] Comment on above: Order Comment: No: D o not add to previous draw Performed By: #### 0 0071, 19028, 60665, 07876, 17705, 57051 #### [facility] [address] [place] [address], [facility] ABS NEUTROPHILS 6.4 10*3/uL Normal 1.6-7.6 [facility] Comment on above: Order Comment: No: D o not add to previous draw Performed By: #### 0 0071, 42245, 99614, 75428, 55228, 00198 #### [facility] [address] [place] [address], [facility] Basophils/100 WBC (Bld) 0.5 % Normal 0.0-1.0 [facility] Comment on above: Order Comment: No: D o not add to previous draw Performed By: #### 0 0071, 17620, 68907, 17589, 22842, 11598 #### [facility] [address] [place] [address], [facility] Eosinophils (Bld) [#/Vol] 0.0 10*3/uL Normal 0.0-0.5 [facility] Comment on above: Order Comment: No: D o not add to previous draw Performed By: #### 0 0071, 54071, 60380, 88935, 03779, 89955 #### [facility] [address] [facility] [place] [address], [facility] Eosinophils/100 WBC (Bld) 0.0 % Normal 0.0-6.0 [facility] Comment on above: Order Comment: No: D o not add to previous draw Performed By: #### 0 0071, 84868, 72776, 95771, 09020, 55064 #### [facility] [address] [place] [address], [facility] Erythrocyte distribution width (RBC) [Ratio] 13.2 % Normal 11.5-15.0 [facility] Comment on above: Order Comment: No: D o not add to previous draw Performed By: #### 0 0071, 88668, 95880, 63794, 50062, 33131 #### [facility] [address] Hematocrit (Bld) [Volume fraction] 35.0 % Low 36.0-45.0 [facility] Comment on above: Order Comment: No: D o not add to previous draw Performed By: #### 0 0071, 01594, 99200, 15914, 10074, 64359 #### [facility] [address] [facility] [facility] Hemoglobin (Bld) [Mass/Vol] 11.4 g/dL Low 12.0-15.0 [facility] Comment on above: Order Comment: No: D o not add to previous draw Performed By: #### 0 0071, 09659, 82509, 20428, 52275, 38868 #### [facility] [address] [facility] IMMATURE GRANS 0.5 % Normal 0.0-1.0 [facility] Comment on above: Order Comment: No: D o not add to previous draw Performed By: #### 0 0071, 83405, 56930, 37254, 10473, 38554 #### [facility] [address] [facility] [place] [address], [facility] Lymphocytes (Bld) [#/Vol] 2.1 10*3/uL Normal 1.2-4.0 [facility] Comment on above: Order Comment: No: D o not add to previous draw Performed By: #### 0 0071, 17659, 45012, 87312, 18307, 44392 #### [facility] [address] [place] [address], [facility] Lymphocytes/100 WBC (Bld) 21.7 % Normal 20.0-45.0 [facility] Comment on above: Order Comment: No: D o not add to previous draw Performed By: #### 0 0071, 09514, 53510, 07387, 16678, 95870 #### [facility] [address] [place] [address], [facility] MCH (RBC) [Entitic mass] 29.8 pg Normal 27.0-33.0 [facility] Comment on above: Order Comment: No: D o not add to previous draw Performed By: #### 0 0071, 61826, 34583, 89345, 40192, 79874 #### [facility] [address] [facility] [place] [address], [facility] MCHC (RBC) [Mass/Vol] 32.6 g/dL Normal 32.0-35.0 [facility] Comment on above: Order Comment: No: D o not add to previous draw Performed By: #### 0 0071, 42648, 96278, 70556, 83408, 41009 #### [facility] [address] [place] [address], [facility] MCV (RBC) [Entitic vol] 91.4 fL Normal 82.0-98.0 [facility] Comment on above: Order Comment: No: D o not add to previous draw Performed By: #### 0 0071, 58369, 26938, 60785, 60671, 13300 #### [facility] [address] [facility] [place] [address], [facility] Monocytes (Bld) [#/Vol] 1.0 10*3/uL Normal 0.1-1.0 [facility] Comment on above: Order Comment: No: D o not add to previous draw Performed By: #### 0 0071, 89910, 59710, 99468, 12198, 50789 #### [facility] [address] [place] [id number], [facility] MONOS 10.6 % Normal 5.0-12.0 [facility] Comment on above: Order Comment: No: D o not add to previous draw Performed By: #### 0 0071, 35396, 58298, 59823, 58232, 66163 #### [facility] [address] [place] [address], [facility] Neutrophils/100 WBC (Bld) 66.7 % Normal 40.0-72.0 [facility] Comment on above: Order Comment: No: D o not add to previous draw Performed By: #### 0 0071, 37459, 66905, 65071, 27415, 37764 #### [facility] [address] [place] [address], [facility] Nucleated RBC/100 WBC (Bld) [Ratio] 0 % Normal 0-0 [facility] Comment on above: Order Comment: No: D o not add to previous draw Performed By: #### 0 0071, 29117, 50944, 96153, 94808, 62474 #### [facility] [address] [place] [address], [facility] PLAT CNT 150 10*3/uL Normal 150-400 [facility] Comment on above: Order Comment: No: D o not add to previous draw Performed By: #### 0 0071, 66323, 42362, 79337, 07283, 43790 #### [facility] [address] [place] [address], [facility] RBC (Bld) [#/Vol] 3.83 10*6/uL Normal 3.80-5.00 [facility] Comment on above: Order Comment: No: D o not add to previous draw Performed By: #### 0 0071, 64498, 10842, 81461, 33647, 41318 #### [facility] [address] [place] [address], [facility] WBC (Bld) [#/Vol] 9.53 10*3/uL Normal 4.00-10.60 [facility] Comment on above: Order Comment: No: D o not add to previous draw Performed By: #### 0 0071, 35000, 77297, 03438, 77118, 16377 #### [facility] [address] [place] [address], [place] MAGNESIUM BLOODon 04-07-2018 Magnesium [Mass/Vol] 1.4 mg/dL Low 1.9-2.7 [facility] Comment on above: Order Comment: No: D o not add to previous draw Performed By: #### 0 0071, 41472, 22498, 77577, 78298, 80615 #### [facility] [address] [place] [address], [place] PHOSPHORUS BLOODon 9 Phosphate [Mass/Vol] 2.6 mg/dL Normal 2.5-5.0 [facility] Comment on above: Order Comment: No: D o not add to previous draw Performed By: #### 0 0071, 59920, 97391, 11259, 03307, 24363 #### [facility] [address] [place] [address], [place] POC GLUCOSE LABon 04-07-2018 Glucose [Mass/Vol] 187 mg/dL High 70-100 [facility] Comment on above: Performed By: #### 0 0071, 21816, 55268, 82328, 85631, 84768 #### [facility] [address] [place] [address], [place] Glucose [Mass/Vol] 182 mg/dL High 70-100 [facility] Comment on above: Performed By: #### 0 0071, 93002, 14711, 23223, 97090, 59779 #### [facility] [address] [place] [address], [place] Glucose [Mass/Vol] 156 mg/dL High 70-100 [facility] Comment on above: Performed By: #### 0 0071, 82463, 64147, 24150, 97825, 50150 #### [facility] [address] [place] [address], [place] Glucose [Mass/Vol] 148 mg/dL High 70-100 [facility] Comment on above: Performed By: #### 0 0071, 40737, 25076, 67243, 27824, 87825 #### [facility] [address] [facility]. [address] PROTHROMBIN TIMEon 9 INR Coag (PPP) [Relative time] 1.65 {INR} High 0.91-1.16 [facility] Comment on above: Result Comment: [...] CHEST 1995;108:231S-246S. Performed By: #### 0 0071, 41930, 49114, 14859, 62150, 84803 #### [facility] [address] [place] [address], [facility] PT Coag (PPP) [Time] 19.6 s High 12.3-14.8 [facility] Comment on above: Result Comment: ALL RESULTS MUST BE INTERPRETED WITH RESPECT TO BLOOD DRAWING ARTIFACT OR DILUTION ERROR OF ANTICOAGULANT AT THE TIME OF SAMPLING. Performed By: #### 0 0071, 81052, 62469, 09110, 17725, 60754 #### [facility] [address] INR Coag (PPP) [Relative time] 1.68 {INR} High 0.91-1.16 [facility] Comment on above: Result Comment: ACCC [...] CHEST 1995;108:[id number]. Performed By: #### 0 0071, 86536, 91373, 43877, 77744, 04768 #### [facility] [address] [place] [address], [facility] PT Coag (PPP) [Time] 19.9 s High 12.3-14.8 [facility] Comment on above: Result Comment: ALL RESULTS MUST BE INTERPRETED WITH RESPECT TO BLOOD DRAWING ARTIFACT OR DILUTION ERROR OF ANTICOAGULANT AT THE TIME OF SAMPLING. Performed By: #### 0 0071, 36449, 02711, 92737, 38958, 52782 #### [facility] [address] [place] [address], [facility] TROPONIN-Ion 04-07-2018 Troponin I.cardiac [Mass/Vol] 0.15 ng/mL Critically high 0.00-0.04 [facility] Comment on above: Order Comment: No: D o not add to previous draw Result Comment: M-MO EVIOUS CRITICAL RESULT REFERENCE RANGES: 0.00 - 0.04 ng/ml NORMAL 0.05 - 0.50 ng/ml INDETERMINATE > 0.50 ng/ml CONSISTENT WITH AN M.I. Performed By: #### 0 0071, 21525, 96458, 36810, 01178, 16414 #### [facility] [address] [place] [address], [facility] Troponin I.cardiac [Mass/Vol] 0.17 ng/mL Critically high 0.00-0.04 [facility] Comment on above: Result Comment: M-MO EVIOUS CRITICAL RESULT REFERENCE RANGES: 0.00 - 0.04 ng/ml NORMAL 0.05 - 0.50 ng/ml INDETERMINATE > 0.50 ng/ml CONSISTENT WITH AN M.I. Performed By: #### 0 0071, 97117, 19180, 52430, 71136, 47993 #### [facility] [address] [facility] [place] [address], [facility] Troponin I.cardiac [Mass/Vol] 0.20 ng/mL Critically high 0.00-0.04 [facility] Comment on above: Order Comment: No: D o not add to previous draw Result Comment: M-MO EVIOUS CRITICAL RESULT REFERENCE RANGES: 0.00 - 0.04 ng/ml NORMAL 0.05 - 0.50 ng/ml INDETERMINATE > 0.50 ng/ml CONSISTENT WITH AN M.I. Performed By: #### 0 0071, 49956, 68635, 06520, 45110, 02351 #### [facility] [address] [place] [address], [facility] URINALYSIS REFLEXon 04-07-19 19 Appearance (U) SL CLOUDY Abnormal CLEAR [facility] Comment on above: Order Comment: No: D o not add to previous draw Performed By: #### 0 0071, 91106, 75115, 48632, 94132, 33278 #### [facility] [address] [place] [address], [facility] Bilirubin [Mass/Vol] Negative Normal NEGATIVE [facility] Comment on above: Order Comment: No: D o not add to previous draw Performed By: #### 0 0071, 95027, 66394, 55893, 28764, 39710 #### [facility] [address] [place] [address], [facility] BLOOD Negative Normal NEGATIVE [facility] Comment on above: Order Comment: No: D o not add to previous draw Performed By: #### 0 0071, 72892, 94994, 64729, 77508, 20306 #### [facility] [address] [place] [address], [place] Color (U) YELLOW Normal YELLOW [facility] Comment on above: Order Comment: No: D o not add to previous draw Performed By: #### 0 0071, 22335, 95354, 07281, 98867, 86178 #### [facility] [address] [address], [place] EPIS MANY Abnormal FEW,OCC,NO NE SEEN [facility] Comment on above: Order Comment: No: D o not add to previous draw Performed By: #### 0 0071, 22295, 05650, 81262, 33687, 77126 #### [facility] [address] [facility] [place] [address], [place] Glucose [Mass/Vol] Negative Normal NEGATIVE [facility] Comment on above: Order Comment: No: D o not add to previous draw Performed By: #### 0 0071, 24229, 26579, 37566, 47838, 55093 #### [facility] [address] [place] [address], [place] KETONE Negative Normal NEGATIVE [facility] Comment on above: Order Comment: No: D o not add to previous draw Performed By: #### 0 0071, 78828, 71950, 02379, 27957, 54523 #### [facility] [address] [place] [address], [place] LEUK LIYAH MODERATE Abnormal NEGATIVE [facility] Comment on above: Order Comment: No: D o not add to previous draw Performed By: #### 0 0071, 37654, 63491, 01661, 56088, 66769 #### [facility] [address] [facility] [address], [facility] Nitrite Ql (U) Negative Normal NEGATIVE [facility] Comment on above: Order Comment: No: D o not add to previous draw Performed By: #### 0 0071, 22879, 89643, 15994, 64709, 49102 #### [facility] [address] [facility] [place] [address], [facility] pH (Bld) 5.0 Normal 5.0-8.0 [facility] Comment on above: Order Comment: No: D o not add to previous draw Performed By: #### 0 0071, 74325, 88559, 68895, 63811, 56590 #### [facility] [address] [facility] [place] [address], [facility] Protein (U) [Mass/Vol] Negative Normal NEGATIVE Th e [facility] Comment on above: Order Comment: No: D o not add to previous draw Performed By: #### 0 0071, 87455, 05678, 30299, 77496, 90107 #### [facility] [address] [place] [address], [facility] RBC (U) [#/Vol] 0-2 Abnormal NONE SEEN [facility] Comment on above: Order Comment: No: D o not add to previous draw Performed By: #### 0 0071, 09902, 02779, 94414, 00174, 60920 #### [facility] [address] [place] [address], [facility] SPEC GRAV 1.019 Normal 1.015-1.02 0 [facility] Comment on above: Order Comment: No: D o not add to previous draw Performed By: #### 0 0071, 94492, 09963, 51584, 71604, 11533 #### [facility] [address] [place] [address], [facility] WBC UA 11-20 Abnormal NONE SEEN [facility] Comment on above: Order Comment: No: D o not add to previous draw Performed By: #### 0 0071, 74865, 35896, 89531, 96109, 59417 #### [facility] [address] [place] [address], [facility] *A-LEGIONELLA AG URon 2018 DIRECT EXAM test. Normal [facility] Comment on above: Order Comment: No: D o not add to previous draw [place] Normal [facility] Comment on above: Order Comment: No: D o not add to previous draw REPORT STATUS FINAL 04/07/2018 Normal [facility] Comment on above: Order Comment: No: D o not add to previous draw *BLOOD CULTUREon 04-06-2018 Bacteria identified Cx Nom (Bld) Clinical Report: (D) Specimen: BLOOD CULTURE Collected: 04/06/2018 19:35 Status: Final Last Updated: 04/12/2018 07:54 (1) x 2 Prior to Antibiotic Administration CULT RES (Final) No Growth Day 5 Normal [facility] Comment on above: Order Comment: No: D o not add to previous draw Performed By: #### 0 0071, 97646, 48057, 15204, 83548, 74697 #### [facility] [address] [place] [address], [facility] Bacteria identified Cx Nom (Bld) Clinical Report: (D) Specimen: BLOOD CULTURE Collected: 04/06/2018 19:34 Status: Final Last Updated: 04/12/2018 07:54 (1) x 2 Prior to Antibiotic Administration CULT RES (Final) No Growth Day 5 Normal [facility] Comment on above: Order Comment: No: D o not add to previous draw Performed By: #### 0 0071, 44363, 66021, 47448, 80872, 77332 #### [facility] [address] [place] [address], [facility] BASIC METABOLIC PANELon 03-22 Calcium [Mass/Vol] 8.5 mg/dL Low 8.6-10.3 [facility] Comment on above: Order Comment: No: D o not add to previous draw Performed By: #### 0 0071, 69534, 56936, 78440, 90594, 48603 #### [facility] [address] [place] [address], [place] Chloride [Moles/Vol] 104 mmol/L Normal 98-107 [facility] Comment on above: Order Comment: No: D o not add to previous draw Performed By: #### 0 0071, 71391, 94824, 47246, 02627, 27769 #### [facility] [address] [place] [address], [place] CO2 [Moles/Vol] 22 mmol/L Normal 21-31 [facility] Comment on above: Order Comment: No: D o not add to previous draw Performed By: #### 0 0071, 94840, 51043, 64739, 36571, 63207 #### [facility] [address] [place] [address], [place] Creatinine [Mass/Vol] 1.41 mg/dL High 0.60-1.20 [facility] Comment on above: Order Comment: No: D o not add to previous draw Performed By: #### 0 0071, 72120, 90657, 70380, 10319, 40621 #### [facility] [address] [place] [address], [place] GFR/1.73 sq M predicted among blacks MDRD (S/P/Bld) [Vol rate/Area] 44 ml/min/1.73sq m Abnormal >60 [facility] Comment on above: Order Comment: No: D o not add to previous draw Result Comment: Calc ulation may not be valid for patients over 70 years Performed By: #### 0 0071, 76810, 02461, 38933, 91611, 76880 #### [facility] [address] [place] [address], [place] GFR/1.73 sq M predicted among non-blacks MDRD (S/P/Bld) [Vol rate/Area] 36 ml/min/1.73sq m Abnormal >60 [facility] Comment on above: Order Comment: No: D o not add to previous draw Result Comment: Calc ulation may not be valid for patients over 70 years Performed By: #### 0 0071, 33991, 48452, 46400, 20724, 16262 #### [facility] [address] [place] [address], [facility] Glucose [Mass/Vol] 198 mg/dL High 70-100 [facility] Comment on above: Order Comment: No: D o not add to previous draw Performed By: #### 0 0071, 74244, 70150, 15178, 56153, 78886 #### [facility] [address] [place] [address], [facility] Potassium [Moles/Vol] 4.7 mmol/L Normal 3.5-5.1 [facility] Comment on above: Order Comment: No: D o not add to previous draw Performed By: #### 0 0071, 76325, 39339, 95364, 39217, 59151 #### [facility] [address] [place] [address], [facility] Sodium [Moles/Vol] 135 mmol/L Low 136-145 [facility] Comment on above: Order Comment: No: D o not add to previous draw Performed By: #### 0 0071, 76852, 80187, 23189, 96487, 26779 #### [facility] [address] [place] [address], [place] Urea nitrogen [Mass/Vol] 34 mg/dL High 7-25 [facility] Comment on above: Order Comment: No: D o not add to previous draw Performed By: #### 0 0071, 80908, 75783, 33230, 76104, 96136 #### [facility] [address] [place] [address], [place] CBC W/DIFFon 04-06-2018 ABS BASOPHILS 0.1 10*3/uL Normal 0.0-0.2 [facility] Comment on above: Performed By: #### 5 0103 #### [facility] [address] [place] [address], [facility] ABS IMM GRANS 0.1 10*3/uL Normal 0.0-0.2 [facility] Comment on above: Performed By: #### 5 0103 #### [facility] [address] ABS NEUTROPHILS 11.3 10*3/uL High 1.6-7.6 [facility] Comment on above: Performed By: #### 5 0103 #### [facility] [address] Basophils/100 WBC (Bld) 0.3 % Normal 0.0-1.0 [facility] Comment on above: Performed By: #### 5 0103 #### [facility] [address] [place] [address], [facility] Eosinophils (Bld) [#/Vol] 0.0 10*3/uL Normal 0.0-0.5 [facility] Comment on above: Performed By: #### 5 0103 #### [facility] [address] [place] [address], [facility] Eosinophils/100 WBC (Bld) 0.0 % Normal 0.0-6.0 [facility] Comment on above: Performed By: #### 5 0103 #### [facility] [address] Erythrocyte distribution width (RBC) [Ratio] 13.1 % Normal 11.5-15.0 [facility] Comment on above: Performed By: #### 5 0103 #### [facility] [address] [place] [address], [facility] Hematocrit (Bld) [Volume fraction] 38.9 % Normal 36.0-45.0 [facility] Comment on above: Performed By: #### 5 0103 #### [facility] [address] [facility] [place] [address], [facility] Hemoglobin (Bld) [Mass/Vol] 12.7 g/dL Normal 12.0-15.0 [facility] Comment on above: Performed By: #### 5 0103 #### [facility] [address] [facility] [place] [address], [facility] IMMATURE GRANS 0.3 % Normal 0.0-1.0 [facility] Comment on above: Performed By: #### 5 0103 #### [facility] [address] Lymphocytes (Bld) [#/Vol] 1.8 10*3/uL Normal 1.2-4.0 [facility] Comment on above: Performed By: #### 5 0103 #### [facility] [address] Lymphocytes/100 WBC (Bld) 12.2 % Low 20.0-45.0 [facility] Comment on above: Performed By: #### 5 0103 #### [facility] [address] MCH (RBC) [Entitic mass] 30.5 pg Normal 27.0-33.0 [facility] Comment on above: Performed By: #### 5 0103 #### [facility] [address] [place] [address], [facility] MCHC (RBC) [Mass/Vol] 32.6 g/dL Normal 32.0-35.0 [facility] Comment on above: Performed By: #### 5 3 #### [facility] [address] [place] [address], [facility] MCV (RBC) [Entitic vol] 93.3 fL Normal 82.0-98.0 [facility] Comment on above: Performed By: #### 5 102 #### [facility] [address] [facility] [place] [address], [facility] Monocytes (Bld) [#/Vol] 1.2 10*3/uL High 0.1-1.0 [facility] Comment on above: Performed By: #### 102 #### [facility] [address] [place] [address], [facility] MONOS 8.4 % Normal 5.0-12.0 [facility] Comment on above: Performed By: #### 102 #### [facility] [address] [place] [address], [facility] Neutrophils/100 WBC (Bld) 78.8 % High 40.0-72.0 [facility] Comment on above: Performed By: #### 102 #### [facility] [address] Nucleated RBC/100 WBC (Bld) [Ratio] 0 % Normal 0-0 [facility] Comment on above: Performed By: #### 102 #### [facility] [address] [place] [address], [facility] PLAT CNT 156 10*3/uL Normal 150-400 [facility] Comment on above: Performed By: #### 5 102 #### [facility] [address] [facility] [place] [address], [facility] RBC (Bld) [#/Vol] 4.17 10*6/uL Normal 3.80-5.00 [facility] Comment on above: Performed By: #### 102 #### [facility] [address] [place] [address], [facility] WBC (Bld) [#/Vol] 14.33 10*3/uL High 4.00-10.60 [facility] Comment on above: Performed By: #### 102 #### [id number] [place] [address] CHEST AND LATERALon 04-06-19 CHEST AND LATERAL [facility] Department of Radiology [address] [place] [phone] Patient Name: MOHAN ESPINOZA : 1935 Sex: F Age: Race: White Pt. Location: [id number] Patient Status: I Ordered Date: 04/06/2018 6:20:00 [...] findings. Electronically signed by:Ronna Villalobos. Transcribed by: [email or web address], User Resident: MURTAZA VILLAGRAN Electronically Signed by: RONNA VILLALOBOS @ 04/07/2018 09:13 AM I personally read this/these film(s) with this resident Normal [facility] Comment on above: Order Comment: No: D o not add to previous draw DIGOXINon 04-06-2018 Digoxin [Mass/Vol] 0.7 ng/mL Normal 0.7-2.0 [facility] Comment on above: Performed By: #### 0 0071, 86510, 90888, 02156, 20241, 42189 #### [facility] [address] [place] [address], [facility] LIVER BATTERYon 04-06-2018 Albumin [Mass/Vol] 3.4 g/dL Low 3.5-5.7 [facility] Comment on above: Order Comment: No: D o not add to previous draw Performed By: #### 0 0071, 49910, 95471, 44778, 09437, 88986 #### [facility] [address] [place] [address], [facility] ALKALINE PHOSPH 50 IU/L Normal 34-104 [facility] Comment on above: Order Comment: No: D o not add to previous draw Performed By: #### 0 0071, 72594, 22686, 37458, 58819, 10538 #### [facility] [address] [place] [address], [place] ALT [Catalytic activity/Vol] 16 U/L Normal 7-52 [facility] Comment on above: Order Comment: No: D o not add to previous draw Performed By: #### 0 0071, 80021, 91647, 94937, 72169, 18424 #### [facility] [address] [place] [address], [place] AST [Catalytic activity/Vol] 17 U/L Normal 13-39 [facility] Comment on above: Order Comment: No: D o not add to previous draw Performed By: #### 0 0071, 19001, 90611, 29584, 00931, 80316 #### [facility] [address] [place] [address], [facility] Bilirubin [Mass/Vol] 0.5 mg/dL Normal 0.3-1.0 [facility] Comment on above: Order Comment: No: D o not add to previous draw Performed By: #### 0 0071, 86505, 65545, 77359, 44627, 74421 #### [facility] [address] [place] [address], [facility] Bilirubin.direct [Mass/Vol] 0.1 mg/dL Normal 0.0-0.2 [facility] Comment on above: Order Comment: No: D o not add to previous draw Performed By: #### 0 0071, 84374, 17875, 79356, 50264, 30916 #### [facility] [address] [place] [address], [facility] Protein [Mass/Vol] 6.2 g/dL Normal 6.0-8.3 [facility] Comment on above: Order Comment: No: D o not add to previous draw Performed By: #### 0 0071, 51745, 09825, 33976, 95634, 09238 #### [facility] [address] [place] [address], [facility] MAGNESIUM BLOODon 04-06-2018 Magnesium [Mass/Vol] 1.3 mg/dL Low 1.9-2.7 [facility] Comment on above: Order Comment: No: D o not add to previous draw Performed By: #### 0 0071, 94513, 96100, 01368, 86373, 31078 #### [facility] [address] [place] [address], [facility] PHOSPHORUS BLOODon 9 Phosphate [Mass/Vol] 2.6 mg/dL Normal 2.5-5.0 [facility] Comment on above: Order Comment: No: D o not add to previous draw Performed By: #### 0 0071, 06148, 24238, 65707, 12843, 35987 #### [facility] [address] [place] [address], [facility] POC GLUCOSE LABon 04-06-2018 Glucose [Mass/Vol] 172 mg/dL High 70-100 [facility] Comment on above: Performed By: #### 8 5499 #### [facility] [address] [place] [address], [facility] PROCALCITONINon 04-06-2018 PROCALCITONIN 2.61 ng/mL Critically high 0.00-0.10 [facility] Comment on above: Order Comment: Yes: [...] By: #### 3 1488 #### [facility] [address] [facility] [place] [address], [facility] SEPSIS LACTATE W/REFLEXon Lactate [Moles/Vol] 1.4 mmol/L Normal 0.5-2.2 [facility] Comment on above: Order Comment: No: D o not add to previous draw Performed By: #### 3 1414 #### [facility] [address] [facility]. [address] TROPONIN-Ion 04-06-2018 Troponin I.cardiac [Mass/Vol] 0.23 ng/mL Critically high 0.00-0.04 [facility] Comment on above: Order Comment: No: [...] AN M.I. Performed By: #### 0 0071, 82482, 07319, 30052, 22379, 05886 #### [facility] [address] [facility] CRPon 11-05-2017 CRP mass conc 4.0 mg/dL High <=1.9 [facility] Comment on above: Performed By: #### 2 [id number] ####[facility] [id number] [place] [address] Vital Signs Date Time Vital Sign Value Performing Clinician Facility 05-25-2024 10:29-0500 Body height 172.7 cm Ирина Brown [employer] Work Phone: [facility] 05-25-2024 10:29-0500 Body mass index (BMI) [Ratio] 41.36 kg/m2 Ирина Brown NP Work Phone: [facility] 05-25-2024 10:29-0500 Body temperature 97.59 [degF] Ирина Santanaholz [employer]ER Work Phone: [facility] 05-25-2024 10:29-0500 Body weight 123.38 kg Иринаchuck Santanaholz [employer]ACHINE TENDER Work Phone: [facility] 05-25-2024 10:29-0500 Diastolic blood pressure 72 mm[Hg] Ирина Dorethahholz [employer]ACHINE TENDER Work Phone: [facility] 05-25-2024 10:29-0500 Heart rate 94 /min Ирина Dorethahholz [employer]ACHINE TENDER Work Phone: [facility] 05-25-2024 10:29-0500 Respiratory rate 22 /min Ирина Maxholz [employer]ACH[employer] TENDER Work Phone: [facility] 05-25-2024 10:29-0500 SaO2% (BldA) [Mass fraction] 98 % Ирина Maxholz [employer]ACH[employer] TENDER Work Phone: [facility] 05-25-2024 10:29-0500 Systolic blood pressure 128 mm[Hg] Ирина Dorethahholz [employer]ACHINE TENDER Work Phone: [facility] 01-25-2024 08:54-0500 Body height 172.7 cm Emilie Meza [employer]ER Work Phone: [facility] 01-25-2024 08:54-0500 Body temperature 97 [degF] Emilie Meza [employer]ACH[employer] TENDER Work Phone: [facility] 01-25-2024 08:54-0500 Diastolic blood pressure 82 mm[Hg] Emilie Meza [employer]ING [employer]INE TENDER Work Phone: [facility] 01-25-2024 08:54-0500 Heart rate 76 /min Emilie Meza [employer]INE T[employer]ER Work Phone: [facility] 01-25-2024 08:54-0500 Respiratory rate 18 /min Emilie Meza [employer] T[employer]ER Work Phone: [facility] 01-25-2024 08:54-0500 SaO2% (BldA) [Mass fraction] 94 % Emilie Meza [employer] MACHINE TENDER Work Phone: [facility] 01-25-2024 08:54-0500 Systolic blood pressure 118 mm[Hg] Emilie Meza [employer] MACHINE TENDER Work Phone: [facility] 01-10-2024 11:08-0400 Body temperature 97 [degF] Emilie Meza [employer]ACHINE TENDER Work Phone: [facility] 01-10-2024 11:08-0400 Diastolic blood pressure 68 mm[Hg] Emilie Meza [employer] MACHINE TENDER Work Phone: [facility] 01-10-2024 11:08-0400 Heart rate 85 /min Emilie Meza [employer] TENDER Work Phone: [facility] 01-10-2024 11:08-0400 SaO2% (BldA) [Mass fraction] 94 % Emilie Meza [employer] MACH[employer] TENDER Work Phone: [facility] 01-10-2024 11:08-0400 Systolic blood pressure 140 mm[Hg] Emilie Meza [employer]DING MACHINE TENDER Work Phone: [facility] 12-28-2023 08:00-0400 Body temperature 98.4 [degF] DO Ren Frings Work Phone: [facility] 12-28-2023 08:00-0400 Diastolic blood pressure 80 mm[Hg] DO Ren Frings Work Phone: [facility] 12-28-2023 08:00-0400 Heart rate 80 /min DO Ren Frings Work Phone: [facility] 12-28-2023 08:00-0400 Respiratory rate 18 /min DO Ren Frings Work Phone: [facility] 12-28-2023 08:00-0400 SaO2% (BldA) [Mass fraction] 96 % DO Ren Frings Work Phone: [facility] 12-28-2023 08:00-0400 Systolic blood pressure 155 mm[Hg] DO Ren Correangs Work Phone: [facility] 12-28-2023 06:00-0400 Body weight 132.9 kg DO Ren Correangs Work Phone: [facility] 12-25-2023 11:58-0400 Body height 172.72 cm DO Ren Correangs Work Phone: [facility] 07-01-2022 09:34-0400 Body height 172.72 cm Shaikh Caronwad Work Phone: [facility] [address] DO Work Phone: 07-01-2022 09:34-0400 Body mass index (BMI) [Ratio] Patient Reason Not Done Shaikh Caronwad Work Phone: [facility] 250 DO Work Phone: 07-01-2022 09:34-0400 Diastolic blood pressure 66 mm[Hg] Shaikh Caronwad Work Phone: [facility] 250 DO Work Phone: 07-01-2022 09:34-0400 Heart rate 68 /min Shaikh Caronwad Work Phone: [facility] 250 DO Work Phone: 07-01-2022 09:34-0400 Systolic blood pressure 106 mm[Hg] Good Birgitwwad Work Phone: [facility] 250 DO Work Phone: 07-01-2022 09:34-0400 16 1 Good Birgitwwad Work Phone: [facility] 250 DO Work Phone: Comment on above: PHQ-9 TS 06-23-2022 11:26-0400 Body temperature 97.4 [degF] MD Shaikh Schultz Work Phone: [facility] 06-23-2022 11:26-0400 Diastolic blood pressure 69 mm[Hg] MD Shaikh Schultz Work Phone: [facility] 06-23-2022 11:26-0400 Heart rate 100 /min MD Shaikh Schultz Work Phone: [facility] 06-23-2022 11:26-0400 Respiratory rate 18 /min MD Shaikh Schultz Work Phone: [facility] 06-23-2022 11:26-0400 SaO2% (BldA) [Mass fraction] 96 % MD Shaikh Schultz Work Phone: [facility] 06-23-2022 11:26-0400 Systolic blood pressure 123 mm[Hg] MD Shaikh Schultz Work Phone: [facility] 06-23-2022 08:03-0400 Inhaled oxygen flow rate 1 L/min MD Shaikh Schultz Work Phone: [facility] 06-23-2022 06:00-0400 Body weight 136.4 kg MD Shaikh Schultz Work Phone: [facility] 06-22-2022 14:39-0400 Body height 172.72 cm MD Shaikh Schultz Work Phone: [facility] 06-22-2022 00:00-0400 45 1 Shaikh Marion Work Phone: [facility] 250 DO Work Phone: Comment on above: [id number] Encounters Encounter Date Encounter Type Care Provider Facility Start: 05-25-2024 End: 05-25-2024 Bamboo flowsheet Ирина Kevin [employer]ACHINE TENDER Work Phone: [facility] Start: 05-25-2024 End: 05-25-2024 Bamboo flowsheet Ирина Dorethaguillermoevans [employer]DING MACHINE TENDER Work Phone: [facility] Start: 05-25-2024 End: 05-25-2024 Office outpatient visit 25 minutes Ирина Brown [employer]ACHINE TENDER Work Phone: [facility] Comment on above: 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) (Primary Dx); 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/HCC); Chronic diastolic (congestive) heart failure (CMS/HCC); Chronic kidney disease, stage 3b (HCC) (CMS/HCC); 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); 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 elsewhere (CMS/HCC); 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); Hairy cell leukemia, in remission (CMS/HCC); Unspecified atrial fibrillation (CMS/HCC); Morbid (severe) obesity due to excess calories (CMS/HCC); Body mass index (BMI) 40.0-44.9, adult (CMS/HCC); Cardiomyopathy, ischemic (CMS/HCC); Coronary artery disease involving [place] coronary artery of [place] heart without angina pectoris (CMS/HCC); Essential hypertension (CMS/HCC); Acquired hypothyroidism (CMS/HCC); Factor V Leiden mutation (CMS/HCC); Statin intolerance; Hyperuricemia without signs of inflammatory arthritis and tophaceous disease Start: 05-25-2024 End: 05-25-2024 ambulatory ИРИНА KEVIN Not Available Start: 04-17-2024 End: 04-17-2024 Clinisync Result Encounter Emilie Meza [employer] MACHINE TENDER Work Phone: [facility] External Department Unsolicited Start: 04-17-2024 End: 04-17-2024 Clinisync Result Encounter Emilie Meza [employer]DING MACHINE TENDER Work Phone: [facility] External Department Unsolicited Start: 04-05-2024 End: 04-05-2024 Refill Emilie Lawsontrick [employer]DING MACHINE TENDER Work Phone: [facility] Comment on above: Type 2 diabetes mary itus without complications (CMS/HCC) Start: 02-28-2024 End: 02-28-2024 Refill Emilie Meza [employer]ODDING MACHINE TENDER Work Phone: [facility] Comment on above: 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; Type 2 diabetes mellitus without complications (CMS/HCC) 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) Hypothyroidism, unsp ecified (CMS/HCC); Unspecified atrial fibrillation (CMS/HCC) Start: 01-25-2024 End: 01-25-2024 Bamboo flowsheet Emilie Albertsk [employer]ODDING MACHINE TENDER Work Phone: [facility] Start: 01-25-2024 End: 01-25-2024 Bamboo flowsheet Emilie Meza [employer]ODDING MACHINE TENDER Work Phone: [facility] Start: 01-25-2024 End: 01-25-2024 Office outpatient visit 15 minutes Emilie Meza [employer] MACHINE TENDER Work Phone: [facility] Comment on above: 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, without long-term current use of insulin (HCC) (CMS/HCC) (Primary Dx); Essential hypertension (CMS/HCC); Acquired hypothyroidism (CMS/HCC); Need for influenza vaccination Start: 01-25-2024 End: 01-25-2024 ambulatory EMILIE MEZA Not Available Start: 01-10-2024 End: 01-10-2024 Transitional care manage srvc 14 day discharge Emilie Meza [employer] MACHINE [employer]ENDER Work Phone: [facility] Comment on above: Longstanding persist ent atrial fibrillation (CMS/HCC) (Primary Dx) Start: 01-10-2024 End: 01-10-2024 ambulatory EMILIE MEZA Not Available Start: 12-28-2023 End: 12-28-2023 Refill Emilie Meza [employer]DING MACHINE TENDER Work Phone: [facility] Comment on above: Unspecified atrial f ibrillation (CMS/HCC) Start: 12-25-2023 End: 12-28-2023 Evaluation and management of inpatient Nelson Orourke Facility:[facility] Start: 10-25-2023 End: 10-25-2023 ambulatory EMILIE WRIGHTPATRICK Not Available Start: 10-19-2023 End: 10-19-2023 ambulatory JOSELUIS CASEY [facility] Ambulatory Start: 04-12-2023 Patient encounter procedure Emilie Meza [employer]DING MACHINE TENDER Work Phone: [facility] Start: 09-30-[address] Joseluis Casey Facility: Start: 09-11-2022 Rx Renewal Shaikh Marion Work Phone: [facility] 250 DO Work Phone: Start: 07-27-2022 ambulatory JOSELUIS CASEY Facilit y:[id number] Start: 07-23-2022 ambulatory JOSELUIS CASEY Facilit y:[id number] Start: 07-01-2022 Office outpatient vi sit 40 minutes Shaikh Marion Work Phone: [facility] 250 DO Work Phone: Start: 07-01-[address] Shaikh Schultz Facil ity: Start: 06-29-2022 End: 06-29-2022 ambulatory MD Shaikh Schultz Work Phone: [facility] Work Phone: Start: 06-29-2022 End: 06-29-2022 Departed Referred MD Shaikh Schultz Work Phone: [facility] Work Phone: Start: 06-23-[address] Joseluis Casey Facility:[id number] Start: 06-22-[address] Joseluis Casey Fac ility:[id number] Start: 06-22-2022 End: 06-23-2022 Evaluation and management of inpatient MD Shaikh Schultz Work Phone: [facility] Work Phone: Start: 06-22-[address] Joseluis Casey Facility:[id number] Start: 06-21-2022 End: 06-22-[address] JAYY BAIRES . Facility:[facility]1 Start: 12-29-2021 End: 12-30-2021 ambulatory GOOD Guillermo FAWPERLA Facility:[facility]1 Start: 09-29-2021 End: 09-30-2021 ambulatory GOOD H FAWPERLA Facility:[facility]1 Start: 06-30-2021 End: 07-01-2021 ambulatory GOOD H FAWPERLA Facility: Start: 04-06-2018 End: 04-10-2018 Evaluation and management of inpatient DAVE MACDONALD Facility:[facility] Start: 11-05-2017 End: 11-06-2017 Patient encounter Darrian Benton Facility[facility] Procedures Date Procedure Procedure Detail Performing Clinician Start: 04-17-2024 ALL CBC WITH AUTO DIFF Emilie Meza [employer]DING MACHINE TENDER Work Phone: Start: 12-26-2023 Duplex scan of lower limb veins DO Ren Mohan Work Phone: Start: 12-26-2023 Plain chest X-ray DO Lou Mohan Work Phone: Start: 12-25-2023 Respiratory Panel (PCR) DO Ren Mohan Work Phone: Start: 02-09-2022 History of coronary artery bypass grafting History of coronary artery bypass graft Emilie Meza [employer]DING MACHINE TENDER Work Phone: Start: 03-22-2019 Total colonoscopy Shaik guillermo Schultz Work Phone: Start: 04-08-2018 DILATION OF 1 COR AR T WITH 3 DRUG-ELUT, PERC APPROACH JANE Darnell MOUKARBEL Start: 04-08-2018 FLUOROSCOPY OF L INT MAMM GRAFT USING OTH CONTRAST JANE V MOUKARBEL Start: 04-08-2018 FLUOROSCOPY OF MULT COR A GRAFT USING OTH CONTRAST JANE BIGGSRBOLI Start: 04-08-2018 FLUOROSCOPY OF MULTI PLE CORONARY ARTERIES USING OTH CONTRAST JANE RANDOLPH [facility] Marion Work Phone: History of coronary artery bypass grafting History of coronary artery bypass graft Good Marion Work Phone: History of placement of stent for coronary artery disease History of heart artery stent MD Shaikh Schultz Work Phone: Insertion of inferio r vena caval filter Shaikh Marion Work Phone: Plan of Treatment Date Care Activity Detail Author Start: 10-03-2025 Glaucoma screening Diabetes: R etinopathy Screening [facility] Start: 04-17-2025 Urine screening for protein Diabetes: Urine Protein Screening [facility] Start: 08-29-2024 End: 08-29-2024 Patient encounter procedure 08/29/2024 10:30 AM EDT Office Visit [facility] [address] [place] [address] Ирина Brown NP [address] [place] [id number] [facility] Start: 07-16-2024 Hemoglobin A1c measurement Diabetes: Hemoglobin A1C [facility] Start: 05-25-2024 End: 05-25-2024 Patient encounter procedure 05/25/2024 10:30 AM EST Office Visit [facility] [address] [place] [address] Ирина Brown NP [address] [place] [id number] Cardiomyopathy, ischemic (CMS/HCC) (Primary Dx); 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/HCC); Chronic diastolic (congestive) heart failure (CMS/HCC); 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/HCC); Chronic kidney disease, stage 3b (HCC) (CMS/HCC); 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); 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 elsewhere (CMS/HCC); 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); Hairy cell leukemia, in remission (CMS/HCC); Unspecified atrial fibrillation (CMS/HCC); Morbid (severe) obesity due to excess calories (CMS/HCC); Body mass index (BMI) 40.0-44.9, adult (CMS/HCC); Coronary artery disease involving [place] coronary artery of [place]scar[place] heart without angina pectoris (CMS/HCC); Essential hypertension (CMS/HCC); Acquired hypothyroidism (CMS/HCC); Factor V Leiden mutation (CMS/HCC); Statin intolerance [facility] Comment on above: Cardiomyopathy, isch emic (CMS/HCC) (Primary Dx); 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/HCC); Chronic diastolic (congestive) heart failure (CMS/HCC); 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/HCC); Chronic kidney disease, stage 3b (HCC) (CMS/HCC); 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); 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 elsewhere (CMS/HCC); 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); Hairy cell leukemia, in remission (CMS/HCC); Unspecified atrial fibrillation (CMS/HCC); Morbid (severe) obesity due to excess calories (CMS/HCC); Body mass index (BMI) 40.0-44.9, adult (CMS/HCC); Coronary artery disease involving [place] coronary artery of [place]scar[place] heart without angina pectoris (CMS/HCC); Essential hypertension (CMS/HCC); Acquired hypothyroidism (CMS/HCC); Factor V Leiden mutation (CMS/HCC); Statin intolerance Start: 05-01-2024 End: 05-01-2024 Patient encounter procedure 05/01/2024 9:00 AM EST Office Visit [facility] [address] [place] [address] Emilie Meza NP [address] [place] [address] [facility] Start: 04-12-2024 Medicare Annual Well ness (AWV) Medicare Annual Wellness (AWV) [facility] Start: 04-12-2024 Pneumococcal Vaccine : 65+ Years (2 of 2 - PCV) Pneumococcal Vaccine: 65+ Years (2 of 2 - PCV) [facility] Comment on above: Postponed from 03/22 (Patient Refused) Start: 02-14-2024 Influenza vaccination Influenza Vacc ine (#1) [facility] Comment on above: Postponed from 11/20 (Patient Ill Today) Start: 01-25-2024 End: 01-24-2025 CBC W Auto Differential panel - Blood CBC and differential Lab Routine Type 2 diabetes mellitus with stage 3a chronic kidney disease, without long-term current use of insulin (HCC) (CMS/HCC) Essential hypertension (CMS/HCC) Expected: 01/25/2024 (Approximate), Expires: 01/24/2025 [facility] Comment on above: Expected: 01/25/2024 (Approximate), Expires: 01/24/2025 Start: 01-25-2024 End: 01-24-2025 Comprehensive metabolic 2000 panel - Serum or Plasma Comprehensive metabolic panel Lab Routine Type 2 diabetes mellitus with stage 3a chronic kidney disease, without long-term current use of insulin (HCC) (CMS/HCC) Essential hypertension (CMS/HCC) Expected: 01/25/2024 (Approximate), Expires: 01/24/2025 [facility] Comment on above: Expected: 01/25/2024 (Approximate), Expires: 01/24/2025 Start: 01-25-2024 End: 01-24-2025 Hemoglobin A1c/Hemoglobin.total in Blood Hemoglobin A1c Lab Routine Type 2 diabetes mellitus with stage 3a chronic kidney disease, without long-term current use of insulin (HCC) (CMS/HCC) Essential hypertension (CMS/HCC) Expected: 01/25/2024 (Approximate), Expires: 01/24/2025 [facility] Comment on above: Expected: 01/25/2024 (Approximate), Expires: 01/24/2025 Start: 01-25-2024 End: 01-24-2025 TSH W/REFLEX TO FT4 TSH W/REFLEX TO FT4 Lab Routine Acquired hypothyroidism (CMS/HCC) Expected: 01/25/2024 (Approximate), Expires: 01/24/2025 [facility] Comment on above: Expected: 01/25/2024 (Approximate), Expires: 01/24/2025 Start: 01-25-2024 End: 01-25-2024 Patient encounter procedure [facility] Comment on above: Arrived Start: 01-10-2024 End: 01-10-2024 Patient encounter procedure 01/10/2024 11:00 AM EDT Office Visit [facility] [address] [place] [address] Emilie Meza NP [address] [place] [address] [facility] Start: 12-28-2023 [facility] Start: 12-25-2023 Blood culture for bacteria, including anaerobic screen Blood Culture [facility] Start: 12-25-2023 Hospital admission [facility] Start: 11-21-2023 Influenza vaccination Influenza Vacc ine (#1) [facility] Start: 04-20-2023 Hemoglobin A1c measurement Diabetes: Hemoglobin A1C [facility] Start: 09-30-2022 FUV, Provider: Joseluis Casey, Status: Pen, Time: 9:20 AM FUV, Provider: Joseluis Casey, Status: Pen, [facility]: [facility] Start: 07-27-2022 REST ONLY, Provider: AQUILINO HHVI NUCLEAR 01,[id number], Status: Pen, Time: 1:00 PM REST ONLY, Provider: AQUILINO HHVI NUCLEAR 01,[id number], Status: Pen, Time: 1:00 PM [facility] Work [facility]: Start: 07-23-2022 STRESSNUC2, Provider : AQUILINO HHVI NUCLEAR 01,[id number], Status: Pen, Time: 1:00 PM STRESSNUC2, Provider: AQUILINO HHVI NUCLEAR 01,[id number], Status: Pen, Time: 1:00 PM [facility] 250 DO Work Phone: Start: 06-23-2022 [facility] Start: 06-22-2022 Hospital admission [facility] Start: 03-22-2003 Pneumococcal Vaccine : 65+ Years (2 of 2 - PCV) Pneumococcal Vaccine: 65+ Years (2 of 2 - PCV) [facility] Start: 1956 Urine screening for protein Diabetes: Urine Protein Screening [facility] Blood chemistry [facility] Microalbumin/Creatin ine panel in random Urine Microalbumin / creatinine urine ratio Lab Routine Type 2 diabetes mellitus with stage 3a chronic kidney disease, without long-term current use of insulin (HCC) ([facility]/HCC) Essential hypertension ([facility]/HCC) Ordered: 01/25/2024 [facility] Work Phone: Comment on above: Ordered: 01/25/2024 Patient Education [facility] Work Phone: Patient referral [facility] Work Phone: [facility] Immunizations Immunization Date Immunization Notes Care Provider Birgit peñaloza 01-25-2024 Influenza, injectabl e, Madin Ackerman Canine Kidney, preservative free, quadrivalent Emilie Willsonzpatrick [employer] Work Phone: [facility] 01-21-2021 Moderna COVID-19 Vaccine 100 MCG/0.5ML Intramuscular Suspension Shaikh Marion Work Phone: [facility] 250 DO Work Phone: 12-31-2020 Seasonal trivalent influenza vaccine, adjuvanted, preservative free Shaikh Marion Work Phone: [facility] 250 DO Work Phone: 12-31-2020 influenza virus vaccine, unspecified formulation Emilie Meza [employer] Work Phone: [facility] 05-21-2020 Moderna COVID-19 Vaccine 100 MCG/0.5ML Intramuscular Suspension Good [facility]awwad [facility] Work Phone: 04-23-2020 Moderna COVID-19 Vaccine 100 MCG/0.5ML Intramuscular Suspension Good [place]awwad Work Phone: [facility] 250 DO Work Phone: 12-28-2019 Seasonal trivalent influenza vaccine, adjuvanted, preservative free [employer] [place] Work Phone: [facility] 250 DO Work Phone: 01-18-2019 Seasonal trivalent influenza vaccine, adjuvanted, preservative free [place] Work Phone: [place] [address] DO Work Phone: 02-01-2018 Seasonal trivalent influenza vaccine, adjuvanted, preservative free Good [place] Work Phone: [facility] Friends[facility]AT DO Work Phone: 01-07-2017 Seasonal trivalent influenza vaccine, adjuvanted, preservative free [employer] [place] Work Phone: [place] [address] DO Work Phone: 02-26-2014 influenza, injectabl e, quadrivalent, contains preservative [employer] [place] Work Phone: [facility] 250 DO Work Phone: 12-26-2012 influenza, seasonal, injectable [employer] [place] Work Phone: [facility] 250 DO Work Phone: 03-22-2002 pneumococcal polysaccharide vaccine, 23 valent [employer] [place] Work Phone: [facility] 250 DO Work Phone: Comment on above: Series: Payers Date Payer Category Payer Self-pay [id number] 2022 Private Health Insurance [id number] 2002 Medicare [id number] 1959 Medicare [id number] 1959 Unknown [id number] 1937 Unknown [id number] 2.16.8 [id number] 1937 Unknown [id number] 2.16.84 [id number] 1937 Unknown [id number] 2.16.84 [id number] 1937 Unknown [id number] 2.16.84 [id number] 1937 Unknown [id number] 2.16.84 [id number] 1937 Unknown [id number] 2.16.8 [id number] 1937 Unknown [id number] 2.16.8 [id number] 1937 Unknown [id number] 2.16. [id number] 1937 Unknown [id number] 2.16. [id number] 1937 Unknown [id number] 2.16. [id number] 1937 Unknown [id number] 2.16. [id number] 1937 Unknown [id number] 2.16. [id number] 1937 Unknown [id number] 2.16.8 [id number] 1937 Unknown [id number] 2.16.84 [id number] 1937 Unknown [id number] 2.16.84 [id number] 1937 Unknown [id number] 2.16.84 [id number] 1937 Unknown [id number] 2.16.84 [id number] Medicare [id number] Unknown Unknown [id number] 2.16.8 [id number] Social History Date Type Detail Facility Start: 06-22-2022 End: 12-25-2023 Tobacco smoking status TNIS Ex-smoker (finding) [facility] Start: 1935 Sex Assigned At Female F [facility] Start: 10-25-2023 End: 05-25-2024 Caffeine use Caffeine use [place] [address] DO Work Phone: Comment on above: 2.5 cups coffee in m orning; Start: 10-25-2023 Tobacco smoking status TNIS Never smoked tobacco [facility] Start: 10-25-2023 Tobacco use and exposure Smokeless tobacco non-user [facility] Start: 10-25-2023 End: 05-25-2024 Alcoholic beverage intake Lifetime non-drinker (finding) [facility] Start: 10-25-2023 End: 05-25-2024 Tobacco use panel [facility] Start: 1935 Sex assigned at Not on file [facility] NEGATED: Highlighted rowStart: NINF History of tobacco use Passive smoker [facility] Goals Date Patient Goal Desired Activity /State Functional Status Date Assessment Result Facility 12-28-2023 Functional status [facility] at [facility] Work Phone: 06-23-2022 Functional status Patient at [facility] Work Phone: Mental Status Date Assessment Result Facility 12-28-2023 Cognitive function Cognitive Sta tus Patient at [facility] Work Phone: 06-23-2022 Cognitive function Cognitive Sta tus Patient at [facility] Work Phone: Clinical Notes 06-22-2022 to 05-25-2024 LIZETTE SILVERMAN - 05/25/2024 10:30 AM ESTLisa Aichevans, YOAN - 05/25/2024 10:30 AM ESTLisa Aichholz, [employer]ER - 05/25/2024 6:52 AM ESTLisa Aichholz, YOAN - 05/25/2024 6:51 AM ESTPatient Instructions Note Date & Type Note Facility 05-25-2024 History of Presen t illness Narrative 102 fasting glucose this morning Pt had labs done 04/17 was told that her labs were good however she did not get urine results back Images from the original note were not included. Mohan Espinoza is a 88 y.o. female presents with chief complaint of Diabetes HPI: Afib/CAD/CHF: follows with dr casey, no acute sxs, stable on meds Diabetes She presents for her follow-up diabetic visit. She has type 2 diabetes mellitus. Her disease course has been stable. There are no hypoglycemic associated symptoms. Pertinent negatives for hypoglycemia include no dizziness, headaches, nervousness/anxiousness, seizures or tremors. Associated symptoms include fatigue and foot paresthesias. Pertinent negatives for diabetes include no blurred vision, no chest pain, no polydipsia, no polyphagia and no polyuria. There are no hypoglycemic complications. Symptoms are stable. Diabetic complications include heart disease, nephropathy and peripheral neuropathy. Risk factors for coronary artery disease include diabetes mellitus, dyslipidemia, hypertension, obesity and sedentary lifestyle. Current diabetic treatment includes oral agent (monotherapy). She is compliant with treatment all of the time. An YUSEF inhibitor/angiotensin II receptor jazmine is not being taken. Eye exam is current. Hypertension This is a chronic problem. The current episode started more than 1 year ago. The problem is unchanged. The problem is controlled. Associated symptoms include malaise/fatigue. Pertinent negatives include no blurred vision, chest pain, headaches, palpitations, peripheral edema or shortness of breath. Risk factors for coronary artery disease include diabetes mellitus, dyslipidemia, obesity and sedentary lifestyle. Past treatments include beta blockers. The current treatment provides significant improvement. There are no compliance problems. Hypertensive end-organ damage includes kidney disease, CAD/[place] and heart failure. Identifiable causes of hypertension include chronic renal disease and a thyroid problem. Thyroid Problem Presents for follow-up visit. Symptoms include diarrhea (intermittent) and fatigue. Patient reports no anxiety, cold intolerance, constipation, depressed mood, hoarse voice, leg swelling, palpitations or tremors. The symptoms have been stable. Her past medical history is significant for heart failure. SUBJECTIVE: MEDICATIONS: Current Outpatient Medications Medication Instructions allopurinol (ZYLOPRIM) 300 mg, Oral, Daily furosemide (LASIX) 40 mg, Oral, Daily glipiZIDE (GLUCOTROL) 10 mg, Oral, 2 times daily levothyroxine (SYNTHROID, LEVOXYL) 200 mcg, Oral, Daily metFORMIN (GLUCOPHAGE) 500 mg, Oral, 2 times daily metoprolol succinate XL (Toprol-XL) 100 MG 24 hr tablet 1 tablet, Daily metoprolol succinate XL (Toprol-XL) 50 MG 24 hr tablet TAKE 3 TABLETS BY MOUTH ONCE DAILY DO NOT CRUSH OR CHEW rivaroxaban (XARELTO) 15 mg, Oral, Daily spironolactone (Aldactone) 25 MG tablet Oral ALLERGIES: Allergies Allergen Reactions Albuterol Other Reaction(s): Other (See Comments), Unknown pt states hurt my lungs Yusef Inhibitors Other hypotension Atorvastatin Diarrhea Clarithromycin Other Reaction(s): Unknown Ezetimibe Other Reaction(s): Unknown Headaches Other Other hypotension REVIEW OF SYMPTOMS: Review of Systems Constitutional: Positive for fatigue and malaise/fatigue. Negative for appetite change, chills and fever. HENT: Negative for congestion, ear pain, hoarse voice and sore throat. Eyes: Negative for blurred vision, pain, discharge, redness and visual disturbance. Respiratory: Negative for cough, shortness of breath and wheezing. Cardiovascular: Negative for chest pain, palpitations and leg swelling. Gastrointestinal: Positive for diarrhea (intermittent). Negative for abdominal pain, blood in stool, constipation, nausea and vomiting. Genitourinary: Negative for difficulty urinating, dysuria and frequency. Musculoskeletal: Positive for arthralgias. Negative for back pain, joint swelling and myalgias. Skin: Negative for rash and wound. Neurological: Negative for dizziness, tremors, seizures, syncope and headaches. Psychiatric/Behavioral: Negative for behavioral problems, self-injury and suicidal ideas. The patient is not nervous/anxious. Hematological: Does not bruise/bleed easily. Endocrine: Negative for cold intolerance, polydipsia, polyphagia and polyuria. Allergic/Immunologic: Negative for environmental allergies and food allergies. PAST MEDICAL HISTORY Past Medical History: Diagnosis Date Allergic rhinitis, mild At moderate risk for fall Atrial fibrillation ([facility]) CAD (coronary atherosclerotic disease) ([facility]) CHF (congestive heart failure) ([facility]) Chronic diastolic heart failure ([facility]) 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) ([facility]) CLL (chronic lymphocytic leukemia) ([facility]) Edema, unspecified type Factor 5 Leiden mutation, heterozygous ([facility]) Fatigue Gout History of DVT (deep vein thrombosis) History of non-Hodgkin's lymphoma HLD (hyperlipidemia) ([facility]) HTN (hypertension) ([facility] Hypercholesteremia ([facility]) Hyperuricemia Hypothyroid ([facility]) Iron deficiency anemia Left ankle swelling Peripheral neuropathy S/P CABG (coronary artery bypass graft) Type 2 diabetes mellitus ([facility]) Past Surgical History: Procedure Laterality Date APPENDECTOMY CARDIAC SURGERY Stents CORONARY ARTERY BYPASS GRAFT x4 OTHER SURGICAL HISTORY [place] family history includes Diabetes in an other family member; Heart disease in her mother; Hypertension in an other family member; Stroke in an other family member. OBJECTIVE: Visit Vitals BP 128/72 Pulse 94 Temp 97.6 F (Temporal) Resp 22 Ht 5' 8 Wt 272 lb SpO2 98% BMI 41.36 kg/m OB Status Postmenopausal Smoking Status Never BSA 2.43 m Physical Exam Vitals and nursing note reviewed. Constitutional: General: She is not in acute distress. Appearance: Normal appearance. HENT: Head: Normocephalic and atraumatic. Right Ear: Tympanic membrane, ear canal and external ear normal. Left Ear: Tympanic membrane, ear canal and external ear normal. Nose: Nose normal. No congestion or rhinorrhea. Mouth/Throat: Mouth: Mucous membranes are moist. Pharynx: No oropharyngeal exudate or posterior oropharyngeal erythema. Eyes: Extraocular Movements: Extraocular movements intact. Conjunctiva/sclera: Conjunctivae normal. Neck: Vascular: No carotid bruit. Cardiovascular: Rate and Rhythm: Normal rate. Rhythm irregular. Pulses: Normal pulses. Heart sounds: Normal heart sounds. No murmur heard. Pulmonary: Effort: Pulmonary effort is normal. No respiratory distress. Breath sounds: Normal breath sounds. No wheezing or rhonchi. Abdominal: General: Bowel sounds are normal. There is no distension. Palpations: Abdomen is soft. There is no mass. Tenderness: There is no abdominal tenderness. Musculoskeletal: General: Normal range of motion. Cervical back: Normal range of motion and neck supple. Right lower leg: No edema. Left lower leg: No edema. Lymphadenopathy: Cervical: No cervical adenopathy. Skin: General: Skin is warm and dry. Capillary Refill: Capillary refill takes 2 to 3 seconds. Findings: No rash. Neurological: General: No focal deficit present. Mental Status: She is alert and oriented to person, place, and time. Psychiatric: Mood and Affect: Mood normal. Behavior: Behavior normal. Thought Content: Thought content normal. Judgment: Judgment normal. ASSESSMENT AND PLAN: No follow-ups on file. Problem List Items Addressed This Visit Acquired hypothyroidism (CMS/HCC) Current med: levothyroxine Check labs yearly, and prn dose changes or changes in symptoms Unspecified atrial fibrillation (CMS/HCC) B jazmine and xarelto Hairy cell leukemia, in remission (CMS/HCC) Essential hypertension (CMS/HCC) Please check blood pressure daily and record DASH diet Limit caffeine Take medication as directed Contact office if chest pain, pressure, dizziness, shortness of breath, swelling legs Recommend slow position changes Current meds; diuretic, and b jazmine Morbid (severe) obesity due to excess calories (CMS/HCC) Discussed with patient their BMI (actual, verses recommended). We have also discussed lifestyle modifications: attempts to perform physical activity as chronic conditions allow, also to monitor dietary intake: increasing protein/fruits/veggies and lowering carb intake (unless contraindicated). Limit sodas, juices, and sugary drinks. Coronary artery disease involving [place] coronary artery of [place] heart without angina pectoris ([facility]) Unable to tolerate statin Does take b jazmine Factor V Leiden mutation ([facility]) On xarelto Type 2 diabetes mellitus with diabetic chronic kidney disease ([facility]) Check blood sugars daily, notify if <70 [...] diet low in carbohydrates, and simple sugars. Current med: metformin, glipizide, intolerant to statins and yusef/arb, and no asa d/t Xarelto A1c 7% on 04/17/24 Type 2 diabetes mellitus with diabetic cataract ([facility]) Chronic diastolic (congestive) heart failure ([facility]) On b jazmine, and diuretic Chronic kidney disease, stage 3b (HCC) ([facility]) Control blood pressure and blood sugars Check labs yearly and prn Type 2 diabetes mellitus with diabetic polyneuropathy ([facility]) No current meds for this Recommend freq foot checks, proper fitting shoes Adequate blood sugar control 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 elsewhere ([facility]) Body mass index (BMI) 40.0-44.9, adult ([facility]) Cardiomyopathy, ischemic ([facility]) - Primary Noted from cardiology Current meds: b jazmine, aldactone, diuretics Statin intolerance Other Visit Diagnoses Chronic lymphocytic leukemia of B-cell type not having achieved remission ([facility]) Hyperuricemia without signs of inflammatory arthritis and tophaceous disease Associated Problem(s): Factor V Leiden mutation ([facility]) On xarelto Associated Problem(s): 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/HCC) Check blood sugars daily, notify if <70 [...] diet low in carbohydrates, and simple sugars. Current med: metformin, glipizide, intolerant to statins and yusef/arb, and no asa d/t Xarelto A1c 7% on 04/17/24 Associated Problem(s): Morbid (severe) obesity due to excess calories (CMS/HCC) Discussed with patient their BMI (actual, verses recommended). We have also discussed lifestyle modifications: attempts to perform physical activity as chronic conditions allow, also to monitor dietary intake: increasing protein/fruits/veggies and lowering carb intake (unless contraindicated). Limit sodas, juices, and sugary drinks. Associated Problem(s): Acquired hypothyroidism (CMS/HCC) Current med: levothyroxine Check labs yearly, and prn dose changes or changes in symptoms Associated Problem(s): Chronic kidney disease, stage 3b (HCC) (CMS/HCC) Control blood pressure and blood sugars Check labs yearly and prn Associated Problem(s): Unspecified atrial fibrillation (CMS/HCC) B jazmine and xarelto A fib today , rate controlled Associated Problem(s): Essential hypertension (CMS/HCC) Please check blood pressure daily and record DASH diet Limit caffeine Take medication as directed Contact office if chest pain, pressure, dizziness, shortness of breath, swelling legs Recommend slow position changes Current meds; diuretic, and b jazmine Associated Problem(s): Coronary artery disease involving [place] coronary artery of [place] heart without angina pectoris (CMS/HCC) Unable to tolerate statin Does take b jazmine Associated Problem(s): Chronic diastolic (congestive) heart failure (CMS/HCC) On b jazmine, and diuretic Associated Problem(s): Cardiomyopathy, ischemic (CMS/HCC) Noted from cardiology Current meds: b jazmine, aldactone, diuretics Associated Problem(s): 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) No current meds for this Recommend freq foot checks, proper fitting shoes Adequate blood sugar control documented in this encounter [facility] 05-25-2024 Instructions Ирина Brown NP - 05/25/2024 10:30 AM EST No changes in meds In 3 months medicare wellness documented in this encounter [facility] 01-25-2024 History of Presen t illness Narrative Associated Problem(s): Essential hypertension (CMS/HCC) Currently taking Metoprolol Succincate [...] long-term current use of insulin (HCC) (CMS/HCC) - Primary Most recent labs: hemoglobin A1C [...] for influenza vaccination documented in this encounter [facility] 01-25-2024 Instructions Emilie Meza NP - 01/25/2024 9:00 AM EST FASTING labs ordered. Nothing to eat or drink for 12 hours prior to blood draw. Water and black coffee ok. Call if you need anything! documented in this encounter [facility] 01-10-2024 History of Presen t illness Narrative Associated Problem(s): Atrial fibrillation (CMS/HCC) Currently taking Eliquis. Was admitted to [facility] for NSTEMI 12/24 Echo ordered EF was 60%-65% [facility] discharged, believed troponin elevations were related to [...] presents for Hospital Follow-up. HPI Specialists: Dr. Casey- Cardiology Hospital Follow-Up: Was admitted to [facility] for NSTEMI 12/24-12/27 Echo ordered EF was 60%-65% [facility] discharged, believed troponin elevations were related to [...] Primary Currently taking Eliquis. Was admitted to [facility] for NSTEMI 12/24 Echo ordered EF was 60%-65% [facility] discharged, believed troponin elevations were related to brief episode of Afib RVR No medication changes States she feels better presently, but is still fatigued. Follows with Dr. Casey- Cardiology; Has not made an appointment to follow up with Cards yet. Advised pt to do so. documented in this encounter [facility] 01-10-2024 Instructions Emilie Meza NP - 01/10/2024 11:00 AM EDT Follow up with Cardiology- Call office to schedule appointment Joseluis Vuong DO [address] [place], [place] [id number] documented in this encounter [facility] 12-28-2023 Progress note Note Date/Time December 27, 2023 10:24pm [facility] [address] [place] [address] Hospitalist Progress Note Signed Patient: Mohan Espinoza MR#: [id number] : 1935 Acct:[id number] Age/Sex: 88 / F Adm Date: 4 Loc: Room: [address] [place] [address] Type: ADM IN Attending Dr: Nelson Orourke [...] 1.9 Insulin Aspart 0 units 12/25/23 22:00 12/27/23 21:05 Insulin Aspart 300 Units/3 [...] A&P - Hospitalist Assessment/Plan (1) Type 2 [place] (myocardial infarction): Plan Documented By: Nelson Orourke DO 12/27/232221 Signed By: <Electronically signed by Nelson Orourke, DO> 12/27/232223 [facility] Work Phone: 1(653) 308-313010-06-2024 Progress note Author Apryl Shirley [facility] December 26, 2023 5:24pm Note Date/Time December 26, 2023 3: 47pm [facility] [address] [place] [address] Hospitalist Progress Note Signed Patient: Mohan Espinoza MR#: [id number] : 1935 Acct:[id number] Age/Sex: 88 / F Adm Date: 4 Loc: Room: [address] [place] [address] Type: ADM IN Attending Dr: Apryl Shirley MD Copies to: ~ Date of Service: 12/26/2023 Subjective Subjective Narrative: Assessment And Plan 88-year-old female with previously known history of atrial fibrillation, hypertension, CKD , diabetes and hyperlipidemia, Hypothyroidism She presented to [facility] () ER earlier this evening with initially reported shortness of breath type 2 myocardial infarction Rule out NSTEMI She denies any chest pain or worsening SOB during her stay HS-Troponin 50 ()> 200 () > 280 ([facility]) > 73 (today) LDL 115 EKG () [...] A&P - Hospitalist Assessment/Plan (1) Type 2 [place] (myocardial infarction): Plan Documented By: Apryl Shirley MD 12/26/23 1540 Signed By: <Electronically signed by Apryl Shirley MD> 12/26/23 1722 [facility] Work Phone: 1([phone]) 323-533210-06-2024 Progress note Author Apryl Shirley [facility] December 25, 2023 11:11pm Note Date/Time December 25, 2023 6: 36pm [facility] [address] [place] [address] Hospitalist Progress Note Signed Patient: Mohan Espinoza MR#: [id number] : 1935 Acct:[id number] Age/Sex: 88 / F Adm Date: 4 Loc: Room: [address] [place] [address] Type: ADM IN Attending Dr: Apryl Shirley MD Copies to: ~ Date of Service: 12/25/2023 Subjective Subjective Narrative: Assessment And Plan 88-year-old female with previously known history of atrial fibrillation, hypertension, CKD , diabetes and hyperlipidemia, Hypothyroidism She presented to [facility] () ER earlier this evening with initially reported shortness of breath type 2 myocardial infarction Rule out NSTEMI She denies any chest pain or worsening SOB HS-Troponin 50 ()> 200 () > 280 ([facility]) LDL 115 EKG () shows afib RVR [...] , D-dimer (BH) noted to be elevated Will check for [...] 40 Mg Tablet PO 12/24/24 20:59 QPM [facility] Dextrose 0 gm 12/25/23 18:11 Dextrose 50% In Water 25 Gm/50 Ml Syringe IV-PUSH 12/24/24 18:10 PRN PRN Hypoglycemia Furosemide 40 mg 12/26/23 09:00 Furosemide 40 Mg Tablet PO 12/25/24 08:59 DAILY [facility] Glucose 0 gm 12/25/23 18:11 Dextrose 40% [...] 300 Units/3 Ml Insuln.Pen SUBCUT 12/24/24 21:59 TID.WM.[facility] Protocol Insulin Glargine 15 units 12/25/23 22:00 Insulin Glargine 300 Units/3 Ml Insuln.Pen SUBCUT 12/24/24 21:59 QHS [facility] Levothyroxine Sodium 200 mcg 12/25/23 06:30 12/25/23 06:34 Levothyroxine 200 Mcg Tablet PO 12/24/24 06:29 200 mcg DAILY@0630 [facility] Administration Metoprolol Succinate 150 mg 12/25/23 06:00 12/25/23 06:34 Metoprolol Succinate 50 Mg Tab.Er.24h PO 12/24/24 05:59 150 mg DAILY [facility] Administration Rivaroxaban 15 mg 12/25/23 17:00 12/25/23 17:21 Rivaroxaban 15 Mg Tablet PO 12/24/24 16:59 15 mg DAILY@17 [facility] Administration A&P - Hospitalist Assessment/Plan (1) Type 2 [place] (myocardial infarction): Plan Documented By: Apryl Shirley MD 12/25/231811 Signed By: <Electronically signed by Apryl Shirley MD> 12/25/23 7338 [facility] Work Phone: 1(432) 564-573610-05-2024 History and physical note Author Ren Mohan [facility] December 25, 2023 5:41am Note Date/Time December 25, 2023 3: 54am [facility] [address] [place] [address] Hospitalist H&P Signed Patient: Mohan Espinoza MR#: [id number] : 1935 Acct:[id number] Age/Sex: 88 / F Adm Date: 4 Loc: 3T Room: [address] [place] [address] Type: ADM IN Attending Dr: Ren Mohan DO Copies to: Ren Mohan DO NO FAMILY PHYSICIAN~ HPI DATE OF EXAMINATION: 12/25/23 CHIEF COMPLAINT: Shortness of breath HISTORY OF PRESENT ILLNESS: This patient is an 88-year-old female with previously known history of atrial fibrillation, hypertension, type 2 diabetes and hyperlipidemia. She has been evaluated here at [facility] necessitating cardiology consultation for troponin elevation in [...] in the evening with ER physician at [place] and with rising troponins ACS cannot be [...] with history of pulmonary embolism status post [place] filter 10. Hypothyroidism 11. Coronary artery disease [...] glipizide. Continue on 150 mg metoprolol ER. [facility] Medical History (Updated 12/25/23 @ 05:41 by Ren Mohan DO) Non-Hodgkin lymphoma in remission Patient recieved chemo therapy Problem List clean-up per request of Phys. EHR [facility] [place] filter in place Problem List clean-up per [...] clean-up per request of Phys. EHR Cmte Pulmonary embolism Problem List clean-up per request of Phys. EHR [facility] Diabetes Problem List clean-up per request of Phys. EHR Cmte Myocardial infarct Problem List clean-up per request of Phys. EHR [facility] Surgical History (Updated 03/03/23 @ 14:47 [facility] History of appendectomy Problem List clean-up per request of Phys. EHR [facility] History of open heart surgery x4 Problem List clean-up per request of Phys. EHR [facility] History of heart artery stent March 2018- 3 stents placed at [facility] Problem List clean-up per request of Phys. EHR [facility] Family History Father Diabetes Mother Stroke Other [...] 3 Documented By: Ren Mohan DO 12/25/23 03 43 Signed By: <Electronically signed by Ren Mohan DO> 12/25/23 0541 [facility] Work Phone: 1([phone]) [phone] Progress note Author Brissa Hoffman [facility] June 23, 2022 5:18pm Note Date/Time June 23, 2022 12:1 1pm [facility] [address] [place] [address] Hospitalist Progress Note Signed Patient: Mohan Espinoza MR#: [id number] : 1935 Acct:[id number] Age/Sex: 86 / F Adm Date: 3 Loc: Room: [address] [place] [address] Type: ADM IN Attending Dr: Brissa Hoffman [...] Insulin Aspart 300 Units/3 Ml Insuln.Pen SUBCUT 04/02/24 07:59 1 units TID.WM.HS [facility] Administration Protocol [...] 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 DVT/PE: [place] filter in place Gout: Continue home meds DVT prophylaxis: Home Xarelto, SCD CODE STATUS: Full code Documented By: Brissa Hoffman MD 06/23/22 1210 Signed By: <Electronically signed by Brissa Hoffman MD> 06/23/22 1718 [facility] Work Phone: [phone]) 243-574604-04-2023 Hospital Discharge instructionsAmbulatory Orders* Initiate Home Health Time Frame: 06/23/22, Location: Determined By Patient Additional Instructions Please call and schedule an appointment with your established Oxyacetylene Torch Operator. HOME HEALTH TO MANAGE: Nursing/PT to eval and treat Monitor VS per protocol Monitor Cardiovascular assessment--Elevated troponin, CAD, HTN Please draw a BMP in 5 days, Send to Dr. Schultz Assist with medication management and provide medication education Assist with glucose control Provide education on high risk fall precautions [facility] Work Phone: 1([phone]) 214-188104-04-2023 Progress note Author W Jacinto [facility] June 23, 2022 9:56am Note Date/Time June 23, 2022 9:56 am [facility] [address] [place] [address] Cardiology Progress Note Signed Patient: Mohan Espinoza MR#: [id number] : 1935 Acct:[id number] Age/Sex: 86 / F Adm Date: 3 Loc: Room: [address] [place] [address] Type: ADM IN Attending Dr: Brissa Hoffman [...] above, to follow-up with Dr. Randolph in [place], for further evaluation and management Exam Physical [...] Acute (8) Chronic anticoagulation: Code(s): Z79.01 - terminal carman (current) use of anticoagulants Status: Acute (9) Factor V Leiden: Code(s): D68.51 - Activated protein C resistance Status: Acute Documented By: Sharron Casey DO 06/23/22 0952 Signed By: <Electronically signed by Sharron Casey DO> 06/23/22 9513 [facility] Work Phone: [phone] Progress note Author Brissa Hoffman [facility] June 22, 2022 2:14pm Note Date/Time June 22, 2022 2:12 pm [facility] [address] [place] [address] Hospitalist Progress Note Signed Patient: Mohan Espinoza MR#: [id number] : 1935 Acct:[id number] Age/Sex: 86 / F Adm Date: 3 Loc: Room: [address] [place] [address] Type: ADM IN Attending Dr: Brissa Hoffman [...] Tablet PO 06/22/23 07:59 Not Given DAILY@0800 [facility] Glucose 0 gm 06/22/22 05:06 Dextrose 40% Gel 15 Gm Tube PO 06/22/23 05:05 PRN PRN Hypoglycemia Insulin Aspart 0 units 06/22/22 08:00 06/22/22 12:02 Insulin Aspart 300 Units/3 Ml Insuln.Pen SUBCUT 06/22/23 07:59 1 units TID.WM.[facility] Administration Protocol Levothyroxine Sodium 200 mcg 06/22/22 06:30 06/22/22 05:49 Levothyroxine 200 Mcg Tablet PO 06/22/23 06:29 200 mcg DAILY@0630 [facility] Administration Losartan Potassium 100 mg 06/22/22 09:00 06/22/22 09:07 Losartan 50 Mg Tablet PO 06/22/23 08:59 Not Given DAILY [facility] Metoprolol Succinate 100 mg 06/22/22 09:00 06/22/22 09:08 Metoprolol Succinate 100 Mg Tab.Er.24h PO 06/22/23 08:59 Not Given DAILY [facility] Rivaroxaban 15 mg 06/22/22 17:00 Rivaroxaban 15 Mg Tablet PO 06/22/23 16:59 DAILY@17 [facility] A&P - Hospitalist Assessment/Plan (1) Elevated [...] 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 DVT/PE: [place] filter in place Gout: Continue home meds DVT prophylaxis: Home Xarelto, SCD CODE STATUS: Full code Documented By: Brissa Hoffman MD 06/22/22 1411 Signed By: <Electronically signed by Brissa Hoffman MD> 06/22/22 1414 [facility] Work Phone: [phone] Consult note Author Sharron Casey [facility] June 22, 2022 12:49pm Note Date/Time June 22, 2022 11:4 0am [facility] [address] [place] [address] Cardiology Consult Note Signed Patient: Mohan Espinoza MR#: [id number] : 1935 Acct:[id number] Age/Sex: 86 / F Adm Date: 3 Loc: Room: [address] [place] [address] Type: ADM IN Attending Dr: Brissa Hoffman MD Copies to: MD Shaikh Marion Vidal MD W Scott Sheldon, DO~ Cardiology HPI History of Present Illness Consult Date: 06/22/22 Reason for Consult: Elevated cardiac biomarkers, atrial fibrillation, ASHD HPI: Ms. Espinoza is a 86 year old female seen in cardiology consultation at the request of hospitalist after patient was transferred from [place] emergency room with elevated cardiac biomarkers. She presented with symptoms of UTI, bodyaches, lower extremity weakness, rigors; very similar to symptoms she has had before with urinary tract infections. She did not complaining of any shortness of breath or chest discomfort, she was complaining of lower abdominal discomfort as well. In [place] ER, her initial high-sensitivity troponins came back elevated at 100, serum creatinine 1.8, ECG consistent with controlled atrial fibrillation. There were initial attempts to transfer her to [facility] with her primary cryptologic technician technical Dr. Randolph. They were unable to accept her immediately, there was some concern in the ER that she could not be admitted to [place] (? Unknown reason), therefore [facility] hospitalist was contacted and accepted patient in transfer. I have previously seen the patient for similar presentation with A-fib in 2019. Past medical history is noted for ASHD, [...] A-fib Impression/recommendations: Probable type II non-ST elevation [place] secondary to multiple comorbidities including obesity, chronic [...] imaging; this canbe completed with her primary cryptologic technician technical Review of Systems Review of Systems All [...] stent March 2018- 3 stents placed at [facility] History of open heart surgery x4 Family [...] x10E3/uL Lymph # (Auto) 1.4 (1.00-4.8) x10E3/uL [place] # (Auto) 0.9 H (0.0-0.8) x10E3/uL Eos [...] signed by Sharron Casey DO> 06/22/22 1249 [facility] Work Phone: [phone]) [phone] History and physical note Author Toi Johnson [facility] June 22, 2022 7:15am Note Date/Time June 22, 2022 4:22 am [facility] [address] [place] [address] Hospitalist H&P Signed Patient: Mohan Espinoza MR#: [id number] : 1935 Acct:[id number] Age/Sex: 86 / F Adm Date: 3 Loc: Room: [address] [place] [address] Type: ADM IN Attending Dr: Toi Johnson [...] RES) Anemia Diabetes Factor V Leiden Gout [place] filter in place Hypertension Hypothyroidism Myocardial infarct Non-Hodgkin lymphoma in remission Patient recieved chemo therapy Pulmonary embolism Surgical History History of appendectomy History of heart artery stent March 2018- 3 stents placed at [facility] History of open heart surgery x4 Family [...] resident's note above. Patient transferred here to [facility] due to elevated troponin and her significant [...] function. Documented By: Toi Johnson MD 3 [id number] Signed By: <Electronically signed by Toi Johnson MD> 06/22/22 0715 <Electronically signed by DO FLAQUITA Cano> 06/22/22 0614 [facility] Work Phone: Evaluation note* Diagnosis Onset Date Resolution Status Atrial fibrillation acute CAD (coronary artery disease) acute Chronic anticoagulation acut e CKD (chronic kidney disease), stage III acute Diabetes mellitus acute Dyspnea acute Elevated troponin acute Factor V Leiden acute H/O pulmonary artery thrombosis acute History of heart artery stent acute History of open heart surgery acute HTN (hypertension) acute [facility] Work Phone: Evaluation note* Diagnosis Onset Date Resolution Status NSTEMI (non-ST elevated myocardial infarction) acute Type 2 [place] (myocardial infarction) acute [facility] Work Phone: Evaluation note* Diagnosis Unspecified atrial fibrillation (CMS/HCC) documented in this encounter [facility] HealthcareEvaluation note* Diagnosis Primary hypertension ([facility]/HCC)- Primary Unspecified essential hypertension Hypothyroidism, unspecified type ([facility]/HCC) Type 2 diabetes mellitus with stage 3a chronic kidney disease, without long-term current use of insulin (HCC) ([facility]/HCC) Longstanding persistent atrial fibrillation (CMS/HCC) Coronary artery disease involving [place] coronary artery of [place] heart without angina pectoris (CMS/HCC) Essential hypertension (CMS/HCC) Unspecified essential hypertension Stage 3a chronic kidney disease (HCC) (CMS/HCC) Acquired hypothyroidism (CMS/HCC) Unspecified hypothyroidism Chronic lymphocytic leukemia (CMS/HCC) Chronic lymphoid leukemia, without mention of having achieved remission Medicare annual wellness visit, subsequent Longstanding persistent atrial fibrillation (CMS/HCC)- Primary documented in this encounter [facility] HealthcareEvaluation note* Diagnosis Primary hypertension (CMS/HCC)- Primary Unspecified essential hypertension Hypothyroidism, unspecified type (CMS/HCC) Type 2 diabetes mellitus with stage 3a chronic kidney disease, without long-term current use of insulin (HCC) (CMS/HCC) Longstanding persistent atrial fibrillation (CMS/HCC) Coronary artery disease involving [place] coronary artery of [place] heart without angina pectoris (CMS/HCC) Essential hypertension [...] inoculation against influenza documented in this encounter [facility] HealthcareEvaluation note* Diagnosis Primary hypertension (CMS/HCC)- Primary Unspecified essential hypertension Hypothyroidism, unspecified type (CMS/HCC) Type 2 diabetes mellitus with stage 3a chronic kidney disease, without long-term current use of insulin (HCC) (CMS/HCC) Longstanding persistent atrial fibrillation (CMS/HCC) Coronary artery disease involving [place] coronary artery of [place] heart without angina pectoris (CMS/HCC) Essential hypertension (CMS/HCC) Unspecified essential hypertension Stage 3a chronic kidney disease (HCC) (CMS/HCC) Acquired hypothyroidism (CMS/HCC) Unspecified hypothyroidism Chronic lymphocytic leukemia ([facility]/HCC) Chronic lymphoid leukemia, without mention of having achieved remission Medicare annual wellness visit, subsequent Longstanding persistent atrial fibrillation (CMS/HCC)- Primary Type 2 diabetes mellitus with stage 3a chronic kidney disease, without long-term current use of insulin (HCC) ([facility]/HCC)- Primary Essential hypertension (CMS/HCC) Unspecified essential hypertension Acquired hypothyroidism (CMS/HCC) Unspecified hypothyroidism Need for influenza vaccination Need for prophylactic vaccination and inoculation against influenza Hyperuricemia without signs of inflammatory arthritis and tophaceous disease Type 2 diabetes mellitus without complications (CMS/HCC) documented in this encounter [facility] HealthcareEvaluation note* Diagnosis Primary hypertension (CMS/HCC)- Primary Unspecified essential hypertension Hypothyroidism, unspecified type (CMS/HCC) Type 2 diabetes mellitus with stage 3a chronic kidney disease, without long-term current use of insulin (HCC) (CMS/HCC) Longstanding persistent atrial fibrillation (CMS/HCC) Coronary artery disease involving [place] coronary artery of [place] heart without angina pectoris (CMS/HCC) Essential hypertension [...] kidney disease (CMS/HCC) documented in this encounter [facility] HealthcareEvaluation note* Diagnosis Primary hypertension (CMS/HCC)- Primary Unspecified essential hypertension Hypothyroidism, unspecified type (CMS/HCC) Type 2 diabetes mellitus with stage 3a chronic kidney disease, without long-term current use of insulin (HCC) (CMS/HCC) Longstanding persistent atrial fibrillation (CMS/HCC) Coronary artery disease involving [place] coronary artery of [place] heart without angina pectoris (CMS/HCC) Essential hypertension (CMS/HCC) Unspecified essential hypertension Stage 3a chronic kidney disease (HCC) (CMS/HCC) Acquired hypothyroidism (CMS/HCC) Unspecified hypothyroidism Chronic lymphocytic leukemia ([facility]/HCC) Chronic lymphoid leukemia, without mention of having achieved remission Medicare annual wellness visit, subsequent Longstanding persistent atrial fibrillation (CMS/HCC)- Primary Type 2 diabetes mellitus with stage 3a chronic kidney disease, without long-term current use of insulin (HCC) ([facility]/HCC)- Primary Essential hypertension (CMS/HCC) Unspecified essential hypertension Acquired hypothyroidism (CMS/HCC) Unspecified hypothyroidism Need for influenza vaccination Need for prophylactic vaccination and inoculation against influenza Hypothyroidism, unspecified (CMS/HCC) Unspecified atrial fibrillation (CMS/HCC) documented in this encounter [facility] HealthcareEvaluation note* Diagnosis Primary hypertension (CMS/HCC)- Primary Unspecified essential hypertension Hypothyroidism, unspecified type (CMS/HCC) Type 2 diabetes mellitus with stage 3a chronic kidney disease, without long-term current use of insulin (HCC) (CMS/HCC) Longstanding persistent atrial fibrillation (CMS/HCC) Coronary artery disease involving [place] coronary artery of [place] heart without angina pectoris (CMS/HCC) Essential hypertension (CMS/HCC) Unspecified essential hypertension Stage 3a chronic kidney disease (HCC) (CMS/HCC) Acquired hypothyroidism (CMS/HCC) Unspecified hypothyroidism Chronic lymphocytic leukemia ([facility]/HCC) Chronic lymphoid leukemia, without mention of having achieved remission Medicare annual wellness visit, subsequent Longstanding persistent atrial fibrillation (CMS/HCC)- Primary Type 2 diabetes mellitus with stage 3a chronic kidney disease, without long-term current use of insulin (HCC) ([facility]/HCC)- Primary Essential hypertension (CMS/HCC) Unspecified essential hypertension Acquired hypothyroidism (CMS/HCC) Unspecified hypothyroidism Need for influenza vaccination Need for prophylactic vaccination and inoculation against influenza Type 2 diabetes mellitus without complications (CMS/HCC) documented in this encounter [facility] HealthcareEvaluation note* Diagnosis Primary hypertension (CMS/HCC)- Primary Unspecified essential hypertension Hypothyroidism, unspecified type ([facility]/HCC) Type 2 diabetes mellitus with stage 3a chronic kidney disease, without long-term current use of insulin (HCC) (CMS/HCC) Longstanding persistent atrial fibrillation (CMS/HCC) Coronary artery disease involving [place] coronary artery of [place] heart without angina pectoris (CMS/HCC) Essential hypertension (CMS/HCC) Unspecified essential hypertension Stage 3a chronic kidney disease (HCC) (CMS/HCC) Acquired hypothyroidism ([facility]/HCC) Unspecified hypothyroidism Chronic lymphocytic leukemia ([facility]/HCC) Chronic lymphoid leukemia, without mention of having [...] diabetes mellitus with diabetic chronic kidney disease ([facility]/HCC)- Primary Type 2 diabetes mellitus with diabetic cataract ([facility]/HCC) Type II or unspecified type diabetes mellitus with ophthalmic manifestations, not stated as uncontrolled Chronic diastolic (congestive) heart failure ([facility]/HCC) Chronic kidney disease, stage 3b (HCC) ([facility]/HCC) Type 2 diabetes mellitus with diabetic polyneuropathy ([facility]/HCC) 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 elsewhere ([facility]) Chronic lymphocytic leukemia of B-cell type not having achieved remission ([facility]/HCC) Hairy cell leukemia, in remission ([facility]) Unspecified atrial fibrillation ([facility]) Morbid (severe) obesity due to excess calories ([facility]) Body mass index (BMI) 40.0-44.9, adult ([facility]) Cardiomyopathy, ischemic ([facility]/HCC) Other specified forms of chronic ischemic heart disease Coronary artery disease involving [place] coronary artery of [place] heart without angina pectoris (CMS/HCC) Essential hypertension ([facility]/HCC) Unspecified essential hypertension Acquired hypothyroidism ([facility]/HCC) Unspecified hypothyroidism Factor V Leiden mutation ([facility]/HCC) Primary hypercoagulable state Statin intolerance Hyperuricemia without signs of inflammatory arthritis and tophaceous disease documented in this encounter [facility] Summary Purpose Family History No Family History [...] mother Cerebrovascular accident (CVA) Unknown Advance Directives No Advanced Directives Records Found Advance Directive Response Recorded Date/ Time Advance Directives No April 13, 2019 7:25pm Hospital Course Note MR#: [id number] [facility] Pt. Name: Mohan Espinoza Admitted: 04/06/2018 Discharged: [...] as above, the patient was seen in [facility] after she was feeling weak for 1 day. In [facility], she was found to have a temperature [...] (non-ST eleva ruma myocardial infarction) Type 2 [place] (myocardial infarction) Chief Complaint * [facility]. * 86-year-old female returns for [...] section and content) DATE CREATED AUTHOR 11/06/2017 [facility] DATE CREATED AUTHOR AUTHOR'S ORGANIZ ATION 04/04/2019 [facility] DATE CREATED AUTHOR AUTHOR'S ORGANIZ ATION 04/18/2020 [facility] DATE CREATED AUTHOR AUTHOR'S ORGANIZ ATION 06/24/2022 [facility] DATE CREATED AUTHOR AUTHOR'S ORGANIZ ATION 09/26/2022 [facility] DATE CREATED AUTHOR AUTHOR'S ORGANIZ ATION 10/01/2022 [facility] DATE CREATED AUTHOR AUTHOR'S ORGANIZ ATION 10/01/2022 [employer] DATE CREATED AUTHOR AUTHOR'S ORGANIZ ATION 12/30/2023 [facility] DATE CREATED AUTHOR AUTHOR'S ORGANIZ ATION 01/12/2024 [facility] DATE CREATED AUTHOR AUTHOR'S ORGANIZ ATION 05/27/2024 [facility] d[facility] Specialists EPIC Care Teams (unrecognized [...] December 25, 2023 End: December 28, 2023 CONNOR MathewsC Primary Care Provider Ac tive Start: December 25, 2023 End: December 28, 2023 Data Communications Engineer Relationship Specialty Start Date End Date Fabricio Edouard MD [address] [place] [address] PCP - General Family Medicine 10/20/23 Emilie Meza NP [address] [place] [address] Nurse Practitioner Family Medicine 10/20/23 Data Communications Engineer Relationship Specialty Start Date End Date Fabricio Edouard MD [address] [place] [phone] PCP - General Family Medicine 10/20/23 Emilie Meza NP [address] [place] [address] Nurse Practitioner Family Medicine 10/20/23 Data Communications Engineer Relationship Specialty Start Date End Date Fabricio Edouard MD [address] [place] [phone] PCP - General Family Medicine 10/20/23 Emilie Meza NP [address] [place] [phone] Nurse Practitioner Family Medicine 10/20/23 Data Communications Engineer Relationship Specialty Start Date End Date Fabricio Edouard MD [address] [place] [phone] PCP - General Family Medicine 10/20/23 Emilie Meza NP [address] [place] [address] Nurse Practitioner Family Medicine 10/20/23 Data Communications Engineer Relationship Specialty Start Date End Date Fabricio Edouard MD [address] [place] [phone] PCP - General Family Medicine 10/20/23 Emilie Meza NP [address] [place] [address] Nurse Practitioner Family Medicine 10/20/23 Data Communications Engineer Relationship Specialty Start Date End Date Fabricio Edouard MD [address] [place] [phone] PCP - General Family Medicine 10/20/23 Emilie Meza NP [address] [place] [address] Nurse Practitioner Family Medicine 10/20/23 Data Communications Engineer Relationship Specialty Start Date End Date Fabricio Edouard MD [address] [place] [phone] PCP - General Family Medicine 10/20/23 Emilie Meza NP [address] [place] [address] Nurse Practitioner Family Medicine 10/20/23 Data Communications Engineer Relationship Specialty Start Date End Date Fabricio Edouard MD [address] [place] [phone] PCP - General Family Medicine 10/20/23 Emilie Meza NP [address] [place] [address] Nurse Practitioner Family Medicine 10/20/23 Data Communications Engineer Relationship Specialty Start Date End Date Fabricio Edouard MD [address] [place] [phone] PCP - General [facility] 10/20/23 Emilie Meza NP [address] [place] [phone] Nurse Practitioner [facility] 10/20/23 Data Communications Engineer Relationship Specialty Start Date End Date Fabricio Edouard MD [address] [place] [phone] PCP - General [facility] 10/20/23 Emilie Meza NP [address] [place] [phone] Nurse Practitioner [facility] Medicine 10/20/23 Reason for Visit (unrecogniz ed section and content) Reason Onset Date Comments Med Refill 12/28/2023 Reason Comments Hospital Follow-up Reason Comments Hypertension Reason Onset Date Comments Med Refill 02/28/2024 Reason Onset Date Comments Med Refill 04/05/2024 Reason Comments Diabetes FOR RECORDS PERTAINING TO PATIENTS WHO ARE [...] BE BASED ON THE PRIMARY CLINICAL RECORDS. [employer] provides no warranty or guarantee of the accuracy or completeness of information in this document.
[2024-07-06 18:23] LABS: Alanine Aminotransferase 21 U/L (14-59); Albumin Globulin Ratio 0.8; Albumin Level 3.2 g/dL (3.4-5.0); Alkaline Phosphatase 105 U/L (46-116); Aspartate Amino Transferase 20 U/L (15-37); Bilirubin Direct 0.1 mg/dL (0.0-0.2); Bilirubin Total 0.5 mg/dL (0.2-1.0); Globulin 4.2 g/dL; Magnesium 1.1 mg/dL (1.8-2.4); Thyroid Stimulating Hormone 0.564 uIU/mL (0.358-3.740); Total Protein 7.4 g/dL (6.4-8.2)
[2024-07-06] MEDS: RIVAROXABAN 10 MG TABLET 15 MG PO (18:29)
[2024-07-06] MEDS: CEFTRIAXONE 1,000 MG in 0.9 % SODIUM CHLORIDE 50 ML 100 MG IV (18:29)
[2024-07-06] MEDS: LACTATED RINGER'S SOLUTION 1,000 ML 100 ML IV (18:29)
[2024-07-06 19:50] VITALS: BP 144/84; PULSE 85; TEMP 36.9; O2SAT 93
[2024-07-06 19:57] VITALS: O2SAT 92
[2024-07-06 20:23] LABS: Glucometer 252 mg/dL (74-106)
[2024-07-06] MEDS: GLIPIZIDE 10 MG TABLET PO (21:45)
[2024-07-06] MEDS: INSULIN ASPART 300 UNIT/3 ML PEN SUBQ (21:45)
[2024-07-07] VITALS (8 sets, daily range): BP systolic 132–149; BP diastolic 72–90; PULSE 68–87; TEMP 36.4–36.8; O2SAT 92–98
--- NOTE | 2024-07-07 01:05 | PC.NURSE ---
iv attempt times 2. one to left hand, one to left arm both with 22 guage catheters, both attempts unsuccessful. DGangluff Rn Into try iv.
[2024-07-07] MEDS: LACTATED RINGER'S SOLUTION 1,000 ML 100 ML IV ×2 (05:46→23:06)
[2024-07-07] MEDS: LEVOTHYROXINE SODIUM 100 MCG TABLET 200 MCG PO (05:46)
[2024-07-07 06:30] LABS: Basophils Absolute Auto 0.1 10^3/uL (0.0-0.1); Basophils Percent Auto 0.6 % (0.2-2.0); Eosinophils Percent Auto 0.4 % (0.9-7.0); Hematocrit 42.4 % (36.0-48.0); Immature Granulocytes Abs Auto 0.05 10^3/uL (0.00-0.03); Immature Granulocytes Pct Auto 0.6 % (0.0-0.5); Lymphocytes Absolute Auto 2.2 10^3/uL (1.2-3.8); Lymphocytes Percent Auto 27.1 % (20.5-60.0); Mean Corpuscular Hemoglobin 30.7 pg (26.7-34.0); Mean Platelet Volume 11.4 fL (9.5-13.5); Monocytes Absolute Auto 0.8 10^3/uL (0.3-0.8); Neutrophils Absolute Auto 5.1 10^3/uL (1.4-6.5); Neutrophils Percent Auto 61.3 % (43.0-75.0); Platelet Count 172 10^3/uL (150-450); Red Blood Count 4.56 10^6/uL (4.20-5.40); Red Cell Distribution Width 13.8 % (11.0-15.0); White Blood Count 8.2 10^3/uL (4.0-11.0)
[2024-07-07 06:43] LABS: Anion Gap 14.6; BUN Creatinine Ratio 24.7; Calcium 8.4 mg/dL (8.5-10.1); Chloride 102 mmol/L (98-107); Estimated GFR (African America 35 (>=60 mL/min/1.73m^2); Estimated GFR (Non-African Ame 29 (>=60 mL/min/1.73m^2); Glucose 109 mg/dL (74-106); Potassium 3.6 mmol/L (3.5-5.1); Sodium 137 mmol/L (136-145)
--- NOTE | 2024-07-07 06:53 | P.PN_ITS ---
Progress Note: Subjective Subjective Interval history: Patient still describes significant weakness this morning, shortness of breath Exam Constitutional Vital Signs, click to edit/add: Last Vital Signs Temp 97.7 F 07/07/24 04:00 Pulse 82 07/07/24 04:00 Resp 18 07/07/24 04:00 BP 132/74 07/07/24 04:00 Pulse Ox 93 L 07/07/24 04:00 O2 Del Method Room Air 07/07/24 04:00 Documenting provider has reviewed patient's vital signs: yes Common normals: no apparent distress Respiratory Common normals: normal respiratory effort, no retractions and clear to auscultation bilaterally Cardio Common normals: regular rate and regular rhythm Rate: not tachycardic GI Common normals: Normal to inspection, nondistended, normoactive bowel sounds present and soft to palpation Neuro Brennon Coma Scale: document GCS findings Progress Note: Objective Labs Labs: Short CBC 07/06/24 07/07/24 Range/Units 13:46 06:03 WBC 12.8 H 8.2 (4.0-11.0) 10^3/uL Hgb 15.4 14.0 (12.0-16.0) g/dL Hct 45.7 42.4 (36.0-48.0) % Plt Count 194 172 (150-450) 10^3/uL BMP 07/06/24 07/07/24 13:46 06:03 Sodium 137 137 Potassium 4.3 3.6 Chloride 100 102 Carbon Dioxide 25.7 24.0 BUN 37.0 H 41.0 H Creatinine 1.65 H 1.66 H Glucose 174 H 109 H Calcium 9.0 8.4 L Liver Function 07/06/24 Range/Units 13:46 Total Bilirubin 0.5 (0.2-1.0) mg/dL Direct Bilirubin 0.1 (0.0-0.2) mg/dL AST 20 (15-37) U/L ALT 21 (14-59) U/L Alkaline Phosphatase 105 (46-116) U/L Albumin 3.2 L (3.4-5.0) g/dL Urine 07/06/24 Range/Units 13:52 Urine Color Lt. yellow (YELLOW) Urine Clarity Clear (CLEAR) Urine pH 6.0 (5.0-9.0) Ur Specific [place] 1.020 (1.005-1.025) Urine Protein Negative (NEG/TRACE) mg/dL Urine Glucose (UA) Negative (NEGATIVE) mg/dL Progress Note: A&P Assessment and Plan (1) Generalized weakness: (2) D-dimer, elevated: (3) Elevated troponin: (4) Atrial fibrillation with RVR: Plan Admission findings: tachycardia, labile hypertension, leukocytosis, mild elevation in creatinine with an acute UTI resulting in criteria for sepsis (tachycardia, leukocytosis with a known infectious source of urine) Sepsis secondary to likely pyelonephritis with back pain-maintain current antibiotics until cultures returned Leukocytosis secondary to the above-improved Acute elevation in creatinine secondary to dehydration, 125.4% above baseline- still above baseline, small fluid bolus today Atrial fibrillation-rates not controlled-but improving with IV fluids, check echocardiogram,-improved, troponin and BNP negative Coronary artery disease-see above Knee pain bilaterally-check x-rays show moderate arthritis Diabetes mellitus-insulin sliding scale-stable Admission status: Patient with tachycardia, labile hypertension, leukocytosis with known infectious source reviewed urine and back pain likely pyelonephritis, resulting in sepsis, medically necessary treatment will span 2 midnights. Inpatient status, maintain inpatient status as creatinine is not improved, fluid bolus given today, maintain IV antibiotics for pyelonephritis ?
--- NOTE | 2024-07-07 08:29 | CM.NOTE ---
Rounds made with Dr. White, PT and OT will evaluate pt today for discharge planning. No discharge today. Pt c/o increased SOB with minimal activity.
[2024-07-07 08:53] LABS: Glucometer 98 mg/dL (74-106)
[2024-07-07] MEDS: METFORMIN HCL 500 MG TABLET PO ×2 (09:04→17:26)
[2024-07-07] MEDS: ACETAMINOPHEN 500 MG TABLET 1000 MG PO (09:04)
[2024-07-07] MEDS: ALLOPURINOL 300 MG TABLET PO (09:04)
[2024-07-07] MEDS: MAGNESIUM SULFATE IN WATER 4 GM/100 ML PIGGYBACK IV (09:04)
[2024-07-07] MEDS: MAGNESIUM OXIDE 400 MG TABLET PO ×2 (09:04→21:29)
[2024-07-07] MEDS: GLIPIZIDE 10 MG TABLET PO ×2 (09:04→21:29)
[2024-07-07] MEDS: METOPROLOL SUCCINATE 50 MG TAB.ER.24H 150 MG PO (09:04)
--- NOTE | 2024-07-07 10:04 | CM.NOTE ---
Important Message From Medicare discussed with pt, pt verbalizes understanding and signs paper. Original given to pt and copy placed on pt's chart.
[2024-07-07 12:00] LABS: Glucometer 132 mg/dL (74-106)
--- NOTE | 2024-07-07 13:09 | CM.NOTE ---
Spoke with Kiara Anderson at [facility] they will be able to accept pt, awaiting PT and OT notes and will send after documentation completed.
--- NOTE | 2024-07-07 14:04 | CM.NOTE ---
PT note faxed to [facility] and e-mailed to Fausto.
--- NOTE | 2024-07-07 15:24 | CM.NOTE ---
Faxed OT note and e-mailed note to Fausto morton [place].
[2024-07-07 16:15] LABS: Glucometer 159 mg/dL (74-106)
[2024-07-07] MEDS: 0.9 % SODIUM CHLORIDE 250 ML 10 ML IV (17:26)
[2024-07-07] MEDS: CEFTRIAXONE 1,000 MG in 0.9 % SODIUM CHLORIDE 50 ML 100 MG IV (17:26)
[2024-07-07] MEDS: RIVAROXABAN 10 MG TABLET 15 MG PO (17:33)
--- NOTE | 2024-07-07 17:50 | CA_ITS ---
Patient Name: MOHAN INTERIANO MR#: [id number] : 1935 Exam Date: 07/07/2024 Ordering Doctor: DR Stuart White . ECHOCARDIOGRAM REPORT PROCEDURE: CA ECHO DOPPLER COMPLETE INDICATIONS: Dyspnea, CABGx4, cardiac stents, atrial fibrillation, diabetes, Non Hodgkin's lymphoma COMPARISON: None. DESCRIPTION: COMPLETE ECHOCARDIOGRAM Real-time transthoracic echocardiography with 2D, M-mode, spectral and color flow Doppler performed. QUALITY: Technical quality was good. LEFT VENTRICLE: Normal chamber size. Mild concentric left ventricular hypertrophy. Normal systolic function. LV EF: Normal left ventricular ejection fraction, (55%). DIASTOLIC: Not adequately assessed due to heart rhythm. ATRIAL SEPTUM: LEFT ATRIUM: Moderate dilatation. RIGHT ATRIUM: Moderate dilatation. RIGHT VENTRICLE: Mild dilatation. Normal right ventricular systolic function. TRICUSPID VALVE: Normal mobility and thickness. No stenosis with mild to moderate regurgitation. Doppler studies reveal moderately (45-60) elevated right sided pressures. RVSP 56 mmHg MITRAL VALVE: Normal mobility and thickness. No evidence of mitral valve stenosis. There is no mitral annular calcification. Mild mitral regurgitation. AORTIC VALVE: Normal trileaflet appearance. Left coronary cusp appears to have diminished mobility. Mild aortic regurgitation. AORTIC ROOT: Normal diameter and appearance, measuring 3.4 cm. Ascending aorta is normal in size, measuring 2.9 cm. PULMONIC VALVE: Normal thickness and mobility. No stenosis. Mild regurgitation. PERICARDIUM: No evidence of pericardial effusion. IVC: IVC is dilated (2.4 cm), does not collapse. PLEURA: CONCLUSION: 1. Mild concentric left ventricular hypertrophy with normal systolic function. Estimated LVEF is 55%. 2. Mildly dilated right ventricle with normal systolic function. 3. Moderate biatrial dilatation. 4. Mild aortic and mitral regurgitation. 5. Mild to moderate tricuspid regurgitation. 6. Moderately elevated right-sided pressures. RVSP is 56 mmHg. Adult Echocardiography Procedure Report Left Ventricle LVEDD (3.7 - 5.6 cm): 4.57 cm LVESD (2.2 - 4.0 cm): 3.75 cm LVIVS thickness (0.6 - 1.2 cm): 1.18 cm LVPW thickness (0.5 - 1.0 cm): 1.05 cm LVOT Max Gradient: 2.01 mm[Hg] LVOT Area (cm2): 0.71 m/s Peak Velocity (LVOT): 0.71 m/s LVOT Diameter 2.17 cm Left Atrium LA Volume Index (2D A2C): 47.98 ml/m2 Left Atrium Systolic Dimension: 4.01 cm Mitral Valve Mitral Valve E-Wave Peak Velocity: 0.96 m/s Right Ventricle Aorta AO Root Diam: 3.39 cm Ascending Ao Diam: 2.92 cm Aortic Valve AoV Area (Peak Tito): 2.30 cm2, 2.30 cm2 Peak Velocity(Antegrade Flow): 1.14 m/s Peak Gradient(Antegrade Flow): 5.17 mm[Hg] Tricuspid Valve Peak Velocity (Regurgitant Flow): 3.22 m/s, 2.81 m/s, 3.12 m/s Pulmonic Valve Peak Velocity: 0.90 m/s Peak Gradient: 3.74 mm[Hg], 2.84 mm[Hg], 3.46 mm[Hg], 3.01 mm[Hg] Right Atrium Right Atrium Systolic Pressure: 73.41 ml, 73.41 ml Dictated by: Irwin Randolph M.D. on 07/07/2024 at 14:55 Approved by: Irwin Randolph M.D. on 07/07/2024 at 15:01
[2024-07-07 22:45] LABS: Glucometer 174 mg/dL (74-106)
[2024-07-08] VITALS (8 sets, daily range): BP systolic 131–173; BP diastolic 72–84; PULSE 76–88; TEMP 36.5–36.9; O2SAT 91–94
[2024-07-08] MEDS: LEVOTHYROXINE SODIUM 100 MCG TABLET 200 MCG PO (05:47)
[2024-07-08 06:12] LABS: Basophils Absolute Auto 0.1 10^3/uL (0.0-0.1); Basophils Percent Auto 0.8 % (0.2-2.0); Eosinophils Absolute Auto 0.2 10^3/uL (0.0-0.7); Eosinophils Percent Auto 2.8 % (0.9-7.0); Hematocrit 37.2 % (36.0-48.0); Hemoglobin 12.5 g/dL (12.0-16.0); Immature Granulocytes Abs Auto 0.04 10^3/uL (0.00-0.03); Immature Granulocytes Pct Auto 0.5 % (0.0-0.5); Lymphocytes Absolute Auto 2.1 10^3/uL (1.2-3.8); Lymphocytes Percent Auto 27.5 % (20.5-60.0); Mean Corpuscular HGB Conc 33.6 g/dL (29.9-35.2); Mean Corpuscular Hemoglobin 31.3 pg (26.7-34.0); Mean Platelet Volume 11.6 fL (9.5-13.5); Monocytes Absolute Auto 0.9 10^3/uL (0.3-0.8); Monocytes Percent Auto 12.3 % (1.7-12.0); Neutrophils Absolute Auto 4.2 10^3/uL (1.4-6.5); Neutrophils Percent Auto 56.1 % (43.0-75.0); Platelet Count 171 10^3/uL (150-450); Red Cell Distribution Width 13.7 % (11.0-15.0); White Blood Count 7.5 10^3/uL (4.0-11.0)
[2024-07-08 06:23] LABS: Anion Gap 11.8; BUN Creatinine Ratio 30.2; Calcium 8.4 mg/dL (8.5-10.1); Chloride 104 mmol/L (98-107); Estimated GFR (African America 49 (>=60 mL/min/1.73m^2); Estimated GFR (Non-African Ame 40 (>=60 mL/min/1.73m^2); Glucose 98 mg/dL (74-106); Magnesium 1.8 mg/dL (1.8-2.4); Potassium 3.8 mmol/L (3.5-5.1); Sodium 139 mmol/L (136-145)
[2024-07-08] MEDS: MAGNESIUM OXIDE 400 MG TABLET PO ×2 (08:24→21:48)
[2024-07-08] MEDS: METOPROLOL SUCCINATE 50 MG TAB.ER.24H 150 MG PO (08:24)
[2024-07-08] MEDS: ALLOPURINOL 300 MG TABLET PO (08:24)
[2024-07-08] MEDS: GLIPIZIDE 10 MG TABLET PO ×2 (08:24→21:48)
[2024-07-08] MEDS: METFORMIN HCL 500 MG TABLET PO ×2 (08:25→16:17)
[2024-07-08] MEDS: LACTATED RINGER'S SOLUTION 1,000 ML 100 ML IV (09:04)
--- NOTE | 2024-07-08 10:12 | PT.DAILY ---
Physical Therapy Daily Note PT Daily Note/Assess Start: 07/08/24 09:56 Freq: Status: Active Protocol: Document 07/08/24 09:56 [id number] (Rec: 07/08/24 10:12 [id number]) Physical Therapy Daily Note/Assessment Time In/Time Out Time In 08:15 Time Out 08:40 Pain In Pain Level 8 Pain Out Pain Level 8 Subjective Subjective Patient received supine in bed and agreeable to participate with PT. States her legs are very painful today. Requests to use BSC. Therapeutic Exercise Time Therapeutic Exercise 13 Minutes (minutes) Therapeutic Exercise 1 Units Therapeutic Exercise Treatment Therapeutic Exercise Patient performed supine AAROM L foot DF @ 10 reps and Treatment AAROM L SLR x 15 reps. R LE ther ex for AAROM ankle pumps, SLR, hip ABD x 10 reps. Passive L hip IR stretching to increase flexibility to improve ability to perform bed mobility. Therapeutic Activity Time Therapeutic Activity 12 Minutes (minutes) Therapeutic Activity 1 Units Therapeutic Activity Treatment Bed Mobility Ability Minimum Assist,Moderate Assist Chair Transfer Minimum Assist Ability Therapeutic Activity Bed mobility: supine to L sitting with use of L hand Comments rail. Patient pulls on sock to assist with moving legs to EOB. Good balance sitting EOB without UE support. Transfer: sit to stand to 2WW with MIN A +1. Verbal cues for safe hand placement on bed to push up. Patient able to take 4 steps while pivoting to BSC and is CGA for stand to sit. Patient is able to clean renzo area. MAX A +1 to doff and arturo under garment. BSC to 2WW transfer is MIN A +1 with verbal cues for safe hand placement. Patient states it is to painful to the legs to walk today. Patient returned to EOB and required MOD A +1 for LE management placement onto bed. CBWR and all post treatment needs met. Total Physical Therapy Time Total Therapy 25 Minutes Total Physical 2 Therapy Units Summary Daily Note Summary Patient verbalizes considerable pain to R knee, specifically to R patella and L hip during ther ex and request to not walk. Attempted to encourage patient to participate and continued to decline. Patient demonstrates increased antalgia when weight shifting to load and unload LE during transfers from 2WW to BSC. Patient required less assistance with bed mobility. Patient would benefit from SNF to address functional deficits for return to PLOF.
[2024-07-08 11:17] LABS: Glucometer 181 mg/dL (74-106)
[2024-07-08] MEDS: INSULIN ASPART 300 UNIT/3 ML PEN SUBQ ×2 (11:22→16:21)
[2024-07-08] MEDS: CEFTRIAXONE 1,000 MG in 0.9 % SODIUM CHLORIDE 50 ML 100 MG IV (16:13)
[2024-07-08] MEDS: RIVAROXABAN 10 MG TABLET 15 MG PO (16:17)
[2024-07-08 16:21] LABS: Glucometer 254 mg/dL (74-106)
--- NOTE | 2024-07-08 16:41 | PM.IMPN1 ---
Progress Note: A&P Assessment and Plan (1) Generalized weakness: Assessment and Plan: Due to dehydration, possible UTI. Improved but overall poor functional status with gradual decline in physical health. PT/OT eval and treatment. Will benefit from SNF placement (2) Fall: Assessment and Plan: Due to legs giving out. No sig injury. No head trauma. PT/OT. Will benefit from placement into SNF for rehab. Qualifiers: Encounter type: subsequent encounter Qualified Code(s): W19.XXXD - Unspecified fall, subsequent encounter (3) Atrial fibrillation: Assessment and Plan: In NSR. On Xarelto for Stroke px. Qualifiers: Atrial fibrillation type: paroxysmal Qualified Code(s): I48.0 - Paroxysmal atrial fibrillation (4) Diabetes: Assessment and Plan: FSBS at goal. C/w home medications. 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 (6) History of pulmonary embolism: Assessment and Plan: On Xarelto. (7) (HFpEF) heart failure with preserved ejection fraction: Assessment and Plan: More or less euvolemic. Stop IVF. Start Lasix from tomorrow. Qualifiers: Heart failure chronicity: chronic Qualified Code(s): I50.32 - Chronic diastolic (congestive) heart failure (8) CKD stage 3a, GFR 45-59 ml/min: Assessment and Plan: Renal fx more or less at baseline. Monitor. (9) HTN (hypertension): Assessment and Plan: Stable. C/w home medications Qualifiers: Hypertension type: primary hypertension Qualified Code(s): I10 - Essential (primary) hypertension (10) Hypothyroid: Assessment and Plan: C/w Levothyroxine Qualifiers: Hypothyroidism type: unspecified Qualified Code(s): E03.9 - Hypothyroidism, unspecified Internal Medicine - PN: Subj Subjective Interval history: Seen and examined. Feels well overall except for generalized weakness, fatigue. No overnight events. Exam Constitutional Vital Signs, click to edit/add: Last Vital Signs Temp 98.4 F 07/08/24 15:38 Pulse 88 07/08/24 15:38 Resp 20 07/08/24 15:38 BP 149/75 H 07/08/24 15:38 Pulse Ox 93 L 07/08/24 15:38 O2 Del Method Room Air 07/08/24 15:38 Documenting provider has reviewed patient's vital signs: yes Common normals: no apparent distress and oriented x3 General appearance: cooperative Respiratory Common normals: normal respiratory effort and clear to auscultation bilaterally Effort & inspection: able to speak in complete sentences Auscultation: clear to auscultation bilaterally Cardio Common normals: regular rate, S1 normal heart sound and S2 normal heart sound Rate: regular rate Heart sounds: S1 normal and S2 normal Extremity Common normals: no clubbing, cyanosis or edema Neuro Common normals: oriented x3, moves all extremities and no focal motor deficits Psych Common normals: mental status grossly normal, denies hallucinations, denies homicidal ideation and denies suicidal ideation Internal Medicine - PN: Obj Da Labs Labs: Laboratory Results - last 24 hr 07/07/24 07/08/24 07/08/24 19:49 05:57 11:16 WBC 7.5 RBC 4.00 L Hgb 12.5 Hct 37.2 MCV 93.0 MCH 31.3 MCHC 33.6 RDW 13.7 Plt Count 171 MPV 11.6 Neut % (Auto) 56.1 Lymph % (Auto) 27.5 [place] % (Auto) 12.3 H Eos % (Auto) 2.8 Baso % (Auto) 0.8 Neut # (Auto) 4.2 Lymph # (Auto) 2.1 [place] # (Auto) 0.9 H Eos # (Auto) 0.2 Baso # (Auto) 0.1 Abs Immat Gran (auto) 0.04 H Imm/Tot Granulo (auto) 0.5 Sodium 139 Potassium 3.8 Chloride 104 Carbon Dioxide 27.0 Anion Gap 11.8 BUN 38.0 H Creatinine 1.26 H Est GFR ( Amer) 49 L Est GFR (Non-Af Amer) 40 L BUN/Creatinine Ratio 30.2 Glucose 98 Calcium 8.4 L Magnesium 1.8 POC Glucose 174 H 181 H 07/08/24 16:19 WBC RBC Hgb Hct MCV MCH MCHC RDW Plt Count MPV Neut % (Auto) Lymph % (Auto) [place] % (Auto) Eos % (Auto) Baso % (Auto) Neut # (Auto) Lymph # (Auto) [place] # (Auto) Eos # (Auto) Baso # (Auto) Abs Immat Gran (auto) Imm/Tot Granulo (auto) Sodium Potassium Chloride Carbon Dioxide Anion Gap BUN Creatinine Est GFR ( Amer) Est GFR (Non-Af Amer) BUN/Creatinine Ratio Glucose Calcium Magnesium POC Glucose 254 H
[2024-07-08 19:35] LABS: Glucometer 164 mg/dL (74-106)
[2024-07-09 00:54] VITALS: BP 155/85; PULSE 90; TEMP 37.2; O2SAT 90
[2024-07-09 03:48] VITALS: BP 137/75; PULSE 86; TEMP 36.6; O2SAT 92
[2024-07-09] MEDS: LEVOTHYROXINE SODIUM 100 MCG TABLET 200 MCG PO (05:31)
[2024-07-09 06:14] LABS: Basophils Absolute Auto 0.1 10^3/uL (0.0-0.1); Basophils Percent Auto 0.6 % (0.2-2.0); Eosinophils Absolute Auto 0.2 10^3/uL (0.0-0.7); Eosinophils Percent Auto 2.2 % (0.9-7.0); Hematocrit 37.5 % (36.0-48.0); Hemoglobin 12.3 g/dL (12.0-16.0); Immature Granulocytes Abs Auto 0.04 10^3/uL (0.00-0.03); Immature Granulocytes Pct Auto 0.5 % (0.0-0.5); Lymphocytes Percent Auto 24.3 % (20.5-60.0); Mean Corpuscular HGB Conc 32.8 g/dL (29.9-35.2); Mean Corpuscular Hemoglobin 30.8 pg (26.7-34.0); Mean Platelet Volume 11.4 fL (9.5-13.5); Monocytes Absolute Auto 1.1 10^3/uL (0.3-0.8); Monocytes Percent Auto 13.2 % (1.7-12.0); Neutrophils Absolute Auto 4.8 10^3/uL (1.4-6.5); Neutrophils Percent Auto 59.2 % (43.0-75.0); Platelet Count 168 10^3/uL (150-450); Red Blood Count 3.99 10^6/uL (4.20-5.40); Red Cell Distribution Width 13.6 % (11.0-15.0); White Blood Count 8.1 10^3/uL (4.0-11.0)
[2024-07-09 06:25] LABS: Anion Gap 9.8; BUN Creatinine Ratio 26.8; Calcium 8.8 mg/dL (8.5-10.1); Carbon Dioxide 27.2 mmol/L (21.0-32.0); Chloride 105 mmol/L (98-107); Estimated GFR (African America 50 (>=60 mL/min/1.73m^2); Estimated GFR (Non-African Ame 41 (>=60 mL/min/1.73m^2); Glucose 108 mg/dL (74-106); Magnesium 1.7 mg/dL (1.8-2.4); Sodium 138 mmol/L (136-145)
[2024-07-09 08:00] VITALS: BP 139/77; PULSE 84; TEMP 36.6; O2SAT 94
[2024-07-09] MEDS: NYSTATIN 15 GM POWDER 1 APPLIC TOPICAL (08:33)
[2024-07-09] MEDS: MAGNESIUM OXIDE 400 MG TABLET PO (08:34)
[2024-07-09] MEDS: FUROSEMIDE 40 MG TABLET PO (08:34)
[2024-07-09] MEDS: ALLOPURINOL 300 MG TABLET PO (08:34)
[2024-07-09] MEDS: METOPROLOL SUCCINATE 50 MG TAB.ER.24H 150 MG PO (08:34)
[2024-07-09] MEDS: METFORMIN HCL 500 MG TABLET PO (08:34)
[2024-07-09] MEDS: GLIPIZIDE 10 MG TABLET PO (08:34)
[2024-07-09 11:50] VITALS: O2SAT 93
--- NOTE | 2024-07-09 12:23 | P.DS_ITS ---
DS: Providers Provider Date of admission: 07/06/24 16:33 Primary care physician: EMILIE FAIR Admitting clinician: Stuart White Attending physician on admission: Stuart White Consults: 07/06/24 17:47 Consult to Pharmacy Routine Consulting Provider: Reason for consultation: Please [place] me when Med Rec is Updated Has provider been notified: No Occupational Therapy Eval and Treat Routine Reason for consultation: Only if needed for Rehab Has provider been notified: No Physical Therapy Eval and Treat Routine Reason for consultation: Eval and Treat Has provider been notified: No Attending physician on discharge: Shaikh Marion Discharging clinician: Shaikh Marion DS: Diagnosis Discharge Diagnosis (1) Generalized weakness: (2) Fall: Qualifiers: Encounter type: subsequent encounter Qualified Code(s): W19.XXXD - Unspecified fall, subsequent encounter (3) Atrial fibrillation: Qualifiers: Atrial fibrillation type: paroxysmal Qualified Code(s): I48.0 - Paroxysmal atrial fibrillation (4) Diabetes: Qualifiers: Diabetes mellitus type: type 2 Diabetes mellitus fdc insulin use: without assistant terminal manager use Diabetes mellitus complication status: with kidney complications Diabetes mellitus complication detail: with chronic kidney disease Chronic kidney disease stage: stage 3 (moderate) Chronic kidney disease stage 3 subtype: stage 3a (GFR 45-59) Qualified Code(s): E11.22 - Type 2 diabetes mellitus with diabetic chronic kidney disease; N18.31 - Chronic kidney disease, stage 3a (5) Factor V Leiden mutation: (6) History of pulmonary embolism: (7) (HFpEF) heart failure with preserved ejection fraction: Qualifiers: Heart failure chronicity: chronic Qualified Code(s): I50.32 - Chronic diastolic (congestive) heart failure (8) CKD stage 3a, GFR 45-59 ml/min: (9) HTN (hypertension): Qualifiers: Hypertension type: primary hypertension Qualified Code(s): I10 - Essential (primary) hypertension (10) Hypothyroid: Qualifiers: Hypothyroidism type: unspecified Qualified Code(s): E03.9 - Hypothyroidism, unspecified DS: Summary Hospital Course Hospital Course: 88-year-old female with past medical history of recurrent VTE, heart failure wi th preserved ejection fraction, severe osteoarthritis of bilateral knees, presented to ED for generalized weakness, difficulty with ambulation and fall at home. Her trauma workup was unremarkable. Upon evaluation, she was dehydrated with mild acute kidney insufficiency along with UTI. She was treated with IV hydration and IV Rocephin. Patient was evaluated by PT/OT. She subjectively feels well but is still unable to ambulate safely and will require continued rehab. Time Spent with Patient Time attestation: Total time spent providing and/or coordinating discharge services: Exam Constitutional Vital Signs, click to edit/add: Last Vital Signs Temp 98 F 07/09/24 08:00 Pulse 84 07/09/24 08:00 Resp 20 07/09/24 08:00 BP 139/77 07/09/24 08:00 Pulse Ox 93 L 07/09/24 11:50 O2 Del Method Room Air 07/09/24 11:50 DS: Data Data Completed and Pending Labs on day of discharge: Labs from last 24 hours 07/09/24 07/08/24 07/08/24 05:56 19:34 16:19 WBC 8.1 RBC 3.99 L Hgb 12.3 Hct 37.5 MCV 94.0 MCH 30.8 MCHC 32.8 RDW 13.6 Plt Count 168 MPV 11.4 Neut % (Auto) 59.2 Lymph % (Auto) 24.3 [place] % (Auto) 13.2 H Eos % (Auto) 2.2 Baso % (Auto) 0.6 Neut # (Auto) 4.8 Lymph # (Auto) 2.0 [place] # (Auto) 1.1 H Eos # (Auto) 0.2 Baso # (Auto) 0.1 Abs Immat Gran (auto) 0.04 H Imm/Tot Granulo (auto) 0.5 Sodium 138 Potassium 4.0 Chloride 105 Carbon Dioxide 27.2 Anion Gap 9.8 BUN 33.0 H Creatinine 1.23 H Est GFR ( Amer) 50 L Est GFR (Non-Af Amer) 41 L BUN/Creatinine Ratio 26.8 Glucose 108 H Calcium 8.8 Magnesium 1.7 L POC Glucose 164 H 254 H Preliminary micro results at discharge 07/06/24 14:14 Blood Culture Result 2 - Preliminary Blood NO GROWTH AT 36-48 HOURS. FINAL TO FOLLOW. 07/06/24 13:46 Blood Culture Result 1 - Preliminary Blood NO GROWTH AT 36-48 HOURS. FINAL TO FOLLOW. 07/06/24 13:52 Urine Culture - Preliminary Urine,Clean Catch Pending - Specimen sent to [facility] Discharge Plan Discharge Disposition: Xfer SNF Condition: Fair Discharge Medications: New cefdinir 300 mg capsule 300 mg PO BID 5 Days Qty: 10 0RF Continued Xarelto 15 mg tablet 15 mg PO Q24H allopurinol 300 mg tablet 300 mg PO DAILY furosemide 40 mg tablet 40 mg PO DAILY glipizide 10 mg tablet 10 mg PO BID levothyroxine 200 mcg tablet 200 mcg PO DAILY metformin 500 mg tablet 500 mg PO BIDWM metoprolol succinate 50 mg tablet extended release 24 hr 150 mg PO DAILY Print Language: Mohawk Forms: Portal Instructions Follow Up Appointments: F/u with PCP in one week
--- NOTE | 2024-07-09 13:32 | PC.NURSE ---
Report called to Selena at the [facility]
== END 2024-07-09 13:47 | DRG 690 ==
LOC: ER 16:00 → MS 18:09
PROVIDERS: Admitting Provider Family Medicine; Emergency Provider Emergency Medicine; Visit Provider Internal Medicine
DX: N39.0 Urinary tract infection, site not specified (principal); D68.51 Activated protein C resistance; I13.0 Hypertensive heart and chronic kidney disease with heart failure and stage 1 through stage 4 chronic kidney disease, or unspecified chronic kidney disease; I50.32 Chronic diastolic (congestive) heart failure; I48.0 Paroxysmal atrial fibrillation; E11.22 Type 2 diabetes mellitus with diabetic chronic kidney disease; N18.31 Chronic kidney disease, stage 3a; E03.9 Hypothyroidism, unspecified; M17.0 Bilateral primary osteoarthritis of knee; N28.9 Disorder of kidney and ureter, unspecified; I25.10 Atherosclerotic heart disease of native coronary artery without angina pectoris; E86.0 Dehydration; Z91.81 History of falling; Z79.899 Other long term (current) drug therapy; Z79.84 Long term (current) use of oral hypoglycemic drugs; Z79.890 Hormone replacement therapy; Z79.01 Long term (current) use of anticoagulants; Z91.041 Radiographic dye allergy status; Z95.5 Presence of coronary angioplasty implant and graft; Z85.72 Personal history of non-Hodgkin lymphomas; R79.89 Other specified abnormal findings of blood chemistry; Z86.711 Personal history of pulmonary embolism
CPT/HCPCS: 36415; 71045; 73562; 80048; 80076; 81001; 82948; 83605; 83735; 83880; 84436; 84443; 84484; 85025; 87040; 87086; 93005; 93306; 94667; 94668; 94761; 97110; 97161; 97165; 97530; 99285; J0696; J3475

== ENCOUNTER 2024-09-15 07:30 | Outpatient (OUT) | payer MEDICARE, OTHER, SELFPAY ==
--- OUTSIDE RECORDS SUMMARY | 2024-07-06 17:21 | XMS_ITS ---
Author Organization [facility] in [place] Address [address] [place] [address] Care Team Providers Care Bulldozer Operator Name Role Phone Marion RAMIREZ, [facility] Primary Care Provider Asad Ingram [phone] REASON FOR VISIT not [facility] patient Encounters Encounter Location Date Provider Diagnosis [facility] Medicine [address] [place] [address] 07/06/2024 Asad White Plan Of Treatment No Information Progress Notes * Noy ESPINOZA ADOB:1935 (88 yo F)Acc No.[id number]:07/06/2024 Patient: Sharron Noy JONES :1935 A ge:88 Y S ex:Female Address:[facility] [place] [address] * true * Date: Generated for Carmenzai gualberto/Ayahg/eTransmitting on: 0 09/15/2024 07:37 AM EDT
--- OUTSIDE RECORDS SUMMARY | 2024-09-15 07:36 | XMS_ITS | CCD ---
Author Organization [facility] Care Team Providers Care Lubrication Servicer Name Role Phone Darrian Benton Unavailable Unavailable GLORIA SARMED Admitting Unavailable GLORIA SARMED Attending Unavailable ROMARIO BAKER Primary Care Unavailable ER, JOVANNI Referring Unavailable [place] Procedure Practitioner Unavailab le UNKNOWN, PROVIDER Surgeon [...] ilable Jacinto, Dr. Joseluis Warren Attending Unava paula Casey, Dr. Joseluis Warren Referring Unava paula Casey, Dr. Joseluis Warren Attending Cesiava paula Schultz, Dr. Good Referring Unavailable Jacinto, Dr. Joseluis Warren Attending Cesiava DO Ren Castelan Admit Provider DO Nelson Orourke Attending Provider [phone] YOAN Meza-C Emilie Wells Primary Care [facility] er Fabricio Edouard MD Primary Care Provider Derrick ASSISTANT ACTIVITIES DIRECTOR, Emilie Unavailable JOSELUIS CASEY Attending Unavailable SHAIKH SCHULTZ [facility] Unavailable Derrick ASSISTANT ACTIVITIES DIRECTOR, Emilie Unavailable [phone] Kevin ASSISTANT ACTIVITIES DIRECTOR, Ирина Unavailable Alfonso Kendrick Admitting Unavailable Alfonso Kendrick Attending Unavailable Emilie Meza Primary Care Unavaila Ren Kiser Admitting Unavailable Nelson Orourke Attending Unavailable Emilie Meza [facility] Unavaila radha Meza ASSISTANT ACTIVITIES DIRECTOR-C, Emilie Wells Primary [facility] er Alfonso Kendrick DO Attending Provider ИРИНА BROWN Attending Unavailable ИРИНА BROWN Attending Unavailable EMILIE MEZA Attending Unavaildorothea e EMILIE MEZA Attending Unavailabl e EMILIE MEZA Attending Unavailabl e Allergies Allergy Classification Reported Allergen(s) Allergy Type Date of Onset Reaction(s) Facility (2 sources) Albuterol Drug Allergy 9 [facility] Repository (19 sources) Albuterol Drug Allergy 6 [facility] (19 sources) atorvastatin Drug Allergy 6 Diarrhea [facility] (19 sources) Clarithromycin Allergy to substance 6 [facility] (19 sources) ezetimibe Drug Allergy 6 [facility] (1 source) Hmg-Coa Reductase Inhibitors (Statins); 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: [[id number] REDUCTASE INHIBITORS] Propensity to adverse reactions to drug (disorder) 4 Hospitals 3 Repository (8 sources) Angiotensin-conver ting enzyme inhibitor agent Drug Intolerance 4 Other [facility] Healthcare Work Phone: (8 sources) Other Propensity to adverse reactions 4 Other [facility] Healthcare (1 source) Albuterol Drug Allergy 3 [facility] Repository Medications Current Medications Medication Drug Class(es) [...] 02/28/2024 Active Start: 04-13-2019 End: 06-22-2022 take 1 tablet by mouth twice daily Allopurinol 100 mg Tablet Discontinued 100 MG PO Twice daily April 13, 2019 1:00am June 22, 2022 3:38am atorvastatin 40 mg oral tablet (6 sources) HMG-CoA Reductase Inhibitor Start: 06-23-2022 take 1 tablet by mouth once daily in the evening Atorvastatin 40 mg Tablet Active 40 MG PO Every evening June 23, 2022 12:00am furosemide 40 mg oral tablet (20 sources) Loop Diuretic Start: 04-13-2019 End: 02-28-2024 take 1 tablet by mouth once daily furosemide (Lasix) 40 MG tablet Indications: 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/HCC) Take 1 tablet (40 mg) by mouth Daily 90 tablet 1 02/28/2024 Active glipiZIDE 10 mg oral tablet (20 sources) Sulfonylurea Start: 06-22-2022 End: 08-26-2024 take 1 tablet by mouth in the morning glipiZIDE (Glucotrol) 10 MG tablet Indications: Type 2 diabetes mellitus without complications Take 1 tablet (10 mg) by mouth in the morning and 1 tablet (10 mg) before bedtime. 180 tablet 1 02/28/2024 Active Start: 04-13-2019 End: 06-22-2022 take 1 tablet by mouth twice daily Glipizide 5 mg Tablet Extended Release 24hr Discontinued 5 MG PO Twice daily April 13, 2019 1:00am June 22, 2022 3:38am take 1 tablet by raymond twice daily glipiZIDE ER 10 MG Oral Tablet Extended Release 24 Hour Take 1 tablet twice daily Quantity: 180 Refills: 1 Ordered: 01-Jul-2022 DO Active levothyroxine sodium 0.2 mg oral tablet (20 sources) l-Thyroxine Start: 04-13-2019 End: 08-26-2024 take 1 tablet by mouth once daily levothyroxine (Synthroid, Levoxyl) 200 MCG tablet Indications: Hypothyroidism, unspecified Take 1 tablet (200 mcg) by mouth Daily 90 tablet 1 02/28/2024 Active take 1 capsule by mo [facility] once daily in the morning Levothyroxine Sodium 200 MCG Oral Capsul e TAKE 1 CAPSULE DAILY IN THE MORNING Quantity: 0 Refills: 0 Ordered: 01-Jul-2022 DO Active losartan potassium 100 mg oral tablet (6 sources) Angiotensin 2 Receptor Jazmine Start: 06-22-2022 take 1 tablet by mouth once daily Losartan 100 mg tablet Active 100 MG PO Daily June 22, 2022 12:00am metFORMIN hydrochloride 500 mg oral tablet (20 sources) Biguanide Start: 04-13-2019 End: 04-05-2024 take 1 tablet by mouth in the morning metFORMIN (Glucophage) 500 MG tablet Indications: Type 2 diabetes mellitus without complications Take 1 tablet (500 mg) by mouth in the morning and 1 tablet (500 mg) before bedtime. 180 tablet 1 04/05/2024 Active 24 hr metoprolol succinate 50 mg extended release oral tablet (20 sources) beta-Adrenergic Jazmine Start: 06-23-2022 take 3 tablets by mouth once daily metoprolol succinate XL (Toprol-XL) 50 MG 24 hr tablet TAKE 3 TABLETS BY MOUTH ONCE DAILY DO NOT CRUSH OR CHEW 05/08/2024 Active Start: 06-23-2022 take 150 mg by mouth once kt y Metoprolol Succinate Active 150 MG PO Daily 90 30 June 23, 2022 12:00am Start: 06-22-2022 End: 06-23-2022 take 1 tablet by mouth once daily Metoprolol Succinate 100 mg tablet extended release 24 hr Discontinued 100 MG PO Daily June 22, 2022 12:00am June 23, 2022 12:19pm Start: 04-13-2019 End: 06-22-2022 take 1 capsule by mouth once daily Metoprolol Succinate 50 mg Capsule,Sprinkle,Er 24hr Discontinued 50 MG PO Daily April 13, 2019 [...] sources) Factor Xa Inhibitor Start: 06-23-2022 End: 10-08-2024 take 1 tablet by mouth at mealtime rivaroxaban (Xarelto) 15 MG tablet Indications: Unspecified atrial fibrillation (CMS/HCC) Take 1 tablet (15 mg) by mouth in the evening. Take with meals 90 tablet 1 07/10/2024 10/08/2024 Active Start: 06-22-2022 End: 06-23-2022 take 1 [...] Sig (Original) clopidogrel 75 mg oral tablet (4 sources) P2Y12 Platelet Inhibitor Start: 04-13-2019 End: 06-22-2022 take 1 tablet by mouth once daily Clopidogrel 75 mg Tablet Discontinued 75 MG PO Daily April 13, 2019 1:00am June 22, 2022 3:38am digoxin 0.125 mg oral tablet (4 sources) Cardiac Glycoside Start: 04-13-2019 End: 04-17-2019 take 1 tablet by mouth once daily Digoxin 125 mcg (0.125 mg) Tablet Discontinued 125 MCG PO Daily April 13, 2019 1:00am April 17, 2019 3:13pm probenecid 500 mg oral tablet (4 sources) Start: 04-13-2019 End: 06-22-2022 take 1 tablet by mouth once daily Probenecid 500 mg Tablet Discontinued 500 MG PO Daily April 13, 2019 1:00am June 22, 2022 3:38am ramipril 10 mg oral capsule (4 sources) Angiotensin Converting Enzyme Inhibitor Start: 04-13-2019 End: 06-22-2022 take 1 capsule by mouth once daily Ramipril 10 mg Capsule Discontinued 10 MG PO Daily April 13, 2019 1:00am June 22, 2022 3:38am warfarin sodium 5 mg oral tablet (4 sources) Vitamin K Antagonist Start: 04-13-2019 End: 06-22-2022 Warfarin 5 mg Tablet Discontinued 0 .ROUTE .COMPLEX April 13, 2019 1:00am June 22, 2022 3:38[address] Dr. Baker in [place] instructions 5mg everyday besides Wednesday and Wednesday which then she takes 7.5mg Problems Active Problems Problem Classification Problem Date Documented Da te Episodic/Chronic Acute and unspecified renal failure (4 sources) Injury of kidney; 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: [Acute kidney failure, unspecified] 06-23-2022 Episodic Comment on above: Problem List clean-u p per request of Phys. EHR Cmte Acute myocardial infarction (9 sources) Non-ST elevation (NSTEMI) myocardial infarction; 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: [Myocardial infarction] Onset: 06-23-2022 12-25-2023 Chronic Aortic; peripheral; and visceral artery aneurysms (4 sources) Ascending aorta dilatation; 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: [Thoracic aortic ectasia] 04-20-2019 Chronic Comment on above: Problem List clean-u p per request of Phys. EHR Cmte Cardiac dysrhythmias (20 sources) Atrial fibrillation; 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: [Unspecified atrial fibrillation] Onset: 10-29-2011 06-22-2022 Chronic Comment on above: Problem List clean-u p per request of Phys. EHR Cmte Cataract (20 sources) Bilateral age-related nuclear cataracts; 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: [Age-related nuclear cataract, bilateral] Onset: 09-23-2022 09-23-2022 Chronic Chronic kidney disease (20 sources) Chronic kidney disease stage 3; 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: [Stage 3 chronic kidney disease] Onset: 04-12-2023 Resolved: 05-25-2024 04-20-2019 Chronic Comment on above: Problem List clean-u p [facility] Phys. [facility] Coagulation and hemorrhagic disorders (20 sources) Factor V Leiden mutation; 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: [Activated protein C resistance] Onset: 04-12-2023 04-20-2019 Chronic Comment on above: Problem List clean-u p per request of Phys. [facility] Congestive heart failure; nonhypertensive (20 sources) Symptomatic congestive heart failure; 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: [Congestive heart failure, unspecified] Onset: 07-23-2022 Resolved: 05-25-2024 05-25-2024 Chronic Coronary atherosclerosis and other heart disease (20 sources) Coronary arteriosclerosis; 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: [Atherosclerotic heart disease of [place] coronary artery without angina pectoris] Onset: 12-15-2010 Resolved: 05-25-2024 04-13-2019 Chronic Comment on above: Problem List clean-u p per request of Phys. EHR [facility] Coronary atherosclerosis and other heart disease (7 sources) Presence of coronary angioplasty implant and graft; 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: [Percutaneous transluminal coronary angioplasty status] Onset: 06-23-2022 06-23-2022 Episodic Deficiency and other anemia (4 sources) Anemia; 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: [Anemia, unspecified] 04-15-2019 Episodic Comment on above: Problem List clean-u p per request of Phys. EHR [facility] Deficiency and other anemia (4 sources) Iron deficiency anemia; 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: [Iron deficiency anemia, unspecified] 04-20-2019 Episodic Comment on above: Problem List clean-u p per request of Phys. [facility] Diabetes mellitus with complications (20 sources) Type 2 diabetes mellitus with diabetic polyneuropathy; 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: [Type 2 diabetes mellitus with diabetic chronic kidney disease] Onset: 07-03-2021 Chronic Diabetes mellitus without complication (16 sources) Diabetes mellitus; 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: [Type 2 diabetes mellitus without complications] Onset: 12-29-2021 04-20-2019 Chronic Comment on above: Problem List clean-u p per request of Phys. [facility] Disorders of lipid metabolism (20 sources) Pure hypercholesterolemia , unspecified; 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: [Hyperlipidemia, unspecified] Onset: 12-15-2010 04-12-2023 Chronic Esophageal disorders (4 sources) Esophagitis; 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: [Esophagitis determined by endoscopy] 04-20-2019 Episodic Comment on above: Problem List clean-u p per request of Phys. EHR Cmte Essential hypertension (20 sources) Hypertensive disorder; 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: [Essential (primary) hypertension] Onset: 12-15-2010 04-20-2019 Chronic Comment on above: Problem List clean-u p per request of Phys. EHR Cmte Genitourinary symptoms and ill-defined conditions (1 source) Personal history of urinary (tract) infections; 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: [PERS HX URINARY TRACT INFECTIONS] Onset: 06-23-2022 Episodic Gout and other crystal arthropathies (20 sources) Gout; 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: [Gout, unspecified] Onset: 12-15-2010 04-20-2019 Chronic Comment on above: Problem List clean-u p per request of Phys. EHR Cmte Hypertension with complications and secondary hypertension (1 source) Hypertensive heart disease with heart failure; 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: [HTN HEART DISEASE W/HEART FAIL] Onset: 06-23-2022 Chronic Immunity disorders (10 sources) Secondary immune deficiency disorder; 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: [Immunodeficiency [...] [WEAKNESS] Onset: 06-21-2022 Episodic Nonspecific chest pain (4 sources) Chest pain; 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: [Chest pain, unspecified] 04-13-2019 Episodic Comment on above: Problem List clean-u p per request of Phys. EHR Cmte Osteoarthritis (19 sources) Degenerative joint disease involving multiple joints; 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: [Polyosteoarthritis, unspecified] Onset: 12-15-2010 04-12-2023 Chronic Other aftercare (4 sources) Long-term current use of anticoagulant; 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: [senior living (current) use of anticoagulants] 04-20-2019 Episodic Comment on above: Problem List clean-u p per request of Phys. 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 EHR Cmte Other hematologic conditions (2 sources) Other specified abnormalities of plasma proteins; 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: [Other abnormal blood chemistry] 06-23-2022 Episodic Other lower respiratory disease (4 sources) Dyspnea; 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: [Dyspnea, unspecified] 04-13-2019 Episodic Comment on above: Problem List clean-u p per request of Phys. EHR Cmte Other lower respiratory disease (4 sources) Multiple nodules of lung; 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: [Other nonspecific abnormal finding of lung field] 04-20-2019 Episodic Comment on above: Problem List clean-u p per request of Phys. EHR Cmte Other lower respiratory disease (2 sources) Dyspnea, [...] Chronic Other nutritional; endocrine; and metabolic disorders (12 sources) Obesity caused by energy imbalance; 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: [Morbid (severe) obesity due to excess calories] Onset: 12-15-2010 05-25-2024 Chronic Other nutritional; endocrine; and metabolic disorders (10 sources) Body mass index 40+ - severely obese; 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: [Body mass index (BMI) 40.0-44.9, adult] Onset: 05-25-2024 05-25-2024 Chronic Other nutritional; endocrine; and metabolic disorders (4 sources) Hypomagnesemia; 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: [Hypomagnesemia] Onset: 08-29-2024 08-29-2024 Chronic Other nutritional; endocrine; and metabolic disorders (3 sources) Hyperuricemia without signs of inflammatory arthritis and tophaceous disease; 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: [Hyperuricemia without signs of inflammatory arthritis and tophaceous disease] 02-28-2024 Episodic Other screening for suspected conditions (not mental disorders or infectious disease) (8 sources) Deviation of international normalized ratio from target range; 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: [Abnormal coagulation profile] 04-13-2019 Episodic Comment on above: Problem List clean-u p per request of Phys. EHR Cmte Residual codes; unclassified (4 sources) H/O cardiac surgery; 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: [Other specified postprocedural states] 06-22-2022 Episodic Comment on above: [id number] List clean -up per request of Phys. EHR Cmte Residual codes; unclassified (2 sources) Other specified postprocedural states; 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: [Other postprocedural status] 06-23-2022 Episodic Thyroid disorders (20 sources) Hypothyroidism; 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: [Hypothyroidism, unspecified] Onset: 12-15-2010 04-20-2019 Chronic Comment on above: Problem List clean-u p per request of Phys. EHR Cmte Unclassified (1 source) CHRN KIDNEY DISEASE STG 3 UNSP; 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: [CHRN KIDNEY DISEASE STG 3 UNSP] Onset: 10-01-2021 Past or Other Problems Problem Classification Problem Date Documented Da te Episodic/Chronic Esophageal disorders (19 sources) Gastroesophageal reflux disease; 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: [Gastro-esophageal reflux disease without esophagitis] Onset: 2 Resolved: 5 04-12-2023 Chronic Mood disorders (19 sources) Mood disorders Onset: 4 Resolved: 5 04-12-2023 Other nutritional; endocrine; and metabolic disorders (1 source) Hyperuricemia without signs of inflammatory arthritis and tophaceous disease; 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: [HU W/O SIGNS IA AND TOPHACEOUS DZ] Onset: 2 Episodic Phlebitis; thrombophlebitis and thromboembolism (20 sources) Personal history of other venous thrombosis and embolism; 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: [H/O: Deep vein thrombosis] Onset: 2 04-12-2023 Episodic Pulmonary heart disease (20 sources) History of arterial thrombosis; 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: [Personal history of pulmonary embolism] Onset: 2 04-20-2019 Episodic Comment on above: Problem List clean-u p per request of Phys. EHR Cmte Residual codes; unclassified (12 sources) Other specified health status; 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: [Other drug allergy] Onset: 4 Episodic Unclassified (2 sources) Never smoked tobacco; 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: [Never a smoker] Unclassified (2 sources) Onset: 5 08-29-2024 Results Test Name Value Interpretation Reference Range Facility HbA1c (Bld) [Mass fraction]o n 08-29-2024 Interpretation and review of laboratory results Abnormal [facility] - Hematology and Cell countson 08-29-2024 HbA1c (Bld) [Mass fraction] 6.4 % [facility] Urine Cultureon 07-06-2024 Bacteria identified Cx Nom (U) >100,000 colonies/ml mixed bacterial skin contaminants 2 Days PERFORMED BY: [place] [address] PATHOLOGIST CORPORATE TRAVEL COUNSELOR RIC BASS M.D. Normal [facility] Comment on above: Performed By: #### B MP, HEPATIC, TSH3, MG, CBC #### [address] ALL CBC WITH AUTO DIFFon BASOPHILS ABSOLUTE AUTO 0.1 [facility] Basophils/100 WBC (Bld) 1.1 % 0.2 - 2.0 % [facility] Eosinophils/100 WBC (Bld) 2.9 % 0.9 - 7.0 % [facility] Erythrocyte distribution width (RBC) [Ratio] 13.8 % 11.0 - 15.0 % [facility] Hematocrit (Bld) [Volume fraction] 45.2 % 36.0 - 48.0 % [facility] Hemoglobin (Bld) [Mass/Vol] 14.9 g/dL 12.0 - 16.0 g/dL [facility] IMMATURE GRANULOCYTES ABS AUTO 0.03 [facility] Immature granulocytes/100 WBC (Bld) 0.4 % 0.0 - 0.5 % [facility] LYMPHOCYTES ABSOLUTE AUTO 2.6 [facility] Lymphocytes/100 WBC (Bld) 34.2 % 20.5 - 60.0 % [facility] MCH (RBC) [Entitic mass] 31 pg 26.7 - 34.0 pg [facility] MCHC (RBC) [Mass/Vol] 33 g/dL 29.9 - 35.2 g/dL [facility] MCV (RBC) [Entitic vol] 94.2 fL 81.0 - 99.0 fL [facility] MONOCYTES ABSOLUTE AUTO 0.8 [facility] Monocytes/100 WBC (Bld) 10.3 % 1.7 - 12.0 % [facility] NEUTROPHILS ABSOLUTE AUTO 3.9 [facility] Neutrophils/100 WBC (Bld) 51.1 % 43.0 - 75.0 % [facility] Platelet mean volume (Bld) [Entitic vol] 11.6 fL 9.5 - 13.5 fL [facility] TBH EO # 0.2 [facility] TB PLT [address] [facility] RBC 4.[address] [facility] WBC 7.6 [facility] Capillary blood glucose edin urement by glucometer (mass/volume)Ordered By: Nelson Orourke on 12-28-2023 Glucose [Mass/Vol] 144 mg/dL Normal [facility] Comment on above: Random Glucose Refer ence Range is dependent on time and content of last meal. Glucose of more than 200 mg/dL in a nonstressed, ambulatory subject supports the diagnosis of Diabetes Mellitus. Result Comment: [facility] Glucose Reference Range is dependent on time and content of last meal. Glucose of more than 200 mg/dL in a nonstressed, ambulatory subject supports the diagnosis of Diabetes Mellitus. PERFORMED BY: [place] [address] PATHOLOGIST CORPORATE TRAVEL COUNSELOR CINDY BRADSHAW M.D. Performed By: #### B MP, HEPATIC, TSH3, MG, CBC #### [address] Automated basophil %Ordered By: Ren Mohan on 12-27-2023 Basophils/100 WBC (Bld) 0.8 % Normal . [facility] Comment on above: Performed By: #### B MP, HEPATIC, TSH3, MG, CBC #### [address] Automated basophil countOrde red By: Ren Mohan on 12-27-2023 Basophils (Bld) [#/Vol] 0.1 10*3/uL Normal 0.0-0.2 [facility] Comment on above: Result Comment: PERF ORMED BY: [place] [address] PATHOLOGIST CORPORATE TRAVEL COUNSELOR CINDY BRADSHAW M.D. Performed By: #### B MP, HEPATIC, TSH3, MG, CBC #### [address] Automated blood monocyte cou ntOrdered By: Ren Mohan on 12-27-2023 Monocytes (Bld) [#/Vol] 0.9 10*3/uL High 0.0-0.8 [facility] Comment on above: Performed By: #### B MP, HEPATIC, TSH3, MG, CBC #### [address] Automated eosinophil %Ordere d By: Ren Mohan on 12-27-2023 Eosinophils/100 WBC (Bld) 3.4 % Normal . [facility] Comment on above: Performed By: #### B MP, HEPATIC, TSH3, MG, CBC #### [address] Automated eosinophil countOr dered By: Ren Mohan on 12-27-2023 Eosinophils (Bld) [#/Vol] 0.2 10*3/uL Normal 0.0-0.45 [facility] Comment on above: Performed By: #### B MP, HEPATIC, TSH3, MG, CBC #### [address] Automated monocyte %Ordered By: Ren Mohan on 12-27-2023 Monocytes/100 WBC (Bld) 12.5 % Normal . [facility] Comment on above: Performed By: #### B MP, HEPATIC, TSH3, MG, CBC #### [address] Automated neutrophil %Ordere d By: Ren Mohan on 12-27-2023 Neutrophils/100 WBC (Bld) 48.8 % Normal . [facility] Comment on above: Performed By: #### B MP, HEPATIC, TSH3, MG, CBC #### [address] Basic Metabolic Panelon Creatinine Clr Calc Pharmacy 52.61 Normal [facility] Comment on above: Performed By: #### B MP, HEPATIC, TSH3, MG, CBC #### [address] GFR/1.73 sq M.predicted MDRD (S/P/Bld) [Vol rate/Area] 47.889 mL/min/{1.73_m2} Normal [facility] Comment on above: Performed By: #### B MP, HEPATIC, TSH3, MG, CBC #### [address] Calcium [Mass/volume] in Ser um or PlasmaOrdered By: Ren Mohan on 12-27-2023 Calcium [Mass/Vol] 8.6 mg/dL Normal 8.6-10.3 [facility] Comment on above: Performed By: #### B MP, HEPATIC, TSH3, MG, CBC #### [address] Carbon dioxide, total [Moles /volume] in Serum or PlasmaOrdered By: Ren Mohan on 12-27-2023 CO2 [Moles/Vol] 24.9 mmol/L Normal 21.0-31.0 [facility] Comment on above: Performed By: #### B MP, HEPATIC, TSH3, MG, CBC #### [place] [address] [place] Chloride [Moles/volume] in S octaviano or PlasmaOrdered By: Ren Mohan on 12-27-2023 Chloride [Moles/Vol] 102 mmol/L Normal 98-107 [facility] Comment on above: Performed By: #### B MP, HEPATIC, TSH3, MG, CBC #### [facility] [address] Complete Blood Count Auto Di ffon 12-27-2023 Mean Corpuscular HGB Conc 33.9 g/dL Normal 32.0-35.0 [facility] Comment on above: Performed By: #### B MP, HEPATIC, TSH3, MG, CBC #### [facility] [address] NRBC% 0.0 /100{WBC} Normal 0-0.5 [facility] Comment on above: Performed By: #### B MP, HEPATIC, TSH3, MG, CBC #### [facility] [address] Creatinine [Mass/volume] in Serum or PlasmaOrdered By: Ren Mohan on 12-27-2023 Creatinine [Mass/Vol] 1.12 mg/dL Normal 0.60-1.20 [facility] Comment on above: Performed By: #### B MP, HEPATIC, TSH3, MG, CBC #### [facility] [address] ECH echo transthoracicon ECH echo transthoracic [facility] Main [place] [address] [place] [address] Echocardiogram Signed Patient: Mohan Espinoza MR#: [id number] 8 : 1935 Acct:[id number] Age/Sex: 88 / F ADM Date: 12/25/23 Loc: Room: [address] [place] [address] Type: ADM IN Attending Dr: Nelson Orourke [...] DM. Factor V Leiden. IVC Filter. HTN. [place]. Cancer. Chemotherapy. PE. CABG. PCI. Former Smoke [...] By: Jane Carrillo MD 12/27/231957 Normal [facility] Erythrocyte distribution wid th [Ratio] by Automated countOrdered By: Ren Mohan on 12-27-2023 Erythrocyte distribution width (RBC) [Ratio] 14.4 % Normal 11.9-15.3 [facility] Comment on above: Performed By: #### B MP, HEPATIC, TSH3, MG, CBC #### [facility] [address] [place] [address] Erythrocytes [#/volume] in B lood by Automated countOrdered By: Ren Mohan on 12-27-2023 RBC (Bld) [#/Vol] 4.26 10*6/uL Normal 3.60-5.00 [facility] Comment on above: Performed By: #### B MP, HEPATIC, TSH3, MG, CBC #### [facility] [address] [place] [address] Glucose Poct Glucometerson 1 Glucose [Mass/Vol] 220 mg/dL Normal [facility] Comment on above: Result Comment: [facility] Glucose Reference Range is dependent on time and content of last meal. Glucose of more than 200 mg/dL in a nonstressed, ambulatory subject supports the diagnosis of Diabetes Mellitus. PERFORMED BY: [place] [address] PATHOLOGIST [employer] COUNSELOR CINDY BRADSHAW M.D. Performed By: #### B MP, HEPATIC, TSH3, MG, CBC #### [facility] [address] [place] [address] [place] Glucose [Mass/Vol] 242 mg/dL Normal [facility] Comment on above: Result Comment: [place] [facility] Glucose Reference Range is dependent on time and content of last meal. Glucose of more than 200 mg/dL in a nonstressed, ambulatory subject supports the diagnosis of Diabetes Mellitus. PERFORMED BY: [place] [address] PATHOLOGIST [employer] TRAV[employer] COUNSEL[employer] CINDY BRADSHAW M.D. Performed By: #### B MP, HEPATIC, TSH3, MG, CBC #### [place] [address] [place] Glucose [Mass/Vol] 272 mg/dL Normal [facility] Comment on above: Result Comment: [place] [facility] Glucose Reference Range is dependent on time and content of last meal. Glucose of more than 200 mg/dL in a nonstressed, ambulatory subject supports the diagnosis of Diabetes Mellitus. PERFORMED BY: [place] [address] PATHOLOGIST [employer] COUNSEL[employer] CINDY BRADSHAW M.D. Performed By: #### B MP, HEPATIC, TSH3, MG, CBC #### [address] [address] [place] Glucose [Mass/Vol] 182 mg/dL Normal [facility] Comment on above: Result Comment: [place] [facility] Glucose Reference Range is dependent on time and content of last meal. Glucose of more than 200 mg/dL in a nonstressed, ambulatory subject supports the diagnosis of Diabetes Mellitus. PERFORMED BY: [place] [address] PATHOLOGIST [employer] TRAV[employer] COUNSELOR CINDY BRADSHAW M.D. Performed By: #### B MP, HEPATIC, TSH3, MG, CBC #### [address] [address] [place] Glucose [Mass/volume] in Ser um or PlasmaOrdered By: Ren Mohan on 12-27-2023 Glucose [Mass/Vol] 172 mg/dL High 70-100 [facility] Comment on above: ADA recommended refe rence rangeRandom Glucose Reference Range is dependent on time and content of last meal. Glucose of more than 200 mg/dL in a nonstressed, ambulatory subject supports the diagnosis of Diabetes Mellitus. Result Comment: [place] [facility] Glucose Reference Range is dependent on time and content of last meal. Glucose of more than 200 mg/dL in a nonstressed, ambulatory subject supports the diagnosis of Diabetes Mellitus. ADA recommended reference range Performed By: #### B MP, HEPATIC, TSH3, MG, CBC #### [address] Hematocrit [Volume Fraction] of Blood by Automated countOrdered By: Ren Mohan on 12-27-2023 Hematocrit (Bld) [Volume fraction] 39.7 % Normal 34.0-46.4 [facility] Comment on above: Performed By: #### B MP, HEPATIC, TSH3, MG, CBC #### [address] Hemoglobin [Mass/volume] in BloodOrdered By: Ren Mohan on 12-27-2023 Hemoglobin (Bld) [Mass/Vol] 13.5 g/dL Normal 11.8-15.4 [facility] Comment on above: Performed By: #### B MP, HEPATIC, TSH3, MG, CBC #### [facility] [address] [place] [address] Leukocytes [#/volume] correc ruma for nucleated erythrocytes in Blood by Automated counOrdered By: Ren Mohan on 12-27-2023 WBC corrected for nucl RBC Auto (Bld) [#/Vol] 7.1 10*3/uL 3.8-11.6 [facility] Leukocytes [#/volume] in Blo od by Automated countOrdered By: Ren Mohan on 12-27-2023 WBC (Bld) [#/Vol] 7.1 10*3/uL Normal 3.8-11.6 [facility] Comment on above: Performed By: #### B MP, HEPATIC, TSH3, MG, CBC #### [facility] [address] Lymphocytes [#/volume] in Bl ood by Automated countOrdered By: Ren Mohan on 12-27-2023 Lymphocytes (Bld) [#/Vol] 2.4 10*3/uL Normal 1.00-4.8 [facility] Comment on above: Performed By: #### B MP, HEPATIC, TSH3, MG, CBC #### [facility] [address] Lymphocytes/100 leukocytes i n Blood by Automated countOrdered By: Ren Mohan on 12-27-2023 Lymphocytes/100 WBC (Bld) 34.5 % Normal . [facility] Comment on above: Performed By: #### B MP, HEPATIC, TSH3, MG, CBC #### [address] MCH [Entitic mass] by Automa ruma countOrdered By: Ren Mohan on 12-27-2023 MCH (RBC) [Entitic mass] 31.6 pg Normal 24.7-34.3 [facility] Comment on above: Performed By: #### B MP, HEPATIC, TSH3, MG, CBC #### [address] MCHC Auto (RBC) [Mass/Vol]Or dered By: Ren Mohan on 12-27-2023 MCHC (RBC) [Mass/Vol] 33.9 g/dL 32.0-35.0 [facility] MCV [Entitic volume] by Auto mated countOrdered By: Ren Mohan on 12-27-2023 MCV (RBC) [Entitic vol] 93.2 fL Normal 80-100 [facility] Comment on above: Performed By: #### B MP, HEPATIC, TSH3, MG, CBC #### [address] Magnesium [Mass/volume] in S octaviano or PlasmaOrdered By: Ren Mohan on 12-27-2023 Magnesium [Mass/Vol] 1.9 mg/dL Normal 1.9-2.7 [facility] Comment on above: Result Comment: PERF ORMED BY: [place] [address] PATHOLOGIST [employer]ATE TRAVEL COUNSELOR CINDY BRADSHAW M.D. Performed By: #### B MP, HEPATIC, TSH3, MG, CBC #### [facility] [address] [place] [address] Neutrophils [#/volume] in Bl ood by Automated countOrdered By: Ren Mohan on 12-27-2023 Neutrophils (Bld) [#/Vol] 3.5 10*3/uL Normal 1.8-7.7 [facility] Comment on above: Performed By: #### B MP, HEPATIC, TSH3, MG, CBC #### [address] No Panel InformationOrdered By: Ren Mohan on 12-27-2023 Estimated GFR (CKD-EPI) 47.889 mL/Min [facility] Creatinine Clearance (Chem 52.61 [facility] Nucleated erythrocytes [Pres ence] in Blood by Automated countOrdered By: Ren Mohan on 12-27-2023 Nucleated RBC Auto Ql (Bld) 0.0 /100{WBC} 0-0.5 [facility] Platelet mean volume [Entiti c volume] in Blood by Automated countOrdered By: Ren Mohan on 12-27-2023 Platelet mean volume (Bld) [Entitic vol] 9.9 fL Normal 6.3-10.7 [facility] Comment on above: Performed By: #### B MP, HEPATIC, TSH3, MG, CBC #### [facility] [address] [place] [address] [place] Platelets [#/volume] in Bloo d by Automated countOrdered By: Ren Mohan on 12-27-2023 Platelets (Bld) [#/Vol] 175 10*3/uL Normal 150-450 [facility] Comment on above: Performed By: #### B MP, HEPATIC, TSH3, MG, CBC #### [facility] [address] [place] [address] [place] Potassium [Moles/volume] in Serum or PlasmaOrdered By: Ren Mohan on 12-27-2023 Potassium [Moles/Vol] 3.6 mmol/L Normal 3.5-5.1 [facility] Comment on above: Performed By: #### B MP, HEPATIC, TSH3, MG, CBC #### [facility] [address] Serum or plasma anion gap de terminationOrdered By: Ren Mohan on 12-27-2023 Anion gap [Moles/Vol] 11.7 mmol/L Normal 6.0-15.0 [facility] Comment on above: Performed By: #### B MP, HEPATIC, TSH3, MG, CBC #### [address] Sodium [Moles/volume] in Ser um or PlasmaOrdered By: Ren Mohan on 12-27-2023 Sodium [Moles/Vol] 135 mmol/L Low 136-145 [facility] Comment on above: Performed By: #### B MP, HEPATIC, TSH3, MG, CBC #### [address] US venous duplex LE BIon US venous duplex LE BI [facility] Main [place] [address] [place] [address] Ultrasound Report Signed Patient: Mohan Espinoza MR#: [id number] 8 : 1935 Acct:[id number] Age/Sex: 88 / F ADM Date: 12/25/23 Loc: Room: [address] [place] [address] Type: ADM IN Attending Dr: Nelson Orourke [...] Jaxson Cooney MD12/27/2023 2:30 PM Dictation Location: [facility] Tech: Selena Shearosa Transcribed By: SANA 12/27/23 143 Dictated By: Jaxson Cooney MD 12/27/23 143 Signed By: 12/27/23 143 Normal [facility] Urea nitrogen [Mass/volume] in Serum or PlasmaOrdered By: Ren Mohan on 12-27-2023 Urea nitrogen [Mass/Vol] 38 mg/dL High 7-25 [facility] Comment on above: Performed By: #### B MP, HEPATIC, TSH3, MG, CBC #### [facility] [address] [place] [address] [place] Alanine aminotransferase [En zymatic activity/volume] in Serum or PlasmaOrdered By: Apryl Shirley on 12-26-2023 ALT [Catalytic activity/Vol] 11 U/L Normal 7-52 [facility] Comment on above: Performed By: #### B MP, HEPATIC, TSH3, MG, CBC #### [facility] [address] [place] [address] [place] Albumin [Mass/volume] in Ser um or Plasma by Bromocresol green (BCG) dye binding methoOrdered By: Apryl Shirley on 12-26-2023 Albumin BCG dye [Mass/Vol] 3.3 g/dL Low 3.5-5.7 [facility] Alkaline phosphatase [Enzyma tic activity/volume] in Serum or PlasmaOrdered By: Apryl Shirley on 12-26-2023 ALP [Catalytic activity/Vol] 77 U/L Normal 34-104 [facility] Comment on above: Performed By: #### B MP, HEPATIC, TSH3, MG, CBC #### [address] Aspartate aminotransferase [ Enzymatic activity/volume] in Serum or PlasmaOrdered By: Apryl Shirley on 12-26-2023 AST [Catalytic activity/Vol] 17 U/L Normal 13-39 [facility] Comment on above: Performed By: #### B MP, HEPATIC, TSH3, MG, CBC #### [address] Basic Metabolic Panelon 10-0 Anion gap [Moles/Vol] 12.7 mmol/L Normal 6.0-15.0 [facility] Comment on above: Performed By: #### B MP, HEPATIC, TSH3, MG, CBC #### [address] Calcium [Mass/Vol] 8.7 mg/dL Normal 8.6-10.3 [facility] Comment on above: Performed By: #### B MP, HEPATIC, TSH3, MG, CBC #### [address] Chloride [Moles/Vol] 100 mmol/L Normal 98-107 [facility] Comment on above: Performed By: #### B MP, HEPATIC, TSH3, MG, CBC #### [address] CO2 [Moles/Vol] 26.1 mmol/L Normal 21.0-31.0 [facility] Comment on above: Performed By: #### B MP, HEPATIC, TSH3, MG, CBC #### [address] Creatinine [Mass/Vol] 1.37 mg/dL High 0.60-1.20 [facility] Comment on above: Performed By: #### B MP, HEPATIC, TSH3, MG, CBC #### [address] Creatinine Clr Calc Pharmacy 42.97 Normal [facility] Comment on above: Performed By: #### B MP, HEPATIC, TSH3, MG, CBC #### [facility] [address] [place] [address] [place] GFR/1.73 sq M.predicted MDRD (S/P/Bld) [Vol rate/Area] 37.604 mL/min/{1.73_m2} Normal [facility] Comment on above: Performed By: #### B MP, HEPATIC, TSH3, MG, CBC #### [facility] [address] Glucose [Mass/Vol] 180 mg/dL High 70-100 [facility] Comment on above: Result Comment: [facility] Glucose Reference Range is dependent on time and content of last meal. Glucose of more than 200 mg/dL in a nonstressed, ambulatory subject supports the diagnosis of Diabetes Mellitus. ADA recommended reference range Performed By: #### B MP, HEPATIC, TSH3, MG, CBC #### [facility] [address] Potassium [Moles/Vol] 3.8 mmol/L Normal 3.5-5.1 [facility] Comment on above: Performed By: #### B MP, HEPATIC, TSH3, MG, CBC #### [facility] [address] [place] [address] [place] Sodium [Moles/Vol] 135 mmol/L Low 136-145 [facility] Comment on above: Performed By: #### B MP, HEPATIC, TSH3, MG, CBC #### [facility] [address] [place] [address] [place] Urea nitrogen [Mass/Vol] 44 mg/dL High 7-25 [facility] Comment on above: Performed By: #### B MP, HEPATIC, TSH3, MG, CBC #### [facility] [address] [place] [address] [place] Bilirubin.direct [Mass/volum e] in Serum or PlasmaOrdered By: Apryl Shirley on 12-26-2023 Bilirubin.direct [Mass/Vol] 0.10 mg/dL 0.03-0.18 [facility] Bilirubin.total [Mass/volume ] in Serum or PlasmaOrdered By: Apryl Shirley on 12-26-2023 Bilirubin [Mass/Vol] 0.5 mg/dL Normal 0.3-1.0 [facility] Comment on above: Performed By: #### B MP, HEPATIC, TSH3, MG, CBC #### [address] Complete Blood Count Auto Di ffon 12-26-2023 Basophils (Bld) [#/Vol] 0.0 10*3/uL Normal 0.0-0.2 [facility] Comment on above: Result Comment: PERF ORMED BY: [place] [address] PATHOLOGIST [employer] COUNSEL[employer] CINDY BRADSHAW M.D. Performed By: #### B MP, HEPATIC, TSH3, MG, CBC #### [address] Basophils/100 WBC (Bld) 0.6 % Normal . [facility] Comment on above: Performed By: #### B MP, HEPATIC, TSH3, MG, CBC #### [address] Eosinophils (Bld) [#/Vol] 0.2 10*3/uL Normal 0.0-0.45 [facility] Comment on above: Performed By: #### B MP, HEPATIC, TSH3, MG, CBC #### [address] Eosinophils/100 WBC (Bld) 2.2 % Normal . [facility] Comment on above: Performed By: #### B MP, HEPATIC, TSH3, MG, CBC #### [address] Erythrocyte distribution width (RBC) [Ratio] 14.8 % Normal 11.9-15.3 [facility] Comment on above: Performed By: #### B MP, HEPATIC, TSH3, MG, CBC #### [address] Hematocrit (Bld) [Volume fraction] 42.0 % Normal 34.0-46.4 [facility] Comment on above: Performed By: #### B MP, HEPATIC, TSH3, MG, CBC #### [address] Hemoglobin (Bld) [Mass/Vol] 14.1 g/dL Normal 11.8-15.4 [facility] Comment on above: Performed By: #### B MP, HEPATIC, TSH3, MG, CBC #### [address] Lymphocytes (Bld) [#/Vol] 2.2 10*3/uL Normal 1.00-4.8 [facility] Comment on above: Performed By: #### B MP, HEPATIC, TSH3, MG, CBC #### [address] Lymphocytes/100 WBC (Bld) 30.0 % Normal . [facility] Comment on above: Performed By: #### B MP, HEPATIC, TSH3, MG, CBC #### [address] MCH (RBC) [Entitic mass] 31.5 pg Normal 24.7-34.3 [facility] Comment on above: Performed By: #### B MP, HEPATIC, TSH3, MG, CBC #### [address] MCV (RBC) [Entitic vol] 93.9 fL Normal 80-100 [facility] Comment on above: Performed By: #### B MP, HEPATIC, TSH3, MG, CBC #### [address] Mean Corpuscular HGB Conc 33.6 g/dL Normal 32.0-35.0 [facility] Comment on above: Performed By: #### B MP, HEPATIC, TSH3, MG, CBC #### [address] Monocytes (Bld) [#/Vol] 0.9 10*3/uL High 0.0-0.8 [facility] Comment on above: Performed By: #### B MP, HEPATIC, TSH3, MG, CBC #### [address] Monocytes/100 WBC (Bld) 12.2 % Normal . [facility] Comment on above: Performed By: #### B MP, HEPATIC, TSH3, MG, CBC #### [address] Neutrophils (Bld) [#/Vol] 4.1 10*3/uL Normal 1.8-7.7 [facility] Comment on above: Performed By: #### B MP, HEPATIC, TSH3, MG, CBC #### [address] Neutrophils/100 WBC (Bld) 55.0 % Normal . [facility] Comment on above: Performed By: #### B MP, HEPATIC, TSH3, MG, CBC #### [address] NRBC% 0.2 /100{WBC} Normal 0-0.5 [facility] Comment on above: Performed By: #### B MP, HEPATIC, TSH3, MG, CBC #### [address] Platelet mean volume (Bld) [Entitic vol] 10.1 fL Normal 6.3-10.7 [facility] Comment on above: Performed By: #### B MP, HEPATIC, TSH3, MG, CBC #### [address] Platelets (Bld) [#/Vol] 168 10*3/uL Normal 150-450 [facility] Comment on above: Performed By: #### B MP, HEPATIC, TSH3, MG, CBC #### [place] [address] [place] RBC (Bld) [#/Vol] 4.47 10*6/uL Normal 3.60-5.00 [facility] Comment on above: Performed By: #### B MP, HEPATIC, TSH3, MG, CBC #### [place] [address] [place] WBC (Bld) [#/Vol] 7.4 10*3/uL Normal 3.8-11.6 [facility] Comment on above: Performed By: #### B MP, HEPATIC, TSH3, MG, CBC #### [place] [id number] [facility] ECG 12 lead ECGon 12-26-2023 ECG 12 lead ECG [facility] Main [place] [address] [place] [address] Electrocardiograph Report Signed Patient: Mohan Espinoza MR#: [id number] 8 : 1935 Acct:[id number] Age/Sex: 88 / F ADM Date: 12/25/23 Loc: Room: [address] [place] [address] Type: ADM IN Attending Dr: Apryl Shirley [...] QT Abnormal ECG Confirmed by Nubia Holley ([id number]) on 12/26/2023 3:04:05 PM Referred By: Electronically Signed By: Nubia Holley Transcribed By: MUS Signed By Nubia Holley MD 4 1504 Normal [facility] Glucose Poct Glucometerson 1 Glucose [Mass/Vol] 287 mg/dL Normal [facility] Comment on above: Result Comment: [place] Glucose Reference Range is dependent on time and content of last meal. Glucose of more than 200 mg/dL in a nonstressed, ambulatory subject supports the diagnosis of Diabetes Mellitus. PERFORMED BY: [place] [address] PATHOLOGIST [employer] COUNSEL[employer] CINDY BRADSHAW M.D. Performed By: #### B MP, HEPATIC, TSH3, MG, CBC #### [address] [address] [place] Glucose [Mass/Vol] 217 mg/dL Normal [facility] Comment on above: Result Comment: [facility] Glucose Reference Range is dependent on time and content of last meal. Glucose of more than 200 mg/dL in a nonstressed, ambulatory subject supports the diagnosis of Diabetes Mellitus. PERFORMED BY: [place] [address] PATHOLOGIST [employer] TRAVEL COUNSELOR CINDY BRADSHAW M.D. Performed By: #### G LULS #### Point of Care testing , Glucose [Mass/Vol] 286 mg/dL Normal [facility] Comment on above: Result Comment: [place] [facility] Glucose Reference Range is dependent on time and content of last meal. Glucose of more than 200 mg/dL in a nonstressed, ambulatory subject supports the diagnosis of Diabetes Mellitus. PERFORMED BY: [place] [address] PATHOLOGIST [employer] TRAVEL COUNSELOR CINDY BRADSHAW M.D. Performed By: #### B MP, HEPATIC, TSH3, MG, CBC #### [address] Glucose [Mass/Vol] 155 mg/dL Normal [facility] Comment on above: Result Comment: [place] [facility] Glucose Reference Range is dependent on time and content of last meal. Glucose of more than 200 mg/dL in a nonstressed, ambulatory subject supports the diagnosis of Diabetes Mellitus. PERFORMED BY: [place] [address] PATHOLOGIST [employer] TRAVEL COUNSELOR CINDY BRADSHAW M.D. Performed By: #### G LULS #### Point of Care testing , Hepatic Panelon 12-26-2023 Albumin [Mass/Vol] 3.3 g/dL Low 3.5-5.7 [facility] Comment on above: Performed By: #### B MP, HEPATIC, TSH3, MG, CBC #### [address] Bilirubin,Indirect 0.4 mg/dL Normal [facility] Comment on above: Performed By: #### B MP, HEPATIC, TSH3, MG, CBC #### [facility] [address] [place] [address] Bilirubin.indirect [Mass/Vol] 0.10 mg/dL Normal 0.03-0.18 [facility] Comment on above: Performed By: #### B MP, HEPATIC, TSH3, MG, CBC #### [address] Magnesiumon 12-26-2023 Magnesium [Mass/Vol] 2.1 mg/dL Normal 1.9-2.7 [facility] Comment on above: Performed By: #### B MP, HEPATIC, TSH3, MG, CBC #### [address] Protein [Mass/volume] in Ser um or PlasmaOrdered By: Apryl Shirley on 12-26-2023 Protein [Mass/Vol] 6.7 g/dL Normal 6.4-8.9 [facility] Comment on above: Performed By: #### B MP, HEPATIC, TSH3, MG, CBC #### [address] Serum globulin measurement b y calculation (mass/volume)Ordered By: Apryl Shirley on 12-26-2023 Globulin (S) [Mass/Vol] 3.4 g/dL [facility] Comment on above: Performed By: #### B MP, HEPATIC, TSH3, MG, CBC #### [address] Serum or plasma albumin/glob ulin mass ratioOrdered By: Apryl Shirley on 12-26-2023 Albumin/Globulin [Mass ratio] 1.0 {ratio} [facility] Comment on above: Performed By: #### B MP, HEPATIC, TSH3, MG, CBC #### [address] Serum or plasma non-glucuron idated bilirubin measurement (mass/volume)Ordered By: Apryl Shirley on 12-26-2023 Bilirubin.indirect [Mass/Vol] 0.4 mg/dL [facility] Thyrotropin [Units/volume] i n Serum or PlasmaOrdered By: Ren Mohan on 12-26-2023 TSH Qn 0.61 m[IU]/L Normal 0.45-5.33 [facility] Comment on above: Result Comment: PERF ORMED BY: [place] [address] PATHOLOGIST [employer] COUNSEL[employer] CINDY BRADSHAW M.D. Performed By: #### B MP, HEPATIC, TSH3, MG, CBC #### [facility] [address] [place], [place] [address] [place] Troponin I High Sensitivityo n 12-26-2023 Troponin I High Sensitivity 73.3 pg/mL Off scale high 0.0-15.0 [facility] Comment on above: Result Comment: Crit ical Result : Called to and read back by: CLAUDIA ARELLANO at: 12/26/2023 07:38:15 by:SPENCER PERFORMED BY: [place] [address] PATHOLOGIST [employer] COUNSELOR CINDY BRADSHAW M.D. Performed By: #### H S TROP #### [facility] [address] [place] [address] Troponin I.cardiac [Mass/vol ume] in Serum or Plasma by Detection limit <= 0.01 ng/Ordered By: Apryl Shirley on 12-26-2023 Troponin I.cardiac DL <= 0.01 ng/mL [Mass/Vol] 73.3 pg/mL High 0.0-15.0 [facility] Comment on above: Critical Result : Ca lled to and read back by: CLAUDIA ARELLANO at: 12/26/2023 07:38:15 by:SPENCER XR chest 1V portableon 12-25 XR chest 1V portable [facility] Main [place] [address] [place] [address] XRay Report Signed Patient: Mohan Espinoza MR#: [id number] 8 : 1935 Acct:[id number] Age/Sex: 88 / F ADM Date: 12/25/23 Loc: Room: [address] [place] [address] Type: ADM IN Attending Dr: Apryl Shirley [...] Dove Jr., D.O.12/26/2023 9:37 AM Dictation Location: [facility]15 Transcribed By: [facility] 12/26/23936 Dictated By: Ck Dove Jr, DO 12/26/23935 Signed By: 12/26/23936 Normal [facility] A1C with Estimated Average G rosalva 12-25-2023 Glucose [Mass/Vol] 177 mg/dL Normal [facility] Comment on above: Result Comment: PERF ORMED BY: [place] [address] PATHOLOGIST [employer] TRAVEL COUNSELOR CINDY BRADSHAW M.D. Performed By: #### B MP, HEPATIC, TSH3, MG, CBC #### [address] Activated partial thrombopla stin time (aPTT) in platelet poor plasma by coagulation aOrdered By: Ren Mohan on 12-25-2023 aPTT Coag (PPP) [Time] 33.2 s 25.1-36.5 [facility] Comment on above: A hematocrit value g reater than 55% may lead to inaccurate results in coagulation testing. Patients having hematocrit values >55% require a special collection tube for coagulation studies. Please contact the laboratory at [phone] for redraw instructions. Basic Metabolic Panelon Anion gap [Moles/Vol] 14.8 mmol/L Normal 6.0-15.0 Th e [facility] Comment on above: Order Comment: FASTI NG N Performed By: #### B MP, HEPATIC, TSH3, MG, CBC #### [facility] [address] Calcium [Mass/Vol] 8.5 mg/dL Low 8.6-10.3 [facility] Comment on above: Order Comment: FASTI NG N Performed By: #### B MP, HEPATIC, TSH3, MG, CBC #### [facility] [address] Chloride [Moles/Vol] 99 mmol/L Normal 98-107 [facility] Comment on above: Order Comment: FASTI NG N Performed By: #### B MP, HEPATIC, TSH3, MG, CBC #### [address] CO2 [Moles/Vol] 25.5 mmol/L Normal 21.0-31.0 [facility] Comment on above: Order Comment: FASTI NG N Performed By: #### B MP, HEPATIC, TSH3, MG, CBC #### [address] Creatinine [Mass/Vol] 1.84 mg/dL High 0.60-1.20 [facility] Comment on above: Order Comment: FASTI NG N Performed By: #### B MP, HEPATIC, TSH3, MG, CBC #### [address] Creatinine Clr Calc Pharmacy 31.63 Normal [facility] Comment on above: Order Comment: FASTI NG N Performed By: #### B MP, HEPATIC, TSH3, MG, CBC #### [place] [address] [place] GFR/1.73 sq M.predicted MDRD (S/P/Bld) [Vol rate/Area] 26.395 mL/min/{1.73_m2} Normal [facility] Comment on above: Order Comment: FASTI NG N Performed By: #### B MP, HEPATIC, TSH3, MG, CBC #### [address] Glucose [Mass/Vol] 258 mg/dL High 70-100 [facility] Comment on above: Order Comment: FASTI NG N Result Comment: Delta Glucose Reference Range is dependent on time and content of last meal. Glucose of more than 200 mg/dL in a nonstressed, ambulatory subject supports the diagnosis of Diabetes Mellitus. ADA recommended reference range Performed By: #### B MP, HEPATIC, TSH3, MG, CBC #### [address] Potassium [Moles/Vol] 4.3 mmol/L Normal 3.5-5.1 [facility] Comment on above: Order Comment: FASTI NG N Performed By: #### B MP, HEPATIC, TSH3, MG, CBC #### [address] Sodium [Moles/Vol] 135 mmol/L Low 136-145 [facility] Comment on above: Order Comment: FASTI NG N Performed By: #### B MP, HEPATIC, TSH3, MG, CBC #### [address] Urea nitrogen [Mass/Vol] 45 mg/dL High 7-25 [facility] Comment on above: Order Comment: FASTI NG N Performed By: #### B MP, HEPATIC, TSH3, MG, CBC #### [address] BioFire Not Detectedon 12-24 BioFire Not Detected Not detected Normal Not Detecte [facility] Comment on above: Result Comment: This is a duplicate RP2.1 COVID (PCR) result to be used for statistical tracking purpose only. PERFORMED BY: [place] [address] PATHOLOGIST [employer]PORATE TRAVEL COUNSELOR CINDY BRADSHAW M.D. Performed By: #### B MP, HEPATIC, TSH3, MG, CBC #### [address] Blood Cultureon 12-25-2023 Bacteria identified Cx Nom (Bld) NO GROWTH 5 DAYS PERFORMED BY: [place] [address] PATHOLOGIST [employer]PORATE TRAVEL COUNSELOR CINDY BRADSHAW M.D. Normal [facility] Comment on above: Performed By: #### B MP, HEPATIC, TSH3, MG, CBC #### [facility] [address] COVID-19 Detected/Not Detect edOrdered By: Ren Mohan on 12-25-2023 SARS-CoV-2 (COVID-19) RNA COLIN+non-probe Ql (Nph) Not detected Not Detecte [facility] Comment on above: This is a duplicate RP2.1 COVID (PCR) result to be used for statistical tracking purpose only. Cholesterol [Mass/volume] in Serum or PlasmaOrdered By: Ren Mohan on 12-25-2023 Cholesterol [Mass/Vol] 166 mg/dL Normal 140-200 [facility] Comment on above: Chol less than 200 m g/dl low riskChol 201-239 mg/dl borderline riskChol 240 mg/dl and greater high risk Order Comment: FASTI NG N Result Comment: Chol less than 200 mg/dl low risk Chol 201-239 mg/dl borderline risk Chol 240 mg/dl and greater high risk Performed By: #### B MP, HEPATIC, TSH3, MG, CBC #### [facility] [address] Cholesterol in LDL Calc [Mas s/Vol]Ordered By: Ren Mohan on 12-25-2023 Cholesterol in LDL [Mass/Vol] 115 mg/dL High 0-100 [facility] Comment on above: LDL ATP III CLASSIFI CATIONLDL less than 100 mg/dL OptimalLDL 100-129 mg/dL Near or above optimalLDL 130-159 mg/dL Borderline highLDL 160-189 mg/dL HighLDL greater than 189 mg/dL Very high Cholesterol in VLDL Calc [Ma ss/Vol]Ordered By: Ren Mohan on 12-25-2023 Cholesterol in VLDL [Mass/Vol] 23 mg/dL [facility] Complete Blood Count Auto Di ffon 12-25-2023 Basophils (Bld) [#/Vol] 0.1 10*3/uL Normal 0.0-0.2 [facility] Comment on above: Result Comment: PERF ORMED BY: [facility] [address] PATHOLOGIST [employer]PORATE TRAVEL COUNSELOR CINDY BRADSHAW M.D. Performed By: #### B MP, HEPATIC, TSH3, MG, CBC #### [address] Basophils/100 WBC (Bld) 0.5 % Normal . [facility] Comment on above: Performed By: #### B MP, HEPATIC, TSH3, MG, CBC #### [address] Eosinophils (Bld) [#/Vol] 0.0 10*3/uL Normal 0.0-0.45 [facility] Comment on above: Performed By: #### B MP, HEPATIC, TSH3, MG, CBC #### [address] Eosinophils/100 WBC (Bld) 0.0 % Normal . [facility] Comment on above: Performed By: #### B MP, HEPATIC, TSH3, MG, CBC #### [address] Erythrocyte distribution width (RBC) [Ratio] 14.7 % Normal 11.9-15.3 [facility] Comment on above: Performed By: #### B MP, HEPATIC, TSH3, MG, CBC #### [address] Hematocrit (Bld) [Volume fraction] 42.8 % Normal 34.0-46.4 [facility] Comment on above: Performed By: #### B MP, HEPATIC, TSH3, MG, CBC #### [address] Hemoglobin (Bld) [Mass/Vol] 14.4 g/dL Normal 11.8-15.4 [facility] Comment on above: Performed By: #### B MP, HEPATIC, TSH3, MG, CBC #### [address] Lymphocytes (Bld) [#/Vol] 1.5 10*3/uL Normal 1.00-4.8 [facility] Comment on above: Performed By: #### B MP, HEPATIC, TSH3, MG, CBC #### [address] Lymphocytes/100 WBC (Bld) 9.8 % Normal . [facility] Comment on above: Performed By: #### B MP, HEPATIC, TSH3, MG, CBC #### [address] MCH (RBC) [Entitic mass] 31.4 pg Normal 24.7-34.3 [facility] Comment on above: Performed By: #### B MP, HEPATIC, TSH3, MG, CBC #### [address] MCV (RBC) [Entitic vol] 93.2 fL Normal 80-100 [facility] Comment on above: Performed By: #### B MP, HEPATIC, TSH3, MG, CBC #### [address] Mean Corpuscular HGB Conc 33.7 g/dL Normal 32.0-35.0 [facility] Comment on above: Performed By: #### B MP, HEPATIC, TSH3, MG, CBC #### [address] Monocytes (Bld) [#/Vol] 0.7 10*3/uL Normal 0.0-0.8 [facility] Comment on above: Performed By: #### B MP, HEPATIC, TSH3, MG, CBC #### [address] Monocytes/100 WBC (Bld) 5.0 % Normal . [facility] Comment on above: Performed By: #### B MP, HEPATIC, TSH3, MG, CBC #### [address] Neutrophils (Bld) [#/Vol] 12.6 10*3/uL High 1.8-7.7 [facility] Comment on above: Performed By: #### B MP, HEPATIC, TSH3, MG, CBC #### [address] Neutrophils/100 WBC (Bld) 84.7 % Normal . [facility] Comment on above: Performed By: #### B MP, HEPATIC, TSH3, MG, CBC #### [address] NRBC% 0.1 /100{WBC} Normal 0-0.5 [facility] Comment on above: Performed By: #### B MP, HEPATIC, TSH3, MG, CBC #### [address] Platelet mean volume (Bld) [Entitic vol] 10.1 fL Normal 6.3-10.7 [facility] Comment on above: Performed By: #### B MP, HEPATIC, TSH3, MG, CBC #### [address] Platelets (Bld) [#/Vol] 187 10*3/uL Normal 150-450 [facility] Comment on above: Performed By: #### B MP, HEPATIC, TSH3, MG, CBC #### [address] RBC (Bld) [#/Vol] 4.59 10*6/uL Normal 3.60-5.00 [facility] Comment on above: Performed By: #### B MP, HEPATIC, TSH3, MG, CBC #### [address] WBC (Bld) [#/Vol] 14.9 10*3/uL High 3.8-11.6 [facility] Comment on above: Performed By: #### B MP, HEPATIC, TSH3, MG, CBC #### [address] Creatine kinase [Enzymatic a ctivity/volume] in Serum or PlasmaOrdered By: Ren Mohan on 12-25-2023 CK [Catalytic activity/Vol] 52 U/L Normal 30-223 [facility] Comment on above: Performed By: #### B MP, HEPATIC, TSH3, MG, CBC #### [facility] [address] [place] [id number] [facility] Glucose Poct Glucometerson 1 Glucose [Mass/Vol] 232 mg/dL Normal [facility] Comment on above: Result Comment: Delta om Glucose Reference Range is dependent on time and content of last meal. Glucose of more than 200 mg/dL in a nonstressed, ambulatory subject supports the diagnosis of Diabetes Mellitus. PERFORMED BY: [place] [address] PATHOLOGIST [employer]PORATE TRAVEL COUNSELOR CINDY BRADSHAW M.D. Performed By: #### B MP, HEPATIC, TSH3, MG, CBC #### [address] Glucose [Mass/Vol] 213 mg/dL Normal [facility] Comment on above: Result Comment: Delta om Glucose Reference Range is dependent on time and content of last meal. Glucose of more than 200 mg/dL in a nonstressed, ambulatory subject supports the diagnosis of Diabetes Mellitus. PERFORMED BY: [place] [address] PATHOLOGIST CORPORATE TRAVEL COUNSELOR CINDY BRADSHAW M.D. Performed By: #### B MP, HEPATIC, TSH3, MG, CBC #### [facility] [address] Glucose [Mass/Vol] 252 mg/dL Normal [facility] Comment on above: Result Comment: Delta om Glucose Reference Range is dependent on time and content of last meal. Glucose of more than 200 mg/dL in a nonstressed, ambulatory subject supports the diagnosis of Diabetes Mellitus. PERFORMED BY: [place] [address] PATHOLOGIST CORPORATE TRAVEL COUNSELOR CINDY BRADSHAW M.D. Performed By: #### B MP, HEPATIC, TSH3, MG, CBC #### [facility] [address] [place] [id number] [place] Glucose [Mass/Vol] 202 mg/dL Normal [facility] Comment on above: Result Comment: Delta om Glucose Reference Range is dependent on time and content of last meal. Glucose of more than 200 mg/dL in a nonstressed, ambulatory subject supports the diagnosis of Diabetes Mellitus. PERFORMED BY: [place] [address] PATHOLOGIST CORPORATE TRAVEL COUNSELOR CINDY BRADSHAW M.D. Performed By: #### G AURELIA #### Point of Care testing , Glucose mean value [Mass/vol ume] in Blood Estimated from glycated hemoglobinOrdered By: Ren Mohan on 12-25-2023 Average glucose Estimated from glycated hemoglobin (Bld) [Mass/Vol] 177 mg/dL [facility] Hemoglobin A1c percentageOrd ered By: Ren Mohan on 12-25-2023 HbA1c (Bld) [Mass fraction] 7.8 % High 4.3-5.6 [facility] Comment on above: Increased risk for d iabetes: 5.7 - 6.4diabetes: >6.4glycemic control for adults with diabetes: <7.0 Result Comment: Incr eased risk for diabetes: 5.7 - 6.4 diabetes: >6.4 glycemic control for adults with diabetes: <7.0 Performed By: #### B MP, HEPATIC, TSH3, MG, CBC #### [address] INR in Platelet poor plasma by Coagulation assayOrdered By: Ren Mohan on 12-25-2023 INR Coag (PPP) [Relative time] 1.2 {INR} Normal [facility] Comment on above: INR Therapeutic Rang e A) Pre- and Peroperative OAT started two weeks before surgery. NOT HIP SURGERY: 1.5 - 2.5 HIP SURGERY: 2 - 3B) Primary and secondary prevention of venous THROMBOSIS: 2 - 3C) Active venous thrombosis, pulmonary embolismand prevention of recurrent venous thrombosis: 2 - 3D) Prevention of arterial thromboembolismincluding patients with mechanical heart valves: 3 - 4.5 Result Comment: INR Therapeutic Range A) Pre- [...] heart valves: 3 - 4.5 PERFORMED BY: [place] [address] PATHOLOGIST CORPORATE TRAVEL COUNSELOR CINDY BRADSHAW M.D. Performed By: #### B MP, HEPATIC, TSH3, MG, CBC #### [address] Lipid Panelon 12-25-2023 LDL Cholesterol,Calculated 115 mg/dL High 0-100 [facility] Comment on above: Order Comment: FASTI NG N Result Comment: LDL ATP III CLASSIFICATION LDL less than 100 mg/dL Optimal LDL 100-129 mg/dL Near or above optimal LDL 130-159 mg/dL Borderline high LDL 160-189 mg/dL High LDL greater than 189 mg/dL Very high Performed By: #### B MP, HEPATIC, TSH3, MG, CBC #### [address] Triglyceride w/Reflex 118 mg/dL Normal 0-149 [facility] Comment on above: Order Comment: FASTI NG N Result Comment: TRIG ATP III CLASSIFICATION TRIG less than 150 mg/dL Normal TRIG 150-199 mg/dL Borderline high TRIG 200-500 mg/dL High TRIG greater than 500 mg/dL Very high Standard traceable to the Center for Disease Conrtrol and Prevention (CDC) test method. Performed By: #### B MP, HEPATIC, TSH3, MG, CBC #### [address] VLDL CHOLESTEROL 23 mg/dL Normal [facility] Comment on above: Order Comment: FASTI NG N Performed By: #### B MP, HEPATIC, TSH3, MG, CBC #### [place] [id number] [facility] Magnesiumon 12-25-2023 Magnesium [Mass/Vol] 1.3 mg/dL Low 1.9-2.7 [facility] Comment on above: Order Comment: FASTI NG N Performed By: #### B MP, HEPATIC, TSH3, MG, CBC #### [place] [address] [place] Partial Thromboplastin Timeo n 12-25-2023 aPTT Coag (Bld) [Time] 33.2 s Normal 25.1-36.5 [facility] e [facility] Comment on above: Result Comment: A he matocrit value greater than 55% may lead to inaccurate results in coagulation testing. Patients having hematocrit values >55% require a special collection tube for coagulation studies. Please contact the laboratory at [phone] for redraw instructions. PERFORMED BY: [address] [address] PATHOLOGIST CORPORATE TRAVEL COUNSELOR CINDY BRADSHAW M.D. Performed By: #### P TT #### [place] [id number] [facility] Prothrombin time (PT)Ordered By: Ren Mohan on 12-25-2023 PT Coag (PPP) [Time] 14.1 s High 9.0-12.9 [facility] Comment on above: A hematocrit value g reater than 55% may lead to inaccurate results in coagulation testing. Patients having hematocrit values >55% require a special collection tube for coagulation studies. Please contact the laboratory at [phone] for redraw instructions. Result Comment: A he matocrit value greater than 55% may lead to inaccurate results in coagulation testing. Patients having hematocrit values >55% require a special collection tube for coagulation studies. Please contact the laboratory at [phone] for redraw instructions. Performed By: #### B MP, HEPATIC, TSH3, MG, CBC #### [address] [address] [facility] Respiratory (Upper) Panel, P CRon 12-25-2023 Respiratory [...] A H3 Blank Space -- PERFORMED BY: [place] [address] PATHOLOGIST CORPORATE TRAVEL COUNSELOR CINDY BRADSHAW M.D. Normal [facility] Comment on above: Performed By: #### B MP, HEPATIC, TSH3, MG, CBC #### [facility] [address] [place] [address] Respiratory pathogens DNA an d RNA panel - Nasopharynx by COLIN with non-probe detectionOrdered By: Ren Mohan on 12-25-2023 Respiratory pathogens DNA and RNA panel COLIN+non-probe (Nph) [facility] Serum or plasma high density lipoprotein (HDL) cholesterol measurementOrdered By: Ren Mohan on 12-25-2023 Cholesterol in HDL [Mass/Vol] 27 mg/dL Normal 23-92 [facility] Comment on above: HDL CHOL ATP-III CLA SSIFICATION Cardiovascular RiskHDL > or equal to 60 mg/dL LOWHDL < 40 mg/dL HIGH Order Comment: TERA Wells Result Comment: HDL CHOL ATP-III CLASSIFICATION Cardiovascular Risk HDL > or equal to 60 mg/dL LOW HDL < 40 mg/dL HIGH Performed By: #### B MP, HEPATIC, TSH3, MG, CBC #### [facility] [address] [place] [address] Serum or plasma total choles terol/high density lipoprotein (HDL) cholesterol mass ratOrdered By: Ren Mohan on 12-25-2023 Cholesterol.total/Chol esterol in HDL [Mass ratio] 6.1 {ratio} Normal <5.0 [facility] Comment on above: Order Comment: TERA ASCENCIO N Result Comment: PERF ORMED BY: [place] [address] PATHOLOGIST CORPORATE TRAVEL COUNSELOR CINDY BRADSHAW M.D. Performed By: #### B MP, HEPATIC, TSH3, MG, CBC #### [place] [id number] [facility] Triglyceride [Mass/volume] i n Serum or PlasmaOrdered By: Ren Mohan on 12-25-2023 Triglyceride [Mass/Vol] 118 mg/dL 0-149 [facility] Comment on above: TRIG ATP III CLASSIF ICATIONTRIG less than 150 mg/dL NormalTRIG 150-199 mg/dL Borderline highTRIG 200-500 mg/dL High TRIG greater than 500 mg/dL Very highStandard traceable to the Center for Disease Conrtrol and Prevention (CDC) test method. Troponin I High Sensitivityo n 12-25-2023 Troponin I High Sensitivity 282.7 pg/mL Off scale high 0.0-15.0 [facility] Comment on above: Result Comment: Crit ical Result : Called to and read back by: ARMANI GUDINO at: 12/25/2023 07:36:52 by:SPENCER PERFORMED BY: [place] [address] PATHOLOGIST CORPORATE TRAVEL COUNSELOR CINDY BRADSHAW M.D. Performed By: #### B MP, HEPATIC, TSH3, MG, CBC #### [place] [id number] [facility] Office Visit (Cardiology)on 09-30-2022 Follow-up visit Diagnoses/Problems [...] Aminotransferase, Serum; Status:Active - Retrospective Authorization; Requested for:[id number]; AST; Status:Active - Retrospective Authorization; Requested for:[id number]; Basic Metabolic Panel; Status:Active - Retrospective Authorization; Requested for:[id number]; Lipid Panel; Status:Active - Retrospective Authorization; Requested for:[id number]; SocHx: Never a smoker Tobacco Use Screening; Status:Complete; Done: [id number] Patient Instructions Please bring all medicines, vitamins, [...] try to obtain most recent labs at [facility] in last two weeks if [...] Dilia RAMIREZ, Yoan Li (Gastroenterology) History of [place] filter placement Past Medical History Problems History [...] negative for complaint. Vitals Vital Signs Recorded: [id number] 09:09AM Heart Rate56 [id number], LUE, Sitting Lswoigxyg18, LUE, Sitting Height5 ft 8 in Tobacco [...] Psyc (more content not included)... Normal [facility] NO CARDIAC STRESS/REST INJE CTIONon 05-04-2023 [facility] CARDIAC STRESS/REST INJECTION Patient Name: MOHAN ESPINOZA STUDY: MYOCARDIAL PERFUSION STRESS TEST WITH LEXISCAN Performing facility: [facility], [address] [place] [address], [address], [place] [address] [facility] Provider: Leanna Casey DO, [facility] PCP: Dr. Ruben Schultz Supervising provider: Yu Barriga MD, [facility] INDICATION: A-fib ASHD CHF HISTORY: Gender: F; Age: 87 y/o ; Height: 0 cm; Weight: [phone] kg. CAD; Diabetes; Previous [place]; Arrhythmias; Denies smoking. CABG on 2007. COMPARISON: No comparison. ACCESSION NUMBER(S): [id number]; [id number]; [id number] ORDERING CLINICIAN: JOSELUIS CASEY TECHNIQUE: TWO DAY [...] Electronically signed by: STEPHANIE HANCOCK MD Normal [facility] Height or Weight NOT Doneon 07-01-2022 Adult depression screening assessment Yes -[facility] DO Work Phone: Adult depression screening assessment Moderately Severe (15-19) M -[facility]-Sandu [address]ador 250 DO Work Phone: Fall risk assessment a) No falls within the last year [facility] ricoy [address] DO Work Phone: Tobacco use status [facility] b) No -[facility]-Sandu [address] 250 DO Work Phone: Height or Weight NOT Done 3-Nearly every day [facility] ricoy 250 DO Work Phone: Height or Weight NOT Done 1-Several days [facility] [address] DO Work Phone: Height or Weight NOT Done 0-Not at all [facility]ana franco 250 DO Work Phone: Height or Weight NOT Done Very Difficult [facility] DO Work Phone: Office Visit (Cardiology)on [...] Metabolic Panel; Status:Active - Retrospective Authorization; Requested for:[id number]; Brain Natriuretic Peptide BNP; Status:Active - Retrospective Authorization; Requested for:[id number]; Health Maintenance Depression Follow-up Visit Outpatient Follow-up Status: Complete - Retrospective Authorization Done: [id number] SocHx: Never a smoker Tobacco Use Screening; Status:Complete; Done: [id number] Tobacco Use Screening; Status:Complete; Done: [id number] Patient Instructions Please bring all medicines, vitamins, and herbal supplements with you when you come to the office. Prescriptions will not be filled unless you are compliant with your follow up appointments or have a follow up appointment scheduled as per instruction of your physician. Refills should be requested at the time of your visit. Follow up in [12 ] weeks Chief Complaint [facility] D/C 06/23/22. 86-year-old [...] Dilia RAMIREZ, Yoan Li (Gastroenterology) History of [place] filter placement Past Medical History Problems History [...] Recorded: 01Jul2022 09:34AM Heart Rate68, L Radial [id number], RUE, Sitting Lkowctwwa43, RUE, Sitting Height5 ft 8 in Height or Weight NOT Done (more content not included)... [facility] Calcium [Mass/volume] in Ser um or PlasmaOrdered By: Brissa Hoffman on 06-29-2022 Calcium [Mass/Vol] 8.8 mg/dL 8.6-10.3 [facility] Carbon dioxide, total [Moles /volume] in Serum or PlasmaOrdered By: Brissa Hoffman on 06-29-2022 CO2 [Moles/Vol] 32.3 mmol/L 21.0-31.0 [facility] Chloride [Moles/volume] in S octaviano or PlasmaOrdered By: Brissa Hoffman on 06-29-2022 Chloride [Moles/Vol] 100 mmol/L 98-107 [facility] Creatinine [Mass/volume] in Serum or PlasmaOrdered By: Brissa Hoffman on 06-29-2022 Creatinine [Mass/Vol] 1.66 mg/dL 0.60-1.20 [facility] Glucose [Mass/volume] in Ser um or PlasmaOrdered By: Brissa Hoffman on 06-29-2022 Glucose [Mass/Vol] 245 mg/dL 70-100 [facility] Comment on above: ADA recommended refe rence rangeRandom Glucose Reference Range is dependent on time and content of last meal. Glucose of more than 200 mg/dL in a nonstressed, ambulatory subject supports the diagnosis of Diabetes Mellitus. No Panel InformationOrdered By: Brissa Hoffman on 06-29-2022 Estimated GFR (CKD-EPI) 30.239 mL/Min [facility] Creatinine Clearance (Chem N/A [facility] Potassium [Moles/volume] in Serum or PlasmaOrdered By: Brissa Hoffman on 06-29-2022 Potassium [Moles/Vol] 4.6 mmol/L 3.5-5.1 [facility] Serum or plasma anion gap de terminationOrdered By: Brissa Hoffman on 06-29-2022 Anion gap [Moles/Vol] 9.3 mmol/L 6.0-15.0 [facility] Sodium [Moles/volume] in Ser um or PlasmaOrdered By: Brissa Hoffman on 06-29-2022 Sodium [Moles/Vol] 137 mmol/L 136-145 [facility] Urea nitrogen [Mass/volume] in Serum or PlasmaOrdered By: Brissa Hoffman on 06-29-2022 Urea nitrogen [Mass/Vol] 31 mg/dL 7-25 [facility] Basophils Auto (Bld) [#/Vol] Ordered By: Brissa Hoffman on 06-23-2022 Basophils (Bld) [#/Vol] 0.1 10*3/uL 0.0-0.2 [facility] Basophils/100 WBC Auto (Bld) Ordered By: Brissa Hoffman on 06-23-2022 Basophils/100 WBC (Bld) 1.0 % . [facility] Calcium [Mass/volume] in Ser um or PlasmaOrdered By: Marta Casey on 06-23-2022 Calcium [Mass/Vol] 8.7 mg/dL 8.6-10.3 [facility] Carbon dioxide, total [Moles /volume] in Serum or PlasmaOrdered By: Marta Casey on 06-23-2022 CO2 [Moles/Vol] 26.3 mmol/L 21.0-31.0 [facility] Chloride [Moles/volume] in S octaviano or PlasmaOrdered By: Marta Casey on 06-23-2022 Chloride [Moles/Vol] 102 mmol/L 98-107 [facility] Creatine kinase [Enzymatic a ctivity/volume] in Serum or PlasmaOrdered By: Marta Casey on 06-23-2022 CK [Catalytic activity/Vol] 74 U/L 30-223 [facility] Creatinine [Mass/volume] in Serum or PlasmaOrdered By: Marta Casey on 06-23-2022 Creatinine [Mass/Vol] 1.44 mg/dL 0.60-1.20 [facility] Eosinophils Auto (Bld) [#/Vo l]Ordered By: Brissa Hoffman on 06-23-2022 Eosinophils (Bld) [#/Vol] 0.1 10*3/uL 0.0-0.45 [facility] Eosinophils/100 WBC Auto (Bl d)Ordered By: Brissa Hoffman on 06-23-2022 Eosinophils/100 WBC (Bld) 1.8 % . [facility] Erythrocyte distribution wid th Auto (RBC) [Ratio]Ordered By: Brissa Hoffman on 06-23-2022 Erythrocyte distribution width (RBC) [Ratio] 14.7 % 11.9-15.3 [facility] Glucose Glucometer (BldC) [M ass/Vol]Ordered By: Brissa Hoffman on 06-23-2022 Glucose [Mass/Vol] 230 mg/dL [facility] Comment on above: Random Glucose Refer ence Range is dependent on time and content of last meal. Glucose of more than 200 mg/dL in a nonstressed, ambulatory subject supports the diagnosis of Diabetes Mellitus. Glucose [Mass/volume] in Ser um or PlasmaOrdered By: Marta Casey on 06-23-2022 Glucose [Mass/Vol] 255 mg/dL 70-100 [facility] Comment on above: ADA recommended refe rence rangeRandom Glucose Reference Range is dependent on time and content of last meal. Glucose of more than 200 mg/dL in a nonstressed, ambulatory subject supports the diagnosis of Diabetes Mellitus. Hematocrit Auto (Bld) [Volum e fraction]Ordered By: Brissa Hoffman on 06-23-2022 Hematocrit (Bld) [Volume fraction] 41.2 % 34.0-46.4 [facility] Hemoglobin [Mass/volume] in BloodOrdered By: Brisas Hoffman on 06-23-2022 Hemoglobin (Bld) [Mass/Vol] 13.6 g/dL 11.8-15.4 [facility] Leukocytes [#/volume] correc ruma for nucleated erythrocytes in Blood by Automated counOrdered By: Brissa Hoffman on 06-23-2022 WBC corrected for nucl RBC Auto (Bld) [#/Vol] 6.4 10*3/uL 3.8-11.6 [facility] Lymphocytes Auto (Bld) [#/Vo l]Ordered By: Brissa Hoffman on 06-23-2022 Lymphocytes (Bld) [#/Vol] 1.6 10*3/uL 1.00-4.8 [facility] Lymphocytes/100 WBC Auto (Bl d)Ordered By: Brissa Hoffman on 06-23-2022 Lymphocytes/100 WBC (Bld) 24.6 % . [facility] MCH Auto (RBC) [Entitic mass ]Ordered By: Brissa Hoffman on 06-23-2022 MCH (RBC) [Entitic mass] 30.9 pg 24.7-34.3 [facility] MCHC Auto (RBC) [Mass/Vol]Or dered By: Brissa Hoffman on 06-23-2022 MCHC (RBC) [Mass/Vol] 33.0 g/dL 32.0-35.0 [facility] MCV Auto (RBC) [Entitic vol] Ordered By: Brissa Hoffman on 06-23-2022 MCV (RBC) [Entitic vol] 93.5 fL 80-100 [facility] Monocytes Auto (Bld) [#/Vol] Ordered By: Brissa Hoffman on 06-23-2022 Monocytes (Bld) [#/Vol] 0.8 10*3/uL 0.0-0.8 [facility] Monocytes/100 WBC Auto (Bld) Ordered By: Brissa Hoffman on 06-23-2022 Monocytes/100 WBC (Bld) 12.9 % . [facility] Neutrophils Auto (Bld) [#/Vo l]Ordered By: Brissa Hoffman on 06-23-2022 Neutrophils (Bld) [#/Vol] 3.8 10*3/uL 1.8-7.7 [facility] Neutrophils/100 WBC Auto (Bl d)Ordered By: Brissa Hoffman on 06-23-2022 Neutrophils/100 WBC (Bld) 59.7 % . [facility] No Panel InformationOrdered By: Marta Casey on 06-23-2022 Estimated GFR (CKD-EPI) 35.865 mL/Min [facility] Creatinine Clearance (Chem 42.65 [facility] Nucleated erythrocytes [Pres ence] in Blood by Automated countOrdered By: Brissa Hoffman on 06-23-2022 Nucleated RBC Auto Ql (Bld) 0.0 /100{WBC} 0-0.5 [facility] Platelet mean volume Auto (B ld) [Entitic vol]Ordered By: Brissa Hoffman on 06-23-2022 Platelet mean volume (Bld) [Entitic vol] 10.2 fL 6.3-10.7 [facility] Platelets Auto (Bld) [#/Vol] Ordered By: Brissa Hoffman on 06-23-2022 Platelets (Bld) [#/Vol] 147 10*3/uL 150-450 [facility] Potassium [Moles/volume] in Serum or PlasmaOrdered By: Marta Casey on 06-23-2022 Potassium [Moles/Vol] 4.2 mmol/L 3.5-5.1 [facility] RBC Auto (Bld) [#/Vol]Ordere d By: Brissa Hoffman on 06-23-2022 RBC (Bld) [#/Vol] 4.41 10*6/uL 3.60-5.00 [facility] Serum or plasma anion gap de terminationOrdered By: Marta Casey on 06-23-2022 Anion gap [Moles/Vol] 10.9 mmol/L 6.0-15.0 [facility] Sodium [Moles/volume] in Ser um or PlasmaOrdered By: Marta Casey on 06-23-2022 Sodium [Moles/Vol] 135 mmol/L 136-145 [facility] Troponin I.cardiac [Mass/vol ume] in Serum or Plasma by Detection limit <= 0.01 ng/Ordered By: Marta Casey on 06-23-2022 Troponin I.cardiac DL <= 0.01 ng/mL [Mass/Vol] 65.3 pg/mL 0.0-15.0 [facility] Comment on above: Critical Result : Ca lled to and read back by: CHELY HERNADEZ at: 06/23/2022 10:49:30 by:LEENA Urea nitrogen [Mass/volume] in Serum or PlasmaOrdered By: Marta Casey on 06-23-2022 Urea nitrogen [Mass/Vol] 37 mg/dL 7- [facility] WBC Auto (Bld) [#/Vol]Ordere d By: Brissa Hoffman on 06-23-2022 WBC (Bld) [#/Vol] 6.4 10*3/uL 3.8-11.6 [facility] Alanine aminotransferase [En zymatic activity/volume] in Serum or PlasmaOrdered By: Marcela Cano on 06-22-2022 ALT [Catalytic activity/Vol] 13 U/L 7-52 [facility] Albumin [Mass/volume] in Ser um or Plasma by Bromocresol green (BCG) dye binding methoOrdered By: Marcela Cano on 06-22-2022 Albumin BCG dye [Mass/Vol] 3.4 g/dL 3.5-5.7 [facility] Alkaline phosphatase [Enzyma tic activity/volume] in Serum or PlasmaOrdered By: Marcela Cano on 06-22-2022 ALP [Catalytic activity/Vol] 74 U/L 34-104 [facility] Aspartate aminotransferase [ Enzymatic activity/volume] in Serum or PlasmaOrdered By: Marcela Cano on 06-22-2022 AST [Catalytic activity/Vol] 16 U/L 13-39 [facility] Bilirubin.total [Mass/volume ] in Serum or PlasmaOrdered By: Marcela Cano on 06-22-2022 Bilirubin [Mass/Vol] 0.7 mg/dL 0.3-1.0 [facility] Cholesterol [Mass/volume] in Serum or PlasmaOrdered By: Marcela Cano on 06-22-2022 Cholesterol [Mass/Vol] 162 mg/dL 140-200 [facility] Comment on above: Chol less than 200 m g/dl low riskChol 201-239 mg/dl borderline riskChol 240 mg/dl and greater high risk Cholesterol in LDL Calc [Mas s/Vol]Ordered By: Marcela Cano on 06-22-2022 Cholesterol in LDL [Mass/Vol] 105 mg/dL 0-100 [facility] Comment on above: LDL ATP III CLASSIFI CATIONLDL less than 100 mg/dL OptimalLDL 100-129 mg/dL Near or above optimalLDL 130-159 mg/dL Borderline highLDL 160-189 mg/dL HighLDL greater than 189 mg/dL Very high Cholesterol in VLDL Calc [Ma ss/Vol]Ordered By: Marcela Cano on 06-22-2022 Cholesterol in VLDL [Mass/Vol] 32 mg/dL [facility] Globulin Calc (S) [Mass/Vol] Ordered By: Marcela Cano on 06-22-2022 Globulin (S) [Mass/Vol] 2.5 g/dL [facility] Glucose mean value [Mass/vol ume] in Blood Estimated from glycated hemoglobinOrdered By: Marcela Cano on 06-22-2022 Average glucose Estimated from glycated hemoglobin (Bld) [Mass/Vol] 194 mg/dL [facility] Hemoglobin A1c percentageOrd ered By: Marcela Cano on 06-22-2022 HbA1c (Bld) [Mass fraction] 8.4 % 4.3-5.6 [facility] Comment on above: Increased risk for d iabetes: 5.7 - 6.4diabetes: >6.4glycemic control for adults with diabetes: <7.0 Lactate [Moles/volume] in Se rum or PlasmaOrdered By: Marcela Cano on 06-22-2022 Lactate [Moles/Vol] 1.2 mmol/L 0.5-2.2 [facility] Natriuretic peptide B [Mass/ Vol]Ordered By: Marcela Cano on 06-22-2022 Natriuretic peptide B (Bld) [Mass/Vol] 507.0 pg/mL 5-100 [facility] No Panel InformationOrdered By: Toi Johnson on 06-22-2022 Bedside Glucose Comment Glu2: cleaned meter [facility] Protein [Mass/volume] in Ser um or PlasmaOrdered By: Marcela Cano on 06-22-2022 Protein [Mass/Vol] 5.9 g/dL 6.4-8.9 [facility] Serum or plasma albumin/glob ulin mass ratioOrdered By: Marcela Cano on 06-22-2022 Albumin/Globulin [Mass ratio] 1.4 {ratio} [facility] Serum or plasma high density lipoprotein (HDL) cholesterol measurementOrdered By: Marcela Cano on 06-22-2022 Cholesterol in HDL [Mass/Vol] 25 mg/dL 35-85 [facility] Comment on above: HDL CHOL ATP-III CLA SSIFICATION Cardiovascular RiskHDL > or equal to 60 mg/dL LOWHDL < 40 mg/dL HIGH Serum or plasma total choles terol/high density lipoprotein (HDL) cholesterol mass ratOrdered By: Marcela Cano on 06-22-2022 Cholesterol.total/Chol esterol in HDL [Mass ratio] 6.5 {ratio} <5.0 [facility] TROPONIN, HIGH SENSITIVITYon 06-22-2022 HSTROP 395.9 pg/mL Critically high 4.0-51.3 [facility] Comment on above: Result Comment: CUT- OFF POINTS HAVE BEEN ESTABLISHED BASED ON THE FOURTH UNIVERSAL DEFINITIONS OF MYOCARDIAL INFARCTION. THE UPPER REFERENCE LIMIT (URL) OF TROPONIN, DEFINED THE 99TH PERCENTILE OF cTnI DISTRIBUTION IN A REFERENCE POPULATION, HAS BEEN CONFIRMED THE DECISION THRESHOLD FOR [place] DIAGNOSIS. Performed By: #### U RTPCR #### [facility] [address] [place] [address] Dr. Shilpa Beard Triglyceride [Mass/volume] i n Serum or PlasmaOrdered By: Marcela Cano on 06-22-2022 Triglyceride [Mass/Vol] 160 mg/dL 0-149 [facility] Comment on above: TRIG ATP III CLASSIF ICATIONTRIG less than 150 mg/dL NormalTRIG 150-199 mg/dL Borderline highTRIG 200-500 mg/dL High TRIG greater than 500 mg/dL Very highStandard traceable to the Center for Disease Conrtrol and Prevention (CDC) test method. AMYLASEon 06-21-2022 Amylase [Catalytic activity/Vol] 41 U/L Normal 25-115 [facility] Comment on above: Performed By: #### L IPA, ALLISON #### [facility] [address] [place] [address] Dr. Shilpa Beard CBC AUTO DIFFon 06-21-2022 BASO # 0.1 103/ul Normal 0.0-0.1 [facility] Comment on above: Performed By: #### C BC #### [facility] [address] [place] [address] Dr. Shilpa Beard Basophils/100 WBC (Bld) 0.4 % Normal 0.2-2.0 [facility] Comment on above: Performed By: #### C BC #### [facility] [address] [place] [address] Dr. Shilpa Beard EO # 0.0 103/ul Normal 0.0-0.7 [facility] Comment on above: Performed By: #### C BC #### [facility] [address] [place] [address] Dr. Shilpa Beard Eosinophils/100 WBC (Bld) 0.1 % Critically low 0.9-7.0 [facility] Comment on above: Performed By: #### C BC #### [facility] [address] [place] [address] Dr. Shilpa Beard Erythrocyte distribution width (RBC) [Ratio] 13.4 % Normal 11.0-15.0 [facility] Comment on above: Performed By: #### C BC #### [facility] [address] [place] [address] Dr. Shilpa Beard Hematocrit (Bld) [Volume fraction] 46.1 % Normal 36.0-48.0 [facility] Comment on above: Performed By: #### C BC #### [facility] [address] [place] [address] Dr. Shilpa Beard Hemoglobin (Bld) [Mass/Vol] 15.6 g/dL Normal 12.0-16.0 [facility] Comment on above: Performed By: #### C BC #### [facility] [address] [place] [address] Dr. Shilpa Beard IG # 0.07 10e3/ul Critically high 0.00-0.03 [facility] Comment on above: Performed By: #### C BC #### [facility] [address] [place] [address] Dr. Shilpa Beard IG % 0.4 % Normal 0.0-0.5 [facility] Comment on above: Performed By: #### C BC #### [facility] [address] [place] [address] Dr. Shilpa Beard LYMPH # 0.7 103/ul Critically low 1.2-3.8 [facility] Comment on above: Performed By: #### C BC #### [facility] [address] [place] [address] Dr. Shilpa Beard Lymphocytes/100 WBC (Bld) 4.4 % Critically low 20.5-60.0 [facility] Comment on above: Performed By: #### C BC #### [facility] [address] [place] [address] Dr. Shilpa Beard MANUAL DIFF REQ NO Normal [facility] Comment on above: Performed By: #### C BC #### [facility] [address] [place] [address] Dr. Shilpa Beard MCH (RBC) [Entitic mass] 30.8 pg Normal 26.7-34.0 [facility] Comment on above: Performed By: #### C BC #### [facility] [address] [address] [address] Shilpa Beard MCHC (RBC) [Mass/Vol] 33.8 g/dL Normal 29.9-35.2 [facility] Comment on above: Performed By: #### C BC #### [facility] [address] [address] [address] Shilpa Beard MCV (RBC) [Entitic vol] 90.9 fL Normal 81.0-99.0 [facility] Comment on above: Performed By: #### C BC #### [facility] [address] [address] [address] Shilpa Beard MONO # 0.9 103/ul Critically high 0.3-0.8 [facility] Comment on above: Performed By: #### C BC #### [facility] [address] [address] [address] Shilpa Beard Monocytes/100 WBC (Bld) 5.6 % Normal 1.7-12.0 [facility] Comment on above: Performed By: #### C BC #### [facility] [address] [address] [address] Shilpa Beard NEUT # 14.5 103/ul Critically high 1.4-6.5 [facility] Comment on above: Performed By: #### C BC #### [facility] [address] [address] [address] Shilpa Beard Neutrophils/100 WBC (Bld) 89.1 % Critically high 43.0-75.0 [facility] Comment on above: Performed By: #### C BC #### [facility] [address] [address] [address] Shilpa Beard Platelet mean volume (Bld) [Entitic vol] 11.6 fL Normal 9.5-13.5 [facility] Comment on above: Performed By: #### C BC #### [facility] [address] [address] [address] Shilpa Beard PLT 176 103/ul Normal 150-450 [facility] Comment on above: Performed By: #### C BC #### [facility] [address] [place], [place] [address] Dr. Shilpa Beard RBC 5.07 106/ul Normal 4.20-5.40 [facility] Comment on above: Performed By: #### C BC #### [facility] [address] [place], [place] [address] Dr. Shilpa Beard WBC 16.2 103/ul Critically high 4.0-11.0 [facility] Comment on above: Performed By: #### C BC #### [facility] [address] [place], [place] [address] ABD/PELVIS WO CONon [...] JENNIFER SWIFT Date: 2022-06-21 21:52 Normal [facility] CULTURE URINEon 06-21-2022 CULTURE URINE Culture Observations : NO GROWTH. Normal [facility] Comment on above: Performed By: #### L IPA, ALLISON #### [facility] [address] [place] [address] Dr. Shilpa Beard Covid-19 PCR (CVDTB)on SARS-CoV-2 (COVID-19) RNA COLIN+probe Ql (Unsp spec) Not detected Normal NOT DETECTED [facility] Comment on above: Result Comment: [...] for this test is supported by the Delivery Driver Assistant of Health and Human Service's declaration that [...] used). Performed By: #### C VDTBH #### [facility] [address] [place] [address] Dr. Shilpa Beard ER URINE PROFILEon 3 Bilirubin Ql (U) Negative Normal NEGATIVE [facility] Comment on above: Performed By: #### U RTPCR #### [facility] [address] [place] [address] Dr. Shilpa Beard Clarity (U) CLEAR Normal CLEAR [facility] Comment on above: Performed By: #### U RTPCR #### [facility] [address] [place] [address] Dr. Shilpa Beard Color (U) LT. YELLOW Normal YELLOW [facility] Comment on above: Performed By: #### U RTPCR #### [facility] [address] [place] [address] Dr. Shilpa Beard ERUAHD A micrscopic examina tion will be performed if indicated. Normal [facility] Comment on above: Performed By: #### U RTPCR #### [facility] [address] [place] [address] Dr. Shilpa Beard Glucose Ql (U) 250 mg/dl Abnormal NEGATIVE [facility] Comment on above: Performed By: #### U RTPCR #### [facility] [address] [place] [address] Dr. Shilpa Beard Hemoglobin Ql (U) TRACE-INTACT Abnormal NEGATIVE [facility] Comment on above: Performed By: #### U RTPCR #### [facility] [address] [place] [address] Dr. Shilpa Beard Ketones Ql (U) Negative Normal NEGATIVE [facility] Comment on above: Performed By: #### U RTPCR #### [facility] [address] [place] [address] Dr. Shilpa Beard LEUKOCYTES Negative Normal NEGATIVE [facility] Comment on above: Performed By: #### U RTPCR #### [facility] [address] [place] [address] Dr. Shilpa Beard Nitrite Ql (U) Negative Normal NEGATIVE [facility] Comment on above: Performed By: #### U RTPCR #### [facility] [address] [place] [address] Dr. Shilpa Beard pH (U) 5.0 [pH] Normal 5-9 [facility] Comment on above: Performed By: #### U RTPCR #### [facility] [address] [place] [address] Dr. Shilpa Beard Protein (U) [Mass/Vol] 100 mg/dL Abnormal NEGAT WILSON/ TRACE [facility] Comment on above: Performed By: #### U RTPCR #### [facility] [address] [place] [address] Dr. Shilpa Beard SPEC GRAVITY 1.025 Normal 1.005-<=1. 025 [facility] Comment on above: Performed By: #### U RTPCR #### [facility] [address] [place] [address] Dr. Shilpa Beard UR MICRO IND INDICATED Normal [facility] Comment on above: Performed By: #### U RTPCR #### [facility] [address] [place] [address] Dr. Shilpa Beard Urobilinogen Qn (U) 0.2 {Jacklyn'U}/dL Normal 0.2 - 1. 0 [facility] Comment on above: Performed By: #### U RTPCR #### [facility] [address] [place] [address] Dr. Shilpa Beard LIPASEon 06-21-2022 Lipase [Catalytic activity/Vol] 80.0 U/L Normal 73.0-393.0 [facility] Comment on above: Performed By: #### L IPA, ALLISON #### [facility] [address] [place] [address] Dr. Shilpa Beard Lipase [Catalytic activity/Vol] 82.0 U/L Normal 73.0-393.0 [facility] Comment on above: Performed By: #### U RTPCR #### [facility] [address] [place] [address] Dr. Shilpa Beard PROF 14(COMP METB)on 023 Albumin [Mass/Vol] 3.3 g/dL Critically low 3.4-5.0 [facility] Comment on above: Performed By: #### U RTPCR #### [facility] [address] [place] [address] Dr. Shilpa Beard Albumin/Globulin [Mass ratio] 0.8 {ratio} Normal [facility] Comment on above: Performed By: #### U RTPCR #### [facility] [address] [place] [address] Dr. Shilpa Beard ALP [Catalytic activity/Vol] 114 U/L Normal 46-116 [facility] Comment on above: Performed By: #### U RTPCR #### [facility] [address] [place] [address] Dr. Shilpa Beard ALT [Catalytic activity/Vol] 18 U/L Normal 14-59 [facility] Comment on above: Performed By: #### U RTPCR #### [facility] [address] [place] [address] Dr. Shilpa Beard Anion gap [Moles/Vol] 18.4 mmol/L Normal Th e [facility] Comment on above: Performed By: #### U RTPCR #### [facility] [address] [place] [address] Dr. Shilpa Beard AST [Catalytic activity/Vol] 22 U/L Normal 15-37 [facility] Comment on above: Performed By: #### U RTPCR #### [facility] [address] [address] [address] Shilpa Beard Bilirubin [Mass/Vol] 0.6 mg/dL Normal 0.2-1.0 [facility] Comment on above: Performed By: #### U RTPCR #### [facility] [address] [place] [address] Dr. Shilpa Beard Calcium [Mass/Vol] 8.9 mg/dL Normal 8.5-10.1 [facility] Comment on above: Performed By: #### U RTPCR #### [facility] [address] [place] [address] Dr. Shilpa Beard Chloride [Moles/Vol] 100 mmol/L Normal 98-107 [facility] Comment on above: Performed By: #### U RTPCR #### [facility] [address] [place] [address] Dr. Shilpa Beard CO2 [Moles/Vol] 22.2 mmol/L Normal 21.0-32.0 [facility] Comment on above: Performed By: #### U RTPCR #### [facility] [address] [place] [address] Dr. Shilpa Beard Creatinine [Mass/Vol] 1.80 mg/dL Critically high 0.55-1.02 [facility] Comment on above: Performed By: #### U RTPCR #### [facility] [address] [place] [address] Dr. Shilpa Beard EGFR-AF BURKINAN 32 mL/min/1.73m2 Critically low >=60 [facility] Comment on above: Performed By: #### U RTPCR #### [facility] [address] [place] [address] Dr. Shilpa Beard EGFR-NON AF BURKINAN 27 mL/min/1.73m2 Critically low >=60 [facility] Comment on above: Performed By: #### U RTPCR #### [facility] [address] [place] [address] Dr. Shilpa Beard Globulin (S) [Mass/Vol] 4.0 g/dL Normal [facility] Comment on above: Performed By: #### U RTPCR #### [facility] [address] [place] [address] Dr. Shilpa Beard Glucose [Mass/Vol] 277 mg/dL Critically high 74-106 [facility] Comment on above: Performed By: #### U RTPCR #### [facility] [address] [place] [address] Dr. Shilpa Beard Potassium [Moles/Vol] 4.6 mmol/L Normal 3.5-5.1 [facility] Comment on above: Performed By: #### U RTPCR #### [facility] [address] [place] [address] Dr. Shilpa Beard Protein [Mass/Vol] 7.3 g/dL Normal 6.4-8.2 [facility] Comment on above: Performed By: #### U RTPCR #### [facility] [address] [place] [address] Dr. Shilpa Beard Sodium [Moles/Vol] 136 mmol/L Normal 136-145 [facility] Comment on above: Performed By: #### U RTPCR #### [facility] [address] [place] [address] Dr. Shilpa Beard Urea nitrogen [Mass/Vol] 35.0 mg/dL Critically high 7.0-18.0 [facility] Comment on above: Performed By: #### U RTPCR #### [facility] [address] [place] [address] Dr. Shilpa Beard Urea nitrogen/Creatinine [Mass ratio] 19.4 mg/mg Normal [facility] Comment on above: Performed By: #### U RTPCR #### [facility] [address] [place] [address] Dr. Shilpa Beard TROPONIN, HIGH SENSITIVITYon 06-21-2022 HSTROP 190.4 pg/mL Critically high 4.0-51.3 [facility] Comment on above: Result Comment: CUT- OFF POINTS HAVE BEEN ESTABLISHED BASED ON THE FOURTH UNIVERSAL DEFINITIONS OF MYOCARDIAL INFARCTION. THE UPPER REFERENCE LIMIT (URL) OF TROPONIN, DEFINED THE 99TH PERCENTILE OF cTnI DISTRIBUTION IN A REFERENCE POPULATION, HAS BEEN CONFIRMED THE DECISION THRESHOLD FOR [place] DIAGNOSIS. Performed By: #### H STROPN #### [facility] [address] [place] [address] Dr. Shilpa Beard HSTROP 103.3 pg/mL Critically high 4.0-51.3 [facility] Comment on above: Result Comment: CUT- OFF POINTS HAVE BEEN ESTABLISHED BASED ON THE FOURTH UNIVERSAL DEFINITIONS OF MYOCARDIAL INFARCTION. THE UPPER REFERENCE LIMIT (URL) OF TROPONIN, DEFINED THE 99TH PERCENTILE OF cTnI DISTRIBUTION IN A REFERENCE POPULATION, HAS BEEN CONFIRMED THE DECISION THRESHOLD FOR AZ DIAGNOSIS. Performed By: #### U RTPCR #### [facility] [address] [place] [address] Dr. Shilpa Beard URINE MICROSCOPIC ONLYon AMORPHOUS CRYSTALS FEW Normal [facility] Comment on above: Performed By: #### U RTPCR #### [facility] [address] [place] [address] Dr. Shilpa Beard BACTERIA SMALL Abnormal NONE SEEN [facility] Comment on above: Performed By: #### U RTPCR #### [facility] [address] [place] [address] Dr. Shilpa Beard Bacteria identified Cx Nom (U) INDICATED Normal [facility] Comment on above: Performed By: #### U RTPCR #### [facility] [address] [place] [address] Dr. Shilpa Beard CAST SEEN Abnormal NONE SEEN [facility] Comment on above: Performed By: #### U RTPCR #### [facility] [address] [place] [address] Dr. Shilpa Beard Crystals LM Nom (Urine sed) SEEN Abnormal NONE SEEN [facility] Comment on above: Performed By: #### U RTPCR #### [facility] [address] [place] [address] Dr. Shilpa Beard Epithelial cells LM Ql (Urine sed) FEW Abnormal NONE SEEN /RARE [facility] Comment on above: Performed By: #### U RTPCR #### [facility] [address] [place] [address] Dr. Shilpa Beard HYALINE CAST FEW Normal [facility] Comment on above: Performed By: #### U RTPCR #### [facility] [address] [place] [address] Dr. Shilpa Beard MUCOUS NONE SEEN Normal NONE SEEN [facility] Comment on above: Performed By: #### U RTPCR #### [facility] [address] [place] [address] Dr. Shilpa Beard RBC 2-5 Abnormal 0-2 [facility] Comment on above: Performed By: #### U RTPCR #### [facility] [address] [place] [address] Dr. Shilpa Beard WBC NONE SEEN Normal NONE SEEN [facility] Comment on above: Performed By: #### U RTPCR #### [facility] [address] [place] [address] Dr. Shilpa Beard XR CHEST 1 Von [...] LAURENCE RAJPUT Date: 2022-06-21 17:15 Normal [facility] GLYCOHEMOGLOBIN A1Con 2021 ADA RECOMMENDATION SEE BELOW Normal [facility] Comment on above: Result Comment: ADA RECOMMENDED LIMIT 4.0 - 6.0 ADA THERAPEUTIC TARGET < 7.0 ACTION SUGGESTED > 7.0 Performed By: #### A 1C #### [facility] [address] [address] [address] Shilpa Beard Glucose [Mass/Vol] 174 mg/dL Normal [facility] Comment on above: Performed By: #### A 1C #### [facility] [address] [place] [address] Dr. Shilpa Beard HbA1c (Bld) [Mass fraction] 7.7 % Critically high 4.5-6.2 [facility] Comment on above: Performed By: #### A 1C #### [facility] [address] [place] [address] Dr. Shilpa Beard PROF CHEM 8 (BAS METB)on Anion gap [Moles/Vol] 13.6 mmol/L Normal [facility] Comment on above: Performed By: #### B MP #### [facility] [address] [place] [address] Dr. Shilpa Beard Calcium [Mass/Vol] 9.6 mg/dL Normal 8.5-10.1 [facility] Comment on above: Performed By: #### B MP #### [facility] [address] [place] [address] Dr. Shilpa Beard Chloride [Moles/Vol] 103 mmol/L Normal 98-107 [facility] Comment on above: Performed By: #### B MP #### [facility] [address] [place] [address] Dr. Shilpa Beard CO2 [Moles/Vol] 26.1 mmol/L Normal 21.0-32.0 [facility] Comment on above: Performed By: #### B MP #### [facility] [address] [place] [address] Dr. Shilpa Beard Creatinine [Mass/Vol] 1.30 mg/dL Critically high 0.55-1.02 [facility] Comment on above: Performed By: #### B MP #### [facility] [address] [place] [address] Dr. Shilpa Beard EGFR-AF BURKINAN 47 mL/min/1.73m2 Critically low >=60 [facility] Comment on above: Performed By: #### B MP #### [facility] [address] [address] [address] Shilpa Beard EGFR-NON AF BURKINAN 39 mL/min/1.73m2 Critically low >=60 [facility] Comment on above: Performed By: #### B MP #### [facility] [address] [address] [address] Shilpa Beard Glucose [Mass/Vol] 219 mg/dL Critically high 74-106 [facility] Comment on above: Performed By: #### B MP #### [facility] [address] [address] [address] Shilpa Beard Potassium [Moles/Vol] 4.7 mmol/L Normal 3.5-5.1 [facility] Comment on above: Performed By: #### B MP #### [facility] [address] [address] [address] Shilpa Beard Sodium [Moles/Vol] 138 mmol/L Normal 136-145 [facility] Comment on above: Performed By: #### B MP #### [facility] [address] [address] [address] Shilpa Beard Urea nitrogen [Mass/Vol] 37.0 mg/dL Critically high 7.0-18.0 [facility] Comment on above: Performed By: #### B MP #### [facility] [address] [address] [address] Shilpa Beard Urea nitrogen/Creatinine [Mass ratio] 28.5 mg/mg Normal [facility] Comment on above: Performed By: #### B MP #### [facility] [address] [address] [address] Shilpa Beard PROF CHEM 8 (BAS METB)on Anion gap [Moles/Vol] 15.2 mmol/L Normal [facility] Comment on above: Performed By: #### L FATEMEH ALLISON #### [facility] [address] [address] [address] Shilpa Beard Calcium [Mass/Vol] 8.7 mg/dL Normal 8.5-10.1 [facility] Comment on above: Performed By: #### L IPA ALLISON #### [facility] [address] [address] [address] Shilpa Beard Chloride [Moles/Vol] 102 mmol/L Normal 98-107 [facility] Comment on above: Performed By: #### L IPA, ALLISON #### [facility] [address] [address] [address] Shilpa Beard CO2 [Moles/Vol] 22.8 mmol/L Normal 21.0-32.0 [facility] Comment on above: Performed By: #### L IPA, ALLISON #### [facility] [address] [address] [address] Shilpa Beard Creatinine [Mass/Vol] 1.32 mg/dL Critically high 0.55-1.02 [facility] Comment on above: Performed By: #### L IPA, ALLISON #### [facility] [address] [place] [address] Dr. Shilpa Beard EGFR-AF BURKINAN 46 mL/min/1.73m2 Critically low >=60 [facility] Comment on above: Performed By: #### L IPA, ALLISON #### [facility] [address] [address] [address] Shilpa Beard EGFR-NON AF BURKINAN 38 mL/min/1.73m2 Critically low >=60 [facility] Comment on above: Performed By: #### L IPA, ALLISON #### [facility] [address] [address] [address] Shilpa Beard Glucose [Mass/Vol] 168 mg/dL Critically high 74-106 [facility] Comment on above: Performed By: #### L IPA, ALLISON #### [facility] [address] [address] [address] Shilpa Beard Potassium [Moles/Vol] 5.0 mmol/L Normal 3.5-5.1 [facility] Comment on above: Performed By: #### L IPA, ALLISON #### [facility] [address] [address] [address] Shilpa Beard Sodium [Moles/Vol] 135 mmol/L Critically low 136-145 [facility] Comment on above: Performed By: #### L IPA, ALLISON #### [facility] [address] [place] [address] Dr. Shilpa Beard Urea nitrogen [Mass/Vol] 38.0 mg/dL Critically high 7.0-18.0 [facility] Comment on above: Performed By: #### L IPA, ALLISON #### [facility] [address] [place] [address] Dr. Shilpa Beard Urea nitrogen/Creatinine [Mass ratio] 28.8 mg/mg Normal [facility] Comment on above: Performed By: #### L IPA, ALLISON #### [facility] [address] [place] [address] Dr. Shilpa Beard CBC AUTO DIFFon 06-30-2021 BASO # 0.1 103/ul Normal 0.0-0.1 [facility] Comment on above: Performed By: #### L IPA, ALLISON #### [facility] [address] [place] [address] Dr. Shilpa Beard Basophils/100 WBC (Bld) 1.0 % Normal 0.2-2.0 [facility] Comment on above: Performed By: #### L IPA, ALLISON #### [facility] [address] [place] [address] Dr. Shilpa Beard EO # 0.2 103/ul Normal 0.0-0.7 [facility] Comment on above: Performed By: #### L IPA, ALLISON #### [facility] [address] [place] [address] Dr. Shilpa Beard Eosinophils/100 WBC (Bld) 1.8 % Normal 0.9-7.0 [facility] Comment on above: Performed By: #### L IPA, ALLISON #### [facility] [address] [place] [address] Dr. Shilpa Beard Erythrocyte distribution width (RBC) [Ratio] 13.3 % Normal 11.0-15.0 [facility] Comment on above: Performed By: #### L IPA, ALLISON #### [facility] [address] [place] [address] Dr. Shilpa Beard Hematocrit (Bld) [Volume fraction] 46.5 % Normal 36.0-48.0 [facility] Comment on above: Performed By: #### L IPA, ALLISON #### [facility] [address] [place] [address] Dr. Shilpa Beard Hemoglobin (Bld) [Mass/Vol] 15.1 g/dL Normal 12.0-16.0 [facility] Comment on above: Performed By: #### L IPA, ALLISON #### [facility] [address] [place] [address] Dr. Shilpa Beard IG # 0.06 10e3/ul Critically high 0.00-0.03 [facility] Comment on above: Performed By: #### L IPA, ALLISON #### [facility] [address] [place] [address] Dr. Shilpa Beard IG % 0.7 % Critically high 0.0-0.5 [facility] Comment on above: Performed By: #### L IPA, ALLISON #### [facility] [address] [place] [address] Dr. Shilpa Beard LYMPH # 2.9 103/ul Normal 1.2-3.8 [facility] Comment on above: Performed By: #### L IPA, ALLISON #### [facility] [address] [place] [address] Dr. Shilpa Beard Lymphocytes/100 WBC (Bld) 35.4 % Normal 20.5-60.0 [facility] Comment on above: Performed By: #### L IPA, ALLISON #### [facility] [address] [place] [address] Dr. Shilpa Beard MANUAL DIFF REQ NO Normal [facility] Comment on above: Performed By: #### L IPA, ALLISON #### [facility] [address] [place] [address] Dr. Shilpa Beard MCH (RBC) [Entitic mass] 29.8 pg Normal 26.7-34.0 [facility] Comment on above: Performed By: #### L IPA, ALLISON #### [facility] [address] [place] [address] Dr. Shilpa Beard MCHC (RBC) [Mass/Vol] 32.5 g/dL Normal 29.9-35.2 [facility] Comment on above: Performed By: #### L IPA, ALLISON #### [facility] [address] [place] [address] Dr. Shilpa Beard MCV (RBC) [Entitic vol] 91.9 fL Normal 81.0-99.0 [facility] Comment on above: Performed By: #### L IPA, ALLISON #### [facility] [address] [place] [address] Dr. Shilpa Beard MONO # 0.8 103/ul Normal 0.3-0.8 [facility] Comment on above: Performed By: #### L IPA, ALLISON #### [facility] [address] [place] [address] Dr. Shilpa Beard Monocytes/100 WBC (Bld) 9.9 % Normal 1.7-12.0 [facility] Comment on above: Performed By: #### L IPA, ALLISON #### [facility] [address] [place] [address] Dr. Shilpa Beard NEUT # 4.2 103/ul Normal 1.4-6.5 [facility] Comment on above: Performed By: #### L IPA, ALLISON #### [facility] [address] [place] [address] Dr. Shilpa Beard Neutrophils/100 WBC (Bld) 51.2 % Normal 43.0-75.0 [facility] Comment on above: Performed By: #### L IPA, ALLISON #### [facility] [address] [place] [address] Dr. Shilpa Beard Platelet mean volume (Bld) [Entitic vol] 11.1 fL Normal 9.5-13.5 [facility] Comment on above: Performed By: #### L IPA, ALLISON #### [facility] [address] [place] [address] Dr. Shilpa Beard PLT 263 103/ul Normal 150-450 [facility] Comment on above: Performed By: #### L IPA, ALLISON #### [facility] [address] [place] [address] Dr. Shilpa Beard RBC 5.06 106/ul Normal 4.20-5.40 [facility] Comment on above: Performed By: #### L ALLISON WELDON #### [facility] [address] [place] [address] Dr. Shilpa Beard WBC 8.1 103/ul Normal 4.0-11.0 [facility] Comment on above: Performed By: #### L ALLISON WELDON #### [facility] [address] [address] [address] Shilpa Beard GLYCOHEMOGLOBIN A1Con 2021 ADA RECOMMENDATION ADA THERAPEUTIC TARG ET 6.0 - 7.0 ACTION SUGGESTED > 7.0 Normal [facility] Comment on above: Performed By: #### U RTPCR #### [facility] [address] [place] [address] Dr. Shilpa Beard Glucose [Mass/Vol] 186 mg/dL Normal [facility] Comment on above: Performed By: #### U RTPCR #### [facility] [address] [place] [address] Dr. Shilpa Beard HbA1c (Bld) [Mass fraction] 8.1 % Critically high <=6.0 [facility] Comment on above: Performed By: #### U RTPCR #### [facility] [address] [place] [address] Dr. Shilpa Beard LIPID PROFILEon 06-30-2021 CHOL-HDL RATIO NORM SEE BELOW Normal [facility] Comment on above: Result Comment: 3.3 - 4.4 LOW RISK 4.4 - 7.1 AVERAGE RISK 7.1 - 11.0 MODERATE RISK >11.0 HIGH RISK Performed By: #### L IPID, URIC, TSH, CMP #### [facility] [address] [place] [address] Dr. Shilpa Beard Cholesterol [Mass/Vol] 223 mg/dL Critically high <=200 [facility] Comment on above: Performed By: #### L IPID, URIC, TSH, CMP #### [facility] [address] [place] [address] Dr. Shilpa Beard Cholesterol in HDL [Mass/Vol] 31 mg/dL Critically low 40-60 [facility] Comment on above: Performed By: #### L IPID, URIC, TSH, CMP #### [facility] [address] [address] [address] Shilpa Beard Cholesterol in LDL [Mass/Vol] 143.6 mg/dL Normal [facility] Comment on above: Performed By: #### L IPID, URIC, TSH, CMP #### [facility] [address] [address] [address] Shilpa Beard Cholesterol.total/Chol esterol in HDL [Mass ratio] 7.2 {ratio} Normal [facility] Comment on above: Performed By: #### L IPID, URIC, TSH, CMP #### [facility] [address] [place] [address] Dr. Shilpa Beard HDL NORMAL > or = 60 mg/dl - LO W CARDIOVASCULAR RISK <40 mg/dl - HIGH CARDIOVASCULAR RISK Normal [facility] Comment on above: Performed By: #### L IPID, URIC, TSH, CMP #### [facility] [address] [place] [address] Dr. Shilpa Beard LDL CALC NORMAL SEE BELOW Normal [facility] Comment on above: Result Comment: <100 mg/dl OPTIMAL 100 - 129 mg/dl NEAR OR ABOVE OPTIMAL 130 - 159 mg/dl BORDERLINE HIGH 160 - 189 mg/dl HIGH >190 mg/dl VERY HIGH Performed By: #### L IPID, URIC, TSH, CMP #### [facility] [address] [place] [address] Dr. Shilap Beard Triglyceride [Mass/Vol] 242 mg/dL Critically high <=150 [facility] Comment on above: Performed By: #### L IPID, URIC, TSH, CMP #### [facility] [address] [address] [address] Shilpa Beard VLDL CALC 48.4 mg/dL Normal [facility] Comment on above: Performed By: #### L IPID, URIC, TSH, CMP #### [facility] [address] [place] [address] Dr. Shilpa Beard PROF 14(COMP METB)on 022 Albumin [Mass/Vol] 3.2 g/dL Critically low 3.4-5.0 [facility] Comment on above: Performed By: #### U RTPCR #### [facility] [address] [place] [address] Dr. Shilpa Beard Albumin/Globulin [Mass ratio] 0.7 {ratio} Normal [facility] Comment on above: Performed By: #### U RTPCR #### [facility] [address] [place] [address] Dr. Shilpa Beard ALP [Catalytic activity/Vol] 99 U/L Normal 46-116 [facility] Comment on above: Performed By: #### U RTPCR #### [facility] [address] [place] [address] Dr. Shilpa Beard ALT [Catalytic activity/Vol] 42 U/L Normal 14-59 [facility] Comment on above: Performed By: #### U RTPCR #### [facility] [address] [place] [address] Dr. Shilpa Beard Anion gap [Moles/Vol] 13.1 mmol/L Normal [facility] Comment on above: Performed By: #### U RTPCR #### [facility] [address] [place] [address] Dr. Shilpa Beard AST [Catalytic activity/Vol] 53 U/L Critically high 15-37 [facility] Comment on above: Performed By: #### U RTPCR #### [facility] [address] [place] [address] Dr. Shilpa Beard Bilirubin [Mass/Vol] 0.5 mg/dL Normal 0.2-1.3 [facility] Comment on above: Performed By: #### U RTPCR #### [facility] [address] [place] [address] Dr. Shilpa Beard Calcium [Mass/Vol] 8.8 mg/dL Normal 8.5-10.1 [facility] Comment on above: Performed By: #### U RTPCR #### [facility] [address] [place] [address] Dr. Shilpa Beard Chloride [Moles/Vol] 100 mmol/L Normal 98-107 [facility] Comment on above: Performed By: #### U RTPCR #### [facility] [address] [address] [address] Shilpa Beard CO2 [Moles/Vol] 26.7 mmol/L Normal 22.0-30.0 [facility] Comment on above: Performed By: #### U RTPCR #### [facility] [address] [address] [address] Shilpa Beard Creatinine [Mass/Vol] 1.24 mg/dL Critically high 0.52-1.04 [facility] Comment on above: Performed By: #### U RTPCR #### [facility] [address] [address] [address] Shilpa Beard EGFR-AF BURKINAN 50 mL/min/1.73m2 Critically low >=60 [facility] Comment on above: Performed By: #### U RTPCR #### [facility] [address] [place] [address] Dr. Shilpa Beard EGFR-NON AF BURKINAN 41 mL/min/1.73m2 Critically low >=60 [facility] Comment on above: Performed By: #### U RTPCR #### [facility] [address] [place] [address] Dr. Shilpa Beard Globulin (S) [Mass/Vol] 4.5 g/dL Normal [facility] Comment on above: Performed By: #### U RTPCR #### [facility] [address] [address] [address] Shilpa Beard Glucose [Mass/Vol] 193 mg/dL Critically high 74-106 [facility] Comment on above: Performed By: #### U RTPCR #### [facility] [address] [address] [address] Shilpa Beard Potassium [Moles/Vol] 4.8 mmol/L Normal 3.4-5.0 [facility] Comment on above: Performed By: #### U RTPCR #### [facility] [address] [place] [address] Dr. Shilpa Beard Protein [Mass/Vol] 7.7 g/dL Normal 6.1-8.2 [facility] Comment on above: Performed By: #### U RTPCR #### [facility] [address] [place] [address] Dr. Shilpa Beard Sodium [Moles/Vol] 135 mmol/L Critically low 137-145 [facility] Comment on above: Performed By: #### U RTPCR #### [facility] [address] [place] [address] Dr. Shilpa Beard Urea nitrogen [Mass/Vol] 30.0 mg/dL Critically high 7.0-18.0 [facility] Comment on above: Performed By: #### U RTPCR #### [facility] [address] [place] [address] Dr. Shilpa Beard Urea nitrogen/Creatinine [Mass ratio] 24.2 mg/mg Normal [facility] Comment on above: Performed By: #### U RTPCR #### [facility] [address] [place] [address] Dr. Shilpa Beard TSHon 06-30-2021 TSH 2.982 uIU/mL Normal 0.470-4.68 0 [facility] Comment on above: Performed By: #### U RTPCR #### [facility] [address] [place] [address] Dr. Shilpa Beard TSH RANGE SEE BELOW Normal [facility] Comment on above: Result Comment: <0.3 4 UIU/ml HYPERTHYROID 0.34-5.60 UIU/ml EUTHYROID >5.60 UIU/ml HYPOTHYROID Performed By: #### U RTPCR #### [facility] [address] [place] [address] Dr. Shilpa Beard URIC ACID SERUMon 06-30-2021 Urate [Mass/Vol] 7.9 mg/dL Critically high 2.5-6.2 [facility] Comment on above: Performed By: #### L IPID, URIC, TSH, CMP #### [facility] [address] [place] [address] Dr. Shilpa Beard URINE T PROTEIN CREAT RATIOo n 06-30-2021 Protein (U) [Mass/Vol] 50.5 mg/dL Critically high <=12.0 [facility] Comment on above: Performed By: #### U RTPCR #### [facility] [address] [address] [address] Shilpa Beard UR PROT CREAT RAT 0.22 Normal [facility] Comment on above: Performed By: #### U RTPCR #### [facility] [address] [address] [address] Shilpa Beard URINE CREAT 230.96 mg/dL Normal 20.00-300. 00 [facility] Comment on above: Performed By: #### U RTPCR #### [facility] [address] [address] [address] Shilpa Beard CNPTOUTREACHon 04-15-2020 CNPTOUTREA Patient Outreach ([place] OCC3) -- MOHAN ESPINOZA ([id number]) 1935 F Date Time Provider Department 04/15/20 [...] Fully Assessed Order(s):SARS-COVID VACCINE 1ST DOSE APPT [98170POH] Order #: [id number] FUTURE Prescriptions as of 04/15/2020 Sig: CLOPIDOGREL [...] (HCC) [C91.41]11/04/2015 Letter Text Encounter Status:Closed by Touchotel, MedStartrUSER on 04/18/20 Normal [facility] PROGRESSon 09-18-2019 PROGRESS HNO ID: [id number] Author: Saeid Szymanski) Thad Service: ? Author Type: Physician Type: Progress Notes Filed: 09/18/2019 4:23 PM Note Text: PATIENT NAME: Mohan Espinoza CLINIC NO.: [id number] ATTENDING PHYSICIAN: Saeid Oneil MD DATE OF SERVICE: September 18, 2019 [facility] on a follow [...] - Gout - Heart attack (HCC) 04/06/2018 [facility] - Hematuria - History of DVT [...] 09/08/2018 2.53 1.00 - 4.00 k/uL Final Dyer% Date Value Ref Range Status 09/08/2018 13.5 % Final Abs Dyer Date Value Ref Range Status 09/08/2018 0.78 [...] do not hesitate to contact me at [phone]. Saeid Oneil MD Hematology/Medical Oncology [facility] CC: Irlanda Baker MD Normal [facility] BASIC METABOLIC PANELon 03-23 Calcium [Mass/Vol] 9.1 mg/dL Normal 8.6-10.3 [facility] Comment on above: Order Comment: No: D o not add to previous draw Performed By: #### 0 0071, 84625, 89446, 38920, 37212, 79674 #### [facility] [address] [place] [address], [place] Chloride [Moles/Vol] 113 mmol/L High 98-107 [facility] Comment on above: Order Comment: No: D o not add to previous draw Performed By: #### 0 0071, 44098, 68911, 42818, 61004, 18810 #### [facility] [address] [place] [address], [place] CO2 [Moles/Vol] 26 mmol/L Normal 21-31 [facility] Comment on above: Order Comment: No: D o not add to previous draw Performed By: #### 0 0071, 66648, 92142, 64748, 88483, 86646 #### [facility] [address] [place] [address], [place] Creatinine [Mass/Vol] 0.95 mg/dL Normal 0.60-1.20 [facility] Comment on above: Order Comment: No: D o not add to previous draw Performed By: #### 0 0071, 33371, 25952, 78400, 48214, 26167 #### [facility] [address] [place] [address], [place] GFR/1.73 sq M predicted among blacks MDRD (S/P/Bld) [Vol rate/Area] mL/min/{1.73_m2} Normal >60 [facility] Comment on above: Order Comment: No: D o not add to previous draw Result Comment: Calc ulation may not be valid for patients over 70 years Performed By: #### 0 0071, 81173, 00489, 51303, 05167, 00188 #### [facility] [address] [place] [address], [facility] GFR/1.73 sq M predicted among non-blacks MDRD (S/P/Bld) [Vol rate/Area] 56 ml/min/1.73sq m Abnormal >60 [facility] Comment on above: Order Comment: No: D o not add to previous draw Result Comment: Calc ulation may not be valid for patients over 70 years Performed By: #### 0 0071, 29424, 24049, 44337, 50549, 93163 #### [facility] [address] [place] [address], [place] Glucose [Mass/Vol] 169 mg/dL High 70-100 [facility] Comment on above: Order Comment: No: D o not add to previous draw Performed By: #### 0 0071, 96697, 72609, 24933, 07599, 87484 #### [facility] [address] [place] [address], [place] Potassium [Moles/Vol] 4.5 mmol/L Normal 3.5-5.1 [facility] Comment on above: Order Comment: No: D o not add to previous draw Performed By: #### 0 0071, 66880, 59629, 26516, 12811, 36387 #### [facility] [address] [place] [address], [place] Sodium [Moles/Vol] 147 mmol/L High 136-145 [facility] Comment on above: Order Comment: No: D o not add to previous draw Performed By: #### 0 0071, 75124, 89247, 46026, 82873, 71797 #### [facility] [address] Urea nitrogen [Mass/Vol] 18 mg/dL Normal 7-25 [facility] Comment on above: Order Comment: No: D o not add to previous draw Performed By: #### 0 0071, 84047, 76035, 58275, 92929, 91274 #### [facility] [address] [place] [address], [facility] CBC W/DIFFon 04-10-2018 ABS BASOPHILS 0.1 10*3/uL Normal 0.0-0.2 [facility] Comment on above: Order Comment: No: D o not add to previous draw Performed By: #### 0 0071, 86767, 57017, 66411, 37908, 58109 #### [facility] [address] ABS IMM GRANS 0.1 10*3/uL Normal 0.0-0.2 [facility] Comment on above: Order Comment: No: D o not add to previous draw Performed By: #### 0 0071, 47158, 27522, 96835, 28107, 17146 #### [facility] [address] ABS NEUTROPHILS 2.2 10*3/uL Normal 1.6-7.6 [facility] Comment on above: Order Comment: No: D o not add to previous draw Performed By: #### 0 0071, 33588, 46423, 10529, 70636, 83071 #### [facility] [address] [place] [address], [facility] Basophils/100 WBC (Bld) 1.0 % Normal 0.0-1.0 [facility] Comment on above: Order Comment: No: D o not add to previous draw Performed By: #### 0 0071, 90611, 47728, 31940, 96201, 51542 #### [facility] [address] [place] [address], [facility] Eosinophils (Bld) [#/Vol] 0.0 10*3/uL Normal 0.0-0.5 [facility] Comment on above: Order Comment: No: D o not add to previous draw Performed By: #### 0 0071, 87564, 54796, 39964, 81710, 51325 #### [facility] [address] [place] [address], [facility] Eosinophils/100 WBC (Bld) 0.0 % Normal 0.0-6.0 [facility] Comment on above: Order Comment: No: D o not add to previous draw Performed By: #### 0 0071, 53688, 26520, 23433, 49801, 84705 #### [facility] [address] [facility] [address] Erythrocyte distribution width (RBC) [Ratio] 12.9 % Normal 11.5-15.0 [facility] Comment on above: Order Comment: No: D o not add to previous draw Performed By: #### 0 0071, 08501, 46590, 14709, 65402, 26244 #### [facility] [address] [facility] [address] Hematocrit (Bld) [Volume fraction] 35.3 % Low 36.0-45.0 [facility] Comment on above: Order Comment: No: D o not add to previous draw Performed By: #### 0 0071, 67591, 58435, 41382, 31332, 42880 #### [facility] [address] [facility] [place] [address], [facility] Hemoglobin (Bld) [Mass/Vol] 11.7 g/dL Low 12.0-15.0 [facility] Comment on above: Order Comment: No: D o not add to previous draw Performed By: #### 0 0071, 26534, 46714, 79795, 22866, 66397 #### [facility] [address] [address], [facility] IMMATURE GRANS 1.0 % Normal 0.0-1.0 [facility] Comment on above: Order Comment: No: D o not add to previous draw Performed By: #### 0 0071, 38747, 54470, 40456, 02052, 64067 #### [facility] [address] [facility] [place] [address], [facility] Lymphocytes (Bld) [#/Vol] 1.9 10*3/uL Normal 1.2-4.0 [facility] Comment on above: Order Comment: No: D o not add to previous draw Performed By: #### 0 0071, 05763, 60333, 60235, 76247, 62590 #### [facility] [address] [facility] [place] [address], [facility] Lymphocytes/100 WBC (Bld) 39.0 % Normal 20.0-45.0 [facility] Comment on above: Order Comment: No: D o not add to previous draw Performed By: #### 0 0071, 50454, 23086, 39407, 58786, 68223 #### [facility] [address] [facility] [place] [address], [facility] MCH (RBC) [Entitic mass] 29.9 pg Normal 27.0-33.0 [facility] Comment on above: Order Comment: No: D o not add to previous draw Performed By: #### 0 0071, 40617, 64631, 05443, 67512, 56574 #### [facility] [address] [facility] [place] [address], [facility] MCHC (RBC) [Mass/Vol] 33.1 g/dL Normal 32.0-35.0 [facility] Comment on above: Order Comment: No: D o not add to previous draw Performed By: #### 0 0071, 45054, 65889, 28051, 37212, 29477 #### [facility] [address] [place] [address], [facility] MCV (RBC) [Entitic vol] 90.3 fL Normal 82.0-98.0 [facility] Comment on above: Order Comment: No: D o not add to previous draw Performed By: #### 0 0071, 51070, 62370, 04140, 56360, 54304 #### [facility] [address] [place] [address], [facility] Monocytes (Bld) [#/Vol] 0.7 10*3/uL Normal 0.1-1.0 [facility] Comment on above: Order Comment: No: D o not add to previous draw Performed By: #### 0 0071, 17059, 23510, 51009, 08490, 63095 #### [facility] [address] MONOS 14.8 % High 5.0-12.0 [facility] Comment on above: Order Comment: No: D o not add to previous draw Performed By: #### 0 0071, 43316, 43086, 09866, 94042, 10169 #### [facility] [address] Neutrophils/100 WBC (Bld) 44.2 % Normal 40.0-72.0 [facility] Comment on above: Order Comment: No: D o not add to previous draw Performed By: #### 0 0071, 19219, 37832, 06393, 72958, 69592 #### [facility] [address] Nucleated RBC/100 WBC (Bld) [Ratio] 0 % Normal 0-0 [facility] Comment on above: Order Comment: No: D o not add to previous draw Performed By: #### 0 0071, 67315, 20108, 48004, 72383, 07979 #### [facility] [address] [place] [address], [facility] PLAT CNT 178 10*3/uL Normal 150-400 [facility] Comment on above: Order Comment: No: D o not add to previous draw Performed By: #### 0 0071, 59484, 82988, 27519, 93411, 18372 #### [facility] [address] [place] [address], [facility] RBC (Bld) [#/Vol] 3.91 10*6/uL Normal 3.80-5.00 [facility] Comment on above: Order Comment: No: D o not add to previous draw Performed By: #### 0 0071, 90094, 49703, 46108, 09613, 37197 #### [facility] [address] [place] [address], [facility] WBC (Bld) [#/Vol] 4.92 10*3/uL Normal 4.00-10.60 [facility] Comment on above: Order Comment: No: D o not add to previous draw Performed By: #### 0 0071, 51113, 21500, 59838, 57835, 34498 #### [facility] [address] [facility] [address] POC GLUCOSE LABon 04-10-2018 Glucose [Mass/Vol] 245 mg/dL High 70-100 [facility] Comment on above: Performed By: #### 0 0071, 79791, 87383, 35398, 00971, 07391 #### [facility] [address] [facility] [address] Glucose [Mass/Vol] 220 mg/dL High 70-100 [facility] Comment on above: Performed By: #### 0 0071, 00844, 12068, 48450, 70099, 81960 #### [facility] [address] [facility]. [address] PROTHROMBIN TIMEon 9 INR Coag (PPP) [Relative time] 1.84 {INR} High 0.91-1.16 [facility] Comment on above: Result Comment: ACCC [...] CHEST 1995;108:231S-246S. Performed By: #### 0 0071, 72338, 22609, 67625, 23578, 59394 #### [facility] [address] PT Coag (PPP) [Time] 21.3 s High 12.3-14.8 [facility] Comment on above: Result Comment: ALL RESULTS MUST BE INTERPRETED WITH RESPECT TO BLOOD DRAWING ARTIFACT OR DILUTION ERROR OF ANTICOAGULANT AT THE TIME OF SAMPLING. Performed By: #### 0 0071, 99044, 34925, 81305, 99908, 71951 #### [facility] [address] BASIC METABOLIC PANELon 03-22 Calcium [Mass/Vol] 8.5 mg/dL Low 8.6-10.3 [facility] Comment on above: Order Comment: No: D o not add to previous draw Performed By: #### 0 0071, 69202, 82002, 53734, 35853, 91033 #### [facility] [address] [place] [address], [facility] Chloride [Moles/Vol] 104 mmol/L Normal 98-107 [facility] Comment on above: Order Comment: No: D o not add to previous draw Performed By: #### 0 0071, 50982, 24507, 83920, 07783, 34931 #### [facility] [address] [place] [address], [place] CO2 [Moles/Vol] 24 mmol/L Normal 21-31 [facility] Comment on above: Order Comment: No: D o not add to previous draw Performed By: #### 0 0071, 43884, 11488, 69186, 83812, 40192 #### [facility] [address] [place] [address], [place] Creatinine [Mass/Vol] 0.90 mg/dL Normal 0.60-1.20 [facility] Comment on above: Order Comment: No: D o not add to previous draw Performed By: #### 0 0071, 97641, 14802, 23591, 67241, 43870 #### [facility] [address] [place] [address], [place] GFR/1.73 sq M predicted among blacks MDRD (S/P/Bld) [Vol rate/Area] mL/min/{1.73_m2} Normal >60 [facility] Comment on above: Order Comment: No: D o not add to previous draw Result Comment: Calc ulation may not be valid for patients over 70 years Performed By: #### 0 0071, 30568, 98960, 67591, 35915, 71527 #### [facility] [address] [place] [address], [place] GFR/1.73 sq M predicted among non-blacks MDRD (S/P/Bld) [Vol rate/Area] mL/min/{1.73_m2} Normal >60 [facility] Comment on above: Order Comment: No: D o not add to previous draw Result Comment: Calc ulation may not be valid for patients over 70 years Performed By: #### 0 0071, 47469, 12483, 12242, 76663, 53739 #### [facility] [address] [place] [address], [place] Glucose [Mass/Vol] 173 mg/dL High 70-100 [facility] Comment on above: Order Comment: No: D o not add to previous draw Performed By: #### 0 0071, 69860, 09080, 03502, 56103, 74892 #### [facility] [address] [place] [address], [facility] Potassium [Moles/Vol] 4.1 mmol/L Normal 3.5-5.1 [facility] Comment on above: Order Comment: No: D o not add to previous draw Performed By: #### 0 0071, 34689, 55431, 66693, 72507, 75967 #### [facility] [address] [place] [address], [facility] Sodium [Moles/Vol] 136 mmol/L Normal 136-145 [facility] Comment on above: Order Comment: No: D o not add to previous draw Performed By: #### 0 0071, 54017, 83161, 64211, 43338, 04445 #### [facility] [address] [place] [address], [facility] Urea nitrogen [Mass/Vol] 21 mg/dL Normal 7-25 [facility] Comment on above: Order Comment: No: D o not add to previous draw Performed By: #### 0 0071, 03034, 98835, 12383, 79111, 92723 #### [facility] [address] [place] [address], [facility] CBC COMPLETE BLOOD COUNTon 0 - Erythrocyte distribution width (RBC) [Ratio] 12.9 % Normal 11.5-15.0 [facility] Comment on above: Order Comment: No: D o not add to previous draw Performed By: #### 0 0071, 92542, 92762, 15146, 59682, 84122 #### [facility] [address] [place] [address], [facility] Hematocrit (Bld) [Volume fraction] 35.1 % Low 36.0-45.0 [facility] Comment on above: Order Comment: No: D o not add to previous draw Performed By: #### 0 0071, 72065, 92072, 72915, 70753, 49867 #### [facility] [address] [facility] [place] [address], [facility] Hemoglobin (Bld) [Mass/Vol] 11.4 g/dL Low 12.0-15.0 [facility] Comment on above: Order Comment: No: D o not add to previous draw Performed By: #### 0 0071, 51453, 30839, 18888, 98544, 55210 #### [facility] [address] [facility] [place] [address], [facility] MCH (RBC) [Entitic mass] 29.8 pg Normal 27.0-33.0 [facility] Comment on above: Order Comment: No: D o not add to previous draw Performed By: #### 0 0071, 27709, 94440, 45743, 49597, 25282 #### [facility] [address] MCHC (RBC) [Mass/Vol] 32.5 g/dL Normal 32.0-35.0 [facility] Comment on above: Order Comment: No: D o not add to previous draw Performed By: #### 0 0071, 31238, 86797, 50302, 54009, 76282 #### [facility] [address] [facility] [place] [address], [facility] MCV (RBC) [Entitic vol] 91.9 fL Normal 82.0-98.0 [facility] Comment on above: Order Comment: No: D o not add to previous draw Performed By: #### 0 0071, 75006, 33789, 02038, 54198, 78117 #### [facility] [address] [place] [address], [facility] Nucleated RBC/100 WBC (Bld) [Ratio] 0 % Normal 0-0 [facility] Comment on above: Order Comment: No: D o not add to previous draw Performed By: #### 0 0071, 64030, 28180, 50525, 35081, 99805 #### [facility] [address] [place] [address], [facility] PLAT CNT 171 10*3/uL Normal 150-400 [facility] Comment on above: Order Comment: No: D o not add to previous draw Performed By: #### 0 0071, 99633, 98290, 55490, 91009, 13604 #### [facility] [address] RBC (Bld) [#/Vol] 3.82 10*6/uL Normal 3.80-5.00 [facility] Comment on above: Order Comment: No: D o not add to previous draw Performed By: #### 0 0071, 30384, 82437, 72026, 26904, 64620 #### [facility] [address] WBC (Bld) [#/Vol] 5.35 10*3/uL Normal 4.00-10.60 [facility] Comment on above: Order Comment: No: D o not add to previous draw Performed By: #### 0 0071, 42903, 36914, 48739, 79561, 01398 #### [facility] [address] Cardiovascular Lab Reporton 04-09-2018 Cardiovascular Lab Report [facility] Patient Name: Mohan Espinoza [facility] MR #: [id number] Physician: Jane Rodriguez Department of Kalen Randolph Medicine Service Date: 04/08/2018 Division of Birthdate: 1935 Cardiology Room #: [id number] Adult Cardiovascular Services [place] [address] Cardiovascular Laboratory Report CARDIAC CATHETERIZATION REPORT INDICATION: The patient is an 82-year-old woman with coronary artery disease status post bypass surgery in the past. She is admitted with a urinary tract infection and mzj-IM-anqccjw elevation myocardial infarction. She was referred for [...] informed consent. She was brought to laboratory secretary in a fasting state. The right groin area was prepped and draped in usual fashion. Using micropuncture technique, the right common femoral artery was accessed. The inner cannula was advanced and the right femoral angiography was performed followed by upsizing to a 6-Chadian x 11 cm sheath. Bilateral selective coronary angiography was then performed using 6-Chadian JL4 and JR4 diagnostic catheters. A 6-Chadian AR2 diagnostic catheter was used to selectively engage the saphenous venous graft to the obtuse marginal branch and right coronary artery and the radial graft to the diagonal branch. Angiography was performed. Catheter was removed. A 6-Chadian FRANCES diagnostic catheter was used to selectively engage the left subclavian artery and then selectively engage. The left internal mammary artery angiography was performed. Catheter was removed. Heparin was administered intravenously and therapeutic ACT confirmed during the procedure. A 6-Chadian JR4 guiding catheter was advanced and used to engage the right coronary ostium. A ShareMagnetwater wire was advanced into the distal RCA, balloon angioplasty in the distal RCA was performed using Emerge 2.5 x 15 mm balloon inflated at 12 atmospheres. The balloon was brought backwards to the mid RCA and used to perform balloon angioplasty. Additional balloon dilatation was then performed using a NC Quantum Purling 2.5 x 8 mm balloon inflated at [...] 32 mm drug-eluting stent deployed in the rldpjvka-yn-yhp RCA at 11 atmospheres. Following that, NC Quantum Purling 2.5 x 8 mm noncompliant balloon was advanced into the distal stent and used to perform postdilatation at 16 atmospheres followed by postdilatation using NC Quantum Purling 3.0 x 8 mm balloon inflated at 18 atmospheres in the distal stent of the mid segment followed by additional postdilatation using NC Quantum Purling 3.0 x 20 mm noncompliant balloon inflated at 18 atmospheres in the pkvbuzvf-zr-wik segment stent. Intracoronary nitroglycerin 100 mcg was administered followed by final angiography, which showed excellent result with reduction of the stenosis to 0%. No evidence of dissection or perforation. The guiding catheter was removed. Procedure was concluded. The right femoral arteriotomy was managed with a 6-Chadian Angio-Seal device with good hemostasis. She tolerated [...] throughout its course reaching 99% in the iouiswog-od-ygz segment. Another lesion was 90% in the gsm-lr-wsuedk segment and then this was followed by [...] graft to the PDA). 3. 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 Date Trans: 04/09/2018 06:33 Luna/alli [id number] cc: Romario Baker M.D. [address] [place] [address], [place] [address] Robert Tompkins M.D. [address] [place] [address] Normal [facility] MAGNESIUM BLOODon 04-09-2018 Magnesium [Mass/Vol] 1.6 mg/dL Low 1.9-2.7 [facility] Comment on above: Order Comment: No: D o not add to previous draw Performed By: #### 0 0071, 02384, 18458, 07014, 55271, 79054 #### [facility] [address] [place] [address], [place] POC GLUCOSE LABon 04-09-2018 Glucose [Mass/Vol] 253 mg/dL High 70-100 [facility] Comment on above: Performed By: #### 0 0071, 88006, 74977, 83875, 48449, 33787 #### [facility] [address] [place] [address], [place] Glucose [Mass/Vol] 161 mg/dL High 70-100 [facility] Comment on above: Performed By: #### 0 0071, 68563, 49428, 19741, 73859, 47209 #### [facility] [address] [place] [address], [place] Glucose [Mass/Vol] 244 mg/dL High 70-100 [facility] Comment on above: Performed By: #### 0 0071, 56710, 23498, 98954, 23237, 04707 #### [facility] [address] [place] [address], [place] Glucose [Mass/Vol] 175 mg/dL High 70-100 [facility] Comment on above: Performed By: #### 0 0071, 81048, 44101, 53987, 86651, 12668 #### [facility] [address] [place] [address], [place] PROTHROMBIN TIMEon 9 INR Coag (PPP) [Relative time] 1.72 {INR} High 0.91-1.16 [facility] Comment on above: Result Comment: ACCC [...] CHEST 1995;108:231S-246S. Performed By: #### 0 0071, 98342, 64544, 90269, 15237, 10758 #### [facility] [address] PT Coag (PPP) [Time] 20.2 s High 12.3-14.8 [facility] Comment on above: Result Comment: ALL RESULTS MUST BE INTERPRETED WITH RESPECT TO BLOOD DRAWING ARTIFACT OR DILUTION ERROR OF ANTICOAGULANT AT THE TIME OF SAMPLING. Performed By: #### 0 0071, 16942, 37705, 96614, 76661, 56781 #### [facility] [address] BASIC METABOLIC PANELon 03-22 Calcium [Mass/Vol] 9.1 mg/dL Normal 8.6-10.3 [facility] Comment on above: Order Comment: No: D o not add to previous draw Performed By: #### 0 0071, 71775, 56183, 97356, 86695, 51391 #### [facility] [address] Chloride [Moles/Vol] 103 mmol/L Normal 98-107 [facility] Comment on above: Order Comment: No: D o not add to previous draw Performed By: #### 0 0071, 20679, 51691, 68869, 00011, 71139 #### [facility] [address] [place] [address], [facility] CO2 [Moles/Vol] 24 mmol/L Normal 21-31 [facility] Comment on above: Order Comment: No: D o not add to previous draw Performed By: #### 0 0071, 37769, 76123, 79507, 78691, 38003 #### [facility] [address] [place] [address], [facility] Creatinine [Mass/Vol] 0.95 mg/dL Normal 0.60-1.20 [facility] Comment on above: Order Comment: No: D o not add to previous draw Performed By: #### 0 0071, 47663, 91317, 12694, 78576, 77056 #### [facility] [address] [facility] [place] [address], [facility] GFR/1.73 sq M predicted among blacks MDRD (S/P/Bld) [Vol rate/Area] mL/min/{1.73_m2} Normal >60 [facility] Comment on above: Order Comment: No: D o not add to previous draw Result Comment: Calc ulation may not be valid for patients over 70 years Performed By: #### 0 0071, 07364, 75849, 67364, 10195, 98712 #### [facility] [address] [facility] [place] [address], [facility] GFR/1.73 sq M predicted among non-blacks MDRD (S/P/Bld) [Vol rate/Area] 56 ml/min/1.73sq m Abnormal >60 [facility] Comment on above: Order Comment: No: D o not add to previous draw Result Comment: Calc ulation may not be valid for patients over 70 years Performed By: #### 0 0071, 02998, 95862, 77145, 51089, 30120 #### [facility] [address] [place] [address], [place] Glucose [Mass/Vol] 158 mg/dL High 70-100 [facility] Comment on above: Order Comment: No: D o not add to previous draw Performed By: #### 0 0071, 42060, 63255, 21816, 02881, 86469 #### [facility] [address] [place] [id number], [facility] Potassium [Moles/Vol] 4.3 mmol/L Normal 3.5-5.1 [facility] Comment on above: Order Comment: No: D o not add to previous draw Performed By: #### 0 0071, 88799, 47027, 81493, 72950, 60283 #### [facility] [address] [place] [address], [facility] Sodium [Moles/Vol] 134 mmol/L Low 136-145 [facility] Comment on above: Order Comment: No: D o not add to previous draw Performed By: #### 0 0071, 98023, 97323, 01975, 65521, 17124 #### [facility] [address] [place] [id number], [facility] Urea nitrogen [Mass/Vol] 24 mg/dL Normal 7-25 [facility] Comment on above: Order Comment: No: D o not add to previous draw Performed By: #### 0 0071, 64787, 04189, 81982, 62590, 43542 #### [facility] [address] [place] [id number], [facility] CBC COMPLETE BLOOD COUNTon 0 - Erythrocyte distribution width (RBC) [Ratio] 13.0 % Normal 11.5-15.0 [facility] Comment on above: Order Comment: No: D o not add to previous draw Performed By: #### 0 0071, 97519, 41106, 79302, 90673, 22679 #### [facility] [address] [place] [address], [facility] Hematocrit (Bld) [Volume fraction] 38.4 % Normal 36.0-45.0 [facility] Comment on above: Order Comment: No: D o not add to previous draw Performed By: #### 0 0071, 05347, 55843, 87369, 96760, 40025 #### [facility] [address] [place] [id number], [facility] Hemoglobin (Bld) [Mass/Vol] 12.7 g/dL Normal 12.0-15.0 [facility] Comment on above: Order Comment: No: D o not add to previous draw Performed By: #### 0 0071, 07373, 57710, 03742, 02187, 64221 #### [facility] [address] [place] [address], [facility] MCH (RBC) [Entitic mass] 30.4 pg Normal 27.0-33.0 [facility] Comment on above: Order Comment: No: D o not add to previous draw Performed By: #### 0 0071, 05718, 75912, 08507, 46635, 62687 #### [facility] [address] [place] [address], [facility] MCHC (RBC) [Mass/Vol] 33.1 g/dL Normal 32.0-35.0 [facility] Comment on above: Order Comment: No: D o not add to previous draw Performed By: #### 0 0071, 25982, 21511, 94616, 80264, 09872 #### [facility] [address] [place] [address], [facility] MCV (RBC) [Entitic vol] 91.9 fL Normal 82.0-98.0 [facility] Comment on above: Order Comment: No: D o not add to previous draw Performed By: #### 0 0071, 23002, 52769, 47291, 95006, 33294 #### [facility] [address] [place] [address], [facility] Nucleated RBC/100 WBC (Bld) [Ratio] 0 % Normal 0-0 [facility] Comment on above: Order Comment: No: D o not add to previous draw Performed By: #### 0 0071, 30890, 82203, 32735, 31658, 13616 #### [facility] [address] [place] [address], [facility] PLAT CNT 164 10*3/uL Normal 150-400 [facility] Comment on above: Order Comment: No: D o not add to previous draw Performed By: #### 0 0071, 10640, 98398, 14913, 57200, 19143 #### [facility] [address] [place] [address], [facility] RBC (Bld) [#/Vol] 4.18 10*6/uL Normal 3.80-5.00 [facility] Comment on above: Order Comment: No: D o not add to previous draw Performed By: #### 0 0071, 79632, 11781, 65502, 02386, 25853 #### [facility] [address] [facility]. [address] WBC (Bld) [#/Vol] 6.62 10*3/uL Normal 4.00-10.60 [facility] Comment on above: Order Comment: No: D o not add to previous draw Performed By: #### 0 0071, 21961, 17644, 16251, 07981, 63064 #### [facility] [address] [facility]. [address] MAGNESIUM BLOODon 04-08-2018 Magnesium [Mass/Vol] 1.9 mg/dL Normal 1.9-2.7 [facility] Comment on above: Order Comment: No: D o not add to previous draw Performed By: #### 0 0071, 28365, 19383, 15311, 13485, 27040 #### [facility] [address] POC GLUCOSE LABon 04-08-2018 Glucose [Mass/Vol] 199 mg/dL High 70-100 [facility] Comment on above: Performed By: #### 0 0071, 49327, 16019, 43839, 22548, 11527 #### [facility] [address] [place] [address], [facility] Glucose [Mass/Vol] 198 mg/dL High 70-100 [facility] Comment on above: Performed By: #### 0 0071, 04561, 90781, 96782, 10590, 12106 #### [facility] [address] [place] [address], [facility] Glucose [Mass/Vol] 155 mg/dL High 70-100 [facility] Comment on above: Performed By: #### 0 0071, 86016, 63183, 21677, 52430, 14546 #### [facility] [address] [place] [address], [facility] PROTHROMBIN TIMEon 9 INR Coag (PPP) [Relative time] 1.68 {INR} High 0.91-1.16 [facility] Comment on above: Result Comment: [...] CHEST 1995;108:231S-246S. Performed By: #### 0 0071, 69358, 44610, 16084, 04118, 89553 #### [facility] [address] [facility] [place] [address], [facility] PT Coag (PPP) [Time] 19.9 s High 12.3-14.8 [facility] Comment on above: Result Comment: ALL RESULTS MUST BE INTERPRETED WITH RESPECT TO BLOOD DRAWING ARTIFACT OR DILUTION ERROR OF ANTICOAGULANT AT THE TIME OF SAMPLING. Performed By: #### 0 0071, 85647, 32134, 96146, 22088, 71367 #### [facility] [address] [facility] [address] *RAPID FLU AANDB BY MOLECULA Nikolas 04-07-2018 *RAPID FLU AANDB BY MOLECULAR Clinical Report: (D) Specimen: NASAL SWAB Collected: 04/06/2018 22:10 Status: Final Last Updated: 04/06/2018 23:10 FLUA RNA (Final) Negative FLUB RNA (Final) Negative Normal [facility] Comment on above: Performed By: #### 0 0071, 47024, 36035, 97395, 77918, 21776 #### [facility] [address] BASIC METABOLIC PANELon 03-22 Calcium [Mass/Vol] 8.3 mg/dL Low 8.6-10.3 [facility] Comment on above: Order Comment: No: D o not add to previous draw Performed By: #### 0 0071, 88925, 75422, 55380, 55721, 06925 #### [facility] [address] [facility] [place] [address], [facility] Chloride [Moles/Vol] 105 mmol/L Normal 98-107 [facility] Comment on above: Order Comment: No: D o not add to previous draw Performed By: #### 0 0071, 77002, 76412, 48014, 64266, 42472 #### [facility] [address] [facility] [place] [address], [facility] CO2 [Moles/Vol] 24 mmol/L Normal 21-31 [facility] Comment on above: Order Comment: No: D o not add to previous draw Performed By: #### 0 0071, 18960, 39369, 27880, 01480, 36558 #### [facility] [address] [place] [address], [facility] Creatinine [Mass/Vol] 1.24 mg/dL High 0.60-1.20 [facility] Comment on above: Order Comment: No: D o not add to previous draw Performed By: #### 0 0071, 46282, 63371, 78110, 32194, 01327 #### [facility] [address] [place] [address], [facility] GFR/1.73 sq M predicted among blacks MDRD (S/P/Bld) [Vol rate/Area] 50 ml/min/1.73sq m Abnormal >60 [facility] Comment on above: Order Comment: No: D o not add to previous draw Result Comment: Calc ulation may not be valid for patients over 70 years Performed By: #### 0 0071, 58704, 30345, 98148, 33369, 79071 #### [facility] [address] [place] [address], [facility] GFR/1.73 sq M predicted among non-blacks MDRD (S/P/Bld) [Vol rate/Area] 42 ml/min/1.73sq m Abnormal >60 [facility] Comment on above: Order Comment: No: D o not add to previous draw Result Comment: Calc ulation may not be valid for patients over 70 years Performed By: #### 0 0071, 38882, 36939, 63836, 77095, 16345 #### [facility] [address] [place] [address], [place] Glucose [Mass/Vol] 166 mg/dL High 70-100 [facility] Comment on above: Order Comment: No: D o not add to previous draw Performed By: #### 0 0071, 67046, 59383, 89863, 96060, 51041 #### [facility] [address] Potassium [Moles/Vol] 4.2 mmol/L Normal 3.5-5.1 [facility] Comment on above: Order Comment: No: D o not add to previous draw Performed By: #### 0 0071, 06054, 21335, 62672, 50831, 44740 #### [facility] [address] [place] [address], [facility] Sodium [Moles/Vol] 135 mmol/L Low 136-145 [facility] Comment on above: Order Comment: No: D o not add to previous draw Performed By: #### 0 0071, 67169, 30711, 78622, 56236, 53976 #### [facility] [address] [facility] [place] [address], [facility] Urea nitrogen [Mass/Vol] 33 mg/dL High 7-25 [facility] Comment on above: Order Comment: No: D o not add to previous draw Performed By: #### 0 0071, 45872, 77699, 66003, 38907, 24103 #### [facility] [address] [facility] [place] [address], [facility] CBC W/DIFFon 04-07-2018 ABS BASOPHILS 0.1 10*3/uL Normal 0.0-0.2 [facility] Comment on above: Order Comment: No: D o not add to previous draw Performed By: #### 0 0071, 10709, 39230, 27105, 71816, 27808 #### [facility] [address] [place] [address], [facility] ABS IMM GRANS 0.1 10*3/uL Normal 0.0-0.2 [facility] Comment on above: Order Comment: No: D o not add to previous draw Performed By: #### 0 0071, 76383, 47463, 93503, 04409, 93396 #### [facility] [address] [place] [address], [facility] ABS NEUTROPHILS 6.4 10*3/uL Normal 1.6-7.6 [facility] Comment on above: Order Comment: No: D o not add to previous draw Performed By: #### 0 0071, 42133, 63515, 96581, 65471, 91798 #### [facility] [address] [place] [address], [facility] Basophils/100 WBC (Bld) 0.5 % Normal 0.0-1.0 [facility] Comment on above: Order Comment: No: D o not add to previous draw Performed By: #### 0 0071, 52898, 31739, 34410, 03476, 22852 #### [facility] [address] [facility] [place] [address], [facility] Eosinophils (Bld) [#/Vol] 0.0 10*3/uL Normal 0.0-0.5 [facility] Comment on above: Order Comment: No: D o not add to previous draw Performed By: #### 0 0071, 53577, 39898, 30182, 27173, 72301 #### [facility] [address] [facility] [place] [address], [facility] Eosinophils/100 WBC (Bld) 0.0 % Normal 0.0-6.0 [facility] Comment on above: Order Comment: No: D o not add to previous draw Performed By: #### 0 0071, 26769, 36785, 47521, 07977, 93951 #### [facility] [address] [facility] [place] [address], [facility] Erythrocyte distribution width (RBC) [Ratio] 13.2 % Normal 11.5-15.0 [facility] Comment on above: Order Comment: No: D o not add to previous draw Performed By: #### 0 0071, 62653, 69176, 20146, 99611, 08771 #### [facility] [address] [place] [address], [place] Hematocrit (Bld) [Volume fraction] 35.0 % Low 36.0-45.0 [facility] Comment on above: Order Comment: No: D o not add to previous draw Performed By: #### 0 0071, 49954, 76653, 35759, 86419, 49682 #### [facility] [address] Hemoglobin (Bld) [Mass/Vol] 11.4 g/dL Low 12.0-15.0 [facility] Comment on above: Order Comment: No: D o not add to previous draw Performed By: #### 0 0071, 96868, 25022, 40786, 72552, 72186 #### [facility] [address] IMMATURE GRANS 0.5 % Normal 0.0-1.0 [facility] Comment on above: Order Comment: No: D o not add to previous draw Performed By: #### 0 0071, 97057, 02181, 85715, 03001, 23113 #### [facility] [address] Lymphocytes (Bld) [#/Vol] 2.1 10*3/uL Normal 1.2-4.0 [facility] Comment on above: Order Comment: No: D o not add to previous draw Performed By: #### 0 0071, 18478, 39150, 46918, 34865, 35031 #### [facility] [address] Lymphocytes/100 WBC (Bld) 21.7 % Normal 20.0-45.0 [facility] Comment on above: Order Comment: No: D o not add to previous draw Performed By: #### 0 0071, 49986, 26021, 97257, 95334, 96662 #### [facility] [address] [place] [address], [facility] MCH (RBC) [Entitic mass] 29.8 pg Normal 27.0-33.0 [facility] Comment on above: Order Comment: No: D o not add to previous draw Performed By: #### 0 0071, 88591, 33529, 15322, 18058, 40598 #### [facility] [address] MCHC (RBC) [Mass/Vol] 32.6 g/dL Normal 32.0-35.0 [facility] Comment on above: Order Comment: No: D o not add to previous draw Performed By: #### 0 0071, 19536, 69818, 65135, 44378, 42186 #### [facility] [address] MCV (RBC) [Entitic vol] 91.4 fL Normal 82.0-98.0 [facility] Comment on above: Order Comment: No: D o not add to previous draw Performed By: #### 0 0071, 50405, 81298, 47252, 62404, 70319 #### [facility] [address] Monocytes (Bld) [#/Vol] 1.0 10*3/uL Normal 0.1-1.0 [facility] Comment on above: Order Comment: No: D o not add to previous draw Performed By: #### 0 0071, 88737, 80887, 89226, 03517, 49754 #### [facility] [address] MONOS 10.6 % Normal 5.0-12.0 [facility] Comment on above: Order Comment: No: D o not add to previous draw Performed By: #### 0 0071, 89718, 35233, 58134, 06522, 13040 #### [facility] [address] Neutrophils/100 WBC (Bld) 66.7 % Normal 40.0-72.0 [facility] Comment on above: Order Comment: No: D o not add to previous draw Performed By: #### 0 0071, 77049, 44624, 98115, 89577, 79116 #### [facility] [address] [place] [address], [facility] Nucleated RBC/100 WBC (Bld) [Ratio] 0 % Normal 0-0 [facility] Comment on above: Order Comment: No: D o not add to previous draw Performed By: #### 0 0071, 44265, 94539, 48156, 53274, 17647 #### [facility] [address] [facility] [place] [address], [facility] PLAT CNT 150 10*3/uL Normal 150-400 [facility] Comment on above: Order Comment: No: D o not add to previous draw Performed By: #### 0 0071, 23716, 07419, 06956, 08517, 80317 #### [facility] [address] [facility] [place] [address], [facility] RBC (Bld) [#/Vol] 3.83 10*6/uL Normal 3.80-5.00 [facility] Comment on above: Order Comment: No: D o not add to previous draw Performed By: #### 0 0071, 71374, 69502, 75569, 83032, 98476 #### [facility] [address] [facility] [place] [address], [facility] WBC (Bld) [#/Vol] 9.53 10*3/uL Normal 4.00-10.60 [facility] Comment on above: Order Comment: No: D o not add to previous draw Performed By: #### 0 0071, 53396, 78064, 60362, 14560, 86997 #### [facility] [address] [facility] [place] [address], [facility] MAGNESIUM BLOODon 04-07-2018 Magnesium [Mass/Vol] 1.4 mg/dL Low 1.9-2.7 [facility] Comment on above: Order Comment: No: D o not add to previous draw Performed By: #### 0 0071, 20156, 34964, 23387, 09458, 04196 #### [facility] [address] [place] [address], [facility] PHOSPHORUS BLOODon 9 Phosphate [Mass/Vol] 2.6 mg/dL Normal 2.5-5.0 [facility] Comment on above: Order Comment: No: D o not add to previous draw Performed By: #### 0 0071, 20744, 56813, 03000, 00084, 60413 #### [facility] [address] [place] [address], [facility] POC GLUCOSE LABon 04-07-2018 Glucose [Mass/Vol] 187 mg/dL High 70-100 [facility] Comment on above: Performed By: #### 0 0071, 58062, 54897, 81707, 28615, 29112 #### [facility] [address] [place] [address], [place] Glucose [Mass/Vol] 182 mg/dL High 70-100 [facility] Comment on above: Performed By: #### 0 0071, 60871, 08447, 17716, 46235, 26147 #### [facility] [address] [place] [address], [place] Glucose [Mass/Vol] 156 mg/dL High 70-100 [facility] Comment on above: Performed By: #### 0 0071, 64421, 35552, 68062, 67084, 94542 #### [facility] [address] [facility] [address], [place] Glucose [Mass/Vol] 148 mg/dL High 70-100 [facility] Comment on above: Performed By: #### 0 0071, 38002, 47460, 97486, 42527, 34187 #### [facility] [address] [place] [address], [place] PROTHROMBIN TIMEon 9 INR Coag (PPP) [Relative time] 1.65 {INR} High 0.91-1.16 [facility] Comment on above: Result Comment: [facility] P RECOMMENDED INR FOR WARFARIN THERAPY --------- [...] CHEST 1995;108:231S-246S. Performed By: #### 0 0071, 97780, 13984, 85608, 99682, 79204 #### [facility] [address] [place] [address], [facility] PT Coag (PPP) [Time] 19.6 s High 12.3-14.8 [facility] Comment on above: Result Comment: ALL RESULTS MUST BE INTERPRETED WITH RESPECT TO BLOOD DRAWING ARTIFACT OR DILUTION ERROR OF ANTICOAGULANT AT THE TIME OF SAMPLING. Performed By: #### 0 0071, 43646, 75868, 66900, 22488, 03209 #### [facility] [address] [place] [address], [place] INR Coag (PPP) [Relative time] 1.68 {INR} High 0.91-1.16 [facility] Comment on above: Result Comment: [facility] P RECOMMENDED INR FOR WARFARIN THERAPY --------- [...] CHEST 1995;108:231S-246S. Performed By: #### 0 0071, 59457, 41834, 07256, 54404, 14852 #### [facility] [address] PT Coag (PPP) [Time] 19.9 s High 12.3-14.8 [facility] Comment on above: Result Comment: ALL RESULTS MUST BE INTERPRETED WITH RESPECT TO BLOOD DRAWING ARTIFACT OR DILUTION ERROR OF ANTICOAGULANT AT THE TIME OF SAMPLING. Performed By: #### 0 0071, 78661, 94075, 97923, 48399, 64518 #### [facility] [address] TROPONIN-Ion 04-07-2018 Troponin I.cardiac [Mass/Vol] 0.15 ng/mL Critically high 0.00-0.04 [facility] Comment on above: Order Comment: No: D o not add to previous draw Result Comment: M-LA EVIOUS CRITICAL RESULT REFERENCE RANGES: 0.00 - 0.04 ng/ml NORMAL 0.05 - 0.50 ng/ml INDETERMINATE > 0.50 ng/ml CONSISTENT WITH AN M.I. Performed By: #### 0 0071, 99997, 86743, 74172, 07556, 60573 #### [facility] [address] [facility] [place] [address], [facility] Troponin I.cardiac [Mass/Vol] 0.17 ng/mL Critically high 0.00-0.04 [facility] Comment on above: Result Comment: M-LA EVIOUS CRITICAL RESULT REFERENCE RANGES: 0.00 - 0.04 ng/ml NORMAL 0.05 - 0.50 ng/ml INDETERMINATE > 0.50 ng/ml CONSISTENT WITH AN M.I. Performed By: #### 0 0071, 29058, 31472, 34055, 29586, 44249 #### [facility] [address] Troponin I.cardiac [Mass/Vol] 0.20 ng/mL Critically high 0.00-0.04 [facility] Comment on above: Order Comment: No: D o not add to previous draw Result Comment: M-LA EVIOUS CRITICAL RESULT REFERENCE RANGES: 0.00 - 0.04 ng/ml NORMAL 0.05 - 0.50 ng/ml INDETERMINATE > 0.50 ng/ml CONSISTENT WITH AN M.I. Performed By: #### 0 0071, 21168, 20696, 24379, 67045, 52436 #### [facility] [address] [place] [address], [facility] URINALYSIS REFLEXon 04-07-19 19 Appearance (U) SL CLOUDY Abnormal CLEAR [facility] Comment on above: Order Comment: No: D o not add to previous draw Performed By: #### 0 0071, 53194, 31557, 85362, 93060, 89412 #### [facility] [address] [place] [address], [facility] Bilirubin [Mass/Vol] Negative Normal NEGATIVE [facility] Comment on above: Order Comment: No: D o not add to previous draw Performed By: #### 0 0071, 59621, 37029, 87678, 92527, 63395 #### [facility] [address] [place] [address], [facility] BLOOD Negative Normal NEGATIVE [facility] Comment on above: Order Comment: No: D o not add to previous draw Performed By: #### 0 0071, 03763, 42293, 61327, 93893, 64572 #### [facility] [address] [place] [address], [facility] Color (U) YELLOW Normal YELLOW [facility] Comment on above: Order Comment: No: D o not add to previous draw Performed By: #### 0 [id number], [id number], [id number], [id number], [id number], [id number] #### [facility] [address] [place] [address], [facility] EPIS MANY Abnormal FEW,OCC,NO NE SEEN [facility] Comment on above: Order Comment: No: D o not add to previous draw Performed By: #### 0 [id number], 67269, 13220, 90766, 55030, 60701 #### [facility] [address] [facility] [place] [address], [facility] Glucose [Mass/Vol] Negative Normal NEGATIVE [facility] Comment on above: Order Comment: No: D o not add to previous draw Performed By: #### 0 0071, 79097, 53798, 52329, 33708, 69815 #### [facility] [address] [facility] [place] [address], [facility] KETONE Negative Normal NEGATIVE [facility] Comment on above: Order Comment: No: D o not add to previous draw Performed By: #### 0 0071, 39502, 98327, 19031, 74060, 38331 #### [facility] [address] [facility] [address], [facility] LEUK LIYAH MODERATE Abnormal NEGATIVE [facility] Comment on above: Order Comment: No: D o not add to previous draw Performed By: #### 0 0071, 08957, 43798, 56709, 41822, 65278 #### [facility] [address] [facility] [address], [facility] Nitrite Ql (U) Negative Normal NEGATIVE [facility] Comment on above: Order Comment: No: D o not add to previous draw Performed By: #### 0 0071, 40871, 21472, 45180, 46057, 44164 #### [facility] [address] [place] [address], [facility] pH (Bld) 5.0 Normal 5.0-8.0 [facility] Comment on above: Order Comment: No: D o not add to previous draw Performed By: #### 0 0071, 29386, 02128, 38619, 94660, 82339 #### [facility] [address] [place] [address], [facility] Protein (U) [Mass/Vol] Negative Normal NEGATIVE [facility] Comment on above: Order Comment: No: D o not add to previous draw Performed By: #### 0 0071, 98561, 44762, 45985, 10753, 94318 #### [facility] [address] [place] [address], [facility] RBC (U) [#/Vol] 0-2 Abnormal NONE SEEN [facility] Comment on above: Order Comment: No: D o not add to previous draw Performed By: #### 0 0071, 14502, 54339, 57562, 47525, 39139 #### [facility] [address] [facility] [place] [address], [facility] SPEC GRAV 1.019 Normal 1.015-1.02 0 [facility] Comment on above: Order Comment: No: D o not add to previous draw Performed By: #### 0 0071, 36376, 32035, 58006, 10709, 73872 #### [facility] [address] [facility] [place] [address], [facility] WBC UA 11-20 Abnormal NONE SEEN [facility] Comment on above: Order Comment: No: D o not add to previous draw Performed By: #### 0 0071, 54734, 77799, 63344, 38255, 67695 #### [facility] [address] [place] [address], [facility] *A-LEGIONELLA AG URon 2018 DIRECT EXAM test. Normal [facility] Comment on above: Order Comment: No: D o not add to previous draw [place] Normal [facility] Comment on above: Order Comment: No: D o not add to previous draw REPORT STATUS FINAL 04/07/2018 Normal [facility] Comment on above: Order Comment: No: D o not add to previous draw *BLOOD CULTUREon 04-06-2018 Bacteria identified Cx Nom (Bld) Clinical Report: (D) Specimen: BLOOD CULTURE Collected: 04/06/2018 19:35 Status: Final Last Updated: 04/12/2018 07:54 (1) x 2 Prior to Antibiotic Administration CULT RES (Final) No Growth Day 5 Normal [facility] Comment on above: Order Comment: No: D o not add to previous draw Performed By: #### 0 0071, 68443, 71655, 95360, 01034, 70565 #### [facility] [address] [place] [address], [facility] Bacteria identified Cx Nom (Bld) Clinical Report: (D) Specimen: BLOOD CULTURE Collected: 04/06/2018 19:34 Status: Final Last Updated: 04/12/2018 07:54 (1) x 2 Prior to Antibiotic Administration CULT RES (Final) No Growth Day 5 Normal [facility] Comment on above: Order Comment: No: D o not add to previous draw Performed By: #### 0 0071, 81186, 33198, 96826, 63837, 58124 #### [facility] [address] [place] [address], [facility] BASIC METABOLIC PANELon 03-22 Calcium [Mass/Vol] 8.5 mg/dL Low 8.6-10.3 [facility] Comment on above: Order Comment: No: D o not add to previous draw Performed By: #### 0 0071, 60085, 25470, 96340, 55044, 88174 #### [facility] [address] [place] [address], [facility] Chloride [Moles/Vol] 104 mmol/L Normal 98-107 [facility] Comment on above: Order Comment: No: D o not add to previous draw Performed By: #### 0 0071, 63062, 45591, 79237, 14553, 31411 #### [facility] [address] [place] [address], [facility] CO2 [Moles/Vol] 22 mmol/L Normal 21-31 [facility] Comment on above: Order Comment: No: D o not add to previous draw Performed By: #### 0 0071, 34856, 91752, 69331, 87928, 04440 #### [facility] [address] [place] [address], [facility] Creatinine [Mass/Vol] 1.41 mg/dL High 0.60-1.20 [facility] Comment on above: Order Comment: No: D o not add to previous draw Performed By: #### 0 0071, 25033, 42999, 20914, 83086, 33026 #### [facility] [address] [place] [address], [facility] GFR/1.73 sq M predicted among blacks MDRD (S/P/Bld) [Vol rate/Area] 44 ml/min/1.73sq m Abnormal >60 [facility] Comment on above: Order Comment: No: D o not add to previous draw Result Comment: Calc ulation may not be valid for patients over 70 years Performed By: #### 0 0071, 74005, 52366, 10864, 54665, 87357 #### [facility] [address] [place] [address], [facility] GFR/1.73 sq M predicted among non-blacks MDRD (S/P/Bld) [Vol rate/Area] 36 ml/min/1.73sq m Abnormal >60 [facility] Comment on above: Order Comment: No: D o not add to previous draw Result Comment: Calc ulation may not be valid for patients over 70 years Performed By: #### 0 0071, 09499, 12332, 15896, 41433, 33265 #### [facility] [address] [place] [address], [place] Glucose [Mass/Vol] 198 mg/dL High 70-100 [facility] Comment on above: Order Comment: No: D o not add to previous draw Performed By: #### 0 0071, 27885, 56268, 96216, 18623, 33613 #### [facility] [address] Potassium [Moles/Vol] 4.7 mmol/L Normal 3.5-5.1 [facility] Comment on above: Order Comment: No: D o not add to previous draw Performed By: #### 0 0071, 49677, 76521, 13048, 93258, 89904 #### [facility] [address] Sodium [Moles/Vol] 135 mmol/L Low 136-145 [facility] Comment on above: Order Comment: No: D o not add to previous draw Performed By: #### 0 0071, 12688, 09531, 31011, 60911, 64851 #### [facility] [address] Urea nitrogen [Mass/Vol] 34 mg/dL High 7-25 [facility] Comment on above: Order Comment: No: D o not add to previous draw Performed By: #### 0 0071, 27435, 70486, 15179, 33317, 72559 #### [facility] [address] [facility] [place] [address], [facility] CBC W/DIFFon 04-06-2018 ABS BASOPHILS 0.1 10*3/uL Normal 0.0-0.2 [facility] Comment on above: Performed By: #### 5 0103 #### [facility] [address] ABS IMM GRANS 0.1 10*3/uL Normal 0.0-0.2 [facility] Comment on above: Performed By: #### 5 0103 #### [facility] [address] [facility]. [place] [id number], [facility] ABS NEUTROPHILS 11.3 10*3/uL High 1.6-7.6 [facility] Comment on above: Performed By: #### 5 0103 #### [facility] [address] [place] [address], [facility] Basophils/100 WBC (Bld) 0.3 % Normal 0.0-1.0 [facility] Comment on above: Performed By: #### 5 0103 #### [facility] [address] [place] [id number], [facility] Eosinophils (Bld) [#/Vol] 0.0 10*3/uL Normal 0.0-0.5 [facility] Comment on above: Performed By: #### 5 0103 #### [facility] [address] [place] [address], [facility] Eosinophils/100 WBC (Bld) 0.0 % Normal 0.0-6.0 [facility] Comment on above: Performed By: #### 5 0103 #### [facility] [address] [facility] [place] [address], [facility] Erythrocyte distribution width (RBC) [Ratio] 13.1 % Normal 11.5-15.0 [facility] Comment on above: Performed By: #### 5 0103 #### [facility] [address] [facility] [place] [id number], [facility] Hematocrit (Bld) [Volume fraction] 38.9 % Normal 36.0-45.0 [facility] Comment on above: Performed By: #### 5 0103 #### [facility] [address] [facility] [place] [id number], [facility] Hemoglobin (Bld) [Mass/Vol] 12.7 g/dL Normal 12.0-15.0 [facility] Comment on above: Performed By: #### 5 0103 #### [facility] [address] IMMATURE GRANS 0.3 % Normal 0.0-1.0 [facility] Comment on above: Performed By: #### 5 0103 #### [facility] [address] Lymphocytes (Bld) [#/Vol] 1.8 10*3/uL Normal 1.2-4.0 [facility] Comment on above: Performed By: #### 5 0103 #### [facility] [address] Lymphocytes/100 WBC (Bld) 12.2 % Low 20.0-45.0 [facility] Comment on above: Performed By: #### 5 3 #### [facility] [address] MCH (RBC) [Entitic mass] 30.5 pg Normal 27.0-33.0 [facility] Comment on above: Performed By: #### 5 3 #### [facility] [address] MCHC (RBC) [Mass/Vol] 32.6 g/dL Normal 32.0-35.0 [facility] Comment on above: Performed By: #### 5 3 #### [facility] [address] MCV (RBC) [Entitic vol] 93.3 fL Normal 82.0-98.0 [facility] Comment on above: Performed By: #### 5 3 #### [facility] [address] [place] [address], [facility] Monocytes (Bld) [#/Vol] 1.2 10*3/uL High 0.1-1.0 [facility] Comment on above: Performed By: #### 5 3 #### [facility] [address] [place] [address], [facility] MONOS 8.4 % Normal 5.0-12.0 [facility] Comment on above: Performed By: #### 5 0103 #### [facility] [address] [facility] [place] [address], [facility] Neutrophils/100 WBC (Bld) 78.8 % High 40.0-72.0 [facility] Comment on above: Performed By: #### 5 0103 #### [facility] [address] [place] [address], [facility] Nucleated RBC/100 WBC (Bld) [Ratio] 0 % Normal 0-0 [facility] Comment on above: Performed By: #### 5 0103 #### [facility] [address] [facility] [place] [address], [facility] PLAT CNT 156 10*3/uL Normal 150-400 [facility] Comment on above: Performed By: #### 5 0103 #### [facility] [address] [place] [address], [facility] RBC (Bld) [#/Vol] 4.17 10*6/uL Normal 3.80-5.00 [facility] Comment on above: Performed By: #### 5 0103 #### [facility] [address] [facility] [place] [address], [facility] WBC (Bld) [#/Vol] 14.33 10*3/uL High 4.00-10.60 [facility] Comment on above: Performed By: #### 5 102 #### [facility] [address] [place] [address], [facility] CHEST AND LATERALon 04-06-19 19 CHEST AND LATERAL [facility] Department of Radiology [address] [place] [phone] Patient Name: MOHAN ESPINOZA : 1935 Sex: F Age: Race: White Pt. Location: [id number] Patient Status: I Ordered Date: 04/06/2018 6:20:00 [...] findings. Electronically signed by:Ronna Villalobos. Transcribed by: [email or web address], User Resident: MURTAZA VILLAGRAN Electronically Signed by: RONNA VILLALOBOS @ 04/07/2018 09:13 AM I personally read this/these film(s) with this resident Normal [facility] Comment on above: Order Comment: No: D o not add to previous draw DIGOXINon 04-06-2018 Digoxin [Mass/Vol] 0.7 ng/mL Normal 0.7-2.0 [facility] Comment on above: Performed By: #### 0 0071, 51298, 34762, 75704, 71295, 97607 #### [facility] [address] [place] [address], [facility] LIVER BATTERYon 04-06-2018 Albumin [Mass/Vol] 3.4 g/dL Low 3.5-5.7 [facility] Comment on above: Order Comment: No: D o not add to previous draw Performed By: #### 0 0071, 42831, 38720, 45118, 44840, 36299 #### [facility] [address] [place] [address], [facility] ALKALINE PHOSPH 50 IU/L Normal 34-104 [facility] Comment on above: Order Comment: No: D o not add to previous draw Performed By: #### 0 0071, 22529, 84166, 69896, 50709, 98318 #### [facility] [address] [place] [address], [facility] ALT [Catalytic activity/Vol] 16 U/L Normal 7-52 [facility] Comment on above: Order Comment: No: D o not add to previous draw Performed By: #### 0 0071, 75369, 53358, 10488, 49191, 24267 #### [facility] [address] [place] [address], [facility] AST [Catalytic activity/Vol] 17 U/L Normal 13-39 [facility] Comment on above: Order Comment: No: D o not add to previous draw Performed By: #### 0 0071, 04624, 45057, 35243, 71513, 94758 #### [facility] [address] [place] [address], [place] Bilirubin [Mass/Vol] 0.5 mg/dL Normal 0.3-1.0 [facility] Comment on above: Order Comment: No: D o not add to previous draw Performed By: #### 0 0071, 95111, 32162, 06433, 12654, 16160 #### [facility] [address] [place] [address], [facility] Bilirubin.direct [Mass/Vol] 0.1 mg/dL Normal 0.0-0.2 [facility] Comment on above: Order Comment: No: D o not add to previous draw Performed By: #### 0 0071, 73215, 69265, 70202, 00531, 45460 #### [facility] [address] [place] [address], [facility] Protein [Mass/Vol] 6.2 g/dL Normal 6.0-8.3 [facility] Comment on above: Order Comment: No: D o not add to previous draw Performed By: #### 0 0071, 39938, 68048, 48610, 31485, 19955 #### [facility] [address] [facility] [place] [address], [facility] MAGNESIUM BLOODon 04-06-2018 Magnesium [Mass/Vol] 1.3 mg/dL Low 1.9-2.7 [facility] Comment on above: Order Comment: No: D o not add to previous draw Performed By: #### 0 0071, 03986, 59425, 84383, 15219, 24583 #### [facility] [address] [facility] [address], [facility] PHOSPHORUS BLOODon 9 Phosphate [Mass/Vol] 2.6 mg/dL Normal 2.5-5.0 [facility] Comment on above: Order Comment: No: D o not add to previous draw Performed By: #### 0 0071, 85195, 36541, 80612, 42157, 72232 #### [facility] [address] [place] [address], [facility] POC GLUCOSE LABon 04-06-2018 Glucose [Mass/Vol] 172 mg/dL High 70-100 [facility] Comment on above: Performed By: #### 8 5499 #### [facility] [address] [place] [address], [facility] PROCALCITONINon 04-06-2018 PROCALCITONIN 2.61 ng/mL Critically high 0.00-0.10 [facility] Comment on above: Order Comment: Yes: [...] 2034 Performed By: #### 3 1488 #### [facility] [address] [place] [address], [facility] SEPSIS LACTATE W/REFLEXon Lactate [Moles/Vol] 1.4 mmol/L Normal 0.5-2.2 [facility] Comment on above: Order Comment: No: D o not add to previous draw Performed By: #### 3 1414 #### [facility] [address] [place], [place] [id number] [place] [address] TROPONIN-Ion 04-06-2018 Troponin I.cardiac [Mass/Vol] 0.23 ng/mL Critically high 0.00-0.04 [facility] Comment on above: Order Comment: No: D o not add to previous draw 1756- PATIENT DOES NOT HAVE I.D. BAND YET -TECH BM 1824- NO I.D. BAND YET -TECH GC Result Comment: M-CR ITICAL RESULT(S) REVIEWED, CALLED TO AND READ BACK BY LAURA VITAL RN AT 2109 REFERENCE RANGES: 0.00 - 0.04 ng/ml NORMAL 0.05 - 0.50 ng/ml INDETERMINATE > 0.50 ng/ml CONSISTENT WITH AN M.I. Performed By: #### 0 0071, 34884, 01299, 13676, 61311, 95336 #### [facility] [address] [place] [address], [facility] CRPon 11-05-2017 CRP mass conc 4.0 mg/dL High <=1.9 [facility] Comment on above: Performed By: #### 2 [id number] ####[facility] [address] [place] [address] Vital Signs Date Time Vital Sign Value Performing Clinician Facility 08-29-2024 10:40-0400 Body temperature 98.1 [degF] Ирина Brown ASSISTANT ACTIVITIES DIRECTOR Work Phone: [facility] 08-29-2024 10:40-0400 Diastolic blood pressure 80 mm[Hg] Ирина Brown ASSISTANT ACTIVITIES DIRECTOR Work Phone: [facility] 08-29-2024 10:40-0400 Heart rate 83 /min Ирина Brown ASSISTANT ACTIVITIES DIRECTOR Work Phone: [facility] 08-29-2024 10:40-0400 Respiratory rate 18 /min Ирина Brown ASSISTANT ACTIVITIES DIRECTOR Work Phone: [facility] 08-29-2024 10:40-0400 SaO2% (BldA) [Mass fraction] 96 % Ирина Brown ASSISTANT ACTIVITIES DIRECTOR Work Phone: [facility] 08-29-2024 10:40-0400 Systolic blood pressure 118 mm[Hg] Иринаluna Santanaholz ASSISTANT ACTIVITIES DIRECTOR Work Phone: [facility] 05-25-2024 10:29-0500 Body height 172.7 cm Ирина Maxholz ASSISTANT ACTIVITIES DIRECTOR Work Phone: [facility] 05-25-2024 10:29-0500 Body mass index (BMI) [Ratio] 41.36 kg/m2 Ирина Dorethahholz ASSISTANT ACTIVITIES DIRECTOR Work Phone: [facility] 05-25-2024 10:29-0500 Body temperature 97.59 [degF] Ирина Dorethahholz ASSISTANT ACTIVITIES DIRECTOR Work Phone: [facility] 05-25-2024 10:29-0500 Body weight 123.38 kg Ирина Maxholz ASSISTANT ACTIVITIES DIRECTOR Work Phone: [facility] 05-25-2024 10:29-0500 Diastolic blood pressure 72 mm[Hg] Ирина Dorethahholz ASSISTANT ACTIVITIES DIRECTOR Work Phone: [facility] 05-25-2024 10:29-0500 Heart rate 94 /min Ирина Dorethahholz ASSISTANT ACTIVITIES DIRECTOR Work Phone: [facility] 05-25-2024 10:29-0500 Respiratory rate 22 /min Ирина Maxholz ASSISTANT ACTIVITIES DIRECTOR Work Phone: [facility] 05-25-2024 10:29-0500 SaO2% (BldA) [Mass fraction] 98 % Ирина Maxholz ASSISTANT ACTIVITIES DIRECTOR Work Phone: [facility] 05-25-2024 10:29-0500 Systolic blood pressure 128 mm[Hg] Ирина Aichholz ASSISTANT ACTIVITIES DIRECTOR Work Phone: [facility] 01-25-2024 08:54-0500 Body height 172.7 cm Emilie Meza ASSISTANT ACTIVITIES DIRECTOR Work Phone: [facility] 01-25-2024 08:54-0500 Body temperature 97 [degF] Emilie Meza ASSISTANT ACTIVITIES DIRECTOR Work Phone: [facility] 01-25-2024 08:54-0500 Diastolic blood pressure 82 mm[Hg] Emilie Meza ASSISTANT ACTIVITIES DIRECTOR Work Phone: [facility] 01-25-2024 08:54-0500 Heart rate 76 /min Emilie Meza ASSISTANT ACTIVITIES DIRECTOR Work Phone: [facility] 01-25-2024 08:54-0500 Respiratory rate 18 /min Emilie Meza ASSISTANT ACTIVITIES DIRECTOR Work Phone: [facility] 01-25-2024 08:54-0500 SaO2% (BldA) [Mass fraction] 94 % Emilie Meza ASSISTANT ACTIVITIES DIRECTOR Work Phone: [facility] 01-25-2024 08:54-0500 Systolic blood pressure 118 mm[Hg] Emilie Meza ASSISTANT ACTIVITIES DIRECTOR Work Phone: [facility] 01-10-2024 11:08-0400 Body temperature 97 [degF] Emilie Meza ASSISTANT ACTIVITIES DIRECTOR Work Phone: [facility] 01-10-2024 11:08-0400 Diastolic blood pressure 68 mm[Hg] Emilie Meza ASSISTANT ACTIVITIES DIRECTOR Work Phone: [facility] 01-10-2024 11:08-0400 Heart rate 85 /min Emilie Meza ASSISTANT ACTIVITIES DIRECTOR Work Phone: [facility] 01-10-2024 11:08-0400 SaO2% (BldA) [Mass fraction] 94 % Emilie Meza ASSISTANT ACTIVITIES DIRECTOR Work Phone: [facility] 01-10-2024 11:08-0400 Systolic blood pressure 140 mm[Hg] Emilie Meza ASSISTANT ACTIVITIES DIRECTOR Work Phone: [facility] 12-28-2023 08:00-0400 Body temperature 98.4 [degF] DO Ren Madleinealirio Work Phone: [facility] 12-28-2023 08:00-0400 Diastolic blood pressure 80 mm[Hg] DO Ren Correangs Work Phone: [facility] 12-28-2023 08:00-0400 Heart rate 80 /min DO Ren Madelinengs Work Phone: [facility] 12-28-2023 08:00-0400 Respiratory rate 18 /min DO Ren Correangs Work Phone: [facility] 12-28-2023 08:00-0400 SaO2% (BldA) [Mass fraction] 96 % DO Ren Correangs Work Phone: [facility] 12-28-2023 08:00-0400 Systolic blood pressure 155 mm[Hg] DO Ren Correangs Work Phone: [facility] 12-28-2023 06:00-0400 Body weight 132.9 kg DO Ren Correangs Work Phone: [facility] 12-25-2023 11:58-0400 Body height 172.72 cm DO Ren Correangs Work Phone: [facility] 07-01-2022 09:34-0400 Body height 172.72 cm Shaikh Birgitwwad Work Phone: [facility] [address] DO Work Phone: 07-01-2022 09:34-0400 Body mass index (BMI) [Ratio] Patient Reason Not Done Good Fawwad Work Phone: [facility] [address] DO Work Phone: 07-01-2022 09:34-0400 Diastolic blood pressure 66 mm[Hg] Good Fawwad Work Phone: [facility] [address] DO Work Phone: 07-01-2022 09:34-0400 Heart rate 68 /min Good Fawwad Work Phone: [facility] [address] DO Work Phone: 07-01-2022 09:34-0400 Systolic blood pressure 106 mm[Hg] Shaikh Marion Work Phone: [facility] DO Work Phone: 07-01-2022 09:34-0400 16 1 Shaikh Marion Work Phone: [facility] DO Work Phone: Comment on above: PHQ-9 TS 06-23-2022 11:26-0400 Body temperature 97.4 [degF] MD Shaikh Schultz Work Phone: [facility] 06-23-2022 11:26-0400 Diastolic blood pressure 69 mm[Hg] MD Shaikh Schultz Work Phone: [facility] 06-23-2022 11:26-0400 Heart rate 100 /min MD Shaikh Schultz Work Phone: [facility] 06-23-2022 11:26-0400 Respiratory rate 18 /min MD Shaikh Schultz Work Phone: [facility] 06-23-2022 11:26-0400 SaO2% (BldA) [Mass fraction] 96 % MD Shaikh Schultz Work Phone: [facility] 06-23-2022 11:26-0400 Systolic blood pressure 123 mm[Hg] MD Shaikh Schultz Work Phone: [facility] 06-23-2022 08:03-0400 Inhaled oxygen flow rate 1 L/min MD Shaikh Schultz Work Phone: [facility] 06-23-2022 06:00-0400 Body weight 136.4 kg MD Shaikh Schultz Work Phone: [facility] 06-22-2022 14:39-0400 Body height 172.72 cm MD Shaikh Schultz Work Phone: [facility] 06-22-2022 00:00-0400 45 1 Shaikh Marion Work Phone: [facility] DO Work Phone: Comment on above: [id number] Encounters Encounter Date Encounter Type Care Provider Facility Start: 08-29-2024 End: 08-29-2024 Bamboo flowsheet Ирина Brown ASSISTANT ACTIVITIES DIRECTOR Work Phone: [facility] Start: 08-29-2024 End: 08-29-2024 Bamboo flowsheet Ирина Brown ASSISTANT ACTIVITIES DIRECTOR Work Phone: [facility] Start: 08-29-2024 End: 08-29-2024 Patient encounter procedure Ирина Brown ASSISTANT ACTIVITIES DIRECTOR Work Phone: [facility] Comment on above: Medicare annual well ness visit, subsequent (Primary Dx); Type 2 diabetes mellitus with stage 3b chronic kidney disease, without long-term current use of insulin ([facility]) ([facility]); Morbid (severe) obesity due to excess calories ([facility]); Acquired hypothyroidism ([facility]); Essential hypertension ([facility]); Chronic diastolic (congestive) heart failure; 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 ([facility]); Type 2 diabetes mellitus with diabetic polyneuropathy, without long-term current use of insulin ([facility]); Hypomagnesemia Start: 08-29-2024 End: 08-29-2024 ambulatory ИРИНА AICHHOLZ Not Available Start: 07-10-2024 End: 07-10-2024 Refill Fabricio Edouard MD Work Phone: [facility] Comment on above: Unspecified atrial f ibrillation ([facility]/HCC) Start: 07-06-2024 End: 07-08-2024 Clinisync Result Encounter Generic External Data Provider [facility] External Department Unsolicited Start: 07-06-2024 End: 07-08-2024 Clinisync Result Encounter Generic External Data Provider [facility] External Department Unsolicited Start: 07-06-2024 End: 07-06-2024 ambulatory Alfonso Bailey Mireille Facility:[facility] Start: 07-06-2024 End: 07-06-2024 Departed Referred Emilie Meza ASSISTANT ACTIVITIES DIRECTOR-C Work Phone: [facility] Start: 05-25-2024 End: 05-25-2024 Bamboo flowsheet Ирина Brown ASSISTANT ACTIVITIES DIRECTOR Work Phone: [facility] Start: 05-25-2024 End: 05-25-2024 Bamboo flowsheet Ирина Brown ASSISTANT ACTIVITIES DIRECTOR Work Phone: [facility] Start: 05-25-2024 End: 05-25-2024 Office outpatient visit 25 minutes Ирина Brown NP Work Phone: [facility] Comment on above: 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) (Primary Dx); 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/HCC); Chronic diastolic (congestive) heart failure ([facility]/HCC); Chronic kidney disease, stage 3b (HCC) ([facility]/HCC); Type 2 diabetes mellitus with diabetic polyneuropathy ([facility]/HCC); 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 elsewhere ([facility]/HCC); Chronic lymphocytic leukemia of B-cell type not having achieved remission ([facility]/HCC); Hairy cell leukemia, in remission ([facility]/HCC); Unspecified atrial fibrillation ([facility]/HCC); Morbid (severe) obesity due to excess calories ([facility]/HCC); Body mass index (BMI) 40.0-44.9, adult (CMS/HCC); Cardiomyopathy, ischemic (CMS/HCC); 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 ([facility]/HCC); Essential hypertension (CMS/HCC); Acquired hypothyroidism (CMS/HCC); Factor V Leiden mutation ([facility]/HCC); Statin intolerance; Hyperuricemia without signs of inflammatory arthritis and tophaceous disease Start: 05-25-2024 End: 05-25-2024 ambulatory ИРИНА BROWN Not Available Start: 04-17-2024 End: 04-17-2024 Clinisync Result Encounter Emilie Meza ASSISTANT ACTIVITIES DIRECTOR Work Phone: [facility] External Department Unsolicited Start: 04-17-2024 End: 04-17-2024 Clinisync Result Encounter Emilie Meza ASSISTANT ACTIVITIES DIRECTOR Work Phone: [facility] External Department Unsolicited Start: 04-05-2024 End: 04-05-2024 Refill Emilie Meza ASSISTANT ACTIVITIES DIRECTOR Work Phone: [facility] Comment on above: Type 2 diabetes mary itus without complications (CMS/HCC) Start: 02-28-2024 End: 02-28-2024 Refill Emilie Alberstk ASSISTANT ACTIVITIES DIRECTOR Work Phone: [facility] Comment on above: 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; Type 2 diabetes mellitus without complications (CMS/HCC) 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) Hypothyroidism, unsp ecified (CMS/HCC); Unspecified atrial fibrillation (CMS/HCC) Start: 01-25-2024 End: 01-25-2024 Bamboo flowsheet Emilie Meza ASSISTANT ACTIVITIES DIRECTOR Work Phone: [facility] Start: 01-25-2024 End: 01-25-2024 Bamboo flowsheet Emilie Meza ASSISTANT ACTIVITIES DIRECTOR Work Phone: [facility] Start: 01-25-2024 End: 01-25-2024 Office outpatient visit 15 minutes Emilie Meza ASSISTANT ACTIVITIES DIRECTOR Work Phone: [facility] Comment on above: 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, without long-term current use of insulin (HCC) (CMS/HCC) (Primary Dx); Essential hypertension (CMS/HCC); Acquired hypothyroidism (CMS/HCC); Need for influenza vaccination Start: 01-25-2024 End: 01-25-2024 ambulatory EMILIE MEZA Not Available Start: 01-10-2024 End: 01-10-2024 Transitional care manage srvc 14 day discharge Emilie Willsonzpatrick ASSISTANT ACTIVITIES DIRECTOR Work Phone: [facility] Comment on above: Longstanding persist ent atrial fibrillation (CMS/HCC) (Primary Dx) Start: 01-10-2024 End: 01-10-2024 ambulatory EMILIE MEZA Not Available Start: 12-28-2023 End: 12-28-2023 Refill Emilie Meza ASSISTANT ACTIVITIES DIRECTOR Work Phone: [facility] Comment on above: Unspecified atrial f ibrillation (CMS/HCC) Start: 12-25-2023 End: 12-28-2023 Evaluation and management of inpatient DO Ren Correaalirio Work Phone: [facility] Work Phone: Start: 10-25-2023 End: 10-25-2023 ambulatory EMILIE MEZA Not Available Start: 10-19-2023 End: 10-19-2023 ambulatory JOSELUIS CASEY [facility] Ambulatory Start: 04-12-2023 Patient encounter procedure Emilie Echevarriapatrick ASSISTANT ACTIVITIES DIRECTOR Work Phone: [facility] Start: 09-30-[address] Joseluis Casey Facility: Start: 09-11-2022 Rx Renewal Shaikh Marion Work Phone: [facility] DO Work Phone: Start: 07-27-2022 ambulatory JOSELUIS CASEY Facilit y:[id number] Start: 07-23-2022 ambulatory JOSELUIS CASEY Facilit y:[id number] Start: 07-01-2022 Office outpatient vi sit 40 minutes Shaikh Marion Work Phone: [facility] DO Work Phone: Start: 07-01-[address] Shaikh Schultz Facil ity: Start: 06-29-2022 End: 06-29-2022 ambulatory MD Shaikh Schultz Work Phone: [facility] Work Phone: Start: 06-29-2022 End: 06-29-2022 Departed Referred MD Shaikh Schultz Work Phone: [facility] Work Phone: Start: 06-23-[address] Joseluis Casey Facility:[id number] Start: 06-22-[address] Joseluis Casey Fac ility:[id number] Start: 06-22-2022 End: 06-23-2022 Evaluation and management of inpatient MD Shaikh Schultz Work Phone: [facility] Work Phone: Start: 06-22-[address] Joseluis Casey Facility:[id number] Start: 06-21-2022 End: 06-22-[address] JAYY BAIRES . Facility:H1 Start: 12-29-2021 End: 12-30-2021 ambulatory SHAIKH Guillermo SCHULTZ Facility:H1 Start: 09-29-2021 End: 09-30-2021 ambulatory SHAIKH Guillermo CSHULTZ Facility:H1 Start: 06-30-2021 End: 07-01-2021 ambulatory SHAIKH Guillermo SCHULTZ Facility: Start: 04-06-2018 End: 04-10-2018 Evaluation and management of inpatient DAVE MACDONALD Facility:[facility] Start: 11-05-2017 End: 11-06-2017 Patient encounter Darrian Benton Facility:[facility] Procedures Date Procedure Procedure Detail Performing Clinician Start: 08-29-2024 Hemoglobin glycosyla ruma a1c Ирина Kevin ASSISTANT ACTIVITIES DIRECTOR Work Phone: Start: 07-06-2024 URINE CULTURE - [facility] Ge neric External Data Provider Start: 04-17-2024 ALL CBC WITH AUTO DIFF Emilie Meza ASSISTANT ACTIVITIES DIRECTOR Work Phone: Start: 12-26-2023 Duplex scan of lower limb veins DO Ren Mohan Work Phone: Start: 12-26-2023 Plain chest X-ray DO Lou Mohan Work Phone: Start: 12-25-2023 Respiratory Panel (PCR) DO Ren Mohan Work Phone: Start: 02-09-2022 History of coronary artery bypass grafting History of coronary artery bypass graft Emilie Meza NP Work Phone: Start: 03-22-2019 Total colonoscopy Shaik guillermo Marion Work Phone: Start: 04-08-2018 DILATION OF 1 COR AR T WITH 3 DRUG-ELUT, PERC APPROACH JANE V MOUKARBEL Start: 04-08-2018 FLUOROSCOPY OF L INT MAMM GRAFT USING OTH CONTRAST JANE V MOUKARBEL Start: 04-08-2018 FLUOROSCOPY OF MULT COR A GRAFT USING OTH CONTRAST JANE V MOUKARBEL Start: 04-08-2018 FLUOROSCOPY OF MULTI PLE CORONARY ARTERIES USING OTH CONTRAST JANE Carie MOUKARBEL Appendectomy Shaikh Marion Work Phone: History of coronary artery bypass grafting History of coronary artery bypass graft Shaikh Marion Work Phone: History of placement of stent for coronary artery disease History of heart artery stent MD Shaikh Schultz Work Phone: Comment on above: March 2018- 3 sten ts placed at [facility] List clean-up per request of Phys. EHR Cmte Insertion of inferio r vena caval filter Shaikh Marion Work Phone: Plan of Treatment Date Care Activity Detail Author Start: 10-03-2025 Glaucoma screening Diabetes: R etinopathy Screening [facility] Start: 09-04-2025 End: 09-04-2025 Patient encounter procedure 09/04/2025 10:00 AM EDT Office Visit [facility] [address] [place] [id number] Ирина Brown NP [address] [place] [address] [facility] Start: 08-29-2025 Medicare Annual Well ness (AWV) Medicare Annual Wellness (AWV) [facility] Start: 04-17-2025 Urine screening for protein Diabetes: Urine Protein Screening [facility] Start: 11-29-2024 Hemoglobin A1c measurement Diabetes: Hemoglobin A1C [facility] Start: 10-31-2024 End: 10-31-2024 Patient encounter procedure 10/31/2024 9:20 AM EDT Office Visit [facility] [address] [place] [address] Ирина Brown NP [address] [place] [id number] [facility] Start: 09-19-2024 End: 08-29-2025 Magnesium [Mass/volume] in Serum or Plasma Magnesium Lab Routine Hypomagnesemia Expected: 09/19/2024 (Approximate), Expires: 08/29/2025 [facility] Comment on above: Expected: 09/19/2024 (Approximate), Expires: 08/29/2025 Start: 08-29-2024 End: 08-29-2025 CBC W Auto Differential panel - Blood CBC and differential Lab Routine Type 2 diabetes mellitus with stage 3b chronic kidney disease, without long-term current use of insulin (HCC) ([facility]) Expected: 08/29/2024 (Approximate), Expires: 08/29/2025 [facility] Work Phone: Comment on above: Expected: 08/29/2024 (Approximate), Expires: 08/29/2025 Start: 08-29-2024 End: 08-29-2025 Comprehensive metabolic 2000 panel - Serum or Plasma Comprehensive metabolic panel Lab Routine Essential hypertension ([facility]/HCC) Chronic diastolic (congestive) heart failure 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 ([facility]/HCC) Type 2 diabetes mellitus with diabetic polyneuropathy, without long-term current use of insulin ([facility]/HCC) Expected: 08/29/2024 (Approximate), Expires: 08/29/2025 [facility] Comment on above: Expected: 08/29/2024 (Approximate), Expires: 08/29/2025 Start: 08-29-2024 End: 08-29-2025 Ferritin [Mass/volume] in Serum or Plasma Ferritin Lab Routine Type 2 diabetes mellitus with stage 3b chronic kidney disease, without long-term current use of insulin (HCC) ([facility]) Expected: 08/29/2024 (Approximate), Expires: 08/29/2025 [facility] Comment on above: Expected: 08/29/2024 (Approximate), Expires: 08/29/2025 Start: 08-29-2024 End: 08-29-2025 Iron + transferrin + TIBC Iron + transferrin + TIBC Lab Routine Type 2 diabetes mellitus with stage 3b chronic kidney disease, without long-term current use of insulin (HCC) ([facility]) Expected: 08/29/2024 (Approximate), Expires: 08/29/2025 [facility] Comment on above: Expected: 08/29/2024 (Approximate), Expires: 08/29/2025 Start: 08-29-2024 End: 08-29-2025 Lipid 1996 panel - Serum or Plasma Lipid panel Lab Routine 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 ([facility]) Expected: 08/29/2024 (Approximate), Expires: 08/29/2025 [facility] Comment on above: Expected: 08/29/2024 (Approximate), Expires: 08/29/2025 Start: 08-29-2024 End: 08-29-2025 Magnesium [Mass/volume] in Serum or Plasma Magnesium Lab Routine Type 2 diabetes mellitus with stage 3b chronic kidney disease, without long-term current use of insulin (HCC) ([facility]) Expected: 08/29/2024 (Approximate), Expires: 08/29/2025 [facility] Comment on above: Expected: 08/29/2024 (Approximate), Expires: 08/29/2025 Start: 08-29-2024 End: 08-29-2025 Parathyrin.intact [Mass/volume] in Serum or Plasma PTH, intact Lab Routine Type 2 diabetes mellitus with stage 3b chronic kidney disease, without long-term current use of insulin (HCC) ([facility]/HCC) Expected: 08/29/2024 (Approximate), Expires: 08/29/2025 [facility] Comment on above: Expected: 08/29/2024 (Approximate), Expires: 08/29/2025 Start: 08-29-2024 End: 08-29-2025 Phosphate [Moles/volume] in Serum or Plasma Phosphorus Lab Routine Type 2 diabetes mellitus with stage 3b chronic kidney disease, without long-term current use of insulin (HCC) ([facility]/HCC) Expected: 08/29/2024 (Approximate), Expires: 08/29/2025 [facility] Comment on above: Expected: 08/29/2024 (Approximate), Expires: 08/29/2025 Start: 08-29-2024 End: 08-29-2025 Urinalysis complete panel - Urine Urinalysis with reflex microscopic (clean catch) Lab Routine Type 2 diabetes mellitus with stage 3b chronic kidney disease, without long-term current use of insulin (HCC) ([facility]) Essential hypertension ([facility]) Type 2 diabetes mellitus with diabetic polyneuropathy, without long-term current use of insulin ([facility]/HCC) Expected: 08/29/2024 (Approximate), Expires: 08/29/2025 [facility] Comment on above: Expected: 08/29/2024 (Approximate), Expires: 08/29/2025 Start: 08-29-2024 End: 08-29-2024 Patient encounter procedure [facility] Comment on above: Medicare [facility], subsequent (Primary Dx); Type 2 diabetes mellitus with stage 3b chronic kidney disease, without long-term current use of insulin (HCC) ([facility]/HCC); Morbid (severe) obesity due to excess calories ([facility]); Acquired hypothyroidism ([facility]/HCC); Essential hypertension ([facility]/HCC); Chronic diastolic (congestive) heart failure; 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 ([facility]); Type 2 diabetes mellitus with diabetic polyneuropathy, without long-term current use of insulin ([facility]/HCC) Start: 07-16-2024 Hemoglobin A1c measurement Diabetes: Hemoglobin A1C [facility] Start: 04-17-2025 Bacteria identified in Urine by Culture Urine Culture [facility] Start: 07-06-2024 Urine culture [facility] Start: 05-25-2024 End: 05-25-2024 Patient encounter procedure 05/25/2024 10:30 AM EST Office Visit [facility] [address] [place] [address] Ирина Brown NP [address] [place] [address] Cardiomyopathy, ischemic (CMS/HCC) (Primary Dx); Type 2 [...] 40.0-44.9, adult (CMS/HCC); 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 (CMS/HCC); Essential hypertension (CMS/HCC); Acquired hypothyroidism (CMS/HCC); Factor V Leiden mutation (CMS/HCC); Statin intolerance [facility] Comment on above: Cardiomyopathy, isch emic [...] 40.0-44.9, adult (CMS/HCC); 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 (CMS/HCC); Essential hypertension (CMS/HCC); Acquired hypothyroidism (CMS/HCC); Factor V Leiden mutation (CMS/HCC); Statin intolerance Start: 05-01-2024 End: 05-01-2024 Patient encounter procedure 05/01/2024 9:00 AM EST Office Visit [facility] [address] [place] [place] [address] Emilie Meza NP [address] [place] [address] [facility] Start: 04-12-2024 Medicare Annual Well ness (AWV) Medicare Annual Wellness (AWV) [facility] Start: 04-12-2024 Pneumococcal Vaccine : 65+ Years (2 of 2 - PCV) Pneumococcal Vaccine: 65+ Years (2 of 2 - PCV) [facility] Comment on above: Postponed from 03/22 (Patient Refused) Start: 02-14-2024 Influenza vaccination Influenza Vacc ine (#1) [facility] Comment on above: Postponed from 11/20 (Patient Ill Today) Start: 01-25-2024 End: 01-24-2025 CBC W Auto Differential panel - Blood CBC and differential Lab Routine Type 2 diabetes mellitus with stage 3a chronic kidney disease, without long-term current use of insulin (HCC) ([facility]/HCC) Essential hypertension ([facility]/HCC) Expected: 01/25/2024 (Approximate), Expires: 01/24/2025 [facility] Comment on above: Expected: 01/25/2024 (Approximate), Expires: 01/24/2025 Start: 01-25-2024 End: 01-24-2025 Comprehensive metabolic 2000 panel - Serum or Plasma Comprehensive metabolic panel Lab Routine Type 2 diabetes mellitus with stage 3a chronic kidney disease, without long-term current use of insulin (HCC) (CMS/HCC) Essential hypertension (CMS/HCC) Expected: 01/25/2024 (Approximate), Expires: 01/24/2025 [facility] Comment on above: Expected: 01/25/2024 (Approximate), Expires: 01/24/2025 Start: 01-25-2024 End: 01-24-2025 Hemoglobin A1c/Hemoglobin.total in Blood Hemoglobin A1c Lab Routine Type 2 diabetes mellitus with stage 3a chronic kidney disease, without long-term current use of insulin (HCC) ([facility]) Essential hypertension ([facility]) Expected: 01/25/2024 (Approximate), Expires: 01/24/2025 [facility] Comment on above: Expected: 01/25/2024 (Approximate), Expires: 01/24/2025 Start: 01-25-2024 End: 01-24-2025 TSH W/REFLEX TO FT4 TSH W/REFLEX TO FT4 Lab Routine Acquired hypothyroidism ([facility]/HCC) Expected: 01/25/2024 (Approximate), Expires: 01/24/2025 [facility] Comment on above: Expected: 01/25/2024 (Approximate), Expires: 01/24/2025 Start: 01-25-2024 End: 01-25-[address] [facility] Comment on above: Arrived Start: 01-10-2024 End: 01-10-2024 Patient encounter procedure 01/10/2024 11:00 AM EDT Office Visit [facility] [address] [place] [address] Emilie Meza, YOAN [address] [place] [address] [facility] Start: 12-28-2023 [facility] Start: 12-25-2023 Blood culture for bacteria, including anaerobic screen Blood Culture [facility] Start: 12-25-2023 Hospital admission [facility] Start: 11-21-2023 Influenza vaccination Influenza Vacc ine (#1) [facility] Start: 04-20-2023 Hemoglobin A1c measurement Diabetes: Hemoglobin A1C [facility] Start: 09-30-2022 FUV, Provider: Joseluis Casey, Status: Pen, Time: 9:20 AM FUV, Provider: Joseluis Casey, Status: Pen, Time: 9:20 AM [facility] DO Work Phone: Start: 07-27-2022 REST ONLY, Provider: AQUILINO PAYNEI NUCLEAR 01,[id number], Status: Pen, Time: 1:00 PM REST ONLY, Provider: AQUILINO PAYNEI NUCLEAR 01,[id number], Status: Pen, Time: 1:00 PM [facility] 250 DO Work Phone: Start: 07-23-2022 STRESSNUC2, Provider : AQUILINO PAYNEI NUCLEAR 01,[id number], Status: Pen, Time: 1:00 PM STRESSNUC2, Provider: AQUILINO PAYNEI NUCLEAR 01,[id number], Status: Pen, Time: 1:00 PM [facility] 250 DO Work Phone: Start: 06-23-2022 [facility] Start: 06-22-2022 Hospital admission [facility] Start: 03-22-2003 Pneumococcal Vaccine : 65+ Years (2 of 2 - PCV) Pneumococcal Vaccine: 65+ Years (2 of 2 - PCV) [facility] Start: 1956 Urine screening for protein Diabetes: Urine Protein Screening [facility] Blood chemistry [facility] Microalbumin/Creatin ine panel in random Urine Microalbumin / creatinine urine ratio Lab Routine Type 2 diabetes mellitus with stage 3a chronic kidney disease, without long-term current use of insulin (HCC) ([facility]/HCC) Essential hypertension ([facility]/HCC) Ordered: 01/25/2024 [facility] Work Phone: Comment on above: Ordered: 01/25/2024 Patient Education [facility] Work Phone: Patient referral [facility] Work Phone: URINE CULTURE - [facility] URINE C[facility]U [facility] Lab Routine 07/06/2024 1:52 PM EDT [facility] Immunizations Immunization Date Immunization Notes Care Provider Fa cility 01-25-2024 Influenza, injectabl e, Madin Lindley Canine Kidney, preservative free, quadrivalent Emilie Meza ASSISTANT ACTIVITIES DIRECTOR Work Phone: [facility] 01-21-2021 Moderna COVID-19 Vaccine 100 MCG/0.5ML Intramuscular Suspension Good Fawwad Work Phone: [facility] 250 DO Work Phone: 12-31-2020 Seasonal trivalent influenza vaccine, adjuvanted, preservative free Good [place]wad Work Phone: [facility] 250 DO Work Phone: 12-31-2020 influenza virus vaccine, unspecified formulation Emilie Meza ASSISTANT ACTIVITIES DIRECTOR Work Phone: [facility] 05-21-2020 Moderna COVID-19 Vaccine 100 MCG/0.5ML Intramuscular Suspension Good Fawwad Work Phone: [facility] 250 DO Work Phone: 04-23-2020 Moderna COVID-19 Vaccine 100 MCG/0.5ML Intramuscular Suspension Good Fawwad Work Phone: [facility] 250 DO Work Phone: 12-28-2019 Seasonal trivalent influenza vaccine, adjuvanted, preservative free Good [place]wad Work Phone: [facility] 250 DO Work Phone: 01-18-2019 Seasonal trivalent influenza vaccine, adjuvanted, preservative free [facility] [place]ad [facility] Phone: [facility] Work Phone: 02-01-2018 Seasonal trivalent influenza vaccine, adjuvanted, preservative free [place] Work Phone: [facility] 250 DO Work Phone: 01-07-2017 Seasonal trivalent influenza vaccine, adjuvanted, preservative free Shaikh Birgitwwad Work Phone: [facility] 250 DO Work Phone: 02-26-2014 influenza, injectabl e, quadrivalent, contains preservative Good [place]wad Work Phone: [facility] 250 DO Work Phone: 12-26-2012 influenza, seasonal, injectable Good [place]wad Work Phone: [place] [address] DO Work Phone: 03-22-2002 pneumococcal polysaccharide vaccine, 23 valent [place] Work Phone: [place] [address] DO Work Phone: Comment on above: Series: Payers Date Payer Category Payer Self-pay [id number] 2022 Private Health Insurance [id number] 2002 Medicare [id number] 1959 Medicare [id number] 1959 Unknown [id number] 1937 Unknown [id number] 2.16.8 40.1.768918.3.579.2.647 1937 Unknown [id number] 2.16.84 0.1.504829.3.579.2.593 1937 Unknown [id number] 2.16.84 0.1.664658.3.579.2.593 1937 Unknown [id number] 2.16.84 0.1.647935.3.579.2.593 1937 Unknown [id number] 2.16.84 0.1.133934.3.579.2.593 1937 Unknown [id number] 2.16.8 40.1.489705.3.579.2.1068 1937 Unknown [id number] 2.16.8 40.1.340334.3.579.2.1068 1937 Unknown [id number] 2.16. 840.1.889757.3.579.2.356 1937 Unknown [id number] 2.16. 840.1.693443.3.579.2.356 1937 Unknown [id number] 2.16. 840.1.190653.3.579.2.356 1937 Unknown [id number] 2.16. 840.1.843800.3.579.2.356 1937 Unknown [id number] 2.16. 840.1.615826.3.579.2.356 1937 Unknown [id number] 2.16.8 40.1.365326.3.579.2.1244 1937 Unknown [id number] 2.16.8 40.1.877050.3.579.2.1259 1937 Unknown [id number] 2.16.84 0.1.569671.3.579.2.1259 1937 Unknown [id number] 2.16.84 0.1.991680.3.579.2.1259 1937 Unknown [id number] 2.16.84 0.1.683692.3.579.2.1259 1937 Unknown [id number] 2.16.84 0.1.000447.3.579.2.1259 Medicare [id number] Unknown Unknown [id number] 2.16.8 40.1.681083.3.579.2.531 Unknown [id number] 2.16.8 40.1.443569.3.579.2.531 Social History Date Type Detail Facility Start: 06-22-2022 End: 12-25-2023 Tobacco smoking status NHIS Ex-smoker (finding) [facility] Start: 1935 Sex Assigned At Female F [facility] Start: 10-25-2023 End: 08-29-2024 Caffeine use Caffeine use -[facility] [facility] DO Work Phone: Comment on above: 2.5 cups coffee in m orning; Start: 10-25-2023 Tobacco smoking status NHIS Never smoked tobacco [facility] Start: 10-25-2023 Tobacco use and exposure Smokeless tobacco non-user [facility] Start: 10-25-2023 End: 08-29-2024 Alcoholic beverage intake Lifetime non-drinker (finding) [facility] Start: 10-25-2023 End: 08-29-2024 Tobacco use panel [facility] Start: 1935 Sex assigned at Not on file [facility] Start: 07-08-2024 Sex Female (finding) [facility] NEGATED: Highlighted rowStart: NINF History of tobacco use Passive smoker [facility] Goals Date Patient Goal Desired Activity /State Functional Status Date Assessment Result Facility 08-29-2024 Patient Health Quest ionnaire 2 item (PHQ-2) [Reported] [facility] 12-28-2023 Functional status Patient at Baseline [facility] Work Phone: 06-23-2022 Functional status Patient at Baseline [facility] Work Phone: [facility] Mental Status Date Assessment Result Facility 12-28-2023 Cognitive function Cognitive Sta tus Patient at Baseline [facility] Work Phone: 06-23-2022 Cognitive function Cognitive Sta tus Patient at Baseline [facility] Work Phone: Clinical Notes 06-22-2022 to 08-29-2024 Ирина Brown, YOAN - 08/29/2024 12:47 PM LIZETTE HARRISON - 08/29/2024 10:30 AM Andrew Brown NP - 08/29/2024 10:30 AM Andrew Brown NP - 08/29/2024 6:35 AM EDTPatient Instructions Note Date & Type Note Facility 08-29-2024 History of Presen t illness Narrative Associated Problem(s): Hypomagnesemia May try otc magnesium oxide 240 or 250mg Check labs in 3 weeks [facility]. Pt came in today walking with a Rolator walker. Pt is needing a glucose meter and strips. Pt has been using her husbands. Pt typically gets a 125 fasting glucose Pt unable to get weight today- weakness and SOB Images from the original note were not included. Mohan Espinoza is a 89 y.o. female presents with chief complaint of Medicare Annual Wellness Visit Initial HPI: Diet:good variety not so much fruits Activity: age appropriate chronic conditions influence this Mental Health Concerns: no acute depression/anxiety Falls in the last year: yes at least twice Still driving: no Do you pay your bills: yes Any hearing problems: no Any Vision problems: glasses , last exam scheduled 10/13 Any Hospitalizations in the last year: yes Specialist: Dr Casey [facility]/Living Will: working that Concerns: discharged from [facility] SUBJECTIVE: MEDICATIONS: Current Outpatient Medications Medication Instructions allopurinol (ZYLOPRIM) 300 mg, Oral, Daily furosemide (LASIX) 40 mg, Oral, Daily glipiZIDE (GLUCOTROL) 10 mg, Oral, 2 times daily levothyroxine (SYNTHROID, LEVOXYL) 200 mcg, Oral, Daily metFORMIN (GLUCOPHAGE) 500 mg, Oral, 2 times daily metoprolol succinate XL (Toprol-XL) 50 MG 24 hr tablet TAKE 3 TABLETS BY MOUTH ONCE DAILY DO NOT CRUSH OR CHEW rivaroxaban (XARELTO) 15 mg, Oral, Daily with evening meal ALLERGIES: Allergies Allergen Reactions Albuterol Other Reaction(s): Other (See Comments), Unknown pt states hurt my lungs Yusef Inhibitors Other hypotension Atorvastatin Diarrhea Clarithromycin Other Reaction(s): Unknown Ezetimibe Other Reaction(s): Unknown Headaches Other Other hypotension REVIEW OF SYMPTOMS: Review of Systems Constitutional: Negative for appetite change, chills and fever. HENT: Negative for congestion, ear pain and sore throat. Eyes: Negative for pain, discharge, redness and visual disturbance. Respiratory: Negative for cough, shortness of breath and wheezing. Cardiovascular: Negative for chest pain, palpitations and leg swelling. Gastrointestinal: Negative for abdominal pain, blood in stool, constipation, diarrhea, nausea and vomiting. Genitourinary: Negative for difficulty urinating, dysuria and frequency. Musculoskeletal: Positive for arthralgias. Negative for back pain, joint swelling and myalgias. Skin: Negative for rash and wound. Neurological: Negative for dizziness, tremors, seizures, syncope and headaches. Psychiatric/Behavioral: Negative for behavioral problems, self-injury and suicidal ideas. The patient is not nervous/anxious. Hematological: Does not bruise/bleed easily. Endocrine: Negative for polydipsia, polyphagia and polyuria. Allergic/Immunologic: Negative for environmental allergies and food allergies. PAST MEDICAL HISTORY Past Medical History: Diagnosis Date Allergic rhinitis, mild At moderate risk for fall Atrial fibrillation ([facility]) CAD (coronary atherosclerotic disease) ([facility]) CHF (congestive heart failure) ([facility]) Chronic diastolic heart failure ([facility]) 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) ([facility]) CLL (chronic lymphocytic leukemia) ([facility]) Edema, unspecified type Factor 5 Leiden mutation, heterozygous ([facility]) Fatigue Gout History of DVT (deep vein thrombosis) History of non-Hodgkin's lymphoma HLD (hyperlipidemia) ([facility]) HTN (hypertension) ([facility]) Hypercholesteremia ([facility]/HCC) Hyperuricemia Hypothyroid ([facility]) Iron deficiency anemia Left ankle swelling Peripheral neuropathy S/P CABG (coronary artery bypass graft) Type 2 diabetes mellitus Past Surgical History: Procedure Laterality Date APPENDECTOMY CARDIAC SURGERY Stents CORONARY ARTERY BYPASS GRAFT x4 OTHER SURGICAL HISTORY [place] [facility] family history includes Diabetes in an other family member; Heart disease in her mother; Hypertension in an other family member; Stroke in an other family member. OBJECTIVE: Visit Vitals BP 118/80 (BP Location: Right arm, Patient Position: Sitting, BP Cuff Size: Adult long) Comment (BP Location): forearm Pulse 83 Temp 98.1 F (Temporal) Resp 18 SpO2 96% OB Status Postmenopausal Smoking Status Never Physical Exam Vitals and nursing note reviewed. Constitutional: General: She is not in acute distress. Appearance: Normal appearance. HENT: Head: Normocephalic and atraumatic. Right Ear: External ear normal. Left Ear: External ear normal. Nose: Nose normal. Mouth/Throat: Mouth: Mucous membranes are moist. Eyes: Extraocular Movements: Extraocular movements intact. Conjunctiva/sclera: Conjunctivae normal. Neck: Vascular: No carotid bruit. Cardiovascular: Rate and Rhythm: Normal rate and regular rhythm. Pulses: Normal pulses. Heart sounds: Normal heart sounds. Pulmonary: Effort: Pulmonary effort is normal. Breath sounds: Normal breath sounds. Abdominal: General: Bowel sounds are normal. There is no distension. Palpations: Abdomen is soft. There is no mass. Tenderness: There is no abdominal tenderness. Musculoskeletal: General: Normal range of motion. Cervical back: Normal range of motion and neck supple. Right lower leg: Edema present. Left lower leg: Edema present. Skin: General: Skin is warm and dry. [...] prn dose changes or changes in symptoms Essential hypertension (CMS/HCC) Please check blood pressure daily and record DASH diet Limit caffeine Take medication as directed Contact office if chest pain, pressure, dizziness, shortness of breath, swelling legs Recommend slow position changes Current meds; diuretic, and b jazmine Relevant Orders Comprehensive metabolic panel Urinalysis with reflex microscopic (clean catch) Morbid (severe) obesity due to excess calories (CMS/HCC) Discussed with patient their BMI (actual, verses recommended). We have also discussed lifestyle modifications: attempts to perform physical activity as chronic conditions allow, also to monitor dietary intake: increasing protein/fruits/veggies and lowering carb intake (unless contraindicated). Limit sodas, juices, and sugary drinks. 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 ([facility]) Unable to tolerate statin Does take b jazmine Relevant Orders Comprehensive metabolic panel Lipid panel Type 2 diabetes mellitus with diabetic chronic kidney disease ([facility]) Check blood sugars daily, notify if <70 [...] and yusef/arb, and no asa d/t Xarelto A1c: 7% on 04/17/24 Relevant Orders POCT glycosylated hemoglobin (Hb A1C) docked device (Completed) CBC and differential Iron + transferrin + TIBC Ferritin PTH, intact Phosphorus Magnesium Urinalysis with reflex microscopic (clean catch) Medicare annual wellness visit, subsequent - Primary Reviewed Ht/Wt/BMI Recommend eye exam yearly Recommend dental exams twice a year Balance work/leisure activities Exercises is recommended most days of the week (appropriate as chronic conditions allow) Follow up yearly and prn Chronic diastolic (congestive) heart failure On b jazmine, and diuretic Relevant Orders Comprehensive metabolic panel Type 2 diabetes mellitus with diabetic polyneuropathy ([facility]) No current meds for this Recommend freq foot checks, proper fitting shoes Adequate blood sugar control Relevant Orders Comprehensive metabolic panel Urinalysis with reflex microscopic (clean catch) Hypomagnesemia May try otc magnesium oxide 240 or 250mg Check labs in 3 weeks Relevant Orders Magnesium Associated Problem(s): Type 2 diabetes mellitus with diabetic polyneuropathy ([facility]) No current meds for this Recommend freq foot checks, proper fitting shoes Adequate blood sugar control Associated Problem(s): 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 ([facility]/HCC) Unable to tolerate statin Does take b jazmine Associated Problem(s): Chronic diastolic (congestive) heart failure On b jazmine, and diuretic Associated Problem(s): Essential hypertension ([facility]/HCC) Please check blood pressure daily and record DASH diet Limit caffeine Take medication as directed Contact office if chest pain, pressure, dizziness, shortness of breath, swelling legs Recommend slow position changes Current meds; diuretic, and b jazmine Associated Problem(s): Acquired hypothyroidism ([facility]/HCC) Current med: levothyroxine Check labs yearly, and prn dose changes or changes in symptoms Associated Problem(s): Morbid (severe) obesity due to excess calories ([facility]/HCC) Discussed with patient their BMI (actual, verses recommended). We have also discussed lifestyle modifications: attempts to perform physical activity as chronic conditions allow, also to monitor dietary intake: increasing protein/fruits/veggies and lowering carb intake (unless contraindicated). Limit sodas, juices, and sugary drinks. Associated Problem(s): Type 2 diabetes mellitus with diabetic chronic kidney disease ([facility]/HCC) Check blood sugars daily, notify if <70 [...] and yusef/arb, and no asa d/t Xarelto A1c: 7% on 04/17/24 Associated Problem(s): Medicare annual wellness visit, subsequent Reviewed Ht/Wt/BMI Recommend eye exam yearly Recommend dental exams twice a year Balance work/leisure activities Exercises is recommended most days of the week (appropriate as chronic conditions allow) Follow up yearly and prn documented in this encounter [facility] 05-25-2024 History of Presen t illness Narrative [...] problems. Hypertensive end-organ damage includes kidney disease, CAD/AZ and heart failure. Identifiable causes of hypertension [...] At moderate risk for fall Atrial fibrillation ([facility]/HCC) CAD (coronary atherosclerotic disease) ([facility]) CHF (congestive heart failure) ([facility] Chronic diastolic heart failure ([facility]) 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) ([facility]) CLL (chronic lymphocytic leukemia) ([facility]) Edema, unspecified type Factor 5 Leiden mutation, heterozygous ([facility]) Fatigue Gout History of DVT (deep vein thrombosis) History of non-Hodgkin's lymphoma HLD (hyperlipidemia) ([facility]) HTN (hypertension) ([facility] Hypercholesteremia ([facility]) Hyperuricemia Hypothyroid ([facility]) Iron deficiency anemia Left ankle swelling Peripheral neuropathy S/P CABG (coronary artery bypass graft) Type 2 diabetes mellitus ([facility]) Past Surgical History: Procedure Laterality Date APPENDECTOMY CARDIAC SURGERY Stents CORONARY ARTERY BYPASS GRAFT x4 OTHER SURGICAL HISTORY [place] family history includes Diabetes in an [...] and sugary drinks. 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 ([facility]) Unable to tolerate statin Does take b jazmine Factor V Leiden mutation ([facility]) On xarelto Type 2 diabetes mellitus with diabetic chronic kidney disease ([facility]) Check blood sugars daily, notify if <70 [...] Type 2 diabetes mellitus with diabetic cataract ([facility]) Chronic diastolic (congestive) heart failure ([facility]) On b jazmine, and diuretic Chronic kidney disease, stage 3b (HCC) ([facility]) Control blood pressure and blood sugars Check labs yearly and prn Type 2 diabetes mellitus with diabetic polyneuropathy ([facility]) No current meds for this Recommend freq foot checks, proper fitting shoes Adequate blood sugar control 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 elsewhere ([facility]) Body mass index (BMI) 40.0-44.9, adult ([facility]) Cardiomyopathy, ischemic ([facility]) - Primary Noted from cardiology Current meds: b jazmine, aldactone, diuretics Statin intolerance Other Visit Diagnoses Chronic lymphocytic leukemia of B-cell type not having achieved remission ([facility]) Hyperuricemia without signs of inflammatory arthritis and tophaceous disease Associated Problem(s): Factor V Leiden mutation ([facility]) On xarelto Associated Problem(s): Type 2 diabetes mellitus with diabetic chronic kidney disease ([facility]) Check blood sugars daily, notify if <70 [...] jazmine Associated Problem(s): 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 Nothing to eat or drink for 12 hours prior to blood draw. Water and black coffee ok. Call if you need anything! documented in this encounter [facility] 01-10-2024 History of Presen t illness Narrative Associated Problem(s): Atrial fibrillation (CMS/HCC) Currently taking Eliquis. Was admitted to [facility] for NSTEMI 12/24 Echo ordered EF was 60%-65% [facility] discharged, believed troponin elevations were related to [...] Casey- Cardiology [facility] Follow-Up: Was admitted to [facility] for NSTEMI 12/24-12/27 Echo ordered EF was 60%-65% [facility] discharged, believed troponin elevations were related to [...] Primary Currently taking Eliquis. Was admitted to [facility] for NSTEMI 12/24 Echo ordered EF was 60%-65% [facility] discharged, believed troponin elevations were related to brief episode of Afib RVR No medication changes States she feels better presently, but is still fatigued. Follows with Dr. Casey- Cardiology; Has not made an appointment to follow up with Cards yet. Advised pt to do so. documented in this encounter [facility] 01-10-2024 Instructions Emilie Meza NP - 01/10/2024 11:00 AM EDT Follow up with Cardiology- Call office to schedule appointment Joseluis Vuong DO [address] [place] [address] documented in this encounter [facility] 12-28-2023 Progress note Note Date/Time December 27, 2023 10:24pm [facility] [address] [place] [address] Hospitalist Progress Note Signed Patient: Mohan Espinoza MR#: [id number] : 1935 Acct:[id number] Age/Sex: 88 / F Adm Date: 4 Loc: Room: 7J7807-3 Type: ADM IN Attending Dr: Nelson Orourke [...] 12/26/23 09:00 12/27/23 08:49 Aspirin 81 Mg Tablet. PO 12/25/24 08:59 81 mg DAILY PERLA [...] A&P - Hospitalist Assessment/Plan (1) Type 2 AZ (myocardial infarction): Plan Documented By: Nelson Orourke, 12/27/232221 Signed By: <Electronically signed by Nelson Orourke, DO> 12/27/232223 [facility] Work Phone: 1(836) 983-418810-06-2024 Progress note Author Apryl Shirley [facility] December 26, 2023 5:24pm Note Date/Time December 26, 2023 3: 47pm [facility] [address] [place] [address] Hospitalist Progress Note Signed Patient: Mohan Espinoza MR#: [id number] : 1935 Acct:[id number] Age/Sex: 88 / F Adm Date: 4 Loc: Room: [address] [place] [address] Type: ADM IN Attending Dr: Apryl Shirley MD Copies to: ~ Date of Service: 12/26/2023 Subjective Subjective Narrative: Assessment And Plan 88-year-old female with previously known history of atrial fibrillation, hypertension, CKD , diabetes and hyperlipidemia, Hypothyroidism She presented to [facility] () ER earlier this evening with initially reported shortness of breath type 2 myocardial infarction Rule out NSTEMI She denies any chest pain or worsening SOB during her stay HS-Troponin 50 ()> 200 () > 280 ([facility]) > 73 (today) LDL 115 [...] A&P - Hospitalist Assessment/Plan (1) Type 2 AZ (myocardial infarction): Plan Documented By: Apryl Shirley MD 12/26/23 1540 Signed By: <Electronically signed by Apryl Shirley MD> 12/26/23 2426 [facility] Work Phone: 1(466) 660-568510-06-2024 Progress note Author Apryl Shirley [facility] December 25, 2023 11:11pm Note Date/Time December 25, 2023 6: 36pm [facility] [address] [place] [address] Hospitalist Progress Note Signed Patient: Mohan Espinoza MR#: [id number] : 1935 Acct:[id number] Age/Sex: 88 / F Adm Date: 4 Loc: Room: [address] [place] [address] Type: ADM IN Attending Dr: Apryl Shirley MD Copies to: ~ Date of Service: 12/25/2023 Subjective Subjective Narrative: Assessment And Plan 88-year-old female with previously known history of atrial fibrillation, hypertension, CKD , diabetes and hyperlipidemia, Hypothyroidism She presented to [facility] () ER earlier this evening with initially reported shortness of breath type 2 myocardial infarction Rule out NSTEMI She denies any chest pain or worsening SOB HS-Troponin 50 ()> 200 () > 280 ([facility]) LDL 115 EKG () shows [...] 40 Mg Tablet PO 12/25/24 08:59 DAILY [facility] Glucose 0 gm 12/25/23 18:11 Dextrose 40% [...] Units/3 Ml Insuln.Pen SUBCUT 12/24/24 21:59 TID.WM.HS [facility] Protocol Insulin Glargine 15 units 12/25/23 22:00 Insulin Glargine 300 Units/3 Ml Insuln.Pen SUBCUT 12/24/24 21:59 QHS [facility] Levothyroxine Sodium 200 mcg 12/25/23 06:30 12/25/23 [...] A&P - Hospitalist Assessment/Plan (1) Type 2 AZ (myocardial infarction): Plan Documented By: Apryl Shirley MD 12/25/231811 Signed By: <Electronically signed by Apryl Shirley MD> 12/25/23 2311 [facility] Work Phone: 1(822) 791-203510-05-2024 History and physical note Author Ren Mohan [facility] December 25, 2023 5:41am Note Date/Time December 25, 2023 3: 54am [facility] [address] [place] [address] Hospitalist H&P Signed Patient: Mohan Espinoza MR#: [id number] : 1935 Acct:[id number] Age/Sex: 88 / F Adm Date: 4 Loc: Room: [address] [place] [address] Type: ADM IN Attending Dr: Ren Mohan DO Copies to: Ren Mohan DO NO FAMILY PHYSICIAN~ HPI DATE OF EXAMINATION: 12/25/23 CHIEF COMPLAINT: Shortness of breath HISTORY OF PRESENT ILLNESS: This patient is an 88-year-old female with previously known history of atrial fibrillation, hypertension, type 2 diabetes and hyperlipidemia. She has been evaluated here at [facility] necessitating cardiology consultation for troponin elevation in [...] in the evening with ER physician at [place] and with rising troponins ACS cannot be [...] with history of pulmonary embolism status post [place] filter 10. Hypothyroidism 11. Coronary artery disease [...] glipizide. Continue on 150 mg metoprolol ER. [facility] Medical History (Updated 12/25/23 @ 05:41 by Ren Mohan DO) Non-Hodgkin lymphoma in remission Patient recieved chemo therapy Problem List clean-up per request of Phys. EHR [facility] [place] filter in place Problem List clean-up per request of Phys. EHR Cmte Anemia Problem List clean-up per request of Phys. EHR Cmte Hypothyroidism Problem List clean-up per request of Phys. EHR Cmte Hypertension Problem List clean-up per request of Phys. EHR Cmte Gout Problem List clean-up per request of Phys. EHR [facility] Factor V Leiden Problem List clean-up per request of Phys. EHR Cmte Pulmonary embolism Problem List clean-up per request of Phys. EHR Cmte Diabetes Problem List clean-up per request of Phys. EHR Cmte Myocardial infarct Problem List clean-up per request of Phys. EHR [facility] Surgical History (Updated 03/03/23 @ 14:47 by [facility]) History of appendectomy Problem List clean-up per request of Phys. EHR [facility] History of open heart surgery x4 Problem List clean-up per request of Phys. EHR [facility] History of heart artery stent March 2018- 3 stents placed at [facility] Problem List clean-up per request of Phys. EHR [facility] Family History Father Diabetes Mother [...] 10 mg tablet 10 mg PO BID 04/03/23 [History Confirmed 12/25/23] levothyroxine 200 mcg tablet [...] signed by Ren Mohan DO> 12/25/23 0541 [facility] Work Phone: 1(530) 111-132804-04-2023 Progress note Author Brissa Hoffman [facility] June 23, 2022 5:18pm Note Date/Time June 23, 2022 12:1 1pm [facility] [address] [place] [address] Hospitalist Progress Note Signed Patient: Mohan Espinoza MR#: [id number] : 1935 Acct:[id number] Age/Sex: 86 / F Adm Date: 3 Loc: Room: [address] [place] [address] Type: ADM IN Attending Dr: Brissa Hoffman [...] Dose Route Start Last Admin Trade Name Larryq PRN Reason Stop Dose Admin Acetaminophen 650 [...] Tablet PO 06/22/23 08:59 Not Given DAILY [facility] Metoprolol Succinate 150 mg 06/24/22 09:00 Metoprolol Succinate 50 Mg Tab.Er.24h PO 06/24/23 08:59 DAILY [facility] Rivaroxaban 15 mg 06/22/22 17:00 06/22/22 17:00 Rivaroxaban 15 Mg Tablet PO 06/22/23 16:59 15 mg DAILY@17 [facility] Administration A&P - Hospitalist Assessment/Plan (1) Elevated [...] signed by Brissa Hoffman MD> 06/23/22 1718 [facility] Work Phone: 1(210) 538-528004-04-2023 Hospital Discharge instructionsAmbulatory Orders* Initiate Home Health Time Frame: 06/23/22, Location: Determined By Patient Additional Instructions Please call and schedule an appointment with your established Eye Specialist. HOME HEALTH TO MANAGE: Nursing/PT to eval and treat Monitor VS per protocol Monitor Cardiovascular assessment--Elevated troponin, CAD, HTN Please draw a BMP in 5 days, Send to Dr. Schultz Assist with medication management and provide medication education Assist with glucose control Provide education on high risk fall precautions [facility] Work Phone: [phone]) 445-335604-04-2023 Progress note Author W Jacinto [facility] June 23, 2022 9:56am Note Date/Time June 23, 2022 9:56 am [facility] [address] [place] [address] Cardiology Progress Note Signed Patient: Mohan Espinoza MR#: [id number] : 1935 Acct:[id number] Age/Sex: 86 / F Adm Date: 3 Loc: Room: [address] [place] [address] Type: ADM IN Attending Dr: Brissa Hoffman [...] above, to follow-up with Dr. Randolph in [place], for further evaluation and management Exam Physical [...] Acute (8) Chronic anticoagulation: Code(s): Z79.01 - director long term care (current) use of anticoagulants Status: Acute (9) Factor V Leiden: Code(s): D68.51 - Activated protein C resistance Status: Acute Documented By: Marta Casey DO 06/23/22 0952 Signed By: <Electronically signed by Marta Casey DO> 06/23/22 0956 [facility] Work Phone: [phone]) 808-912304-03-2023 Progress note Author Brissa Hoffman [facility] [place] 3rd, 2023 2:14pm Note Date/Time June 22, 2022 2:12 pm [facility] [address] [place] [address] Hospitalist Progress Note Signed Patient: Mohan Espinoza MR#: [id number] : 1935 Acct:[id number] Age/Sex: 86 / F Adm Date: 3 Loc: Room: [address] [place] [address] Type: ADM IN Attending Dr: Brissa Hoffman [...] PRN Hypoglycemia Furosemide 40 mg 06/22/22 08:00 04/03/23 07:48 Furosemide 40 Mg Tablet PO 06/22/23 07:59 Not Given DAILY@0800 [facility] Glucose 0 gm 06/22/22 05:06 Dextrose 40% [...] Tablet PO 06/22/23 08:59 Not Given DAILY [facility] Metoprolol Succinate 100 mg 06/22/22 09:00 06/22/22 09:08 Metoprolol Succinate 100 Mg Tab.Er.24h PO 06/22/23 08:59 Not Given DAILY [facility] Rivaroxaban 15 mg 06/22/22 17:00 Rivaroxaban 15 Mg Tablet PO 06/22/23 16:59 DAILY@17 [facility] A&P - Hospitalist Assessment/Plan (1) Elevated troponin: [...] 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 DVT/PE: [place] filter in place Gout: Continue home meds DVT prophylaxis: Home Xarelto, SCD CODE STATUS: Full code Documented By: Brissa Hoffman MD 06/22/22 1411 Signed By: <Electronically signed by Brissa Hoffman MD> 06/22/22 1414 [facility] Work Phone: [phone]) [phone] Consult note Author Marta Casey [facility] June 22, 2022 12:49pm Note Date/Time June 22, 2022 11:4 0am [facility] [address] [place] [address] Cardiology Consult Note Signed Patient: Mohan Espinoza MR#: [id number] : 1935 Acct:[id number] Age/Sex: 86 / F Adm Date: 3 Loc: Room: [address] [place] [address] Type: ADM IN Attending Dr: Brissa Hoffman MD Copies to: MD Shaikh Marion Vidal MD W Scott Sheldon, DO~ Cardiology HPI History of Present Illness Consult Date: 06/22/22 Reason for Consult: Elevated cardiac biomarkers, atrial fibrillation, ASHD HPI: Ms. Espinoza is a 86 year old female seen in cardiology consultation at the request of hospitalist after patient was transferred from [place] emergency room with elevated cardiac biomarkers. She presented with symptoms of UTI, bodyaches, lower extremity weakness, rigors; very similar to symptoms she has had before with urinary tract infections. She did not complaining of any shortness of breath or chest discomfort, she was complaining of lower abdominal discomfort as well. In [place] ER, her initial high-sensitivity troponins came back elevated at 100, serum creatinine 1.8, ECG consistent with controlled atrial fibrillation. There were initial attempts to transfer her to [facility] with her primary check grader Dr. Randolph. They were unable to accept her immediately, there was some concern in the ER that she could not be admitted to [place] (? Unknown reason), therefore [facility] hospitalist was contacted and accepted patient in [...] A-fib Impression/recommendations: Probable type II non-ST elevation [place] secondary to multiple comorbidities including obesity, chronic [...] imaging; this canbe completed with her primary check grader Review of Systems Review of Systems [...] RES) Anemia Diabetes Factor V Leiden Gout [place] filter in place Hypertension Hypothyroidism Myocardial infarct Non-Hodgkin lymphoma in remission Patient recieved chemo therapy Pulmonary embolism Surgical History (Updated 06/22/22 @ 12:49 by Marta Casey DO) History of appendectomy History of heart artery stent March 2018- 3 stents placed at [facility] History of open heart surgery x4 Family [...] x10E3/uL Lymph # (Auto) 1.4 (1.00-4.8) x10E3/uL [place] # (Auto) 0.9 H (0.0-0.8) x10E3/uL Eos [...] <Electronically signed by Marta Casey DO> 06/22/22 1249 [facility] Work Phone: 1(713) 807-692604-03-2023 History and physical note Author Toi Johnson [facility] June 22, 2022 7:15am Note Date/Time June 22, 2022 4:22 am [facility] [address] [place] [address] Hospitalist H&P Signed Patient: Mohan Espinoza MR#: [id number] : 1935 Acct:[id number] Age/Sex: 86 / F Adm Date: 3 Loc: Room: [address] [place] [address] Type: ADM IN Attending Dr: Toi Johnson MD Copies to: MD Marcela Garvey DO, FLAQUITA Schultz MD~ HPI DATE OF EXAMINATION: 06/22/22 CHIEF [...] stent March 2018- 3 stents placed at [facility] History of open heart surgery x4 Family [...] resident's note above. Patient transferred here to [facility] due to elevated troponin and her [...] function. Documented By: Toi Johnson MD 3 [id number] Signed By: <Electronically signed by Toi Johnson MD> 06/22/22 0715 <Electronically signed by DO FLAQUITA Cano> 06/22/22 0614 [facility] Work Phone: Evaluation note* Diagnosis Onset Date Resolution Status Atrial fibrillation acute CAD (coronary artery disease) acute Chronic anticoagulation acut e CKD (chronic kidney disease), stage III acute Diabetes mellitus acute Dyspnea acute Elevated troponin acute Factor V Leiden acute H/O pulmonary artery thrombosis acute History of heart artery stent acute History of open heart surgery acute HTN (hypertension) acute [facility] Work Phone: Evaluation note* Diagnosis Onset Date Resolution Status NSTEMI (non-ST elevated myocardial infarction) acute Type 2 AZ (myocardial infarction) acute [facility] Work Phone: Evaluation note* Diagnosis Unspecified atrial fibrillation (CMS/HCC) documented in this encounter [facility] HealthcareEvaluation note* Diagnosis Primary hypertension (CMS/HCC)- Primary Unspecified essential hypertension Hypothyroidism, unspecified type ([facility]/HCC) Type 2 diabetes mellitus with stage 3a chronic kidney disease, without long-term current use of insulin (HCC) ([facility]/HCC) Longstanding persistent atrial fibrillation (CMS/HCC) 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 (CMS/HCC) Essential hypertension (CMS/HCC) Unspecified essential hypertension Stage 3a chronic kidney disease (HCC) (CMS/HCC) Acquired hypothyroidism (CMS/HCC) Unspecified hypothyroidism Chronic lymphocytic leukemia (CMS/HCC) Chronic lymphoid leukemia, without mention of having achieved remission Medicare annual wellness visit, subsequent Longstanding persistent atrial fibrillation (CMS/HCC)- Primary documented in this encounter [facility] HealthcareEvaluation note* Diagnosis Primary hypertension (CMS/HCC)- Primary Unspecified essential hypertension Hypothyroidism, unspecified type (CMS/HCC) Type 2 diabetes mellitus with stage 3a chronic kidney disease, without long-term current use of insulin (HCC) (CMS/HCC) Longstanding persistent atrial fibrillation (CMS/HCC) 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 (CMS/HCC) Essential hypertension [...] inoculation against influenza documented in this encounter [facility] HealthcareEvaluation note* Diagnosis Primary hypertension (CMS/HCC)- Primary Unspecified essential hypertension Hypothyroidism, unspecified type (CMS/HCC) Type 2 diabetes mellitus with stage 3a chronic kidney disease, without long-term current use of insulin (HCC) (CMS/HCC) Longstanding persistent atrial fibrillation (CMS/HCC) 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 (CMS/HCC) Essential hypertension (CMS/HCC) Unspecified essential hypertension Stage 3a chronic kidney disease (HCC) (CMS/HCC) Acquired hypothyroidism (CMS/HCC) Unspecified hypothyroidism Chronic lymphocytic leukemia ([facility]/HCC) Chronic lymphoid leukemia, without mention of having achieved remission Medicare annual wellness visit, subsequent Longstanding persistent atrial fibrillation (CMS/HCC)- Primary Type 2 diabetes mellitus with stage 3a chronic kidney disease, without long-term current use of insulin (HCC) (CMS/HCC)- Primary Essential hypertension (CMS/HCC) Unspecified essential hypertension Acquired hypothyroidism ([facility]/HCC) Unspecified hypothyroidism Need for influenza vaccination Need for prophylactic vaccination and inoculation against influenza Hyperuricemia without signs of inflammatory arthritis and tophaceous disease Type 2 diabetes mellitus without complications ([facility]/HCC) documented in this encounter [facility] HealthcareEvaluation note* Diagnosis Primary hypertension (CMS/HCC)- Primary Unspecified essential hypertension Hypothyroidism, unspecified type (CMS/HCC) Type 2 diabetes mellitus with stage 3a chronic kidney disease, without long-term current use of insulin (HCC) (CMS/HCC) Longstanding persistent atrial fibrillation ([facility]/HCC) 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 (CMS/HCC) Essential hypertension (CMS/HCC) Unspecified essential hypertension Stage 3a chronic kidney disease (HCC) (CMS/HCC) Acquired hypothyroidism ([facility]/HCC) Unspecified hypothyroidism Chronic lymphocytic leukemia ([facility]/HCC) Chronic lymphoid leukemia, without mention of having achieved remission Medicare annual wellness visit, subsequent Longstanding persistent atrial fibrillation ([facility]/HCC)- Primary Type 2 diabetes mellitus with stage 3a chronic kidney disease, without long-term current use of insulin (HCC) ([facility]/HCC)- Primary Essential hypertension (CMS/HCC) Unspecified essential hypertension Acquired hypothyroidism ([facility]/HCC) Unspecified hypothyroidism Need for influenza vaccination Need for prophylactic vaccination and inoculation against influenza Type 2 diabetes mellitus with diabetic chronic kidney disease ([facility]/HCC) documented in this encounter [facility] HealthcareEvaluation note* Diagnosis Primary hypertension (CMS/HCC)- Primary Unspecified essential hypertension Hypothyroidism, unspecified type (CMS/HCC) Type 2 diabetes mellitus with stage 3a chronic kidney disease, without long-term current use of insulin (HCC) (CMS/HCC) Longstanding persistent atrial fibrillation (CMS/HCC) 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 (CMS/HCC) Essential hypertension [...] atrial fibrillation (CMS/HCC) documented in this encounter [facility] HealthcareEvaluation note* Diagnosis Primary hypertension (CMS/HCC)- Primary Unspecified essential hypertension Hypothyroidism, unspecified type (CMS/HCC) Type 2 diabetes mellitus with stage 3a chronic kidney disease, without long-term current use of insulin (HCC) (CMS/HCC) Longstanding persistent atrial fibrillation (CMS/HCC) 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 (CMS/HCC) Essential hypertension [...] without complications (CMS/HCC) documented in this encounter [facility]* Diagnosis Primary hypertension (CMS/HCC)- Primary Unspecified essential hypertension Hypothyroidism, unspecified type ([facility]/HCC) Type 2 diabetes mellitus with stage 3a chronic kidney disease, without long-term current use of insulin (HCC) ([facility]/HCC) Longstanding persistent atrial fibrillation ([facility]/HCC) 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 ([facility]/HCC) Essential hypertension ([facility]/HCC) Unspecified essential hypertension Stage 3a chronic kidney disease (HCC) ([facility]/HCC) Acquired hypothyroidism ([facility]/HCC) Unspecified hypothyroidism Chronic lymphocytic leukemia ([facility]/HCC) Chronic lymphoid leukemia, without mention of having achieved remission Medicare annual wellness visit, subsequent Longstanding persistent atrial fibrillation ([facility]/HCC)- Primary Type 2 diabetes mellitus with stage 3a chronic kidney disease, without long-term current use of insulin (HCC) ([facility])- Primary Essential hypertension ([facility]/HCC) Unspecified essential hypertension Acquired hypothyroidism ([facility]/HCC) Unspecified hypothyroidism Need for influenza vaccination Need for prophylactic vaccination and inoculation against influenza Type 2 diabetes mellitus with diabetic chronic kidney disease ([facility])- Primary Type 2 diabetes mellitus with diabetic cataract ([facility]) Type II or unspecified type diabetes mellitus with ophthalmic manifestations, not stated as uncontrolled Chronic diastolic (congestive) heart failure ([facility]) Chronic kidney disease, stage 3b (HCC) ([facility]) Type 2 diabetes mellitus with diabetic polyneuropathy ([facility]) 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 elsewhere ([facility]) Chronic lymphocytic leukemia of B-cell type not having achieved remission ([facility]) Hairy cell leukemia, in remission ([facility]) Unspecified atrial fibrillation ([facility]) Morbid (severe) obesity due to excess calories ([facility]) Body mass index (BMI) 40.0-44.9, adult ([facility]) Cardiomyopathy, ischemic ([facility]) Other specified forms of chronic ischemic heart disease 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 ([facility]/HCC) Essential hypertension ([facility]/HCC) Unspecified essential hypertension Acquired hypothyroidism ([facility]/HCC) Unspecified hypothyroidism Factor V Leiden mutation ([facility]/HCC) Primary hypercoagulable state Statin intolerance Hyperuricemia without signs of inflammatory arthritis and tophaceous disease documented in this encounter [facility]* Diagnosis Primary hypertension ([facility]/HCC)- Primary Unspecified essential hypertension Hypothyroidism, unspecified type ([facility]) Type 2 diabetes mellitus with stage 3a chronic kidney disease, without long-term current use of insulin (HCC) (CMS/HCC) Longstanding persistent atrial fibrillation (CMS/HCC) 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 (CMS/HCC) Essential hypertension [...] diabetes mellitus with diabetic chronic kidney disease (CMS/HCC)- Primary 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/HCC) Type II or unspecified type diabetes mellitus with ophthalmic manifestations, not stated as uncontrolled Chronic diastolic (congestive) heart failure Chronic kidney disease, stage 3b (HCC) ([facility]/HCC) 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) 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 elsewhere ([facility]/HCC) Chronic lymphocytic leukemia of B-cell type not having achieved remission ([facility]/HCC) Hairy cell leukemia, in remission ([facility]/HCC) Unspecified atrial fibrillation ([facility]/HCC) Morbid (severe) obesity due to excess calories ([facility]/HCC) Body mass index (BMI) 40.0-44.9, adult ([facility]/HCC) Cardiomyopathy, ischemic ([facility]/HCC) Other specified forms of chronic ischemic heart disease 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 (CMS/HCC) Essential hypertension (CMS/HCC) Unspecified essential hypertension Acquired hypothyroidism (CMS/HCC) Unspecified hypothyroidism Factor V Leiden mutation ([facility]/HCC) Primary hypercoagulable state Statin intolerance Hyperuricemia without signs of inflammatory arthritis and tophaceous disease Unspecified atrial fibrillation (CMS/HCC) documented in this encounter [facility] HealthcareEvaluation noteNo assessment information available[facility] Work Phone: Evaluation note* Diagnosis Primary hypertension (CMS/HCC)- Primary Unspecified essential hypertension Hypothyroidism, unspecified type (CMS/HCC) Type 2 diabetes mellitus with stage 3a chronic kidney disease, without long-term current use of insulin (HCC) ([facility]/HCC) Longstanding persistent atrial fibrillation ([facility]/HCC) 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 ([facility]/HCC) Essential hypertension ([facility]/HCC) Unspecified essential hypertension Stage 3a chronic kidney disease (HCC) ([facility]/HCC) Acquired hypothyroidism ([facility]/HCC) Unspecified hypothyroidism Chronic lymphocytic leukemia ([facility]/HCC) Chronic lymphoid leukemia, without mention of having achieved remission Medicare annual wellness visit, subsequent Longstanding persistent atrial fibrillation (CMS/HCC)- Primary Type 2 diabetes mellitus with stage 3a chronic kidney disease, without long-term current use of insulin (HCC) ([facility]/HCC)- Primary Essential hypertension ([facility]/HCC) Unspecified essential hypertension Acquired hypothyroidism ([facility]/HCC) Unspecified hypothyroidism Need for influenza vaccination Need for prophylactic vaccination and inoculation against influenza Type 2 diabetes mellitus with diabetic chronic kidney disease ([facility]/HCC)- Primary Type 2 diabetes mellitus with diabetic cataract ([facility]) Type II or unspecified type diabetes mellitus with ophthalmic manifestations, not stated as uncontrolled Chronic diastolic (congestive) heart failure Chronic kidney disease, stage 3b (HCC) ([facility]) Type 2 diabetes mellitus with diabetic polyneuropathy ([facility]) 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 elsewhere ([facility]) Chronic lymphocytic leukemia of B-cell type not having achieved remission ([facility]) Hairy cell leukemia, in remission ([facility]) Unspecified atrial fibrillation ([facility]) Morbid (severe) obesity due to excess calories ([facility]) Body mass index (BMI) 40.0-44.9, adult ([facility]) Cardiomyopathy, ischemic ([facility]) Other specified forms of chronic ischemic heart disease 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 ([facility]/HCC) Essential hypertension ([facility]/HCC) Unspecified essential hypertension Acquired hypothyroidism ([facility]/HCC) Unspecified hypothyroidism Factor V Leiden mutation ([facility]) Primary hypercoagulable state Statin intolerance Hyperuricemia without signs of inflammatory arthritis and tophaceous disease Medicare annual wellness visit, subsequent- Primary Type 2 diabetes mellitus with stage 3b chronic kidney disease, without long-term current use of insulin (HCC) ([facility]) Morbid (severe) obesity due to excess calories ([facility]/HCC) Acquired hypothyroidism ([facility]/HCC) Unspecified hypothyroidism Essential hypertension (CMS/HCC) Unspecified essential hypertension Chronic diastolic (congestive) heart failure 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 (CMS/HCC) Type 2 diabetes mellitus with diabetic polyneuropathy, without long-term current use of insulin (CMS/HCC) Hypomagnesemia Disorders of magnesium metabolism documented in this encounter [facility] Summary [...] 2019 7:25pm Hospital Course Note MR#: [id number] [facility] Pt. Name: Mohan Espinoza Admitted: 04/06/2018 Discharged: [...] as above, the patient was seen in [facility] after she was feeling weak for 1 day. In [facility], she was found to have [...] (non-ST eleva ruma myocardial infarction) Type 2 [place] (myocardial infarction) Chief Complaint Admit Date Unknown July 06, 2024 1:5 2pm Chief Complaint * [facility] 06/23/22. * [...] section and content) DATE CREATED AUTHOR 11/06/2017 [facility] DATE CREATED AUTHOR AUTHOR'S ORGANIZ ATION 04/04/2019 [facility] DATE CREATED AUTHOR AUTHOR'S ORGANIZ ATION 04/18/2020 [facility] DATE CREATED AUTHOR AUTHOR'S ORGANIZ ATION 06/24/2022 [facility] DATE CREATED AUTHOR AUTHOR'S ORGANIZ ATION 09/26/2022 [facility] DATE CREATED AUTHOR AUTHOR'S ORGANIZ ATION 10/01/2022 [facility] DATE CREATED AUTHOR AUTHOR'S ORGANIZ ATION 10/01/2022 [facility] DATE CREATED AUTHOR AUTHOR'S ORGANIZ ATION 01/12/2024 [facility] DATE CREATED AUTHOR AUTHOR'S ORGANIZ ATION 07/09/2024 [facility] DATE CREATED AUTHOR AUTHOR'S ORGANIZ ATION 08/30/2024 [facility] EPIC Care Teams (unrecognized sec [...] Team Status: Active Member Role Status Dates CHRISTY Mathews Primary Care Provider Ac tive Team Status: Inactive Member Role Status Dates Ren Mohan DO Admit Provider Active Start: December 25, 2023 End: December 28, 2023 Nelson Orourke DO Attending Provider Active St art: December 25, 2023 End: December 28, 2023 Emilie Meza NP-C Primary Care Provider Ac tive Start: December 25, 2023 End: December 28, 2023 Lubrication Servicer Relationship Specialty Start Date End Date Fabricio Edouard MD [address] [place] [phone] PCP - General Family Medicine 10/20/23 Emilie Meza NP [address] [place] [address] Nurse Practitioner Family Medicine 10/20/23 Lubrication Servicer Relationship Specialty Start Date End Date Fabricio Edouard MD [address] [place] [address] PCP - General Family Medicine 10/20/23 Emilie Meza NP [address] [place] [address] Nurse Practitioner Family Medicine 10/20/23 Lubrication Servicer Relationship Specialty Start Date End Date Fabricio Edouard MD [address] [place] [phone] PCP - General Family Medicine 10/20/23 Emilie Meza NP [address] [place] [address] Nurse Practitioner Family Medicine 10/20/23 Lubrication Servicer Relationship Specialty Start Date End Date Fabricio Edouard MD [address] [place] [phone] PCP - General Family Medicine 10/20/23 Emilie Meza NP [address] [place] [address] Nurse Practitioner Family Medicine 10/20/23 Lubrication Servicer Relationship Specialty Start Date End Date Fabricio Edouard MD [address] [place] [address] PCP - General Family Medicine 10/20/23 Emilie Meza NP [address] [place] [address] Nurse Practitioner Family Medicine 10/20/23 Lubrication Servicer Relationship Specialty Start Date End Date Fabricio Edouard MD [address] [place] [phone] PCP - General Family Medicine 10/20/23 Emilie Meza NP [address] [place] [address] Nurse Practitioner Family Medicine 10/20/23 Lubrication Servicer Relationship Specialty Start Date End Date Fabricio Edouard MD [address] [place] [address] PCP - General Family Medicine 10/20/23 Emilie Meza NP [address] [place] [address] Nurse Practitioner Family Medicine 10/20/23 Lubrication Servicer Relationship Specialty Start Date End Date Fabricio Edouard MD [address] [place] [phone] PCP - General Family Medicine 10/20/23 Emilie Meza NP [address] [place] [address] Nurse Practitioner Family Medicine 10/20/23 Lubrication Servicer Relationship Specialty Start Date End Date Fabricio Edouard MD [address] [place] [address] PCP - General Family Medicine 10/20/23 Emilie Meza NP [address] [place] [address] Nurse Practitioner Family Medicine 10/20/23 Lubrication Servicer Relationship Specialty Start Date End Date Fabricio Edouard MD [address] [place] [address] PCP - General Family Medicine 10/20/23 Emilie Meza NP [address] [place] [address] Nurse Practitioner Family Medicine 10/20/23 Lubrication Servicer Relationship Specialty Start Date End Date Fabricio Edouard MD [address] [place] [address] PCP - General Family Medicine 10/20/23 Ирина Brown NP [address] [place] [address] Nurse Practitioner Family Medicine 05/25/24 Lubrication Servicer Relationship Specialty Start Date End Date Fabricio Edouard MD [address] [place] [address] PCP - General Family Medicine 10/20/23 Ирина Brown NP [address] [place] [phone] Nurse Practitioner Family Medicine 05/25/24 Team Status: Inactive Member Role Status Dates Emilie Meza , YOAN-C Primary Care Provider Ac tive Start: July 06, 2024 End: July 06, 2024 Alfonso Kendrick DO Attending Provider Active S tart: July 06, 2024 End: July 06, 2024 Lubrication Servicer Relationship Specialty Start Date End Date Fabricio Edouard MD [address] [place] [address] PCP - General Family Medicine 10/20/23 Ирина Brown NP [address] [place] [address] Nurse Practitioner Family Medicine 05/25/24 Lubrication Servicer Relationship Specialty Start Date End Date Fabricio Edouard MD [address] [place] [phone] PCP - General Family Medicine 10/20/23 Ирина Brown NP [address] [place] [address] Nurse Practitioner Family Medicine 05/25/24 Reason for Visit (unrecogniz ed section and content) Reason Onset Date Comments Med Refill 12/28/2023 Reason Comments Hospital Follow-up Reason Comments Hypertension Reason Onset Date Comments Med Refill 02/28/2024 Reason Onset Date Comments Med Refill 04/05/2024 Reason Comments Diabetes Reason Onset Date Comments Med Refill 07/10/2024 Reason Comments Medicare Annual Wellness Visit Initial Goals (unrecognized section and content) Goals may be documented in a n alternate section FOR RECORDS PERTAINING TO PATIENTS WHO ARE [...] BE BASED ON THE PRIMARY CLINICAL RECORDS. [employer] provides no warranty or guarantee of the accuracy or completeness of information in this document.
--- OUTSIDE RECORDS SUMMARY | 2024-09-15 07:37 | XMS_ITS | Encounter Summary ---
Author Organization [facility] Address [address] [place] [address] Phone Care Team Providers Care Waybill Clerk Name Role Phone Shaikh JAMES Schultz Primary Care Provider [phone] Encounter Details Date Type Department Care Team (Late st Contact Info) Description 12/25/2023 Scanned Document [facility] [address] [place] [phone] Scanning, Generic Provider Social History Tobacco Use Types Packs/Day Years Used Date Smoking Tobacco: Never Smokeless Tobacco: Never Alcohol Use Standard Drinks/Week Comments Never 0 (1 standard drink = 0.6 oz pur e alcohol) PHQ-2 Answer Date Recorded Patient Health Questionnaire-2 Score 6 07/01/2022 Comments Unknown Sex and Gender Information Value Date Recorded Sex Assigned at Not on file Legal Sex Female 10:52 AM EST Gender Identity Not on file Sexual Orientation Not on file documented as of this encounter Plan of Treatment Upcoming Encounters Date Type Department Care Team (Late st Contact Info) Description 10/18/2024 10:00 AM EDT Office Visit [facility] [address] [place] [address] Joseluis Casey, [address] [place] [address] Scheduled Orders Name Type Priority Associated Diagnoses Orde r Schedule Ultrasound- OnBase Scan Imaging O rdered: 12/25/2023 documented as of this encounter Procedures Procedure Name Priority Date/Time Associated Diagnosis Comments OUTSIDE IMAGING SCAN 12/25/2023 ECHOCARDIOGRAM 12/25/2023 documented in this encounter Results * Echocardiogram (12/25/2023) Narrative 12/25/2023 Ordered by an unspecified provider. us Generic Provider Scanning CV ECHO PROCEDURES Fin al Result * OUTSIDE IMAGING SCAN (12/25/2023) Anatomical Region Laterality Modality Other Narrative 12/25/2023 Ordered by an unspecified provider. us Generic Provider Scanning OUTSIDE SCAN Final Result documented in this encounter Visit Diagnoses Not on filedocumented in this encounter Additional Health Concerns Assessment Noted Time PHQ-9 Depression Total Score: 16 023 9:34 AM EDT A fall risk assessment has been complete d for the patient 10/19/2023 9:56 AM EDT documented as of this encounter Care Teams Waybill Clerk Relationship Specialty Start Date End Date Shaikh Schultz MD PCP - General 07/01/22 documented as of this encounter
--- OUTSIDE RECORDS SUMMARY | 2024-09-15 07:37 | XMS_ITS | Encounter Summary ---
Author Organization [facility] Address [address] [place] [address] Phone Care Team Providers Care Petrologist Name Role Phone Shaikh JAMES Schultz Primary Care Provider [phone] Shaikh JAMES Schultz Primary Care Provider [phone] Shaikh JAMES Schultz Primary Care Provider [phone] Encounter Details Date Type Department Care Team (Late st Contact Info) Description 06/22/2022 Orders Only [facility] [address] [place] [address] Conversion, Onbase Social History Tobacco Use Types Packs/Day Years Used Date Smoking Tobacco: Never Assessed Comments Unknown Sex and Gender Information Value Date Recorded Sex Assigned at Not on file Legal Sex Female 10:52 AM EST Gender Identity Not on file Sexual Orientation Not on file documented as of this encounter Plan of Treatment Upcoming Encounters Date Type Department Care Team (Late st Contact Info) Description 10/18/2024 10:00 AM EDT Office Visit [facility] [address] [place] [address] Joseluis Casey DO [address] [place] [address] Scheduled Orders Name Type Priority Associated Diagnoses Orde r Schedule OUTSIDE LAB SCAN Lab Ordered: 06/22/2022 documented as of this encounter Visit Diagnoses Not on filedocumented in this encounter Care Teams Petrologist Relationship Specialty Start Date End Date Shaikh Schultz MD PCP - General 07/01/22 Shaikh Schultz MD PCP - General 06/23/22 06/30/22 Shaikh Schultz MD PCP - General 06/22/22 06/22/22 documented as of this encounter
--- OUTSIDE RECORDS SUMMARY | 2024-09-15 07:37 | XMS_ITS | Patient Health Record ---
Author Organization [facility] [place] Address [address] [place] [address] Care Team Providers Care Associate Software Engineer Name Role Phone Marion RAMIREZ, [facility] Primary Care Provider Asad Ingram [phone] Results Component Value Reference Range Notes BNP Reviewed date:07/06/2024 09:22:08 PM Interpretation: Performing Lab: Notes/Report: [facility] , NT Pro B Type Natriuretic Pept 1727.0 <=1800.0 pg/mL Performing Lab: see note ML - [facility] LB LACTATE or LACTIC ACID Reviewed date:07/06/2024 09:22:08 PM Interpretation: Performing Lab: Notes/Report: [facility] , Lactate/Lactic Acid 2.0 0.4-2.0 mmol/L Performing Lab: see note ML - [facility] LB LIVER PROFILE Reviewed date:07/06/2024 09:22:08 PM Interpretation: Performing Lab: Notes/Report: [facility] , Bilirubin Total 0.5 0.2-1.0 mg/dL Bilirubin Direct 0.1 0.0-0.2 mg/dL Aspartate Amino Transferase 20 15-37 U/L Alanine Aminotransferase 21 14-59 U/L Alkaline Phosphatase 105 46-116 U/L Total Protein 7.4 6.4-8.2 g/dL Albumin Level 3.2 3.4-5.0 g/dL Globulin 4.2 Albumin Globulin Ratio 0.8 Performing Lab: see note ML - [facility] LB MAGNESIUM Reviewed date:07/06/2024 09:22:08 PM Interpretation: Performing Lab: Notes/Report: [facility] , Magnesium 1.1 1.8-2.4 mg/dL Performing Lab: see note ML - [facility] LB T4 Reviewed date:07/06/2024 09:22:08 PM Interpretation: Performing Lab: Notes/Report: [facility] , T4 Thyroxine 10.90 4.80-13.90 ug/dL Performing Lab: see note ML - [facility] LB TSH Reviewed date:07/06/2024 09:22:08 PM Interpretation: Performing Lab: Notes/Report: [facility] , Thyroid Stimulating Hormone 0.564 0.358-3.740 uIU/mL Performing Lab: see note ML - [facility] LB CBC AUTO DIFF Reviewed date:07/08/2024 01:18:34 PM Interpretation: Performing Lab: Notes/Report: [facility] , White Blood Count 8.2 4.0-11.0 10 3/uL Red Blood Count 4.56 4.20-5.40 10 6/uL Hemoglobin 14.0 12.0-16.0 g/dL Hematocrit 42.4 36.0-48.0 % Mean Corpuscular Volume 93.0 81.0-99.0 fL Mean Corpuscular Hemoglobin 30.7 26.7-34.0 pg Mean Corpuscular HGB Conc 33.0 29.9-35.2 g/dL Red Cell Distribution Width 13.8 11.0-15.0 % Platelet Count 172 150-450 10 3/uL Mean Platelet Volume 11.4 9.5-13.5 fL Neutrophils Percent Auto 61.3 43.0-75.0 % Lymphocytes Percent Auto 27.1 20.5-60.0 % Monocytes Percent Auto 10.0 1.7-12.0 % Eosinophils Percent Auto 0.4 0.9-7.0 % Basophils Percent Auto 0.6 0.2-2.0 % Immature Granulocytes Pct Auto 0.6 0.0-0.5 % Neutrophils Absolute Auto 5.1 1.4-6.5 10 3/uL Lymphocytes Absolute Auto 2.2 1.2-3.8 10 3/uL Monocytes Absolute Auto 0.8 0.3-0.8 10 3/uL Eosinophils Absolute Auto 0.0 0.0-0.7 10 3/uL Basophils Absolute Auto 0.1 0.0-0.1 10 3/uL Immature Granulocytes Abs Auto 0.05 0.00-0.03 10 3/uL Performing Lab: see note - [facility] PROF CHEM 8 (BAS METB) Reviewed date:07/08/2024 01:18:34 PM Interpretation: Performing Lab: Notes/Report: [facility] , Sodium 137 136-145 mmol/L Potassium 3.6 3.5-5.1 mmol/L Chloride 102 98-107 mmol/L Carbon Dioxide 24.0 21.0-32.0 mmol/L Anion Gap 14.6 Glucose 109 74-106 mg/dL Blood Urea Nitrogen 41.0 7.0-18.0 mg/dL Creatinine 1.66 0.55-1.02 mg/dL Estimated GFR ( Tracey 35 >=60 mL/min/1.73m 2 Estimated GFR (Non- Laila 29 >=60 mL/min/1.73m 2 BUN Creatinine Ratio 24.7 Calcium 8.4 8.5-10.1 mg/dL Performing Lab: see note - [facility] CA echo doppler complete Reviewed date:07/08/2024 01:18:34 PM Interpretation: Performing Lab: Notes/Report: Source Facility: [place] [address] Cardiology Report Signed Patient: MOHAN ESPINOZA MR#: [id number] : 1935 Acct:[id number] Age/Sex: 88 / F ADM Date: 07/06/24 Loc: MS 230-[address]: Stuart White M.D. Ordering Physician: Stuart White M.D. Date of Service: 07/07/24 Procedure(s): CA echo doppler complete Accession Number(s): [id number] cc: MALICK FAIR Douglas M.D. Patient Name: MOHAN ESPINOZA MR#: [id number] : 1935 Exam Date: 07/07/2024 Ordering Doctor: DR Stuart White . ECHOCARDIOGRAM REPORT PROCEDURE: CA ECHO DOPPLER COMPLETE INDICATIONS: Dyspnea, CABGx4, cardiac stents, atrial fibrillation, diabetes, Non Hodgkin's lymphoma COMPARISON: None. DESCRIPTION: COMPLETE ECHOCARDIOGRAM Real-time transthoracic echocardiography with 2D, M-mode, spectral and color flow Doppler performed. QUALITY: Technical quality was good. LEFT VENTRICLE: Normal chamber size. Mild concentric left ventricular hypertrophy. Normal systolic function. LV EF: Normal left ventricular ejection fraction, (55%). DIASTOLIC: Not adequately assessed due to heart rhythm. ATRIAL SEPTUM: LEFT ATRIUM: Moderate dilatation. RIGHT ATRIUM: Moderate dilatation. RIGHT VENTRICLE: Mild dilatation. Normal right ventricular systolic function. TRICUSPID VALVE: Normal mobility and thickness. No stenosis with mild to moderate regurgitation. Doppler studies reveal moderately (45-60) elevated right sided pressures. RVSP 56 mmHg MITRAL VALVE: Normal mobility and thickness. No evidence of mitral valve stenosis. There is no mitral annular calcification. Mild mitral regurgitation. AORTIC VALVE: Normal trileaflet appearance. Left coronary cusp appears to have diminished mobility. Mild aortic regurgitation. AORTIC ROOT: Normal diameter and appearance, measuring 3.4 cm. Ascending aorta is normal in size, measuring 2.9 cm. PULMONIC VALVE: Normal thickness and mobility. No stenosis. Mild regurgitation. PERICARDIUM: No evidence of pericardial effusion. IVC: IVC is dilated (2.4 cm), does not collapse. PLEURA: CONCLUSION: 1. Mild concentric left ventricular hypertrophy with normal systolic function. Estimated LVEF is 55%. 2. Mildly dilated right ventricle with normal systolic function. 3. Moderate biatrial dilatation. 4. Mild aortic and mitral regurgitation. 5. Mild to moderate tricuspid regurgitation. 6. Moderately elevated right-sided pressures. RVSP is 56 mmHg. Adult Echocardiography Procedure Report Left Ventricle LVEDD (3.7 - 5.6 cm): 4.57 cm LVESD (2.2 - 4.0 cm): 3.75 cm LVIVS thickness (0.6 - 1.2 cm): 1.18 cm LVPW thickness (0.5 - 1.0 cm): 1.05 cm LVOT Max Gradient: 2.01 mm[Hg] LVOT Area (cm2): 0.71 m/s Peak Velocity (LVOT): 0.71 m/s LVOT Diameter 2.17 cm Left Atrium LA Volume Index (2D A2C): 47.98 ml/m2 Left Atrium Systolic Dimension: 4.01 cm Mitral Valve Mitral Valve E-Wave Peak Velocity: 0.96 m/s Right Ventricle Aorta AO Root Diam: 3.39 cm Ascending Ao Diam: 2.92 cm Aortic Valve AoV Area (Peak Tito): 2.30 cm2, 2.30 cm2 Peak Velocity(Antegrade Flow): 1.14 m/s Peak Gradient(Antegrade Flow): 5.17 mm[Hg] Tricuspid Valve Peak Velocity (Regurgitant Flow): 3.22 m/s, 2.81 m/s, 3.12 m/s Pulmonic Valve Peak Velocity: 0.90 m/s Peak Gradient: 3.74 mm[Hg], 2.84 mm[Hg], 3.46 mm[Hg], 3.01 mm[Hg] Right Atrium Right Atrium Systolic Pressure: 73.41 ml, 73.41 ml Dictated by: Jane Randolph M.D. on 07/07/2024 at 14:55 Approved by: Jane Randolph M.D. on 07/07/2024 at 15:01 Dictated By: JANE RANDOLPH Signed By: 07/07/24 1503 DD/ 1501 TD/TT: Digital Media Strategist: [place] [address] Cardiology Report Signed Patient: MOHAN ESPINOZA MR#: [id number] : 1935 Acct:[id number] Age/Sex: 88 / F ADM Date: 07/06/24 Loc: MS 230-[address]: Di White M.D. Ordering Physician: Stuart White M.D. Date of Service: 07/07/24 Procedure(s): CA ech o doppler complete Accession Number(s): [id number] cc: GARY FAIR; Stuart White M.D. Patient Name: MOHAN ESPINOZA MR#: [id number] : 1935 Exam Date: 07/07/2024 Ordering Doctor: DR Stuart White . ECHOCARDIOGRAM REPORT PROCEDURE: CA ECHO DOPPLER COMPLETE INDICATIONS: Dyspnea , CABGx4, cardiac stents, atrial fibrillation, diabetes, Non Hodgki n's lymphoma COMPARISON: None. DESCRIPTION: COMPLET E ECHOCARDIOGRAM Real-time transthoracic echocardiography wit h 2D, M-mode, spectral and color flow Doppler performed. QUALITY: Technical quality was good. LEFT VENTRICLE: Norm al chamber size. Mild concentric left ventricular hypertrophy. Normal systolic function. LV EF: Normal left ventricular ejection fraction, (55%). DIASTOLIC: Not adequ ately assessed due to heart rhythm. ATRIAL SEPTUM: LEFT ATRIUM: Moderat e dilatation. RIGHT ATRIUM: Modera te dilatation. RIGHT VENTRICLE: Mil d dilatation. Normal right ventricular systolic function. TRICUSPID VALVE: Nor mal mobility and thickness. No stenosis with mild to moderate regurgitati on. Doppler studies reveal moderately (45-60) elevated right sided pressure s. RVSP 56 mmHg MITRAL VALVE: Normal mobility and thickness. No evidence of mitral valve stenosis. There is n o mitral annular calcification. Mild mitral regurgitation. AORTIC VALVE: Normal trileaflet appearance. Left coronary cusp appears to have diminished mobi lity. Mild aortic regurgitation. AORTIC ROOT: Normal diameter and appearance, measuring 3.4 cm. Ascending aorta is normal in s ize, measuring 2.9 cm. PULMONIC VALVE: Norm al thickness and mobility. No stenosis. Mild regurgitation. PERICARDIUM: No evid ence of pericardial effusion. IVC: IVC is dilated (2.4 cm), does not collapse. PLEURA: CONCLUSION: 1. Mild concentric l eft ventricular hypertrophy with normal systolic function. Estimated LVEF is 55%. 2. Mildly dilated ri ght ventricle with normal systolic function. 3. Moderate biatrial dilatation. 4. Mild aortic and m itral regurgitation. 5. Mild to moderate tricuspid regurgitation. 6. Moderately elevat ed right-sided pressures. RVSP is 56 mmHg. Adult Echocardiograp hy Procedure Report Left Ventricle LVEDD (3.7 - 5.6 cm) : 4.57 cm LVESD (2.2 - 4.0 cm) : 3.75 cm LVIVS thickness (0.6 - 1.2 cm): 1.18 cm LVPW thickness (0.5 - 1.0 cm): 1.05 cm LVOT Max Gradient: 2 .01 mm[Hg] LVOT Area (cm2): 0.71 m/s Peak Velocity (LVOT) : 0.71 m/s LVOT Diameter 2.17 cm Left Atrium LA Volume Index (2D A2C): 47.98 ml/m2 Left Atrium Systolic Dimension: 4.01 cm Mitral Valve Mitral Valve E-Wave Peak Velocity: 0.96 m/s Right Ventricle Aorta AO Root Diam: 3.39 cm Ascending Ao Diam: 2 .92 cm Aortic Valve AoV Area (Peak Tito): 2.30 cm2, 2.30 cm2 Peak Velocity(Antegr destiny Flow): 1.14 m/s Peak Gradient(Antegr destiny Flow): 5.17 mm[Hg] Tricuspid Valve Peak Velocity (Regurgitant Flow): 3.22 m/s, 2.81 m/s, 3.12 m/s Pulmonic Valve Peak Velocity: 0.90 m/s Peak Gradient: 3.74 mm[Hg], 2.84 mm[Hg], 3.46 mm[Hg], 3.01 mm[Hg] Right Atrium Right Atrium Systoli c Pressure: 73.41 ml, 73.41 ml Dictated by: Jane Randolph M.D. on 07/07/2024 at 14:55 Approved by: Jane Randolph M.D. on 07/07/2024 at 15:01 Dictated By: JANE RANDOLPH Signed By: 07/07/24 1503 DD/ 1501 TD/TT: Digital Media Strategist: CBC AUTO DIFF Reviewed date:07/08/2024 01:18:34 PM Interpretation: Performing Lab: Notes/Report: [facility] , White Blood Count 7.5 4.0-11.0 10 3/uL Red Blood Count 4.00 4.20-5.40 10 6/uL Hemoglobin 12.5 12.0-16.0 g/dL Hematocrit 37.2 36.0-48.0 % Mean Corpuscular Volume 93.0 81.0-99.0 fL Mean Corpuscular Hemoglobin 31.3 26.7-34.0 pg Mean Corpuscular HGB Conc 33.6 29.9-35.2 g/dL Red Cell Distribution Width 13.7 11.0-15.0 % Platelet Count 171 150-450 10 3/uL Mean Platelet Volume 11.6 9.5-13.5 fL Neutrophils Percent Auto 56.1 43.0-75.0 % Lymphocytes Percent Auto 27.5 20.5-60.0 % Monocytes Percent Auto 12.3 1.7-12.0 % Eosinophils Percent Auto 2.8 0.9-7.0 % Basophils Percent Auto 0.8 0.2-2.0 % Immature Granulocytes Pct Auto 0.5 0.0-0.5 % Neutrophils Absolute Auto 4.2 1.4-6.5 10 3/uL Lymphocytes Absolute Auto 2.1 1.2-3.8 10 3/uL Monocytes Absolute Auto 0.9 0.3-0.8 10 3/uL Eosinophils Absolute Auto 0.2 0.0-0.7 10 3/uL Basophils Absolute Auto 0.1 0.0-0.1 10 3/uL Immature Granulocytes Abs Auto 0.04 0.00-0.03 10 3/uL Performing Lab: see note ML - [facility] LB MAGNESIUM Reviewed date:07/08/2024 01:18:34 PM Interpretation: Performing Lab: Notes/Report: [facility] , Magnesium 1.8 1.8-2.4 mg/dL Performing Lab: see note - [facility] LB PROF CHEM 8 (BAS METB) Reviewed date:07/08/2024 01:18:34 PM Interpretation: Performing Lab: Notes/Report: [facility] , Sodium 139 136-145 mmol/L Potassium 3.8 3.5-5.1 mmol/L Chloride 104 98-107 mmol/L Carbon Dioxide 27.0 21.0-32.0 mmol/L Anion Gap 11.8 Glucose 98 74-106 mg/dL Blood Urea Nitrogen 38.0 7.0-18.0 mg/dL Creatinine 1.26 0.55-1.02 mg/dL Estimated GFR ( Tracey 49 >=60 mL/min/1.73m 2 Estimated GFR (Non- Laila 40 >=60 mL/min/1.73m 2 BUN Creatinine Ratio 30.2 Calcium 8.4 8.5-10.1 mg/dL Performing Lab: see note ML - [facility] LB CBC AUTO DIFF Reviewed date:07/09/2024 07:34:32 PM Interpretation: Performing Lab: Notes/Report: [facility] , White Blood Count 8.1 4.0-11.0 10 3/uL Red Blood Count 3.99 4.20-5.40 10 6/uL Hemoglobin 12.3 12.0-16.0 g/dL Hematocrit 37.5 36.0-48.0 % Mean Corpuscular Volume 94.0 81.0-99.0 fL Mean Corpuscular Hemoglobin 30.8 26.7-34.0 pg Mean Corpuscular HGB Conc 32.8 29.9-35.2 g/dL Red Cell Distribution Width 13.6 11.0-15.0 % Platelet Count 168 150-450 10 3/uL Mean Platelet Volume 11.4 9.5-13.5 fL Neutrophils Percent Auto 59.2 43.0-75.0 % Lymphocytes Percent Auto 24.3 20.5-60.0 % Monocytes Percent Auto 13.2 1.7-12.0 % Eosinophils Percent Auto 2.2 0.9-7.0 % Basophils Percent Auto 0.6 0.2-2.0 % Immature Granulocytes Pct Auto 0.5 0.0-0.5 % Neutrophils Absolute Auto 4.8 1.4-6.5 10 3/uL Lymphocytes Absolute Auto 2.0 1.2-3.8 10 3/uL Monocytes Absolute Auto 1.1 0.3-0.8 10 3/uL Eosinophils Absolute Auto 0.2 0.0-0.7 10 3/uL Basophils Absolute Auto 0.1 0.0-0.1 10 3/uL Immature Granulocytes Abs Auto 0.04 0.00-0.03 10 3/uL Performing Lab: see note ML - [facility] LB MAGNESIUM Reviewed date:07/09/2024 07:34:32 PM Interpretation: Performing Lab: Notes/Report: [facility] , Magnesium 1.7 1.8-2.4 mg/dL Performing Lab: see note ML - [facility] LB PROF CHEM 8 (BAS METB) Reviewed date:07/09/2024 07:34:32 PM Interpretation: Performing Lab: Notes/Report: [facility] , Sodium 138 136-145 mmol/L Potassium 4.0 3.5-5.1 mmol/L Chloride 105 98-107 mmol/L Carbon Dioxide 27.2 21.0-32.0 mmol/L Anion Gap 9.8 Glucose 108 74-106 mg/dL Blood Urea Nitrogen 33.0 7.0-18.0 mg/dL Creatinine 1.23 0.55-1.02 mg/dL Estimated GFR ( Tracey 50 >=60 mL/min/1.73m 2 Estimated GFR (Non- Laila 41 >=60 mL/min/1.73m 2 BUN Creatinine Ratio 26.8 Calcium 8.8 8.5-10.1 mg/dL Performing Lab: see note ML - [facility] LB Reason For Referral No Information Problems Problem Type SNOMED Code ICD Code Onset Dates Problem Status W/U Status Risk Notes Problem 71717141 Type 2 diabetes mellitus with diabetic chronic kidney disease (E11.22) Active confirmed Problem 29358443 Heart failure, unspecified (I50.9) Active confirmed Problem 433573653 Constipation, unspecified (K59.00) Active confirmed Problem Atrial fibrillation with RVR (I48.91) Active confirmed Problem Leukocytosis (878650404) Leukocytosis (D72.829) Active confirmed Problem 306451925 Other persistent atrial fibrillation (I48.19) Active confirmed Problem 050866340 Chronic kidney disease, stage 3a (N18.31) Active confirmed Encounters Encounter Location Date Provider Diagnosis [facility] [address] [place] [address] 07/06/2024 Asad White Plan Of Treatment No Information Insurance Providers Payer Name Payer Address Payer Phone Subscriber Number Group Number Insured Name Patient Relationship to Insured Coverage Start Date Coverage End Date [place] [address] [place] [address] [id number] Mohan Espinoza Self - patient is the insured 3 [facility] [address] [place], [place] [id number] [phone] [id number] NICOLE ESPINOZA Spouse - patient is the spouse of the insured [id number]
--- OUTSIDE RECORDS SUMMARY | 2024-09-15 07:37 | XMS_ITS | Encounter Summary ---
Author Organization [facility] Address [address] [place] [address] Care Team Providers Care Lactation Coordinator Name Role Phone Fabricio Edouard MD Primary Care Provider [phone] Najma Meza CATTLE FARMER Unavailable [phone] Ирина Brown [employer]ATT[employer] FARMER Unavailable [phone] Encounter Details Date Type Department Care Team (Late st Contact Info) Description 05/16/2024 Abstract [facility] [address] [place] [phone] Najma Meza NP Social History Tobacco Use Types Packs/Day Years Used Date Smoking Tobacco: Never Passive Smoke Exposure: Never Smokeless Tobacco: Never Alcohol Use Standard Drinks/Week Comments Never 0 (1 standard drink = 0.6 oz pur e alcohol) PHQ-2 Answer Date Recorded Patient Health Questionnaire-2 Score 0 10/25/2023 Comments No Sex and Gender Information Value Date Recorded Sex Assigned at Not on file Legal Sex Female 7:06 PM EDT Gender Identity Not on file Sexual Orientation Not on file documented as of this encounter Plan of Treatment Upcoming Encounters Date Type Department Care Team (Late st Contact Info) Description 10/31/2024 9:20 AM EDT Office Visit [facility] [address] [place] [phone] Ирина Brown [employer]ER [address] [place] [address] 09/04/2025 10:00 AM EDT Office Visit [facility] [address] [place] [address] Ирина Brown, YOAN [address] [place] [phone] documented as of this encounter Visit Diagnoses Not on filedocumented in this encounter Additional Health Concerns Assessment Noted Time PHQ-9 Depression Total Score: 2 04/12/19 24 9:36 AM EST documented as of this encounter Care Teams Lactation Coordinator Relationship Specialty Start Date End Date Fabricio Edouard MD [address] [place] [phone] PCP - General Family Medicine 10/20/23 Najma Meza NP [address] [place] [address] Nurse Practitioner Family Medicine 10/20/23 05/24/24 Ирина Brown NP [address] [place] [address] Nurse Practitioner Family Medicine 05/25/24 documented as of this encounter
--- OUTSIDE RECORDS SUMMARY | 2024-09-15 07:37 | XMS_ITS | Clinical Summary ---
Author Organization [facility] Address [id number] [address] [place] [address] Care Team Providers Care Senior Category Manager Name Role Phone Jose Ewing MD Primary Care Provider Unava ilable Allergies Active Allergy Reactions Criticality Noted Date Comments Albuterol Other (See Comments) Medium 11/21/2017 pt states hurt my lungs Medications DIGOXIN ORAL Take 125 mcg by mouth daily. Active allopurinol (ZYLOPRIM) 100 mg tablet Take 100 mg by mouth daily. Active metoprolol tartrate (LOPRESSOR) 25 mg tablet Take 25 mg by mouth 2 (two) times a day. Active ramipril (ALTACE) 5 mg capsule Take 5 mg by mouth daily. Active probenecid (BENEMID) 500 mg tablet Take 500 mg by mouth daily. Active acetaminophen (TYLENOL ARTHRITIS PAIN) 650 mg 8 hr tablet Take 1,300 mg by mouth daily. PATIENT TAKES 2 EVERY AM Active ciprofloxacin HCl (CIPRO) 500 mg tablet Take 500 mg by mouth 2 (two) times a day. FOR 10 DAYS 7 Active cholecalciferol , vitamin D3, (cholecalcifero l) 1,000 units tablet Take 1,000 Units by mouth daily. Active spironolactone (ALDACTONE) 25 mg tablet Take 25 mg by mouth daily. Active aspirin 81 mg Take 81 mg by mouth daily. Active loratadine 10 mg capsule Take 10 mg by mouth daily. Active vitamin E 400 units capsule Take 400 Units by mouth daily. Active warfarin (COUMADIN) 5 mg tablet Take 5 mg by mouth daily. TAKE 5MG QD EXCEPT ON MONDAYS TAKE 7.5MG 9 Active levothyroxine (SYNTHROID, LEVOTHROID) 200 MCG tablet Take 200 mcg by mouth daily. Active metFORMIN (GLUCOPHAGE) 500 mg tablet Take 500 mg by mouth 2 (two) times a day with meals. 7 Active glipiZIDE (GLUCOTROL) 5 mg tablet Take 5 mg by mouth 2 (two) times a day before meals. 8 Active warfarin (COUMADIN) 5 mg tablet Take 7.5 mg by mouth daily. 7.5 ON WEDNESDAYS ONLY 8 Active furosemide (LASIX) 20 mg tablet Take 20 mg by mouth 2 (two) times a day. Active clopidogrel (PLAVIX) 75 mg tablet Take 75 mg by mouth daily. Active Social History Tobacco Use Types Packs/Day Years Used Date Smoking Tobacco: Never Assessed Childcare Answer Date Recorded Childcare Unknown 08/25/2018 Employment Answer Date Recorded Employment Unknown 08/25/2018 Purpose - Life Answer Date Recorded Purpose and direction in life Unknown Comments Unknown Sex and Gender Information Value Date Recorded Sex Assigned at Not on file Legal Sex Female 11:44 AM EDT Gender Identity Not on file Sexual Orientation Not on file Last Filed Vital Signs Vital Sign Reading Time Taken Comments Blood Pressure 149/68 05/25/2018 10:56 AM EST Pulse 73 05/25/2018 10:56 AM EST Temperature 36.3 C (97.4 F) 05/25/2018 10:56 AM EST Respiratory Rate 21 05/25/2018 10:56 AM EST Oxygen Saturation 98% 05/07/2018 2:47 PM EST Inhaled Oxygen Concentration - - Weight 140.2 kg (309 lb) 05/07/2018 2:47 PM EST Height 172.7 cm (5' 8 ) 09/07/2016 1:00 PM EDT Body Mass Index 46.98 09/07/2016 1:00 PM EDT Plan of Treatment Not on file Medical Devices Not on file Insurance MEDICARE Care Teams Senior Category Manager Relationship Specialty Start Date End Date Jose Ewing MD PCP - General Family Medicine 09/04/16
--- OUTSIDE RECORDS SUMMARY | 2024-09-15 07:37 | XMS_ITS | Encounter Summary ---
Author Organization [facility] Address [address] [place] [address] Phone Care Team Providers Care Occup Ther Name Role Phone Shaikh JAMES Schultz Primary Care Provider [phone] Encounter Details Date Type Department Care Team (Late st Contact Info) Description 12/27/2023 Scanned Document [facility] [address] [place] [phone] Scanning, Generic Provider Social History Tobacco Use [...] Description 10/18/2024 10:00 AM EDT Office Visit [facility] [address] [facility] [address] [place] [address] Joseluis Casey DO [address] [facility] [address] [place] [address] documented as of this encounter Visit Diagnoses Not on filedocumented in this encounter Additional Health Concerns Assessment Noted Time PHQ-9 Depression Total Score: 16 023 9:34 AM EDT A fall risk assessment has been complete d for the patient 10/19/2023 9:56 AM EDT documented as of this encounter Care Teams Occup Ther Relationship Specialty Start Date End Date Shaikh Schultz MD PCP - General 07/01/22 documented as of this encounter
--- OUTSIDE RECORDS SUMMARY | 2024-09-15 07:37 | XMS_ITS | Clinical Summary ---
Author Organization [facility] Address [address] [place] [address] Phone Care Team Providers Care Bus And Sys Integration Senior Manager Name Role Phone Shaikh JAMES Schultz Primary Care Provider [phone] Allergies Active Allergy Reactions Criticality Noted Date Comments Kody Inhibitors Other 10/19/2023 hypotension Arb-Angiotensin Receptor Antagonist Other 10/19/2023 hypotension Jqyuzpl-Xcb-Gdh Reductase Inhibitors Myalgia 06/02/2023 Medications allopurinol (Zyloprim) 300 mg tablet Take 1 tablet (300 mg) by mouth once daily. Active furosemide (Lasix) 40 mg tablet Take 1 tablet (40 mg) by mouth once daily. Active glipiZIDE XL (Glucotrol XL) 10 mg 24 hr tablet Take 1 tablet (10 mg) by mouth 2 times a day. Do not crush, chew, or split. Active levothyroxine (Synthroid, Levoxyl) 200 mcg tablet Take 1 tablet (200 mcg) by mouth once daily in the morning. Take before meals. Active metFORMIN (Glucophage) 500 mg tablet Take 1 tablet (500 mg) by mouth 2 times daily (morning and late afternoon). Active rivaroxaban (Xarelto) 15 mg tablet Take 1 tablet (15 mg) by mouth once daily in the evening. Take with meals. Take with food. Active metoprolol succinate XL (Toprol-XL) 50 mg 24 hr tabletIndication s:ASHD (arterioscleroti c heart disease),Atrial fibrillation, unspecified type (Multi),Congesti ve heart failure, unspecified HF chronicity, unspecified heart failure type Take 3 tablets (150 mg) by mouth once daily. Do not crush or chew. 270 tablet 3 07/08/2023 Active Active Problems Problem Noted Date Diagnosed Date Statin intolerance 10/19/2023 Other pulmonary embolism without acute cor pulmo nale 10/19/2023 History of PTCA 10/19/2023 A-fib (Multi) 06/02/2023 ASHD (arteriosclerotic heart disease) 06/02/2023 Congestive heart failure 06/02/2023 Chronic renal insufficiency 06/02/2023 Diabetes (Multi) 06/02/2023 Factor V Leiden (Multi) 06/02/2023 History of coronary artery bypass graft 06/02/19 24 History of non-ST elevation myocardial infarctio n (NSTEMI) 06/02/2023 Cardiomyopathy, ischemic 06/02/2023 Immunizations Immunization Administration Dates Next Due Influenza, injectable, quadrivalent 02/26/2014 Influenza, seasonal, injectable 12/26/2012 Influenza, trivalent, adjuvanted 021,12/28/2019,01/18/2019, 018,01/07/2017 Family History Medical History Relation Name Comments coronary syndrome Brother covid Brother cva Brother Diabetes Father cva Mother Lung disease Sister Relation Name Status Comments Brother Father Mother Sister Social History Tobacco Use Types Packs/Day Years Used Date Smoking Tobacco: Never Smokeless Tobacco: Never Tobacco Cessation:Counseling Given: Not Answered Alcohol Use Standard Drinks/Week Comments Never 0 [...] Sign Reading Time Taken Comments Blood Pressure 102/68 10/19/2023 9:55 AM EDT Pulse 68 10/19/2023 9:55 AM EDT Temperature - - Respiratory Rate - - Oxygen Saturation - - Inhaled Oxygen Concentration - - Weight - - Height 172.7 cm (5' 8 ) 10/19/2023 9:55 AM EDT Body Mass Index - - Plan of Treatment Upcoming Encounters Date Type Department Care Team (Late st Contact Info) Description 10/18/2024 10:00 AM EDT Office Visit [place] [id number] [phone] Joseluis Casey, DO [facility], [address] [place], [place] [id number] Health Maintenance Due Date Last Done Comments Bone Density Scan 1937 Creatinine Level 1937 Diabetes: Hemoglobin A1C 1937 Diabetes: Urine Protein Screening 1937 Lipid Panel 1935 Medicare Annual Wellness Visit (AWV) 1937 Potassium Level 1937 Skin Cancer Screening 1937 TSH Level 1937 Diabetes: Retinopathy Screening 07/19/1947 Zoster Vaccines (1 of 2) 1956 DTaP/Tdap/Td Vaccines (1 - Tdap) 07/19/1959 Pneumococcal Vaccine (2 of 2 - PCV) 03/22/2003 03/22/2002 RSV High Risk: (Elderly (60+) or Population) (1 - 1-dose 75+ series) 2012 COVID-19 Vaccine ( - season) 2023 01/21/2021, 05/21/2020, 04/23/2020 Influenza Vaccine (Season Ended) 2024 12/31/2020, 12/28/2019, 01/18/2019, Additional history exists Echocardiogram 12/24/2024 12/25/2023, 06/22/2022 HIB Vaccines Aged Out No longer eligi ble based on patient's age to complete this topic HPV Vaccines (No Doses Required) Completed Hepatitis A Vaccines Aged Out No long er eligible based on patient's age to complete this topic Hepatitis B Vaccines Aged Out No long er eligible based on patient's age to complete this topic IPV Vaccines Aged Out No longer eligi ble based on patient's age to complete this topic Meningococcal Vaccine Aged Out No faye aliza eligible based on patient's age to complete this topic Rotavirus Vaccines Aged Out No longer eligible based on patient's age to complete this topic Procedures Procedure Name Priority Date/Time Associated Diagnosis Comments ECHOCARDIOGRAM 12/25/2023 from Last 3 Months or Most Recently Relevant to Health Maintenance Results * Echocardiogram (12/25/2023) Narrative 12/25/2023 Ordered by an unspecified provider. us Generic Provider Scanning CV ECHO PROCEDURES Fin al Result from Last 3 Months or Most Recently Relevant to Health Maintenance Insurance [facility] MEDICARE [employer]ROAD [facility] MEDICARE RAILROAD Care Teams Bus And Sys Integration Senior Manager Relationship Specialty Start Date End Date Shaikh Schultz MD PCP - General 07/01/22
--- OUTSIDE RECORDS SUMMARY | 2024-09-15 07:37 | XMS_ITS | Clinical Summary ---
Author Organization [facility] Address [address] [place] [address] Care Team Providers Care Shearing Supervisor Name Role Phone Jose Ewing Primary Care Provider Allergies Active Allergy Reactions Criticality Noted Date Comments Albuterol Unknown 11/04/2015 Clarithromycin Unknown 11/04/2015 Atorvastatin Calcium Diarrhea 11/04/2015 Ezetimibe Unknown 11/04/2015 Headaches Medications ramipril (ALTACE) 10 mg capsule Take 10 mg by mouth once daily. Active digoxin (LANOXIN) 250 mcg tablet Take 250 mcg by mouth once daily. Active metoprolol tartrate, short acting, (LOPRESSOR) 25 mg tablet Take 25 mg by mouth twice daily. Active probenecid 500 mg tablet Take 500 mg by mouth once daily. Active metFORMIN (GLUCOPHAGE) 500 mg tablet Take 500 mg by mouth twice daily with meals. Active warfarin (COUMADIN) 5 mg tablet Take 5 mg by mouth daily as directed. Dose may vary. Active levothyroxine (SYNTHROID) 175 mcg tablet Take 175 mcg by mouth daily before breakfast. 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 Last address used for calculation Not on file 02/29/2020 Comments No Sex and Gender Information Value Date Recorded Sex Assigned at Not on file Legal Sex Female 10:18 AM EDT Gender Identity Not on file Sexual Orientation Not on file Last Filed Vital Signs Vital Sign Reading Time Taken Comments Blood Pressure 138/66 09/08/2018 2:21 PM EDT Pulse 86 09/08/2018 2:21 PM EDT Temperature 36.5 C (97.7 F) 09/08/2018 2:21 PM EDT Respiratory Rate 20 09/08/2018 2:21 PM EDT Oxygen Saturation 96% 09/08/2018 2:2 1 PM EDT Inhaled Oxygen Concentration - - Weight 135.2 kg (298 lb) 09/10/2016 1:1 6 PM EDT per patient 08/2016 Height 172.7 cm (5' 7.99 ) 09/09/2017 2 :00 PM EDT Body Mass Index 45.32 09/10/2016 1:16 PM EDT Plan of Treatment Health Maintenance Due Date Last Done Comments Anxiety Screening 07[birth year]19/1953 Depression Screening 07/19/1953 DTaP,Tdap,Td Vaccine (1 - Tdap) 1956 Pneumococcal Vaccine: 50+ (1 of 1 - PCV) 07/19/1987 Shingrix Vaccine (1 of 2) 07/19/1987 Bone Density Screening 2002 RSV Vaccine (1 - 1-dose 75+ series) 2012 Diabetes Screening 09/08/2021 09/08/2018, 11/11/2017 Covid-19 Vaccine ( - season) 2023 Advance Directive Discussion 03/22/2024 Influenza Vaccine (Season Ended) 2024 Procedures Procedure Name Priority Date/Time Associated Diagnosis Comments COMPREHENSIVE METABOLIC PANEL Routine 09/08/2018 2:32 PM EDT Hairy cell leukemia, in remission (HCC) from Last 3 Months or Most Recently Relevant to Health Maintenance Results * (ABNORMAL) COMP METABOLIC PANEL (09/08/2018 2:32 PM EDT) [facility] Protein, Total 6.9 6.3 - 8.0 g/dL 09/09/2018 10:31 AM [facility] Albumin 3.8(L) 3.9 - 4.9 g/dL 09/09/2018 10:31 AM [facility] Calcium 9.3 8.5 - 10.2 mg/dL 09/09/2018 10:31 AM [facility] Bilirubin, Total 0.2 0.2 - 1.3 mg/dL 09/09/2018 10:31 AM [facility] Alkaline Phosphatase 78 34 - 123 U/L 09/09/2018 10:31 AM [facility] AST 38(H) 13 - 35 U/L 09/09/2018 10:31 AM [facility] Glucose 237(H) 74 - 99 mg/dL 09/09/2018 10:31 AM [facility] Comment: The [place] Diabetes Association (ADA) provides guidance for cutoff values for fasting glucose and random glucose. The ADA defines fasting as no caloric intake for at least 8 hours. Fasting plasma glucose results between 100 to 125 mg/dL indicate increased risk for diabetes (prediabetes). Fasting plasma glucose results greater than or equal to 126 mg/dL meet the criteria for diagnosis of diabetes. In the absence of unequivocal hyperglycemia, results should be confirmed by repeat testing. In a patient with classic symptoms of hyperglycemia or hyperglycemic crisis, random plasma glucose results greater than or equal to 200 mg/dL meet the criteria for diagnosis of diabetes. Reference: Standards of Medical Care in Diabetes 2016, [place] Diabetes Association. Diabetes Care. 2016.39(Suppl 1). BUN 42(H) 7 - 21 mg/dL 09/09/2018 10:31 AM [facility] Creatinine 1.19(H) 0.58 - 0.96 mg/dL 09/09/2018 10:31 AM [facility] Sodium 137 136 - 144 mmol/L 09/09/2018 10:31 AM [facility] Potassium 5.1 3.7 - 5.1 mmol/L 09/09/2018 10:31 AM [facility] Chloride 99 97 - 105 mmol/L 09/09/2018 10:31 AM [facility] CO2 22 22 - 30 mmol/L 09/09/2018 10:31 AM EDT [facility] Anion Gap 16 9 - 18 mmol/L 09/09/2018 10:31 AM EDT [facility] ALT 25 7 - 38 U/L 09/09/2018 10:31 AM EDT [facility] eGFR- 53 09/09/2018 10:31 AM EDT [facility] eGFR-All Other Races 44 . 09/09/2018 10:31 AM EDT [facility] Comment: eGFR (Estimated GFR) Units of measure: mL/min/1.73 meters squared eGFR is derived from the reexpressed MDRD Study equation using the following parameters: serum creatinine, age, gender and race. The creatinine assay has been calibrated to be traceable to IDMS. An eGFR <60 mL/min/1.73m2 for >3 months is consistent with chronic kidney disease. Refer to KDOQI guidelines for clinical interpretation. In patients with unstable renal function, e.g. those with acute kidney injury, the eGFR may not accurately reflect actual GFR. Blood specimen (specimen) 09/08/2018 2:32 PM EDT 09/08/2018 2:36 PM EDT us Char Velasquez PA-C LABORATORY Final Result [facility] [address] [place] [address] [facility] [address] [place] [address] from Last 3 Months or Most Recently Relevant to Health Maintenance Insurance MEDICARE RAILROAD [facility] MEDICARE Care Teams Shearing Supervisor Relationship Specialty Start Date End Date Jose Ewing [address] [place] [phone] PCP - General Family Medicine 10/29/15
--- OUTSIDE RECORDS SUMMARY | 2024-09-15 07:37 | XMS_ITS | Referral Summary ---
Author Organization [facility] Address [address] [place] [address] Care Team Providers Care Oxygen Furnace Operator Name Role Phone Shaikh JAMES Schultz Primary Care Provider [phone] Allergies Active Allergy Reactions Criticality Noted Date Comments Albuterol 12/09/2021 Clarithromycin 12/09/2021 Medications aspirin 81 mg EC tablet Take 1 tablet every day by oral route. 1 Active furosemide (Lasix) 40 mg tablet Take 1 tablet by mouth in the morning. Active glipiZIDE (Glucotrol) 10 mg tablet Take 1 tablet by mouth in the morning and at bedtime. Active levothyroxine (Synthroid, Levoxyl) 200 mcg tablet Take 1 tablet by mouth in the morning. Active metFORMIN (Glucophage) 500 mg tablet Take 1 tablet by mouth in the morning and at bedtime. Active allopurinol (Zyloprim) 300 mg tablet Take 300 mg by mouth in the morning. Active pantoprazole (ProtoNix) 40 mg EC tabletIndications :Atherosclerosis of chene[place] coronary artery of [place] heart without angina pectoris,Paroxysm al atrial fibrillation (CMS/HCC) Take 1 tablet (40 mg) by mouth before breakfast. Do not crush, chew, or split. 90 tablet 3 2 Active rivaroxaban (Xarelto) 20 mg tabletIndications :Paroxysmal atrial fibrillation (CMS/HCC),History of pulmonary embolism,History of deep vein thrombosis Take 1 tablet (20 mg) by mouth with evening meal. Take with food. 90 tablet 3 2 Active metoprolol succinate XL (Toprol-XL) 100 mg 24 hr tabletIndications :Essential hypertension Take 1 tablet (100 mg) by mouth in the morning. 90 tablet 3 3 Active losartan (Cozaar) 100 mg tabletIndications :Essential hypertension Take 1 tablet (100 mg) by mouth in the morning. 90 tablet 3 Active Active Problems Problem Noted Date Diagnosed Date History of coronary artery bypass graft 02/10/20 History of pulmonary embolism 02/09/2022 History of deep vein thrombosis 02/09/2022 Occlusion of coronary artery bypass graft 2021 Pulmonary embolism 12/09/2021 Angina pectoris 10/29/2011 Atrial fibrillation 10/29/2011 Gastroesophageal reflux disease 10/29/2011 Type 1 diabetes mellitus 10/29/2011 Acquired hypothyroidism 12/15/2010 Coronary atherosclerosis 12/15/2010 Dyspnea 12/15/2010 Essential hypertension 12/15/2010 Gout 12/15/2010 History of cardiovascular disorder 12/15/2010 Hyperlipidemia 12/15/2010 Morbid obesity 12/15/2010 Immunizations Immunization Administration Dates Next Due Influenza, injectable, quadrivalent 02/26/2014 Influenza, seasonal, injectable 12/26/2012 Influenza, trivalent, adjuvanted 021,12/28/2019,01/18/2019,2017,01/07/2017 Moderna 12 YR UP Vaccine BiV alent Booster 01/21/2021,05/21/2020,04/23/2020 Social History Tobacco Use Types Packs/Day Years Used Date Smoking Tobacco: Never Smokeless Tobacco: Never Tobacco Cessation:Counseling Given: Not Answered Alcohol Use Standard Drinks/Week Comments Not Currently 0 (1 standard drink = 0.6 oz pur e alcohol) [place] Safety & Environment Answer Date Rec orded Fear of Current or Ex-Partner Not on file Emotionally Abused Not on file 05/13/2023 Physically Abused Not on file 05/13/2023 Sexually Abused Not on file 05/13/2023 Physically or Sexually Abused Not on file Comments Unknown Sex and Gender Information Value Date Recorded Sex Assigned at Not on file Legal Sex Female 10:07 PM EDT Gender Identity Not on file Sexual Orientation Not on file Last Filed Vital Signs Vital Sign Reading Time Taken Comments Blood Pressure 149/87 02/09/2022 4:21 PM EST Pulse 72 02/09/2022 4:21 PM EST Temperature - - Respiratory Rate - - Oxygen Saturation 96% 02/09/2022 4:21 PM EST Inhaled Oxygen Concentration - - Weight 134 kg (295 lb) 02/09/2022 4:[address] ated Height 172.7 cm (5' 8 ) 02/09/2022 4:21 PM EST Body Mass Index 44.85 02/09/2022 4:21 PM EST Plan of Treatment Not on [place] [address] [facility] Care Teams Oxygen Furnace Operator Relationship Specialty Start Date End Date Shaikh Schultz MD [address] [place] [phone] PCP - General Family Medicine 12/09/21
--- OUTSIDE RECORDS SUMMARY | 2024-09-15 07:37 | XMS_ITS | Encounter Summary ---
Author Organization [facility] Address [address] [place] [address] Phone Care Team Providers Care Triple Valve Mechanic Name Role Phone Shaikh JAMES Schultz Primary Care Provider [phone] Encounter Details Date Type Department Care Team (Late st Contact Info) Description 12/28/2023 Scanned Document [facility] [address] [place] [phone] Scanning, Generic Provider Social History Tobacco Use [...] Description 10/18/2024 10:00 AM EDT [facility] [address] [facility] [address] [place] [address] Joseluis Casey DO 703 [facility], [address] [place] [address] documented as of this encounter Visit Diagnoses Not on filedocumented in this encounter Additional Health Concerns Assessment Noted Time PHQ-9 Depression Total Score: 16 023 9:34 AM EDT A fall risk assessment has been complete d for the patient 10/19/2023 9:56 AM EDT documented as of this encounter Care Teams Triple Valve Mechanic Relationship Specialty Start Date End Date Shaikh Schultz MD PCP - General 07/01/22 documented as of this encounter
--- OUTSIDE RECORDS SUMMARY | 2024-09-15 07:37 | XMS_ITS | Encounter Summary ---
Author Organization [facility] Address [address] [place] [address] Phone Care Team Providers Care Veterinary Poultry Inspector Name Role Phone Shaikh JAMES Schultz Primary Care Provider Encounter Details Date Type Department Care Team (Late st Contact Info) Description 12/26/2023 Scanned Document [facility] [address] [place] [phone] Scanning, Generic Provider Social History Tobacco Use [...] Description 10/18/2024 10:00 AM EDT Office Visit [facility] [address] [facility] [address] [place] [address] Joseluis Casey DO 703 [facility] 2, [address] [place] [address] documented as of this encounter Visit Diagnoses Not on filedocumented in this encounter Additional Health Concerns Assessment Noted Time PHQ-9 Depression Total Score: 16 023 9:34 AM EDT A fall risk assessment has been complete d for the patient 10/19/2023 9:56 AM EDT documented as of this encounter Care Teams Veterinary Poultry Inspector Relationship Specialty Start Date End Date Shaikh Schultz MD PCP - General 07/01/22 documented as of this encounter
--- OUTSIDE RECORDS SUMMARY | 2024-09-15 07:37 | XMS_ITS | Encounter Summary ---
Author Organization [facility] Address [address] [place] [address] Phone Care Team Providers Care Roller Hand Name Role Phone Shaikh JAMES Schultz Primary Care Provider [phone] Encounter Details Date Type Department Care Team (Late st Contact Info) Description 10/01/2022 Orders Only [facility] [address] [place] [address] Conversion, Onbase Social History Tobacco Use Types Packs/Day Years Used Date Smoking Tobacco: Never Assessed PHQ-2 Answer Date Recorded Patient Health Questionnaire-2 [...] Description 10/18/2024 10:00 AM EDT Office Visit [place] [address] [facility] [address] [place] [address] Joseluis Casey DO 703 [facility] 2, [address] [place] [address] Scheduled Orders Name Type Priority Associated Diagnoses Orde r Schedule OUTSIDE LAB SCAN Lab Ordered: 10/01/2022 documented as of this encounter Visit Diagnoses Not on filedocumented in this encounter Additional Health Concerns Assessment Noted Time PHQ-9 Depression Total Score: 16 023 9:34 AM EDT documented as of this encounter Care Teams Roller Hand Relationship Specialty Start Date End Date Shaikh Schultz MD PCP - General 07/01/22 documented as of this encounter
--- OUTSIDE RECORDS SUMMARY | 2024-09-15 07:37 | XMS_ITS | Encounter Summary ---
Author Organization [facility] Address [address] [place] [address] Care Team Providers Care Head Start Coordinator Name Role Phone Fabricio Edouard MD Primary Care Provider [phone] Najma Meza HAT MARKER Unavailable [phone] Ирина Brown HAT MARKER Unavailable [phone] Encounter Details Date Type Department Care Team (Late st Contact Info) Description 01/25/2024 Abstract [facility] [address] [place] [phone] Najma Meza NP Social History Tobacco Use [...] Office Visit [facility] [address] [place] [phone] Ирина Brown HAT MARKER [address] [place] [address] 09/04/2025 10:00 AM EDT Office Visit [facility] [address] [place] [address] Ирина Brown, YOAN [address] [place] [phone] documented as of this encounter Visit Diagnoses Not on filedocumented in this encounter Additional Health Concerns Assessment Noted Time PHQ-9 Depression Total Score: 2 04/12/19 24 9:36 AM EST documented as of this encounter Care Teams Head Start Coordinator Relationship Specialty Start Date End Date Fabricio Edouard MD [address] [place] [phone] PCP - General Family Medicine 10/20/23 Najma Meza NP [address] [place] [address] Nurse Practitioner Family Medicine 10/20/23 05/24/24 Ирина Brown NP [address] [place] [phone] Nurse Practitioner Family Medicine 05/25/24 documented as of this encounter
--- OUTSIDE RECORDS SUMMARY | 2024-09-15 07:37 | XMS_ITS | Encounter Summary ---
Author Organization [facility] Address [address] [place] [address] Care Team Providers Care Utility Bill Complaints Investigator Name Role Phone Fabricio Edouard MD Primary Care Provider [phone] Ирина Brown NP Unavailable [phone] Encounter Details Date Type Department Care Team (Late st Contact Info) Description 08/29/2024 Abstract [facility] [address] [place] [address] Ирина Brown, YOAN [address] [place] [address] Social History Tobacco Use Types Packs/Day Years Used Date Smoking Tobacco: Never Passive Smoke Exposure: Never Smokeless Tobacco: Never Alcohol Use Standard Drinks/Week Comments Never 0 (1 standard drink = 0.6 oz pur e alcohol) PHQ-2 Answer Date Recorded Patient Health Questionnaire-2 Score 2 08/29/2024 Comments No Sex and Gender Information Value Date Recorded Sex Assigned at Not on file Legal Sex Female 7:06 PM EDT Gender Identity Not on file Sexual Orientation Not on file documented as of this encounter Functional Status * Over the past 2 weeks, how often have you been bothered by any of the following problems? Question Answer Date of Assessment Author Little interest or pleasure in doing things Several days 08/29/2024 10:51 AM EDT YAIMA SILVERMAN Feeling down, depressed, or hopeless Several days 08/29/2024 10:51 AM EDT YAIMA SILVERMAN Patient Health Questionnaire-2 Score 2 08/29/2024 10:51 AM EDT ANTON SILVERMAN * Question Answer Date of Assessment Author Trouble falling or staying asleep, or sleeping too much Nearly every day 08/29/2024 10:51 AM YAIMA BIANCHI Feeling tired or having little energy Nearly every day 08/29/2024 10:51 AM YAIMA BIANCHI Poor appetite or overeating Not at all 08/29/2024 10:51 AM YAIMA BIANCHI Feeling bad about yourself - or that you are a failure or have let yourself or your family down Nearly every day 08/29/2024 10:51 AM YAIMA BIANCHI Trouble concentrating on things, such as reading the newspaper or watching television Not at all 08/29/2024 10:51 AM YAIMA BIANCHI Moving or speaking so slowly that other people could have noticed? Or the opposite - being so fidgety or restless that you have been moving around a lot more than usual. Not at all 08/29/2024 10:51 AM YAIMA BIANCHI Thoughts that you would be better off or hurting yourself in some way Not at all 08/29/2024 10:51 AM ROLANDO BIANCHI Patient Health Questionnaire-9 Score 11 08/29/2024 10:51 AM ANTON BIANCHI documented as of this encounter Plan of Treatment Upcoming Encounters Date Type Department Care Team (Late st Contact Info) Description 10/31/2024 9:20 AM EDT [facility] Visit [facility] [address] [place] [address] Ирина Brown, YOAN [address] [place] [phone] 09/04/2025 10:00 AM EDT Office Visit [facility] [address] [place] [address] Ирина Brown NP [address] [place] [phone] documented as of this encounter Visit Diagnoses Not on filedocumented in this encounter Additional Health Concerns Assessment Noted Time PHQ-9 Depression Total Score: 11 025 10:51 AM EDT A fall risk assessment has been complete d for the patient 08/29/2024 10:52 AM EDT documented as of this encounter Care Teams Utility Bill Complaints Investigator Relationship Specialty Start Date End Date Fabricio Edouard MD [address] [place] [phone] PCP - General Family Medicine 10/20/23 Ирина Brown NP [address] [place] [phone] Nurse Practitioner Family Medicine 05/25/24 documented as of this encounter
--- OUTSIDE RECORDS SUMMARY | 2024-09-15 07:38 | XMS_ITS | Clinical Summary ---
Author Organization [facility] Address [address] [place] [address] Care Team Providers Care Automotive Service Assistant Name Role Phone Fabricio Edouard MD Primary Care Provider [phone] Ирина Brown NP Unavailable [phone] Allergies Active Allergy Reactions Criticality Noted Date Comments Kody Inhibitors Other 10/19/2023 hypotension Albuterol Medium 11/04/2015 Other Reaction(s): Other (See Comments), Unknown pt states hurt my lungs Atorvastatin Diarrhea 11/04/2015 Clarithromycin 11/04/2015 Other Reaction(s): Unknown Ezetimibe 11/04/2015 Other Reaction(s): Unknown Headaches Other Other 10/19/2023 hypotension Medications allopurinol (Zyloprim) 300 MG tabletIndications: Hyperuricemia without signs of inflammatory arthritis and tophaceous disease Take 1 tablet (300 mg) by mouth Daily 90 tablet 1 4 Active glipiZIDE (Glucotrol) 10 MG tabletIndications: Type 2 diabetes mellitus without complications (HCC) Take 1 tablet (10 mg) by mouth in the morning and 1 tablet (10 mg) before bedtime. 180 tablet 1 4 Active furosemide (Lasix) 40 MG tabletIndications: Type 2 diabetes mellitus with diabetic chronic kidney disease (HCC) Take 1 tablet (40 mg) by mouth Daily 90 tablet 1 4 Active levothyroxine (Synthroid, Levoxyl) 200 MCG tabletIndications: Hypothyroidism, unspecified Take 1 tablet (200 mcg) by mouth Daily 90 tablet 1 4 Active metFORMIN (Glucophage) 500 MG tabletIndications: Type 2 diabetes mellitus without complications (HCC) Take 1 tablet (500 mg) by mouth in the morning and 1 tablet (500 mg) before bedtime. 180 tablet 1 5 Active metoprolol succinate XL (Toprol-XL) 50 MG 24 hr tablet TAKE 3 TABLETS BY MOUTH ONCE DAILY DO NOT CRUSH OR CHEW 5 Active rivaroxaban (Xarelto) 15 MG tabletIndications: Unspecified atrial fibrillation (HCC) Take 1 tablet (15 mg) by mouth in the evening. Take with meals 90 tablet 1 5 10/09/19 25 Active Active Problems Problem Noted Date Diagnosed Date Hypomagnesemia 08/29/2024 Assessment & Plan (08/29/2024 12:47 PM EDT): May try otc magnesium oxide 240 or 250mg Check labs in 3 weeks Type 2 diabetes mellitus with diabetic cataract 05/25/2024 Chronic diastolic (congestive) heart failure 08/2024 Assessment & Plan (08/29/2024 6:35 AM EDT): On b jazmine, and diuretic Assessment & Plan (05/25/2024 6:48 AM EST): On b jazmine, and diuretic Chronic kidney disease, stage 3b 05/25/2024 Assessment & Plan (05/25/2024 6:49 AM EST): Control blood pressure and blood sugars Check labs yearly and prn 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 05/25/2024 Assessment & Plan (08/29/2024 6:35 AM EDT): No current meds for this Recommend freq foot checks, proper fitting shoes Adequate blood sugar control Assessment & Plan (05/25/2024 6:47 AM EST): No current meds for this Recommend freq foot checks, proper fitting shoes Adequate blood sugar control 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 05/25/2024 Body mass index (BMI) 40.0-44.9, adult Statin intolerance 10/19/2023 Cardiomyopathy, ischemic 06/02/2023 Assessment & Plan (05/25/2024 6:47 AM EST): Noted from cardiology Current meds: b jazmine, aldactone, diuretics Coronary artery disease invo lving [place] coronary artery of [place] heart without angina pectoris 04/12/2023 Assessment & Plan (08/29/2024 6:35 AM EDT): Unable to tolerate statin Does take b jazmine Assessment & Plan (05/25/2024 6:48 AM EST): Unable to tolerate statin Does take b jazmine Assessment & Plan (04/12/2023 10:26 AM EST): S/p CABG and recent Normal Nuclear stress test. On ASA and BB. Intolerant to statins and not willing to try injectable. Asymptomatic. Factor V Leiden mutation ([facility]) 04/12/2023 Assessment & Plan (05/25/2024 6:52 AM EST): On xarelto Type 2 diabetes mellitus wit h diabetic chronic kidney disease 04/12/2023 Assessment & Plan (08/29/2024 12:48 PM EDT): Check blood sugars daily, notify if <70 [...] med: metformin, glipizide, intolerant to statins and kody/arb, and no asa d/t Xarelto A1c: 6.4% 08/29/24 7% on 04/17/24 Assessment & Plan (05/25/2024 6:52 AM EST): Check blood sugars daily, notify if <70 [...] med: metformin, glipizide, intolerant to statins and kody/arb, and no asa d/t Xarelto A1c 7% on 04/17/24 Assessment & Plan (01/25/2024 11:06 AM EST): Most recent labs: hemoglobin A1C Average FSBS [...] persistent hypoglycemia/hyperglycemia on home glucose monitoring noted. Assessment & Plan (04/12/2023 10:28 AM EST): Most recent labs: hemoglobin A1C 01/11 7.2 Average FSBS range from BGs consistently in an acceptable range No episode of hypoglycemia No medication adverse [...] persistent hypoglycemia/hyperglycemia on home glucose monitoring noted. C/w metformin and glipizide. Medicare annual wellness visit, subsequent 04/12 Assessment & Plan (08/29/2024 6:33 AM EDT): Reviewed Ht/Wt/BMI Recommend eye exam yearly Recommend dental exams twice a year Balance work/leisure activities Exercises is recommended most days of the week (appropriate as chronic conditions allow) Follow up yearly and prn Assessment & Plan (04/12/2023 10:30 AM EST): Stable, chronic medical conditions. Patient has no active complaints to offer. Tolerating her medications w/o adverse effects. Patient not interested in pursuing cancer screening. Patient provided education and counseling on medications, medical conditions relevant to her. All questions and concerns answered.Patient screened for depression, fall risk, cognitive impairment. Pseudophakia 10/14/2022 Age-related nuclear cataract of both eyes 2022 History of coronary artery bypass graft 02/10/20 History of deep vein thrombosis 02/09/2022 History of pulmonary embolism 02/09/2022 Pulmonary embolism 12/09/2021 Hairy cell leukemia, in remission 11/04/2015 Unspecified atrial fibrillation 10/29/2011 Assessment & Plan (05/25/2024 11:26 AM EST): B jazmine and xarelto A fib today , rate controlled Assessment & Plan (01/10/2024 4:59 PM EDT): Currently taking Eliquis. Was admitted to [facility] for NSTEMI 12/24 Echo ordered EF was 60%-65% [facility] discharged, believed troponin elevations were related to brief episode of Afib RVR No medication changes States she feels better presently, but is still fatigued. Follows with Dr. Casey- Cardiology; Has not made an appointment to follow up with Cards yet. Advised pt to do so. Assessment & Plan (04/12/2023 10:24 AM EST): Long standing persistent. HR at goal. Eliquis for stroke Px. No changes. Acquired hypothyroidism 12/15/2010 Assessment & Plan (08/29/2024 6:35 AM EDT): Current med: levothyroxine Check labs yearly, and prn dose changes or changes in symptoms Assessment & Plan (05/25/2024 6:50 AM EST): Current med: levothyroxine Check labs yearly, and prn dose changes or changes in symptoms Assessment & Plan (01/25/2024 11:06 AM EST): On levothyroxine. TSH needs checked. Labs ordered today. Assessment & Plan (04/12/2023 10:27 AM EST): On Levothyroxine. Check TSH Chronic lymphocytic leukemia 12/15/2010 Overview (04/12/2023): ATYPICAL HAIR CELL VARIENT Assessment & Plan (04/12/2023 10:27 AM EST): Hairy cell leukemia, in remission. Monitor with periodic CBC. Essential hypertension 12/15/2010 Assessment & Plan (08/29/2024 6:35 AM EDT): Please check blood pressure daily and record DASH diet Limit caffeine Take medication as directed Contact office if chest pain, pressure, dizziness, shortness of breath, swelling legs Recommend slow position changes Current meds; diuretic, and b jazmine Assessment & Plan (05/25/2024 6:48 AM EST): Please check blood pressure daily and record DASH diet Limit caffeine Take medication as directed Contact office if chest pain, pressure, dizziness, shortness of breath, swelling legs Recommend slow position changes Current meds; diuretic, and b jazmine Assessment & Plan (01/25/2024 11:07 AM EST): Currently taking Metoprolol Succincate 100mg Checks BP at home; Averages are 120's/70's Denies orthostatic changes, dizziness, cough, shortness of breath, swelling in extremities. Continue current regimen. Given BP log, advised pt to record BP and bring log back with them to next visit. Assessment & Plan (04/12/2023 10:26 AM EST): BP well controlled. On average less than 130/90. Tolerating Anti hypertensive w/o adverse effects. Denies lightheadedness, dizziness, syncope, presyncope. Patient encouraged to continue with home BP monitoring and call office if he experiences orthostatic symptoms or persistently elevated BP. C/w same. Check labs Generalized osteoarthritis 12/15/2010 Gout 12/15/2010 Hyperlipidemia 12/15/2010 Morbid (severe) obesity due to excess calories 0 12/15/2010 Assessment & Plan (08/29/2024 6:34 AM EDT): Discussed with patient their BMI (actual, verses recommended). We have also discussed lifestyle modifications: attempts to perform physical activity as chronic conditions allow, also to monitor dietary intake: increasing protein/fruits/veggies and lowering carb intake (unless contraindicated). Limit sodas, juices, and sugary drinks. Assessment & Plan (05/25/2024 6:50 AM EST): Discussed with patient their BMI (actual, verses recommended). We have also discussed lifestyle modifications: attempts to perform physical activity as chronic conditions allow, also to monitor dietary intake: increasing protein/fruits/veggies and lowering carb intake (unless contraindicated). Limit sodas, juices, and sugary drinks. Resolved Problems Problem Noted Date Diagnosed Date Resolved Date Congestive heart failure 06/02/202308/2024 Stage 3a chronic kidney disease 04/12/2023 05/25/2024 Assessment & Plan (01/25/2024 11:06 AM EST): Most recent Creatinine: 1.28 eGFR 40 Continue to monitor closely Avoid nephrotoxic agents. Assessment & Plan (04/12/2023 10:26 AM EST): Stable, due to T2 DM and HTN Monitor. Avoid NSAIDS. Gastroesophageal reflux disease 10/29/2011 05/25/2024 Coronary atherosclerosis 12/15/201008/2024 Overview (04/12/2023): CABG 2008 Encounters Date Type Department Care Team Description 08/29/2024 10:30 AM EDT Office Visit [facility] [address] [place] [address] Ирина Brown NP Medicare annual wellness visit, subsequent (Primary Dx); Type 2 diabetes mellitus with stage 3b chronic kidney disease, without long-term current use of insulin (HCC); Morbid (severe) obesity due to excess calories ([facility]); Acquired hypothyroidism ; Essential hypertension ; Chronic diastolic (congestive) heart failure (HCC); Coronary artery disease involving [place] coronary artery of [place] heart without angina pectoris ; Type 2 diabetes mellitus with diabetic polyneuropathy, without long-term current use of insulin (HCC); Hypomagnesemia 08/29/2024 Abstract [facility] [address] [place] [address] Ирина Brown, YOAN 08/29/2024 Bamboo flowsheet [facility] [address] [place] [address] Ирина Brown, YOAN 07/10/2024 Refill [facility] [address] [place] [phone] Fabricio Edouard MD Unspecified atrial fibrillation (HCC) 07/06/2024 Clinisync Result Encounter [facility] External Department Unsolicited Provider, Generic External Data from Last 3 Months Immunizations Immunization Administration Dates Next Due Influenza, injectable, MDCK, preservative free, quadrivalent 01/25/2024 Influenza, injectable, quadrivalent 02/26/2014 Influenza, seasonal, injectable 12/26/2012 Influenza, trivalent, adjuvanted 021,12/28/2019,01/18/2019,02/01,01/07/2017 Pneumococcal Polysaccharide PPSV23 03/22/2002 Family History Medical History Relation Name Comments Heart disease Mother Diabetes Other Hypertension Other Stroke Other Relation Name Status Comments Mother Other Social History Tobacco Use Types Packs/Day Years Used Date Smoking Tobacco: Never Passive Smoke Exposure: Never Smokeless Tobacco: Never Tobacco Cessation:Counseling Given: [...] Sign Reading Time Taken Comments Blood Pressure 118/80 08/29/2024 10:40 AM EDT Pulse 83 08/29/2024 10:40 AM EDT Temperature 36.7 C (98.1 F) 08/29/2024 10:40 AM EDT Respiratory Rate 18 08/29/2024 10:40 AM EDT Oxygen Saturation 96% 08/29/2024 10:40 AM EDT Inhaled Oxygen Concentration - - Weight 123 kg (272 lb) 05/25/2024 10:29 AM EST Height 172.7 cm (5' 8 ) 05/25/2024 10:29 AM EST Body Mass Index 41.36 05/25/2024 10:29 AM EST Plan of Treatment Upcoming Encounters Date Type Department Care Team (Late st Contact Info) Description 10/31/2024 9:20 AM EDT [facility] [address] [place] [address] Ирина Brown, YOAN [address] [place] [address] 09/04/2025 10:00 AM EDT Office Visit [facility] [address] [place] [address] Ирина Brown, YOAN [address] [place] [address] Health Maintenance Due Date Last Done Comments Pneumococcal Vaccine: 65+ Ye ars (2 of 2 - PCV) 03/22/2003 03/22/2002 Diabetes: Hemoglobin A1C 11/29/2024 025, 04/17/2024, 01/18/2023, Additional history exists Diabetes: Urine Protein Screening 04/17/2025 025 Diabetes: Retinopathy Screening 10/03/2025 10/04/2023, 09/23/2022, 09/23/2022, Additional history exists Influenza Vaccine Completed 01/25/2024, , 12/28/2019, Additional history exists Procedures Procedure Name Priority Date/Time Associated Diagnosis Comments POCT GLYCOSYLATED HEMOGLOBIN (HGB A1C) Routine 08/29/2024 11:38 AM EDT Type 2 diabetes mellitus with stage 3b chronic kidney disease, without long-term current use of insulin (HCC) BLOOD CULTURE 2 Routine 07/06/2024 2:14 PM EDT URINE CULTURE - FR Routine 07/06/2024 1:52 PM EDT BLOOD CULTURE 1 Routine 07/06/2024 1:46 PM EDT from Last 3 Months Results * (ABNORMAL) POCT glycosylated hemoglobin (Hb A1C) docked device (08/29/2024 11:38 AM EDT) Hemoglobin A1C 6.4 Blood Venous blood specimen / Unknown 08/29/2024 11:38 AM EDT us Ирина Brown MANAGER FOOD SAFETY POINT OF CARE TEST ENTER/EDIT O RDERABLES Final Result * BLOOD CULTURE 2 (07/06/2024 2:14 PM EDT) Pathologist [facility] BLOOD CULTURE 2 Blood Culture 2 NG5D NO GROWTH AT 5 DAYS.^NO GROWTH AT 5 DAYS. [facility] 07/06/2024 2:14 PM EDT 07/06/2024 2:16 PM EDT Narrative [facility] - 07/12/2024 2:53 PM EDT PEDS LEFT WRIST us Generic External Data Provider LAB BLOOD ORDERAB LES Final Result [facility] * URINE CULTURE - [facility] (07/06/2024 1:52 PM EDT) Pathologist [facility] URINE CULTURE - [facility] Urine Culture - [facility] >100,000 colonies/ ml mixed [facility] URINE CULTURE - [place] bacterial skin contaminants [facility] URINE CULTURE - [facility] 2 Days [facility] URINE CULTURE - [facility] URINE CULTURE - FR Testing performed at [facility] URINE CULTURE - [place] [address] [place] [address] [facility] 07/06/2024 1:52 PM EDT 07/06/2024 2:04 PM EDT Narrative [facility] - 07/10/2024 2:09 PM EDT us Generic External Data Provider LAB BLOOD ORDERAB LES Final Result [facility] * BLOOD CULTURE 1 (07/06/2024 1:46 PM EDT) BLOOD CULTURE 1 Blood Culture 1 NG5D NO GROWTH AT 5 DAYS.^NO GROWTH AT 5 DAYS. [facility] 07/06/2024 1:46 PM EDT 07/06/2024 2:04 PM EDT Narrative [facility] - 07/11/2024 2:30 PM EDT RIGHT AC Generic External Data Provider LAB BLOOD ORDERAB LES Final Result Performing Organization Address City/[facility]/ZIP Co de Phone Number [facility] from Last 3 [place] [address] [facility] Care Teams Automotive Service Assistant Relationship Specialty Start Date End Date Fabricio Edouard MD [address] [place] [phone] PCP - General Family Medicine 10/20/23 Ирина Brown NP [address] [place] [address] Nurse Practitioner Family Medicine 05/25/24
--- OUTSIDE RECORDS SUMMARY | 2024-09-15 07:38 | XMS_ITS | Clinical Summary ---
Author Organization [facility] Address [address] [place] [address] Care Team Providers Care Clay Burner Name Role Phone Shaikh JAMES Schultz Primary Care Provider [phone] Allergies Active Allergy Reactions Criticality Noted Date [...] (ProtoNix) 40 mg EC tabletIndications :Atherosclerosis of [place] coronary artery of [place] heart without angina pectoris,Paroxysm al atrial fibrillation [...] YR UP Vaccine BiV alent Booster 01/21/2021,05/21/2020,04/23/2020 Family History Medical History Relation Name Comments Heart attack Father Stroke Mother Heart attack Other Stroke Other Relation Name Status Comments Father Mother Other Social History Tobacco Use Types [...] 02/09/2022 4:21 PM EST Plan of Treatment Health Maintenance Due Date Last Done Comments Diabetes: Hemoglobin A1C 1935 Medicare Annual Wellness (AWV) 1935 Diabetes: Retinopathy Screening 07/19/1947 Depression Screening 1949 Diabetes: Urine Protein Screening 1956 Zoster Vaccines (1 of 2) 1954 Adult Tetanus 07/19/1959 Fall Risk Screening 2002 Pneumococcal Vaccine: 50+ Years (2 of 2 - PCV) 03/22/2003 03/22/2002 COVID-19 Vaccine ( season) 2023 01/21/2021, 05/21/2020, 04/23/2020 Influenza Vaccine (Season Ended) 2024 12/31/2020, 12/28/2019, 01/18/2019, Additional history exists HIB Vaccines Aged Out No longer eligi ble based on patient's age to complete this topic HPV Vaccines Aged Out No longer eligi ble based on patient's age to complete this topic IPV Vaccines Aged Out No longer eligi ble based on patient's age to complete this topic Meningococcal B Vaccine Aged Out No l onger eligible based on patient's age to complete this topic Meningococcal Vaccine Aged Out No faye aliza eligible based on patient's age to complete this topic Rotavirus Vaccines Aged Out No longer eligible based on patient's age to complete this topic [place] [address] [facility] [place] [address] Care Teams Clay Burner Relationship Specialty Start Date End Date Shaikh Schultz MD [address] [place] [phone] PCP - General Family Medicine 12/09/21
[2024-09-15 08:51] LABS: Basophils Absolute Auto 0.1 10^3/uL (0.0-0.1); Basophils Percent Auto 1.1 % (0.2-2.0); Eosinophils Absolute Auto 0.2 10^3/uL (0.0-0.7); Eosinophils Percent Auto 2.2 % (0.9-7.0); Hematocrit 42.7 % (36.0-48.0); Hemoglobin 13.7 g/dL (12.0-16.0); Immature Granulocytes Abs Auto 0.03 10^3/uL (0.00-0.03); Immature Granulocytes Pct Auto 0.4 % (0.0-0.5); Lymphocytes Absolute Auto 1.7 10^3/uL (1.2-3.8); Lymphocytes Percent Auto 23.6 % (20.5-60.0); Mean Corpuscular HGB Conc 32.1 g/dL (29.9-35.2); Mean Corpuscular Volume 93.4 fL (81.0-99.0); Mean Platelet Volume 11.4 fL (9.5-13.5); Monocytes Absolute Auto 0.7 10^3/uL (0.3-0.8); Neutrophils Absolute Auto 4.6 10^3/uL (1.4-6.5); Neutrophils Percent Auto 63.7 % (43.0-75.0); Platelet Count 233 10^3/uL (150-450); Red Blood Count 4.57 10^6/uL (4.20-5.40); Red Cell Distribution Width 13.8 % (11.0-15.0); White Blood Count 7.2 10^3/uL (4.0-11.0)
[2024-09-15 09:15] LABS: Magnesium 1.5 mg/dL (1.8-2.4); Phosphorus 2.8 mg/dL (2.6-4.7)
[2024-09-15 09:18] LABS: Alanine Aminotransferase 19 U/L (14-59); Albumin Globulin Ratio 0.8; Albumin Level 3.2 g/dL (3.4-5.0); Alkaline Phosphatase 132 U/L (46-116); Anion Gap 13.5; Aspartate Amino Transferase 20 U/L (15-37); BUN Creatinine Ratio 24.5; Bilirubin Total 0.9 mg/dL (0.2-1.0); Calcium 9.4 mg/dL (8.5-10.1); Carbon Dioxide 26.6 mmol/L (21.0-32.0); Chloride 106 mmol/L (98-107); Chol HDL Ratio 3.7; Cholesterol 142 mg/dL (<=200); Estimated GFR (African America 59 (>=60 mL/min/1.73m^2); Estimated GFR (Non-African Ame 49 (>=60 mL/min/1.73m^2); Globulin 4.2 g/dL; Glucose 113 mg/dL (74-106); HDL Cholesterol 38 mg/dL (40-60); Potassium 4.1 mmol/L (3.5-5.1); Sodium 142 mmol/L (136-145); Total Protein 7.4 g/dL (6.4-8.2); Triglycerides 110 mg/dL (<=150)
[2024-09-15 09:19] LABS: Percent Iron Saturation 19.3 %
[2024-09-15 10:54] LABS: Bilirubin Urine NEGATIVE (NEGATIVE); Blood Urine SMALL (NEGATIVE); Clarity Urine CLEAR (CLEAR); Color Urine YELLOW (YELLOW); Glucose Urine UA NEGATIVE (NEGATIVE); Ketones Urine NEGATIVE (NEGATIVE); Leukocyte Esterase Urine TRACE (NEGATIVE); Nitrite Urine NEGATIVE (NEGATIVE); Protein Urine >=300 mg/dL (NEG/TRACE); Specific Gravity Urine 1.025 (1.005-1.025); Urobilinogen Urine 0.2 EU/dL (0.2-1.0); pH Urine 5.5 (5.0-9.0)
[2024-09-15 11:17] LABS: Urine Microscopic Indicated YES
[2024-09-15 11:27] LABS: Bacteria Urine MODERATE #/HPF (NONE SEEN); Cast Seen? NONE SEEN #/LPF (NONE SEEN); Crystals Seen? None Seen #/HPF (None Seen); Mucus Urine NONE SEEN (NONE SEEN); Squamous Epithelial Cell Urine MODERATE #/LPF (NONE/RARE)
[2024-09-16 04:08] LABS: Transferrin 258 mg/dL (149-313)
[2024-09-17 11:10] LABS: PTH, Intact 42 pg/mL (15-65)
== END 2024-09-15 07:31 | disposition home or self-care (01) ==
LOC: LAB 07:34
PROVIDERS: PCP Nurse Practitioner; Visit Provider Nurse Practitioner
DX: E11.22 Type 2 diabetes mellitus with diabetic chronic kidney disease (principal); N18.32 Chronic kidney disease, stage 3b; I50.32 Chronic diastolic (congestive) heart failure; I25.10 Atherosclerotic heart disease of native coronary artery without angina pectoris; E11.42 Type 2 diabetes mellitus with diabetic polyneuropathy; I12.9 Hypertensive chronic kidney disease with stage 1 through stage 4 chronic kidney disease, or unspecified chronic kidney disease
CPT/HCPCS: 36415; 80053; 80061; 81001; 82728; 83540; 83550; 83735; 83970; 84100; 84466; 85025

== ENCOUNTER 2024-11-14 10:03 | Outpatient (OUT) | payer MEDICARE, OTHER, SELFPAY ==
--- OUTSIDE RECORDS SUMMARY | 2024-11-14 10:12 | XMS_ITS | CCD ---
Author Organization [facility] Care Team Providers Care Diaphragm Builder Name Role Phone Darrian Benton Unavailable Unavailable GLORIA SARMED Admitting Unavailable GLORIA SARMED Attending Unavailable ROMARIO BAKER Primary Care Unavailable ER, JOVANNI Referring Unavailable RI Procedure Practitioner Unavailab le UNKNOWN, PROVIDER Surgeon [...] Admit Provider DO Nelson Orourke Attending Provider Derrick SHEET TAKER-C Emilie Wells Primary Care Provid er Fabricio Edouard MD Primary Care Provider [phone] Meza SHEET TAKER, Emilie Unavailable Meza SHEET TAKER, Emilie Unavailable Kevin SHEET TAKER, Ирина Unavailable Alfonso Kendrick Admitting Unavailable Alfonso Kendrick Attending Unavailable Emilie Meza N Primary Care Unavaila ble Ren Mohan Admitting Unavailable Nelson Orourke Attending Unavailable Meza, Emilie Wells Primary Care Unavaila ble Meza SHEET TAKER-C, Emilie Wells Primary Care Provid er Alfonso Kendrick DO Attending Provider [phone] Shaikh Schultz MD Primary Care Provider JOSELUIS CASEY Attending Unavailable JOSELUIS CASEY Referring Unavailable SHAIKH SCHULTZ Primary Care Unavailable ИРИНА BROWN Attending Unavailable DORETHAHALYSE VILCHISA Attending Unavailable ALYSE BROWNA Attending Unavailable EMILIE MEZA Attending Unavailabl e MEZAEMILIE FELIZ Attending Unavailabl e Allergies Allergy Classification Reported Allergen(s) Allergy Type Date of Onset Reaction(s) Facility (2 sources) Albuterol Drug Allergy 9 [facility] Repository (20 sources) Albuterol Drug Allergy 6 [facility] (20 sources) atorvastatin Drug Allergy 6 Diarrhea [facility] (20 sources) Clarithromycin Allergy to substance 6 [facility] (20 sources) ezetimibe Drug Allergy 6 [facility] Healthcare (16 sources) Angiotensin-conver ting enzyme inhibitor agent; 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: [YUSEF INHIBITORS] Drug Intolerance 4 Other [facility] Healthcare Work Phone: (15 sources) Other Propensity to adverse reactions 4 Other [facility] Healthcare (1 source) Albuterol Drug Allergy 3 [facility] Repository (2 sources) Angiotensin II receptor antagonist; 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: [ARB-ANGIOTENSIN RECEPTOR ANTAGONIST] Propensity to adverse reactions to drug 4 Other [facility] Work Phone: (1 source) Angiotensin-conver ting enzyme inhibitor agent Propensity to adverse reactions to drug 4 Other [facility] (2 sources) HMG-CoA reductase inhibitor; 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: [JNBPLTX-YZE-UVX REDUCTASE INHIBITORS] Propensity to adverse reactions 4 Myalgia [facility] Medications Current Medications Medication Drug Class(es) Dates Sig (Normalized) Sig (Original) allopurinol 300 mg oral tablet (20 sources) Xanthine Oxidase Inhibitor Start: 06-22-2022 End: 01-09-2025 take 1 tablet by mouth once daily allopurinol (Zyloprim) 300 MG tablet Indications: Hyperuricemia without signs of inflammatory arthritis and tophaceous disease Take 1 tablet (300 mg) by mouth Daily 90 tablet 1 10/11/2024 01/09/2025 Active Start: 04-13-2019 End: 06-22-2022 take 1 [...] PO Every evening June 23, 2022 12:00am Blood Glucose Monitoring Suppl (Accu-Chek Dione Plus) w/Device kit (5 sources) Start: 10-31-2024 End: 10-31-2025 Blood Glucose Monitoring Suppl (Accu-Chek Dione Plus) w/Device kit Indications: Type 2 diabetes mellitus with stage 3b chronic kidney disease, without long-term current use of insulin (HCC) 1 each Daily 1 kit 10/31/2024 10/31/2025 Active End: 10-31-[address] (Accu-Chek Dione Plus) w/Device kit 1 each Daily 10/31/2024 Discontinued (Reorder) furosemide 40 mg oral tablet (20 sources) Loop Diuretic Start: 04-13-2019 End: 01-09-2025 take 1 tablet by mouth once daily furosemide (Lasix) 40 MG tablet Indications: Type 2 diabetes mellitus with diabetic chronic kidney disease (HCC) Take 1 tablet (40 mg) by mouth Daily 90 tablet 1 10/11/2024 01/09/2025 Active glipiZIDE 10 mg oral tablet (20 sources) Sulfonylurea Start: 06-22-2022 End: 01-09-2025 take 1 tablet by mouth in the morning glipiZIDE (Glucotrol) 10 MG tablet Indications: Type 2 diabetes mellitus without complications (HCC) Take 1 tablet (10 mg) by mouth in the morning and 1 tablet (10 mg) before bedtime. 180 tablet 1 10/11/2024 01/09/2025 Active Start: 04-13-2019 End: 06-22-2022 take 1 tablet by mouth twice daily Glipizide 5 mg Tablet Extended Release 24hr Discontinued 5 MG PO Twice daily April 13, 2019 1:00am June 22, 2022 3:38am take 1 tablet by raymond th twice daily glipiZIDE XL (Glucotrol XL) 10 mg 24 hr tablet Take 1 tablet (10 mg) by mouth 2 times a day. Do not crush, chew, or split. Active levothyroxine sodium 0.2 mg oral tablet (20 sources) l-Thyroxine Start: 04-13-2019 End: 01-09-2025 take 1 tablet by mouth once daily levothyroxine (Synthroid, Levoxyl) 200 MCG tablet Indications: Hypothyroidism, unspecified Take 1 tablet (200 mcg) by mouth Daily 90 tablet 1 10/11/2024 01/09/2025 Active take 1 capsule by mo uth once daily in the morning Levothyroxine Sodium 200 MCG Oral Capsul e TAKE 1 CAPSULE DAILY IN THE MORNING Quantity: 0 Refills: 0 Ordered: 01-Jul-2022 DO Active losartan potassium 100 mg oral tablet (6 sources) Angiotensin 2 Receptor Jazmine Start: 06-22-2022 take 1 tablet by mouth once daily Losartan 100 mg tablet Active 100 MG PO Daily June 22, 2022 12:00am magnesium oxide 400 mg oral tablet (7 sources) Start: 09-15-2024 End: 02-08-2025 take 1 tablet by mouth once daily magnesium oxide (Mag-Ox) 400 (240 Mg) MG tablet Indications: Hypomagnesemia Take 1 tablet (400 mg) by mouth Daily 90 tablet 1 11/10/2024 02/08/2025 Active metFORMIN hydrochloride 500 mg oral tablet (20 sources) Biguanide Start: 04-13-2019 End: 02-08-2025 take 1 tablet by mouth in the morning metFORMIN (Glucophage) 500 MG tablet Indications: Type 2 diabetes mellitus without complications (HCC) Take 1 tablet (500 mg) by mouth in the morning and 1 tablet (500 mg) before bedtime. 180 tablet 1 11/10/2024 02/08/2025 Active 24 hr metoprolol succinate 50 mg extended release oral tablet (20 sources) beta-Adrenergic Jazmine Start: 05-08-2024 End: 11-17-2024 take 3 tablets by mouth once daily metoprolol succinate XL (Toprol-XL) 50 MG 24 hr tablet TAKE 3 TABLETS BY MOUTH ONCE DAILY DO NOT CRUSH OR CHEW 05/08/2024 Active Start: 06-23-2022 take 3 tablets by mo uth once daily metoprolol succinate XL (Toprol-XL) 50 [...] 05/25/2024 Discontinued take 3 tablets by [facility] once daily Metoprolol Succinate ER 50 MG Oral Tablet Extended Release 24 Hour TAKE 3 TABLET Daily Quantity: 270 Refills: 0 Ordered: 15-Sep-2022 Joseluis Casey DO Active rivaroxaban 15 mg oral tablet (20 sources) Factor Xa Inhibitor Start: 06-23-2022 End: 10-08-2024 take 1 tablet by mouth at mealtime rivaroxaban (Xarelto) 15 MG tablet Indications: Unspecified atrial fibrillation (HCC) Take 1 tablet (15 mg) by mouth in the evening. Take with meals 90 tablet 1 07/10/2024 Active Start: 06-22-2022 End: 06-23-2022 take 1 [...] 22, 2022 3:38am Per Dr. Baker in [place] instructions 5mg everyday besides Wednesday and Wednesday [...] p per request of Phys. 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 EHR Cmte Congestive heart failure; nonhypertensive (20 sources) Symptomatic congestive heart failure; 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: [Congestive heart failure, unspecified] Onset: 07-23-2022 Resolved: 05-25-2024 05-25-2024 Chronic Coronary atherosclerosis and other heart disease (20 sources) Coronary arteriosclerosis; 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: [Atherosclerotic heart disease of [place] coronary artery without angina pectoris] Onset: 12-15-2010 Resolved: 05-25-2024 04-13-2019 Chronic Comment on above: Problem List clean-u p per request of Phys. EHR Cmte Coronary atherosclerosis and other heart disease (5 sources) Presence of coronary angioplasty implant and graft; 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: [Percutaneous transluminal coronary angioplasty status] Onset: 06-23-2022 06-23-2022 Episodic Deficiency and other anemia (4 sources) Anemia; Translations: [Anemia, unspecified] 04-15-2019 Episodic Comment on above: Problem List clean-u p per request of Phys. EHR Cmte Deficiency and other anemia (4 sources) Iron deficiency anemia; Translations: [Iron deficiency anemia, unspecified] 04-20-2019 Episodic Comment on above: Problem List clean-u p per request of Phys. EHR Cmte Diabetes mellitus with complications (20 sources) Type 2 diabetes mellitus with diabetic polyneuropathy; Translations: [Type 2 diabetes mellitus with diabetic chronic kidney disease] Onset: 07-03-2021 Chronic Diabetes mellitus without complication (20 sources) Diabetes mellitus; Translations: [Type 2 diabetes mellitus without complications] Onset: 12-29-2021 04-20-2019 Chronic Comment on above: Problem List clean-u p per request of Phys. EHR Cmte Disorders of lipid metabolism (20 sources) Pure [...] W/HEART FAIL] Onset: 06-23-2022 Chronic Immunity disorders (17 sources) Secondary immune deficiency disorder; Translations: [Immunodeficiency [...] per request of Phys. EHR Cmte Osteoarthritis (20 sources) Degenerative joint disease involving multiple joints; Translations: [Polyosteoarthritis, unspecified] Onset: 12-15-2010 04-12-2023 Chronic Other aftercare (4 sources) Long-term current use of anticoagulant; Translations: [longterm (current) use of anticoagulants] 04-20-2019 Episodic Comment on above: Problem List clean-u p per request of Phys. 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; Translations: [OTH COMMISSIONER OF CONCILIATION CURRENT DRUG THERAPY] Onset: 06-23-2022 Episodic Other gastrointestinal disorders (5 sources) Diarrhea; Translations: [Diarrhea, unspecified] Onset: 10-31-2024 10-31-2024 Episodic Other hematologic conditions (4 sources) Raised [...] Chronic Other nutritional; endocrine; and metabolic disorders (20 sources) Obesity caused by energy imbalance; Translations: [Morbid (severe) obesity due to excess calories] Onset: 12-15-2010 05-25-2024 Chronic Other nutritional; endocrine; and metabolic disorders (17 sources) Body mass index 40+ - severely obese; Translations: [Body mass index (BMI) 40.0-44.9, adult] Onset: 05-25-2024 05-25-2024 Chronic Other nutritional; endocrine; and metabolic disorders (13 sources) Hypomagnesemia; Translations: [Hypomagnesemia] Onset: 08-29-2024 08-29-2024 Chronic Other nutritional; endocrine; and metabolic disorders (4 sources) 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 EHR Cmte Residual codes; unclassified (2 sources) Other specified postprocedural states; Translations: [Other postprocedural status] 06-23-2022 Episodic Residual codes; unclassified (2 sources) Never smoked tobacco; Translations: [Other specified health status] Onset: 10-18-2024 10-18-2024 Episodic Thyroid disorders (20 sources) Hypothyroidism; Translations: [Hypothyroidism, unspecified] Onset: 12-15-2010 04-20-2019 Chronic Comment on above: Problem List clean-u p per request of Phys. EHR Cmte Unclassified (1 source) CHRN KIDNEY DISEASE STG 3 UNSP; Translations: [CHRN KIDNEY DISEASE STG 3 UNSP] Onset: 10-01-2021 Past or Other Problems Problem Classification Problem Date Documented Da te Episodic/Chronic Esophageal disorders (20 sources) Gastroesophageal reflux disease; Translations: [Gastro-esophageal reflux disease without esophagitis] Onset: 2 Resolved: 5 04-12-2023 Chronic Mood disorders (20 sources) Mood disorders Onset: 4 Resolved: 5 [...] of Phys. EHR Cmte Residual codes; unclassified (20 sources) Other specified health status; Translations: [Other drug allergy] Onset: 4 05-25-2024 Episodic Unclassified (2 sources) Never smoked tobacco; Translations: [Never a smoker] Unclassified (10 sources) Onset: 5 Resolved: 5 08-29-2024 Results Test Name Value Interpretation Reference Range Facility ALL CBC WITH AUTO DIFFon BASOPHILS ABSOLUTE AUTO 0.1 [facility] Basophils/100 WBC (Bld) 1.1 % 0.2 - 2.0 % [facility] Eosinophils/100 WBC (Bld) 2.2 % 0.9 - 7.0 % [facility] Erythrocyte distribution width (RBC) [Ratio] 13.8 % 11.0 - 15.0 % [facility] Hematocrit (Bld) [Volume fraction] 42.7 % 36.0 - 48.0 % [facility] Hemoglobin (Bld) [Mass/Vol] 13.7 g/dL 12.0 - 16.0 g/dL [facility] IMMATURE GRANULOCYTES ABS AUTO 0.03 [facility] Immature granulocytes/100 WBC (Bld) 0.4 % 0.0 - 0.5 % [facility] LYMPHOCYTES ABSOLUTE AUTO 1.7 [facility] Lymphocytes/100 WBC (Bld) 23.6 % 20.5 - 60.0 % [facility] MCH (RBC) [Entitic mass] 30 pg 26.7 - 34.0 pg [facility] MCHC (RBC) [Mass/Vol] 32.1 g/dL 29.9 - 35.2 g/dL [facility] MCV (RBC) [Entitic vol] 93.4 fL 81.0 - 99.0 fL [facility] MONOCYTES ABSOLUTE AUTO 0.7 [facility] Monocytes/100 WBC (Bld) 9 % 1.7 - 12.0 % [facility] NEUTROPHILS ABSOLUTE AUTO 4.6 [facility] Neutrophils/100 WBC (Bld) 63.7 % 43.0 - 75.0 % [facility] Platelet mean volume (Bld) [Entitic vol] 11.4 fL 9.5 - 13.5 fL [facility] TBH EO # 0.2 [facility]H PLT 233 [facility] RBC 4.57 [facility] WBC 7.2 [facility] HbA1c (Bld) [Mass fraction]o n 08-29-2024 Interpretation and review of laboratory results Abnormal [facility] - Hematology and Cell countson 08-29-2024 HbA1c (Bld) [Mass fraction] 6.4 % [facility] Urine Cultureon 07-06-2024 Bacteria identified Cx Nom (U) >100,000 colonies/ml mixed bacterial skin contaminants 2 Days PERFORMED BY: [facility] [address] [place] [address] PATHOLOGIST BULLET SWAGING MACHINE ADJUSTER RIC BASS M.D. Normal [facility] Comment on above: Performed By: #### B MP, HEPATIC, TSH3, MG, CBC #### [facility] [address] ALL CBC WITH AUTO DIFFon BASOPHILS ABSOLUTE AUTO 0.1 [facility] Basophils/100 WBC (Bld) 1.1 % 0.2 - 2.0 % [facility] Eosinophils/100 WBC (Bld) 2.9 % 0.9 - 7.0 % [facility] Erythrocyte distribution width (RBC) [Ratio] 13.8 % 11.0 - 15.0 % [facility] Hematocrit (Bld) [Volume fraction] 45.2 % 36.0 - 48.0 % [facility] Hemoglobin (Bld) [Mass/Vol] 14.9 g/dL 12.0 - 16.0 g/dL [facility] IMMATURE GRANULOCYTES ABS AUTO 0.03 [facility] Immature granulocytes/100 WBC (Bld) 0.4 % 0.0 - 0.5 % [facility] LYMPHOCYTES ABSOLUTE AUTO 2.6 [facility] Lymphocytes/100 WBC (Bld) 34.2 % 20.5 - 60.0 % [facility] MCH (RBC) [Entitic mass] 31 pg 26.7 - 34.0 pg [facility] MCHC (RBC) [Mass/Vol] 33 g/dL 29.9 - 35.2 g/dL [facility] MCV (RBC) [Entitic vol] 94.2 fL 81.0 - 99.0 fL [facility] MONOCYTES ABSOLUTE AUTO 0.8 [facility] Monocytes/100 WBC (Bld) 10.3 % 1.7 - 12.0 % [facility] NEUTROPHILS ABSOLUTE AUTO 3.9 [facility] Neutrophils/100 WBC (Bld) 51.1 % 43.0 - 75.0 % [facility] Platelet mean volume (Bld) [Entitic vol] 11.6 fL 9.5 - 13.5 fL [facility] TBH EO # 0.2 [facility] TB PLT 218 [facility] RBC 4.8 [facility] WBC 7.6 [facility] Capillary blood glucose edin urement by glucometer (mass/volume)Ordered By: Nelson Orourke on 12-28-2023 Glucose [Mass/Vol] 144 mg/dL Normal [facility] Comment on above: Random Glucose Refer ence Range is dependent on time and content of last meal. Glucose of more than 200 mg/dL in a nonstressed, ambulatory subject supports the diagnosis of Diabetes Mellitus. Result Comment: [place] Glucose Reference Range is dependent on time and content of last meal. Glucose of more than 200 mg/dL in a nonstressed, ambulatory subject supports the diagnosis of Diabetes Mellitus. PERFORMED BY: [address] [place] [address] PATHOLOGIST BULLET SWAGING MACHINE ADJUSTER CINDY BRADSHAW M.D. Performed By: #### B MP, HEPATIC, TSH3, MG, CBC #### [facility] [address] Automated basophil %Ordered By: Ren Mohan on 12-27-2023 Basophils/100 WBC (Bld) 0.8 % Normal . [facility] Comment on above: Performed By: #### B MP, HEPATIC, TSH3, MG, CBC #### [facility] [address] [place] [address] [place] Automated basophil countOrde red By: Ren Mohan on 12-27-2023 Basophils (Bld) [#/Vol] 0.1 10*3/uL Normal 0.0-0.2 [facility] Comment on above: Result Comment: PERF ORMED BY: [place] [address] PATHOLOGIST BULLET SWAGING MACHINE ADJUSTER CINDY BRADSHAW M.D. Performed By: #### B MP, HEPATIC, TSH3, MG, CBC #### [address] Automated blood monocyte cou ntOrdered By: Ren Mohan on 12-27-2023 Monocytes (Bld) [#/Vol] 0.9 10*3/uL High 0.0-0.8 [facility] Comment on above: Performed By: #### B MP, HEPATIC, TSH3, MG, CBC #### [address] Automated eosinophil %Ordere d By: Ren Mohan on 12-27-2023 Eosinophils/100 WBC (Bld) 3.4 % Normal . [facility] Comment on above: Performed By: #### B MP, HEPATIC, TSH3, MG, CBC #### [address] Automated eosinophil countOr dered By: Ren Mohan on 12-27-2023 Eosinophils (Bld) [#/Vol] 0.2 10*3/uL Normal 0.0-0.45 [facility] Comment on above: Performed By: #### B MP, HEPATIC, TSH3, MG, CBC #### [address] Automated monocyte %Ordered By: Ren Mohan on 12-27-2023 Monocytes/100 WBC (Bld) 12.5 % Normal . [facility] Comment on above: Performed By: #### B MP, HEPATIC, TSH3, MG, CBC #### [address] Automated neutrophil %Ordere d By: Ren Mohan on 12-27-2023 Neutrophils/100 WBC (Bld) 48.8 % Normal . [facility] Comment on above: Performed By: #### B MP, HEPATIC, TSH3, MG, CBC #### [address] Basic Metabolic Panelon 10-0 Creatinine Clr Calc Pharmacy 52.61 Normal [facility] Comment on above: Performed By: #### B MP, HEPATIC, TSH3, MG, CBC #### [address] GFR/1.73 sq M.predicted MDRD (S/P/Bld) [Vol rate/Area] 47.889 mL/min/{1.73_m2} Normal [facility] Comment on above: Performed By: #### B MP, HEPATIC, TSH3, MG, CBC #### [address] Calcium [Mass/volume] in Ser um or PlasmaOrdered By: Ren Mohan on 12-27-2023 Calcium [Mass/Vol] 8.6 mg/dL Normal 8.6-10.3 [facility] Comment on above: Performed By: #### B MP, HEPATIC, TSH3, MG, CBC #### [address] Carbon dioxide, total [Moles /volume] in Serum or PlasmaOrdered By: Ren Mohan on 12-27-2023 CO2 [Moles/Vol] 24.9 mmol/L Normal 21.0-31.0 [facility] Comment on above: Performed By: #### B MP, HEPATIC, TSH3, MG, CBC #### [address] Chloride [Moles/volume] in S octaviano or PlasmaOrdered By: Ren Mohan on 12-27-2023 Chloride [Moles/Vol] 102 mmol/L Normal 98-107 [facility] Comment on above: Performed By: #### B MP, HEPATIC, TSH3, MG, CBC #### [address] Complete Blood Count Auto Di ffon 12-27-2023 Mean Corpuscular HGB Conc 33.9 g/dL Normal 32.0-35.0 [facility] Comment on above: Performed By: #### B MP, HEPATIC, TSH3, MG, CBC #### [facility] [address] NRBC% 0.0 /100{WBC} Normal 0-0.5 [facility] Comment on above: Performed By: #### B MP, HEPATIC, TSH3, MG, CBC #### [facility] [address] [place] [address] Creatinine [Mass/volume] in Serum or PlasmaOrdered By: Ren Mohan on 12-27-2023 Creatinine [Mass/Vol] 1.12 mg/dL Normal 0.60-1.20 [facility] Comment on above: Performed By: #### B MP, HEPATIC, TSH3, MG, CBC #### [facility] [address] [place] [address] ECH echo transthoracicon ECH echo transthoracic [facility] [place] [address] [place] [address] Echocardiogram Signed Patient: Mohan Espinoza MR#: [id number] 8 : 1935 Acct:[id number] Age/Sex: 88 / F ADM Date: 12/25/23 Loc: Room: [address] [place] [address] Type: ADM IN Attending Dr: Nelson Orourke [...] DM. Factor V Leiden. IVC Filter. HTN. IN. Cancer. Chemotherapy. PE. CABG. PCI. Former Smoke [...] By: Jane Carrillo MD 12/27/231957 Normal [facility] Erythrocyte distribution wid th [Ratio] by Automated countOrdered By: Ren Mohan on 12-27-2023 Erythrocyte distribution width (RBC) [Ratio] 14.4 % Normal 11.9-15.3 [facility] Comment on above: Performed By: #### B MP, HEPATIC, TSH3, MG, CBC #### [facility] [address] [place] [address] Erythrocytes [#/volume] in B lood by Automated countOrdered By: Ren Mohan on 12-27-2023 RBC (Bld) [#/Vol] 4.26 10*6/uL Normal 3.60-5.00 [facility] Comment on above: Performed By: #### B MP, HEPATIC, TSH3, MG, CBC #### [facility] [address] [place] [address] Glucose Poct Glucometerson 1 Glucose [Mass/Vol] 220 mg/dL Normal [facility] Comment on above: Result Comment: [facility] Glucose Reference Range is dependent on time and content of last meal. Glucose of more than 200 mg/dL in a nonstressed, ambulatory subject supports the diagnosis of Diabetes Mellitus. PERFORMED BY: [place] [address] PATHOLOGIST BULLET SWAGING MACHINE ADJUSTER CINDY BRADSHAW M.D. Performed By: #### B MP, HEPATIC, TSH3, MG, CBC #### [facility] [address] [place], [place] [id number] [facility] Glucose [Mass/Vol] 242 mg/dL Normal [facility] Comment on above: Result Comment: [place] om Glucose Reference Range is dependent on time and content of last meal. Glucose of more than 200 mg/dL in a nonstressed, ambulatory subject supports the diagnosis of Diabetes Mellitus. PERFORMED BY: [place] [id number] PATHOLOGIST BULLET SWAGING MACHINE ADJUSTER CINDY BRADSHAW M.D. Performed By: #### B MP, HEPATIC, TSH3, MG, CBC #### [address] Glucose [Mass/Vol] 272 mg/dL Normal [facility] Comment on above: Result Comment: [place] om Glucose Reference Range is dependent on time and content of last meal. Glucose of more than 200 mg/dL in a nonstressed, ambulatory subject supports the diagnosis of Diabetes Mellitus. PERFORMED BY: [place] [id number] PATHOLOGIST BULLET SWAGING MACHINE ADJUSTER CINDY BRADSHAW M.D. Performed By: #### B MP, HEPATIC, TSH3, MG, CBC #### [address] [address] [facility] Glucose [Mass/Vol] 182 mg/dL Normal [facility] Comment on above: Result Comment: [place] om Glucose Reference Range is dependent on time and content of last meal. Glucose of more than 200 mg/dL in a nonstressed, ambulatory subject supports the diagnosis of Diabetes Mellitus. PERFORMED BY: [place] [id number] PATHOLOGIST BULLET SWAGING MACHINE ADJUSTER CINDY BRADSHAW M.D. Performed By: #### B MP, HEPATIC, TSH3, MG, CBC #### [place] [id number] [place] Glucose [Mass/volume] in Ser um or PlasmaOrdered By: Ren Mohan on 12-27-2023 Glucose [Mass/Vol] 172 mg/dL High 70-100 [facility] Comment on above: ADA recommended refe rence rangeRandom Glucose Reference Range is dependent on time and content of last meal. Glucose of more than 200 mg/dL in a nonstressed, ambulatory subject supports the diagnosis of Diabetes Mellitus. Result Comment: [place] Glucose Reference Range is dependent on time and content of last meal. Glucose of more than 200 mg/dL in a nonstressed, ambulatory subject supports the diagnosis of Diabetes Mellitus. ADA recommended reference range Performed By: #### B MP, HEPATIC, TSH3, MG, CBC #### [address] Hematocrit [Volume Fraction] of Blood by Automated countOrdered By: Ren Mohan on 12-27-2023 Hematocrit (Bld) [Volume fraction] 39.7 % Normal 34.0-46.4 [facility] Comment on above: Performed By: #### B MP, HEPATIC, TSH3, MG, CBC #### [facility] [address] [place] [address] Hemoglobin [Mass/volume] in BloodOrdered By: Ren Mohan on 12-27-2023 Hemoglobin (Bld) [Mass/Vol] 13.5 g/dL Normal 11.8-15.4 [facility] Comment on above: Performed By: #### B MP, HEPATIC, TSH3, MG, CBC #### [address] Leukocytes [#/volume] correc ruma for nucleated erythrocytes in Blood by Automated counOrdered By: Ren Mohan on 12-27-2023 WBC corrected for nucl RBC Auto (Bld) [#/Vol] 7.1 10*3/uL 3.8-11.6 [facility] Leukocytes [#/volume] in Blo od by Automated countOrdered By: Ren Mohan on 12-27-2023 WBC (Bld) [#/Vol] 7.1 10*3/uL Normal 3.8-11.6 [facility] Comment on above: Performed By: #### B MP, HEPATIC, TSH3, MG, CBC #### [facility] [address] [place] [address] [place] Lymphocytes [#/volume] in Bl ood by Automated countOrdered By: Ren Mohan on 12-27-2023 Lymphocytes (Bld) [#/Vol] 2.4 10*3/uL Normal 1.00-4.8 [facility] Comment on above: Performed By: #### B MP, HEPATIC, TSH3, MG, CBC #### [address] Lymphocytes/100 leukocytes i n Blood by Automated countOrdered By: Ren Mohan on 12-27-2023 Lymphocytes/100 WBC (Bld) 34.5 % Normal . [facility] Comment on above: Performed By: #### B MP, HEPATIC, TSH3, MG, CBC #### [address] MCH [Entitic mass] by Automa ruma countOrdered By: Ren Mohan on 12-27-2023 MCH (RBC) [Entitic mass] 31.6 pg Normal 24.7-34.3 [facility] Comment on above: Performed By: #### B MP, HEPATIC, TSH3, MG, CBC #### [address] MCHC Auto (RBC) [Mass/Vol]Or dered By: Ren Mohan on 12-27-2023 MCHC (RBC) [Mass/Vol] 33.9 g/dL 32.0-35.0 [facility] MCV [Entitic volume] by Auto mated countOrdered By: Ren Mohan on 12-27-2023 MCV (RBC) [Entitic vol] 93.2 fL Normal 80-100 [facility] Comment on above: Performed By: #### B MP, HEPATIC, TSH3, MG, CBC #### [facility] [address] [place] [address] Magnesium [Mass/volume] in S octaviano or PlasmaOrdered By: Ren Mohan on 12-27-2023 Magnesium [Mass/Vol] 1.9 mg/dL Normal 1.9-2.7 [facility] Comment on above: Result Comment: PERF ORMED BY: [place] [address] PATHOLOGIST BULLET SWAGING MACHINE ADJUSTER CINDY BRADSHAW M.D. Performed By: #### B MP, HEPATIC, TSH3, MG, CBC #### [place] [id number] [place] Neutrophils [#/volume] in Bl ood by Automated countOrdered By: Ren Mohan on 12-27-2023 Neutrophils (Bld) [#/Vol] 3.5 10*3/uL Normal 1.8-7.7 [facility] Comment on above: Performed By: #### B MP, HEPATIC, TSH3, MG, CBC #### [facility] [address] [place] [address] No Panel InformationOrdered By: Ren Mohan on 12-27-2023 Estimated GFR (CKD-EPI) 47.889 mL/Min [facility] Creatinine Clearance (Chem 52.61 [facility] Nucleated erythrocytes [Pres ence] in Blood by Automated countOrdered By: Ren Mohan on 12-27-2023 Nucleated RBC Auto Ql (Bld) 0.0 /100{WBC} 0-0.5 [facility] Platelet mean volume [Entiti c volume] in Blood by Automated countOrdered By: Ren Mohan on 12-27-2023 Platelet mean volume (Bld) [Entitic vol] 9.9 fL Normal 6.3-10.7 [facility] Comment on above: Performed By: #### B MP, HEPATIC, TSH3, MG, CBC #### [address] Platelets [#/volume] in Bloo d by Automated countOrdered By: Ren Mohan on 12-27-2023 Platelets (Bld) [#/Vol] 175 10*3/uL Normal 150-450 [facility] Comment on above: Performed By: #### B MP, HEPATIC, TSH3, MG, CBC #### [facility] [address] [place] [address] Potassium [Moles/volume] in Serum or PlasmaOrdered By: Ren Mohan on 12-27-2023 Potassium [Moles/Vol] 3.6 mmol/L Normal 3.5-5.1 [facility] Comment on above: Performed By: #### B MP, HEPATIC, TSH3, MG, CBC #### [address] Serum or plasma anion gap de terminationOrdered By: Ren Mohan on 12-27-2023 Anion gap [Moles/Vol] 11.7 mmol/L Normal 6.0-15.0 [facility] Comment on above: Performed By: #### B MP, HEPATIC, TSH3, MG, CBC #### [facility] [address] Sodium [Moles/volume] in Ser um or PlasmaOrdered By: Ren Mohan on 12-27-2023 Sodium [Moles/Vol] 135 mmol/L Low 136-145 [facility] Comment on above: Performed By: #### B MP, HEPATIC, TSH3, MG, CBC #### [facility] [address] US venous duplex LE BIon US venous duplex LE BI [facility] [place] [address] [place] [address] Ultrasound Report Signed Patient: Mohan Espinoza MR#: [id number] 8 : 1935 Acct:[id number] Age/Sex: 88 / F ADM Date: 12/25/23 Loc: Room: [address] [place] [address] Type: ADM IN Attending Dr: Nelson Orourke [...] Jaxson Cooney MD12/27/2023 2:30 PM Dictation Location: [place] [address] Tech: Selena Meade Transcribed By: SANA 12/27/23 143 Dictated By: Jaxson Cooney MD 12/27/231429 Signed By: 12/27/23 143 Normal [facility] Urea nitrogen [Mass/volume] in Serum or PlasmaOrdered By: Ren Mohan on 12-27-2023 Urea nitrogen [Mass/Vol] 38 mg/dL High 7-25 [facility] Comment on above: Performed By: #### B MP, HEPATIC, TSH3, MG, CBC #### [facility] [address] [place] [address] [place] Alanine aminotransferase [En zymatic activity/volume] in Serum or PlasmaOrdered By: Apryl Shirley on 12-26-2023 ALT [Catalytic activity/Vol] 11 U/L Normal 7-52 [facility] Comment on above: Performed By: #### B MP, HEPATIC, TSH3, MG, CBC #### [facility] [address] [place] [id number] [place] Albumin [Mass/volume] in Ser um or Plasma by Bromocresol green (BCG) dye binding methoOrdered By: Apryl Shirley on 12-26-2023 Albumin BCG dye [Mass/Vol] 3.3 g/dL Low 3.5-5.7 [facility] Alkaline phosphatase [Enzyma tic activity/volume] in Serum or PlasmaOrdered By: Apryl Shirley on 12-26-2023 ALP [Catalytic activity/Vol] 77 U/L Normal 34-104 [facility] Comment on above: Performed By: #### B MP, HEPATIC, TSH3, MG, CBC #### [facility] [address] [place] [id number] [place] Aspartate aminotransferase [ Enzymatic activity/volume] in Serum or PlasmaOrdered By: Apryl Shirley on 12-26-2023 AST [Catalytic activity/Vol] 17 U/L Normal 13-39 [facility] Comment on above: Performed By: #### B MP, HEPATIC, TSH3, MG, CBC #### [address] Basic Metabolic Panelon 10-0 -2023 Anion gap [Moles/Vol] 12.7 mmol/L Normal 6.0-15.0 [facility] Comment on above: Performed By: #### B MP, HEPATIC, TSH3, MG, CBC #### [address] Calcium [Mass/Vol] 8.7 mg/dL Normal 8.6-10.3 [facility] Comment on above: Performed By: #### B MP, HEPATIC, TSH3, MG, CBC #### [address] Chloride [Moles/Vol] 100 mmol/L Normal 98-107 [facility] Comment on above: Performed By: #### B MP, HEPATIC, TSH3, MG, CBC #### [address] CO2 [Moles/Vol] 26.1 mmol/L Normal 21.0-31.0 [facility] Comment on above: Performed By: #### B MP, HEPATIC, TSH3, MG, CBC #### [address] Creatinine [Mass/Vol] 1.37 mg/dL High 0.60-1.20 [facility] Comment on above: Performed By: #### B MP, HEPATIC, TSH3, MG, CBC #### [address] Creatinine Clr Calc Pharmacy 42.97 Normal [facility] Comment on above: Performed By: #### B MP, HEPATIC, TSH3, MG, CBC #### [address] GFR/1.73 sq M.predicted MDRD (S/P/Bld) [Vol rate/Area] 37.604 mL/min/{1.73_m2} Normal [facility] Comment on above: Performed By: #### B MP, HEPATIC, TSH3, MG, CBC #### [address] Glucose [Mass/Vol] 180 mg/dL High 70-100 [facility] Comment on above: Result Comment: [facility] Glucose Reference Range is dependent on time and content of last meal. Glucose of more than 200 mg/dL in a nonstressed, ambulatory subject supports the diagnosis of Diabetes Mellitus. ADA recommended reference range Performed By: #### B MP, HEPATIC, TSH3, MG, CBC #### [address] Potassium [Moles/Vol] 3.8 mmol/L Normal 3.5-5.1 [facility] Comment on above: Performed By: #### B MP, HEPATIC, TSH3, MG, CBC #### [address] Sodium [Moles/Vol] 135 mmol/L Low 136-145 [facility] Comment on above: Performed By: #### B MP, HEPATIC, TSH3, MG, CBC #### [address] Urea nitrogen [Mass/Vol] 44 mg/dL High 7-25 [facility] Comment on above: Performed By: #### B MP, HEPATIC, TSH3, MG, CBC #### [address] Bilirubin.direct [Mass/volum e] in Serum or PlasmaOrdered By: Apryl Shirley on 12-26-2023 Bilirubin.direct [Mass/Vol] 0.10 mg/dL 0.03-0.18 [facility] Bilirubin.total [Mass/volume ] in Serum or PlasmaOrdered By: Apryl Shirley on 12-26-2023 Bilirubin [Mass/Vol] 0.5 mg/dL Normal 0.3-1.0 [facility] Comment on above: Performed By: #### B MP, HEPATIC, TSH3, MG, CBC #### [address] Complete Blood Count Auto Di ffon 12-26-2023 Basophils (Bld) [#/Vol] 0.0 10*3/uL Normal 0.0-0.2 [facility] Comment on above: Result Comment: PERF ORMED BY: [place] [address] PATHOLOGIST BULLET SWAGING MACHINE ADJUSTER CINDY BRADSHAW M.D. Performed By: #### B MP, HEPATIC, TSH3, MG, CBC #### [address] Basophils/100 WBC (Bld) 0.6 % Normal . [facility] Comment on above: Performed By: #### B MP, HEPATIC, TSH3, MG, CBC #### [address] Eosinophils (Bld) [#/Vol] 0.2 10*3/uL Normal 0.0-0.45 [facility] Comment on above: Performed By: #### B MP, HEPATIC, TSH3, MG, CBC #### [address] Eosinophils/100 WBC (Bld) 2.2 % Normal . [facility] Comment on above: Performed By: #### B MP, HEPATIC, TSH3, MG, CBC #### [address] Erythrocyte distribution width (RBC) [Ratio] 14.8 % Normal 11.9-15.3 [facility] Comment on above: Performed By: #### B MP, HEPATIC, TSH3, MG, CBC #### [address] Hematocrit (Bld) [Volume fraction] 42.0 % Normal 34.0-46.4 [facility] Comment on above: Performed By: #### B MP, HEPATIC, TSH3, MG, CBC #### [address] Hemoglobin (Bld) [Mass/Vol] 14.1 g/dL Normal 11.8-15.4 [facility] Comment on above: Performed By: #### B MP, HEPATIC, TSH3, MG, CBC #### [address] Lymphocytes (Bld) [#/Vol] 2.2 10*3/uL Normal 1.00-4.8 [facility] Comment on above: Performed By: #### B MP, HEPATIC, TSH3, MG, CBC #### [address] Lymphocytes/100 WBC (Bld) 30.0 % Normal . [facility] Comment on above: Performed By: #### B MP, HEPATIC, TSH3, MG, CBC #### [address] MCH (RBC) [Entitic mass] 31.5 pg Normal 24.7-34.3 [facility] Comment on above: Performed By: #### B MP, HEPATIC, TSH3, MG, CBC #### [address] MCV (RBC) [Entitic vol] 93.9 fL Normal 80-100 [facility] Comment on above: Performed By: #### B MP, HEPATIC, TSH3, MG, CBC #### [address] Mean Corpuscular HGB Conc 33.6 g/dL Normal 32.0-35.0 [facility] Comment on above: Performed By: #### B MP, HEPATIC, TSH3, MG, CBC #### [address] Monocytes (Bld) [#/Vol] 0.9 10*3/uL High 0.0-0.8 [facility] Comment on above: Performed By: #### B MP, HEPATIC, TSH3, MG, CBC #### [address] Monocytes/100 WBC (Bld) 12.2 % Normal . [facility] Comment on above: Performed By: #### B MP, HEPATIC, TSH3, MG, CBC #### [address] Neutrophils (Bld) [#/Vol] 4.1 10*3/uL Normal 1.8-7.7 [facility] Comment on above: Performed By: #### B MP, HEPATIC, TSH3, MG, CBC #### [address] Neutrophils/100 WBC (Bld) 55.0 % Normal . [facility] Comment on above: Performed By: #### B MP, HEPATIC, TSH3, MG, CBC #### [address] NRBC% 0.2 /100{WBC} Normal 0-0.5 [facility] Comment on above: Performed By: #### B MP, HEPATIC, TSH3, MG, CBC #### [address] Platelet mean volume (Bld) [Entitic vol] 10.1 fL Normal 6.3-10.7 [facility] Comment on above: Performed By: #### B MP, HEPATIC, TSH3, MG, CBC #### [address] Platelets (Bld) [#/Vol] 168 10*3/uL Normal 150-450 [facility] Comment on above: Performed By: #### B MP, HEPATIC, TSH3, MG, CBC #### [address] RBC (Bld) [#/Vol] 4.47 10*6/uL Normal 3.60-5.00 [facility] Comment on above: Performed By: #### B MP, HEPATIC, TSH3, MG, CBC #### [address] WBC (Bld) [#/Vol] 7.4 10*3/uL Normal 3.8-11.6 [facility] Comment on above: Performed By: #### B MP, HEPATIC, TSH3, MG, CBC #### [address] ECG 12 lead ECGon 12-26-2023 ECG 12 lead ECG [facility] Main [place] [address] [place] [address] Electrocardiograph Report Signed Patient: Mohan Espinoza MR#: [id number] 8 : 1935 Acct:[id number] Age/Sex: 88 / F ADM Date: 12/25/23 Loc: Room: [address] [place] [address] Type: ADM IN Attending Dr: Apryl Shirley [...] QT Abnormal ECG Confirmed by Nubia Holley ([id number]) on 12/26/2023 3:04:05 PM Referred By: Electronically Signed By: Nubia Holley Transcribed By: MUS Signed By Nubia Holley MD 4 1504 Normal [facility] Glucose Poct Glucometerson 1 Glucose [Mass/Vol] 287 mg/dL Normal [facility] Comment on above: Result Comment: [facility] Glucose Reference Range is dependent on time and content of last meal. Glucose of more than 200 mg/dL in a nonstressed, ambulatory subject supports the diagnosis of Diabetes Mellitus. PERFORMED BY: [place] [address] PATHOLOGIST BULLET SWAGING MACHINE ADJUSTER CINDY BRADSHAW M.D. Performed By: #### B MP, HEPATIC, TSH3, MG, CBC #### [address] Glucose [Mass/Vol] 217 mg/dL Normal [facility] Comment on above: Result Comment: [facility] Glucose Reference Range is dependent on time and content of last meal. Glucose of more than 200 mg/dL in a nonstressed, ambulatory subject supports the diagnosis of Diabetes Mellitus. PERFORMED BY: [address] [place] [address] PATHOLOGIST BULLET SWAGING MACHINE ADJUSTER CINDY BRADSHAW M.D. Performed By: #### G LUJIMMIE #### Point of Care testing , Glucose [Mass/Vol] 286 mg/dL Normal [facility] Comment on above: Result Comment: [place] Glucose Reference Range is dependent on time and content of last meal. Glucose of more than 200 mg/dL in a nonstressed, ambulatory subject supports the diagnosis of Diabetes Mellitus. PERFORMED BY: [place] [address] PATHOLOGIST BULLET SWAGING MACHINE ADJUSTER CINDY BRADSHAW M.D. Performed By: #### B MP, HEPATIC, TSH3, MG, CBC #### [address] Glucose [Mass/Vol] 155 mg/dL Normal [facility] Comment on above: Result Comment: [facility] Glucose Reference Range is dependent on time and content of last meal. Glucose of more than 200 mg/dL in a nonstressed, ambulatory subject supports the diagnosis of Diabetes Mellitus. PERFORMED BY: [place] [address] PATHOLOGIST BULLET SWAGING MACHINE ADJUSTER CINDY BRADSHAW M.D. Performed By: #### G AURELIA #### Point of Care testing , Hepatic Panelon 12-26-2023 Albumin [Mass/Vol] 3.3 g/dL Low 3.5-5.7 [facility] Comment on above: Performed By: #### B MP, HEPATIC, TSH3, MG, CBC #### [address] Bilirubin,Indirect 0.4 mg/dL Normal [facility] Comment on above: Performed By: #### B MP, HEPATIC, TSH3, MG, CBC #### [address] Bilirubin.indirect [Mass/Vol] 0.10 mg/dL Normal 0.03-0.18 [facility] Comment on above: Performed By: #### B MP, HEPATIC, TSH3, MG, CBC #### [place] [address] Magnesiumon 12-26-2023 Magnesium [Mass/Vol] 2.1 mg/dL Normal 1.9-2.7 [facility] Comment on above: Performed By: #### B MP, HEPATIC, TSH3, MG, CBC #### [address] Protein [Mass/volume] in Ser um or PlasmaOrdered By: Apryl Shirley on 12-26-2023 Protein [Mass/Vol] 6.7 g/dL Normal 6.4-8.9 [facility] Comment on above: Performed By: #### B MP, HEPATIC, TSH3, MG, CBC #### [address] Serum globulin measurement b y calculation (mass/volume)Ordered By: Apryl Shirley on 12-26-2023 Globulin (S) [Mass/Vol] 3.4 g/dL Normal [facility] Comment on above: Performed By: #### B MP, HEPATIC, TSH3, MG, CBC #### [facility] [address] [place] [address] Serum or plasma albumin/glob ulin mass ratioOrdered By: Apryl Shirley on 12-26-2023 Albumin/Globulin [Mass ratio] 1.0 {ratio} [facility] Comment on above: Performed By: #### B MP, HEPATIC, TSH3, MG, CBC #### [facility] [address] [place] [address] Serum or plasma non-glucuron idated bilirubin measurement (mass/volume)Ordered By: Apryl Shirley on 12-26-2023 Bilirubin.indirect [Mass/Vol] 0.4 mg/dL [facility] Thyrotropin [Units/volume] i n Serum or PlasmaOrdered By: Ren Mohan on 12-26-2023 TSH Qn 0.61 m[IU]/L Normal 0.45-5.33 [facility] Comment on above: Result Comment: PERF ORMED BY: [place] [address] PATHOLOGIST BULLET SWAGING MACHINE ADJUSTER CINDY BRADSHAW M.D. Performed By: #### B MP, HEPATIC, TSH3, MG, CBC #### [facility] [address] [place], [place] [id number] [place] Troponin I High Sensitivityo n 12-26-2023 Troponin I High Sensitivity 73.3 pg/mL Off scale high 0.0-15.0 [facility] Comment on above: Result Comment: Crit ical Result : Called to and read back by: CLAUDIA ARELLANO at: 12/26/2023 07:38:15 by:SPENCER PERFORMED BY: [place] [address] PATHOLOGIST BULLET SWAGING MACHINE ADJUSTER CINDY BRADSHAW M.D. Performed By: #### H S TROP #### [address] [address] Troponin I.cardiac [Mass/vol ume] in Serum or Plasma by Detection limit <= 0.01 ng/Ordered By: Apryl Shirley on 12-26-2023 Troponin I.cardiac DL <= 0.01 ng/mL [Mass/Vol] 73.3 pg/mL High 0.0-15.0 [facility] Comment on above: Critical Result : Ca lled to and read back by: CLAUDIA ARELLANO at: 12/26/2023 07:38:15 by:SPENCER XR chest 1V portableon 12-25 XR chest 1V portable [facility] Main [place] [address] [place] [address] XRay Report Signed Patient: Mohan Espinoza MR#: [id number] 8 : 1935 Acct:[id number] Age/Sex: 88 / F ADM Date: 12/25/23 Loc: Room: [address] [place] [address] Type: ADM IN Attending Dr: Apryl Shirley [...] Dove Jr., D.OAshish12/26/2023 9:37 AM Dictation Location: [place] [address] Transcribed By: [facility] 12/26/23936 Dictated By: Ck Dove Jr DO 12/26/23935 Signed By: 12/26/23936 Normal [facility] A1C with Estimated Average Darnell blackwell 12-25-2023 Glucose [Mass/Vol] 177 mg/dL Normal [facility] Comment on above: Result Comment: PERF ORMED BY: [place] [address] PATHOLOGIST BULLET SWAGING MACHINE ADJUSTER CINDY BRADSHAW M.D. Performed By: #### B MP, HEPATIC, TSH3, MG, CBC #### [facility] [address] [place] [address] Activated partial thrombopla stin time (aPTT) in platelet poor plasma by coagulation aOrdered By: Ren Mohan on 12-25-2023 aPTT Coag (PPP) [Time] 33.2 s 25.1-36.5 [facility] Comment on above: A hematocrit value g reater than 55% may lead to inaccurate results in coagulation testing. Patients having hematocrit values >55% require a special collection tube for coagulation studies. Please contact the laboratory at [phone] for redraw instructions. Basic Metabolic Panelon Anion gap [Moles/Vol] 14.8 mmol/L Normal 6.0-15.0 Th e [facility] Comment on above: Order Comment: FASTI NG N Performed By: #### B MP, HEPATIC, TSH3, MG, CBC #### [facility] [address] [place] [address] Calcium [Mass/Vol] 8.5 mg/dL Low 8.6-10.3 [facility] Comment on above: Order Comment: FASTI NG N Performed By: #### B MP, HEPATIC, TSH3, MG, CBC #### [facility] [address] Chloride [Moles/Vol] 99 mmol/L Normal 98-107 [facility] Comment on above: Order Comment: FASTI NG N Performed By: #### B MP, HEPATIC, TSH3, MG, CBC #### [facility] [address] CO2 [Moles/Vol] 25.5 mmol/L Normal 21.0-31.0 [facility] Comment on above: Order Comment: FASTI NG N Performed By: #### B MP, HEPATIC, TSH3, MG, CBC #### [address] Creatinine [Mass/Vol] 1.84 mg/dL High 0.60-1.20 [facility] [facility] Comment on above: Order Comment: FASTI NG N Performed By: #### B MP, HEPATIC, TSH3, MG, CBC #### [address] Creatinine Clr Calc Pharmacy 31.63 Normal [facility] Comment on above: Order Comment: FASTI NG N Performed By: #### B MP, HEPATIC, TSH3, MG, CBC #### [address] GFR/1.73 sq M.predicted MDRD (S/P/Bld) [Vol rate/Area] 26.395 mL/min/{1.73_m2} Normal [facility] Comment on above: Order Comment: FASTI NG N Performed By: #### B MP, HEPATIC, TSH3, MG, CBC #### [address] Glucose [Mass/Vol] 258 mg/dL High 70-100 [facility] Comment on above: Order Comment: FASTI NG N Result Comment: [place] om Glucose Reference Range is dependent on time and content of last meal. Glucose of more than 200 mg/dL in a nonstressed, ambulatory subject supports the diagnosis of Diabetes Mellitus. ADA recommended reference range Performed By: #### B MP, HEPATIC, TSH3, MG, CBC #### [address] Potassium [Moles/Vol] 4.3 mmol/L Normal 3.5-5.1 [facility] Comment on above: Order Comment: FASTI NG N Performed By: #### B MP, HEPATIC, TSH3, MG, CBC #### [address] Sodium [Moles/Vol] 135 mmol/L Low 136-145 [facility] Comment on above: Order Comment: FASTI NG N Performed By: #### B MP, HEPATIC, TSH3, MG, CBC #### [address] Urea nitrogen [Mass/Vol] 45 mg/dL High 7-25 [facility] Comment on above: Order Comment: FASTI NG N Performed By: #### B MP, HEPATIC, TSH3, MG, CBC #### [address] BioFire Not Detectedon 12-24 BioFire Not Detected Not detected Normal Not Detecte [facility] Comment on above: Result Comment: This is a duplicate RP2.1 COVID (PCR) result to be used for statistical tracking purpose only. PERFORMED BY: [place] [address] PATHOLOGIST BULLET SWAGING MACHINE ADJUSTER CINDY BRADSHAW M.D. Performed By: #### B MP, HEPATIC, TSH3, MG, CBC #### [address] Blood Cultureon 12-25-2023 Bacteria identified Cx Nom (Bld) NO GROWTH 5 DAYS PERFORMED BY: [place] [address] PATHOLOGIST BULLET SWAGING MACHINE ADJUSTER CINDY BRADSHAW M.D. Normal [facility] Comment on above: Performed By: #### B MP, HEPATIC, TSH3, MG, CBC #### [address] COVID-19 Detected/Not Detect edOrdered By: Ren Mohan on 12-25-2023 SARS-CoV-2 (COVID-19) RNA COLIN+non-probe Ql (Nph) Not detected Not Detecte [facility] Comment on above: This is a duplicate RP2.1 COVID (PCR) result to be used for statistical tracking purpose only. Cholesterol [Mass/volume] in Serum or PlasmaOrdered By: Ren Mohan on 12-25-2023 Cholesterol [Mass/Vol] 166 mg/dL Normal 140-200 [facility] Comment on above: Chol less than 200 m g/dl low riskChol 201-239 mg/dl borderline riskChol 240 mg/dl and greater high risk Order Comment: FASTI NG N Result Comment: Chol less than 200 mg/dl low risk Chol 201-239 mg/dl borderline risk Chol 240 mg/dl and greater high risk Performed By: #### B MP, HEPATIC, TSH3, MG, CBC #### [facility] [address] [place] [address] [facility] Cholesterol in LDL Calc [Mas s/Vol]Ordered By: Ren Mohan on 12-25-2023 Cholesterol in LDL [Mass/Vol] 115 mg/dL High 0-100 [facility] Comment on above: LDL ATP III CLASSIFI CATIONLDL less than 100 mg/dL OptimalLDL 100-129 mg/dL Near or above optimalLDL 130-159 mg/dL Borderline highLDL 160-189 mg/dL HighLDL greater than 189 mg/dL Very high Cholesterol in VLDL Calc [Ma ss/Vol]Ordered By: Ren Mohan on 12-25-2023 Cholesterol in VLDL [Mass/Vol] 23 mg/dL [facility] Complete Blood Count Auto Di ffon 12-25-2023 Basophils (Bld) [#/Vol] 0.1 10*3/uL Normal 0.0-0.2 [facility] Comment on above: Result Comment: PERF ORMED BY: [place] [address] PATHOLOGIST BULLET SWAGING MACHINE ADJUSTER CINDY BRADSHAW M.D. Performed By: #### B MP, HEPATIC, TSH3, MG, CBC #### [facility] [address] [place] [address] [place] Basophils/100 WBC (Bld) 0.5 % Normal . [facility] Comment on above: Performed By: #### B MP, HEPATIC, TSH3, MG, CBC #### [address] Eosinophils (Bld) [#/Vol] 0.0 10*3/uL Normal 0.0-0.45 [facility] Comment on above: Performed By: #### B MP, HEPATIC, TSH3, MG, CBC #### [address] Eosinophils/100 WBC (Bld) 0.0 % Normal . [facility] Comment on above: Performed By: #### B MP, HEPATIC, TSH3, MG, CBC #### [address] Erythrocyte distribution width (RBC) [Ratio] 14.7 % Normal 11.9-15.3 [facility] Comment on above: Performed By: #### B MP, HEPATIC, TSH3, MG, CBC #### [address] Hematocrit (Bld) [Volume fraction] 42.8 % Normal 34.0-46.4 [facility] Comment on above: Performed By: #### B MP, HEPATIC, TSH3, MG, CBC #### [address] Hemoglobin (Bld) [Mass/Vol] 14.4 g/dL Normal 11.8-15.4 [facility] Comment on above: Performed By: #### B MP, HEPATIC, TSH3, MG, CBC #### [address] Lymphocytes (Bld) [#/Vol] 1.5 10*3/uL Normal 1.00-4.8 [facility] Comment on above: Performed By: #### B MP, HEPATIC, TSH3, MG, CBC #### [address] Lymphocytes/100 WBC (Bld) 9.8 % Normal . [facility] Comment on above: Performed By: #### B MP, HEPATIC, TSH3, MG, CBC #### [address] MCH (RBC) [Entitic mass] 31.4 pg Normal 24.7-34.3 [facility] Comment on above: Performed By: #### B MP, HEPATIC, TSH3, MG, CBC #### [address] MCV (RBC) [Entitic vol] 93.2 fL Normal 80-100 [facility] Comment on above: Performed By: #### B MP, HEPATIC, TSH3, MG, CBC #### [address] Mean Corpuscular HGB Conc 33.7 g/dL Normal 32.0-35.0 [facility] Comment on above: Performed By: #### B MP, HEPATIC, TSH3, MG, CBC #### [address] Monocytes (Bld) [#/Vol] 0.7 10*3/uL Normal 0.0-0.8 [facility] Comment on above: Performed By: #### B MP, HEPATIC, TSH3, MG, CBC #### [address] Monocytes/100 WBC (Bld) 5.0 % Normal . [facility] Comment on above: Performed By: #### B MP, HEPATIC, TSH3, MG, CBC #### [address] Neutrophils (Bld) [#/Vol] 12.6 10*3/uL High 1.8-7.7 [facility] Comment on above: Performed By: #### B MP, HEPATIC, TSH3, MG, CBC #### [address] Neutrophils/100 WBC (Bld) 84.7 % Normal . [facility] Comment on above: Performed By: #### B MP, HEPATIC, TSH3, MG, CBC #### [address] NRBC% 0.1 /100{WBC} Normal 0-0.5 [facility] Comment on above: Performed By: #### B MP, HEPATIC, TSH3, MG, CBC #### [address] Platelet mean volume (Bld) [Entitic vol] 10.1 fL Normal 6.3-10.7 [facility] Comment on above: Performed By: #### B MP, HEPATIC, TSH3, MG, CBC #### [address] Platelets (Bld) [#/Vol] 187 10*3/uL Normal 150-450 [facility] Comment on above: Performed By: #### B MP, HEPATIC, TSH3, MG, CBC #### [address] RBC (Bld) [#/Vol] 4.59 10*6/uL Normal 3.60-5.00 [facility] Comment on above: Performed By: #### B MP, HEPATIC, TSH3, MG, CBC #### [address] WBC (Bld) [#/Vol] 14.9 10*3/uL High 3.8-11.6 [facility] Comment on above: Performed By: #### B MP, HEPATIC, TSH3, MG, CBC #### [address] Creatine kinase [Enzymatic a ctivity/volume] in Serum or PlasmaOrdered By: Ren Mohan on 12-25-2023 CK [Catalytic activity/Vol] 52 U/L Normal 30-223 [facility] Comment on above: Performed By: #### B MP, HEPATIC, TSH3, MG, CBC #### [address] Glucose Poct Glucometerson 1 Glucose [Mass/Vol] 232 mg/dL Normal [facility] Comment on above: Result Comment: [place] Glucose Reference Range is dependent on time and content of last meal. Glucose of more than 200 mg/dL in a nonstressed, ambulatory subject supports the diagnosis of Diabetes Mellitus. PERFORMED BY: [place] [address] PATHOLOGIST BULLET SWAGING MACHINE ADJUSTER CINDY BRADSHAW M.D. Performed By: #### B MP, HEPATIC, TSH3, MG, CBC #### [place] [address] [place] Glucose [Mass/Vol] 213 mg/dL Normal [facility] Comment on above: Result Comment: [place] om Glucose Reference Range is dependent on time and content of last meal. Glucose of more than 200 mg/dL in a nonstressed, ambulatory subject supports the diagnosis of Diabetes Mellitus. PERFORMED BY: [place] [address] PATHOLOGIST BULLET SWAGING MACHINE ADJUSTER CINYD BRADSHAW M.D. Performed By: #### B MP, HEPATIC, TSH3, MG, CBC #### [address] Glucose [Mass/Vol] 252 mg/dL Normal [facility] Comment on above: Result Comment: [place] Glucose Reference Range is dependent on time and content of last meal. Glucose of more than 200 mg/dL in a nonstressed, ambulatory subject supports the diagnosis of Diabetes Mellitus. PERFORMED BY: [place] [address] PATHOLOGIST BULLET SWAGING MACHINE ADJUSTER CINDY BRADSHAW M.D. Performed By: #### B MP, HEPATIC, TSH3, MG, CBC #### [address] Glucose [Mass/Vol] 202 mg/dL Normal [facility] Comment on above: Result Comment: [place] om Glucose Reference Range is dependent on time and content of last meal. Glucose of more than 200 mg/dL in a nonstressed, ambulatory subject supports the diagnosis of Diabetes Mellitus. PERFORMED BY: [place] [address] PATHOLOGIST BULLET SWAGING MACHINE ADJUSTER CINDY BRADSHAW M.D. Performed By: #### G LULS #### Point of Care testing , Glucose mean value [Mass/vol ume] in Blood Estimated from glycated hemoglobinOrdered By: Ren Mohan on 12-25-2023 Average glucose Estimated from glycated hemoglobin (Bld) [Mass/Vol] 177 mg/dL [facility] Hemoglobin A1c percentageOrd ered By: Ren Mohan on 12-25-2023 HbA1c (Bld) [Mass fraction] 7.8 % High 4.3-5.6 [facility] Comment on above: Increased risk for d iabetes: 5.7 - 6.4diabetes: >6.4glycemic control for adults with diabetes: <7.0 Result Comment: Incr eased risk for diabetes: 5.7 - 6.4 diabetes: >6.4 glycemic control for adults with diabetes: <7.0 Performed By: #### B MP, HEPATIC, TSH3, MG, CBC #### [facility] [address] [place] [address] INR in Platelet poor plasma by Coagulation assayOrdered By: Ren Mohan on 12-25-2023 INR Coag (PPP) [Relative time] 1.2 {INR} Normal [facility] Comment on above: INR Therapeutic Rang [...] heart valves: 3 - 4.5 PERFORMED BY: [place] [address] PATHOLOGIST BULLET SWAGING MACHINE ADJUSTER CINDY BRADSHAW M.D. Performed By: #### B MP, HEPATIC, TSH3, MG, CBC #### [facility] [address] [place] [address] Lipid Panelon 12-25-2023 LDL Cholesterol,Calculated 115 mg/dL High 0-100 [facility] Comment on above: Order Comment: FASTI NG N Result Comment: LDL ATP III CLASSIFICATION LDL less than 100 mg/dL Optimal LDL 100-129 mg/dL Near or above optimal LDL 130-159 mg/dL Borderline high LDL 160-189 mg/dL High LDL greater than 189 mg/dL Very high Performed By: #### B MP, HEPATIC, TSH3, MG, CBC #### [address] Triglyceride w/Reflex 118 mg/dL Normal 0-149 [facility] Comment on above: Order Comment: FASTI NG N Result Comment: TRIG ATP III CLASSIFICATION TRIG less than 150 mg/dL Normal TRIG 150-199 mg/dL Borderline high TRIG 200-500 mg/dL High TRIG greater than 500 mg/dL Very high Standard traceable to the Center for Disease Conrtrol and Prevention (CDC) test method. Performed By: #### B MP, HEPATIC, TSH3, MG, CBC #### [address] VLDL CHOLESTEROL 23 mg/dL Normal [facility] Comment on above: Order Comment: FASTI NG N Performed By: #### B MP, HEPATIC, TSH3, MG, CBC #### [address] Magnesiumon 12-25-2023 Magnesium [Mass/Vol] 1.3 mg/dL Low 1.9-2.7 [facility] Comment on above: Order Comment: FASTI NG N Performed By: #### B MP, HEPATIC, TSH3, MG, CBC #### [place] [address] [place] Partial Thromboplastin Timeo n 12-25-2023 aPTT Coag (Bld) [Time] 33.2 s Normal 25.1-36.5 Th e [facility] Comment on above: Result Comment: A he matocrit value greater than 55% may lead to inaccurate results in coagulation testing. Patients having hematocrit values >55% require a special collection tube for coagulation studies. Please contact the laboratory at [phone] for redraw instructions. PERFORMED BY: [place] [address] PATHOLOGIST BULLET SWAGING MACHINE ADJUSTER CINDY BRADSHAW M.D. Performed By: #### P TT #### [address] Prothrombin time (PT)Ordered By: Ren Mohan on 12-25-2023 PT Coag (PPP) [Time] 14.1 s High 9.0-12.9 [facility] Comment on above: A hematocrit value g reater than 55% may lead to inaccurate results in coagulation testing. Patients having hematocrit values >55% require a special collection tube for coagulation studies. Please contact the laboratory at [phone] for redraw instructions. Result Comment: A he matocrit value greater than 55% may lead to inaccurate results in coagulation testing. Patients having hematocrit values >55% require a special collection tube for coagulation studies. Please contact the laboratory at [phone] for redraw instructions. Performed By: #### B MP, HEPATIC, TSH3, MG, CBC #### [facility] [address] [place], [place] [id number] [facility] Respiratory (Upper) Panel, P CRon 12-25-2023 Respiratory [...] A H3 Blank Space -- PERFORMED BY: [place] [address] PATHOLOGIST BULLET SWAGING MACHINE ADJUSTER CINDY BRADSHAW M.D. Normal [facility] Comment on above: Performed By: #### B MP, HEPATIC, TSH3, MG, CBC #### [facility] [address] [place] [address] Respiratory pathogens DNA an d RNA panel - Nasopharynx by COLIN with non-probe detectionOrdered By: Ren Mohan on 12-25-2023 Respiratory pathogens DNA and RNA panel COLIN+non-probe (Nph) [facility] Serum or plasma high density lipoprotein (HDL) cholesterol measurementOrdered By: Ren Mohan on 12-25-2023 Cholesterol in HDL [Mass/Vol] 27 mg/dL Normal 23-92 [facility] Comment on above: HDL CHOL ATP-III CLA SSIFICATION Cardiovascular RiskHDL > or equal to 60 mg/dL LOWHDL < 40 mg/dL HIGH Order Comment: TERA Wells Result Comment: HDL CHOL ATP-III CLASSIFICATION Cardiovascular Risk HDL > or equal to 60 mg/dL LOW HDL < 40 mg/dL HIGH Performed By: #### B MP, HEPATIC, TSH3, MG, CBC #### [facility] [address] [place] [address] Serum or plasma total choles terol/high density lipoprotein (HDL) cholesterol mass ratOrdered By: Ren Mohan on 12-25-2023 Cholesterol.total/Chol esterol in HDL [Mass ratio] 6.1 {ratio} Normal <5.0 [facility] Comment on above: Order Comment: TERA Wells Result Comment: PERF ORMED BY: [place] [address] PATHOLOGIST BULLET SWAGING MACHINE ADJUSTER CINDY BRADSHAW M.D. Performed By: #### B MP, HEPATIC, TSH3, MG, CBC #### [facility] [address] [place] [id number] [facility] Triglyceride [Mass/volume] i n Serum or PlasmaOrdered By: Ren Mohan on 12-25-2023 Triglyceride [Mass/Vol] 118 mg/dL 0-149 [facility] Comment on above: TRIG ATP III CLASSIF ICATIONTRIG less than 150 mg/dL NormalTRIG 150-199 mg/dL Borderline highTRIG 200-500 mg/dL High TRIG greater than 500 mg/dL Very highStandard traceable to the Center for Disease Conrtrol and Prevention (CDC) test method. Troponin I High Sensitivityo n 12-25-2023 Troponin I High Sensitivity 282.7 pg/mL Off scale high 0.0-15.0 [facility] Comment on above: Result Comment: Crit ical Result : Called to and read back by: ARMANI GUDINO at: 12/25/2023 07:36:52 by:SPENCER PERFORMED BY: [place] [address] PATHOLOGIST BULLET SWAGING MACHINE ADJUSTER CINDY BRADSHAW M.D. Performed By: #### B MP, HEPATIC, TSH3, MG, CBC #### [place] [id number] [facility] Office Visit (Cardiology)on 09-30-2022 Follow-up visit Diagnoses/Problems [...] Aminotransferase, Serum; Status:Active - Retrospective Authorization; Requested for:[id number]; AST; Status:Active - Retrospective Authorization; Requested for:[id number]; Basic Metabolic Panel; Status:Active - Retrospective Authorization; Requested for:[id number]; Lipid Panel; Status:Active - Retrospective Authorization; Requested for:[id number]; SocHx: Never a smoker Tobacco Use Screening; Status:Complete; Done: [id number] Patient Instructions Please bring all medicines, vitamins, [...] try to obtain most recent labs at [facility] in last two weeks if no [...] By: Yoan Dobbs MD (Gastroenterology) History of [place] filter placement [...] negative for complaint. Vitals Vital Signs Recorded: [id number] 09:09AM Heart Rate56 Qacsemna166, LUE, Sitting Sbukhyigl45, LUE, Sitting Height5 ft 8 in Tobacco [...] Psyc (more content not included)... Normal [facility] CARDIAC STRESS/REST INJE CTIONon 07-23-2022 [facility] CARDIAC STRESS/REST INJECTION Patient Name: MOHAN ESPINOZA STUDY: MYOCARDIAL PERFUSION STRESS TEST WITH LEXISCAN Performing facility: [facility], [address] [place] [address], [address], [place] [address] [facility] Provider: Leanna Casey DO, FACC PCP: Dr. Ruben Schultz Supervising provider: Yu Barriga MD, [facility] INDICATION: A-fib ASHD CHF HISTORY: Gender: F; Age: 87 y/o ; Height: 0 cm; Weight: 175.9043018 kg. CAD; Diabetes; Previous IN; Arrhythmias; Denies smoking. CABG on 2007. COMPARISON: No comparison. ACCESSION NUMBER(S): [id number]; [id number]; [id number] ORDERING CLINICIAN: JOSELUIS CASEY TECHNIQUE: TWO DAY [...] Electronically signed by: STEPHANIE HANCOCK MD Normal [facility] Height or Weight NOT Doneon 07-01-2022 Adult depression screening assessment Yes [facility]-Sandu salvador 250 DO Work Phone: Adult depression screening assessment Moderately Severe (15-19) M P-[facility]-Sandu salvador 250 DO Work Phone: Fall risk assessment a) No falls within the last year [employer]-Ivana salvador 250 DO Work Phone: Tobacco use status [facility] b) No -[facility]-Ivana salvador 250 DO Work Phone: Height or Weight NOT Done 3-Nearly every day [facility]-Ivana salvador 250 DO Work Phone: Height or Weight NOT Done 1-Several days [facility]-Ivana salvador 250 DO Work Phone: Height or Weight NOT Done 0-Not at all [facility]-Ivana salvador 250 DO Work Phone: Height or Weight NOT Done Very Difficult [facility]-Ivana salvador 250 DO Work Phone: Office Visit [...] Order; Status:Hold For - Scheduling,Retrospective Authorization; Requested for:[id number]; Radiologist to Determine Optimal Study : Y What are the patient's signs and symptoms? : cad afib Afib, ASHD (arteriosclerotic heart disease), CHF (congestive heart failure), NYHA class III, Ischemic cardiomyopathy Basic Metabolic Panel; Status:Active - Retrospective Authorization; Requested for:[id number]; Brain Natriuretic Peptide BNP; Status:Active - Retrospective Authorization; Requested for:[id number]; Health Maintenance Depression Follow-up Visit Outpatient Follow-up Status: Complete - Retrospective Authorization Done: 01Jul2022 SocHx: Never a smoker Tobacco Use Screening; Status:Complete; Done: [id number] Tobacco Use Screening; Status:Complete; Done: [id number] Patient Instructions Please bring all medicines, vitamins, and herbal supplements with you when you come to the office. Prescriptions will not be filled unless you are compliant with your follow up appointments or have a follow up appointment scheduled as per instruction of your physician. Refills should be requested at the time of your visit. Follow up in [12 ] weeks Chief Complaint [facility] [place] [place] D/C 06/23/22. 86-year-old female returns for follow-up following recent hospitalization, and transfer from outside hospital with elevated biomarkers, symptoms of UTI, abdominal discomfort, controlled atrial fibrillation and acute on chronic renal failure. Her cardiology consultation is reviewed in detail. In brief she has a history of remote CABG, previously has been seen by Dr. aRndolph for her cardiology care. She was seen [...] By: Yoan Dobbs MD (Gastroenterology) History of Lee [place] filter placement [...] Recorded: 01Jul2022 09:34AM Heart Rate68, L Radial [id number], RUE, Sitting Wvlrgxkuh75, RUE, Sitting Height5 ft 8 in Height or Weight NOT Done (more content not included)... [facility] Calcium [Mass/volume] in Ser um or PlasmaOrdered By: Brissa Hoffman on 06-29-2022 Calcium [Mass/Vol] 8.8 mg/dL 8.6-10.3 [facility] Carbon dioxide, total [Moles /volume] in Serum or PlasmaOrdered By: Brissa Hoffman on 06-29-2022 CO2 [Moles/Vol] 32.3 mmol/L 21.0-31.0 [facility] Chloride [Moles/volume] in S octaviano or PlasmaOrdered By: Brissa Hoffman on 06-29-2022 Chloride [Moles/Vol] 100 mmol/L 98-107 [facility] Creatinine [Mass/volume] in Serum or PlasmaOrdered By: Brissa Hoffman on 06-29-2022 Creatinine [Mass/Vol] 1.66 mg/dL 0.60-1.20 [facility] Glucose [Mass/volume] in Ser um or PlasmaOrdered By: Brissa Hoffman on 06-29-2022 Glucose [Mass/Vol] 245 mg/dL 70-100 [facility] Comment on above: ADA recommended refe rence rangeRandom Glucose Reference Range is dependent on time and content of last meal. Glucose of more than 200 mg/dL in a nonstressed, ambulatory subject supports the diagnosis of Diabetes Mellitus. No Panel InformationOrdered By: Brissa Hoffman on 06-29-2022 Estimated GFR (CKD-EPI) 30.239 mL/Min [facility] Creatinine Clearance (Chem N/A [facility] Potassium [Moles/volume] in Serum or PlasmaOrdered By: Brissa Hoffman on 06-29-2022 Potassium [Moles/Vol] 4.6 mmol/L 3.5-5.1 [facility] Serum or plasma anion gap de terminationOrdered By: Brissa Hoffman on 06-29-2022 Anion gap [Moles/Vol] 9.3 mmol/L 6.0-15.0 [facility] Sodium [Moles/volume] in Ser um or PlasmaOrdered By: Brissa Hoffman on 06-29-2022 Sodium [Moles/Vol] 137 mmol/L 136-145 [facility] Urea nitrogen [Mass/volume] in Serum or PlasmaOrdered By: Brissa Hoffman on 06-29-2022 Urea nitrogen [Mass/Vol] 31 mg/dL 7-25 [facility] Basophils Auto (Bld) [#/Vol] Ordered By: Brissa Hoffman on 06-23-2022 Basophils (Bld) [#/Vol] 0.1 10*3/uL 0.0-0.2 [facility] Basophils/100 WBC Auto (Bld) Ordered By: Brissa Hoffman on 06-23-2022 Basophils/100 WBC (Bld) 1.0 % . [facility] Calcium [Mass/volume] in Ser um or PlasmaOrdered By: Sharron Casey on 06-23-2022 Calcium [Mass/Vol] 8.7 mg/dL 8.6-10.3 [facility] Carbon dioxide, total [Moles /volume] in Serum or PlasmaOrdered By: Sharron Casey on 06-23-2022 CO2 [Moles/Vol] 26.3 mmol/L 21.0-31.0 [facility] Chloride [Moles/volume] in S octaviano or PlasmaOrdered By: Sharron Casey on 06-23-2022 Chloride [Moles/Vol] 102 mmol/L 98-107 [facility] Creatine kinase [Enzymatic a ctivity/volume] in Serum or PlasmaOrdered By: Sharron Casey on 06-23-2022 CK [Catalytic activity/Vol] 74 U/L 30-223 [facility] Creatinine [Mass/volume] in Serum or PlasmaOrdered By: Sharron Casey on 06-23-2022 Creatinine [Mass/Vol] 1.44 mg/dL 0.60-1.20 [facility] [place] Eosinophils Auto (Bld) [#/Vo l]Ordered By: Brissa Hoffman on 06-23-2022 Eosinophils (Bld) [#/Vol] 0.1 10*3/uL 0.0-0.45 [facility] Eosinophils/100 WBC Auto (Bl d)Ordered By: Brissa Hoffman on 06-23-2022 Eosinophils/100 WBC (Bld) 1.8 % . [facility] Erythrocyte distribution wid th Auto (RBC) [Ratio]Ordered By: Brissa Hoffman on 06-23-2022 Erythrocyte distribution width (RBC) [Ratio] 14.7 % 11.9-15.3 [facility] Glucose Glucometer (BldC) [M ass/Vol]Ordered By: Brissa Hoffman on 06-23-2022 Glucose [Mass/Vol] 230 mg/dL [facility] Comment on above: Random Glucose Refer ence Range is dependent on time and content of last meal. Glucose of more than 200 mg/dL in a nonstressed, ambulatory subject supports the diagnosis of Diabetes Mellitus. Glucose [Mass/volume] in Ser um or PlasmaOrdered By: Sharron Casey on 06-23-2022 Glucose [Mass/Vol] 255 mg/dL 70-100 [facility] Comment on above: ADA recommended refe rence rangeRandom Glucose Reference Range is dependent on time and content of last meal. Glucose of more than 200 mg/dL in a nonstressed, ambulatory subject supports the diagnosis of Diabetes Mellitus. Hematocrit Auto (Bld) [Volum e fraction]Ordered By: Brissa Hoffman on 06-23-2022 Hematocrit (Bld) [Volume fraction] 41.2 % 34.0-46.4 [facility] Hemoglobin [Mass/volume] in BloodOrdered By: Brissa Hoffman on 06-23-2022 Hemoglobin (Bld) [Mass/Vol] 13.6 g/dL 11.8-15.4 [facility] Leukocytes [#/volume] correc ruma for nucleated erythrocytes in Blood by Automated counOrdered By: Brissa Hoffman on 06-23-2022 WBC corrected for nucl RBC Auto (Bld) [#/Vol] 6.4 10*3/uL 3.8-11.6 [facility] Lymphocytes Auto (Bld) [#/Vo l]Ordered By: Brissa Hoffman on 06-23-2022 Lymphocytes (Bld) [#/Vol] 1.6 10*3/uL 1.00-4.8 [facility] Lymphocytes/100 WBC Auto (Bl d)Ordered By: Brissa Hoffman on 06-23-2022 Lymphocytes/100 WBC (Bld) 24.6 % . [facility] MCH Auto (RBC) [Entitic mass ]Ordered By: Brissa Hoffman on 06-23-2022 MCH (RBC) [Entitic mass] 30.9 pg 24.7-34.3 [facility] MCHC Auto (RBC) [Mass/Vol]Or dered By: Brissa Hoffman on 06-23-2022 MCHC (RBC) [Mass/Vol] 33.0 g/dL 32.0-35.0 [facility] MCV Auto (RBC) [Entitic vol] Ordered By: Brissa Hoffman on 06-23-2022 MCV (RBC) [Entitic vol] 93.5 fL 80-100 [facility] Monocytes Auto (Bld) [#/Vol] Ordered By: Brissa Hoffman on 06-23-2022 Monocytes (Bld) [#/Vol] 0.8 10*3/uL 0.0-0.8 [facility] Monocytes/100 WBC Auto (Bld) Ordered By: Brissa Hoffman on 06-23-2022 Monocytes/100 WBC (Bld) 12.9 % . [facility] Neutrophils Auto (Bld) [#/Vo l]Ordered By: Brissa Hoffman on 06-23-2022 Neutrophils (Bld) [#/Vol] 3.8 10*3/uL 1.8-7.7 [facility] Neutrophils/100 WBC Auto (Bl d)Ordered By: Brissa Hoffman on 06-23-2022 Neutrophils/100 WBC (Bld) 59.7 % . [facility] No Panel InformationOrdered By: Sharron Casey on 06-23-2022 Estimated GFR (CKD-EPI) 35.865 mL/Min [facility] Creatinine Clearance (Chem 42.65 [facility] Nucleated erythrocytes [Pres ence] in Blood by Automated countOrdered By: Brissa Hoffman on 06-23-2022 Nucleated RBC Auto Ql (Bld) 0.0 /100{WBC} 0-0.5 [facility] Platelet mean volume Auto (B ld) [Entitic vol]Ordered By: Brissa Hoffman on 06-23-2022 Platelet mean volume (Bld) [Entitic vol] 10.2 fL 6.3-10.7 [facility] Platelets Auto (Bld) [#/Vol] Ordered By: Brissa Hoffman on 06-23-2022 Platelets (Bld) [#/Vol] 147 10*3/uL 150-450 [facility] Potassium [Moles/volume] in Serum or PlasmaOrdered By: Sharron Casey on 06-23-2022 Potassium [Moles/Vol] 4.2 mmol/L 3.5-5.1 [facility] [place] RBC Auto (Bld) [#/Vol]Ordere d By: Brissa Hoffman on 06-23-2022 RBC (Bld) [#/Vol] 4.41 10*6/uL 3.60-5.00 [facility] Serum or plasma anion gap de terminationOrdered By: Sharron Casey on 06-23-2022 Anion gap [Moles/Vol] 10.9 mmol/L 6.0-15.0 [facility] Sodium [Moles/volume] in Ser um or PlasmaOrdered By: Sharron Casey on 06-23-2022 Sodium [Moles/Vol] 135 mmol/L 136-145 [facility] Troponin I.cardiac [Mass/vol ume] in Serum or Plasma by Detection limit <= 0.01 ng/Ordered By: Sharron Casey on 06-23-2022 Troponin I.cardiac DL <= 0.01 ng/mL [Mass/Vol] 65.3 pg/mL 0.0-15.0 [facility] Comment on above: Critical Result : Ca lled to and read back by: CHELY HERNADEZ at: 06/23/2022 10:49:30 by:LEENA Urea nitrogen [Mass/volume] in Serum or PlasmaOrdered By: Sharron Casey on 06-23-2022 Urea nitrogen [Mass/Vol] 37 mg/dL 7-25 [facility] WBC Auto (Bld) [#/Vol]Ordere d By: Brissa Hoffman on 06-23-2022 WBC (Bld) [#/Vol] 6.4 10*3/uL 3.8-11.6 [facility] Alanine aminotransferase [En zymatic activity/volume] in Serum or PlasmaOrdered By: Marcela Cano on 06-22-2022 ALT [Catalytic activity/Vol] 13 U/L 7-52 [facility] Albumin [Mass/volume] in Ser um or Plasma by Bromocresol green (BCG) dye binding methoOrdered By: Marcela Cano on 06-22-2022 Albumin BCG dye [Mass/Vol] 3.4 g/dL 3.5-5.7 [facility] Alkaline phosphatase [Enzyma tic activity/volume] in Serum or PlasmaOrdered By: Marcela Cano on 06-22-2022 ALP [Catalytic activity/Vol] 74 U/L 34-104 [facility] Aspartate aminotransferase [ Enzymatic activity/volume] in Serum or PlasmaOrdered By: Marcela Cano on 06-22-2022 AST [Catalytic activity/Vol] 16 U/L 13-39 [facility] Bilirubin.total [Mass/volume ] in Serum or PlasmaOrdered By: Marcela Cano on 06-22-2022 Bilirubin [Mass/Vol] 0.7 mg/dL 0.3-1.0 [facility] Cholesterol [Mass/volume] in Serum or PlasmaOrdered By: Marcela Cano on 06-22-2022 Cholesterol [Mass/Vol] 162 mg/dL 140-200 [facility] Comment on above: Chol less than 200 m g/dl low riskChol 201-239 mg/dl borderline riskChol 240 mg/dl and greater high risk Cholesterol in LDL Calc [Mas s/Vol]Ordered By: Marcela Cano on 06-22-2022 Cholesterol in LDL [Mass/Vol] 105 mg/dL 0-100 [facility] Comment on above: LDL ATP III CLASSIFI CATIONLDL less than 100 mg/dL OptimalLDL 100-129 mg/dL Near or above optimalLDL 130-159 mg/dL Borderline highLDL 160-189 mg/dL HighLDL greater than 189 mg/dL Very high Cholesterol in VLDL Calc [Ma ss/Vol]Ordered By: Marcela Cano on 06-22-2022 Cholesterol in VLDL [Mass/Vol] 32 mg/dL [facility] Globulin Calc (S) [Mass/Vol] Ordered By: Marcela Cano on 06-22-2022 Globulin (S) [Mass/Vol] 2.5 g/dL [facility] Glucose mean value [Mass/vol ume] in Blood Estimated from glycated hemoglobinOrdered By: Marcela Cano on 06-22-2022 Average glucose Estimated from glycated hemoglobin (Bld) [Mass/Vol] 194 mg/dL [facility] Hemoglobin A1c percentageOrd ered By: Marcela Cano on 06-22-2022 HbA1c (Bld) [Mass fraction] 8.4 % 4.3-5.6 [facility] Comment on above: Increased risk for d iabetes: 5.7 - 6.4diabetes: >6.4glycemic control for adults with diabetes: <7.0 Lactate [Moles/volume] in Se rum or PlasmaOrdered By: Marcela Cano on 06-22-2022 Lactate [Moles/Vol] 1.2 mmol/L 0.5-2.2 [facility] Natriuretic peptide B [Mass/ Vol]Ordered By: Marcela Cano on 06-22-2022 Natriuretic peptide B (Bld) [Mass/Vol] 507.0 pg/mL 5-100 [facility] No Panel InformationOrdered By: Toi Johnson on 06-22-2022 Bedside Glucose Comment Glu2: cleaned meter [facility] Protein [Mass/volume] in Ser um or PlasmaOrdered By: Marcela Cano on 06-22-2022 Protein [Mass/Vol] 5.9 g/dL 6.4-8.9 [facility] Serum or plasma albumin/glob ulin mass ratioOrdered By: Marcela Cano on 06-22-2022 Albumin/Globulin [Mass ratio] 1.4 {ratio} [facility] Serum or plasma high density lipoprotein (HDL) cholesterol measurementOrdered By: Marcela Cano on 06-22-2022 Cholesterol in HDL [Mass/Vol] 25 mg/dL 35-85 [facility] Comment on above: HDL CHOL ATP-III CLA SSIFICATION Cardiovascular RiskHDL > or equal to 60 mg/dL LOWHDL < 40 mg/dL HIGH Serum or plasma total choles terol/high density lipoprotein (HDL) cholesterol mass ratOrdered By: Marcela Cano on 06-22-2022 Cholesterol.total/Chol esterol in HDL [Mass ratio] 6.5 {ratio} <5.0 [facility] TROPONIN, HIGH SENSITIVITYon 06-22-2022 HSTROP 395.9 pg/mL Critically high 4.0-51.[address] [facility] Comment on above: Result Comment: CUT- OFF POINTS HAVE BEEN ESTABLISHED BASED ON THE FOURTH UNIVERSAL DEFINITIONS OF MYOCARDIAL INFARCTION. THE UPPER REFERENCE LIMIT (URL) OF TROPONIN, DEFINED THE 99TH PERCENTILE OF cTnI DISTRIBUTION IN A REFERENCE POPULATION, HAS BEEN CONFIRMED THE DECISION THRESHOLD FOR IN DIAGNOSIS. Performed By: #### U RTPCR #### [facility] [address] [address] [address] Shilpa Beard Triglyceride [Mass/volume] i n Serum or PlasmaOrdered By: Marcela Cano on 06-22-2022 Triglyceride [Mass/Vol] 160 mg/dL 0-149 [facility] Comment on above: TRIG ATP III CLASSIF ICATIONTRIG less than 150 mg/dL NormalTRIG 150-199 mg/dL Borderline highTRIG 200-500 mg/dL High TRIG greater than 500 mg/dL Very highStandard traceable to the Center for Disease Conrtrol and Prevention (CDC) test method. AMYLASEon 06-21-2022 Amylase [Catalytic activity/Vol] 41 U/L Normal 25-[address] [facility] Comment on above: Performed By: #### L IPA, ALLISON #### [facility] [address] [place] [address] Dr. Shilpa Beard CBC AUTO DIFFon 06-21-2022 BASO # 0.1 103/ul Normal 0.0-0.1 [facility] Comment on above: Performed By: #### C BC #### [facility] [address] [place] [address] Dr. Shilpa Beard Basophils/100 WBC (Bld) 0.4 % Normal 0.2-2.0 [facility] Comment on above: Performed By: #### C BC #### [facility] [address] [place] [address] Dr. Shilpa Beard EO # 0.0 103/ul Normal 0.0-0.7 [facility] Comment on above: Performed By: #### C BC #### [facility] [address] [place] [address] Dr. Shilpa Beard Eosinophils/100 WBC (Bld) 0.1 % Critically low 0.9-7.0 [facility] Comment on above: Performed By: #### C BC #### [facility] [address] [place] [address] Dr. Shilpa Beard Erythrocyte distribution width (RBC) [Ratio] 13.4 % Normal 11.0-15.0 [facility] Comment on above: Performed By: #### C BC #### [facility] [address] [place] [address] Dr. Shilpa Beard Hematocrit (Bld) [Volume fraction] 46.1 % Normal 36.0-48.0 [facility] Comment on above: Performed By: #### C BC #### [facility] [address] [place] [address] Dr. Shilpa Beard Hemoglobin (Bld) [Mass/Vol] 15.6 g/dL Normal 12.0-16.0 [facility] Comment on above: Performed By: #### C BC #### [facility] [address] [place] [address] Dr. Shilpa Beard IG # 0.07 10e3/ul Critically high 0.00-0.03 [facility] Comment on above: Performed By: #### C BC #### [facility] [address] [place] [address] Dr. Shilpa Beard IG % 0.4 % Normal 0.0-0.5 [facility] Comment on above: Performed By: #### C BC #### [facility] [address] [place] [address] Dr. Shilpa Beard LYMPH # 0.7 103/ul Critically low 1.2-3.8 [facility] Comment on above: Performed By: #### C BC #### [facility] [address] [place] [address] Dr. Shilpa Beard Lymphocytes/100 WBC (Bld) 4.4 % Critically low 20.5-60.0 [facility] Comment on above: Performed By: #### C BC #### [facility] [address] [place] [address] Dr. Shilpa Beard MANUAL DIFF REQ NO Normal [facility] Comment on above: Performed By: #### C BC #### [facility] [address] [place] [address] Dr. Shilpa Beard MCH (RBC) [Entitic mass] 30.8 pg Normal 26.7-34.[address] [facility] Comment on above: Performed By: #### C BC #### [facility] [address] [place] [address] Dr. Shilpa Beard MCHC (RBC) [Mass/Vol] 33.8 g/dL Normal 29.9-35.[address] [facility] Comment on above: Performed By: #### C BC #### [facility] [address] [address] [address] Shilpa Beard MCV (RBC) [Entitic vol] 90.9 fL Normal 81.0-99.0 [facility] Comment on above: Performed By: #### C BC #### [facility] [address] [address] [address] Shilpa Beard MONO # 0.9 103/ul Critically high 0.3-0.8 [facility] Comment on above: Performed By: #### C BC #### [facility] [address] [address] [address] Shilpa Beard Monocytes/100 WBC (Bld) 5.6 % Normal 1.7-12.0 [facility] Comment on above: Performed By: #### C BC #### [facility] [address] [place] [address] Dr. Shilpa Beard NEUT # 14.5 103/ul Critically high 1.4-6.5 [facility] Comment on above: Performed By: #### C BC #### [facility] [address] [place] [address] Dr. Shilpa Beard Neutrophils/100 WBC (Bld) 89.1 % Critically high 43.0-75.0 [facility] Comment on above: Performed By: #### C BC #### [facility] [address] [place] [address] Dr. Shipla Beard Platelet mean volume (Bld) [Entitic vol] 11.6 fL Normal 9.5-13.5 [facility] Comment on above: Performed By: #### C BC #### [facility] [address] [place] [address] Dr. Shilpa Beard PLT 176 103/ul Normal 150-[address] [facility] Comment on above: Performed By: #### C BC #### [facility] [address] [place] [address] Dr. Shilpa Beard RBC 5.07 106/ul Normal 4.20-5.[address] [facility] Comment on above: Performed By: #### C BC #### [facility] [address] [place] [address] Dr. Shilpa Beard WBC 16.2 103/ul Critically high 4.0-11.0 [facility] Comment on above: Performed By: #### C REYNOLD #### [facility] [address] [address] [address] ABD/PELVIS WO CONon [...] 2022-06-21 21:52 [address] [facility] CULTURE URINEon 06-21-2022 CULTURE URINE Culture Observations : NO GROWTH. Normal [facility] Comment on above: Performed By: #### L ALLISON WELDON #### [facility] [address] [address] [address] Shilpa Beard Covid-19 PCR (CVDTB)on SARS-CoV-2 (COVID-19) RNA COLIN+probe Ql (Unsp spec) Not detected Normal NOT DETECTED [facility] Comment on above: Result Comment: [...] for this test is supported by the [place] of Health and Human Service's declaration that [...] used). Performed By: #### C VDTBH #### [facility] [address] [place] [address] Dr. Shilpa Beard ER URINE PROFILEon 3 Bilirubin Ql (U) Negative Normal NEGATIVE [facility] Comment on above: Performed By: #### U RTPCR #### [facility] [address] [place] [address] Dr. Shilpa Beard Clarity (U) CLEAR Normal CLEAR [facility] Comment on above: Performed By: #### U RTPCR #### [facility] [address] [place] [address] Dr. Shilpa Beard Color (U) LT. YELLOW Normal YELLOW [facility] Comment on above: Performed By: #### U RTPCR #### [facility] [address] [place] [address] Dr. Shilpa Beard ERUAHD A micrscopic examina tion will be performed if indicated. Normal [facility] Comment on above: Performed By: #### U RTPCR #### [facility] [address] [place] [address] Dr. Shilpa Beard Glucose Ql (U) 250 mg/dl Abnormal NEGATIVE [facility] Comment on above: Performed By: #### U RTPCR #### [facility] [address] [place] [address] Dr. Shilpa Beard Hemoglobin Ql (U) TRACE-INTACT Abnormal NEGATIVE [facility] Comment on above: Performed By: #### U RTPCR #### [facility] [address] [place] [address] Dr. Shilpa Beard Ketones Ql (U) Negative Normal NEGATIVE [facility] Comment on above: Performed By: #### U RTPCR #### [facility] [address] [place] [address] Dr. Shilpa Beard LEUKOCYTES Negative Normal NEGATIVE [facility] Comment on above: Performed By: #### U RTPCR #### [facility] [address] [place] [address] Dr. Shilpa Beard Nitrite Ql (U) Negative Normal NEGATIVE [facility] Comment on above: Performed By: #### U RTPCR #### [facility] [address] [place] [address] Dr. Shilpa Beard pH (U) 5.0 [pH] Normal 5-9 [facility] Comment on above: Performed By: #### U RTPCR #### [facility] [address] [place] [address] Dr. Shilpa Beard Protein (U) [Mass/Vol] 100 mg/dL Abnormal NEGAT WILSON/ TRACE [facility] Comment on above: Performed By: #### U RTPCR #### [facility] [address] [place] [address] Dr. Shilpa Beard SPEC GRAVITY 1.025 Normal 1.005-<=1. [address] [facility] Comment on above: Performed By: #### U RTPCR #### [facility] [address] [place] [address] Dr. Shilpa Beard UR MICRO IND INDICATED Normal [facility] Comment on above: Performed By: #### U RTPCR #### [facility] [address] [place] [address] Dr. Shilpa Beard Urobilinogen Qn (U) 0.2 {Jacklyn'U}/dL Normal 0.2 - 1. 0 [facility] Comment on above: Performed By: #### U RTPCR #### [facility] [address] [place] [address] Dr. Shilpa Beard LIPASEon 06-21-2022 Lipase [Catalytic activity/Vol] 80.0 U/L Normal 73.0-393.0 [facility] Comment on above: Performed By: #### L IPA, ALLISON #### [facility] [address] [place] [address] Dr. Shilpa Beard Lipase [Catalytic activity/Vol] 82.0 U/L Normal 73.0-393.0 [facility] Comment on above: Performed By: #### U RTPCR #### [facility] [address] [place] [address] Dr. Shilpa Beard PROF 14(COMP METB)on 023 Albumin [Mass/Vol] 3.3 g/dL Critically low 3.4-5.0 [facility] Comment on above: Performed By: #### U RTPCR #### [facility] [address] [place] [address] Dr. Shilpa Beard Albumin/Globulin [Mass ratio] 0.8 {ratio} Normal [facility] Comment on above: Performed By: #### U RTPCR #### [facility] [address] [place] [address] Dr. Shilpa Beard ALP [Catalytic activity/Vol] 114 U/L Normal 46-116 [facility] Comment on above: Performed By: #### U RTPCR #### [facility] [address] [place] [address] Dr. Shilpa Beard ALT [Catalytic activity/Vol] 18 U/L Normal 14-59 [facility] Comment on above: Performed By: #### U RTPCR #### [facility] [address] [place] [address] Dr. Shilpa Beard Anion gap [Moles/Vol] 18.4 mmol/L Normal [facility] Comment on above: Performed By: #### U RTPCR #### [facility] [address] [place] [address] Dr. Shilpa Beard AST [Catalytic activity/Vol] 22 U/L Normal 15-37 [facility] Comment on above: Performed By: #### U RTPCR #### [facility] [address] [address] [address] Shilpa Beard Bilirubin [Mass/Vol] 0.6 mg/dL Normal 0.2-1.0 [facility] Comment on above: Performed By: #### U RTPCR #### [facility] [address] [address] [address] Shilpa Beard Calcium [Mass/Vol] 8.9 mg/dL Normal 8.5-10.1 [facility] Comment on above: Performed By: #### U RTPCR #### [facility] [address] [address] [address] Shilpa Beard Chloride [Moles/Vol] 100 mmol/L Normal 98-107 [facility] Comment on above: Performed By: #### U RTPCR #### [facility] [address] [place] [address] Dr. Shilpa Beard CO2 [Moles/Vol] 22.2 mmol/L Normal 21.0-32.0 [facility] Comment on above: Performed By: #### U RTPCR #### [facility] [address] [address] [address] Shilpa Beard Creatinine [Mass/Vol] 1.80 mg/dL Critically high 0.55-1.02 [facility] Comment on above: Performed By: #### U RTPCR #### [facility] [address] [place] [address] Dr. Shilpa Beard EGFR-AF SWISS 32 mL/min/1.73m2 Critically low >=[address] [facility] Comment on above: Performed By: #### U RTPCR #### [facility] [address] [address] [address] Shilpa Beard EGFR-NON AF SWISS 27 mL/min/1.73m2 Critically low >=[address] [facility] Comment on above: Performed By: #### U RTPCR #### [facility] [address] [address] [address] Shilpa Beard Globulin (S) [Mass/Vol] 4.0 g/dL Normal [facility] Comment on above: Performed By: #### U RTPCR #### [facility] [address] [address] [address] Shilpa Beard Glucose [Mass/Vol] 277 mg/dL Critically high 74-106 [facility] Comment on above: Performed By: #### U RTPCR #### [facility] [address] [address] [address] Shilpa Beard Potassium [Moles/Vol] 4.6 mmol/L Normal 3.5-5.1 [facility] Comment on above: Performed By: #### U RTPCR #### [facility] [address] [place] [address] Dr. Shilpa Beard Protein [Mass/Vol] 7.3 g/dL Normal 6.4-8.2 [facility] Comment on above: Performed By: #### U RTPCR #### [facility] [address] [place] [address] Dr. Shilpa Beard Sodium [Moles/Vol] 136 mmol/L Normal 136-145 [facility] Comment on above: Performed By: #### U RTPCR #### [facility] [address] [place] [address] Dr. Shilpa Beard Urea nitrogen [Mass/Vol] 35.0 mg/dL Critically high 7.0-18.0 [facility] Comment on above: Performed By: #### U RTPCR #### [facility] [address] [place] [address] Dr. Shilpa Beard Urea nitrogen/Creatinine [Mass ratio] 19.4 mg/mg Normal [facility] Comment on above: Performed By: #### U RTPCR #### [facility] [address] [place] [address] Dr. Shilpa Beard TROPONIN, HIGH SENSITIVITYon 06-21-2022 HSTROP 190.4 pg/mL Critically high 4.0-51.3 [facility] Comment on above: Result Comment: CUT- OFF POINTS HAVE BEEN ESTABLISHED BASED ON THE FOURTH UNIVERSAL DEFINITIONS OF MYOCARDIAL INFARCTION. THE UPPER REFERENCE LIMIT (URL) OF TROPONIN, DEFINED THE 99TH PERCENTILE OF cTnI DISTRIBUTION IN A REFERENCE POPULATION, HAS BEEN CONFIRMED THE DECISION THRESHOLD FOR IN DIAGNOSIS. Performed By: #### H STROPN #### [facility] [address] [place] [address] Dr. Shilpa Beard HSTROP 103.3 pg/mL Critically high 4.0-51.[address] [facility] Comment on above: Result Comment: CUT- OFF POINTS HAVE BEEN ESTABLISHED BASED ON THE FOURTH UNIVERSAL DEFINITIONS OF MYOCARDIAL INFARCTION. THE UPPER REFERENCE LIMIT (URL) OF TROPONIN, DEFINED THE 99TH PERCENTILE OF cTnI DISTRIBUTION IN A REFERENCE POPULATION, HAS BEEN CONFIRMED THE DECISION THRESHOLD FOR IN DIAGNOSIS. Performed By: #### U RTPCR #### [facility] [address] [place] [address] Dr. Shilpa Beard URINE MICROSCOPIC ONLYon AMORPHOUS CRYSTALS FEW Normal The [facility] Comment on above: Performed By: #### U RTPCR #### [facility] [address] [place] [address] Dr. Shilpa Beard BACTERIA SMALL Abnormal NONE SEEN The [facility] Comment on above: Performed By: #### U RTPCR #### [facility] [address] [place] [address] Dr. Shilpa Beard Bacteria identified Cx Nom (U) INDICATED Normal [facility] Comment on above: Performed By: #### U RTPCR #### [facility] [address] [place] [address] Dr. Shilpa Beard CAST SEEN Abnormal NONE SEEN The [facility] Comment on above: Performed By: #### U RTPCR #### [facility] [address] [place] [address] Dr. Shilpa Beard Crystals LM Nom (Urine sed) SEEN Abnormal NONE SEEN The [facility] Comment on above: Performed By: #### U RTPCR #### [facility] [address] [place] [address] Dr. Shilpa Beard Epithelial cells LM Ql (Urine sed) FEW Abnormal NONE SEEN /RARE The [facility] Comment on above: Performed By: #### U RTPCR #### [facility] [address] [place] [address] Dr. Shilpa Beard HYALINE CAST FEW Normal The [facility] Comment on above: Performed By: #### U RTPCR #### [facility] [address] [address] [address] Shilpa Beard MUCOUS NONE SEEN Normal NONE SEEN [facility] Comment on above: Performed By: #### U RTPCR #### [facility] [address] [address] [address] Shilpa Beard RBC 2-5 Abnormal 0-2 [facility] Comment on above: Performed By: #### U RTPCR #### [facility] [address] [place] [address] Dr. Shilpa Beard WBC NONE SEEN Normal NONE SEEN The [facility] Comment on above: Performed By: #### U RTPCR #### [facility] [address] [address] [address] Shilpa Beard XR CHEST 1 Von [...] by: LAURENCE RAJPUT Date: 2022-06-21 17:15 Normal [facility] GLYCOHEMOGLOBIN A1Con 2021 ADA RECOMMENDATION SEE BELOW Normal [facility] Comment on above: Result Comment: ADA RECOMMENDED LIMIT 4.0 - 6.0 ADA THERAPEUTIC TARGET < 7.0 ACTION SUGGESTED > 7.0 Performed By: #### A 1C #### [facility] [address] [place] [address] Dr. Shilpa Beard Glucose [Mass/Vol] 174 mg/dL Normal [facility] Comment on above: Performed By: #### A 1C #### [facility] [address] [place] [address] Dr. Shilpa Beard HbA1c (Bld) [Mass fraction] 7.7 % Critically high 4.5-6.2 [facility] Comment on above: Performed By: #### A 1C #### [facility] [address] [address] [address] Shilpa Beard PROF CHEM 8 (BAS METB)on Anion gap [Moles/Vol] 13.6 mmol/L Normal Th e [facility] Comment on above: Performed By: #### B MP #### [facility] [address] [place] [address] Dr. Shilpa Beard Calcium [Mass/Vol] 9.6 mg/dL Normal 8.5-10.[address] [facility] Comment on above: Performed By: #### B MP #### [facility] [address] [place] [address] Dr. Shilpa Beard Chloride [Moles/Vol] 103 mmol/L Normal 98-107 [facility] Comment on above: Performed By: #### B MP #### [facility] [address] [place] [address] Dr. Shilpa Beard CO2 [Moles/Vol] 26.1 mmol/L Normal 21.0-32.0 [facility] Comment on above: Performed By: #### B MP #### [facility] [address] [place] [address] Dr. Shilpa Beard Creatinine [Mass/Vol] 1.30 mg/dL Critically high 0.55-1.02 [facility] Comment on above: Performed By: #### B MP #### [facility] [address] [place] [address] Dr. Shilpa Beard EGFR-AF SWISS 47 mL/min/1.73m2 Critically low >=[address] [facility] Comment on above: Performed By: #### B MP #### [facility] [address] [place] [address] Dr. Shilpa Beard EGFR-NON AF SWISS 39 mL/min/1.73m2 Critically low >=[address] [facility] Comment on above: Performed By: #### B MP #### [facility] [address] [place] [address] Dr. Shilpa Beard Glucose [Mass/Vol] 219 mg/dL Critically high 74-106 T [facility] Comment on above: Performed By: #### B MP #### [facility] [address] [place] [address] Dr. Shilpa Beard Potassium [Moles/Vol] 4.7 mmol/L Normal 3.5-5.1 [facility] Comment on above: Performed By: #### B MP #### [facility] [address] [place] [address] Dr. Shilpa Beard Sodium [Moles/Vol] 138 mmol/L Normal 136-145 [facility] Comment on above: Performed By: #### B MP #### [facility] [address] [place] [address] Dr. Shilpa Beard Urea nitrogen [Mass/Vol] 37.0 mg/dL Critically high 7.0-18.0 [facility] Comment on above: Performed By: #### B MP #### [facility] [address] [place] [address] Dr. Shilpa Beard Urea nitrogen/Creatinine [Mass ratio] 28.5 mg/mg Normal [facility] Comment on above: Performed By: #### B MP #### [facility] [address] [place] [address] Dr. Shilpa Beard PROF CHEM 8 (BAS METB)on Anion gap [Moles/Vol] 15.2 mmol/L Normal [facility] Comment on above: Performed By: #### L IPA, ALLISON #### [facility] [address] [place] [address] Dr. Shilpa Beard Calcium [Mass/Vol] 8.7 mg/dL Normal 8.5-10.1 [facility] Comment on above: Performed By: #### L IPA, ALLISON #### [facility] [address] [place] [address] Dr. Shilpa Beard Chloride [Moles/Vol] 102 mmol/L Normal 98-107 [facility] Comment on above: Performed By: #### L IPA, ALLISON #### [facility] [address] [place] [address] Dr. Shilpa Beard CO2 [Moles/Vol] 22.8 mmol/L Normal 21.0-32.0 [facility] Comment on above: Performed By: #### L IPA, ALLISON #### [facility] [address] [address] [address] Shilpa Beard Creatinine [Mass/Vol] 1.32 mg/dL Critically high 0.55-1.02 [facility] Comment on above: Performed By: #### L IPA, ALLISON #### [facility] [address] [address] [address] Shilpa Beard EGFR-AF SWISS 46 mL/min/1.73m2 Critically low >=60 [facility] Comment on above: Performed By: #### L IPA, ALLISON #### [facility] [address] [place] [address] Dr. Shilpa Beard EGFR-NON AF SWISS 38 mL/min/1.73m2 Critically low >=60 [facility] Comment on above: Performed By: #### L IPA, ALLISON #### [facility] [address] [place] [address] Dr. Shilpa Beard Glucose [Mass/Vol] 168 mg/dL Critically high 74-106 T [facility] Comment on above: Performed By: #### L IPA, ALLISON #### [facility] [address] [place] [address] Dr. Shilpa Beard Potassium [Moles/Vol] 5.0 mmol/L Normal 3.5-5.1 [facility] Comment on above: Performed By: #### L IPA, ALLISON #### [facility] [address] [place] [address] Dr. Shilpa Beard Sodium [Moles/Vol] 135 mmol/L Critically low 136-145 Th [facility] Comment on above: Performed By: #### L IPA, ALLISON #### [facility] [address] [place] [address] Dr. Shlipa Beard Urea nitrogen [Mass/Vol] 38.0 mg/dL Critically high 7.0-18.0 [facility] Comment on above: Performed By: #### L IPA, ALLISON #### [facility] [address] [place] [address] Dr. Shilpa Beard Urea nitrogen/Creatinine [Mass ratio] 28.8 mg/mg Normal [facility] Comment on above: Performed By: #### L IPA, ALLISON #### [facility] [address] [place] [address] Dr. Shilpa Beard CBC AUTO DIFFon 06-30-2021 BASO # 0.1 103/ul Normal 0.0-0.[address] [facility] Comment on above: Performed By: #### L IPA, ALLISON #### [facility] [address] [place] [address] Dr. Shilpa Beard Basophils/100 WBC (Bld) 1.0 % Normal 0.2-2.0 [facility] Comment on above: Performed By: #### L IPA, ALLISON #### [facility] [address] [place] [address] Dr. Shilpa Beard EO # 0.2 103/ul Normal 0.0-0.[address] [facility] Comment on above: Performed By: #### L IPA, ALLISON #### [facility] [address] [place] [address] Dr. Shilpa Beard Eosinophils/100 WBC (Bld) 1.8 % Normal 0.9-7.0 [facility] Comment on above: Performed By: #### L IPA, ALLISON #### [facility] [address] [place] [address] Dr. Shilpa Beard Erythrocyte distribution width (RBC) [Ratio] 13.3 % Normal 11.0-15.[address] [facility] Comment on above: Performed By: #### L IPA, ALLISON #### [facility] [address] [place] [address] Dr. Shilpa Beard Hematocrit (Bld) [Volume fraction] 46.5 % Normal 36.0-48.0 [facility] Comment on above: Performed By: #### L IPA, ALLISON #### [facility] [address] [place] [address] Dr. Shilpa Beadr Hemoglobin (Bld) [Mass/Vol] 15.1 g/dL Normal 12.0-16.[address] [facility] Comment on above: Performed By: #### L IPA, ALLISON #### [facility] [address] [address] [address] Shilpa Beard IG # 0.06 10e3/ul Critically high 0.00-0.03 [facility] Comment on above: Performed By: #### L IPA, ALLISON #### [facility] [address] [address] [address] Shilpa Beard IG % 0.7 % Critically high 0.0-0.5 [facility] Comment on above: Performed By: #### L IPA, ALLISON #### [facility] [address] [place] [address] Dr. Shilpa Beard LYMPH # 2.9 103/ul Normal 1.2-3.8 [facility] Comment on above: Performed By: #### L IPA, ALLISON #### [facility] [address] [place] [address] Dr. Shilpa Beard Lymphocytes/100 WBC (Bld) 35.4 % Normal 20.5-60.0 [facility] Comment on above: Performed By: #### L IPA, ALLISON #### [facility] [address] [place] [address] Dr. Shilpa Beard MANUAL DIFF REQ NO Normal [facility] Comment on above: Performed By: #### L IPA, ALLISON #### [facility] [address] [place] [address] Dr. Shilpa Beard MCH (RBC) [Entitic mass] 29.8 pg Normal 26.7-34.0 [facility] Comment on above: Performed By: #### L IPA, ALLISON #### [facility] [address] [address] [address] Shilpa Beard MCHC (RBC) [Mass/Vol] 32.5 g/dL Normal 29.9-35.[address] [facility] Comment on above: Performed By: #### L IPA, ALLISON #### [facility] [address] [place] [address] Dr. Shilpa Beard MCV (RBC) [Entitic vol] 91.9 fL Normal 81.0-99.0 [facility] Comment on above: Performed By: #### L IPA, ALLISON #### [facility] [address] [address] [address] Shilpa Beard MONO # 0.8 103/ul Normal 0.3-0.8 [facility] Comment on above: Performed By: #### L IPA, ALLISON #### [facility] [address] [address] [address] Shilpa Beard Monocytes/100 WBC (Bld) 9.9 % Normal 1.7-12.0 [facility] Comment on above: Performed By: #### L IPA, ALLISON #### [facility] [address] [address] [address] Shilpa Beard NEUT # 4.2 103/ul Normal 1.4-6.5 [facility] Comment on above: Performed By: #### L IPA, ALLISON #### [facility] [address] [place] [address] Dr. Shilpa Beard Neutrophils/100 WBC (Bld) 51.2 % Normal 43.0-75.0 [facility] Comment on above: Performed By: #### L IPA, ALLISON #### [facility] [address] [place] [address] Dr. Shilpa Beard Platelet mean volume (Bld) [Entitic vol] 11.1 fL Normal 9.5-13.5 [facility] Comment on above: Performed By: #### L IPA, ALLISON #### [facility] [address] [place] [address] Dr. Shilpa Beard PLT 263 103/ul Normal 150-[address] [facility] Comment on above: Performed By: #### L IPA, ALLISON #### [facility] [address] [place] [address] Dr. Shilpa Beard RBC 5.06 106/ul Normal 4.20-5.[address] [facility] Comment on above: Performed By: #### L IPA, ALLISON #### [facility] [address] [place] [address] Dr. Shilpa Beard WBC 8.1 103/ul Normal 4.0-11.0 [facility] Comment on above: Performed By: #### L IPA, ALLISON #### [facility] [address] [address] [address] Shilpa Beard GLYCOHEMOGLOBIN A1Con 2021 ADA RECOMMENDATION ADA THERAPEUTIC TARG ET 6.0 - 7.0 ACTION SUGGESTED > 7.0 Normal [facility] Comment on above: Performed By: #### U RTPCR #### [facility] [address] [address] [address] Shilpa Beard Glucose [Mass/Vol] 186 mg/dL Normal [facility] Comment on above: Performed By: #### U RTPCR #### [facility] [address] [address] [address] Shilpa Beard HbA1c (Bld) [Mass fraction] 8.1 % Critically high <=6.0 [facility] Comment on above: Performed By: #### U RTPCR #### [facility] [address] [place] [address] Dr. Shilpa Beard LIPID PROFILEon 06-30-2021 CHOL-HDL RATIO NORM SEE BELOW Normal [facility] Comment on above: Result Comment: 3.3 - 4.4 LOW RISK 4.4 - 7.1 AVERAGE RISK 7.1 - 11.0 MODERATE RISK >11.0 HIGH RISK Performed By: #### L IPID, URIC, TSH, CMP #### [facility] [address] [place] [address] Dr. Shilpa Beard Cholesterol [Mass/Vol] 223 mg/dL Critically high <=[address] [facility] Comment on above: Performed By: #### L IPID, URIC, TSH, CMP #### [facility] [address] [place] [address] Dr. Shilpa Beard Cholesterol in HDL [Mass/Vol] 31 mg/dL Critically low 40-[address] [facility] Comment on above: Performed By: #### L IPID, URIC, TSH, CMP #### [facility] [address] [address] [address] Shilpa Beard Cholesterol in LDL [Mass/Vol] 143.6 mg/dL Normal [facility] Comment on above: Performed By: #### L IPID, URIC, TSH, CMP #### [facility] [address] [address] [address] Shilpa Beard Cholesterol.total/Chol esterol in HDL [Mass ratio] 7.2 {ratio} Normal [facility] Comment on above: Performed By: #### L IPID, URIC, TSH, CMP #### [facility] [address] [address] [address] Shilpa Beard HDL NORMAL > or = 60 mg/dl - LO W CARDIOVASCULAR RISK <40 mg/dl - HIGH CARDIOVASCULAR RISK Normal [facility] Comment on above: Performed By: #### L IPID, URIC, TSH, CMP #### [facility] [address] [place] [address] Dr. Shilpa Beard LDL CALC NORMAL SEE BELOW Normal [facility] Comment on above: Result Comment: <100 mg/dl OPTIMAL 100 - 129 mg/dl NEAR OR ABOVE OPTIMAL 130 - 159 mg/dl BORDERLINE HIGH 160 - 189 mg/dl HIGH >190 mg/dl VERY HIGH Performed By: #### L IPID, URIC, TSH, CMP #### [facility] [address] [place] [address] Dr. Shilpa Beard Triglyceride [Mass/Vol] 242 mg/dL Critically high <=150 [facility] Comment on above: Performed By: #### L IPID, URIC, TSH, CMP #### [facility] [address] [place] [address] Dr. Shilpa Beard VLDL CALC 48.4 mg/dL Normal [facility] Comment on above: Performed By: #### L IPID, URIC, TSH, CMP #### [facility] [address] [place] [address] Dr. Shilpa Beard PROF 14(COMP METB)on 022 Albumin [Mass/Vol] 3.2 g/dL Critically low 3.4-5.[address] [facility] Comment on above: Performed By: #### U RTPCR #### [facility] [address] [place] [address] Dr. Shilpa Beard Albumin/Globulin [Mass ratio] 0.7 {ratio} Normal [facility] Comment on above: Performed By: #### U RTPCR #### [facility] [address] [place] [address] Dr. Shilpa Beard ALP [Catalytic activity/Vol] 99 U/L Normal 46-116 [facility] Comment on above: Performed By: #### U RTPCR #### [facility] [address] [place] [address] Dr. Shilpa Beard ALT [Catalytic activity/Vol] 42 U/L Normal 14-59 [facility] Comment on above: Performed By: #### U RTPCR #### [facility] [address] [place] [address] Dr. Shilpa Beard Anion gap [Moles/Vol] 13.1 mmol/L Normal Th e [facility] Comment on above: Performed By: #### U RTPCR #### [facility] [address] [place] [address] Dr. Shilpa Beard AST [Catalytic activity/Vol] 53 U/L Critically high 15-37 [facility] Comment on above: Performed By: #### U RTPCR #### [facility] [address] [place] [address] Dr. Shilpa Beard Bilirubin [Mass/Vol] 0.5 mg/dL Normal 0.2-1.[address] [facility] Comment on above: Performed By: #### U RTPCR #### [facility] [address] [place] [address] Dr. Shilpa Beard Calcium [Mass/Vol] 8.8 mg/dL Normal 8.5-10.1 [facility] Comment on above: Performed By: #### U RTPCR #### [facility] [address] [place] [address] Dr. Shilpa Beard Chloride [Moles/Vol] 100 mmol/L Normal 98-[address] [facility] Comment on above: Performed By: #### U RTPCR #### [facility] [address] [place] [address] Dr. Shilpa Beard CO2 [Moles/Vol] 26.7 mmol/L Normal 22.0-30.0 [facility] Comment on above: Performed By: #### U RTPCR #### [facility] [address] [address] [address] Shilpa Beard Creatinine [Mass/Vol] 1.24 mg/dL Critically high 0.52-1.04 [facility] Comment on above: Performed By: #### U RTPCR #### [facility] [address] [address] [address] Shilpa Beard EGFR-AF SWISS 50 mL/min/1.73m2 Critically low >=60 [facility] Comment on above: Performed By: #### U RTPCR #### [facility] [address] [address] [address] Shilpa Beard EGFR-NON AF SWISS 41 mL/min/1.73m2 Critically low >=60 [facility] Comment on above: Performed By: #### U RTPCR #### [facility] [address] [address] [address] Shilpa Beard Globulin (S) [Mass/Vol] 4.5 g/dL Normal [facility] Comment on above: Performed By: #### U RTPCR #### [facility] [address] [address] [address] Shilpa Beard Glucose [Mass/Vol] 193 mg/dL Critically high 74-106 T [facility] Comment on above: Performed By: #### U RTPCR #### [facility] [address] [address] [address] Shilpa Beard Potassium [Moles/Vol] 4.8 mmol/L Normal 3.4-5.0 [facility] Comment on above: Performed By: #### U RTPCR #### [facility] [address] [address] [address] Shilpa Beard Protein [Mass/Vol] 7.7 g/dL Normal 6.1-8.2 [facility] Comment on above: Performed By: #### U RTPCR #### [facility] [address] [address] [address] Shilpa Beard Sodium [Moles/Vol] 135 mmol/L Critically low 137-145 [facility] Comment on above: Performed By: #### U RTPCR #### [facility] [address] [place] [address] Dr. Shilpa Beard Urea nitrogen [Mass/Vol] 30.0 mg/dL Critically high 7.0-18.[address] [facility] Comment on above: Performed By: #### U RTPCR #### [facility] [address] [place] [address] Dr. Shilpa Beard Urea nitrogen/Creatinine [Mass ratio] 24.2 mg/mg Normal [facility] Comment on above: Performed By: #### U RTPCR #### [facility] [address] [place] [address] Dr. Shilpa Beard TSHon 06-30-2021 TSH 2.982 uIU/mL Normal 0.470-4.[address] [facility] Comment on above: Performed By: #### U RTPCR #### [facility] [address] [place] [address] Dr. Shilpa Beard TSH RANGE SEE BELOW Normal The [facility] Comment on above: Result Comment: <0.3 4 UIU/ml HYPERTHYROID 0.34-5.60 UIU/ml EUTHYROID >5.60 UIU/ml HYPOTHYROID Performed By: #### U RTPCR #### [facility] [address] [place] [address] Dr. Shilpa Beard URIC ACID SERUMon 06-30-2021 Urate [Mass/Vol] 7.9 mg/dL Critically high 2.5-6.[address] [facility] Comment on above: Performed By: #### L IPID, URIC, TSH, CMP #### [facility] [address] [place] [address] Dr. Shilpa Beard URINE T PROTEIN CREAT RATIOo n 06-30-2021 Protein (U) [Mass/Vol] 50.5 mg/dL Critically high <=12.[address] [facility] Comment on above: Performed By: #### U RTPCR #### [facility] [address] [place] [address] Dr. Shilpa Beard UR PROT CREAT RAT 0.22 Normal [address] [facility] Comment on above: Performed By: #### U RTPCR #### [facility] [address] [address] [address] Shilpa Beard URINE CREAT 230.96 mg/dL Normal 20.00-300. [address] [facility] Comment on above: Performed By: #### U RTPCR #### [facility] [address] [address] [address] Shilpa Beard CNPTOUTREACHon 04-15-2020 CNPTOUTREA Patient Outreach ([place] OCC3) -- MOHAN ESPINOZA ([id number]) 1935 F Date Time Provider Department 04/15/20 [...] Fully Assessed Order(s):SARS-COVID VACCINE 1ST DOSE APPT [[id number]] Order #: [id number] FUTURE Prescriptions as of 04/15/2020 Sig: CLOPIDOGREL [...] (HCC) [C91.41]11/04/2015 Letter Text Encounter Status:Closed by HAKEEM VELA on 04/18/20 Normal [facility] PROGRESSon 09-18-2019 PROGRESS HNO ID: [id number] Author: Saeid Szymanski) Thad Service: ? Author Type: Physician Type: Progress Notes Filed: 09/18/2019 4:23 PM Note Text: PATIENT NAME: Mohan Epsinoza [facility] NO.: [id number] ATTENDING PHYSICIAN: Saeid Oneil MD DATE OF SERVICE: September 18, 2019 Dear IRLANDA Islas ROMARIO here is an update on a [...] - Gout - Heart attack (HCC) 04/06/2018 [facility] - Hematuria - History of [...] 09/08/2018 2.53 1.00 - 4.00 k/uL Final [place]% Date Value Ref Range Status 09/08/2018 13.5 % Final Abs [place] Date Value Ref Range Status 09/08/2018 0.78 [...] do not hesitate to contact me at [phone]. Saeid Oneil MD Hematology/Medical Oncology [facility] CC: Irlanda Baker MD [facility] BASIC METABOLIC PANELon 03-23 Calcium [Mass/Vol] 9.1 mg/dL Normal 8.6-10.3 [facility] Comment on above: Order Comment: No: D o not add to previous draw Performed By: #### 0 0071, 71021, 43986, 15850, 34564, 16750 #### [facility] [address] [place] [address], [facility] Chloride [Moles/Vol] 113 mmol/L High 98-107 [facility] Comment on above: Order Comment: No: D o not add to previous draw Performed By: #### 0 0071, 82529, 41061, 16841, 37547, 88187 #### [facility] [address] [place] [address], [facility] CO2 [Moles/Vol] 26 mmol/L Normal 21-31 [facility] Comment on above: Order Comment: No: D o not add to previous draw Performed By: #### 0 0071, 67276, 73997, 25280, 87493, 36608 #### [facility] [address] [place] [address], [facility] Creatinine [Mass/Vol] 0.95 mg/dL Normal 0.60-1.20 [facility] Comment on above: Order Comment: No: D o not add to previous draw Performed By: #### 0 0071, 06314, 46085, 78893, 78305, 50338 #### [facility] [address] [place] [address], [place] GFR/1.73 sq M predicted among blacks MDRD (S/P/Bld) [Vol rate/Area] mL/min/{1.73_m2} Normal >60 [facility] Comment on above: Order Comment: No: D o not add to previous draw Result Comment: Calc ulation may not be valid for patients over 70 years Performed By: #### 0 0071, 21188, 83758, 88190, 42163, 80791 #### [facility] [address] [place] [address], [facility] GFR/1.73 sq M predicted among non-blacks MDRD (S/P/Bld) [Vol rate/Area] 56 ml/min/1.73sq m Abnormal >60 [facility] Comment on above: Order Comment: No: D o not add to previous draw Result Comment: Calc ulation may not be valid for patients over 70 years Performed By: #### 0 0071, 59302, 38879, 71359, 63472, 42245 #### [facility] [address] [place] [address], [facility] Glucose [Mass/Vol] 169 mg/dL High 70-100 [facility] Comment on above: Order Comment: No: D o not add to previous draw Performed By: #### 0 0071, 00043, 96992, 32422, 54559, 34863 #### [facility] [address] [place] [address], [facility] Potassium [Moles/Vol] 4.5 mmol/L Normal 3.5-5.1 [facility] Comment on above: Order Comment: No: D o not add to previous draw Performed By: #### 0 0071, 47084, 20425, 31291, 35623, 31169 #### [facility] [address] [place] [address], [facility] Sodium [Moles/Vol] 147 mmol/L High 136-145 [facility] Comment on above: Order Comment: No: D o not add to previous draw Performed By: #### 0 0071, 78903, 24119, 05655, 28703, 59288 #### [facility] [address] [place] [address], [facility] Urea nitrogen [Mass/Vol] 18 mg/dL Normal 7-25 [facility] Comment on above: Order Comment: No: D o not add to previous draw Performed By: #### 0 0071, 21667, 65308, 50675, 24762, 95573 #### [facility] [address] CBC W/DIFFon 04-10-2018 ABS BASOPHILS 0.1 10*3/uL Normal 0.0-0.2 [facility] Comment on above: Order Comment: No: D o not add to previous draw Performed By: #### 0 0071, 03032, 98540, 52633, 24406, 34106 #### [facility] [address] ABS IMM GRANS 0.1 10*3/uL Normal 0.0-0.2 [facility] Comment on above: Order Comment: No: D o not add to previous draw Performed By: #### 0 0071, 77195, 38665, 16982, 85715, 52755 #### [facility] [address] ABS NEUTROPHILS 2.2 10*3/uL Normal 1.6-7.6 [facility] Comment on above: Order Comment: No: D o not add to previous draw Performed By: #### 0 0071, 49894, 98400, 36273, 55377, 69569 #### [facility] [address] [place] [address], [facility] Basophils/100 WBC (Bld) 1.0 % Normal 0.0-1.0 [facility] Comment on above: Order Comment: No: D o not add to previous draw Performed By: #### 0 0071, 98802, 12835, 88483, 48021, 54883 #### [facility] [address] [place] [address], [facility] Eosinophils (Bld) [#/Vol] 0.0 10*3/uL Normal 0.0-0.5 [facility] Comment on above: Order Comment: No: D o not add to previous draw Performed By: #### 0 0071, 40921, 24647, 15777, 87740, 55770 #### [facility] [address] [place] [address], [facility] Eosinophils/100 WBC (Bld) 0.0 % Normal 0.0-6.0 [facility] Comment on above: Order Comment: No: D o not add to previous draw Performed By: #### 0 0071, 23224, 44322, 00303, 18329, 16995 #### [facility] [address] Erythrocyte distribution width (RBC) [Ratio] 12.9 % Normal 11.5-15.0 [facility] Comment on above: Order Comment: No: D o not add to previous draw Performed By: #### 0 0071, 72471, 09764, 70586, 98268, 74660 #### [facility] [address] [facility] [address] Hematocrit (Bld) [Volume fraction] 35.3 % Low 36.0-45.0 [facility] Comment on above: Order Comment: No: D o not add to previous draw Performed By: #### 0 0071, 67401, 28945, 87013, 53375, 96762 #### [facility] [address] [facility] [address] Hemoglobin (Bld) [Mass/Vol] 11.7 g/dL Low 12.0-15.0 [facility] Comment on above: Order Comment: No: D o not add to previous draw Performed By: #### 0 0071, 99716, 24119, 87792, 70102, 85329 #### [facility] [address] [facility] IMMATURE GRANS 1.0 % Normal 0.0-1.0 [facility] Comment on above: Order Comment: No: D o not add to previous draw Performed By: #### 0 0071, 27611, 18435, 16779, 66495, 35583 #### [facility] [address] [place] [address], [facility] Lymphocytes (Bld) [#/Vol] 1.9 10*3/uL Normal 1.2-4.0 [facility] Comment on above: Order Comment: No: D o not add to previous draw Performed By: #### 0 0071, 25540, 63995, 79727, 99104, 49953 #### [facility] [address] [facility] [address], [facility] Lymphocytes/100 WBC (Bld) 39.0 % Normal 20.0-45.0 [facility] Comment on above: Order Comment: No: D o not add to previous draw Performed By: #### 0 0071, 37727, 21945, 46355, 88031, 56613 #### [facility] [address] [place] [address], [facility] MCH (RBC) [Entitic mass] 29.9 pg Normal 27.0-33.0 [facility] Comment on above: Order Comment: No: D o not add to previous draw Performed By: #### 0 0071, 53739, 67584, 56300, 72305, 08644 #### [facility] [address] [facility] [place] [address], [facility] MCHC (RBC) [Mass/Vol] 33.1 g/dL Normal 32.0-35.0 [facility] Comment on above: Order Comment: No: D o not add to previous draw Performed By: #### 0 0071, 68720, 45503, 07830, 42206, 91873 #### [facility] [address] [facility] [place] [address], [facility] MCV (RBC) [Entitic vol] 90.3 fL Normal 82.0-98.0 [facility] Comment on above: Order Comment: No: D o not add to previous draw Performed By: #### 0 0071, 46956, 92870, 65213, 44299, 01983 #### [facility] [address] [id number], [facility] Monocytes (Bld) [#/Vol] 0.7 10*3/uL Normal 0.1-1.0 [facility] Comment on above: Order Comment: No: D o not add to previous draw Performed By: #### 0 0071, 97255, 07394, 80534, 71084, 71879 #### [facility] [address] [place] [address], [facility] MONOS 14.8 % High 5.0-12.0 [facility] Comment on above: Order Comment: No: D o not add to previous draw Performed By: #### 0 0071, 96243, 87396, 85286, 05375, 32337 #### [facility] [address] [place] [address], [facility] Neutrophils/100 WBC (Bld) 44.2 % Normal 40.0-72.0 [facility] Comment on above: Order Comment: No: D o not add to previous draw Performed By: #### 0 0071, 47491, 88644, 50592, 61338, 39744 #### [facility] [address] [place] [address], [facility] Nucleated RBC/100 WBC (Bld) [Ratio] 0 % Normal 0-0 [facility] Comment on above: Order Comment: No: D o not add to previous draw Performed By: #### 0 0071, 25202, 39657, 72609, 02904, 04847 #### [facility] [address] [facility] [place] [address], [facility] PLAT CNT 178 10*3/uL Normal 150-400 [facility] Comment on above: Order Comment: No: D o not add to previous draw Performed By: #### 0 0071, 01818, 94731, 33376, 04170, 66474 #### [facility] [address] [facility] [place] [address], [facility] RBC (Bld) [#/Vol] 3.91 10*6/uL Normal 3.80-5.00 [facility] Comment on above: Order Comment: No: D o not add to previous draw Performed By: #### 0 0071, 41327, 54581, 28506, 41436, 71710 #### [facility] [address] [facility] [address], [facility] WBC (Bld) [#/Vol] 4.92 10*3/uL Normal 4.00-10.60 [facility] Comment on above: Order Comment: No: D o not add to previous draw Performed By: #### 0 0071, 74714, 36365, 90238, 02507, 62695 #### [facility] [address] [facility] [address] POC GLUCOSE LABon 04-10-2018 Glucose [Mass/Vol] 245 mg/dL High 70-100 [facility] Comment on above: Performed By: #### 0 0071, 05248, 48541, 83965, 65054, 28206 #### [facility] [address] [facility]. [address] Glucose [Mass/Vol] 220 mg/dL High 70-100 [facility] Comment on above: Performed By: #### 0 0071, 54166, 46865, 00277, 17312, 88434 #### [facility] [address] [facility]. [address] PROTHROMBIN TIMEon 9 INR Coag (PPP) [Relative time] 1.84 {INR} High 0.91-1.16 [facility] Comment on above: Result Comment: ACCC [...] CHEST 1995;108:231S-246S. Performed By: #### 0 0071, 96180, 11164, 66675, 82572, 00743 #### [facility] [address] PT Coag (PPP) [Time] 21.3 s High 12.3-14.8 [facility] Comment on above: Result Comment: ALL RESULTS MUST BE INTERPRETED WITH RESPECT TO BLOOD DRAWING ARTIFACT OR DILUTION ERROR OF ANTICOAGULANT AT THE TIME OF SAMPLING. Performed By: #### 0 0071, 44191, 04785, 68207, 71501, 36582 #### [facility] [address] [facility] [address] BASIC METABOLIC PANELon 03-22 Calcium [Mass/Vol] 8.5 mg/dL Low 8.6-10.3 [facility] Comment on above: Order Comment: No: D o not add to previous draw Performed By: #### 0 0071, 43501, 81717, 92266, 49528, 80840 #### [facility] [address] [place] [address], [facility] Chloride [Moles/Vol] 104 mmol/L Normal 98-107 [facility] Comment on above: Order Comment: No: D o not add to previous draw Performed By: #### 0 0071, 85689, 25389, 55253, 84755, 52421 #### [facility] [address] [facility] [place] [address], [facility] CO2 [Moles/Vol] 24 mmol/L Normal 21-31 [facility] Comment on above: Order Comment: No: D o not add to previous draw Performed By: #### 0 0071, 19138, 45285, 66111, 80286, 10204 #### [facility] [address] [place] [address], [place] Creatinine [Mass/Vol] 0.90 mg/dL Normal 0.60-1.20 [facility] Comment on above: Order Comment: No: D o not add to previous draw Performed By: #### 0 0071, 71149, 23786, 09357, 93843, 67869 #### [facility] [address] [place] [address], [place] GFR/1.73 sq M predicted among blacks MDRD (S/P/Bld) [Vol rate/Area] mL/min/{1.73_m2} Normal >60 [facility] Comment on above: Order Comment: No: D o not add to previous draw Result Comment: Calc ulation may not be valid for patients over 70 years Performed By: #### 0 0071, 85057, 46313, 65135, 92291, 31186 #### [facility] [address] [place] [address], [place] GFR/1.73 sq M predicted among non-blacks MDRD (S/P/Bld) [Vol rate/Area] mL/min/{1.73_m2} Normal >60 [facility] Comment on above: Order Comment: No: D o not add to previous draw Result Comment: Calc ulation may not be valid for patients over 70 years Performed By: #### 0 0071, 83024, 48065, 75382, 72477, 49692 #### [facility] [address] [place] [address], [place] Glucose [Mass/Vol] 173 mg/dL High 70-100 [facility] Comment on above: Order Comment: No: D o not add to previous draw Performed By: #### 0 0071, 77731, 01327, 50826, 46631, 34394 #### [facility] [address] [place] [address], [place] Potassium [Moles/Vol] 4.1 mmol/L Normal 3.5-5.1 [facility] Comment on above: Order Comment: No: D o not add to previous draw Performed By: #### 0 0071, 02018, 92209, 46129, 67805, 19712 #### [facility] [address] [place] [address], [facility] Sodium [Moles/Vol] 136 mmol/L Normal 136-145 [facility] Comment on above: Order Comment: No: D o not add to previous draw Performed By: #### 0 0071, 54151, 51304, 26411, 71156, 05082 #### [facility] [address] [place] [address], [facility] Urea nitrogen [Mass/Vol] 21 mg/dL Normal 7-25 [facility] Comment on above: Order Comment: No: D o not add to previous draw Performed By: #### 0 0071, 53275, 91093, 10546, 22765, 71007 #### [facility] [address] [place] [address], [facility] CBC COMPLETE BLOOD COUNTon 0 - Erythrocyte distribution width (RBC) [Ratio] 12.9 % Normal 11.5-15.0 [facility] Comment on above: Order Comment: No: D o not add to previous draw Performed By: #### 0 0071, 89344, 48400, 83153, 80026, 85250 #### [facility] [address] [place] [address], [facility] Hematocrit (Bld) [Volume fraction] 35.1 % Low 36.0-45.0 [facility] Comment on above: Order Comment: No: D o not add to previous draw Performed By: #### 0 0071, 35510, 11059, 27520, 64344, 29936 #### [facility] [address] [place] [address], [place] Hemoglobin (Bld) [Mass/Vol] 11.4 g/dL Low 12.0-15.0 [facility] Comment on above: Order Comment: No: D o not add to previous draw Performed By: #### 0 0071, 06532, 65962, 63849, 86331, 53801 #### [facility] [address] [facility]. [address] MCH (RBC) [Entitic mass] 29.8 pg Normal 27.0-33.0 [facility] Comment on above: Order Comment: No: D o not add to previous draw Performed By: #### 0 0071, 21408, 98344, 56874, 11424, 30717 #### [facility] [address] MCHC (RBC) [Mass/Vol] 32.5 g/dL Normal 32.0-35.0 [facility] Comment on above: Order Comment: No: D o not add to previous draw Performed By: #### 0 0071, 11132, 38303, 22533, 34539, 23791 #### [facility] [address] MCV (RBC) [Entitic vol] 91.9 fL Normal 82.0-98.0 [facility] Comment on above: Order Comment: No: D o not add to previous draw Performed By: #### 0 0071, 30473, 74292, 01722, 72079, 67304 #### [facility] [address] [facility] [place] [address], [facility] Nucleated RBC/100 WBC (Bld) [Ratio] 0 % Normal 0-0 [facility] Comment on above: Order Comment: No: D o not add to previous draw Performed By: #### 0 0071, 64901, 94536, 13387, 33074, 10877 #### [facility] [address] [place] [address], [facility] PLAT CNT 171 10*3/uL Normal 150-400 [facility] Comment on above: Order Comment: No: D o not add to previous draw Performed By: #### 0 0071, 68271, 37705, 05754, 13819, 78490 #### [facility] [address] [facility] [address], [facility] RBC (Bld) [#/Vol] 3.82 10*6/uL Normal 3.80-5.00 [facility] Comment on above: Order Comment: No: D o not add to previous draw Performed By: #### 0 0071, 62609, 56325, 96607, 29112, 77898 #### [facility] [address] [facility] [place] [address], [facility] WBC (Bld) [#/Vol] 5.35 10*3/uL Normal 4.00-10.60 [facility] Comment on above: Order Comment: No: D o not add to previous draw Performed By: #### 0 0071, 86316, 64566, 40728, 05885, 05517 #### [facility] [address] Cardiovascular Lab Reporton 04-09-2018 Cardiovascular Lab Report [facility] Patient Name: Mohan Espinoza [facility] MR #: [id number] Physician: Jane Rodriguez Department of [facility] Medicine Service Date: 04/08/2018 Division of Birthdate: 1935 Cardiology Room #: 3CD 774404 Adult Cardiovascular Services [place] [address] Cardiovascular Laboratory Report CARDIAC CATHETERIZATION REPORT INDICATION: The patient is an 82-year-old woman with coronary artery disease status post bypass surgery in the past. She is admitted with a urinary tract infection and zte-ET-ecoyxfq elevation myocardial infarction. She was referred for [...] informed consent. She was brought to laboratory clerk in a fasting state. The right groin area was prepped and draped in usual fashion. Using micropuncture technique, the right common femoral artery was accessed. The inner cannula was advanced and the right femoral angiography was performed followed by upsizing to a 6-Nigerian x 11 cm sheath. Bilateral selective coronary angiography was then performed using 6-Nigerian JL4 and JR4 diagnostic catheters. A 6-Nigerian AR2 diagnostic catheter was used to selectively engage the saphenous venous graft to the obtuse marginal branch and right coronary artery and the radial graft to the diagonal branch. Angiography was performed. Catheter was removed. A 6-Nigerian FRANCES diagnostic catheter was used to selectively engage the left subclavian artery and then selectively engage. The left internal mammary artery angiography was performed. Catheter was removed. Heparin was administered intravenously and therapeutic ACT confirmed during the procedure. A 6-Nigerian JR4 guiding catheter was advanced and used [...] was then performed using a [place] [employer] [place] 2.5 x 8 mm balloon inflated at [...] 32 mm drug-eluting stent deployed in the vxpoigrg-zi-sot RCA at 11 atmospheres. Following that, [employer] [place] 2.5 x 8 mm noncompliant balloon was advanced into the distal stent and used to perform postdilatation at 16 atmospheres followed by postdilatation using [employer] [place] 3.0 x 8 mm balloon inflated at 18 atmospheres in the distal stent of the mid segment followed by additional postdilatation using NC [employer] [place] 3.0 x 20 mm noncompliant balloon inflated at 18 atmospheres in the eozwsrpu-fp-mrl segment stent. Intracoronary nitroglycerin 100 mcg was administered followed by final angiography, which showed excellent result with reduction of the stenosis to 0%. No evidence of dissection or perforation. The guiding catheter was removed. Procedure was concluded. The right femoral arteriotomy was managed with a 6-Nigerian Angio-Seal device with good hemostasis. She tolerated [...] throughout its course reaching 99% in the ebuzcdlq-jc-oox segment. Another lesion was 90% in the oll-ok-cjirwc segment and then this was followed by [...] graft to the PDA). 3. A 99% pvgrlnjv-rj-yfx, 90% mid, and 99% fmz-ba-qjkwrk stenosis in the RCA, all reduced to [...] Randolph M.D. Date Trans: 04/09/2018 06:33 Luna/alli [id number] cc: Romario Baker M.D. [address] [place] [address] Robert Tompkins M.D. [address] [place] [address] Normal [facility] MAGNESIUM BLOODon 04-09-2018 Magnesium [Mass/Vol] 1.6 mg/dL Low 1.9-2.7 [facility] Comment on above: Order Comment: No: D o not add to previous draw Performed By: #### 0 0071, 42000, 05696, 75173, 95646, 35583 #### [facility] [address] [place] [address], [facility] POC GLUCOSE LABon 04-09-2018 Glucose [Mass/Vol] 253 mg/dL High 70-100 [facility] Comment on above: Performed By: #### 0 0071, 94202, 88622, 80370, 33903, 17310 #### [facility] [address] [place] [address], [place] Glucose [Mass/Vol] 161 mg/dL High 70-100 [facility] Comment on above: Performed By: #### 0 0071, 36052, 69043, 30066, 45088, 06507 #### [facility] [address] [place] [address], [facility] Glucose [Mass/Vol] 244 mg/dL High 70-100 [facility] Comment on above: Performed By: #### 0 0071, 36842, 13767, 80492, 15967, 26248 #### [facility] [address] [place] [address], [facility] Glucose [Mass/Vol] 175 mg/dL High 70-100 [facility] Comment on above: Performed By: #### 0 0071, 76060, 50777, 08108, 45910, 89751 #### [facility] [address] [place] [address], [facility] PROTHROMBIN TIMEon 9 INR Coag (PPP) [Relative time] 1.72 {INR} High 0.91-1.16 [facility] Comment on above: Result Comment: ACCC [...] CHEST 1995;108:231S-246S. Performed By: #### 0 0071, 54432, 36712, 24370, 60812, 08389 #### [facility] [address] [place] [address], [facility] PT Coag (PPP) [Time] 20.2 s High 12.3-14.8 [facility] Comment on above: Result Comment: ALL RESULTS MUST BE INTERPRETED WITH RESPECT TO BLOOD DRAWING ARTIFACT OR DILUTION ERROR OF ANTICOAGULANT AT THE TIME OF SAMPLING. Performed By: #### 0 0071, 72996, 49099, 18282, 94822, 38968 #### [facility] [address] BASIC METABOLIC PANELon 03-22 Calcium [Mass/Vol] 9.1 mg/dL Normal 8.6-10.3 [facility] Comment on above: Order Comment: No: D o not add to previous draw Performed By: #### 0 0071, 90042, 08333, 89423, 69744, 05722 #### [facility] [address] [place] [address], [facility] Chloride [Moles/Vol] 103 mmol/L Normal 98-107 [facility] Comment on above: Order Comment: No: D o not add to previous draw Performed By: #### 0 0071, 54445, 30293, 62199, 23476, 72140 #### [facility] [address] [place] [address], [facility] CO2 [Moles/Vol] 24 mmol/L Normal 21-31 [facility] Comment on above: Order Comment: No: D o not add to previous draw Performed By: #### 0 0071, 73801, 73249, 25859, 53251, 19899 #### [facility] [address] [place] [address], [place] Creatinine [Mass/Vol] 0.95 mg/dL Normal 0.60-1.20 [facility] Comment on above: Order Comment: No: D o not add to previous draw Performed By: #### 0 0071, 56034, 34709, 97550, 50469, 93845 #### [facility] [address] [place] [address], [place] GFR/1.73 sq M predicted among blacks MDRD (S/P/Bld) [Vol rate/Area] mL/min/{1.73_m2} Normal >60 [facility] Comment on above: Order Comment: No: D o not add to previous draw Result Comment: Calc ulation may not be valid for patients over 70 years Performed By: #### 0 0071, 65886, 20282, 76664, 12626, 33964 #### [facility] [address] [place] [address], [place] GFR/1.73 sq M predicted among non-blacks MDRD (S/P/Bld) [Vol rate/Area] 56 ml/min/1.73sq m Abnormal >60 [facility] Comment on above: Order Comment: No: D o not add to previous draw Result Comment: Calc ulation may not be valid for patients over 70 years Performed By: #### 0 0071, 54119, 60493, 37946, 36275, 94264 #### [facility] [address] [place] [address], [place] Glucose [Mass/Vol] 158 mg/dL High 70-100 [facility] Comment on above: Order Comment: No: D o not add to previous draw Performed By: #### 0 0071, 45753, 89000, 86576, 43948, 36661 #### [facility] [address] [place] [address], [facility] Potassium [Moles/Vol] 4.3 mmol/L Normal 3.5-5.1 [facility] Comment on above: Order Comment: No: D o not add to previous draw Performed By: #### 0 0071, 71752, 70123, 42775, 08232, 95617 #### [facility] [address] [place] [address], [facility] Sodium [Moles/Vol] 134 mmol/L Low 136-145 [facility] Comment on above: Order Comment: No: D o not add to previous draw Performed By: #### 0 0071, 04648, 96938, 34868, 27064, 34532 #### [facility] [address] [place] [address], [facility] Urea nitrogen [Mass/Vol] 24 mg/dL Normal 7-25 [facility] Comment on above: Order Comment: No: D o not add to previous draw Performed By: #### 0 0071, 36586, 64236, 42197, 14688, 27086 #### [facility] [address] [place] [address], [facility] CBC COMPLETE BLOOD COUNTon 0 - Erythrocyte distribution width (RBC) [Ratio] 13.0 % Normal 11.5-15.0 [facility] Comment on above: Order Comment: No: D o not add to previous draw Performed By: #### 0 0071, 03103, 60394, 46264, 01010, 72577 #### [facility] [address] [place] [address], [place] Hematocrit (Bld) [Volume fraction] 38.4 % Normal 36.0-45.0 [facility] Comment on above: Order Comment: No: D o not add to previous draw Performed By: #### 0 0071, 25987, 64491, 56557, 42668, 51669 #### [facility] [address] [place] [address], [facility] Hemoglobin (Bld) [Mass/Vol] 12.7 g/dL Normal 12.0-15.0 [facility] Comment on above: Order Comment: No: D o not add to previous draw Performed By: #### 0 0071, 21122, 95575, 38708, 27775, 40737 #### [facility] [address] [place] [address], [facility] MCH (RBC) [Entitic mass] 30.4 pg Normal 27.0-33.0 [facility] Comment on above: Order Comment: No: D o not add to previous draw Performed By: #### 0 0071, 41705, 66739, 99191, 04492, 11510 #### [facility] [address] [facility] MCHC (RBC) [Mass/Vol] 33.1 g/dL Normal 32.0-35.0 [facility] Comment on above: Order Comment: No: D o not add to previous draw Performed By: #### 0 0071, 54773, 70059, 45970, 62179, 18962 #### [facility] [address] [facility] [address], [facility] MCV (RBC) [Entitic vol] 91.9 fL Normal 82.0-98.0 [facility] Comment on above: Order Comment: No: D o not add to previous draw Performed By: #### 0 0071, 32498, 03590, 02831, 12943, 57025 #### [facility] [address] [facility] [place] [address], [facility] Nucleated RBC/100 WBC (Bld) [Ratio] 0 % Normal 0-0 [facility] Comment on above: Order Comment: No: D o not add to previous draw Performed By: #### 0 0071, 02928, 20019, 07686, 16477, 98835 #### [facility] [address] [place] [address], [facility] PLAT CNT 164 10*3/uL Normal 150-400 [facility] Comment on above: Order Comment: No: D o not add to previous draw Performed By: #### 0 0071, 45167, 71279, 38730, 18526, 28641 #### [facility] [address] [place] [address], [facility] RBC (Bld) [#/Vol] 4.18 10*6/uL Normal 3.80-5.00 [facility] Comment on above: Order Comment: No: D o not add to previous draw Performed By: #### 0 0071, 32160, 01735, 55849, 35517, 14507 #### [facility] [address] [place] [address], [facility] WBC (Bld) [#/Vol] 6.62 10*3/uL Normal 4.00-10.60 [facility] Comment on above: Order Comment: No: D o not add to previous draw Performed By: #### 0 0071, 29938, 27308, 31821, 01196, 73318 #### [facility] [address] [place] [address], [place] MAGNESIUM BLOODon 04-08-2018 Magnesium [Mass/Vol] 1.9 mg/dL Normal 1.9-2.7 [facility] Comment on above: Order Comment: No: D o not add to previous draw Performed By: #### 0 0071, 43515, 05667, 54285, 99570, 22855 #### [facility] [address] [place] [address], [place] POC GLUCOSE LABon 04-08-2018 Glucose [Mass/Vol] 199 mg/dL High 70-100 [facility] Comment on above: Performed By: #### 0 0071, 28791, 50878, 74374, 23003, 77331 #### [facility] [address] [place] [address], [place] Glucose [Mass/Vol] 198 mg/dL High 70-100 [facility] Comment on above: Performed By: #### 0 0071, 01124, 96766, 98249, 58041, 66539 #### [facility] [address] [facility] Glucose [Mass/Vol] 155 mg/dL High 70-100 [facility] Comment on above: Performed By: #### 0 0071, 04488, 14507, 23588, 62886, 07291 #### [facility] [address] [facility] PROTHROMBIN TIMEon 9 INR Coag (PPP) [Relative time] 1.68 {INR} High 0.91-1.16 [facility] Comment on above: Result Comment: ACCC [...] CHEST 1995;108:231S-246S. Performed By: #### 0 0071, 68123, 46005, 67371, 18872, 33843 #### [facility] [address] [facility] PT Coag (PPP) [Time] 19.9 s High 12.3-14.8 [facility] Comment on above: Result Comment: ALL RESULTS MUST BE INTERPRETED WITH RESPECT TO BLOOD DRAWING ARTIFACT OR DILUTION ERROR OF ANTICOAGULANT AT THE TIME OF SAMPLING. Performed By: #### 0 0071, 35425, 32062, 44685, 88615, 17977 #### [facility] [address] *RAPID FLU AANDB BY MITCHELL Connor 04-07-2018 *RAPID FLU AANDB BY MOLECULAR Clinical Report: (D) Specimen: NASAL SWAB Collected: 04/06/2018 22:10 Status: Final Last Updated: 04/06/2018 23:10 FLUA RNA (Final) Negative FLUB RNA (Final) Negative Normal [facility] Comment on above: Performed By: #### 0 0071, 21748, 28569, 75488, 52491, 66422 #### [facility] [address] BASIC METABOLIC PANELon 03-22 Calcium [Mass/Vol] 8.3 mg/dL Low 8.6-10.3 [facility] Comment on above: Order Comment: No: D o not add to previous draw Performed By: #### 0 0071, 76649, 02529, 91913, 71185, 98762 #### [facility] [address] [facility] [address], [facility] Chloride [Moles/Vol] 105 mmol/L Normal 98-107 [facility] Comment on above: Order Comment: No: D o not add to previous draw Performed By: #### 0 0071, 39348, 46072, 42820, 69399, 60431 #### [facility] [address] [place] [address], [facility] CO2 [Moles/Vol] 24 mmol/L Normal 21-31 [facility] Comment on above: Order Comment: No: D o not add to previous draw Performed By: #### 0 0071, 69544, 02314, 31850, 36556, 84469 #### [facility] [address] [place] [address], [facility] Creatinine [Mass/Vol] 1.24 mg/dL High 0.60-1.20 [facility] Comment on above: Order Comment: No: D o not add to previous draw Performed By: #### 0 0071, 03831, 49560, 03411, 69356, 30494 #### [facility] [address] [place] [address], [facility] GFR/1.73 sq M predicted among blacks MDRD (S/P/Bld) [Vol rate/Area] 50 ml/min/1.73sq m Abnormal >60 [facility] Comment on above: Order Comment: No: D o not add to previous draw Result Comment: Calc ulation may not be valid for patients over 70 years Performed By: #### 0 0071, 73112, 51974, 32233, 10757, 59269 #### [facility] [address] [place] [address], [facility] GFR/1.73 sq M predicted among non-blacks MDRD (S/P/Bld) [Vol rate/Area] 42 ml/min/1.73sq m Abnormal >60 [facility] Comment on above: Order Comment: No: D o not add to previous draw Result Comment: Calc ulation may not be valid for patients over 70 years Performed By: #### 0 0071, 16852, 78545, 90437, 18898, 84123 #### [facility] [address] [place] [address], [facility] Glucose [Mass/Vol] 166 mg/dL High 70-100 [facility] Comment on above: Order Comment: No: D o not add to previous draw Performed By: #### 0 0071, 80278, 78893, 15722, 07255, 86899 #### [facility] [address] [place] [address], [facility] Potassium [Moles/Vol] 4.2 mmol/L Normal 3.5-5.1 [facility] Comment on above: Order Comment: No: D o not add to previous draw Performed By: #### 0 0071, 49284, 38049, 26802, 54938, 86155 #### [facility] [address] Sodium [Moles/Vol] 135 mmol/L Low 136-145 [facility] Comment on above: Order Comment: No: D o not add to previous draw Performed By: #### 0 0071, 11522, 42021, 94150, 50430, 95701 #### [facility] [address] Urea nitrogen [Mass/Vol] 33 mg/dL High 7-25 [facility] Comment on above: Order Comment: No: D o not add to previous draw Performed By: #### 0 0071, 83411, 86243, 45239, 52557, 21192 #### [facility] [address] CBC W/DIFFon 04-07-2018 ABS BASOPHILS 0.1 10*3/uL Normal 0.0-0.2 [facility] Comment on above: Order Comment: No: D o not add to previous draw Performed By: #### 0 0071, 74124, 93370, 00871, 42979, 19183 #### [facility] [address] ABS IMM GRANS 0.1 10*3/uL Normal 0.0-0.2 [facility] Comment on above: Order Comment: No: D o not add to previous draw Performed By: #### 0 0071, 37828, 74442, 13599, 74624, 46077 #### [facility] [address] ABS NEUTROPHILS 6.4 10*3/uL Normal 1.6-7.6 [facility] Comment on above: Order Comment: No: D o not add to previous draw Performed By: #### 0 0071, 05955, 79496, 66352, 93262, 41366 #### [facility] [address] Basophils/100 WBC (Bld) 0.5 % Normal 0.0-1.0 [facility] Comment on above: Order Comment: No: D o not add to previous draw Performed By: #### 0 0071, 05393, 08892, 90438, 75585, 80523 #### [facility] [address] [place] [address], [facility] Eosinophils (Bld) [#/Vol] 0.0 10*3/uL Normal 0.0-0.5 [facility] Comment on above: Order Comment: No: D o not add to previous draw Performed By: #### 0 0071, 31133, 13776, 90370, 98592, 43674 #### [facility] [address] [place] [address], [facility] Eosinophils/100 WBC (Bld) 0.0 % Normal 0.0-6.0 [facility] Comment on above: Order Comment: No: D o not add to previous draw Performed By: #### 0 0071, 63167, 73013, 29052, 03905, 76326 #### [facility] [address] [place] [address], [facility] Erythrocyte distribution width (RBC) [Ratio] 13.2 % Normal 11.5-15.0 [facility] Comment on above: Order Comment: No: D o not add to previous draw Performed By: #### 0 0071, 64184, 53498, 92103, 07049, 77202 #### [facility] [address] [place] [address], [facility] Hematocrit (Bld) [Volume fraction] 35.0 % Low 36.0-45.0 [facility] Comment on above: Order Comment: No: D o not add to previous draw Performed By: #### 0 0071, 78156, 79233, 33472, 99469, 73160 #### [facility] [address] [place] [address], [facility] Hemoglobin (Bld) [Mass/Vol] 11.4 g/dL Low 12.0-15.0 [facility] Comment on above: Order Comment: No: D o not add to previous draw Performed By: #### 0 0071, 82949, 45931, 74406, 89338, 42761 #### [facility] [address] [place] [address], [facility] IMMATURE GRANS 0.5 % Normal 0.0-1.0 [facility] Comment on above: Order Comment: No: D o not add to previous draw Performed By: #### 0 0071, 90839, 01111, 10314, 71489, 72342 #### [facility] [address] [facility] [address], [facility] Lymphocytes (Bld) [#/Vol] 2.1 10*3/uL Normal 1.2-4.0 [facility] Comment on above: Order Comment: No: D o not add to previous draw Performed By: #### 0 0071, 18375, 23945, 40826, 59819, 10363 #### [facility] [address] [facility] [place] [address], [facility] Lymphocytes/100 WBC (Bld) 21.7 % Normal 20.0-45.0 [facility] Comment on above: Order Comment: No: D o not add to previous draw Performed By: #### 0 0071, 68552, 67737, 14352, 00224, 85977 #### [facility] [address] [facility] [place] [address], [facility] MCH (RBC) [Entitic mass] 29.8 pg Normal 27.0-33.0 [facility] Comment on above: Order Comment: No: D o not add to previous draw Performed By: #### 0 0071, 25347, 90374, 67455, 47249, 22241 #### [facility] [address] [place] [address], [facility] MCHC (RBC) [Mass/Vol] 32.6 g/dL Normal 32.0-35.0 [facility] Comment on above: Order Comment: No: D o not add to previous draw Performed By: #### 0 0071, 76158, 66733, 87837, 79699, 10186 #### [facility] [address] [place] [address], [facility] MCV (RBC) [Entitic vol] 91.4 fL Normal 82.0-98.0 [facility] Comment on above: Order Comment: No: D o not add to previous draw Performed By: #### 0 0071, 09624, 04424, 61358, 16803, 99022 #### [facility] [address] [place] [address], [facility] Monocytes (Bld) [#/Vol] 1.0 10*3/uL Normal 0.1-1.0 [facility] Comment on above: Order Comment: No: D o not add to previous draw Performed By: #### 0 0071, 66793, 21954, 27032, 08246, 14659 #### [facility] [address] [place] [address], [facility] MONOS 10.6 % Normal 5.0-12.0 [facility] Comment on above: Order Comment: No: D o not add to previous draw Performed By: #### 0 0071, 93950, 03728, 15038, 27040, 30467 #### [facility] [address] [facility] [place] [address], [facility] Neutrophils/100 WBC (Bld) 66.7 % Normal 40.0-72.0 [facility] Comment on above: Order Comment: No: D o not add to previous draw Performed By: #### 0 0071, 03073, 79690, 96705, 03656, 41563 #### [facility] [address] [place] [address], [facility] Nucleated RBC/100 WBC (Bld) [Ratio] 0 % Normal 0-0 [facility] Comment on above: Order Comment: No: D o not add to previous draw Performed By: #### 0 0071, 66878, 60301, 57925, 70270, 92520 #### [facility] [address] [facility] [place] [address], [facility] PLAT CNT 150 10*3/uL Normal 150-400 [facility] Comment on above: Order Comment: No: D o not add to previous draw Performed By: #### 0 0071, 84798, 81400, 82516, 13455, 82988 #### [facility] [address] RBC (Bld) [#/Vol] 3.83 10*6/uL Normal 3.80-5.00 [facility] Comment on above: Order Comment: No: D o not add to previous draw Performed By: #### 0 0071, 38730, 09291, 10240, 44903, 65797 #### [facility] [address] [facility]. [address] WBC (Bld) [#/Vol] 9.53 10*3/uL Normal 4.00-10.60 [facility] Comment on above: Order Comment: No: D o not add to previous draw Performed By: #### 0 0071, 06721, 40481, 17246, 50373, 36231 #### [facility] [facility] [address] MAGNESIUM BLOODon 04-07-2018 Magnesium [Mass/Vol] 1.4 mg/dL Low 1.9-2.7 [facility] Comment on above: Order Comment: No: D o not add to previous draw Performed By: #### 0 0071, 74694, 92528, 15061, 05721, 62353 #### [facility] [address] PHOSPHORUS BLOODon 9 Phosphate [Mass/Vol] 2.6 mg/dL Normal 2.5-5.0 [facility] Comment on above: Order Comment: No: D o not add to previous draw Performed By: #### 0 0071, 95685, 20252, 98538, 79850, 15693 #### [facility] [address] [place] [address], [facility] POC GLUCOSE LABon 04-07-2018 Glucose [Mass/Vol] 187 mg/dL High 70-100 [facility] Comment on above: Performed By: #### 0 0071, 73229, 44747, 76276, 03228, 90004 #### [facility] [address] [place] [address], [place] Glucose [Mass/Vol] 182 mg/dL High 70-100 [facility] Comment on above: Performed By: #### 0 0071, 26669, 10159, 63329, 56209, 81275 #### [facility] [address] [place] [address], [place] Glucose [Mass/Vol] 156 mg/dL High 70-100 [facility] Comment on above: Performed By: #### 0 0071, 32980, 37972, 09252, 74685, 79860 #### [facility] [address] [place] [address], [place] Glucose [Mass/Vol] 148 mg/dL High 70-100 [facility] Comment on above: Performed By: #### 0 0071, 62293, 02325, 06294, 65720, 67998 #### [facility] [address] [facility] [place] [address], [facility] PROTHROMBIN TIMEon 9 INR Coag (PPP) [Relative time] 1.65 {INR} High 0.91-1.16 [facility] Comment on above: Result Comment: ACCC [...] CHEST 1995;108:[id number]. Performed By: #### 0 0071, 79572, 45331, 25719, 82180, 85362 #### [facility] [address] PT Coag (PPP) [Time] 19.6 s High 12.3-14.8 [facility] Comment on above: Result Comment: ALL RESULTS MUST BE INTERPRETED WITH RESPECT TO BLOOD DRAWING ARTIFACT OR DILUTION ERROR OF ANTICOAGULANT AT THE TIME OF SAMPLING. Performed By: #### 0 0071, 18930, 59804, 06268, 10332, 45521 #### [facility] 3000 [facility]. [address] INR Coag (PPP) [Relative time] 1.68 {INR} High 0.91-1.16 [facility] Comment on above: Result Comment: ACCC [...] CHEST 1995;108:231S-246S. Performed By: #### 0 0071, 55953, 26295, 34074, 74619, 66857 #### [facility] [address] PT Coag (PPP) [Time] 19.9 s High 12.3-14.8 [facility] Comment on above: Result Comment: ALL RESULTS MUST BE INTERPRETED WITH RESPECT TO BLOOD DRAWING ARTIFACT OR DILUTION ERROR OF ANTICOAGULANT AT THE TIME OF SAMPLING. Performed By: #### 0 0071, 21049, 68251, 30232, 67449, 34978 #### [facility] [address] TROPONIN-Ion 04-07-2018 Troponin I.cardiac [Mass/Vol] 0.15 ng/mL Critically high 0.00-0.04 [facility] Comment on above: Order Comment: No: D o not add to previous draw Result Comment: M-RI EVIOUS CRITICAL RESULT REFERENCE RANGES: 0.00 - 0.04 ng/ml NORMAL 0.05 - 0.50 ng/ml INDETERMINATE > 0.50 ng/ml CONSISTENT WITH AN M.I. Performed By: #### 0 0071, 35267, 17007, 39223, 87249, 73150 #### [facility] [address] [facility] [place] [address], [facility] Troponin I.cardiac [Mass/Vol] 0.17 ng/mL Critically high 0.00-0.04 [facility] Comment on above: Result Comment: M-RI EVIOUS CRITICAL RESULT REFERENCE RANGES: 0.00 - 0.04 ng/ml NORMAL 0.05 - 0.50 ng/ml INDETERMINATE > 0.50 ng/ml CONSISTENT WITH AN M.I. Performed By: #### 0 0071, 84792, 88496, 51064, 45139, 42947 #### [facility] [address] [place] [address], [facility] Troponin I.cardiac [Mass/Vol] 0.20 ng/mL Critically high 0.00-0.04 [facility] Comment on above: Order Comment: No: D o not add to previous draw Result Comment: M-RI EVIOUS CRITICAL RESULT REFERENCE RANGES: 0.00 - 0.04 ng/ml NORMAL 0.05 - 0.50 ng/ml INDETERMINATE > 0.50 ng/ml CONSISTENT WITH AN M.I. Performed By: #### 0 0071, 01767, 40615, 79937, 79100, 48206 #### [facility] [address] [place] [address], [facility] URINALYSIS REFLEXon 04-07-19 19 Appearance (U) SL CLOUDY Abnormal CLEAR [facility] Comment on above: Order Comment: No: D o not add to previous draw Performed By: #### 0 0071, 48418, 22223, 59411, 69646, 33461 #### [facility] [address] [place] [address], [facility] Bilirubin [Mass/Vol] Negative Normal NEGATIVE [facility] Comment on above: Order Comment: No: D o not add to previous draw Performed By: #### 0 0071, 04749, 47090, 19992, 92083, 99256 #### [facility] [address] [facility] [place] [address], [facility] BLOOD Negative Normal NEGATIVE [facility] Comment on above: Order Comment: No: D o not add to previous draw Performed By: #### 0 0071, 56413, 39022, 74599, 76167, 03564 #### [facility] [address] [facility] [place] [address], [facility] Color (U) YELLOW Normal YELLOW [facility] Comment on above: Order Comment: No: D o not add to previous draw Performed By: #### 0 0071, 90275, 50172, 49029, 13295, 12619 #### [facility] [address] [place] [address], [facility] EPIS MANY Abnormal FEW,OCC,NO NE SEEN [facility] Comment on above: Order Comment: No: D o not add to previous draw Performed By: #### 0 0071, 35749, 43025, 89523, 30272, 17403 #### [facility] [address] [place] [address], [facility] Glucose [Mass/Vol] Negative Normal NEGATIVE [facility] Comment on above: Order Comment: No: D o not add to previous draw Performed By: #### 0 0071, 48234, 66834, 95357, 46830, 28330 #### [facility] [address] [place] [address], [facility] KETONE Negative Normal NEGATIVE [facility] Comment on above: Order Comment: No: D o not add to previous draw Performed By: #### 0 0071, 47781, 68465, 00550, 95741, 38223 #### [facility] [address] [place] [address], [facility] LEUK LIYAH MODERATE Abnormal NEGATIVE [facility] Comment on above: Order Comment: No: D o not add to previous draw Performed By: #### 0 0071, 59758, 87171, 14749, 31746, 37350 #### [facility] [address] [facility] [place] [address], [facility] Nitrite Ql (U) Negative Normal NEGATIVE [facility] Comment on above: Order Comment: No: D o not add to previous draw Performed By: #### 0 0071, 30120, 51322, 71995, 29447, 24218 #### [facility] [address] [place] [address], [facility] pH (Bld) 5.0 Normal 5.0-8.0 [facility] Comment on above: Order Comment: No: D o not add to previous draw Performed By: #### 0 0071, 63851, 32603, 50510, 01280, 21326 #### [facility] [address] [place] [address], [facility] Protein (U) [Mass/Vol] Negative Normal NEGATIVE Th e [facility] Comment on above: Order Comment: No: D o not add to previous draw Performed By: #### 0 0071, 89588, 64198, 86394, 89982, 10229 #### [facility] [address] [place] [address], [facility] RBC (U) [#/Vol] 0-2 Abnormal NONE SEEN [facility] Comment on above: Order Comment: No: D o not add to previous draw Performed By: #### 0 0071, 57202, 83416, 05810, 57695, 69777 #### [facility] [address] [place] [address], [facility] SPEC GRAV 1.019 Normal 1.015-1.02 0 [facility] Comment on above: Order Comment: No: D o not add to previous draw Performed By: #### 0 0071, 12134, 33128, 59100, 63266, 39793 #### [facility] [address] [facility] [place] [address], [facility] WBC UA 11-20 Abnormal NONE SEEN [facility] Comment on above: Order Comment: No: D o not add to previous draw Performed By: #### 0 0071, 88390, 61956, 44703, 41616, 64564 #### [facility] [address] [facility] [place] [address], [facility] *A-LEGIONELLA AG URon 2018 DIRECT EXAM test. Normal [facility] Comment on above: Order Comment: No: D o not add to previous draw [place] Normal [facility] Comment on above: Order Comment: No: D o not add to previous draw REPORT STATUS FINAL 04/07/2018 Normal [facility] Comment on above: Order Comment: No: D o not add to previous draw *BLOOD CULTUREon 04-06-2018 Bacteria identified Cx Nom (Bld) Clinical Report: (D) Specimen: BLOOD CULTURE Collected: 04/06/2018 19:35 Status: Final Last Updated: 04/12/2018 07:54 (1) x 2 Prior to Antibiotic Administration CULT RES (Final) No Growth Day 5 Normal [facility] Comment on above: Order Comment: No: D o not add to previous draw Performed By: #### 0 0071, 23702, 41047, 15550, 81611, 86813 #### [facility] [address] [place] [address], [facility] Bacteria identified Cx Nom (Bld) Clinical Report: (D) Specimen: BLOOD CULTURE Collected: 04/06/2018 19:34 Status: Final Last Updated: 04/12/2018 07:54 (1) x 2 Prior to Antibiotic Administration CULT RES (Final) No Growth Day 5 Normal [facility] Comment on above: Order Comment: No: D o not add to previous draw Performed By: #### 0 0071, 16294, 30045, 69743, 97518, 22931 #### [facility] [address] [facility] [address], [facility] BASIC METABOLIC PANELon 03-22 Calcium [Mass/Vol] 8.5 mg/dL Low 8.6-10.3 [facility] Comment on above: Order Comment: No: D o not add to previous draw Performed By: #### 0 0071, 93122, 94109, 93532, 97708, 73323 #### [facility] [address] [place] [address], [place] Chloride [Moles/Vol] 104 mmol/L Normal 98-107 [facility] Comment on above: Order Comment: No: D o not add to previous draw Performed By: #### 0 0071, 74654, 72842, 70687, 58258, 17516 #### [facility] [address] [place] [address], [place] CO2 [Moles/Vol] 22 mmol/L Normal 21-31 [facility] Comment on above: Order Comment: No: D o not add to previous draw Performed By: #### 0 0071, 99284, 56283, 75146, 81841, 22723 #### [facility] [address] [place] [address], [place] Creatinine [Mass/Vol] 1.41 mg/dL High 0.60-1.20 [facility] Comment on above: Order Comment: No: D o not add to previous draw Performed By: #### 0 0071, 60908, 92845, 91695, 19084, 39802 #### [facility] [address] [place] [address], [place] GFR/1.73 sq M predicted among blacks MDRD (S/P/Bld) [Vol rate/Area] 44 ml/min/1.73sq m Abnormal >60 [facility] Comment on above: Order Comment: No: D o not add to previous draw Result Comment: Calc ulation may not be valid for patients over 70 years Performed By: #### 0 0071, 52257, 24826, 04013, 50879, 28511 #### [facility] [address] [place] [address], [place] GFR/1.73 sq M predicted among non-blacks MDRD (S/P/Bld) [Vol rate/Area] 36 ml/min/1.73sq m Abnormal >60 [facility] Comment on above: Order Comment: No: D o not add to previous draw Result Comment: Calc ulation may not be valid for patients over 70 years Performed By: #### 0 0071, 39131, 87708, 02635, 03037, 84093 #### [facility] [address] [place] [address], [place] Glucose [Mass/Vol] 198 mg/dL High 70-100 [facility] Comment on above: Order Comment: No: D o not add to previous draw Performed By: #### 0 0071, 77276, 93332, 99829, 41776, 44897 #### [facility] [address] Potassium [Moles/Vol] 4.7 mmol/L Normal 3.5-5.1 [facility] Comment on above: Order Comment: No: D o not add to previous draw Performed By: #### 0 0071, 25549, 54216, 79349, 01091, 31507 #### [facility] [address] [facility] Sodium [Moles/Vol] 135 mmol/L Low 136-145 [facility] Comment on above: Order Comment: No: D o not add to previous draw Performed By: #### 0 0071, 19035, 49602, 54643, 77935, 12391 #### [facility] [address] Urea nitrogen [Mass/Vol] 34 mg/dL High 7-25 [facility] Comment on above: Order Comment: No: D o not add to previous draw Performed By: #### 0 0071, 65246, 26277, 62176, 13447, 95290 #### [facility] [address] [place] [address], [facility] CBC W/DIFFon 04-06-2018 ABS BASOPHILS 0.1 10*3/uL Normal 0.0-0.2 [facility] Comment on above: Performed By: #### 5 0103 #### [facility] [address] ABS IMM GRANS 0.1 10*3/uL Normal 0.0-0.2 [facility] Comment on above: Performed By: #### 5 0103 #### [facility] [address] ABS NEUTROPHILS 11.3 10*3/uL High 1.6-7.6 [facility] Comment on above: Performed By: #### 5 0103 #### [facility] [address] Basophils/100 WBC (Bld) 0.3 % Normal 0.0-1.0 [facility] Comment on above: Performed By: #### 5 0103 #### [facility] [address] [place] [address], [facility] Eosinophils (Bld) [#/Vol] 0.0 10*3/uL Normal 0.0-0.5 [facility] Comment on above: Performed By: #### 5 0103 #### [facility] [address] [place] [address], [facility] Eosinophils/100 WBC (Bld) 0.0 % Normal 0.0-6.0 [facility] Comment on above: Performed By: #### 5 0103 #### [facility] [address] [facility] Erythrocyte distribution width (RBC) [Ratio] 13.1 % Normal 11.5-15.0 [facility] Comment on above: Performed By: #### 5 0103 #### [facility] [address] [facility] [place] [address], [facility] Hematocrit (Bld) [Volume fraction] 38.9 % Normal 36.0-45.0 [facility] Comment on above: Performed By: #### 5 0103 #### [facility] [address] [facility] [place] [address], [facility] Hemoglobin (Bld) [Mass/Vol] 12.7 g/dL Normal 12.0-15.0 [facility] Comment on above: Performed By: #### 0103 #### [facility] [address] [facility] [address], [facility] IMMATURE GRANS 0.3 % Normal 0.0-1.0 [facility] Comment on above: Performed By: #### 5 3 #### [facility] [address] [place] [address], [facility] Lymphocytes (Bld) [#/Vol] 1.8 10*3/uL Normal 1.2-4.0 [facility] Comment on above: Performed By: #### 5 0103 #### [facility] [address] [facility] [place] [address], [facility] Lymphocytes/100 WBC (Bld) 12.2 % Low 20.0-45.0 [facility] Comment on above: Performed By: #### 5 0103 #### [facility] [address] [facility] [place] [address], [facility] MCH (RBC) [Entitic mass] 30.5 pg Normal 27.0-33.0 [facility] Comment on above: Performed By: #### 5 0103 #### [facility] [address] [facility] [place] [address], [facility] MCHC (RBC) [Mass/Vol] 32.6 g/dL Normal 32.0-35.0 [facility] Comment on above: Performed By: #### 5 0103 #### [facility] [address] [place] [address], [facility] MCV (RBC) [Entitic vol] 93.3 fL Normal 82.0-98.0 [facility] Comment on above: Performed By: #### 5 0103 #### [facility] [address] [place] [address], [facility] Monocytes (Bld) [#/Vol] 1.2 10*3/uL High 0.1-1.0 [facility] Comment on above: Performed By: #### 5 3 #### [facility] [address] [place] [address], [facility] MONOS 8.4 % Normal 5.0-12.0 [facility] Comment on above: Performed By: #### 5 3 #### [facility] [address] [facility] [place] [address], [facility] Neutrophils/100 WBC (Bld) 78.8 % High 40.0-72.0 [facility] Comment on above: Performed By: #### 5 0103 #### [address] Nucleated RBC/100 WBC (Bld) [Ratio] 0 % Normal 0-0 [facility] Comment on above: Performed By: #### 5 0103 #### [address] PLAT CNT 156 10*3/uL Normal 150-400 [facility] Comment on above: Performed By: #### 5 0103 #### [address] RBC (Bld) [#/Vol] 4.17 10*6/uL Normal 3.80-5.00 [facility] Comment on above: Performed By: #### 5 0103 #### [address] WBC (Bld) [#/Vol] 14.33 10*3/uL High 4.00-10.60 [facility] Comment on above: Performed By: #### 5 0103 #### [address] CHEST AND LATERALon 04-06-19 19 CHEST AND LATERAL [facility] Department of Radiology [address] [place] [address] [phone] Patient Name: MOHAN ESPINOZA : 1935 Sex: F Age: Race: White Pt. Location: [id number] Patient Status: I Ordered Date: 04/06/2018 6:20:00 [...] findings. Electronically signed by:Ronna Villalobos. Transcribed by: [email or web address], User Resident: MURTAZA VILLAGRAN Electronically Signed by: RONNA VILLALOBOS @ 04/07/2018 09:13 AM I personally read this/these film(s) with this resident Normal [facility] Comment on above: Order Comment: No: D o not add to previous draw DIGOXINon 04-06-2018 Digoxin [Mass/Vol] 0.7 ng/mL Normal 0.7-2.0 [facility] Comment on above: Performed By: #### 0 0071, 54197, 77168, 93253, 56338, 21551 #### [facility] [address] [place] [address], [facility] LIVER BATTERYon 04-06-2018 Albumin [Mass/Vol] 3.4 g/dL Low 3.5-5.7 [facility] Comment on above: Order Comment: No: D o not add to previous draw Performed By: #### 0 0071, 54651, 53191, 18586, 72108, 17328 #### [facility] [address] [place] [address], [facility] ALKALINE PHOSPH 50 IU/L Normal 34-104 [facility] Comment on above: Order Comment: No: D o not add to previous draw Performed By: #### 0 0071, 13431, 55617, 83287, 39356, 71749 #### [facility] [address] [place] [address], [facility] ALT [Catalytic activity/Vol] 16 U/L Normal 7-52 [facility] Comment on above: Order Comment: No: D o not add to previous draw Performed By: #### 0 0071, 30016, 95156, 02852, 83653, 30231 #### [facility] [address] [place] [address], [facility] AST [Catalytic activity/Vol] 17 U/L Normal 13-39 [facility] Comment on above: Order Comment: No: D o not add to previous draw Performed By: #### 0 0071, 33201, 04166, 04983, 35207, 02969 #### [facility] [address] [place] [id number], [place] Bilirubin [Mass/Vol] 0.5 mg/dL Normal 0.3-1.0 [facility] Comment on above: Order Comment: No: D o not add to previous draw Performed By: #### 0 0071, 40469, 69563, 79554, 18551, 31784 #### [facility] [address] [place] [address], [place] Bilirubin.direct [Mass/Vol] 0.1 mg/dL Normal 0.0-0.2 [facility] Comment on above: Order Comment: No: D o not add to previous draw Performed By: #### 0 0071, 78602, 83322, 06125, 66091, 13038 #### [facility] [address] [place] [address], [facility] Protein [Mass/Vol] 6.2 g/dL Normal 6.0-8.3 [facility] Comment on above: Order Comment: No: D o not add to previous draw Performed By: #### 0 0071, 72422, 47889, 70726, 56613, 65964 #### [facility] [address] [place] [address], [facility] MAGNESIUM BLOODon 04-06-2018 Magnesium [Mass/Vol] 1.3 mg/dL Low 1.9-2.7 [facility] Comment on above: Order Comment: No: D o not add to previous draw Performed By: #### 0 0071, 48188, 83924, 39868, 34680, 29415 #### [facility] [address] [place] [address], [facility] PHOSPHORUS BLOODon 9 Phosphate [Mass/Vol] 2.6 mg/dL Normal 2.5-5.0 [facility] Comment on above: Order Comment: No: D o not add to previous draw Performed By: #### 0 0071, 82944, 15198, 60999, 07977, 15696 #### [facility] [address] [place] [address], [facility] POC GLUCOSE LABon 04-06-2018 Glucose [Mass/Vol] 172 mg/dL High 70-100 [facility] Comment on above: Performed By: #### 8 5499 #### [facility] [address] [place] [address], [facility] PROCALCITONINon 04-06-2018 PROCALCITONIN 2.61 ng/mL Critically high 0.00-0.10 [facility] Comment on above: Order Comment: Yes: [...] 2034 Performed By: #### [id number] #### [facility] [address] [place] [address], [facility] SEPSIS LACTATE W/REFLEXon Lactate [Moles/Vol] 1.4 mmol/L Normal 0.5-2.2 [facility] Comment on above: Order Comment: No: D o not add to previous draw Performed By: #### 3 [id number] #### [facility] [address] [place] [address], [facility] TROPONIN-Ion 04-06-2018 Troponin I.cardiac [Mass/Vol] 0.23 ng/mL Critically high 0.00-0.04 [facility] Comment on above: Order Comment: No: D o not add to previous draw 1755- PATIENT DOES NOT HAVE I.D. BAND YET -TECH BM 1824- NO I.D. BAND [employer] -TECH GC Result Comment: M-CR ITICAL RESULT(S) REVIEWED, CALLED TO AND READ BACK BY LAURA VITAL RN AT 0484 REFERENCE RANGES: 0.00 - 0.04 ng/ml NORMAL 0.05 - 0.50 ng/ml INDETERMINATE > 0.50 ng/ml CONSISTENT WITH AN M.I. Performed By: #### 0 [id number], [id number] #### [facility] [address] [place] [address], [facility] CRPon 11-05-2017 CRP mass conc 4.0 mg/dL High <=1.9 [facility] Comment on above: Performed By: #### [id number] ####[facility] [address] [place] [address] Vital Signs Date Time Vital Sign Value Performing Clinician Facility 10-31-2024 09:22-0400 Body temperature 97.81 [degF] Ирина Brown SHEET TAKER Work Phone: [facility] 10-31-2024 09:22-0400 Diastolic blood pressure 78 mm[Hg] Ирина Kevin SHEET TAKER Work Phone: [facility] 10-31-2024 09:22-0400 Heart rate 80 /min Ирина Tomasz SHEET TAKER Work Phone: [facility] 10-31-2024 09:22-0400 Respiratory rate 24 /min Ирина Kevin SHEET TAKER Work Phone: [facility] 10-31-2024 09:22-0400 SaO2% (BldA) [Mass fraction] 93 % Ирина Tomasz SHEET TAKER Work Phone: [facility] 10-31-2024 09:22-0400 Systolic blood pressure 168 mm[Hg] Ирина Tomasz SHEET TAKER Work Phone: [facility] 10-18-2024 09:48-0400 Body height 172.7 cm Joseluis Casey DO Work Phone: [facility] 10-18-2024 09:48-0400 Diastolic blood pressure 82 mm[Hg] Joseluis Casey DO Work Phone: [facility] 10-18-2024 09:48-0400 Heart rate 72 /min Joseluis Casey DO Work Phone: [facility] 10-18-2024 09:48-0400 Systolic blood pressure 134 mm[Hg] Joseluis Casey DO Work Phone: [facility] 08-29-2024 10:40-0400 Body temperature 98.1 [degF] Ирина Tomasz SHEET TAKER Work Phone: [facility] 08-29-2024 10:40-0400 Diastolic blood pressure 80 mm[Hg] Ирина Dorethahholz SHEET TAKER Work Phone: [facility] 08-29-2024 10:40-0400 Heart rate 83 /min Ирина Maxholz SHEET TAKER Work Phone: [facility] 08-29-2024 10:40-0400 Respiratory rate 18 /min Ирина Aichholz SHEET TAKER Work Phone: [facility] 08-29-2024 10:40-0400 SaO2% (BldA) [Mass fraction] 96 % Ирина Dorethahholz SHEET TAKER Work Phone: [facility] 08-29-2024 10:40-0400 Systolic blood pressure 118 mm[Hg] Ирина Maxholz SHEET TAKER Work Phone: [facility] 05-25-2024 10:29-0500 Body height 172.7 cm Ирина Aichholz SHEET TAKER Work Phone: [facility] 05-25-2024 10:29-0500 Body mass index (BMI) [Ratio] 41.36 kg/m2 Ирина Aichholz SHEET TAKER Work Phone: [facility] 05-25-2024 10:29-0500 Body temperature 97.59 [degF] Ирина Aichholz SHEET TAKER Work Phone: [facility] 05-25-2024 10:29-0500 Body weight 123.38 kg Иринаluna Santanaholz SHEET TAKER Work Phone: [facility] 05-25-2024 10:29-0500 Diastolic blood pressure 72 mm[Hg] Ирина Aichholz SHEET TAKER Work Phone: [facility] 05-25-2024 10:29-0500 Heart rate 94 /min Ирина Aichholz SHEET TAKER Work Phone: [facility] 05-25-2024 10:29-0500 Respiratory rate 22 /min Ирина Aichholz SHEET TAKER Work Phone: [facility] 05-25-2024 10:29-0500 SaO2% (BldA) [Mass fraction] 98 % Ирина Dorethahholz SHEET TAKER Work Phone: [facility] 05-25-2024 10:29-0500 Systolic blood pressure 128 mm[Hg] Ирина Aichholz SHEET TAKER Work Phone: [facility] 01-25-2024 08:54-0500 Body height 172.7 cm Emilie Meza SHEET TAKER Work Phone: [facility] 01-25-2024 08:54-0500 Body temperature 97 [degF] Emilie Meza SHEET TAKER Work Phone: [facility] 01-25-2024 08:54-0500 Diastolic blood pressure 82 mm[Hg] Emilie Meza SHEET TAKER Work Phone: [facility] 01-25-2024 08:54-0500 Heart rate 76 /min Emilie Meza SHEET TAKER Work Phone: [facility] 01-25-2024 08:54-0500 Respiratory rate 18 /min Emilie Meza SHEET TAKER Work Phone: [facility] 01-25-2024 08:54-0500 SaO2% (BldA) [Mass fraction] 94 % Emilie Meza SHEET TAKER Work Phone: [facility] 01-25-2024 08:54-0500 Systolic blood pressure 118 mm[Hg] Emilie Meza SHEET TAKER Work Phone: [facility] 01-10-2024 11:08-0400 Body temperature 97 [degF] Emilie Meza SHEET TAKER Work Phone: [facility] 01-10-2024 11:08-0400 Diastolic blood pressure 68 mm[Hg] Emilie Meza SHEET TAKER Work Phone: [facility] 01-10-2024 11:08-0400 Heart rate 85 /min Emilie Meza SHEET TAKER Work Phone: [facility] 01-10-2024 11:08-0400 SaO2% (BldA) [Mass fraction] 94 % Emilie Meza SHEET TAKER Work Phone: [facility] 01-10-2024 11:08-0400 Systolic blood pressure 140 mm[Hg] Emilie Meza SHEET TAKER Work Phone: [facility] 12-28-2023 08:00-0400 Body temperature 98.4 [degF] DO Ren Frings Work Phone: [facility] 12-28-2023 08:00-0400 Diastolic blood pressure 80 mm[Hg] DO Ren Frings Work Phone: [facility] 12-28-2023 08:00-0400 Heart rate 80 /min DO Ren Frings Work Phone: [facility] 12-28-2023 08:00-0400 Respiratory rate 18 /min DO Ren Frings Work Phone: [facility] 12-28-2023 08:00-0400 SaO2% (BldA) [Mass fraction] 96 % DO Ren Frings Work Phone: [facility] 12-28-2023 08:00-0400 Systolic blood pressure 155 mm[Hg] DO Ren Correangs Work Phone: [facility] 12-28-2023 06:00-0400 Body weight 132.9 kg DO Ren Correangs Work Phone: [facility] 12-25-2023 11:58-0400 Body height 172.72 cm DO Ren Correangs Work Phone: [facility] 07-01-2022 09:34-0400 Body height 172.72 cm Shaikh Marion Work Phone: [facility] [address] DO Work Phone: 07-01-2022 09:34-0400 Body mass index (BMI) [Ratio] Patient Reason Not Done Shaikh Marion Work Phone: [facility] [address] DO Work Phone: 07-01-2022 09:34-0400 Diastolic blood pressure 66 mm[Hg] Shaikh Marion Work Phone: [facility] DO Work Phone: 07-01-2022 09:34-0400 Heart rate 68 /min Shaikh Marion Work Phone: [facility] DO Work Phone: 07-01-2022 09:34-0400 Systolic blood pressure 106 mm[Hg] Shaikh Marion Work Phone: [facility] DO Work Phone: 07-01-2022 09:34-0400 16 1 Shaikh Marion Work Phone: [facility] DO Work Phone: Comment on above: PHQ-9 TS 06-23-2022 11:26-0400 Body temperature 97.4 [degF] MD Shaikh Schultz Work Phone: [facility] 06-23-2022 11:26-0400 Diastolic blood pressure 69 mm[Hg] MD Shaikh Schultz Work Phone: [facility] 06-23-2022 11:26-0400 Heart rate 100 /min MD Shaikh Schultz Work Phone: [facility] 06-23-2022 11:26-0400 Respiratory rate 18 /min MD Shaikh Schultz Work Phone: [facility] 06-23-2022 11:26-0400 SaO2% (BldA) [Mass fraction] 96 % MD Shaikh Schultz Work Phone: [facility] 06-23-2022 11:26-0400 Systolic blood pressure 123 mm[Hg] MD Shaikh Schultz Work Phone: [facility] 06-23-2022 08:03-0400 Inhaled oxygen flow rate 1 L/min MD Shaikh Schultz Work Phone: [facility] 06-23-2022 06:00-0400 Body weight 136.4 kg MD Shaikh Schultz Work Phone: [facility] 06-22-2022 14:39-0400 Body height 172.72 cm MD Shaikh Schultz Work Phone: [facility] 06-22-2022 00:00-0400 45 1 Shaikh Marion Work Phone: [facility] DO Work Phone: Comment on above: [id number] Encounters Encounter Date Encounter Type Care Provider Facility Start: 11-09-2024 End: 11-10-2024 Refill Ирина Brown NP Work Phone: [facility] Comment on above: Hypomagnesemia; Type 2 diabetes mellitus without complications (HCC) Start: 10-31-2024 End: 10-31-2024 Bamboo flowsheet Ирина Dorethaguillermoevans SHEET TAKER Work Phone: [facility] Start: 10-31-2024 End: 10-31-2024 Bamboo flowsheet Ирина Santanajaninaz SHEET TAKER Work Phone: [facility] Start: 10-31-2024 End: 10-31-2024 Office outpatient visit 25 minutes Ирина Santanaevans SHEET TAKER Work Phone: [facility] Comment on above: Essential hypertensi on (Primary Dx); Type 2 diabetes mellitus with diabetic polyneuropathy, without long-term current use of insulin (HCC); Longstanding persistent atrial fibrillation (HCC); Pulmonary embolism, unspecified chronicity, unspecified pulmonary embolism type, unspecified whether acute cor pulmonale present (HCC); Chronic diastolic (congestive) heart failure (HCC); Chronic kidney disease, stage 3b ([facility]-HCC); Type 2 diabetes mellitus with stage 3b chronic kidney disease, without long-term current use of insulin (HCC); Morbid (severe) obesity due to excess calories ([facility]-HCC); Acquired hypothyroidism ; Diarrhea, unspecified type Start: 10-31-2024 End: 10-31-2024 ambulatory ИРИНА AICHHOLZ Not Available Start: 10-18-2024 End: 10-18-2024 Office outpatient visit 25 minutes [facility] DO Work Phone: [facility] Comment on above: ASHD (arteriosclerot ic heart disease); History of coronary artery bypass graft; History of non-ST elevation myocardial infarction (NSTEMI); Other pulmonary embolism without acute cor pulmonale, unspecified chronicity (Multi); Factor V Leiden (Multi); Statin intolerance; Atrial fibrillation, unspecified type (Multi); Type 2 diabetes mellitus without complication, without long-term current use of insulin; Never smoked tobacco; Congestive heart failure, unspecified HF chronicity, unspecified heart failure type Start: 10-18-2024 End: 10-18-2024 ambulatory [facility] Start: 10-11-2024 End: 10-11-2024 Refill Ирина Aichholz SHEET TAKER Work Phone: [facility] Comment on above: Hypothyroidism, unsp ecified ; Type 2 diabetes mellitus with diabetic chronic kidney disease (HCC); Hyperuricemia without signs of inflammatory arthritis and tophaceous disease; Type 2 diabetes mellitus without complications (HCC) Start: 09-15-2024 End: 09-15-2024 Clinisync Result Encounter Ирина Kevin SHEET TAKER Work Phone: [facility] External Department Unsolicited Start: 09-15-2024 End: 09-15-2024 Clinisync Result Encounter Ирина Dorethaguillermojaninaz SHEET TAKER Work Phone: [facility] External Department Unsolicited Start: 09-15-2024 End: 09-15-2024 Refill Ирина Tomasz SHEET TAKER Work Phone: [facility] Comment on above: Hypomagnesemia (Prim salima Dx) Start: 08-29-2024 End: 08-29-2024 Bamboo flowsheet Ирина Kevin SHEET TAKER Work Phone: [facility] Start: 08-29-2024 End: 08-29-2024 Bamboo flowsheet Ирина Dorethaguillermoevans SHEET TAKER Work Phone: [facility] Start: 08-29-2024 End: 08-29-2024 Patient encounter procedure Ирина Kevin SHEET TAKER Work Phone: [facility] Comment on above: Medicare [facility], subsequent (Primary Dx); Type 2 diabetes mellitus with stage 3b chronic kidney disease, without long-term current use of insulin (HCC) ([facility]/HCC); Morbid (severe) obesity due to excess calories (CMS/HCC); Acquired hypothyroidism (CMS/HCC); Essential hypertension (CMS/HCC); Chronic diastolic (congestive) heart failure; Coronary artery disease involving paimiut coronary artery of paimiut heart without angina pectoris (CMS/HCC); Type 2 diabetes mellitus with diabetic polyneuropathy, without long-term current use of insulin ([facility]); Hypomagnesemia Start: 08-29-2024 End: 08-29-2024 ambulatory ИРИНА AICHHOLZ Not Available Start: 07-10-2024 End: 07-10-2024 Refill Fabricio Edouard MD Work Phone: [facility] Comment on above: Unspecified atrial f ibrillation (CMS/HCC) Start: 07-06-2024 End: 07-08-2024 Clinisync Result Encounter Generic External Data Provider [facility] External Department Unsolicited Start: 07-06-2024 End: 07-08-2024 Clinisync Result Encounter Generic External Data Provider [facility] External Department Unsolicited Start: 07-06-2024 End: 07-06-2024 ambulatory Alfonso Kendrick Facility:[facility] Start: 07-06-2024 End: 07-06-2024 Departed Referred Emilie Meza SHEET TAKER-C Work Phone: [facility] Start: 05-25-2024 End: 05-25-2024 Bamboo flowsheet Ирина Brown SHEET TAKER Work Phone: [facility] Start: 05-25-2024 End: 05-25-2024 Bamboo flowsheet Ирина Brown SHEET TAKER Work Phone: [facility] Start: 05-25-2024 End: 05-25-2024 Office outpatient visit 25 minutes Ирина Brown SHEET TAKER Work Phone: [facility] Comment on above: 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 ([facility]/HCC) (Primary Dx); Type 2 diabetes mellitus with diabetic cataract ([facility]/HCC); Chronic diastolic (congestive) heart failure ([facility]/HCC); Chronic kidney disease, stage 3b (HCC) ([facility]/HCC); Type 2 diabetes mellitus with diabetic polyneuropathy ([facility]/HCC); 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 elsewhere ([facility]/HCC); Chronic lymphocytic leukemia of B-cell type not having achieved remission ([facility]/HCC); Hairy cell leukemia, in remission ([facility]/HCC); Unspecified atrial fibrillation (CMS/HCC); Morbid (severe) obesity due to excess calories (CMS/HCC); Body mass index (BMI) 40.0-44.9, adult ([facility]/HCC); Cardiomyopathy, ischemic ([facility]/HCC); Coronary artery disease involving paimiut coronary artery of paimiut heart without angina pectoris (CMS/HCC); Essential hypertension ([facility]/HCC); Acquired hypothyroidism ([facility]/HCC); Factor V Leiden mutation ([facility]/HCC); Statin intolerance; Hyperuricemia without signs of inflammatory arthritis and tophaceous disease Start: 05-25-2024 End: 05-25-2024 ambulatory ИРИНА BROWN Not Available Start: 04-17-2024 End: 04-17-2024 Clinisync Result Encounter Emilie Meza SHEET TAKER Work Phone: [facility] External Department Unsolicited Start: 04-17-2024 End: 04-17-2024 Clinisync Result Encounter Emilie Meza SHEET TAKER Work Phone: [facility] External Department Unsolicited Start: 04-05-2024 End: 04-05-2024 Refill Emilie Meza SHEET TAKER Work Phone: [facility] Comment on above: Type 2 diabetes mary itus without complications ([facility]/HCC) Start: 02-28-2024 End: 02-28-2024 Refill Emilie Meza SHEET TAKER Work Phone: [facility] Comment on above: 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; Type 2 diabetes mellitus without complications ([facility]/HCC) 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 ([facility]/HCC) Hypothyroidism, unsp ecified ([facility]/HCC); Unspecified atrial fibrillation ([facility]/HCC) Start: 01-25-2024 End: 01-25-2024 Bamboo flowsheet Emilie Meza SHEET TAKER Work Phone: [facility] Start: 01-25-2024 End: 01-25-2024 Bamboo flowsheet Emilie Meza SHEET TAKER Work Phone: [facility] Start: 01-25-2024 End: 01-25-2024 Office outpatient visit 15 minutes Emilie Meza SHEET TAKER Work Phone: [facility] Comment on above: 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, without long-term current use of insulin (HCC) (CMS/HCC) (Primary Dx); Essential hypertension (CMS/HCC); Acquired hypothyroidism (CMS/[facility]); Need for influenza vaccination Start: 01-25-2024 End: 01-25-2024 ambulatory EMILIE MEZA Not Available Start: 01-10-2024 End: 01-10-2024 Transitional care manage srvc 14 day discharge Emilie Meza SHEET TAKER Work Phone: [facility] Comment on above: Longstanding persist ent atrial fibrillation (CMS/HCC) (Primary Dx) Start: 01-10-2024 End: 01-10-2024 ambulatory EMILIE MEZA Not Available Start: 12-28-2023 End: 12-28-2023 Refill Emilie Meza SHEET TAKER Work Phone: [facility] Comment on above: Unspecified atrial f ibrillation ([facility]/HCC) Start: 12-25-2023 End: 12-28-2023 Evaluation and management of inpatient DO Ren Mohan Work Phone: [facility] Work Phone: Start: 04-12-2023 Patient encounter procedure Emilie Meza SHEET TAKER Work Phone: [facility] Start: 09-30-[address] Joseluis Casey Facility: Start: 09-11-2022 Rx Renewal Shaikh Marion Work Phone: [facility] DO Work Phone: Start: 07-27-2022 ambulatory JOSELUIS CASEY Facilit y:[id number] Start: 07-23-2022 ambulatory JOSELUIS CASEY Facilit y:[id number] Start: 07-01-2022 Office outpatient vi sit 40 minutes Shaikh Marion Work Phone: [facility] DO Work Phone: Start: 07-01-[address] Shaikh Schultz Facil ity: Start: 06-29-2022 End: 06-29-2022 ambulatory MD Shaikh Schultz Work Phone: [facility] Work Phone: Start: 06-29-2022 End: 06-29-2022 Departed Referred MD Shaikh Schultz Work Phone: [facility] Work Phone: Start: 06-23-[address] Joseluis Casey Facility:[id number] Start: 06-22-[address] Joseluis Casey Fac ility:[id number] Start: 06-22-2022 End: 06-23-2022 Evaluation and management of inpatient MD Shaikh Schultz Work Phone: [facility] Work Phone: Start: 06-22-[address] Joseluis Casey Facility:[id number] Start: 06-21-2022 End: 06-22-[address] JAYY Hinojosa Facility: Start: 12-29-2021 End: 12-30-2021 ambulatory SHAIKH Guillermo SCHULTZ Facility:H1 Start: 09-29-2021 End: 09-30-2021 ambulatory SHAIKH Guillermo SCHULTZ Facility:H1 Start: 06-30-2021 End: 07-01-2021 ambulatory SHAIKH Guillermo SCHULTZ Facility:H1 Start: 04-06-2018 End: 04-10-2018 Evaluation and management of inpatient SUNILRAYMOND GLORIA Facility:[facility] Start: 11-05-2017 End: 11-06-2017 Patient encounter Darrian Benton Facility:[facility] [place] [facility] Procedures Date Procedure Procedure Detail Performing Clinician Start: 09-15-2024 ALL CBC WITH AUTO DIFF Ирина Aichjaninaz SHEET TAKER Work Phone: Start: 08-29-2024 Hemoglobin glycosyla ruma a1c Ирина Aichjaninachina SHEET TAKER Work Phone: Start: 07-06-2024 URINE CULTURE - [facility] [place] [place] Ge neric External Data Provider Start: 04-17-2024 ALL CBC WITH AUTO DIFF Emilie Meza SHEET TAKER Work Phone: Start: 12-26-2023 Duplex scan of lower limb veins DO Ren Mohan Work Phone: Start: 12-26-2023 Plain chest X-ray DO Lou Mohan Work Phone: Start: 12-25-2023 Respiratory Panel (PCR) DO Ren Mohan Work Phone: Start: 10-19-2023 History of percutane ous transluminal coronary angioplasty History of PTCA Joseluis Casey DO Work Phone: Start: 06-02-2023 History of coronary artery bypass grafting History of coronary artery bypass graft Joseluis Casey DO Work Phone: Start: 02-09-2022 History of coronary artery bypass grafting History of coronary artery bypass graft Emilie Meza SHEET TAKER Work Phone: Start: 03-22-2019 Total colonoscopy Shaik [...] PLE CORONARY ARTERIES USING OTH CONTRAST JANE V MOUKARBEL Appendectomy Shaikh Marion Work Phone: History of coronary artery bypass grafting History of coronary artery bypass graft Shaikh Marion Work Phone: History of coronary artery bypass grafting History of coronary artery bypass graft Joseluis Casey DO Work Phone: History of placement of stent for coronary artery disease History of heart artery stent MD Shaikh Schultz Work Phone: Comment on above: March 2018- [facility] clean-up per request of Phys. EHR Cmte Insertion of inferio r vena caval filter Shaikh Marion Work Phone: Plan of Treatment Date Care Activity Detail Author Start: 10-22-2025 End: 10-22-2025 Patient encounter procedure 10/22/2025 10:00 AM EDT Office Visit [facility] [address] [place] [id number] Mackenzie Zhang, RESISTOR TESTING MACHINE OPERATOR-RELIGIOUS ASSISTANT [address] [place] [address] [facility] Start: 10-03-2025 Glaucoma screening Diabetes: Retinopathy Screening [facility] Start: 09-04-2025 End: 09-04-2025 Patient encounter procedure 09/04/2025 10:00 AM EDT Office Visit [facility] [address] [place] [phone] Ирина Brown NP [address] [place] [id number] [facility] Start: 08-29-2025 Medicare Annual Wellness (AWV) Medicare Annual Wellness (AWV) [facility] Start: 04-17-2025 Urine screening for protein Diabetes: Urine Protein Screening [facility] Start: 01-01-2025 End: 01-01-2025 Patient encounter procedure 01/01/2025 9:20 AM EDT Office Visit [facility] [address] [place] [address] Ирина Brown NP [address] [place] [phone] [facility] Start: 12-24-2024 Echocardiography [facility] Start: 11-29-2024 Hemoglobin A1c measurement Diabetes: Hemoglobin A1C [facility] Start: 11-20-2024 Influenza vaccination Influenza Vaccine (#1) [facility] Start: 10-31-2024 End: 10-31-2024 Patient encounter procedure [facility] Comment on above: Type 2 diabetes mellitus with diabetic p olyneuropathy, without long-term current use of insulin (HCC) (Primary Dx); Longstanding persistent atrial fibrillation (HCC); Pulmonary embolism, unspecified chronicity, unspecified pulmonary embolism type, unspecified whether acute cor pulmonale present (HCC); Essential hypertension ; Chronic diastolic (congestive) heart failure (HCC); Chronic kidney disease, stage 3b ([facility]-HCC); Type 2 diabetes mellitus with stage 3b chronic kidney disease, without long-term current use of insulin (HCC); Morbid (severe) obesity due to excess calories ([facility]); Acquired hypothyroidism Start: 10-15-2024 End: 09-15-2025 Magnesium [Mass/volume] in Serum or Plasma Magnesium Lab Routine Hypomagnesemia Expected: 10/15/2024 (Approximate), Expires: 09/15/2025 [facility] [place] Work Phone: Comment on above: Expected: 10/15/2024 (Approximate), Expi res: 09/15/2025 Start: 09-19-2024 End: 08-29-2025 Magnesium [Mass/volume] in Serum or Plasma Magnesium Lab Routine Hypomagnesemia Expected: 09/19/2024 (Approximate), Expires: 08/29/2025 [facility] Comment on above: Expected: 09/19/2024 (Approximate), Expi res: 08/29/2025 Start: 08-29-2024 End: 08-29-2025 CBC W Auto Differential panel - Blood CBC and differential Lab Routine Type 2 diabetes mellitus with stage 3b chronic kidney disease, without long-term current use of insulin (HCC) ([facility]) Expected: 08/29/2024 (Approximate), Expires: 08/29/2025 [facility] [place] Work Phone: Comment on above: Expected: 08/29/2024 (Approximate), Expi res: 08/29/2025 Start: 08-29-2024 End: 08-29-2025 Comprehensive metabolic 2000 panel - Serum or Plasma Comprehensive metabolic panel Lab Routine Essential hypertension (CMS/HCC) Chronic diastolic (congestive) heart failure Coronary artery disease involving paimiut coronary artery of paimiut heart without angina pectoris (CMS/HCC) Type 2 diabetes mellitus with diabetic polyneuropathy, without long-term current use of insulin (CMS/HCC) Expected: 08/29/2024 (Approximate), Expires: 08/29/2025 [facility] Comment on above: Expected: 08/29/2024 (Approximate), Expi res: 08/29/2025 Start: 08-29-2024 End: 08-29-2025 Ferritin [Mass/volume] in Serum or Plasma Ferritin Lab Routine Type 2 diabetes mellitus with stage 3b chronic kidney disease, without long-term current use of insulin (HCC) (CMS/HCC) Expected: 08/29/2024 (Approximate), Expires: 08/29/2025 [facility] Comment on above: Expected: 08/29/2024 (Approximate), Expi res: 08/29/2025 Start: 08-29-2024 End: 08-29-2025 Iron + transferrin + TIBC Iron + transferrin + TIBC Lab Routine Type 2 diabetes mellitus with stage 3b chronic kidney disease, without long-term current use of insulin (HCC) ([facility]/HCC) Expected: 08/29/2024 (Approximate), Expires: 08/29/2025 [facility] Comment on above: Expected: 08/29/2024 (Approximate), Expi res: 08/29/2025 Start: 08-29-2024 End: 08-29-2025 Lipid 1996 panel - Serum or Plasma Lipid panel Lab Routine Coronary artery disease involving paimiut coronary artery of paimiut heart without angina pectoris (CMS/HCC) Expected: 08/29/2024 (Approximate), Expires: 08/29/2025 [facility] Comment on above: Expected: 08/29/2024 (Approximate), Expi res: 08/29/2025 Start: 08-29-2024 End: 08-29-2025 Magnesium [Mass/volume] in Serum or Plasma Magnesium Lab Routine Type 2 diabetes mellitus with stage 3b chronic kidney disease, without long-term current use of insulin (HCC) ([facility]/HCC) Expected: 08/29/2024 (Approximate), Expires: 08/29/2025 [facility] Comment on above: Expected: 08/29/2024 (Approximate), Expi res: 08/29/2025 Start: 08-29-2024 End: 08-29-2025 Parathyrin.intact [Mass/volume] in Serum or Plasma PTH, intact Lab Routine Type 2 diabetes mellitus with stage 3b chronic kidney disease, without long-term current use of insulin (HCC) ([facility]/HCC) Expected: 08/29/2024 (Approximate), Expires: 08/29/2025 [facility] Comment on above: Expected: 08/29/2024 (Approximate), Expi res: 08/29/2025 Start: 08-29-2024 End: 08-29-2025 Phosphate [Moles/volume] in Serum or Plasma Phosphorus Lab Routine Type 2 diabetes mellitus with stage 3b chronic kidney disease, without long-term current use of insulin (HCC) (CMS/HCC) Expected: 08/29/2024 (Approximate), Expires: 08/29/2025 [facility] Comment on above: Expected: 08/29/2024 (Approximate), Expi res: 08/29/2025 Start: 08-29-2024 End: 08-29-2025 Urinalysis complete panel - Urine Urinalysis with reflex microscopic (clean catch) Lab Routine Type 2 diabetes mellitus with stage 3b chronic kidney disease, without long-term current use of insulin (HCC) (CMS/HCC) Essential hypertension (CMS/HCC) Type 2 diabetes mellitus with diabetic polyneuropathy, without long-term current use of insulin (CMS/HCC) Expected: 08/29/2024 (Approximate), Expires: 08/29/2025 [facility] Comment on above: Expected: 08/29/2024 (Approximate), Expi res: 08/29/2025 Start: 08-29-2024 End: 08-29-2024 Patient encounter procedure [facility] Comment on above: Medicare annual wellness visit, daniel nt (Primary Dx); Type 2 diabetes mellitus with stage 3b chronic kidney disease, without long-term current use of insulin (HCC) (CMS/HCC); Morbid (severe) obesity due to excess calories (CMS/HCC); Acquired hypothyroidism (CMS/HCC); Essential hypertension (CMS/HCC); Chronic diastolic (congestive) heart failure; Coronary artery disease involving paimiut coronary artery of paimiut heart without angina pectoris (CMS/HCC); Type 2 diabetes mellitus with diabetic polyneuropathy, without long-term current use of insulin (CMS/HCC) Start: 07-16-2024 Hemoglobin A1c measurement Diabetes: Hemoglobin A1C [facility] Start: 07-06-2024 Bacteria identified in Urine by Culture Urine Culture [facility] Start: 07-06-2024 Urine culture [facility] Start: 05-25-2024 End: 05-25-2024 Patient encounter procedure 05/25/2024 10:30 AM EST Office Visit [facility] [address] [place] [address] Ирина Brown NP [address] [place] [address] Cardiomyopathy, ischemic (CMS/HCC) (Primary Dx); 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/HCC); Chronic diastolic (congestive) heart failure (CMS/HCC); 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/HCC); Chronic kidney disease, stage 3b (HCC) ([facility]/HCC); 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); 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 elsewhere (CMS/HCC); 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); Hairy cell leukemia, in remission (CMS/HCC); Unspecified atrial fibrillation (CMS/HCC); Morbid (severe) obesity due to excess calories (CMS/HCC); Body mass index (BMI) 40.0-44.9, adult (CMS/HCC); Coronary artery disease involving paimiut coronary artery of paimiut heart without angina pectoris (CMS/HCC); Essential hypertension (CMS/HCC); Acquired hypothyroidism (CMS/HCC); Factor V Leiden mutation (CMS/HCC); Statin intolerance [facility] Comment on above: Cardiomyopathy, ischemic (CMS/HCC) (Prim salima Dx); 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/HCC); Chronic diastolic (congestive) heart failure (CMS/HCC); 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/HCC); Chronic kidney disease, stage 3b (HCC) ([facility]/HCC); Type 2 diabetes mellitus with diabetic polyneuropathy ([facility]/HCC); 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 elsewhere ([facility]/HCC); Chronic lymphocytic leukemia of B-cell type not having achieved remission ([facility]/HCC); Hairy cell leukemia, in remission ([facility]/HCC); Unspecified atrial fibrillation (CMS/HCC); Morbid (severe) obesity due to excess calories ([facility]/HCC); Body mass index (BMI) 40.0-44.9, adult ([facility]/HCC); Coronary artery disease involving paimiut coronary artery of paimiut heart without angina pectoris ([facility]/HCC); Essential hypertension ([facility]/HCC); Acquired hypothyroidism ([facility]/HCC); Factor V Leiden mutation ([facility]); Statin intolerance Start: 05-01-2024 End: 05-01-2024 Patient encounter procedure 05/01/2024 9:00 AM EST Office Visit [facility] [address] [place] [address] Emilie Meza NP [address] [place] [address] [facility] Start: 04-12-2024 Medicare Annual Wellness (AWV) Medicare Annual Wellness (AWV) [facility] Start: 04-12-2024 Pneumococcal Vaccine: 65+ Years (2 of 2 - PCV) Pneumococcal Vaccine: 65+ Years (2 of 2 - PCV) [facility] Comment on above: Postponed from 03/22/2003 (Patient Refus ed) Start: 02-14-2024 Influenza vaccination Influenza Vaccine (#1) [facility] Comment on above: Postponed from 11/21/2023 (Patient Ill T gurpreet) Start: 01-25-2024 End: 01-24-2025 CBC W Auto Differential panel - Blood CBC and differential Lab Routine Type 2 diabetes mellitus with stage 3a chronic kidney disease, without long-term current use of insulin (HCC) ([facility]) Essential hypertension ([facility]/HCC) Expected: 01/25/2024 (Approximate), Expires: 01/24/2025 [facility] Comment on above: Expected: 01/25/2024 (Approximate), Expi res: 01/24/2025 Start: 01-25-2024 End: 01-24-2025 Comprehensive metabolic 2000 panel - Serum or Plasma Comprehensive metabolic panel Lab Routine Type 2 diabetes mellitus with stage 3a chronic kidney disease, without long-term current use of insulin (HCC) (CMS/HCC) Essential hypertension (CMS/HCC) Expected: 01/25/2024 (Approximate), Expires: 01/24/2025 [facility] Comment on above: Expected: 01/25/2024 (Approximate), Expi res: 01/24/2025 Start: 01-25-2024 End: 01-24-2025 Hemoglobin A1c/Hemoglobin.total in Blood Hemoglobin A1c Lab Routine Type 2 diabetes mellitus with stage 3a chronic kidney disease, without long-term current use of insulin (HCC) (CMS/HCC) Essential hypertension (CMS/HCC) Expected: 01/25/2024 (Approximate), Expires: 01/24/2025 [facility] Comment on above: Expected: 01/25/2024 (Approximate), Expi res: 01/24/2025 Start: 01-25-2024 End: 01-24-2025 TSH W/REFLEX TO FT4 TSH W/REFLEX TO FT4 Lab Routine Acquired hypothyroidism (CMS/HCC) Expected: 01/25/2024 (Approximate), Expires: 01/24/2025 [facility] Comment on above: Expected: 01/25/2024 (Approximate), Expi res: 01/24/2025 Start: 01-25-2024 End: 01-25-2024 Patient encounter procedure [facility] Comment on above: Arrived Start: 01-10-2024 End: 01-10-2024 Patient encounter procedure 01/10/2024 11:00 AM EDT Office Visit [facility] [address] [place] [address] Emilie Meza NP [address] [place] [address] [facility] Start: 12-28-2023 [facility] Start: 12-25-2023 Blood culture for bacteria, including anaerobic screen Blood Culture [facility] Start: 12-25-2023 Hospital admission [facility] Start: 11-21-2023 COVID-19 Vaccine ( season) COVID-19 Vaccine ( season) [facility] Start: 11-21-2023 Influenza vaccination Influenza Vaccine (#1) [facility] Start: 04-20-2023 Hemoglobin A1c measurement Diabetes: Hemoglobin A1C [facility] Start: 09-30-2022 FUV, Provider: Joseluis Casey, Status: Pen, Time: 9:20 AM FUV, Provider: Joseluis Casey, Status: Pen, Time: 9:20 AM -[facility] [address] DO Work Phone: Start: 07-27-2022 REST ONLY, Provider: AQUILINO HHVI NUCLEAR 01,[id number], Status: Pen, Time: 1:00 PM REST ONLY, Provider: AQUILINO HHVI NUCLEAR 01,[id number], Status: Pen, Time: 1:00 PM [facility] [address] DO Work Phone: Start: 07-23-2022 STRESSNUC2, Provider: AQUILINO HHVI NUCLEAR 01,[id number], Status: Pen, Time: 1:00 PM STRESSNUC2, Provider: AQUILINO HHVI NUCLEAR 01,[id number], Status: Pen, Time: 1:00 PM [facility] [address] DO Work Phone: Start: 06-23-2022 [facility] Start: 06-22-2022 Hospital admission [facility] Start: 2012 RSV High Risk: (Elderly (60+) or Population) (1 - 1-dose 75+ series) RSV High Risk: (Elderly (60+) or Population) (1 - 1-dose 75+ series) [facility] Start: 03-22-2003 Pneumococcal vaccination Pneumococcal Vaccine (2 of 2 - PCV) [facility] Start: 03-22-2003 Pneumococcal Vaccine: 65+ Years (2 of 2 - PCV) Pneumococcal Vaccine: 65+ Years (2 of 2 - PCV) [facility] Start: 2002 Screening for osteoporosis Bone Density Scan [facility] Start: 07-19-1959 DTaP/Tdap/Td Vaccines (1 - Tdap) DTaP/Tdap/Td Vaccines (1 - Tdap) [facility] Start: 1956 Urine screening for protein Diabetes: Urine Protein Screening [facility] Start: 1956 Zoster Vaccines (1 of 2) Zoster Vaccines (1 of 2) [facility] Start: 07-19-1947 Glaucoma screening Diabetes: Retinopathy Screening [facility] Start: 1937 Creatinine measurement Creatinine Level [facility] Start: 1937 Hemoglobin A1c measurement Diabetes: Hemoglobin A1C [facility] Start: 1937 Lipid panel Lipid Panel [facility] Start: 1937 Medicare Annual Wellness Visit Medicare Annual Wellness Visit (AWV) [facility] Start: 1937 Potassium measurement Potassium Level [facility] Start: 1937 Thyroid stimulating hormone measurement TSH Level [facility] Start: 1937 Urine screening for protein Diabetes: Urine Protein Screening [facility] Blood chemistry [facility] Microalbumin/Creatin ine panel in random Urine Microalbumin / creatinine urine ratio Lab Routine Type 2 diabetes mellitus with stage 3a chronic kidney disease, without long-term current use of insulin (HCC) ([facility]/HCC) Essential hypertension ([facility]/HCC) Ordered: 01/25/2024 [facility] Work Phone: Comment on above: Ordered: 01/25/2024 Patient Education [facility] Work Phone: Patient referral [facility] Work Phone: URINE CULTURE - [facility] [place] URINE CULTU RE - [facility] [place] Lab Routine 07/06/2024 1:52 PM EDT [facility] Immunizations Immunization Date Immunization Notes Care Provider Birgit peñaloza 01-25-2024 Influenza, injectabl e, Madin Brenda Canine Kidney, preservative free, quadrivalent Emilieenma Meza [employer] T[employer]ER Work Phone: [facility] 01-25-2024 influenza virus vaccine, unspecified formulation Ирина Santanaholz SHEET TAKER Work Phone: [facility] 01-21-2021 Moderna COVID-19 Vaccine 100 MCG/0.5ML Intramuscular Suspension [employer] Work Phone: [facility] 250 DO Work Phone: 12-31-2020 Seasonal trivalent influenza vaccine, adjuvanted, preservative free [employer] Work Phone: [facility] 250 DO Work Phone: 12-31-2020 influenza virus vaccine, unspecified formulation Emilie Meza SHEET TAKER Work Phone: [facility] 05-21-2020 Moderna COVID-19 Vaccine 100 MCG/0.5ML Intramuscular Suspension [employer] Work Phone: [facility] 250 DO Work Phone: 04-23-2020 Moderna COVID-19 Vaccine 100 MCG/0.5ML Intramuscular Suspension [employer] Work Phone: [place] [address] DO Work Phone: 12-28-2019 Seasonal trivalent influenza vaccine, adjuvanted, preservative free [employer] Work Phone: [facility] 250 DO Work Phone: 01-18-2019 Seasonal trivalent influenza vaccine, adjuvanted, preservative free [employer] Work Phone: [facility] 250 DO Work Phone: 02-01-2018 Seasonal trivalent influenza vaccine, adjuvanted, preservative free [employer] Work Phone: [facility] 250 DO Work Phone: 01-07-2017 Seasonal trivalent influenza vaccine, adjuvanted, preservative free [employer] Work Phone: [facility] 250 DO Work Phone: 02-26-2014 influenza, injectabl e, quadrivalent, contains preservative [employer] [facility] Work Phone: 12-26-2012 influenza, seasonal, injectable [employer] Work Phone: [facility] Work Phone: 03-22-2002 pneumococcal polysaccharide vaccine, 23 valent [employer] [place] [facility] Work Phone: Comment on above: Series: Payers Date Payer Category Payer Self-pay [id number] 2023 Managed Care (Private) [facility] [id number] 2022 Private Health Insurance [id number] 2002 Medicare [id number] 1959 Medicare [id number] 1959 Unknown [id number] 1937 Unknown [id number] 2.16.840.1.763365.3.579. 2.647 1937 Unknown [id number] 2.16.840.1.448775.3.579. 2.593 1937 Unknown [id number] 2.16.840.1.622057.3.579. 2.593 1937 Unknown [id number] 2.16.840.1.125298.3.579. 2.593 1937 Unknown [id number] 2.16.840.1.990566.3.579. 2.593 1937 Unknown [id number] 2.16.840.1.257062.3.579. 2.1068 1937 Unknown [id number] 2.16.840.1.727013.3.579. 2.1068 1937 Unknown [id number] 2.16.840.1.780712.3.579. 2.356 1937 Unknown [id number] 2.16.840.1.101227.3.579. 2.356 1937 Unknown [id number] 2.16.840.1.807341.3.579. 2.356 1937 Unknown [id number] 2.16.840.1.676523.3.579. 2.356 1937 Unknown [id number] 2.16.840.1.960789.3.579. 2.356 1937 Unknown [id number] 2.16.840.1.423842.3.579. 2.1244 1937 Unknown [id number] 2.16.840.1.761965.3.579. 2.1259 1937 Unknown [id number] 2.16.840.1.429289.3.579. 2.1259 1937 Unknown [id number] 2.16.840.1.540847.3.579. 2.1259 1937 Unknown [id number] 2.16.840.1.957577.3.579. 2.1259 1937 Unknown [id number] 2.16.840.1.955203.3.579. 2.1259 Medicare [id number] Unknown Unknown [id number] 2.16.840.1.031842.3.579. 2.531 Unknown [id number] 2.16.840.1.262852.3.579. 2.531 Social History Date Type Detail Facility Start: 06-22-2022 End: 12-25-2023 Tobacco smoking status GAIS Ex-smoker (finding) [facility] Start: 1935 Sex Assigned At Female F [facility] Start: 10-25-2023 End: 08-29-2024 Caffeine use Caffeine use -[facility] [employer] [employer] DO Work Phone: Comment on above: 2.5 cups coffee in m orning; Start: 10-19-2023 End: 10-25-2023 Tobacco smoking status [facility] Never smoked tobacco [facility] Start: 10-19-2023 End: 10-25-2023 Tobacco use and exposure Smokeless tobacco non-user [facility] Start: 10-25-2023 End: 10-31-2024 Alcoholic beverage intake Lifetime non-drinker (finding) [facility] Start: 10-25-2023 End: 08-29-2024 Tobacco use panel [facility] Start: 1935 Sex assigned at Not on file [facility] Start: 07-08-2024 Sex Female (finding) [facility] Start: 02-13-2022 Sex Female [facility] NEGATED: Highlighted rowStart: NINF History of tobacco use Passive smoker [facility] Medical Equipment Procedure Code Equipment Code Equipment Origin al Text Equipment Identifier Dates 1 each by Other route Daily Use as instructed [id number] Start: 10-31-2024 End: 02-08-2025 Goals Date Patient Goal Desired Activity /State Functional Status Date Assessment Result Facility 08-29-2024 Patient Health [facility] ionnaire 2 item (PHQ-2) [Reported] [facility] 12-28-2023 Functional status Patient at Baseline [facility] Work Phone: 06-23-2022 Functional status Patient at Baseline [facility] Work Phone: [facility] Mental Status Date Assessment Result Facility 12-28-2023 Cognitive function Cognitive Sta tus Patient at Baseline [facility] Work Phone: 06-23-2022 Cognitive function Cognitive Sta tus Patient at Baseline [facility] Work Phone: Clinical Notes 06-22-2022 to 10-31-2024 Ирина Brown NP - 10/31/2024 10:13 AM LIZETTE HARRISON - 10/31/2024 9:20 AM Andrew Brown NP - 10/31/2024 9:20 AM Andrew Brown NP - 10/31/2024 6:28 AM EDTPatient Instructions Note Date & Type Note Facility 10-31-2024 History of Present illness Narrative Associated Problem(s): Diarrhea Reports that has resolved, still not a lot of appetite, is drinking fluids and staying hydrated Will call with update on condition Pt has been sick for over a week- dizzy, lightheadedness, headaches in the sinuses and back of head, no vision issues, no sinus pressure, SOB, chest pressure, bloating, cramp/pain in mid to right upper quad, loss of appetite, no nausea, no vomiting, diarrhea, she did have a soft BM today, no cough, no ear issues. Very fatigue, gasping for air at times. Not on 02 Pt has been taking the magnesium bone and muscle health oxide OTC 250mg 1 daily, the 400mg prescription was giving her joint pain. Pt has not done magnesium lab Pt seen cardiology last Wednesday pt states that he told her that her Afib was jumping all over the place however she has a fu in 1 year Images from the original note were not included. Mohan Espinoza is a 89 y.o. female presents with chief complaint of Diabetes HPI: Pt has been sick for over a week- dizzy, lightheadedness, headaches in the sinuses and back of head, no vision issues, no sinus pressure, SOB, chest pressure, bloating, cramp/pain in mid to right upper quad, loss of appetite, no nausea, no vomiting, diarrhea, she did have a soft BM today, no cough, no ear issues. Very fatigue, gasping for air at times. Not on Pt has been taking the magnesium bone and muscle health oxide OTC 250mg 1 daily, the 400mg prescription was giving her joint pain. Pt has not done magnesium lab Pt seen cardiology last Wednesday pt states that he told her that her Afib was jumping all over the place however she has a fu in 1 year Overall she is starting to feel somewhat better yesterday and today SUBJECTIVE: MEDICATIONS: Current Outpatient Medications Medication Instructions allopurinol (ZYLOPRIM) 300 mg, Oral, Daily furosemide (LASIX) 40 mg, Oral, Daily glipiZIDE (GLUCOTROL) 10 mg, Oral, 2 times daily levothyroxine (SYNTHROID, LEVOXYL) 200 mcg, Oral, Daily magnesium oxide (MAG-OX) 400 mg, Daily metFORMIN (GLUCOPHAGE) 500 mg, Oral, 2 [...] SYMPTOMS: Review of Systems Constitutional: Positive for fatigue. Negative for appetite change, chills and fever. HENT: Negative for congestion, ear pain and sore throat. Eyes: Negative for pain, discharge, redness and visual disturbance. Respiratory: Negative for cough, shortness of breath and wheezing. Cardiovascular: Negative for chest pain, palpitations and leg swelling. Gastrointestinal: Positive for diarrhea. Negative for abdominal pain, blood in stool, constipation, nausea and vomiting. Genitourinary: Negative for difficulty urinating, dysuria and frequency. Musculoskeletal: Negative for arthralgias, back pain, joint swelling and myalgias. Skin: Negative for rash and wound. Neurological: Positive for dizziness. Negative for tremors, seizures, syncope and headaches. Psychiatric/Behavioral: Negative for behavioral problems, self-injury and suicidal ideas. The patient is not nervous/anxious. Hematological: Does not bruise/bleed easily. Endocrine: Negative for polydipsia, polyphagia and polyuria. Allergic/Immunologic: Negative for environmental allergies and food allergies. 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 (chronic lymphocytic leukemia) (HCC) Edema, unspecified type Factor 5 Leiden mutation, heterozygous ([facility]-HCC) Fatigue Gout History of DVT (deep vein thrombosis) History of non-Hodgkin's lymphoma HLD (hyperlipidemia) HTN (hypertension) Hypercholesteremia Hyperuricemia Hypothyroid Iron deficiency anemia Left ankle swelling Peripheral neuropathy S/P CABG (coronary artery bypass graft) Type 2 diabetes mellitus (HCC) Past Surgical History: Procedure Laterality Date APPENDECTOMY CARDIAC SURGERY Stents CORONARY ARTERY BYPASS GRAFT x4 OTHER SURGICAL HISTORY [place] [employer] family history includes Diabetes in an other family member; Heart disease in her mother; Hypertension in an other family member; Stroke in an other family member. OBJECTIVE: Visit Vitals BP 168/78 Pulse 80 Temp 97.8 F (Temporal) Resp 24 SpO2 93% OB Status Postmenopausal Smoking Status Never Physical [...] heard. Pulmonary: Effort: Pulmonary effort is normal. Breath sounds: Normal breath sounds. No wheezing or rhonchi. Abdominal: General: Bowel sounds are normal. There is no distension. Palpations: Abdomen is soft. There is no mass. Tenderness: There is no abdominal tenderness. Musculoskeletal: General: Normal range of motion. Cervical back: Normal range of motion and neck supple. Right lower leg: Edema present. Left lower leg: Edema present. Comments: Trace pedal bilat Skin: General: Skin is warm and dry. [...] List Items Addressed This Visit Acquired hypothyroidism Current med: levothyroxine Check labs yearly, and prn dose changes or changes in symptoms Unspecified atrial fibrillation (HCC) B jazmine and xarelto A fib today , rate controlled Essential hypertension Please check blood pressure daily and record DASH diet Limit caffeine Take medication as directed Contact office if chest pain, pressure, dizziness, shortness of breath, swelling legs Recommend slow position changes Current meds; diuretic, and b jazmine Elevated today, however perhaps some malabsorption of BP d/t recent diarrheal illness Recommend going home and check BP for next few days then call on with values May need an adjustment in dose, however last week at cardiology was normal Morbid (severe) obesity due to excess calories ([facility]) Discussed with patient their BMI (actual, verses recommended). We have also discussed lifestyle modifications: attempts to perform physical activity as chronic conditions allow, also to monitor dietary intake: increasing protein/fruits/veggies and lowering carb intake (unless contraindicated). Limit sodas, juices, and sugary drinks. Type 2 diabetes mellitus with diabetic chronic kidney disease (HCC) Check blood sugars daily, notify if <70 [...] yusef/arb, and no asa d/t Xarelto A1c: 6.4% 08/29/24 7% on 04/17/24 Relevant Medications glucose blood (Accu-Chek Dione Plus) test strip Blood Glucose Monitoring Suppl (Accu-Chek Dione Plus) w/Device kit Chronic diastolic (congestive) heart failure (HCC) On b jazmine, and diuretic\ Follows with cardiology in mobile Chronic kidney disease, stage 3b ([facility] Control blood pressure and blood sugars Check labs yearly and prn Type 2 diabetes mellitus with diabetic polyneuropathy (HCC) - Primary No current meds for this Recommend freq foot checks, proper fitting shoes Adequate blood sugar control Pulmonary embolism (HCC) On xarelto Diarrhea Reports that has resolved, still not a lot of appetite, is drinking fluids and staying hydrated Will call with update on condition Associated Problem(s): Factor V Leiden mutation ([facility]) On xarelto Associated Problem(s): Acquired hypothyroidism Current med: levothyroxine Check labs yearly, and prn dose changes or changes in symptoms Associated Problem(s): Morbid (severe) obesity due to excess calories ([facility] Discussed with patient their BMI (actual, verses recommended). We have also discussed lifestyle modifications: attempts to perform physical activity as chronic conditions allow, also to monitor dietary intake: increasing protein/fruits/veggies and lowering carb intake (unless contraindicated). Limit sodas, juices, and sugary drinks. Associated Problem(s): Type 2 diabetes mellitus with diabetic chronic kidney disease (HCC) Check blood sugars daily, notify if <70 [...] yusef/arb, and no asa d/t Xarelto A1c: 6.4% 08/29/24 7% on 04/17/24 Associated Problem(s): Chronic kidney disease, stage 3b ([facility]) Control blood pressure and blood sugars Check labs yearly and prn Associated Problem(s): Chronic diastolic (congestive) heart failure (HCC) On b jazmine, and diuretic\ Follows with cardiology in mobile Associated Problem(s): Essential hypertension Please check blood pressure daily and record DASH diet Limit caffeine Take medication as directed Contact office if chest pain, pressure, dizziness, shortness of breath, swelling legs Recommend slow position changes Current meds; diuretic, and b jazmine Elevated today, however perhaps some malabsorption of BP d/t recent diarrheal illness Recommend going home and check BP for next few days then call on with values May need an adjustment in dose, however last week at cardiology was normal Associated Problem(s): Pulmonary embolism (HCC) On xarelto Associated Problem(s): Unspecified atrial fibrillation (HCC) B jazmine and xarelto A fib today , rate controlled Associated Problem(s): Type 2 diabetes mellitus with diabetic polyneuropathy (HCC) No current meds for this Recommend freq foot checks, proper fitting shoes Adequate blood sugar control documented in this encounter [facility] 10-31-2024 Instructions Ирина Brown NP - 10/31/2024 9:20 AM EDT Check blood pressure at home for next 2 days and call me morning with results, we may need to adjust blood pressure meds Try to increase the magnesium supplement to 2 pills (500mg total) Magnesium, 3 weeks check the blood documented in this encounter [facility] 10-18-2024 History of Present illness Narrative Chief Complaint Patient presents with Annual Exam 1 year follow up for ASHD (arteriosclerotic heart disease) Subjective Mohan Espinoza is a 89 y.o. female 89-year-old female returns for annual cardiovascular follow-up and is doing well from a cardiovascular standpoint. She had a recent fall, and UTI and spent 1 month at [place] and now is back home, independent. She is here today in a wheelchair for ease of comfort but ambulating normally or near normally at home with a rollator. She denies any chest heaviness, pain or discomfort or shortness of breath. She does admit to irregular heart rhythm and on exam today she is clearly in atrial fibrillation with controlled response. She remains on Xarelto and metoprolol. Her underlying history is noted for ASHD with remote CABG, chronic atrial fibrillation, diabetes, obesity, factor V Leiden deficiency with previous pulmonary embolism. She is intolerant to all statins and is unwilling to try injectable therapies at this time. She had stress perfusion imaging July 2022 that was completely normal with normal left ventricular function She remains in persistent atrial fibrillation, ambulates primarily by means of rollator or wheelchair (today with wheelchair) due to unsteady gait, weakness and advanced age. She otherwise remains independent with her and alert and oriented Recommendations: Continue current therapies follow-up in 1 year with nurse practitioner Review of Systems Cardiovascular: Positive for dyspnea on exertion. All other systems reviewed and are negative. Vitals: 10/18/24 0948 BP: 134/82 BP Location: Left arm Patient Position: Sitting Pulse: 72 Height: 1.727 m (5' 8 ) Objective Physical Exam Constitutional: Appearance: Normal appearance. HENT: Nose: Nose normal. Neck: Vascular: No carotid bruit. Cardiovascular: Rate and Rhythm: Normal rate. Rhythm irregular. Pulses: Normal pulses. Heart sounds: Normal heart sounds. Pulmonary: Effort: Pulmonary effort is normal. Abdominal: General: Bowel sounds are normal. Palpations: Abdomen is soft. Musculoskeletal: General: Normal range of motion. Cervical back: Normal range of motion. Right lower leg: No edema. Left lower leg: No edema. Skin: General: Skin is warm and dry. Neurological: General: No focal deficit present. Mental Status: She is alert. Psychiatric: Mood and Affect: Mood normal. Behavior: Behavior normal. Thought Content: Thought content normal. Judgment: Judgment normal. Allergies Yusef inhibitors, Arb-angiotensin receptor antagonist, and Wgovxxd-hiu-jvu reductase inhibitors Current Medications Current Outpatient Medications Medication Instructions allopurinol (ZYLOPRIM) 300 mg, Daily furosemide (LASIX) 40 mg, Daily glipiZIDE XL (GLUCOTROL XL) 10 mg, 2 times daily levothyroxine (SYNTHROID, LEVOXYL) 200 mcg, Daily before breakfast metFORMIN (GLUCOPHAGE) 500 mg, 2 times daily (morning and late afternoon) metoprolol succinate XL (TOPROL-XL) 150 mg, oral, Daily, Do not crush or chew. rivaroxaban (XARELTO) 15 mg, Daily with evening meal Assessment/Plan 1. ASHD (arteriosclerotic heart disease) Follow Up In Cardiology 2. History of coronary artery bypass graft 3. History of non-ST elevation myocardial infarction (NSTEMI) 4. Other pulmonary embolism without acute cor pulmonale, unspecified chronicity (Multi) 5. Factor V Leiden (Multi) 6. Statin intolerance 7. Atrial fibrillation, unspecified type (Multi) 8. Type 2 diabetes mellitus without complication, without long-term current use of insulin 9. Never smoked tobacco 10. Congestive heart failure, unspecified HF chronicity, unspecified heart failure type Scribe Attestation By signing my name below, ISelena LPN, Scribe attest that this documentation has been prepared under the direction and in the presence of Joseluis Casey DO. Provider Attestation - Scribe documentation All medical record entries made by the Scribe were at my direction and personally dictated by me. I have reviewed the chart and agree that the record accurately reflects my personal performance of the history, physical exam, discussion and plan. documented in this encounter [facility] Work Phone: 10-18-2024 Instructions Selena Jones LPN - 10/18/2024 10:00 AM EDT Please bring all medicines, vitamins, and herbal supplements with you when you come to the office. Prescriptions will not be filled unless you are compliant with your follow up appointments or have a follow up appointment scheduled as per instruction of your physician. Refills should be requested at the time of your visit. Medical reason BMI was not measured. The following attachments cannot be sent through Care Everywhere.Quitting smoking (Nigerian)Heart Healthy Diet (Nigerian)documented in this encounter [facility] Work Phone: 08-29-2024 History of Present illness Narrative Associated Problem(s): Hypomagnesemia May try otc magnesium oxide 240 or 250mg Check labs in 3 weeks Pt [facility] a [facility]. Pt came [...] in the last year: yes [facility] Will: working that Concerns: discharged from [facility] SUBJECTIVE: MEDICATIONS: Current Outpatient Medications Medication Instructions [...] At moderate risk for fall Atrial fibrillation ([facility]) CAD (coronary atherosclerotic disease) ([facility]) CHF (congestive heart failure) ([facility]) Chronic diastolic heart failure ([facility]) 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) ([facility]) CLL (chronic lymphocytic leukemia) ([facility]) Edema, unspecified type Factor 5 Leiden mutation, heterozygous ([facility]) Fatigue Gout History of DVT (deep vein thrombosis) History of non-Hodgkin's lymphoma HLD (hyperlipidemia) ([facility]) HTN (hypertension) ([facility]) Hypercholesteremia ([facility]/HCC) Hyperuricemia Hypothyroid ([facility]) Iron deficiency anemia Left ankle swelling Peripheral neuropathy S/P CABG (coronary artery bypass graft) Type 2 diabetes mellitus Past Surgical History: Procedure Laterality Date APPENDECTOMY CARDIAC SURGERY Stents CORONARY ARTERY BYPASS GRAFT x4 OTHER SURGICAL HISTORY [place] [employer] family history includes Diabetes in an [...] and sugary drinks. Coronary artery disease involving paimiut coronary artery of paimiut heart without angina pectoris ([facility]) Unable to tolerate statin Does take b jazmine Relevant Orders Comprehensive metabolic panel Lipid panel Type 2 diabetes mellitus with diabetic chronic kidney disease ([facility]) Check blood sugars daily, notify if <70 [...] Type 2 diabetes mellitus with diabetic polyneuropathy ([facility]) No current meds for this Recommend freq foot checks, proper fitting shoes Adequate blood sugar control Relevant Orders Comprehensive metabolic panel Urinalysis with reflex microscopic (clean catch) Hypomagnesemia May try otc magnesium oxide 240 or 250mg Check labs in 3 weeks Relevant Orders Magnesium Associated Problem(s): Type 2 diabetes mellitus with diabetic polyneuropathy ([facility]) No current meds for this Recommend freq foot checks, proper fitting shoes Adequate blood sugar control Associated Problem(s): Coronary artery disease involving paimiut coronary artery of paimiut heart without angina pectoris ([facility]) Unable to tolerate statin Does take b jazmine Associated Problem(s): Chronic diastolic (congestive) heart failure On b jazmine, and diuretic Associated Problem(s): Essential hypertension ([facility]) Please check blood pressure daily and record DASH diet Limit caffeine Take medication as directed Contact office if chest pain, pressure, dizziness, shortness of breath, swelling legs Recommend slow position changes Current meds; diuretic, and b jazmine Associated Problem(s): Acquired hypothyroidism ([facility]) Current med: levothyroxine Check labs yearly, and prn dose changes or changes in symptoms Associated Problem(s): Morbid (severe) obesity due to excess calories ([facility]) Discussed with patient their BMI (actual, verses recommended). We have also discussed lifestyle modifications: attempts to perform physical activity as chronic conditions allow, also to monitor dietary intake: increasing protein/fruits/veggies and lowering carb intake (unless contraindicated). Limit sodas, juices, and sugary drinks. Associated Problem(s): Type 2 diabetes mellitus with diabetic chronic kidney disease ([facility]) Check blood sugars daily, notify if <70 [...] yearly and prn documented in this encounter [facility] 05-25-2024 History of Present illness Narrative 102 fasting glucose this morning [...] problems. Hypertensive end-organ damage includes kidney disease, CAD/IN and heart failure. 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) ([facility]) CLL (chronic lymphocytic leukemia) ([facility]) Edema, unspecified type Factor 5 Leiden mutation, heterozygous ([facility]) Fatigue Gout History of DVT (deep vein thrombosis) History of non-Hodgkin's lymphoma HLD (hyperlipidemia) ([facility]) HTN (hypertension) ([facility]) Hypercholesteremia ([facility]HCC) Hyperuricemia Hypothyroid ([facility]) Iron deficiency anemia Left ankle swelling Peripheral neuropathy S/P CABG (coronary artery bypass graft) Type 2 diabetes mellitus ([facility]) Past Surgical History: Procedure Laterality Date APPENDECTOMY CARDIAC SURGERY Stents CORONARY ARTERY BYPASS GRAFT x4 OTHER SURGICAL HISTORY [place] [employer] family history includes Diabetes in an [...] and sugary drinks. Coronary artery disease involving paimiut coronary artery of paimiut heart without angina pectoris (CMS/HCC) Unable to tolerate statin Does take b jazmine Factor V Leiden mutation ([facility]) On xarelto Type 2 diabetes mellitus with diabetic chronic kidney disease ([facility]) Check blood sugars daily, notify if <70 [...] Type 2 diabetes mellitus with diabetic cataract ([facility]) Chronic diastolic (congestive) heart failure ([facility]) On b jazmine, and diuretic Chronic kidney disease, stage 3b (HCC) ([facility]) Control blood pressure and blood sugars Check labs yearly and prn Type 2 diabetes mellitus with diabetic polyneuropathy ([facility]) No current meds for this Recommend freq foot checks, proper fitting shoes Adequate blood sugar control 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 elsewhere ([facility]) Body mass index (BMI) 40.0-44.9, adult ([facility]) Cardiomyopathy, ischemic ([facility]) - Primary Noted from cardiology Current meds: b jazmine, aldactone, diuretics Statin intolerance Other Visit Diagnoses Chronic lymphocytic leukemia of B-cell type not having achieved remission ([facility]) Hyperuricemia without signs of inflammatory arthritis and tophaceous disease Associated Problem(s): Factor V Leiden mutation ([facility]) On xarelto Associated Problem(s): Type 2 diabetes mellitus with diabetic chronic kidney disease ([facility]) Check blood sugars daily, notify if <70 [...] jazmine Associated Problem(s): Coronary artery disease involving paimiut coronary artery of paimiut heart without angina pectoris (CMS/HCC) Unable to tolerate statin Does take b jazmine Associated Problem(s): Chronic diastolic (congestive) heart failure (CMS/HCC) On b jazmine, and diuretic Associated Problem(s): Cardiomyopathy, ischemic (CMS/HCC) Noted from cardiology Current meds: b jazmine, aldactone, diuretics Associated Problem(s): Type 2 diabetes mellitus with diabetic polyneuropathy ([facility]) No current meds for this Recommend freq foot checks, proper fitting shoes Adequate blood sugar control documented in this encounter [facility] 05-25-2024 Instructions Ирина Brown NP - 05/25/2024 10:30 AM EST No changes in meds In 3 months medicare wellness documented in this encounter [facility] 01-25-2024 History of Present illness Narrative Associated Problem(s): Essential hypertension (CMS/HCC) [...] without long-term current use of insulin (HCC) ([facility]) Most recent labs: hemoglobin A1C Average FSBS [...] glucose monitoring noted. Associated Problem(s): Acquired hypothyroidism ([facility]) On levothyroxine. TSH needs checked. Labs ordered today. Associated Problem(s): Stage 3a chronic kidney disease (HCC) ([facility]) Most recent Creatinine: 1.28 eGFR 40 Continue [...] for influenza vaccination documented in this encounter [facility] 01-25-2024 Instructions Emilie Meza NP - 01/25/2024 9:00 AM EST FASTING labs ordered. Nothing to eat or drink for 12 hours prior to blood draw. Water and black coffee ok. Call if you need anything! documented in this encounter [facility] 01-10-2024 History of Present illness Narrative Associated Problem(s): Atrial fibrillation (CMS/HCC) Currently taking Eliquis. Was admitted to [facility] for NSTEMI 12/24 Echo ordered EF was 60%-65% [facility] discharged, believed troponin elevations were related to [...] Casey- Cardiology Hospital Follow-Up: Was admitted to [facility] for NSTEMI 12/24-12/27 Echo ordered EF was 60%-65% [facility] discharged, believed troponin elevations were related to [...] Primary Currently taking Eliquis. Was admitted to [facility] for NSTEMI 12/24 Echo ordered EF was 60%-65% [facility] discharged, believed troponin elevations were related to brief episode of Afib RVR No medication changes States she feels better presently, but is still fatigued. Follows with Dr. Casey- Cardiology; Has not made an appointment to follow up with Cards yet. Advised pt to do so. documented in this encounter [facility] 01-10-2024 Instructions Emilie Meza NP - 01/10/2024 11:00 AM EDT Follow up with Cardiology- Call office to schedule appointment Joseluis Vuong DO [address] [address] documented in this encounter [facility] 12-28-2023 Progress note Note Date/Time December 27, 2023 10:24pm [facility] [address] [place] [address] Hospitalist Progress Note Signed Patient: Mohan Espinoza MR#: [id number] : 1935 Acct:[id number] Age/Sex: 88 / F Adm Date: 4 Loc: Room: [address] [place] [address] Type: ADM IN Attending Dr: Nelson Orourke [...] 12/27/23 17:15 Rivaroxaban 15 Mg Tablet PO 10/05/25 16:59 15 mg DAILY@17 [facility] Administration A&P - Hospitalist Assessment/Plan (1) Type 2 IN (myocardial infarction): Plan Documented By: Nelson Orourke, 12/27/232221 Signed By: <Electronically signed by Nelson Orourke, DO> 12/27/232223 [facility] Work Phone: 1(833) 500-536010-06-2024 Progress note Author Apryl Shirley [facility] December 26, 2023 5:24pm Note Date/Time December 26, 2023 3: 47pm [facility] [address] [place] [address] Hospitalist Progress Note Signed Patient: Mohan Espinoza MR#: [id number] : 1935 Acct:[id number] Age/Sex: 88 / F Adm Date: 4 Loc: Room: [address] [place] [address] Type: ADM IN Attending Dr: Apryl Shirley MD Copies to: ~ Date of Service: 12/26/2023 Subjective Subjective Narrative: Assessment And Plan 88-year-old female with previously known history of atrial fibrillation, hypertension, CKD , diabetes and hyperlipidemia, Hypothyroidism She presented to [facility] () ER earlier this evening with initially reported shortness of breath type 2 myocardial infarction Rule out NSTEMI She denies any chest pain or worsening SOB during her stay HS-Troponin 50 ()> 200 () > 280 ([facility]) > 73 (today) LDL 115 EKG [...] 12/26/23 09:00 12/26/23 08:45 Aspirin 81 Mg Tablet. PO 12/25/24 08:59 [...] A&P - Hospitalist Assessment/Plan (1) Type 2 IN (myocardial infarction): Plan Documented By: Apryl Shirley MD 12/26/23 1540 Signed By: <Electronically signed by Apryl Shirley MD> 12/26/23 1724 [facility] Work Phone: 1(542) 179-273310-06-2024 Progress note Author Apryl Shirley [facility] December 25, 2023 11:11pm Note Date/Time December 25, 2023 6: 36pm [facility] [address] [place] [address] Hospitalist Progress Note Signed Patient: Mohan Espinoza MR#: [id number] : 1935 Acct:[id number] Age/Sex: 88 / F Adm Date: 4 Loc: Room: [address] [place] [address] Type: ADM IN Attending Dr: Apryl Shirley MD Copies to: ~ Date of Service: 12/25/2023 Subjective Subjective Narrative: Assessment And Plan 88-year-old female with previously known history of atrial fibrillation, hypertension, CKD , diabetes and hyperlipidemia, Hypothyroidism She presented to [facility] () ER earlier this evening with initially reported shortness of breath type 2 myocardial infarction Rule out NSTEMI She denies any chest pain or worsening SOB HS-Troponin 50 ()> 200 () > 280 ([facility]) LDL 115 EKG () shows afib [...] Units/3 Ml Insuln.Pen SUBCUT 12/24/24 21:59 TID.WM.HS [facility] Protocol Insulin Glargine 15 units 12/25/23 22:00 [...] A&P - Hospitalist Assessment/Plan (1) Type 2 IN (myocardial infarction): Plan Documented By: Apryl Shirley MD 12/25/23 0929 Signed By: <Electronically signed by Apryl Shirley MD> 12/25/23 1412 [facility] Work Phone: 1(160) 150-576910-05-2024 History and physical note Author Ren Mohan [facility] December 25, 2023 5:41am Note Date/Time December 25, 2023 3: 54am [facility] [address] [place] [address] Hospitalist H&P Signed Patient: Mohan Espinoza MR#: [id number] : 1935 Acct:[id number] Age/Sex: 88 / F Adm Date: 4 Loc: Room: [address] [place] [address] Type: ADM IN Attending Dr: Ren Mohan DO Copies to: Ren Mohan, NO FAMILY PHYSICIAN~ HPI DATE OF EXAMINATION: 12/25/23 CHIEF COMPLAINT: Shortness of breath HISTORY OF PRESENT ILLNESS: This patient is an 88-year-old female with previously known history of atrial fibrillation, hypertension, type 2 diabetes and hyperlipidemia. She has been evaluated here at [facility] necessitating cardiology consultation for troponin elevation in [...] in the evening with ER physician at [place] and with rising troponins ACS cannot be [...] with history of pulmonary embolism status post Gratiot filter 10. Hypothyroidism 11. Coronary artery disease [...] glipizide. Continue on 150 mg metoprolol ER. [facility] Medical History (Updated 12/25/23 @ 05:41 by Ren Mohan DO) Non-Hodgkin lymphoma in remission Patient recieved chemo therapy Problem List clean-up per request of Phys. EHR [facility] [place] filter in place [...] List clean-up per request of Phys. EHR [facility] Surgical History (Updated 03/03/23 @ 14:47 by Kenandy Wy) History of appendectomy Problem List clean-up per request of Phys. EHR [facility] History of open heart surgery x4 Problem List clean-up per request of Phys. EHR [facility] History of heart artery stent March 2018- 3 stents placed at [facility] Problem List clean-up per request of Phys. EHR [facility] Family History Father Diabetes [...] signed by Ren Mohan DO> 12/25/23 0541 [facility] Work Phone: 1(300) 924-306804-04-2023 Progress note Author Brissa Hoffman [facility] June 23, 2022 5:18pm Note Date/Time June 23, 2022 12:1 1pm [facility] [address] [place] [address] Hospitalist Progress Note Signed Patient: Mohan Espinoza MR#: [id number] : 1935 Acct:[id number] Age/Sex: 86 / F Adm Date: 3 Loc: Room: [address] [place] [address] Type: ADM IN Attending Dr: Brissa Hoffman [...] Tablet PO 06/22/23 08:59 Not Given DAILY [facility] Metoprolol Succinate 150 mg 06/24/22 09:00 Metoprolol Succinate 50 Mg Tab.Er.24h PO 06/24/23 08:59 DAILY [facility] Rivaroxaban 15 mg 06/22/22 17:00 06/22/22 17:00 [...] <Electronically signed by Brissa Hoffman MD> 06/23/22 1714 [facility] Work Phone: 1([phone]) 132-165404-04-2023 Hospital Discharge instructionsAmbulatory Orders* Initiate Home Health Time Frame: 06/23/22, Location: Determined By Patient Additional Instructions Please call and schedule an appointment with your established Business Rules Analyst. HOME HEALTH TO MANAGE: Nursing/PT to eval and treat Monitor VS per protocol Monitor Cardiovascular assessment--Elevated troponin, CAD, HTN Please draw a BMP in 5 days, Send to Dr. Schultz Assist with medication management and provide medication education Assist with glucose control Provide education on high risk fall precautions [facility] Work Phone: [phone]) [phone] Progress note Author W Jacinto [facility] June 23, 2022 9:56am Note Date/Time June 23, 2022 9:56 am [facility] [address] [place] [address] Cardiology Progress Note Signed Patient: Mohan Espinoza MR#: [id number] : 1935 Acct:[id number] Age/Sex: 86 / F Adm Date: 3 Loc: Room: [address] [place] [address] Type: ADM IN Attending Dr: Brissa Hoffman [...] above, to follow-up with Dr. Randolph in [place], for further evaluation and management Exam Physical [...] Acute (8) Chronic anticoagulation: Code(s): Z79.01 - longterm (current) use of anticoagulants Status: Acute (9) Factor V Leiden: Code(s): D68.51 - Activated protein C resistance Status: Acute Documented By: Sharron Casey DO 06/23/22 0952 Signed By: <Electronically signed by Sharron Casey DO> 06/23/22 0956 [facility] Work Phone: [phone]) [phone] Progress note Author Brissa Hoffman [facility] June 22, 2022 2:14pm Note Date/Time June 22, 2022 2:12 pm [facility] [address] [place] [address] Hospitalist Progress Note Signed Patient: Alexis,Mohan A MR#: [id number] : 1935 Acct:[id number] Age/Sex: 86 / F Adm Date: 3 Loc: 4 Room: [address] [place] [address] Type: ADM IN Attending Dr: Brissa Hoffman [...] Tablet PO 06/22/23 06:29 200 mcg DAILY@0630 [facility] Administration Losartan Potassium 100 mg 06/22/22 09:00 06/22/22 09:07 Losartan 50 Mg Tablet PO 06/22/23 08:59 Not Given DAILY [facility] Metoprolol Succinate 100 mg 06/22/22 09:00 06/22/22 09:08 Metoprolol Succinate 100 Mg Tab.Er.24h PO 06/22/23 08:59 Not Given DAILY [facility] Rivaroxaban 15 mg 06/22/22 17:00 Rivaroxaban 15 Mg Tablet PO 06/22/23 16:59 DAILY@17 [facility] A&P - Hospitalist Assessment/Plan (1) Elevated troponin: [...] signed by Brissa Hoffman MD> 06/22/22 1414 [facility] Work Phone: [phone]) [phone] Consult note Author Sharron Casey [facility] June 22, 2022 12:49pm Note Date/Time June 22, 2022 11:4 0am [facility] [address] [place], [place] [id number] Cardiology Consult Note Signed Patient: Mohan Espinoza MR#: [id number] : 1935 Acct:[id number] Age/Sex: 86 / F Adm Date: 3 Loc: Room: [address] [place] [address] Type: ADM IN Attending Dr: Brissa Hoffman MD Copies to: MD Shaikh Marion Vidal MD W Scott Sheldon, DO~ Cardiology HPI History of Present Illness Consult Date: 06/22/22 Reason for Consult: Elevated cardiac biomarkers, atrial fibrillation, ASHD HPI: Ms. Espinoza is a 86 year old female seen in cardiology consultation at the request of hospitalist after patient was transferred from [place] emergency room with elevated cardiac biomarkers. She presented with symptoms of UTI, bodyaches, lower extremity weakness, rigors; very similar to symptoms she has had before with urinary tract infections. She did not complaining of any shortness of breath or chest discomfort, she was complaining of lower abdominal discomfort as well. In [place] ER, her initial high-sensitivity troponins came back elevated at 100, serum creatinine 1.8, ECG consistent with controlled atrial fibrillation. There were initial attempts to transfer her to [facility] with her primary paving plant operator Dr. Randolph. They were unable to accept her immediately, there was some concern in the ER that she could not be admitted to [place] (? Unknown reason), [facility] [...] A-fib Impression/recommendations: Probable type II non-ST elevation IN secondary to multiple comorbidities including obesity, chronic [...] imaging; this canbe completed with her primary paving plant operator Review of Systems Review of Systems All [...] RES) Anemia Diabetes Factor V Leiden Gout Gratiot filter in place Hypertension Hypothyroidism Myocardial infarct [...] x10E3/uL Lymph # (Auto) 1.4 (1.00-4.8) x10E3/uL Stanly # (Auto) 0.9 H (0.0-0.8) x10E3/uL Eos [...] signed by Sharron Casey DO> 06/22/22 1249 [facility] Work Phone: 1([phone]) [phone] History and physical note Author Toi Johnson [facility] June 22, 2022 7:15am Note Date/Time June 22, 2022 4:22 am [facility] [address] [place] [address] Hospitalist H&P Signed Patient: Mohan Espinoza MR#: [id number] : 1935 Acct:[id number] Age/Sex: 86 / F Adm Date: 3 Loc: Room: [address] [place] [address] Type: ADM IN Attending Dr: Toi Johnson [...] above. Patient transferred here to [facility] due to elevated troponin and her [...] signed by DO FLAQUITA Cano> 06/22/22 0614 [facility] Work Phone: Evaluation note* Diagnosis Onset Date Resolution Status Atrial fibrillation acute CAD (coronary artery disease) acute Chronic anticoagulation acut e CKD (chronic kidney disease), stage III acute Diabetes mellitus acute Dyspnea acute Elevated troponin acute Factor V Leiden acute H/O pulmonary artery thrombosis acute History of heart artery stent acute History of open heart surgery acute HTN (hypertension) acute [facility] Work Phone: Evaluation note* Diagnosis Onset Date Resolution Status NSTEMI (non-ST elevated myocardial infarction) acute Type 2 IN (myocardial infarction) acute [facility] Work Phone: Evaluation note* Diagnosis Unspecified atrial fibrillation (CMS/HCC) documented in this encounter [facility] HealthcareEvaluation note* Diagnosis Primary hypertension (CMS/HCC)- Primary Unspecified essential hypertension Hypothyroidism, unspecified type (CMS/HCC) Type 2 diabetes mellitus with stage 3a chronic kidney disease, without long-term current use of insulin (HCC) (CMS/HCC) Longstanding persistent atrial fibrillation (CMS/HCC) Coronary artery disease involving paimiut coronary artery of paimiut heart without angina pectoris (CMS/HCC) Essential hypertension (CMS/HCC) Unspecified essential hypertension Stage 3a chronic kidney disease (HCC) (CMS/HCC) Acquired hypothyroidism (CMS/HCC) Unspecified hypothyroidism Chronic lymphocytic leukemia (CMS/HCC) Chronic lymphoid leukemia, without mention of having achieved remission Medicare annual wellness visit, subsequent Longstanding persistent atrial fibrillation (CMS/HCC)- Primary documented in this encounter [facility] HealthcareEvaluation note* Diagnosis Primary hypertension (CMS/HCC)- Primary Unspecified essential hypertension Hypothyroidism, unspecified type (CMS/HCC) Type 2 diabetes mellitus with stage 3a chronic kidney disease, without long-term current use of insulin (HCC) (CMS/HCC) Longstanding persistent atrial fibrillation (CMS/HCC) Coronary artery disease involving paimiut coronary artery of paimiut heart without angina pectoris (CMS/HCC) Essential hypertension [...] inoculation against influenza documented in this encounter [facility] HealthcareEvaluation note* Diagnosis Primary hypertension (CMS/HCC)- Primary Unspecified essential hypertension Hypothyroidism, unspecified type (CMS/HCC) Type 2 diabetes mellitus with stage 3a chronic kidney disease, without long-term current use of insulin (HCC) (CMS/HCC) Longstanding persistent atrial fibrillation (CMS/HCC) Coronary artery disease involving paimiut coronary artery of paimiut heart without angina pectoris (CMS/HCC) Essential hypertension [...] without complications (CMS/HCC) documented in this encounter [facility] HealthcareEvaluation note* Diagnosis Primary hypertension (CMS/HCC)- Primary Unspecified essential hypertension Hypothyroidism, unspecified type (CMS/HCC) Type 2 diabetes mellitus with stage 3a chronic kidney disease, without long-term current use of insulin (HCC) (CMS/HCC) Longstanding persistent atrial fibrillation (CMS/HCC) Coronary artery disease involving paimiut coronary artery of paimiut heart without angina pectoris (CMS/HCC) Essential hypertension (CMS/HCC) Unspecified essential hypertension Stage 3a chronic kidney disease (HCC) (CMS/HCC) Acquired hypothyroidism ([facility]/HCC) Unspecified hypothyroidism Chronic lymphocytic leukemia ([facility]/HCC) Chronic lymphoid leukemia, without mention of [...] kidney disease (CMS/HCC) documented in this encounter [facility] HealthcareEvaluation note* Diagnosis Primary hypertension (CMS/HCC)- Primary Unspecified essential hypertension Hypothyroidism, unspecified type (CMS/HCC) Type 2 diabetes mellitus with stage 3a chronic kidney disease, without long-term current use of insulin (HCC) (CMS/HCC) Longstanding persistent atrial fibrillation (CMS/HCC) Coronary artery disease involving paimiut coronary artery of paimiut heart without angina pectoris (CMS/HCC) Essential hypertension [...] atrial fibrillation (CMS/HCC) documented in this encounter [facility] HealthcareEvaluation note* Diagnosis Primary hypertension (CMS/HCC)- Primary Unspecified essential hypertension Hypothyroidism, unspecified type (CMS/HCC) Type 2 diabetes mellitus with stage 3a chronic kidney disease, without long-term current use of insulin (HCC) (CMS/HCC) Longstanding persistent atrial fibrillation (CMS/HCC) Coronary artery disease involving paimiut coronary artery of paimiut heart without angina pectoris (CMS/HCC) Essential hypertension [...] without complications (CMS/HCC) documented in this encounter [facility] HealthcareEvaluation note* Diagnosis Primary hypertension (CMS/HCC)- Primary Unspecified essential hypertension Hypothyroidism, unspecified type (CMS/HCC) Type 2 diabetes mellitus with stage 3a chronic kidney disease, without long-term current use of insulin (HCC) (CMS/HCC) Longstanding persistent atrial fibrillation (CMS/HCC) Coronary artery disease involving paimiut coronary artery of paimiut heart without angina pectoris (CMS/HCC) Essential hypertension [...] Type 2 diabetes mellitus with diabetic cataract ([facility]/HCC) Type II or unspecified type diabetes mellitus with ophthalmic manifestations, not stated as uncontrolled Chronic diastolic (congestive) heart failure ([facility]/HCC) Chronic kidney disease, stage 3b (HCC) ([facility]/HCC) Type 2 diabetes mellitus with diabetic polyneuropathy ([facility]/HCC) 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 elsewhere ([facility]) Chronic lymphocytic leukemia of B-cell type not having achieved remission ([facility]/HCC) Hairy cell leukemia, in remission ([facility]) Unspecified atrial fibrillation ([facility]/HCC) Morbid (severe) obesity due to excess calories ([facility]/HCC) Body mass index (BMI) 40.0-44.9, adult ([facility]) Cardiomyopathy, ischemic ([facility]) Other specified forms of chronic ischemic heart disease Coronary artery disease involving paimiut coronary artery of paimiut heart without angina pectoris (CMS/HCC) Essential hypertension ([facility]/HCC) Unspecified essential hypertension Acquired hypothyroidism ([facility]/HCC) Unspecified hypothyroidism Factor V Leiden mutation ([facility]/HCC) Primary hypercoagulable state Statin intolerance Hyperuricemia without signs of inflammatory arthritis and tophaceous disease documented in this encounter [facility] HealthcareEvaluation note* Diagnosis Primary hypertension (CMS/HCC)- Primary Unspecified essential hypertension Hypothyroidism, unspecified type ([facility]) Type 2 diabetes mellitus with stage 3a chronic kidney disease, without long-term current use of insulin (HCC) (CMS/HCC) Longstanding persistent atrial fibrillation ([facility]/HCC) Coronary artery disease involving paimiut coronary artery of paimiut heart without angina pectoris (CMS/HCC) Essential hypertension [...] failure Chronic kidney disease, stage 3b (HCC) ([facility]/HCC) Type 2 diabetes mellitus with diabetic polyneuropathy ([facility]/HCC) 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 elsewhere ([facility]/HCC) Chronic lymphocytic leukemia of B-cell type not having achieved remission ([facility]/HCC) Hairy cell leukemia, in remission ([facility]/HCC) Unspecified atrial fibrillation ([facility]/HCC) Morbid (severe) obesity due to excess calories (CMS/HCC) Body mass index (BMI) 40.0-44.9, adult (CMS/HCC) Cardiomyopathy, ischemic (CMS/HCC) Other specified forms of chronic ischemic heart disease Coronary artery disease involving paimiut coronary artery of paimiut heart without angina pectoris (CMS/HCC) Essential hypertension ([facility]/HCC) Unspecified essential hypertension Acquired hypothyroidism (CMS/HCC) Unspecified hypothyroidism Factor V Leiden mutation ([facility]/HCC) Primary hypercoagulable state Statin intolerance Hyperuricemia without signs of inflammatory arthritis and tophaceous disease Unspecified atrial fibrillation (CMS/HCC) documented in this encounter [facility] HealthcareEvaluation noteNo assessment information availableMagr[facility] Hospital Work Phone: Evaluation note* Diagnosis Primary hypertension (CMS/HCC)- Primary Unspecified essential hypertension Hypothyroidism, unspecified type ([facility]/HCC) Type 2 diabetes mellitus with stage 3a chronic kidney disease, without long-term current use of insulin (HCC) (CMS/HCC) Longstanding persistent atrial fibrillation ([facility]/HCC) Coronary artery disease involving paimiut coronary artery of paimiut heart without angina pectoris ([facility]/HCC) Essential hypertension ([facility]/HCC) Unspecified essential hypertension Stage 3a chronic kidney disease (HCC) ([facility]) Acquired hypothyroidism ([facility]) Unspecified hypothyroidism Chronic lymphocytic leukemia ([facility]) Chronic lymphoid leukemia, without mention of having achieved remission Medicare annual wellness visit, subsequent Longstanding persistent atrial fibrillation ([facility])- Primary Type 2 diabetes mellitus with stage 3a chronic kidney disease, without long-term current use of insulin (HCC) ([facility])- Primary Essential hypertension ([facility]/HCC) Unspecified essential hypertension Acquired hypothyroidism ([facility]/HCC) Unspecified hypothyroidism Need for influenza vaccination Need for prophylactic vaccination and inoculation against influenza Type 2 diabetes mellitus with diabetic chronic kidney disease ([facility])- Primary Type 2 diabetes mellitus with diabetic cataract ([facility]) Type II or unspecified type diabetes mellitus with ophthalmic manifestations, not stated as uncontrolled Chronic diastolic (congestive) heart failure Chronic kidney disease, stage 3b (HCC) ([facility]) Type 2 diabetes mellitus with diabetic polyneuropathy ([facility]) 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 elsewhere ([facility]) Chronic lymphocytic leukemia of B-cell type not having achieved remission ([facility]) Hairy cell leukemia, in remission ([facility]) Unspecified atrial fibrillation ([facility]) Morbid (severe) obesity due to excess calories ([facility]) Body mass index (BMI) 40.0-44.9, adult ([facility]) Cardiomyopathy, ischemic ([facility]) Other specified forms of chronic ischemic heart disease Coronary artery disease involving paimiut coronary artery of paimiut heart without angina pectoris ([facility]) Essential hypertension ([facility]) Unspecified essential hypertension Acquired hypothyroidism ([facility]/HCC) Unspecified hypothyroidism Factor V Leiden mutation ([facility]) Primary hypercoagulable state Statin intolerance Hyperuricemia without signs of inflammatory arthritis and tophaceous disease Medicare annual wellness visit, subsequent- Primary Type 2 diabetes mellitus with stage 3b chronic kidney disease, without long-term current use of insulin (HCC) ([facility]) Morbid (severe) obesity due to excess calories ([facility]) Acquired hypothyroidism ([facility]) Unspecified hypothyroidism Essential hypertension ([facility]/HCC) Unspecified essential hypertension Chronic diastolic (congestive) heart failure Coronary artery disease involving paimiut coronary artery of paimiut heart without angina pectoris ([facility]) Type 2 diabetes mellitus with diabetic polyneuropathy, without long-term current use of insulin ([facility]) Hypomagnesemia Disorders of magnesium metabolism documented in this encounter [facility] HealthcareEvaluation note* Diagnosis Primary hypertension- Primary Unspecified essential hypertension Hypothyroidism, unspecified type Type 2 diabetes mellitus with stage 3a chronic kidney disease, without long-term current use of insulin (HCC) Longstanding persistent atrial fibrillation (HCC) Coronary artery disease involving paimiut coronary artery of paimiut heart without angina pectoris Essential hypertension Unspecified essential hypertension Stage 3a chronic kidney disease ([facility]-HCC) Acquired hypothyroidism Unspecified hypothyroidism Chronic lymphocytic leukemia (HCC) Chronic lymphoid leukemia, without mention of having achieved remission Medicare annual wellness visit, subsequent Longstanding persistent atrial fibrillation (HCC)- Primary Type 2 diabetes mellitus with stage 3a chronic kidney disease, without long-term current use of insulin (HCC)- Primary Essential hypertension Unspecified essential hypertension Acquired hypothyroidism Unspecified hypothyroidism Need for influenza vaccination Need for prophylactic vaccination and inoculation against influenza Type 2 diabetes mellitus with diabetic chronic kidney disease (HCC)- Primary Type 2 diabetes mellitus with diabetic cataract (HCC) Type II or unspecified type diabetes mellitus with ophthalmic manifestations, not stated as uncontrolled Chronic diastolic (congestive) heart failure (HCC) Chronic kidney disease, stage 3b ([facility]) 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) Hairy cell leukemia, in remission (HCC) Unspecified atrial fibrillation (HCC) Morbid (severe) obesity due to excess calories ([facility]) Body mass index (BMI) 40.0-44.9, adult ([facility]) Cardiomyopathy, ischemic Other specified forms of chronic ischemic heart disease Coronary artery disease involving paimiut coronary artery of paimiut heart without angina pectoris Essential hypertension Unspecified essential hypertension Acquired hypothyroidism Unspecified hypothyroidism Factor V Leiden mutation ([facility]) Primary hypercoagulable state Statin intolerance Hyperuricemia without signs of inflammatory arthritis and tophaceous disease Medicare annual wellness visit, subsequent- Primary Type 2 diabetes mellitus with stage 3b chronic kidney disease, without long-term current use of insulin (HCC) Morbid (severe) obesity due to excess calories ([facility]) Acquired hypothyroidism Unspecified hypothyroidism Essential hypertension Unspecified essential hypertension Chronic diastolic (congestive) heart failure (HCC) Coronary artery disease involving paimiut coronary artery of paimiut heart without angina pectoris Type 2 diabetes mellitus with diabetic polyneuropathy, without long-term current use of insulin (HCC) Hypomagnesemia Disorders of magnesium metabolism Hypomagnesemia- Primary Disorders of magnesium metabolism documented in this encounter [facility] HealthcareEvaluation note* Diagnosis Primary hypertension- Primary Unspecified essential hypertension Hypothyroidism, unspecified type Type 2 diabetes mellitus with stage 3a chronic kidney disease, without long-term current use of insulin (HCC) Longstanding persistent atrial fibrillation (HCC) Coronary artery disease involving paimiut coronary artery of paimiut heart without angina pectoris Essential hypertension Unspecified essential hypertension Stage 3a chronic kidney disease ([facility]) Acquired hypothyroidism Unspecified hypothyroidism Chronic lymphocytic leukemia (HCC) Chronic lymphoid leukemia, without mention of having achieved remission Medicare annual wellness visit, subsequent Longstanding persistent atrial fibrillation (HCC)- Primary Type 2 diabetes mellitus with stage 3a chronic kidney disease, without long-term current use of insulin (HCC)- Primary Essential hypertension Unspecified essential hypertension Acquired hypothyroidism Unspecified hypothyroidism Need for influenza vaccination Need for prophylactic vaccination and inoculation against influenza Type 2 diabetes mellitus with diabetic chronic kidney disease (HCC)- Primary Type 2 diabetes mellitus with diabetic cataract ([facility]) Type II or unspecified type diabetes mellitus with ophthalmic manifestations, not stated as uncontrolled Chronic diastolic (congestive) heart failure (HCC) Chronic kidney disease, stage 3b ([facility]) 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) Hairy cell leukemia, in remission ([facility]) Unspecified atrial fibrillation (HCC) Morbid (severe) obesity due to excess calories ([facility]) Body mass index (BMI) 40.0-44.9, adult [place] Cardiomyopathy, ischemic Other specified forms of chronic ischemic heart disease Coronary artery disease involving paimiut coronary artery of paimiut heart without angina pectoris Essential hypertension Unspecified essential hypertension Acquired hypothyroidism Unspecified hypothyroidism Factor V Leiden mutation ([facility]) Primary hypercoagulable state Statin intolerance Hyperuricemia without signs of inflammatory arthritis and tophaceous disease Medicare annual wellness visit, subsequent- Primary Type 2 diabetes mellitus with stage 3b chronic kidney disease, without long-term current use of insulin (HCC) Morbid (severe) obesity due to excess calories ([facility]) Acquired hypothyroidism Unspecified hypothyroidism Essential hypertension Unspecified essential hypertension Chronic diastolic (congestive) heart failure (HCC) Coronary artery disease involving paimiut coronary artery of paimiut heart without angina pectoris Type 2 diabetes mellitus with diabetic polyneuropathy, without long-term current use of insulin (HCC) Hypomagnesemia Disorders of magnesium metabolism Hypothyroidism, unspecified Type 2 diabetes mellitus with diabetic chronic kidney disease (HCC) Hyperuricemia without signs of inflammatory arthritis and tophaceous disease Type 2 diabetes mellitus without complications (HCC) documented in this encounter [facility] HealthcareEvaluation note* Diagnosis ASHD (arteriosclerotic heart disease) Coronary atherosclerosis of unspecified type of vessel, paimiut or graft 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 History of non-ST elevation myocardial infarction (NSTEMI) Other pulmonary embolism without acute cor pulmonale, unspecified chronicity (Multi) Factor V Leiden (Multi) Primary hypercoagulable state Statin intolerance Atrial fibrillation, unspecified type (Multi) Type 2 diabetes mellitus without complication, without long-term current use of insulin Never smoked tobacco Congestive heart failure, unspecified HF chronicity, unspecified heart failure type documented in this encounter [facility] Work Phone: Evaluation note* Diagnosis Primary hypertension- Primary Unspecified essential hypertension Hypothyroidism, unspecified type Type 2 diabetes mellitus with stage 3a chronic kidney disease, without long-term current use of insulin (HCC) Longstanding persistent atrial fibrillation (HCC) Coronary artery disease involving paimiut coronary artery of paimiut heart without angina pectoris Essential hypertension Unspecified essential hypertension Stage 3a chronic kidney disease (CMS-HCC) Acquired hypothyroidism Unspecified hypothyroidism Chronic lymphocytic leukemia (HCC) Chronic lymphoid leukemia, without mention of having achieved remission Medicare annual wellness visit, subsequent Longstanding persistent atrial fibrillation (HCC)- Primary Type 2 diabetes mellitus with stage 3a chronic kidney disease, without long-term current use of insulin (HCC)- Primary Essential hypertension Unspecified essential hypertension Acquired hypothyroidism Unspecified hypothyroidism Need for influenza vaccination Need for prophylactic vaccination and inoculation against influenza Type 2 diabetes mellitus with diabetic chronic kidney disease (HCC)- Primary Type 2 diabetes mellitus with diabetic cataract (HCC) Type II or unspecified type diabetes mellitus with ophthalmic manifestations, not stated as uncontrolled Chronic diastolic (congestive) heart failure (HCC) Chronic kidney disease, stage 3b (CMS-HCC) 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) Hairy cell leukemia, in remission (HCC) Unspecified atrial fibrillation (HCC) Morbid (severe) obesity due to excess calories ([facility]) Body mass index (BMI) 40.0-44.9, adult ([facility]) Cardiomyopathy, ischemic Other specified forms of chronic ischemic heart disease Coronary artery disease involving paimiut coronary artery of paimiut heart without angina pectoris Essential hypertension Unspecified essential hypertension Acquired hypothyroidism Unspecified hypothyroidism Factor V Leiden mutation ([facility]) Primary hypercoagulable state Statin intolerance Hyperuricemia without signs of inflammatory arthritis and tophaceous disease Medicare annual wellness visit, subsequent- Primary Type 2 diabetes mellitus with stage 3b chronic kidney disease, without long-term current use of insulin (HCC) Morbid (severe) obesity due to excess calories ([facility]) Acquired hypothyroidism Unspecified hypothyroidism Essential hypertension Unspecified essential hypertension Chronic diastolic (congestive) heart failure (HCC) Coronary artery disease involving paimiut coronary artery of paimiut heart without angina pectoris Type 2 diabetes mellitus with diabetic polyneuropathy, without long-term current use of insulin ([facility]) Hypomagnesemia Disorders of magnesium metabolism Essential hypertension- Primary Unspecified essential hypertension Type 2 diabetes mellitus with diabetic polyneuropathy, without long-term current use of insulin ([facility]) Longstanding persistent atrial fibrillation (HCC) Pulmonary embolism, unspecified chronicity, unspecified pulmonary embolism type, unspecified whether acute cor pulmonale present ([facility]) Chronic diastolic (congestive) heart failure (HCC) Chronic kidney disease, stage 3b ([facility]) Type 2 diabetes mellitus with stage 3b chronic kidney disease, without long-term current use of insulin (HCC) Morbid (severe) obesity due to excess calories ([facility]) Acquired hypothyroidism Unspecified hypothyroidism Diarrhea, unspecified type documented in this encounter [facility] HealthcareEvaluation note* Diagnosis Primary hypertension- Primary Unspecified essential hypertension Hypothyroidism, unspecified type Type 2 diabetes mellitus with stage 3a chronic kidney disease, without long-term current use of insulin (HCC) Longstanding persistent atrial fibrillation (HCC) Coronary artery disease involving paimiut coronary artery of paimiut heart without angina pectoris Essential hypertension Unspecified essential hypertension Stage 3a chronic kidney disease ([facility]) Acquired hypothyroidism Unspecified hypothyroidism Chronic lymphocytic leukemia (HCC) Chronic lymphoid leukemia, without mention of having achieved remission Medicare annual wellness visit, subsequent Longstanding persistent atrial fibrillation (HCC)- Primary Type 2 diabetes mellitus with stage 3a chronic kidney disease, without long-term current use of insulin (HCC)- Primary Essential hypertension Unspecified essential hypertension Acquired hypothyroidism Unspecified hypothyroidism Need for influenza vaccination Need for prophylactic vaccination and inoculation against influenza Type 2 diabetes mellitus with diabetic chronic kidney disease (HCC)- Primary Type 2 diabetes mellitus with diabetic cataract (HCC) Type II or unspecified type diabetes mellitus with ophthalmic manifestations, not stated as uncontrolled Chronic diastolic (congestive) heart failure (HCC) Chronic kidney disease, stage 3b ([facility]) 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) Hairy cell leukemia, in remission ([facility]) Unspecified atrial fibrillation (HCC) Morbid (severe) obesity due to excess calories ([facility]) Body mass index (BMI) 40.0-44.9, adult ([facility]) Cardiomyopathy, ischemic Other specified forms of chronic ischemic heart disease Coronary artery disease involving paimiut coronary artery of paimiut heart without angina pectoris Essential hypertension Unspecified essential hypertension Acquired hypothyroidism Unspecified hypothyroidism Factor V Leiden mutation ([facility]) Primary hypercoagulable state Statin intolerance Hyperuricemia without signs of inflammatory arthritis and tophaceous disease Medicare annual wellness visit, subsequent- Primary Type 2 diabetes mellitus with stage 3b chronic kidney disease, without long-term current use of insulin (HCC) Morbid (severe) obesity due to excess calories ([facility]) Acquired hypothyroidism Unspecified hypothyroidism Essential hypertension Unspecified essential hypertension Chronic diastolic (congestive) heart failure (HCC) Coronary artery disease involving paimiut coronary artery of paimiut heart without angina pectoris Type 2 diabetes mellitus with diabetic polyneuropathy, without long-term current use of insulin ([facility]) Hypomagnesemia Disorders of magnesium metabolism Essential hypertension- Primary Unspecified essential hypertension Type 2 diabetes mellitus with diabetic polyneuropathy, without long-term current use of insulin (HCC) Longstanding persistent atrial fibrillation (HCC) Pulmonary embolism, unspecified chronicity, unspecified pulmonary embolism type, unspecified whether acute cor pulmonale present (HCC) Chronic diastolic (congestive) heart failure (HCC) Chronic kidney disease, stage 3b ([facility]) Type 2 diabetes mellitus with stage 3b chronic kidney disease, without long-term current use of insulin (HCC) Morbid (severe) obesity due to excess calories ([facility]) Acquired hypothyroidism Unspecified hypothyroidism Diarrhea, unspecified type Hypomagnesemia Disorders of magnesium metabolism Type 2 diabetes mellitus without complications ([facility]) documented in this encounter [facility] Healthcare Summary Purpose Family History Relationship Condition [...] 2019 7:25pm Hospital Course Note MR#: [id number] [facility] Pt. Name: Mohan Espinoza Admitted: [...] patient was seen in [facility] after she was feeling weak for 1 day[address] [facility], she was found to have [...] (non-ST eleva ruma myocardial infarction) Type 2 IN (myocardial infarction) Chief Complaint Admit Date Unknown July 06, 2024 1:5 2pm Chief Complaint * [facility] [place] [place]/C 06/23/22. * 86-year-old female returns for [...] section and content) DATE CREATED AUTHOR 11/06/2017 [facility] DATE CREATED AUTHOR AUTHOR'S ORGANIZ ATION 04/04/2019 [facility] DATE CREATED AUTHOR AUTHOR'S ORGANIZ ATION 04/18/2020 [facility] DATE CREATED AUTHOR AUTHOR'S ORGANIZ ATION 06/24/2022 [facility] DATE CREATED AUTHOR AUTHOR'S ORGANIZ ATION 09/26/2022 [facility] DATE CREATED AUTHOR AUTHOR'S ORGANIZ ATION 10/01/2022 [facility] DATE CREATED AUTHOR AUTHOR'S ORGANIZ ATION 10/01/2022 [facility] DATE CREATED AUTHOR AUTHOR'S ORGANIZ ATION 07/09/2024 [facility] DATE CREATED AUTHOR AUTHOR'S ORGANIZ ATION 10/20/2024 [facility] DATE CREATED AUTHOR AUTHOR'S ORGANIZ ATION 11/01/2024 [facility] EPIC Care Teams (unrecognized [...] Active Member Role Status Dates Emilie Meza NP-C Primary Care Provider Ac tive Team Status: Inactive Member Role Status Dates Ren Mohan DO Admit Provider Active Start: December 25, 2023 End: December 28, 2023 Nelson Orourke DO Attending Provider Active St art: December 25, 2023 End: December 28, 2023 CHRISTY Mathews Primary Care Provider Ac tive Start: December 25, 2023 End: December 28, 2023 Diaphragm Builder Relationship Specialty Start Date End Date Fabricio Edouard MD [address] [place] [address] PCP - General Family Medicine 7/31/24 Emilie Meza NP [address] [place] [address] Nurse Practitioner Family Medicine 10/20/23 Diaphragm Builder Relationship Specialty Start Date End Date Fabricio Edouard MD [address] [place] [phone] PCP - General Family Medicine 10/20/23 Emilie Meza NP [address] [place] [address] Nurse Practitioner Family Medicine 10/20/23 Diaphragm Builder Relationship Specialty Start Date End Date Fabricio Edouard MD [address] [place] [phone] PCP - General Family Medicine 10/20/23 Emilie Meza NP [address] [place] [address] Nurse Practitioner Family Medicine 10/20/23 Diaphragm Builder Relationship Specialty Start Date End Date Fabricio Edouard MD [address] [place] [address] PCP - General Family Medicine 10/20/23 Emilie Meza NP [address] [place] [address] Nurse Practitioner Family Medicine 10/20/23 Diaphragm Builder Relationship Specialty Start Date End Date Fabricio Edouard MD [address] [place] [phone] PCP - General Family Medicine 10/20/23 Emilie Meza NP [address] [place] [address] Nurse Practitioner Family Medicine 10/20/23 Diaphragm Builder Relationship Specialty Start Date End Date Fabricio Edouard MD [address] [place] [phone] PCP - General Family Medicine 10/20/23 Emilie Meza NP [address] [place] [address] Nurse Practitioner Family Medicine 10/20/23 Diaphragm Builder Relationship Specialty Start Date End Date Fabricio Edouard MD [address] [place] [phone] PCP - General Family Medicine 10/20/23 Emilie Meza NP [address] [place] [address] Nurse Practitioner Family Medicine 10/20/23 Diaphragm Builder Relationship Specialty Start Date End Date Fabricio Edouard MD [address] [place] [phone] PCP - General Family Medicine 10/20/23 Emilie Meza NP [address] [place] [address] Nurse Practitioner Family Medicine 10/20/23 Diaphragm Builder Relationship Specialty Start Date End Date Fabricio Edouard MD [address] [place] [phone] PCP - General Family Medicine 10/20/23 Emilie Meza NP [address] [place] [address] Nurse Practitioner Family Medicine 10/20/23 Diaphragm Builder Relationship Specialty Start Date End Date Fabricio Edouard MD [address] [place] [phone] PCP - General Family Medicine 10/20/23 Emilie Meza NP [address] [place] [phone] Nurse Practitioner Family Medicine 10/20/23 Diaphragm Builder Relationship Specialty Start Date End Date Fabricio Edouard MD [address] [place] [phone] PCP - General Family Medicine 10/20/23 Ирина Brown NP [address] [place] [phone] Nurse Practitioner Family Medicine 05/25/24 Diaphragm Builder Relationship Specialty Start Date End Date Fabricio Edouard MD [address] [place] [phone] PCP - General Family Medicine 10/20/23 Ирина Brown NP [address] [place] [place] [address] Nurse Practitioner Family Medicine 05/25/24 Team Status: Inactive Member Role Status Dates Emilie Meza , YOAN-C Primary Care Provider Ac tive Start: July 06, 2024 End: July 06, 2024 Alfonso Kendrick DO Attending Provider Active S tart: July 06, 2024 End: July 06, 2024 Diaphragm Builder Relationship Specialty Start Date End Date Fabricio Edouard MD [address] [place] [phone] PCP - General Family Medicine 10/20/23 Ирина Brown NP [address] [place] [phone] Nurse Practitioner Family Medicine 05/25/24 Diaphragm Builder Relationship Specialty Start Date End Date Fabricio Edouard MD [address] [place] [phone] PCP - General Family Medicine 10/20/23 Ирина Brown NP [address] [place] [phone] Nurse Practitioner Family Medicine 05/25/24 Diaphragm Builder Relationship Specialty Start Date End Date Fabricio Edouard MD [address] [place] [phone] PCP - General Family Medicine 10/20/23 Ирина Brown NP [address] [place] [address] Nurse Practitioner Family Medicine 05/25/24 Diaphragm Builder Relationship Specialty Start Date End Date Fabricio Edouard MD [address] [place] [address] PCP - General Family Medicine 10/20/23 Ирина Brown NP [address] [place] [address] Nurse Practitioner Family Medicine 05/25/24 Diaphragm Builder Relationship Specialty Start Date End Date Fabricio Edouard MD [address] [place] [phone] PCP - General Family Medicine 10/20/23 Ирина Brown NP [address] [place] [phone] Nurse Practitioner Family Medicine 05/25/24 Diaphragm Builder Relationship Specialty Start Date End Date Shaikh Schultz MD [address] [place] [address] PCP - General Internal Medicine 10/04/24 Diaphragm Builder Relationship Specialty Start Date End Date Fabricio Edouard MD [address] [place] [phone] PCP - General Family Medicine 10/20/23 Ирина Brown NP [address] [place] [phone] Nurse Practitioner Family Medicine 05/25/24 Diaphragm Builder Relationship Specialty Start Date End Date Fabricio Edouard MD [address] [place] [address] PCP - General Family Medicine 10/20/23 Ирина Brown NP [address] [place] [phone] Nurse Practitioner Family Medicine 05/25/24 Diaphragm Builder Relationship Specialty Start Date End Date Fabricio Edouard MD [address] [place] [phone] PCP - General Family Medicine 10/20/23 Ирина Brown NP [address] [place] [address] Nurse Practitioner Family Medicine 05/25/24 Reason for Visit (unrecogniz ed section and content) Reason Onset Date Comments Med Refill 12/28/2023 Reason Comments Hospital Follow-up Reason Comments Hypertension Reason Onset Date Comments Med Refill 02/28/2024 Reason Onset Date Comments Med Refill 04/05/2024 Reason Comments Diabetes Reason Onset Date Comments Med Refill 07/10/2024 Reason Comments Medicare Annual Wellness Visit Initial Reason Onset Date Comments Med Refill 10/11/2024 Reason Comments Annual Exam 1 year follow up for ASHD (arteriosclerotic heart disease) Specialty Diagnoses / Procedures Referred By Juliann t Referred To Contact Cardiology Diagnoses ASHD (arteriosclerotic heart disease) Procedures Follow Up In Cardiology Joseluis Casey, [address] [address] Phone: tel: fax: Joseluis Casey, [address] [address] Phone: tel: fax: Referral ID Status Reason Start Date Expiration Date V isits Requested Visits Authorized [id number] Authorized 10/19/2023 10/18/2024 1 1 Reason Comments Med Refill Goals (unrecognized section and content) Goals may [...] BE BASED ON THE PRIMARY CLINICAL RECORDS. [facility]. provides no warranty or guarantee of the accuracy or completeness of information in this document.
[2024-11-14 11:01] LABS: Magnesium 1.5 mg/dL (1.8-2.4)
== END 2024-11-14 10:04 | disposition home or self-care (01) ==
LOC: LAB 10:04
PROVIDERS: PCP Nurse Practitioner; Visit Provider Nurse Practitioner
DX: E83.42 Hypomagnesemia (principal)
CPT/HCPCS: 36415; 83735

== ENCOUNTER 2025-02-09 17:28 | Inpatient (IN) | payer MEDICARE, OTHER, SELFPAY ==
[2025-02-09] VITALS (9 sets, daily range): BP systolic 180–213; BP diastolic 80–104; PULSE 70–87; TEMP 36.3; O2SAT 94–98; BMI 39.8
--- OUTSIDE RECORDS SUMMARY | 2025-02-09 17:39 | XMS_ITS | Clinical Summary ---
Author Organization [facility] Address [address], [address] [place] [address] Care Team Providers Care Hvac Mechanical Engineer Name Role Phone Unavailable Primary Care Provider Unavailabl e Allergies No known active allergies Medications MedicationSigDispense QuantityRefillsLast FilledStart DateEnd DateStatus losartan-hydrochlorothiazide (HYZAAR) 50-12.5 MG per tablet Take 1 tablet by mouth daily.Active levothyroxine (SYNTHROID) 112 MCG tablet Take 112 mcg by mouth Daily.Active diltiazem (DILACOR XR) 240 MG XR capsule Take 240 mg by mouth daily.Active Active Problems ProblemNoted DateDiagnosed DateHypertensionHypothyroidism Social History Tobacco UseTypesPacks/DayYears UsedDateSmoking Tobacco: Never Assessed CommentsUnknownSex and Gender InformationValueDate RecordedSex Assigned at Not on fileLegal VydCixayu02/10/2013 8:32 PM ESTGender IdentityNot on fileSexual OrientationNot on file Plan of Treatment Not on file
--- OUTSIDE RECORDS SUMMARY | 2025-02-09 17:39 | XMS_ITS | Clinical Summary ---
Author Organization [facility] Address [address] [place] [address] Care Team Providers Care Pilot Safety Inspector Name Role Phone Fabricio Edouard MD Primary Care Provider [phone] Ирина Brown NP Unavailable [phone] Allergies Active AllergyReactionsCriticalityNoted DateCommentsAce InhibitorsOther 10/19/2023 hypotension SmtvoycmgOvxabg52/15/2016 Other Reaction(s): Other (See Comments), Unknown pt states hurt my lungs NqwscztvpucmAnlxsnfr15/15/5338Oosdeyegniexit26/15/2016 Other Reaction(s): Unknown Uauselsqs42/15/2016 Other Reaction(s): Unknown Headaches RyzsvSemei16/30/2024 hypotension Medications MedicationSigDispense QuantityRefillsLast FilledStart DateEnd DateStatus metoprolol succinate XL (Toprol-XL) 50 MG 24 hr tablet TAKE 3 TABLETS BY MOUTH ONCE DAILY DO NOT CRUSH OR CHEW5Active rivaroxaban (Xarelto) 15 MG tablet Indications:Unspecified atrial fibrillation (HCC)Take 1 tablet (15 mg) by mouth in the evening. Take with meals 90 tablet 5Active levothyroxine (Synthroid, Levoxyl) 200 MCG tablet Indications:Hypothyroidism, unspecifiedTake 1 tablet (200 mcg) by mouth Daily 90 tablet 5Active furosemide (Lasix) 40 MG tablet Indications:Type 2 diabetes mellitus with diabetic chronic kidney disease (HCC) Take 1 tablet (40 mg) by mouth Daily 90 tablet 5Active glipiZIDE (Glucotrol) 10 MG tablet Indications:Type 2 diabetes mellitus without complications (HCC)Take 1 tablet (10 mg) by mouth in the morning and 1 tablet (10 mg) before bedtime. 180 tablet 5Active Blood Glucose Monitoring Suppl (Accu-Chek Dione Plus) w/Device kit Indications:Type 2 diabetes mellitus with stage 3b chronic kidney disease, without long-term current use of insulin (HCC)1 each Daily 1 kit /6Active metFORMIN (Glucophage) 500 MG tablet Indications:Type 2 diabetes mellitus without complications (HCC)Take 1 tablet (500 mg) by mouth in the morning and 1 tablet (500 mg) before bedtime. 180 tablet 5Active glucose blood (Accu-Chek Dione Plus) test strip Indications:Type 2 diabetes mellitus with stage 3b chronic kidney disease, without long-term current use of insulin (HCC)1 each by Other route Daily Use as instructed 100 each Expired magnesium oxide (Mag-Ox) 400 (240 Mg) MG tablet Indications:HypomagnesemiaTake 1 tablet (400 mg) by mouth Daily 90 tablet Expired Active Problems ProblemNoted DateDiagnosed QdamLfaxqogy33/12/2025 Assessment & Plan (10/31/2024 10:13 AM EDT): Reports that has resolved, still not a lot of appetite, is drinking fluids and staying hydrated Will call with update on condition Crstrahgmewtgk57/10/2025 Assessment & Plan (08/29/2024 12:47 PM EDT): May try otc magnesium oxide 240 or 250mg Check labs in 3 weeks Type 2 diabetes mellitus with diabetic wlajnend36/06/2025Chronic diastolic (congestive) heart otlrptu1705/25/2024 Assessment & Plan (10/31/2024 6:31 AM EDT): On b jazmine, and diuretic\ Follows with cardiology in [place] Assessment & Plan (08/29/2024 6:35 AM EDT): On b jazmine, and diuretic Assessment & Plan (05/25/2024 6:48 AM EST): On b jazmine, and diuretic Chronic kidney disease, stage 3b03/08/2024 Assessment & Plan (10/31/2024 6:27 AM EDT): Control blood pressure and blood sugars Check labs yearly and prn Assessment & Plan (05/25/2024 6:49 AM EST): Control blood pressure and blood sugars Check labs yearly and prn Type 2 diabetes mellitus with diabetic tujtpybmbvecss87/06/2025 Assessment & Plan (10/31/2024 6:26 AM EDT): No current meds for this Recommend freq foot checks, proper fitting shoes Adequate blood sugar control Assessment & Plan (08/29/2024 6:35 AM EDT): No current meds for this Recommend freq foot checks, proper fitting shoes Adequate blood sugar control Assessment & Plan (05/25/2024 6:47 AM EST): No current meds for this Recommend freq foot checks, proper fitting shoes Adequate blood sugar control 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 spxtsvuwh34/06/2025ody mass index (BMI) 40.0-44.9, adult05/25/2024Statin luqwgphtaad28/30/2024ardiomyopathy, /13/2024 Assessment & Plan (05/25/2024 6:47 AM EST): Noted from cardiology Current meds: b jazmine, aldactone, diuretics Coronary artery disease involving [place] coronary artery of [place] heart without angina abxvqzxn26/22/2024 Assessment & Plan (08/29/2024 6:35 AM EDT): Unable to tolerate statin Does take b jazmine Assessment & Plan (05/25/2024 6:48 AM EST): Unable to tolerate statin Does take b jazmine Assessment & Plan (04/12/2023 10:26 AM EST): S/p CABG and recent Normal Nuclear stress test. On ASA and BB. Intolerant to statins and not willing to try injectable. Asymptomatic. Factor V Leiden mutation ([facility])04/12/2023 Assessment & Plan (10/31/2024 6:28 AM EDT): On xarelto Assessment & Plan (05/25/2024 6:52 AM EST): On xarelto Type 2 diabetes mellitus with diabetic chronic kidney grcgvob9204/12/2023 Assessment & Plan (10/31/2024 6:28 AM EDT): Check blood sugars daily, notify if <70 or >200. Take medications (pills or insulin) as directed. Monitor for s/s of hypoglycemia (sweaty, dizziness, nausea, vomiting, or shakiness). Watch for increase in thirst, urination, or appetite. Inspect feet frequently monitoring for open wounds , andalso recommend yearly eye exam. Pt should attempt to remain as physically active as chronic conditions allow, as well as trying to follow a diet low in carbohydrates, and simple sugars. Current med: metformin, glipizide, intolerant to statins and yusef/arb, and no asa d/t Xarelto A1c: 6.4% 08/29/24 7% on 04/17/24 Assessment & Plan (08/29/2024 12:48 PM EDT): Check blood sugars daily, notify if <70 or >200. Take medications (pills or insulin) as directed. Monitor for s/s of hypoglycemia (sweaty, dizziness, nausea, vomiting, or shakiness). Watch for increase in thirst, urination, or appetite. Inspect feet frequently monitoring for open wounds , andalso recommend yearly eye exam. Pt should attempt [...] feet frequently monitoring for open wounds , andalso recommend yearly eye exam. Pt should attempt [...] metformin and glipizide. Medicare annual wellness visit, pbfdzmsdel63/22/2024 Assessment & Plan (08/29/2024 6:33 AM EDT): [...] screened for depression, fall risk, cognitive impairment. Dvowirskptfb51/26/2023ge-related nuclear cataract of both eyes09/23/2022History of coronary artery bypass graft02/09/2022History of deep vein thrombosis 02/09/2022History of pulmonary syckomfi37/21/2022ulmonary fmrlihbp92/20/2022 Assessment & Plan (10/31/2024 6:27 AM EDT): On xarelto Hairy cell leukemia, in bosbfajuj20/15/2016Unspecified atrial fibrillation 10/29/2011 Assessment & Plan (10/31/2024 6:27 AM EDT): B jazmine and xarelto A fib today , rate controlled Assessment & Plan (05/25/2024 11:26 AM EST): B jazmine and xarelto A fib today , rate controlled Assessment & Plan (01/10/2024 4:59 PM EDT): Currently taking Eliquis. Was admitted to [facility] for NSTEMI 12/24 Echo ordered EF was 60%-65% [facility] discharged, believed troponin elevations were related [...] Eliquis for stroke Px. No changes. Acquired llmcfchoauaxyq71/26/2011 Assessment & Plan (10/31/2024 6:28 AM EDT): Current med: levothyroxine Check labs yearly, and prn dose changes or changes in symptoms Assessment & Plan (08/29/2024 6:35 AM EDT): [...] EST): On Levothyroxine. 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 Monitor with periodic CBC. Essential pkvdtwoemicr93/26/2011 Assessment & Plan (10/31/2024 10:12 AM EDT): Please check blood pressure daily [...] however last week at cardiology was normal Assessment & Plan (08/29/2024 6:35 AM EDT): [...] elevated BP. C/w same. Check labs Generalized mxhgafjliiazvb77/26/2051Mjje35/26/0287Ufarrkmndongam94/26/2011Morbid (severe) obesity due to excess ihosdggm37/26/2011 Assessment & Plan (10/31/2024 6:28 AM EDT): Discussed with patient their BMI (actual, verses recommended). We have also discussed lifestyle modifications: attempts to perform physical activity as chronic conditions allow, also to monitor dietary intake: increasing protein/fruits/veggies and lowering carb intake (unless contraindicated). Limit sodas, juices, and sugary drinks. Assessment & Plan (08/29/2024 6:34 AM EDT): [...] sodas, juices, and sugary drinks. Resolved Problems ProblemNoted DateDiagnosed DateResolved DateCongestive heart bnsaqph5506/02/2023 05/25/2024Stage 3a chronic kidney hwsowzn16 Assessment & Plan (01/25/2024 11:06 AM EST): Most recent Creatinine: 1.28 eGFR 40 Continue to monitor closely Avoid nephrotoxic agents. Assessment & Plan (04/12/2023 10:26 AM EST): Stable, due to T2 DM and HTN Monitor. Avoid NSAIDS. Gastroesophageal reflux iditlhx98oronary atherosclerosis Overview (04/12/2023): CABG 2008 Encounters DateTypeDepartmentCare AcpfRkygbzctqel81/26/2025linisync Result Encounter [facility] Unsolicited Ирина Brown NP 11/13/2024Refill [facility] [address] [place] [address] Ирина Brown NP Nuzximmdhndiqx17/21/2025Refill [facility] [address] [place] [address] Ирина Brown NP Hypomagnesemia; Type 2 diabetes mellitus without complications (HCC)from Last 3 Months Immunizations ImmunizationAdministration DatesNext DueInfluenza, injectable, MDCK, preservative free, sfdqnfubrwoy08/05/2024Influenza, injectable, quadrivalent 02/26/2014Influenza, seasonal, svhmkkklsy38/07/2013Influenza, trivalent, ufdtmzuztr20/12/2021,12/28/2019,01/18/2019,02/01/2018,01/07/2017Pneumococcal Polysaccharide FIBL6810/03/2002 Family History Medical HistoryRelationNameCommentsHeart diseaseMotherDiabetesOtherHypertension OtherStrokeOtherRelationNameStatusCommentsMotherOther Social History Tobacco UseTypesPacks/DayYears UsedDateSmoking Tobacco: NeverPassive Smoke Exposure: NeverSmokeless Tobacco: Never Tobacco Cessation:Counseling Given: Not Answered Alcohol UseStandard Drinks/WeekCommentsNever0 (1 standard drink = 0.6 oz pure alcohol)PHQ-2AnswerDate RecordedPatient Health Questionnaire-2 Rwawg513 CommentsNoSex and Gender InformationValueDate RecordedSex Assigned at BirthNot on fileLegal FuqOlaxkh55/15/2023 7:06 PM EDTGender IdentityNot on file Sexual OrientationNot on file Last Filed Vital Signs Vital SignReadingTime TakenCommentsBlood Qrqzwbmp303/7808 9:22 AM EDT Blvkt5027/12/2025 9:22 AM BNWZoxpkdhkszm42.6 ??C (97.8 ??F)10/31/2024 9:22 AM EDTRespiratory Yeuq457010/31/2024 9:22 AM EDTOxygen Mujiozypfd69%10/31/2024 9:22 AM EDTInhaled Oxygen Concentration--Gzudyy691 kg (272 lb)05/25/2024 10:29 AM EST Ydeqbh884.7 cm (5' 8 )05/25/2024 10:29 AM ESTBody Mass Index41.3603 10:29 AM EST Plan of Treatment Health MaintenanceDue DateLast DoneCommentsPneumococcal Vaccine: 65+ Years (2 of 2 - PCV)COVID-19 Vaccine (2024- season)2024 01/21/2021, 05/21/2020, 04/23/2020Influenza Vaccine (#1)511/07/2023, 12/31/2020, 12/28/2019, Additional history exists Procedures Procedure NamePriorityDate/TimeAssociated DiagnosisCommentsALL MAGNESIUMRoutine 11/14/2024 10:29 AM EDT from Last 3 Months Results * (ABNORMAL) ALL MAGNESIUM (11/14/2024 10:29 AM EDT)ComponentValueRef RangeTest MethodAnalysis TimePerformed AtPathologist SignatureMAGNESIUM1.5(L)1.8 - 2.4 mg/dLTBHSpecimen (Source)Anatomical Location / LateralityCollection Method / VolumeCollection TimeReceived Time11/14/2024 10:29 AM EDT11/14/2024 10:31 AM EDT Narrative [facility] - 11/14/2024 11:03 AM EDT Authorizing ProviderResult TypeResult StatusLisa Aichholz NPCLINISYNCFinal ResultPerforming OrganizationAddressCity/State/ZIP CodePhone Number [facility] from Last [address] [place] [address] * Guarantor: Noy Espinoza TypeRelation to PatientDate of BirthPhone Billing AddressPersonal/XcjqxnPqil82/29/1936 [address] [place] [address] Care Teams Team MemberRelationshipSpecialtyStart DateEnd Date Fabricio Edouard MD PCP - GeneralFamily Medicine10/20/23 Ирина Brown NP Nurse PractitionerFamily Medicine05/25/24
--- OUTSIDE RECORDS SUMMARY | 2025-02-09 17:39 | XMS_ITS | CCD ---
Author Organization [facility] CliniSyaz Care Team Providers Care Family Consumer Scientist Name Role Phone Darrian Benton Unavailable Unavailable GLORIA, SARMED Admitting Unavailable GLORIA SARMED Attending Unavailable AMBROMARIO ANDERS Primary Care Unavailable ER, JOVANNI Referring Unavailable [place] Procedure Practitioner Unavailab le UNKNOWN, PROVIDER Surgeon Unavailable MD Quan Schultz Primary Care Provider [phone] MD Toi Johnson Admit Provider MD Brissa [...] Unava ilable Jacinto, Dr. Joseluis Warren Attending Julissa Casey, Dr. Joseluis Warren Referring Unava paula Casey, Dr. Joseluis Warren Attending Dr. Quan Mariano Referring Unavailable Jacinto, Dr. Joseluis Warren Attending Julissa Mohan DO Ren Admit Provider [phone] DO Nelson Orourke Attending Provider YOAN Meza-C Emilie Wells Primary Care [facility] er Fabricio Edouard MD Primary Care Provider Derrick PAPER COATING MACHINE OPERATOR, Emilie Unavailable Derrick PAPER COATING MACHINE OPERATOR, Emilie Unavailable [phone] Kevin PAPER COATING MACHINE OPERATOR, Ирина Unavailable Derrick PAPER COATING MACHINE OPERATOR-C, Emilie Wells Primary Care [facility] er Alfonso Kendrick DO Attending Provider Shaikh Schultz MD Primary Care Provider JOSELUIS CASEY Attending Unavailable JOSELUIS CASEY Referring Unavailable SHAIKH SCHULTZ Primary Care Unavailable ИРИНА BROWN Attending Unavailable DORETHAHИРИНА VILCHIS Attending Unavailable DORETHAHИРИНА VILCHIS Attending Unavailable EMILIE MEZA Attending UnavailEMILIE Sawant Attending UnavailEmilie Sawant Primary Care Unavaila ble Alfonso Kendrick Attending Unavailable Alfonso Kendrick Admitting Unavailable Kevin PAPER COATING MACHINE OPERATOR-CИрина Primary Care Provider Kevin PAPER COATING MACHINE OPERATOR-CИрина Attending Provider Allergies Allergy ClassificationReported Allergen(s)Allergy TypeDate of OnsetReaction(s) Facility (3 sources)AlbuterolDrug Xjzkekd19-89-7223Atmmild ReactionThe [facility] (20 sources)AlbuterolDrug Djuoowr27-83-7543PR[facility] (20 sources)atorvastatinDrug Tyxxdgj01-56-8802NilmohirVOQW Healthcare (20 sources)ClarithromycinAllergy to vlosrmwgg63-81-7768qamypzzIGXW Healthcare (20 sources)ezetimibeDrug Prhembb04-51-5798Avnjdbd ReactionResearch Psychiatric Center (18 sources)Angiotensin-converting enzyme inhibitor agent; Translations: [YUSEF INHIBITORS]Drug Dvffszzyqxu72-43-8486VebobNBQC Healthcare Work Phone: (16 sources)OtherPropensity to adverse gbagwkzba55-02-0541AxqkeEZSI Healthcare (2 sources)Angiotensin II receptor antagonist; Translations: [ARB-ANGIOTENSIN RECEPTOR ANTAGONIST]Propensity to adverse reactions to ogiv00-78-7854[facility] Work Phone: (1 source)Angiotensin-converting enzyme inhibitor agentPropensity to adverse reactions to aedl42-97-0888GybkcZdtwbqrodoLakeHealth Beachwood Medical Center (2 sources)HMG-CoA reductase inhibitor; Translations: [SQFQINR-QTN-GZV REDUCTASE INHIBITORS]Propensity to adverse kmapcmyee28-45-5056KvfaoaoAjopvbxegvTriHealth Good [facility] (1 source)AlbuterolDrug Wzilcdr61-80-6585WbytcjbxmOhio State Health System Repository Medications Current Medications MedicationDrug Class(es)DatesSig (Normalized)Sig (Original)allopurinol 300 mg oral tablet (20 sources)Xanthine Oxidase InhibitorStart: 06-22-2022 End: 09-46-4210verp 1 tablet by mouth once dailyAllopurinol 300 mg tablet Active 300 MG PO Daily June 22, 2022 12:00am Complies with drug therapyStart: 04-13-2019 End: 34-42-6684htzc 1 tablet by mouth twice dailyAllopurinol 100 mg Tablet Discontinued 100 MG PO Twice daily April 13, 2019 1:00am June 22, 2022 3:38amBlood Glucose Monitoring Suppl (Accu-Chek Dione Plus) w/Device kit (6 sources)Start: 10-31-2024 End: 56-11-2730Nbtmy Glucose Monitoring Suppl (Accu-Chek Dione Plus) w/Device kit Indications: Type 2 diabetes mellitus with stage 3b chronic kidney disease, without long-term current use of insulin (HCC) 1 each Daily 1 kit 10/31/2024 10/31/2025 Active End: 84-03-4829Ljsar Glucose Monitoring Suppl (Accu-Chek Dione Plus) w/Device kit 1 each Daily 10/31/2024 Discontinued (Reorder)cholecalciferol 0.05 mg oral tablet (1 source)Vitamin DStart: 91-72-1512zlxn 1 tablet by mouth once daily Cholecalciferol (Vitamin D3) 50 mcg (2,000 unit) tablet Active 50 MCG PO Daily January 01, 2025 12:00am Complies with drug therapyfurosemide 40 mg oral tablet (20 sources)Loop DiureticStart: 04-13-2019 End: 32-52-3234dcsk 1 tablet by mouth once dailyFurosemide 40 mg tablet Active 40 MG PO Daily June 22, 2022 12:00am Complies with drug therapyglipiZIDE 10 mg oral tablet (20 sources)SulfonylureaStart: 06-22-2022 End: 04-63-5818hkvh 1 tablet by mouth twice daily at mealtimeGlipizide 10 mg tablet Active 10 MG PO .bid with meals January 01, 2025 9:35am Complies with drugtherapyStart: 04-13-2019 End: 03-86-8201rzjk 1 tablet by mouth twice dailyGlipizide 5 mg Tablet Extended Release 24hr Discontinued 5 MG PO Twice daily April 13, 2019 1:00am June 22, 2022 3:38amtake 1 tablet by mouth twice dailyglipiZIDE XL (Glucotrol XL) 10 mg 24 hr tablet Take 1 tablet (10 mg) by mouth 2 times a day. Do notcrush, chew, or split. Activelevothyroxine sodium 0.2 mg oral tablet (20 sources)l-ThyroxineStart: 04-13-2019 End: 53-42-2402ybsu 1 tablet by mouth once dailyLevothyroxine 200 mcg tablet Active 200 MCG PO Daily June 22, 2022 12:00am Complies with drug therapytake 1 capsule by mouth once daily in the morningLevothyroxine Sodium 200 MCG Oral Capsule TAKE 1 CAPSULE DAILY IN THE MORNING Quantity: 0 Refills: 0 Ordered: 01-Jul-2022 DO Activelosartan potassium 100 mg oral tablet (7 sources)Angiotensin 2 Receptor BlockerStart: 46-19-5340hgos 1 tablet by mouth once dailymagnesium oxide 250 mg oral tablet (10 sources)Start: 18-03-8672lwyx 1 tablet by mouth twice dailyMagnesium Oxide 250 mg magnesium tablet Active 250 MG PO Twice daily January 01, 2025 12:00am Complies with drug therapyStart: 09-15-2024 End: 28-35-8502rifs 1 tablet by mouth once dailyMagnesium Oxide 400 mg (241.3 mg magnesium) tablet Discontinued 400 MG PO Daily December 29, 2024 12:00am January 01, 2025 9:37am24 hr metoprolol succinate 50 mg extended release oral tablet (20 sources)beta-Adrenergic BlockerStart: 05-08-2024 End: 16-19-9139piku 3 tablets by mouth once dailymetoprolol succinate XL (Toprol-XL) 50 MG 24 hr tablet TAKE 3 TABLETS BY MOUTH ONCE DAILY DO NOT CRUSH OR CHEW 05/08/2024 ActiveStart: 99-58-6021Vbandxbtam Succinate 50 mg Tablet Extended Release 24 Hr Active 150 MG PO Daily 90 June 23, 2022 12:00am Complies with drug therapyStart: 77-17-1948gdzg 150 mg by mouth once daily Metoprolol Succinate Active 150 MG PO Daily 90 June 23, 2022 12:00amStart: 06-22-2022 End: 82-39-6633hvsb 1 tablet by mouth once dailyMetoprolol Succinate 100 mg tablet extended release 24 hr Discontinued 100 MG PO Daily June 22, 2022 12:00am June 23, 2022 12:19pmStart: 04-13-2019 End: 64-77-6971tsoh 1 capsule by mouth once dailyMetoprolol Succinate 50 mg Capsule,Sprinkle,Er 24hr Discontinued 50 MG PO Daily April 13, 2019 1:00am June 22, 2022 3:38am End: 53-93-8146doso 1 tablet by mouth every twenty-four hours in the morning metoprolol succinate XL (Toprol-XL) 100 MG 24 hr tablet Take 1 tablet by mouth in the morning. 05/25/2024 Discontinuedtake 3 tablets by mouth once daily Metoprolol Succinate ER 50 MG Oral Tablet Extended Release 24 Hour TAKE 3 TABLET Daily Quantity: 270 Refills: 0 Ordered: 15-Sep-2022 Joseluis Casey DO Active rivaroxaban 15 mg oral tablet (20 sources)Factor Xa InhibitorStart: 06-23-2022 End: 29-32-5687ekxn 1 tablet by mouth once dailyRivaroxaban (Xarelto) 15 mg Tablet Active 15 MG PO DAILY@17 30 June 23, 2022 12:00am Complies with drug therapyStart: 06-22-2022 End: 28-76-7116ohhl 1 tablet by mouth at bedtimeRivaroxaban (Xarelto) 20 mg tablet Discontinued 20 MG PO Bedtime June 22, 2022 12:00am June 12:19pmspironolactone 25 mg oral tablet (14 sources)Aldosterone Antagonist End: 63-14-1792vkhytkvvrudwmr (Aldactone) 25 MG tablet Oral 05/25/2024 Discontinued (Therapy completed) Completed/Discontinued Medications MedicationDrug Class(es)DatesSig (Normalized)Sig (Original)atorvastatin 40 mg oral tablet (7 sources)HMG-CoA Reductase InhibitorStart: 06-23-2022 End: 48-58-6911zmkj 1 tablet by mouth once daily in the eveningAtorvastatin 40 mg Tablet Discontinued 40 MG PO Every evening June 23, 2022 12:00am 2024 9:34amclopidogrel 75 mg oral tablet (5 sources)P2Y12 Platelet InhibitorStart: 04-13-2019 End: 09-40-6185oxqd 1 tablet by mouth once dailyClopidogrel 75 mg Tablet Discontinued 75 MG PO Daily April 13, 2019 1:00am June 22, 2022 3:38am digoxin 0.125 mg oral tablet (5 sources)Cardiac GlycosideStart: 04-13-2019 End: 02-43-4948wphh 1 tablet by mouth once dailyDigoxin 125 mcg (0.125 mg) Tablet Discontinued 125 MCG PO Daily April 13, 2019 1:00am April 17, 2019 3:13pmmetFORMIN hydrochloride 500 mg oral tablet (20 sources)BiguanideStart: 04-13-2019 End: 68-00-3089jymc 1 tablet by mouth twice dailyMetformin 500 mg tablet Discontinued 500 MG PO Twice daily June 22, 2022 12:00am January 01, 2025 9:40amprobenecid 500 mg oral tablet (5 sources)Start: 04-13-2019 End: 42-32-6666pejj 1 tablet by mouth once dailyProbenecid 500 mg Tablet Discontinued 500 MG PO Daily April 13, 2019 1:00am June 22, 2022 3:38am ramipril 10 mg oral capsule (5 sources)Angiotensin Converting Enzyme InhibitorStart: 04-13-2019 End: 83-16-3694lint 1 capsule by mouth once dailyRamipril 10 mg Capsule Discontinued 10 MG PO Daily April 13, 2019 1:00am June 22, 2022 3:38am warfarin sodium 5 mg oral tablet (5 sources)Vitamin K AntagonistStart: 04-13-2019 End: 84-87-0521Zsdukxqi 5 mg Tablet Discontinued 0 .ROUTE .COMPLEX April 13, 2019 1:00am June 22, 2022 3:38am Per Dr. Ewing in [place] instructions 5mg everyday besides Wednesday and Wednesday which then she takes 7.5mg Problems Active Problems Problem ClassificationProblemDateDocumented DateEpisodic/ChronicAcute and unspecified renal failure (5 sources)Injury of kidney; Translations: [Acute kidney failure, unspecified] 53-26-2554WdrettaeJwziqcs on above:Problem List clean-up per request of Phys. EHR CmteAcute myocardial infarction (9 sources)Non-ST elevation (NSTEMI) myocardial infarction; Translations: [Myocardial infarction]Onset: 587106-27-9882GiyisdaIcitke; peripheral; and visceral artery aneurysms (5 sources)Ascending aorta dilatation; Translations: [Thoracic aortic ectasia] 43-08-1282EkppfknTqbnytu on above:Problem List clean-up per request of Phys. EHR CmteCardiac dysrhythmias (20 sources)Atrial fibrillation; Translations: [Unspecified atrial fibrillation] Onset: 478314-32-9942MgtdeugHgbqjmi on above:Problem List clean-up per request of Phys. EHR CmteCataract (20 sources)Bilateral age-related nuclear cataracts; Translations: [Age-related nuclear cataract, bilateral]Onset: 845844-82-1315VvkgloyVuewekh kidney disease (20 sources)Chronic kidney disease stage 3; Translations: [Stage 3 chronic kidney disease]Onset: 04-12-2023 Resolved: 164169-31-7515GzqwdjzIxbxfak on above:Problem List clean-up per request of Phys. EHR CmteCoagulation and hemorrhagic disorders (20 sources)Factor V Leiden mutation; Translations: [Activated protein C resistance]Onset: 086215-00-1797GwxhcibQkgliwb on above:Problem List clean-up per request of Phys. EHR CmteCongestive heart failure; nonhypertensive (20 sources)Symptomatic congestive heart failure; Translations: [Congestive heart failure, unspecified]Onset: 07-23-2022 Resolved: 302834-38-2437JoizynoDavyrduq atherosclerosis and other heart disease (20 sources)Coronary arteriosclerosis; Translations: [Atherosclerotic heart disease of crow coronary artery without angina pectoris]Onset: 12-15-2010 Resolved: 690342-76-0582UjydcdsVypviyw on above:Problem List clean-up per request of Phys. EHR CmteCoronary atherosclerosis and other heart disease (5 sources)Presence of coronary angioplasty implant and graft; Translations: [Percutaneous transluminal coronary angioplasty status]Onset: 06-23-2022 34-85-9237BqarqxroYvvdktvkqa and other anemia (5 sources)Anemia; Translations: [Anemia, unspecified]56-00-3215VwhhlnpyBmigqjx on above:Problem List clean-up per request of Phys. EHR CmteDeficiency and other anemia (5 sources)Iron deficiency anemia; Translations: [Iron deficiency anemia, unspecified]90-01-0247NbipfexjAmcklpe on above:Problem List clean-up per request of Phys. EHR CmteDiabetes mellitus with complications (20 sources)Type 2 diabetes mellitus with diabetic polyneuropathy; Translations: [Type 2 diabetes mellitus withdiabetic chronic kidney disease]Onset: 07-03-2021 ChronicDiabetes mellitus without complication (20 sources)Diabetes mellitus; Translations: [Type 2 diabetes mellitus without complications]Onset: 622610-46-5624GaqvkwlQqdxxut on above:Problem List clean-up per request of Phys. EHR CmteDisorders of lipid metabolism (20 sources)Pure hypercholesterolemia, unspecified; Translations: [Hyperlipidemia, unspecified]Onset: 887944-49-6868GliryukHnsemyeepj disorders (5 sources)Esophagitis; Translations: [Esophagitis determined by endoscopy] 72-15-1117NguwehyrGbxqrga on above:Problem List clean-up per request of Phys. EHR CmteEssential hypertension (20 sources)Hypertensive disorder; Translations: [Essential (primary) hypertension]Onset: 484659-65-6568CgifsouEouitbo on above:Problem List clean-up per request of Phys. EHR CmteGenitourinary symptoms and ill-defined conditions (1 source)Personal history of urinary (tract) infections; Translations: [PERS HX URINARY TRACT INFECTIONS]Onset: 20-69-7678OnyseztpYpdp and other crystal arthropathies (20 sources)Gout; Translations: [Gout, unspecified]Onset: ChronicComment on above:Problem List clean-up per request of Phys. EHR Cmte Hypertension with complications and secondary hypertension (1 source)Hypertensive heart disease with heart failure; Translations: [HTN HEART DISEASE W/HEART FAIL]Onset: 52-62-2715YxynscwIzhlcpcz disorders (19 sources)Secondary immune deficiency disorder; Translations: [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 elsewhere]Onset: 05-25-2024 88-18-4817WhqffozQuezvgrtursvr and screening for infectious disease (4 sources)Patient encounter status; Translations: [Other specified vaccination] Resolved: 827384-51-4319WkcupwcnOolorlpiu (20 sources)Acute leukemia of unspecified cell type, in remission; 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 EHR Cmte Osteoarthritis (20 sources)Degenerative joint disease involving multiple joints; Translations: [Polyosteoarthritis, unspecified]Onset: 219887-93-7233PuivurgGeqxi aftercare (5 sources)Long-term current use of anticoagulant; Translations: [residential (current) use of anticoagulants]19-48-0848PwbfqydmHeqwpdl on above:Problem List clean-up per request of Phys. 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 EHR CmteOther hematologic conditions (2 sources)Other specified abnormalities of plasma proteins; Translations: [Other abnormal blood chemistry]73-28-8810SezzfoozNyutc lower respiratory disease (5 sources)Dyspnea; Translations: [Dyspnea, unspecified]52-81-9261Xcupjlzx Comment on above:Problem List clean-up per request of Phys. EHR CmteOther lower respiratory disease (5 sources)Multiple nodules of lung; Translations: [Other nonspecific abnormal finding of lung field]63-46-5115ZnwjjcvkJzgpwfi on above:Problem List clean-up per request of Phys. EHR CmteOther lower respiratory disease (2 sources)Dyspnea, unspecified; Translations: [Other respiratory abnormalities] 38-04-5159WrkfvzneRaotv nutritional; endocrine; and metabolic disorders (1 source)Morbid (severe) obesity due to excess calories; Translations: [MORBID SEVERE OBES D/T EXCESS TAIWO]Onset: 68-34-7513JdgrjvbBrofs nutritional; endocrine; and metabolic disorders (1 source)Body mass index (BMI) 45.0-49.9, adult; Translations: [BODY MASS INDEX BMI 45.0-49.9 ADULT]Onset: 54-69-6214UdwxrawHfvhj nutritional; endocrine; and metabolic disorders (11 sources)Morbid obesity; Translations: [Morbid (severe) obesity due to excess calories]Onset: 677795-48-7734FixniyqCtbou nutritional; endocrine; and metabolic disorders (20 sources)Obesity caused by energy imbalance; Translations: [Morbid (severe) obesity due to excess calories]Onset: 170416-61-1275IyhuishBoqxz nutritional; endocrine; and metabolic disorders (19 sources)Body mass index 40+ - severely obese; Translations: [Body mass index (BMI) 40.0-44.9, adult]Onset: 202514-28-7835BysrgkiRdwog nutritional; endocrine; and metabolic disorders (15 sources)Hypomagnesemia; Translations: [Hypomagnesemia]Onset: 08-29-2024 23-36-7840KumfjzsVcywl nutritional; endocrine; and metabolic disorders (4 sources)Hyperuricemia without signs of inflammatory arthritis and tophaceous disease; Translations: [Hyperuricemia without signs of inflammatory arthritis and tophaceous disease]54-89-6416EpwnjykxTibay screening for suspected conditions (not mental disorders or infectious disease) (11 sources)Deviation of international normalized ratio from target range; Translations: [Abnormal coagulation profile]14-88-2457QzsxwggsNhkummr on above: Problem List clean-up per request of Phys. EHR CmtePhlebitis; thrombophlebitis and thromboembolism (20 sources)Personal history of other venous thrombosis and embolism; Translations: [H/O: Deep vein thrombosis]Onset: 173439-95-8940Hevkrbap Pulmonary heart disease (20 sources)History of arterial thrombosis; Translations: [Personal history of pulmonary embolism]Onset: 508079-23-3377PfjdyxquBzfdjxd on above:Problem List clean-up per request of Phys. EHR CmteResidual codes; unclassified (5 sources)H/O cardiac surgery; Translations: [Other specified postprocedural states]74-98-7859HzlxzseoAbytuog on above:l5Fdpurqc List clean-up per request of Phys. EHR CmteResidual codes; unclassified (2 sources)Other specified postprocedural states; Translations: [Other postprocedural status]21-67-8357NciuhzvgUuwbgxml codes; unclassified (20 sources)Other specified health status; Translations: [Other drug allergy] Onset: 532952-64-2362VbchzvhoGunedefe codes; unclassified (2 sources)Never smoked tobacco; Translations: [Other specified health status] Onset: 039057-33-3981CpzczlybDfbyccv disorders (20 sources)Hypothyroidism; Translations: [Hypothyroidism, unspecified]Onset: 955492-52-1388CaomwmcOwkbpzl on above:Problem List clean-up per request of Phys. EHR CmteUnclassified (1 source)CHRN KIDNEY DISEASE STG 3 UNSP; Translations: [CHRN KIDNEY DISEASE STG 3 UNSP]Onset: 10-01-2021 Past or Other Problems Problem ClassificationProblemDateDocumented DateEpisodic/ChronicEsophageal disorders (20 sources)Gastroesophageal reflux disease; Translations: [Gastro-esophageal reflux disease without esophagitis]Onset: 10-29-2011 Resolved: 579070-95-8800HqfhqfnXbra disorders (20 sources)Mood disordersOnset: 04-12-2023 Resolved: Other nutritional; endocrine; and metabolic disorders (1 source)Hyperuricemia without signs of inflammatory arthritis and tophaceous disease; Translations: [HU W/OSIGNS IA AND TOPHACEOUS DZ]Onset: 07-03-2021 EpisodicUnclassified (2 sources)Never smoked tobacco; Translations: [Never a smoker]Unclassified (11 sources)Onset: 08-29-2024 Resolved: Results Test NameValueInterpretationReference RangeFacilityALL MAGNESIUMon 11-14-2024 Interpretation and review of laboratory resultsAbnormalNOMS HealthcareMagnesium [Mass/Vol]1.5 mg/dLLow1.8 - 2.4 mg/dLNOMS HealthcareCLINISYNCNOMS HealthcareALL CBC WITH AUTO DIFFon 96-51-4127SLBDKQLJC ABSOLUTE AUTO0.1[facility] Basophils/100 WBC (Bld)1.1 %0.2 - 2.0 %NOMS HealthcareEosinophils/100 WBC (Bld) 2.2 %0.9 - 7.0 %NOMS HealthcareErythrocyte distribution width (RBC) [Ratio]13.8 %11.0 - 15.0 %NOM HealthcareHematocrit (Bld) [Volume fraction]42.7 %36.0 - 48.0 %[facility] HealthcareHemoglobin (Bld) [Mass/Vol]13.7 g/dL12.0 - 16.0 g/dLMOAB REGIONAL [facility]OS[facility]ITAL HealthcareIMMATURE GRANULOCYTES ABS AUTO0.03NOMS HealthcareImmature granulocytes/100 WBC (Bld)0.4 %0.0 - 0.5 %[facility] CenterLYMPHOCYTES ABSOLUTE AUTO1.7NOMS HealthcareLymphocytes/100 WBC (Bld)23.6 %20.5 - 60.0 %[facility]HealthH (RBC) [Entitic mass]30 pg26.7 - 34.0 pgNOSaint Alexius HospitalHC (RBC) [Mass/Vol]32.1 g/dL29.9 - 35.2 g/dLResearch Psychiatric CenterMCV (RBC) [Entitic vol]93.4 fL 81.0 - 99.0 fLResearch Psychiatric CenterMONOCYTES ABSOLUTE AUTO0.7NOFulton Medical Center[facility] Monocytes/100 WBC (Bld)9 %1.7 - 12.0 %[facility] CenterNEUTROPHILS ABSOLUTE AUTO 4.6NOMS HealthcareNeutrophils/100 WBC (Bld)63.7 %43.0 - 75.0 %[facility] Platelet mean volume (Bld) [Entitic vol]11.4 fL9.5 - 13.5 fLResearch Psychiatric CenterTB EO #0.2NOMS HealthcareTB [id number] [facility] HospitalTB RBC4.57NOMS [facility] HospitalTB WBC 7.2NOMS HealthcareCLINISYNCNAMG [facility]TY [facility] JhhgvmthkdAcL8h (Bld) [Mass fraction]on 03-27-9458Uswdgmdneazccl and review of laboratory resultsAbnormalUniversity of [facility] HealthcareLaboratory - Hematology and Cell countson 03-71-6179YkH0j (Bld) [Mass fraction]6.4 %[facility] HealthcareUrine Cultureon 90-79-3646Sbkonozw identified Cx Nom (U)>100,000 colonies/ml mixed bacterial skin contaminants 2 Days PERFORMED BY: [facility] [place] [address] PATHOLOGIST FITNESS SALES ASSOCIATE RIC BASS M.D.[facility] Room Physician GroupComment on above: Performed By: #### CUU #### [facility] [address] [id number] [facility] CENTERALL CBC WITH AUTO DIFFon 35-87-3941XNRWFYELQ ABSOLUTE AUTO 0.1NOMS HealthcareBasophils/100 WBC (Bld)1.1 %0.2 - 2.0 %[facility] Eosinophils/100 WBC (Bld)2.9 %0.9 - 7.0 %NOMS HealthcareErythrocyte distribution width (RBC) [Ratio]13.8 %11.0 - 15.0 %NOMS HealthcareHematocrit (Bld) [Volume fraction]45.2 %36.0 - 48.0 %NOMS HealthcareHemoglobin (Bld) [Mass/Vol]14.9 g/dL 12.0 - 16.0 g/dLNOLA HealthcareIMMATURE GRANULOCYTES ABS AUTO0.03[facility] Immature granulocytes/100 WBC (Bld)0.4 %0.0 - 0.5 %NOMS HealthcareLYMPHOCYTES ABSOLUTE AUTO2.6NOMS HealthcareLymphocytes/100 WBC (Bld)34.2 %20.5 - 60.0 %NOMS HealthcareMCH (RBC) [Entitic mass]31 pg26.7 - 34.0 pgNOMS HealthcareMCHC (RBC) [Mass/Vol]33 g/dL29.9 - 35.2 g/dLNOLA HealthcareMCV (RBC) [Entitic vol]94.2 fL 81.0 - 99.0 fLNOLA HealthcareMONOCYTES ABSOLUTE AUTO0.8[facility] Monocytes/100 WBC (Bld)10.3 %1.7 - 12.0 %NOMS HealthcareNEUTROPHILS ABSOLUTE AUTO3.9NOMS HealthcareNeutrophils/100 WBC (Bld)51.1 %43.0 - 75.0 %NOMS HealthcarePlatelet mean volume (Bld) [Entitic vol]11.6 fL9.5 - 13.5 fLNOMS HealthcareTBH EO #0.2NOMS HealthcareTBH [id number] HealthcareTBH RBC4.8NOMS HealthcareTBH WBC7.6NOMS HealthcareCLINISYNCNOMS HealthcareGlucose Glucometer (BldC) [Mass/Vol]Ordered By: Nelson Orourke on 19-78-1970Kqjwqbv [Mass/Vol]144 mg/dLOhio State Health SystemComment on above:Random Glucose Reference Range is dependent on time and content of last meal. Glucose of more than 200 mg/dL in a nonstressed, ambulatory subject supports the diagnosis of Diabetes Mellitus.Basophils Auto (Bld) [#/Vol]Ordered By: Ren Mohan on 12-27-2023 Basophils (Bld) [#/Vol]0.1 10*3/uL0.0-0.2FHenry County Hospital Basophils/100 WBC Auto (Bld)Ordered By: Ren Mohan on 12-27-2023 Basophils/100 WBC (Bld)0.8 %.[facility] SystemCalcium [Mass/volume] in Serum or PlasmaOrdered By: Ren Mohan on 49-16-8056Imbrxke [Mass/Vol]8.6 mg/dL8.6-10.3FHenry County HospitalCarbon dioxide, total [Moles/volume] in Serum or PlasmaOrdered By: Ren Mohan on 12-27-2023 CO2 [Moles/Vol]24.9 mmol/L21.0-31.0[facility] SystemChloride [Moles/volume] in Serum or PlasmaOrdered By: Ren Mohan on 12-27-2023 Chloride [Moles/Vol]102 mmol/Y17-105YvtrazbnaOhio State Health SystemCreatinine [Mass/volume] in Serum or PlasmaOrdered By: Ren Mohan on 12-27-2023 Creatinine [Mass/Vol]1.12 mg/dL0.60-1.20[facility] Eosinophils Auto (Bld) [#/Vol]Ordered By: Ren Mohan on 12-27-2023 Eosinophils (Bld) [#/Vol]0.2 10*3/uL0.0-0.45[facility] Eosinophils/100 WBC Auto (Bld)Ordered By: eRn Mohan on 12-27-2023 Eosinophils/100 WBC (Bld)3.4 %.[facility] SystemErythrocyte distribution width Auto (RBC) [Ratio]Ordered By: Ren Mohan on 12-27-2023 Erythrocyte distribution width (RBC) [Ratio]14.4 %11.9-15.3FHenry County HospitalGlucose [Mass/volume] in Serum or PlasmaOrdered By: Ren Mohan on 24-39-4998Rxwmfpw [Mass/Vol]172 mg/cOWzii19-585KyeiyianpOhio State Health SystemComment on above:ADA recommended reference rangeRandom Glucose Reference Range is dependent on time and content of last meal. Glucose of more than 200 mg/dL in a nonstressed, ambulatory subject supports the diagnosisof Diabetes Mellitus.Hematocrit Auto (Bld) [Volume fraction]Ordered By: Ren Mohan on 62-87-8368Hqmhrxykon (Bld) [Volume fraction]39.7 %34.0-46.4FHenry County HospitalHemoglobin [Mass/volume] in BloodOrdered By: Rne Mohan on 04-82-9761Dkttzffyff (Bld) [Mass/Vol]13.5 g/dL11.8-15.4FHenry County HospitalLeukocytes [#/volume] corrected for nucleated erythrocytes in Blood by Automated counOrdered By: Ren Mohan on 73-39-3973BYG corrected for nucl RBC Auto (Bld) [#/Vol]7.1 10*3/uL3.8-11.6FHenry County Hospital Lymphocytes Auto (Bld) [#/Vol]Ordered By: Ren Mohan on 12-27-2023 Lymphocytes (Bld) [#/Vol]2.4 10*3/uL1.00-4.8[facility] Lymphocytes/100 WBC Auto (Bld)Ordered By: Ren Mohan on 12-27-2023 Lymphocytes/100 WBC (Bld)34.5 %.[facility]H Auto (RBC) [Entitic mass]Ordered By: Ren Mohan on 73-92-8857VBI (RBC) [Entitic mass] 31.6 pg24.7-34.3FHenry County HospitalMCHC Auto (RBC) [Mass/Vol] Ordered By: Ren Mohan on 43-29-1164HYBU (RBC) [Mass/Vol]33.9 g/dL32.0-35.0 [facility] SystemMCV Auto (RBC) [Entitic vol]Ordered By: Ren Mohan on 19-52-8539APD (RBC) [Entitic vol]93.2 vL65-728JxwmtdpclOhio State Health SystemMagnesium [Mass/volume] in Serum or PlasmaOrdered By: Ren Mohan on 05-77-1379Wnkaxkubi [Mass/Vol]1.9 mg/dL1.9-2.7FHenry County HospitalMonocytes Auto (Bld) [#/Vol]Ordered By: Ren Mohan on 38-79-3631Lczyrfsya (Bld) [#/Vol]0.9 10*3/uLHigh0.0-0.8[facility] SystemMonocytes/100 WBC Auto (Bld)Ordered By: Ren Mohan on 34-79-9194Tsfjhmacv/100 WBC (Bld)12.5 %.[facility] Neutrophils Auto (Bld) [#/Vol]Ordered By: Ren Mohan on 12-27-2023 Neutrophils (Bld) [#/Vol]3.5 10*3/uL1.8-7.7FHenry County Hospital Neutrophils/100 WBC Auto (Bld)Ordered By: Ren Mohan on 12-27-2023 Neutrophils/100 WBC (Bld)48.8 %.[facility] SystemNo Panel InformationOrdered By: Ren Mohan on 26-98-7931Ljprfyufw GFR (CKD-EPI)47.889 mL/MinOhio State Health SystemPharmacy Creatinine Clearance (Chem52.61 [facility] SystemNucleated erythrocytes [Presence] in Blood by Automated countOrdered By: Ren Mohan on 00-12-6813Vlqoqynsd RBC Auto Ql (Bld)0.0 /100{WBC}0-0.5FHenry County HospitalPlatelet mean volume Auto (Bld) [Entitic vol]Ordered By: Ren Mohan on 75-71-6609Xrnolcxw mean volume (Bld) [Entitic vol]9.9 fL6.3-10.7FHenry County Hospital Platelets Auto (Bld) [#/Vol]Ordered By: Ren Mohan on 11-33-7887Bzckyhctm (Bld) [#/Vol]175 10*3/eG120-725OobuampyrOhio State Health SystemPotassium [Moles/volume] in Serum or PlasmaOrdered By: Ren Mohan on 12-27-2023 Potassium [Moles/Vol]3.6 mmol/L3.5-5.1FHenry County HospitalRBC Auto (Bld) [#/Vol]Ordered By: Ren Mohan on 35-53-7673TFS (d) [#/Vol]4.26 10*6/uL3.60-5.00Fostoria City Hospitalerum or plasma anion gap determinationOrdered By: Ren Mohan on 74-96-3753Ufloh gap [Moles/Vol]11.7 mmol/L6.0-15.0Fostoria City Hospitalodium [Moles/volume] in Serum or PlasmaOrdered By: Ren Mohan on 81-03-4532Reslxa [Moles/Vol]135 mmol/LLow 136-145[facility] SystemUrea nitrogen [Mass/volume] in Serum or PlasmaOrdered By: Ren Mohan on 09-05-3986Lvju nitrogen [Mass/Vol]38 mg/dL High7-25[facility] SystemWBC Auto (d) [#/Vol]Ordered By: Ren Mohan on 05-31-4593MUS (d) [#/Vol]7.1 10*3/uL3.8-11.6FHenry County HospitalAlanine aminotransferase [Enzymatic activity/volume] in Serum or PlasmaOrdered By: Apryl Shirley on 62-91-1506TFI [Catalytic activity/Vol]11 U/L7-52[facility] SystemAlbumin [Mass/volume] in Serum or Plasma by Bromocresol green (BCG) dye binding methoOrdered By: Apryl Shirley on 83-28-7313Behswcc BCG dye [Mass/Vol]3.3 g/dLLow3.5-5.7FHenry County HospitalAlkaline phosphatase [Enzymatic activity/volume] in Serum or PlasmaOrdered By: Apryl Shirley on 12-92-8340HYW [Catalytic activity/Vol]77 U/M40-191TfzndotxpOhio State Health SystemAspartate aminotransferase [Enzymatic activity/volume] in Serum or PlasmaOrdered By: Apryl Shirley on 93-84-3136IZL [Catalytic activity/Vol]17 U/H82-16GghlbnklzOhio State Health System Bilirubin.direct [Mass/volume] in Serum or PlasmaOrdered By: Apryl Shirley on 48-11-6536Ruhhmvida.direct [Mass/Vol]0.10 mg/dL0.03-0.18FHenry County HospitalBilirubin.total [Mass/volume] in Serum or PlasmaOrdered By: Apryl Shirley on 18-94-2870Bnrmzljjc [Mass/Vol]0.5 mg/dL0.3-1.0[facility] SystemGlobulin Calc (S) [Mass/Vol]Ordered By: Apryl Shirley on 06-65-3166Zgmrlkpr (S) [Mass/Vol]3.4 g/dLOhio State Health System Protein [Mass/volume] in Serum or PlasmaOrdered By: Apryl Shirley on 12-26-2023 Protein [Mass/Vol]6.7 g/dL6.4-8.9Fostoria City Hospitalerum or plasma albumin/globulin mass ratioOrdered By: Apryl Shirley on 12-26-2023 Albumin/Globulin [Mass ratio]1.0 {ratio}[facility] City Hospitalerum or plasma non-glucuronidated bilirubin measurement (mass/volume)Ordered By: Apryl Shirley on 88-77-1005Efuvuhics.indirect [Mass/Vol]0.4 mg/dLOhio State Health SystemThyrotropin [Units/volume] in Serum or PlasmaOrdered By: Ren Mohan on 41-65-6740U[facility] Qn0.61 m[IU]/L0.45-5.33[facility] SystemTroponin I.cardiac [Mass/volume] in Serum or Plasma by Detection limit <= 0.01 ng/Ordered By: Apryl Shirley on 44-83-2108Nkyayxbg I.cardiac DL <= 0.01 ng/mL [Mass/Vol]73.3 pg/mLHigh0.0-15.0[facility] Comment on above:Critical Result : Called to and read back by: CLAUDIA ARELLANO at: 12/26/2023 07:38:15 by:SPENCERActivated partial thromboplastin time (aPTT) in platelet poor plasma by coagulation aOrdered By: Ren Mohan on 12-25-2023 aPTT Coag (PPP) [Time]33.2 s25.1-36.5FHenry County HospitalComment on above:A hematocrit value greater than 55% may lead to inaccurate results in coagulation testing. Patientshaving hematocrit values >55% require a special collection tube for coagulation studies. Please contact the laboratory at [phone] for redraw instructions.COVID-19 Detected/Not DetectedOrdered By: Ren Mohan on 18-74-3012RSBZ-CoV-2 (COVID-19) RNA COLIN+non-probe Ql (Nph)Not detectedNot DetectUniversity Hospitals Elyria Medical CenterComment on above:This is a duplicate RP2.1 COVID (PCR) result to be used for statistical tracking purpose only.Cholesterol [Mass/volume] in Serum or PlasmaOrdered By: Ren Mohan on 12-09-4969Awbgtlechkk [Mass/Vol]166 mg/sL047-342HdhhtfsaeOhio State Health SystemComment on above:Chol less than 200 mg/dl low riskChol 201-239 mg/dl borderline riskChol 240 mg/dl and greater high riskCholesterol in LDL Calc [Mass/Vol]Ordered By: Ren Mohan on 16-96-3547Porwmpgfcuc in LDL [Mass/Vol] 115 mg/dLHigh0-100[facility] SystemComment on above:LDL ATP III CLASSIFICATIONLDL less than 100 mg/dL OptimalLDL 100-129 mg/dL Near or above nahdmbwSDW894-379 mg/dL Borderline highLDL 160-189 mg/dL HighLDL greater than 189 mg/dL Very highCholesterol in VLDL Calc [Mass/Vol]Ordered By: Ren Mohan on 62-04-2215Nhrxgzhzkir in VLDL [Mass/Vol]23 mg/dLOhio State Health SystemCreatine kinase [Enzymatic activity/volume] in Serum or PlasmaOrdered By: Ren Mohan on 59-65-3097ML [Catalytic activity/Vol]52 U/F61-650LioxttlpqOhio State Health SystemGlucose mean value [Mass/volume] in Blood Estimated from glycated hemoglobinOrdered By: Ren Mohan on 23-16-3100Wwdmevx glucose Estimated from glycated hemoglobin (Bld) [Mass/Vol]177 mg/dLOhio State Health SystemHemoglobin A1c percentageOrdered By: Ren Mohan on 12-25-2023 HbA1c (Bld) [Mass fraction]7.8 %High4.3-5.6FHenry County Hospital Comment on above:Increased risk for diabetes: 5.7 - 6.4diabetes: >6.4glycemic control for adults with diabetes: <7.0INR in Platelet poor plasma by Coagulation assayOrdered By: Ren Mohan on 37-16-6172KLY Coag (PPP) [Relative time]1.2 {INR}[facility] Health SystemComment on above:INR Therapeutic Range A) Pre- and Peroperative OAT started two weeks before surgery. NOT HIP SURGERY: 1.5 - 2.5 HIP SURGERY: 2 - 3B) Primary and secondary prevention of venous THROMBOSIS: 2 - 3C) Active venous thrombosis, pulmonary embolismand prevention of recurrent venous thrombosis: 2 - 3D) Prevention of arterial thromboembolismincluding patients with mechanical heart valves: 3 - 4.5 Prothrombin time (PT)Ordered By: Ren Mohan on 61-08-5364CR Coag (PPP) [Time]14.1 sHigh9.0-12.9[facility] SystemComment on above:A hematocrit value greater than 55% may lead to inaccurate results in coagulation testing. Patientshaving hematocrit values >55% require a special collection tube for coagulation studies. Please contact the laboratory at [phone] for redraw instructions.Respiratory pathogens DNA and RNA panel - Nasopharynx by COLIN with non-probe detectionOrdered By: Ren Mohan on 24-85-3373Xmkogiakild pathogens DNA and RNA panel COLIN+non-probe (Nph)[facility] Serum or plasma high density lipoprotein (HDL) cholesterol measurementOrdered By: Ren Mohan on 26-54-9645Dkayjxmblgh in HDL [Mass/Vol]27 mg/dL23-92 [facility] SystemComment on above:HDL CHOL ATP-III CLASSIFICATION Cardiovascular RiskHDL > or equal to 60 mg/dL LOWHDL < 40 mg/dL HIGHSerum or plasma total cholesterol/high density lipoprotein (HDL) cholesterol mass ratOrdered By: Ren Mohan on 78-16-8279Bhpemxhkvzg.total/Cholesterol in HDL [Mass ratio]6.1 {ratio}<5.0[facility] SystemTriglyceride [Mass/volume] in Serum or PlasmaOrdered By: Ren Mohan on 12-25-2023 Triglyceride [Mass/Vol]118 mg/dL0-149[facility] Health SystemComment on above:TRIG ATP III CLASSIFICATIONTRIG less than 150 mg/dL NormalTRIG 150-199 mg/dL Borderline highTRIG 200-500 mg/dL High TRIG greater than 500 mg/dL Very highStandard traceable to the Center for Disease Conrtrol and Prevention (CDC) test method.Office Visit (Cardiology)on 33-06-8939Nzqbod-up visit Diagnoses/Problems Assessed Afib (427.31) (I48.91) ASHD [...] Aminotransferase, Serum; Status:Active - Retrospective Authorization; Requested for:[id number]; AST; Status:Active - Retrospective Authorization; Requested for:[id number]; Basic Metabolic Panel; Status:Active - Retrospective Authorization; Requested for:[id number]; Lipid Panel; Status:Active - Retrospective Authorization; Requested for:[id number]; SocHx: Never a smoker Tobacco Use Screening; Status:Complete; Done: 55Hoz0237 Patient Instructions Please bring all medicines, vitamins, [...] try to obtain most recent labs at [facility] in last two weeks if no lipid [...] original consult note and last office note aswell She is currently asymptomatic from a cardiovascular standpoint with no angina, hospitalizations forheart failure, nitrate usage Her underlying history is [...] By: Yoan Dobbs MD (Gastroenterology) History of [place] filter placement Past Medical History Problems History [...] negative for complaint. Vitals Vital Signs Recorded: 39Kwq5915 09:09AM Heart Rate56 Btxomsrg554, LUE, Sitting Lrtjqlaqb81, LUE, Sitting Height5 ft 8 in Tobacco [...] skin turgor . Psyc (more content not included)...NormalUH TouchworksFREEMAN [facility] CARDIAC STRESS/REST INJECTIONon 98-06-1611HKS CARDIAC STRESS/REST INJECTIONMRN: [id number] Patient Name: MOHAN ESPINOZA STUDY: MYOCARDIAL PERFUSION STRESS TEST WITH LEXISCAN Performing facility: [facility], [address] [place] [address], [address], [place] [id number] [facility] Provider: Leanna Casey DO, FACC PCP: Dr. Ruben Schultz Supervising provider: Yu Barriga MD, FACC INDICATION: A-fib ASHD CHF HISTORY: Gender: F; Age: 87 y/o ; Height: 0 cm; Weight: 298.0433821 kg. CAD; Diabetes; Previous IL; Arrhythmias; Denies smoking. CABG on 2007. COMPARISON: No comparison. ACCESSION NUMBER(S): [id number]; [id number]; [id number] ORDERING CLINICIAN: JOSELUIS CASEY TECHNIQUE: TWO DAY [...] for comparison. Electronically signed by: STEPHANIE HANCOCK [facility]uck[facility] Height or Weight NOT Doneon 59-38-6153Rembo depression screening assessmentYes [facility] [address] DO Work Phone: Adult depression screening assessmentModerately Severe (15-19)[facility] [address] DO Work Phone: Fall risk assessmenta) No falls within the last year [facility] [address] DO Work Phone: Tobacco use status CPHSb) NoMLocated Within [facility] [place] [address] DO Work Phone: Height or Weight NOT Done3-Nearly every dayL[facility] Medical [facility] [facility] DO Work Phone: Height or Weight NOT Done1-Several daysL[facility] [facility] DO Work Phone: Height or Weight NOT Done0-Not at allL[facility]des Medical Center [facility] [facility] DO Work Phone: Height or Weight NOT DoneVery DifficultLourdes Medical Center [facility] [address] DO Work Phone: Office Visit (Cardiology)on 83-69-1974Dskadn-up visit Diagnoses/Problems Assessed ASHD (arteriosclerotic heart disease) [...] up in [12 ] weeks Chief Complaint [facility]. 86-year-old female returns for follow-up [...] Recorded: 01Jul2022 09:34AM Heart Rate68, L Radial Jrqldmxl478, RUE, Sitting Gohekoxpt86, RUE, Sitting Height5 ft 8 in Height or Weight NOT Done (more content not included)...NormalUH Touchworks Calcium [Mass/volume] in Serum or PlasmaOrdered By: Brissa Hoffman on 24-60-1168Fgmthlc [Mass/Vol]8.8 mg/dL8.6-10.3FHenry County Hospital Carbon dioxide, total [Moles/volume] in Serum or PlasmaOrdered By: Brissa Hoffman on 30-62-0897OR7 [Moles/Vol]32.3 mmol/L21.0-31.0[facility] SystemChloride [Moles/volume] in Serum or PlasmaOrdered By: Brissa Hoffman on 72-30-9382Ejadryki [Moles/Vol]100 mmol/V52-446IekifqomiOhio State Health SystemCreatinine [Mass/volume] in Serum or PlasmaOrdered By: Brissa Hoffman on 20-57-5693Jefjjygziy [Mass/Vol]1.66 mg/dL0.60-1.20[facility] SystemGlucose [Mass/volume] in Serum or PlasmaOrdered By: Brissa Hoffman on 20-55-7563Urjcyud [Mass/Vol]245 mg/tQ51-624DleskwexhOhio State Health SystemComment on above:ADA recommended reference rangeRandom Glucose Reference Range is dependent on time and content of last meal. Glucose of more than 200 mg/dL in a nonstressed, ambulatory subject supports the diagnosisof Diabetes Mellitus.No Panel InformationOrdered By: Brissa Hoffman on 06-29-2022 Estimated GFR (CKD-EPI)30.239 mL/MinOhio State Health SystemPharmacy Creatinine Clearance (ChemN/AFHenry County HospitalPotassium [Moles/volume] in Serum or PlasmaOrdered By: Brissa Hoffman on 06-29-2022 Potassium [Moles/Vol]4.6 mmol/L3.5-5.1FMercy Health St. Joseph Warren Hospitalerum or plasma anion gap determinationOrdered By: Brissa Hoffman on 90-92-7123Scpbn gap [Moles/Vol]9.3 mmol/L6.0-15.0Fostoria City Hospitalodium [Moles/volume] in Serum or PlasmaOrdered By: Brissa Hoffman on 92-56-8930Lxghyt [Moles/Vol]137 mmol/V643-292EscfhhqpeOhio State Health SystemUrea nitrogen [Mass/volume] in Serum or PlasmaOrdered By: Brissa Hoffman on 93-42-0185Ioqc nitrogen [Mass/Vol]31 mg/dL7-25[facility] SystemBasophils Auto (Bld) [#/Vol]Ordered By: Brissa Hoffman on 50-76-5069Jtnhziqej (Bld) [#/Vol]0.1 10*3/uL0.0-0.2FHenry County HospitalBasophils/100 WBC Auto (Bld) Ordered By: Brissa Hoffman on 72-53-5399Ugxpwchld/100 WBC (Bld)1.0 %.[facility] SystemCalcium [Mass/volume] in Serum or PlasmaOrdered By: Sharron Casey on 76-81-5036Kjkrdrg [Mass/Vol]8.7 mg/dL8.6-10.3FHenry County HospitalCarbon dioxide, total [Moles/volume] in Serum or PlasmaOrdered By: Sharron Casey on 40-70-2110FB3 [Moles/Vol]26.3 mmol/L21.0-31.0[facility] SystemChloride [Moles/volume] in Serum or PlasmaOrdered By: Sharron Casey on 48-40-0935Pnpajibs [Moles/Vol]102 mmol/H56-473KcgixdqiqOhio State Health System Creatine kinase [Enzymatic activity/volume] in Serum or PlasmaOrdered By: Sharron Casey on 51-16-6763CX [Catalytic activity/Vol]74 U/Z11-597VvnvowdccOhio State Health SystemCreatinine [Mass/volume] in Serum or PlasmaOrdered By: Sharron Casey on 21-03-9681Njbdpvjdab [Mass/Vol]1.44 mg/dL0.60-1.20[facility] SystemEosinophils Auto (Bld) [#/Vol]Ordered By: Brissa Hoffman on 06-23-2022 Eosinophils (Bld) [#/Vol]0.1 10*3/uL0.0-0.45[facility] Eosinophils/100 WBC Auto (Bld)Ordered By: Brissa Hoffman on 06-23-2022 Eosinophils/100 WBC (Bld)1.8 %.[facility] SystemErythrocyte distribution width Auto (RBC) [Ratio]Ordered By: Brissa Hoffman on 06-23-2022 Erythrocyte distribution width (RBC) [Ratio]14.7 %11.9-15.3FHenry County HospitalGlucose Glucometer (BldC) [Mass/Vol]Ordered By: Brissa Hoffman on 26-30-8826Hupzpsz [Mass/Vol]230 mg/dLOhio State Health SystemComment on above:Random Glucose Reference Range is dependent on time and content of last meal. Glucose of more than 200 mg/dL in a nonstressed, ambulatory subject supports the diagnosis of Diabetes Mellitus.Glucose [Mass/volume] in Serum or PlasmaOrdered By: Sharron Casey on 90-24-7748Fhiwslt [Mass/Vol]255 mg/kH61-797 [facility] SystemComment on above:ADA recommended reference rangeRandom Glucose Reference Range is dependent on time and content of last meal. Glucose of more than 200 mg/dL in a nonstressed, ambulatory subject supports the diagnosisof Diabetes Mellitus.Hematocrit Auto (Bld) [Volume fraction]Ordered By: Brissa Hoffman on 33-13-0718Ibueislxns (Bld) [Volume fraction]41.2 %34.0-46.4FHenry County HospitalHemoglobin [Mass/volume] in BloodOrdered By: Brissa Hoffman on 29-32-0507Lrhlobrheb (Bld) [Mass/Vol]13.6 g/dL11.8-15.4FHenry County HospitalLeukocytes [#/volume] corrected for nucleated erythrocytes in Blood by Automated coun Ordered By: Brissa Hoffman on 34-09-8105IVT corrected for nucl RBC Auto (Bld) [#/Vol]6.4 10*3/uL3.8-11.6FHenry County HospitalLymphocytes Auto (Bld) [#/Vol]Ordered By: Brissa Hoffman on 59-29-6808Mjjftuybqih (Bld) [#/Vol] 1.6 10*3/uL1.00-4.8[facility] Health SystemLymphocytes/100 WBC Auto (Bld)Ordered By: Brissa Hoffman on 87-63-0584Ykzunzqgalh/100 WBC (Bld)24.6 %. [facility] SystemMCH Auto (RBC) [Entitic mass]Ordered By: Brissa Hoffman on 34-59-1689AHR (RBC) [Entitic mass]30.9 pg24.7-34.3FHenry County HospitalMCHC Auto (RBC) [Mass/Vol]Ordered By: Brissa Hoffman on 94-82-8998RHJW (RBC) [Mass/Vol]33.0 g/dL32.0-35.0[facility] SystemMCV Auto (RBC) [Entitic vol]Ordered By: Brissa Hoffman on 07-56-7031SBL (RBC) [Entitic vol]93.5 cR20-757GkplanlamOhio State Health SystemMonocytes Auto (Bld) [#/Vol]Ordered By: Brissa Hoffman on 82-75-1429Fgoycrrfs (Bld) [#/Vol]0.8 10*3/uL0.0-0.8[facility] SystemMonocytes/100 WBC Auto (Bld) Ordered By: Brissa Hoffman on 35-26-5416Phuvhgbmi/100 WBC (Bld)12.9 %.[facility] Health SystemNeutrophils Auto (Bld) [#/Vol]Ordered By: Brissa Hoffman on 82-99-6343Sfpddmuckew (Bld) [#/Vol]3.8 10*3/uL1.8-7.7FHenry County HospitalNeutrophils/100 WBC Auto (Bld)Ordered By: Brissa Hoffman on 80-43-6243Nvomzyealxm/100 WBC (Bld)59.7 %.[facility] No Panel InformationOrdered By: Sharron Casey on 16-06-0746Fsuwoevjq GFR (CKD-EPI) 35.865 mL/MinOhio State Health SystemPharmacy Creatinine Clearance (Chem42.65[facility] SystemNucleated erythrocytes [Presence] in Blood by Automated countOrdered By: Brissa Hoffman on 04-48-3566Emrptuees RBC Auto Ql (Bld)0.0 /100{WBC}0-0.5FHenry County HospitalPlatelet mean volume Auto (Bld) [Entitic vol]Ordered By: Brissa Hoffman on 57-97-4364Gvhhzbao mean volume (Bld) [Entitic vol]10.2 fL6.3-10.7FHenry County Hospital Platelets Auto (Bld) [#/Vol]Ordered By: Brissa Hoffman on 29-07-6491Tjdotxwwl (Bld) [#/Vol]147 10*3/rO992-805LuatykrcqOhio State Health SystemPotassium [Moles/volume] in Serum or PlasmaOrdered By: Sharron Casey on 13-52-2471Haisffufo [Moles/Vol]4.2 mmol/L3.5-5.1FHenry County HospitalRBC Auto (Bld) [#/Vol]Ordered By: Brissa Hoffman on 51-85-2020TOQ (Bld) [#/Vol]4.41 10*6/uL 3.60-5.00Fostoria City Hospitalerum or plasma anion gap determinationOrdered By: Sharron Casey on 81-90-0177Evxhf gap [Moles/Vol]10.9 mmol/L 6.0-15.0Fostoria City Hospitalodium [Moles/volume] in Serum or PlasmaOrdered By: Sharron Casey on 52-31-8218Drdkuu [Moles/Vol]135 mmol/W169-338 [facility] SystemTroponin I.cardiac [Mass/volume] in Serum or Plasma by Detection limit <= 0.01 ng/Ordered By: Sharron Casey on 90-63-9405Lxflurth I.cardiac DL <= 0.01 ng/mL [Mass/Vol]65.3 pg/mL0.0-15.0[facility] SystemComment on above:Critical Result : Called to and read back by: CHELY HERNADEZ at: 06/23/2022 10:49:30 by:Gissel nitrogen [Mass/volume] in Serum or PlasmaOrdered By: Sharron Casey on 26-16-0891Utqq nitrogen [Mass/Vol]37 mg/dL7-25[facility] Health SystemWBC Auto (Bld) [#/Vol]Ordered By: Brissa Hoffman on 02-88-3606EMZ (Bld) [#/Vol]6.4 10*3/uL3.8-11.6FHenry County HospitalAlanine aminotransferase [Enzymatic activity/volume] in Serum or PlasmaOrdered By: Marcela Cano on 10-08-6666ALQ [Catalytic activity/Vol]13 U/L7-52[facility] SystemAlbumin [Mass/volume] in Serum or Plasma by Bromocresol green (BCG) dye binding methoOrdered By: Marcela Cano on 64-43-2257Yzojcbp BCG dye [Mass/Vol]3.4 g/dL3.5-5.7FHenry County HospitalAlkaline phosphatase [Enzymatic activity/volume] in Serum or PlasmaOrdered By: Marcela Cano on 11-00-9065KZA [Catalytic activity/Vol]74 U/L34-104 [facility] SystemAspartate aminotransferase [Enzymatic activity/volume] in Serum or PlasmaOrdered By: Marcela Cano on 50-74-1806SZB [Catalytic activity/Vol]16 U/J62-23FasiauolvOhio State Health System Bilirubin.total [Mass/volume] in Serum or PlasmaOrdered By: Marcela Cano on 76-08-0652Auxsogvug [Mass/Vol]0.7 mg/dL0.3-1.0[facility] Cholesterol [Mass/volume] in Serum or PlasmaOrdered By: Marcela Cano on 61-30-3663Dldwfxbvvsv [Mass/Vol]162 mg/gE632-164CvahhxdoaOhio State Health SystemComment on above:Chol less than 200 mg/dl low riskChol 201-239 mg/dl borderline riskChol 240 mg/dl and greater high riskCholesterol in LDL Calc [Mass/Vol]Ordered By: Marcela Cano on 90-55-8147Igksvhyczdy in LDL [Mass/Vol] 105 mg/dL0-100[facility] SystemComment on above:LDL ATP III CLASSIFICATIONLDL less than 100 mg/dL OptimalLDL 100-129 mg/dL Near or above mqqcpagISU321-350 mg/dL Borderline highLDL 160-189 mg/dL HighLDL greater than 189 mg/dL Very highCholesterol in VLDL Calc [Mass/Vol]Ordered By: Marcela Cano on 18-41-1585Gpekfqlbogt in VLDL [Mass/Vol]32 mg/dLOhio State Health SystemGlobulin Calc (S) [Mass/Vol]Ordered By: Marcela Cano on 17-06-3005Vakeohtv (S) [Mass/Vol]2.5 g/dLOhio State Health System Glucose mean value [Mass/volume] in Blood Estimated from glycated hemoglobin Ordered By: Marcela Cano on 87-12-2736Fhrezza glucose Estimated from glycated hemoglobin (Bld) [Mass/Vol]194 mg/dLOhio State Health SystemHemoglobin A1c percentageOrdered By: Marcela Cano on 14-21-5176BsL2n (Bld) [Mass fraction]8.4 %4.3-5.6FHenry County HospitalComment on above:Increased risk for diabetes: 5.7 - 6.4diabetes: >6.4glycemic control for adults with diabetes: <7.0Lactate [Moles/volume] in Serum or PlasmaOrdered By: Marcela Cano on 09-55-0783Jytpwxb [Moles/Vol]1.2 mmol/L0.5-2.2FHenry County HospitalNatriuretic peptide B [Mass/Vol]Ordered By: Marcela Cano on 23-52-1826Fzzwznbyium peptide B (Bld) [Mass/Vol]507.0 pg/mL5-100[facility] SystemNo Panel InformationOrdered By: Toi Johnson on 35-10-8189Uadhgrj Glucose CommentGlu2: cleaned meterOhio State Health SystemProtein [Mass/volume] in Serum or PlasmaOrdered By: Marcela Cano on 45-77-1958Ukwshyx [Mass/Vol]5.9 g/dL6.4-8.9[facility] Serum or plasma albumin/globulin mass ratioOrdered By: Marcela Cano on 33-57-9447Sahgpok/Globulin [Mass ratio]1.4 {ratio}[facility]ost[facility] Hospitalerum or plasma high density lipoprotein (HDL) cholesterol measurement Ordered By: Marcela Cano on 59-25-5664Buentnzlogn in HDL [Mass/Vol]25 mg/dL 35-85[facility] State Health SystemComment on above:HDL CHOL ATP-III CLASSIFICATION Cardiovascular RiskHDL > or equal to 60 mg/dL LOWHDL < 40 mg/dL HIGHSerum or plasma total cholesterol/high density lipoprotein (HDL) cholesterol mass ratOrdered By: Marcela Cano on 67-30-5420Jfxsoitajxf.total/Cholesterol in HDL [Mass ratio]6.5 {ratio}<5.0[facility] Health SystemTROPONIN, HIGH SENSITIVITYon 93-86-5014TTZXOM282.9 pg/mLCritically high4.0-51.3The [facility] HospitalComment on above:Result Comment: CUT-OFF POINTS HAVE BEEN ESTABLISHED BASED ON THE FOURTH UNIVERSAL DEFINITIONS OF MYOCARDIAL INFARCTION. THE UPPER REFERENCE LIMIT (URL) OF TROPONIN, DEFINED THE 99TH PERCENTILE OF cTnI DISTRIBUTION IN A REFERENCE POPULATION, HAS BEEN CONFIRMED THE DECISION THRESHOLD FOR [place] DIAGNOSIS.Performed By: #### URTPCR #### [facility] [address] [place] [address] Dr. Shilpa BeardTriglyceride [Mass/volume] in Serum or PlasmaOrdered By: Macrela Cano on 75-79-0732Zmlmqfpmylkt [Mass/Vol]160 mg/dL0-149[facility] State Health SystemComment on above:TRIG ATP III CLASSIFICATIONTRIG less than 150 mg/dL NormalTRIG 150-199 mg/dL Borderline highTRIG 200-500 mg/dL High TRIG greater than 500 mg/dL Very highStandard traceable to the Center for Disease Co nrtrol and Prevention ([facility]) test method.AMYLASEon 17-15-0232Ikuxnsy [Catalytic activity/Vol]41 U/FJyjxcs79-074Tha [facility] HospitalComment on above:Performed By: #### ALLISON PEREZ #### [facility] [address] [address] [address] Shilpa MurilloC AUTO DIFFon 84-63-1352NWJJ #0.1 103/ulNormal0.0-0.1The [facility] HospitalComment on above:Performed By: #### CBC #### [facility] [address] [place] [address] Dr. Shilpa BeardBasophils/100 WBC (Bld)0.4 %Normal0.2-2.0The [facility] Comment on above:Performed By: #### CBC #### [facility] [address] [address] [address] Shilpa James #0.0 103/ulNormal0.0-0.7The [facility] HospitalComment on above: Performed By: #### CBC #### [facility] [address] [address] [address] Shilpa Garzonosinophils/100 WBC (Bld)0.1 %Critically low0.9-7.0The [facility] HospitalComment on above:Performed By: #### CBC #### [facility] [address] [address] [address] Shilpa Garzonrythrocyte distribution width (RBC) [Ratio]13.4 %Sbledt20.0-15.0 The [facility] HospitalComment on above:Performed By: #### CBC #### [facility] [address] [place] [address] Dr. Shilpa BeardHematocrit (Bld) [Volume fraction]46.1 %Ulurkl12.0-48.0The [facility] HospitalComment on above:Performed By: #### CBC #### [facility] [address] [address] [address] Shilpa BeardHemoglobin (Bld) [Mass/Vol]15.6 g/tHEurngh93.0-16.0The [facility] HospitalComment on above:Performed By: #### CBC #### [facility] [address] [address] [address] Shilpa Alexander #0.07 10e3/ulCritically high0.00-0.03The [facility] Comment on above:Performed By: #### CBC #### [facility] [address] [address] [address] Shilpa Alexander %0.4 %Normal0.0-0.5The [facility] HospitalComment on above: Performed By: #### CBC #### [facility] [address] [address] [address] Shilpa Kothari #0.7 103/ulCritically low1.2-3.8The [facility] Comment on above:Performed By: #### CBC #### [facility] [address] [address] [address] Shilpa Garciahocytes/100 WBC (Bld)4.4 %Critically low20.5-60.0The [facility] HospitalComment on above:Performed By: #### CBC #### [facility] [address] [address] [address] Shilpa MinaUAL DIFF REQNONormalThe [facility] HospitalComment on above: Performed By: #### CBC #### [facility] [address] [address] [address] Shilpa Wolf (RBC) [Entitic mass]30.8 nsTsbuyu49.7-34.0The [facility] HospitalComment on above:Performed By: #### CBC #### [facility] [address] [address] [address] Shilpa Wolf (RBC) [Mass/Vol]33.8 g/rFSvepzn77.9-35.2The [facility] HospitalComment on above:Performed By: #### CBC #### [facility] [address] [address] [address] Shilpa Day (RBC) [Entitic vol]90.9 aBXyrbwi14.0-99.0The [facility] HospitalComment on above:Performed By: #### CBC #### [facility] [address] [place] [address] Dr. Shilpa Oswald #0.9 103/ulCritically high0.3-0.8The [facility] Comment on above:Performed By: #### CBC #### [facility] [address] [place] [address] Dr. Shilpa Chatterjeeocytes/100 WBC (Bld)5.6 %Normal1.7-12.0[facility] Comment on above:Performed By: #### CBC #### [facility] [address] [place] [address] Dr. Shilpa Pelletier #14.5 103/ulCritically high1.4-6.5ThOhioHealth Berger Hospital Comment on above:Performed By: #### CBC #### [facility] [address] [place] [address] Dr. Shilpa Gonzalesutrophils/100 WBC (Bld)89.1 %Critically high43.0-75.0The [facility] HospitalComment on above:Performed By: #### CBC #### [facility] [address] [place] [address] Dr. Shilpa Deleonlet mean volume (Bld) [Entitic vol]11.6 fLNormal9.5-13.5The [facility] HospitalComment on above:Performed By: #### CBC #### [facility] [address] [place] [address] Dr. Shilpa BeardPLT176 103/sjHvxkop116-283Pno [facility] HospitalComment on above: Performed By: #### CBC #### [facility] [address] [place] [address] Dr. Shilpa BeardRBC5.07 106/ulNormal4.20-5.40The [facility] HospitalComment on above:Performed By: #### CBC #### [facility] [address] [address] [address] Shilpa BeardWBC16.2 103/ulCritically high4.0-11.0The [facility] HospitalComment on above:Performed By: #### CBC #### [facility] [address] [address] [address] Shilpa BeardCT ABD/PELVIS WO CONon [id number] ABD/PELVIS WO CONEXAMINATION: CT ABD/PELVIS WO CON, 06/21/2022 8:29 PM [...] Electronically authenticated by: JENNIFER SWIFT Date: 2022-06-21 21:52NormalThe [facility] HospitalCULTURE URINEon 86-64-8813NWAAUMY URINECulture Observations: NO GROWTH.NormalThe [facility] HospitalComment on above:Performed By: #### LIPA, ALLISON #### [facility] [address] [address] [address] Shilpa Chicas-19 PCR (CVDTB)on 11-43-1534SUGX-CoV-2 (COVID-19) RNA COLIN+probe Ql (Unsp spec)Not detectedNormalNOT DETECTEDLicking Memorial Hospital Comment on above:Result Comment: When diagnostic testing is negative, the [...] for this test is supported by the [facility] [facility] [employer] [facility] [employer] [facility]'s declaration that circumstances exist to justify the emergency use of in vitro diagnostics for the detection and/or diagnosis of the virus that causes COVID-19. This EUA will remain in effect for the duration of the COVID-19 declaration justifying emergency of IVDs, unless it is terminated or revoked by the FDA (after which the test may no longer be used).Performed By: #### CVDTBH #### [facility] [address] [place] [address] Dr. Shilpa Vazquez URINE PROFILEon 82-89-2346Kwlsytrqg Ql (U)NegativeNormal NEGATIVELicking Memorial HospitalComment on above:Performed By: #### URTPCR #### [facility] [address] [place] [address] Dr. Shilpa Noguera (U)CLEARNormalCLEARLicking Memorial HospitalComment on above: Performed By: #### URTPCR #### [facility] [address] [place] [address] Dr. Shilpa Obregon (U)LT. YELLOWNormalYELLOWLicking Memorial HospitalComment on above:Performed By: #### URTPCR #### [facility] [address] [place] [address] Dr. Shilpa Perez micrscopic examination will be performed if indicated. NormalThe [facility] HospitalComment on above:Performed By: #### URTPCR #### [facility] [address] [address] [address] Shilpa BeardGlucose Ql (U)250 mg/dlAbnormalNEGATIVEThe [facility] on above:Performed By: #### URTPCR #### [facility] [address] [place] [address] Dr. Shilpa BeardHemoglobin Ql (U)TRACE-INTACTAbnormalNEGATIVELicking Memorial HospitalComment on above:Performed By: #### URTPCR #### [facility] [address] [place] [address] Dr. Shilpa Easonones Ql (U)NegativeNormalNEGATIVEThe [facility] HospitalComment on above:Performed By: #### URTPCR #### [facility] [address] [place] [address] Dr. Shilpa BeardLEUKOCYTESNegativeNormalNEGATIVELicking Memorial HospitalComment on above:Performed By: #### URTPCR #### [facility] [address] [place] [address] Dr. Shilpa BeardNitrite Ql (U)NegativeNormalNEGATIVELicking Memorial HospitalComment on above:Performed By: #### URTPCR #### [facility] [address] [place] [address] Dr. Shilpa BeardpH (U)5.0 [pH]Normal5-9[facility] HospitalComment on above: Performed By: #### URTPCR #### [facility] [address] [place] [address] Dr. Shilpa BeardProtein (U) [Mass/Vol]100 mg/dLAbnormalNEGATIVE/ TRACEThe [facility] HospitalComment on above:Performed By: #### URTPCR #### [facility] [address] [place] [address] Dr. Shilpa BeardSPEC GRAVITY1.545Ivqqzw9.005-<=1.025The [facility] HospitalComment on above:Performed By: #### URTPCR #### [facility] [address] [place] [address] Dr. Shilpa Xiong MICRO INDINDICATEDNormalThe UK Healthcarement on above: Performed By: #### URTPCR #### [facility] [address] [place] [address] Dr. Shilpa Hudson Qn (U)0.2 {Jacklyn'U}/dLNormal0.2 - 1.0The [facility] on above:Performed By: #### URTPCR #### [facility] [address] [place] [address] Dr. Shilpa Jainon 34-51-6800Qbxcet [Catalytic activity/Vol]80.0 U/LNormal 73.0-393.0The [facility] on above:Performed By: #### ALLISON PEREZ #### [facility] [address] [place] [address] Dr. Shilpa Ritchiease [Catalytic activity/Vol]82.0 U/HEjgczm96.0-393.0The [facility] on above:Performed By: #### URTPCR #### [facility] [address] [place] [address] Dr. Shilpa Magaña 14(COMP METB)on 85-92-9120Lfofqnq [Mass/Vol]3.3 g/dL Critically low3.4-5.0The [facility] on above:Performed By: #### URTPCR #### [facility] [address] [place] [address] Dr. Shilpa BeardAlbumin/Globulin [Mass ratio]0.8 {ratio}NormalThe [facility] on above:Performed By: #### URTPCR #### [facility] [address] [place] [address] Dr. Shilpa MonteiroP [Catalytic activity/Vol]114 U/FDxllua23-659Xxn [facility] on above:Performed By: #### URTPCR #### [facility] [address] [place] [address] Dr. Shilpa Givens [Catalytic activity/Vol]18 U/EVoyudq14-19Chz [facility] on above:Performed By: #### URTPCR #### [facility] [address] [address] [address] Shilpa BeardAnion gap [Moles/Vol]18.4 mmol/LNormalLicking Memorial Hospital Comment on above:Performed By: #### URTPCR #### [facility] [address] [address] [address] Shilpa BeardAST [Catalytic activity/Vol]22 U/HYjloho32-83Ddo [facility] HospitalComment on above:Performed By: #### URTPCR #### [facility] [address] [address] [address] Shilpa BeardBilirubin [Mass/Vol]0.6 mg/dLNormal0.2-1.0The [facility] Comment on above:Performed By: #### URTPCR #### [facility] [address] [place] [address] Dr. Shilpa BeardCalcium [Mass/Vol]8.9 mg/dLNormal8.5-10.1[facility] Comment on above:Performed By: #### URTPCR #### [facility] [address] [address] [address] Shilpa BeardChloride [Moles/Vol]100 mmol/HJxdubk27-903JqjLicking Memorial Hospital Comment on above:Performed By: #### URTPCR #### [facility] [address] [address] [address] Shilpa BeardCO2 [Moles/Vol]22.2 mmol/GJeagot61.0-32.0The [facility] Comment on above:Performed By: #### URTPCR #### [facility] [address] [address] [address] Shilpa BeardCreatinine [Mass/Vol]1.80 mg/dLCritically high0.55-1.02The [facility] HospitalComment on above:Performed By: #### URTPCR #### [facility] [address] [address] [address] Massey ChangEGFR-AF GUFIBXSM51 mL/min/1.56n0Efjwpuhmec low>=60The [facility] HospitalComment on above:Performed By: #### URTPCR #### [facility] [address] [address] [address] Shilpa GarzonGFR-NON AF VRGHUKXN16 mL/min/1.48q8Glufglxiti low>=60The [facility] HospitalComment on above:Performed By: #### URTPCR #### [facility] [address] [address] [address] Shilpa BeardGlobulin (S) [Mass/Vol]4.0 g/dLNormalThOhioHealth Berger HospitalComment on above:Performed By: #### URTPCR #### [facility] [address] [address] [address] Shilpa BeardGlucose [Mass/Vol]277 mg/dLCritically scfz22-769Luo [facility] HospitalComment on above:Performed By: #### URTPCR #### [facility] [address] [address] [address] Shilpa BeardPotassium [Moles/Vol]4.6 mmol/LNormal3.5-5.1The [facility] Comment on above:Performed By: #### URTPCR #### [facility] [address] [address] [address] Shilpa BeardProtein [Mass/Vol]7.3 g/dLNormal6.4-8.2[facility] Comment on above:Performed By: #### URTPCR #### [facility] [address] [address] [address] Shilpa BeardSodium [Moles/Vol]136 mmol/LApzewm431-642ZqpLicking Memorial Hospital Comment on above:Performed By: #### URTPCR #### [facility] [address] [address] [address] Shilpa BeardUrea nitrogen [Mass/Vol]35.0 mg/dLCritically high7.0-18.0The [facility] HospitalComment on above:Performed By: #### URTPCR #### [facility] [address] [address] [address] Shilpa BeardUrea nitrogen/Creatinine [Mass ratio]19.4 mg/mgNoUNC Health Southeasternue HospitalComment on above:Performed By: #### URTPCR #### [facility] [address] [place] [address] Dr. Shilpa Ashley, [facility] SENSITIVITYon 03-61-4303KDGTHF559.4 pg/mL Critically high4.0-51.3TMercy Health Defiance HospitalComtrinity health [facility] hospital on above:Result Comment: CUT-OFF POINTS HAVE BEEN ESTABLISHED BASED ON THE FOURTH UNIVERSAL DEFINITIONS OF MYOCARDIAL INFARCTION. THE UPPER REFERENCE LIMIT (URL) OF TROPONIN, DEFINED THE 99TH PERCENTILE OF cTnI DISTRIBUTION IN A REFERENCE POPULATION, HAS BEEN CONFIRMED THE DECISION THRESHOLD FOR [place] DIAGNOSIS.Performed By: #### HSTROPN #### [facility] [address] [place] [address] Dr. Shilpa BeardHSTROP103.3 pg/mLCritically high4.0-51.3TMercy Health Defiance Hospital Comment on above:Result Comment: CUT-OFF POINTS HAVE BEEN ESTABLISHED BASED ON THE FOURTH UNIVERSAL DEFINITIONS OF MYOCARDIAL INFARCTION. THE UPPER REFERENCE LIMIT (URL) OF TROPONIN, DEFINED THE 99TH PERCENTILE OF cTnI DISTRIBUTION IN A REFERENCE POPULATION, HAS BEEN CONFIRMED THE DECISION THRESHOLD FOR [place] DIAGNOSIS.Performed By: #### URTPCR #### [facility] [address] [place] [address] Dr. Shilpa Pérez 04-27-1555YEEVDASEC CRYSTALSFEEast Liverpool City HospitalComtr[facility] health [facility] on above:Performed By: #### URTPCR #### [facility] [address] [place] [address] Dr. Shilpa AngelALLAbnoSelect Medical Specialty Hospital - [facility] on above:Performed By: #### URTPCR #### [facility] [address] [place] [address] Dr. Shilpa Elizabeth identified Cx Nom (U)INDICATEDCleveland Clinic Akron GeneralComtrinity health [facility] on above:Performed By: #### URTPCR #### [facility] [address] [place] [address] Dr. Shilpa CohenormalLUIS CARLOS SEENLicking Memorial HospitalComtrinity health [facility] hospital on above: Performed By: #### URTPCR #### [facility] [address] [place] [address] Dr. Shilpa Suhystals LM Nom (Urine sed)SEENAbnormalNONE SEENLicking Memorial HospitalComtrinity health [facility] hospital on above:Performed By: #### URTPCR #### [facility] [address] [place] [address] Dr. Massey ChangEmiguelthelial cells LM Ql (Urine sed)FEWAbnormalNONE SEEN /RAREThe [facility] HospitalComtr[facility] health [facility] on above:Performed By: #### URTPCR #### [facility] [address] [place] [address] Dr. Shilpa DawsonALINE CASTFEWNoDayton Osteopathic HospitalComtrinity health [facility] on above: Performed By: #### URTPCR #### [facility] [address] [place] [address] Dr. Shilpa BeardMUCOUSNONE SEENNormalNONE SEENLicking Memorial HospitalComtrinity health [facility] hospital on above:Performed By: #### URTPCR #### [facility] [address] [place] [address] Dr. Shilpa BeardNzzofQDA2-3Bbxmttny7-3Uhb [facility] on above:Performed By: #### URTPCR #### [facility] [address] [place] [address] Dr. Shilpa BeardWBCNONE SEENNormalNONE SEENZanesville City Hospital on above: Performed By: #### URTPCR #### [facility] [address] [place] [address] Dr. Shilpa BeardXR CHEST 1 Von [id number] CHEST 1 VEXAM: XR CHEST 1 V HISTORY: Episodes of [...] Electronically authenticated by: LAURENCE RAJPUT Date: 2022-06-21 17:15NormalLicking Memorial HospitalGLYCOHEMOGLOBIN A1Con [id number] RECOMMENDATIONSEE BELOW NormalLicking Memorial HospitalComment on above:Result Comment: ADA RECOMMENDED LIMIT 4.0 - 6.0 ADA THERAPEUTIC TARGET < 7.0 ACTION SUGGESTED > 7.0Performed By: #### A1C #### [facility] [address] [address] [address] Shilpa BeardGlucose [Mass/Vol]174 mg/dLNormalThe [facility] HospitalComment on above:Performed By: #### A1C #### [facility] [address] [place] [address] Dr. Shilpa BeardHbA1c (Bld) [Mass fraction]7.7 %Critically high4.5-6.2The [facility] HospitalComment on above:Performed By: #### A1C #### [facility] [address] [address] [address] Shilpa BeardPROF CHEM 8 (BAS METB)on 05-35-2665Ctbuj gap [Moles/Vol]13.6 mmol/LNormalLicking Memorial HospitalComment on above:Performed By: #### BMP #### [facility] [address] [address] [address] Shilpa BeardCalcium [Mass/Vol]9.6 mg/dLNormal8.5-10.1[facility] Comment on above:Performed By: #### BMP #### [facility] [address] [address] [address] Shilpa BeardChloride [Moles/Vol]103 mmol/CRjriir57-455Wie [facility] Comment on above:Performed By: #### BMP #### [facility] [address] [place] [address] Dr. Shilpa BeardCO2 [Moles/Vol]26.1 mmol/CJueipv92.0-32.0The [facility] Comment on above:Performed By: #### BMP #### [facility] [address] [address] [address] Shilpa BeardCreatinine [Mass/Vol]1.30 mg/dLCritically high0.55-1.02The [facility] HospitalComment on above:Performed By: #### BMP #### [facility] [address] [address] [address] Massey ChangEGFR-AF RVVWMPKF19 mL/min/1.49v2Ftlijllafg low>=60The [facility] HospitalComment on above:Performed By: #### BMP #### [facility] [address] [address] [address] Shilpa GarzonGFR-NON AF FMIDBSHI17 mL/min/1.01r3Dcnvzirqpb low>=60The [facility] HospitalComment on above:Performed By: #### BMP #### [facility] [address] [address] [address] Shilpa BeardGlucose [Mass/Vol]219 mg/dLCritically xndn07-839Xoa [facility] HospitalComment on above:Performed By: #### BMP #### [facility] [address] [address] [address] Shilpa BeardPotassium [Moles/Vol]4.7 mmol/LNormal3.5-5.1The [facility] Comment on above:Performed By: #### BMP #### [facility] [address] [address] [address] Shilpa BeardSodium [Moles/Vol]138 mmol/NUosjff877-818Ggr [facility] Comment on above:Performed By: #### BMP #### [facility] [address] [address] [address] Shilpa BeardUrea nitrogen [Mass/Vol]37.0 mg/dLCritically high7.0-18.0The [facility] HospitalComment on above:Performed By: #### BMP #### [facility] [address] [address] [address] Shilpa BeardUrea nitrogen/Creatinine [Mass ratio]28.5 mg/mgNormalThe [facility] HospitalComment on above:Performed By: #### BMP #### [facility] [address] [place] [address] Dr. Shilpa BeardPROF CHEM 8 (BAS METB)on 90-43-0163Cswgj gap [Moles/Vol]15.2 mmol/LNormalThe [facility] HospitalComment on above:Performed By: #### LIPA, ALLISON #### [facility] [address] [place] [address] Dr. Shilpa BeardCalcium [Mass/Vol]8.7 mg/dLNormal8.5-10.1The [facility] Comment on above:Performed By: #### LIPA, ALLISON #### [facility] [address] [place] [address] Dr. Shilpa BeardChloride [Moles/Vol]102 mmol/LWzhxkz13-938Xxf [facility] Comment on above:Performed By: #### LIPA, ALLISON #### [facility] [address] [place] [address] Dr. Shilpa BeardCO2 [Moles/Vol]22.8 mmol/QOdhmoc96.0-32.0The [facility] Comment on above:Performed By: #### LIPA, ALLISON #### [facility] [address] [place] [address] Dr. Shilpa BeardCreatinine [Mass/Vol]1.32 mg/dLCritically high0.55-1.02The [facility] HospitalComment on above:Performed By: #### LIPA, ALLISON #### [facility] [address] [place] [address] Dr. Shilpa GarzonGFR-AF BWUMKMDZ49 mL/min/1.21k3Tbrvmwnhwf low>=60The [facility] HospitalComment on above:Performed By: #### LIPA, ALLISON #### [facility] [address] [place] [address] Dr. Shilpa GarzonGFR-NON AF WZXHIYPB70 mL/min/1.69k7Nmlhommtwi low>=60The [facility] HospitalComment on above:Performed By: #### LIPA, ALLISON #### [facility] [address] [place] [address] Dr. Shilpa BeardGlucose [Mass/Vol]168 mg/dLCritically oghp78-113Aex [facility] HospitalComment on above:Performed By: #### ANA, ALLISON #### [facility] [address] [place] [address] Dr. Shilpa BeardPotassium [Moles/Vol]5.0 mmol/LNormal3.5-5.1[facility] Comment on above:Performed By: #### ANA, ALLISON #### [facility] [address] [address] [address] Shilpa BeardSodium [Moles/Vol]135 mmol/LCritically cym981-261Tlr [facility] HospitalComment on above:Performed By: #### ANA, ALLISON #### [facility] [address] [place] [address] Dr. Shilpa BeardUrea nitrogen [Mass/Vol]38.0 mg/dLCritically high7.0-18.0The [facility] HospitalComment on above:Performed By: #### ANA, ALLISON #### [facility] [address] [place] [address] Dr. Shilpa Contreras nitrogen/Creatinine [Mass ratio]28.8 mg/mgNormalThe [facility] HospitalComment on above:Performed By: #### ANA, ALLISON #### [facility] [address] [place] [address] Dr. Shilpa Farrell AUTO DIFFon [id number] #0.1 103/ulNormal0.0-0.1The [facility] HospitalComment on above:Performed By: #### ANA, ALLISON #### [facility] [address] [place] [address] Dr. Shilpa BeardBasophils/100 WBC (Bld)1.0 %Normal0.2-2.0[facility] Comment on above:Performed By: #### ANA, ALLISON #### [facility] [address] [place] [address] Dr. Massey ChangEO #0.2 103/ulNormal0.0-0.7The [facility] HospitalComment on above: Performed By: #### LIPA, ALLISON #### [facility] [address] [place] [address] Dr. Shilpa Garzonosinophils/100 WBC (Bld)1.8 %Normal0.9-7.0The [facility] Comment on above:Performed By: #### LIPA, ALLISON #### [facility] [address] [place] [address] Dr. Shilpa Garzonrythrocyte distribution width (RBC) [Ratio]13.3 %Urksdw57.0-15.0 The [facility] HospitalComment on above:Performed By: #### LIPA, ALLISON #### [facility] [address] [place] [address] Dr. Shilpa BeardHematocrit (Bld) [Volume fraction]46.5 %Qbahfo88.0-48.0The [facility] HospitalComment on above:Performed By: #### LIPA, ALLISON #### [facility] [address] [place] [address] Dr. Shilpa BeardHemoglobin (Bld) [Mass/Vol]15.1 g/vZGalsxf62.0-16.0The [facility] HospitalComment on above:Performed By: #### LIPLuna, ALLISON #### [facility] [address] [place] [address] Dr. Shilpa Alexander #0.06 10e3/ulCritically high0.00-0.03The [facility] Comment on above:Performed By: #### LIPA, ALLISON #### [facility] [address] [place] [address] Dr. Shilpa Alexander %0.7 %Critically high0.0-0.5The [facility] HospitalComment on above:Performed By: #### LIPA, ALLISON #### [facility] [address] [place] [address] Dr. Shilpa Kothari #2.9 103/ulNormal1.2-3.8The [facility] HospitalComment on above:Performed By: #### LIPA, ALLISON #### [facility] [address] [place] [address] Dr. Shilpa Leighmphocytes/100 WBC (Bld)35.4 %Qwliyc69.5-60.0The [facility] HospitalComment on above:Performed By: #### ANA, ALLISON #### [facility] [address] [place] [address] Dr. Shilpa George DIFF REQNONormalThe [facility] HospitalComment on above: Performed By: #### ANA, ALLISON #### [facility] [address] [place] [address] Dr. [facility]il[facility]ardP[facility] (RBC) [Entitic mass]29.8 hcHvicec53.7-34.0The [facility] HospitalComment on above:Performed By: #### ANA, ALLISON #### [facility] [address] [place] [address] Dr. Shilpa Wolf (RBC) [Mass/Vol]32.5 g/yVVqlgis90.9-35.2The [facility] HospitalComment on above:Performed By: #### ANA, ALLISON #### [facility] [address] [place] [address] Dr. Shilpa Wolf (RBC) [Entitic vol]91.9 qAOqbacu18.0-99.0The [facility] HospitalComment on above:Performed By: #### ANA, ALLISON #### [facility] [address] [place] [address] Dr. Shilpa sOwald #0.8 103/ulNormal0.3-0.8The [facility] HospitalComment on above:Performed By: #### ANA, ALLISON #### [facility] [address] [place] [address] Dr. Shilpa Chatterjeeocytes/100 WBC (Bld)9.9 %Normal1.7-12.0The [facility] Comment on above:Performed By: #### ANA, ALLISON #### [facility] [address] [place] [address] Dr. Shilpa Peleltier #4.2 103/ulNormal1.4-6.5The [facility] HospitalComment on above:Performed By: #### LIPLuna, ALLISON #### [facility] [address] [place] [address] Dr. Shilpa Gonzalesutrophils/100 WBC (Bld)51.2 %Lqyqcy45.0-75.0The [facility] HospitalComment on above:Performed By: #### LIPLuna, ALLISON #### [facility] [address] [place] [address] Dr. Shilpa BeardPlatelet mean volume (Bld) [Entitic vol]11.1 fLNormal9.5-13.5The [facility] HospitalComment on above:Performed By: #### LIPLuna, ALLISON #### [facility] [address] [place] [address] Dr. Shilpa BeardPLT263 103/zxMomwyx748-334Jff [facility] on above: Performed By: #### LIPLuna, ALLISON #### [facility] [address] [place] [address] Dr. Shilpa BeardRBC5.06 106/ulNormal4.20-5.40The [facility] HospitalComtr[facility] on above:Performed By: #### ANA, ALLISON #### [facility] [address] [place] [address] Dr. Shilpa BeardWBC8.1 103/ulNormal4.0-11.0[facility] on above: Performed By: #### LIPA, ALLISON #### [facility] [address] [place] [address] Dr. Shilpa BeardGLYCOHEMOGLOBIN A1Con 21-79-8890ANU RECOMMENDATIONADA THERAPEUTIC TARGET 6.0 - 7.0 ACTION SUGGESTED > 7.0NoDayton Osteopathic HospitalComment on above:Performed By: #### URTPCR #### [facility] [address] [place] [address] Dr. Shilpa BeardGlucose [Mass/Vol]186 mg/dLNoDayton Osteopathic HospitalComtrinity health [facility] on above:Performed By: #### URTPCR #### [facility] [address] [place] [address] Dr. Shilpa BeardHbA1c (Bld) [Mass fraction]8.1 %Critically high<=6.0The [facility] on above:Performed By: #### URTPCR #### [facility] [address] [place] [address] Dr. Shilpa Joy PROFILEon 11-73-6428GGSG-HDL RATIO NORMSEE [facility] CenterCom[facility] on above:Result Comment: 3.3 - 4.4 LOW RISK 4.4 - 7.1 AVERAGE RISK 7.1 - 11.0 MODERATE RISK >11.0 HIGH RISKPerformed By: #### LIPID, URIC, TSH, CMP #### [facility] [address] [place] [address] Dr. Shilpa Lazaresterol [Mass/Vol]223 mg/dLCritically high<=200The [facility] on above:Performed By: #### LIPID, URIC, TSH, CMP #### [facility] [address] [place] [address] Dr. Shilpa Sanol in HDL [Mass/Vol]31 mg/dLCritically nag49-87JahZanesville City Hospital on above:Performed By: #### LIPID, URIC, TSH, CMP #### [facility] [address] [place] [address] Dr. Shilpa Lazaresterclaudine in LDL [Mass/Vol]143.6 mg/dLCleveland Clinic Akron GeneralComtr[facility] on above:Performed By: #### LIPID, URIC, TSH, CMP #### [facility] [address] [place] [address] Dr. Shilpa Cabral.total/Cholesterol in HDL [Mass ratio]7.2 {ratio} NormalZanesville City Hospital on above:Performed By: #### LIPID, URIC, TSH, CMP #### [facility] [address] [place] [address] Dr. Shilpa Robertson NORMAL> or = 60 mg/dl - LOW CARDIOVASCULAR RISK <40 mg/dl - HIGH CARDIOVASCULAR RISKMcKitrick Hospital on above:Performed By: #### LIPID, URIC, TSH, CMP #### [facility] [address] [place] [address] Dr. Shilpa Cordero CALC NORMALSEE BELOWCleveland Clinic Akron GeneralComment on above:Result Comment: <100 mg/dl OPTIMAL 100 - 129 mg/dl NEAR OR ABOVE OPTIMAL 130 - 159 mg/dl BORDERLINE HIGH 160 - 189 mg/dl HIGH >190 mg/dl VERY HIGH Performed By: #### LIPID, URIC, TSH, CMP #### [facility] [address] [place] [address] Dr. Shilpa BeardTriglyceride [Mass/Vol]242 mg/dLCritically high<=150The [facility] HospitalComtr[facility] on above:Performed By: #### LIPID, URIC, TSH, CMP #### [facility] [address] [place] [address] Dr. Shilpa BeardVLDL CALC48.4 mg/dLCleveland Clinic Akron GeneralComment on above: Performed By: #### LIPID, URIC, TSH, CMP #### [facility] [address] [place] [address] Dr. Shilpa BeardPROF 14(COMP METB)on 40-50-5480Rtljjjz [Mass/Vol]3.2 g/dL Critically low3.4-5.0The [facility] HospitalComtr[facility] on above:Performed By: #### URTPCR #### [facility] [address] [place] [address] Dr. Shilpa BeardAlbumin/Globulin [Mass ratio]0.7 {ratio}NormalThe [facility] HospitalComtr[facility] health [facility] on above:Performed By: #### URTPCR #### [facility] [address] [place] [address] Dr. Shilpa Horowitz [Catalytic activity/Vol]99 U/VJcxhco32-363Jto [facility] on above:Performed By: #### URTPCR #### [facility] [address] [place] [address] Dr. Shilpa Givens [Catalytic activity/Vol]42 U/IHhaoqb01-84Hmx [facility] on above:Performed By: #### URTPCR #### [facility] [address] [place] [address] Dr. Shilpa Peraltaon gap [Moles/Vol]13.1 mmol/LNormalLicking [facility] Comment on above:Performed By: #### URTPCR #### [facility] [address] [address] [address] Shilpa BeardAST [Catalytic activity/Vol]53 U/LCritically ytsn72-53Bwi [facility] HospitalComment on above:Performed By: #### URTPCR #### [facility] [address] [address] [address] Shilpa BeardBilirubin [Mass/Vol]0.5 mg/dLNormal0.2-1.3TMercy Health [facility] Comment on above:Performed By: #### URTPCR #### [facility] [address] [place] [address] Dr. Shilpa BeardCalcium [Mass/Vol]8.8 mg/dLNormal8.5-10.1[facility] Comment on above:Performed By: #### URTPCR #### [facility] [address] [place] [address] Dr. Shilpa BeardChloride [Moles/Vol]100 mmol/KXugycp29-723ZvbLicking Memorial Hospital Comment on above:Performed By: #### URTPCR #### [facility] [address] [place] [address] Dr. Shilpa BeardCO2 [Moles/Vol]26.7 mmol/WXmcrrd75.0-30.0[facility] Comment on above:Performed By: #### URTPCR #### [facility] [address] [place] [address] Dr. Shilpa BeardCreatinine [Mass/Vol]1.24 mg/dLCritically high0.52-1.04The [facility] HospitalComment on above:Performed By: #### URTPCR #### [facility] [address] [place] [address] Dr. Massey ChangEGFR-AF TUIVHHMI93 mL/min/1.23y0Zmkknpvkri low>=60The [facility] HospitalComment on above:Performed By: #### URTPCR #### [facility] [address] [address] [address] Shilpa GarzonGFR-NON AF FISREWBV29 mL/min/1.00x2Wasaufleol low>=60The [facility] HospitalComment on above:Performed By: #### URTPCR #### [facility] [address] [address] [address] Shilpa BeardGlobulin (S) [Mass/Vol]4.5 g/dLNormUniversity Hospitals Health SystemComment on above:Performed By: #### URTPCR #### [facility] [address] [address] [address] Shilpa BeardGlucose [Mass/Vol]193 mg/dLCritically zlaa94-948Ght [facility] HospitalComment on above:Performed By: #### URTPCR #### [facility] [address] [place] [address] Dr. Shilpa BeardPotassium [Moles/Vol]4.8 mmol/LNormal3.4-5.0The [facility] Comment on above:Performed By: #### URTPCR #### [facility] [address] [address] [address] Shilpa BeardProtein [Mass/Vol]7.7 g/dLNormal6.1-8.2The [facility] Comment on above:Performed By: #### URTPCR #### [facility] [address] [place] [address] Dr. Shilpa BeardSodium [Moles/Vol]135 mmol/LCritically cpr021-432Bdv [facility] HospitalComment on above:Performed By: #### URTPCR #### [facility] [address] [address] [address] Shilpa BeardUrea nitrogen [Mass/Vol]30.0 mg/dLCritically high7.0-18.0The [facility] HospitalComment on above:Performed By: #### URTPCR #### [facility] [address] [place] [address] Dr. Shilpa BeardUrea nitrogen/Creatinine [Mass ratio]24.2 mg/mgNoDayton Osteopathic HospitalComment on above:Performed By: #### URTPCR #### [facility] [address] [address] [address] Shilpa Saenz 77-38-2253JQY8.982 uIU/mLNormal0.470-4.680The [facility] on above:Performed By: #### URTPCR #### [facility] [address] [place] [address] Dr. Shilpa Rivas [facility] BELOWNoDayton Osteopathic HospitalComment on above: Result Comment: <0.34 UIU/ml HYPERTHYROID 0.34-5.60 UIU/ml EUTHYROID >5.60 UIU/ml HYPOTHYROIDPerformed By: #### URTPCR #### [facility] [address] [place] [address] Dr. Shilpa Stuart ACID SERUMon 77-50-6659Dsrzz [Mass/Vol]7.9 mg/dLCritically high2.5-6.2The [facility] HospitalComment on above:Performed By: #### LIPID, URIC, TSH, CMP #### [facility] [address] [place] [address] Dr. Shilpa Cortes T PROTEIN CREAT RATIOon 75-48-0587Yzsmhgn (U) [Mass/Vol] 50.5 mg/dLCritically high<=12.0[facility] HospitalComment on above:Performed By: #### URTPCR #### [facility] [address] [place] [address] Dr. Shilpa Xiong PROT CREAT RAT0.22NoDayton Osteopathic HospitalComment on above: Performed By: #### URTPCR #### [facility] [address] [place] [address] Dr. Shilpa Cortes XJZEB443.96 mg/pZGzfgdn89.00-300.00[facility] Comment on above:Performed By: #### URTPCR #### [facility] [address] [place] [address] Dr. Shilpa GutierresPTOUTREACHon 45-04-3017MGQKYOCDFDXONsmflmt Outreach (COOCC3) MOHAN ESPINOZA ([id number]) 1935 F Date Time Provider Department 04/15/20 [...] Fully Assessed Order(s):SARS-COVID VACCINE 1ST DOSE APPT [[id number]] Order #: [id number] FUTURE Prescriptions as of 04/15/2020 Sig: CLOPIDOGREL [...] Text Encounter Status:Closed by HAKEEM VELA on 04/18/20[facility] [id number] ID: [id number] Author: Saeid Oneil Service: ? Author Type: Physician Type: Progress Notes Filed: 09/18/2019 4:23 PM Note Text: PATIENT NAME: Mohan Espinoza CLINIC NO.: [id number] ATTENDING PHYSICIAN: Saeid Oneil MD DATE OF [...] - Gout - Heart attack (HCC) 04/06/2018 [facility] - Hematuria - History of DVT (deep [...] 09/08/2018 2.53 1.00 - 4.00 k/uL Final [place]% Date Value Ref Range Status 09/08/2018 13.5 % Final Abs [place] Date Value Ref Range Status 09/08/2018 0.78 [...] do not hesitate to contact me at [phone]. Saeid Oneil MD Hematology/Medical Oncology [facility] CC: Irlanda Ewing MDNormalCHenry County Hospital METABOLIC PANELon 10-20-5432Zvtecha [Mass/Vol]9.1 mg/dLNormal8.6-10.3The [facility] SystemComment on above:Order Comment: No: Do not add to previous draw Performed By: #### 64521, 85892, 05205, 47609, 68454, 56759 #### [facility] [address] [place] [address], USAChloride [Moles/Vol]113 mmol/OSwvj20-856Ykr [facility] SystemComment on above:Order Comment: No: Do not add to previous drawPerformed By: #### 54054, 18223, 26834, 88018, 98599, 01500 #### [facility] [address] [place] [address], USACO2 [Moles/Vol]26 mmol/JQhmzam11-15Vpg [facility] SystemComment on above:Order Comment: No: Do not add to previous draw Performed By: #### 90039, 33502, 59457, 93514, 53054, 75836 #### [facility] [address] [place] [address], USACreatinine [Mass/Vol]0.95 mg/dLNormal0.60-1.20The [facility] SystemComment on above:Order Comment: No: Do not add to previous drawPerformed By: #### 84259, 97394, 00329, 18651, 20567, 80836 #### [facility] [address] [place] [address], USAGFR/1.73 sq M predicted among blacks MDRD (S/P/Bld) [Vol rate/Area]mL/min/{1.73_m2}Normal>60The [facility] Comment on above:Order Comment: No: Do not add to previous drawResult Comment: Calculation may not be valid for patients over 70 yearsPerformed By: #### 31747, 20188, 98580, 22436, 81168, 53714 #### [facility] [address] [place] [address], USAGFR/1.73 sq M predicted among non-blacks MDRD (S/P/Bld) [Vol rate/Area]56 ml/min/1.73sq mAbnormal>60The [facility] SystemComment on above:Order Comment: No: Do not add to previous drawResult Comment: Calculation may not be valid for patients over 70 yearsPerformed By: #### 21417, 33411, 89697, 44790, 11486, 66426 #### [facility] [address] [facility] [place] [address], USAGlucose [Mass/Vol]169 mg/uSXqoo34-996Wtl [facility] SystemComment on above:Order Comment: No: Do not add to previous drawPerformed By: #### 28324, 61583, 50453, 64836, 10524, 55935 #### [facility] [address] [facility] [place] [address], USAPotassium [Moles/Vol]4.5 mmol/LNormal3.5-5.1The [facility] SystemComment on above:Order Comment: No: Do not add to previous drawPerformed By: #### 81041, 43513, 13664, 14603, 03375, 54317 #### [facility] [address] [facility] [place] [address], USASodium [Moles/Vol]147 mmol/KXpqz901-920Oqc [facility] SystemComment on above:Order Comment: No: Do not add to previous drawPerformed By: #### 84043, 80985, 54696, 34779, 64767, 73081 #### [facility] [address] [facility] [place] [address], USAUrea nitrogen [Mass/Vol]18 mg/dLNormal7-25The [facility] SystemComment on above:Order Comment: No: Do not add to previous drawPerformed By: #### 15963, 22723, 77659, 49526, 31314, 61354 #### [facility] [address] [facility] [place] [address], USACBC W/DIFFon 15-19-8340MCF BASOPHILS0.1 10*3/uLNormal 0.0-0.2The [facility] SystemComment on above:Order Comment: No: Do not add to previous drawPerformed By: #### 63718, 34213, 57093, 71960, 52113, 13770 #### [facility] [address] [address], USAABS IMM GRANS0.1 10*3/uLNormal0.0-0.2The [facility] SystemComment on above:Order Comment: No: Do not add to previous drawPerformed By: #### 43336, 72166, 81239, 83496, 22380, 71254 #### [facility] [address] [facility] [place] [address], USAABS NEUTROPHILS2.2 10*3/uLNormal1.6-7.6The [facility] SystemComment on above:Order Comment: No: Do not add to previous drawPerformed By: #### 35014, 34107, 14438, 39781, 67698, 34777 #### [facility] [address] [facility] [place] [address], USABasophils/100 WBC (Bld)1.0 %Normal0.0-1.0The [facility] SystemComment on above:Order Comment: No: Do not add to previous drawPerformed By: #### 62321, 63584, 74202, 54343, 39227, 29487 #### [facility] [address] [facility] [place] [address], USAEosinophils (Bld) [#/Vol]0.0 10*3/uLNormal0.0-0.5The [facility] SystemComment on above:Order Comment: No: Do not add to previous drawPerformed By: #### 10236, 86959, 93133, 32198, 54606, 19516 #### [facility] [address] [facility] [place] [address], USAEosinophils/100 WBC (Bld)0.0 %Normal0.0-6.0The [facility] SystemComment on above:Order Comment: No: Do not add to previous drawPerformed By: #### 90602, 09616, 13232, 32991, 83885, 01510 #### [facility] [address] [place] [address], USAErythrocyte distribution width (RBC) [Ratio]12.9 %Normal 11.5-15.0The [facility] SystemComment on above:Order Comment: No: Do not add to previous drawPerformed By: #### 34976, 01533, 47792, 01140, 76135, 69840 #### [facility] [address] [place] [address], USAHematocrit (Bld) [Volume fraction]35.3 %Low36.0-45.0The [facility] SystemComment on above:Order Comment: No: Do not add to previous drawPerformed By: #### 95224, 62137, 18687, 94848, 56262, 43191 #### [facility] [address] [facility] [place] [address], USAHemoglobin (Bld) [Mass/Vol]11.7 g/dLLow12.0-15.0The [facility] SystemComment on above:Order Comment: No: Do not add to previous drawPerformed By: #### 81434, 34297, 13564, 51512, 68269, 62042 #### [facility] [address] [address], USAIMMATURE GRANS1.0 %Normal0.0-1.0The [facility] SystemComment on above:Order Comment: No: Do not add to previous draw Performed By: #### 05203, 12962, 26926, 37038, 51498, 41562 #### [facility] [address] [address], USALymphocytes (Bld) [#/Vol]1.9 10*3/uLNormal1.2-4.0The [facility] SystemComment on above:Order Comment: No: Do not add to previous drawPerformed By: #### 05082, 42556, 72636, 52782, 82886, 84765 #### [facility] [address] [place] [address], [facility] CARE CENTERLymphocytes/100 WBC (Bld)39.0 %Widqzs74.0-45.0The [facility] SystemComment on above:Order Comment: No: Do not add to previous drawPerformed By: #### 05841, 95275, 34870, 86782, 58856, 83792 #### [facility] [address] [place] [address], [facility] (RBC) [Entitic mass]29.9 oqNvsagl23.0-33.0The [facility] SystemComment on above:Order Comment: No: Do not add to previous drawPerformed By: #### 49841, 99619, 79387, 23850, 16088, 69037 #### [facility] [address] [address], [facility] (RBC) [Mass/Vol]33.1 g/bLBdyruj44.0-35.0The [facility] SystemComment on above:Order Comment: No: Do not add to previous drawPerformed By: #### 17108, 75745, 09231, 14139, 08059, 50746 #### [facility] [address] [facility] [place] [address], [facility] (RBC) [Entitic vol]90.3 lZUgvpiq96.0-98.0The [facility] Healthcare SystemComment on above:Order Comment: No: Do not add to previous drawPerformed By: #### 14305, 00683, 38226, 09334, 80336, 23937 #### [facility] [address] [facility] [place] [address], [facility] CARE CENTERMonocytes (Bld) [#/Vol]0.7 10*3/uLNormal0.1-1.0The [facility] Healthcare SystemComment on above:Order Comment: No: Do not add to previous drawPerformed By: #### 90553, 53278, 93079, 79950, 98558, 38809 #### [facility] [address] [place] [address], THLEJUUF07.8 %High5.0-12.0The [facility] SystemComment on above:Order Comment: No: Do not add to previous drawPerformed By: #### 17870, 32581, 05729, 53836, 81246, 34225 #### [facility] [address] [place] [address], USANeutrophils/100 WBC (Bld)44.2 %Oqhxno03.0-72.0The [facility] SystemComment on above:Order Comment: No: Do not add to previous drawPerformed By: #### 01783, 14461, 33431, 32792, 43557, 28546 #### [facility] [address] [facility] [place] [address], USANucleated RBC/100 WBC (Bld) [Ratio]0 %Normal0-0The [facility] SystemComment on above:Order Comment: No: Do not add to previous drawPerformed By: #### 48906, 73254, 99876, 50453, 20446, 62309 #### [facility] [address] [facility] [place] [address], USAPLAT [id number] 10*3/bMLvvquu642-228Esa [facility] SystemComment on above:Order Comment: No: Do not add to previous draw Performed By: #### 95612, 03420, 03163, 28878, 83108, 89816 #### [facility] [address] [facility] [place] [address], USARBC (Bld) [#/Vol]3.91 10*6/uLNormal3.80-5.00The [facility] SystemComment on above:Order Comment: No: Do not add to previous drawPerformed By: #### 80870, 46051, 43894, 62539, 14178, 41881 #### [facility] [address] [place] [id number], USAWBC (Bld) [#/Vol]4.92 10*3/uLNormal4.00-10.60The [facility] SystemComment on above:Order Comment: No: Do not add to previous drawPerformed By: #### 64450, 62061, 37515, 95499, 79669, 12689 #### [facility] [address] [place] [address], USAPOC GLUCOSE LABon 32-19-2704Yymulck [Mass/Vol]245 mg/dLHigh 70-100The [facility] SystemComment on above:Performed By: #### 30706, 44548, 17853, 00172, 07848, 55624 #### [facility] [address] [place] [address], USAGlucose [Mass/Vol]220 mg/wCVlnu37-746Cur [facility] SystemComment on above:Performed By: #### 81743, 56684, 69909, 74112, 14057, 57425 #### [facility] [address] [place] [address], USAPROTHROMBIN TIMEon 20-04-6401YDE Coag (PPP) [Relative time] 1.84 {INR}High0.91-1.16The [facility] SystemComment on above: Result Comment: ACCCP RECOMMENDED INR FOR WARFARIN THERAPY ------- CONDITION INR PROPHYLAXIS OF VENOUS THROMBOSIS 2-3 (HIGH-RISK SURGERY) TREATMENT OF VENOUS THROMBOSIS 2-3 TREATMENT OF PULMONARY EMBOLISM 2-3 PREVENTION OF SYSTEMIC EMBOLISM: 2-3 ACUTE MYOCARDIAL INFARCTION TISSUE HEART VALVES VALVULAR HEART DISEASE ATRIAL FIBRILLATION RECURRENT SYSTEMIC EMBOLISM MECHANICAL HEART VALVE 2.5-3.5 FROM: ORAL ANTICOAGULANTS. MECHANISM OF ACTION, CLINICAL EFFECTIVENESS, AND OPTIMAL THERAPEUTIC RANGE. CHEST 1995;108:231S-246S.Performed By: #### 87319, 20976, 81535, 95360, 01372, 49206 #### [facility] [address] [place] [address], USAPT Coag (PPP) [Time]21.3 sHigh12.3-14.8The [facility] SystemComment on above:Result Comment: ALL RESULTS MUST BE INTERPRETED WITH RESPECT TO BLOOD DRAWING ARTIFACT OR DILUTION ERROR OF ANTICOAGULANT AT THE TIME OF SAMPLING.Performed By: #### 71267, 46757, 99116, 02127, 91922, 11733 #### [facility] [address] [place] [address], USABASIC METABOLIC PANELon 43-25-5224Khtnizw [Mass/Vol]8.5 mg/dLLow8.6-10.3The [facility] SystemComment on above:Order Comment: No: Do not add to previous drawPerformed By: #### 10585, 03429, 62215, 07603, 80123, 83905 #### [facility] [address] [place] [address], USAChloride [Moles/Vol]104 mmol/QYatztf92-841Owa [facility] SystemComment on above:Order Comment: No: Do not add to previous drawPerformed By: #### 75286, 91961, 49197, 53807, 09577, 60030 #### [facility] [address] [place] [address], USACO2 [Moles/Vol]24 mmol/ZUhryoh38-73Dwz [facility] SystemComment on above:Order Comment: No: Do not add to previous draw Performed By: #### 56130, 69818, 90189, 28840, 74706, 60745 #### [facility] [address] [place] [address], USACreatinine [Mass/Vol]0.90 mg/dLNormal0.60-1.20The [facility] SystemComment on above:Order Comment: No: Do not add to previous drawPerformed By: #### 57380, 39922, 09898, 34691, 58874, 03096 #### [facility] [address] [place] [address], USAGFR/1.73 sq M predicted among blacks MDRD (S/P/Bld) [Vol rate/Area]mL/min/{1.73_m2}Normal>60The [facility] Comment on above:Order Comment: No: Do not add to previous drawResult Comment: Calculation may not be valid for patients over 70 yearsPerformed By: #### 76162, 97295, 48190, 84674, 42615, 42954 #### [facility] [address] [facility] [address], USAGFR/1.73 sq M predicted among non-blacks MDRD (S/P/Bld) [Vol rate/Area]mL/min/{1.73_m2}Normal>60The [facility] Comment on above:Order Comment: No: Do not add to previous drawResult Comment: Calculation may not be valid for patients over 70 yearsPerformed By: #### 83551, 39950, 69618, 06402, 44341, 94869 #### [facility] [address] [facility] [place] [address], USAGlucose [Mass/Vol]173 mg/hYEhxt72-252Cwd [facility] SystemComment on above:Order Comment: No: Do not add to previous drawPerformed By: #### 03054, 05936, 09590, 74945, 27567, 92776 #### [facility] [address] [place] [address], USAPotassium [Moles/Vol]4.1 mmol/LNormal3.5-5.1The [facility] SystemComment on above:Order Comment: No: Do not add to previous drawPerformed By: #### 13064, 47061, 26093, 36063, 15699, 42237 #### [facility] [address] [place] [address], USASodium [Moles/Vol]136 mmol/VTwytyx326-045Tfi [facility] SystemComment on above:Order Comment: No: Do not add to previous drawPerformed By: #### 33183, 27609, 29485, 95156, 95020, 54722 #### [facility] [address] [place] [address], USAUrea nitrogen [Mass/Vol]21 mg/dLNormal7-25The [facility] SystemComment on above:Order Comment: No: Do not add to previous drawPerformed By: #### 23750, 08334, 25104, 79838, 44806, 16015 #### [facility] [address] [facility] [address], USACBC COMPLETE BLOOD COUNTon 16-69-9092Sbziopildfy distribution width (RBC) [Ratio]12.9 %Siqnue69.5-15.0The [facility] SystemComment on above:Order Comment: No: Do not add to previous draw Performed By: #### 47543, 80478, 78802, 98675, 28806, 15067 #### [facility] [address] [facility] [place] [address], USAHematocrit (Bld) [Volume fraction]35.1 %Low36.0-45.0The [facility] SystemComment on above:Order Comment: No: Do not add to previous drawPerformed By: #### 68572, 16699, 24486, 31528, 02920, 77695 #### [facility] [address] [place] [address], USAHemoglobin (Bld) [Mass/Vol]11.4 g/dLLow12.0-15.0The [facility] SystemComment on above:Order Comment: No: Do not add to previous drawPerformed By: #### 31059, 07948, 40468, 01962, 78196, 75771 #### [facility] [address] [facility] [place] [address], [facility] (RBC) [Entitic mass]29.8 quEmfjph51.0-33.0The [facility] SystemComment on above:Order Comment: No: Do not add to previous drawPerformed By: #### 58821, 13205, 95147, 06107, 90689, 66396 #### [facility] [address] [facility] [place] [address], [facility] (RBC) [Mass/Vol]32.5 g/fBMgjbih67.0-35.0The [facility] SystemComment on above:Order Comment: No: Do not add to previous drawPerformed By: #### 04627, 13096, 42683, 62389, 79522, 17174 #### [facility] [address] [facility] [address], [facility] (RBC) [Entitic vol]91.9 nXFlzivp76.0-98.0The [facility] SystemComment on above:Order Comment: No: Do not add to previous drawPerformed By: #### 45921, 91817, 90903, 75923, 01331, 48290 #### [facility] [address] [facility] [place] [address], USANucleated RBC/100 WBC (Bld) [Ratio]0 %Normal0-0The [facility] SystemComment on above:Order Comment: No: Do not add to previous drawPerformed By: #### 61020, 28583, 13192, 23612, 61403, 39552 #### [facility] [address] [facility] [place] [address], USAPLAT [id number] 10*3/oSTmdoiq188-198Xie [facility] SystemComment on above:Order Comment: No: Do not add to previous draw Performed By: #### 17900, 51327, 24036, 62765, 89816, 46630 #### [facility] [address] [place] [address], USARBC (Bld) [#/Vol]3.82 10*6/uLNormal3.80-5.00The [facility] SystemComment on above:Order Comment: No: Do not add to previous drawPerformed By: #### 20280, 33280, 43568, 59673, 65108, 12913 #### [facility] [address] [facility] [place] [address], USAWBC (Bld) [#/Vol]5.35 10*3/uLNormal4.00-10.60The [facility] SystemComment on above:Order Comment: No: Do not add to previous drawPerformed By: #### 94414, 41205, 05392, 70673, 33472, 86280 #### [facility] [address] [facility] [address], USACardiovascular Lab Reporton 25-10-7116Wpwqjbyaflxjxw Lab ReportUnProtestant [facility] Patient Name: Mohan Espinoza [facility] MR #: [id number] Physician: Irwin Clark of [facility] Medicine Service Date: 04/08/2018 Division of Birthdate: 1935 Cardiology Room #: 3CD [id number] Adult Cardiovascular Services [place] [address] Cardiovascular Laboratory Report CARDIAC CATHETERIZATION REPORT INDICATION: The patient is an 82-year-old woman with coronary artery disease status post bypass surgery in the past. She is admitted with a urinary tract infection and qhf-OE-dxjnfrv elevation myocardial infarction. She was referred for [...] signed informed consent. 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 The right groin area was prepped and draped in usual fashion. Using micropuncture technique, the right common femoral artery was accessed. The inner cannula was advanced and the right femoral angiography was performed followed by upsizing to a 6-Paraguayan x 11 cm sheath. Bilateral selective coronary angiography was then performed using 6-Paraguayan JL4 and JR4 diagnostic catheters. A 6-Paraguayan AR2 diagnostic catheter was used to selectively engage the saphenous venous graft to the obtuse marginal branch and right coronary artery and the radial graft to the diagonal branch. Angiography was performed. Catheter was removed. A 6-Paraguayan FRANCES diagnostic catheter was used to selectively engage the left subclavian artery and then selectively engage. The left internal mammary artery angiography was performed. Catheter was removed. Heparin was administered intravenously and therapeutic ACT confirmed during the procedure. A 6-Paraguayan JR4 guiding catheter was advanced and used to engage the right coronary ostium. A [place] wire was advanced into the distal RCA, balloon angioplasty in the distal RCA was performed using Emerge 2.5 x 15 mm balloon inflated at 12 atmospheres. The balloon was brought backwards to the mid RCA and used to perform balloon angioplasty. Additional balloon dilatation was then performed using a NC Quantum [place] 2.5 x 8 mm balloon inflated at [...] 32 mm drug-eluting stent deployed in the iopsziix-xg-voh RCA at 11 atmospheres. Following that, NC Quantum [place] 2.5 x 8 mm noncompliant balloon was advanced into the distal stent and used to perform postdilatation at 16 atmospheres followed by postdilatation using NC Quantum [place] 3.0 x 8 mm balloon inflated at 18 atmospheres in the distal stent of the mid segment followed by additional postdilatation using NC Quantum [place] 3.0 x 20 mm noncompliant balloon inflated at 18 atmospheres in the sainyhib-dn-hhe segment stent. Intracoronary nitroglycerin 100 mcg was administered followed by final angiography, which showed excellent result with reduction of the stenosis to 0%. No evidence of dissection or perforation. The guiding catheter was removed. Procedure was concluded. The right femoral arteriotomy was managed with a 6-Paraguayan Angio-Seal device with good hemostasis. She tolerated [...] throughout its course reaching 99% in the kjpwapcj-vo-mqo segment. Another lesion was 90% in the itm-ow-oztnbf segment and then this was followed by [...] graft to the PDA). 3. A 99% bdqsjaao-sg-rri, 90% mid, and 99% wlr-mm-vwdsgz stenosis in the RCA, all reduced to [...] [facility] in [facility]. Electronically Signed by: Irwin Randolph M.D. 04/17/2018 12:42 P Irwin Randolph M.D. Date Dict: 04/08/2018/05:57 P/Irwin Randolph M.D. Date Trans: 04/09/2018 06:33 Luna/alli DN_JN:[id number] cc: Romario Ewing M.D. [address] [place] [address] Robert Tompkins M.D. [address] [place], [place] [address]MAGNESIUM BLOODon 14-33-8244Dcpkusliu [Mass/Vol]1.6 mg/dLLow1.9-2.7The [facility] SystemComment on above:Order Comment: No: Do not add to previous draw Performed By: #### 81874, 06509, 01116, 48638, 08813, 22432 #### [facility] [address] [place] [address], [place]APOC GLUCOSE LABon 40-83-0999Rjhbeue [Mass/Vol]253 mg/dLHigh 70-100The [facility] SystemComment on above:Performed By: #### 64287, 90553, 99495, 71782, 08615, 12794 #### [facility] [address] [place] [address], USAGlucose [Mass/Vol]161 mg/pCCjuh97-293Rba [facility] SystemComment on above:Performed By: #### 93348, 38265, 78188, 39718, 76605, 35574 #### [facility] [address] [place] [address], USAGlucose [Mass/Vol]244 mg/uVIfum17-222Neo [facility] SystemComment on above:Performed By: #### 85407, 33001, 50312, 39440, 37078, 42810 #### [facility] [address] [place] [address], USAGlucose [Mass/Vol]175 mg/kNUpqq39-382Xdw [facility] SystemComment on above:Performed By: #### 74837, 84691, 78121, 53510, 32567, 31682 #### [facility] [address] [place] [address], USAPROTHROMBIN TIMEon 24-69-2489GSO Coag (PPP) [Relative time] 1.72 {INR}High0.91-1.16The [facility] SystemComment on above: Result Comment: ACCCP RECOMMENDED INR FOR WARFARIN THERAPY ------- CONDITION INR PROPHYLAXIS OF VENOUS THROMBOSIS 2-3 (HIGH-RISK SURGERY) TREATMENT OF VENOUS THROMBOSIS 2-3 TREATMENT OF PULMONARY EMBOLISM 2-3 PREVENTION OF SYSTEMIC EMBOLISM: 2-3 ACUTE MYOCARDIAL INFARCTION TISSUE HEART VALVES VALVULAR HEART DISEASE ATRIAL FIBRILLATION RECURRENT SYSTEMIC EMBOLISM MECHANICAL HEART VALVE 2.5-3.5 FROM: ORAL ANTICOAGULANTS. MECHANISM OF ACTION, CLINICAL EFFECTIVENESS, AND OPTIMAL THERAPEUTIC RANGE. CHEST 1995;108:231S-246S.Performed By: #### 72575, 72877, 29665, 45090, 18171, 79092 #### [facility] [address] [place] [address], USAPT Coag (PPP) [Time]20.2 sHigh12.3-14.8The [facility] SystemComment on above:Result Comment: ALL RESULTS MUST BE INTERPRETED WITH RESPECT TO BLOOD DRAWING ARTIFACT OR DILUTION ERROR OF ANTICOAGULANT AT THE TIME OF SAMPLING.Performed By: #### 45806, 39647, 50048, 07736, 04413, 00062 #### [facility] [address] [place] [address], USABASIC METABOLIC PANELon 90-39-0696Qglxwqk [Mass/Vol]9.1 mg/dLNormal8.6-10.3The [facility] SystemComment on above:Order Comment: No: Do not add to previous drawPerformed By: #### 03223, 40759, 54799, 35821, 74905, 80940 #### [facility] [address] [place] [address], USAChloride [Moles/Vol]103 mmol/EYfoojr10-367Erx [facility] SystemComment on above:Order Comment: No: Do not add to previous drawPerformed By: #### 89213, 23095, 02517, 97398, 98014, 99855 #### [facility] [address] [place] [address], USACO2 [Moles/Vol]24 mmol/KQwdxqx39-42Huw [facility] SystemComment on above:Order Comment: No: Do not add to previous draw Performed By: #### 97959, 07593, 46241, 77564, 64167, 96280 #### [facility] [address] [place] [address], USACreatinine [Mass/Vol]0.95 mg/dLNormal0.60-1.20The [facility] SystemComment on above:Order Comment: No: Do not add to previous drawPerformed By: #### 24234, 73635, 06072, 15166, 73503, 65847 #### [facility] [address] [place] [address], USAGFR/1.73 sq M predicted among blacks MDRD (S/P/Bld) [Vol rate/Area]mL/min/{1.73_m2}Normal>60The [facility] Comment on above:Order Comment: No: Do not add to previous drawResult Comment: Calculation may not be valid for patients over 70 yearsPerformed By: #### 50208, 50494, 88289, 08204, 06686, 31807 #### [facility] [address] [facility] [place] [address], USAGFR/1.73 sq M predicted among non-blacks MDRD (S/P/Bld) [Vol rate/Area]56 ml/min/1.73sq mAbnormal>60The [facility] SystemComment on above:Order Comment: No: Do not add to previous drawResult Comment: Calculation may not be valid for patients over 70 yearsPerformed By: #### 56281, 78215, 63630, 69747, 34980, 61839 #### [facility] [address] [place] [address], USAGlucose [Mass/Vol]158 mg/yRYtqo36-580Gez [facility] SystemComment on above:Order Comment: No: Do not add to previous drawPerformed By: #### 26002, 27861, 17174, 43942, 42974, 14436 #### [facility] [address] [place] [address], USAPotassium [Moles/Vol]4.3 mmol/LNormal3.5-5.1The [facility] SystemComment on above:Order Comment: No: Do not add to previous drawPerformed By: #### 87799, 37150, 31595, 14528, 56199, 44420 #### [facility] [address] [place] [address], USASodium [Moles/Vol]134 mmol/VUvj315-360Tpk [facility] SystemComment on above:Order Comment: No: Do not add to previous drawPerformed By: #### 45029, 46262, 70259, 50782, 15794, 43095 #### [facility] [address] [facility] [place] [address], USAUrea nitrogen [Mass/Vol]24 mg/dLNormal7-25The [facility] SystemComment on above:Order Comment: No: Do not add to previous drawPerformed By: #### 44843, 94733, 33948, 75046, 65439, 10538 #### [facility] [address] [facility] [address], USACBC COMPLETE BLOOD COUNTon 45-55-0694Kikrpmfzvco distribution width (RBC) [Ratio]13.0 %Jobytc17.5-15.0The [facility] SystemComment on above:Order Comment: No: Do not add to previous draw Performed By: #### 82165, 16170, 78599, 90554, 08119, 05944 #### [facility] [address] [facility] [place] [address], USAHematocrit (Bld) [Volume fraction]38.4 %Ktwmfh46.0-45.0The [facility] SystemComment on above:Order Comment: No: Do not add to previous drawPerformed By: #### 79795, 28618, 85997, 70058, 83070, 45444 #### [facility] [address] [facility] [place] [address], [facility] CARE CENTERHemoglobin (Bld) [Mass/Vol]12.7 g/mKUklsgl78.0-15.0The [facility] SystemComment on above:Order Comment: No: Do not add to previous drawPerformed By: #### 49940, 98174, 03157, 58801, 94535, 47381 #### [facility] [address] [facility] [place] [address], [facility] (RBC) [Entitic mass]30.4 imJzvqin91.0-33.0The [facility] SystemComment on above:Order Comment: No: Do not add to previous drawPerformed By: #### 26962, 27145, 77701, 51298, 67766, 35551 #### [facility] [address] [facility] [place] [address], [facility] (RBC) [Mass/Vol]33.1 g/pWVhcncj75.0-35.0The [facility] SystemComment on above:Order Comment: No: Do not add to previous drawPerformed By: #### 06439, 25091, 17446, 12098, 99309, 68758 #### [facility] [address] [facility] [place] [address], [facility] (RBC) [Entitic vol]91.9 hIVpnomw53.0-98.0The [facility] SystemComment on above:Order Comment: No: Do not add to previous drawPerformed By: #### 14444, 55807, 30892, 33650, 57291, 10512 #### [facility] [address] [facility] [place] [address], USANucleated RBC/100 WBC (Bld) [Ratio]0 %Normal0-0The [facility] SystemComment on above:Order Comment: No: Do not add to previous drawPerformed By: #### 37752, 99523, 21551, 22529, 29307, 62357 #### [facility] [address] [place] [address], USAPLAT VYJ207 10*3/yBXgmjbw243-330Gnt [facility] SystemComment on above:Order Comment: No: Do not add to previous draw Performed By: #### 53215, 82643, 62026, 96695, 09652, 11578 #### [facility] [address] [facility] [place] [address], USARBC (Bld) [#/Vol]4.18 10*6/uLNormal3.80-5.00The [facility] SystemComment on above:Order Comment: No: Do not add to previous drawPerformed By: #### 50038, 20106, 16566, 78416, 65104, 27737 #### [facility] [address] [facility] [address], [facility] CARE CENTERWBC (Bld) [#/Vol]6.62 10*3/uLNormal4.00-10.60The [facility] SystemComment on above:Order Comment: No: Do not add to previous drawPerformed By: #### 27351, 74319, 07951, 64179, 54682, 89923 #### [facility] [address] [facility] [place] [address], USAMAGNESIUM BLOODon 95-13-6097Ideomivwz [Mass/Vol]1.9 mg/dL Normal1.9-2.7The [facility] SystemComment on above:Order Comment: No: Do not add to previous drawPerformed By: #### 81230, 07913, 61207, 81585, 86957, 89268 #### [facility] [address] [facility] [address], [place]APOC GLUCOSE LABon 55-94-8919Dfoeshu [Mass/Vol]199 mg/dLHigh 70-100The [facility] SystemComment on above:Performed By: #### 17460, 51709, 41300, 97828, 92493, 87925 #### [facility] [address] [place] [address], USAGlucose [Mass/Vol]198 mg/sEWpvt00-392Xjz [facility] SystemComment on above:Performed By: #### 00157, 46709, 89866, 15547, 12489, 96490 #### [facility] [address] [place] [address], USAGlucose [Mass/Vol]155 mg/sYMzlh34-227Uvp [facility] SystemComment on above:Performed By: #### 81501, 41619, 99259, 30029, 03773, 79329 #### [facility] [address] [facility] [place] [address], USAPROTHROMBIN TIMEon [id number] Coag (PPP) [Relative time] 1.68 {INR}High0.91-1.16The [facility] SystemComment on above: Result Comment: [facility] RECOMMENDED INR FOR WARFARIN THERAPY ------- CONDITION INR PROPHYLAXIS OF VENOUS THROMBOSIS 2-3 (HIGH-RISK SURGERY) TREATMENT OF VENOUS THROMBOSIS 2-3 TREATMENT OF PULMONARY EMBOLISM 2-3 PREVENTION OF SYSTEMIC EMBOLISM: 2-3 ACUTE MYOCARDIAL INFARCTION TISSUE HEART VALVES VALVULAR HEART DISEASE ATRIAL FIBRILLATION RECURRENT SYSTEMIC EMBOLISM MECHANICAL HEART VALVE 2.5-3.5 FROM: ORAL ANTICOAGULANTS. MECHANISM OF ACTION, CLINICAL EFFECTIVENESS, AND OPTIMAL THERAPEUTIC RANGE. CHEST 1995;108:231S-246S.Performed By: #### [id number], 48816, 03671, 57564, 28197, 70780 #### [facility] [address] [facility] [place] [address], USAPT Coag (PPP) [Time]19.9 sHigh12.3-14.8The [facility] SystemComment on above:Result Comment: ALL RESULTS MUST BE INTERPRETED WITH RESPECT TO BLOOD DRAWING ARTIFACT OR DILUTION ERROR OF ANTICOAGULANT AT THE TIME OF SAMPLING.Performed By: #### 29478, 06337, 45750, 28433, 29876, 94726 #### [facility] [address] [facility] [place] [address], [facility]*RAPID FLU AANDB BY MOLECULARon 04-07-2018*RAPID FLU AANDB BY MOLECULARClinical Report: (D) Specimen: NASAL SWAB Collected: 04/06/2018 22:10 Status: Final Last Updated: 04/06/2018 23:10 FLUA RNA (Final) Negative FLUB RNA (Final) NegativeNormNationwide Children's HospitalComment on above:Performed By: #### 38820, 82459, 41340, 38303, 52489, 78528 #### [facility] [address] [facility] [place] [address], USABASIC METABOLIC PANELon 87-06-4830Srtbjah [Mass/Vol]8.3 mg/dLLow8.6-10.3The [facility] SystemComment on above:Order Comment: No: Do not add to previous drawPerformed By: #### 78903, 59097, 05842, 44463, 58002, 61897 #### [facility] [address] [facility] [place] [address], USAChloride [Moles/Vol]105 mmol/ZFgtrqk10-243Fjb [facility] SystemComment on above:Order Comment: No: Do not add to previous drawPerformed By: #### 06468, 43267, 68273, 37425, 93497, 40159 #### [facility] [address] [facility] [place] [place] [address], USACO2 [Moles/Vol]24 mmol/BErjvfi19-31Nbl [facility] SystemComment on above:Order Comment: No: Do not add to previous draw Performed By: #### 41674, 04540, 25256, 66515, 34791, 75015 #### [facility] [address] [place] [address], USACreatinine [Mass/Vol]1.24 mg/dLHigh0.60-1.20The [facility] SystemComment on above:Order Comment: No: Do not add to previous drawPerformed By: #### 35462, 88332, 22964, 18086, 44795, 54446 #### [facility] [address] [place] [address], USAGFR/1.73 sq M predicted among blacks MDRD (S/P/Bld) [Vol rate/Area]50 ml/min/1.73sq mAbnormal>60The [facility] Comment on above:Order Comment: No: Do not add to previous drawResult Comment: Calculation may not be valid for patients over 70 yearsPerformed By: #### 34799, 62661, 92991, 72290, 95306, 46215 #### [facility] [address] [place] [address], USAGFR/1.73 sq M predicted among non-blacks MDRD (S/P/Bld) [Vol rate/Area]42 ml/min/1.73sq mAbnormal>60The [facility] SystemComment on above:Order Comment: No: Do not add to previous drawResult Comment: Calculation may not be valid for patients over 70 yearsPerformed By: #### 15134, 97525, 65973, 49377, 63866, 66371 #### [facility] [address] [place] [address], USAGlucose [Mass/Vol]166 mg/lVBdtf43-717Rjv [facility] SystemComment on above:Order Comment: No: Do not add to previous drawPerformed By: #### 96856, 35814, 43038, 98296, 22440, 58993 #### [facility] [address] [place] [address], USAPotassium [Moles/Vol]4.2 mmol/LNormal3.5-5.1The [facility] SystemComment on above:Order Comment: No: Do not add to previous drawPerformed By: #### 88992, 53073, 33157, 71302, 85783, 68496 #### [facility] [address] [place] [address], USASodium [Moles/Vol]135 mmol/BCog671-880Pet [facility] SystemComment on above:Order Comment: No: Do not add to previous drawPerformed By: #### 19335, 23010, 76238, 43654, 93002, 88884 #### [facility] [address] [facility] [place] [address], USAUrea nitrogen [Mass/Vol]33 mg/dLHigh7-25The [facility] SystemComment on above:Order Comment: No: Do not add to previous drawPerformed By: #### 50021, 48017, 31744, 52591, 65654, 35954 #### [facility] [address] [facility] [place] [address], [facility] CENTERCB W/DIFFon 71-07-9591IHQ BASOPHILS0.1 10*3/uLNormal 0.0-0.2The [facility] SystemComment on above:Order Comment: No: Do not add to previous drawPerformed By: #### 22986, 87563, 92194, 03052, 93704, 31652 #### [facility] [address] [facility] [place] [address], USAABS IMM GRANS0.1 10*3/uLNormal0.0-0.2The [facility] SystemComment on above:Order Comment: No: Do not add to previous drawPerformed By: #### 11439, 09900, 49348, 34990, 62716, 77237 #### [facility] [address] [facility] [place] [address], USAABS NEUTROPHILS6.4 10*3/uLNormal1.6-7.6The [facility] SystemComment on above:Order Comment: No: Do not add to previous drawPerformed By: #### 52900, 12786, 47779, 77493, 86555, 17522 #### [facility] [address] [place] [address], USABasophils/100 WBC (Bld)0.5 %Normal0.0-1.0The [facility] SystemComment on above:Order Comment: No: Do not add to previous drawPerformed By: #### 19164, 83000, 30944, 87214, 34984, 02343 #### [facility] [address] [facility] [place] [address], USAEosinophils (Bld) [#/Vol]0.0 10*3/uLNormal0.0-0.5The [facility] SystemComment on above:Order Comment: No: Do not add to previous drawPerformed By: #### 42855, 78339, 37507, 81841, 69476, 20139 #### [facility] [address] [place] [address], USAEosinophils/100 WBC (Bld)0.0 %Normal0.0-6.0The [facility] SystemComment on above:Order Comment: No: Do not add to previous drawPerformed By: #### 05092, 04587, 08089, 46713, 71671, 26656 #### [facility] [address] [facility] [place] [address], USAErythrocyte distribution width (RBC) [Ratio]13.2 %Normal 11.5-15.0The [facility] SystemComment on above:Order Comment: No: Do not add to previous drawPerformed By: #### 27767, 91490, 82610, 56522, 68208, 50382 #### [facility] [address] [place] [address], USAHematocrit (Bld) [Volume fraction]35.0 %Low36.0-45.0The [facility] SystemComment on above:Order Comment: No: Do not add to previous drawPerformed By: #### 23858, 65609, 43814, 40951, 62000, 44050 #### [facility] [address] [place] [address], USAHemoglobin (Bld) [Mass/Vol]11.4 g/dLLow12.0-15.0The [facility] SystemComment on above:Order Comment: No: Do not add to previous drawPerformed By: #### 65652, 66300, 87753, 23067, 28199, 78834 #### [facility] [address] [place] [address], USAIMMATURE GRANS0.5 %Normal0.0-1.0The [facility] SystemComment on above:Order Comment: No: Do not add to previous draw Performed By: #### 42806, 65630, 10557, 75854, 79610, 67768 #### [facility] [address] [place] [address], USALymphocytes (Bld) [#/Vol]2.1 10*3/uLNormal1.2-4.0The [facility] SystemComment on above:Order Comment: No: Do not add to previous drawPerformed By: #### 98587, 84709, 30223, 00367, 64547, 89000 #### [facility] [address] [place] [address], USALymphocytes/100 WBC (Bld)21.7 %Ahheqe42.0-45.0The [facility] SystemComment on above:Order Comment: No: Do not add to previous drawPerformed By: #### 42564, 65912, 76068, 78473, 35322, 78923 #### [facility] [address] [place] [address], USAMCH (RBC) [Entitic mass]29.8 drUmdjlx29.0-33.0The [facility] SystemComment on above:Order Comment: No: Do not add to previous drawPerformed By: #### 29848, 53090, 37524, 04638, 66528, 72113 #### [facility] [address] [place] [address], [facility] CENTERMCHC (RBC) [Mass/Vol]32.6 g/hIHctwce47.0-35.0The [facility] SystemComment on above:Order Comment: No: Do not add to previous drawPerformed By: #### 28378, 56621, 63695, 38819, 29842, 34354 #### [facility] [address] [place] [address], [facility] ([facility] [Entitic vol]91.4 wIZvtkkh65.0-98.0The [facility] SystemComment on above:Order Comment: No: Do not add to previous drawPerformed By: #### 15644, 77324, 74171, 45141, 64379, 68125 #### [facility] [address] [place] [address], USAMonocytes (Bld) [#/Vol]1.0 10*3/uLNormal0.1-1.0The [facility] SystemComment on above:Order Comment: No: Do not add to previous drawPerformed By: #### 16590, 49451, 90519, 96606, 58077, 64068 #### [facility] [address] [place] [address], XGFVDCHZ72.6 %Normal5.0-12.0The [facility] SystemComment on above:Order Comment: No: Do not add to previous drawPerformed By: #### 44568, 60384, 83243, 90280, 26667, 01345 #### [facility] [address] [place] [address], USANeutrophils/100 WBC (Bld)66.7 %Pdcqbk09.0-72.0The [facility] SystemComment on above:Order Comment: No: Do not add to previous drawPerformed By: #### 35692, 97709, 10436, 97770, 92863, 73510 #### [facility] [address] [place] [address], USANucleated RBC/100 WBC (Bld) [Ratio]0 %Normal0-0The [facility] SystemComment on above:Order Comment: No: Do not add to previous drawPerformed By: #### 66967, 72172, 95506, 82242, 89423, 26698 #### [facility] [address] [facility] [place] [address], USAPLAT SPC368 10*3/zULlxivo170-605Bfs [facility] SystemComment on above:Order Comment: No: Do not add to previous draw Performed By: #### 75261, 08482, 30612, 01916, 72635, 93775 #### [facility] [address] [place] [address], USARBC (Bld) [#/Vol]3.83 10*6/uLNormal3.80-5.00The [facility] SystemComment on above:Order Comment: No: Do not add to previous drawPerformed By: #### 11528, 46864, 12358, 74622, 15941, 70605 #### [facility] [address] [place] [address], USAWBC (Bld) [#/Vol]9.53 10*3/uLNormal4.00-10.60The [facility] SystemComment on above:Order Comment: No: Do not add to previous drawPerformed By: #### 85812, 95665, 39848, 38845, 06322, 98588 #### [facility] [address] [place] [address], USAMAGNESIUM BLOODon 02-87-4525Kpyqzdktf [Mass/Vol]1.4 mg/dL Low1.9-2.7The [facility] SystemComment on above:Order Comment: No: Do not add to previous drawPerformed By: #### 11356, 83149, 36670, 00163, 64696, 02235 #### [facility] [address] [place] [address], USAPHOSPHORUS BLOODon 44-12-6993Vcjknmltz [Mass/Vol]2.6 mg/dL Normal2.5-5.0The [facility] SystemComment on above:Order Comment: No: Do not add to previous drawPerformed By: #### 75697, 09390, 43566, 57438, 56059, 27173 #### [facility] [address] [facility] [place] [address], USAPOC GLUCOSE LABon 58-91-2267Udwsnpf [Mass/Vol]187 mg/dLHigh 70-100The [facility] SystemComment on above:Performed By: #### 15010, 27917, 49975, 19544, 60622, 84062 #### [facility] [address] [place] [address], USAGlucose [Mass/Vol]182 mg/rGBhlj26-326Tzz [facility] SystemComment on above:Performed By: #### 97636, 71583, 76140, 81534, 83358, 61513 #### [facility] [address] [place] [address], USAGlucose [Mass/Vol]156 mg/dQZrfv45-180Cfh [facility] SystemComment on above:Performed By: #### 21053, 96449, 47763, 76231, 46960, 48491 #### [facility] [address] [place] [address], USAGlucose [Mass/Vol]148 mg/iPUchm82-659Kzg [facility] SystemComment on above:Performed By: #### 50940, 31441, 96313, 29658, 75938, 38740 #### [facility] [address] [facility] [place] [address], USAPROTHROMBIN TIMEon 42-24-4498WXE Coag (PPP) [Relative time] 1.65 {INR}High0.91-1.16The [facility] SystemComment on above: Result Comment: [facility] RECOMMENDED INR FOR WARFARIN THERAPY ------- CONDITION INR PROPHYLAXIS OF VENOUS THROMBOSIS 2-3 (HIGH-RISK SURGERY) TREATMENT OF VENOUS THROMBOSIS 2-3 TREATMENT OF PULMONARY EMBOLISM 2-3 PREVENTION OF SYSTEMIC EMBOLISM: 2-3 ACUTE MYOCARDIAL INFARCTION TISSUE HEART VALVES VALVULAR HEART DISEASE ATRIAL FIBRILLATION RECURRENT SYSTEMIC EMBOLISM MECHANICAL HEART VALVE 2.5-3.5 FROM: ORAL ANTICOAGULANTS. MECHANISM OF ACTION, CLINICAL EFFECTIVENESS, AND OPTIMAL THERAPEUTIC RANGE. CHEST 1995;108:231S-246S.Performed By: #### 01715, 84328, 95830, 09241, 07680, 36795 #### [facility] [address] [facility] [place] [id number], USAPT Coag (PPP) [Time]19.6 sHigh12.3-14.8The [facility] SystemComment on above:Result Comment: ALL RESULTS MUST BE INTERPRETED WITH RESPECT TO BLOOD DRAWING ARTIFACT OR DILUTION ERROR OF ANTICOAGULANT AT THE TIME OF SAMPLING.Performed By: #### 63133, 16618, 14484, 29755, 85724, 54643 #### [facility] [address] [place] [address], USAINR Coag (PPP) [Relative time]1.68 {INR}High0.91-1.16The [facility] SystemComment on above:Result Comment: [facility] RECOMMENDED INR FOR WARFARIN THERAPY ------- CONDITION INR PROPHYLAXIS OF VENOUS THROMBOSIS 2-3 (HIGH-RISK SURGERY) TREATMENT OF VENOUS THROMBOSIS 2-3 TREATMENT OF PULMONARY EMBOLISM 2-3 PREVENTION OF SYSTEMIC EMBOLISM: 2-3 ACUTE MYOCARDIAL INFARCTION TISSUE HEART VALVES VALVULAR HEART DISEASE ATRIAL FIBRILLATION RECURRENT SYSTEMIC EMBOLISM MECHANICAL HEART VALVE 2.5-3.5 FROM: ORAL ANTICOAGULANTS. MECHANISM OF ACTION, CLINICAL EFFECTIVENESS, AND OPTIMAL THERAPEUTIC RANGE. CHEST 1995;108:231S-246S.Performed By: #### 46869, 28969, 50194, 98682, 42933, 83331 #### [facility] [address] [facility] [place] [address], USAPT Coag (PPP) [Time]19.9 sHigh12.3-14.8The [facility] SystemComment on above:Result Comment: ALL RESULTS MUST BE INTERPRETED WITH RESPECT TO BLOOD DRAWING ARTIFACT OR DILUTION ERROR OF ANTICOAGULANT AT THE TIME OF SAMPLING.Performed By: #### 35184, 58068, 95859, 31020, 06159, 93429 #### [facility] [address] [facility] [place] [address], USATROPONIN-Ion 38-81-2408Ffninvke I.cardiac [Mass/Vol]0.15 ng/mLCritically high0.00-0.04The [facility] SystemComment on above:Order Comment: No: Do not add to previous drawResult Comment: M-PREVIOUS CRITICAL RESULT REFERENCE RANGES: 0.00 - 0.04 ng/ml NORMAL 0.05 - 0.50 ng/ml INDETERMINATE > 0.50 ng/ml CONSISTENT WITH AN M.I.Performed By: #### 27317, 87030, 27458, 38316, 09515, 95263 #### [facility] [address] [place] [address], USATroponin I.cardiac [Mass/Vol]0.17 ng/mLCritically high 0.00-0.04The [facility] SystemComment on above:Result Comment: M-PREVIOUS CRITICAL RESULT REFERENCE RANGES: 0.00 - 0.04 ng/ml NORMAL 0.05 - 0.50 ng/ml INDETERMINATE > 0.50 ng/ml CONSISTENT WITH AN M.I.Performed By: #### 27342, 56667, 34762, 69847, 18570, 11196 #### [facility] [address] [place] [address], USATroponin I.cardiac [Mass/Vol]0.20 ng/mLCritically high 0.00-0.04The [facility] SystemComment on above:Order Comment: No: Do not add to previous drawResult Comment: M-PREVIOUS CRITICAL RESULT REFERENCE RANGES: 0.00 - 0.04 ng/ml NORMAL 0.05 - 0.50 ng/ml INDETERMINATE > 0.50 ng/ml CONSISTENT WITH AN M.I.Performed By: #### 93713, 64456, 56230, 29743, 81078, 80443 #### [facility] [address] [place] [address], USAURINALYSIS REFLEXon 12-44-6339Unxegdcrcy (U)SL CLOUDY AbnormalCLEARThe [facility] SystemComment on above:Order Comment: No: Do not add to previous drawPerformed By: #### 81968, 29528, 30350, 84364, 95422, 21957 #### [facility] [address] [place] [address], USABilirubin [Mass/Vol]NegativeNormalNEGATIVEThe [facility] SystemComment on above:Order Comment: No: Do not add to previous drawPerformed By: #### 29353, 19209, 49951, 12773, 59278, 73353 #### [facility] [address] [place] [address], USABLOODNegativeNormalNEGATIVEThe [facility] SystemComment on above:Order Comment: No: Do not add to previous drawPerformed By: #### 05743, 67539, 37369, 02228, 74506, 55624 #### [facility] [address] [place] [address], USAColor (U)YELLOWNormalYELLOWThe [facility] SystemComment on above:Order Comment: No: Do not add to previous drawPerformed By: #### 27724, 37559, 64417, 09473, 12958, 07210 #### [facility] [address] [place] [address], USAEPISMANYAbnormalFEW,OCC,NONE SEENThe [facility] SystemComment on above:Order Comment: No: Do not add to previous draw Performed By: #### 59266, 85927, 43287, 67522, 67998, 48883 #### [facility] [address] [place] [address], USAGlucose [Mass/Vol]NegativeNormalNEGATIVEThe [facility] SystemComment on above:Order Comment: No: Do not add to previous drawPerformed By: #### 87319, 09735, 82641, 91392, 57331, 47969 #### [facility] [address] [place] [address], USAKETONENegativeNormalNEGATIVEThe [facility] SystemComment on above:Order Comment: No: Do not add to previous draw Performed By: #### 66625, 42391, 01863, 30549, 29799, 87876 #### [facility] [address] [place] [address], USALEUK ESTERMODERATEAbnormalNEGATIVEThe [facility] SystemComment on above:Order Comment: No: Do not add to previous draw Performed By: #### 97876, 89060, 13145, 29310, 51320, 64451 #### [facility] [address] [place] [address], USANitrite Ql (U)NegativeNormalNEGATIVEThe [facility] SystemComment on above:Order Comment: No: Do not add to previous drawPerformed By: #### 86619, 85595, 82641, 67219, 05701, 01473 #### [facility] [address] [place] [address], USApH (Bld)5.1Outpdm0.0-8.0The [facility] SystemComment on above:Order Comment: No: Do not add to previous drawPerformed By: #### 90144, 30408, 63010, 87731, 60383, 26819 #### [facility] [address] [place] [address], USAProtein (U) [Mass/Vol]NegativeNormalNEGATIVEThe [facility] SystemComment on above:Order Comment: No: Do not add to previous drawPerformed By: #### 92358, 13019, 74269, 76672, 93790, 82646 #### [facility] [address] [facility] [place] [address], USARBC (U) [#/Vol]0-2AbnormalNONE SEENThe [facility] SystemComment on above:Order Comment: No: Do not add to previous draw Performed By: #### 01218, 23525, 45471, 55418, 98515, 09692 #### [facility] [address] [facility] [place] [address], USASPEC GRAV1.805Gntmuk1.015-1.020The [facility] SystemComment on above:Order Comment: No: Do not add to previous draw Performed By: #### 00303, 64378, 44389, 49966, 36246, 13733 #### [facility] [address] [place] [address], USAWBC YV30-45FnaeimnrVBZQ [facility] HospitalComment on above:Order Comment: No: Do not add to previous draw Performed By: #### 87785, 00734, 45746, 71902, 60123, 82871 #### [facility] [address] [place] [address], [place]*A-LEGIONELLA AG URon 93-76-6710FXZALI EXAMtest.NormalThe [facility] SystemComment on above:Order Comment: No: Do not add to previous drawILNoMiami Valley HospitalComment on above:Order Comment: No: Do not add to previous drawREPORT STATUSFINAL 04/07/2018NoMiami Valley HospitalComment on above:Order Comment: No: Do not add to previous draw*BLOOD CULTUREon 61-76-6875Oeqxwpuy identified Cx Nom (Bld)Clinical Report: (D) Specimen: BLOOD CULTURE Collected: 04/06/2018 19:35 Status: Final Last Updated: 04/12/2018 07:54 (1) x 2 Prior to Antibiotic Administration CULT RES (Final) No Growth Day 5[facility] HospitalComment on above: Order Comment: No: Do not add to previous drawPerformed By: #### 05895, 92855, 61545, 83690, 98643, 10492 #### [facility] [address] [place] [address], USABacteria identified Cx Nom (Bld)Clinical Report: (D) Specimen: BLOOD CULTURE Collected: 04/06/2018 19:34 Status: Final Last Updated: 04/12/2018 07:54 (1) x 2 Prior to Antibiotic Administration CULT RES (Final) No Growth Day [address] [place], [place] [address]Comment on above: Order Comment: No: Do not add to previous drawPerformed By: #### 30872, 86595, 75054, 41100, 57130, 10507 #### [facility] [address] [place] [address], USABASIC METABOLIC PANELon 57-35-9747Ihpdddf [Mass/Vol]8.5 mg/dLLow8.6-10.3The [facility] SystemComment on above:Order Comment: No: Do not add to previous drawPerformed By: #### 34496, 47009, 48778, 95659, 99079, 94970 #### [facility] [address] [place] [address], USAChloride [Moles/Vol]104 mmol/LWiyyit60-779Bgr [facility] SystemComment on above:Order Comment: No: Do not add to previous drawPerformed By: #### 43323, 97040, 86856, 71193, 76137, 63355 #### [facility] [address] [place] [address], USACO2 [Moles/Vol]22 mmol/UFsphop82-04Abl [facility] SystemComment on above:Order Comment: No: Do not add to previous draw Performed By: #### 66976, 04954, 43236, 84024, 54650, 58533 #### [facility] [address] [place] [address], USACreatinine [Mass/Vol]1.41 mg/dLHigh0.60-1.20The [facility] SystemComment on above:Order Comment: No: Do not add to previous drawPerformed By: #### 77564, 34614, 82440, 33455, 86305, 35137 #### [facility] [address] [place] [address], USAGFR/1.73 sq M predicted among blacks MDRD (S/P/Bld) [Vol rate/Area]44 ml/min/1.73sq mAbnormal>60The [facility] Comment on above:Order Comment: No: Do not add to previous drawResult Comment: Calculation may not be valid for patients over 70 yearsPerformed By: #### 81456, 65710, 47221, 83775, 50113, 41268 #### [facility] [address] [place] [address], USAGFR/1.73 sq M predicted among non-blacks MDRD (S/P/Bld) [Vol rate/Area]36 ml/min/1.73sq mAbnormal>60The [facility] SystemComment on above:Order Comment: No: Do not add to previous drawResult Comment: Calculation may not be valid for patients over 70 yearsPerformed By: #### 51381, 31686, 35027, 50649, 38094, 70248 #### [facility] [address] [place] [address], USAGlucose [Mass/Vol]198 mg/nCCvdn63-977Qys [facility] SystemComment on above:Order Comment: No: Do not add to previous drawPerformed By: #### 42450, 16468, 28921, 71596, 20170, 45438 #### [facility] [address] [place] [address], USAPotassium [Moles/Vol]4.7 mmol/LNormal3.5-5.1The [facility] SystemComment on above:Order Comment: No: Do not add to previous drawPerformed By: #### 41094, 70984, 55869, 13942, 75920, 87947 #### [facility] [address] [place] [address], USASodium [Moles/Vol]135 mmol/YFtn110-358Ita [facility] SystemComment on above:Order Comment: No: Do not add to previous drawPerformed By: #### 21412, 76152, 73142, 44400, 24366, 57696 #### [facility] [address] [place] [address], USAUrea nitrogen [Mass/Vol]34 mg/dLHigh7-25The [facility] SystemComment on above:Order Comment: No: Do not add to previous drawPerformed By: #### 83235, 80918, 91743, 20913, 87930, 67356 #### [facility] [address] [place] [address], [facility] CENTERCBC W/DIFFon [id number] BASOPHILS0.1 10*3/uLNormal 0.0-0.2The [facility] SystemComment on above:Performed By: #### [id number] #### [facility] [address] [facility] [place] [address], [facility] CENTERABS IMM GRANS0.1 10*3/uLNormal0.0-0.2The [facility] SystemComment on above:Performed By: #### [id number] #### [facility] [address] [facility] [place] [address], [facility] CENTERABS GRMALKVCTNX90.3 10*3/uLHigh1.6-7.6The [facility] SystemComment on above:Performed By: #### [id number] #### [facility] [address] [facility] [place] [address], [facility] CENTERBasophils/100 WBC (Bld)0.3 %Normal0.0-1.0The [facility] SystemComment on above:Performed By: #### [id number] #### [facility] [address] [facility] [place] [address], [facility] CENTEREosinophils (Bld) [#/Vol]0.0 10*3/uLNormal0.0-0.5The [facility] SystemComment on above:Performed By: #### [id number] #### [facility] [address] [facility] [place] [address], USAEosinophils/100 WBC (Bld)0.0 %Normal0.0-6.0The [facility] Healthcare SystemComment on above:Performed By: #### 88432 #### [facility] [address] [facility] [place] [address], USAErythrocyte distribution width (RBC) [Ratio]13.1 %Normal 11.5-15.0The [facility] Healthcare SystemComment on above:Performed By: #### 35550 #### [facility] [address] [facility] [place] [address], USAHematocrit (Bld) [Volume fraction]38.9 %Nxphti05.0-45.0The [facility] Healthcare SystemComment on above:Performed By: #### 71084 #### [facility] [address] [facility] [place] [address], USAHemoglobin (Bld) [Mass/Vol]12.7 g/xDEgullk64.0-15.0The [facility] Healthcare SystemComment on above:Performed By: #### 40543 #### [facility] [address] [facility] [place] [address], USAIMMATURE GRANS0.3 %Normal0.0-1.0The [facility] Healthcare SystemComment on above:Performed By: #### 89462 #### [facility] [address] [facility] [place] [address], USALymphocytes (Bld) [#/Vol]1.8 10*3/uLNormal1.2-4.0The [facility] Healthcare SystemComment on above:Performed By: #### 00490 #### [facility] [address] [facility] [place] [address], USALymphocytes/100 WBC (Bld)12.2 %Low20.0-45.0The [facility] Healthcare SystemComment on above:Performed By: #### 71343 #### [facility] [address] [facility] [place] [address], USAMCH (RBC) [Entitic mass]30.5 tmZkftjq14.0-33.0The [facility] Healthcare SystemComment on above:Performed By: #### 10342 #### [facility] [address] [facility] [place] [address], USAMCHC (RBC) [Mass/Vol]32.6 g/aPSofbgf04.0-35.0The [facility] Healthcare SystemComment on above:Performed By: #### 81313 #### [facility] [address] [place] [address], [facility] CENTERMCV (RBC) [Entitic vol]93.3 fMLgsnqa67.0-98.0The [facility] Healthcare SystemComment on above:Performed By: #### 41080 #### [facility] [address] [facility]MENT[facility]htyn. [place] [id number], USAMonocytes (Bld) [#/Vol]1.2 10*3/uLHigh0.1-1.0The [facility] Healthcare SystemComment on above:Performed By: #### 12158 #### [facility] [address] [place] [address], [facility] CARE CENTERMONOS8.4 %Normal5.0-12.0The [facility] Healthcare SystemComment on above:Performed By: #### 81919 #### [facility] [address] [facility] [place] [address], USANeutrophils/100 WBC (Bld)78.8 %High40.0-72.0The [facility] Healthcare SystemComment on above:Performed By: #### 63218 #### [facility] [address] [facility] [address], USANucleated RBC/100 WBC (Bld) [Ratio]0 %Normal0-0The [facility] Healthcare SystemComment on above:Performed By: #### 92405 #### [facility] [address] [facility] [address], USAPLAT ALY731 10*3/wQJwvjpc148-874Pps [facility] Healthcare SystemComment on above:Performed By: #### 79852 #### [facility] [address] [facility] [address], USARBC (Bld) [#/Vol]4.17 10*6/uLNormal3.80-5.00The [facility] Healthcare SystemComment on above:Performed By: #### 33089 #### [address] [place] [address], USAWBC (Bld) [#/Vol]14.33 10*3/uLHigh4.00-10.60The [facility] Healthcare SystemComment on above:Performed By: #### 03657 #### [facility] [address] [facility] [place] [address], USACHEST AND LATERALon 27-95-2828XZHQJ AND LATERALUnOhio State University [facility] Department of Radiology [address] [place] [id number] Patient Name: MOHAN ESPINOZA : 1935 Sex: F Age: Race: White Pt. Location: [id number] Patient Status: I Ordered Date: 04/06/2018 6:20:00 [...] findings. Electronically signed by:Ronna Villalobos. Transcribed by: [email or web address], User Resident: MURTAZA VILLAGRAN Electronically Signed by: RONNA VILLALOBOS @ 04/07/2018 09:13 AM I personally read this/these film(s) with this residentCleveland Clinic Euclid HospitalComment on above:Order Comment: No: Do not add to previous drawDIGOXINon 79-49-9402Mgafbag [Mass/Vol]0.7 ng/mLNormal0.7-2.0The [facility] Healthcare SystemComment on above:Performed By: #### 69699, 59930, 27343, 81482, 71537, 15984 #### [facility] [address] [place] [address], USALIVER BATTERYon 17-19-8899Pxhwess [Mass/Vol]3.4 g/dLLow 3.5-5.7The [facility] Healthcare SystemComment on above:Order Comment: No: Do not add to previous drawPerformed By: #### 92633, 54510, 46977, 35847, 07555, 92019 #### [facility] [address] [place] [address], USAALKALINE QMUEAL44 IU/ISbfibn34-029Ejs [facility] Healthcare SystemComment on above:Order Comment: No: Do not add to previous draw Performed By: #### 17957, 95216, 44603, 09353, 25436, 29278 #### [facility] [address] [place] [address], USAALT [Catalytic activity/Vol]16 U/LNormal7-52The [facility] SystemComment on above:Order Comment: No: Do not add to previous drawPerformed By: #### 29739, 77266, 22582, 17241, 23787, 92729 #### [facility] [address] [facility] [address], USAAST [Catalytic activity/Vol]17 U/PRrfhhf99-36Rex [facility] Healthcare SystemComment on above:Order Comment: No: Do not add to previous drawPerformed By: #### 11498, 39926, 58670, 29622, 17065, 10084 #### [facility] [address] [facility] [place] [address], USABilirubin [Mass/Vol]0.5 mg/dLNormal0.3-1.0The [facility] SystemComment on above:Order Comment: No: Do not add to previous drawPerformed By: #### 37211, 09960, 48228, 85710, 26779, 07504 #### [facility] [address] [facility] [place] [address], USABilirubin.direct [Mass/Vol]0.1 mg/dLNormal0.0-0.2The [facility] SystemComment on above:Order Comment: No: Do not add to previous drawPerformed By: #### 44694, 21303, 52933, 68367, 70644, 98735 #### [facility] [address] [facility] [place] [address], USAProtein [Mass/Vol]6.2 g/dLNormal6.0-8.3The [facility] SystemComment on above:Order Comment: No: Do not add to previous drawPerformed By: #### 49806, 36704, 61792, 85246, 92789, 53697 #### [facility] [address] [facility] [place] [address], USAMAGNESIUM BLOODon 65-22-5680Svxrxpgnn [Mass/Vol]1.3 mg/dL Low1.9-2.7The [facility] Healthcare SystemComment on above:Order Comment: No: Do not add to previous drawPerformed By: #### 69646, 17810, 39766, 56339, 75972, 18596 #### [facility] [address] [place] [address], [facility] CARE CENTERPHOSPHORUS BLOODon 75-99-2574Jyafjgqim [Mass/Vol]2.6 mg/dL Normal2.5-5.0The [facility] Healthcare SystemComment on above:Order Comment: No: Do not add to previous drawPerformed By: #### 65971, 13615, 66892, 04724, 73513, 48492 #### [facility] [address] [place] [address], [facility] CARE CENTERPOC GLUCOSE LABon 09-62-1575Mqnjulz [Mass/Vol]172 mg/dLHigh 70-100The [facility] SystemComment on above:Performed By: #### 93780 #### [facility] [address] [place] [address], [facility] CENTERPROCALCITONINon 79-12-7272TYTBNCGFITLQO9.61 ng/mLCritically high0.00-0.10The [facility] Healthcare SystemComment on above:Order Comment: Yes: Add to Previous draw if ableResult Comment: Suspected Lower Respiratory Tract Infection: 0.1-0.25ng/mL- Low likelihood [...] READ BACK BY LAURA VITAL RN AT 2034Performed By: #### 67206 #### [facility] [address] [place] [address], USASEPSIS LACTATE W/REFLEXon 90-46-9363Fszjgwd [Moles/Vol]1.4 mmol/LNormal0.5-2.2The [facility] SystemComment on above:Order Comment: No: Do not add to previous drawPerformed By: #### 76986 #### [facility] [address] [facility] [place] [address], USATROPONIN-Ion 95-09-6309Vlgqeljt I.cardiac [Mass/Vol]0.23 ng/mLCritically high0.00-0.04The [facility] Healthcare SystemComment on above:Order Comment: No: Do not add to previous draw 175- PATIENT DOES NOT HAVE I.D. BAND YET -TECH BM 1824- NO I.D. BAND YET -TECH GCResult Comment: M-CRITICAL RESULT(S) REVIEWED, CALLED TO AND READ BACK BY LAURA VITAL RN AT 2108 REFERENCE RANGES: 0.00 - 0.04 ng/ml NORMAL 0.05 - 0.50 ng/ml INDETERMINATE > 0.50 ng/ml CONSISTENT WITH AN M.I.Performed By: #### 10322, 56554, 84795, 70236, 56610, 77859 #### [facility] [address] [facility] [place] [address], USACRPon 64-85-5254OOL mass conc4.0 mg/dLHigh<=1.9[facility] City HospitalComment on above:Performed By: #### 0007016 ####[facility] [address] [place] [address] Vital Signs Date TimeVital SignValuePerforming CykmsvvloUmnanotk95-31-3217 09:13-0400Body ypfmcdqyxqm05.1 [degF]Ирина Aichholz PAPER COATING MACHINE OPERATOR-C Work Phone: [phone]10-13-2025 09:13-0400 Body .29 kgLisa Aichholz PAPER COATING MACHINE OPERATOR-C Work Phone: [phone])[address]10-13-2025 09:13-0400 Diastolic blood mm[Hg]Ирина Aichholz PAPER COATING MACHINE OPERATOR-C Work Phone: [phone])[address]10-13-2025 09:13-0400 Heart rate76 /minLisa Aichholz PAPER COATING MACHINE OPERATOR-C Work Phone: [phone])[address]10-13-2025 09:13-0400 Respiratory rate20 /minLisa Aichholz PAPER COATING MACHINE OPERATOR-C Work Phone: [phone] [place], [place] 2489210-13-2025 09:13-0400 SaO2% (BldA) [Mass fraction]93 %Ирина Aichholz PAPER COATING MACHINE OPERATOR-C Work Phone: 1(100)[address]10-13-2025 09:13-0400 Systolic blood nzntfuzq020 mm[Hg]Ирина Aichholz PAPER COATING MACHINE OPERATOR-C Work Phone: [phone] [place], [place] 2489208-12-2025 09:22-0400 Body txikjlclhon97.81 [degF]Ирина Aichholz PAPER COATING MACHINE OPERATOR Work Phone: [facility] CenterAiyppddrpe21-06-3881 09:22-0400Diastolic blood lxfvmnaw80 mm[Hg]Ирина Aichholz PAPER COATING MACHINE OPERATOR Work Phone: [facility] CenterMkofqxcjvv94-84-7554 09:22-0400Heart rate80 /min Ирина Aichholz PAPER COATING MACHINE OPERATOR Work Phone: [facility] CenterWjfirpkrgs33-30-0579 09:22-0400Respiratory rate24 /minLisa Aichholz PAPER COATING MACHINE OPERATOR Work Phone: [facility] CenterKlaiyluvbf16-81-2880 09:22-2338SkF5% (BldA) [Mass fraction]93 %Ирина Kevin PAPER COATING MACHINE OPERATOR Work Phone: [facility] CenterQzfcpchwpi56-75-5730 09:22-0400Systolic blood geyfzfpt495 mm[Hg]Ирина Dorethacarmelinaevans PAPER COATING MACHINE OPERATOR Work Phone: [facility] CenterBkconrxrwv72-37-1856 09:48-0400Body cdweci987.7 cmJoseluis Casey DO Work Phone: [facility]07-30-2025 09:48-0400 Diastolic blood rqxhgzod69 mm[Hg]Joseluis Casey DO Work Phone: [facility]07-30-2025 09:48-0400 Heart rate72 /minJoseluis Casey DO Work Phone: [facility]07-30-2025 09:48-0400 Systolic blood iprkhyqd085 mm[Hg]Joseluis Casey DO Work Phone: [facility]06-10-2025 10:40-0400 Body rbdgeotpcqj73.1 [degF]Ирина Kevin PAPER COATING MACHINE OPERATOR Work Phone: [facility] CenterVaihjmpxqn39-53-6642 10:40-0400Diastolic blood xhbkgeyo66 mm[Hg]Ирина Kevin PAPER COATING MACHINE OPERATOR Work Phone: [facility] CenterIzuykfuzmp99-40-1155 10:40-0400Heart rate83 /min Ирина Kevin PAPER COATING MACHINE OPERATOR Work Phone: [facility] CenterIwqekruxjd81-62-1679 10:40-0400Respiratory rate18 /minLisa Kevin PAPER COATING MACHINE OPERATOR Work Phone: [facility] CenterBwdccbiqae86-08-0791 10:40-2989KeG2% (BldA) [Mass fraction]96 %Ирина Kevin PAPER COATING MACHINE OPERATOR Work Phone: [facility] CenterYyqascsvyq83-09-3369 10:40-0400Systolic blood mm[Hg]Ирина Brown PAPER COATING MACHINE OPERATOR Work Phone: [facility] CenterDjleqriwkb10-47-5542 10:29-0500Body huxxks695.7 Dedrick Brown PAPER COATING MACHINE OPERATOR Work Phone: [facility] CenterVkqyzslqtd16-21-9334 10:29-0500Body mass index (BMI) [Ratio]41.36 kg/m2Ирина Brown PAPER COATING MACHINE OPERATOR Work Phone: [facility] CenterLhuacnzwrw83-68-7556 10:29-0500Body temperature 97.59 [degF]Ирина Brown PAPER COATING MACHINE OPERATOR Work Phone: [facility] CenterXycjdnigot10-50-9838 10:29-0500Body mywwfq290.38 kgИрина Brown PAPER COATING MACHINE OPERATOR Work Phone: [facility] CenterCkpqwsuxpo59-00-0315 10:29-0500Diastolic blood kkrcbcem07 mm[Hg]Ирина Brown PAPER COATING MACHINE OPERATOR Work Phone: [facility] CenterQenfwcepaw88-71-4118 10:29-0500Heart rate94 /min Иринаluna Brown PAPER COATING MACHINE OPERATOR Work Phone: [facility] CenterQlukzjezlz69-56-3409 10:29-0500Respiratory rate22 /minLisa Brown PAPER COATING MACHINE OPERATOR Work Phone: [facility] CenterYrrkheufug64-48-1248 10:29-2544LnH0% (BldA) [Mass fraction]98 %Ирина Brown PAPER COATING MACHINE OPERATOR Work Phone: [facility] CenterBlgprempog06-52-9423 10:29-0500Systolic blood mm[Hg]Ирина Brown PAPER COATING MACHINE OPERATOR Work Phone: [facility] CenterQgaxdiibpp89-24-0550 08:54-0500Body ubqmpa592.7 cmEmilie Meza PAPER COATING MACHINE OPERATOR Work Phone: noF[facility]- FultonNfmpmytpsd04-53-9930 08:54-0500Body cuhmhzzkhwo28 [degF]Emilieenma Albertsk PAPER COATING MACHINE OPERATOR Work Phone: [facility] CenterPzjppaqrpe29-41-3710 08:54-0500Diastolic blood najmpybs86 mm[Hg]Emilie Meza PAPER COATING MACHINE OPERATOR Work Phone: [facility] CenterZdkhrjoviv96-44-2682 08:54-0500Heart rate76 /min Emilie Meza PAPER COATING MACHINE OPERATOR Work Phone: [facility] CenterBulncceskg02-05-6071 08:54-0500Respiratory rate18 /minBrittany Meza PAPER COATING MACHINE OPERATOR Work Phone: [facility] CenterGzzwisavih58-61-3138 08:54-3511DvK8% (BldA) [Mass fraction]94 %Emilie Meza PAPER COATING MACHINE OPERATOR Work Phone: [facility] CenterXzkswhliqy49-96-9611 08:54-0500Systolic blood ozwanrnt085 mm[Hg]Emilie Meza PAPER COATING MACHINE OPERATOR Work Phone: [facility] CenterVslpkiotam22-28-8141 11:08-0400Body bblbxdoasqg76 [degF]Emilie Meza PAPER COATING MACHINE OPERATOR Work Phone: [facility] CenterVuzjfhcimy88-07-1915 11:08-0400Diastolic blood mm[Hg]Emilie Meza PAPER COATING MACHINE OPERATOR Work Phone: [facility] CenterCqmuxhapyv14-51-2947 11:08-0400Heart rate85 /min Emilie Meza PAPER COATING MACHINE OPERATOR Work Phone: [facility] CenterWjewcaojll35-98-5585 11:08-0752ErP6% (BldA) [Mass fraction]94 %Emilie Meza PAPER COATING MACHINE OPERATOR Work Phone: [facility] CenterJefphdiqol23-71-9749 11:08-0400Systolic blood dckcnemb942 mm[Hg]Emilie Meza PAPER COATING MACHINE OPERATOR Work Phone: [facility] CenterXgavkbssfe06-76-3736 08:00-0400Body temperature 98.4 [degF]DO Ren Mohan Work Phone: [facility]10-08-2024 08:00-0400 Diastolic blood zwanoolz76 mm[Hg]DO Ren Mohan Work Phone: [phone] [place], [place] 8152110-08-2024 08:00-0400 Heart rate80 /MarvO Ren Mohan Work Phone: [phone] [place], [place] 5371910-08-2024 08:00-0400 Respiratory rate18 /minDO Ren Mohan Work Phone: 1(269)[address] [place], [place] 4155410-08-2024 08:00-0400 SaO2% (BldA) [Mass fraction]96 %DO Ren Mohan Work Phone: [phone])[address] [place], [place] 4155410-08-2024 08:00-0400 Systolic blood mm[Hg]DO Ren Mohan Work Phone: 1(260)[address] [place], [place] 4155410-08-2024 06:00-0400 Body .9 kgDO Ren Mohan Work Phone: 1(342)[address] [place], [place] 4155410-05-2024 11:58-0400 Body ydkhvj143.72 cmDO Ren Mohan Work Phone: [phone])[address] [place], [place] 4155404-12-2023 09:34-0400 Body .72 Chip Schultz Work Phone: [phone]-Nalec [facility] 250 DO Work Phone: 1(360) 297-743804-12-2023 09:34-0400Body mass index (BMI) [Ratio] Patient Reason Not DoneShaikh Marion Work Phone: [phone]-Rvtyf [facility] 250 DO Work Phone: 1(481) 372-451404-12-2023 09:34-0400Diastolic blood xwcfpycx98 mm[Hg] Shaikh Marion Work Phone: mp413-6293NE-Lwydg [facility] 250 DO Work Phone: 1(402) 383-255404-12-2023 09:34-0400Heart rate68 /Peri Zamorad Work Phone: mp027-5329PX-Pysgq [facility] 250 DO Work Phone: 1(863) 463-233704-12-2023 09:34-0400Systolic blood qemmqiqv446 mm[Hg] Good Birgitluis Work Phone: [phone]-Fzqmq [facility] 250 DO Work Phone: 1(501) 352-320404-12-2023 09:34-176220 1Syousif Zamorad Work Phone: [phone]-Csryb [facility] 250 DO Work Phone: Comment on above:PHQ-9 FD53-81-0536 11:26-0400Body rrhginvqoso74.4 [degF]MD Shaikh Schultz Work Phone: [facility]04-04-2023 11:26-0400 Diastolic blood zwoauoiu32 mm[Hg]MD Shaikh Schultz Work Phone: 1([phone] [place], [place] 0280404-04-2023 11:26-0400 Heart miur181 /minMD Birgitluis Work Phone: [facility]04-04-2023 11:26-0400 Respiratory rate18 /minMD Luaikh Birgitluis Work Phone: [facility]04-04-2023 11:26-0400 SaO2% (BldA) [Mass fraction]96 %MD Shaikh Schultz Work Phone: [facility]04-04-2023 11:26-0400 Systolic blood ylggptaz314 mm[Hg]MD Shaikh Schultz Work Phone: [phone] [place], [place] 2489204-04-2023 08:03-0400 Inhaled oxygen flow rate1 L/minMD Shaikh Schultz Work Phone: [facility]04-04-2023 06:00-0400 Body utpxld428.4 kgMD Shaikh Marion Work Phone: [facility]04-03-2023 14:39-0400 Body qnihjh443.72 cmMD Shaikh Marion Work Phone: [facility]04-03-2023 00:00-0400 45 1Syousif Zamorad Work Phone: [phone]-Boqhy [facility] 250 DO Work Phone: Comment on above:BPSDXTBG30 Encounters Encounter DateEncounter TypeCare ProviderFacilityStart: 01-01-2025 End: 56-32-4767wheokgxocbEkmc J Aichholz PAPER COATING MACHINE OPERATOR-C Work Phone: [facility] Work Phone: Start: 01-01-2025 End: 25-01-0082Ikhfmul encounter procedureLisa Georges Brown PAPER COATING MACHINE OPERATOR-C-[facility] Work Phone: Start: 61-15-8828Agsgetl encounter procedureLisa Brown PAPER COATING MACHINE OPERATOR-C Work Phone: [facility]: 11-14-2024 End: 38-47-8851Tsiwztkay Result EncounterLisa Brown PAPER COATING MACHINE OPERATOR Work Phone: noms External Department UnsolicitedStart: 11-14-2024 End: 89-99-1270Qqucwpkfd Result EncounterLisa Santanaholz PAPER COATING MACHINE OPERATOR Work Phone: [facility] External Department UnsolicitedStart: 11-09-2024 End: 45-46-7659KspvaaDaqp Aichholz PAPER COATING MACHINE OPERATOR Work Phone: noms CWM FMComment on above:Hypomagnesemia; Type 2 diabetes mellitus without complications (HCC)Start: 10-31-2024 End: 48-77-1186Dekntm flowsheetИрина Brown PAPER COATING MACHINE OPERATOR Work Phone: [facility]oms CWM FMStart: 10-31-2024 End: 69-77-4036Qutevu wilson healthsaloChinyere Kevin PAPER COATING MACHINE OPERATOR Work Phone: noms CWM FMStart: 10-31-2024 End: 36-85-3164Jsujga outpatient visit 25 minutesИрина Dorethacarmelinaevans PAPER COATING MACHINE OPERATOR Work Phone: noms CWM FMComment on above:Essential hypertension (Primary Dx); Type 2 diabetes mellitus with diabetic polyneuropathy, without long-term current use of insulin (HCC); Longstanding persistent atrial fibrillation (HCC); Pulmonary embolism, unspecified chronicity, unspecified pulmonary embolism type, unspecified whether acute cor pulmonale present (HCC); Chronic diastolic (congestive) heart failure (HCC); Chronic kidney disease, stage 3b ([facility]-HCC); Type 2 diabetes mellitus with stage 3b chronic kidney disease, without long-term current use of insulin (HCC); Morbid (severe) obesity due to excess calories ([facility]-HCC); Acquired hypothyroidism ; Diarrhea, unspecified typeStart: 10-31-2024 End: 43-82-0187ymdgmwunkiZCTD AICHHOLZNot AvailableStart: 10-18-2024 End: 17-84-6738Qepzmh outpatient visit 25 [facility] Work Phone: [facility] CenterComment on above:ASHD (arteriosclerotic heart disease); History of coronary artery bypass graft; History of non-ST elevation myocardial infarction (NSTEMI); Other pulmonary embolism without acute cor pulmonale, unspecified chronicity (Multi); Factor V Leiden (Multi); Statin intolerance; Atrial fibrillation, unspecified type (Multi); Type 2 diabetes mellitus without complication, without long-term current use of insulin; Never smoked tobacco; Congestive heart failure, unspecified HF chronicity, unspecified heart failure typeStart: 10-18-2024 End: 39-34-4311cxdcdpnnhmNOQVAQOMiller County Hospital AmbulatoryStart: 10-11-2024 End: 88-58-8502FgfrdyZeke Aichholz PAPER COATING MACHINE OPERATOR Work Phone: noms [facility] FMComment on above:Hypothyroidism, unspecified ; Type 2 diabetes mellitus with diabetic chronic kidney disease (HCC); Hyperuricemia without signs of inflammatory arthritis and tophaceous disease; Type 2 diabetes mellitus without complications (HCC)Start: 09-15-2024 End: 08-46-9546Prsmllaxv Result EncounterLisa Aichholz PAPER COATING MACHINE OPERATOR Work Phone: noms External Department UnsolicitedStart: 09-15-2024 End: 78-50-7413Qcnkwubta Result EncounterLisa Aichholz PAPER COATING MACHINE OPERATOR Work Phone: n[facility] External Department UnsolicitedStart: 09-15-2024 End: 30-38-3550LzyrvcGjov Aichholz PAPER COATING MACHINE OPERATOR Work Phone: noms CWM FMComment on above:Hypomagnesemia (Primary Dx)Start: 08-29-2024 End: 46-92-2629Ldgpob flowsheetLisa Aichholz PAPER COATING MACHINE OPERATOR Work Phone: noms CWM FMStart: 08-29-2024 End: 59-17-3709Taoldg flowsheetLisa Aichholz PAPER COATING MACHINE OPERATOR Work Phone: noms CWM FMStart: 08-29-2024 End: 44-89-6436Iokrutj encounter procedureLisa Aichholz PAPER COATING MACHINE OPERATOR Work Phone: noms CWM FMComment on above:Medicare annual wellness visit, subsequent (Primary Dx); Type 2 diabetes mellitus with stage 3b chronic kidney disease, without long-term current use of insulin (HCC) (CMS/HCC); Morbid (severe) obesity due to excess calories (CMS/HCC); Acquired hypothyroidism (CMS/HCC); Essential hypertension (CMS/HCC); Chronic diastolic (congestive) heart failure; Coronary artery disease involving crow coronary artery of crow heart without angina pectoris (CMS/HCC); Type 2 diabetes mellitus with diabetic polyneuropathy, without long-term current use of insulin (CMS/HCC); HypomagnesemiaStart: 08-29-2024 End: 37-97-6562suihltqdzfTGVP AICHHOLZNot AvailableStart: 07-10-2024 End: 38-16-2155VojmfgShrp Naderer MD Work Phone: [facility] FMComment on above:Unspecified atrial fibrillation (CMS/HCC)Start: 07-06-2024 End: 06-22-6161Vwpzqinyw Result EncounterGeneric External Data ProviderNOMS External Department UnsolicitedStart: 07-06-2024 End: 84-27-3454Xnfwuiugz Result EncounterGeneric External Data ProviderNOMS External Department UnsolicitedStart: 07-06-2024 End: 33-00-2159zjtfntgsjmRqaiepelJian Meza PAPER COATING MACHINE OPERATOR-C Work Phone: [facility] Work Phone: Start: 07-06-2024 End: 27-24-0798Rlnarxpx Jabier Meza PAPER COATING MACHINE OPERATOR-C Work Phone: [facility] Path Spec Jovanni HospStart: 05-25-2024 End: 37-88-3236Songig flowsheetИрина Brown PAPER COATING MACHINE OPERATOR Work Phone: [facility] FMStart: 05-25-2024 End: 71-50-6158Ywoxnb flowsheetLisa Dorethahholz PAPER COATING MACHINE OPERATOR Work Phone: [facility] FMStart: 05-25-2024 End: 23-75-3265Ltgkpk outpatient visit 25 minutesLisa Kevin PAPER COATING MACHINE OPERATOR Work Phone: [facility] FMComment on above: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/HCC) (Primary [...] Cardiomyopathy, ischemic (CMS/HCC); Coronary artery disease involving crow coronary artery of crow heart without angina pectoris (CMS/HCC); Essential hypertension (CMS/HCC); Acquired hypothyroidism (CMS/HCC); Factor V Leiden mutation (CMS/HCC); Statin intolerance; Hyperuricemia without signs of inflammatory arthritis and tophaceous disease Start: 05-25-2024 End: 29-21-1588pnfkxncdghBLIR [facility] CENTERZNot AvailableStart: 04-17-2024 End: 97-31-0723Elibhfpem Result EncounterBrradha WillsonMeza PAPER COATING MACHINE OPERATOR Work Phone: noms External Department UnsolicitedStart: 04-17-2024 End: 85-34-2308Lrdtsiyaa Result EncounterBrittjackie WillsonMeza PAPER COATING MACHINE OPERATOR Work Phone: noms External Department UnsolicitedStart: 04-05-2024 End: 20-54-7444OlnwvfYgxdemja Meza PAPER COATING MACHINE OPERATOR Work Phone: noms CWM FMComment on above:Type 2 diabetes mellitus without complications (CMS/HCC)Start: 02-28-2024 End: 19-69-6782QazmrjAredxkdv Meza PAPER COATING MACHINE OPERATOR Work Phone: noms CWM FMComment on above:Hyperuricemia without signs of inflammatory arthritis and tophaceous disease; Type 2 diabetes mellitus without complications (CMS/HCC)Type 2 diabetes mellitus with diabetic chronic kidney disease ([facility]/HCC)Hypothyroidism, unspecified (CMS/HCC); Unspecified atrial fibrillation ([facility]/HCC)Start: 01-25-2024 End: 22-12-2855Dlqzrt flowsheetBrittany Meza PAPER COATING MACHINE OPERATOR Work Phone: noMS CWM FMStart: 01-25-2024 End: 76-78-3013Kharnk flowsheetBrittany Meza PAPER COATING MACHINE OPERATOR Work Phone: NOMS CWM FMStart: 01-25-2024 End: 69-58-7080Ickofj outpatient visit 15 minutesEmilie Meza PAPER COATING MACHINE OPERATOR Work Phone: noms CWM FMComment on above:Type 2 diabetes mellitus with stage 3a chronic kidney disease, without long-term current use of insulin (HCC) (CMS/HCC) (Primary Dx); Essential hypertension (CMS/HCC); Acquired hypothyroidism (CMS/HCC); Need for influenza vaccinationStart: 01-25-2024 End: 11-42-0109drauzcqasaFWOQOXIHJian Merritt AvailableStart: 01-10-2024 End: 03-36-6151Oiyhhmheacij care manage srvc 14 day dischargeEmilie Meza PAPER COATING MACHINE OPERATOR Work Phone: noms CWM FMComment on above:Longstanding persistent atrial fibrillation (CMS/HCC) (Primary Dx)Start: 01-10-2024 End: 97-44-1122kjmebaxolzSWALPWNCJian Merritt AvailableStart: 12-28-2023 End: 21-47-1963HvnpeeJquzdhsc Fitzpatrick PAPER COATING MACHINE OPERATOR Work Phone: noms CWM FMComment on above:Unspecified atrial fibrillation (CMS/HCC)Start: 12-25-2023 End: 83-67-4082Zmktkwgxfc and management of inpatientDO Ren Mohan Work Phone: [facility] Work Phone: Start: 35-69-0566Tnxcxmr encounter procedureEmilie Meza PAPER COATING MACHINE OPERATOR Work Phone: noms HealthcareStart: 40-70-7532pajwojayfiKaAshish CaseyFacility:[id number]: 02-04-9385He [facility] Centerlui Schultz Work Phone: [phone]-Jhwsw [facility] [address] DO Work Phone: Start: 62-67-9171ydqxwknpduFMMDUOU SHELDON Facility:[id number]: 72-42-8246nnhpiihnviFTKVDZR SHELDONFacility:[id number]: 21-48-5233Hmrcnq outpatient visit 40 minutesShaikh Marion Work Phone: [phone]-Cinrz [facility] [address] DO Work Phone: Start: 68-69-1316abffpqhqnpKp. Shaikh Marion Facility:[id number]: 06-29-2022 End: 78-03-0921meqloazitqCU Shaikh Marion Work Phone: [facility] Work Phone: Start: 06-29-2022 End: 42-23-5517Sghvuaqn ReferredMD Shaikh Marion Work Phone: [facility]-Lab [facility] Work Phone: Start: 99-38-9184vdacexgbcjQt. Joseluis Casey Facility:[id number]: 14-55-9879yqgbyimgdfRtAshish CaseyFacility:[id number]: 06-22-2022 End: 30-69-6490Hfppektkjl and management of inpatientMD Shaikh Marion Work Phone: [facility] Work Phone: Start: 29-23-0839amygvcooptWa. Joseluis Casey Facility:[id number]: 06-21-2022 End: 76-14-6377uysrhjnwwtSU JAYY HinojosaFacility:T1Gtlwd: 12-29-2021 End: 80-84-0777fpltsezasxGBLKXI H FAWWADFacility:O7Emukx: 09-29-2021 End: 76-44-9971wrhmktwuovSGGPJI H FAWWADFacility:Z5Dawno: 06-30-2021 End: 28-78-6109cvnkhcfxzsQSUZSE H FAWWADFacility:L3Dykdy: 04-06-2018 End: 58-37-0859Ozgszftzvg and management of inpatientSARMED MANSURFacility:[facility] Start: 11-05-2017 End: 32-00-3401Bunqrji encounterStepmadhavi Patrick ReineckFacility:[facility] [place] [place] Procedures DateProcedureProcedure DetailPerforming ClinicianStart: 70-85-5849QMB MAGNESIUM Ирина Brown PAPER COATING MACHINE OPERATOR Work Phone: Start: 74-06-1169KIC CBC WITH AUTO DIFFLisa Tomasz PAPER COATING MACHINE OPERATOR Work Phone: Start: 15-78-4333Uhgizvckkp glycosylated r7nZccc Kevin PAPER COATING MACHINE OPERATOR Work Phone: Start: 42-60-3677MGJGE CULTURE - [facility] [place]Generic External Data ProviderStart: 50-81-3465SZT CBC WITH AUTO DIFFBrittany Meza PAPER COATING MACHINE OPERATOR Work Phone: Start: 10-25-5401Ozgcfw scan of lower limb veinsDO Ren Mohan Work Phone: Start: 17-69-1598Xnbke chest X-rayDO Ren Mohan Work Phone: Start: 78-36-5125Snrjwvpbkjx Panel (PCR)DO Ren Mohan Work Phone: Start: 76-60-7942Pxzzkyy of percutaneous transluminal coronary angioplastyHistory of PTCAWilliam Jacinto YANEZ Work Phone: Start: 31-31-3305Nvmpkqn of coronary artery bypass graftingHistory of coronary artery bypass graftWilliam Jacinto YANEZ Work Phone: Start: 25-57-9867Cuoknnq of coronary artery bypass graftingHistory of coronary artery bypass graftBrcassandraany Meza PAPER COATING MACHINE OPERATOR Work Phone: Start: 44-98-2357Gyhoz colonoscopyShaikh Birgitwesme Work Phone: Start: 57-45-0101IHHLRTXV OF 1 COR ART WITH 3 DRUG- ELUT, PERC APPROACHGEORGE V MOUKARBELStart: 52-04-1387CGONMLVGNFX OF L INT MAMM GRAFT USING OTH CONTRASTGEORGE V MOUKARBELStart: 73-47-5978JHVJDSEQQRG OF MULT COR A GRAFT USING OTH CONTRASTGEORGE V MOUKARBELStart: 29-20-8165GDAEWTUSWEA OF MULTIPLE CORONARY ARTERIES USING OTH CONTRASTGEORGE V MOUKARBELAppendectomy Shaikh Marion Work Phone: History of coronary artery bypass graftingHistory of coronary artery bypass graftSyousif Schultz Work Phone: History of coronary artery bypass graftingHistory of coronary artery bypass graftJoseluis Casey DO Work Phone: History of coronary artery bypass graftingHx of coronary artery bypass graftИрина Brown PAPER COATING MACHINE OPERATORDimitriosC Work Phone: History of placement of stent for coronary artery diseaseHistory of heart artery stentMD Shaikh Marion Work Phone: Comment on above:March 2018- 3 stents placed at [facility] List clean-up per request of Phys. EHR CmteInsertion of inferior vena caval filterSyousif Schultz Work Phone: Plan of Treatment DateCare ActivityDetailAuthorStart: 10-22-2025 End: 10-19-7080Khwwpcq encounter ktxbndroy73/03/2026 10:00 AM EDT Office Visit [facility] [address] [facility] [address] [place] [address] Mackenzie Zhang, FRONT LINE LEADER-WASH BARREL LEADER [address] [facility] [address], [address] [place] [address] [facility] CenterStart: 25-72-9621Qaluavyf screening Diabetes: Retinopathy ScreeningResearch Psychiatric CenterStart: 09-04-2025 End: 24-51-4860Sdqamxt encounter xwlpofnbe75/16/2026 10:00 AM EDT Office Visit [facility] [address] [place] [phone] Ирина Brwon NP [address] [place] [phone] [facility] FMStart: 06-10-2026Medicare Annual Wellness (AWV) Medicare Annual Wellness (AWV)[facility] CenterStart: 13-43-1130Bjthw screening for proteinDiabetes: Urine Protein ScreeningResearch Psychiatric CenterStart: 01-01-2025 End: 65-49-9345Ulctvpz encounter nowhxhlmt37/13/2025 9:20 AM EDT Office [facility] [address] [place] [address] Ирина Brown, YOAN [address] [place] [address] [facility] FMStart: 14-36-3122EepqpuuyokufahgdQjxepxozaaquib [facility] CenterStart: 57-25-7891Yhzckvkiui A1c measurement Diabetes: Hemoglobin S9PVZULResearch Psychiatric CenterStart: 88-11-2552Cjffqszfv vaccination Influenza Vaccine (#1)[facility] CenterStart: 10-31-2024 End: 23-08-1758Bmxjbaq encounter procedureNOCORDELL MEMORIAL [facility] FMComment on above:Type 2 diabetes mellitus with diabetic polyneuropathy, without long-term current use of insulin (HCC) (Primary Dx); Longstanding persistent atrial fibrillation (HCC); Pulmonary embolism, unspecified chronicity, unspecified pulmonary embolism type, unspecified whether acute cor pulmonale present (HCC); Essential hypertension ; Chronic diastolic (congestive) heart failure (HCC); Chronic kidney disease, stage 3b ([facility]-HCC); Type 2 diabetes mellitus with stage 3b chronic kidney disease, without long-term current use of insulin (HCC); Morbid (severe) obesity due to excess calories ([facility]-HCC); Acquired hypothyroidismStart: 10-15-2024 End: 52-05-3775Kqrkzxuno [Mass/volume] in Serum or PlasmaMagnesium Lab Routine Hypomagnesemia Expected: 10/15/2024 (Approximate), Expires: 09/15/2025NOFulton [facility] Work Phone: Comment on above:Expected: 10/15/2024 (Approximate), Expires: 09/15/2025Start: 09-19-2024 End: 50-75-0021Pvyjcspeo [Mass/volume] in Serum or PlasmaMagnesium Lab Routine Hypomagnesemia Expected: 09/19/2024 (Approximate), Expires: 08/29/2025[facility] HealthcareComment on above:Expected: 09/19/2024 (Approximate), Expires: 08/29/2025Start: 08-29-2024 End: 00-03-6453AFF W Auto Differential panel - BloodCBC and differential Lab Routine Type 2 diabetes mellitus with stage 3b chronic kidney disease, without long-term current use of insulin (HCC) (CMS/HCC) Expected: 08/29/2024 (Approximate), Expires: 08/29/2025[facility] Work Phone: Comment on above:Expected: 08/29/2024 (Approximate), Expires: 08/29/2025Start: 08-29-2024 End: 24-48-0992Fxlswouhykzjd metabolic 2000 panel - Serum or PlasmaComprehensive metabolic panel Lab Routine Essential hypertension ([facility]) Chronic diastolic (congestive) heart failure Coronary artery disease involving crow coronary artery of crow heart without angina pectoris ([facility]) Type 2 diabetes mellitus with diabetic polyneuropathy, without long-termcurrent use of insulin ([facility]) Expected: 08/29/2024 (Approximate), Expires: 08/29/2025[facility] Comment on above:Expected: 08/29/2024 (Approximate), Expires: 08/29/2025Start: 08-29-2024 End: 35-41-1103Qlmezfee [Mass/volume] in Serum or PlasmaFerritin Lab Routine Type 2 diabetes mellitus with stage 3b chronic kidney disease, without long-term current use of insulin (HCC) ([facility]) Expected: 08/29/2024 (Approximate), Expires: 08/29/2025[facility] CenterComment on above:Expected: 08/29/2024 (Approximate), Expires: 08/29/2025Start: 08-29-2024 End: 92-70-8248Dyqm + transferrin + TIBCIron + transferrin + TIBC Lab Routine Type 2 diabetes mellitus with stage 3b chronic kidney disease, without long-term current use of insulin (HCC) (CMS/[facility]) Expected: 08/29/2024 (Approximate), Expires: 08/29/2025[facility] HealthcareComment on above:Expected: 08/29/2024 (Approximate), Expires: 08/29/2025Start: 08-29-2024 End: 84-00-5543[place] 1996 panel - Serum or PlasmaLipid panel Lab Routine Coronary artery disease involving crow coronary artery of crow heart without angina pectoris ([facility]) Expected: 08/29/2024 (Approximate), Expires: 08/29/2025[facility] HealthcareComment on above:Expected: 08/29/2024 (Approximate), Expires: 08/29/2025Start: 08-29-2024 End: 66-47-8961Nihszsvvj [Mass/volume] in Serum or PlasmaMagnesium Lab Routine Type 2 diabetes mellitus with stage 3b chronic kidney disease, without long-term current use of insulin (HCC) ([facility]) Expected: 08/29/2024 (Approximate), Expires: 08/29/2025[facility] HealthcareComment on above:Expected: 08/29/2024 (Approximate), Expires: 08/29/2025Start: 08-29-2024 End: 84-49-6952Acosrhulhk.intact [Mass/volume] in Serum or PlasmaPTH, intact Lab Routine Type 2 diabetes mellitus with stage 3b chronic kidney disease, without long-term current use of insulin (HCC) ([facility]) Expected: 08/29/2024 (Approximate), Expires: 08/29/2025[facility] HealthcareComment on above:Expected: 08/29/2024 (Approximate), Expires: 08/29/2025Start: 08-29-2024 End: 48-46-1768Tslkrxdou [Moles/volume] in Serum or PlasmaPhosphorus Lab Routine Type 2 diabetes mellitus with stage 3b chronic kidney disease, without long-t erm current use of insulin (HCC) ([facility]) Expected: 08/29/2024 (Approximate), Expires: 08/29/2025[facility] HealthcareComment on above:Expected: 08/29/2024 (Approximate), Expires: 08/29/2025Start: 08-29-2024 End: 11-26-5918Raiykfkpmc complete panel - UrineUrinalysis with reflex microscopic (clean catch) Lab Routine Type 2 diabetes mellitus with stage 3b chronic kidney disease, without long-term current use of insulin (HCC) (CMS/HCC) Essential hypertension (CMS/HCC) Type 2 diabetes mellitus with diabetic polyneuropathy, without long-term current use of insulin (CMS/HCC) Expected: 08/29/2024 (Approximate), Expires: 08/29/2025[facility] HealthcareComment on above: Expected: 08/29/2024 (Approximate), Expires: 08/29/2025Start: 08-29-2024 End: 35-42-2073Slyjcoo encounter procedureNOMS [facility] FMComment on above:Medicare annual wellness visit, subsequent (Primary Dx); Type 2 diabetes mellitus with stage 3b chronic kidney disease, without long-term current use of insulin (HCC) (CMS/HCC); Morbid (severe) obesity due to excess calories ([facility]/HCC); Acquired hypothyroidism ([facility]/HCC); Essential hypertension (CMS/HCC); Chronic diastolic (congestive) heart failure; Coronary artery disease involving crow coronary artery of crow heart without angina pectoris ([facility]/HCC); Type 2 diabetes mellitus with diabetic polyneuropathy, without long-term current use of insulin ([facility]/HCC)Start: 79-05-9828Sbhyxmsmsv A1c measurementDiabetes: Hemoglobin W9KSGVBResearch Psychiatric CenterStart: 57-41-3312Htwluhxn identified in Urine by CultureUrine [facility] - Columbustart: 15-12-1657Ruskh [facility] Hospitaltart: 05-25-2024 End: 11-63-2318Prqicmn encounter astkxfooe88/06/2025 10:30 AM EST Office Visit [facility] [address] [place] [address] Ирина Brown NP [address] [place] [address] Cardiomyopathy, ischemic (CMS/HCC) (Primary Dx); 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/HCC); Chronic diastolic (congestive) heart failure (CMS/HCC); 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/HCC); Chronic kidney disease, stage 3b (HCC) (CMS/HCC); 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); 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elsewhere (CMS/HCC); 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); Hairy cell leukemia, in remission (CMS/HCC); Unspecified atrial fibrillation (CMS/HCC); Morbid (severe) obesity due to excess calories (CMS/HCC); Body mass index (BMI) 40.0-44.9, adult (CMS/HCC); Coronary artery disease involving crow coronary artery of crow heart without angina pectoris (CMS/HCC); Essential hypertension (CMS/HCC); Acquired hypothyroidism (CMS/HCC); Factor V Leiden mutat ion (CMS/HCC); Statin intoleranceNOMS [facility] FMComment on above:Cardiomyopathy, ischemic (CMS/HCC) (Primary Dx); Type 2 diabetes [...] 40.0-44.9, adult (CMS/HCC); Coronary artery disease involving crow coronary artery of crow heart without angina pectoris (CMS/HCC); Essential hypertension (CMS/HCC); Acquired hypothyroidism (CMS/HCC); Factor V Leiden mutation (CMS/HCC); Statin intoleranceStart: 05-01-2024 End: 88-26-9952Pkhxrjr encounter fqhxitmah69/10/2025 9:00 AM EST Office Visit [facility] [address] [place] [address] Emilie Meza NP [address] [place] [address] [facility] FMStart: 01-22-2025Medicare Annual Wellness (AWV) Medicare Annual Wellness (AWV)[facility] HealthcareStart: 21-44-7852Yuwjmatdtxpr Vaccine: 65+ Years (2 of 2 - PCV)Pneumococcal Vaccine: 65+ Years (2 of 2 - PCV) [facility] HealthcareComment on above:Postponed from 03/22/2003 (Patient Refused) Start: 63-53-6751Rnrpszaot vaccinationInfluenza Vaccine (#1)[facility] Healthcare Comment on above:Postponed from 11/21/2023 (Patient Ill Today)Start: 01-25-2024 End: 48-96-4958WAM W Auto Differential panel - BloodCBC and differential Lab Routine Type 2 diabetes mellitus with stage 3a chronic kidney disease, without long-term current use of insulin (HCC) (CMS/HCC) Essential hypertension (CMS/HCC) Expected: 01/25/2024 (Approximate), Expires: 01/24/2025[facility] Comment on above:Expected: 01/25/2024 (Approximate), Expires: 01/24/2025Start: 01-25-2024 End: 07-80-3954Cutrihngamtmm metabolic 2000 panel - Serum or PlasmaComprehensive metabolic panel Lab Routine Type 2 diabetes mellitus with stage 3a chronic kidney disease, without long-term current use of insulin (HCC) (CMS/HCC) Essential hypertension (CMS/HCC) Expected: 01/25/2024 (Approximate), Expires: 01/24/2025[facility] HealthcareComment on above:Expected: 01/25/2024 (Approximate), Expires: 01/24/2025Start: 01-25-2024 End: 66-40-0446Ukranqmugk A1c/Hemoglobin.total in BloodHemoglobin A1c Lab Routine Type 2 diabetes mellitus with stage 3a chronic kidney disease, without long-term current use of insulin (HCC) (CMS/HCC) Essential hypertension (CMS/HCC) Expected: 01/25/2024 (Approximate), Expires: 01/24/2025[facility] Comment on above:Expected: 01/25/2024 (Approximate), Expires: 01/24/2025Start: 01-25-2024 End: 09-20-6531KMH W/REFLEX TO FT4TSH W/REFLEX TO FT4 Lab Routine Acquired hypothyroidism (CMS/HCC) Expected: 01/25/2024 (Approximate), Expires: 01/24/2025 [facility] HealthcareComment on above:Expected: 01/25/2024 (Approximate), Expires: 01/24/2025Start: 01-25-2024 End: 96-65-4553Fwcffjc encounter procedureNOMS CW FMComment on above:Arrived Start: 01-10-2024 End: 98-18-3245Ysglefl encounter pgixtnetr60/21/2024 11:00 AM EDT Office Visit [facility] [address] [place] [address] Emilie Meza, PAPER COATING MACHINE OPERATOR [address] [place] [address] [facility] FMStart: 37-31-4223IoegysnppOhio State Health System Start: 29-34-7302Njcwx culture for bacteria, including anaerobic screenBlood CultureFostoria City Hospitaltart: 99-84-1418Tjxcfqki admission [facility] Hospitaltart: 78-20-5893OOMCF-19 Vaccine ( season)COVID-19 Vaccine ( season)[facility] Start: 03-25-9283Dxlxuqkki vaccinationInfluenza Vaccine (#1)[facility] Healthcare Start: 27-02-2353Dgfgyvsnzy A1c measurementDiabetes: Hemoglobin Y1SFXTJ HealthcareStart: 92-02-2193KAJ, Provider: Joseluis Casey, Status: Pen, Time: 9:20 AMFUV, Provider: Joseluis Casey, Status: Pen, Time: 9:20 AMNorth [facility] HealthAquilino [facility] DO Work Phone: Start: 92-17-2458ULCY ONLY, Provider: AQUILINO [facility] NUCLEAR ,[id number], Status: Pen, Time: 1:00 PMREST ONLY, Provider: AQUILINO PAYNEI NUCLEAR 01,[id number], Status: Pen, Time: 1:00 PM-[facility] [place] [address] DO Work Phone: Start: 93-91-1757LUELXOMDY6, Provider: AQUILINO PAYNEI NUCLEAR 01,[id number], Status: Pen, Time: 1:00 PMSTRESSNUC2, Provider: AQUILINO PAYNEI NUCLEAR 01,[id number], Status: Pen, Time: 1:00 PM-[facility] [place] [address] DO Work Phone: Start: 38-42-0408MwiyctbmuOhio State Health System Start: 34-59-8148Yharcnqp admissionFostoria City Hospitaltart: 87-20-9831UCD High Risk: (Elderly (60+) or Population) (1 - 1-dose 75+ series)RSV High Risk: (Elderly (60+) or Population) (1 - 1-dose 75+ series)[facility] CenterStart: 60-32-0476Kgqexcfocekc vaccinationPneumococcal Vaccine (2 of 2 - PCV)[facility] Start: 37-05-0594Gxppyrrkfnxi Vaccine: 65+ Years (2 of 2 - PCV)Pneumococcal Vaccine: 65+ Years (2 of 2 - PCV)[facility] HealthcareStart: 04-84-9485Aaxbxvphb for osteoporosisBone Density ScanUnRiverside Methodist Hospital: 07-19-1957 DTaP/Tdap/Td Vaccines (1 - Tdap)DTaP/Tdap/Td Vaccines (1 - Tdap)[facility]: 38-12-8353Jjbom screening for proteinDiabetes: Urine Protein ScreeningMO[facility] REGIONAL [facility] HealthcareStart: 40-33-0682Kbpyzr Vaccines (1 of 2) Zoster Vaccines (1 of 2)[facility]: 07-19-1945 Glaucoma screeningDiabetes: Retinopathy ScreeningUnRiverside Methodist Hospital: 90-28-2723Ebrugdlael measurementCreatinine LevelUnRiverside Methodist Hospital: 19-77-5556Mcxshimdsp A1c measurementDiabetes: Hemoglobin M0BPinicqpjtnMount Carmel Health System: 48-57-9658Nuakz panelLipid PanelMount Carmel Health System: 04-29-1938Medicare Annual Wellness VisitMedicare Annual Wellness Visit (AWV)[facility] Start: 14-10-6444Efniugdyu measurementPotassium LevelUnRiverside Methodist Hospital: 58-90-0957Wkiwdav stimulating hormone measurementTSH Level [facility]: 93-91-4694Zecyn screening for protein Diabetes: Urine Protein ScreeningLakeHealth Beachwood Medical CenterBlood chemistryOhio State Health SystemMicroalbumin/Creatinine panel in random UrineMicroalbumin / creatinine urine ratio Lab Routine Type 2 diabetes mellitus with stage 3a chronic kidney disease, without long-term current use of insulin (HCC) ([facility]/HCC) Essential hypertension ([facility]) Ordered: 01/25/2024[facility] Work Phone: Comment on above:Ordered: 4Patient Education [facility] Work Phone: Patient referralWadsworth-R[facility] Work Phone: [facility] Lab Routine 07/06/2024 1:[address] [facility] Immunizations Immunization DateImmunizationNotesCare LixaayytJlmfsjwt06-50-9182Xofkxuxkv, injectable, Madin [place] Canine Kidney, preservative free, quadrivalentBrittany Derrick PAPER COATING MACHINE OPERATOR Work Phone: [facility] CenterWakjwehtbi17-64-0197owqyzlocv virus vaccine, unspecified formulationИрина Brown PAPER COATING MACHINE OPERATOR Work Phone: noFulton Medical Center- FultonYdjhnkekfw48-49-7002Jfuqsav COVID-19 Vaccine 100 MCG/0.5ML Intramuscular [facility] Hospitallui Schultz Work Phone: [phone]-JhynoJackson [facility] 244 DO Work Phone: [phone] trivalent influenza vaccine, adjuvanted, preservative freeBaptist Health Louisvillelui Zamorad Work Phone: mpJackson Medical Center 250 DO Work Phone: [phone] virus vaccine, unspecified formulationSirishajackie WillsonMeza PAPER COATING MACHINE OPERATOR Work Phone: [facility] CenterAglbzikwuv27-96-0529Mvplqgi COVID-19 Vaccine 100 MCG/0.5ML Intramuscular SuspensionShaikh Fawwad Work Phone: [phone]-MqnosStephanie Ville [address] DO Work Phone: [phone] COVID-19 Vaccine 100 MCG/0.5ML Intramuscular SuspensionShaikh Fawwad Work Phone: [phone]-QpncmStephanie Ville [address] DO Work Phone: [phone] trivalent influenza vaccine, adjuvanted, preservative freeShaikh Fawwad Work Phone: [phone]-FtqphStephanie Ville [address] DO Work Phone: [phone] trivalent influenza vaccine, adjuvanted, preservative freeShaikh Fawwad Work Phone: [id number]-VxmfuStephanie Ville [address] DO Work Phone: [phone] trivalent influenza vaccine, adjuvanted, preservative freeShaikh Fawwad Work Phone: [phone]-NcdesStephanie Ville [address] DO Work Phone: [phone] trivalent influenza vaccine, adjuvanted, preservative freeShaikh Fawwad Work Phone: [phone]-VcajfStephanie Ville [address] DO Work Phone: [phone], injectable, quadrivalent, contains preservativeShaikh Fawwad Work Phone: [phone]-DcfwaStephanie Ville [address] DO Work Phone: [phone], seasonal, injectableShaikh Fawwad Work Phone: [phone]-Wqstf [facility] 250 DO Work Phone: [phone] polysaccharide vaccine, [address] Work Phone: [phone]-Agihn [facility] 250 DO Work Phone: Comment on above:Series: Payers DatePayer CategoryPayerPolicy [id number]-[id number] [facility] (Private)[facility] .[id number] Health [id number] 2003Medicare [id number] [id number] [id number] 840.1.932606.3.57[id number] 2.840.1.291340.3.57[id number] 2.840.1.919396.3.57[id number] 2.16840.1.752647.3.57[id number] 2.840.1.362299.3.57[id number] 2.16840.1.359374.3.57[id number] 2.0.1.732754.3.57[id number] 2.0.1.873326.3.57[id number] 2.0.1.374109.3.57[id number] 2..1.694065.3.57[id number] 2.840.1.496789.3.57[id number] 2.0.1.638068.3.57[id number] 2.840.1.438518.3.57[id number] 2.840.1.358418.3.57[id number] 2.16840.1.695535.3.57[id number] 2.840.1.157403.3.57[id number] 2.0.1.732446.3.57[id number] 2.840.1.06873[id number] 2..840.1.179476.3.579.2.531 Social History DateTypeDetailFacilityStart: 06-22-2022 End: 94-23-7842Vjwtqwn smoking status NHISEx-smoker (finding)[facility]: 29-25-4215Rpy Assigned At BirthFeRegency Hospital Cleveland Easttart: 10-25-2023 End: 87-59-5260Onljksew useCaffeine useMercy Hospital 250 DO Work Phone: Comment on above:2.5 cups coffee in morning;Start: 10-19-2023 End: 40-62-3650Rqnobut smoking status NHISNever smoked tobaccoNOMS Healthcare Start: 10-19-2023 End: 62-06-2497Fkvwshz use and exposureSmokeless tobacco non-userNOMS Healthcare Start: 10-25-2023 End: 01-89-5085Nbkdwbiou beverage intakeLifetime non-drinker (finding)[facility] HealthcareStart: 10-25-2023 End: 83-33-0372Rqorndd use panelNOMS HealthcareStart: 61-15-4610Hxr assigned at birthNot on fileNOMS HealthcareStart: 30-35-3187AudTifsnb (finding)[facility]tart: 89-98-5272BobCzyhjtWqywwuqdydParkview HealthNEGATED: Highlighted rowStart: NINFHistory of tobacco usePassive smoker [facility] Medical Equipment Procedure CodeEquipment CodeEquipment Original TextEquipment IdentifierDates1 each by Other route Daily Use as [id number]: 10-31-2024 End: 02-08-2025 Goals DatePatient GoalDesired Activity/State Functional Status WjdvJjgkhcdmvaWcrogaYxupmjpi91-20-8959Ujsxljf Health Questionnaire 2 item (PHQ- 2) [Reported][facility]iatric CenterGleikwvrnv77-09-6823Ezrphueypf statusPatient at [facility] Work Phone: [phone]vr statusPatient at [facility] Work Phone: [facility] Mental Status YwzyZipyfzspblPgzexwLqebtyqx35-93-6222Bcschhehx functionCognitive Status [facility] Work Phone: [phone]ylf functionCognitive Status [facility] Work Phone: Clinical Notes 06-22-2022 to 10-31-2024 Note Date & WlrvHssqApssfvwj03-55-3016 History of Present illness Narrative* Ирина Brown NP - 10/31/2024 10:13 AM EDTAssociated Problem(s): Diarrhea Reports that has resolved, still not a lot of appetite, is drinking fluids and staying hydrated Will call with update on condition * LIZETTE SILVERMAN - 10/31/2024 9:20 AM EDT Pt has been sick for over a [...] she has a fu in 1 year * Ирина Brown, YOAN - 10/31/2024 9:20 AM EDT Images from the original note were not [...] Negative for abdominal pain, blood in stool, constipation,nausea and vomiting. Genitourinary: Negative for difficulty urinating, [...] (coronary atherosclerotic disease) CHF (congestive heart failure) ([facility]) Chronic diastolic heart failure (HCC) CKD stage 3 secondary to diabetes ([facility]) CLL (chronic lymphocytic leukemia) ([facility]) Edema, unspecified type Factor 5 Leiden mutation, [...] ARTERY BYPASS GRAFT x4 OTHER SURGICAL HISTORY [place] Filter family history includes Diabetes in an [...] Morbid (severe) obesity due to excess calories ([facility]) Discussed with patient their BMI (actual, verses [...] jazmine, and diuretic\ Follow[place] with [place]ology in [place], [place] 3b [place] Control blood pressure and blood sugars Check [...] hydrated Will call with update on condition * Ирина Brown NP - 10/31/2024 6:28 AM EDTAssociated Problem(s): Factor V Leiden mutation ([facility]) On xarelto * Ирина Brown NP - 10/31/2024 6:28 AM EDTAssociated Problem(s): Acquired hypothyroidism Current med: levothyroxine Check labs yearly, and prn dose changes or changes in symptoms * Ирина Brown NP - 10/31/2024 6:28 AM EDTAssociated Problem(s): Morbid (severe) obesity due to excess calories [place] Discussed with patient their BMI (actual, verses recommended). We have also discussed lifestyle modifications: attempts to perform physical activity as chronic conditions allow, also to monitor dietary intake: increasing protein/fruits/veggies and lowering carb intake (unless contraindicated). Limit sodas, juices, and sugary drinks. * Ирина Brown NP - 10/31/2024 6:28 AM EDTAssociated Problem(s): Type 2 diabetes mellitus with diabetic [...] Xarelto A1c: 6.4% 08/29/24 7% on 04/17/24 * Ирина Brown NP - 10/31/2024 6:27 AM EDTAssociated Problem(s): Chronic kidney disease, stage 3b ([facility]) Control blood pressure and blood sugars Check labs yearly and prn * Ирина Brown NP - 10/31/2024 6:27 AM EDTAssociated Problem(s): Chronic diastolic (congestive) heart failure (HCC) On b jazmine, and diuretic\ Follows with cardiology in [place] * Ирина Brown NP - 10/31/2024 6:27 AM EDTAssociated Problem(s): Essential hypertension Please check blood pressure [...] however last week at cardiology was normal * Ирина Brown NP - 10/31/2024 6:27 AM EDTAssociated Problem(s): Pulmonary embolism (HCC) On xarelto * Ирина Brown NP - 10/31/2024 6:27 AM EDTAssociated Problem(s): Unspecified atrial fibrillation (HCC) B jazmine and xarelto A fib today , rate controlled * Ирина Brown NP - 10/31/2024 6:26 AM EDTAssociated Problem(s): Type 2 diabetes mellitus with diabetic polyneuropathy (HCC) No current meds for this Recommend freq foot checks, proper fitting shoes Adequate blood sugar control documented in this encounterResearch Psychiatric [id number] Instructions* Patient Instructions* Ирина Brown NP - 10/31/2024 9:20 AM EDT Check blood pressure at home for next 2 days and call me morning with results, we may needto adjust blood pressure meds Try to increase the magnesium supplement to 2 pills (500mg total) Magnesium, 3 weeks check the blood documented in this encounterResearch Psychiatric CenterQbqnqdxesh63-77-2926 History of Present illness Narrative* Joseluis Casey DO - 10/18/2024 10:00 AM EDT Chief Complaint Patient presents with Annual Exam 1 year follow up for ASHD (arteriosclerotic heart disease) Subjective Mohan Espinoza is a 89 y.o. female 89-year-old female returns for annual cardiovascular follow-up and is doing well from a cardiovascular standpoint. She had a recent fall, and UTI and spent 1 month at [facility] and now is back home, independent. She [...] Allergies Yusef inhibitors, Arb-angiotensin receptor antagonist, and Hpnbrtn-wzu-eyf reductase inhibitors Current Medications Current Outpatient Medications [...] Scribe Attestation By signing my name below, Selena Hollis LPN, Scribe attest that this documentation has been prepared under the direction and in the presence of Deanna Casey DO. Provider Attestation - Scribe documentation All medical record entries made by the Leonardibe were at my direction and personally dictated by me. Ligia reviewed the chart and agree that the record accurately reflects my personal performance of the history, physical exam, discussion and plan. documented in this encounterLakeHealth [facility] Work Phone: 1(482) 868-689607-30-2025 Instructions* Patient Instructions* Selena Jones LPN - 10/18/2024 10:00 AM [...] visit. Medical reason BMI was not measured. * Attachments The following attachments cannot be sent through Care Everywhere. * Quitting smoking (Azerbaijani) * Heart Healthy Diet (Azerbaijani) documented in this encounterUnSelect [facility] [place] Work Phone: 1(793) 554-222606-10-2025 History of Present illness Narrative* Ирина Brown NP - 08/29/2024 12:47 PM EDTAssociated Problem(s): Hypomagnesemia May try otc magnesium oxide 240 or 250mg Check labs in 3 weeks * LIZETTE SILVERMAN - 08/29/2024 10:30 AM EDT [facility] [place] [facility] [place] a [facility]. Pt came in today walking with a Rolator walker. Pt is needing a glucose meter and strips. Pt has been using her husbands. Pt typically gets a 125 fasting glucose Pt unable to get weight today- weakness and SOB * Ирина Brown NP - 08/29/2024 10:30 AM EDT Images from the original note were not [...] the last year: yes Specialist: Dr Casey [facility]/Living Will: working that Concerns: discharged from [place] SUBJECTIVE: MEDICATIONS: Current Outpatient Medications Medication Instructions [...] At moderate risk for fall Atrial fibrillation (CMS/HCC) CAD (coronary atherosclerotic disease) (CMS/HCC) CHF (congestive heart failure) (CMS/HCC) Chronic diastolic heart failure (CMS/HCC) 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) (CMS/HCC) CLL (chronic lymphocytic leukemia) (CMS/HCC) Edema, unspecified type Factor 5 Leiden mutation, heterozygous (CMS/HCC) Fatigue Gout History of DVT (deep vein thrombosis) History of non-Hodgkin's lymphoma HLD (hyperlipidemia) (CMS/HCC) HTN (hypertension) (CMS/HCC) Hypercholesteremia (CMS/HCC) Hyperuricemia Hypothyroid (CMS/HCC) Iron deficiency anemia Left ankle swelling Peripheral [...] Sitting, BP Cuff Size: Adult long) Comment (BPLocation): forearm Pulse 83 Temp 98.1 F (Temporal) [...] List Items Addressed This Visit Acquired hypothyroidism ([facility]) Current med: levothyroxine Check labs yearly, and prn dose changes or changes in symptoms Essential hypertension ([facility]) Please check blood pressure daily and record DASH diet Limit caffeine Take medication as directed Contact office if chest pain, pressure, dizziness, shortness of breath, swelling legs Recommend slow position changes Current meds; diuretic, and b jazmine Relevant Orders Comprehensive metabolic panel Urinalysis with reflex microscopic (clean catch) Morbid (severe) obesity due to excess calories ([facility]) Discussed with patient their BMI (actual, verses recommended). We have also discussed lifestyle modifications: attempts to perform physical activity as chronic conditions allow, also to monitor dietary intake: increasing protein/fruits/veggies and lowering carb intake (unless contraindicated). Limit sodas, juices, and sugary drinks. Coronary artery disease involving crow coronary artery of crow heart without angina pectoris ([facility]) Unable to tolerate statin Does take b jazmine Relevant Orders Comprehensive metabolic panel Lipid panel Type 2 diabetes mellitus with diabetic chronic kidney disease ([facility]) Check blood sugars daily, notify if <70 [...] labs in 3 weeks Relevant Orders Magnesium * Ирина Brown NP - 08/29/2024 6:35 AM EDTAssociated Problem(s): Type 2 diabetes mellitus with diabetic polyneuropathy ([facility]/HCC) No current meds for this Recommend freq foot checks, proper fitting shoes Adequate blood sugar control * Ирина Brown NP - 08/29/2024 6:35 AM EDTAssociated Problem(s): Coronary artery disease involving crow coronary artery of crow heart without angina pectoris ([facility]) Unable to tolerate statin Does take b jazmine * Ирина Brown NP - 08/29/2024 6:35 AM EDTAssociated Problem(s): Chronic diastolic (congestive) heart failure On b jazmine, and diuretic * Ирина Brown NP - 08/29/2024 6:35 AM EDTAssociated Problem(s): Essential hypertension ([facility]/HCC) Please check blood pressure daily and record DASH diet Limit caffeine Take medication as directed Contact office if chest pain, pressure, dizziness, shortness of breath, swelling legs Recommend slow position changes Current meds; diuretic, and b jazmine * Ирина Brown NP - 08/29/2024 6:35 AM EDTAssociated Problem(s): Acquired hypothyroidism ([facility]/HCC) Current med: levothyroxine Check labs yearly, and prn dose changes or changes in symptoms * Ирина Brown NP - 08/29/2024 6:34 AM EDTAssociated Problem(s): Morbid (severe) obesity due to excess calories ([facility]) Discussed with patient their BMI (actual, verses recommended). We have also discussed lifestyle modifications: attempts to perform physical activity as chronic conditions allow, also to monitor dietary intake: increasing protein/fruits/veggies and lowering carb intake (unless contraindicated). Limit sodas, juices, and sugary drinks. * Ирина Brown NP - 08/29/2024 6:34 AM EDTAssociated Problem(s): Type 2 diabetes mellitus with diabetic chronic kidney disease ([facility]/HCC) Check blood sugars daily, notify if [...] asa d/t Xarelto A1c: 7% on 04/17/24 * Ирина Brown NP - 08/29/2024 6:33 AM EDTAssociated Problem(s): Medicare annual wellness visit, subsequent Reviewed Ht/Wt/BMI Recommend eye exam yearly Recommend dental exams twice a year Balance work/leisure activities Exercises is recommended most days of the week (appropriate as chronic conditions allow) Follow up yearly and prn documented in this encounterResearch Psychiatric [id number] History of Present illness Narrative* LIZETTE SILVERMAN - 05/25/2024 10:30 AM EST 102 fasting glucose this morning Pt had labs done 04/17 was told that her labs were good however she did not get urine results back * Ирина Brown NP - 05/25/2024 10:30 AM EST Images from the original note were not included. Mohan Espinoza is a 88 y.o. female presents with chief complaint of Diabetes HPI: Afib/CAD/CHF: follows with dr casey, no acute sxs, stable on meds Diabetes She presents for her follow-up diabetic visit. She has type 2 diabetes mellitus. Her disease coursehas been stable. There are no hypoglycemic associated symptoms. Pertinent negatives for hypoglycemia include no dizziness, headaches, nervousness/anxiousness, seizures or tremors. Associated symptomsinclude fatigue and foot paresthesias. Pertinent negatives for [...] headaches, palpitations, peripheral edema or shortness of breath.Risk factors for coronary artery disease include diabetes mellitus, dyslipidemia, obesity and sedentary lifestyle. Past treatments include beta blockers. The current treatment provides significant improvement. There are no compliance problems. Hypertensive end-organ damage includes kidney disease, CAD/IL and heart failure. Identifiable causes of hypertension include chronic renal disease and a thyroid problem. Thyroid Problem Presents for follow-up visit. Symptoms include diarrhea (intermittent) and fatigue. Patient reportsno anxiety, cold intolerance, constipation, depressed mood, hoarse [...] At moderate risk for fall Atrial fibrillation ([facility]) CAD (coronary atherosclerotic disease) ([facility]) CHF (congestive heart failure) ([facility]) Chronic diastolic heart failure ([facility]) 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) ([facility]) CLL (chronic lymphocytic leukemia) ([facility]) Edema, unspecified type Factor 5 Leiden mutation, heterozygous ([facility]) Fatigue Gout History of DVT (deep vein thrombosis) History of non-Hodgkin's lymphoma HLD (hyperlipidemia) ([facility]) HTN (hypertension) ([facility]) Hypercholesteremia ([facility]) Hyperuricemia Hypothyroid ([facility]) Iron deficiency anemia Left ankle swelling Peripheral neuropathy S/P CABG (coronary artery bypass graft) Type 2 diabetes mellitus ([facility]) Past Surgical History: Procedure Laterality Date APPENDECTOMY CARDIAC SURGERY Stents CORONARY ARTERY BYPASS GRAFT x4 OTHER SURGICAL HISTORY [place] Filter family history includes Diabetes in an [...] and sugary drinks. Coronary artery disease involving crow coronary artery of crow heart without angina pectoris ([facility]/HCC) Unable to tolerate statin Does take b jazmine Factor V Leiden mutation ([facility]/HCC) On xarelto Type 2 diabetes mellitus with diabetic chronic kidney disease ([facility]/HCC) Check blood sugars daily, notify if [...] Type 2 diabetes mellitus with diabetic cataract ([facility]/HCC) Chronic diastolic (congestive) heart failure ([facility]/HCC) On b jazmine, and diuretic Chronic kidney disease, stage 3b (HCC) ([facility]) Control blood pressure and blood sugars Check labs yearly and prn Type 2 diabetes mellitus with diabetic polyneuropathy ([facility]) No current meds for this Recommend freq foot checks, proper fitting shoes Adequate blood sugar control 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 elsewhere (CMS/HCC) Body mass index (BMI) 40.0-44.9, adult ([facility]/HCC) Cardiomyopathy, ischemic ([facility]/HCC) - Primary Noted from cardiology Current meds: b jazmine, aldactone, diuretics Statin intolerance Other Visit Diagnoses Chronic lymphocytic leukemia of B-cell type not having achieved remission ([facility]) Hyperuricemia without signs of inflammatory arthritis and tophaceous disease * Ирина Brown NP - 05/25/2024 6:52 AM ESTAssociated Problem(s): Factor V Leiden mutation ([facility]/HCC) On xarelto * Ирина Brown NP - 05/25/2024 6:51 AM ESTAssociated Problem(s): Type 2 diabetes mellitus with diabetic [...] asa d/t Xarelto A1c 7% on 04/17/24 * Ирина Brown NP - 05/25/2024 6:50 AM ESTAssociated Problem(s): Morbid (severe) obesity due to excess calories (CMS/HCC) Discussed with patient their BMI (actual, verses recommended). We have also discussed lifestyle modifications: attempts to perform physical activity as chronic conditions allow, also to monitor dietary intake: increasing protein/fruits/veggies and lowering carb intake (unless contraindicated). Limit sodas, juices, and sugary drinks. * Ирина Brown NP - 05/25/2024 6:50 AM ESTAssociated Problem(s): Acquired hypothyroidism (CMS/HCC) Current med: levothyroxine Check labs yearly, and prn dose changes or changes in symptoms * Ирина Brown NP - 05/25/2024 6:49 AM ESTAssociated Problem(s): Chronic kidney disease, stage 3b (HCC) (CMS/HCC) Control blood pressure and blood sugars Check labs yearly and prn * Ирина Brown NP - 05/25/2024 6:49 AM ESTAssociated Problem(s): Unspecified atrial fibrillation (CMS/HCC) B jazmine and xarelto A fib today , rate controlled * Ирина Brown NP - 05/25/2024 6:48 AM ESTAssociated Problem(s): Essential hypertension (CMS/HCC) Please check blood pressure daily and record DASH diet Limit caffeine Take medication as directed Contact office if chest pain, pressure, dizziness, shortness of breath, swelling legs Recommend slow position changes Current meds; diuretic, and b jazmine * Ирина Brown NP - 05/25/2024 6:48 AM ESTAssociated Problem(s): Coronary artery disease involving crow coronary artery of crow heart without angina pectoris (CMS/HCC) Unable to tolerate statin Does take b jazmine * Ирина Brown NP - 05/25/2024 6:48 AM ESTAssociated Problem(s): Chronic diastolic (congestive) heart failure (CMS/HCC) On b jazmine, and diuretic * Ирина Brown NP - 05/25/2024 6:47 AM ESTAssociated Problem(s): Cardiomyopathy, ischemic (CMS/HCC) Noted from cardiology Current meds: b jazmine, aldactone, diuretics * Ирина Brown NP - 05/25/2024 6:47 AM ESTAssociated Problem(s): Type 2 diabetes mellitus with diabetic polyneuropathy ([facility]) No current meds for this Recommend freq foot checks, proper fitting shoes Adequate blood sugar control documented in this encounterResearch Psychiatric [id number] Instructions* Patient Instructions* Ирина Brown NP - 05/25/2024 10:30 AM EST No changes in meds In 3 months medicare wellness documented in this [facility]11-05-2024 History of Present illness Narrative* Emilie Meza NP - 01/25/2024 11:07 AM ESTAssociated Problem(s): Essential hypertension ([facility]) Currently taking Metoprolol Succincate 100mg Checks BP at home; Averages are 120's/70's Denies orthostatic changes, dizziness, cough, shortness of breath, swelling in extremities. Continue current regimen. Given BP log, advised pt to record BP and bring log back with them to next visit. * Emilie Meza NP - 01/25/2024 11:06 AM ESTAssociated Problem(s): Type 2 diabetes mellitus with stage 3a chronic kidney disease, without long-term current use of insulin (HCC) ([facility]) Most recent labs: hemoglobin A1C Average FSBS [...] persistent hypoglycemia/hyperglycemia on home glucose monitoring noted. * Emilie Meza NP - 01/25/2024 11:06 AM ESTAssociated Problem(s): Acquired hypothyroidism ([facility]/HCC) On levothyroxine. TSH needs checked. Labs ordered today. * Emilie Meza NP - 01/25/2024 11:06 AM ESTAssociated Problem(s): Stage 3a chronic kidney disease (HCC) ([facility]/HCC) Most recent Creatinine: 1.28 eGFR 40 Continue to monitor closely Avoid nephrotoxic agents. * Emilie Meza NP - 01/25/2024 9:00 AM EST Images from the original note were not [...] Neurological: Negative for dizziness, tremors, syncope, weakness, light- headedness and headaches. Psychiatric/Behavioral: Negative for decreased concentration and suicidal ideas. The patient is notnervous/anxious. Hematological: Does not bruise/bleed easily. Endocrine: Negative [...] Need for influenza vaccination documented in this encounterResearch Psychiatric [id number] Instructions* Patient Instructions* Emilie Meza NP - 01/25/2024 9:00 AM EST FASTING labs ordered. Nothing to eat or drink for 12 hours prior to blood draw. Water and black coffee ok. Call if you need anything! documented in this encounterResearch Psychiatric [id number] History of Present illness Narrative* Emilie Meza NP - 01/10/2024 4:55 PM EDTAssociated Problem(s): Atrial fibrillation (CMS/HCC) Currently taking Eliquis. Was admitted to [facility] for NSTEMI 12/24 Echo ordered EF was 60%-65% [facility] discharged, believed troponin elevations were related to brief episode of Afib RVR No medication changes States she feels better presently, but is still fatigued. Follows with Dr. Monge Cardiology; Has not made an appointment to follow up with Cards yet. Advised pt to do so. * Emilie Meza NP - 01/10/2024 11:00 AM EDT Images from the original note were not included. Subjective Patient ID: Mohan Espinoza is a 88 y.o. female who presents for Hospital Follow-up. HPI Specialists: Dr. Casey- Cardiology Hospital Follow-Up: Was admitted to [facility] for NSTEMI 12/24-12/27 Echo ordered EF was 60%-65% [facility] discharged, believed troponin elevations were related to [...] Neurological: Negative for dizziness, tremors, syncope, weakness, light- headedness and headaches. Psychiatric/Behavioral: Negative for decreased concentration and suicidal ideas. The patient is notnervous/anxious. Hematological: Does not bruise/bleed easily. Endocrine: Negative [...] Primary Currently taking Eliquis. Was admitted to [facility] for NSTEMI 12/24 Echo ordered EF was 60%-65% [facility] discharged, believed troponin elevations were related to brief episode of Afib RVR No medication changes States she feels better presently, but is still fatigued. Follows with Dr. Casey- Cardiology; Has not made an appointment to follow up with Cards yet. Advised pt to do so. documented in this [facility]10-21-2024 Instructions* Patient Instructions* Emilie Meza NP - 01/10/2024 11:00 AM EDT Follow up with Cardiology- Call office to schedule appointment Joseluis Vuong DO [address] [id number] documented in this [facility]10-08-2024 Progress note Author Nelson Orourke [facility] December 27, 2023 10:24pmNote Date/TimeOct2023 10:24pmLaval[place] [address] Hospitalist Progress Note Signed Patient: Mohan Espinoza MR#: [id number] : 1935 Acct:[id number] Age/Sex: 88 / F Adm Date: 4 Loc: Room: [address] [place] [address] Type: ADM IN Attending Dr: Nelson Orourke [...] A&P - Hospitalist Assessment/Plan (1) Type 2 IL (myocardial infarction): Plan Documented By: Nelson Orourke DO 12/27/232221 Signed By: <Electronically signed by Nelson Orourke, > 12/27/232223 [facility] Work Phone: 1(692) 346-717910-06-2024 Progress note Author Apryl Shirley [facility] December 26, 2023 5:24pmNote Date/TimeOct2023 3:47pmLaval[place] [address] Hospitalist Progress Note Signed Patient: Mohan Espinoza MR#: [id number] : 1935 Acct:[id number] Age/Sex: 88 / F Adm Date: 4 Loc: Room: [address] [place] [address] Type: ADM IN Attending Dr: Apryl Shirley MD Copies to: ~ Date of Service: 12/26/2023 Subjective Subjective Narrative: Assessment And Plan 88-year-old female with previously known history of atrial fibrillation, hypertension, CKD , diabetes and hyperlipidemia, Hypothyroidism She presented to [facility] () ER earlier this evening with initially reported shortness of breath type 2 myocardial infarction Rule out NSTEMI She denies any chest pain or worsening SOB during her stay HS-Troponin 50 ()> 200 () > 280 ([facility]) > 73 (today) LDL 115 EKG () [...] A&P - Hospitalist Assessment/Plan (1) Type 2 IL (myocardial infarction): Plan Documented By: Apryl Shirley MD 12/26/23 1540 Signed By: <Electronically signed by Apryl Shirley MD> 12/26/23 6830 [facility] Work Phone: 1(946) 774-911410-06-2024 Progress note Author Apryl Shirley [facility] December 25, 2023 11:11pmNote Date/TimeOct2023 6:36pmLaval[place] [address] Hospitalist Progress Note Signed Patient: Mohan Espinoza MR#: [id number] : 1935 Acct:[id number] Age/Sex: 88 / F Adm Date: 4 Loc: Room: [address] [place] [address] Type: ADM IN Attending Dr: Apryl Shirley MD Copies to: ~ Date of Service: 12/25/2023 Subjective Subjective Narrative: Assessment And Plan 88-year-old female with previously known history of atrial fibrillation, hypertension, CKD , diabetes and hyperlipidemia, Hypothyroidism She presented to [facility] () ER earlier this evening with initially reported shortness of breath type 2 myocardial infarction Rule out NSTEMI She denies any chest pain or worsening SOB HS-Troponin 50 ()> 200 () > 280 ([facility]) LDL 115 EKG () shows afib RVR [...] Insuln.Pen SUBCUT 12/24/24 21:59 TID.WM.HS [facility] Protocol Insulin Glargine 15 units 12/25/23 22:00 [...] A&P - Hospitalist Assessment/Plan (1) Type 2 IL (myocardial infarction): Plan Documented By: Apryl Shirley MD 12/25/234 Signed By: <Electronically signed by Apryl Shirley MD> 12/25/23 0536 [facility] Work Phone: 1(435) 283-841010-05-2024 History and physical note Author Ren Mohan [facility] December 25, 2023 5:41amNote Date/TimeOct2023 3:[address] [id number] Hospitalist H&P Signed Patient: Mohan Espinoza MR#: [id number] : 1935 Acct:[id number] Age/Sex: 88 / F Adm Date: 4 Loc: Room: [address] [place] [address] Type: ADM IN Attending Dr: Ren Mohan DO Copies to: Ren Mohan, NO FAMILY PHYSICIAN~ HPI DATE OF EXAMINATION: 12/25/23 CHIEF COMPLAINT: Shortness of breath HISTORY OF PRESENT ILLNESS: This patient is an 88-year-old female with previously known history of atrial fibrillation, hypertension, type 2 diabetes and hyperlipidemia. She has been evaluated here at [facility] necessitating cardiology consultation for troponin elevation in [...] adjustment. Chemistries showed appropriate electrolytes BUN/creatinine 41/1.73. High-sensitivity troponin elevated at 51.6 with subsequent repeat 220.2. Urinalysis is benign appearing. Viral screening for COVID and influenza negative. Nonacute chest x-ray reported. I discussed the case earlier in the evening with ER physician at [place] and with rising troponinsACS cannot be excluded at this time and [...] and chills/cough. Shewas influenza and COVID-negative but willscreen with full viral PCR panel as her [...] this time has relatively good control of respiratorystatus with minimal hypoxia and mild tachycardia, persistent A- fib. Empirically will start azithromycin for concomitant anti-inflammatory effect given her work of breathing and faint wheeze audible at the bedside. Oddly when I actually listen to her lungs she is clear to auscultation. Will considerrepeat chest x-ray but empirically draw blood cultures [...] glipizide. Continue on 150 mg metoprolol ER. [facility] Medical History (Updated 12/25/23 @ 05:41 by Ren Mohan DO) Non-Hodgkin lymphoma in remission Patient recieved chemo therapy Problem List clean-up per request of Phys. EHR [facility] [place] filter in place Problem List clean-up per [...] List clean-up per request of Phys. EHR [facility] Surgical History (Updated 03/03/23 @ 14:47 by [employer]) History of appendectomy Problem List clean-up per request of Phys. EHR [facility] History of open heart surgery x4 Problem List clean-up per request of Phys. EHR [facility] History of heart artery stent March 2018- 3 stents placed at [facility] Problem List clean-up per request of Phys. EHR [facility] Family History Father Diabetes Mother Stroke [...] setting as: INPATIENT because of an expectation ofan over 2 midnight stay. Estimated length of stay (# of days): 3 Documented By: Ren Mohan DO 12/25/23 03 43 Signed By: <Electronically signed by Ren Mohan DO> 12/25/23 0541 [facility] Work Phone: 1(913) 289-550304-04-2023 Progress note Author Brissa Hoffman [facility] June 23, 2022 5:18pmNote Date/TimeApril 2022 12:11pmL[place] [address] Hospitalist Progress Note Signed Patient: Mohan Espinoza MR#: [id number] : 1935 Acct:[id number] Age/Sex: 86 / F Adm Date: 3 Loc: Room: [address] [place] [address] Type: ADM IN Attending Dr: Brissa Hoffman [...] Tablet PO 06/22/23 06:29 200 mcg DAILY@0630 [facility] Administration Losartan Potassium 100 mg 06/22/22 09:00 06/22/22 09:07 Losartan 50 Mg Tablet PO 06/22/23 08:59 Not Given DAILY [facility] Metoprolol Succinate 150 mg 06/24/22 09:00 Metoprolol Succinate 50 Mg Tab.Er.24h PO 06/24/23 08:59 DAILY [facility] Rivaroxaban 15 mg 06/22/22 17:00 06/22/22 17:00 Rivaroxaban 15 Mg Tablet PO 06/22/23 16:59 15 mg DAILY@17 [facility] Administration A&P - Hospitalist Assessment/Plan (1) Elevated [...] <Electronically signed by Brissa Hoffman MD> 06/23/22 [address] [facility] Work Phone: 1([phone]) 339-465104-04-2023 Hospital Discharge instructionsAmbulatory Orders* Initiate Home Health Time Frame: 06/23/22, Location: Determined By Patient Additional Instructions Please call and schedule an appointment with your established Promotions Intern. HOME HEALTH TO MANAGE: Nursing/PT to eval and treat Monitor VS per protocol Monitor Cardiovascular assessment--Elevated troponin, CAD, HTN Please draw a BMP in 5 days, Send to Dr. Fawwad Assist with medication management and provide medication education Assist with glucose control Provide education on high risk fall precautions [facility] Work Phone: 1([phone]) 650-973304-04-2023 Progress note Author W Jacinto [facility] June 23, 2022 9:56amNote Date/TimeApril 2022 9:[address] [id number] Cardiology Progress Note Signed Patient: Mohan Espinoza MR#: [id number] : 1935 Acct:[id number] Age/Sex: 86 / F Adm Date: 3 Loc: Room: [address] [place] [address] Type: ADM IN Attending Dr: Brissa Hoffman [...] above, to follow-up with Dr. 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) use of anticoagulants Status: Acute (9) Factor V Leiden: Code(s): D68.51 - Activated protein C resistance Status: Acute Documented By: Sharron Casey DO 06/23/22 0952 Signed By: <Electronically signed by Sharron Casey DO> 06/23/22 0956 [facility] Work Phone: 1([phone]) 901-895404-03-2023 Progress note Author Brissa Hoffman [facility] June 22, 2022 2:14pmNote Date/TimeApr2022 2:12pmLaval[place] [address] Hospitalist Progress Note Signed Patient: Mohan Espinoza MR#: [id number] : 1935 Acct:[id number] Age/Sex: 86 / F Adm Date: 3 Loc: 4 Room: [address] [place] [address] Type: ADM IN Attending Dr: Brissa Hoffman [...] Tablet PO 06/22/23 06:29 200 mcg DAILY@0630 [facility] Administration Losartan Potassium 100 mg 06/22/22 09:00 06/22/22 09:07 Losartan 50 Mg Tablet PO 06/22/23 08:59 Not Given DAILY [facility] Metoprolol Succinate 100 mg 06/22/22 09:00 06/22/22 09:08 Metoprolol Succinate 100 Mg Tab.Er.24h PO 06/22/23 08:59 Not Given DAILY [facility] Rivaroxaban 15 mg 06/22/22 17:00 Rivaroxaban 15 Mg Tablet PO 06/22/23 16:59 DAILY@17 [facility] A&P - Hospitalist Assessment/Plan (1) Elevated troponin: [...] signed by Brissa Hoffman MD> 06/22/22 14[address] [facility] Work Phone: [phone]) [phone] Consult note Author Sharron Casey [facility] June 22, 2022 12:49pmNote Date/TimeApr2022 11:[address] [address] Cardiology Consult Note Signed Patient: Mohan Espinoza MR#: [id number] : 1935 Acct:[id number] Age/Sex: 86 / F Adm Date: 3 Loc: Room: [address] [place] [address] Type: ADM IN Attending Dr: Brissa Hoffman MD Copies to: MD Shaikh Marion Vidal MD W [address] Sheldon, DO~ Cardiology HPI History of Present Illness Consult Date: 06/22/22 Reason for Consult: Elevated cardiac biomarkers, atrial fibrillation, ASHD HPI: Ms. Espinoza is a 86 year old female seen in cardiology consultation at the request of hospitalist after patient was transferred from [place] emergency room with elevated cardiac biomarkers. She presented with symptoms of UTI, bodyaches, lower extremity weakness, rigors; very similar to symptoms shehas had before with urinary tract infections. She did not complaining of any shortness of breath or chest discomfort, she was complaining of lower abdominal discomfort as well. In [place] ER, her initial high-sensitivity troponins came back elevated at 100, serum creatinine 1.8, ECG consistent with controlled atrial fibrillation. There were initial attempts to transfer herto [facility] with her primary clasp machine operator Dr. Randolph. They were unable to accept her immediately, there was some concern in the ER that she could not be admitted to [place] (? Unknown reason), therefore [facility] hospitalist was contacted and accepted [...] patient remains on appropriate heart failure therapies andrate control therapy for A-fib Impression/recommendations: Probable type II non-ST elevation IL secondary to multiple comorbidities including obesity, chronic [...] imaging; this canbe completed with her primary clasp machine operator Review of Systems Review of Systems [...] stent March 2018- 3 stents placed at [facility] History of open heart surgery x4 [...] B-Natriuretic Peptide 507.0 H (5-100) pg/mL Lipids 04/03/23 Range/Units 05:17 Triglycerides 160 H (0-149) mg/dL Cholesterol 162 (140-200) mg/dL HDL Cholesterol 25 L (35-85) mg/dL Cholesterol/HDL Ratio 6.5 (<5.0) CBC 06/22/22 Range/Units 05:17 RBC 4.53 (3.60-5.00) X10E6/uL Hgb 13.9 (11.8-15.4) g/dL Hct 42.1 (34.0-46.4) % Plt Count 135 L (150-450) x10E3/uL Neut # (Auto) 8.3 H (1.8-7.7) x10E3/uL Lymph # (Auto) 1.4 (1.00-4.8) x10E3/uL [place] # (Auto) 0.9 H (0.0-0.8) x10E3/uL Eos [...] signed by Sharron Casey DO> 06/22/22 1249 [facility] Work Phone: 1(356) [phone] History and physical note Author Toi Johnson [facility] June 22, 2022 7:15amNote Date/TimeApril 2022 4:22[place] [address] Hospitalist H&P Signed Patient: Mohan Espinoza MR#: [id number] : 1935 Acct:[id number] Age/Sex: 86 / F Adm Date: 3 Loc: 4 Room: [address] [place] [address] Type: ADM IN Attending Dr: Toi Johnson MD Copies to: MD Marcela Garvey DO, RES Shaikh Marion MD~ HPI DATE OF EXAMINATION: 06/22/22 CHIEF COMPLAINT: NSTEMI HISTORY OF PRESENT ILLNESS: Patient is an 86-year-old female with a past medical history of CKD, PE, A-fib on anticoagulation, hypertension, hyperlipidemia, diabetes mellitus type 2 who presented to outside hospital because shefelt like she had a UTI. Said that [...] stent March 2018- 3 stents placed at [facility] History of open heart surgery x4 [...] encounter. I reviewed her history and performed keyelements of exam and formulated the plan of care and confirmed the resident's note above. Patient transferred here to [facility] due to elevated troponin and [...] function. Documented By: Toi Johnson MD 3 1282 Signed By: <Electronically signed by Toi Johnson MD> 06/22/22 0715 <Electronically signed by DO FLAQUITA Cano> 06/22/22 0614 [facility] Work Phone: Evaluation note* Diagnosis Onset Date Resolution Status Atrial fibrillation acuteCAD (coronary artery disease)acuteChronic anticoagulationacuteCKD (chronic kidney disease), stage IIIacuteDiabetes mellitusacuteDyspneaacuteElevated troponinacuteFactor V LeidenacuteH/O pulmonary artery thrombosisacuteHistory of heart artery stentacuteHistory of open heart surgeryacuteHTN (hypertension)acute [facility] Work Phone: Evaluation note* Diagnosis Onset Date Resolution Status NSTEMI (non-ST elevated myocardial infar ction) acuteType 2 IL (myocardial infarction)acute [facility] Work Phone: Evaluation note* Diagnosis Unspecified atrial fibrillation (CMS/HCC) documented in this encounter [facility] HealthcareEvaluation note* Diagnosis Primary hypertension (CMS/HCC)- Primary Unspecified essential hypertension Hypothyroidism, unspecified type (CMS/HCC) Type 2 diabetes mellitus with stage 3a chronic kidney disease, without long-term current use of insulin (HCC) (CMS/HCC) Longstanding persistent atrial fibrillation (CMS/HCC) Coronary artery disease involving crow coronary artery of crow heart without angina pectoris (CMS/HCC) Essential hypertension (CMS/HCC) Unspecified essential hypertension Stage 3a chronic kidney disease (HCC) (CMS/HCC) Acquired hypothyroidism (CMS/HCC) Unspecified hypothyroidism Chronic lymphocytic leukemia (CMS/HCC) Chronic lymphoid leukemia, without mention of having achieved remission Medicare annual wellness visit, subsequent Longstanding persistent atrial fibrillation (CMS/HCC)- Primary documented in this encounter [facility] HealthcareEvaluation note* Diagnosis Primary hypertension (CMS/HCC)- Primary Unspecified essential hypertension Hypothyroidism, unspecified type (CMS/HCC) Type 2 diabetes mellitus with stage 3a chronic kidney disease, without long-term current use of insulin (HCC) (CMS/HCC) Longstanding persistent atrial fibrillation (CMS/HCC) Coronary artery disease involving crow coronary artery of crow heart without angina pectoris (CMS/HCC) Essential hypertension [...] inoculation against influenza documented in this encounter [facility]Evaluation note* Diagnosis Primary hypertension (CMS/HCC)- Primary Unspecified essential hypertension Hypothyroidism, unspecified type (CMS/HCC) Type 2 diabetes mellitus with stage 3a chronic kidney disease, without long-term current use of insulin (HCC) (CMS/HCC) Longstanding persistent atrial fibrillation (CMS/HCC) Coronary artery disease involving crow coronary artery of crow heart without angina pectoris (CMS/HCC) Essential hypertension [...] without complications (CMS/HCC) documented in this encounter [facility] HealthcareEvaluation note* Diagnosis Primary hypertension (CMS/HCC)- Primary Unspecified essential hypertension Hypothyroidism, unspecified type (CMS/HCC) Type 2 diabetes mellitus with stage 3a chronic kidney disease, without long-term current use of insulin (HCC) (CMS/HCC) Longstanding persistent atrial fibrillation (CMS/HCC) Coronary artery disease involving crow coronary artery of crow heart without angina pectoris (CMS/HCC) Essential hypertension [...] kidney disease (CMS/HCC) documented in this encounter [facility] HealthcareEvaluation note* Diagnosis Primary hypertension (CMS/HCC)- Primary Unspecified essential hypertension Hypothyroidism, unspecified type (CMS/HCC) Type 2 diabetes mellitus with stage 3a chronic kidney disease, without long-term current use of insulin (HCC) (CMS/HCC) Longstanding persistent atrial fibrillation (CMS/HCC) Coronary artery disease involving crow coronary artery of crow heart without angina pectoris (CMS/HCC) Essential hypertension [...] atrial fibrillation (CMS/HCC) documented in this encounter [facility] HealthcareEvaluation note* Diagnosis Primary hypertension (CMS/HCC)- Primary Unspecified essential hypertension Hypothyroidism, unspecified type (CMS/HCC) Type 2 diabetes mellitus with stage 3a chronic kidney disease, without long-term current use of insulin (HCC) (CMS/HCC) Longstanding persistent atrial fibrillation (CMS/HCC) Coronary artery disease involving crow coronary artery of crow heart without angina pectoris (CMS/HCC) Essential hypertension (CMS/HCC) Unspecified essential hypertension Stage 3a chronic kidney disease (HCC) (CMS/HCC) Acquired hypothyroidism (CMS/HCC) Unspecified hypothyroidism Chronic lymphocytic leukemia ([facility]/HCC) Chronic lymphoid leukemia, without mention of [...] Primary Unspecified essential hypertension Hypothyroidism, unspecified type ([facility]/HCC) Type 2 diabetes mellitus with stage 3a chronic kidney disease, without long-term current use of insulin (HCC) (CMS/HCC) Longstanding persistent atrial fibrillation (CMS/HCC) Coronary artery disease involving crow coronary artery of crow heart without angina pectoris (CMS/HCC) Essential hypertension [...] hypertension (CMS/HCC) Unspecified essential hypertension Acquired hypothyroidism ([facility]/HCC) Unspecified hypothyroidism Need for influenza vaccination Need for prophylactic vaccination and inoculation against influenza 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/HCC)- Primary Type 2 diabetes mellitus with diabetic cataract ([facility]) Type II or unspecified type diabetes mellitus with ophthalmic manifestations, not stated as uncontrolled Chronic diastolic (congestive) heart failure ([facility]/HCC) Chronic kidney disease, stage 3b (HCC) ([facility]/HCC) Type 2 diabetes mellitus with diabetic polyneuropathy ([facility]/HCC) 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 elsewhere ([facility]) Chronic lymphocytic leukemia of B-cell type not having achieved remission ([facility]/HCC) Hairy cell leukemia, in remission ([facility]/HCC) Unspecified atrial fibrillation ([facility]/HCC) Morbid (severe) obesity due to excess calories ([facility]) Body mass index (BMI) 40.0-44.9, adult ([facility]/HCC) Cardiomyopathy, ischemic ([facility]/HCC) Other specified forms of chronic ischemic heart disease Coronary artery disease involving crow coronary artery of crow heart without angina pectoris (CMS/HCC) Essential hypertension ([facility]/HCC) Unspecified essential hypertension Acquired hypothyroidism ([facility]/HCC) Unspecified hypothyroidism Factor V Leiden mutation ([facility]/HCC) Primary hypercoagulable state Statin intolerance Hyperuricemia without signs of inflammatory arthritis and tophaceous disease documented in this encounter [facility] HealthcareEvaluation note* Diagnosis Primary hypertension (CMS/HCC)- Primary Unspecified essential hypertension Hypothyroidism, unspecified type ([facility]/HCC) Type 2 diabetes mellitus with stage 3a chronic kidney disease, without long-term current use of insulin (HCC) (CMS/HCC) Longstanding persistent atrial fibrillation (CMS/HCC) Coronary artery disease involving crow coronary artery of crow heart without angina pectoris (CMS/HCC) Essential hypertension [...] failure Chronic kidney disease, stage 3b (HCC) ([facility]) Type 2 diabetes mellitus with diabetic polyneuropathy ([facility]/HCC) 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 elsewhere ([facility]/HCC) Chronic lymphocytic leukemia of B-cell type not having achieved remission ([facility]/HCC) Hairy cell leukemia, in remission ([facility]/HCC) Unspecified atrial fibrillation ([facility]/HCC) Morbid (severe) obesity due to excess calories ([facility]/HCC) Body mass index (BMI) 40.0-44.9, adult ([facility]/HCC) Cardiomyopathy, ischemic ([facility]/HCC) Other specified forms of chronic ischemic heart disease Coronary artery disease involving crow coronary artery of crow heart without angina pectoris (CMS/HCC) Essential hypertension ([facility]/HCC) Unspecified essential hypertension Acquired hypothyroidism (CMS/HCC) Unspecified hypothyroidism Factor V Leiden mutation ([facility]/HCC) Primary hypercoagulable state Statin intolerance Hyperuricemia without signs of inflammatory arthritis and tophaceous disease Unspecified atrial fibrillation ([facility]/HCC) documented in this encounter [facility] HealthcareEvaluation noteNo assessment information availableBethesda [facility] Work Phone: Evaluation note* Diagnosis Primary hypertension ([facility]/HCC)- Primary Unspecified essential hypertension Hypothyroidism, unspecified type ([facility]/HCC) Type 2 diabetes mellitus with stage 3a chronic kidney disease, without long-term current use of insulin (HCC) ([facility]/HCC) Longstanding persistent atrial fibrillation ([facility]/HCC) Coronary artery disease involving crow coronary artery of crow heart without angina pectoris ([facility]/HCC) Essential hypertension ([facility]/HCC) Unspecified essential hypertension Stage 3a chronic kidney disease (HCC) ([facility]/HCC) Acquired hypothyroidism ([facility]/HCC) Unspecified hypothyroidism Chronic lymphocytic leukemia ([facility]/HCC) Chronic lymphoid leukemia, without mention of having achieved remission Medicare annual wellness visit, subsequent Longstanding persistent atrial fibrillation (CMS/HCC)- Primary Type 2 diabetes mellitus with stage 3a chronic kidney disease, without long-term current use of insulin (HCC) ([facility]/HCC)- Primary Essential hypertension ([facility]/HCC) Unspecified essential hypertension Acquired hypothyroidism ([facility]/HCC) Unspecified hypothyroidism Need for influenza vaccination Need for prophylactic vaccination and inoculation against influenza Type 2 diabetes mellitus with diabetic chronic kidney disease ([facility]/HCC)- Primary Type 2 diabetes mellitus with diabetic cataract ([facility]) Type II or unspecified type diabetes mellitus with ophthalmic manifestations, not stated as uncontrolled Chronic diastolic (congestive) heart failure Chronic kidney disease, stage 3b (HCC) ([facility]) Type 2 diabetes mellitus with diabetic polyneuropathy ([facility]) 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 elsewhere ([facility]) Chronic lymphocytic leukemia of B-cell type not having achieved remission ([facility]) Hairy cell leukemia, in remission ([facility]) Unspecified atrial fibrillation ([facility]) Morbid (severe) obesity due to excess calories ([facility]) Body mass index (BMI) 40.0-44.9, adult ([facility]) Cardiomyopathy, ischemic ([facility]) Other specified forms of chronic ischemic heart disease Coronary artery disease involving crow coronary artery of crow heart without angina pectoris ([facility]/HCC) Essential hypertension ([facility]/HCC) Unspecified essential hypertension Acquired hypothyroidism ([facility]/HCC) Unspecified hypothyroidism Factor V Leiden mutation ([facility]) Primary hypercoagulable state Statin intolerance Hyperuricemia without signs of inflammatory arthritis and tophaceous disease Medicare annual wellness visit, subsequent- Primary Type 2 diabetes mellitus with stage 3b chronic kidney disease, without long-term current use of insulin (HCC) ([facility]) Morbid (severe) obesity due to excess calories ([facility]) Acquired hypothyroidism ([facility]/HCC) Unspecified hypothyroidism Essential hypertension ([facility]/HCC) Unspecified essential hypertension Chronic diastolic (congestive) heart failure Coronary artery disease involving crow coronary artery of crow heart without angina pectoris ([facility]) Type 2 diabetes mellitus with diabetic polyneuropathy, without long-term current use of insulin ([facility]) Hypomagnesemia Disorders of magnesium metabolism documented in this encounter [facility] HealthcareEvaluation note* Diagnosis Primary hypertension- Primary Unspecified essential hypertension Hypothyroidism, unspecified type Type 2 diabetes mellitus with stage 3a chronic kidney disease, without long-term current use of insulin (HCC) Longstanding persistent atrial fibrillation (HCC) Coronary artery disease involving crow coronary artery of crow heart without angina pectoris Essential hypertension Unspecified essential hypertension Stage 3a chronic kidney disease ([facility]-HCC) Acquired hypothyroidism Unspecified hypothyroidism Chronic lymphocytic [...] Type 2 diabetes mellitus with diabetic cataract ([facility]) Type II or unspecified type diabetes mellitus with ophthalmic manifestations, not stated as uncontrolled Chronic diastolic (congestive) heart failure (HCC) Chronic kidney disease, stage 3b ([facility]) Type 2 diabetes mellitus with diabetic polyneuropathy (HCC) 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 elsewhere ([facility]) Chronic lymphocytic leukemia of B-cell type not having achieved remission (HCC) Hairy cell leukemia, in remission (HCC) Unspecified atrial fibrillation (HCC) Morbid (severe) obesity due to excess calories ([facility]) Body mass index (BMI) 40.0-44.9, adult ([facility]) Cardiomyopathy, ischemic Other specified forms of chronic ischemic heart disease Coronary artery disease involving crow coronary artery of crow heart without angina pectoris Essential hypertension Unspecified essential hypertension Acquired hypothyroidism Unspecified hypothyroidism Factor V Leiden mutation ([facility]) Primary hypercoagulable state Statin intolerance Hyperuricemia without signs of inflammatory arthritis and tophaceous disease Medicare annual wellness visit, subsequent- Primary Type 2 diabetes mellitus with stage 3b chronic kidney disease, without long-term current use of insulin (HCC) Morbid (severe) obesity due to excess calories ([facility]) Acquired hypothyroidism Unspecified hypothyroidism Essential hypertension Unspecified essential hypertension Chronic diastolic (congestive) heart failure (HCC) Coronary artery disease involving crow coronary artery of crow heart without angina pectoris Type 2 diabetes mellitus with diabetic polyneuropathy, without long-term current use of insulin (HCC) Hypomagnesemia Disorders of magnesium metabolism Hypomagnesemia- Primary Disorders of magnesium metabolism documented in this encounter [facility] HealthcareEvaluation note* Diagnosis Primary hypertension- Primary Unspecified essential hypertension Hypothyroidism, unspecified type Type 2 diabetes mellitus with stage 3a chronic kidney disease, without long-term current use of insulin (HCC) Longstanding persistent atrial fibrillation (HCC) Coronary artery disease involving crow coronary artery of crow heart without angina pectoris Essential hypertension Unspecified essential hypertension Stage 3a chronic kidney disease ([facility]) Acquired hypothyroidism Unspecified hypothyroidism Chronic lymphocytic leukemia [...] Type 2 diabetes mellitus with diabetic cataract ([facility]) Type II or unspecified type diabetes mellitus with ophthalmic manifestations, not stated as uncontrolled Chronic diastolic (congestive) heart failure (HCC) Chronic kidney disease, stage 3b ([facility]) Type 2 diabetes mellitus with diabetic polyneuropathy (HCC) 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 elsewhere ([facility]) Chronic lymphocytic leukemia of B-cell type not having achieved remission (HCC) Hairy cell leukemia, in remission ([facility]) Unspecified atrial fibrillation (HCC) Morbid (severe) obesity due to excess calories ([facility]) Body mass index (BMI) 40.0-44.9, adult ([facility]) Cardiomyopathy, ischemic Other specified forms of chronic ischemic heart disease Coronary artery disease involving crow coronary artery of crow heart without angina pectoris Essential hypertension Unspecified essential hypertension Acquired hypothyroidism Unspecified hypothyroidism Factor V Leiden mutation ([facility]) Primary hypercoagulable state Statin intolerance Hyperuricemia without signs of inflammatory arthritis and tophaceous disease Medicare annual wellness visit, subsequent- Primary Type 2 diabetes mellitus with stage 3b chronic kidney disease, without long-term current use of insulin ([facility]) Morbid (severe) obesity due to excess calories ([facility]) Acquired hypothyroidism Unspecified hypothyroidism Essential hypertension Unspecified essential hypertension Chronic diastolic (congestive) heart failure (HCC) Coronary artery disease involving crow coronary artery of crow heart without angina pectoris Type 2 diabetes mellitus with diabetic polyneuropathy, without long-term current use of insulin (HCC) Hypomagnesemia Disorders of magnesium metabolism Hypothyroidism, unspecified Type 2 diabetes mellitus with diabetic chronic kidney disease (HCC) Hyperuricemia without signs of inflammatory arthritis and tophaceous disease Type 2 diabetes mellitus without complications (HCC) documented in this encounter [facility] HealthcareEvaluation note* Diagnosis ASHD (arteriosclerotic heart disease) Coronary atherosclerosis of unspecified type of vessel, crow or graft History of coronary artery bypass [...] heart failure type documented in this encounter [facility] Work Phone: Evaluation note* Diagnosis Primary hypertension- Primary Unspecified essential hypertension Hypothyroidism, unspecified type Type 2 diabetes mellitus with stage 3a chronic kidney disease, without long-term current use of insulin (HCC) Longstanding persistent atrial fibrillation (HCC) Coronary artery disease involving crow coronary artery of crow heart without angina pectoris Essential hypertension Unspecified [...] remission (HCC) Hairy cell leukemia, in remission ([facility]) Unspecified atrial fibrillation (HCC) Morbid (severe) obesity due to excess calories ([facility]) Body mass index (BMI) 40.0-44.9, adult ([facility]) Cardiomyopathy, ischemic Other specified forms of chronic ischemic heart disease Coronary artery disease involving crow coronary artery of crow heart without angina pectoris Essential hypertension Unspecified essential hypertension Acquired hypothyroidism Unspecified hypothyroidism Factor V Leiden mutation ([facility]) Primary hypercoagulable state Statin intolerance Hyperuricemia without signs of inflammatory arthritis and tophaceous disease Medicare annual wellness visit, subsequent- Primary Type 2 diabetes mellitus with stage 3b chronic kidney disease, without long-term current use of insulin ([facility]) Morbid (severe) obesity due to excess calories ([facility]) Acquired hypothyroidism Unspecified hypothyroidism Essential hypertension Unspecified essential hypertension Chronic diastolic (congestive) heart failure (HCC) Coronary artery disease involving crow coronary artery of crow heart without angina pectoris Type 2 diabetes mellitus with diabetic polyneuropathy, without long-term current use of insulin ([facility]) Hypomagnesemia Disorders of magnesium metabolism Essential hypertension- Primary Unspecified essential hypertension Type 2 diabetes mellitus with diabetic polyneuropathy, without long-term current use of insulin (HCC) Longstanding persistent atrial fibrillation (HCC) Pulmonary embolism, unspecified chronicity, unspecified pulmonary embolism type, unspecified whether acute cor pulmonale present ([facility]) Chronic diastolic (congestive) heart failure (HCC) Chronic kidney disease, stage 3b ([facility]) Type 2 diabetes mellitus with stage 3b chronic kidney disease, without long-term current use of insulin ([facility]) Morbid (severe) obesity due to excess calories ([facility]) Acquired hypothyroidism Unspecified hypothyroidism Diarrhea, unspecified type documented in this encounter [facility] HealthcareEvaluation note* Diagnosis Primary hypertension- Primary Unspecified essential hypertension Hypothyroidism, unspecified type Type 2 diabetes mellitus with stage 3a chronic kidney disease, without long-term current use of insulin (HCC) Longstanding persistent atrial fibrillation (HCC) Coronary artery disease involving crow coronary artery of crow heart without angina pectoris Essential hypertension Unspecified essential hypertension Stage 3a chronic kidney disease ([facility]) Acquired hypothyroidism Unspecified hypothyroidism Chronic lymphocytic leukemia [...] failure (HCC) Chronic kidney disease, stage 3b ([facility]) 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) Hairy cell leukemia, in remission ([facility]) Unspecified atrial fibrillation (HCC) Morbid (severe) obesity due to excess calories ([facility]) Body mass index (BMI) 40.0-44.9, adult ([facility]) Cardiomyopathy, ischemic Other specified forms of chronic ischemic heart disease Coronary artery disease involving crow coronary artery of crow heart without angina pectoris Essential hypertension Unspecified essential hypertension Acquired hypothyroidism Unspecified hypothyroidism Factor V Leiden mutation ([facility]) Primary hypercoagulable state Statin intolerance Hyperuricemia without signs of inflammatory arthritis and tophaceous disease Medicare annual wellness visit, subsequent- Primary Type 2 diabetes mellitus with stage 3b chronic kidney disease, without long-term current use of insulin (HCC) Morbid (severe) obesity due to excess calories ([facility]) Acquired hypothyroidism Unspecified hypothyroidism Essential hypertension Unspecified essential hypertension Chronic diastolic (congestive) heart failure (HCC) Coronary artery disease involving crow coronary artery of crow heart without angina pectoris Type 2 diabetes mellitus with diabetic polyneuropathy, without long-term current use of insulin (HCC) Hypomagnesemia Disorders of magnesium metabolism Essential hypertension- Primary Unspecified essential hypertension Type 2 diabetes mellitus with diabetic polyneuropathy, without long-term current use of insulin (HCC) Longstanding persistent atrial fibrillation (HCC) Pulmonary embolism, unspecified chronicity, unspecified pulmonary embolism type, unspecified whether acute cor pulmonale present (HCC) Chronic diastolic (congestive) heart failure (HCC) Chronic kidney disease, stage 3b ([facility]) Type 2 diabetes mellitus with stage 3b chronic kidney disease, without long-term current use of insulin (HCC) Morbid (severe) obesity due to excess calories ([facility]) Acquired hypothyroidism Unspecified hypothyroidism Diarrhea, unspecified type Hypomagnesemia Disorders of magnesium metabolism Type 2 diabetes mellitus without complications ([facility]) documented in this encounter [facility] HealthcareEvaluation note* Diagnosis Onset Date Resolution Status Admit Date Acquired hypothyroidism acuteOctober 2024 8:55amAtrial fibrillation, controlledacuteOctliving[facility] 2024 8:55amChronic diastolic (congestive) heart failureacuteOctlivingston [facility] 2024 8:55amHyperlipidemiaacuteOctliving[facility] 2024 8:55amHypertensionacuteOctliving[facility] 2024 8:55amMorbid (severe) obesity due to excess caloriesacuteOctlivingston hospital [facility] 2024 8:55amStatin intoleranceacuteOctliving[facility] 2024 8:55amType 2 diabetes mellitus with diabetic chronic kidney diseaseacuteOctlivingston hospital and [facility] 2024 8:55am [facility] Work Phone: Reason for referral (narrative)No reason for referral information availableTuscarawas Hospital Work Phone: Summary Purpose Family History Relationship Condition Age at Onset Recorded Date/T bernardo Not Specified Hypertension Unknown fatherDiabetes mellitusUnknownNot SpecifiedCerebrovascular accident (CVA)Unknown Unknown Family Member Name Dates Details Family history of cerebrovas cular accident (CVA): Mother, Brother(V17.1, Z82.3) Status:ActiveFamily history of diabetes mellitus: Father(V18.0, Z83.3) Status:ActiveAcute coronary syndrome: Brother Status:ActiveHeart problem: Brother Status:ActiveCOVID: Brother Status:ActiveFamily history of lung disease: Sister(V19.8, Z83.6) Status:Active Unknown Family Member Name Dates Details Family history of cerebrovas cular accident (CVA): Mother, Brother(V17.1, Z82.3) Status:ActiveFamily history of diabetes mellitus: Father(V18.0, Z83.3) Status:ActiveAcute coronary syndrome: Brother Status:ActiveHeart problem: Brother Status:ActiveCOVID: Brother Status:ActiveFamily history of lung disease: Sister(V19.8, Z83.6) Status:Active Relationship Condition Age at Onset Recorded Date/T bernardo Not Specified Hypertension Unknown fatherDiabetes mellitusUnknownmotherCerebrovascular accident (CVA)Unknown Advance Directives Advance Directive Response Recorded Date/ Time Advance Directives No April 13, 2019 7:25pm Hospital Course Note MR#: [id number] [facility] Pt. Name: Mohan Espinoza Admitted: 04/06/2018 Discharged: [...] the patient was seen in [facility] after she was feeling weak for 1 day. In [facility], she was found to have a [...] (hypertension) Chief Complaint non stemi Acute kidney injuryReason for VisitAtrial fibrillation CAD (coronary artery disease) Chronic anticoagulation CKD (chronic kidney disease), stage III Diabetes mellitus Dyspnea Elevated troponin Factor V Leiden H/O pulmonary artery thrombosis History of heart artery stent History of open heart surgery HTN (hypertension) Chief Complaint Nstemi Reason for Visit NSTEMI (non-ST eleva ruma myocardial infarction) Type 2 IL (myocardial infarction) Chief Complaint Admit Date Unknown July 06, 2024 1:5 2pm Chief Complaint Admit Date 2M January 01, 2025 8 :55am Reason for Visit Admit Date Acquired hypothyroidism January 01 8:55am Atrial fibrillation, controlled January 01, 2025 8:55am Chronic diastolic (congestive) heart tyler lure January 01, 2025 8:55am Hyperlipidemia January 01, 2025 8 :55am Hypertension January 01, 2025 8 :55am Morbid (severe) obesity due to excess ca lories January 01, 2025 8:55am Statin intolerance January 01, 2025 8 :55am Type 2 diabetes mellitus wit h diabetic chronic kidney disease January 01, 2025 8:55am Chief Complaint * [facility] [place] [place]. * 86-year-old female returns for [...] section and content) DATE CREATED AUTHOR 11/06/2017 [facility] DATE CREATED AUTHOR AUTHOR'S ORGANIZ ATION 04/04/2019 [facility] DATE CREATED AUTHOR AUTHOR'S ORGANIZ ATION 04/18/2020 [facility] DATE CREATED AUTHOR AUTHOR'S ORGANIZ ATION 06/24/2022 [facility] DATE CREATED AUTHOR AUTHOR'S ORGANIZ ATION 09/26/2022 [facility] DATE CREATED AUTHOR AUTHOR'S ORGANIZ ATION 10/01/2022 [facility] DATE CREATED AUTHOR AUTHOR'S ORGANIZ ATION 10/01/2022 [employer] DATE CREATED AUTHOR AUTHOR'S ORGANIZ ATION 10/20/2024 [facility] DATE CREATED AUTHOR AUTHOR'S ORGANIZ ATION 11/01/2024 [facility] EPIC DATE CREATED AUTHOR AUTHOR'S ORGANIZ ATION 12/27/2024 [facility] Care Teams (unrecognized sec tion and content) Team Status: Inactive Member Role Status Dates Shaikh Marion MD Attending Provider Active Team Status: Inactive Member Role Status Dates Shaikh Marion MD Primary Care Provider Active Toishelby Johnson MDAdmdat ProviderActiveRuJonatan Uriarte ProviderActive Team Status: Active Member Role Status Dates Shaikh Marion MD Primary Care Provider Active Team Status: Active Member Role Status Dates Emilie Meza NP-[place] Primary Care Provider Ac tive Team Status: Inactive Member Role Status Dates DO Neftali Ellis Provider Active Start: December 25, 2023 End: December 28, 2023Nelson Orourke DOAttnadya ProviderActiveStart: December 25, 2023 End: December 27selena Meza NP-CPrimary Care ProviderActive Start: December 25, 2023 End: December 28, 2023Team MemberRelationshipSpecialtyStart DateEnd Date Fabricio Edouard MD [address] [place] [phone] PCP - GeneralFamily Medicine10/20/23 Emilie Meza NP [address] [place] [address] Nurse PractitionerFamily Medicine10/20/23Team MemberRelationshipSpecialtyStart DateEnd Date Fabricio Edouard MD [address] [place] [phone] PCP - [facility]10/20/23 Emilie Meza NP [address] [place] [address] [facility]10/20/23Team MemberRelationshipSpecialtyStart DateEnd Date Fabricio Edouard MD [address] [place] [phone] PCP - [facility]10/20/23 Emilie Meza NP [address] [place] [address] [facility] Pract[facility]10/20/23Team MemberRelationshipSpecialtyStart DateEnd Date Fabricio Edouard MD [address] [place] [phone] PCP - [facility]10/20/23 Emilie Meza NP [address] [place] [address] Nurse Pract[facility]10/20/23Team MemberRelationshipSpecialtyStart DateEnd Date Fabricio Edouard MD [address] [place] [phone] PCP - [facility]10/20/23 Emilie Meza NP [address] [place] [address] Nurse Pract[facility]erWell[facility]10/20/23Team MemberRelationshipSpecialtyStart DateEnd Date Fabricio Edouard MD [address] [place] [address] PCP - [facility]10/20/23 Emilie Meza, YOAN [address] [place] [address] Nurse [facility]10/20/23Team MemberRelationshipSpecialtyStart DateEnd Date Fabricio Edouard MD [address] [place] [address] PCP - [facility]10/20/23 Emilie Meza, YOAN [address] [place] [address] Nurse PractitionerWell[facility]10/20/23Team MemberRelationshipSpecialtyStart DateEnd Date Fabricio Edouard MD [address] [place] [address] PCP - [facility]10/20/23 Emilie Meza NP [address] [place] [address] Nurse Pract[facility]er[facility]10/20/23Team MemberRelationshipSpecialtyStart DateEnd Date Fabricio Edouard MD [address] [place] [address] PCP - GeneralFamily Medicine10/20/23 Emilie Meza NP [address] [place] [address] Nurse Pract[facility]10/20/23Team MemberRelationshipSpecialtyStart DateEnd Date Fabricio Edouard MD [address] [place] [address] PCP - [facility]10/20/23 Emilie Meza NP [address] [place] [address] Nurse Practitioner[facility]10/20/23Team MemberRelationshipSpecialtyStart DateEnd Date Fabricio Edouard MD [address] [place] [address] PCP - [facility]10/20/23 Ирина Brown NP [address] [place] [address] Nurse Practitioner[facility]05/25/24Team MemberRelationshipSpecialtyStart DateEnd Date Fabricio Edouard MD [address] [place] [address] PCP - [facility]10/20/23 Ирина Brown NP [address] [place] [address] Nurse Practitioner[facility]05/25/24 Team Status: Inactive Member Role Status Dates Emilie Meza NP-C Primary Care Provider Ac tive Start: July 06, 2024 End: July 06, 2024Karyna London ProviderActiveStart: July 06, 2024 End: July 06, 2024Team MemberRelationshipSpecialtyStart DateEnd Date Fabricio Edouard MD [address] [place] [address] PCP - GeneralFamily Medicine10/20/23 Ирина Brown NP [address] [place] [address] [facility]05/25/24Team MemberRelationshipSpecialtyStart DateEnd Date Fabricio Edouard MD [address] [place] [address] PCP - GeneralFamily Medicine10/20/23 Ирина Brown NP [address] [place] [address] Nurse Pract[facility]erVan [facility]ally [facility]05/25/24Team MemberRelationshipSpecialtyStart DateEnd Date Fabricio Edouard MD [address] [place] [address] PCP - GeneralFamily Medicine10/20/23 Ирина Brown NP [address] [place] [address] [facility]05/25/24Team MemberRelationshipSpecialtyStart DateEnd Date Fabricio Edouard MD [address] [place] [address] PCP - [facility]10/20/23 Ирина Brown NP [address] [place] [address] [facility]05/25/24Team MemberRelationshipSpecialtyStart DateEnd Date Fabricio Edouard MD [address] [place] [address] PCP - [facility]10/20/23 Ирина Brown NP [address] [place] [address] Nurse Pract[facility]er[facility]05/25/24Team MemberRelationshipSpecialtyStart DateEnd Date Shaikh Schultz MD [address] [place] [address] [facility] - [facility]10/04/24Team MemberRelationshipSpecialtyStart Date End Date Fabricio Edouard MD [address] [place] [address] PCP - [facility]10/20/23 Ирина Brown NP [address] [place] [address] [facility]05/25/24Team MemberRelationshipSpecialtyStart DateEnd Date Fabricio Edouard MD [address] [place] [address] PCP - [facility]10/20/23 Ирина Brown NP [address] [place] [address] Nurse Pract[facility]er[facility]05/25/24Team MemberRelationshipSpecialtyStart DateEnd Date Fabricio Edouard MD [address] [place] [address] PCP - [facility]10/20/23 Ирина Brown NP [address] [place] [address] Nurse Pract[facility]er[facility]05/25/24Team MemberRelationshipSpecialtyStart DateEnd Date Fabricio Edouard MD [address] [place] [address] PCP - [facility]10/20/23 Ирина Brown NP [address] [place] [address] Nurse Pract[facility]er[facility]05/25/24 Team Status: Active Member Role Status Dates Ирина Brown NP-C Primary Care Provider Active Team Status: Inactive Member Role Status Dates CHRISTY Hammer Primary Care Provider Active Start: January 01, 2025 End: January 01, 2025Ирина Brown NP-CAttending ProviderActiveStart: January 01, 2025 End: January 01, 2025 Reason for Visit (unrecogniz ed section and content) ReasonOnset DateCommentsMed Zxiywj684ReasonCommentsHospital Follow-up ReasonCommentsHypertensionReasonOnset DateCommentsMed Uszjaj674Reason Onset DateCommentsMed Rbadkv6504/05/2024ReasonCommentsDiabetesReasonOnset Date CommentsMed Wtnqvb1007/10/2024ReasonCommentsMedicare Annual Wellness Visit Initial ReasonOnset DateCommentsMed Sarfsi7310/11/2024ReasonCommentsAnnual Exam1 year follow up for ASHD (arteriosclerotic heart disease)SpecialtyDiagnoses / ProceduresReferred By ContactReferred To ContactCardiology Diagnoses ASHD (arteriosclerotic heart disease) Procedures Follow Up In Cardiology Joseluis Casey, [address], [place] [address] Phone: tel: fax: Joseluis Casey, [address] [place] [address] [address], [place] [id number] Phone: tel: fax: Referral IDStatusReasonStart DateExpiration DateVisits RequestedVisits [id number]/30/20247/30/945444NavprnGruhodsiCds Refill Goals (unrecognized section and content) Goals may be documented in a n alternate sectionGoals may be documented in an alternate section FOR RECORDS PERTAINING TO PATIENTS [...] BE BASED ON THE PRIMARY CLINICAL RECORDS. [facility]. provides no warranty or guarantee of the accuracy or completeness of information in this document.
--- OUTSIDE RECORDS SUMMARY | 2025-02-09 17:39 | XMS_ITS | Clinical Summary ---
Author Organization [facility] Address [address] [place] [address] Phone Care Team Providers Care Container Washer Name Role Phone Shaikh JAMES Schultz Primary Care Provider [phone] Allergies Active AllergyReactionsCriticalityNoted DateCommentsAce InhibitorsOther 10/19/2023 hypotension Arb-Angiotensin Receptor HdbldnuxriTxvnf24/30/2024 hypotension Jjxhzoj-Ahr-Ydr Reductase LstdidrkgrAvhxnnw59/13/2024 Medications MedicationSigDispense QuantityRefillsLast FilledStart DateEnd DateStatus allopurinol (Zyloprim) 300 mg tablet Take 1 tablet (300 mg) by mouth once daily.Active furosemide (Lasix) 40 mg tablet Take 1 tablet (40 mg) by mouth once daily.Active glipiZIDE XL (Glucotrol XL) 10 mg 24 [...] the evening. Take with meals. Take with food.Active metoprolol succinate XL (Toprol-XL) 50 mg 24 hr tablet Indications:ASHD (arteriosclerotic heart disease),Atrial fibrillation, unspecified type (Multi),Congestive heart failure, unspecified HF chronicity, unspecified heart failure type (Multi)Take 3 tablets (150 mg) by mouth once daily. Do not crush or chew. 90 tablet 9:16 AM EDT511/5Active Active Problems ProblemNoted DateDiagnosed DateNever smoked diwccie2410/18/2024Statin intolerance 10/19/2023Other pulmonary embolism without acute cor ntkklpehr98/30/2024History of PTCA10/19/2023-fib06/02/2023SHD (arteriosclerotic heart disease)06/02/2023 Congestive heart bexvgyl5406/02/2023hronic renal qxfwwozygqduh74/13/2024iabetes 06/02/2023Factor V Bheawc8306/02/2023History of coronary artery bypass graft 06/02/2023History of non-ST elevation myocardial infarction (NSTEMI)06/02/2023 Cardiomyopathy, /13/2024 Immunizations ImmunizationAdministration DatesNext DueFlu vaccine, quadrivalent, no egg protein, age 6 month or greater (FLUCELVAX)01/25/2024Influenza, injectable, mdqhmvyubdvg49/08/2014Influenza, seasonal, /07/2013Influenza, trivalent, xisjuwkcmu35/12/2021,12/28/2019,01/18/2019,02/01/2018,01/07/2017 Pneumococcal polysaccharide vaccine, 23-valent, age 2 years and older (PNEUMOVAX 23)03/22/2002 Family History Medical HistoryRelationNameCommentscoronary syndromeBrothercovidBrothercva BrotherDiabetesFatherStrokeMotherLung diseaseSisterRelationNameStatusComments BrotherFatherMotherSister Social History Tobacco UseTypesPacks/DayYears UsedDateSmoking Tobacco: NeverSmokeless Tobacco: Never Tobacco Cessation:Counseling Given: Not Answered Alcohol UseStandard Drinks/WeekCommentsNever0 (1 standard drink = 0.6 oz pure alcohol)PHQ-2AnswerDate RecordedPatient Health Questionnaire-2 Cfigc22607/01/2022 CommentsUnknownSex and Gender InformationValueDate RecordedSex Assigned at BirthNot on fileLegal GbcJmyizc54/25/2022 10:52 AM ESTGender IdentityNot on fileSexual OrientationNot on file Last Filed Vital Signs Vital SignReadingTime TakenCommentsBlood Vekwwqbl800/8207 9:48 AM EDT Vqybc2558/30/2025 9:48 AM EDTTemperature--Respiratory Rate--Oxygen Saturation-- Inhaled Oxygen Concentration--Weight--Scfksg844.7 cm (5' 8 )10/18/2024 9:48 AM EDTBody Mass Index-- Plan of Treatment DateTypeDepartmentCare Team (Latest Contact Info)Ckkqazszksq24/03/2026 10:00 AM EDTOffice Visit [facility] [address] [facility] [address] [place] [address] Mackenzie Zhang, DEMAND PLANNING MANAGER-MOTORMAN/WOMAN [address] [facility] [address] [place] [address] Health MaintenanceDue DateLast DoneCommentsCreatinine Level1937Diabetes: Celiac Disease Btxchffrr60/29/1938Diabetes: Hemoglobin A1C1937Diabetes: Urine Protein Ldyicfxmp47/29/1938Lipid Panel1937Medicare Annual Wellness Visit (AWV)1937Potassium Level1937TSH Level1937Vitamin B-12 1937Diabetes: Retinopathy Aavzlhkct29/29/1948Zoster Vaccines (1 of 2) 1956DTaP/Tdap/Td Vaccines (1 - Tdap)07/19/1959Bone Density Scan2002 Pneumococcal Vaccine (2 of 2 - PCV)RSV High Risk: (Elderly (60+) or Population) (1 - 1-dose 75+ series)2012Influenza Vaccine (#1)/07/2023, 12/31/2020, 12/28/2019, Additional history exists COVID-19 Vaccine ( season)/04/2020, 05/21/2020, 04/23/20203362Riuytmnhjqxrnd12/05/202510/07/2023, 06/22/2022HIB VaccinesAged OutNo longer eligible based on patient's age to complete this topicHPV VaccinesAged OutNo longer eligible based on patient's age to complete this topicHepatitis A VaccinesAged OutNo longer eligible based on patient's age to complete this topic Hepatitis B VaccinesAged OutNo longer eligible based on patient's age to complete this topicIPV VaccinesAged OutNo longer eligible based on patient's age to complete this topicMeningococcal VaccineAged OutNo longer eligible based on patient's age to complete this topicRotavirus VaccinesAged OutNo longer eligible based on patient's age to complete this topic Procedures Procedure NamePriorityDate/TimeAssociated DiagnosisCommentsECHOCARDIOGRAM 12/25/2023 from Last 3 Months or Most Recently Relevant to Health Maintenance Results * Echocardiogram (12/25/2023) Narrative 12/25/2023 Ordered by an unspecified provider. Authorizing ProviderResult TypeResult StatusGeneric Provider ScanningCV ECHO PROCEDURESFinal Result from Last 3 Months or Most Recently Relevant to Health Maintenance Insurance * Guarantor: Zackery Espinoza TypeRelation to PatientDate of BirthPhone Billing AddressPersonal/QhvdpuCcow52/29/1936 [facility] [place] [address] Care Teams Team MemberRelationshipSpecialtyStart DateEnd Date Shaikh Schultz MD [address] [place] [address] PCP - GeneralInternal Medicine10/04/24
--- OUTSIDE RECORDS SUMMARY | 2025-02-09 17:39 | XMS_ITS | Clinical Summary ---
Author Organization [employer] Address [id number] [address] [place] [address] Care Team Providers Care Director Of Enterprise Strategy Name Role Phone Jose Ewing MD Primary Care Provider Unava ilable Allergies Active AllergyReactionsCriticalityNoted DateCommentsAlbuterolOther (See Comments)Kmbgnk8711/21/2017 pt states hurt my lungs Medications MedicationSigDispense QuantityRefillsLast FilledStart DateEnd DateStatus DIGOXIN ORAL Take 125 mcg by mouth daily.Active allopurinol (ZYLOPRIM) 100 mg tablet Take 100 mg by mouth daily.Active metoprolol tartrate (LOPRESSOR) 25 mg tablet Take 25 mg by mouth 2 (two) times a day.Active ramipril (ALTACE) 5 mg capsule Take 5 mg by mouth daily.Active probenecid (BENEMID) 500 mg tablet Take 500 mg by mouth daily.Active acetaminophen (TYLENOL ARTHRITIS PAIN) 650 mg 8 hr tablet Take 1,300 mg by mouth daily. PATIENT TAKES 2 EVERY AMActive ciprofloxacin HCl (CIPRO) 500 mg tablet Take 500 mg by mouth 2 (two) times a day. FOR 10 DAYS09/05/2016Active cholecalciferol, vitamin D3, (cholecalciferol) 1,000 units tablet Take 1,000 Units by mouth daily.Active spironolactone (ALDACTONE) 25 mg tablet Take 25 mg by mouth daily.Active aspirin 81 mg Take 81 mg by mouth daily.Active loratadine 10 mg capsule Take 10 mg by mouth daily.Active vitamin E 400 units capsule Take 400 Units by mouth daily.Active warfarin (COUMADIN) 5 mg tablet Take 5 mg by mouth daily. TAKE 5MG QD EXCEPT ON MONDAYS TAKE 7.5MG05/05/2018 Active levothyroxine (SYNTHROID, LEVOTHROID) 200 MCG tablet Take 200 mcg by mouth daily.Active metFORMIN (GLUCOPHAGE) 500 mg tablet Take 500 mg by mouth 2 (two) times a day with meals.09/25/2016Active glipiZIDE (GLUCOTROL) 5 mg tablet Take 5 mg by mouth 2 (two) times a day before meals.11/21/2017Active warfarin (COUMADIN) 5 mg tablet Take 7.5 mg by mouth daily. 7.5 ON WEDNESDAYS ONLY11/29/2017Active furosemide (LASIX) 20 mg tablet Take 20 mg by mouth 2 (two) times a day.Active clopidogrel (PLAVIX) 75 mg tablet Take 75 mg by mouth daily.Active Social History Tobacco UseTypesPacks/DayYears UsedDateSmoking Tobacco: Never AssessedChildcare AnswerDate RtbhstlcZavcxvsvuBpopuza73/06/2019EmploymentAnswerDate Recorded UzixobfvzoTnsltsk94/06/2019Purpose - LifeAnswerDate RecordedPurpose and direction in qyxkAgrokwz04/11/2021CommentsUnknownSex and Gender InformationValueDate RecordedSex Assigned at BirthNot on fileLegal SexFemale 10/25/2014 11:44 AM EDTGender IdentityNot on fileSexual OrientationNot on file Last Filed Vital Signs Vital SignReadingTime TakenCommentsBlood Tzozddxf337/6803 10:56 AM EST Qiqfb179105/25/2018 10:56 AM HGVHewofyhsnzy06.3 ??C (97.4 ??F)05/25/2018 10:56 AM ESTRespiratory Glif301505/25/2018 10:56 AM ESTOxygen Yzshassxbs92%05/07/2018 2:47 PM ESTInhaled Oxygen Concentration--Nmpffj674.2 kg (309 lb)05/07/2018 2:47 PM WNPLzkewd607.7 cm (5' 8 )09/07/2016 1:00 PM EDTBody Mass Index46.98009/07/2016 1:00 PM EDT Plan of Treatment Not on file Medical Devices Not on file Insurance Care Teams Team MemberRelationshipSpecialtyStart DateEnd Date Jose Ewing MD PCP - [facility]09/04/16
--- OUTSIDE RECORDS SUMMARY | 2025-02-09 17:39 | XMS_ITS | Clinical Summary ---
Author Organization [facility] Address [address] [place] [address] Care Team Providers Care Sales Enablement Lead Name Role Phone Jose Ewing Primary Care Provider Allergies Active AllergyReactionsCriticalityNoted ClvgGqqeqgzsOesatztzsPdiwbao66/15/2016 XimgnrncuqiamkMzktatq68/15/2016Atorvastatin XzwlspaUdvjceqy36/15/2016Ezetimibe Ignprcp7811/04/2015 Headaches Medications MedicationSigDispense QuantityRefillsLast FilledStart DateEnd DateStatus ramipril (ALTACE) 10 mg capsule Take 10 mg by mouth once daily.Active digoxin (LANOXIN) 250 mcg tablet Take 250 mcg by mouth once daily.Active metoprolol tartrate, short acting, (LOPRESSOR) 25 mg tablet Take 25 mg by mouth twice daily.Active probenecid 500 mg tablet Take 500 mg by mouth once daily.Active metFORMIN (GLUCOPHAGE) 500 mg tablet Take 500 mg by mouth twice daily with meals. Active warfarin (COUMADIN) 5 mg tablet Take 5 mg by mouth daily as directed. Dose may vary.Active levothyroxine (SYNTHROID) 175 mcg tablet Take 175 mcg by mouth daily before breakfast.Active allopurinol (ZYLOPRIM) 100 mg tablet 06/18/2016Active glipiZIDE XL (GLUCOTROL XL) 5 mg 24 hr tablet 08/19/2016Active clopidogrel (PLAVIX) 75 mg tablet 08/23/2018Active Active Problems ProblemNoted DateDiagnosed DateHairy cell leukemia, in lzfukjhzu00/15/2016 Social History Tobacco UseTypesPacks/DayYears UsedDateSmoking Tobacco: NeverSmokeless Tobacco: NeverAlcohol UseStandard Drinks/WeekCommentsNo0 (1 standard drink = 0.6 oz pure alcohol)Area Deprivation IndexAnswerDate RecordedNational Score (1-100), lower number is lower riskNot on file02/29/2020State Score (1-10), lower number is lower riskNot on file02/29/2020Data from: https://www.neighborhoodatlas.medicine.[facility]/. Last address used for calculationNot on file02/29/2020CommentsNoSex and Gender Information ValueDate RecordedSex Assigned at BirthNot on fileLegal BewQsboow03/09/2016 10:18 AM EDTGender IdentityNot on fileSexual OrientationNot on file Last Filed Vital Signs Vital SignReadingTime TakenCommentsBlood Gwdktwfy500/6606 2:21 PM EDT Fmjgy902509/08/2018 2:21 PM DWYWiwmrmjwnih31.5 ??C (97.7 ??F)09/08/2018 2:21 PM EDTRespiratory Yyha872409/08/2018 2:21 PM EDTOxygen Eqvoviysih99%09/08/2018 2:21 PM EDTInhaled Oxygen Concentration--Taonql809.2 kg (298 lb)09/10/2016 1:16 PM EDTper patient 08/20167738Ztukwb482.7 cm (5' 7.99 )09/09/2017 2:00 PM EDTBody Mass Index45.32009/10/2016 1:16 PM EDT Plan of Treatment Health MaintenanceDue DateLast DoneCommentsAnxiety Wbtwmeclq14/29/1956Depression Kwrnaraoa74/29/1956DTaP,Tdap,Td Vaccine (1 - Tdap)1956Pneumococcal Vaccine: 50+ (1 of 1 - PCV)07/19/1987Shingrix Vaccine (1 of 2)07/19/1987Bone Density Bjjfawsvr75/29/2003RSV Vaccine (1 - 1-dose 75+ series)2012Diabetes Xeawmyflq07, 11/11/2017Advance Directive Oxzwpzmate23/01/2025 Covid-19 Vaccine (1 - 2024- season)2024Influenza Vaccine (#1)2024 Procedures Procedure NamePriorityDate/TimeAssociated DiagnosisCommentsCOMPREHENSIVE METABOLIC HKVEYUjsvjlg64/20/2019 2:32 PM EDT Hairy cell leukemia, in remission (HCC) from Last 3 Months or Most Recently Relevant to Health Maintenance Results * (ABNORMAL) COMP METABOLIC PANEL (09/08/2018 2:32 PM EDT)ComponentValueRef RangeTest MethodAnalysis TimePerformed AtPathologist SignatureProtein, Total 6.96.3 - 8.0 g/dL09/09/2018 10:31 [facility] LaboratoriesAlbumin 3.8(L)3.9 - 4.9 g/dL09/09/2018 10:31 AM [facility] Calcium9.38.5 - 10.2 mg/dL09/09/2018 10:31 AM [facility] Bilirubin, Total0.20.2 - 1.3 mg/dL09/09/2018 10:31 AM [facility] LaboratoriesAlkaline Nngbdahvhim6648 - 123 U/L09/09/2018 10:31 AM [facility] CnlnpfyfmoryGYB79(H)13 - 35 U/L09/09/2018 10:31 AM [facility] XwysvldcwtbeBnrhkfn869(H)74 - 99 mg/dL09/09/2018 10:31 AM [facility] LaboratoriesComment: The [place] Diabetes Association (ADA) provides guidance [...] [place] Diabetes Association. Diabetes Care. 2016.39(Suppl 1). BUN42(H)7 - 21 mg/dL09/09/2018 10:31 AM [facility] Creatinine1.19(H)0.58 - 0.96 mg/dL09/09/2018 10:31 AM [facility] AexvssbojopnJfrovl295564 - 144 mmol/L09/09/2018 10:31 AM [facility] LaboratoriesPotassium5.13.7 - 5.1 mmol/L09/09/2018 10:31 AM [facility] MnwntaxuqwbnGpnqztch0832 - 105 mmol/L09/09/2018 10:31 AM [facility] QgjytgmirjqiPA67308 - 30 mmol/L09/09/2018 10:31 AM [facility] LaboratoriesAnion Udd415 - 18 mmol/L09/09/2018 10:31 [facility] CjazcqgjevvcPJF356 - 38 U/L09/09/2018 10:31 AM [facility] eGFR- Egakuxkf1726/21/2019 10:31 AM [facility] LaboratorieseGFR- All Other Races44.09/09/2018 10:31 AM [facility] LaboratoriesComment: eGFR (Estimated GFR) Units of measure: mL/min/1.73 [...] eGFR may not accurately reflect actual GFR. Specimen (Source)Anatomical Location / LateralityCollection Method / Volume Collection TimeReceived TimeBlood specimen (specimen)09/08/2018 2:32 PM EDT 09/08/2018 2:36 PM EDT Narrative Authorizing ProviderResult TypeResult StatusChar OG-CLABORATORYFinal ResultPerforming OrganizationAddressCity/State/ZIP CodePhone Number [facility] [address] [place] [address] [facility] [address] [place] [address] from Last 3 Months or Most Recently Relevant to Health Maintenance Insurance * Guarantor: Zackery Espinoza TypeRelation to PatientDate of BirthPhone Billing AddressPersonal/NkhabiAyaz71/29/1936 [facility] [place] [address] [facility] Address: [address] [place] [address] Care Teams Team MemberRelationshipSpecialtyStart DateEnd Jose Ewing [address] [place] [phone] PCP - GeneralFamily Medicine10/29/15
--- OUTSIDE RECORDS SUMMARY | 2025-02-09 17:39 | XMS_ITS | Clinical Summary ---
Author Organization [facility] [place] Address [address] [place] [address] Care Team Providers [employer] Web Application Developer Name Role Phone Shaikh JAMES Schultz Primary Care Provider [phone] Allergies Active AllergyReactionsCriticalityNoted StnvJgskbrzaDdwotcelf03/20/2022 Swsqnzbeniemyd28/20/2022 Medications MedicationSigDispense QuantityRefillsLast FilledStart DateEnd DateStatus aspirin 81 mg EC tablet Take 1 tablet every day by oral route.04/15/2020ctive furosemide (Lasix) 40 mg tablet Take 1 tablet by mouth in the morning.Active glipiZIDE (Glucotrol) 10 mg tablet Take 1 tablet by mouth in the morning and at bedtime.Active levothyroxine (Synthroid, Levoxyl) 200 mcg tablet Take 1 tablet by mouth in the morning.Active metFORMIN (Glucophage) 500 mg tablet Take 1 tablet by mouth in the morning and at bedtime.Active allopurinol (Zyloprim) 300 mg tablet Take 300 mg by mouth in the morning.Active pantoprazole (ProtoNix) 40 mg EC tablet Indications:Atherosclerosis of [place] coronary artery of [place] heart without angina pectoris,Paroxysmal atrial fibrillation (CMS/HCC)Take 1 tablet (40 mg) by mouth before breakfast. Do not crush, chew, or split. 90 tablet ctive rivaroxaban (Xarelto) 20 mg tablet Indications:Paroxysmal atrial fibrillation (CMS/HCC),History of pulmonary embolism,History of deep vein thrombosisTake 1 tablet (20 mg) by mouth with evening meal. Take with food. 90 tablet ctive metoprolol succinate XL (Toprol-XL) 100 mg 24 hr tablet Indications:Essential hypertensionTake 1 tablet (100 mg) by mouth in the morning. 90 tablet ctive losartan (Cozaar) 100 mg tablet Indications:Essential hypertensionTake 1 tablet (100 mg) by mouth in the morning. 90 tablet 01/15/2023ctive Active Problems ProblemNoted DateDiagnosed DateHistory of coronary artery bypass graft02/09/2022 History of pulmonary sosjstqy59/21/2022History of deep vein viwnhxueoj25/21/2022 Occlusion of coronary artery bypass graft12/09/2021ulmonary ipqkxwut19/20/2022 Angina cxzykeiw28/09/2012trial jsdaaaovyfyl30/09/2012Gastroesophageal reflux zwmszha7210/29/2011Type 1 diabetes aquxbnpd17/09/2012cquired hypothyroidism 12/15/2010Coronary luklxcomqrqrpum78/26/0252Rcjloxz13/26/2011Essential xhtuqchpglaz77/26/8112Lamh75/26/2011History of cardiovascular uqtpqmeu78/26/2011 Hxsfawveulgpvz78/26/2011Morbid gvkwfda2212/15/2010 Immunizations ImmunizationAdministration DatesNext DueInfluenza, injectable, quadrivalent 02/26/2014Influenza, seasonal, ayjjmetwrv56/07/2013Influenza, trivalent, viesbnsnfm32/12/2021,12/28/2019,01/18/2019,02/01/2018,01/07/2017Moderna 12 YR UP Vaccine BiValent Smbtnft5501/21/2021,05/21/2020,04/23/2020 Family History Medical HistoryRelationNameCommentsHeart attackFatherStrokeMotherHeart attack OtherStrokeOtherRelationNameStatusCommentsFatherMotherOther Social History Tobacco UseTypesPacks/DayYears UsedDateSmoking Tobacco: NeverSmokeless Tobacco: Never Tobacco Cessation:Counseling Given: Not Answered Alcohol UseStandard Drinks/WeekCommentsNot Currently0 (1 standard drink = 0.6 oz pure alcohol)UT Safety & EnvironmentAnswerDate RecordedFear of Current or Ex-PartnerNot on file05/13/2023Emotionally AbusedNot on file05/13/2023hysically AbusedNot on file05/13/2023Sexually AbusedNot on file05/13/2023hysically or Sexually AbusedNot on file05/13/2023CommentsUnknownSex and Gender InformationValueDate RecordedSex Assigned at BirthNot on fileLegal SexFemale 09/17/2021 10:07 PM EDTGender IdentityNot on fileSexual OrientationNot on file Last Filed Vital Signs Vital SignReadingTime TakenCommentsBlood Lnmdcewl518/8702/09/2022 4:21 PM EST Xiidb644902/09/2022 4:21 PM ESTTemperature--Respiratory Rate--Oxygen Uofdqdfxpg35% 02/09/2022 4:21 PM ESTInhaled Oxygen Concentration--Bkhpab910 kg (295 lb) 02/09/2022 4:21 PM WLDtxfxpjValvui666.7 cm (5' 8 )02/09/2022 4:21 PM ESTBody Mass Index44.8502/09/2022 4:21 PM EST Plan of Treatment Health MaintenanceDue DateLast DoneCommentsDiabetes: Hemoglobin A1C1935 Medicare Annual Wellness (AWV)1935Diabetes: Retinopathy Screening 07/19/1947Depression Gfmsulbce39/29/1950Diabetes: Urine Protein Screening 1956Zoster Vaccines (1 of 2)1956dult Elikuyr1707/19/1959Fall Risk Levufmfzf10/29/2003Pneumococcal Vaccine: 50+ Years (2 of 2 - PCV)03/22/2003 03/22/2002COVID-19 Vaccine (4 - season)/04/2020, 05/21/2020, 04/23/2020Influenza Vaccine (#1)/02/2021, 12/28/2019, 01/18/2019, Additional history existsHIB VaccinesAged OutNo longer eligible based on patient's age to complete this topicHPV VaccinesAged OutNo longer eligible based on patient's age to complete this topicIPV VaccinesAged OutNo longer eligible based on patient's age to complete this topicMeningococcal B VaccineAged OutNo longer eligible based on patient's age to complete this topicMeningococcal VaccineAged OutNo longer eligible based on patient's age to complete this topic Rotavirus VaccinesAged OutNo longer eligible based on patient's age to complete [place] [address] Care Teams Team MemberRelationshipSpecialtyStart DateEnd Date Shaikh Schultz MD PCP - GeneralFamily Medicine12/09/21
--- NOTE | 2025-02-09 17:57 | XR_ITS ---
The [address] [address] Patient Name: MOHAN INTERIANO MRN: [id number] date: 1935 Sex: F Assigned Patient Location: ER Current Patient Location: ER Accession/Order Number: [id number] Exam Date: 02/09/2025 18:14 Report Date: 02/09/2025 18:29 At the request of: MAGDI ROSE MD Procedure: XR chest 1V Plain film chest Single view HISTORY: Shortness of breath for one week COMPARISON: 07/06/2024 FINDINGS: SUPPORT DEVICES: None POSTSURGICAL CHANGES: None HEART: Cardiomegaly PULMONARY WILLARD: Hilar vascular prominence MEDIASTINUM: Unremarkable LUNGS AND PLEURA: Developing mild left basilar pleural-parenchymal changes. Mild right basilar groundglass interstitial prominence. BONY STRUCTURES: Intact ADDITIONAL FINDINGS None XR/XR chest 1V IMPRESSION: CHF findings. Impression dictated by: Alfonso Craven M.D. 02/09/2025 6:29 PM Dictation Location: [place] [address] Electronically authenticated by: [id number] Y Date: 02/09/2025 18:29
--- NOTE | 2025-02-09 17:57 | ECG_ITS ---
The [facility] Test Date: 2025-02-09 Pat Name: MOHAN INTERIANO Department: Room: - Gender: Female Restaurant Cook: : 1935 Requested By: [id number] Order Number: [id number] Reading MD: JANE WESLEY M.D. Measurements Intervals [place] Rate: 74 P: -39953 MO: -17736 QRS: 53 QRSD: 86 T: 54 QT: 398 QTc: 425 Interpretive Statements [address] DEPRESSION 9140 abnormal rhythm ECG Compared to ECG 07/06/2024 13:30:47 No significant changes Electronically Signed On 02-11-2025 20:14:02 EST by JANE WESLEY M.D.
--- NOTE | 2025-02-09 17:58 | ED.GENADUL1 ---
HPI HPI - General Adult General Chief complaint: Shortness of Breath/Dyspnea Stated complaint: SOB Time Seen by Provider: 02/09/25 17:42 Source: patient Mode of arrival: ambulance Limitations: no limitations History of Present Illness HPI narrative: 89-year-old female presented to the emergency department for shortness of breath that she has had for a week. She denies fever or cough or hemoptysis. She is on Xarelto because of remote PE. She does not complain of chest pain or back pain. She also noted a mass on her right breast in July, 6 months ago. She has not had that looked at. Related Data Home Medications ?Medication ?Instructions ?Recorded ?Confirmed allopurinol 300 mg tablet 300 mg PO DAILY 12/25/23 02/09/25 furosemide 40 mg tablet 40 mg PO .EVERY OTHER DAY 12/25/23 02/09/25 glipizide 10 mg tablet 10 mg PO BID 12/25/23 02/09/25 levothyroxine 200 mcg tablet 200 mcg PO DAILY 12/25/23 02/09/25 metformin 500 mg tablet 500 mg PO BIDWM 12/25/23 02/09/25 metoprolol succinate 50 mg 150 mg PO DAILY 12/25/23 02/09/25 tablet,extended release 24 hr rivaroxaban 15 mg tablet (Xarelto) 15 mg PO Q24H 12/25/23 02/09/25 magnesium oxide 400 mg (241.3 mg 250 mg PO DAILY 02/09/25 02/09/25 magnesium) tablet Allergies Allergy/AdvReac Type Severity Reaction Status Date / Time Iodinated Contrast Media Allergy Unknown Unknown Verified 02/09/25 17:32 Opioid HPI Opioid Management Most Recent Opioid Data: Last Pain Scale 5 Today, 18:09 Last Pain Intensity 8 07/08/24, 09:56 Last ORT Total Score 0 07/06/24, 17:06 Last ORT Risk Category Low Risk 07/06/24, 17:06 Review of Systems ROS Narrative A ten point review of systems is negative except as noted above. [facility] Medical History (Updated 02/09/25 @ 18:50 by Kasi Kendrick MD) Fall ?W19.XXXA - Unspecified fall, initial encounter (ICD-10) D-dimer, elevated ?R79.89 - Other specified abnormal findings of blood chemistry (ICD-10) Hypothyroid ?E03.9 - Hypothyroidism, unspecified (ICD-10) HTN (hypertension) ?I10 - Essential (primary) hypertension (ICD-10) CKD stage 3a, GFR 45-59 ml/min ?N18.31 - Chronic kidney disease, stage 3a (ICD-10) (HFpEF) heart failure with preserved ejection fraction ?I50.30 - Unspecified diastolic (congestive) heart failure (ICD-10) History of pulmonary embolism ?Z86.711 - Personal history of pulmonary embolism (ICD-10) Factor V Leiden mutation ?D68.51 - Activated protein C resistance (ICD-10) Hx of blood clots ?Z86.718 - Personal history of other venous thrombosis and embolism (ICD-10) Maysel filter in place ?Z95.828 - Presence of other vascular implants and grafts (ICD-10) History of IBS ?Z87.19 - Personal history of other diseases of the digestive system (ICD-10) Non Hodgkin's lymphoma ?C85.90 - Non-Hodgkin lymphoma, unspecified, unspecified site (ICD-10) Diabetes ?E11.9 - Type 2 diabetes mellitus without complications (ICD-10) Atrial fibrillation ?I48.91 - Unspecified atrial fibrillation (ICD-10) Surgical History (Updated 07/06/24 @ 19:01 by Gayathri Mcdonald) Hx of appendectomy ?Z90.49 - Acquired absence of other specified parts of digestive tract (ICD-10) Hx of CABG ?Z95.1 - Presence of aortocoronary bypass graft (ICD-10) Hx of heart artery stent ?Z95.5 - Presence of coronary angioplasty implant and graft (ICD-10) Social History Highest level of school completed/degree received: some college, no degree Little interest or pleasure in doing things: not at all Feeling down, depressed, or hopeless: not at all Exam Narrative Exam Narrative: Nurses note and vital signs reviewed General:The patient appears in no acute distress. She is mildly dyspneic. Skin:Warm, dry, no pallor noted.There is no rash noted. Head:Normocephalic, atraumatic Eye: Normal conjunctiva, no drainage Ears, Nose, Mouth, and Throat: oral mucosa is moist. Nares patent. Cardiovascular: Irregularly irregular, not tachycardic Respiratory: Breath sounds are equal bilaterally. No rales or rhonchi are noted. On her chest wall at the right breast is a firm dry fungating mass where her right nipple should be. No nipple is present. Just superior is an erythematous firm area. Back:non-tender GI: Soft and nontender Musculoskeletal: The patient has no evidence of calf tenderness, no pitting edema, symmetrical pulses noted bilaterally Neurological:A&O, normal speech Psychiatric:Cooperative Constitutional Vital Signs, click to edit/add: Last Vital Signs Temp 97.4 F L 02/09/25 17:32 Pulse 70 02/09/25 18:10 Resp 28 H 02/09/25 18:10 BP 213/104 H 02/09/25 17:36 Pulse Ox 94 L 02/09/25 18:09 O2 Del Method Room Air 02/09/25 18:09 Course Vital Signs Vital signs: Vital Signs Temperature 97.4 F L 02/09/25 17:32 Pulse Rate 87 02/09/25 17:32 Respiratory Rate 24 H 02/09/25 17:32 Blood Pressure 213/104 H 02/09/25 17:32 Pulse Oximetry 94 L 02/09/25 17:32 Oxygen Delivery Method Room Air 02/09/25 17:32 Temperature 97.4 F L 02/09/25 17:32 Pulse Rate 70 02/09/25 18:10 Respiratory Rate 28 H 02/09/25 18:10 Blood Pressure 213/104 H 02/09/25 17:36 Pulse Oximetry 94 L 02/09/25 18:09 Oxygen Delivery Method Room Air 02/09/25 18:09 Medical Decision Making MDM Narrative Medical decision making narrative: The patient presented with shortness of breath. Chest x-ray is consistent with CHF. Blood tests are pending and the patient is signed out to Dr. Burleson at change of shift. Differential Diagnosis Differential Diagnosis: CHF, pulmonary edema, pneumonia Imaging Data Chest x-ray: Radiologist's impression: ITS Impressions Chest X-Ray 02/09/25 17:57 IMPRESSION: CHF findings. Impression dictated by: Alfonso Craven M.D. 02/09/2025 6:29 PM Dictation Location: [place] [address] Electronically authenticated by: [id number] Y Date: 02/09/2025 18:29 ECG Data Attestation: I personally reviewed and interpreted this ECG as follows: (EKG on my interpretation shows atrial fibrillation.) Discharge Plan Discharge Patient Disposition: Still a Patient
[2025-02-09 19:00] LABS: Hematocrit 45.8 % (36.0-48.0); Hemoglobin 14.8 g/dL (12.0-16.0); Immature Granulocytes Abs Auto 0.02 10^3/uL (0.00-0.03); Immature Granulocytes Pct Auto 0.3 % (0.0-0.5); Lymphocytes Absolute Auto 1.8 10^3/uL (1.2-3.8); Mean Corpuscular HGB Conc 32.3 g/dL (29.9-35.2); Mean Corpuscular Hemoglobin 28.9 pg (26.7-34.0); Mean Corpuscular Volume 89.5 fL (81.0-99.0); Platelet Count 195 10^3/uL (150-450); Red Blood Count 5.12 10^6/uL (4.20-5.40); White Blood Count 7.1 10^3/uL (4.0-11.0)
[2025-02-09 19:27] LABS: Anion Gap 9.0; Blood Urea Nitrogen 27.0 mg/dL (7.0-18.0); Calcium 9.2 mg/dL (8.5-10.1); Carbon Dioxide 31.3 mmol/L (21.0-32.0); Chloride 104 mmol/L (98-107); Estimated GFR (African America 46 (>=60 mL/min/1.73m^2); Estimated GFR (Non-African Ame 38 (>=60 mL/min/1.73m^2); Glucose 116 mg/dL (74-106); Potassium 4.3 mmol/L (3.5-5.1); Sodium 140 mmol/L (136-145)
[2025-02-09] MEDS: FUROSEMIDE 40 MG/4 ML VIAL 60 MG IVP (20:25)
[2025-02-09] MEDS: HYDRALAZINE HCL 20 MG/ML VIAL 10 MG IVP (20:26)
--- OUTSIDE RECORDS SUMMARY | 2025-02-09 21:03 | XMS_ITS | CCD ---
Author Organization [facility] CliniSyme Care Team Providers Care Chief Clerk Shelter Name Role Phone Darrian Benton Unavailable Unavailable GLORIA, SARMED Admitting Unavailable GLORIA SARMED Attending Unavailable AMBROMARIO ANDERS Primary Care Unavailable ER, JOVANNI Referring Unavailable NE Procedure Practitioner Unavailab le UNKNOWN, PROVIDER Surgeon Unavailable MD Quan Schultz Primary Care Provider MD Toi Johnson Admit Provider MD Brissa Hoffman Attending Provider [phone] FAWWAD, GOOD H Admitting Unavailable FAWWAD, GOOD [...] Attending Julissa Mohan DO Ren Admit Provider [phone] DO Nelson Orourke Attending Provider [phone] YOAN Meza-C Emilie Wells Primary Care [facility] er Fabricio Edouard MD Primary Care Provider [phone] Derrick MARKETING COMPLIANCE MANAGER, Emilie Unavailable Derrick MARKETING COMPLIANCE MANAGER, Emilie Unavailable Kevin MARKETING COMPLIANCE MANAGER, Ирина Unavailable Derrick MARKETING COMPLIANCE MANAGER-C, Emilie Wells Primary Care [facility] er Alfonso Kendrick DO Attending Provider Shaikh Schultz MD Primary Care Provider [phone] JOSELUIS CASEY Attending Unavailable JOSELUIS CASEY Referring Unavailable SHAIKH SCHULTZ Primary Care Unavailable ИРИНА BROWN Attending Unavailable DOREHTAHИРИНА VILCHIS Attending Unavailable DORETHAHИРИНА VILCHIS Attending Unavailable EMILIE MEZA Attending UnavailEMILIE Sawant Attending UnavailEmilie Sawant Primary Care Unavaila ble Alfonso Kendrick Attending Unavailable Alfonso Kendrick Admitting Unavailable Kevin MARKETING COMPLIANCE MANAGER-CИрина Primary Care Provider [phone] Kevin MARKETING COMPLIANCE MANAGER-CИрина Attending Provider Allergies Allergy ClassificationReported Allergen(s)Allergy TypeDate of OnsetReaction(s) Facility (3 sources)AlbuterolDrug Dgmvshj27-52-5774Llycrnu ReactionThe [facility] (20 sources)AlbuterolDrug Ohbpvwq28-27-0196DV[facility] (20 sources)atorvastatinDrug Jjdlntc75-62-0746XocqdevaKQZI Healthcare (20 sources)ClarithromycinAllergy to ykpucclla94-63-1766xpscipdGJDF Healthcare (20 sources)ezetimibeDrug Osvgiqy69-86-9150Dqexmyy ReactionJohn J. Pershing [facility] Center (18 sources)Angiotensin-converting enzyme inhibitor agent; Translations: [YUSEF INHIBITORS]Drug Lnauxrjphbr49-45-8082BhmhxPZUM Healthcare Work Phone: (16 sources)OtherPropensity to adverse yptmbylsn20-23-6489WkajiZWFN Healthcare (2 sources)Angiotensin II receptor antagonist; Translations: [ARB-ANGIOTENSIN RECEPTOR ANTAGONIST]Propensity to adverse reactions to gjxl42-06-2755W[facility]wp [facility] Work Phone: (1 source)Angiotensin-converting enzyme inhibitor agentPropensity to adverse reactions to fvac17-36-0748AlrwtVmhmxbvndvWhite Hospital (2 sources)HMG-CoA reductase inhibitor; Translations: [KKWWIXO-PDK-YLT REDUCTASE INHIBITORS]Propensity to adverse bzlgmdyhb27-89-1455QthnnopRebeufldtuParma Community General Hospital (1 source)AlbuterolDrug Ubxocuh82-98-4253PmyynfidnChillicothe Hospital Repository Medications Current Medications MedicationDrug Class(es)DatesSig (Normalized)Sig (Original)allopurinol 300 mg oral tablet (20 sources)Xanthine Oxidase InhibitorStart: 06-22-2022 End: 34-01-6257vnhj 1 tablet by mouth once dailyAllopurinol 300 mg tablet Active 300 MG PO Daily June 22, 2022 12:00am Complies with drug therapyStart: 04-13-2019 End: 26-22-7756wmwc 1 tablet by mouth twice dailyAllopurinol 100 mg Tablet Discontinued 100 MG PO Twice daily April 13, 2019 1:00am June 22, 2022 3:38amBlood Glucose Monitoring Suppl (Accu-Chek Dione Plus) w/Device kit (6 sources)Start: 10-31-2024 End: 75-97-5082Okqgt Glucose Monitoring Suppl (Accu-Chek Dione Plus) w/Device kit Indications: Type 2 diabetes mellitus with stage 3b chronic kidney disease, without long-term current use of insulin (HCC) 1 each Daily 1 kit 10/31/2024 10/31/2025 Active End: 06-71-9095Xywur Glucose Monitoring Suppl (Accu-Chek Dione Plus) w/Device kit 1 each Daily 10/31/2024 Discontinued (Reorder)cholecalciferol 0.05 mg oral tablet (1 source)Vitamin DStart: 27-90-0440pbwo 1 tablet by mouth once daily Cholecalciferol (Vitamin D3) 50 mcg (2,000 unit) tablet Active 50 MCG PO Daily January 01, 2025 12:00am Complies with drug therapyfurosemide 40 mg oral tablet (20 sources)Loop DiureticStart: 04-13-2019 End: 80-13-3646cyiu 1 tablet by mouth once dailyFurosemide 40 mg tablet Active 40 MG PO Daily June 22, 2022 12:00am Complies with drug therapyglipiZIDE 10 mg oral tablet (20 sources)SulfonylureaStart: 06-22-2022 End: 09-69-3525kxpp 1 tablet by mouth twice daily at mealtimeGlipizide 10 mg tablet Active 10 MG PO .bid with meals January 01, 2025 9:35am Complies with drugtherapyStart: 04-13-2019 End: 56-31-8958hnbr 1 tablet by mouth twice dailyGlipizide 5 [...] mg oral tablet (20 sources)l-ThyroxineStart: 04-13-2019 End: 83-14-6331sngd 1 tablet by mouth once dailyLevothyroxine 200 mcg tablet Active 200 MCG PO Daily June 22, 2022 12:00am Complies with drug therapytake 1 capsule by mouth once daily in the morningLevothyroxine Sodium 200 MCG Oral Capsule TAKE 1 CAPSULE DAILY IN THE MORNING Quantity: 0 Refills: 0 Ordered: 01-Jul-2022 DO Activelosartan potassium 100 mg oral tablet (7 sources)Angiotensin 2 Receptor BlockerStart: 10-79-6929lhvk 1 tablet by mouth once dailymagnesium oxide 250 mg oral tablet (10 sources)Start: 16-83-5178sznh 1 tablet by mouth twice dailyMagnesium Oxide 250 mg magnesium tablet Active 250 MG PO Twice daily January 01, 2025 12:00am Complies with drug therapyStart: 09-15-2024 End: 77-64-7396hroa 1 tablet by mouth once dailyMagnesium Oxide 400 mg (241.3 mg magnesium) tablet Discontinued 400 MG PO Daily December 29, 2024 12:00am January 01, 2025 9:37am24 hr metoprolol succinate 50 mg extended release oral tablet (20 sources)beta-Adrenergic BlockerStart: 05-08-2024 End: 36-38-1598zqsx 3 tablets by mouth once dailymetoprolol succinate XL (Toprol-XL) 50 MG 24 hr tablet TAKE 3 TABLETS BY MOUTH ONCE DAILY DO NOT CRUSH OR CHEW 05/08/2024 ActiveStart: 15-71-3455Svlbrlfiwj Succinate 50 mg Tablet Extended Release 24 Hr Active 150 MG PO Daily 90 June 23, 2022 12:00am Complies with drug therapyStart: 61-05-3753hhts 150 mg by mouth once daily Metoprolol Succinate Active 150 MG PO Daily 90 June 23, 2022 12:00amStart: 06-22-2022 End: 70-99-2274erwl 1 tablet by mouth once dailyMetoprolol Succinate 100 mg tablet extended release 24 hr Discontinued 100 MG PO Daily June 22, 2022 12:00am June 23, 2022 12:19pmStart: 04-13-2019 End: 22-95-8619bnif 1 capsule by mouth once dailyMetoprolol Succinate 50 mg Capsule,Sprinkle,Er 24hr Discontinued 50 MG PO Daily April 13, 2019 1:00am June 22, 2022 3:38am End: 31-87-2092cyoo 1 tablet by mouth every twenty-four hours [...] tablet (20 sources)Factor Xa InhibitorStart: 06-23-2022 End: 97-14-8222zxdb 1 tablet by mouth once dailyRivaroxaban (Xarelto) 15 mg Tablet Active 15 MG PO DAILY@17 30 June 23, 2022 12:00am Complies with drug therapyStart: 06-22-2022 End: 78-24-8763hotf 1 tablet by mouth at bedtimeRivaroxaban (Xarelto) 20 mg tablet Discontinued 20 MG PO Bedtime June 22, 2022 12:00am June 12:19pmspironolactone 25 mg oral tablet (14 sources)Aldosterone Antagonist End: 70-17-9511lmibuimlcbtedg (Aldactone) 25 MG tablet Oral 05/25/2024 Discontinued (Therapy completed) Completed/Discontinued Medications MedicationDrug Class(es)DatesSig (Normalized)Sig (Original)atorvastatin 40 mg oral tablet (7 sources)HMG-CoA Reductase InhibitorStart: 06-23-2022 End: 19-39-5936qsip 1 tablet by mouth once daily in the eveningAtorvastatin 40 mg Tablet Discontinued 40 MG PO Every evening June 23, 2022 12:00am 2024 9:34amclopidogrel 75 mg oral tablet (5 sources)P2Y12 Platelet InhibitorStart: 04-13-2019 End: 50-82-0157wkwz 1 tablet by mouth once dailyClopidogrel 75 mg Tablet Discontinued 75 MG PO Daily April 13, 2019 1:00am June 22, 2022 3:38am digoxin 0.125 mg oral tablet (5 sources)Cardiac GlycosideStart: 04-13-2019 End: 44-76-3515pedv 1 tablet by mouth once dailyDigoxin 125 mcg (0.125 mg) Tablet Discontinued 125 MCG PO Daily April 13, 2019 1:00am April 17, 2019 3:13pmmetFORMIN hydrochloride 500 mg oral tablet (20 sources)BiguanideStart: 04-13-2019 End: 41-94-4175sfyc 1 tablet by mouth twice dailyMetformin 500 mg tablet Discontinued 500 MG PO Twice daily June 22, 2022 12:00am January 01, 2025 9:40amprobenecid 500 mg oral tablet (5 sources)Start: 04-13-2019 End: 07-47-2003vnoo 1 tablet by mouth once dailyProbenecid 500 mg Tablet Discontinued 500 MG PO Daily April 13, 2019 1:00am June 22, 2022 3:38am ramipril 10 mg oral capsule (5 sources)Angiotensin Converting Enzyme InhibitorStart: 04-13-2019 End: 69-55-2702fxev 1 capsule by mouth once dailyRamipril 10 mg Capsule Discontinued 10 MG PO Daily April 13, 2019 1:00am June 22, 2022 3:38am warfarin sodium 5 mg oral tablet (5 sources)Vitamin K AntagonistStart: 04-13-2019 End: 20-92-4249Npernree 5 mg Tablet Discontinued 0 .ROUTE .COMPLEX April 13, 2019 1:00am June 22, 2022 3:38am Per Dr. Ewing in [place] instructions 5mg everyday besides Wednesday and Wednesday which then she takes 7.5mg Problems Active Problems Problem ClassificationProblemDateDocumented DateEpisodic/ChronicAcute and unspecified renal failure (5 sources)Injury of kidney; Translations: [Acute kidney failure, unspecified] 81-10-7521XziskabpFatlogz on above:Problem List clean-up per request of Phys. EHR CmteAcute myocardial infarction (9 sources)Non-ST elevation (NSTEMI) myocardial infarction; Translations: [Myocardial infarction]Onset: 879547-36-4079EdsarljDrfarz; peripheral; and visceral artery aneurysms (5 sources)Ascending aorta dilatation; Translations: [Thoracic aortic ectasia] 93-11-5121AjthqyrFndhauk on above:Problem List clean-up per request of Phys. EHR CmteCardiac dysrhythmias (20 sources)Atrial fibrillation; Translations: [Unspecified atrial fibrillation] Onset: 879672-11-9069ZqvvtbnGqjyylr on above:Problem List clean-up per request of Phys. EHR CmteCataract (20 sources)Bilateral age-related nuclear cataracts; Translations: [Age-related nuclear cataract, bilateral]Onset: 797526-81-6939DxaormmVadmmzd kidney disease (20 sources)Chronic kidney disease stage 3; Translations: [Stage 3 chronic kidney disease]Onset: 04-12-2023 Resolved: 719698-45-9146KkcqlweWrhvczd on above:Problem List clean-up per request of Phys. EHR CmteCoagulation and hemorrhagic disorders (20 sources)Factor V Leiden mutation; Translations: [Activated protein C resistance]Onset: 467819-03-5999AitrcphQnzvnpt on above:Problem List clean-up per request of Phys. EHR CmteCongestive heart failure; nonhypertensive (20 sources)Symptomatic congestive heart failure; Translations: [Congestive heart failure, unspecified]Onset: 07-23-2022 Resolved: 186597-94-5966EcwlylqXgsmvoaj atherosclerosis and other heart disease (20 sources)Coronary arteriosclerosis; Translations: [Atherosclerotic heart disease of [place] coronary artery without angina pectoris]Onset: 12-15-2010 Resolved: 727765-57-8072LpvyqxwKgvbbyq on above:Problem List clean-up per request of Phys. EHR CmteCoronary atherosclerosis and other heart disease (5 sources)Presence of coronary angioplasty implant and graft; Translations: [Percutaneous transluminal coronary angioplasty status]Onset: 06-23-2022 44-00-7384NuclxoqmWakrmgyozq and other anemia (5 sources)Anemia; Translations: [Anemia, unspecified]84-18-4579VwvkfiniHhkybsm on above:Problem List clean-up per request of Phys. EHR CmteDeficiency and other anemia (5 sources)Iron deficiency anemia; Translations: [Iron deficiency anemia, unspecified]69-35-9362RkfwpczaEfmoweg on above:Problem List clean-up per request of Phys. EHR CmteDiabetes mellitus with complications (20 sources)Type 2 diabetes mellitus with diabetic polyneuropathy; Translations: [Type 2 diabetes mellitus withdiabetic chronic kidney disease]Onset: 07-03-2021 ChronicDiabetes mellitus without complication (20 sources)Diabetes mellitus; Translations: [Type 2 diabetes mellitus without complications]Onset: 746316-46-5123LwhmhzmPypxpoe on above:Problem List clean-up per request of Phys. EHR CmteDisorders of lipid metabolism (20 sources)Pure hypercholesterolemia, unspecified; Translations: [Hyperlipidemia, unspecified]Onset: 797352-43-2251MqwozekPqccvlicaj disorders (5 sources)Esophagitis; Translations: [Esophagitis determined by endoscopy] 78-27-6934ZlbonlknVwsbfgi on above:Problem List clean-up per request of Phys. EHR CmteEssential hypertension (20 sources)Hypertensive disorder; Translations: [Essential (primary) hypertension]Onset: 118123-38-0325BwiisvsGcticwn on above:Problem List clean-up per request of Phys. EHR CmteGenitourinary symptoms and ill-defined conditions (1 source)Personal history of urinary (tract) infections; Translations: [PERS HX URINARY TRACT INFECTIONS]Onset: 48-98-9261TcamprawBggx and other crystal arthropathies (20 sources)Gout; Translations: [Gout, unspecified]Onset: ChronicComment on above:Problem List clean-up per request of Phys. EHR Cmte Hypertension with complications and secondary hypertension (1 source)Hypertensive heart disease with heart failure; Translations: [HTN HEART DISEASE W/HEART FAIL]Onset: 79-65-6479EmyudrmCbztumww disorders (19 sources)Secondary immune deficiency disorder; Translations: [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 elsewhere]Onset: 05-25-2024 41-00-1568XboybarPvtarfrbjjrwg and screening for infectious disease (4 sources)Patient encounter status; Translations: [Other specified vaccination] Resolved: 868785-19-4566NcqbygczBdtfwoexe (20 sources)Acute leukemia of unspecified cell type, in remission; 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 EHR Cmte Osteoarthritis (20 sources)Degenerative joint disease involving multiple joints; Translations: [Polyosteoarthritis, unspecified]Onset: 797945-18-9688UclwfnjDxvsu aftercare (5 sources)Long-term current use of anticoagulant; Translations: [senior care (current) use of anticoagulants]95-85-1649GkvwmfxeBvucftc on above:Problem List clean-up per request of Phys. EHR CmteOther aftercare (3 sources)senior care (current) use of anticoagulants; Translations: [Long-term (current) use of anticoagulants]Onset: 137784-96-1907DepbaogkDwtts aftercare (1 source)termination clerk (current) use of oral hypoglycemic drugs; Translations: [NONPROFIT DIRECTOR USE ORAL HYPOGLYCEMIC DX]Onset: 71-49-8802VyvcxmsgFpffu aftercare (1 source)Other senior care (current) drug therapy; Translations: [OTH NONPROFIT DIRECTOR CURRENT DRUG THERAPY]Onset: 13-55-8861ExvhqeynAfjse gastrointestinal disorders (7 sources)Diarrhea; Translations: [Diarrhea, unspecified]Onset: 10-31-2024 85-20-4095RzktlkmfCuwpc hematologic conditions (4 sources)Raised cardiac enzyme or marker; Translations: [Other specified abnormalities of plasma proteins]23-74-4707LthtsmmnYgmrggb on above:Problem List clean-up per request of Phys. EHR CmteOther hematologic conditions (2 sources)Other specified abnormalities of plasma proteins; Translations: [Other abnormal blood chemistry]52-06-5858NjseqjdnOfhil lower respiratory disease (5 sources)Dyspnea; Translations: [Dyspnea, unspecified]21-88-6328Mprylxnh Comment on above:Problem List clean-up per request of Phys. EHR CmteOther lower respiratory disease (5 sources)Multiple nodules of lung; Translations: [Other nonspecific abnormal finding of lung field]83-56-2167FaxwjruqNbrrofy on above:Problem List clean-up per request of Phys. EHR CmteOther lower respiratory disease (2 sources)Dyspnea, unspecified; Translations: [Other respiratory abnormalities] 89-21-7459FfnczwdwOvrde nutritional; endocrine; and metabolic disorders (1 source)Morbid (severe) obesity due to excess calories; Translations: [MORBID SEVERE OBES D/T EXCESS TAIWO]Onset: 66-03-2089IhksshtVnhmx nutritional; endocrine; and metabolic disorders (1 source)Body mass index (BMI) 45.0-49.9, adult; Translations: [BODY MASS INDEX BMI 45.0-49.9 ADULT]Onset: 85-08-6250MqtqykqUjttd nutritional; endocrine; and metabolic disorders (11 sources)Morbid obesity; Translations: [Morbid (severe) obesity due to excess calories]Onset: 667024-82-5230RdfsnugMrykt nutritional; endocrine; and metabolic disorders (20 sources)Obesity caused by energy imbalance; Translations: [Morbid (severe) obesity due to excess calories]Onset: 062830-94-1939MvevoruWzjno nutritional; endocrine; and metabolic disorders (19 sources)Body mass index 40+ - severely obese; Translations: [Body mass index (BMI) 40.0-44.9, adult]Onset: 335358-54-3511WhkibmtYjygk nutritional; endocrine; and metabolic disorders (15 sources)Hypomagnesemia; Translations: [Hypomagnesemia]Onset: 08-29-2024 34-57-9115VqmyvgfUemaf nutritional; endocrine; and metabolic disorders (4 sources)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 EHR CmtePhlebitis; thrombophlebitis and thromboembolism (20 sources)Personal history of other venous thrombosis and embolism; Translations: [H/O: Deep vein thrombosis]Onset: 113639-70-0955Ljtlucsg Pulmonary heart disease (20 sources)History of arterial thrombosis; Translations: [Personal history of pulmonary embolism]Onset: 456259-78-0492YffvymlaNnfccqy on above:Problem List clean-up per request of Phys. EHR CmteResidual codes; unclassified (5 sources)H/O cardiac surgery; Translations: [Other specified postprocedural states]82-64-7808SjwybnkpIxsmron on above:w1Bzkzcvo List clean-up per request of Phys. EHR CmteResidual codes; unclassified (2 sources)Other specified postprocedural states; Translations: [Other postprocedural status]32-11-2067IorzpenjLemtapdb codes; unclassified (20 sources)Other specified health status; Translations: [Other drug allergy] Onset: 164451-80-7057WfgvhqfdCwfvyxix codes; unclassified (2 sources)Never smoked tobacco; Translations: [Other specified health status] Onset: 536974-70-7789OrmksgrkUhgvhws disorders (20 sources)Hypothyroidism; Translations: [Hypothyroidism, unspecified]Onset: 594736-49-5253LuvodhlOhrjuqv on above:Problem List clean-up per request of Phys. EHR CmteUnclassified (1 source)CHRN KIDNEY DISEASE STG 3 UNSP; Translations: [CHRN KIDNEY DISEASE STG 3 UNSP]Onset: 10-01-2021 Past or Other Problems Problem ClassificationProblemDateDocumented DateEpisodic/ChronicEsophageal disorders (20 sources)Gastroesophageal reflux disease; Translations: [Gastro-esophageal reflux disease without esophagitis]Onset: 10-29-2011 Resolved: 494190-01-1825ArsaoksNyqt disorders (20 sources)Mood disordersOnset: 04-12-2023 Resolved: Other [...] mg/dLNOMS HealthcareCLINISYNCNOMS HealthcareALL CBC WITH AUTO DIFFon 66-21-0324TZKJBLLCG ABSOLUTE AUTO0.1[facility] Basophils/100 WBC (Bld)1.1 %0.2 - 2.0 %[facility] HealthcareEosinophils/100 WBC (Bld) 2.2 %0.9 - 7.0 %NOMS HealthcareErythrocyte distribution width (RBC) [Ratio]13.8 %11.0 - 15.0 %NOM HealthcareHematocrit (Bld) [Volume fraction]42.7 %36.0 - 48.0 %[facility] HealthcareHemoglobin (Bld) [Mass/Vol]13.7 g/dL12.0 - 16.0 g/dLLONE PEAK HOSPITAL HealthcareIMMATURE GRANULOCYTES ABS AUTO0.03NOMS HealthcareImmature granulocytes/100 WBC (Bld)0.4 %0.0 - 0.5 %[facility] CenterLYMPHOCYTES ABSOLUTE AUTO1.7NOMS HealthcareLymphocytes/100 WBC (Bld)23.6 %20.5 - 60.0 %[facility] CenterH (RBC) [Entitic mass]30 pg26.7 - 34.0 pgNOSainte Genevieve County Memorial HospitalHC (RBC) [Mass/Vol]32.1 g/dL29.9 - 35.2 g/dLJohn J. Pershing VA Medical CenterMCV (RBC) [Entitic vol]93.4 fL 81.0 - 99.0 fLJohn J. Pershing VA Medical CenterMONOCYTES ABSOLUTE AUTO0.7NO[facility] Monocytes/100 WBC (Bld)9 %1.7 - 12.0 %[facility] CenterNEUTROPHILS ABSOLUTE AUTO 4.6NOMS HealthcareNeutrophils/100 WBC (Bld)63.7 %43.0 - 75.0 %[facility] Platelet mean volume (Bld) [Entitic vol]11.4 fL9.5 - 13.5 fLJohn J. Pershing VA Medical CenterTB EO #0.2NOMS HealthcareTB [id number] [facility] HospitalTB RBC4.57NOMS [facility] HospitalTB WBC 7.2NOMS HealthcareCLINISYNCNLAUREATE PSY[facility] [place] VltajgfmeaPtY6f (Bld) [Mass fraction]on 41-17-1431Fqcrykluqctbam and review of laboratory resultsAbnormalSt. Luke's Hospital HealthcareLaboratory - Hematology and Cell countson 91-20-7404GxI3v (Bld) [Mass fraction]6.4 %[facility] HealthcareUrine Cultureon 16-92-9671Imkvlbvu identified Cx Nom (U)>100,000 colonies/ml mixed bacterial skin contaminants 2 Days PERFORMED BY: [facility] [place] [address] PATHOLOGIST RADIOLOGIST PHYSICIAN RIC BASS M.D.[facility] Physician GroupComment on above: Performed By: #### CUU #### [facility] [id number] [facility] CENTERALL CBC WITH AUTO DIFFon 47-10-7283BSNXYYLYV ABSOLUTE AUTO 0.1NOMS HealthcareBasophils/100 WBC (Bld)1.1 %0.2 - 2.0 %[facility] Eosinophils/100 WBC (Bld)2.9 %0.9 - 7.0 %NOMS HealthcareErythrocyte distribution width (RBC) [Ratio]13.8 %11.0 - 15.0 %N[facility]S HealthcareHematocrit (Bld) [Volume fraction]45.2 %36.0 - 48.0 %[facility]S HealthcareHemoglobin (Bld) [Mass/Vol]14.9 g/dL 12.0 - 16.0 g/dLNOWY HealthcareIMMATURE GRANULOCYTES ABS AUTO0.03[facility] Immature granulocytes/100 WBC (Bld)0.4 %0.0 - 0.5 %[facility] HealthcareLYMPHOCYTES ABSOLUTE AUTO2.6NOMS HealthcareLymphocytes/100 WBC (Bld)34.2 %20.5 - 60.0 %[facility]S HealthcareMCH (RBC) [Entitic mass]31 pg26.7 - 34.0 pgNOMS HealthcareMCHC (RBC) [Mass/Vol]33 g/dL29.9 - 35.2 g/dLNOWY HealthcareMCV (RBC) [Entitic vol]94.2 fL 81.0 - 99.0 fLNOWY HealthcareMONOCYTES ABSOLUTE AUTO0.8[facility] Monocytes/100 WBC (Bld)10.3 %1.7 - 12.0 %N[facility]S HealthcareNEUTROPHILS ABSOLUTE AUTO3.9NOMS HealthcareNeutrophils/100 WBC (Bld)51.1 %43.0 - 75.0 %NOMS HealthcarePlatelet mean volume (Bld) [Entitic vol]11.6 fL9.5 - 13.5 fLNOMS HealthcareTBH EO #0.2NOMS HealthcareTBH [id number] HealthcareTBH RBC4.8NOMS HealthcareTBH WBC7.6NOMS HealthcareCLINISYNCNOMS HealthcareGlucose Glucometer (BldC) [Mass/Vol]Ordered By: Nelson Orourke on 46-77-8816Sngxdhq [Mass/Vol]144 mg/dLChillicothe HospitalComment on above:Random Glucose Reference Range is dependent on time and content of last meal. Glucose of more than 200 mg/dL in a nonstressed, ambulatory subject supports the diagnosis of Diabetes Mellitus.Basophils Auto (Bld) [#/Vol]Ordered By: Ren Mohan on 12-27-2023 Basophils (Bld) [#/Vol]0.1 10*3/uL0.0-0.2FRegency Hospital Company Basophils/100 WBC Auto (Bld)Ordered By: Ren Mohan on 12-27-2023 Basophils/100 WBC (Bld)0.8 %.[facility]icothe HospitalCalcium [Mass/volume] in Serum or PlasmaOrdered By: Ren Mohan on 96-55-8749Dvfzxbt [Mass/Vol]8.6 mg/dL8.6-10.3FRegency Hospital CompanyCarbon dioxide, total [Moles/volume] in Serum or PlasmaOrdered By: Ren Mohan on 12-27-2023 CO2 [Moles/Vol]24.9 mmol/L21.0-31.0Chillicothe HospitalChloride [Moles/volume] in Serum or PlasmaOrdered By: Ren Mohan on 12-27-2023 Chloride [Moles/Vol]102 mmol/V78-438WlevnnexuChillicothe HospitalCreatinine [Mass/volume] in Serum or PlasmaOrdered By: Ren Mohan on 12-27-2023 Creatinine [Mass/Vol]1.12 mg/dL0.60-1.20[facility] Eosinophils Auto (Bld) [#/Vol]Ordered By: Ren Mohan on 12-27-2023 Eosinophils (Bld) [#/Vol]0.2 10*3/uL0.0-0.45[facility] Eosinophils/100 WBC Auto (Bld)Ordered By: Ren Mohan on 12-27-2023 Eosinophils/100 WBC (Bld)3.4 %.[facility]illicothe HospitalErythrocyte distribution width Auto (RBC) [Ratio]Ordered By: Ren Mohan on 12-27-2023 Erythrocyte distribution width (RBC) [Ratio]14.4 %11.9-15.3FRegency Hospital CompanyGlucose [Mass/volume] in Serum or PlasmaOrdered By: Ren Mohan on 26-13-8793Bntnmtt [Mass/Vol]172 mg/vMNlud73-956NbizgnfroChillicothe HospitalComment on above:ADA recommended reference rangeRandom Glucose Reference Range is dependent on time and content of last meal. Glucose of more than 200 mg/dL in a nonstressed, ambulatory subject supports the diagnosisof Diabetes Mellitus.Hematocrit Auto (Bld) [Volume fraction]Ordered By: Ren Mohan on 70-94-5455Ssjctmscjp (Bld) [Volume fraction]39.7 %34.0-46.4FRegency Hospital CompanyHemoglobin [Mass/volume] in BloodOrdered By: Ren Mohan on 09-68-7838Tozteipwzz (Bld) [Mass/Vol]13.5 g/dL11.8-15.4FRegency Hospital CompanyLeukocytes [#/volume] corrected for nucleated erythrocytes in Blood by Automated counOrdered By: Ren Mohan on 95-83-5478CUC corrected for nucl RBC Auto (Bld) [#/Vol]7.1 10*3/uL3.8-11.6FRegency Hospital Company Lymphocytes Auto (Bld) [#/Vol]Ordered By: Ren Mohan on 12-27-2023 Lymphocytes (Bld) [#/Vol]2.4 10*3/uL1.00-4.8[facility] Lymphocytes/100 WBC Auto (Bld)Ordered By: Ren Mohan on 12-27-2023 Lymphocytes/100 WBC (Bld)34.5 %.[facility] Auto (RBC) [Entitic mass]Ordered By: Ren Mohan on 79-57-2218GDG (RBC) [Entitic mass] 31.6 pg24.7-34.3FRegency Hospital CompanyMCHC Auto (RBC) [Mass/Vol] Ordered By: Ren Mohan on 68-23-8035EQFS (RBC) [Mass/Vol]33.9 g/dL32.0-35.0 [facility] HospitalMCV Auto (RBC) [Entitic vol]Ordered By: Ren Mohan on 92-49-1919QYE (RBC) [Entitic vol]93.2 cE48-203RjmcwhdghChillicothe HospitalMagnesium [Mass/volume] in Serum or PlasmaOrdered By: Ren Mohan on 75-92-1207Bavfpjbvh [Mass/Vol]1.9 mg/dL1.9-2.7FRegency Hospital CompanyMonocytes Auto (Bld) [#/Vol]Ordered By: Ren Mohan on 22-35-6040Cxorrsxih (Bld) [#/Vol]0.9 10*3/uLHigh0.0-0.8[facility]icothe HospitalMonocytes/100 WBC Auto (Bld)Ordered By: Ren Mohan on 21-85-3548Lsjgyokjm/100 WBC (Bld)12.5 %.[facility] Neutrophils Auto (Bld) [#/Vol]Ordered By: Ren Mohan on 12-27-2023 Neutrophils (Bld) [#/Vol]3.5 10*3/uL1.8-7.7FRegency Hospital Company Neutrophils/100 WBC Auto (Bld)Ordered By: Ren Mohan on 12-27-2023 Neutrophils/100 WBC (Bld)48.8 %.[facility] HospitalNo Panel InformationOrdered By: Ren Mohan on 45-28-0101Iutuutita GFR (CKD-EPI)47.889 mL/MinChillicothe HospitalPharmacy Creatinine Clearance (Chem52.61 [facility] HospitalNucleated erythrocytes [Presence] in Blood by Automated countOrdered By: Ren Mohan on 76-92-1932Jdyrlyxeo RBC Auto Ql (Bld)0.0 /100{WBC}0-0.5FRegency Hospital CompanyPlatelet mean volume Auto (Bld) [Entitic vol]Ordered By: Ren Mohan on 59-37-2068Bhnldrgj mean volume (Bld) [Entitic vol]9.9 fL6.3-10.7FRegency Hospital Company Platelets Auto (Bld) [#/Vol]Ordered By: Ren Mohan on 95-32-7515Skxagajxt (Bld) [#/Vol]175 10*3/fQ286-813SwqsjtuofChillicothe HospitalPotassium [Moles/volume] in Serum or PlasmaOrdered By: Ren Mohan on 12-27-2023 Potassium [Moles/Vol]3.6 mmol/L3.5-5.1FRegency Hospital CompanyRBC Auto (Bld) [#/Vol]Ordered By: Ren Mohan on 87-28-0146INA (d) [#/Vol]4.26 10*6/uL3.60-5.00[facility], Cancer Centererum or plasma anion gap determinationOrdered By: Ren Mohan on 95-60-7143Zceoh gap [Moles/Vol]11.7 mmol/L6.0-15.0[facility] MD, Cancer Centerodium [Moles/volume] in Serum or PlasmaOrdered By: Ren Mohan on 68-47-2334Aezbub [Moles/Vol]135 mmol/LLow 136-145[facility] HospitalUrea nitrogen [Mass/volume] in Serum or PlasmaOrdered By: Ren Mohan on 75-94-5462Wifp nitrogen [Mass/Vol]38 mg/dL High7-25Ch[facility]othe HospitalWBC Auto (d) [#/Vol]Ordered By: Ren Mohan on 78-30-8803ZMH (d) [#/Vol]7.1 10*3/uL3.8-11.6FRegency Hospital CompanyAlanine aminotransferase [Enzymatic activity/volume] in Serum or PlasmaOrdered By: Apryl Shirley on 70-88-8440SZR [Catalytic activity/Vol]11 U/L7-52[facility] HospitalAlbumin [Mass/volume] in Serum or Plasma by Bromocresol green (BCG) dye binding methoOrdered By: Apryl Shirley on 59-84-6402Vonsxps BCG dye [Mass/Vol]3.3 g/dLLow3.5-5.7FRegency Hospital CompanyAlkaline phosphatase [Enzymatic activity/volume] in Serum or PlasmaOrdered By: Apryl Shirley on 43-96-5629HMM [Catalytic activity/Vol]77 U/G80-826BrcpssfxlChillicothe HospitalAspartate aminotransferase [Enzymatic activity/volume] in Serum or PlasmaOrdered By: Apryl Shirley on 11-96-3286EZG [Catalytic activity/Vol]17 U/X02-28PkbssjsuoChillicothe Hospital Bilirubin.direct [Mass/volume] in Serum or PlasmaOrdered By: Apryl Shirlye on 32-25-7105Uriobpqqj.direct [Mass/Vol]0.10 mg/dL0.03-0.18FRegency Hospital CompanyBilirubin.total [Mass/volume] in Serum or PlasmaOrdered By: Apryl Shirley on 58-09-4805Qwzuroavn [Mass/Vol]0.5 mg/dL0.3-1.0[facility] HospitalGlobulin Calc (S) [Mass/Vol]Ordered By: Apryl Shirley on 18-21-9796Kqmfwift (S) [Mass/Vol]3.4 g/dLChillicothe Hospital Protein [Mass/volume] in Serum or PlasmaOrdered By: Apryl Shirley on 12-26-2023 Protein [Mass/Vol]6.7 g/dL6.4-8.9[facility] Cancer Centererum or plasma albumin/globulin mass ratioOrdered By: Apryl Shirley on 12-26-2023 Albumin/Globulin [Mass ratio]1.0 {ratio}[facility] Cancer Centererum or plasma non-glucuronidated bilirubin measurement (mass/volume)Ordered By: Apryl Shirley on 72-36-8380Uzrhaylop.indirect [Mass/Vol]0.4 mg/dLChillicothe HospitalThyrotropin [Units/volume] in Serum or PlasmaOrdered By: Ren Mohan on 44-22-2277TXG Qn0.61 m[IU]/L0.45-5.33[facility] HospitalTroponin I.cardiac [Mass/volume] in Serum or Plasma by Detection limit <= 0.01 ng/Ordered By: Apryl Shirley on 16-82-1432Ikawroxa I.cardiac DL <= 0.01 ng/mL [Mass/Vol]73.3 pg/mLHigh0.0-15.0[facility] Comment on above:Critical Result : Called to and read back by: CLAUDIA ARELLANO at: 12/26/2023 07:38:15 by:SPENCERActivated partial thromboplastin time (aPTT) in platelet poor plasma by coagulation aOrdered By: Ren Mohan on 12-25-2023 aPTT Coag (PPP) [Time]33.2 s25.1-36.5FRegency Hospital CompanyComment on above:A hematocrit value greater than 55% may lead to inaccurate results in coagulation testing. Patientshaving hematocrit values >55% require a special collection tube for coagulation studies. Please contact the laboratory at [phone] for redraw instructions.COVID-19 Detected/Not DetectedOrdered By: Ren Mohan on 87-61-6825PGNN-CoV-2 (COVID-19) RNA COLIN+non-probe Ql (Nph)Not detectedNot DetectSt. Anthony's HospitalComment on above:This is a duplicate RP2.1 COVID (PCR) result to be used for statistical tracking purpose only.Cholesterol [Mass/volume] in Serum or PlasmaOrdered By: Ren Mohan on 84-46-5186Fstaxvtlyfh [Mass/Vol]166 mg/iH322-872GlwvironlChillicothe HospitalComment on above:Chol less than 200 mg/dl low riskChol 201-239 mg/dl borderline riskChol 240 mg/dl and greater high riskCholesterol in LDL Calc [Mass/Vol]Ordered By: Ren Mohan on 70-23-4048Btmtzlvlbgl in LDL [Mass/Vol] 115 mg/dLHigh0-100Ch[facility] HospitalComment on above:LDL ATP III CLASSIFICATIONLDL less than 100 mg/dL OptimalLDL 100-129 mg/dL Near or above tqdqobgZXM900-516 mg/dL Borderline highLDL 160-189 mg/dL HighLDL greater than 189 mg/dL Very highCholesterol in VLDL Calc [Mass/Vol]Ordered By: Ren Mohan on 05-63-5627Vhmdrkkkbay in VLDL [Mass/Vol]23 mg/dLChillicothe HospitalCreatine kinase [Enzymatic activity/volume] in Serum or PlasmaOrdered By: Ren Mohan on 05-25-3886ZM [Catalytic activity/Vol]52 U/K01-589WawfwjobgChillicothe HospitalGlucose mean value [Mass/volume] in Blood Estimated from glycated hemoglobinOrdered By: Ren Mohan on 53-34-4739Nqyaokb glucose Estimated from glycated hemoglobin (Bld) [Mass/Vol]177 mg/dLChillicothe HospitalHemoglobin A1c percentageOrdered By: Ren Mohan on 12-25-2023 HbA1c (Bld) [Mass fraction]7.8 %High4.3-5.6FRegency Hospital Company Comment on above:Increased risk for diabetes: 5.7 - 6.4diabetes: >6.4glycemic control for adults with diabetes: <7.0INR in Platelet poor plasma by Coagulation assayOrdered By: Ren Mhoan on 93-19-1721LBS Coag (PPP) [Relative time]1.2 {INR}[facility] HospitalComment on above:INR Therapeutic Range A) Pre- and [...] Prothrombin time (PT)Ordered By: Ren Mohan on 74-16-5932LR Coag (PPP) [Time]14.1 sHigh9.0-12.9[facility] HospitalComment on above:A hematocrit value greater than 55% may lead to inaccurate results in coagulation testing. Patientshaving hematocrit values >55% require a special collection tube for coagulation studies. Please contact the laboratory at [phone] for redraw instructions.Respiratory pathogens DNA and RNA panel - Nasopharynx by COLIN with non-probe detectionOrdered By: Ren Mohan on 19-98-0442Hxkhdkphdzj pathogens DNA and RNA panel COLIN+non-probe (Nph)[facility] Serum or plasma high density lipoprotein (HDL) cholesterol measurementOrdered By: Ren Mohan on 28-45-1263Auiqjfrfjqw in HDL [Mass/Vol]27 mg/dL23-92 [facility] HospitalComment on above:HDL CHOL ATP-III CLASSIFICATION Cardiovascular RiskHDL > or equal to 60 mg/dL LOWHDL < 40 mg/dL HIGHSerum or plasma total cholesterol/high density lipoprotein (HDL) cholesterol mass ratOrdered By: Ren Mohan on 87-17-2878Dpefrghrahy.total/Cholesterol in HDL [Mass ratio]6.1 {ratio}<5.0[facility] HospitalTriglyceride [Mass/volume] in Serum or PlasmaOrdered By: Ren Mohan on 12-25-2023 Triglyceride [Mass/Vol]118 mg/dL0-149Ch[facility] HospitalComment on above:TRIG ATP III CLASSIFICATIONTRIG less than 150 mg/dL NormalTRIG 150-199 mg/dL Borderline highTRIG 200-500 mg/dL High TRIG greater than 500 mg/dL Very highStandard traceable to the Center for Disease Conrtrol and Prevention (CDC) test method.Office Visit (Cardiology)on 35-40-3785Aabfux-up visit Diagnoses/Problems Assessed Afib (427.31) (I48.91) ASHD [...] Aminotransferase, Serum; Status:Active - Retrospective Authorization; Requested for:[id number]; AST; Status:Active - Retrospective Authorization; Requested for:[id number]; Basic Metabolic Panel; Status:Active - Retrospective Authorization; Requested for:[id number]; Lipid Panel; Status:Active - Retrospective Authorization; Requested for:[id number]; SocHx: Never a smoker Tobacco Use Screening; Status:Complete; Done: 65Kob7720 Patient Instructions Please bring all medicines, vitamins, [...] obtain most recent labs at [facility] in last two weeks if no lipid [...] By: Yoan Dobbs MD (Gastroenterology) History of [place] filter placement Past Medical History Problems History [...] negative for complaint. Vitals Vital Signs Recorded: 25Urm2277 09:09AM Heart Rate56 Mskbfghz566, LUE, Sitting Bbsjirsfl57, LUE, Sitting Height5 ft 8 in Tobacco [...] turgor . Psyc (more content not included)...NormalUH TouchworksSAINT [facility] CARDIAC STRESS/REST INJECTIONon 34-97-4848IUS CARDIAC STRESS/REST INJECTIONMRN: [id number] Patient Name: MOHAN ESPINOZA STUDY: MYOCARDIAL PERFUSION STRESS TEST WITH LEXISCAN Performing facility: [facility], [address] [place] [address], [address], [place] [id number] [facility] Provider: Leanna Casey DO, FACC PCP: Dr. Ruben Schultz Supervising provider: Yu Barriga MD, FACC INDICATION: A-fib ASHD CHF HISTORY: Gender: F; Age: 87 y/o ; Height: 0 cm; Weight: 854.3685399 kg. CAD; Diabetes; Previous NM; Arrhythmias; Denies smoking. CABG on 2007. COMPARISON: No comparison. ACCESSION NUMBER(S): [id number]; [id number]; [id number] ORDERING CLINICIAN: JOSELUIS CASEY TECHNIQUE: TWO DAY [...] for comparison. Electronically signed by: STEPHANIE HANCOCK MDKindred Hospital Pittsburgh Height or Weight NOT Doneon 02-97-5626Xcigf depression screening assessmentYes [facility] [address] DO Work Phone: Adult depression screening assessmentModerately Severe (15-19)[facility] [address] DO Work Phone: Fall risk assessmenta) No falls within the last year [facility] [address] DO Work Phone: Tobacco use status CPHSb) [facility]MM[facility] [place] [address] DO Work Phone: Height or Weight NOT Done3-Nearly every dayOdessa Memorial Healthcare [facility] [address] DO Work Phone: Height or Weight NOT Done1-Several daysOdessa [facility] [address] DO Work Phone: Height or Weight NOT Done0-Not at allOdessa Memorial Healthcare Center [facility] [address] DO Work Phone: Height or Weight NOT DoneVery DifficultOdessa Memorial Healthcare Center [facility] [address] DO Work Phone: Office Visit (Cardiology)on 25-56-5175Wkedwg-up visit Diagnoses/Problems Assessed ASHD (arteriosclerotic heart disease) [...] up in [12 ] weeks Chief Complaint [facility] [place] [facility] 06/23/22. 86-year-old female returns [...] Recorded: 01Jul2022 09:34AM Heart Rate68, L Radial Egbbnwcy632, RUE, Sitting Avdbcibje48, RUE, Sitting Height5 ft 8 in Height or Weight NOT Done (more content not included)...NormalUH Touchworks Calcium [Mass/volume] in Serum or PlasmaOrdered By: Brissa Hoffman on 57-64-4022Dhplgrn [Mass/Vol]8.8 mg/dL8.6-10.3FRegency Hospital Company Carbon dioxide, total [Moles/volume] in Serum or PlasmaOrdered By: Brisas Hoffman on 97-32-7378SG5 [Moles/Vol]32.3 mmol/L21.0-31.0[facility] HospitalChloride [Moles/volume] in Serum or PlasmaOrdered By: Brissa Hoffman on 43-87-5417Vrndmbtn [Moles/Vol]100 mmol/J57-708OdsuejieqChillicothe HospitalCreatinine [Mass/volume] in Serum or PlasmaOrdered By: Brissa Hoffman on 47-67-4371Xqanitjnyt [Mass/Vol]1.66 mg/dL0.60-1.20[facility] HospitalGlucose [Mass/volume] in Serum or PlasmaOrdered By: Brissa Hoffman on 52-66-8501Wtvtego [Mass/Vol]245 mg/oH44-001DmgaqtlmlChillicothe HospitalComment on above:ADA recommended reference rangeRandom Glucose Reference Range is dependent on time and content of last meal. Glucose of more than 200 mg/dL in a nonstressed, ambulatory subject supports the diagnosisof Diabetes Mellitus.No Panel InformationOrdered By: Brissa Hoffman on 06-29-2022 Estimated GFR (CKD-EPI)30.239 mL/MinChillicothe HospitalPharmacy Creatinine Clearance (ChemN/AFRegency Hospital CompanyPotassium [Moles/volume] in Serum or PlasmaOrdered By: Brissa Hoffman on 06-29-2022 Potassium [Moles/Vol]4.6 mmol/L3.5-5.1FThe Christ Hospitalerum or plasma anion gap determinationOrdered By: Brissa Hoffman on 03-89-0039Vswjr gap [Moles/Vol]9.3 mmol/L6.0-15.0[facility], Cancer Centerodium [Moles/volume] in Serum or PlasmaOrdered By: Brissa Hoffman on 54-32-9951Pdetol [Moles/Vol]137 mmol/D208-360BglqmdxnhChillicothe HospitalUrea nitrogen [Mass/volume] in Serum or PlasmaOrdered By: Brissa Hoffman on 31-90-4947Ekys nitrogen [Mass/Vol]31 mg/dL7-25[facility] HospitalBasophils Auto (Bld) [#/Vol]Ordered By: Brissa Hoffman on 60-41-8674Dixhftzia (Bld) [#/Vol]0.1 10*3/uL0.0-0.2FRegency Hospital CompanyBasophils/100 WBC Auto (Bld) Ordered By: Brissa Hoffman on 64-12-1449Qkhdaoveq/100 WBC (Bld)1.0 %.[facility] HospitalCalcium [Mass/volume] in Serum or PlasmaOrdered By: Sharron Casey on 49-68-8271Dalnqwo [Mass/Vol]8.7 mg/dL8.6-10.3FRegency Hospital CompanyCarbon dioxide, total [Moles/volume] in Serum or PlasmaOrdered By: Sharron Casey on 47-31-7212WH2 [Moles/Vol]26.3 mmol/L21.0-31.0[facility] HospitalChloride [Moles/volume] in Serum or PlasmaOrdered By: Sharron Casey on 66-42-9022Rlmoxpuv [Moles/Vol]102 mmol/I18-700ShiufhgxiChillicothe Hospital Creatine kinase [Enzymatic activity/volume] in Serum or PlasmaOrdered By: Sharron Casey on 71-20-3478UJ [Catalytic activity/Vol]74 U/R45-574RqdonkwmlChillicothe HospitalCreatinine [Mass/volume] in Serum or PlasmaOrdered By: Sharron Casey on 51-59-6612Wcpxvgagvt [Mass/Vol]1.44 mg/dL0.60-1.20[facility] HospitalEosinophils Auto (Bld) [#/Vol]Ordered By: Brissa Hoffman on 06-23-2022 Eosinophils (Bld) [#/Vol]0.1 10*3/uL0.0-0.45[facility] Eosinophils/100 WBC Auto (Bld)Ordered By: Brissa Hoffman on 06-23-2022 Eosinophils/100 WBC (Bld)1.8 %.[facility] HospitalErythrocyte distribution width Auto (RBC) [Ratio]Ordered By: Brissa Hoffman on 06-23-2022 Erythrocyte distribution width (RBC) [Ratio]14.7 %11.9-15.3FRegency Hospital CompanyGlucose Glucometer (BldC) [Mass/Vol]Ordered By: Brissa Hoffman on 19-52-5970Ymvlboc [Mass/Vol]230 mg/dLChillicothe HospitalComment on above:Random Glucose Reference Range is dependent on time and content of last meal. Glucose of more than 200 mg/dL in a nonstressed, ambulatory subject supports the diagnosis of Diabetes Mellitus.Glucose [Mass/volume] in Serum or PlasmaOrdered By: Sharron Casey on 95-59-8587Wibovkg [Mass/Vol]255 mg/bY75-287 [facility] HospitalComment on above:ADA recommended reference rangeRandom Glucose Reference Range is dependent on time and content of last meal. Glucose of more than 200 mg/dL in a nonstressed, ambulatory subject supports the diagnosisof Diabetes Mellitus.Hematocrit Auto (Bld) [Volume fraction]Ordered By: Brissa Hoffman on 64-27-6230Syeicwnybd (Bld) [Volume fraction]41.2 %34.0-46.4FRegency Hospital CompanyHemoglobin [Mass/volume] in BloodOrdered By: Brissa Hoffman on 58-63-3628Ldazjbhyhp (Bld) [Mass/Vol]13.6 g/dL11.8-15.4FRegency Hospital CompanyLeukocytes [#/volume] corrected for nucleated erythrocytes in Blood by Automated coun Ordered By: Brissa Hoffman on 27-90-5408TWP corrected for nucl RBC Auto (Bld) [#/Vol]6.4 10*3/uL3.8-11.6FRegency Hospital CompanyLymphocytes Auto (Bld) [#/Vol]Ordered By: Brissa Hoffman on 68-83-1815Wsodalwczsp (Bld) [#/Vol] 1.6 10*3/uL1.00-4.8[facility] HospitalLymphocytes/100 WBC Auto (Bld)Ordered By: Brissa Hoffman on 29-94-1527Txqrxmhjzow/100 WBC (Bld)24.6 %. [facility] HospitalMCH Auto (RBC) [Entitic mass]Ordered By: Brissa Hoffman on 14-25-6177UXO (RBC) [Entitic mass]30.9 pg24.7-34.3FRegency Hospital CompanyMCHC Auto (RBC) [Mass/Vol]Ordered By: Brissa Hoffman on 41-73-6924XYYI (RBC) [Mass/Vol]33.0 g/dL32.0-35.0[facility] HospitalMCV Auto (RBC) [Entitic vol]Ordered By: Brissa Hoffman on 70-31-6268LWW (RBC) [Entitic vol]93.5 tQ44-289RhvxtaqtmChillicothe HospitalMonocytes Auto (Bld) [#/Vol]Ordered By: Brissa Hoffman on 95-12-3374Zpgrbcadh (Bld) [#/Vol]0.8 10*3/uL0.0-0.8[facility] HospitalMonocytes/100 WBC Auto (Bld) Ordered By: Brissa Hoffman on 12-36-1396Sfspmefax/100 WBC (Bld)12.9 %.[facility] HospitalNeutrophils Auto (Bld) [#/Vol]Ordered By: Brissa Hoffman on 44-67-4765Fpguuruqnim (Bld) [#/Vol]3.8 10*3/uL1.8-7.7FRegency Hospital CompanyNeutrophils/100 WBC Auto (Bld)Ordered By: Brissa Hoffman on 98-39-7016Isrykbqdwbs/100 WBC (Bld)59.7 %.[facility] No Panel InformationOrdered By: Sharron Casey on 89-56-3296Bobrmggnw GFR (CKD-EPI) 35.865 mL/MinChillicothe HospitalPharmacy Creatinine Clearance (Chem42.65[facility] HospitalNucleated erythrocytes [Presence] in Blood by Automated countOrdered By: Brissa Hoffman on 56-48-5473Llvbtyzbl RBC Auto Ql (Bld)0.0 /100{WBC}0-0.5FRegency Hospital CompanyPlatelet mean volume Auto (Bld) [Entitic vol]Ordered By: Brissa Hoffman on 69-29-2958Svelqlfj mean volume (Bld) [Entitic vol]10.2 fL6.3-10.7FRegency Hospital Company Platelets Auto (Bld) [#/Vol]Ordered By: Brissa Hoffman on 16-66-0642Qdpqouebr (Bld) [#/Vol]147 10*3/dW186-889EpmtgabrrChillicothe HospitalPotassium [Moles/volume] in Serum or PlasmaOrdered By: Sharron Casey on 49-78-6186Acbehzopy [Moles/Vol]4.2 mmol/L3.5-5.1FRegency Hospital CompanyRBC Auto (Bld) [#/Vol]Ordered By: Brissa Hoffman on 54-97-3907LUM (Bld) [#/Vol]4.41 10*6/uL 3.60-5.00[facility] Cancer Centererum or plasma anion gap determinationOrdered By: Sharron Casey on 02-25-8223Qplkd gap [Moles/Vol]10.9 mmol/L 6.0-15.0[facility] Cancer Centerodium [Moles/volume] in Serum or PlasmaOrdered By: Sharron Casey on 95-77-0617Lvoxkg [Moles/Vol]135 mmol/F854-780 [facility] HospitalTroponin I.cardiac [Mass/volume] in Serum or Plasma by Detection limit <= 0.01 ng/Ordered By: Sharron Casey on 63-13-3308Hyabhylz I.cardiac DL <= 0.01 ng/mL [Mass/Vol]65.3 pg/mL0.0-15.0[facility] HospitalComment on above:Critical Result : Called to and read back by: CHELY HERNADEZ at: 06/23/2022 10:49:30 by:Gissel nitrogen [Mass/volume] in Serum or PlasmaOrdered By: Sharron Casey on 95-44-2794Fwzi nitrogen [Mass/Vol]37 mg/dL7-25[facility] HospitalWBC Auto (Bld) [#/Vol]Ordered By: Brissa Hoffman on 60-03-4841QWI (Bld) [#/Vol]6.4 10*3/uL3.8-11.6FRegency Hospital CompanyAlanine aminotransferase [Enzymatic activity/volume] in Serum or PlasmaOrdered By: Marcela Cano on 63-63-7206FLO [Catalytic activity/Vol]13 U/L7-52[facility] HospitalAlbumin [Mass/volume] in Serum or Plasma by Bromocresol green (BCG) dye binding methoOrdered By: Marcela Cano on 54-34-0147Uknwcmu BCG dye [Mass/Vol]3.4 g/dL3.5-5.7FRegency Hospital CompanyAlkaline phosphatase [Enzymatic activity/volume] in Serum or PlasmaOrdered By: Marcela Cano on 60-08-8067DDX [Catalytic activity/Vol]74 U/L34-104 [facility] HospitalAspartate aminotransferase [Enzymatic activity/volume] in Serum or PlasmaOrdered By: Marcela Cano on 40-49-2592LWF [Catalytic activity/Vol]16 U/H31-78FyvexyvraChillicothe Hospital Bilirubin.total [Mass/volume] in Serum or PlasmaOrdered By: Marcela Cano on 44-07-6015Xhfzsqlza [Mass/Vol]0.7 mg/dL0.3-1.0[facility] Cholesterol [Mass/volume] in Serum or PlasmaOrdered By: Marcela Cano on 49-61-9684Sjctdzqvjhh [Mass/Vol]162 mg/wB068-067UrdhurszlChillicothe HospitalComment on above:Chol less than 200 mg/dl low riskChol 201-239 mg/dl borderline riskChol 240 mg/dl and greater high riskCholesterol in LDL Calc [Mass/Vol]Ordered By: Marcela Cano on 26-23-6840Ktxxjfcniiy in LDL [Mass/Vol] 105 mg/dL0-100[facility] HospitalComment on above:LDL ATP III CLASSIFICATIONLDL less than 100 mg/dL OptimalLDL 100-129 mg/dL Near or above cpwktxnSBW740-640 mg/dL Borderline highLDL 160-189 mg/dL HighLDL greater than 189 mg/dL Very highCholesterol in VLDL Calc [Mass/Vol]Ordered By: Marcela Cano on 06-85-2056Gltbrcpfpvg in VLDL [Mass/Vol]32 mg/dLChillicothe HospitalGlobulin Calc (S) [Mass/Vol]Ordered By: Marcela Cano on 34-62-1427Tmfcvret (S) [Mass/Vol]2.5 g/dLChillicothe Hospital Glucose mean value [Mass/volume] in Blood Estimated from glycated hemoglobin Ordered By: Marcela Cano on 72-57-9578Rfqubji glucose Estimated from glycated hemoglobin (Bld) [Mass/Vol]194 mg/dLChillicothe HospitalHemoglobin A1c percentageOrdered By: Marcela Cano on 90-17-5342JrU3i (Bld) [Mass fraction]8.4 %4.3-5.6FRegency Hospital CompanyComment on above:Increased risk for diabetes: 5.7 - 6.4diabetes: >6.4glycemic control for adults with diabetes: <7.0Lactate [Moles/volume] in Serum or PlasmaOrdered By: Marcela Cano on 18-00-2629Oovdymn [Moles/Vol]1.2 mmol/L0.5-2.2FRegency Hospital CompanyNatriuretic peptide B [Mass/Vol]Ordered By: Marcela Cano on 65-55-8019Fmdfiytszqf peptide B (Bld) [Mass/Vol]507.0 pg/mL5-100[facility] HospitalNo Panel InformationOrdered By: Toi Johnson on 38-71-7410Mlrbdko Glucose CommentGlu2: cleaned meterChillicothe HospitalProtein [Mass/volume] in Serum or PlasmaOrdered By: Marcela Cano on 77-98-8840Bofurfr [Mass/Vol]5.9 g/dL6.4-8.9[facility] Serum or plasma albumin/globulin mass ratioOrdered By: Marcela Cano on 56-80-0572Mmwlgfa/Globulin [Mass ratio]1.4 {ratio}[facility] Cancer Centererum or plasma high density lipoprotein (HDL) cholesterol measurement Ordered By: Marcela Cano on 86-54-2615Juwacupyaxp in HDL [Mass/Vol]25 mg/dL 35-85[facility] HospitalComment on above:HDL CHOL ATP-III CLASSIFICATION Cardiovascular RiskHDL > or equal to 60 mg/dL LOWHDL < 40 mg/dL HIGHSerum or plasma total cholesterol/high density lipoprotein (HDL) cholesterol mass ratOrdered By: Marcela Cano on 23-15-6420Eiwxnlyrtos.total/Cholesterol in HDL [Mass ratio]6.5 {ratio}<5.0[facility] HospitalTROPONIN, HIGH SENSITIVITYon 40-59-0819LRVLAA661.9 pg/mLCritically high4.0-51.3The [facility]ike Medical CenterComment on above:Result Comment: CUT-OFF POINTS HAVE BEEN ESTABLISHED BASED ON THE FOURTH UNIVERSAL DEFINITIONS OF MYOCARDIAL INFARCTION. THE UPPER REFERENCE LIMIT (URL) OF TROPONIN, DEFINED THE 99TH PERCENTILE OF cTnI DISTRIBUTION IN A REFERENCE POPULATION, HAS BEEN CONFIRMED THE DECISION THRESHOLD FOR NM DIAGNOSIS.Performed By: #### URTPCR #### [facility] [address] [place] [address] Dr. Shilpa BeardTriglyceride [Mass/volume] in Serum or PlasmaOrdered By: Marcela Cano on 27-54-1430Yhfbhrsgxugl [Mass/Vol]160 mg/dL0-149Chillicothe HospitalComment on above:TRIG ATP III CLASSIFICATIONTRIG less than 150 mg/dL NormalTRIG 150-199 mg/dL Borderline highTRIG 200-500 mg/dL High TRIG greater than 500 mg/dL Very highStandard traceable to the Center for Disease Co nrtrol and Prevention ([facility]) test method.AMYLASEon 40-00-9352Exgsxhe [Catalytic activity/Vol]41 U/XScailv30-317Omd [facility] Medical CenterComment on above:Performed By: #### ALLISON PEREZ #### [facility] [address] [address] [address] Shilpa MurilloC AUTO DIFFon 07-23-2448HQEV #0.1 103/ulNormal0.0-0.1The [facility] CenterComment on above:Performed By: #### CBC #### [facility] [address] [place] [address] Dr. Shilpa BeardBasophils/100 WBC (Bld)0.4 %Normal0.2-2.0The [facility] Comment on above:Performed By: #### CBC #### [facility] [address] [address] [address] Shilpa James #0.0 103/ulNormal0.0-0.7The [facility] CenterComment on above: Performed By: #### CBC #### [facility] [address] [address] [address] Shilpa Garzonosinophils/100 WBC (Bld)0.1 %Critically low0.9-7.0The [facility] CenterComment on above:Performed By: #### CBC #### [facility] [address] [address] [address] Shilpa Garzonrythrocyte distribution width (RBC) [Ratio]13.4 %Awbaoi09.0-15.0 The [facility] CenterComment on above:Performed By: #### CBC #### [facility] [address] [place] [address] Dr. Shilpa BeardHematocrit (Bld) [Volume fraction]46.1 %Xiagrc16.0-48.0The [facility] CenterComment on above:Performed By: #### CBC #### [facility] [address] [address] [address] Shilpa BeardHemoglobin (Bld) [Mass/Vol]15.6 g/xNVbixou39.0-16.0The [facility] CenterComment on above:Performed By: #### CBC #### [facility] [address] [address] [address] Shilpa Alexander #0.07 10e3/ulCritically high0.00-0.03The [facility] Comment on above:Performed By: #### CBC #### [facility] [address] [address] [address] Shilpa Alexander %0.4 %Normal0.0-0.5The [facility] CenterComment on above: Performed By: #### CBC #### [facility] [address] [address] [address] Shilpa Kothari #0.7 103/ulCritically low1.2-3.8The [facility] Comment on above:Performed By: #### CBC #### [facility] [address] [address] [address] Shilpa Garciahocytes/100 WBC (Bld)4.4 %Critically low20.5-60.0The [facility] CenterComment on above:Performed By: #### CBC #### [facility] [address] [address] [address] Shilpa MinaUAL DIFF REQNONormalThe [facility] CenterComment on above: Performed By: #### CBC #### [facility] [address] [address] [address] Shilpa Wolf (RBC) [Entitic mass]30.8 yaWokjuu98.7-34.0The [facility] CenterComment on above:Performed By: #### CBC #### [facility] [address] [address] [address] Shilpa Wolf (RBC) [Mass/Vol]33.8 g/qEPvwrtp25.9-35.2The [facility] HospitalComment on above:Performed By: #### CBC #### [facility] [address] [address] [address] Sihlpa Day (RBC) [Entitic vol]90.9 aEXtpwzz47.0-99.0The [facility] CenterComment on above:Performed By: #### CBC #### [facility] [address] [place] [address] Dr. Shilpa Oswald #0.9 103/ulCritically high0.3-0.8The [facility] Comment on above:Performed By: #### CBC #### [facility] [address] [place] [address] Dr. Shilpa Chatterjeeocytes/100 WBC (Bld)5.6 %Normal1.7-12.0[facility] Comment on above:Performed By: #### CBC #### [facility] [address] [place] [address] Dr. Shilpa Pelletier #14.5 103/ulCritically high1.4-6.5ThOhioHealth Dublin [facility] Comment on above:Performed By: #### CBC #### [facility] [address] [place] [address] Dr. Shilpa Gonzalesutrophils/100 WBC (Bld)89.1 %Critically high43.0-75.0The [facility] CenterComment on above:Performed By: #### CBC #### [facility] [address] [place] [address] Dr. Shilpa Deleonlet mean volume (Bld) [Entitic vol]11.6 fLNormal9.5-13.5The [facility] CenterComment on above:Performed By: #### CBC #### [facility] [address] [place] [address] Dr. Shilpa BeardPLT176 103/diSmdsip184-291Rke [facility] Medical CenterComment on above: Performed By: #### CBC #### [facility] [address] [place] [address] Dr. Shilpa BeardRBC5.07 106/ulNormal4.20-5.40The [facility] CenterComment on above:Performed By: #### CBC #### [facility] [address] [address] [address] Shilpa BeardWBC16.2 103/ulCritically high4.0-11.0The [facility] CenterComment on above:Performed By: #### CBC #### [facility] [address] [address] [address] Shilpa BeardCT ABD/PELVIS WO CONon [id number] ABD/PELVIS WO CONEXAMINATION: CT ABD/PELVIS WO CON, [...] authenticated by: JENNIFER SWIFT Date: 2022-06-21 21:52NormalThe [facility] HospitalCULTURE URINEon 48-99-9193CAMRJUT URINECulture Observations: NO GROWTH.NormalThe [facility] CenterComment on above:Performed By: #### LIPA, ALLISON #### [facility] [address] [address] [address] Shilpa Chicas-19 PCR (CVDTB)on 73-11-3875TOAU-CoV-2 (COVID-19) RNA COLIN+probe Ql (Unsp spec)Not detectedNormalNOT DETECTEDRegency Hospital [place] Comment on above:Result Comment: When diagnostic testing [...] for this test is supported by the [place] [employer]'s declaration that [...] longer be used).Performed By: #### CVDTBH #### [facility] [address] [place] [address] Dr. Shilpa Vazquez URINE PROFILEon 22-00-4714Vwivmnsqw Ql (U)NegativeNormal NEGATIVERegency Hospital ToledoComment on above:Performed By: #### URTPCR #### [facility] [address] [place] [address] Dr. Shilpa Noguera (U)CLEARNormalCLEARRegency Hospital ToledoComment on above: Performed By: #### URTPCR #### [facility] [address] [place] [address] Dr. Shilpa Obregon (U)LT. YELLOWNormalYELLOWRegency Hospital ToledoComment on above:Performed By: #### URTPCR #### [facility] [address] [place] [address] Dr. Shilpa Perez micrscopic examination will be performed if indicated. NormalThe [facility] Medical CenterComment on above:Performed By: #### URTPCR #### [facility] [address] [address] [address] Shilpa BeardGlucose Ql (U)250 mg/dlAbnormalNEGATIVEThe [facility] on above:Performed By: #### URTPCR #### [facility] [address] [place] [address] Dr. Shilpa BeardHemoglobin Ql (U)TRACE-INTACTAbnormalNEGATIVERegency Hospital ToledoComment on above:Performed By: #### URTPCR #### [facility] [address] [place] [address] Dr. Shilpa Easonones Ql (U)NegativeNormalNEGATIVEThe [facility] HospitalComment on above:Performed By: #### URTPCR #### [facility] [address] [place] [address] Dr. Shilpa BeardLEUKOCYTESNegativeNormalNEGATIVERegency Hospital ToledoComment on above:Performed By: #### URTPCR #### [facility] [address] [place] [address] Dr. Shilpa BeardNitrite Ql (U)NegativeNormalNEGATIVERegency Hospital ToledoComment on above:Performed By: #### URTPCR #### [facility] [address] [place] [address] Dr. Shilpa BeardpH (U)5.0 [pH]Normal5-9Reg[facility] Hospital ToledoComment on above: Performed By: #### URTPCR #### [facility] [address] [place] [address] Dr. Shilpa BeardProtein (U) [Mass/Vol]100 mg/dLAbnormalNEGATIVE/ TRACEThe [facility] HospitalComment on above:Performed By: #### URTPCR #### [facility] [address] [place] [address] Dr. Shilpa BeardSPEC GRAVITY1.121Bgkowm5.005-<=1.025The [facility] Medical CenterComment on above:Performed By: #### URTPCR #### [facility] [address] [place] [address] Dr. Shilpa Xiong MICRO INDINDICATEDNormalThe Galion Hospitalment on above: Performed By: #### URTPCR #### [facility] [address] [place] [address] Dr. Shilpa Hudson Qn (U)0.2 {Jacklyn'U}/dLNormal0.2 - 1.0The [facility] on above:Performed By: #### URTPCR #### [facility] [address] [place] [address] Dr. Shilpa Jainon 90-24-6075Xrkogt [Catalytic activity/Vol]80.0 U/LNormal 73.0-393.0The [facility] on above:Performed By: #### ALLISON PEREZ #### [facility] [address] [place] [address] Dr. Shilpa Ritchiease [Catalytic activity/Vol]82.0 U/JSeoqcd56.0-393.0The [facility] on above:Performed By: #### URTPCR #### [facility] [address] [place] [address] Dr. Shilpa Magaña 14(COMP METB)on 76-29-4160Ouoevfd [Mass/Vol]3.3 g/dL Critically low3.4-5.0The [facility] on above:Performed By: #### URTPCR #### [facility] [address] [place] [address] Dr. Shilpa BeardAlbumin/Globulin [Mass ratio]0.8 {ratio}NormalThe [facility] on above:Performed By: #### URTPCR #### [facility] [address] [place] [address] Dr. Shilpa MonteiroP [Catalytic activity/Vol]114 U/CWbavgd00-107Qhf [facility] on above:Performed By: #### URTPCR #### [facility] [address] [place] [address] Dr. Shilpa Givens [Catalytic activity/Vol]18 U/XUnawod44-49Ecy [facility] on above:Performed By: #### URTPCR #### [facility] [address] [address] [address] Shilpa BeardAnion gap [Moles/Vol]18.4 mmol/LNormalRegency Hospital [place] Comment on above:Performed By: #### URTPCR #### [facility] [address] [address] [address] Shilpa BeardAST [Catalytic activity/Vol]22 U/CBsdieg70-65Zcv [facility] CenterComment on above:Performed By: #### URTPCR #### [facility] [address] [address] [address] Shilpa BeardBilirubin [Mass/Vol]0.6 mg/dLNormal0.2-1.0The [facility] Comment on above:Performed By: #### URTPCR #### [facility] [address] [place] [address] Dr. Shilpa BeardCalcium [Mass/Vol]8.9 mg/dLNormal8.5-10.1[facility] Comment on above:Performed By: #### URTPCR #### [facility] [address] [address] [address] Shilpa BeardChloride [Moles/Vol]100 mmol/AUwhtev55-948PkiRegency Hospital [place] Comment on above:Performed By: #### URTPCR #### [facility] [address] [address] [address] Shilpa BeardCO2 [Moles/Vol]22.2 mmol/EUbzvyj80.0-32.0The [facility] Comment on above:Performed By: #### URTPCR #### [facility] [address] [address] [address] Shilpa BeardCreatinine [Mass/Vol]1.80 mg/dLCritically high0.55-1.02The [facility] CenterComment on above:Performed By: #### URTPCR #### [facility] [address] [address] [address] Massey ChangEGFR-AF XRIISZYN15 mL/min/1.33j7Wfksxtutss low>=60The [facility] CenterComment on above:Performed By: #### URTPCR #### [facility] [address] [address] [address] Shilpa GarzonGFR-NON AF IPYHAJJG84 mL/min/1.16f7Axacjzglof low>=60The [facility] CenterComment on above:Performed By: #### URTPCR #### [facility] [address] [address] [address] Shilpa BeardGlobulin (S) [Mass/Vol]4.0 g/dLNormalThOhioHealth Dublin Methodist HospitalComment on above:Performed By: #### URTPCR #### [facility] [address] [address] [address] Shilpa BeardGlucose [Mass/Vol]277 mg/dLCritically ifvd67-860Ipw [facility] CenterComment on above:Performed By: #### URTPCR #### [facility] [address] [address] [address] Shilpa BeardPotassium [Moles/Vol]4.6 mmol/LNormal3.5-5.1The [facility] Comment on above:Performed By: #### URTPCR #### [facility] [address] [address] [address] Shilpa BeardProtein [Mass/Vol]7.3 g/dLNormal6.4-8.2[facility] Comment on above:Performed By: #### URTPCR #### [facility] [address] [address] [address] Shilpa BeardSodium [Moles/Vol]136 mmol/DWabffv731-553OlnRegency Hospital [place] Comment on above:Performed By: #### URTPCR #### [facility] [address] [address] [address] Shilpa BeardUrea nitrogen [Mass/Vol]35.0 mg/dLCritically high7.0-18.0The [facility] CenterComment on above:Performed By: #### URTPCR #### [facility] [address] [address] [address] Shilpa BeardUrea nitrogen/Creatinine [Mass ratio]19.4 mg/mgNoUNC Health Pardeeue HospitalComment on above:Performed By: #### URTPCR #### [facility] [address] [place] [address] Dr. Shilpa Ashley, [facility] SENSITIVITYon 69-45-5567YVFAYV564.4 pg/mL Critically high4.0-51.3TAdena Regional Medical CenterComrehabilitation institute of [place] on above:Result Comment: CUT-OFF POINTS HAVE BEEN ESTABLISHED BASED ON THE FOURTH UNIVERSAL DEFINITIONS OF MYOCARDIAL INFARCTION. THE UPPER REFERENCE LIMIT (URL) OF TROPONIN, DEFINED THE 99TH PERCENTILE OF cTnI DISTRIBUTION IN A REFERENCE POPULATION, HAS BEEN CONFIRMED THE DECISION THRESHOLD FOR NM DIAGNOSIS.Performed By: #### HSTROPN #### [facility] [address] [place] [address] Dr. Shilpa BeardHSTROP103.3 pg/mLCritically high4.0-51.3TAdena Regional Medical Center Comment on above:Result Comment: CUT-OFF POINTS HAVE BEEN ESTABLISHED BASED ON THE FOURTH UNIVERSAL DEFINITIONS OF MYOCARDIAL INFARCTION. THE UPPER REFERENCE LIMIT (URL) OF TROPONIN, DEFINED THE 99TH PERCENTILE OF cTnI DISTRIBUTION IN A REFERENCE POPULATION, HAS BEEN CONFIRMED THE DECISION THRESHOLD FOR NM DIAGNOSIS.Performed By: #### URTPCR #### [facility] [address] [place] [address] Dr. Shilpa Pérez 80-77-9192UNQLGWZDB CRYSTALSFEThe Jewish HospitalComrehabilitation institute of [place] on above:Performed By: #### URTPCR #### [facility] [address] [place] [address] Dr. Shilpa AngelALLAbnoMemorial Health System [facility] on above:Performed By: #### URTPCR #### [facility] [address] [place] [address] Dr. Shilpa Elizabeth identified Cx Nom (U)INDICATEDSelect Medical OhioHealth Rehabilitation Hospital - DublinComrehabilitation institute of [place] on above:Performed By: #### URTPCR #### [facility] [address] [place] [address] Dr. Shilpa CohenormalLUIS CARLOS SEENRegency Hospital ToledoComrehabilitation institute of [place] on above: Performed By: #### URTPCR #### [facility] [address] [place] [address] Dr. Shilpa Suhystals LM Nom (Urine sed)SEENAbnormalNONE SEENRegency Hospital ToledoComrehabilitation institute of [place] on above:Performed By: #### URTPCR #### [facility] [address] [place] [address] Dr. Massey ChangEmiguelthelial cells LM Ql (Urine sed)FEWAbnormalNONE SEEN /RAREThe [facility] CenterComrehabilitation institute of [place] on above:Performed By: #### URTPCR #### [facility] [address] [place] [address] Dr. Shilpa DawsonALINE CASTFEWNoUniversity Hospitals Cleveland Medical CenterComrehabilitation institute of [place] on above: Performed By: #### URTPCR #### [facility] [address] [place] [address] Dr. Shilpa BeardMUCOUSNONE SEENNormalNONE SEENRegency Hospital ToledoComrehabilitation institute of [place] on above:Performed By: #### URTPCR #### [facility] [address] [place] [address] Dr. Shilpa BeardKiaesEKA6-4Hbxmiogv4-9Qth [facility] on above:Performed By: #### URTPCR #### [facility] [address] [place] [address] Dr. Shilpa eBardWBCNONE SEENNormalNONE SEENTriHealth McCullough-[facility]de [facility] on above: Performed By: #### URTPCR #### [facility] [address] [place] [address] Dr. Shilpa BeardXR CHEST 1 Von [id number] CHEST 1 VEXAM: XR CHEST 1 V [...] Electronically authenticated by: LAURENCE RAJPUT Date: 2022-06-21 17:15NormalRegency Hospital ToledoGLYCOHEMOGLOBIN A1Con 70-71-9912ZQY RECOMMENDATIONSEE BELOW NormalRegency Hospital ToledoComment on above:Result Comment: ADA RECOMMENDED LIMIT 4.0 - 6.0 ADA THERAPEUTIC TARGET < 7.0 ACTION SUGGESTED > 7.0Performed By: #### A1C #### [facility] [address] [address] [address] Shilpa BeardGlucose [Mass/Vol]174 mg/dLNormalThe [facility] CenterComment on above:Performed By: #### A1C #### [facility] [address] [place] [address] Dr. Shilpa BeardHbA1c (Bld) [Mass fraction]7.7 %Critically high4.5-6.2The [facility] CenterComment on above:Performed By: #### A1C #### [facility] [address] [address] [address] Shilpa BeardPROF CHEM 8 (BAS METB)on 96-94-7214Jsxhp gap [Moles/Vol]13.6 mmol/LNormalRegency Hospital ToledoComment on above:Performed By: #### BMP #### [facility] [address] [address] [address] Shilpa BeardCalcium [Mass/Vol]9.6 mg/dLNormal8.5-10.1[facility] Comment on above:Performed By: #### BMP #### [facility] [address] [address] [address] Shilpa BeardChloride [Moles/Vol]103 mmol/BRrgygq34-185Omi [facility] Comment on above:Performed By: #### BMP #### [facility] [address] [place] [address] Dr. Shilpa BeardCO2 [Moles/Vol]26.1 mmol/ZLbhmdy20.0-32.0The [facility] Comment on above:Performed By: #### BMP #### [facility] [address] [address] [address] Shilpa BeardCreatinine [Mass/Vol]1.30 mg/dLCritically high0.55-1.02The [facility] CenterComment on above:Performed By: #### BMP #### [facility] [address] [address] [address] Massey ChangEGFR-AF RELLCVKI61 mL/min/1.68b5Amnjeejnsy low>=60The [facility] CenterComment on above:Performed By: #### BMP #### [facility] [address] [address] [address] Shilpa GarzonGFR-NON AF CXLKAXJI30 mL/min/1.36e6Irnlqfbvaz low>=60The [facility] CenterComment on above:Performed By: #### BMP #### [facility] [address] [address] [address] Shilpa BeardGlucose [Mass/Vol]219 mg/dLCritically rnaq83-972Mgo [facility] CenterComment on above:Performed By: #### BMP #### [facility] [address] [address] [address] Shilpa BeardPotassium [Moles/Vol]4.7 mmol/LNormal3.5-5.1The [facility] Comment on above:Performed By: #### BMP #### [facility] [address] [address] [address] Shilpa BeardSodium [Moles/Vol]138 mmol/BKsciui407-859Hsw [facility] Comment on above:Performed By: #### BMP #### [facility] [address] [address] [address] Shilpa BeardUrea nitrogen [Mass/Vol]37.0 mg/dLCritically high7.0-18.0The [facility] CenterComment on above:Performed By: #### BMP #### [facility] [address] [address] [address] Shilpa BeardUrea nitrogen/Creatinine [Mass ratio]28.5 mg/mgNormalThe [facility] CenterComment on above:Performed By: #### BMP #### [facility] [address] [place] [address] Dr. Shilpa BeardPROF CHEM 8 (BAS METB)on 98-53-9634Ipbvx gap [Moles/Vol]15.2 mmol/LNormalThe [facility] CenterComment on above:Performed By: #### LIPA, ALLISON #### [facility] [address] [place] [address] Dr. Shilpa BeardCalcium [Mass/Vol]8.7 mg/dLNormal8.5-10.1The [facility] Comment on above:Performed By: #### LIPA, ALLISON #### [facility] [address] [place] [address] Dr. Shilpa BeardChloride [Moles/Vol]102 mmol/XDgwfrb41-938Jvw [facility] Comment on above:Performed By: #### LIPA, ALLISON #### [facility] [address] [place] [address] Dr. Shilpa BeardCO2 [Moles/Vol]22.8 mmol/ADszver10.0-32.0The [facility] Comment on above:Performed By: #### LIPA, ALLISON #### [facility] [address] [place] [address] Dr. Shilpa BeardCreatinine [Mass/Vol]1.32 mg/dLCritically high0.55-1.02The [facility] CenterComment on above:Performed By: #### LIPA, ALLISON #### [facility] [address] [place] [address] Dr. Shilpa GarzonGFR-AF CWCOCLQB02 mL/min/1.24g7Ugnxswqwlg low>=60The [facility] CenterComment on above:Performed By: #### LIPA, ALLISON #### [facility] [address] [place] [address] Dr. Shilpa GarzonGFR-NON AF RBCEHTOS41 mL/min/1.85o5Dclzjgestg low>=60The [facility] CenterComment on above:Performed By: #### LIPA, ALLISON #### [facility] [address] [place] [address] Dr. Shilpa BeardGlucose [Mass/Vol]168 mg/dLCritically bpwn62-320Any [facility] CenterComment on above:Performed By: #### ANA, ALLISON #### [facility] [address] [place] [address] Dr. Shilpa BeardPotassium [Moles/Vol]5.0 mmol/LNormal3.5-5.1[facility] Comment on above:Performed By: #### ANA, ALLISON #### [facility] [address] [address] [address] Shilpa BeardSodium [Moles/Vol]135 mmol/LCritically syb777-601Jmj [facility] CenterComment on above:Performed By: #### ANA, ALLISON #### [facility] [address] [place] [address] Dr. Shilpa BeardUrea nitrogen [Mass/Vol]38.0 mg/dLCritically high7.0-18.0The [facility] CenterComment on above:Performed By: #### ANA, ALLISON #### [facility] [address] [place] [address] Dr. Shilpa Contreras nitrogen/Creatinine [Mass ratio]28.8 mg/mgNormalThe [facility] CenterComment on above:Performed By: #### ANA, ALLISON #### [facility] [address] [place] [address] Dr. Shilap Farrell AUTO DIFFon [id number] #0.1 103/ulNormal0.0-0.1The [facility] CenterComment on above:Performed By: #### ANA, ALLISON #### [facility] [address] [place] [address] Dr. Shilpa BeardBasophils/100 WBC (Bld)1.0 %Normal0.2-2.0[facility] Comment on above:Performed By: #### ANA, ALLISON #### [facility] [address] [place] [address] Dr. Massey ChangEO #0.2 103/ulNormal0.0-0.7The [facility] CenterComment on above: Performed By: #### LIPA, ALLISON #### [facility] [address] [place] [address] Dr. Shilpa Garzonosinophils/100 WBC (Bld)1.8 %Normal0.9-7.0The [facility] Comment on above:Performed By: #### LIPA, ALLISON #### [facility] [address] [place] [address] Dr. Shilpa Garzonrythrocyte distribution width (RBC) [Ratio]13.3 %Upnorp81.0-15.0 The [facility] CenterComment on above:Performed By: #### LIPA, ALLISON #### [facility] [address] [place] [address] Dr. Shilpa BeardHematocrit (Bld) [Volume fraction]46.5 %Qemvad87.0-48.0The [facility] CenterComment on above:Performed By: #### LIPA, ALLISON #### [facility] [address] [place] [address] Dr. Shilpa BeardHemoglobin (Bld) [Mass/Vol]15.1 g/wSQjnauy63.0-16.0The [facility] CenterComment on above:Performed By: #### LIPLuna, ALLISON #### [facility] [address] [place] [address] Dr. Shilpa Alexander #0.06 10e3/ulCritically high0.00-0.03The [facility] Comment on above:Performed By: #### LIPA, ALLISON #### [facility] [address] [place] [address] Dr. Shilpa Alexander %0.7 %Critically high0.0-0.5The [facility] Medical CenterComment on above:Performed By: #### LIPA, ALLISON #### [facility] [address] [place] [address] Dr. Shilpa Kothari #2.9 103/ulNormal1.2-3.8The [facility] CenterComment on above:Performed By: #### LIPA, ALLISON #### [facility] [address] [place] [address] Dr. Shilpa Leighmphocytes/100 WBC (Bld)35.4 %Mtangw17.5-60.0The [facility] CenterComment on above:Performed By: #### ANA, ALLISON #### [facility] [address] [place] [address] Dr. Shilpa George DIFF REQNONormalThe [facility] CenterComment on above: Performed By: #### ANA, ALLISON #### [facility] [address] [place] [address] Dr. Shilpa BeardJOHN [facility]. [facility] (RBC) [Entitic mass]29.8 mzXarvxu32.7-34.0The [facility] CenterComment on above:Performed By: #### ANA, ALLISON #### [facility] [address] [place] [address] Dr. Shilpa Wolf (RBC) [Mass/Vol]32.5 g/gVXlaunw80.9-35.2The [facility] CenterComment on above:Performed By: #### ANA, ALLISON #### [facility] [address] [place] [address] Dr. Shilpa Wolf (RBC) [Entitic vol]91.9 aTLithko89.0-99.0The [facility] CenterComment on above:Performed By: #### ANA, ALLISON #### [facility] [address] [place] [address] Dr. Shilpa Oswald #0.8 103/ulNormal0.3-0.8The [facility] CenterComment on above:Performed By: #### ANA, ALLISON #### [facility] [address] [place] [address] Dr. Shilpa Chatterjeeocytes/100 WBC (Bld)9.9 %Normal1.7-12.0The [facility] Comment on above:Performed By: #### ANA, ALLISON #### [facility] [address] [place] [address] Dr. Shilpa Pelletier #4.2 103/ulNormal1.4-6.5The [facility] CenterComment on above:Performed By: #### LIPLuna, ALLISON #### [facility] [address] [place] [address] Dr. Shilpa Gonzalesutrophils/100 WBC (Bld)51.2 %Zgyrqw27.0-75.0The [facility] CenterComment on above:Performed By: #### LIPLuna, ALLISON #### [facility] [address] [place] [address] Dr. Shilpa BeardPlatelet mean volume (Bld) [Entitic vol]11.1 fLNormal9.5-13.5The [facility] CenterComment on above:Performed By: #### LIPLuna, ALLISON #### [facility] [address] [place] [address] Dr. Shilpa BeardPLT263 103/xrExkfgr953-463Hjj [facility] on above: Performed By: #### LIPLuna, ALLISON #### [facility] [address] [place] [address] Dr. Shilpa BeardRBC5.06 106/ulNormal4.20-5.40The [facility] CenterComrehabilitation [facility] [place] on above:Performed By: #### ANA, ALLISON #### [facility] [address] [place] [address] Dr. Shilpa BeardWBC8.1 103/ulNormal4.0-11.0[facility] on above: Performed By: #### LIPA, ALLISON #### [facility] [address] [place] [address] Dr. Shilpa BeardGLYCOHEMOGLOBIN A1Con 43-08-0013RNU RECOMMENDATIONADA THERAPEUTIC TARGET 6.0 - 7.0 ACTION SUGGESTED > 7.0NoUniversity Hospitals Cleveland Medical CenterComment on above:Performed By: #### URTPCR #### [facility] [address] [place] [address] Dr. Shilpa BeardGlucose [Mass/Vol]186 mg/dLNoUniversity Hospitals Cleveland Medical CenterComrehabilitation institute of [place] on above:Performed By: #### URTPCR #### [facility] [address] [place] [address] Dr. Shilpa BeardHbA1c (Bld) [Mass fraction]8.1 %Critically high<=6.0The [facility] on above:Performed By: #### URTPCR #### [facility] [address] [place] [address] Dr. Shilpa Joy PROFILEon 70-88-5607ZIER-HDL RATIO NORMSEE [facility] on above:Result Comment: 3.3 - 4.4 LOW RISK 4.4 - 7.1 AVERAGE RISK 7.1 - 11.0 MODERATE RISK >11.0 HIGH RISKPerformed By: #### LIPID, URIC, TSH, CMP #### [facility] [address] [place] [address] Dr. Shilpa Lazaresterol [Mass/Vol]223 mg/dLCritically high<=200The [facility] on above:Performed By: #### LIPID, URIC, TSH, CMP #### [facility] [address] [place] [address] Dr. Shilpa Sanol in HDL [Mass/Vol]31 mg/dLCritically ljh04-15WryTriHealth McCull[facility] on above:Performed By: #### LIPID, URIC, TSH, CMP #### [facility] [address] [place] [address] Dr. Shilpa Lazaresterclaudine in LDL [Mass/Vol]143.6 mg/dLSelect Medical OhioHealth Rehabilitation Hospital - DublinComrehabilitation institute of [place] on above:Performed By: #### LIPID, URIC, TSH, CMP #### [facility] [address] [place] [address] Dr. Shilpa Cabral.total/Cholesterol in HDL [Mass ratio]7.2 {ratio} NormalTriHealth McCull[facility] on above:Performed By: #### LIPID, URIC, TSH, CMP #### [facility] [address] [place] [address] Dr. Shilpa Robertson NORMAL> or = 60 mg/dl - LOW CARDIOVASCULAR RISK <40 mg/dl - HIGH CARDIOVASCULAR RISKMercy Health Defiance Hospital on above:Performed By: #### LIPID, URIC, TSH, CMP #### [facility] [address] [place] [address] Dr. Shilpa Cordero CALC NORMALSEE BELOWSelect Medical OhioHealth Rehabilitation Hospital - DublinComment on above:Result Comment: <100 mg/dl OPTIMAL 100 - 129 mg/dl NEAR OR ABOVE OPTIMAL 130 - 159 mg/dl BORDERLINE HIGH 160 - 189 mg/dl HIGH >190 mg/dl VERY HIGH Performed By: #### LIPID, URIC, TSH, CMP #### [facility] [address] [place] [address] Dr. Shilpa BeardTriglyceride [Mass/Vol]242 mg/dLCritically high<=150The [facility] CenterComrehabilitation institute [facility] [place] on above:Performed By: #### LIPID, URIC, TSH, CMP #### [facility] [address] [place] [address] Dr. Shilpa BeardVLDL CALC48.4 mg/dLSelect Medical OhioHealth Rehabilitation Hospital - DublinComment on above: Performed By: #### LIPID, URIC, TSH, CMP #### [facility] [address] [place] [address] Dr. Shilpa BeardPROF 14(COMP METB)on 11-96-2115Txxwtox [Mass/Vol]3.2 g/dL Critically low3.4-5.0The [facility] CenterComrehabilitation institute of [place] on above:Performed By: #### URTPCR #### [facility] [address] [place] [address] Dr. Shilpa BeardAlbumin/Globulin [Mass ratio]0.7 {ratio}NormalThe [facility] CenterComrehabilitation institute of [place] on above:Performed By: #### URTPCR #### [facility] [address] [place] [address] Dr. Shilpa Horowitz [Catalytic activity/Vol]99 U/VVzqlnw28-019Hbq [facility] on above:Performed By: #### URTPCR #### [facility] [address] [place] [address] Dr. Shilpa Givens [Catalytic activity/Vol]42 U/MDdbdug33-74Fwj [facility] on above:Performed By: #### URTPCR #### [facility] [address] [place] [address] Dr. Shilpa Peraltaon gap [Moles/Vol]13.1 mmol/LNormalRegency Hospital [place] Comment on above:Performed By: #### URTPCR #### [facility] [address] [address] [address] Shilpa BeardAST [Catalytic activity/Vol]53 U/LCritically dibe97-72Fgy [facility] CenterComment on above:Performed By: #### URTPCR #### [facility] [address] [address] [address] Shilpa BeardBilirubin [Mass/Vol]0.5 mg/dLNormal0.2-1.3TAdena Regional Medical Center Comment on above:Performed By: #### URTPCR #### [facility] [address] [place] [address] Dr. Shilpa BeardCalcium [Mass/Vol]8.8 mg/dLNormal8.5-10.1[facility] Comment on above:Performed By: #### URTPCR #### [facility] [address] [place] [address] Dr. Shilpa BeardChloride [Moles/Vol]100 mmol/CIouffv15-676ThgRegency Hospital [place] Comment on above:Performed By: #### URTPCR #### [facility] [address] [place] [address] Dr. Shilpa BeardCO2 [Moles/Vol]26.7 mmol/FBolqmv71.0-30.0[facility] Comment on above:Performed By: #### URTPCR #### [facility] [address] [place] [address] Dr. Shilpa BeardCreatinine [Mass/Vol]1.24 mg/dLCritically high0.52-1.04The [facility] CenterComment on above:Performed By: #### URTPCR #### [facility] [address] [place] [address] Dr. Massey ChangEGFR-AF QGBDEJUP23 mL/min/1.35r2Euxhqqqfbo low>=60The [facility] CenterComment on above:Performed By: #### URTPCR #### [facility] [address] [address] [address] Shilpa GarzonGFR-NON AF KIHMBHBP54 mL/min/1.31f7Nvopozselr low>=60The [facility] CenterComment on above:Performed By: #### URTPCR #### [facility] [address] [address] [address] Shilpa BeardGlobulin (S) [Mass/Vol]4.5 g/dLNormOur Lady of Mercy Hospital - AndersonComment on above:Performed By: #### URTPCR #### [facility] [address] [address] [address] Shilpa BeardGlucose [Mass/Vol]193 mg/dLCritically hati44-181Hyf [facility] CenterComment on above:Performed By: #### URTPCR #### [facility] [address] [place] [address] Dr. Shilpa BeardPotassium [Moles/Vol]4.8 mmol/LNormal3.4-5.0The [facility] Comment on above:Performed By: #### URTPCR #### [facility] [address] [address] [address] Shilpa BeardProtein [Mass/Vol]7.7 g/dLNormal6.1-8.2The [facility] Comment on above:Performed By: #### URTPCR #### [facility] [address] [place] [address] Dr. Shilpa BeardSodium [Moles/Vol]135 mmol/LCritically mts047-292Prj [facility] CenterComment on above:Performed By: #### URTPCR #### [facility] [address] [address] [address] Shilpa BeardUrea nitrogen [Mass/Vol]30.0 mg/dLCritically high7.0-18.0The [facility] CenterComment on above:Performed By: #### URTPCR #### [facility] [address] [place] [address] Dr. Shilpa BeardUrea nitrogen/Creatinine [Mass ratio]24.2 mg/mgNoUniversity Hospitals Cleveland Medical CenterComment on above:Performed By: #### URTPCR #### [facility] [address] [address] [address] Shilpa Saenz 92-63-9478DRR1.982 uIU/mLNormal0.470-4.680The [facility] on above:Performed By: #### URTPCR #### [facility] [address] [place] [address] Dr. Shilpa Rivas [facility] BELOWNoUniversity Hospitals Cleveland Medical CenterComment on above: Result Comment: <0.34 UIU/ml HYPERTHYROID 0.34-5.60 UIU/ml EUTHYROID >5.60 UIU/ml HYPOTHYROIDPerformed By: #### URTPCR #### [facility] [address] [place] [address] Dr. Shilpa Stuart ACID SERUMon 54-95-1425Lligs [Mass/Vol]7.9 mg/dLCritically high2.5-6.2The [facility] CenterComment on above:Performed By: #### LIPID, URIC, TSH, CMP #### [facility] [address] [place] [address] Dr. Shilpa Cortes T PROTEIN CREAT RATIOon 72-00-7357Ycjdzoc (U) [Mass/Vol] 50.5 mg/dLCritically high<=12.0[facility]edoComment on above:Performed By: #### URTPCR #### [facility] [address] [place] [address] Dr. Shilpa Xiong PROT CREAT RAT0.22NoUniversity Hospitals Cleveland Medical CenterComment on above: Performed By: #### URTPCR #### [facility] [address] [place] [address] Dr. Shilpa Cortes YQTOL796.96 mg/rCAkjanv09.00-300.00[facility] Comment on above:Performed By: #### URTPCR #### [facility] [address] [place] [address] Dr. Shilpa GutierresPTOUTREACHon 61-66-8840KFCWZWIEARVRIuemomd Outreach (COOCC3) MOHAN ESPINOZA ([id number]) 1935 F Date Time Provider Department 04/15/20 [...] Fully Assessed Order(s):SARS-COVID VACCINE 1ST DOSE APPT [[id number]] Order #: [id number] FUTURE Prescriptions as of 04/15/2020 Sig: CLOPIDOGREL [...] Text Encounter Status:Closed by HAKEEM VELA on 04/18/20[facility] [id number] ID: [id number] Author: Saeid Oneil Service: ? Author Type: Physician Type: Progress Notes Filed: 09/18/2019 4:23 PM Note Text: PATIENT NAME: Mohan Espinoza CLINIC NO.: [id number] ATTENDING PHYSICIAN: Saeid Oneil MD DATE OF [...] - Gout - Heart attack (HCC) 04/06/2018 [facility] - Hematuria - History of DVT (deep [...] 09/08/2018 2.53 1.00 - 4.00 k/uL Final [place]% Date Value Ref Range Status 09/08/2018 13.5 % Final Abs [place] Date Value Ref Range Status 09/08/2018 0.78 [...] do not hesitate to contact me at [phone]. Saeid nOeil MD Hematology/Medical Oncology [facility] CC: Irlanda Ewing MDNormalCOhio State East Hospital METABOLIC PANELon 21-71-5799Zjmdugr [Mass/Vol]9.1 mg/dLNormal8.6-10.3The [facility] HospitalComment on above:Order Comment: No: Do not add to previous draw Performed By: #### 01873, 39120, 91923, 95895, 88163, 18205 #### [facility] [address] [place] [address], USAChloride [Moles/Vol]113 mmol/SBzou44-460Zdn [facility] HospitalComment on above:Order Comment: No: Do not add to previous drawPerformed By: #### 46164, 35037, 03748, 82590, 91588, 38138 #### [facility] [address] [place] [address], USACO2 [Moles/Vol]26 mmol/CWpafzy92-95Fwx [facility] HospitalComment on above:Order Comment: No: Do not add to previous draw Performed By: #### 30502, 03013, 89492, 70038, 21442, 62129 #### [facility] [address] [place] [address], USACreatinine [Mass/Vol]0.95 mg/dLNormal0.60-1.20The [facility] HospitalComment on above:Order Comment: No: Do not add to previous drawPerformed By: #### 28510, 03386, 62631, 85401, 09938, 82461 #### [facility] [address] [place] [address], USAGFR/1.73 sq M predicted among blacks MDRD (S/P/Bld) [Vol rate/Area]mL/min/{1.73_m2}Normal>60The [facility] Comment on above:Order Comment: No: Do not add to previous drawResult Comment: Calculation may not be valid for patients over 70 yearsPerformed By: #### 63295, 29920, 84860, 93553, 26501, 31002 #### [facility] [address] [place] [address], USAGFR/1.73 sq M predicted among non-blacks MDRD (S/P/Bld) [Vol rate/Area]56 ml/min/1.73sq mAbnormal>60The [facility] HospitalComment on above:Order Comment: No: Do not add to previous drawResult Comment: Calculation may not be valid for patients over 70 yearsPerformed By: #### 13972, 45793, 93102, 46647, 83977, 68237 #### [facility] [address] [facility] [place] [address], USAGlucose [Mass/Vol]169 mg/yDEcri77-303Fna [facility] HospitalComment on above:Order Comment: No: Do not add to previous drawPerformed By: #### 72041, 24013, 34566, 11488, 62079, 70942 #### [facility] [address] [facility] [place] [address], USAPotassium [Moles/Vol]4.5 mmol/LNormal3.5-5.1The [facility] HospitalComment on above:Order Comment: No: Do not add to previous drawPerformed By: #### 61298, 99202, 03187, 30141, 01762, 74213 #### [facility] [address] [facility] [place] [address], USASodium [Moles/Vol]147 mmol/MEypt370-267Nxx [facility] HospitalComment on above:Order Comment: No: Do not add to previous drawPerformed By: #### 83624, 68826, 37020, 63896, 97463, 42747 #### [facility] [address] [facility] [place] [address], USAUrea nitrogen [Mass/Vol]18 mg/dLNormal7-25The [facility] HospitalComment on above:Order Comment: No: Do not add to previous drawPerformed By: #### 10323, 28866, 70605, 29611, 26744, 94282 #### [facility] [address] [facility] [place] [address], USACBC W/DIFFon 90-48-7654FCT BASOPHILS0.1 10*3/uLNormal 0.0-0.2The [facility] HospitalComment on above:Order Comment: No: Do not add to previous drawPerformed By: #### 54346, 23518, 16899, 42782, 41604, 43442 #### [facility] [address] [address], USAABS IMM GRANS0.1 10*3/uLNormal0.0-0.2The [facility] HospitalComment on above:Order Comment: No: Do not add to previous drawPerformed By: #### 55635, 96090, 99623, 55444, 89488, 64304 #### [facility] [address] [facility] [place] [address], USAABS NEUTROPHILS2.2 10*3/uLNormal1.6-7.6The [facility] HospitalComment on above:Order Comment: No: Do not add to previous drawPerformed By: #### 45806, 62190, 54526, 36412, 31334, 64470 #### [facility] [address] [facility] [place] [address], USABasophils/100 WBC (Bld)1.0 %Normal0.0-1.0The [facility] HospitalComment on above:Order Comment: No: Do not add to previous drawPerformed By: #### 96716, 87927, 76569, 77644, 47835, 21985 #### [facility] [address] [facility] [place] [address], USAEosinophils (Bld) [#/Vol]0.0 10*3/uLNormal0.0-0.5The [facility] HospitalComment on above:Order Comment: No: Do not add to previous drawPerformed By: #### 91496, 25709, 17629, 00266, 56111, 68256 #### [facility] [address] [facility] [place] [address], USAEosinophils/100 WBC (Bld)0.0 %Normal0.0-6.0The [facility] HospitalComment on above:Order Comment: No: Do not add to previous drawPerformed By: #### 95894, 50349, 69913, 91124, 58695, 93431 #### [facility] [address] [place] [address], USAErythrocyte distribution width (RBC) [Ratio]12.9 %Normal 11.5-15.0The [facility] HospitalComment on above:Order Comment: No: Do not add to previous drawPerformed By: #### 97487, 42982, 11841, 89296, 44064, 28682 #### [facility] [address] [place] [address], USAHematocrit (Bld) [Volume fraction]35.3 %Low36.0-45.0The [facility] HospitalComment on above:Order Comment: No: Do not add to previous drawPerformed By: #### 86677, 43351, 52911, 40728, 71206, 55375 #### [facility] [address] [facility] [place] [address], USAHemoglobin (Bld) [Mass/Vol]11.7 g/dLLow12.0-15.0The [facility] HospitalComment on above:Order Comment: No: Do not add to previous drawPerformed By: #### 47748, 17107, 21049, 08943, 18869, 13892 #### [facility] [address] [place] [address], USAIMMATURE GRANS1.0 %Normal0.0-1.0The [facility] HospitalComment on above:Order Comment: No: Do not add to previous draw Performed By: #### 79027, 72655, 10691, 71694, 57851, 75457 #### [facility] [address] [address], USALymphocytes (Bld) [#/Vol]1.9 10*3/uLNormal1.2-4.0The [facility] HospitalComment on above:Order Comment: No: Do not add to previous drawPerformed By: #### 06648, 64228, 76457, 17693, 81095, 33163 #### [facility] [address] [place] [address], [facility] MEDICAL CENTERLymphocytes/100 WBC (Bld)39.0 %Mrnoxq71.0-45.0The [facility] HospitalComment on above:Order Comment: No: Do not add to previous drawPerformed By: #### 52285, 04465, 55260, 73482, 38243, 29565 #### [facility] [address] [place] [address], [facility] (RBC) [Entitic mass]29.9 dkMsthqx11.0-33.0The [facility] HospitalComment on above:Order Comment: No: Do not add to previous drawPerformed By: #### 45468, 57635, 27887, 42926, 64336, 57847 #### [facility] [address] [facility] [place] [address], [facility]HC (RBC) [Mass/Vol]33.1 g/hCUvtvla56.0-35.0The [facility] HospitalComment on above:Order Comment: No: Do not add to previous drawPerformed By: #### 86002, 87312, 77904, 21654, 61668, 80904 #### [facility] [address] [place] [place] [address], [facility] (RBC) [Entitic vol]90.3 xBWgokqp81.0-98.0The [facility] HospitalComment on above:Order Comment: No: Do not add to previous drawPerformed By: #### 24456, 72742, 54447, 23385, 56587, 13730 #### [facility] [address] [facility] [place] [address], [facility] CENTERMonocytes (Bld) [#/Vol]0.7 10*3/uLNormal0.1-1.0The [facility] HospitalComment on above:Order Comment: No: Do not add to previous drawPerformed By: #### 68753, 52690, 57682, 75168, 65727, 12233 #### [facility] [address] [place] [address], AAFDLQHS84.8 %High5.0-12.0The [facility] HospitalComment on above:Order Comment: No: Do not add to previous drawPerformed By: #### 70361, 85042, 04478, 56090, 38430, 61122 #### [facility] [address] [place] [address], USANeutrophils/100 WBC (Bld)44.2 %Wuldlh56.0-72.0The [facility] HospitalComment on above:Order Comment: No: Do not add to previous drawPerformed By: #### 58739, 24409, 70872, 44640, 36667, 24743 #### [facility] [address] [facility] [place] [address], USANucleated RBC/100 WBC (Bld) [Ratio]0 %Normal0-0The [facility] HospitalComment on above:Order Comment: No: Do not add to previous drawPerformed By: #### 04044, 11978, 55122, 30898, 35836, 05026 #### [facility] [address] [facility] [place] [address], USAPLAT BLX730 10*3/pYHxxdkh611-929Ngg [facility] HospitalComment on above:Order Comment: No: Do not add to previous draw Performed By: #### 01694, 07539, 07377, 39528, 07690, 68630 #### [facility] [address] [facility] [place] [address], USARBC (Bld) [#/Vol]3.91 10*6/uLNormal3.80-5.00The [facility] HospitalComment on above:Order Comment: No: Do not add to previous drawPerformed By: #### 65943, 40593, 44309, 40992, 37623, 59072 #### [facility] [address] [place] [id number], USAWBC (Bld) [#/Vol]4.92 10*3/uLNormal4.00-10.60The [facility] HospitalComment on above:Order Comment: No: Do not add to previous drawPerformed By: #### 54862, 03753, 34758, 01591, 02692, 92754 #### [facility] [address] [place] [address], USAPOC GLUCOSE LABon 08-66-7076Kuzlopf [Mass/Vol]245 mg/dLHigh 70-100The [facility] HospitalComment on above:Performed By: #### 47793, 06789, 66519, 10235, 49422, 75210 #### [facility] [address] [place] [address], USAGlucose [Mass/Vol]220 mg/qOUfxd86-118Rfw [facility] HospitalComment on above:Performed By: #### 14687, 65995, 42662, 10782, 64323, 55018 #### [facility] [address] [place] [address], USAPROTHROMBIN TIMEon 92-31-6661FVB Coag (PPP) [Relative time] 1.84 {INR}High0.91-1.16The [facility] HospitalComment on above: Result Comment: ACCCP RECOMMENDED INR [...] OPTIMAL THERAPEUTIC RANGE. CHEST 1995;108:231S-246S.Performed By: #### 47105, 24453, 24824, 90267, 89019, 31788 #### [facility] [address] [place] [address], USAPT Coag (PPP) [Time]21.3 sHigh12.3-14.8The [facility] HospitalComment on above:Result Comment: ALL RESULTS MUST BE INTERPRETED WITH RESPECT TO BLOOD DRAWING ARTIFACT OR DILUTION ERROR OF ANTICOAGULANT AT THE TIME OF SAMPLING.Performed By: #### 87412, 85861, 74944, 62774, 84909, 10247 #### [facility] [address] [place] [address], USABASIC METABOLIC PANELon 46-50-6218Dmakqnv [Mass/Vol]8.5 mg/dLLow8.6-10.3The [facility] HospitalComment on above:Order Comment: No: Do not add to previous drawPerformed By: #### 08937, 05311, 28509, 00292, 67560, 63385 #### [facility] [address] [place] [address], USAChloride [Moles/Vol]104 mmol/JZbncgb39-248Pfr [facility] HospitalComment on above:Order Comment: No: Do not add to previous drawPerformed By: #### 68621, 89265, 84879, 06131, 15295, [address] #### [facility] [address] [place] [address], USACO2 [Moles/Vol]24 mmol/KKblull59-60Abs [facility] HospitalComment on above:Order Comment: No: Do not add to previous draw Performed By: #### 56948, 52268, 45949, 00724, 27080, 48501 #### [facility] [address] [place] [address], USACreatinine [Mass/Vol]0.90 mg/dLNormal0.60-1.20The [facility] HospitalComment on above:Order Comment: No: Do not add to previous drawPerformed By: #### 28154, 11715, 85950, 00865, 49700, 73244 #### [facility] [address] [place] [address], USAGFR/1.73 sq M predicted among blacks MDRD (S/P/Bld) [Vol rate/Area]mL/min/{1.73_m2}Normal>60The [facility] Comment on above:Order Comment: No: Do not add to previous drawResult Comment: Calculation may not be valid for patients over 70 yearsPerformed By: #### 72497, 21923, 02557, 29018, 86478, 07307 #### [facility] [address] [facility] [place] [address], USAGFR/1.73 sq M predicted among non-blacks MDRD (S/P/Bld) [Vol rate/Area]mL/min/{1.73_m2}Normal>60The [facility] Comment on above:Order Comment: No: Do not add to previous drawResult Comment: Calculation may not be valid for patients over 70 yearsPerformed By: #### 97085, 24937, 69125, 21038, 28577, 98625 #### [facility] [address] [facility] [place] [address], USAGlucose [Mass/Vol]173 mg/qITdgy59-329Oae [facility] HospitalComment on above:Order Comment: No: Do not add to previous drawPerformed By: #### 06575, 55649, 67730, 85817, 59051, 26814 #### [facility] [address] [place] [address], USAPotassium [Moles/Vol]4.1 mmol/LNormal3.5-5.1The [facility] HospitalComment on above:Order Comment: No: Do not add to previous drawPerformed By: #### 01026, 53892, 31331, 59121, 70093, 51815 #### [facility] [address] [place] [address], USASodium [Moles/Vol]136 mmol/FCpsftz676-495Bsm [facility] HospitalComment on above:Order Comment: No: Do not add to previous drawPerformed By: #### 16202, 34746, 45237, 81041, 02751, 58185 #### [facility] [address] [place] [address], USAUrea nitrogen [Mass/Vol]21 mg/dLNormal7-25The [facility] HospitalComment on above:Order Comment: No: Do not add to previous drawPerformed By: #### 49327, 10420, 06489, 86457, 09921, 64005 #### [facility] [address] [facility] [place] [address], USACBC COMPLETE BLOOD COUNTon 76-71-6584Bjcmbqaostu distribution width (RBC) [Ratio]12.9 %Ofhlhq67.5-15.0The [facility] HospitalComment on above:Order Comment: No: Do not add to previous draw Performed By: #### 23942, 54382, 98829, 47598, 91906, 85916 #### [facility] [address] [facility] [place] [address], USAHematocrit (Bld) [Volume fraction]35.1 %Low36.0-45.0The [facility] HospitalComment on above:Order Comment: No: Do not add to previous drawPerformed By: #### 42075, 59403, 17224, 27167, 12120, 30899 #### [facility] [address] [place] [address], USAHemoglobin (Bld) [Mass/Vol]11.4 g/dLLow12.0-15.0The [facility] HospitalComment on above:Order Comment: No: Do not add to previous drawPerformed By: #### 57477, 30305, 81266, 45556, 30084, 00707 #### [facility] [address] [facility] [place] [address], [facility] (RBC) [Entitic mass]29.8 fjMyfofk21.0-33.0The [facility] HospitalComment on above:Order Comment: No: Do not add to previous drawPerformed By: #### 44467, 22274, 05349, 72367, 55728, 75750 #### [facility] [address] [facility] [place] [address], [facility] (RBC) [Mass/Vol]32.5 g/rWHrtnud90.0-35.0The [facility] HospitalComment on above:Order Comment: No: Do not add to previous drawPerformed By: #### 15310, 16469, 40765, 51979, 46665, 09815 #### [facility] [address] [facility] [place] [address], [facility] (RBC) [Entitic vol]91.9 wCVuklqq48.0-98.0The [facility] HospitalComment on above:Order Comment: No: Do not add to previous drawPerformed By: #### 19217, 46567, 30924, 58277, 63193, 97384 #### [facility] [address] [facility] [place] [address], USANucleated RBC/100 WBC (Bld) [Ratio]0 %Normal0-0The [facility] HospitalComment on above:Order Comment: No: Do not add to previous drawPerformed By: #### 87918, 11759, 27818, 51807, 89714, 93967 #### [facility] [address] [facility] [place] [address], USAPLAT JPT790 10*3/oFYcjudz573-356Svk [facility] HospitalComment on above:Order Comment: No: Do not add to previous draw Performed By: #### 70481, 86336, 30173, 22015, 73242, 14418 #### [facility] [address] [place] [address], USARBC (Bld) [#/Vol]3.82 10*6/uLNormal3.80-5.00The [facility] HospitalComment on above:Order Comment: No: Do not add to previous drawPerformed By: #### 18898, 78320, 65418, 95228, 82683, 65879 #### [facility] [address] [facility] [place] [address], USAWBC (Bld) [#/Vol]5.35 10*3/uLNormal4.00-10.60The [facility] HospitalComment on above:Order Comment: No: Do not add to previous drawPerformed By: #### 81688, 95360, 47878, 62732, 00661, 45443 #### [facility] [address] [facility] [place] [address], USACardiovascular Lab Reporton [id number] Lab ReportUnLake County [facility] Patient Name: Mohan Espinoza [place] MR #: [id number] Physician: Irwin Clark of [facility] Medicine Service Date: 04/08/2018 Division of Birthdate: 1935 Cardiology Room #: [id number] Adult Cardiovascular Services [place] [address] Cardiovascular Laboratory Report CARDIAC CATHETERIZATION REPORT INDICATION: The patient is an 82-year-old woman with coronary artery disease status post bypass surgery in the past. She is admitted with a urinary tract infection and eib-TD-nlnelvl elevation myocardial infarction. She was referred for [...] signed informed consent. She was brought to medical laboratory technologist in a fasting state. The right groin area was prepped and draped in usual fashion. Using micropuncture technique, the right common femoral artery was accessed. The inner cannula was advanced and the right femoral angiography was performed followed by upsizing to a 6-Romanian x 11 cm sheath. Bilateral selective coronary angiography was then performed using 6-Romanian JL4 and JR4 diagnostic catheters. A 6-Romanian AR2 diagnostic catheter was used to selectively engage the saphenous venous graft to the obtuse marginal branch and right coronary artery and the radial graft to the diagonal branch. Angiography was performed. Catheter was removed. A 6-Romanian FRANCES diagnostic catheter was used to selectively engage the left subclavian artery and then selectively engage. The left internal mammary artery angiography was performed. Catheter was removed. Heparin was administered intravenously and therapeutic ACT confirmed during the procedure. A 6-Romanian JR4 guiding catheter was advanced and used to engage the right coronary ostium. A The 5th Quarterwater wire was advanced into the distal RCA, balloon angioplasty in the distal RCA was performed using Emerge 2.5 x 15 mm balloon inflated at 12 atmospheres. The balloon was brought backwards to the mid RCA and used to perform balloon angioplasty. Additional balloon dilatation was then performed using a NC Quantum Howe 2.5 x 8 mm balloon inflated at [...] 32 mm drug-eluting stent deployed in the rlrcflgq-gl-csr RCA at 11 atmospheres. Following that, NC Quantum Howe 2.5 x 8 mm noncompliant balloon was advanced into the distal stent and used to perform postdilatation at 16 atmospheres followed by postdilatation using NC Quantum Howe 3.0 x 8 mm balloon inflated at 18 atmospheres in the distal stent of the mid segment followed by additional postdilatation using NC Quantum Howe 3.0 x 20 mm noncompliant balloon inflated at 18 atmospheres in the jocutfdm-mv-dze segment stent. Intracoronary nitroglycerin 100 mcg was administered followed by final angiography, which showed excellent result with reduction of the stenosis to 0%. No evidence of dissection or perforation. The guiding catheter was removed. Procedure was concluded. The right femoral arteriotomy was managed with a 6-Romanian Angio-Seal device with good hemostasis. She tolerated [...] throughout its course reaching 99% in the qudlvkzb-wq-jtu segment. Another lesion was 90% in the oem-cg-lngszc segment and then this was followed by [...] graft to the PDA). 3. A 99% ptmfgcmd-bl-kyv, 90% mid, and 99% dff-yh-nsvgwq stenosis in the RCA, all reduced to [...] Randolph M.D. Date Trans: 04/09/2018 06:33 Luna/alli DN_JN:[id number] cc: Romario Ewing M.D. [address] [place] [address] Robert Tompkins M.D. [address] [place], [place] [address]MAGNESIUM BLOODon 45-85-1233Owmufwrat [Mass/Vol]1.6 mg/dLLow1.9-2.7The [facility] HospitalComment on above:Order Comment: No: Do not add to previous draw Performed By: #### 74806, 07570, 15142, 31681, 00202, 81550 #### [facility] [address] [place] [address], USAPOC GLUCOSE LABon 50-65-0012Djqzctv [Mass/Vol]253 mg/dLHigh 70-100The [facility] HospitalComment on above:Performed By: #### 37478, 16650, 09706, 13882, 92150, 91560 #### [facility] [address] [place] [address], USAGlucose [Mass/Vol]161 mg/qZXfyh38-557Eyo [facility] HospitalComment on above:Performed By: #### 91003, 34752, 01812, 53513, 82776, 90777 #### [facility] [address] [place] [address], USAGlucose [Mass/Vol]244 mg/zGUuum32-883Pql [facility] HospitalComment on above:Performed By: #### 88666, 17626, 62585, 87363, 68818, 11244 #### [facility] [address] [place] [address], USAGlucose [Mass/Vol]175 mg/wWGeuc18-462Rvw [facility] HospitalComment on above:Performed By: #### 43153, 13517, 47756, 68154, 91919, 88894 #### [facility] [address] [place] [address], USAPROTHROMBIN TIMEon [id number] Coag (PPP) [Relative time] 1.72 {INR}High0.91-1.16The [facility] HospitalComment on above: Result Comment: ACCCP RECOMMENDED INR [...] OPTIMAL THERAPEUTIC RANGE. CHEST 1995;108:231S-246S.Performed By: #### 05553, 49661, 10964, 28194, 88746, 66244 #### [facility] [address] [place] [address], USAPT Coag (PPP) [Time]20.2 sHigh12.3-14.8The [facility] HospitalComment on above:Result Comment: ALL RESULTS MUST BE INTERPRETED WITH RESPECT TO BLOOD DRAWING ARTIFACT OR DILUTION ERROR OF ANTICOAGULANT AT THE TIME OF SAMPLING.Performed By: #### 82976, 14906, 00948, 36694, 43131, 75937 #### [facility] [address] [place] [address], USABASIC METABOLIC PANELon 71-30-2182Lmieyyb [Mass/Vol]9.1 mg/dLNormal8.6-10.3The [facility] HospitalComment on above:Order Comment: No: Do not add to previous drawPerformed By: #### 19112, 42005, 70655, 23304, 13914, 92295 #### [facility] [address] [place] [address], USAChloride [Moles/Vol]103 mmol/XDsmpfw76-121Svq [facility] HospitalComment on above:Order Comment: No: Do not add to previous drawPerformed By: #### 83414, 87222, 64195, 39491, 56388, 12415 #### [facility] [address] [place] [address], USACO2 [Moles/Vol]24 mmol/OGjrzql39-21Two [facility] HospitalComment on above:Order Comment: No: Do not add to previous draw Performed By: #### 82707, 45766, 09143, 42495, 43096, 20969 #### [facility] [address] [place] [address], USACreatinine [Mass/Vol]0.95 mg/dLNormal0.60-1.20The [facility] HospitalComment on above:Order Comment: No: Do not add to previous drawPerformed By: #### 00935, 50411, 15769, 92492, 80959, 08722 #### [facility] [address] [place] [address], USAGFR/1.73 sq M predicted among blacks MDRD (S/P/Bld) [Vol rate/Area]mL/min/{1.73_m2}Normal>60The [facility] Comment on above:Order Comment: No: Do not add to previous drawResult Comment: Calculation may not be valid for patients over 70 yearsPerformed By: #### 60639, 88306, 60481, 91532, 89753, 44690 #### [facility] [address] [facility] [place] [address], USAGFR/1.73 sq M predicted among non-blacks MDRD (S/P/Bld) [Vol rate/Area]56 ml/min/1.73sq mAbnormal>60The [facility] HospitalComment on above:Order Comment: No: Do not add to previous drawResult Comment: Calculation may not be valid for patients over 70 yearsPerformed By: #### 33834, 00665, 17258, 08493, 94127, 72761 #### [facility] [address] [place] [address], USAGlucose [Mass/Vol]158 mg/tYVlgp69-453Mqw [facility] HospitalComment on above:Order Comment: No: Do not add to previous drawPerformed By: #### 04829, 21320, 32445, 72766, 04986, 69261 #### [facility] [address] [place] [address], USAPotassium [Moles/Vol]4.3 mmol/LNormal3.5-5.1The [facility] HospitalComment on above:Order Comment: No: Do not add to previous drawPerformed By: #### 21863, 84437, 87511, 23434, 10737, 96040 #### [facility] [address] [place] [address], USASodium [Moles/Vol]134 mmol/ULap087-942Pep [facility] HospitalComment on above:Order Comment: No: Do not add to previous drawPerformed By: #### 52530, 47528, 84474, 61433, 96235, 35480 #### [facility] [address] [facility] [place] [address], USAUrea nitrogen [Mass/Vol]24 mg/dLNormal7-25The [facility] HospitalComment on above:Order Comment: No: Do not add to previous drawPerformed By: #### 86410, 00162, 46863, 14120, 86872, 55853 #### [facility] [address] [facility] [place] [address], USACBC COMPLETE BLOOD COUNTon 41-01-2491Xlympsyyrjz distribution width (RBC) [Ratio]13.0 %Mpdxcm56.5-15.0The [facility] HospitalComment on above:Order Comment: No: Do not add to previous draw Performed By: #### 10471, 39560, 76374, 63081, 93359, 67419 #### [facility] [address] [facility] [place] [address], USAHematocrit (Bld) [Volume fraction]38.4 %Fbfjuf71.0-45.0The [facility] HospitalComment on above:Order Comment: No: Do not add to previous drawPerformed By: #### 36257, 32842, 56729, 81513, 71475, 86966 #### [facility] [address] [facility] [place] [address], [facility] CENTERHemoglobin (Bld) [Mass/Vol]12.7 g/aHTnmzpm23.0-15.0The [facility] HospitalComment on above:Order Comment: No: Do not add to previous drawPerformed By: #### 24414, 91838, 55547, 77051, 70213, 66441 #### [facility] [address] [facility] [place] [address], [facility] (RBC) [Entitic mass]30.4 meItmfjl80.0-33.0The [facility] HospitalComment on above:Order Comment: No: Do not add to previous drawPerformed By: #### 41203, 31800, 63478, 40112, 01019, 37584 #### [facility] [address] [facility] [place] [address], [facility] (RBC) [Mass/Vol]33.1 g/mPAqhytk53.0-35.0The [facility] HospitalComment on above:Order Comment: No: Do not add to previous drawPerformed By: #### 39346, 00818, 36457, 95640, 99807, 33329 #### [facility] [address] [facility] [place] [address], [facility] (RBC) [Entitic vol]91.9 gCHrifth48.0-98.0The [facility] HospitalComment on above:Order Comment: No: Do not add to previous drawPerformed By: #### 33926, 88302, 27155, 57547, 32296, 35138 #### [facility] [address] [facility] [place] [address], USANucleated RBC/100 WBC (Bld) [Ratio]0 %Normal0-0The [facility] HospitalComment on above:Order Comment: No: Do not add to previous drawPerformed By: #### 75311, 88957, 60785, 77999, 20304, 84513 #### [facility] [address] [place] [address], USAPLAT [id number] 10*3/rCYplovw894-870Jzp [facility] HospitalComment on above:Order Comment: No: Do not add to previous draw Performed By: #### 36431, 51794, 10658, 08304, 03320, 93157 #### [facility] [address] [facility] [place] [address], USARBC (Bld) [#/Vol]4.18 10*6/uLNormal3.80-5.00The [facility] HospitalComment on above:Order Comment: No: Do not add to previous drawPerformed By: #### 97304, 39813, 72229, 08405, 55433, 17246 #### [facility] [address] [facility] [address], [facility] CENTERWBC (Bld) [#/Vol]6.62 10*3/uLNormal4.00-10.60The [facility] HospitalComment on above:Order Comment: No: Do not add to previous drawPerformed By: #### 17616, 68583, 66548, 38978, 59365, 32301 #### [facility] [address] [facility] [place] [address], USAMAGNESIUM BLOODon 35-82-3281Nxsvbzuvy [Mass/Vol]1.9 mg/dL Normal1.9-2.7The [facility] HospitalComment on above:Order Comment: No: Do not add to previous drawPerformed By: #### 64702, 20030, 20014, 80730, 42674, 54626 #### [facility] [address] [facility] [address], USAPOC GLUCOSE LABon 22-90-6798Tiuqgut [Mass/Vol]199 mg/dLHigh 70-100The [facility] HospitalComment on above:Performed By: #### 13455, 41215, 87210, 77985, 60772, 92890 #### [facility] [address] [place] [address], USAGlucose [Mass/Vol]198 mg/zHMdhq31-173Cml [facility] HospitalComment on above:Performed By: #### 18621, 82138, 45346, 10571, 17054, 18076 #### [facility] [address] [place] [address], USAGlucose [Mass/Vol]155 mg/iGHxqn48-010Uby [facility] HospitalComment on above:Performed By: #### 91032, 20433, 74957, 51063, 88631, 43037 #### [facility] [address] [facility] [place] [address], USAPROTHROMBIN TIMEon 02-89-9485UJJ Coag (PPP) [Relative time] 1.68 {INR}High0.91-1.16The [facility] HospitalComment on above: Result Comment: ACCCP RECOMMENDED INR [...] OPTIMAL THERAPEUTIC RANGE. CHEST 1995;108:231S-246S.Performed By: #### 34862, 27850, 92490, 55515, 52055, 99251 #### [facility] [address] [facility] [place] [address], USAPT Coag (PPP) [Time]19.9 sHigh12.3-14.8The [facility] HospitalComment on above:Result Comment: ALL RESULTS MUST BE INTERPRETED WITH RESPECT TO BLOOD DRAWING ARTIFACT OR DILUTION ERROR OF ANTICOAGULANT AT THE TIME OF SAMPLING.Performed By: #### 73941, 77111, 88852, 30348, 00157, 03387 #### [facility] [address] [facility] [place] [address], [facility]*RAPID FLU AANDB BY MOLECULARon 04-07-2018*RAPID FLU AANDB BY MOLECULARClinical Report: (D) Specimen: NASAL SWAB Collected: 04/06/2018 22:10 Status: Final Last Updated: 04/06/2018 23:10 FLUA RNA (Final) Negative FLUB RNA (Final) NegativeNormAkron Children's HospitalComment on above:Performed By: #### 12021, 42473, 33566, 31490, 83526, 89522 #### [facility] [address] [facility] [place] [address], USABASIC METABOLIC PANELon 22-52-5029Zcqdqdo [Mass/Vol]8.3 mg/dLLow8.6-10.3The [facility] HospitalComment on above:Order Comment: No: Do not add to previous drawPerformed By: #### 52545, 04301, 88009, 17038, 33044, 55135 #### [facility] [address] [facility] [place] [address], USAChloride [Moles/Vol]105 mmol/KVyjtdh98-866Hbv [facility] HospitalComment on above:Order Comment: No: Do not add to previous drawPerformed By: #### 08272, 35345, 00846, 99048, 65012, 63798 #### [facility] [address] [facility] [place] [address], USACO2 [Moles/Vol]24 mmol/AOpyjdt67-74Tha [facility] HospitalComment on above:Order Comment: No: Do not add to previous draw Performed By: #### 26296, 26875, 27413, 31206, 66482, 12378 #### [facility] [address] [place] [address], USACreatinine [Mass/Vol]1.24 mg/dLHigh0.60-1.20The [facility] HospitalComment on above:Order Comment: No: Do not add to previous drawPerformed By: #### 64118, 14290, 46076, 27051, 10457, 54434 #### [facility] [address] [place] [address], USAGFR/1.73 sq M predicted among blacks MDRD (S/P/Bld) [Vol rate/Area]50 ml/min/1.73sq mAbnormal>60The [facility] Comment on above:Order Comment: No: Do not add to previous drawResult Comment: Calculation may not be valid for patients over 70 yearsPerformed By: #### 92547, 92842, 48102, 38549, 89981, 04850 #### [facility] [address] [place] [address], USAGFR/1.73 sq M predicted among non-blacks MDRD (S/P/Bld) [Vol rate/Area]42 ml/min/1.73sq mAbnormal>60The [facility] HospitalComment on above:Order Comment: No: Do not add to previous drawResult Comment: Calculation may not be valid for patients over 70 yearsPerformed By: #### 92374, 35746, 98570, 27128, 60079, 57020 #### [facility] [address] [place] [address], USAGlucose [Mass/Vol]166 mg/cUCusc60-680Giz [facility] HospitalComment on above:Order Comment: No: Do not add to previous drawPerformed By: #### 70337, 07390, 52030, 99419, 22886, 60144 #### [facility] [address] [place] [address], USAPotassium [Moles/Vol]4.2 mmol/LNormal3.5-5.1The [facility] HospitalComment on above:Order Comment: No: Do not add to previous drawPerformed By: #### 68384, 86315, 42189, 20683, 16766, 77083 #### [facility] [address] [place] [address], USASodium [Moles/Vol]135 mmol/COdj977-575Qlx [facility] HospitalComment on above:Order Comment: No: Do not add to previous drawPerformed By: #### 00990, 01670, 52413, 24363, 12109, 43527 #### [facility] [address] [facility] [place] [address], USAUrea nitrogen [Mass/Vol]33 mg/dLHigh7-25The [facility] HospitalComment on above:Order Comment: No: Do not add to previous drawPerformed By: #### 43542, 48137, 12974, 89017, 48361, 37152 #### [facility] [address] [facility] [place] [address], [facility] CENTERCB W/DIFFon 10-18-2627FGS BASOPHILS0.1 10*3/uLNormal 0.0-0.2The [facility] HospitalComment on above:Order Comment: No: Do not add to previous drawPerformed By: #### 91259, 75460, 69035, 10960, 32036, 45181 #### [facility] [address] [facility] [place] [address], USAABS IMM GRANS0.1 10*3/uLNormal0.0-0.2The [facility] HospitalComment on above:Order Comment: No: Do not add to previous drawPerformed By: #### 71054, 13571, 95556, 74072, 48548, 93647 #### [facility] [address] [place] [place] [address], USAABS NEUTROPHILS6.4 10*3/uLNormal1.6-7.6The [facility] HospitalComment on above:Order Comment: No: Do not add to previous drawPerformed By: #### 11551, 12185, 89740, 93294, 22598, 33711 #### [facility] [address] [place] [address], USABasophils/100 WBC (Bld)0.5 %Normal0.0-1.0The [facility] HospitalComment on above:Order Comment: No: Do not add to previous drawPerformed By: #### 11973, 89574, 67560, 32770, 26020, 84874 #### [facility] [address] [facility] [place] [address], USAEosinophils (Bld) [#/Vol]0.0 10*3/uLNormal0.0-0.5The [facility] HospitalComment on above:Order Comment: No: Do not add to previous drawPerformed By: #### 13461, 38119, 79318, 49733, 66663, 14417 #### [facility] [address] [place] [address], USAEosinophils/100 WBC (Bld)0.0 %Normal0.0-6.0The [facility] HospitalComment on above:Order Comment: No: Do not add to previous drawPerformed By: #### [id number], 97210, 79083, 37409, 66399, 54910 #### [facility] [address] [facility] [place] [address], USAErythrocyte distribution width (RBC) [Ratio]13.2 %Normal 11.5-15.0The [facility] HospitalComment on above:Order Comment: No: Do not add to previous drawPerformed By: #### 07968, 76716, 12751, 03547, 43706, 28931 #### [facility] [facility] [address] [place] [address], USAHematocrit (Bld) [Volume fraction]35.0 %Low36.0-45.0The [facility] North HospitalComment on above:Order Comment: No: Do not add to previous drawPerformed By: #### 93482, 26535, 92734, 48050, 26791, 09822 #### [facility] [address] [place] [address], USAHemoglobin (Bld) [Mass/Vol]11.4 g/dLLow12.0-15.0The [facility] North HospitalComment on above:Order Comment: No: Do not add to previous drawPerformed By: #### 52907, 60664, 85214, 81529, 28056, 19457 #### [facility] [address] [place] [address], USAIMMATURE GRANS0.5 %Normal0.0-1.0The [facility] North HospitalComment on above:Order Comment: No: Do not add to previous draw Performed By: #### 50076, 46532, 35785, 65366, 35696, 92096 #### [facility] [address] [place] [address], USALymphocytes (Bld) [#/Vol]2.1 10*3/uLNormal1.2-4.0The [facility] HospitalComment on above:Order Comment: No: Do not add to previous drawPerformed By: #### 40302, 53340, 24900, 10628, 03653, 11855 #### [facility] [address] [place] [address], USALymphocytes/100 WBC (Bld)21.7 %Eyancg15.0-45.0The [facility] HospitalComment on above:Order Comment: No: Do not add to previous drawPerformed By: #### 76248, 30099, 62907, 12071, 24851, 16772 #### [facility] [address] [place] [address], USAMCH (RBC) [Entitic mass]29.8 rpTixlpq13.0-33.0The [facility] North HospitalComment on above:Order Comment: No: Do not add to previous drawPerformed By: #### 15160, 65151, 20108, 79796, 00697, 32490 #### [facility] [address] [place] [address], [facility] CENTERMCHC (RBC) [Mass/Vol]32.6 g/aGZiebvb69.0-35.0The [facility] HospitalComment on above:Order Comment: No: Do not add to previous drawPerformed By: #### 51633, 60523, 64798, 67129, 53031, 14914 #### [facility] [address] [place] [address], [facility] (RBC) [Entitic vol]91.4 dBIlvlnw72.0-98.0The [facility] HospitalComment on above:Order Comment: No: Do not add to previous drawPerformed By: #### 67175, 45964, 09875, 46365, 23706, 56458 #### [facility] [address] [place] [address], USAMonocytes (Bld) [#/Vol]1.0 10*3/uLNormal0.1-1.0The [facility] HospitalComment on above:Order Comment: No: Do not add to previous drawPerformed By: #### 74375, 00985, 09447, 61832, 36937, 47128 #### [facility] [address] [place] [address], JXLDBIBS14.6 %Normal5.0-12.0The [facility] North HospitalComment on above:Order Comment: No: Do not add to previous drawPerformed By: #### 77705, 63534, 50487, 88162, 42587, 51645 #### [facility] [address] [place] [address], USANeutrophils/100 WBC (Bld)66.7 %Xzzzxw85.0-72.0The [facility] HospitalComment on above:Order Comment: No: Do not add to previous drawPerformed By: #### 23585, 76821, 00579, 36630, 51788, 00170 #### [facility] [address] [place] [address], USANucleated RBC/100 WBC (Bld) [Ratio]0 %Normal0-0The [facility] North HospitalComment on above:Order Comment: No: Do not add to previous drawPerformed By: #### 03563, 94799, 80351, 69196, 45540, 04790 #### [facility] [address] [facility] [place] [address], USAPLAT HJE092 10*3/bKOztdjk977-894Lvi [facility] HospitalComment on above:Order Comment: No: Do not add to previous draw Performed By: #### 23810, 97125, 57298, 27038, 67671, 17580 #### [facility] [address] [place] [address], USARBC (Bld) [#/Vol]3.83 10*6/uLNormal3.80-5.00The [facility] North HospitalComment on above:Order Comment: No: Do not add to previous drawPerformed By: #### 47859, 93785, 91587, 73135, 29884, 72345 #### [facility] [address] [place] [address], USAWBC (Bld) [#/Vol]9.53 10*3/uLNormal4.00-10.60The [facility] North HospitalComment on above:Order Comment: No: Do not add to previous drawPerformed By: #### 31905, 64158, 01698, 48335, 23637, 75089 #### [facility] [address] [place] [address], USAMAGNESIUM BLOODon 28-97-3571Jgfybnixi [Mass/Vol]1.4 mg/dL Low1.9-2.7The [facility] North HospitalComment on above:Order Comment: No: Do not add to previous drawPerformed By: #### 50662, 05474, 43971, 88905, 00163, 78600 #### [facility] [address] [place] [address], USAPHOSPHORUS BLOODon 43-13-4764Pqzapajfz [Mass/Vol]2.6 mg/dL Normal2.5-5.0The [facility] North HospitalComment on above:Order Comment: No: Do not add to previous drawPerformed By: #### 62805, 48652, 14961, 92799, 89974, 08819 #### [facility] [address] [facility] [place] [address], USAPOC GLUCOSE LABon 13-63-7311Ybdqzml [Mass/Vol]187 mg/dLHigh 70-100The [facility] North HospitalComment on above:Performed By: #### 94138, 53440, 31936, 82843, 89698, 17130 #### [facility] [address] [place] [address], USAGlucose [Mass/Vol]182 mg/dTEwaf11-020Txu [facility] HospitalComment on above:Performed By: #### 69905, 54442, 86314, 61418, 58611, 11565 #### [facility] [address] [place] [address], USAGlucose [Mass/Vol]156 mg/jOMmul80-442Iaw [facility] HospitalComment on above:Performed By: #### 40792, 12884, 48092, 94527, 87562, 36503 #### [facility] [address] [place] [address], USAGlucose [Mass/Vol]148 mg/tKShef49-711Dpl [facility] HospitalComment on above:Performed By: #### 92314, 15416, 05694, 66046, 60864, 84184 #### [facility] [address] [place] [address], USAPROTHROMBIN TIMEon 90-83-8733BOW Coag (PPP) [Relative time] 1.65 {INR}High0.91-1.16The [facility] North HospitalComment on above: Result Comment: [facility] RECOMMENDED INR FOR WARFARIN THERAPY ------- CONDITION [...] OPTIMAL THERAPEUTIC RANGE. CHEST 1995;108:231S-246S.Performed By: #### 53422, 44875, 32745, 73069, 58120, 06342 #### [facility] [address] [facility] [place] [id number], USAPT Coag (PPP) [Time]19.6 sHigh12.3-14.8The [facility] North HospitalComment on above:Result Comment: ALL RESULTS MUST BE INTERPRETED WITH RESPECT TO BLOOD DRAWING ARTIFACT OR DILUTION ERROR OF ANTICOAGULANT AT THE TIME OF SAMPLING.Performed By: #### 83264, 26896, 82710, 25273, 72145, 99319 #### [facility] [address] [place] [address], USAINR Coag (PPP) [Relative time]1.68 {INR}High0.91-1.16The [facility] HospitalComment on above:Result Comment: [facility] RECOMMENDED INR FOR [...] OPTIMAL THERAPEUTIC RANGE. CHEST 1995;108:231S-246S.Performed By: #### 17092, 12745, 82237, 06292, 01255, 85895 #### [facility] [address] [facility] [address], USAPT Coag (PPP) [Time]19.9 sHigh12.3-14.8The [facility] HospitalComment on above:Result Comment: ALL RESULTS MUST BE INTERPRETED WITH RESPECT TO BLOOD DRAWING ARTIFACT OR DILUTION ERROR OF ANTICOAGULANT AT THE TIME OF SAMPLING.Performed By: #### 35644, 92582, 28103, 74157, 19060, 64172 #### [facility] [address] [facility] [address], USATROPONIN-Ion 97-56-3258Piudvdtc I.cardiac [Mass/Vol]0.15 ng/mLCritically high0.00-0.04The [facility] North HospitalComment on above:Order Comment: No: Do not add to previous drawResult Comment: M-PREVIOUS CRITICAL RESULT REFERENCE RANGES: 0.00 - 0.04 ng/ml NORMAL 0.05 - 0.50 ng/ml INDETERMINATE > 0.50 ng/ml CONSISTENT WITH AN M.I.Performed By: #### 00084, 61242, 48744, 47783, 39856, 32231 #### [facility] [address] [place] [address], USATroponin I.cardiac [Mass/Vol]0.17 ng/mLCritically high 0.00-0.04The [facility] HospitalComment on above:Result Comment: M-PREVIOUS CRITICAL RESULT REFERENCE RANGES: 0.00 - 0.04 ng/ml NORMAL 0.05 - 0.50 ng/ml INDETERMINATE > 0.50 ng/ml CONSISTENT WITH AN M.I.Performed By: #### 42444, 36745, 72065, 23234, 14839, 30444 #### [facility] [address] [place] [address], USATroponin I.cardiac [Mass/Vol]0.20 ng/mLCritically high 0.00-0.04The [facility] HospitalComment on above:Order Comment: No: Do not add to previous drawResult Comment: M-PREVIOUS CRITICAL RESULT REFERENCE RANGES: 0.00 - 0.04 ng/ml NORMAL 0.05 - 0.50 ng/ml INDETERMINATE > 0.50 ng/ml CONSISTENT WITH AN M.I.Performed By: #### 32032, 74414, 57795, 15223, 94884, 21069 #### [facility] [address] [place] [address], USAURINALYSIS REFLEXon 68-88-6234Iawkcwbacx (U)SL CLOUDY AbnormalCLEARThe [facility] North HospitalComment on above:Order Comment: No: Do not add to previous drawPerformed By: #### 03282, 98971, 64841, 87241, 55589, 69186 #### [facility] [address] [place] [address], USABilirubin [Mass/Vol]NegativeNormalNEGATIVEThe [facility] North HospitalComment on above:Order Comment: No: Do not add to previous drawPerformed By: #### 07157, 57712, 69935, 05216, 42770, 29512 #### [facility] [address] [place] [address], USABLOODNegativeNormalNEGATIVEThe [facility] North HospitalComment on above:Order Comment: No: Do not add to previous drawPerformed By: #### 28504, 49928, 79623, 56342, 97640, 80573 #### [facility] [address] [place] [address], USAColor (U)YELLOWNormalYELLOWThe [facility] HospitalComment on above:Order Comment: No: Do not add to previous drawPerformed By: #### 52827, 78124, 41502, 55080, 93262, 07430 #### [facility] [address] [place] [address], USAEPISMANYAbnormalFEW,OCC,NONE SEENThe [facility] North HospitalComment on above:Order Comment: No: Do not add to previous draw Performed By: #### 88359, 63586, 11083, 87030, 88307, 55415 #### [facility] [address] [place] [address], USAGlucose [Mass/Vol]NegativeNormalNEGATIVEThe [facility] HospitalComment on above:Order Comment: No: Do not add to previous drawPerformed By: #### 51195, 43265, 30226, 79181, 91894, 70770 #### [facility] [address] [place] [address], USAKETONENegativeNormalNEGATIVEThe [facility] HospitalComment on above:Order Comment: No: Do not add to previous draw Performed By: #### 62025, 11360, 74157, 83663, 66778, 30764 #### [facility] [address] [place] [address], USALEUK ESTERMODERATEAbnormalNEGATIVEThe [facility] HospitalComment on above:Order Comment: No: Do not add to previous draw Performed By: #### 73939, 28943, 21966, 71119, 81396, 44547 #### [facility] [address] [place] [address], USANitrite Ql (U)NegativeNormalNEGATIVEThe [facility] HospitalComment on above:Order Comment: No: Do not add to previous drawPerformed By: #### 14962, 44008, 31607, 86377, 39357, 80427 #### [facility] [address] [place] [address], USApH (Bld)5.8Tsaxfr1.0-8.0The [facility] HospitalComment on above:Order Comment: No: Do not add to previous drawPerformed By: #### 62483, 48846, 81591, 30631, 00915, 50687 #### [facility] [address] [place] [address], USAProtein (U) [Mass/Vol]NegativeNormalNEGATIVEThe [facility] HospitalComment on above:Order Comment: No: Do not add to previous drawPerformed By: #### 19875, 40546, 11131, 59082, 93266, 15898 #### [facility] [address] [facility] [place] [address], USARBC (U) [#/Vol]0-2AbnormalNONE SEENThe [facility] HospitalComment on above:Order Comment: No: Do not add to previous draw Performed By: #### 16429, 20243, 58939, 27355, 62454, 09779 #### [facility] [address] [facility] [place] [address], USASPEC GRAV1.336Iicfsd8.015-1.020The [facility] HospitalComment on above:Order Comment: No: Do not add to previous draw Performed By: #### 21929, 68225, 26920, 56192, 59807, 79064 #### [facility] [address] [place] [address], USAWBC BE97-21GcafcfcfEDZQ [facility] HospitalComment on above:Order Comment: No: Do not add to previous draw Performed By: #### 69225, 22658, 12074, 96651, 63226, 55076 #### [facility] [address] [place] [address], [place]*A-LEGIONELLA AG URon 94-62-8810ZLCNNY EXAMtest.NormalThe [facility] HospitalComment on above:Order Comment: No: Do not add to previous drawILNoAultman Alliance Community HospitalComment on above:Order Comment: No: Do not add to previous drawREPORT STATUSFINAL 04/07/2018NoAultman Alliance Community HospitalComment on above:Order Comment: No: Do not add to previous draw*BLOOD CULTUREon 48-81-7934Nzootezx identified Cx Nom (Bld)Clinical Report: (D) Specimen: BLOOD CULTURE Collected: 04/06/2018 19:35 Status: Final Last Updated: 04/12/2018 07:54 (1) x 2 Prior to Antibiotic Administration CULT RES (Final) No Growth Day 5[facility] HospitalComment on above: Order Comment: No: Do not add to previous drawPerformed By: #### 47970, 83702, 27415, 78693, 21209, 98018 #### [facility] [address] [place] [address], USABacteria identified Cx Nom (Bld)Clinical Report: (D) Specimen: BLOOD CULTURE Collected: 04/06/2018 19:34 Status: Final Last Updated: 04/12/2018 07:54 (1) x 2 Prior to Antibiotic Administration CULT RES (Final) No Growth Day [address] [place], [place] [address]Comment on above: Order Comment: No: Do not add to previous drawPerformed By: #### 77737, 29521, 80764, 13811, 43344, 89726 #### [facility] [address] [place] [address], USABASIC METABOLIC PANELon 18-36-6336Ahwfocj [Mass/Vol]8.5 mg/dLLow8.6-10.3The [facility] HospitalComment on above:Order Comment: No: Do not add to previous drawPerformed By: #### 79053, 89225, 82695, 69127, 23915, 58308 #### [facility] [address] [place] [address], USAChloride [Moles/Vol]104 mmol/CMwrcds33-638Ljm [facility] HospitalComment on above:Order Comment: No: Do not add to previous drawPerformed By: #### 78447, 26190, 38537, 71094, 95689, 21087 #### [facility] [address] [place] [address], USACO2 [Moles/Vol]22 mmol/LBthsgj98-94Bay [facility] HospitalComment on above:Order Comment: No: Do not add to previous draw Performed By: #### 46479, 48438, 00001, 43532, 64670, 27662 #### [facility] [address] [place] [address], USACreatinine [Mass/Vol]1.41 mg/dLHigh0.60-1.20The [facility] HospitalComment on above:Order Comment: No: Do not add to previous drawPerformed By: #### 23123, 13145, 46882, 15314, 18605, 83912 #### [facility] [address] [place] [address], USAGFR/1.73 sq M predicted among blacks MDRD (S/P/Bld) [Vol rate/Area]44 ml/min/1.73sq mAbnormal>60The [facility] Comment on above:Order Comment: No: Do not add to previous drawResult Comment: Calculation may not be valid for patients over 70 yearsPerformed By: #### 87533, 02610, 32070, 99988, 08947, 75423 #### [facility] [address] [place] [address], USAGFR/1.73 sq M predicted among non-blacks MDRD (S/P/Bld) [Vol rate/Area]36 ml/min/1.73sq mAbnormal>60The [facility] HospitalComment on above:Order Comment: No: Do not add to previous drawResult Comment: Calculation may not be valid for patients over 70 yearsPerformed By: #### 94148, 47680, 58625, 67995, 18420, 31934 #### [facility] [address] [place] [address], USAGlucose [Mass/Vol]198 mg/sJNzor50-254Iwj [facility] HospitalComment on above:Order Comment: No: Do not add to previous drawPerformed By: #### 55415, 94061, 60681, 36432, 15791, 53629 #### [facility] [address] [place] [address], USAPotassium [Moles/Vol]4.7 mmol/LNormal3.5-5.1The [facility] HospitalComment on above:Order Comment: No: Do not add to previous drawPerformed By: #### 02453, 68162, 86195, 46707, 11734, 73390 #### [facility] [address] [place] [address], USASodium [Moles/Vol]135 mmol/ULwe883-978Gqr [facility] HospitalComment on above:Order Comment: No: Do not add to previous drawPerformed By: #### 38158, 21114, 87426, 32959, 56454, 26481 #### [facility] [address] [place] [address], USAUrea nitrogen [Mass/Vol]34 mg/dLHigh7-25The [facility] HospitalComment on above:Order Comment: No: Do not add to previous drawPerformed By: #### 05027, 90040, 86982, 65963, 58797, 83512 #### [facility] [address] [place] [address], [facility] CENTERCBC W/DIFFon 27-93-0882HIB BASOPHILS0.1 10*3/uLNormal 0.0-0.2The [facility] HospitalComment on above:Performed By: #### 31756 #### [facility] [address] [facility] [place] [address], [facility] CENTERABS IMM GRANS0.1 10*3/uLNormal0.0-0.2The [facility] HospitalComment on above:Performed By: #### 08124 #### [facility] [address] [facility] [place] [address], [facility] CENTERABS BYLSLGYCODF54.3 10*3/uLHigh1.6-7.6The [facility] HospitalComment on above:Performed By: #### 78080 #### [facility] [address] [facility] [place] [address], [facility] CENTERBasophils/100 WBC (Bld)0.3 %Normal0.0-1.0The [facility] HospitalComment on above:Performed By: #### 63298 #### [facility] [address] [facility] [place] [address], [facility] CENTEREosinophils (Bld) [#/Vol]0.0 10*3/uLNormal0.0-0.5The [facility] HospitalComment on above:Performed By: #### 00481 #### [facility] [address] [facility] [place] [address], USAEosinophils/100 WBC (Bld)0.0 %Normal0.0-6.0The [facility] HospitalComment on above:Performed By: #### 28348 #### [facility] [address] [facility] [place] [address], USAErythrocyte distribution width (RBC) [Ratio]13.1 %Normal 11.5-15.0The [facility] HospitalComment on above:Performed By: #### 92454 #### [facility] [address] [facility] [place] [address], USAHematocrit (Bld) [Volume fraction]38.9 %Anujah75.0-45.0The [facility] HospitalComment on above:Performed By: #### 75034 #### [facility] [address] [facility] [place] [address], USAHemoglobin (Bld) [Mass/Vol]12.7 g/jOPfsuuf79.0-15.0The [facility] HospitalComment on above:Performed By: #### 24467 #### [facility] [address] [facility] [place] [address], USAIMMATURE GRANS0.3 %Normal0.0-1.0The [facility] HospitalComment on above:Performed By: #### 87091 #### [facility] [address] [facility] [place] [address], USALymphocytes (Bld) [#/Vol]1.8 10*3/uLNormal1.2-4.0The [facility] HospitalComment on above:Performed By: #### 61777 #### [facility] [address] [facility] [place] [address], USALymphocytes/100 WBC (Bld)12.2 %Low20.0-45.0The [facility] HospitalComment on above:Performed By: #### 32667 #### [facility] [address] [facility] [place] [address], USAMCH (RBC) [Entitic mass]30.5 pcXxcjes11.0-33.0The [facility] HospitalComment on above:Performed By: #### 20829 #### [facility] [address] [facility] [place] [address], USAMCHC (RBC) [Mass/Vol]32.6 g/iWGamdel67.0-35.0The [facility] HospitalComment on above:Performed By: #### 25820 #### [facility] [address] [place] [address], [facility] CENTERMCV (RBC) [Entitic vol]93.3 lLTxvqgq20.0-98.0The [facility] HospitalComment on above:Performed By: #### 92331 #### [facility] [address] [facility]ht[facility] [place] [id number], USAMonocytes (Bld) [#/Vol]1.2 10*3/uLHigh0.1-1.0The [facility] HospitalComment on above:Performed By: #### 43359 #### [facility] [address] [place] [address], [facility] CENTERMONOS8.4 %Normal5.0-12.0The [facility] HospitalComment on above:Performed By: #### 20511 #### [facility] [address] [facility] [place] [address], USANeutrophils/100 WBC (Bld)78.8 %High40.0-72.0The [facility] HospitalComment on above:Performed By: #### 59958 #### [facility] [address] [facility] [address], USANucleated RBC/100 WBC (Bld) [Ratio]0 %Normal0-0The [facility] HospitalComment on above:Performed By: #### 32885 #### [facility] [address] [facility] [address], USAPLAT GCD999 10*3/eLEgxply658-832Gde [facility] HospitalComment on above:Performed By: #### 86856 #### [facility] [address] [facility] [address], USARBC (Bld) [#/Vol]4.17 10*6/uLNormal3.80-5.00The [facility] HospitalComment on above:Performed By: #### 02573 #### [address] [place] [address], USAWBC (Bld) [#/Vol]14.33 10*3/uLHigh4.00-10.60The [facility] HospitalComment on above:Performed By: #### 26251 #### [facility] [address] [facility] [place] [address], USACHEST AND LATERALon 60-20-6349JEEME AND LATERALUnCleveland Clinic [facility] Department of Radiology [address] [place] [phone] Patient Name: MOHAN ESPINOZA : 1935 Sex: F Age: Race: White Pt. Location: [id number] Patient Status: I Ordered Date: 04/06/2018 6:20:00 [...] findings. Electronically signed by:Ronna Villalobos. Transcribed by: [email or web address], User Resident: MURTAZA VILLAGRAN Electronically Signed by: RONNA VILLALOBOS @ 04/07/2018 09:13 AM I personally read this/these film(s) with this residentMemorial Health System Marietta Memorial HospitalComment on above:Order Comment: No: Do not add to previous drawDIGOXINon 71-59-4253Yoohtuf [Mass/Vol]0.7 ng/mLNormal0.7-2.0The [facility] HospitalComment on above:Performed By: #### 56679, 49561, 98560, 85636, 59927, 19400 #### [facility] [address] [place] [address], USALIVER BATTERYon 12-89-0223Jnotegy [Mass/Vol]3.4 g/dLLow 3.5-5.7The [facility] HospitalComment on above:Order Comment: No: Do not add to previous drawPerformed By: #### 71325, 83117, 36089, 11410, 16277, 17130 #### [facility] [address] [place] [address], USAALKALINE HNYGYA01 IU/OPaoahc16-974Esu [facility] HospitalComment on above:Order Comment: No: Do not add to previous draw Performed By: #### 06405, 80747, 45647, 23699, 66171, 29554 #### [facility] [address] [place] [address], [place]ALT [Catalytic activity/Vol]16 U/LNormal7-52The [facility] HospitalComment on above:Order Comment: No: Do not add to previous drawPerformed By: #### 50597, 35414, 45458, 19473, 28279, 01662 #### [facility] [address] [place] [address], USAAST [Catalytic activity/Vol]17 U/SSbwbtn42-31Ymp [facility] HospitalComment on above:Order Comment: No: Do not add to previous drawPerformed By: #### 02175, 57324, 04138, 91539, 43345, 77593 #### [facility] [address] [place] [address], USABilirubin [Mass/Vol]0.5 mg/dLNormal0.3-1.0The [facility] HospitalComment on above:Order Comment: No: Do not add to previous drawPerformed By: #### 90858, 98603, 23371, 72458, 47109, 45915 #### [facility] [address] [place] [address], USABilirubin.direct [Mass/Vol]0.1 mg/dLNormal0.0-0.2The [facility] HospitalComment on above:Order Comment: No: Do not add to previous drawPerformed By: #### 72135, 56113, 32422, 42369, 93152, 78505 #### [facility] [address] [place] [address], USAProtein [Mass/Vol]6.2 g/dLNormal6.0-8.3The [facility] HospitalComment on above:Order Comment: No: Do not add to previous drawPerformed By: #### 13103, 69679, 04307, 03117, 98908, 62040 #### [facility] [address] [facility] [place] [address], USAMAGNESIUM BLOODon [id number] [Mass/Vol]1.3 mg/dL Low1.9-2.7The [facility] HospitalComment on above:Order Comment: No: Do not add to previous drawPerformed By: #### 33154, 70101, 36369, 03146, 18671, 86894 #### [facility] [address] [place] [address], [facility] CENTERPHOSPHORUS BLOODon 81-61-5758Pfujxtckc [Mass/Vol]2.6 mg/dL Normal2.5-5.0The [facility] HospitalComment on above:Order Comment: No: Do not add to previous drawPerformed By: #### 37370, 83561, 28129, 35117, 07706, 60133 #### [facility] [address] [place] [address], [facility] CENTERPOC GLUCOSE LABon 13-01-7460Olewhvv [Mass/Vol]172 mg/dLHigh 70-100The [facility] HospitalComment on above:Performed By: #### [id number] #### [facility] [address] [place] [address], [facility] CENTERPROCALCITONINon 72-99-2222PXQBXVCYHEUIO7.61 ng/mLCritically high0.00-0.10The [facility] HospitalComment on above:Order Comment: Yes: Add to Previous [...] [place]UR[place] AT [address]Performed By: #### 06680 #### [facility] [address] [place] [address], USASEPSIS LACTATE W/REFLEXon 60-63-3492Khayvqk [Moles/Vol]1.4 mmol/LNormal0.5-2.2The [facility] HospitalComment on above:Order Comment: No: Do not add to previous drawPerformed By: #### 15874 #### [facility] [address] [facility] [place] [address], USATROPONIN-Ion 13-21-7386Hzknmnhy I.cardiac [Mass/Vol]0.23 ng/mLCritically high0.00-0.04The [facility] HospitalComment on above:Order Comment: No: Do not [...] ng/ml CONSISTENT WITH AN M.I.Performed By: #### 00144, 56118, 25987, 86475, 54200, 28822 #### [facility] [address] [facility] [place] [address], USACRPon 82-85-5285VBM mass conc4.0 mg/dLHigh<=1.9[facility] HospitalComment on above:Performed By: #### [id number] ####[facility] [address] [place] [address] Vital Signs Date TimeVital SignValuePerforming ChxzqusgxPnnrhsgl38-99-4617 09:13-0400Body .1 [degF]Ирина Aichholz MARKETING COMPLIANCE MANAGER-C Work Phone: [phone]10-13-2025 09:13-0400 Body ifqqpz690.29 kgLisa Aichholz MARKETING COMPLIANCE MANAGER-C Work Phone: [phone])[address]10-13-2025 09:13-0400 Diastolic blood vznnwilk85 mm[Hg]Ирина Aichholz MARKETING COMPLIANCE MANAGER-C Work Phone: [phone])45360 [address]10-13-2025 09:13-0400 Heart rate76 /minLisa Aichholz MARKETING COMPLIANCE MANAGER-C Work Phone: [phone] [address]10-13-2025 09:13-0400 Respiratory rate20 /minLisa Aichholz MARKETING COMPLIANCE MANAGER-C Work Phone: 1(208)058-[address] [place], [place] [address]2310-13-2025 09:13-0400 SaO2% (BldA) [Mass fraction]93 %Ирина Aichholz MARKETING COMPLIANCE MANAGER-C Work Phone: [phone])[address]10-13-2025 09:13-0400 Systolic blood vulgxwcv636 mm[Hg]Ирина Aichholz MARKETING COMPLIANCE MANAGER-C Work Phone: 1(119)515-[address] [place], [place] [address]2308-12-2025 09:22-0400 Body pdviovlhnlg51.81 [degF]Ирина Aichholz MARKETING COMPLIANCE MANAGER Work Phone: [facility] CenterXeekneltjt55-29-3297 09:22-0400Diastolic blood mm[Hg]Ирина Aichholz MARKETING COMPLIANCE MANAGER Work Phone: [facility] CenterEhrwukmaoy26-10-1026 09:22-0400Heart rate80 /min Ирина Aichholz MARKETING COMPLIANCE MANAGER Work Phone: [facility] CenterOdzdgzrgfz76-82-0893 09:22-0400Respiratory rate24 /minLisa Aichholz MARKETING COMPLIANCE MANAGER Work Phone: [facility] CenterDvxupyyvvs71-83-1774 09:22-6676RzL8% (BldA) [Mass fraction]93 %Ирина Kevin MARKETING COMPLIANCE MANAGER Work Phone: [facility] CenterMvhwacmzha59-82-8417 09:22-0400Systolic blood scpkpavc450 mm[Hg]Ирина Dorethacarmelinaevans MARKETING COMPLIANCE MANAGER Work Phone: [facility] CenterCfjkphbgfq15-79-4860 09:48-0400Body .7 cmJoseluis Casey DO Work Phone: [facility]07-30-2025 09:48-0400 Diastolic blood fitbuzki41 mm[Hg]Joseluis Casey DO Work Phone: [facility]07-30-2025 09:48-0400 Heart rate72 /minJoseluis Casey DO Work Phone: [facility]07-30-2025 09:48-0400 Systolic blood urzaobex612 mm[Hg]Joseluis Casey DO Work Phone: [facility]06-10-2025 10:40-0400 Body .1 [degF]Ирина Kevin MARKETING COMPLIANCE MANAGER Work Phone: [facility] CenterQpdnvtlkxc71-28-2606 10:40-0400Diastolic blood mm[Hg]Ирина Kevin MARKETING COMPLIANCE MANAGER Work Phone: [facility] CenterEkscnoxavf87-89-7397 10:40-0400Heart rate83 /min Ирина Kevin MARKETING COMPLIANCE MANAGER Work Phone: [facility] CenterXkkvrpgkvf53-02-7570 10:40-0400Respiratory rate18 /minLisa Kevin MARKETING COMPLIANCE MANAGER Work Phone: [facility] CenterNojfdlivze60-36-8764 10:40-0294LeY5% (BldA) [Mass fraction]96 %Ирина Kevin MARKETING COMPLIANCE MANAGER Work Phone: [facility] CenterIbyxcrhwkf72-06-1486 10:40-0400Systolic blood icwrjukd893 mm[Hg]Ирина Brown MARKETING COMPLIANCE MANAGER Work Phone: [facility] CenterNphmfljlpe48-24-0145 10:29-0500Body mcjvij266.7 Dedrick Brown MARKETING COMPLIANCE MANAGER Work Phone: [facility] CenterNhmazwauvk66-66-0804 10:29-0500Body mass index (BMI) [Ratio]41.36 kg/m2Ирина Brown MARKETING COMPLIANCE MANAGER Work Phone: [facility] CenterTrzmlescqp93-17-5014 10:29-0500Body temperature 97.59 [degF]Ирина Brown MARKETING COMPLIANCE MANAGER Work Phone: [facility] CenterZdcohemgbx14-89-4318 10:29-0500Body lizylj629.38 kgИрина Brown MARKETING COMPLIANCE MANAGER Work Phone: [facility] CenterSpigpychji63-05-8917 10:29-0500Diastolic blood sdvucrhj53 mm[Hg]Ирина Brown MARKETING COMPLIANCE MANAGER Work Phone: [facility] CenterNmbwhsmhev53-93-5325 10:29-0500Heart rate94 /min Иринаluna Brown MARKETING COMPLIANCE MANAGER Work Phone: [facility] CenterIzczhxqrlv58-15-9096 10:29-0500Respiratory rate22 /minLisa Brown MARKETING COMPLIANCE MANAGER Work Phone: [facility] CenterVkvqvgmmli56-06-0755 10:29-3554SlK6% (BldA) [Mass fraction]98 %Ирина Brown MARKETING COMPLIANCE MANAGER Work Phone: [facility] CenterGkfgekbolw03-00-9124 10:29-0500Systolic blood uwrouimi723 mm[Hg]Ирина Brown MARKETING COMPLIANCE MANAGER Work Phone: [facility] CenterUfslgmkuhf04-69-2054 08:54-0500Body bivwyz134.7 cmEmilie Meza MARKETING COMPLIANCE MANAGER Work Phone: noProgress [facility] HospitalPpzzxfvlvj28-09-8655 08:54-0500Body wqzarcmzutk23 [degF]Emilieenma Albertsk MARKETING COMPLIANCE MANAGER Work Phone: [facility] CenterDmezzqekwy37-05-6211 08:54-0500Diastolic blood hqksjleq42 mm[Hg]Emilie Meza MARKETING COMPLIANCE MANAGER Work Phone: [facility] CenterIjmphgykmz89-24-7386 08:54-0500Heart rate76 /min Emilie Meza MARKETING COMPLIANCE MANAGER Work Phone: [facility] CenterVnumzkuyfj86-40-0115 08:54-0500Respiratory rate18 /minBrittany Meza MARKETING COMPLIANCE MANAGER Work Phone: [facility] CenterUyyqdyiwwl88-11-1333 08:54-0864YbI1% (BldA) [Mass fraction]94 %Emilie Meza MARKETING COMPLIANCE MANAGER Work Phone: [facility] CenterYydrgeypmb71-48-5503 08:54-0500Systolic blood rboynaxh685 mm[Hg]Emilie Meza MARKETING COMPLIANCE MANAGER Work Phone: [facility] CenterQaflplqynz53-50-9266 11:08-0400Body jryxehdgahy03 [degF]Emilie Meza MARKETING COMPLIANCE MANAGER Work Phone: [facility] CenterQexupyfgdu32-96-6638 11:08-0400Diastolic blood mm[Hg]Emilie Meza MARKETING COMPLIANCE MANAGER Work Phone: [facility] CenterIgwjxcatfo74-57-4248 11:08-0400Heart rate85 /min Emilie Meza MARKETING COMPLIANCE MANAGER Work Phone: [facility] CenterLwuexviopv84-07-3733 11:08-5641JjG1% (BldA) [Mass fraction]94 %Emilie Meza MARKETING COMPLIANCE MANAGER Work Phone: [facility] CenterVubleexpbk45-92-7965 11:08-0400Systolic blood ncknnkyd725 mm[Hg]Emilie Meza MARKETING COMPLIANCE MANAGER Work Phone: [facility] CenterWpvexaphoy24-12-7500 08:00-0400Body temperature 98.4 [degF]DO Ren Mohan Work Phone: [facility]10-08-2024 08:00-0400 Diastolic blood evntkisd03 mm[Hg]DO Ren Mohan Work Phone: 1(691)[address] [place], [place] 4396210-08-2024 08:00-0400 Heart rate80 /MarvO Ren Mohan Work Phone: 1(691)[address] [place], [place] 3707910-08-2024 08:00-0400 Respiratory rate18 /minDO Ren Mohan Work Phone: 1(557)[address] [place], [place] 1882410-08-2024 08:00-0400 SaO2% (BldA) [Mass fraction]96 %DO Ren Mohan Work Phone: 1(805)[address] [place], [place] 1882410-08-2024 08:00-0400 Systolic blood bugsdyag572 mm[Hg]DO Ren Mohan Work Phone: 1(259)[address] [place], [place] 1882410-08-2024 06:00-0400 Body euzapx385.9 kgDO Ren Mohan Work Phone: 1(453)[address] [place], [place] 1882410-05-2024 11:58-0400 Body cqdazo510.72 cmDO Ren Mohan Work Phone: 1(949)[address] [place], [place] 1882404-12-2023 09:34-0400 Body vytatn134.72 Chip Schultz Work Phone: [phone]) [phone]-Trbpq [facility] 250 DO Work Phone: 1(165) 154-355304-12-2023 09:34-0400Body mass index (BMI) [Ratio] Patient Reason Not DoneShaikh Marion Work Phone: [phone]-Gvddm [facility] 250 DO Work Phone: 1(437) 609-582304-12-2023 09:34-0400Diastolic blood mm[Hg] Shaikh Marion Work Phone: mp147-7340EQ-Npwhd [facility] 250 DO Work Phone: 1(177) 857-553604-12-2023 09:34-0400Heart rate68 /Peri Zamorad Work Phone: [phone]-Sodyu [facility] 250 DO Work Phone: 1(882) 636-686904-12-2023 09:34-0400Systolic blood vnzmrzag658 mm[Hg] Good Birgitluis Work Phone: [phone]-Bkpqf [facility] 250 DO Work Phone: 1(138) 100-864504-12-2023 09:34-089626 1Syousif Zamorad Work Phone: [phone]-Rfbjg [facility] 250 DO Work Phone: Comment on above:PHQ-9 ED79-39-0654 11:26-0400Body dapboiegyua61.4 [degF]MD Shaikh Schultz Work Phone: [facility]04-04-2023 11:26-0400 Diastolic blood avkiyoiu93 mm[Hg]MD Shaikh Schultz Work Phone: 1(698)271-[address] [place], [place] 2185004-04-2023 11:26-0400 Heart poue375 /minMD Birgitluis Work Phone: [facility]04-04-2023 11:26-0400 Respiratory rate18 /minMD Luaikh Birgitluis Work Phone: [facility]04-04-2023 11:26-0400 SaO2% (BldA) [Mass fraction]96 %MD Shaikh Schultz Work Phone: [facility]04-04-2023 11:26-0400 Systolic blood kddkuwkw236 mm[Hg]MD Shaikh Schultz Work Phone: 1(457)107-[address] [place], [place] [address]762304-04-2023 08:03-0400 Inhaled oxygen flow rate1 L/minMD Shaikh Schultz Work Phone: [facility]04-04-2023 06:00-0400 Body .4 kgMD Shaikh Marion Work Phone: [facility]04-03-2023 14:39-0400 Body .72 cmMD Shaikh Marion Work Phone: [facility]04-03-2023 00:00-0400 45 1Syousif Zamorad Work Phone: [phone]-Pkquq [facility] 250 DO Work Phone: Comment on above:[id number] Encounters Encounter DateEncounter TypeCare ProviderFacilityStart: 01-01-2025 End: 34-80-1165llcvzggbnmGzyo J Aichholz MARKETING COMPLIANCE MANAGER-C Work Phone: [facility] Work Phone: Start: 01-01-2025 End: 80-55-4857Ciuwtgj encounter procedureLisa Georges Brwon MARKETING COMPLIANCE MANAGER-C-[facility] Work Phone: Start: 37-32-1292Griwuin encounter procedureLisa Brown MARKETING COMPLIANCE MANAGER-C Work Phone: [facility] Centertart: 11-14-2024 End: 39-39-0304Wettwxvmj Result EncounterLisa Brown MARKETING COMPLIANCE MANAGER Work Phone: noms External Department UnsolicitedStart: 11-14-2024 End: 09-00-7121Amvdawsrk Result EncounterLisa Santanaholz MARKETING COMPLIANCE MANAGER Work Phone: noms External Department UnsolicitedStart: 11-09-2024 End: 52-65-5440MpamtnXorv Aichholz MARKETING COMPLIANCE MANAGER Work Phone: noms CWM FMComment on above:Hypomagnesemia; Type 2 diabetes mellitus without complications (HCC)Start: 10-31-2024 End: 86-72-1097Iknvnq flowsheetИрина Brown MARKETING COMPLIANCE MANAGER Work Phone: noms CWM FMStart: 10-31-2024 End: 20-60-8151Fwvvdz [facility] hospitalsaloChinyere Kevin MARKETING COMPLIANCE MANAGER Work Phone: noms CWM FMStart: 10-31-2024 End: 53-10-8516Tdfglm outpatient visit 25 minutesИрина Dorethacarmelinaevans MARKETING COMPLIANCE MANAGER Work Phone: noms CWM FMComment on above:Essential hypertension (Primary Dx); Type 2 diabetes mellitus with diabetic polyneuropathy, without long-term current use of insulin (HCC); Longstanding persistent atrial fibrillation (HCC); Pulmonary embolism, unspecified chronicity, unspecified pulmonary embolism type, unspecified whether acute cor pulmonale present (HCC); Chronic diastolic (congestive) heart failure (HCC); Chronic kidney disease, stage 3b ([facility]); Type 2 diabetes mellitus with stage 3b chronic kidney disease, without long-term current use of insulin (HCC); Morbid (severe) obesity due to excess calories ([facility]); Acquired hypothyroidism ; Diarrhea, unspecified typeStart: 10-31-2024 End: 48-91-1416advzvlrrelIBXJ AICHHOLZNot AvailableStart: 10-18-2024 End: 58-33-1785Mqhzum outpatient visit 25 [facility] Work Phone: [facility] HospitalComment on above:ASHD (arteriosclerotic heart disease); History of [...] chronicity, unspecified heart failure typeStart: 10-18-2024 End: 37-36-8055yhoxnkrxxcDDFGBQDJeff Davis Hospital AmbulatoryStart: 10-11-2024 End: 25-72-4461BtfsdaEkue Aichholz MARKETING COMPLIANCE MANAGER Work Phone: noms [facility] FMComment on above:Hypothyroidism, unspecified ; Type 2 diabetes mellitus with diabetic chronic kidney disease (HCC); Hyperuricemia without signs of inflammatory arthritis and tophaceous disease; Type 2 diabetes mellitus without complications (HCC)Start: 09-15-2024 End: 36-76-1818Wcejtanuk Result EncounterLisa Aichholz MARKETING COMPLIANCE MANAGER Work Phone: noms External Department UnsolicitedStart: 09-15-2024 End: 58-22-2065Sigcqftlw Result EncounterLisa Aichholz MARKETING COMPLIANCE MANAGER Work Phone: noms External Department UnsolicitedStart: 09-15-2024 End: 23-69-9919QumqyeOchu Aichholz MARKETING COMPLIANCE MANAGER Work Phone: noms CWM FMComment on above:Hypomagnesemia (Primary Dx)Start: 08-29-2024 End: 09-54-7834Kljthh flowsheetLisa Aichholz MARKETING COMPLIANCE MANAGER Work Phone: noms CWM FMStart: 08-29-2024 End: 21-89-5867Cwajqf flowsheetLisa Aichholz MARKETING COMPLIANCE MANAGER Work Phone: noms CWM FMStart: 08-29-2024 End: 16-68-4022Lawgazt encounter procedureLisa Aichholz MARKETING COMPLIANCE MANAGER Work Phone: noms CWM FMComment on above:Medicare annual wellness visit, subsequent (Primary Dx); Type 2 diabetes mellitus with stage 3b chronic kidney disease, without long-term current use of insulin (HCC) (CMS/HCC); Morbid (severe) obesity due to excess calories (CMS/HCC); Acquired hypothyroidism (CMS/HCC); Essential hypertension (CMS/HCC); Chronic diastolic (congestive) heart failure; Coronary artery disease involving [place] coronary artery of [place] heart without angina pectoris (CMS/HCC); Type 2 diabetes mellitus with diabetic polyneuropathy, without long-term current use of insulin (CMS/HCC); HypomagnesemiaStart: 08-29-2024 End: 69-14-3995mnvbqmiabdOXAM AICHHOLZNot AvailableStart: 07-10-2024 End: 80-16-5966ZvcytwJgna Naderer MD Work Phone: noms CWM FMComment on above:Unspecified atrial fibrillation (CMS/HCC)Start: 07-06-2024 End: 24-93-8835Gjbmjmwrc Result EncounterGeneric External Data ProviderNOMS External Department UnsolicitedStart: 07-06-2024 End: 62-00-7924Kqoebcupf Result EncounterGeneric External Data ProviderNOMS External Department UnsolicitedStart: 07-06-2024 End: 17-43-5551pngpmrlrxgYwedawifJian Meza MARKETING COMPLIANCE MANAGER-C Work Phone: [facility] Work Phone: Start: 07-06-2024 End: 16-86-7663Waxloqdi Jabier Meza MARKETING COMPLIANCE MANAGER-C Work Phone: [facility]-LAB [facility] Jovanni HospStart: 05-25-2024 End: 52-78-1720Rfgptp flowsheetИрина Brown MARKETING COMPLIANCE MANAGER Work Phone: noms CWM FMStart: 05-25-2024 End: 78-20-4831Oaunge flowsheetLisa Dorethahholz MARKETING COMPLIANCE MANAGER Work Phone: noms CWM FMStart: 05-25-2024 End: 58-39-9073Xdoikb outpatient visit 25 minutesLisa Kevin MARKETING COMPLIANCE MANAGER Work Phone: noms CWM FMComment on above:Type [...] Cardiomyopathy, ischemic (CMS/HCC); Coronary artery disease involving [place] coronary artery of [place] heart without angina pectoris (CMS/HCC); Essential hypertension (CMS/HCC); Acquired hypothyroidism (CMS/HCC); Factor V Leiden mutation (CMS/HCC); Statin intolerance; Hyperuricemia without signs of inflammatory arthritis and tophaceous disease Start: 05-25-2024 End: 10-16-8608qficewzgpgDBHP [facility] CENTERZNot AvailableStart: 04-17-2024 End: 71-30-2523Mcvyofmjb Result EncounterBrradha WillsonMeza MARKETING COMPLIANCE MANAGER Work Phone: noms External Department UnsolicitedStart: 04-17-2024 End: 16-16-3870Xedxndfjt Result EncounterBrittjackie WillsonMeza MARKETING COMPLIANCE MANAGER Work Phone: noms External Department UnsolicitedStart: 04-05-2024 End: 15-51-3124LsfbxwVhgilgdz Meza MARKETING COMPLIANCE MANAGER Work Phone: noms CWM FMComment on above:Type 2 diabetes mellitus without complications (CMS/HCC)Start: 02-28-2024 End: 28-23-1023DpptnhGofyejld Meza MARKETING COMPLIANCE MANAGER Work Phone: noms CWM FMComment on above:Hyperuricemia without signs of inflammatory arthritis and tophaceous disease; Type 2 diabetes mellitus without complications (CMS/HCC)Type 2 diabetes mellitus with diabetic chronic kidney disease ([facility])Hypothyroidism, unspecified (CMS/HCC); Unspecified atrial fibrillation ([facility]/HCC)Start: 01-25-2024 End: 70-65-4659Rblwkf flowsheetBrittany Meza MARKETING COMPLIANCE MANAGER Work Phone: noMS CWM FMStart: 01-25-2024 End: 70-34-0617Jzeabm flowsheetBrittany Meza MARKETING COMPLIANCE MANAGER Work Phone: N[facility] CWM FMStart: 01-25-2024 End: 80-97-8780Mjboqd outpatient visit 15 minutesEmilie Meza MARKETING COMPLIANCE MANAGER Work Phone: noms CWM FMComment on above:Type 2 diabetes mellitus with stage 3a chronic kidney disease, without long-term current use of insulin (HCC) (CMS/HCC) (Primary Dx); Essential hypertension (CMS/HCC); Acquired hypothyroidism (CMS/HCC); Need for influenza vaccinationStart: 01-25-2024 End: 44-06-6617pfstvbiwtuHHNXNIIUJian Merritt AvailableStart: 01-10-2024 End: 38-14-6738Rykmacprgsvq care manage srvc 14 day dischargeEmilie Meza MARKETING COMPLIANCE MANAGER Work Phone: noms CWM FMComment on above:Longstanding persistent atrial fibrillation (CMS/HCC) (Primary Dx)Start: 01-10-2024 End: 19-11-7792fqvxssvxyvNTKVTBEMJian Merritt AvailableStart: 12-28-2023 End: 15-85-7045NtjdlwDtorhfay Fitzpatrick MARKETING COMPLIANCE MANAGER Work Phone: noms CWM FMComment on above:Unspecified atrial fibrillation (CMS/HCC)Start: 12-25-2023 End: 89-57-3489Dcubhttgtj and management of inpatientDO Ren Mohan Work Phone: [facility] [place] [facility] Work Phone: Start: 10-79-1344Lgxnqsd encounter procedureEmilie Meza MARKETING COMPLIANCE MANAGER Work Phone: noms HealthcareStart: 79-80-9329qznhgldemnXjAshish CaseyFacility:[id number]: 19-61-7766Kz EvergreenHealthlui Schultz Work Phone: [phone]-Rgtab [facility] 250 DO Work Phone: Start: 17-66-4130tpngarubbeJBBRZQZ SHELDON Facility:9844Start: 77-77-1388mhkcthmeyaGEDAKUP SHELDONFacility:9844Start: 56-62-6874Txrmjz outpatient visit 40 minutesShaikh Marion Work Phone: [phone]-Qhjeb [facility] 250 DO Work Phone: Start: 06-60-5752xyahngysudYi. Shaikh Marion Facility:[id number]: 06-29-2022 End: 69-88-4553kabbkpenbeHT Shaikh Marion Work Phone: [facility] Work Phone: Start: 06-29-2022 End: 46-85-1394Lhtexupe ReferredMD Shaikh Marion Work Phone: [facility]-Lab [facility] Work Phone: Start: 98-88-5632eajsrvqgghIf. Joseluis Casey Facility:[id number]: 36-06-9221fzfytdrpsjAvAshish CaseyFacility:9090Start: 06-22-2022 End: 92-25-4837Qnrcwhellp and management of inpatientMD Shaikh Marion Work Phone: [facility] [place] [facility] Work Phone: Start: 45-27-1025kgumunkxqkUr. Joseluis Casey Facility:[id number]: 06-21-2022 End: 00-00-1039plujzfrnguUC JAYY HinojosaFacility:H6Ykbuj: 12-29-2021 End: 20-99-9598znnrpcywekFQRHLB H FAWWADFacility:X4Rwmvk: 09-29-2021 End: 73-57-4364poexkszqfyHVQATE H FAWWADFacility:E6Ccbdh: 06-30-2021 End: 66-54-7124frgwlutwjcLQTPUD H FAWWADFacility:R7Yggql: 04-06-2018 End: 47-01-6404Eoqendyktg and management of inpatientSARMED MANSURFacility:[facility] Start: 11-05-2017 End: 24-36-1932Srnulkt encounterStepmadhavi Patrick ReineckFacility:[facility] Procedures DateProcedureProcedure DetailPerforming ClinicianStart: 96-82-6756YMW MAGNESIUM Ирина Brown MARKETING COMPLIANCE MANAGER Work Phone: Start: 39-10-8161HPW CBC WITH AUTO DIFFLisa Tomasz MARKETING COMPLIANCE MANAGER Work Phone: Start: 58-01-4346Hqqtpuzwqv glycosylated f2wTivk Kevin MARKETING COMPLIANCE MANAGER Work Phone: Start: 89-06-5426AIYDA CULTURE - [facility] – NORMANGeneric External Data ProviderStart: 40-04-4942JFQ CBC WITH AUTO DIFFBrittany Meza MARKETING COMPLIANCE MANAGER Work Phone: Start: 55-11-4562Ajtjip scan of lower limb veinsDO Ren Mohan Work Phone: Start: 27-25-3044Bxalc chest X-rayDO Ren Mohan Work Phone: Start: 97-23-7468Foswvproewu Panel (PCR)DO Ren Mohan Work Phone: Start: 50-56-2386Ilodzwd of percutaneous transluminal coronary angioplastyHistory of PTCAWilliam Jacinto YANEZ Work Phone: Start: 97-39-7021Kyuiuik of coronary artery bypass graftingHistory of coronary artery bypass graftWilliam Jacinto YANEZ Work Phone: Start: 19-93-6444Qlmneep of coronary artery bypass graftingHistory of coronary artery bypass graftBrcassandraany Meza MARKETING COMPLIANCE MANAGER Work Phone: Start: 15-85-5800Nynqi colonoscopyShaikh Birgitwesme Work Phone: Start: 45-37-9686HTOBFSSF OF 1 COR ART WITH 3 DRUG- ELUT, PERC APPROACHGEORGE V MOUKARBELStart: 64-00-3879VMIFOKCMZGT OF L INT MAMM GRAFT USING OTH CONTRASTGEORGE V MOUKARBELStart: 06-86-8171KGZHNYBGAIP OF MULT COR A GRAFT USING OTH CONTRASTGEORGE V MOUKARBELStart: 86-95-1056WGOZGOFVTIH OF MULTIPLE CORONARY ARTERIES USING OTH CONTRASTGEORGE V MOUKARBELAppendectomy Shaikh Marion Work Phone: History of coronary artery bypass graftingHistory of coronary artery bypass graftSyousif Schultz Work Phone: History of coronary artery bypass graftingHistory of coronary artery bypass graftJoseluis Casey DO Work Phone: History of coronary artery bypass graftingHx of coronary artery bypass graftИрина Brown MARKETING COMPLIANCE MANAGERDimitriosC Work Phone: History of placement of stent for coronary artery diseaseHistory of heart artery stentMD Shaikh Marion Work Phone: Comment on above:March 2018- 3 stents placed at [facility] List clean-up per request of Phys. EHR CmteInsertion of inferior vena caval filterSyousif Schultz Work Phone: Plan of Treatment DateCare ActivityDetailAuthorStart: 10-22-2025 End: 47-12-1141Ijmpglk encounter sbgubakei59/03/2026 10:00 AM EDT Office Visit [facility] [address] [facility] [address] [place] [address] Mackenzie Zhang, HUMAN [employer]OURCES COMMUNICATIONS MANAGER-CLEANING AND WASHING EQUIPMENT OPERATOR [address] [facility] [address], [address] [place] [address] [facility]Start: 76-29-9940Mralttvy screening Diabetes: Retinopathy ScreeningJohn J. Pershing VA Medical CenterStart: 09-04-2025 End: 75-47-9774Arpowvv encounter fkgqcsusl97/16/2026 10:00 AM EDT Office Visit [facility] [address] [place] [id number] Ирина Brown NP [address] [place] [id number] [facility] FMStart: 06-10-2026Medicare Annual Wellness (AWV) Medicare Annual Wellness (AWV)[facility] CenterStart: 32-81-4720Nfodk screening for proteinDiabetes: Urine Protein ScreeningJohn J. Pershing VA Medical CenterStart: 01-01-2025 End: 52-40-3698Ohpaops encounter [id number]/13/2025 9:20 AM EDT Office Visit [facility] [address] [place] [address] Ирина Brown, YOAN [address] [place] [address] [facility] FMStart: 00-12-8886UltwsukumgyhfsxzSbzzcioidtgtcb White HospitalStart: 42-40-2026Rdtcchatqi A1c measurement Diabetes: Hemoglobin C9ZXSHLJohn J. Pershing VA Medical CenterStart: 60-17-2095Nfqnhxlwe vaccination Influenza Vaccine (#1)[facility] CenterStart: 10-31-2024 End: 12-04-5168Orowjtb encounter procedureNOJD MCC[facility] FMComment on above:Type 2 diabetes mellitus with diabetic polyneuropathy, without long-term current use of insulin (HCC) (Primary Dx); Longstanding persistent atrial fibrillation (HCC); Pulmonary embolism, unspecified chronicity, unspecified pulmonary embolism type, unspecified whether acute cor pulmonale present (HCC); Essential hypertension ; Chronic diastolic (congestive) heart failure (HCC); Chronic kidney disease, stage 3b ([facility]); Type 2 diabetes mellitus with stage 3b chronic kidney disease, without long-term current use of insulin (HCC); Morbid (severe) obesity due to excess calories ([facility]); Acquired hypothyroidismStart: 10-15-2024 End: 62-05-1855Bcmfktfrc [Mass/volume] in Serum or PlasmaMagnesium Lab Routine Hypomagnesemia Expected: 10/15/2024 (Approximate), Expires: 09/15/2025[facility] Work Phone: Comment on above:Expected: 10/15/2024 (Approximate), Expires: 09/15/2025Start: 09-19-2024 End: 68-05-7716Lftqdpimj [Mass/volume] in Serum or PlasmaMagnesium Lab Routine Hypomagnesemia Expected: 09/19/2024 (Approximate), Expires: 08/29/2025[facility] HealthcareComment on above:Expected: 09/19/2024 (Approximate), Expires: 08/29/2025Start: 08-29-2024 End: 85-50-6676CHN W Auto Differential panel - BloodCBC and differential Lab Routine Type 2 diabetes mellitus with stage 3b chronic kidney disease, without long-term current use of insulin (HCC) (CMS/HCC) Expected: 08/29/2024 (Approximate), Expires: 08/29/2025[facility] Work Phone: Comment on above:Expected: 08/29/2024 (Approximate), Expires: 08/29/2025Start: 08-29-2024 End: 17-85-1795Nygpiskzxpook metabolic 2000 panel - Serum or PlasmaComprehensive metabolic panel Lab Routine Essential hypertension ([facility]) Chronic diastolic (congestive) heart failure Coronary artery disease involving [place] coronary artery of [place] heart without angina pectoris ([facility]) Type 2 diabetes mellitus with diabetic polyneuropathy, without long-termcurrent use of insulin ([facility]) Expected: 08/29/2024 (Approximate), Expires: 08/29/2025[facility] Comment on above:Expected: 08/29/2024 (Approximate), Expires: 08/29/2025Start: 08-29-2024 End: 89-97-3577Hjglpzfb [Mass/volume] in Serum or PlasmaFerritin Lab Routine Type 2 diabetes mellitus with stage 3b chronic kidney disease, without long-term current use of insulin (HCC) ([facility]) Expected: 08/29/2024 (Approximate), Expires: 08/29/2025[facility] VA Medical CenterComment on above:Expected: 08/29/2024 (Approximate), Expires: 08/29/2025Start: 08-29-2024 End: 98-79-5780Ncpq + transferrin + TIBCIron + transferrin + TIBC Lab Routine Type 2 diabetes mellitus with stage 3b chronic kidney disease, without long-term current use of insulin (HCC) (CMS/[facility]) Expected: 08/29/2024 (Approximate), Expires: 08/29/2025[facility] HealthcareComment on above:Expected: 08/29/2024 (Approximate), Expires: 08/29/2025Start: 08-29-2024 End: 45-81-3651Lodra 1996 panel - Serum or PlasmaLipid panel Lab Routine Coronary artery disease involving [place] coronary artery of [place] heart without angina pectoris ([facility]) Expected: 08/29/2024 (Approximate), Expires: 08/29/2025[facility] HealthcareComment on above:Expected: 08/29/2024 (Approximate), Expires: 08/29/2025Start: 08-29-2024 End: 86-32-6487Baisqzafg [Mass/volume] in Serum or PlasmaMagnesium Lab Routine Type 2 diabetes mellitus with stage 3b chronic kidney disease, without long-term current use of insulin (HCC) ([facility]) Expected: 08/29/2024 (Approximate), Expires: 08/29/2025[facility] HealthcareComment on above:Expected: 08/29/2024 (Approximate), Expires: 08/29/2025Start: 08-29-2024 End: 18-35-4860Dwsxyiggrh.intact [Mass/volume] in Serum or PlasmaPTH, intact Lab Routine Type 2 diabetes mellitus with stage 3b chronic kidney disease, without long-term current use of insulin (HCC) ([facility]) Expected: 08/29/2024 (Approximate), Expires: 08/29/2025[facility] HealthcareComment on above:Expected: 08/29/2024 (Approximate), Expires: 08/29/2025Start: 08-29-2024 End: 43-33-8590Bspqrzgye [Moles/volume] in Serum or PlasmaPhosphorus Lab Routine Type 2 diabetes mellitus with stage 3b chronic kidney disease, without long-t erm current use of insulin (HCC) ([facility]) Expected: 08/29/2024 (Approximate), Expires: 08/29/2025[facility] HealthcareComment on above:Expected: 08/29/2024 (Approximate), Expires: 08/29/2025Start: 08-29-2024 End: 66-01-4188Wbxomqiyck complete panel - UrineUrinalysis with reflex microscopic (clean catch) Lab Routine Type 2 diabetes mellitus with stage 3b chronic kidney disease, without long-term current use of insulin (HCC) (CMS/HCC) Essential hypertension (CMS/HCC) Type 2 diabetes mellitus with diabetic polyneuropathy, without long-term current use of insulin (CMS/HCC) Expected: 08/29/2024 (Approximate), Expires: 08/29/2025[facility] HealthcareComment on above: Expected: 08/29/2024 (Approximate), Expires: 08/29/2025Start: 08-29-2024 End: 74-46-6391Bfbsago encounter procedureNOMS [facility] FMComment on above:Medicare annual wellness visit, subsequent (Primary Dx); Type 2 diabetes mellitus with stage 3b chronic kidney disease, without long-term current use of insulin (HCC) (CMS/HCC); Morbid (severe) obesity due to excess calories ([facility]); Acquired hypothyroidism ([facility]); Essential hypertension (CMS/HCC); Chronic diastolic (congestive) heart failure; Coronary artery disease involving [place] coronary artery of [place] heart without angina pectoris ([facility]HCC); Type 2 diabetes mellitus with diabetic polyneuropathy, without long-term current use of insulin ([facility])Start: 24-70-8911Csnbfxluep A1c measurementDiabetes: Hemoglobin C5YNZSXJohn J. Pershing VA Medical CenterStart: 19-02-3300Vyikpmsm identified in Urine by CultureUrine [facility] Glenbeightart: 87-23-3818Sskbj [facility] Hospitaltart: 05-25-2024 End: 49-54-0877Jpataqo encounter hkupmjjvg81/06/2025 10:30 AM EST Office Visit [facility] [address] [place] [address] Ирина Brown NP [address] [place] [address] Cardiomyopathy, ischemic (CMS/HCC) (Primary Dx); Type 2 [...] 40.0-44.9, adult (CMS/HCC); Coronary artery disease involving [place] coronary artery of [place] heart without angina pectoris (CMS/HCC); Essential hypertension (CMS/HCC); Acquired hypothyroidism (CMS/HCC); Factor V Leiden mutat ion (CMS/HCC); Statin intoleranceNOMS [facility] FMComment on above:Cardiomyopathy, ischemic (CMS/HCC) (Primary [...] 40.0-44.9, adult (CMS/HCC); Coronary artery disease involving [place] coronary artery of [place] heart without angina pectoris (CMS/HCC); Essential hypertension (CMS/HCC); Acquired hypothyroidism (CMS/HCC); Factor V Leiden mutation (CMS/HCC); Statin intoleranceStart: 05-01-2024 End: 01-92-6904Poqiyhy encounter zqftfljyz34/10/2025 9:00 AM EST Office Visit [facility] [address] [place] [address] Emilie Meza NP [address] [place] [address] [facility] FMStart: 01-22-2025Medicare Annual Wellness (AWV) Medicare Annual Wellness (AWV)[facility] HealthcareStart: 42-10-4288Amfbqrzgpypm Vaccine: 65+ Years (2 of 2 - PCV)Pneumococcal Vaccine: 65+ Years (2 of 2 - PCV) [facility] HealthcareComment on above:Postponed from 03/22/2003 (Patient Refused) Start: 79-43-2313Vsyvhnhmg vaccinationInfluenza Vaccine (#1)[facility] Healthcare Comment on above:Postponed from 11/21/2023 (Patient Ill Today)Start: 01-25-2024 End: 12-69-2867BQP W Auto Differential panel - BloodCBC and differential Lab Routine Type 2 diabetes mellitus with stage 3a chronic kidney disease, without long-term current use of insulin (HCC) (CMS/HCC) Essential hypertension (CMS/HCC) Expected: 01/25/2024 (Approximate), Expires: 01/24/2025[facility] Comment on above:Expected: 01/25/2024 (Approximate), Expires: 01/24/2025Start: 01-25-2024 End: 75-88-8537Jahbdkrgwgbee metabolic 2000 panel - Serum or PlasmaComprehensive metabolic panel Lab Routine Type 2 diabetes mellitus with stage 3a chronic kidney disease, without long-term current use of insulin (HCC) (CMS/HCC) Essential hypertension (CMS/HCC) Expected: 01/25/2024 (Approximate), Expires: 01/24/2025[facility] HealthcareComment on above:Expected: 01/25/2024 (Approximate), Expires: 01/24/2025Start: 01-25-2024 End: 76-05-7027Comavaxrvq A1c/Hemoglobin.total in BloodHemoglobin A1c Lab Routine Type 2 diabetes mellitus with stage 3a chronic kidney disease, without long-term current use of insulin (HCC) (CMS/HCC) Essential hypertension (CMS/HCC) Expected: 01/25/2024 (Approximate), Expires: 01/24/2025[facility] Comment on above:Expected: 01/25/2024 (Approximate), Expires: 01/24/2025Start: 01-25-2024 End: 29-02-2958YCU W/REFLEX TO FT4TSH W/REFLEX TO FT4 Lab Routine Acquired hypothyroidism (CMS/HCC) Expected: 01/25/2024 (Approximate), Expires: 01/24/2025 [facility] HealthcareComment on above:Expected: 01/25/2024 (Approximate), Expires: 01/24/2025Start: 01-25-2024 End: 75-43-6726Rwwnyrk encounter procedureNOMS CW FMComment on above:Arrived Start: 01-10-2024 End: 76-45-7539Pqnpaoz encounter ycudsdgfs90/21/2024 11:00 AM EDT Office Visit [facility] [address] [place] [address] Emilie Meza, MARKETING COMPLIANCE MANAGER [address] [place] [address] [facility] FMStart: 08-00-7577OgrbwrbzuChillicothe Hospital Start: 48-81-9703Wkrsu culture for bacteria, including anaerobic screenBlood CultureOhioHealth Arthur G.H. Bing, MD, Cancer Centertart: 75-95-8446Olwtezfi admission [facility] Cancer Centertart: 44-71-9941PXWXH-19 Vaccine ( season)COVID-19 Vaccine ( season)[facility] Start: 42-46-9782Vwvxucadb vaccinationInfluenza Vaccine (#1)[facility] Healthcare Start: 33-41-4984Kqlhbpeadb A1c measurementDiabetes: Hemoglobin S6CVLZE HealthcareStart: 41-40-5542NEM, Provider: Joseluis Casey, Status: Pen, Time: 9:20 AMFUV, Provider: Joseluis Casey, Status: Pen, Time: 9:20 AMSt. Francis [facility] CenterAquilino 250 DO Work Phone: Start: 72-98-0907WIYC ONLY, Provider: AQUILINO [facility] NUCLEAR ,[id number], Status: Pen, Time: 1:00 PMREST ONLY, Provider: AQUILINO PAYNEI NUCLEAR 01,[id number], Status: Pen, Time: 1:00 PM-[facility] Heart- Aquilino 250 DO Work Phone: Start: 46-68-5788GWXUWTUYG0, Provider: AQUILINO PAYNEI NUCLEAR 01,[id number], Status: Pen, Time: 1:00 PMSTRESSNUC2, Provider: AQUILINO PAYNEI NUCLEAR 01,[id number], Status: Pen, Time: 1:00 PM-[facility]- [place] 250 DO Work Phone: Start: 76-55-8137DtfxemglqChillicothe Hospital Start: 12-36-4056Oxutvixa admissionOhioHealth Arthur G.H. Bing, MD, Cancer Centertart: 19-87-4061TCS High Risk: (Elderly (60+) or Population) (1 - 1-dose 75+ series)RSV High Risk: (Elderly (60+) or Population) (1 - 1-dose 75+ series)[facility] HospitalStart: 09-45-2891Cbnduivmnmkt vaccinationPneumococcal Vaccine (2 of 2 - PCV)[facility] Start: 75-95-8040Fvfdjofghkys Vaccine: 65+ Years (2 of 2 - PCV)Pneumococcal Vaccine: 65+ Years (2 of 2 - PCV)[facility] HealthcareStart: 22-53-0388Jwauxfsdm for osteoporosisBone Density ScanUnWilson Street Hospital: 07-19-1957 DTaP/Tdap/Td Vaccines (1 - Tdap)DTaP/Tdap/Td Vaccines (1 - Tdap)[facility]: 65-84-6626Qfocr screening for proteinDiabetes: Urine Protein ScreeningLONE PEAK HOS[facility]ITAL HealthcareStart: 64-91-8006Rmoijs Vaccines (1 of 2) Zoster Vaccines (1 of 2)[facility]: 07-19-1945 Glaucoma screeningDiabetes: Retinopathy ScreeningUnWilson Street Hospital: 44-83-0163Wumxvhfhbu measurementCreatinine LevelUnWilson Street Hospital: 79-96-8201Gvsoauoohj A1c measurementDiabetes: Hemoglobin V0UModumzanhpBrecksville VA [facility]: 52-48-7805Fxfuw panelLipid PanelBrecksville [facility]: 04-29-1938Medicare Annual Wellness VisitMedicare Annual Wellness Visit (AWV)[facility] Start: 43-71-6037Xfqedynfj measurementPotassium LevelUnWilson Street Hospital: 56-75-2681Abxgyaz stimulating hormone measurementTSH Level [facility]: 80-40-3754Stlac screening for protein Diabetes: Urine Protein ScreeningWhite HospitalBlood chemistryChillicothe HospitalMicroalbumin/Creatinine panel in random UrineMicroalbumin / creatinine urine ratio Lab Routine Type 2 diabetes mellitus with stage 3a chronic kidney disease, without long-term current use of insulin (HCC) ([facility]) Essential hypertension ([facility]) Ordered: 01/25/2024[facility] Work Phone: Comment on above:Ordered: 4Patient Education [facility] Work Phone: Patient referralAkron Children'S [facility] Work Phone: [facility] - [facility] Lab Routine 07/06/2024 1:52 PM [facility]TSub[facility] Immunizations Immunization DateImmunizationNotesCare VfzqsaedZuopsxzs39-79-5978Gmysaotal, injectable, Madin Austin Canine Kidney, preservative free, quadrivalentBrittany Derrick MARKETING COMPLIANCE MANAGER Work Phone: [facility] Medical CenterNgfdgnfoei94-06-9274fiavxjbgr virus vaccine, unspecified formulationИрина Brown MARKETING COMPLIANCE MANAGER Work Phone: noProgress West HospitalCvghxpdzly17-05-5453Elxgvzz COVID-19 Vaccine 100 MCG/0.5ML Intramuscular [facility] Gladwinlui Schultz Work Phone: [phone]-FuodeM [facility] 004 DO Work Phone: [phone] trivalent influenza vaccine, adjuvanted, preservative freeNorton Audubon Hospitallui Zamorad Work Phone: mpM Health [facility]view [facility] 250 DO Work Phone: [phone]s virus vaccine, unspecified formulationSirishajackei WillsonMeza MARKETING COMPLIANCE MANAGER Work Phone: [facility] CenterThhurwccah59-00-5977Pvyhevf COVID-19 Vaccine 100 MCG/0.5ML Intramuscular SuspensionShaikh Fawwad Work Phone: [phone]-AwhtnGabriella V[place] [address] DO Work Phone: [phone] COVID-19 Vaccine 100 MCG/0.5ML Intramuscular SuspensionShaikh Fawwad Work Phone: [phone]-HlwyoGabriella [place] [address] DO Work Phone: [phone] trivalent influenza vaccine, adjuvanted, preservative freeShaikh Fawwad Work Phone: [phone]-BbjcdGabriella [place] [address] DO Work Phone: [phone] trivalent influenza vaccine, adjuvanted, preservative freeShaikh Fawwad Work Phone: [phone]-MmdhmGabriella [place] [address] DO Work Phone: [phone] trivalent influenza vaccine, adjuvanted, preservative freeShaikh Fawwad Work Phone: [phone]-MpywoGabriella [place] [address] DO Work Phone: [phone] trivalent influenza vaccine, adjuvanted, preservative freeShaikh Fawwad Work Phone: [phone]-DsvcsGabriella [place] [address] DO Work Phone: [phone], injectable, quadrivalent, contains preservativeShaikh Fawwad Work Phone: [phone]-YxwlhGabriella Ville [address] DO Work Phone: [phone], seasonal, injectableShaikh Fawwad Work Phone: [phone]-Ebhte [facility] 250 DO Work Phone: [phone] polysaccharide vaccine, [address] Work Phone: [phone]-Gekkr [facility] 250 DO Work Phone: Comment on above:Series: Payers DatePayer CategoryPayerPolicy [id number] Care (Private)[facility] .[id number] Health [id number] 2003Medicare [id number] [id number]0-2882Bhuzfgl [id number] 840.1.946352.3.57[id number] 2.840.1.603771.3.57[id number] 2.840.1.064975.3.579.2.16454-71-4195Yqrtijs3693669 2.16840.1.792686.3.579.2.84962-34-2844Mikamcn3745119 2.840.1.737917.3.57[id number] 2.16840.1.757256.3.579.2.421454-69-2862Oxpgudz97994812 2.0.1.511507.3.579.2.070699-99-4897Jzviuvj703079259 2.0.1.280677.3.57[id number] 2.0.1.119478.3.579.2.057[id number] 2..1.188894.3.579.2.41355-19-4687Uvohykm160845009 2.840.1.423362.3.579.2.054[id number] 2.0.1.482198.3.57[id number] 2.840.1.432186.3.579.2.695063-02-5258Hivmvlz83080101 2.840.1.577862.3.57[id number] 2.16840.1.446534.3.579.2.049883-99-2037Tqwcuht0934490 2.840.1.642866.3.579.2.770172-92-4956Epmejpo6452929 2.0.1.869398.3.579.2.944326-05-2238Hgppvqz0475551 2.840.1.79549[id number] 2..840.1.637500.3.579.2.531 Social History DateTypeDetailFacilityStart: 06-22-2022 End: 18-21-9318Eyhdhsb smoking status NHISEx-smoker (finding)[facility] Centertart: 16-96-7930Pys Assigned At BirthFeKing's Daughters Medical Center Ohiotart: 10-25-2023 End: 36-78-8880Tivzglem useCaffeine useLake View Memorial Hospital 250 DO Work Phone: Comment on above:2.5 cups coffee in morning;Start: 10-19-2023 End: 59-14-8519Iktiifa smoking status NHISNever smoked tobaccoNOMS Healthcare Start: 10-19-2023 End: 95-28-9595Hxwpliu use and exposureSmokeless tobacco non-userNOMS Healthcare Start: 10-25-2023 End: 20-40-3914Fchqaaznl beverage intakeLifetime non-drinker (finding)[facility] HealthcareStart: 10-25-2023 End: 61-27-6145Qsboows use panelNOMS HealthcareStart: 98-70-8745Jki assigned at birthNot on fileNOMS HealthcareStart: 60-84-2815YpmNvqmuy (finding)[facility] Centertart: 26-30-2657XdyDwnowbKoninwxhntSelect Medical Specialty Hospital - CantonNEGATED: Highlighted rowStart: NINFHistory of tobacco usePassive smoker [facility] Medical Equipment Procedure CodeEquipment CodeEquipment Original TextEquipment IdentifierDates1 each by Other route Daily Use as [id number]: 10-31-2024 End: 02-08-2025 Goals DatePatient GoalDesired Activity/State Functional Status IxkwLiiuxsbwugFgkjnoJlegdsxs28-24-7379Auuiepy Health Questionnaire 2 item (PHQ- 2) [Reported][facility] CenterCjudwpfvnb41-88-6453Yhvjhhwgog statusPatient at Baseline [facility] Work Phone: [phone]anzjrp statusPatient at Baseline [facility] Work Phone: [facility] Mental Status YnieYcmyanvrfoDztlgfUjosrpkw38-45-5477Aremedlkw functionCognitive Status [facility] Work Phone: [phone]odbtdc functionCognitive Status [facility]Nor[facility] Work Phone: Clinical Notes 06-22-2022 to 10-31-2024 Note Date & WwjqXqacQxwpofic42-23-7276 History of Present illness Narrative* Ирина Brown [...] has a fu in 1 year * рИина Brown, YOAN - 10/31/2024 9:20 AM EDT [...] (coronary atherosclerotic disease) CHF (congestive heart failure) ([facility]) Chronic diastolic heart failure (HCC) CKD stage 3 secondary to diabetes ([facility]) CLL (chronic lymphocytic leukemia) ([facility]) Edema, unspecified type Factor 5 Leiden [...] ARTERY BYPASS GRAFT x4 OTHER SURGICAL HISTORY [place] Filter family history includes Diabetes in an [...] Morbid (severe) obesity due to excess calories ([facility]) Discussed with patient their BMI (actual, [...] jazmine, and diuretic\ [place]s [place] cardiology [place] Chronic kidney disease, stage 3b ([facility]) Control blood pressure and blood sugars Check [...] AM EDTAssociated Problem(s): Factor V Leiden mutation ([facility]) On xarelto * Ирина Brown NP - 10/31/2024 6:28 AM EDTAssociated Problem(s): Acquired hypothyroidism Current med: levothyroxine Check labs yearly, and prn dose changes or changes in symptoms * Ирина Brown NP - 10/31/2024 6:28 AM EDTAssociated Problem(s): Morbid (severe) obesity due to excess calories ([facility]) Discussed with patient their BMI (actual, verses [...] EDTAssociated Problem(s): Chronic kidney disease, stage 3b ([facility]) Control blood pressure and blood sugars Check labs yearly and prn * Ирина Brown NP - 10/31/2024 6:27 AM EDTAssociated Problem(s): Chronic diastolic (congestive) heart failure (HCC) On b jazmine, and diuretic\ Follows with cardiology in [place] * Ирина Brown NP - 10/31/2024 6:27 [...] Adequate blood sugar control documented in this encounterJohn J. Pershing VA Medical CenterKxejkknuev94-28-4018 Instructions* Patient Instructions* Ирина Brown NP - 10/31/2024 9:20 AM EDT Check blood pressure at home for next 2 days and call me morning with results, we may needto adjust blood pressure meds Try to increase the magnesium supplement to 2 pills (500mg total) Magnesium, 3 weeks check the blood documented in this encounterJohn J. Pershing VA Medical CenterYghltqzexv78-13-4939 History of Present illness Narrative* Joseluis Casey [...] and UTI and [address] [employer] and now is back home, independent. She [...] Allergies Yusef inhibitors, Arb-angiotensin receptor antagonist, and Faxbghb-nai-fmd reductase inhibitors Current Medications Current Outpatient Medications [...] exam, discussion and plan. documented in this encounterWhite Hospital Work Phone: [phone]) 956-968707-30-2025 Instructions* Patient Instructions* Selena Jones LPN - [...] sent through Care Everywhere. * Quitting smoking (Congolese) * Heart Healthy Diet (Congolese) documented in this encounterUnOhioHealth Berger Hospital Work Phone: [phone] 115-886706-10-2025 History of Present illness Narrative* Ирина Brown [...] the last year: yes Specialist: Dr Casey [facility]/Living Will: working that Concerns: discharged from [facility] SUBJECTIVE: MEDICATIONS: Current Outpatient Medications Medication Instructions [...] List Items Addressed This Visit Acquired hypothyroidism ([facility]) Current med: levothyroxine Check labs yearly, and prn dose changes or changes in symptoms Essential hypertension ([facility]) Please check blood pressure daily and record DASH diet Limit caffeine Take medication as directed Contact office if chest pain, pressure, dizziness, shortness of breath, swelling legs Recommend slow position changes Current meds; diuretic, and b jazmine Relevant Orders Comprehensive metabolic panel Urinalysis with reflex microscopic (clean catch) Morbid (severe) obesity due to excess calories ([facility]) Discussed with patient their BMI (actual, verses recommended). We have also discussed lifestyle modifications: attempts to perform physical activity as chronic conditions allow, also to monitor dietary intake: increasing protein/fruits/veggies and lowering carb intake (unless contraindicated). Limit sodas, juices, and sugary drinks. Coronary artery disease involving [place] coronary artery of [place] heart without angina pectoris ([facility]) Unable to tolerate statin Does take b jazmine Relevant Orders Comprehensive metabolic panel Lipid panel Type 2 diabetes mellitus with diabetic chronic kidney disease ([facility]) Check blood sugars daily, notify if [...] Type 2 diabetes mellitus with diabetic polyneuropathy ([facility]) No current meds for this Recommend freq foot checks, proper fitting shoes Adequate blood sugar control * Ирина Brown NP - 08/29/2024 6:35 AM EDTAssociated Problem(s): Coronary artery disease involving [place] coronary artery of [place] heart without angina pectoris ([facility]) Unable to tolerate statin Does take b jazmine * Ирина Brown NP - 08/29/2024 6:35 AM EDTAssociated Problem(s): Chronic diastolic (congestive) heart failure On b jazmine, and diuretic * Ирина Brown NP - 08/29/2024 6:35 AM EDTAssociated Problem(s): Essential hypertension ([facility]) Please check blood pressure daily and record DASH diet Limit caffeine Take medication as directed Contact office if chest pain, pressure, dizziness, shortness of breath, swelling legs Recommend slow position changes Current meds; diuretic, and b jazmine * Ирина Brown NP - 08/29/2024 6:35 AM EDTAssociated Problem(s): Acquired hypothyroidism ([facility]) Current med: levothyroxine Check labs yearly, and prn dose changes or changes in symptoms * Ирина Brown NP - 08/29/2024 6:34 AM EDTAssociated Problem(s): Morbid (severe) obesity due to excess calories ([facility]) Discussed with patient their BMI (actual, verses recommended). We have also discussed lifestyle modifications: attempts to perform physical activity as chronic conditions allow, also to monitor dietary intake: increasing protein/fruits/veggies and lowering carb intake (unless contraindicated). Limit sodas, juices, and sugary drinks. * Ирина Brown NP - 08/29/2024 6:34 AM EDTAssociated Problem(s): Type 2 diabetes mellitus with diabetic chronic kidney disease ([facility]) Check blood sugars daily, notify if [...] up yearly and prn documented in this encounterJohn J. Pershing VA Medical [id number] History of Present illness Narrative* LIZETTE SILVERMAN [...] problems. Hypertensive end-organ damage includes kidney disease, CAD/NM and heart failure. Identifiable causes of hypertension [...] At moderate risk for fall Atrial fibrillation ([facility]) CAD (coronary atherosclerotic disease) ([facility]) CHF (congestive heart failure) ([facility]) Chronic diastolic heart failure ([facility]) 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) ([facility]) CLL (chronic lymphocytic leukemia) ([facility]) Edema, unspecified type Factor 5 Leiden mutation, heterozygous ([facility]) Fatigue Gout History of DVT (deep vein thrombosis) History of non-Hodgkin's lymphoma HLD (hyperlipidemia) ([facility]) HTN (hypertension) ([facility]) Hypercholesteremia ([facility]) Hyperuricemia Hypothyroid ([facility]) Iron deficiency anemia Left ankle swelling Peripheral neuropathy S/P CABG (coronary artery bypass graft) Type 2 diabetes mellitus ([facility]) Past Surgical History: Procedure Laterality Date APPENDECTOMY CARDIAC SURGERY Stents CORONARY ARTERY BYPASS GRAFT x4 OTHER SURGICAL HISTORY [place] Filter family history includes Diabetes in an [...] and sugary drinks. Coronary artery disease involving [place] coronary artery of [place] heart without angina pectoris ([facility]) Unable to tolerate statin Does take b jazmine Factor V Leiden mutation ([facility]) On xarelto Type 2 diabetes mellitus with diabetic chronic kidney disease ([facility]) Check blood sugars daily, notify if [...] Type 2 diabetes mellitus with diabetic cataract ([facility]) Chronic diastolic (congestive) heart failure ([facility]) On b jazmine, and diuretic Chronic kidney disease, stage 3b (HCC) ([facility]) Control blood pressure and blood sugars Check labs yearly and prn Type 2 diabetes mellitus with diabetic polyneuropathy ([facility]) No current meds for this Recommend freq foot checks, proper fitting shoes Adequate blood sugar control 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 elsewhere (CMS/HCC) Body mass index (BMI) 40.0-44.9, adult ([facility]) Cardiomyopathy, ischemic ([facility]) - Primary Noted from cardiology Current meds: b jazmine, aldactone, diuretics Statin intolerance Other Visit Diagnoses Chronic lymphocytic leukemia of B-cell type not having achieved remission ([facility]) Hyperuricemia without signs of inflammatory arthritis and tophaceous disease * Ирина Brown NP - 05/25/2024 6:52 AM ESTAssociated Problem(s): Factor V Leiden mutation ([facility]) On xarelto * Ирина Borwn NP - 05/25/2024 6:51 AM ESTAssociated Problem(s): [...] AM ESTAssociated Problem(s): Coronary artery disease involving [place] coronary artery of [place] heart without angina pectoris (CMS/HCC) Unable to [...] Type 2 diabetes mellitus with diabetic polyneuropathy ([facility]) No current meds for this Recommend freq foot checks, proper fitting shoes Adequate blood sugar control documented in this encounterJohn J. Pershing VA Medical [id number] Instructions* Patient Instructions* Ирина Brown NP - 05/25/2024 10:30 AM EST No changes in meds In 3 months medicare wellness documented in this [facility]11-05-2024 History of Present illness Narrative* Emilie Meza NP - 01/25/2024 11:07 AM ESTAssociated Problem(s): Essential hypertension ([facility]) Currently taking Metoprolol Succincate 100mg Checks [...] without long-term current use of insulin (HCC) ([facility]) Most recent labs: hemoglobin A1C Average [...] 01/25/2024 11:06 AM ESTAssociated Problem(s): Acquired hypothyroidism ([facility]) On levothyroxine. TSH needs checked. Labs ordered today. * Emilie Meza NP - 01/25/2024 11:06 AM ESTAssociated Problem(s): Stage 3a chronic kidney disease (HCC) ([facility]) Most recent Creatinine: 1.28 eGFR 40 [...] Need for influenza vaccination documented in this encounterJohn J. Pershing VA Medical [id number] Instructions* Patient Instructions* Emilie Meza NP - 01/25/2024 9:00 AM EST FASTING labs ordered. Nothing to eat or drink for 12 hours prior to blood draw. Water and black coffee ok. Call if you need anything! documented in this encounterJohn J. Pershing VA Medical [id number] History of Present illness Narrative* Emilie Meza NP - 01/10/2024 4:55 PM EDTAssociated Problem(s): Atrial fibrillation (CMS/HCC) Currently taking Eliquis. Was admitted to [facility] for NSTEMI 12/24 Echo ordered EF was 60%-65% [facility] discharged, believed troponin elevations were related to [...] [facility] Follow-Up: Was admitted to [facility] for NSTEMI 12/24-12/27 Echo ordered EF was 60%-65% [facility] discharged, believed troponin elevations were related to [...] Primary Currently taking Eliquis. Was admitted to [facility] for NSTEMI 12/24 Echo ordered EF was 60%-65% [facility] discharged, believed troponin elevations were related to brief episode of Afib RVR No medication changes States she feels better presently, but is still fatigued. Follows with Dr. Casey- Cardiology; Has not made an appointment to follow up with Cards yet. Advised pt to do so. documented in this [facility]10-21-2024 Instructions* Patient Instructions* Emilie Meza NP - 01/10/2024 11:00 AM EDT Follow up with Cardiology- Call office to schedule appointment Joseluis Vuong DO [address] [id number] documented in this [facility]10-08-2024 Progress note Author Nelson Orourke [facility] December 27, 2023 10:24pmNote Date/TimeOct2023 10:24pm[place] [address] Hospitalist Progress Note Signed Patient: Mohan Espinoza MR#: [id number] : 1935 Acct:[id number] Age/Sex: 88 / F Adm Date: 4 Loc: Room: [address] [place] [address] Type: ADM IN Attending Dr: Nelson Orourke [...] Tablet PO 12/25/24 08:59 40 mg DAILY PERAL Administration Glucose 0 gm 12/25/23 18:11 Dextrose [...] A&P - Hospitalist Assessment/Plan (1) Type 2 NM (myocardial infarction): Plan Documented By: Nelson Orourke DO 12/27/232221 Signed By: <Electronically signed by Nelson Orourke, > 12/27/232223 [facility] Work Phone: 1(186) 757-550910-06-2024 Progress note Author Apryl Shirley [facility] December 26, 2023 5:24pmNote Date/TimeOct2023 3:47pm[place] [address] Hospitalist Progress Note Signed Patient: Mohan Espinoza MR#: [id number] : 1935 Acct:[id number] Age/Sex: 88 / F Adm Date: 4 Loc: Room: [address] [place] [address] Type: ADM IN Attending Dr: Apryl Shirley MD Copies to: ~ Date of Service: 12/26/2023 Subjective Subjective Narrative: Assessment And Plan 88-year-old female with previously known history of atrial fibrillation, hypertension, CKD , diabetes and hyperlipidemia, Hypothyroidism She presented to [facility] () ER earlier this evening with initially reported shortness of breath type 2 myocardial infarction Rule out NSTEMI She denies any chest pain or worsening SOB during her stay HS-Troponin 50 ()> 200 () > 280 ([facility]) > 73 (today) LDL 115 EKG [...] A&P - Hospitalist Assessment/Plan (1) Type 2 NM (myocardial infarction): Plan Documented By: Apyrl Shirley MD 12/26/23 1540 Signed By: <Electronically signed by Apryl Shirley MD> 12/26/23 2154 [facility] Work Phone: 1(618) 824-584510-06-2024 Progress note Author Apryl Shirley [facility] December 25, 2023 11:11pmNote Date/TimeOct2023 6:36pm[place] [address] Hospitalist Progress Note Signed Patient: Mohan Espinoza MR#: [id number] : 1935 Acct:[id number] Age/Sex: 88 / F Adm Date: 4 Loc: Room: [address] [place] [address] Type: ADM IN Attending Dr: Apryl Shirley MD Copies to: ~ Date of Service: 12/25/2023 Subjective Subjective Narrative: Assessment And Plan 88-year-old female with previously known history of atrial fibrillation, hypertension, CKD , diabetes and hyperlipidemia, Hypothyroidism She presented to [facility] () ER earlier this evening with initially reported shortness of breath type 2 myocardial infarction Rule out NSTEMI She denies any chest pain or worsening SOB HS-Troponin 50 ()> 200 () > 280 ([facility]) LDL 115 EKG () shows afib [...] Units/3 Ml Insuln.Pen SUBCUT 12/24/24 21:59 TID.WM.HS [facility] Protocol Insulin Glargine 15 units 12/25/23 22:00 [...] A&P - Hospitalist Assessment/Plan (1) Type 2 NM (myocardial infarction): Plan Documented By: Apryl Shirley MD 12/25/234 Signed By: <Electronically signed by Apryl Shirley MD> 12/25/23 9185 [facility] Work Phone: 1(368) 381-198810-05-2024 History and physical note Author Ren Mohan [facility] December 25, 2023 5:41amNote Date/TimeOct2023 3:54[address] [id number] Hospitalist H&P Signed Patient: Mohan Espinoza MR#: [id number] : 1935 Acct:[id number] Age/Sex: 88 / F Adm Date: 4 Loc: Room: [address] [place] [address] Type: ADM IN Attending Dr: Ren Mohan DO Copies to: Ren Mohan, NO FAMILY PHYSICIAN~ HPI DATE OF EXAMINATION: 12/25/23 CHIEF COMPLAINT: Shortness of breath HISTORY OF PRESENT ILLNESS: This patient is an 88-year-old female with previously known history of atrial fibrillation, hypertension, type 2 diabetes and hyperlipidemia. She has been evaluated here at [facility] necessitating cardiology consultation for troponin elevation in [...] in the evening with ER physician at [place] and with rising troponinsACS cannot be excluded [...] glipizide. Continue on 150 mg metoprolol ER. [facility] Medical History (Updated 12/25/23 @ 05:41 by Ren Mohan DO) Non-Hodgkin lymphoma in remission Patient recieved chemo therapy Problem List clean-up per request of Phys. [facility] [place] filter [facility] Problem List clean-up per [...] List clean-up per request of Phys. [facility] Surgical History (Updated 03/03/23 @ 14:47 by [employer]) History of appendectomy Problem List clean-up per request of Phys. [facility] History of open heart surgery x4 Problem List clean-up per request of Phys. [facility] History of heart artery stent March 2018- 3 stents placed at [facility] Problem List clean-up per request of Phys. [facility] Family History Father Diabetes Mother [...] signed by Ren Mohan DO> 12/25/23 0541 [facility] Work Phone: 1(646) 963-989204-04-2023 Progress note Author Brissa Hoffman [facility] June 23, 2022 5:18pmNote Date/TimeApril 2022 12:11pm[place] [address] Hospitalist Progress Note Signed Patient: Mohan Espinoza MR#: [id number] : 1935 Acct:[id number] Age/Sex: 86 / F Adm Date: 3 Loc: Room: [address] [place] [address] Type: ADM IN Attending Dr: Brissa Hoffman [...] Tablet PO 06/22/23 06:29 200 mcg DAILY@0630 [facility] Administration Losartan Potassium 100 mg 06/22/22 09:00 06/22/22 09:07 Losartan 50 Mg Tablet PO 06/22/23 08:59 Not Given DAILY [facility] Metoprolol Succinate 150 mg 06/24/22 09:00 Metoprolol Succinate 50 Mg Tab.Er.24h PO 06/24/23 08:59 DAILY [facility] Rivaroxaban 15 mg 06/22/22 17:00 06/22/22 17:00 Rivaroxaban 15 Mg Tablet PO 06/22/23 16:59 15 mg DAILY@17 [facility] Administration A&P - Hospitalist Assessment/Plan (1) Elevated [...] <Electronically signed by Brissa Hoffman MD> 06/23/22 1716 [facility] Work Phone: 1(236) 420-495004-04-2023 Hospital Discharge instructionsAmbulatory Orders* Initiate Home Health Time Frame: 06/23/22, Location: Determined By Patient Additional Instructions Please call and schedule an appointment with your established Car Scrubber. HOME HEALTH TO MANAGE: Nursing/PT to eval and treat Monitor VS per protocol Monitor Cardiovascular assessment--Elevated troponin, CAD, HTN Please draw a BMP in 5 days, Send to Dr. Fawwad Assist with medication management and provide medication education Assist with glucose control Provide education on high risk fall precautions [facility] Work Phone: 1(365) 988-770804-04-2023 Progress note Author W Jacinto [facility] June 23, 2022 9:56amNote Date/TimeApril 2022 9:[address] [id number] Cardiology Progress Note Signed Patient: Mohan Espinoza MR#: [id number] : 1935 Acct:[id number] Age/Sex: 86 / F Adm Date: 3 Loc: Room: [address] [place] [address] Type: ADM IN Attending Dr: Brissa Hoffman [...] above, to follow-up with Dr. Randolph in [place], for further evaluation and management Exam Physical [...] Acute (8) Chronic anticoagulation: Code(s): Z79.01 - termination clerk (current) use of anticoagulants Status: Acute (9) Factor V Leiden: Code(s): D68.51 - Activated protein C resistance Status: Acute Documented By: Sharron Casey DO 06/23/22 0952 Signed By: <Electronically signed by Sharron Casey DO> 06/23/22 0956 [facility] Work Phone: [phone]) [phone] Progress note Author Brissa Hoffman [facility] June 22, 2022 2:14pmNote Date/TimeApr2022 2:12pm[place] [address] Hospitalist Progress Note Signed Patient: Mohan Espinoza MR#: [id number] : 1935 Acct:[id number] Age/Sex: 86 / F Adm Date: 3 Loc: 4 Room: [address] [place] [address] Type: ADM IN Attending Dr: Brissa Hoffman [...] Tablet PO 06/22/23 06:29 200 mcg DAILY@0630 [facility] Administration Losartan Potassium 100 mg 06/22/22 09:00 06/22/22 09:07 Losartan 50 Mg Tablet PO 06/22/23 08:59 Not Given DAILY [facility] Metoprolol Succinate 100 mg 06/22/22 09:00 06/22/22 09:08 Metoprolol Succinate 100 Mg Tab.Er.24h PO 06/22/23 08:59 Not Given DAILY [facility] Rivaroxaban 15 mg 06/22/22 17:00 Rivaroxaban 15 Mg Tablet PO 06/22/23 16:59 DAILY@17 [facility] A&P - Hospitalist Assessment/Plan (1) Elevated troponin: [...] signed by Brissa Hoffman MD> 06/22/22 1414 [facility] Work Phone: [phone]) 240-107704-03-2023 Consult note Author Sharron Casey [facility] June 22, 2022 12:49pmNote Date/TimeApr2022 11:[address] [address] Cardiology Consult Note Signed Patient: Mohan Espinoza MR#: [id number] : 1935 Acct:[id number] Age/Sex: 86 / F Adm Date: 3 Loc: Room: [address] [place] [address] Type: ADM IN Attending Dr: Brissa Hoffman MD Copies to: MD Shaikh Marion Vidal MD W Scott Sheldon, DO~ Cardiology HPI History of Present Illness Consult Date: 06/22/22 Reason for Consult: Elevated cardiac biomarkers, atrial fibrillation, ASHD HPI: Ms. Espinoza is a 86 year old female seen in cardiology consultation at the request of hospitalist after patient was transferred from [place] emergency room with elevated cardiac biomarkers. She presented with symptoms of UTI, bodyaches, lower extremity weakness, rigors; very similar to symptoms shehas had before with urinary tract infections. She did not complaining of any shortness of breath or chest discomfort, she was complaining of lower abdominal discomfort as well. In [place] ER, her initial high-sensitivity troponins came back elevated at 100, serum creatinine 1.8, ECG consistent with controlled atrial fibrillation. There were initial attempts to transfer herto [facility] with her primary pilates coordinator Dr. Randolph. They were unable to accept her immediately, there was some concern in the ER that she could not be admitted to [facility] (? Unknown reason), therefore [facility] hospitalist was contacted and accepted patient in [...] A-fib Impression/recommendations: Probable type II non-ST elevation NM secondary to multiple comorbidities including obesity, chronic [...] imaging; this canbe completed with her primary pilates coordinator Review of Systems Review of Systems All [...] stent March 2018- 3 stents placed at [facility] History of open heart surgery [...] x10E3/uL Lymph # (Auto) 1.4 (1.00-4.8) x10E3/uL [place] # (Auto) 0.9 H (0.0-0.8) x10E3/uL Eos [...] signed by Sharron Casey DO> 06/22/22 1249 [facility] Work Phone: 1([phone]) 156-140604-03-2023 History and physical note Author Toi Johnson [facility] June 22, 2022 7:15amNote Date/TimeApril 2022 4:22[place] [address] Hospitalist H&P Signed Patient: Mohan Espinoza MR#: [id number] : 1935 Acct:[id number] Age/Sex: 86 / F Adm Date: 3 Loc: 4 Room: [address] [place] [address] Type: ADM IN Attending Dr: Toi Johnson [...] stent March 2018- 3 stents placed at [facility] History of open heart surgery [...] resident's note above. Patient transferred here to [facility] due to elevated troponin and her [...] function. Documented By: Toi Johnson MD 3 [id number] Signed By: <Electronically signed by Toi Johnson MD> 06/22/22 0715 <Electronically signed by DO FLAQUITA Cano> 06/22/22 0614 [facility] Work Phone: Evaluation note* Diagnosis Onset Date Resolution Status Atrial fibrillation acuteCAD (coronary artery disease)acuteChronic anticoagulationacuteCKD (chronic kidney disease), stage IIIacuteDiabetes mellitusacuteDyspneaacuteElevated troponinacuteFactor V LeidenacuteH/O pulmonary artery thrombosisacuteHistory of heart artery stentacuteHistory of open heart surgeryacuteHTN (hypertension)acute [facility] Work Phone: Evaluation note* Diagnosis Onset Date Resolution Status NSTEMI (non-ST elevated myocardial infar ction) acuteType 2 NM (myocardial infarction)acute [facility] Work Phone: Evaluation note* Diagnosis Unspecified atrial fibrillation (CMS/HCC) documented in this encounter [facility] HealthcareEvaluation note* Diagnosis Primary hypertension (CMS/HCC)- Primary Unspecified essential hypertension Hypothyroidism, unspecified type (CMS/HCC) Type 2 diabetes mellitus with stage 3a chronic kidney disease, without long-term current use of insulin (HCC) (CMS/HCC) Longstanding persistent atrial fibrillation (CMS/HCC) Coronary artery disease involving [place] coronary artery of [place] heart without angina pectoris (CMS/HCC) Essential hypertension (CMS/HCC) Unspecified essential hypertension Stage 3a chronic kidney disease (HCC) (CMS/HCC) Acquired hypothyroidism (CMS/HCC) Unspecified hypothyroidism Chronic lymphocytic leukemia (CMS/HCC) Chronic lymphoid leukemia, without mention of having achieved remission Medicare annual wellness visit, subsequent Longstanding persistent atrial fibrillation (CMS/HCC)- Primary documented in this encounter [facility] HealthcareEvaluation note* Diagnosis Primary hypertension (CMS/HCC)- Primary Unspecified essential hypertension Hypothyroidism, unspecified type (CMS/HCC) Type 2 diabetes mellitus with stage 3a chronic kidney disease, without long-term current use of insulin (HCC) (CMS/HCC) Longstanding persistent atrial fibrillation (CMS/HCC) Coronary artery disease involving [place] coronary artery of [place] heart without angina pectoris (CMS/HCC) Essential hypertension [...] atrial fibrillation (CMS/HCC) Coronary artery disease involving [place] coronary artery of [place] heart without angina pectoris (CMS/HCC) Essential hypertension [...] without complications (CMS/HCC) documented in this encounter [facility] HealthcareEvaluation note* Diagnosis Primary hypertension (CMS/HCC)- Primary Unspecified essential hypertension Hypothyroidism, unspecified type (CMS/HCC) Type 2 diabetes mellitus with stage 3a chronic kidney disease, without long-term current use of insulin (HCC) (CMS/HCC) Longstanding persistent atrial fibrillation (CMS/HCC) Coronary artery disease involving [place] coronary artery of [place] heart without angina pectoris (CMS/HCC) Essential hypertension [...] kidney disease (CMS/HCC) documented in this encounter [facility] HealthcareEvaluation note* Diagnosis Primary hypertension (CMS/HCC)- Primary Unspecified essential hypertension Hypothyroidism, unspecified type (CMS/HCC) Type 2 diabetes mellitus with stage 3a chronic kidney disease, without long-term current use of insulin (HCC) (CMS/HCC) Longstanding persistent atrial fibrillation (CMS/HCC) Coronary artery disease involving [place] coronary artery of [place] heart without angina pectoris (CMS/HCC) Essential hypertension [...] atrial fibrillation (CMS/HCC) documented in this encounter [facility] HealthcareEvaluation note* Diagnosis Primary hypertension (CMS/HCC)- Primary Unspecified essential hypertension Hypothyroidism, unspecified type (CMS/HCC) Type 2 diabetes mellitus with stage 3a chronic kidney disease, without long-term current use of insulin (HCC) (CMS/HCC) Longstanding persistent atrial fibrillation (CMS/HCC) Coronary artery disease involving [place] coronary artery of [place] heart without angina pectoris (CMS/HCC) Essential hypertension (CMS/HCC) Unspecified essential hypertension Stage 3a chronic kidney disease (HCC) (CMS/HCC) Acquired hypothyroidism (CMS/HCC) Unspecified hypothyroidism Chronic lymphocytic leukemia ([facility]HCC) Chronic lymphoid leukemia, without mention of [...] Primary Unspecified essential hypertension Hypothyroidism, unspecified type ([facility]/HCC) Type 2 diabetes mellitus with stage 3a chronic kidney disease, without long-term current use of insulin (HCC) (CMS/HCC) Longstanding persistent atrial fibrillation (CMS/HCC) Coronary artery disease involving [place] coronary artery of [place] heart without angina pectoris (CMS/HCC) Essential hypertension [...] hypertension (CMS/HCC) Unspecified essential hypertension Acquired hypothyroidism ([facility]/HCC) Unspecified hypothyroidism Need for influenza vaccination Need for prophylactic vaccination and inoculation against influenza 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/HCC)- Primary Type 2 diabetes mellitus with diabetic cataract ([facility]) Type II or unspecified type diabetes mellitus with ophthalmic manifestations, not stated as uncontrolled Chronic diastolic (congestive) heart failure ([facility]/HCC) Chronic kidney disease, stage 3b (HCC) ([facility]/HCC) Type 2 diabetes mellitus with diabetic polyneuropathy ([facility]/HCC) 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 elsewhere ([facility]) Chronic lymphocytic leukemia of B-cell type not having achieved remission ([facility]/HCC) Hairy cell leukemia, in remission ([facility]/HCC) Unspecified atrial fibrillation ([facility]/HCC) Morbid (severe) obesity due to excess calories ([facility]) Body mass index (BMI) 40.0-44.9, adult ([facility]/HCC) Cardiomyopathy, ischemic ([facility]/HCC) Other specified forms of chronic ischemic heart disease Coronary artery disease involving [place] coronary artery of [place] heart without angina pectoris (CMS/HCC) Essential hypertension ([facility]/HCC) Unspecified essential hypertension Acquired hypothyroidism ([facility]/HCC) Unspecified hypothyroidism Factor V Leiden mutation ([facility]/HCC) Primary hypercoagulable state Statin intolerance Hyperuricemia without signs of inflammatory arthritis and tophaceous disease documented in this encounter [facility] HealthcareEvaluation note* Diagnosis Primary hypertension (CMS/HCC)- Primary Unspecified essential hypertension Hypothyroidism, unspecified type ([facility]/HCC) Type 2 diabetes mellitus with stage 3a chronic kidney disease, without long-term current use of insulin (HCC) (CMS/HCC) Longstanding persistent atrial fibrillation (CMS/HCC) Coronary artery disease involving [place] coronary artery of [place] heart without angina pectoris (CMS/HCC) Essential hypertension [...] failure Chronic kidney disease, stage 3b (HCC) ([facility]) Type 2 diabetes mellitus with diabetic polyneuropathy ([facility]/HCC) 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 elsewhere ([facility]/HCC) Chronic lymphocytic leukemia of B-cell type not having achieved remission ([facility]/HCC) Hairy cell leukemia, in remission ([facility]/HCC) Unspecified atrial fibrillation ([facility]/HCC) Morbid (severe) obesity due to excess calories ([facility]/HCC) Body mass index (BMI) 40.0-44.9, adult ([facility]/HCC) Cardiomyopathy, ischemic ([facility]/HCC) Other specified forms of chronic ischemic heart disease Coronary artery disease involving [place] coronary artery of [place] heart without angina pectoris (CMS/HCC) Essential hypertension ([facility]/HCC) Unspecified essential hypertension Acquired hypothyroidism (CMS/HCC) Unspecified hypothyroidism Factor V Leiden mutation ([facility]/HCC) Primary hypercoagulable state Statin intolerance Hyperuricemia without signs of inflammatory arthritis and tophaceous disease Unspecified atrial fibrillation ([facility]/HCC) documented in this encounter [facility] HealthcareEvaluation noteNo assessment information availableNorwalk [facility] Work Phone: Evaluation note* Diagnosis Primary hypertension ([facility]/HCC)- Primary Unspecified essential hypertension Hypothyroidism, unspecified type ([facility]/HCC) Type 2 diabetes mellitus with stage 3a chronic kidney disease, without long-term current use of insulin (HCC) ([facility]/HCC) Longstanding persistent atrial fibrillation ([facility]/HCC) Coronary artery disease involving [place] coronary artery of [place] heart without angina pectoris ([facility]/HCC) Essential hypertension ([facility]/HCC) Unspecified essential hypertension Stage 3a chronic kidney disease (HCC) ([facility]/HCC) Acquired hypothyroidism ([facility]/HCC) Unspecified hypothyroidism Chronic lymphocytic leukemia ([facility]/HCC) Chronic lymphoid leukemia, without mention of having achieved remission Medicare annual wellness visit, subsequent Longstanding persistent atrial fibrillation (CMS/HCC)- Primary Type 2 diabetes mellitus with stage 3a chronic kidney disease, without long-term current use of insulin (HCC) ([facility]/HCC)- Primary Essential hypertension ([facility]/HCC) Unspecified essential hypertension Acquired hypothyroidism ([facility]/HCC) Unspecified hypothyroidism Need for influenza vaccination Need for prophylactic vaccination and inoculation against influenza Type 2 diabetes mellitus with diabetic chronic kidney disease ([facility]/HCC)- Primary Type 2 diabetes mellitus with diabetic cataract ([facility]) Type II or unspecified type diabetes mellitus with ophthalmic manifestations, not stated as uncontrolled Chronic diastolic (congestive) heart failure Chronic kidney disease, stage 3b (HCC) ([facility]) Type 2 diabetes mellitus with diabetic polyneuropathy ([facility]) 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 elsewhere ([facility]) Chronic lymphocytic leukemia of B-cell type not having achieved remission ([facility]) Hairy cell leukemia, in remission ([facility]) Unspecified atrial fibrillation ([facility]) Morbid (severe) obesity due to excess calories ([facility]) Body mass index (BMI) 40.0-44.9, adult ([facility]) Cardiomyopathy, ischemic ([facility]) Other specified forms of chronic ischemic heart disease Coronary artery disease involving [place] coronary artery of [place] heart without angina pectoris ([facility]/HCC) Essential hypertension ([facility]/HCC) Unspecified essential hypertension Acquired hypothyroidism ([facility]/HCC) Unspecified hypothyroidism Factor V Leiden mutation ([facility]) Primary hypercoagulable state Statin intolerance Hyperuricemia without signs of inflammatory arthritis and tophaceous disease Medicare annual wellness visit, subsequent- Primary Type 2 diabetes mellitus with stage 3b chronic kidney disease, without long-term current use of insulin (HCC) ([facility]) Morbid (severe) obesity due to excess calories ([facility]) Acquired hypothyroidism ([facility]/HCC) Unspecified hypothyroidism Essential hypertension ([facility]/HCC) Unspecified essential hypertension Chronic diastolic (congestive) heart failure Coronary artery disease involving [place] coronary artery of [place] heart without angina pectoris ([facility]) Type 2 diabetes mellitus with diabetic polyneuropathy, without long-term current use of insulin ([facility]) Hypomagnesemia Disorders of magnesium metabolism documented in this encounter [facility] HealthcareEvaluation note* Diagnosis Primary hypertension- Primary Unspecified essential hypertension Hypothyroidism, unspecified type Type 2 diabetes mellitus with stage 3a chronic kidney disease, without long-term current use of insulin (HCC) Longstanding persistent atrial fibrillation (HCC) Coronary artery disease involving [place] coronary artery of [place] heart without angina pectoris Essential hypertension Unspecified essential hypertension Stage 3a chronic kidney disease ([facility]HCC) Acquired hypothyroidism Unspecified hypothyroidism Chronic lymphocytic [...] Type 2 diabetes mellitus with diabetic cataract ([facility]) Type II or unspecified type diabetes mellitus with ophthalmic manifestations, not stated as uncontrolled Chronic diastolic (congestive) heart failure (HCC) Chronic kidney disease, stage 3b ([facility]) Type 2 diabetes mellitus with diabetic polyneuropathy (HCC) 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 elsewhere ([facility]) Chronic lymphocytic leukemia of B-cell type not having achieved remission (HCC) Hairy cell leukemia, in remission (HCC) Unspecified atrial fibrillation (HCC) Morbid (severe) obesity due to excess calories ([facility]) Body mass index (BMI) 40.0-44.9, adult ([facility]) Cardiomyopathy, ischemic Other specified forms of chronic ischemic heart disease Coronary artery disease involving [place] coronary artery of [place] heart without angina pectoris Essential hypertension Unspecified essential hypertension Acquired hypothyroidism Unspecified hypothyroidism Factor V Leiden mutation (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) Acquired hypothyroidism Unspecified hypothyroidism Essential hypertension Unspecified essential hypertension Chronic diastolic (congestive) heart failure (HCC) Coronary artery disease involving [place] coronary artery of [place] heart without angina pectoris Type 2 diabetes mellitus with diabetic polyneuropathy, without long-term current use of insulin (HCC) Hypomagnesemia Disorders of magnesium metabolism Hypomagnesemia- Primary Disorders of magnesium metabolism documented in this encounter [facility] HealthcareEvaluation note* Diagnosis Primary hypertension- Primary Unspecified essential hypertension Hypothyroidism, unspecified type Type 2 diabetes mellitus with stage 3a chronic kidney disease, without long-term current use of insulin (HCC) Longstanding persistent atrial fibrillation (HCC) Coronary artery disease involving [place] coronary artery of [place] heart without angina pectoris Essential hypertension Unspecified essential hypertension Stage 3a chronic kidney disease ([facility]) Acquired hypothyroidism Unspecified hypothyroidism Chronic lymphocytic [...] Type 2 diabetes mellitus with diabetic cataract ([facility]) Type II or unspecified type diabetes mellitus with ophthalmic manifestations, not stated as uncontrolled Chronic diastolic (congestive) heart failure (HCC) Chronic kidney disease, stage 3b ([facility]) Type 2 diabetes mellitus with diabetic polyneuropathy (HCC) 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 elsewhere ([facility]) Chronic lymphocytic leukemia of B-cell type not having achieved remission (HCC) Hairy cell leukemia, in remission ([facility]) Unspecified atrial fibrillation (HCC) Morbid (severe) obesity due to excess calories ([facility]) Body mass index (BMI) 40.0-44.9, adult ([facility]) Cardiomyopathy, ischemic Other specified forms of chronic ischemic heart disease Coronary artery disease involving [place] coronary artery of [place] heart without angina pectoris Essential hypertension Unspecified essential hypertension Acquired hypothyroidism Unspecified hypothyroidism Factor V Leiden mutation (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) Morbid (severe) obesity due to excess calories ([facility]) Acquired hypothyroidism Unspecified hypothyroidism Essential hypertension Unspecified essential hypertension Chronic diastolic (congestive) heart failure (HCC) Coronary artery disease involving [place] coronary artery of [place] heart without angina pectoris Type 2 diabetes mellitus with diabetic polyneuropathy, without long-term current use of insulin (HCC) Hypomagnesemia Disorders of magnesium metabolism Hypothyroidism, unspecified Type 2 diabetes mellitus with diabetic chronic kidney disease (HCC) Hyperuricemia without signs of inflammatory arthritis and tophaceous disease Type 2 diabetes mellitus without complications (HCC) documented in this encounter [facility] HealthcareEvaluation note* Diagnosis ASHD (arteriosclerotic heart disease) Coronary atherosclerosis of unspecified type of vessel, [place] or graft History of coronary artery bypass [...] heart failure type documented in this encounter [facility] Work Phone: Evaluation note* Diagnosis Primary hypertension- Primary Unspecified essential hypertension Hypothyroidism, unspecified type Type 2 diabetes mellitus with stage 3a chronic kidney disease, without long-term current use of insulin (HCC) Longstanding persistent atrial fibrillation (HCC) Coronary artery disease involving [place] coronary artery of [place] heart without angina pectoris Essential hypertension Unspecified [...] remission (HCC) Hairy cell leukemia, in remission ([facility]) Unspecified atrial fibrillation (HCC) Morbid (severe) obesity due to excess calories ([facility]) Body mass index (BMI) 40.0-44.9, adult ([facility]) Cardiomyopathy, ischemic Other specified forms of chronic ischemic heart disease Coronary artery disease involving [place] coronary artery of [place] heart without angina pectoris Essential hypertension Unspecified essential hypertension Acquired hypothyroidism Unspecified hypothyroidism Factor V Leiden mutation (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) Morbid (severe) obesity due to excess calories ([facility]) Acquired hypothyroidism Unspecified hypothyroidism Essential hypertension Unspecified essential hypertension Chronic diastolic (congestive) heart failure (HCC) Coronary artery disease involving [place] coronary artery of [place] heart without angina pectoris Type 2 diabetes mellitus with diabetic polyneuropathy, without long-term current use of insulin ([facility]) Hypomagnesemia Disorders of magnesium metabolism Essential hypertension- Primary Unspecified essential hypertension Type 2 diabetes mellitus with diabetic polyneuropathy, without long-term current use of insulin (HCC) Longstanding persistent atrial fibrillation (HCC) Pulmonary embolism, unspecified chronicity, unspecified pulmonary embolism type, unspecified whether acute cor pulmonale present ([facility]) Chronic diastolic (congestive) heart failure (HCC) Chronic kidney disease, stage 3b ([facility]) Type 2 diabetes mellitus with stage 3b chronic kidney disease, without long-term current use of insulin ([facility]) Morbid (severe) obesity due to excess calories ([facility]) Acquired hypothyroidism Unspecified hypothyroidism Diarrhea, unspecified type documented in this encounter [facility] HealthcareEvaluation note* Diagnosis Primary hypertension- Primary Unspecified essential hypertension Hypothyroidism, unspecified type Type 2 diabetes mellitus with stage 3a chronic kidney disease, without long-term current use of insulin (HCC) Longstanding persistent atrial fibrillation (HCC) Coronary artery disease involving [place] coronary artery of [place] heart without angina pectoris Essential hypertension Unspecified essential hypertension Stage 3a chronic kidney disease ([facility]) Acquired hypothyroidism Unspecified hypothyroidism Chronic lymphocytic [...] failure (HCC) Chronic kidney disease, stage 3b ([facility]) 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) Hairy cell leukemia, in remission ([facility]) Unspecified atrial fibrillation (HCC) Morbid (severe) obesity due to excess calories ([facility]) Body mass index (BMI) 40.0-44.9, adult ([facility]) Cardiomyopathy, ischemic Other specified forms of chronic ischemic heart disease Coronary artery disease involving [place] coronary artery of [place] heart without angina pectoris Essential hypertension Unspecified essential hypertension Acquired hypothyroidism Unspecified hypothyroidism Factor V Leiden mutation (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) Acquired hypothyroidism Unspecified hypothyroidism Essential hypertension Unspecified essential hypertension Chronic diastolic (congestive) heart failure (HCC) Coronary artery disease involving [place] coronary artery of [place] heart without angina pectoris Type 2 diabetes [...] failure (HCC) Chronic kidney disease, stage 3b (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) Acquired hypothyroidism Unspecified hypothyroidism Diarrhea, unspecified type Hypomagnesemia Disorders of magnesium metabolism Type 2 diabetes mellitus without complications ([facility]) documented in this encounter [facility] HealthcareEvaluation note* Diagnosis Onset Date Resolution Status Admit Date Acquired hypothyroidism acuteOctober 2024 8:55amAtrial fibrillation, [facility]acuteOct[facility] 8:55amChronic diastolic (congestive) heart failureacuteOctb[facility] 2024 8:55amHyperlipidemiaacuteOctb[facility] 2024 8:55amHypertensionacuteOctb[facility] 2024 8:55amMorbid (severe) obesity due to excess caloriesacuteOctb[facility] health [facility] 2024 8:55amStatin intoleranceacuteOctb[facility] 2024 8:55amType 2 diabetes mellitus with diabetic chronic kidney diseaseacuteOctbaptist health [facility] 2024 8:55am [facility] Work Phone: Reason for referral (narrative)No reason for referral information availableDoctors Hospital Work Phone: Summary Purpose Family History [...] 2019 7:25pm Hospital Course Note MR#: [id number] [facility] Pt. Name: Mohan Espinoza Admitted: 04/06/2018 [...] as above, the patient was seen in [facility] after she was feeling weak for 1 day. In [facility], she was found to have [...] (non-ST eleva ruma myocardial infarction) Type 2 NM (myocardial infarction) Chief Complaint Admit Date Unknown [...] January 01, 2025 8:55am Chief Complaint * [facility] [place] [facility] 06/23/22. * 86-year-old female [...] section and content) DATE CREATED AUTHOR 11/06/2017 [facility] DATE CREATED AUTHOR AUTHOR'S ORGANIZ ATION 04/04/[address] [facility] DATE CREATED AUTHOR AUTHOR'S ORGANIZ ATION 04/18/2020 [facility] DATE CREATED AUTHOR AUTHOR'S ORGANIZ ATION 06/24/2022 [facility] DATE CREATED AUTHOR AUTHOR'S ORGANIZ ATION 09/26/2022 [facility] DATE CREATED AUTHOR AUTHOR'S ORGANIZ ATION 10/01/2022 [facility] DATE CREATED AUTHOR AUTHOR'S ORGANIZ ATION 10/01/2022 [employer] DATE CREATED AUTHOR AUTHOR'S ORGANIZ ATION 10/20/2024 [facility] DATE CREATED AUTHOR AUTHOR'S ORGANIZ ATION 11/01/2024 [facility] EPIC DATE CREATED AUTHOR AUTHOR'S ORGANIZ ATION 12/27/2024 [facility] Care Teams (unrecognized sec tion [...] Date Fabricio Edouard MD [address] [place] [phone] PCP - GeneralFamily Medicine10/20/23 Emilie Meza NP [address] [place] [address] Nurse PractitionerFamily Medicine10/20/23Team MemberRelationshipSpecialtyStart DateEnd Date Fabricio Edouard MD [address] [place] [phone] PCP - [facility]10/20/23 Emilie Meza NP [address] [place] [address] [facility]/23Team MemberRelationshipSpecialtyStart DateEnd Date Fabricio Edouard MD [address] [place] [phone] PCP - [facility]10/20/23 Emilie Meza NP [address] [place] [address] [facility]10/20/23Team MemberRelationshipSpecialtyStart DateEnd Date Fabricio Edouard MD [address] [place] [phone] PCP - [facility]10/20/23 Emilie Meza NP [address] [place] [address] [facility]10/20/23Team MemberRelationshipSpecialtyStart DateEnd Date Fabricio Edouard MD [address] [place] [phone] PCP - [facility]10/20/23 Emilie Meza NP [address] [place] [address] [facility]10/20/23Team MemberRelationshipSpecialtyStart DateEnd Date Fabricio Edouard MD [address] [place] [address] PCP - [facility]10/20/23 Emilie Meza, YOAN [address] [place] [address] [facility]10/20/23Team MemberRelationshipSpecialtyStart DateEnd Date Fabricio Edouard MD [address] [place] [address] PCP - [facility]10/20/23 Emilie Meza, YOAN [address] [place] [address] [facility]10/20/23Team MemberRelationshipSpecialtyStart DateEnd Date Fabricio Edouard MD [address] [place] [address] PCP - [facility]10/20/23 Emilie Meza NP [address] [place] [address] [facility]10/20/23Team MemberRelationshipSpecialtyStart DateEnd Date Fabricio Edouard MD [address] [place] [address] PCP - GeneralFamily Medicine10/20/23 Emilie Meza NP [address] [place] [address] [facility]10/20/23Team MemberRelationshipSpecialtyStart DateEnd Date Fabricio Edouard MD [address] [place] [address] [facility]CP - [facility]10/20/23 Emilie Meza NP [address] [place] [address] [facility]10/20/23Team MemberRelationshipSpecialtyStart DateEnd Date Fabricio Edouard MD [address] [place] [address] PCP - [facility]10/20/23 Ирина Brown NP [address] [place] [address] [facility]05/25/24Team MemberRelationshipSpecialtyStart DateEnd Date Fabricio Edouard MD [address] [place] [address] [facility] - [facility]10/20/23 Ирина Brown NP [address] [place] [address] [facility]05/25/24 Team Status: Inactive Member Role Status Dates Emilie Meza NP-C Primary Care Provider Ac tive Start: July 06, 2024 End: July 06, 2024Karyna London ProviderActiveStart: July 06, 2024 End: July 06, 2024Team MemberRelationshipSpecialtyStart DateEnd Date Fabricio Edouard MD [address] [place] [address] PCP - GeneralFamily Medicine10/20/23 Ирина Brown NP [address] [place] [address] [facility]05/25/24Team MemberRelationshipSpecialtyStart DateEnd Date Fabricio Edouard MD [address] [place] [address] PCP - GeneralFamily Medicine10/20/23 Ирина Brown NP [address] [place] [address] [facility]05/25/24Team MemberRelationshipSpecialtyStart DateEnd Date Fabricio Edouard MD [address] [place] [address] PCP - GeneralFamily Medicine10/20/23 Ирина Brown NP [address] [place] [address] [facility]05/25/24Team MemberRelationshipSpecialtyStart DateEnd Date Fabricio Edouard MD [address] [place] [address] [facility] - [facility]10/20/23 Ирина Brown NP [address] [place] [address] [facility]05/25/24Team MemberRelationshipSpecialtyStart DateEnd Date Fabricio Edouard MD [address] [place] [address] PCP - [facility]10/20/23 Ирина Brown NP [address] [place] [address] Nurse Pract[facility]05/25/24Team MemberRelationshipSpecialtyStart DateEnd Date Shaikh Schultz MD [address] [place] [address] [facility] - [facility]10/04/24Team MemberRelationshipSpecialtyStart Date End Date Fabricio Edouard MD [address] [place] [address] PCP - [facility]10/20/23 Ирина Brown NP [address] [place] [address] [facility] Medicine05/25/24Team MemberRelationshipSpecialtyStart DateEnd Date Fabricio Edouard MD [address] [place] [address] PCP - [facility]10/20/23 Ирина Brown NP [address] [place] [address] Nurse [facility]05/25/24Team MemberRelationshipSpecialtyStart DateEnd Date Fabricio Edouard MD [address] [place] [address] PCP - [facility]10/20/23 Ирина Brown NP [address] [place] [address] [facility]05/25/24Team MemberRelationshipSpecialtyStart DateEnd Date Fabricio Edouard MD [address] [place] [address] PCP - [facility]10/20/23 Ирина Brown NP [address] [place] [address] [facility]05/25/24 Team Status: Active Member Role Status Dates Ирина Brown NP-C Primary Care Provider Active Team Status: Inactive Member Role Status Dates CHRISTY Hammer Primary Care Provider Active Start: January 01, 2025 End: January 01, 2025Ирина Borwn NP-CAttending ProviderActiveStart: January 01, 2025 End: January 01, 2025 Reason for Visit (unrecogniz ed section and content) ReasonOnset DateCommentsMed [id number] Follow-up ReasonCommentsHypertensionReasonOnset DateCommentsMed [id number] Onset DateCommentsMed Mjgiwd8204/05/2024ReasonCommentsDiabetesReasonOnset Date CommentsMed Viuujf3307/10/2024ReasonCommentsMedicare Annual Wellness Visit Initial ReasonOnset DateCommentsMed Dchzkt7210/11/2024ReasonCommentsAnnual Exam1 year follow up for ASHD (arteriosclerotic heart disease)SpecialtyDiagnoses / ProceduresReferred By ContactReferred To ContactCardiology Diagnoses ASHD (arteriosclerotic heart disease) Procedures Follow Up In Cardiology Joseluis Casey, [address], [place] [address] Phone: tel: fax: Joseluis Casey, [address] [place] [address] [address], [place] [id number] Phone: tel: fax: Referral IDStatusReasonStart DateExpiration DateVisits RequestedVisits [id number] Refill Goals (unrecognized section and content) Goals [...] BE BASED ON THE PRIMARY CLINICAL RECORDS. [facility]. provides no warranty or guarantee of the accuracy or completeness of information in this document.
[2025-02-10] VITALS (26 sets, daily range): BP systolic 112–186; BP diastolic 60–91; PULSE 69–93; TEMP 36.3–37; O2SAT 92–97; BMI 39.6
[2025-02-10] MEDS: FUROSEMIDE 20 MG/2 ML VIAL IVP ×4 (01:37→22:45)
[2025-02-10] MEDS: HYDRALAZINE HCL 20 MG/ML VIAL 10 MG IVP (01:37)
[2025-02-10] MEDS: LEVOTHYROXINE SODIUM 100 MCG TABLET 200 MCG PO (06:32)
[2025-02-10 06:35] LABS: Hematocrit 45.2 % (36.0-48.0); Hemoglobin 14.4 g/dL (12.0-16.0); Immature Granulocytes Abs Auto 0.02 10^3/uL (0.00-0.03); Immature Granulocytes Pct Auto 0.3 % (0.0-0.5); Lymphocytes Absolute Auto 1.5 10^3/uL (1.2-3.8); Mean Corpuscular HGB Conc 31.9 g/dL (29.9-35.2); Mean Corpuscular Hemoglobin 28.2 pg (26.7-34.0); Mean Corpuscular Volume 88.6 fL (81.0-99.0); Platelet Count 200 10^3/uL (150-450); Red Blood Count 5.10 10^6/uL (4.20-5.40); White Blood Count 7.5 10^3/uL (4.0-11.0)
[2025-02-10 07:01] LABS: Alanine Aminotransferase 21 U/L (14-59); Albumin Globulin Ratio 0.7; Albumin Level 3.0 g/dL (3.4-5.0); Alkaline Phosphatase 123 U/L (46-116); Anion Gap 10.4; Aspartate Amino Transferase 23 U/L (15-37); Blood Urea Nitrogen 25.0 mg/dL (7.0-18.0); Calcium 9.5 mg/dL (8.5-10.1); Carbon Dioxide 31.1 mmol/L (21.0-32.0); Chloride 102 mmol/L (98-107); Cholesterol 149 mg/dL (<=200); Estimated GFR (African America 42 (>=60 mL/min/1.73m^2); Estimated GFR (Non-African Ame 34 (>=60 mL/min/1.73m^2); Globulin 4.1 g/dL; Glucose 128 mg/dL (74-106); HDL Cholesterol 32 mg/dL (40-60); Magnesium 1.3 mg/dL (1.8-2.4); Potassium 3.5 mmol/L (3.5-5.1); Sodium 140 mmol/L (136-145); Thyroid Stimulating Hormone 1.585 uIU/mL (0.358-3.740); Total Protein 7.1 g/dL (6.4-8.2); Triglycerides 117 mg/dL (<=150); VLDL CHOLESTEROL 23.4 mg/dL
--- NOTE | 2025-02-10 08:00 | ECG_ITS ---
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 Measurements Intervals [place] Rate: 72 P: SD: QRS: -9 QRSD: 100 T: 91 QT: 355 QTc: 390 Interpretive Statements ATRIAL FIBRILLATION NONSPECIFIC ST & T-WAVE ABNORMALITY Abnormal ECG Compared to ECG 02/09/2025 17:36:07 T-wave abnormality now present Electronically Signed On 02-11-2025 20:19:40 EST by JANE WESLEY M.D.
[2025-02-10] MEDS: MAGNESIUM SULFATE IN WATER 2 GM/50 ML PREMIX IV (08:50)
[2025-02-10] MEDS: METFORMIN HCL 500 MG TABLET PO ×2 (08:52→17:03)
[2025-02-10] MEDS: METOPROLOL SUCCINATE 50 MG TAB.ER.24H 150 MG PO (08:52)
[2025-02-10] MEDS: ALLOPURINOL 300 MG TABLET PO (08:52)
[2025-02-10] MEDS: RIVAROXABAN 10 MG TABLET 15 MG PO (08:52)
[2025-02-10] MEDS: GLIPIZIDE 10 MG TABLET 5 MG PO ×2 (08:54→22:46)
[2025-02-10] MEDS: POTASSIUM CHLORIDE 10 MEQ ER TABLET 40 MEQ PO (08:54)
--- NOTE | 2025-02-10 09:13 | PM.HP ---
HPI H&P: HPI History of Present Illness Chief complaint: SOB, CHF Narrative: Mrs. Navarro is an 89-year-old female who came to the emergency room with progressive shortness of breath and dyspnea on exertion and at rest over the last 24 to 48 hours. She was found to have a blood pressure of 213/110. Patient does not know if she was taking her medication. Patient denies any chest pain. No fever or chills. Minimal cough. No abdominal pain, nausea or vomiting. Opioid HPI Opioid Management Most Recent Pain and Opioid Data: Last Pain Scale 0 Today, 08:55 Last Pain Intensity 8 07/08/24, 09:56 Last Pain Assessment Today, 08:55 Last ORT Total Score 0 Today, 02:07 Last ORT Risk Category Low Risk Today, 02:07 Review of Systems ROS Status of ROS 10 or more systems reviewed and unremarkable except as noted in history and below [facility] Medical History Fall ?W19.XXXA - Unspecified fall, initial encounter (ICD-10) D-dimer, elevated ?R79.89 - Other specified abnormal findings of blood chemistry (ICD-10) Hypothyroid ?E03.9 - Hypothyroidism, unspecified (ICD-10) HTN (hypertension) ?I10 - Essential (primary) hypertension (ICD-10) CKD stage 3a, GFR 45-59 ml/min ?N18.31 - Chronic kidney disease, stage 3a (ICD-10) (HFpEF) heart failure with preserved ejection fraction ?I50.30 - Unspecified diastolic (congestive) heart failure (ICD-10) History of pulmonary embolism ?Z86.711 - Personal history of pulmonary embolism (ICD-10) Factor V Leiden mutation ?D68.51 - Activated protein C resistance (ICD-10) Hx of blood clots ?Z86.718 - Personal history of other venous thrombosis and embolism (ICD-10) [place] filter in place ?Z95.828 - Presence of other vascular implants and grafts (ICD-10) History of IBS ?Z87.19 - Personal history of other diseases of the digestive system (ICD-10) Non Hodgkin's lymphoma ?C85.90 - Non-Hodgkin lymphoma, unspecified, unspecified site (ICD-10) Diabetes ?E11.9 - Type 2 diabetes mellitus without complications (ICD-10) Atrial fibrillation ?I48.91 - Unspecified atrial fibrillation (ICD-10) Surgical History Hx of appendectomy ?Z90.49 - Acquired absence of other specified parts of digestive tract (ICD-10) Hx of CABG ?Z95.1 - Presence of aortocoronary bypass graft (ICD-10) Hx of heart artery stent ?Z95.5 - Presence of coronary angioplasty implant and graft (ICD-10) Family History (Updated 02/10/25 @ 02:51 by Cesar Hou, CHIRAG) Mother Stroke Social History (Updated 02/10/25 @ 02:51 by Cesar Hou RN) Within the past year, how often did you have a drink containing alcohol: never Within the past year, how often did you have six or more drinks on one occasion: never Score interpretation: A score less than 3 is consistent with normal alcohol consumption. Smoking status: Never smoker Known occupational exposures/hazards: No Highest level of school completed/degree received: Associate degree: occupational, technical, vocational program Little interest or pleasure in doing things: not at all Feeling down, depressed, or hopeless: not at all Meds Home Medications and Allergies Home Medications ?Medication ?Instructions ?Recorded ?Confirmed ?Type allopurinol 300 mg tablet 300 mg PO DAILY 12/25/23 02/09/25 History furosemide 40 mg tablet 40 mg PO .EVERY OTHER DAY 12/25/23 02/09/25 History glipizide 10 mg tablet 10 mg PO BID 12/25/23 02/09/25 History levothyroxine 200 mcg tablet 200 mcg PO DAILY 12/25/23 02/09/25 History metformin 500 mg tablet 500 mg PO BIDWM 12/25/23 02/09/25 History metoprolol succinate 50 mg 150 mg PO DAILY 12/25/23 02/09/25 History tablet,extended release 24 hr rivaroxaban 15 mg tablet (Xarelto) 15 mg PO Q24H 12/25/23 02/09/25 History magnesium oxide 400 mg (241.3 mg 400 mg PO DAILY 02/09/25 02/10/25 History magnesium) tablet Allergies Allergy/AdvReac Type Severity Reaction Status Date / Time Iodinated Contrast Media Allergy Unknown Unknown Verified 02/09/25 17:32 Exam Narrative Exam Narrative: [pt is awake and alert. oriented to place, time and person. In the emergency room department, the patient had respiratory distress, tachypnea, using accessory muscle with respiratory rate at 35. HEENT: [place] conjunctiva and NL buccal mucosa Neck: Supple, no tenderness Endocrine: No Thyromegaly. Vascular: No JVD or carotid bruit. Lymphatic: No cervical lymphadenopathy. Chest: Crackles Heart RRR, no extra sound or murmur. Abd: Soft, no tenderness, no rebound and no rigidity. Increase abd girth therefore clinically I could not exclude the possibility of intra abd mass or organomegaly. LE: No cyanosis or clubbing, no varices. +1 pitting edema Neuro: A A O. Nl speech, comprehension and attention. Nl and symetrical motor and tone examination through out. []] Constitutional Vital Signs, click to edit/add: Last Vital Signs Temp 97.8 F 02/10/25 07:55 Pulse 77 02/10/25 07:56 Resp 18 02/10/25 07:55 BP 139/78 02/10/25 07:55 Pulse Ox 94 L 02/10/25 07:55 O2 Del Method Nasal Cannula 02/10/25 07:55 O2 Flow Rate 2 02/10/25 07:55 Results Labs Labs: Short CBC 02/09/25 02/10/25 Range/Units 18:50 06:15 WBC 7.1 7.5 (4.0-11.0) 10^3/uL Hgb 14.8 14.4 (12.0-16.0) g/dL Hct 45.8 45.2 (36.0-48.0) % Plt Count 195 200 (150-450) 10^3/uL BMP 02/09/25 02/10/25 18:50 06:15 Sodium 140 140 Potassium 4.3 3.5 Chloride 104 102 Carbon Dioxide 31.3 31.1 BUN 27.0 H 25.0 H Creatinine 1.33 H 1.44 H Glucose 116 H 128 H Calcium 9.2 9.5 Liver Function 02/10/25 Range/Units 06:15 Total Bilirubin 0.9 (0.2-1.0) mg/dL AST 23 (15-37) U/L ALT 21 (14-59) U/L Alkaline Phosphatase 123 H (46-116) U/L Albumin 3.0 L (3.4-5.0) g/dL Assessment and Plan Assessment and Plan (1) Congestive heart failure: Plan Acute diastolic heart failure, likely caused by hypertensive urgency. Hypertensive urgency with a blood pressure of 213/110 Acute hypoxic respiratory failure and distress requiring oxygen supplementation. Patient had tachypnea with respiratory rate at 35 in the emergency room department, using accessory muscles Patient had an echo 6 months ago which showed a preserved ejection fraction. I instructed the ER to give her hydralazine intravenously to control her blood pressure. Patient had received a total of 80 mg of Lasix. Continue Lasix 20 mg every 6 hours intravenously. Blood pressure is under much better control. Recent TSH is normal. Troponin is negative. CAD, previous bypass No active chest pain, troponin is negative. Atrial fibrillation Rate is controlled. Continue Toprol XL 150 mg daily which is her home dose. Continue Xarelto for embolic stroke prevention. Hypomagnesemia Magnesium supplementation. Check phosphorus level which is normal. Hypothyroidism Continue Synthroid. Recent TSH is normal. Morbid obesity Diet, exercise and lifestyle modification however the benefit of that at the age of 89 is of questionable value. CKD stage III Near baseline. Avoid nephrotoxic drugs. Monitor electrolytes. Keep patient in a euvolemic state. Chronic, subacute medical conditions not listed above, abnormal labs and imaging, incidental findings seen on labs and or imaging. These would need to be addressed. Could be addressed later on or in the outpatient setting by PCP collaboration with other needed outpatient providers when time and condition are appropriate.
[2025-02-10] MEDS: INSULIN ASPART 300 UNIT/3 ML PEN SUBQ (12:25)
[2025-02-10 20:30] LABS: Glucose Urine UA NEGATIVE (NEGATIVE)
[2025-02-10 20:39] LABS: Cast Seen? SEEN #/LPF (NONE SEEN); Crystals Seen? None Seen #/HPF (None Seen)
[2025-02-10 20:40] LABS: Urine Culture Indicated YES-FRMC
[2025-02-11] VITALS (9 sets, daily range): BP systolic 111–150; BP diastolic 63–76; PULSE 68–91; TEMP 36.5–36.6; O2SAT 94–96
[2025-02-11] MEDS: LEVOTHYROXINE SODIUM 100 MCG TABLET 200 MCG PO (06:43)
[2025-02-11 07:11] LABS: Anion Gap 14.8; Blood Urea Nitrogen 35.0 mg/dL (7.0-18.0); Calcium 9.2 mg/dL (8.5-10.1); Carbon Dioxide 28.4 mmol/L (21.0-32.0); Chloride 102 mmol/L (98-107); Estimated GFR (African America 39 (>=60 mL/min/1.73m^2); Estimated GFR (Non-African Ame 33 (>=60 mL/min/1.73m^2); Glucose 81 mg/dL (74-106); Magnesium 1.6 mg/dL (1.8-2.4); Potassium 4.2 mmol/L (3.5-5.1); Sodium 141 mmol/L (136-145)
[2025-02-11 07:14] LABS: NT Pro B Type Natriuretic Pept 2635.0 pg/mL (<=1800.0)
--- NOTE | 2025-02-11 08:00 | XR_ITS ---
The [address] [address] Patient Name: MOHAN INTERIANO MRN: [id number] date: 1935 Sex: F Assigned Patient Location: [place] Current Patient Location: [place] Accession/Order Number: [id number] Exam Date: 02/11/2025 08:45 Report Date: 02/11/2025 10:24 At the request of: SCARLET HARP MD Procedure: XR chest 1V Single view chest: CLINICAL HISTORY: CHF. Comparison to last COMPARISON: Chest 02/09/2025 FINDINGS: Sternotomy wires are noted. Cardiomegaly with vascular congestion and trace pleural effusions are unchanged. No new consolidation pneumothorax or free air. XR/XR chest 1V IMPRESSION: NO SIGNIFICANT CHANGE IN CHEST FINDINGS. Impression dictated by: Ck Dove Jr., D.OAshish 02/11/2025 10:24 AM Dictation Location: [facility] SystemsMULTICARE GOOD SAMARIT[facility] HOSPITALAlc Holdings Electronically authenticated by: [id number] Y Date: 02/11/2025 10:24
[2025-02-11] MEDS: GLIPIZIDE 10 MG TABLET 5 MG PO (08:32)
[2025-02-11] MEDS: METOPROLOL SUCCINATE 50 MG TAB.ER.24H 150 MG PO (08:32)
[2025-02-11] MEDS: RIVAROXABAN 10 MG TABLET 15 MG PO (08:32)
[2025-02-11] MEDS: ALLOPURINOL 300 MG TABLET PO (08:32)
[2025-02-11] MEDS: METFORMIN HCL 500 MG TABLET PO (08:32)
--- NOTE | 2025-02-11 09:57 | PM.DS1 ---
DS: Providers Provider Date of admission: 02/09/25 20:45 Primary care physician: Ирина Brown NP DS: Diagnosis Discharge Diagnosis (1) Congestive heart failure: Plan As listed above, below and others that are not listed DS: Summary Hospital Course Hospital Course: Mrs. Espinoza is an 89-year-old female who came in with shortness of breath. She was found to have the following: Acute diastolic heart failure, likely caused by hypertensive urgency. Hypertensive urgency with a blood pressure of 213/110 Acute hypoxic respiratory failure and distress requiring oxygen supplementation. Patient had tachypnea with respiratory rate at 35 in the emergency room department, using accessory muscles Patient had an echo 6 months ago which showed a preserved ejection fraction. Patient is feeling much better. Resolution of hypoxemic respiratory failure. Currently on room air 96%. Patient is 4 L negative fluid balance. Patient is ready physically and psychologically to go home. She is back to baseline state. Patient was taking Lasix 40 mg every other day. I instructed her to take it 40 mg daily. Patient is on Toprol-XL 150 mg daily for hypertension and A-fib. I added losartan 25 mg daily. Additional titration of BP meds will need to take place to keep her blood pressure under control and to keep patient in euvolemic state. Diabetes Patient is on metformin 500 twice a day and glyburide 10 mg twice a day. Given her CKD I would recommend to reduce the glyburide down to 5 mg twice a day. Her metformin is at the borderline where needs to be discontinued GFR thus far is above 30 but I would recommend discontinuation of metformin if GFR drops below 30 or creatinine above 1.7 I started patient on SGLT given her diabetes and CKD. Hopefully this will halted the progression of kidney failure and reduce her risk having cardiovascular event. Close monitoring of electrolytes will need to take place over the next several weeks in the outpatient setting. UTI Patient will be getting ceftriaxone 1 g 1 dose and then will be discharged on cefuroxime 250 twice daily for 5 days CAD, previous bypass No active chest pain, troponin is negative. Atrial fibrillation Rate is controlled. Continue Toprol XL 150 mg daily which is her home dose. Continue Xarelto for embolic stroke prevention. Hypomagnesemia Additional magnesium supplementation. Checked phosphorus level which is normal. Hypothyroidism Continue Synthroid. Recent TSH is normal. Morbid obesity Diet, exercise and lifestyle modification however the benefit of that at the age of 89 is of questionable value. CKD stage III Near baseline. Avoid nephrotoxic drugs. Monitor electrolytes. Keep patient in a euvolemic state. Patient will be taking Lasix 40 mg daily instead of every other day. I added SGLT 2 hold progression of kidney failure Small dose of ARB losartan 25 mg daily for blood pressure control and also for additional renal function preservation. Chronic, subacute medical conditions not listed above, abnormal labs and imaging, incidental findings seen on labs and or imaging. These would need to be addressed. Could be addressed later on or in the outpatient setting by PCP collaboration with other needed outpatient providers when time and condition are appropriate. Patient has multiple complex medical issues as listed above and others that are not listed. All appear to be stable. I do not have any clear or strong clinical justification to extend inpatient hospitalization. Patient however will require close and frequent monitoring as well as additional work-up, investigation and therapeutic intervention that could take place from this point on post discharge. That is to prevent relapse, decompensation, rehospitalization and other medical implications. Discharge medications as listed are not final or set in stone. Primary care doctor and other out patient providers will need to titrate and adjust medications as soon as the first post discharge visit based on clinical progression, vitals signs, volume status and other related organs function. I instructed patient to ask her primary care doctor to obtain [facility] record entirely to address abnormalities seen on labs and imaging that I have and have not addressed during this hospitalization, follow-up on pending blood work, imaging and pathology is if available and to follow-up on needed medical care in the outpatient setting. Time Spent with Patient Time attestation: Total time spent providing and/or coordinating discharge services: Time spent: greater than 30 minutes Exam Constitutional Vital Signs, click to edit/add: Last Vital Signs Temp 97.9 F 02/11/25 07:41 Pulse 77 02/11/25 09:34 Resp 18 02/11/25 09:34 BP 140/68 02/11/25 07:41 Pulse Ox 96 02/11/25 09:34 O2 Del Method Room Air 02/11/25 09:34 O2 Flow Rate 2 02/11/25 07:41 DS: Data Data Completed and Pending Labs on day of discharge: Labs from last 24 hours 02/11/25 02/11/25 02/10/25 07:43 05:51 20:14 Sodium 141 Potassium 4.2 Chloride 102 Carbon Dioxide 28.4 Anion Gap 14.8 BUN 35.0 H Creatinine 1.51 H Est GFR ( Amer) 39 L Est GFR (Non-Af Amer) 33 L BUN/Creatinine Ratio 23.2 Glucose 81 Calcium 9.2 Magnesium 1.6 L NT-Pro-B Natriuret Pep 2635.0 H* Urine Color Lt. yellow Urine Clarity Slightly cloudy A Urine pH 5.5 Ur Specific [place] 1.025 Urine Protein 100 A Urine Glucose (UA) Negative Urine Ketones Negative Urine Occult Blood Moderate A Urine Nitrite Negative Urine Bilirubin Negative Urine Urobilinogen 0.2 Ur Leukocyte Esterase Small A Urine RBC 2-5 A Urine WBC 5-10 A Ur Squamous Epith Cells Moderate A Urine Crystals None seen Urine Bacteria Small A Urine Casts Seen A Hyaline Casts Moderate Urine Mucus Small A Ur Culture Indicated? Yes-[facility] POC Glucose 79 02/10/25 02/10/25 02/10/25 19:52 16:37 11:25 Sodium Potassium Chloride Carbon Dioxide Anion Gap BUN Creatinine Est GFR ( Amer) Est GFR (Non-Af Amer) BUN/Creatinine Ratio Glucose Calcium Magnesium NT-Pro-B Natriuret Pep Urine Color Urine Clarity Urine pH Ur Specific [place] Urine Protein Urine Glucose (UA) Urine Ketones Urine Occult Blood Urine Nitrite Urine Bilirubin Urine Urobilinogen Ur Leukocyte Esterase Urine RBC Urine WBC Ur Squamous Epith Cells Urine Crystals Urine Bacteria Urine Casts Hyaline Casts Urine Mucus Ur Culture Indicated? POC Glucose 96 98 141 H Discharge Plan Discharge Disposition: Home, Self-Care Discharge Medications: New cefuroxime axetil 250 mg tablet 250 mg PO BID Qty: 10 0RF dapagliflozin propanediol [Farxiga] 10 mg tablet 10 mg PO DAILY Qty: 30 1RF losartan 25 mg tablet 25 mg PO DAILY Qty: 30 1RF Continued Xarelto 15 mg tablet 15 mg PO Q24H allopurinol 300 mg tablet 300 mg PO DAILY levothyroxine 200 mcg tablet 200 mcg PO DAILY metformin 500 mg tablet 500 mg PO BIDWM metoprolol succinate 50 mg tablet extended release 24 hr 150 mg PO DAILY magnesium oxide 400 mg (241.3 mg magnesium) tablet 400 mg PO DAILY Changed furosemide 40 mg tablet 40 mg PO DAILY Qty: 30 2RF glipizide 10 mg tablet 5 mg PO BID Qty: 0 0RF Print Language: [place] Activity Restrictions/Additional Instructions: I may not have addressed or treated all of your medical illnesses or the abnormal blood work or imaging studies during this hospitalization. Please ask your primary care provider to obtain [facility] records entirely to follow up on all of the abnormal physical, laboratory, and imaging findings that I have not addressed. Please return back to the emergency room or seek medical attention if your symptoms worsen or return. Discharging you from [facility] does not mean that your medical care ends here and now. You may still need additional monitoring, work up, investigation, and treatment plan to be handled from this point on by out patient providers including your primary care provider and specialists. Discharge medications as listed are not final or set in stone. Primary care doctor and other out patient providers will need to titrate and adjust medications as soon as the first post discharge visit based on clinical progression, vitals signs, volume status and other related organs function. Check your blood sugar 3 times a day before meals. Document these numbers on a blood glucose log and bring them with you to your follow-up appointment with your primary care doctor. Communicate with your primary care doctor or asset specialist if your blood sugar is under 100 or above 300 on 2 consecutive checks. Communicate with your primary care doctor or asset specialist if you have any questions about your diabetes medications. Signs of a low blood sugar include sweating, racing heart, dizziness and/or weakness. Check your blood sugar if you have any of the symptoms. For any medication question, please contact your retail pharmacist or your primary care provider. Thank you. Forms: Portal Instructions
[2025-02-11] MEDS: FUROSEMIDE 40 MG/4 ML VIAL 30 MG IVP (10:25)
[2025-02-11] MEDS: MAGNESIUM SULFATE IN WATER 2 GM/50 ML PREMIX IV (11:12)
[2025-02-11] MEDS: FLU VACC TS2025-26(65YR UP)/PF 180 MCG/0.5 ML SYRINGE IM (12:45)
--- NOTE | 2025-02-12 09:32 | PC.NURSE ---
follow up Ирина Boyd Feb @11:30
--- NOTE | 2025-02-12 13:59 | CM.DCFOLLOWU ---
Person spoke with:Noy How are you feeling? Ok, just a little tired How is your pain? Better Did you understand your discharge instructions? Yes Do you have any questions about your discharge instructions? No Were you given any prescriptions at discharge? Yes Were you able to get your prescriptions filled? Yes Do you understand how to take your medications as ordered? Yes Do you have any questions about your follow up appointment and do you plan to keep your follow up appointment? No questions. Patient was notified of her appt with Dr Brown on 02/21 at 11:30. Is there anything else that you would like to discuss? No Questions/Comments/Concerns/Other:
== END 2025-02-11 13:15 | disposition home or self-care (01) | DRG 291 ==
LOC: ER 19:47 → MS 21:00
PROVIDERS: Emergency Medicine; Admitting Provider Internal Medicine; Emergency Provider Internal Medicine; PCP Nurse Practitioner; Visit Provider Internal Medicine
DX: I13.0 Hypertensive heart and chronic kidney disease with heart failure and stage 1 through stage 4 chronic kidney disease, or unspecified chronic kidney disease (principal); I50.31 Acute diastolic (congestive) heart failure; J96.01 Acute respiratory failure with hypoxia; N39.0 Urinary tract infection, site not specified; N18.30 Chronic kidney disease, stage 3 unspecified; Z95.1 Presence of aortocoronary bypass graft; E11.22 Type 2 diabetes mellitus with diabetic chronic kidney disease; Z79.01 Long term (current) use of anticoagulants; Z79.84 Long term (current) use of oral hypoglycemic drugs; I16.0 Hypertensive urgency; I25.10 Atherosclerotic heart disease of native coronary artery without angina pectoris; I48.91 Unspecified atrial fibrillation; E83.42 Hypomagnesemia; E66.01 Morbid (severe) obesity due to excess calories; E03.9 Hypothyroidism, unspecified; Z95.5 Presence of coronary angioplasty implant and graft; Z86.711 Personal history of pulmonary embolism; Z79.890 Hormone replacement therapy; Z68.39 Body mass index [BMI] 39.0-39.9, adult
CPT/HCPCS: 36415; 71045; 80048; 80053; 80061; 81001; 82948; 83735; 83880; 84100; 84443; 84484; 85025; 87086; 90662; 93005; 94761; J0360; J0696; J1938; J3475